=== PATIENT | male | born 1970 | race Caucasian/White ===

== ENCOUNTER 2016-05-06 10:35 | Outpatient (RCR) | payer MEDICARE, MEDICAID ==
[2016-02-12 11:25] LABS: BASOPHILS % (AUTO) 0 % (0-10); EOSINOPHILS # (AUTO) 0.2 10^3/uL (0.0-0.3); EOSINOPHILS % (AUTO) 3 % (0-10); LYMPHOCYTES # (AUTO) 0.3 X 10^3 (1.0-4.0); LYMPHOCYTES % (AUTO) 5 % (12-44); MEAN CORPUSCULAR HEMOGLOBIN 29 PG (25-34); MEAN CORPUSCULAR HGB CONC 32 G/DL (32-36); MEAN CORPUSCULAR VOLUME 90 FL (80-99); MEAN PLATELET VOLUME 10.4 FL (7.4-10.4); MONOCYTES # (AUTO) 0.4 X 10^3 (0.0-1.0); MONOCYTES % (AUTO) 6 % (0-12); NEUTROPHILS % (AUTO) 86 % (42-75); PLATELET COUNT 205 10^3/uL (130-400); RED BLOOD COUNT 3.12 10^6/uL (4.35-5.85); WHITE BLOOD COUNT 5.8 10^3/uL (4.3-11.0)
[2016-02-19 12:23] LABS: BASOPHILS % (AUTO) 0 % (0-10); EOSINOPHILS # (AUTO) 0.2 10^3/uL (0.0-0.3); EOSINOPHILS % (AUTO) 5 % (0-10); LYMPHOCYTES # (AUTO) 0.7 X 10^3 (1.0-4.0); LYMPHOCYTES % (AUTO) 15 % (12-44); MEAN CORPUSCULAR HEMOGLOBIN 29 PG (25-34); MEAN CORPUSCULAR HGB CONC 32 G/DL (32-36); MEAN CORPUSCULAR VOLUME 90 FL (80-99); MEAN PLATELET VOLUME 10.1 FL (7.4-10.4); MONOCYTES # (AUTO) 0.5 X 10^3 (0.0-1.0); MONOCYTES % (AUTO) 11 % (0-12); NEUTROPHILS # (AUTO) 3.3 X 10^3 (1.8-7.8); NEUTROPHILS % (AUTO) 68 % (42-75); PLATELET COUNT 214 10^3/uL (130-400); RED BLOOD COUNT 3.45 10^6/uL (4.35-5.85); RED CELL DISTRIBUTION WIDTH 15.7 % (10.0-14.5); WHITE BLOOD COUNT 4.8 10^3/uL (4.3-11.0)
[2016-02-26 13:42] LABS: BASOPHILS % (AUTO) 0 % (0-10); EOSINOPHILS # (AUTO) 0.2 10^3/uL (0.0-0.3); EOSINOPHILS % (AUTO) 4 % (0-10); LYMPHOCYTES # (AUTO) 0.6 X 10^3 (1.0-4.0); LYMPHOCYTES % (AUTO) 13 % (12-44); MEAN CORPUSCULAR HEMOGLOBIN 29 PG (25-34); MEAN CORPUSCULAR HGB CONC 32 G/DL (32-36); MEAN CORPUSCULAR VOLUME 90 FL (80-99); MEAN PLATELET VOLUME 10.8 FL (7.4-10.4); MONOCYTES # (AUTO) 0.5 X 10^3 (0.0-1.0); MONOCYTES % (AUTO) 11 % (0-12); NEUTROPHILS # (AUTO) 3.4 X 10^3 (1.8-7.8); NEUTROPHILS % (AUTO) 72 % (42-75); PLATELET COUNT 213 10^3/uL (130-400); RED BLOOD COUNT 3.52 10^6/uL (4.35-5.85); RED CELL DISTRIBUTION WIDTH 15.5 % (10.0-14.5); WHITE BLOOD COUNT 4.7 10^3/uL (4.3-11.0)
[2016-03-04 11:39] LABS: BASOPHILS % (AUTO) 1 % (0-10); EOSINOPHILS # (AUTO) 0.2 10^3/uL (0.0-0.3); EOSINOPHILS % (AUTO) 5 % (0-10); LYMPHOCYTES # (AUTO) 0.6 X 10^3 (1.0-4.0); LYMPHOCYTES % (AUTO) 13 % (12-44); MEAN CORPUSCULAR HEMOGLOBIN 29 PG (25-34); MEAN CORPUSCULAR HGB CONC 32 G/DL (32-36); MEAN CORPUSCULAR VOLUME 89 FL (80-99); MEAN PLATELET VOLUME 10.3 FL (7.4-10.4); MONOCYTES # (AUTO) 0.5 X 10^3 (0.0-1.0); MONOCYTES % (AUTO) 11 % (0-12); NEUTROPHILS % (AUTO) 71 % (42-75); PLATELET COUNT 206 10^3/uL (130-400); RED BLOOD COUNT 3.75 10^6/uL (4.35-5.85); RED CELL DISTRIBUTION WIDTH 14.9 % (10.0-14.5); WHITE BLOOD COUNT 4.3 10^3/uL (4.3-11.0)
[2016-03-11 13:05] LABS: BASOPHILS % (AUTO) 0 % (0-10); EOSINOPHILS # (AUTO) 0.2 10^3/uL (0.0-0.3); EOSINOPHILS % (AUTO) 4 % (0-10); LYMPHOCYTES # (AUTO) 0.6 X 10^3 (1.0-4.0); LYMPHOCYTES % (AUTO) 13 % (12-44); MEAN CORPUSCULAR HEMOGLOBIN 28 PG (25-34); MEAN CORPUSCULAR HGB CONC 32 G/DL (32-36); MEAN CORPUSCULAR VOLUME 89 FL (80-99); MEAN PLATELET VOLUME 10.5 FL (7.4-10.4); MONOCYTES # (AUTO) 0.5 X 10^3 (0.0-1.0); MONOCYTES % (AUTO) 11 % (0-12); NEUTROPHILS # (AUTO) 3.4 X 10^3 (1.8-7.8); NEUTROPHILS % (AUTO) 72 % (42-75); PLATELET COUNT 220 10^3/uL (130-400); RED BLOOD COUNT 3.87 10^6/uL (4.35-5.85); RED CELL DISTRIBUTION WIDTH 14.9 % (10.0-14.5); RETICULOCYTE % 2.79 % (0.50-2.40); WHITE BLOOD COUNT 4.8 10^3/uL (4.3-11.0)
[2016-03-11 13:36] LABS: ALBUMIN 3.6 G/DL (3.2-4.5); BILIRUBIN,TOTAL 0.4 MG/DL (0.1-1.0); CALCIUM 8.7 MG/DL (8.5-10.1); CREATININE SERUM 3.41 MG/DL (0.60-1.30); POTASSIUM 3.4 MMOL/L (3.6-5.0)
[2016-03-18 12:26] LABS: BASOPHILS % (AUTO) 0 % (0-10); EOSINOPHILS # (AUTO) 0.2 10^3/uL (0.0-0.3); EOSINOPHILS % (AUTO) 3 % (0-10); LYMPHOCYTES # (AUTO) 0.7 X 10^3 (1.0-4.0); LYMPHOCYTES % (AUTO) 14 % (12-44); MEAN CORPUSCULAR HEMOGLOBIN 29 PG (25-34); MEAN CORPUSCULAR HGB CONC 33 G/DL (32-36); MEAN CORPUSCULAR VOLUME 89 FL (80-99); MEAN PLATELET VOLUME 10.4 FL (7.4-10.4); MONOCYTES # (AUTO) 0.6 X 10^3 (0.0-1.0); MONOCYTES % (AUTO) 13 % (0-12); NEUTROPHILS # (AUTO) 3.4 X 10^3 (1.8-7.8); NEUTROPHILS % (AUTO) 70 % (42-75); PLATELET COUNT 175 10^3/uL (130-400); RED BLOOD COUNT 3.65 10^6/uL (4.35-5.85); RED CELL DISTRIBUTION WIDTH 14.3 % (10.0-14.5); WHITE BLOOD COUNT 4.8 10^3/uL (4.3-11.0)
[2016-03-25 14:28] LABS: BASOPHILS % (AUTO) 0 % (0-10); EOSINOPHILS # (AUTO) 0.2 10^3/uL (0.0-0.3); EOSINOPHILS % (AUTO) 4 % (0-10); LYMPHOCYTES # (AUTO) 0.9 X 10^3 (1.0-4.0); LYMPHOCYTES % (AUTO) 18 % (12-44); MEAN CORPUSCULAR HEMOGLOBIN 29 PG (25-34); MEAN CORPUSCULAR HGB CONC 32 G/DL (32-36); MEAN CORPUSCULAR VOLUME 88 FL (80-99); MEAN PLATELET VOLUME 10.1 FL (7.4-10.4); MONOCYTES # (AUTO) 0.8 X 10^3 (0.0-1.0); MONOCYTES % (AUTO) 16 % (0-12); NEUTROPHILS # (AUTO) 3.2 X 10^3 (1.8-7.8); NEUTROPHILS % (AUTO) 62 % (42-75); PLATELET COUNT 235 10^3/uL (130-400); RED BLOOD COUNT 3.96 10^6/uL (4.35-5.85); RED CELL DISTRIBUTION WIDTH 14.3 % (10.0-14.5); WHITE BLOOD COUNT 5.1 10^3/uL (4.3-11.0)
[2016-03-31 14:23] LABS: BASOPHILS % (AUTO) 0 % (0-10); EOSINOPHILS # (AUTO) 0.2 10^3/uL (0.0-0.3); EOSINOPHILS % (AUTO) 4 % (0-10); LYMPHOCYTES # (AUTO) 0.8 X 10^3 (1.0-4.0); LYMPHOCYTES % (AUTO) 13 % (12-44); MEAN CORPUSCULAR HEMOGLOBIN 29 PG (25-34); MEAN CORPUSCULAR HGB CONC 33 G/DL (32-36); MEAN CORPUSCULAR VOLUME 87 FL (80-99); MEAN PLATELET VOLUME 10.3 FL (7.4-10.4); MONOCYTES # (AUTO) 0.5 X 10^3 (0.0-1.0); MONOCYTES % (AUTO) 9 % (0-12); NEUTROPHILS # (AUTO) 4.2 X 10^3 (1.8-7.8); NEUTROPHILS % (AUTO) 73 % (42-75); PLATELET COUNT 202 10^3/uL (130-400); RED BLOOD COUNT 3.99 10^6/uL (4.35-5.85); RED CELL DISTRIBUTION WIDTH 14.5 % (10.0-14.5); WHITE BLOOD COUNT 5.7 10^3/uL (4.3-11.0)
[2016-04-08 12:30] LABS: BASOPHILS % (AUTO) 1 % (0-10); EOSINOPHILS # (AUTO) 0.1 10^3/uL (0.0-0.3); EOSINOPHILS % (AUTO) 3 % (0-10); LYMPHOCYTES # (AUTO) 0.7 X 10^3 (1.0-4.0); LYMPHOCYTES % (AUTO) 17 % (12-44); MEAN CORPUSCULAR HEMOGLOBIN 29 PG (25-34); MEAN CORPUSCULAR HGB CONC 34 G/DL (32-36); MEAN CORPUSCULAR VOLUME 85 FL (80-99); MEAN PLATELET VOLUME 10.9 FL (7.4-10.4); MONOCYTES # (AUTO) 0.6 X 10^3 (0.0-1.0); MONOCYTES % (AUTO) 14 % (0-12); NEUTROPHILS # (AUTO) 2.8 X 10^3 (1.8-7.8); NEUTROPHILS % (AUTO) 66 % (42-75); PLATELET COUNT 184 10^3/uL (130-400); RED BLOOD COUNT 4.34 10^6/uL (4.35-5.85); RED CELL DISTRIBUTION WIDTH 13.6 % (10.0-14.5); WHITE BLOOD COUNT 4.3 10^3/uL (4.3-11.0)
[2016-04-15 09:00] LABS: BASOPHILS % (AUTO) 0 % (0-10); EOSINOPHILS # (AUTO) 0.1 10^3/uL (0.0-0.3); EOSINOPHILS % (AUTO) 2 % (0-10); LYMPHOCYTES # (AUTO) 0.6 X 10^3 (1.0-4.0); LYMPHOCYTES % (AUTO) 13 % (12-44); MEAN CORPUSCULAR HEMOGLOBIN 29 PG (25-34); MEAN CORPUSCULAR HGB CONC 33 G/DL (32-36); MEAN CORPUSCULAR VOLUME 86 FL (80-99); MONOCYTES # (AUTO) 0.6 X 10^3 (0.0-1.0); MONOCYTES % (AUTO) 12 % (0-12); NEUTROPHILS # (AUTO) 3.5 X 10^3 (1.8-7.8); NEUTROPHILS % (AUTO) 73 % (42-75); PLATELET COUNT 189 10^3/uL (130-400); RED CELL DISTRIBUTION WIDTH 13.4 % (10.0-14.5); WHITE BLOOD COUNT 4.8 10^3/uL (4.3-11.0)
[2016-04-22 12:24] LABS: BASOPHILS % (AUTO) 0 % (0-10); EOSINOPHILS # (AUTO) 0.3 10^3/uL (0.0-0.3); EOSINOPHILS % (AUTO) 5 % (0-10); LYMPHOCYTES # (AUTO) 0.6 X 10^3 (1.0-4.0); LYMPHOCYTES % (AUTO) 8 % (12-44); MEAN CORPUSCULAR HGB CONC 33 G/DL (32-36); MEAN CORPUSCULAR VOLUME 86 FL (80-99); MEAN PLATELET VOLUME 10.6 FL (7.4-10.4); MONOCYTES # (AUTO) 0.6 X 10^3 (0.0-1.0); MONOCYTES % (AUTO) 9 % (0-12); NEUTROPHILS # (AUTO) 5.3 X 10^3 (1.8-7.8); NEUTROPHILS % (AUTO) 78 % (42-75); PLATELET COUNT 173 10^3/uL (130-400); RED BLOOD COUNT 4.04 10^6/uL (4.35-5.85); RED CELL DISTRIBUTION WIDTH 13.4 % (10.0-14.5); WHITE BLOOD COUNT 6.8 10^3/uL (4.3-11.0)
[2016-04-22 12:25] LABS: MEAN CORPUSCULAR HEMOGLOBIN 28 PG (25-34)
[2016-04-29 08:57] LABS: BASOPHILS % (AUTO) 0 % (0-10); EOSINOPHILS # (AUTO) 0.2 10^3/uL (0.0-0.3); EOSINOPHILS % (AUTO) 4 % (0-10); LYMPHOCYTES # (AUTO) 0.6 X 10^3 (1.0-4.0); LYMPHOCYTES % (AUTO) 16 % (12-44); MEAN CORPUSCULAR HEMOGLOBIN 29 PG (25-34); MEAN CORPUSCULAR HGB CONC 33 G/DL (32-36); MEAN CORPUSCULAR VOLUME 87 FL (80-99); MEAN PLATELET VOLUME 11.6 FL (7.4-10.4); MONOCYTES # (AUTO) 0.3 X 10^3 (0.0-1.0); MONOCYTES % (AUTO) 8 % (0-12); NEUTROPHILS # (AUTO) 2.9 X 10^3 (1.8-7.8); NEUTROPHILS % (AUTO) 72 % (42-75); PLATELET COUNT 149 10^3/uL (130-400); RED BLOOD COUNT 3.59 10^6/uL (4.35-5.85); RED CELL DISTRIBUTION WIDTH 13.8 % (10.0-14.5)
[~2016-05-06 10:35] MED LIST: ACID1TAB PO; CITA20TA7 PO; DARBEPOETIN 40 MCG/ML (ARANESP) 1 ML VIAL SC SCH; DOCU100C37 PO; FURO-124 PO; GABA-488 PO; GUAI600T43 PO; HYDR-3731 PO; INSU100I14 SQ; INSU100I29 SQ; INSU100V SQ; INSU100V5 SQ; LEVO750T39 PO; LIDO700A6 TP; LORA0.5T PO; METO-270 PO; METO5TAB2 PO; MUPI22OI2 TOP; OMEP20CA12 PO; PREG75CA PO; SENN-20 PO; SENN-36 PO; SODI15OR PO; SUCR1TAB PO; TRAM50TA2 PO
[2016-05-06 10:49] LABS: BASOPHILS % (AUTO) 0 % (0-10); EOSINOPHILS # (AUTO) 0.3 10^3/uL (0.0-0.3); EOSINOPHILS % (AUTO) 5 % (0-10); LYMPHOCYTES # (AUTO) 0.6 X 10^3 (1.0-4.0); LYMPHOCYTES % (AUTO) 11 % (12-44); MEAN CORPUSCULAR HEMOGLOBIN 29 PG (25-34); MEAN CORPUSCULAR HGB CONC 34 G/DL (32-36); MEAN CORPUSCULAR VOLUME 85 FL (80-99); MEAN PLATELET VOLUME 10.1 FL (7.4-10.4); MONOCYTES # (AUTO) 0.5 X 10^3 (0.0-1.0); MONOCYTES % (AUTO) 9 % (0-12); NEUTROPHILS # (AUTO) 4.2 X 10^3 (1.8-7.8); NEUTROPHILS % (AUTO) 74 % (42-75); PLATELET COUNT 199 10^3/uL (130-400); RED BLOOD COUNT 4.03 10^6/uL (4.35-5.85); RETICULOCYTE % 2.01 % (0.50-2.40); WHITE BLOOD COUNT 5.7 10^3/uL (4.3-11.0)
[2016-05-06 11:35] LABS: ALBUMIN 3.8 G/DL (3.2-4.5); BILIRUBIN,TOTAL 0.4 MG/DL (0.1-1.0); CALCIUM 8.6 MG/DL (8.5-10.1); CREATININE SERUM 5.52 MG/DL (0.60-1.30); POTASSIUM 3.9 MMOL/L (3.6-5.0); TOTAL PROTEIN 6.4 G/DL (6.4-8.2)
== END 2016-05-12 | disposition home or self-care (01) ==
LOC: ONC 10:35
PROVIDERS: ATTEND Internal Medicine Hematology & Oncology
DX: N18.3 Chronic kidney disease, stage 3 (moderate) (principal); D63.1 Anemia in chronic kidney disease; Z79.899 Other long term (current) drug therapy
CPT/HCPCS: 36415; 80053; 80069; 82728; 84100; 85025; 85045; 96372; 99213

== ENCOUNTER 2016-05-07 12:09 | Outpatient (RCR) | payer MEDICAID, MEDICARE ==
[2016-02-12 12:02] LABS: ALBUMIN 3.5 G/DL (3.2-4.5); CALCIUM 8.6 MG/DL (8.5-10.1); CREATININE SERUM 3.35 MG/DL (0.60-1.30); PHOSPHORUS 2.5 MG/DL (2.3-4.7); POTASSIUM 3.3 MMOL/L (3.6-5.0)
[2016-02-19 12:49] LABS: ALBUMIN 3.6 G/DL (3.2-4.5); CALCIUM 8.6 MG/DL (8.5-10.1); CREATININE SERUM 3.06 MG/DL (0.60-1.30); PHOSPHORUS 3.8 MG/DL (2.3-4.7); POTASSIUM 3.3 MMOL/L (3.6-5.0)
[2016-02-26 13:59] LABS: ALBUMIN 3.6 G/DL (3.2-4.5); CALCIUM 8.6 MG/DL (8.5-10.1); CREATININE SERUM 3.34 MG/DL (0.60-1.30); PHOSPHORUS 3.6 MG/DL (2.3-4.7); POTASSIUM 3.2 MMOL/L (3.6-5.0)
[2016-03-04 12:46] LABS: ALBUMIN 3.7 G/DL (3.2-4.5); CALCIUM 8.6 MG/DL (8.5-10.1); CREATININE SERUM 3.53 MG/DL (0.60-1.30); PHOSPHORUS 2.8 MG/DL (2.3-4.7); POTASSIUM 3.3 MMOL/L (3.6-5.0)
[2016-03-11 13:32] LABS: ALBUMIN 3.6 G/DL (3.2-4.5); CALCIUM 8.5 MG/DL (8.5-10.1); CREATININE SERUM 3.41 MG/DL (0.60-1.30); PHOSPHORUS 4.8 MG/DL (2.3-4.7); POTASSIUM 3.3 MMOL/L (3.6-5.0)
[2016-03-18 12:55] LABS: ALBUMIN 3.5 G/DL (3.2-4.5); CALCIUM 8.4 MG/DL (8.5-10.1); CREATININE SERUM 3.99 MG/DL (0.60-1.30); PHOSPHORUS 3.6 MG/DL (2.3-4.7); POTASSIUM 3.5 MMOL/L (3.6-5.0)
[2016-03-25 15:10] LABS: ALBUMIN 3.8 G/DL (3.2-4.5); CALCIUM 8.7 MG/DL (8.5-10.1); CREATININE SERUM 4.09 MG/DL (0.60-1.30); PHOSPHORUS 3.8 MG/DL (2.3-4.7); POTASSIUM 3.6 MMOL/L (3.6-5.0)
[2016-03-31 15:02] LABS: ALBUMIN 3.7 G/DL (3.2-4.5); CREATININE SERUM 5.24 MG/DL (0.60-1.30); PHOSPHORUS 3.8 MG/DL (2.3-4.7); POTASSIUM 3.9 MMOL/L (3.6-5.0)
[2016-04-08 12:53] LABS: ALBUMIN 3.8 G/DL (3.2-4.5); CALCIUM 8.7 MG/DL (8.5-10.1); CREATININE SERUM 4.45 MG/DL (0.60-1.30); PHOSPHORUS 3.5 MG/DL (2.3-4.7); POTASSIUM 3.6 MMOL/L (3.6-5.0)
[2016-04-15 09:43] LABS: ALBUMIN 3.8 G/DL (3.2-4.5); CALCIUM 8.9 MG/DL (8.5-10.1); CREATININE SERUM 4.64 MG/DL (0.60-1.30); PHOSPHORUS 3.5 MG/DL (2.3-4.7); POTASSIUM 3.8 MMOL/L (3.6-5.0)
[2016-04-22 13:40] LABS: ALBUMIN 3.7 G/DL (3.2-4.5); CALCIUM 8.4 MG/DL (8.5-10.1); CREATININE SERUM 3.35 MG/DL (0.60-1.30); PHOSPHORUS 3.1 MG/DL (2.3-4.7); POTASSIUM 3.6 MMOL/L (3.6-5.0)
[2016-04-29 09:14] LABS: ALBUMIN 3.5 G/DL (3.2-4.5); CALCIUM 8.2 MG/DL (8.5-10.1); CREATININE SERUM 6.22 MG/DL (0.60-1.30); PHOSPHORUS 5.1 MG/DL (2.3-4.7); POTASSIUM 4.7 MMOL/L (3.6-5.0)
[~2016-05-07 12:09] MED LIST changes: -DARBEPOETIN 40 MCG/ML (ARANESP) 1 ML VIAL SC SCH
== END 2016-05-12 | disposition home or self-care (01) ==
LOC: LAB 12:09
PROVIDERS: ATTEND Internal Medicine Nephrology
DX: N17.9 Acute kidney failure, unspecified (principal); N18.9 Chronic kidney disease, unspecified; E87.5 Hyperkalemia; R60.9 Edema, unspecified; R80.9 Proteinuria, unspecified
CPT/HCPCS: 36415; 80069; 84100

== ENCOUNTER 2016-06-11 02:45 | Outpatient (RCR) | payer MEDICARE, MEDICAID ==
[2016-05-14 14:56] LABS: ALBUMIN 3.7 G/DL (3.2-4.5); CALCIUM 8.8 MG/DL (8.5-10.1); CREATININE SERUM 5.35 MG/DL (0.60-1.30); PHOSPHORUS 4.4 MG/DL (2.3-4.7); POTASSIUM 3.7 MMOL/L (3.6-5.0)
[2016-05-28 11:56] LABS: ALBUMIN 3.4 G/DL (3.2-4.5); CALCIUM 8.3 MG/DL (8.5-10.1); CREATININE SERUM 6.51 MG/DL (0.60-1.30); PHOSPHORUS 4.9 MG/DL (2.3-4.7); POTASSIUM 3.6 MMOL/L (3.6-5.0)
[2016-06-11 11:32] LABS: ALBUMIN 3.3 G/DL (3.2-4.5); CREATININE SERUM 6.01 MG/DL (0.60-1.30); PHOSPHORUS 5.4 MG/DL (2.3-4.7)
[2016-06-11 11:38] LABS: POTASSIUM 4.1 MMOL/L (3.6-5.0)
== END 2016-07-02 11:05 | disposition home or self-care (01) ==
LOC: LAB 02:45
PROVIDERS: ATTEND Internal Medicine Nephrology
DX: N17.9 Acute kidney failure, unspecified (principal); N18.9 Chronic kidney disease, unspecified; E87.5 Hyperkalemia; R60.9 Edema, unspecified; R80.9 Proteinuria, unspecified
CPT/HCPCS: 36415; 80069

== ENCOUNTER 2016-07-01 13:21 | Outpatient (RCR) | payer MEDICARE, MEDICAID ==
[2016-05-14 14:38] LABS: BASOPHILS % (AUTO) 0 % (0-10); EOSINOPHILS # (AUTO) 0.1 10^3/uL (0.0-0.3); EOSINOPHILS % (AUTO) 2 % (0-10); LYMPHOCYTES # (AUTO) 0.5 X 10^3 (1.0-4.0); LYMPHOCYTES % (AUTO) 8 % (12-44); MEAN CORPUSCULAR HEMOGLOBIN 29 PG (25-34); MEAN CORPUSCULAR HGB CONC 35 G/DL (32-36); MEAN CORPUSCULAR VOLUME 83 FL (80-99); MEAN PLATELET VOLUME 11.6 FL (7.4-10.4); MONOCYTES # (AUTO) 0.6 X 10^3 (0.0-1.0); MONOCYTES % (AUTO) 9 % (0-12); NEUTROPHILS % (AUTO) 80 % (42-75); PLATELET COUNT 177 10^3/uL (130-400); RED CELL DISTRIBUTION WIDTH 14.6 % (10.0-14.5); WHITE BLOOD COUNT 6.2 10^3/uL (4.3-11.0)
[2016-05-28 11:17] LABS: BASOPHILS % (AUTO) 0 % (0-10); EOSINOPHILS # (AUTO) 0.1 10^3/uL (0.0-0.3); EOSINOPHILS % (AUTO) 2 % (0-10); LYMPHOCYTES % (AUTO) 14 % (12-44); MEAN CORPUSCULAR HEMOGLOBIN 29 PG (25-34); MEAN CORPUSCULAR HGB CONC 35 G/DL (32-36); MEAN CORPUSCULAR VOLUME 83 FL (80-99); MEAN PLATELET VOLUME 10.9 FL (7.4-10.4); MONOCYTES # (AUTO) 0.9 X 10^3 (0.0-1.0); MONOCYTES % (AUTO) 14 % (0-12); NEUTROPHILS # (AUTO) 4.6 X 10^3 (1.8-7.8); NEUTROPHILS % (AUTO) 69 % (42-75); PLATELET COUNT 241 10^3/uL (130-400); RED BLOOD COUNT 4.16 10^6/uL (4.35-5.85); RED CELL DISTRIBUTION WIDTH 14.9 % (10.0-14.5); WHITE BLOOD COUNT 6.6 10^3/uL (4.3-11.0)
[2016-06-11 10:48] LABS: BASOPHILS % (AUTO) 0 % (0-10); EOSINOPHILS # (AUTO) 0.2 10^3/uL (0.0-0.3); EOSINOPHILS % (AUTO) 3 % (0-10); LYMPHOCYTES # (AUTO) 0.8 X 10^3 (1.0-4.0); LYMPHOCYTES % (AUTO) 13 % (12-44); MEAN CORPUSCULAR HEMOGLOBIN 29 PG (25-34); MEAN CORPUSCULAR HGB CONC 35 G/DL (32-36); MEAN CORPUSCULAR VOLUME 83 FL (80-99); MEAN PLATELET VOLUME 11.3 FL (7.4-10.4); MONOCYTES # (AUTO) 0.7 X 10^3 (0.0-1.0); MONOCYTES % (AUTO) 12 % (0-12); NEUTROPHILS # (AUTO) 4.3 X 10^3 (1.8-7.8); NEUTROPHILS % (AUTO) 72 % (42-75); PLATELET COUNT 186 10^3/uL (130-400); RED BLOOD COUNT 3.88 10^6/uL (4.35-5.85); RED CELL DISTRIBUTION WIDTH 14.6 % (10.0-14.5); WHITE BLOOD COUNT 5.9 10^3/uL (4.3-11.0)
[~2016-07-01 13:21] MED LIST changes: +DARBEPOETIN 40 MCG/ML (ARANESP) 1 ML VIAL SC SCH
[2016-07-01 13:47] LABS: BASOPHILS % (AUTO) 0 % (0-10); EOSINOPHILS # (AUTO) 0.1 10^3/uL (0.0-0.3); EOSINOPHILS % (AUTO) 2 % (0-10); LYMPHOCYTES # (AUTO) 0.7 X 10^3 (1.0-4.0); LYMPHOCYTES % (AUTO) 10 % (12-44); MEAN CORPUSCULAR HEMOGLOBIN 29 PG (25-34); MEAN CORPUSCULAR HGB CONC 34 G/DL (32-36); MEAN CORPUSCULAR VOLUME 84 FL (80-99); MEAN PLATELET VOLUME 11.3 FL (7.4-10.4); MONOCYTES # (AUTO) 0.8 X 10^3 (0.0-1.0); MONOCYTES % (AUTO) 10 % (0-12); NEUTROPHILS # (AUTO) 5.8 X 10^3 (1.8-7.8); NEUTROPHILS % (AUTO) 78 % (42-75); PLATELET COUNT 229 10^3/uL (130-400); RED BLOOD COUNT 3.62 10^6/uL (4.35-5.85); RED CELL DISTRIBUTION WIDTH 14.9 % (10.0-14.5); WHITE BLOOD COUNT 7.4 10^3/uL (4.3-11.0)
== END 2016-08-12 | disposition home or self-care (01) ==
LOC: ONC 13:21
PROVIDERS: ATTEND Internal Medicine Hematology & Oncology
DX: N18.3 Chronic kidney disease, stage 3 (moderate) (principal); D63.1 Anemia in chronic kidney disease; Z79.899 Other long term (current) drug therapy
CPT/HCPCS: 36415; 80069; 85025; 96372

== ENCOUNTER → 2016-09-07 | Outpatient (CLI) | payer MEDICARE, MEDICAID ==
[~2016-09-07] MED LIST changes: -DARBEPOETIN 40 MCG/ML (ARANESP) 1 ML VIAL SC SCH
--- NOTE | 2016-09-07 11:38 | Diagnostic Imaging Report ---
PROCEDURE: MRI lumbar spine. TECHNIQUE: Multiplanar, multisequence MRI of the lumbar spine was performed without contrast. INDICATION: Low back pain. COMPARISON: None. FINDINGS: There are 5 lumbar-type vertebral bodies presumed for the purposes of this report. Normal alignment. Vertebral body heights are maintained. No abnormal bone marrow signal. No abnormal signal in the conus which terminates at L1. Normal configuration of the cauda equina. The visualized paravertebral soft tissues are unremarkable. Disc desiccation and Schmorl's nodes at L1-L2. The intervertebral discs are otherwise well preserved. There is no substantial spinal canal or lateral recess narrowing throughout the lumbar spine. Degenerative facet arthropathy contributes to moderate neuroforaminal narrowing on the right at L5-S1 and bilaterally at L4-L5. IMPRESSION: 1. Spondylotic changes, primarily facet arthropathy, result in moderate neuroforaminal narrowing at L4-L5 and L5-S1. 2. No substantial spinal canal or lateral recess narrowing. 3. No acute osseous findings in the lumbar spine. Dictated by: Dictated on workstation # [id number]
== END ==
LOC: RAD 10:19
PROVIDERS: ATTEND Nurse Practitioner Community Health
DX: M47.816 Spondylosis without myelopathy or radiculopathy, lumbar region (principal)
CPT/HCPCS: 72148

== ENCOUNTER 2017-06-07 18:18 | Emergency (ER) | payer MEDICARE, MEDICAID ==
[~2017-06-07] VITALS: Ht 167.6 cm; Wt 98.4 kg
[~2017-06-07 18:18] MED LIST changes: -METO-270 PO; +METO-387 PO
--- NOTE | 2017-06-07 19:38 | ED Upper Extremity ---
General Chief Complaint: Upper Extremity Stated Complaint: L WRIST/PALM INJ Nursing Triage Note: AMBLUATED TO ROOM 05. COMPLAINS OF LEFT WRIST PAIN AFTER FALLING 2 FEET OFF A LADDER ON TUESDAY. DENIES HITTING HEAD OR NECK PAIN. Nursing Sepsis Screen: No Definite Risk Source: patient Exam Limitations: no limitations History of Present Illness Date Seen by Provider: Jun 07, 2017 Time Seen by Provider: 19:36 Initial Comments To ER with left wrist pain. He fell 3 days ago off of a short ladder about 2 feet. States that he banged up his legs and arm but those have resolved and there is no residual pain. However, he did have some initial pain to the left wrist and that pain has actually gotten worse. He does have a bit of swelling over the volar ulnar side of the left wrist. He is also concerned because he has a maturing dialysis fistula in the left upper arm that has not yet been used but he wants to make sure this is okay and undamaged. No pain or injury to this area. Onset: other Severity: moderate Pain/Injury Location: left wrist Method of Injury: fell Modifying Factors: Worse With Movement Allergies and Home Medications Allergies Coded Allergies: codeine (Verified Allergy, Intermediate, NAUSEA, 04/27/15) pt states he has nausea and vomiting from Codeine Penicillins (Unverified Allergy, Mild, 04/24/15) hydrocodone (Verified Adverse Reaction, Unknown, NAUSEA, 11/22/15) oxycodone (Unverified Adverse Reaction, Unknown, 11/22/15) Home Medications Furosemide 40 Mg Tablet, 40 MG PO DAILY, (Reported) Insulin Aspart 300 Units/3 Ml Solution, 8 UNITS SQ 0800,1200, (Reported) BREAKFAST AND LUNCH Insulin Aspart 300 Units/3 Ml Solution, 7 UNITS SQ DAILY@1700, (Reported) Insulin Aspart 300 Units/3 Ml Solution, SQ SLIDING/SCALE, (Reported) USES IN ADDITION TO SCHEDULED DOSAGES AC 2 HOURS AFTER MEALS Insulin Detemir 100 Unit/1 Ml Insuln.pen, 14 UNIT SQ HS, (Reported) Insulin Detemir 100 Unit/1 Ml Insuln.pen, 6 UNIT SQ DAILY, (Reported) Metoprolol Succinate 25 Mg Tab.er.24h, 25 MG PO DAILY, #30 Ref 5 Prescribed by: SARI HARRELL on 11/25/15 1106 Omeprazole 20 Mg Capsule.dr, 20 MG PO DAILY, (Reported) Pregabalin 75 Mg Capsule, 75 MG PO TID, (Reported) Sodium Polystyrene Sulfonate 15 Gm/60 Ml Oral.susp, 15 GM PO DAILY, #1 Ref 0 Prescribed by: SARI HARRELL on 11/25/15 1106 Constitutional: see HPI EENTM: see HPI Respiratory: no symptoms reported Cardiovascular: no symptoms reported Genitourinary: no symptoms reported Skin: no symptoms reported Psychiatric/Neurological: No Symptoms Reported Past Mjojlba-Tuotmv-Fdnwup Hx Patient Social History Type Used: Cigarettes Former Smoker, Quit: Nov 23, 2003 Recent Foreign Travel: No Contact w/Someone Who Travel: No Recent Infectious Disease Expo: No Recent Hopitalizations: No Immunizations Up To Date Tetanus Booster (TDap): Less than 5yrs PED Vaccines UTD: Yes Date of Pneumonia Vaccine: May 25, 2015 Date of Influenza Vaccine: Apr 20, 2015 Surgeries History of Surgeries: Yes Surgeries: Abdominal, Gallbladder, Orthopedic, Tonsillectomy, Tracheostomy, Vascular Surgery Respiratory History of Respiratory Disorde: Yes Respiratory Disorders: Pneumonia, Sleep Apnea Currently Using CPAP: Yes Cardiovascular History of Cardiac Disorders: Yes (NON-STEMI 02/2015 WITH MULTIORGAN FAILURE/ SHOCK FROM DKA/COMA) Cardiac Disorders: Chronic Edema/Swelling, Heart Murmur, Hypertension, Valvular Heart Disease Neurological History of Neurological Disord: Yes Neurological Disorders: Neuropathy Reproductive System Hx Reproductive Disorders: No Sexually Transmitted Disease: No HIV/AIDS: No Genitourinary Genitourinary Disorders: Bladder Infection, Renal Failure Gastrointestinal History of Gastrointestinal Di: Yes (+ HEMOCCULT DURING HOSPITALIZATION 02/2015 ) Gastrointestinal Disorders: Gastroesophageal Reflux, Pancreatitis, Ulcer Musculoskeletal History of Musculoskeletal Dis: Yes Musculoskeletal Disorders: Chronic Back Pain Endocrine History of Endocrine Disorders: Yes Endocrine Disorders: Diabetes, Insulin dep Cancer History of Cancer: No Psychosocial History of Psychiatric Problem: Yes Behavioral Health Disorders: Depression Integumentary History of Skin or Integumenta: No Blood Transfusions History of Blood Disorders: Yes (ANEMIA--S/P TRANSFUSION 02/2015) Adverse Reaction to a Blood Tr: No Family Medical History Family Medial History: FHx: emphysema 19 FATHER Physical Exam Vital Signs Vital Sign - Last 12Hours 06/07/17 18:23 Temp 98.0 Pulse 83 Resp 18 B/P (MAP) 133/80 (97) Pulse Ox 97 Capillary Refill : Less Than 3 Seconds General Appearance: WD/WN, no apparent distress HEENT: PERRL/EOMI, normal ENT inspection Neck: non-tender, full range of motion Elbow/Forearm: normal inspection, non-tender, Left (on the left upper arm proximal to the elbow there is a fistula present with palpable thrill.) Wrist: Yes normal inspection, Yes non-tender Hand: normal inspection, non-tender Neurologic/Psychiatric: alert, normal mood/affect, oriented x 3 Skin: normal color, warm/dry Progress/Results/Core Measures Results/Orders My Orders Orders - OLIVIA ROBERTSON APRN Wrist, Left, 3 Views Or More (06/07/17 19:35) Vital Signs/I&O Vital Sign - Last 12Hours 06/07/17 18:23 Temp 98.0 Pulse 83 Resp 18 B/P (MAP) 133/80 (97) Pulse Ox 97 Blood Pressure Mean: 97 Departure Impression Impression: Primary Impression: Wrist sprain Disposition: 01 HOME, SELF-CARE Condition: Stable Departure-Patient Inst. Decision time for Depature: 19:38 Referrals: SARI HARRELL MD (PCP/Family) Primary Care Physician Patient Instructions: Wrist Sprain (DC) Add. Discharge Instructions: 1. Return to ER for any concerns 2. Follow-up with your doctor next week 3. All discharge instructions reviewed with patient and/or family. Voiced understanding. OLIVIA ROBERTSON APRN Jun 07, 2017 19:38
--- NOTE | 2017-06-07 20:01 | Diagnostic Imaging Report ---
INDICATION: Wrist pain after fall off of a ladder. COMPARISON: None available. TECHNIQUE: 3 views of the left wrist. FINDINGS: There is no acute fracture or traumatic malalignment. Joint spaces are well-maintained. Extensive vascular calcifications are noted. IMPRESSION: No acute fracture. However, if there remains severe pain and high clinical suspicion for fracture, consider conservative management and followup radiographs in 7-10 days. Dictated by: Dictated on workstation # [id number]
[2017-06-07 20:06] VITALS: BP 133/80
== END 2017-06-07 20:06 | disposition home or self-care (01) ==
LOC: EDUNIT# 18:18 → ER 18:19
DX: S63.501A Unspecified sprain of right wrist, initial encounter (principal); G47.30 Sleep apnea, unspecified; I25.2 Old myocardial infarction; I10 Essential (primary) hypertension; K21.9 Gastro-esophageal reflux disease without esophagitis; E11.9 Type 2 diabetes mellitus without complications; F32.9 Major depressive disorder, single episode, unspecified; Z87.19 Personal history of other diseases of the digestive system; Z87.448 Personal history of other diseases of urinary system; Z88.5 Allergy status to narcotic agent; Z88.0 Allergy status to penicillin; Z79.4 Long term (current) use of insulin; Z87.891 Personal history of nicotine dependence; Z90.89 Acquired absence of other organs; Z93.0 Tracheostomy status; Z87.01 Personal history of pneumonia (recurrent); W11.XXXA Fall on and from ladder, initial encounter
CPT/HCPCS: 73110; 99282

== ENCOUNTER 2017-10-14 18:21 | Inpatient (IN) | payer MEDICARE, MEDICAID ==
[~2017-10-14] VITALS: Ht 167.6 cm; Wt 91.4 kg
[~2017-10-14 18:21] MED LIST changes: -CITA20TA7 PO; +CITA20TA9 PO
[2017-10-14] MEDS ORDERED: BUME2TAB3 PO (19:46)
[2017-10-14] MEDS ORDERED: INSU100V16 (19:46)
[2017-10-14] MEDS ORDERED: TAMS0.4C2 PO (19:46)
[2017-10-14] MEDS ORDERED: TRAZ100T92 PO (19:46)
[2017-10-14] MEDS ORDERED: FLUO20CA25 PO (19:46)
[2017-10-14 21:16] LABS: BASOPHILS % (AUTO) 0 % (0-10); EOSINOPHILS # (AUTO) 0.1 10^3/uL (0.0-0.3); EOSINOPHILS % (AUTO) 1 % (0-10); HEMATOCRIT 31 % (40-54); HEMOGLOBIN 11.1 G/DL (13.3-17.7); LYMPHOCYTES # (AUTO) 0.5 X 10^3 (1.0-4.0); LYMPHOCYTES % (AUTO) 5 % (12-44); MEAN CORPUSCULAR HEMOGLOBIN 32 PG (25-34); MEAN CORPUSCULAR HGB CONC 36 G/DL (32-36); MEAN CORPUSCULAR VOLUME 88 FL (80-99); MEAN PLATELET VOLUME 11.6 FL (7.4-10.4); MONOCYTES # (AUTO) 1.2 X 10^3 (0.0-1.0); MONOCYTES % (AUTO) 10 % (0-12); NEUTROPHILS % (AUTO) 85 % (42-75); PLATELET COUNT 138 10^3/uL (130-400); RED BLOOD COUNT 3.52 10^6/uL (4.35-5.85); RED CELL DISTRIBUTION WIDTH 14.2 % (10.0-14.5); WHITE BLOOD COUNT 11.8 10^3/uL (4.3-11.0)
[2017-10-14 21:37] LABS: INR 1.1 (0.8-1.4)
[2017-10-14 21:39] LABS: ALBUMIN 3.8 GM/DL (3.2-4.5); BAND NEUTROPHILS 3 %; BASOPHILS % (MANUAL) 0 %; BILIRUBIN,TOTAL 0.5 MG/DL (0.1-1.0); CALCIUM 10.3 MG/DL (8.5-10.1); CREATININE SERUM 5.28 MG/DL (0.60-1.30); EOSINOPHILS % (MANUAL) 0 %; ERYTHROCYTE SEDIMENTATION RATE 34 MM/HR (0-15); LYMPHOCYTES % (MANUAL) 2 %; MONOCYTES % (MANUAL) 8 %; NEUTROPHILS % (MANUAL) 87 %; POTASSIUM 3.1 MMOL/L (3.6-5.0); RBC MORPH NORMAL; TOTAL PROTEIN 6.8 GM/DL (6.4-8.2)
--- NOTE | 2017-10-14 22:10 | Diagnostic Imaging Report ---
PROCEDURE: CT left lower extremity without contrast. TECHNIQUE: Multiple contiguous axial images were obtained through the left lower extremity without the use of intravenous contrast. Sagittal and coronal reformations were then performed. INDICATION: Wound on bottom of left foot. History of end-stage renal disease on dialysis along with neuropathy. There is rather pronounced generalized edema about the soft tissues of the foot and ankle. Definitive well encapsulated fluid collection could not be demonstrated on noncontrast imaging. There is slightly more focal edema suggested at the plantar aspect of the region of the great toe. The osseous structures demonstrate no acute bony abnormality. No carlin erosive or destructive changes. Vascular calcification is present. IMPRESSION: Rather diffuse edema about the visualized soft tissues. Definitive large encapsulated drainable abscess is not suggested. No carlin bony destructive type change. However, MRI would be a more sensitive method for assessment of potential underlying osteomyelitis, if warranted. Dictated by: Dictated on workstation # [id number]
[2017-10-14] MEDS ORDERED: fentaNYL INJECTION 100 MCG/2 ML AMP IVP STA (22:27)
[2017-10-14] MEDS ORDERED: VANCOMYCIN INJECTION 1,000 MG in NS (IVPB) 250 ML IV ONE (22:30)
--- NOTE | 2017-10-14 22:33 | Diagnostic Imaging Report ---
INDICATION: Wound on bottom of foot. End-stage renal disease. TECHNIQUE: 3 views of the left foot CORRELATION STUDY: None FINDINGS: There is rather prominent soft tissue swelling present. Vascular calcifications. No acute bony abnormality or carlin bony destructive type change. Prominent calcaneal spur formation. IMPRESSION: 1. Negative for acute findings of the foot. No carlin bony destructive type change. Soft tissue swelling. Dictated by: Dictated on workstation # [id number]
[2017-10-15] VITALS: BP 125/64
[2017-10-15] MEDS: fentaNYL INJECTION 100 MCG/2 ML AMP IV PRN ×6 (03:04→21:07)
[2017-10-15 04:00] VITALS: BP 123/65
[2017-10-15] MEDS: inSUlin ASPART (NovoLOG) 1 UNIT/0.01 ML (CHARGE PER UNIT) SC SCH ×4 (06:17→20:59)
[2017-10-15 06:50] LABS: BASOPHILS % (AUTO) 0 % (0-10); EOSINOPHILS # (AUTO) 0.1 10^3/uL (0.0-0.3); EOSINOPHILS % (AUTO) 2 % (0-10); HEMATOCRIT 30 % (40-54); HEMOGLOBIN 10.5 G/DL (13.3-17.7); LYMPHOCYTES # (AUTO) 0.7 X 10^3 (1.0-4.0); LYMPHOCYTES % (AUTO) 9 % (12-44); MEAN CORPUSCULAR HEMOGLOBIN 31 PG (25-34); MEAN CORPUSCULAR HGB CONC 35 G/DL (32-36); MEAN CORPUSCULAR VOLUME 89 FL (80-99); MEAN PLATELET VOLUME 12.4 FL (7.4-10.4); MONOCYTES # (AUTO) 1.1 X 10^3 (0.0-1.0); MONOCYTES % (AUTO) 14 % (0-12); NEUTROPHILS % (AUTO) 75 % (42-75); PLATELET COUNT 140 10^3/uL (130-400); RED BLOOD COUNT 3.41 10^6/uL (4.35-5.85); RED CELL DISTRIBUTION WIDTH 14.5 % (10.0-14.5); WHITE BLOOD COUNT 7.9 10^3/uL (4.3-11.0)
[2017-10-15 07:17] LABS: ALBUMIN 3.4 GM/DL (3.2-4.5); BILIRUBIN,TOTAL 0.4 MG/DL (0.1-1.0); CALCIUM 9.7 MG/DL (8.5-10.1); CREATININE SERUM 5.81 MG/DL (0.60-1.30); TOTAL PROTEIN 6.2 GM/DL (6.4-8.2)
[2017-10-15 08:00] VITALS: BP 122/66
--- NOTE | 2017-10-15 08:58 | History & Physicial (CHS) ---
HPI History of Present Illness: 7-year-old male presents to the emergency room during the evening of October 14, 2017 with what he describes as worsening pain to the left foot. He had seen podiatry the day prior to presenting to the emergency department. Apparently he was started on an oral antibiotic but he did not remember which one. He states the pain became fairly intense he rates it an 8/10 on a pain scale. He has known kidney failure and does utilize home hemodialysis Tuesday through Tuesday. He is under the care of a mail manager through [facility]. Source: patient Exam Limitations: no limitations Date seen by provider: Oct 15, 2017 Time Seen by Provider: 06:50 Attending Physician Shine Renee MD PCP Dania Barksdale MD Consult Date of Admission Oct 14, 2017 at 22:15 Home Medications Home Medications Reviewed patient Home Medication Reconciliation performed by pharmacy medication reconciliations ag equipment field service technician and/or nursing. Patients Allergies have been reviewed. Allergies Coded Allergies: codeine (Verified Allergy, Intermediate, NAUSEA, 04/27/15) pt states he has nausea and vomiting from Codeine Penicillins (Unverified Allergy, Mild, 04/24/15) hydrocodone (Verified Adverse Reaction, Unknown, NAUSEA, 11/22/15) oxycodone (Unverified Adverse Reaction, Unknown, 11/22/15) QHX-Jvthdk-Pwhshd Hx Patient Social History Marrital Status: Alcohol Use: Denies Use Recreational Drug Use: No Smoking Status: Never a Smoker Former smoker/When Quit: May 09, 2001 Type Used: Cigarettes Recent Foreign Travel: No Contact w/other who traveled: No Recent Hopitalizations: No Recent Infectious Disease Expo: No Physical Abuse Screen: No Sexual Abuse: No Immunizations Up To Date Tetanus Booster (TDap): Less than 5yrs Date of Pneumonia Vaccine: May 25, 2015 Date of Influenza Vaccine: Apr 20, 2015 Family Medical History Family History: FHx: emphysema 19 FATHER Review of Systems ([facility]) Constitutional: see HPI Reviewed Test Results Reviewed Test Results Lab Laboratory Tests Test 10/14/17 21:09 10/14/17 21:20 10/15/17 05:25 10/15/17 06:15 Range/Units White Blood Count 11.8 H 7.9 4.3-11.0 10^3/uL Red Blood Count 3.52 L 3.41 L 4.35-5.85 10^6/uL Hemoglobin 11.1 L 10.5 L 13.3-17.7 G/DL Hematocrit 31 L 30 L 40-54 % Mean Corpuscular Volume 88 89 80-99 FL Mean Corpuscular Hemoglobin 32 31 25-34 PG Mean Corpuscular Hemoglobin Concent 36 35 32-36 G/DL Red Cell Distribution Width 14.2 14.5 10.0-14.5 % Platelet Count 138 140 130-400 10^3/uL Mean Platelet Volume 11.6 H 12.4 H 7.4-10.4 FL Neutrophils (%) (Auto) 85 H 75 42-75 % Lymphocytes (%) (Auto) 5 L 9 L 12-44 % Monocytes (%) (Auto) 10 14 H 0-12 % Eosinophils (%) (Auto) 1 2 0-10 % Basophils (%) (Auto) 0 0 0-10 % Neutrophils # (Auto) 10.0 H 6.0 1.8-7.8 X 10^3 Lymphocytes # (Auto) 0.5 L 0.7 L 1.0-4.0 X 10^3 Monocytes # (Auto) 1.2 H 1.1 H 0.0-1.0 X 10^3 Eosinophils # (Auto) 0.1 0.1 0.0-0.3 10^3/uL Basophils # (Auto) 0.0 0.0 0.0-0.1 10^3/uL Neutrophils % (Manual) 87 % Lymphocytes % (Manual) 2 % Monocytes % (Manual) 8 % Eosinophils % (Manual) 0 % Basophils % (Manual) 0 % Band Neutrophils 3 % Blood Morphology Comment NORMAL Erythrocyte Sedimentation Rate 34 H 0-15 MM/HR Prothrombin Time 14.0 12.2-14.7 SEC INR Comment 1.1 0.8-1.4 Activated Partial Thromboplast Time 49 H 24-35 SEC Sodium Level 132 L 133 L 135-145 MMOL/L Potassium Level 3.1 L 3.0 L 3.6-5.0 MMOL/L Chloride Level 92 L 94 L 98-107 MMOL/L Carbon Dioxide Level 26 26 21-32 MMOL/L Anion Gap 14 13 5-14 MMOL/L Blood Urea Nitrogen 31 H 36 H 7-18 MG/DL Creatinine 5.28 H 5.81 #H 0.60-1.30 MG/DL Estimat Glomerular Filtration Rate 12 11 BUN/Creatinine Ratio 6 6 Glucose Level 193 H 174 H 70-105 MG/DL Calcium Level 10.3 H 9.7 8.5-10.1 MG/DL Total Bilirubin 0.5 0.4 0.1-1.0 MG/DL Aspartate Amino Transf (AST/SGOT) 19 16 5-34 U/L Alanine Aminotransferase (ALT/SGPT) 17 15 0-55 U/L Alkaline Phosphatase 93 84 40-136 U/L C-Reactive Protein High Sensitivity 10.38 H 0.00-0.50 MG/DL Total Protein 6.8 6.2 L 6.4-8.2 GM/DL Albumin 3.8 3.4 3.2-4.5 GM/DL Lactic Acid Level 0.90 0.50-2.00 MMOL/L Glucometer 211 H 70-110 MG/DL Radiology NAME: VIRGINIA SORTO [facility] REC#: [id number] PT STATUS: REG ER : 1970 PHYSICIAN: ALYSIA EDWARDS DO ADMIT DATE: 10/14/17/ER Signed Date of Exam: 10/14/17 FOOT, LEFT, 3 VIEWS INDICATION: Wound on bottom of foot. End-stage renal disease. TECHNIQUE: 3 views of the left foot CORRELATION STUDY: None FINDINGS: There is rather prominent soft tissue swelling present. Vascular calcifications. No acute bony abnormality or carlin bony destructive type change. Prominent calcaneal spur formation. IMPRESSION: 1. Negative for acute findings of the foot. No carlin bony destructive type change. Soft tissue swelling. Dictated by: Dictated on workstation # [id number] Dict: 10/14/172219 Trans: 10/14/172229 Interpreted by: SHEY RAMIREZ DO Electronically signed by: SHEY RAMIREZ DO 10/14/172229 Physical Exam-([facility]) Physical Exam Vital Signs VS - Last 72 Hours, by Label 10/14/17 10/14/17 10/15/17 10/15/17 19:32 22:59 00:00 04:00 Temp 99.0 96.4 97.1 Pulse 87 81 86 70 Resp 18 18 20 B/P (MAP) 135/67 (89) 160/82 125/64 (84) 123/65 (84) Pulse Ox 94 96 92 96 O2 Delivery Room Air 10/15/17 08:05 O2 Delivery Nasal Cannula O2 Flow Rate 1.50 Capillary Refill : Less Than 3 Seconds General Appearance: mild distress (with movement of his left foot) HEENT: pharynx normal Neck: full range of motion Respiratory: lungs clear Cardiovascular: regular rate, rhythm Gastrointestinal: soft Rectal: deferred Extremities: swelling (noted to the distal half of the left foot. He also has erythema that would be described as moderate. Tenderness of the large toe He also has eraser head size ulcer at the plantar aspect over the distal first metatarsal region) Assessment/Plan Assessment/Plan Admission Dx 1. Cellulitis left foot 2. Insulin-dependent diabetes mellitus 3 Chronic renal failure--on hemodialysis 4. Diabetic foot ulcer Admission Status: Inpatient Order (span 2 midnights) Reason for Inpatient Admission: further antibiotics to improve the cellulitis of his left foot Assessment & Plan 1. Cellulitis left foot -patient to be admitted for IV vancomycin 2. Insulin-dependent diabetes mellitus -Patient be continued on his insulin medication and sliding scale as necessary 3 Chronic renal failure--on hemodialysis -I spoke with Mago who is nurse practitioner for his mail manager on the phone and his creatinine of 5 is fairly stable for him. 4. Diabetic foot ulcer -Wound care may be recommended outpatient Clinical Quality Measures DVT/VTE Risk/Contraindication: Risk Factor Score Per Nursin RFS Level Per Nursing on Admit: 3=High SHINE RENEE MD Oct 15, 2017 08:58
[2017-10-15] MEDS: FLUoxetine HCL 20 MG (PROzac) CAP PO SCH (10:24)
[2017-10-15] MEDS: PANTOPRAZOLE 20 MG TABLET (PROTONIX) PO SCH (10:24)
[2017-10-15] MEDS: BUMETANIDE 1 MG (BUMEX) TAB PO SCH ×2 (10:24→20:58)
[2017-10-15] MEDS: PREGABALIN 75 MG (LYRICA) CAP PO SCH ×3 (10:25→20:58)
[2017-10-15 11:04] VITALS: BP 147/69
[2017-10-15] MEDS ORDERED: ONDANSETRON 4 MG/2 ML (SDV) Z0FRAN ONE (11:45)
[2017-10-15 15:50] VITALS: BP 136/67
[2017-10-15] MEDS: TAMSULOSIN 0.4 MG (FLOMAX) CAP PO SCH (17:57)
[2017-10-15 19:15] VITALS: BP 137/63
[2017-10-15] MEDS ORDERED: TROUGH ORDER-PHARMACY XX NR (20:00)
[2017-10-15] MEDS: traZODone 100 MG (DESYREL) TAB PO SCH (20:58)
[2017-10-15] MEDS: VANCOMYCIN 1 GM/NS 250 ML IVPB IV SCH ×2 (20:59)
[2017-10-16] VITALS: BP 128/62
[2017-10-16] MEDS: fentaNYL INJECTION 100 MCG/2 ML AMP IV PRN ×6 (01:17→21:41)
[2017-10-16 06:01] LABS: BASOPHILS % (AUTO) 0 % (0-10); EOSINOPHILS # (AUTO) 0.1 10^3/uL (0.0-0.3); EOSINOPHILS % (AUTO) 2 % (0-10); HEMATOCRIT 28 % (40-54); LYMPHOCYTES # (AUTO) 0.6 X 10^3 (1.0-4.0); LYMPHOCYTES % (AUTO) 9 % (12-44); MEAN CORPUSCULAR HEMOGLOBIN 31 PG (25-34); MEAN CORPUSCULAR HGB CONC 35 G/DL (32-36); MEAN CORPUSCULAR VOLUME 89 FL (80-99); MONOCYTES # (AUTO) 0.8 X 10^3 (0.0-1.0); MONOCYTES % (AUTO) 12 % (0-12); NEUTROPHILS # (AUTO) 5.4 X 10^3 (1.8-7.8); NEUTROPHILS % (AUTO) 77 % (42-75); PLATELET COUNT 137 10^3/uL (130-400); RED BLOOD COUNT 3.18 10^6/uL (4.35-5.85); RED CELL DISTRIBUTION WIDTH 14.4 % (10.0-14.5); WHITE BLOOD COUNT 6.9 10^3/uL (4.3-11.0)
[2017-10-16 06:35] LABS: CALCIUM 9.6 MG/DL (8.5-10.1); CREATININE SERUM 7.15 MG/DL (0.60-1.30); POTASSIUM 3.3 MMOL/L (3.6-5.0)
[2017-10-16] MEDS: PANTOPRAZOLE 20 MG TABLET (PROTONIX) PO SCH (06:37)
[2017-10-16] MEDS: inSUlin ASPART (NovoLOG) 1 UNIT/0.01 ML (CHARGE PER UNIT) SC SCH ×4 (06:41→20:44)
[2017-10-16 08:00] VITALS: BP 165/78
--- NOTE | 2017-10-16 09:06 | Progress Note (SOAP) ---
Subjective Subjective/Events-last exam Patient reports he is a little tired this morning. This is fairly typical for him on a Tuesday since he doesn't usually do with hemodialysis until Tuesday. He reports his left foot is still a little tender but not worse than yesterday. Review of Systems Date Seen by Provider: Oct 16, 2017 Time Seen by Provider: 07:15 Focused Exam Lactate Level 10/14/17 21:20: Lactic Acid Level 0.90 Objective Exam Last Set of Vital Signs Vital Signs Date Time Temp Pulse Resp B/P (MAP) Pulse Ox O2 Delivery O2 Flow Rate FiO2 10/16/17 00:00 97.1 74 22 128/62 (84) 99 Room Air 10/15/17 08:05 1.50 Capillary Refill : Less Than 3 Seconds I&O Intake and Output 10/16/17 00:00 Intake Total 1040 ml Balance 1040 ml Intake Oral 790 ml IV Total 250 ml # Voids 5 # Bowel Movements 1 General: Alert, No Acute Distress Lungs: Clear to Auscultation Heart: Regular Rate Abdomen: Soft Extremities: No Tenderness/Swelling (No significant swelling of the lower extremities), Other (Erythema still noted to the left foot but only at the dorsal aspect just slightly above the second and third digit. The great toe appears to be slightly better with regards to erythema and swelling.) Skin: No Rashes Results/Procedures Lab Laboratory Tests 10/15/17 11:00: Glucometer 180H 10/15/17 15:54: Glucometer 76 10/15/17 19:59: Vancomycin Level Trough 16.1 10/15/17 21:32: Glucometer 148H 10/16/17 05:40: White Blood Count 6.9, Red Blood Count 3.18L, Hemoglobin 10.0L, Hematocrit 28L, Mean Corpuscular Volume 89, Mean Corpuscular Hemoglobin 31, Mean Corpuscular Hemoglobin Concent 35, Red Cell Distribution Width 14.4, Platelet Count 137, Mean Platelet Volume 12.0H, Neutrophils (%) (Auto) 77H, Lymphocytes (%) (Auto) 9L, Monocytes (%) (Auto) 12, Eosinophils (%) (Auto) 2, Basophils (%) (Auto) 0, Neutrophils # (Auto) 5.4, Lymphocytes # (Auto) 0.6L, Monocytes # (Auto) 0.8, Eosinophils # (Auto) 0.1, Basophils # (Auto) 0.0, Sodium Level 134L, Potassium Level 3.3L, Chloride Level 95L, Carbon Dioxide Level 24, Anion Gap 15H, Blood Urea Nitrogen 46H, Creatinine 7.15#H, Estimat Glomerular Filtration Rate 8, BUN/ Creatinine Ratio 6, Glucose Level 150H, Calcium Level 9.6 Microbiology 10/14/17 Blood Culture - Preliminary, Resulted No growth Radiology NAME: VIRGINIA SORTO [facility] REC#: [id number] PT STATUS: REG ER : 1970 PHYSICIAN: ALYSIA EDWARDS DO ADMIT DATE: 10/14/17/ER Signed Date of Exam: 10/14/17 FOOT, LEFT, 3 VIEWS INDICATION: Wound on bottom of foot. End-stage renal disease. TECHNIQUE: 3 views of the left foot CORRELATION STUDY: None FINDINGS: There is rather prominent soft tissue swelling present. Vascular calcifications. No acute bony abnormality or carlin bony destructive type change. Prominent calcaneal spur formation. IMPRESSION: 1. Negative for acute findings of the foot. No carlin bony destructive type change. Soft tissue swelling. Dictated by: Dictated on workstation # [id number] Dict: 10/14/172219 Trans: 10/14/172229 Interpreted by: SHEY RAMIREZ DO Electronically signed by: SHEY RAMIREZ DO 10/14/172229 Assessment/Plan Assessment/Plan Assessment & Plan 1. Cellulitis left foot -patient to be admitted for IV vancomycin 10/16: -Appears to be slightly improved -D2 of vancomycin 2. Insulin-dependent diabetes mellitus -Patient be continued on his insulin medication and sliding scale as necessary 3 Chronic renal failure--on hemodialysis -I spoke with Mago who is nurse practitioner for his application integration architect on the phone and his creatinine of 5 is fairly stable for him. 10/16: -Today I spoke with Mago regarding [place]'s creatinine of 7.15. With him being in a dialysis patient and not having significant fluid swelling he will be okay until tomorrow when he can have his home hemodialysis. If not dismissed he may possibly have passed to go home for hemodialysis. 4. Diabetic foot ulcer -Wound care may be recommended outpatient Clinical Quality Measures DVT/VTE Risk/Contraindication: Risk Factor Score Per Nursin RFS Level Per Nursing on Admit: 3=High ROXANNA RENEE MD Oct 16, 2017 09:06
[2017-10-16] MEDS: FLUoxetine HCL 20 MG (PROzac) CAP PO SCH (09:16)
[2017-10-16] MEDS: BUMETANIDE 1 MG (BUMEX) TAB PO SCH ×2 (09:16→20:08)
[2017-10-16] MEDS: PREGABALIN 75 MG (LYRICA) CAP PO SCH ×3 (09:16→20:08)
[2017-10-16 16:00] VITALS: BP 162/73
[2017-10-16] MEDS: TAMSULOSIN 0.4 MG (FLOMAX) CAP PO SCH (18:18)
[2017-10-16] MEDS ORDERED: TROUGH ORDER-PHARMACY XX NR (20:00)
[2017-10-16] MEDS: traZODone 100 MG (DESYREL) TAB PO SCH (20:08)
[2017-10-16] MEDS: VANCOMYCIN 1 GM/NS 250 ML IVPB IV SCH ×2 (20:39)
[2017-10-16 21:07] VITALS: BP 162/73
== END 2017-10-16 22:06 | disposition home or self-care (01) | DRG 602 ==
LOC: EDUNIT# 18:21 → ER 18:22 → 4TH 22:15
PROVIDERS: ADMIT Family Medicine; ATTEND Family Medicine
DX: L03.116 Cellulitis of left lower limb (principal); N18.6 End stage renal disease; E11.22 Type 2 diabetes mellitus with diabetic chronic kidney disease; E11.621 Type 2 diabetes mellitus with foot ulcer; L97.529 Non-pressure chronic ulcer of other part of left foot with unspecified severity; Z99.2 Dependence on renal dialysis; Z79.4 Long term (current) use of insulin; Z87.891 Personal history of nicotine dependence
CPT/HCPCS: 36415; 73630; 73700; 80048; 80053; 80202; 82962; 83605; 85007; 85025; 85027; 85610; 85652; 85730; 86141; 87040; 96374; 96375

== ENCOUNTER 2018-11-01 19:49 | Outpatient (CLI) | payer MEDICARE, MEDICAID ==
[~2018-11-01 19:49] MED LIST changes: +BUME2TAB3 PO; +FLUO20CA25 PO; +INSU100V16; +TAMS0.4C2 PO; +TRAZ-190 PO
== END 2018-11-02 06:31 | disposition home or self-care (01) ==
LOC: SLEEP 19:49
PROVIDERS: ATTEND Nurse Practitioner Family
DX: G47.33 Obstructive sleep apnea (adult) (pediatric) (principal); R09.02 Hypoxemia
CPT/HCPCS: 95811

== ENCOUNTER → 2018-12-07 | Outpatient (CLI) | payer MEDICARE, MEDICAID ==
[~2018-12-07] MED LIST changes: -BUME2TAB3 PO; +BUME2TAB7 PO; -OMEP20CA12 PO; +OMEP20CA13 PO; +RT-ALBUTEROL SULF 2.5 MG/3 ML PRE-MIX VIAL INH ONE
== END ==
LOC: RT 11:54
PROVIDERS: ATTEND Nurse Practitioner Family
DX: J98.4 Other disorders of lung (principal); G47.33 Obstructive sleep apnea (adult) (pediatric); G47.36 Sleep related hypoventilation in conditions classified elsewhere; N18.6 End stage renal disease
CPT/HCPCS: 94060; 94640; 94726; 94729

== ENCOUNTER → 2019-07-10 | Outpatient (CLI) | payer MEDICARE, MEDICAID ==
[~2019-07-10] MED LIST changes: -FLUO20CA25 PO; +FLUO20CA46 PO; -METO-387 PO; +MTP25TSR PO; -OMEP20CA13 PO; +OMEP20CA18 PO; -RT-ALBUTEROL SULF 2.5 MG/3 ML PRE-MIX VIAL INH ONE; -TRAM50TA2 PO; -TRAZ-190 PO; +TRAZ-227 PO; +TRM50T PO
== END | disposition home or self-care (01) ==
LOC: PREOP 05:52
PROVIDERS: ATTEND Specialist
DX: Z01.818 Encounter for other preprocedural examination (principal)

== ENCOUNTER → 2019-07-23 | Outpatient (CLI) | payer MEDICARE, MEDICAID ==
--- NOTE | 2019-07-23 12:24 | Diagnostic Imaging Report ---
INDICATION: Dyspnea. Comparison is made to study of 04/19/2016. FINDINGS: Overall heart size and pulmonary vascularity are within normal limits. Linear atelectasis and/or scarring in the left lung is noted in the lower half. There is no evidence of significant pleural fluid. IMPRESSION: Mild linear atelectasis and/or scarring in the lower half of the left lung without other evidence of acute abnormality. Dictated by: Dictated on workstation # [id number]
== END ==
LOC: RAD 10:39
PROVIDERS: ATTEND Nurse Practitioner Family
DX: R06.00 Dyspnea, unspecified (principal); R91.8 Other nonspecific abnormal finding of lung field
CPT/HCPCS: 71046

== ENCOUNTER → 2019-07-26 | Outpatient (CLI) | payer MEDICARE, MEDICAID ==
--- NOTE | 2019-07-26 08:48 | Diagnostic Imaging Report ---
EXAMINATION: CT Chest without contrast. TECHNIQUE: Multiple contiguous axial images were obtained through the chest without the use of intravenous contrast. All CT scans use one or more of the following dose optimizing techniques: automated exposure control, MA and/or KvP adjustment based on a patient size and exam type, or iterative reconstruction. HISTORY: Dyspnea. COMPARISON: 05/23/2015. FINDINGS: There is no edema or pneumonia. No pleural effusion. No pneumothorax. No suspicious nodules. There is mild atelectasis in the lung bases. Heart size is normal. There are mild coronary artery calcifications. No pericardial effusion. Aorta is normal in caliber. There is no axillary or supraclavicular lymphadenopathy. There is no mediastinal lymphadenopathy. There are prominent subcentimeter mediastinal lymph nodes but none are pathologically enlarged. There is differential attenuation of the myocardium and blood pool, suggestive of anemia. Mild gynecomastia is noted. Limited views of the upper abdomen show an absent gallbladder. There are no suspicious osseus lesions IMPRESSION: 1. Minimal atelectasis in the lung bases which are otherwise clear. 2. Differential attenuation of the myocardium and blood pool, suggestive of anemia. Dictated by: Dictated on workstation # [id number]
== END ==
LOC: RAD 07:57
PROVIDERS: ATTEND Nurse Practitioner Family
DX: J98.4 Other disorders of lung (principal); G47.33 Obstructive sleep apnea (adult) (pediatric); G47.36 Sleep related hypoventilation in conditions classified elsewhere; R06.00 Dyspnea, unspecified; Z94.0 Kidney transplant status
CPT/HCPCS: 71250

== ENCOUNTER 2019-09-24 09:42 | Outpatient (RCR) | payer MEDICARE, MEDICAID ==
[~2019-09-24] VITALS: Ht 167.7 cm; Wt 90.9 kg
[~2019-09-24 09:42] MED LIST changes: +ASPI-586 PO; +ERGO50006 PO; +FLUO40CA PO; +METO-333 PO; +MYCO180T PO; +NFVALG450T PO; +NYST1000 PO; +OMEP40CA27 PO; +POLY119P5 PO; +PRED5TAB PO; +SULF1TAB34 PO; +TACR1CAP24 PO; +TMSL.4C PO
== END 2019-09-24 15:08 | disposition home or self-care (01) ==
LOC: PREOP 09:42
PROVIDERS: ATTEND Specialist
DX: Z01.818 Encounter for other preprocedural examination (principal); Z11.59 Encounter for screening for other viral diseases
CPT/HCPCS: 87635

== ENCOUNTER 2019-09-28 06:41 | Day surgery (SDC) | payer MEDICARE, MEDICAID ==
[~2019-09-28] VITALS: Ht 182.9 cm; Wt 90.9 kg
[2019-09-28] MEDS ORDERED: POVIDONE (BETADINE) OPHTH SOLN 5% 30 ML OP ONE (07:00)
[2019-09-28] MEDS ORDERED: MOXIFLOXACIN OPHTH SOLN 5 MG/ML 0.3 ML SYRINGE OP ONE (07:00)
[2019-09-28] MEDS ORDERED: TIMOLOL MALEATE 0.5% 5 ML (TIMOPTIC) BTL OU PRN (07:00)
[2019-09-28] MEDS ORDERED: LIDOCAINE PF 1% 2 ML VIAL IR PRN (07:00)
[2019-09-28 07:03] VITALS: BP 147/78
[2019-09-28] MEDS: TETRACAINE 0.5% OPHTH SOLN 4 ML BTL (SINGLE DOSE ONLY) OU PRN ×4 (07:07→07:33)
[2019-09-28] MEDS: CYCLOPENTOLATE 1% (CYCLOGYL) 2 ML DROPS OP SCH ×3 (07:15→07:33)
[2019-09-28] MEDS: PHENYLEPHRINE 10% OPHTH (NEO-SYN) 5 ML BTL OU SCH ×3 (07:15→07:33)
[2019-09-28] MEDS ORDERED: acetaZOLAMIDE ER 500 MG CAP (DIAMOX SEQUELS) PO ONE (08:00)
[2019-09-28] MEDS ORDERED: MIDAZOLAM 2 MG/2 ML (VERSED) VIAL ONE (08:15)
--- NOTE | 2019-09-28 08:18 | Ophthalmologist Pre-Op Note ---
Pre-Operative Progress Note H&P Reviewed The H&P was reviewed, patient examined and no changes noted. Date H&P Reviewed: September 28, 2019 Time H&P Reviewed: 08:18 Pre-Op Dx Cataract, Right Eye AD EHR MD September 28, 2019 08:18
--- OUTSIDE RECORDS SUMMARY | 2019-09-28 08:35 | XMS REPORT ---
Author Author [employer]. manuscripts archivist [facility] [email or web address]. 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 Name Role Phone SHARRISARI Unavailable Unavailable RYAN, SARI Unavailable Unavailable SHARRI, SARI Unavailable Unavailable RYAN, SARI A Unavailable SHARRI, SARI A Unavailable SHARRI, SARI A Unavailable WEST DA SILVA Unavailable Unavailable MAITE ZHANG Unavailable Unavailable NO, LOCAL PHYSICIAN Unavailable Unavailable DOUGLAS BAILEY Unavailable SHARRIEDILIE Unavailable SHARRI, SARI Unavailable SHARRI, SARI Unavailable SHARRI, SARI Unavailable SHARRI, SARI Unavailable SHARRI, SARI Unavailable SHARRI, SARI Unavailable SHARRI, SARI Unavailable SHARRI, SARI Unavailable SHARRI, SARI Unavailable SHARRI, SARI Unavailable SHARRI, SARI Unavailable SHARRI, SARI Unavailable SHARRI, SARI Unavailable SHARRI, SARI Unavailable SHARRI, SARI Unavailable SHARRI, SARI Unavailable SHARRI, SARI Unavailable SHARRI, SARI Unavailable SHARRI, SARI Unavailable SHARRI, SARI Unavailable DOUGLAS BAILEY Unavailable SHARRI, SARI Unavailable DOUGLAS BAILEY Unavailable SHARRI SARI Unavailable SHARRI SARI Unavailable SHARRI, SARI Unavailable SHARRI, SARI Unavailable SABIHA ESCALONA Unavailable Unavailable CARLOS ENRIQUE PADGETT MD Unavailable Unavailable SHARRI SARI Unavailable SHARRI, SARI Unavailable SHARRI, SARI Unavailable SHARRI, SARI Unavailable ESQUIVEL, ELKE Unavailable SHARRI, SARI Unavailable ESQUIVEL, ELKE Unavailable SHARAD HOLLIS Unavailable Unavailable SHARRISARIRODO Unavailable Unavailable ABOUL-MAGD, DIAZ Unavailable Unavailable ABOUL-MAGD, DIAZ Unavailable Unavailable ABOUL-MAGD, DIAZ Unavailable Unavailable MONICA REYES, NIKI Greene Unavailable Unavailable MONICA REYES, NIKI Greene Unavailable Unavailable OLIVIA ROBERTSON APRN Unavailable Unavailable CHELI ANTON APRN Unavailable Unavailable WILLA DO, EITAN M Unavailable Unavailable DAYRON REYES, CARLOS ENRIQUE W Unavailable Unavailable SABIHA ESCALONA Unavailable Unavailable SARI HARRELL MD Unavailable Unavailable SARAHI MARION IMPROVEMENT LEAD Unavailable Unavailable DAYRON REYES, CARLOS ENRIQUE Andrea Unavailable Unavailable OLIVIA ROBERTSON APRN Unavailable Unavailable ZHANG REYES, MONICA Bourne Unavailable Unavailable JERRY DO, ALYSIA K Unavailable Unavailable ROXANNA RENEE MD Unavailable Unavailable ROXANNA RENEE MD Unavailable Unavailable ESQUIVEL DO, ELKE K Unavailable Unavailable SHARAD HOLLIS Unavailable Unavailable SARI HARRELL MD Unavailable Unavailable ELVER REYES FACJAIMIE FACP CCDS Unavailable Unavailabl e SHARRI SARI Unavailable LEISURE, LYNIETA Unavailable Unavailable COCHRAN, LIAM Unavailable Unavailable COCHRAN, LIAM Unavailable Unavailable UNLISTED, UNLISTED Unavailable Unavailable UNLISTED, UNLISTED Unavailable Unavailable UNLISTED, UNLISTED Unavailable Unavailable DENIS, PJ Unavailable Unavailable DENIS, PJ Unavailable Unavailable DENIS, PJ Unavailable Unavailable TAINA REYES, AD Acuna Unavailable Unavailable CHELI ANTON APRN Unavailable Unavailable BROWN, ALETHA Unavailable Unavailable BROWN, ALETHA Unavailable Unavailable BROWN, ALETHA Unavailable Unavailable DENIS, ANDREA Unavailable Unavailable MD Emre HARRELL PCP Unavailable Unavailable Unavailable Unavailable Unavailable Unavailable Unavailable Unavailable Unavailable Unavailable Unavailable Unavailable Unavailable Unavailable Allergies The data below is from unstructured sourcesNo Known Allergies No Known Allergies No Known Allergies No Known Allergies No Known Allergies No Known Allergies No Known Allergies No Known Allergies No Known Allergies No Known Allergies No Known Allergies No Known Allergies No Known Allergies No Known Allergies No Known Allergies No Known Allergies No Known Allergies No Known Allergies No Known Allergies No Known Allergies No Known Allergies No Known Allergies No Known Allergies No Known Allergies No Known Allergies No Known Allergies No Known Allergies No Known Allergies No Known Allergies No Known Allergies No Known Allergies No Known Allergies No Known Allergies No Known Allergies No Known Allergies No Known Allergies No Known Allergies No Known Allergies No Known Allergies No Known Allergies No Known Allergies No Known Allergies No Known Allergies No Known Allergies No Known Allergies No Known Allergies No Known Allergies No Known Allergies No Known Allergies No Known Allergies No Known Allergies No Known Allergies No Known Allergies No Known Allergies No Known Allergies No Information No Information No Information No Information No Information No Information No Information No Information No Information No Information No Information No Information No Information No Information No Information No Information No Information No Information No Information No Information No Information No Information No Information No Information No Information No Information No Information No Information No Information No Information No Information No Information No Information No Information No Information No Information No Information No Information No Information No Information No Information No Information No Information No Information No Information No Information No Information No Information No Information No Information No Information No Information No Information No Information No Information No Information No Information No Information Medications Current Medications Medication Ingredient Drug Dose Dates Status Sig Sig Care Class(es) (Normalized) (Original) Provid er aspirin 81 Aspirin Platelet Active no Aspirin no mg delayed Aggregation information Active 81 name release Inhibitor, ORAL Daily oral tablet Nonsteroida (1 source.) l Anti-inflam matory Drug ergocalcife Ergocalcife Provitamin Active no [place]gocalci [place]l 74472 rol D2 Compound information ol (Vitamin name unt oral D2) Active capsule (1 1250 ORAL source.) Every Tuesday mycophenoli Mycophenoli Antimetabol 720 mg Active take 4 Mycophe nolat no c acid 180 c Acid ite tablets by e Sodium name mg delayed Immunosuppr mouth twice Active 720 release essant daily ORAL Twice A oral tablet Day take 4 (1 source.) (180mg) tabs nystatin Nystatin Polyene Active no Nystatin no [id number] Antifungal information Active 5 name unt/ml oral ORAL After suspension Meals And At (1 source.) Bedtime polyethylen POLYETHYLEN Osmotic Active no Polyethylene no e glycol E GLYCOL Laxative information Glycol 3350 name 3350 70967 3350 Active 17 mg powder ORAL Daily for oral as needed solution (1 for source.) Constipation -1ST Line predniSONE predniSONE no Active no Prednisone no 5 mg oral information information Active 5 name tablet (1 ORAL Daily source.) sulfamethox Sulfamethox Dihydrofola Active no Sulfamet hoxa no azole 400 azole / te information zole/Trimeth name mg / Trimethopri Reductase oprim Active trimethopri m Inhibitor 1 ORAL Every m 80 mg Antibacteri Tuesday, oral tablet , Tuesday, (1 source.) Sulfonamide And Tuesday Antimicrobi al tacrolimus Tacrolimus Calcineurin Active no Tacrolimus no 1 mg oral Inhibitor information Active 5 name capsule (1 Immunosuppr ORAL Twice A source.) ess Day take 5 (1mg) tamsulosin tamsulosin alpha-Adren 0.4 mg Active no Tamsulosi n no hydrochlori Translation ergic information Hcl Active name de 0.4 mg s: [ Lucia 0.4 ORAL oral Tamsulosin Bedtime capsule (5 hydrochlori sources.) de 0.4 MG Oral Capsule [Flomax], Flomax 0.4 MG, Flomax 0.4 MG] 09-21-2019 Completed no Tamsulos no name inform in Hcl ation Disconti nued 0.4 ORAL Daily September 21, 2019 valGANciclo valGANciclo no Active no Valganciclov no vir 450 mg vir information information ir Hcl name oral tablet Active 450 (1 source.) ORAL Every Tuesday And Completed/Discontinued Medications Medication Ingredient Drug Dose Dates Status Sig Sig Care Class(es) (Normalized) (Original) Provid er no ACETAMINOPH no 650 mg 08-05-19 no no no no information EN SUPPOS information 19 - informat information in formation name (1 source.) SUP 650 MG 08-12-19 ion (TYLENOL) 19 no Albuterol / Anticholine 08-05-19 no no no no information Ipratropium rgic, 19 - informat information inform ation name (1 source.) beta2-Adren 08-05-19 ion ergic 19 Agonist no D5W 250CC no 08-05-19 no no no no information IV BAG INJ information - informat informatio n information name (1 source.) 08-08-19 ion 19 no Epoetin Erythropoie 07-26-19 no no no no information Guillaume sis-stimula - informat information infor mation name (1 source.) ting Agent 07-26-19 ion 20 no EPOETIN no 08-16-19 no no no no information ALPHA VIAL information - informat informatio n information name (1 source.) INJ 20 08-16-19 ion K/1CC 20 (PROCRIT 54229 UNIT VIAL 1CC) 08-10-2019 no no no no name - information inform informat 08-10-2019 ation ion 08-02-2019 no no no no name - information inform informat 08-02-2019 ation ion no Etomidate no 2 08-05-19 no no no no information (Amidate) information mg/mL - informat informat ion information name (1 source.) IV solution 08-05-19 ion 2mg/ml MPF 19 vial no Glucocard no 03-18-20 no no Glucocard no information Expression information 16 informat information E xpression name (3 Monitor ion Monitor sources.) w/Device w/Device as Translation directed 10 s: [ Mar, 2016 Glucocard Not-Taking Expression Monitor w/Device, Glucocard Expression Monitor w/Device] no L. no 05-13-19 Complete no L. no information Acidophilus information 16 - d information Ac idophilus/ name (1 source.) /Bulgaricus 10-30-19 Bulgaricus 16 Discontinued 1 ORAL Four Times Daily 60 May 13, 2015 10:27am October 30, 2015 no Lactated no 08-05-19 no no no no information Ringer's information - informat information inf ormation name (1 source.) Solution 08-05-19 ion 19 no LIDOCAINE no 1 % 05-22-19 no no no no information 1% W/PRESV information - informat informatio n information name (1 source.) W/EPI INJ 05-22-19 ion (XYLOCAINE 20 W/EPI & PRESERV) no LORAZEPAM no 08-05-19 no no no no information 1CC VIAL information - informat information inf ormation name (1 source.) INJ 2 MG/CC 08-05-19 ion (ATIVAN 19 VIAL) no Meropenem-0 no 08-06-19 no no no no information .9% sodium information - informat informatio n information name (1 source.) chloride IV 08-15-19 ion piggyback 1 19 Gm no Midazolam Benzodiazep 08-05-19 no no no no information ine 19 - informat information information name (1 source.) 08-05-19 ion 19 no Norepinephr Catecholami 08-05-19 no no no no information ine ne 19 - informat information information name (1 source.) 08-08-19 ion 19 no Normal no 08-05-19 no no no no information saline information - informat information infor mation name (1 source.) Translation 08-05-19 ion s: [ NORMAL 19 SALINE 1000CC IV BAG INJ 0.9 % (NS 1000CC IV BAG)] no Piperacilli no 2.25 g 08-05-19 no no no no information n-tazobacta information - informat informati on information name (1 source.) m) 2.25 Gm 08-05-19 ion IV Vial 19 (Zosyn) no POLY/BACI/N no 05-22-19 no no no no information EOM OINT information - informat information inf ormation name (1 source.) OINT 05-22-19 ion (NEOSPORIN) 20 no PROPOFOL 1% no 08-05-19 no no no no information VIAL INJ 10 information - informat informati on information name (1 source.) MG/CC 08-05-19 ion (DIPRIVAN 1 19 GM/100CC VIAL) no Sennosides no 05-13-19 Complete no Sennosides no information information 16 d information Disconti nued name (1 source.) 8.6 ORAL Twice A Day as needed for Constipation May 13, 2015 no Sennosides no 8.6 mg 05-13-19 Complete take 1 Sennosi chaitanya (no information (Senokot) information 16 d tablet by (Senok ot) phone) (1 source.) 8.6 Mg mouth twice 8.6 Mg Tablet, 8.6 daily as Tablet, 8.6 Mg Oral needed for Mg Oral constipation Twice A Day as needed for Constipation Discontinued no SUCCINYL no 08-05-19 no no no no information CHOLINE information - informat information info rmation name (1 source.) VIAL INJ 20 08-05-19 ion MG/CC 19 (ANECTINE VIAL) no VANCOMYCIN no 500 mg 08-05-19 no no no n o information VIAL INJ information 19 - informat information inf ormation name (1 source.) 500 MG 08-05-19 ion 19 no vecuronium no 08-05-19 no no no no information bromide information 19 - informat information info rmation name (1 source.) (vecuronium 08-05-19 ion bromide) IV 19 recon soln no VECURONIUM no 10 mg 08-05-19 no no no n o information VIAL INJ 10 information 19 - informat informati on information name (1 source.) MG 08-05-19 ion (NORCURON 19 VIAL) Problems Active Problems Problem Normalized Date Last Normalized Normalized Provider Fa cility Classification Problem(s) Recorded Problem Problem Sta tus Duration Other Abnormal Episodic Active SABIHA ESCALONA [facility] Via nutritional; weight loss [place] endocrine; and Hospital - metabolic [place] disorders (1 (17506) source.) Residual Acquired Episodic Active OLIVIA ROBERTSON [facility] Via codes; absence of [place] unclassified other organs Hospital - (1 source.) [place] ([address]2010) Acute and Acute kidney Episodic Active CARLOS ENRIQUE PADGETT , Not Av ailable unspecified failure, (29242) renal failure unspecified (22 sources.) Congestive Acute on Chronic Active JAIMIE RAYA [facility] Via heart failure; chronic MD KENYA [facility] nonhypertensiv [facility] e (2 sources.) systolic [place] (congestive) (14490) and diastolic (congestive) heart failure Translations: [ ACUTE SYSTOLIC (CONGESTIVE) HEART FAILUR] Complications Acute Episodic Active DARLYN Patricio rosa of surgical respiratory District [facility]1 of procedures or failure [facility] (48541) (5 sources.) trauma and surgery Cataract (1 Age-related Chronic Active MD SARI Álvarez n Via source.) cataract SHARRI [address] [place] (Work Phone: [facility] ([phone]) ) Allergic Allergy status Episodic Active OLIVIA ROBERTSON [facility] V ia reactions (5 to narcotic [place] sources.) agent status Hospital - Translations: [place] [ ALLERGY (38688) STATUS TO PENICILLIN, ALLERGY STATUS TO PENICILLIN] Deficiency and Anemia Episodic Active SARI HARRELL Comm unity other anemia Translations: 38307 [facility] (11 sources.) [ Anemia, of [place] unspecified [place] (13035) type, Anemia, unspecified type] Deficiency and Anemia in Chronic Active SABIHA ESCALONA Not Available other anemia chronic kidney (79220) (20 sources.) disease Other Anorexia Episodic Active SABIHA ESCALONA [facility] Via nutritional; [place] endocrine; and Hospital - metabolic [place] disorders (1 (91143) source.) Other ear and Bilateral Chronic Active SARI HARRELL Comm gaston sense organ hearing loss [address]38 [facility] disorders (11 Translations: of [place] sources.) [ Bilateral [place] (32280) hearing loss, unspecified hearing loss type, Bilateral hearing loss, unspecified hearing loss type] Skin and Cellulitis Episodic Active ROXANNA RENEE [facility] Vi a subcutaneous Translations: MD [facility] tissue [ CELLULITIS Hospital - infections (8 OF LEFT LOWER [place] sources.) LIMB, (88005) Cellulitis] Residual Chills Episodic Active SABIHA ESCALONA [facility] Via codes; (isi [facility] unclassified fever) Hospital - (1 source.) [place] (27635) Unclassified Chronic pain Chronic Active SARI HARRELL Co mmunity (11 sources.) Translations: [address] [facility] [ Other of [facility] chronic pain, [place] (75038) Other chronic pain] Cardiac and Congenital Chronic Active SARI SHARRI [facility] V ia circulatory insufficiency , 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 (1 valve [place] source.) (06256) Other nervous Critical Chronic Active NIKI ANDERSON , Not A vailable system illness (56319) disorders (1 polyneuropathy source.) Diabetes Diabetes no information Active SARI HARRELL Via [place] mellitus mellitus 46301 Hospital without without [place] complication complication (87725) (1 source.) Chronic ulcer Diabetic foot Chronic Active ROXANNA RENEE VC Via of skin (7 ulcer MD [facility] sources.) Translations: Hospital - [ NON-PRESSURE [place] CHRONIC ULCER (87249) OTH PRT LEFT ] Other nervous Difficulty in Chronic Active DIAZ Not Available system walking [facility] (66057) disorders (6 sources.) Other nervous Difficulty in Chronic Active DIAZ Not Available system walking, not [facility] (53345) disorders (23 elsewhere sources.) classified Immunity Disorder Chronic Active [facility] disorders (8 involving the District [facility]1 of sources.) immune [place] mechanism, [facility] (74903) unspecified Translations: [ UNSPECIFIED DISORDER OF IMMUNE MECHANISM] Other lower Dyspnea, 09-11-2019 - Episodic Active EITAN CROUCH , [facility] Via respiratory unspecified DO [place] disease (13 Hospital - sources.) [place] (71086) Residual Edema, Episodic Active CARLOS ENRIQUE PADGETT , Not Availa ble codes; unspecified MD (94618) unclassified (22 sources.) Other Effusion, Episodic Active SARI HARRELL Communit y non-traumatic right elbow 64084 [facility] joint Translations: of [facility] disorders (11 [ - Effusion [place] (87703) sources.) of right elbow M25.421, - Effusion of right elbow M25.421] Immunizations Encounter for Episodic Active NIKI MONICA , Not Available and screening immunization (75137) for infectious Translations: disease (2 [ ENCOUNTER sources.) FOR SCREENING FOR OTHER BACTER] Acute and End stage Chronic Active SARI HARRELL Communit y unspecified renal disease 45561 [facility] renal failure Translations: of [facility] (5 sources.) [ End stage [place] (64426) renal disease] Essential Essential Chronic Active OLIVIA ROBERTSON [facility] Via hypertension (primary) [place] (4 sources.) hypertension [facility] (69426) Fever of Fever, Episodic Active [facility] unknown origin unspecified District [facility]1 of (30 sources.) [facility] (82529) Adverse Fever, Episodic Active [facility] effects of unspecified District [facility] of medical drugs [place] (2 sources.) [facility] (31792) Fluid and Hyperkalemia Episodic Active TALAL PADGETT , Not Av ailable electrolyte Translations: (21108) disorders (22 [ HYPOKALEMIA, sources.) HYPO-OSMOLALIT Y AND HYPONATREMIA, ACIDOSIS] Hypertension Hypertensive Chronic Active ALYSIA JERRY , DO N ot Available with chronic kidney (16910) complications disease with and secondary stage 5 hypertension chronic kidney (3 sources.) disease or end stage renal disease Other Hypoglycemia Chronic Active MD GUO [place] Via endocrine SHARRI [address] [place] disorders (1 (Work Phone: Hospital source.) (47693) ) Open wounds of Laceration Episodic Active LYNIETA Hospit al extremities without LEISURE District [facility]1 of (20 sources.) foreign body [place] of unspecified [facility] (14359) thumb without damage to nail, subsequent encounter Translations: [ OPEN WOUND OF FINGERS, WITHOUT MENTION OF COMPLICATION, LACERATION W/O FB OF RIGHT THUMB W/O DAMAGE TO NAIL, INIT, OPEN WOUND OF FINGERS, COMPLICATED] Other long term Episodic Active SARI HARRELL [facility] Via aftercare (15 (current) use , MD [facility] sources.) of [facility] (82530) Other Long-term Episodic Active [facility] aftercare (2 (current) use District #1 of sources.) of other [place] medications [facility] (13146) Other Muscle Episodic Active [facility] connective weakness [facility] District [facility]1 of tissue disease (generalized) [place] (23 sources.) [facility] (08018) Other Muscle Episodic Active [facility] connective weakness [facility] District [facility]1 of tissue disease (generalized) [place] (1 source.) [facility] (17400) Other Neuropathy of Chronic Active MD SARI Álvarez n Via nutritional; upper limb due SHARRI [address] [place] endocrine; and to metabolic (Work Phone: Hospital metabolic disorder (72160) disorders (1 ) source.) Other Obesity, Chronic Active CHINTAN ESCOBAR Via nutritional; unspecified DO [place] endocrine; and Hospital - metabolic [place] disorders (1 (12785) source.) Residual Obstructive 09-13-2019 - Chronic Active CHINTAN ESCOBAR Via codes; sleep apnea DO [place] unclassified (adult) Hospital - (20 sources.) (pediatric) [place] (22036) 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 NIKI ANDERSON , Not Available atherosclerosi infarction (65702) s and other heart disease (5 sources.) Other Olecranon Episodic Active SARI HARRELL Communit y connective bursitis, [address] [facility] tissue disease unspecified of [facility] (11 sources.) elbow [place] (67129) Translations: [ - Olecranon bursitis, unspecified laterality M70.20, - Olecranon bursitis, unspecified laterality M70.20] Other Other bursal Episodic Active SARI HARRELL Commu nity connective cyst, left [address] [facility] Center tissue disease elbow of [facility] (20 sources.) Translations: [place] (14687) [ - Other bursal cyst, left elbow M71.322, - Other bursal cyst, left elbow M71.322] Other lower Other 09-13-2019 - Episodic Active CHELI V [facility] Via respiratory disorders of DESEAN [place] disease (8 lung Hospital - sources.) [place] (14923) Other Other long Episodic Active SABIHA ESCALONA Not Avai lable aftercare (20 term (current) (01718) sources.) drug therapy Other lower Other 09-11-2019 - Episodic Active CHELI V [facility] Via respiratory nonspecific DESEAN , [employer] Rima disease (4 abnormal Hospital - sources.) finding of [place] lung field (76708) Other Other Episodic Active MONICA HOLCOMB [facility] Via non-traumatic specified , [facility] - disorders (1 disorders, [place] source.) left shoulder (30436) Septicemia Other Episodic Active [facility] (except in specified District [facility]1 of labor) (16 sepsis [place] sources.) Translations: [facility] (21629) [ OTHER SPECIFIED SEPTICEMIAS, SEPSIS, UNSPECIFIED ORGANISM, UNSPECIFIED SEPTICEMIA] Other Pain in left Episodic Active OLIVIA ROBERTSON [facility] Via non-traumatic wrist [facility] - disorders (4 [place] sources.) (99820) Other Pain in right Episodic Active SARI HARRELL [facility] non-traumatic shoulder [address] [place] [address] joint Translations: of [place] disorders (11 [ - Pain in [place] (36217) sources.) right shoulder M25.511, - Pain in right shoulder M25.511] Other nervous Paresthesia of Episodic Active SABIHA ESCALONA [facility] Via system skin [place] disorders (1 Hospital - source.) [place] (87171) Other nervous Peripheral Chronic Active MD SARI Arias on Via system nerve disease SHARRI [address]13 [place] disorders (1 (Work Phone: Hospital source.) (39010) ) Peripheral and Peripheral Chronic Active MD SARI Anne ion Via visceral vascular SHARRI 85906 [place] atherosclerosi disease (Work Phone: Hospital s (1 source.) (08163) ) Screening and Personal Episodic Active SARAHI MARION [facility] V ia history of history of [facility] nicotine Hospital - and substance dependence [place] abuse codes (94868) (15 sources.) Other Personal Episodic Active OLIVIA ROBERTSON [facility] Via gastrointestin history of [place] al disorders other diseases Hospital - (4 sources.) of the [place] digestive (36945) system Genitourinary Personal Episodic Active CARLOS ENRIQUE PADGETT , Not Av ailable symptoms and history of MD (68679) ill-defined other diseases conditions (20 of urinary sources.) system Translations: [ PROTEINURIA, UNSPECIFIED] Other lower Personal Episodic Active OLIVIA ROBERTSON [facility] Via respiratory history of [place] disease (4 pneumonia Hospital - sources.) (recurrent) [place] (61880) Pleurisy; Pleural Episodic Active EITAN CROUCH , [facility] Via pneumothorax; effusion, not DO [place] pulmonary elsewhere Hospital - collapse (1 classified [place] source.) (63834) Other nervous Polyneuropathy Chronic Active DIAZ Not Available system , unspecified [facility] (74263) disorders (23 sources.) Unclassified Primary Chronic Active SARI SHARRI Counts Include [facility] ity (8 sources.) insomnia [id number] [facility] Translations: of [facility] [ Primary [place] (17488) insomnia, Primary insomnia] Unclassified Recurrent no information Active SARI SHARRI [facility] (16 sources.) falls [address] [facility] Translations: of [facility] [ Falls [place] (69945) frequently, Falls frequently] Other Repeated falls Episodic Active SARITradeo Com munity connective Translations: [address] [facility] tissue disease [ - Falls of [facility] (12 sources.) frequently [place] (47278) R29.6, - Falls frequently R29.6] Respiratory Respiratory Episodic Active [facility] Hosp ital failure; failure, [facility] insufficiency; unspecified, [place] arrest (adult) unspecified [facility] (22977) (28 sources.) whether with hypoxia or hypercapnia Translations: [ ACUTE RESPIRATORY FAILURE, ACUTE RESPIRATORY FAILURE WITH HYPOXIA] Septicemia Sepsis, Episodic Active [facility] (except in unspecified LEISURE [facility] of labor) (12 organism [place]ouke sources.) [facility] (16477) Other lower Shortness of Episodic Active SABIHA ESCALONA [facility] Via respiratory breath [place] disease (1 Hospital - source.) [place] ([address]) Residual Sleep related 09-13-2019 - Chronic Active CHELI [facility] Via codes; hypoventilatio DESEAN [place] unclassified n in Hospital - (8 sources.) conditions [place] classified (73778) elsewhere Spondylosis; Spondylosis Chronic Active SHARAD BUNNY No t Available intervertebral without (64259) disc myelopathy or disorders; radiculopathy, other back lumbar region problems (3 sources.) Other upper Tracheostomy Chronic Active NIKI ANDERSON , Not Available respiratory status (29855) disease (5 sources.) Epilepsy; Unspecified Episodic Active ALYSIAEmre RICHARDSONO , DO Not A vailable convulsions (3 convulsions (88371) sources.) 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 (3 and toxic sources.) neuropathy Sprains and Unspecified Episodic Active MONICA HOLCOMB [facility] Via strains (7 sprain of , [place] sources.) right wrist, Hospital - initial [place] encounter () Translations: [ SUPERIOR GLENOID LABRUM LESION OF LEFT S, Sprain of wrist] Unclassified no information no information Active SARI LUCIE ART Via [place] (2 sources.) [address] Hospital [place] () Past or Other Problems Problem Normalized Date Last Normalized Normalized Provider Fa cility Classification Problem(s) Recorded Problem Problem Sta tus Duration Unclassified Acquired Episodic Completed no name no informa tion (3 sources.) absence of other organs Translations: [ SLEEP APNEA, UNSPECIFIED] External cause Fall on and no information no information OLIVIA ROBERTSON [facility] Via codes: Fall (4 from ladder, [place] sources.) initial Hospital - encounter [place] () Other skin Generalized Episodic Completed OLIVIA ROBERTSON Not Ene ilable disorders (1 hyperhidrosis (35766) source.) Other lower Hypoxemia Episodic Completed EITAN CROUCH [facility] V ia respiratory DO [place] disease (8 Hospital - sources.) [place] () Bacterial Other Episodic Completed NIKI ANDERSON , Not Avail able infection; bacterial () unspecified infections of site (2 unspecified sources.) site Translations: [ BACTEREMIA] Residual Sleep apnea, no information no information OLIVIA Foster [facility] Via codes; unspecified [place] unclassified Hospital - (1 source.) [place] () Viral Zoster without Episodic Completed NIKI ANDERSON , Not Available infection (1 complications (07228) source.) Procedures Procedure Normalized Procedure Procedure Result Performer Facility Date 08-23-2017 Aspiration&/injection no information no name [facility] ganglion cyst any [facility] (33859) 10-14-2017 Computed tomography of no information ALYSIA EDWARDS Via [facility] lower limb [place] (57093) 08-03-2017 Fall risk assessment no information no name [facility] doc d [facility] (77252) 10-26-2017 FQHC visit, estab pt no information no name [facility] (62289) 08-23-2017 FQHC visit, estab pt no information no name [facility] ([id number]) 08-23-2017 LAB NOT BILLED BY no information [facility] (56754) 08-03-2017 Pos clin depres scrn no information no name Co [facility] f/u [facility] (26589) 08-03-2017 Pt tobacco screen rcvd no information no name [facility] Health k [facility] (14896) REMOVAL OF FEEDING no information no name Not Availab le (39073) DEVICE FROM STOMACH, 10-14-2017 X-ray of left foot no information ALYSIA EDWARDS Via [facility] (12293) Immunizations The data below is from unstructured sources Immunization Event Date Not Given Reason Dose Number [employer] Lot Number Vaccine Information Statement (VIS) Deta il Results Test Name Value Interpretation Reference Range Date Time Fa cility (Normalized) (Normalized) (Medline Reference) not yet categorized on 2019-09-27 Urine Volume Urine Volume (no code) 09-27-2019 Hospital Sufficient 04: [facility] of (10mL) [facility] (46890) no information Urine Saved if (A) 09-27-2019 Hospital Culture Needed 04: [facility] of (48hrs from time [facility] of collection) (74112) laboratory on 2019-09-27 Albumin BCG dye 4.3 (no code) 09-27-2019 Hospital [Mass/Vol] 04: [facility] (06606) ALP [Catalytic 115 U/L (no code) 44 - 147 U/L 09-27-2019 Hosp ital activity/Vol] 04: [facility] (60176) ALT [Catalytic 20 U/L (no code) 4 - 40 U/L 09-27-2019 Hospit al activity/Vol] 04: [facility] of [facility] (33572) Anion gap 12 mmol/L (no code) 3 - 11 mmol/L 09-27-2019 Hospital [Moles/Vol] 04: [facility] (44765) AST [Catalytic 24 U/L (no code) 10 - 34 U/L 09-27-2019 Hospi rosa activity/Vol] 04: [facility] (30135) Bacteria LM Ql Negative (no code) 09-27-2019 Hospital (Urine sed) 04: [facility] () Basophils (Bld) 0.0 10*3/uL (no code) 0 - 0.3 10*3/uL 09-27-2019 Hospital [#/Vol] 04: [facility] () Basophils/100 0.20 % (no code) 0.5 - 1 % 09-27-2019 Hospital WBC (Bld) 04: [facility] () Bilirubin 0.2 mg/dL (no code) 0.1 - 1.2 mg/dL 09-27-2019 Hospit al [Mass/Vol] 04: [facility] of [facility] (77580) Bilirubin N/A (A) 09-27-2019 Hospital Confirm Ql (U) 04: [facility] (25013) Bilirubin Ql (U) Negative (no code) 09-27-2019 Hospital 04: [facility] (18472) Calcium 8.6 mg/dL (no code) 8.5 - 10.2 mg/dL 09-27-2019 Hospi rosa [Mass/Vol] 04: [facility] (19443) Casts LM Ql None Seen (no code) 09-27-2019 Hospital (Urine sed) 04: [facility] (56698) Chloride 115 mmol/L (H) 95 - 106 mmol/L 09-27-2019 Hospi rosa [Moles/Vol] 04:16-0400 [facility] (67924) Clarity (U) Clear (no code) 09-27-2019 Hospital 04: [facility] (91763) Color (U) Yellow (no code) 09-27-2019 Hospital 04: [facility] (31144) Creatinine (U) 155.6 mg/dL (H) 09-27-2019 Hospital [Mass/Vol] 04: [facility] (16241) Creatinine 2.43 mg/dL (H) 09-27-2019 Hospital [Mass/Vol] 04: [facility] (08203) Crystals LM Nom None Seen (no code) 09-27-2019 Hospital (Urine sed) 04: [facility] (75360) Eosinophils 0.1 10*3/uL (no code) 0.05 - 0.5 09-27-2019 Hospita l (Bld) [#/Vol] 10*3/uL 04: [facility] (19577) Eosinophils/100 1.9 % (no code) 1 - 4 % 09-27-2019 Hospit al WBC (Bld) 04: [facility] (79344) Epithelial None (A) 09-27-2019 Hospital cells.squamous 04: [facility] of LM.HPF (Urine [facility] sed) [#/Area] (53453) Erythrocyte 13.2 % (no code) 11.6 - 14.6 % 09-27-2019 Hospit al distribution 04: [facility] of width (RBC) [facility] [Ratio] (49972) GFR/1.73 sq 29 (L) 90 - 120 09-27-2019 Hospital M.predicted MDRD mL/min/{1.73_m2} mL/min/{1.73_m2} 04: [facility] of (S/P/Bld) [Vol [facility] rate/Area] (31712) Globulin (S) 2.1 g/dL (L) 2 - 3.5 g/dL 09-27-2019 Hospit al [Mass/Vol] 04: [facility] () Glucose 52 mg/dL (L) 60 - 125 mg/dL 09-27-2019 Hospita l [Mass/Vol] 04: [facility] (58024) Glucose Test Negative (no code) 09-27-2019 Hospital strip (U) 04: [facility] of [Mass/Vol] [facility] (11553) HCO3 (P) 17 (L) 09-27-2019 Hospital [Moles/Vol] 04: [facility] () Hematocrit (Bld) 35.3 % (L) 36.1 - 50.3 % 09-27-2019 H ospital [Volume 04: [facility] of fraction] [facility] () Hemoglobin (Bld) 11.7 g/dL (L) 12.1 - 17.2 g/dL 09-27-2019 Hospital [Mass/Vol] 04: [facility] () Hemoglobin Ql 1+ (A) 09-27-2019 Hospital (U) 04: [facility] () Ketones (U) Negative (no code) 09-27-2019 Hospital [Mass/Vol] 04: [facility] (95789) Leukocyte Negative (no code) 09-27-2019 Hospital esterase Test 04: [facility] of strip Ql (U) [facility] () Lymphocytes 0.27 10*3/uL (L) 0.9 - 2.9 09-27-2019 Hospita l (Bld) [#/Vol] 10*3/uL 04: [facility] (88668) Lymphocytes/100 5.7 % (L) 20 - 40 % 09-27-2019 Hospit al WBC (Bld) 04: [facility] (14766) Magnesium 2.0 mg/dL (no code) 1.7 - 2.2 mg/dL 09-27-2019 Hospit al [Mass/Vol] 04: [facility] (73959) MCH (RBC) 31.3 pg (H) 27 - 31 pg 09-27-2019 Hospital [Entitic mass] 04: [facility] (19415) MCHC (RBC) 33.1 g/dL (no code) 32 - 36 g/dL 09-27-2019 Hospital [Mass/Vol] 04: [facility] (72551) MCV (RBC) 94.4 fL (no code) 80 - 100 fL 09-27-2019 Hospital [Entitic vol] 04: [facility] (02291) Monocytes (Bld) 0.4 10*3/uL (no code) 0.3 - 0.9 09-27-2019 Hosp ital [#/Vol] 10*3/uL 04: [facility] (06426) Monocytes/100 8.9 % (no code) 2 - 8 % 09-27-2019 Hospital WBC (Bld) 04: [facility] (41727) Mucus Ql (Urine Negative (A) 09-27-2019 Hospital sed) 04: [facility] (54774) Neutrophils 3.95 10*3/uL (no code) 1.7 - 7 10*3/uL 09-27-2019 H ospital (Bld) [#/Vol] 04: [facility] of [facility] (53151) Neutrophils/100 83.3 % (H) 40 - 60 % 09-27-2019 Hospit al WBC (Bld) 04: [facility] (76166) Nitrite Ql (U) Negative (no code) 09-27-2019 Hospital 04: [facility] (05475) Osmolality Calc 293 (no code) 09-27-2019 Hospital [Osmolality] 04: [facility] (99355) pH (U) 5.5 [pH] (no code) 4.6 - 8 [pH] 09-27-2019 Hospital 04: [facility] (14060) Phosphate 2.8 mg/dL (no code) 2.4 - 4.1 mg/dL 09-27-2019 Hospit al [Mass/Vol] 04: [facility] () Platelet mean 11.0 fL (H) 7.2 - 11.7 fL 09-27-2019 Hosp ital volume (Bld) 04: [facility] of [Entitic vol] [facility] (75295) Platelets (Bld) 144 10*3/uL (L) 150 - 450 09-27-2019 Hosp ital [#/Vol] 10*3/uL 04: [facility] () Potassium 4.2 mmol/L (no code) 3.7 - 5.2 mmol/L 09-27-2019 Hosp ital [Moles/Vol] 04: [facility] () Protein (U) 51 mg/dL (H) 0 - 20 mg/dL 09-27-2019 Hospita l [Mass/Vol] 04: [facility] () Protein (U) 1+ (A) 09-27-2019 Hospital [Mass/Vol] 04: [facility] () Protein 6.4 g/dL (no code) 6.4 - 8.3 g/dL 09-27-2019 Hospita l [Mass/Vol] 04: [facility] () Protein/Creatini 0.33 (no code) 09-27-2019 Hospital ne (U) [Ratio] 04: [facility] () RBC (Bld) 3.74 10*6/uL (L) 4.2 - 6.1 09-27-2019 Hospital [#/Vol] 10*6/uL 04: [facility] () RBC LM.HPF Negative (no code) 0 - 4 /[HPF] 09-27-2019 Hospital (Urine sed) 04: [facility] [#/Area] [facility] (86913) Sodium 140 mmol/L (no code) 135 - 145 mmol/L 09-27-2019 Hosp ital [Moles/Vol] 04: [facility] (41600) Specific gravity 1.025 (no code) 09-27-2019 Hospital (U) [Rel 04: [facility] of density] [facility] (05488) Urate [Mass/Vol] 6.1 mg/dL (no code) 3.5 - 7.2 mg/dL 09-27-2019 Hospital 04: [facility] (65637) Urea nitrogen 31 mg/dL (H) 7 - 20 mg/dL 09-27-2019 Hospi rosa [Mass/Vol] 04: [facility] (04794) Urobilinogen Qn [id number] (A) 09-27-2019 Hospital (U) {Zari'U}/dL 04: [facility] o f [facility] (57891) WBC (Bld) 4.74 10*3/uL (L) 3.5 - 10.5 09-27-2019 Hospital [#/Vol] 10*3/uL 04: [facility] (83531) WBC LM.HPF 2-5/HPF (A) 09-27-2019 Hospital (Urine sed) 04: [facility] [#/Area] [facility] (35966) Yeast.budding Ql No Yeast present (no code) 09-27-2019 Hosp ital (Urine sed) 04: [facility] (88968) laboratory on 2019-09-26 Tacrolimus 8.4 (no code) 09-26-2019 [facility] (86774 ) LC/MS/MS (Bld) 13:38-0400 [Mass/Vol] not yet categorized on 2019-09-24 TACROLIMUS 8.4 (no code) 09-24-2019 Hospital ([id number]), BLOOD 04: [facility] (63025) Urine Volume Urine Volume (no code) 09-24-2019 Hospital Sufficient 04: [facility] of (10mL) [facility] (62032) no information Urine Saved if (A) 09-24-2019 Hospital Culture Needed 04: [facility] of (48hrs from time [facility] of collection) (34237) laboratory on 2019-09-24 Albumin BCG dye 4.6 (no code) 09-24-2019 Hospital [Mass/Vol] 04: [facility] (03887) ALP [Catalytic 107 U/L (no code) 44 - 147 U/L 09-24-2019 Hosp ital activity/Vol] 04: [facility] () ALT [Catalytic 22 U/L (no code) 4 - 40 U/L 09-24-2019 Hospit al activity/Vol] 04: [facility] () Anion gap 12 mmol/L (no code) 3 - 11 mmol/L 09-24-2019 Hospital [Moles/Vol] 04: [facility] (06737) AST [Catalytic 22 U/L (no code) 10 - 34 U/L 09-24-2019 Hospi rosa activity/Vol] 04: [facility] () Bacteria LM Ql Negative (no code) 09-24-2019 Hospital (Urine sed) 04: [facility] (19205) Basophils (Bld) 0.0 10*3/uL (no code) 0 - 0.3 10*3/uL 09-24-2019 Hospital [#/Vol] 04: [facility] (43709) Basophils/100 0.40 % (no code) 0.5 - 1 % 09-24-2019 Hospital WBC (Bld) 04: [facility] (30182) Bilirubin 0.3 mg/dL (no code) 0.1 - 1.2 mg/dL 09-24-2019 Hospit al [Mass/Vol] 04: [facility] () Bilirubin N/A (A) 09-24-2019 Hospital Confirm Ql (U) 04: [facility] (97285) Bilirubin Ql (U) Negative (no code) 09-24-2019 Hospital 04: [facility] () Calcium 9.5 mg/dL (no code) 8.5 - 10.2 mg/dL 09-24-2019 Hospi rosa [Mass/Vol] 04:180 [facility] (50275) Chloride 113 mmol/L (no code) 95 - 106 mmol/L 09-24-2019 Hospi rosa [Moles/Vol] 04: [facility] (53212) Clarity (U) Clear (no code) 09-24-2019 Hospital 04: [facility] (81156) Color (U) Yellow (no code) 09-24-2019 Hospital 04: [facility] (36636) Coronavirus Ab Negative (no code) [facility] (81477) Coronavirus Ab Negative (no code) 09-24-2019 PENDING LOC ATION Qn (S) 09:45-0400 [facility] (90559) Creatinine (U) 101.4 mg/dL (H) 09-24-2019 Hospital [Mass/Vol] 04: [facility] (30825) Creatinine 2.37 mg/dL (H) 09-24-2019 Hospital [Mass/Vol] 04: [facility] (69988) Eosinophils 0.1 10*3/uL (no code) 0.05 - 0.5 09-24-2019 Hospita l (Bld) [#/Vol] 10*3/uL 04: [facility] (49823) Eosinophils/100 2.0 % (no code) 1 - 4 % 09-24-2019 Hospit al WBC (Bld) 04: [facility] (82248) Epithelial 0-5/HPF (A) 09-24-2019 Hospital cells.squamous 04: [facility] of LM.HPF (Urine [facility] sed) [#/Area] (18159) Erythrocyte 13.1 % (no code) 11.6 - 14.6 % 09-24-2019 Hospit al distribution 04: [facility] of width (RBC) [facility] [Ratio] (02601) GFR/1.73 sq 29 (L) 90 - 120 09-24-2019 Hospital M.predicted MDRD mL/min/{1.73_m2} mL/min/{1.73_m2} 04: [facility] of (S/P/Bld) [Vol [facility] rate/Area] (73143) Globulin (S) 1.7 g/dL (L) 2 - 3.5 g/dL 09-24-2019 Hospit al [Mass/Vol] 04: [facility] (60743) Glucose 81 mg/dL (no code) 60 - 125 mg/dL 09-24-2019 Hospita l [Mass/Vol] 04: [facility] () Glucose Test 2+ (A) 09-24-2019 Hospital strip (U) 04: [facility] of [Mass/Vol] [facility] () HCO3 (P) 19 (L) 09-24-2019 Hospital [Moles/Vol] 04: [facility] (50411) Hematocrit (Bld) 37.1 % (L) 36.1 - 50.3 % 09-24-2019 H ospital [Volume 04: [facility] of fraction] [facility] () Hemoglobin (Bld) 12.1 g/dL (L) 12.1 - 17.2 g/dL 09-24-2019 Hospital [Mass/Vol] 04:18 [facility] () Hemoglobin Ql Trace-lysed (A) 09-24-2019 Hospital (U) 04: [facility] (55173) Ketones (U) Negative (no code) 09-24-2019 Hospital [Mass/Vol] 04: [facility] (40576) Leukocyte Negative (no code) 09-24-2019 Hospital esterase Test 04: [facility] of strip Ql (U) [facility] (00740) Lymphocytes 0.30 10*3/uL (L) 0.9 - 2.9 09-24-2019 Hospita l (Bld) [#/Vol] 10*3/uL 04:18-0400 [facility] (01575) Lymphocytes/100 6.0 % (L) 20 - 40 % 09-24-2019 Hospit al WBC (Bld) 04: [facility] (21133) Magnesium 2.0 mg/dL (no code) 1.7 - 2.2 mg/dL 09-24-2019 Hospit al [Mass/Vol] 04: [facility] (58079) MCH (RBC) 31.0 pg (no code) 27 - 31 pg 09-24-2019 Hospital [Entitic mass] 04: [facility] () MCHC (RBC) 32.6 g/dL (no code) 32 - 36 g/dL 09-24-2019 Hospital [Mass/Vol] 04: [facility] (94246) MCV (RBC) 95.1 fL (no code) 80 - 100 fL 09-24-2019 Hospital [Entitic vol] 04: [facility] (70447) Monocytes (Bld) 0.5 10*3/uL (no code) 0.3 - 0.9 09-24-2019 Hosp ital [#/Vol] 10*3/uL 04: [facility] () Monocytes/100 10.2 % (no code) 2 - 8 % 09-24-2019 Hospital WBC (Bld) 04: [facility] () Neutrophils 4.07 10*3/uL (no code) 1.7 - 7 10*3/uL 09-24-2019 H ospital (Bld) [#/Vol] 04: [facility] (56230) Neutrophils/100 81.4 % (H) 40 - 60 % 09-24-2019 Hospit al WBC (Bld) 04: [facility] (93056) Nitrite Ql (U) Negative (no code) 09-24-2019 Hospital 04: [facility] (03252) Osmolality Calc 296 (H) 09-24-2019 Hospital [Osmolality] 04:18-0400 [facility] (22559) pH (U) 5.5 [pH] (no code) 4.6 - 8 [pH] 09-24-2019 Hospital 04: [facility] () Phosphate 2.9 mg/dL (no code) 2.4 - 4.1 mg/dL 09-24-2019 Hospit al [Mass/Vol] 04: [facility] () Platelet mean 11.4 fL (H) 7.2 - 11.7 fL 09-24-2019 Hosp ital volume (Bld) 04: [facility] [Entitic vol] [facility] (46886) Platelets (Bld) 142 10*3/uL (L) 150 - 450 09-24-2019 Hosp ital [#/Vol] 10*3/uL 04: [facility] () Potassium 4.3 mmol/L (no code) 3.7 - 5.2 mmol/L 09-24-2019 Hosp ital [Moles/Vol] 04: [facility] (33984) Protein (U) 37 mg/dL (H) 0 - 20 mg/dL 09-24-2019 Hospita l [Mass/Vol] 04: [facility] (44550) Protein (U) 1+ (A) 09-24-2019 Hospital [Mass/Vol] 04: [facility] () Protein 6.3 g/dL (no code) 6.4 - 8.3 g/dL 09-24-2019 Hospita l [Mass/Vol] 04: [facility] (84876) Protein/Creatini 0.36 (no code) 09-24-2019 Hospital ne (U) [Ratio] 04: [facility] (28362) RBC (Bld) 3.90 10*6/uL (L) 4.2 - 6.1 09-24-2019 Hospital [#/Vol] 10*6/uL 04: [facility] () RBC LM.HPF Few/HPF (A) 09-24-2019 Hospital (Urine sed) 04: [facility] [#/Area] [facility] (64161) Sodium 140 mmol/L (no code) 135 - 145 mmol/L 09-24-2019 Hosp ital [Moles/Vol] 04: [facility] (70149) Specific gravity 1.020 (no code) 09-24-2019 Hospital (U) [Rel 04: [facility] of density] [facility] (02065) Urate [Mass/Vol] 5.3 mg/dL (no code) 3.5 - 7.2 mg/dL 09-24-2019 Hospital 04: [facility] (04835) Urea nitrogen 37 mg/dL (H) 7 - 20 mg/dL 09-24-2019 Hospi rosa [Mass/Vol] 04: [facility] (34954) Urobilinogen Qn [id number] (A) 09-24-2019 Hospital (U) {Zari'U}/dL 04: [facility] o f [facility] (40933) WBC (Bld) 5.00 10*3/uL (no code) 3.5 - 10.5 09-24-2019 Hospital [#/Vol] 10*3/uL 04: [facility] (79999) WBC LM.HPF Negative (no code) 0 - 5 /[HPF] 09-24-2019 Hospital (Urine sed) 04: [facility] [#/Area] [facility] (36958) laboratory on 2019-09-23 Tacrolimus 7.0 (no code) 09-23-2019 [facility] (26702 ) LC/MS/MS (Bld) 05:430400 [Mass/Vol] not yet categorized on 2019-09-20 TACROLIMUS 7.0 (no code) 09-20-2019 Hospital ([id number]), BLOOD 03: [facility] (19241) Urine Volume Urine Volume (no code) 09-20-2019 Hospital Sufficient 03: [facility] (10mL) [facility] (68331) laboratory on 2019-09-20 Albumin BCG dye 4.3 (no code) 09-20-2019 Hospital [Mass/Vol] 03: [facility] (14762) ALP [Catalytic 109 U/L (no code) 44 - 147 U/L 09-20-2019 Hosp ital activity/Vol] 03: [facility] () ALT [Catalytic 18 U/L (no code) 4 - 40 U/L 09-20-2019 Hospit al activity/Vol] 03: [facility] (68540) Anion gap 13 mmol/L (no code) 3 - 11 mmol/L 09-20-2019 Hospital [Moles/Vol] 03: [facility] () AST [Catalytic 22 U/L (no code) 10 - 34 U/L 09-20-2019 Hospi rosa activity/Vol] 03: [facility] () Basophils (Bld) 0.0 10*3/uL (no code) 0 - 0.3 10*3/uL 09-20-2019 Hospital [#/Vol] 03: [facility] () Basophils/100 0.40 % (no code) 0.5 - 1 % 09-20-2019 Hospital WBC (Bld) 03: [facility] () Bilirubin 0.3 mg/dL (no code) 0.1 - 1.2 mg/dL 09-20-2019 Hospit al [Mass/Vol] 03: [facility] () Bilirubin N/A (A) 09-20-2019 Hospital Confirm Ql (U) 03: [facility] (86465) Bilirubin Ql (U) Negative (no code) 09-20-2019 Hospital 03: [facility] () Calcium 9.0 mg/dL (no code) 8.5 - 10.2 mg/dL 09-20-2019 Hospi rosa [Mass/Vol] 03: [facility] (17467) Chloride 116 mmol/L (H) 95 - 106 mmol/L 09-20-2019 Hospi rosa [Moles/Vol] 03: [facility] () Clarity (U) Clear (no code) 09-20-2019 Hospital 03: [facility] () Color (U) Yellow (no code) 09-20-2019 Hospital 03: [facility] [facility] () Creatinine (U) 155.2 mg/dL (H) 09-20-2019 Hospital [Mass/Vol] 03: [facility] ([id number]) Creatinine 2.31 mg/dL (H) 09-20-2019 Hospital [Mass/Vol] 03: [facility] () Eosinophils 0.1 10*3/uL (no code) 0.05 - 0.5 09-20-2019 Hospita l (Bld) [#/Vol] 10*3/uL 03: [facility] () Eosinophils/100 2.6 % (no code) 1 - 4 % 09-20-2019 Hospit al WBC (Bld) 03: [facility] () Erythrocyte 13.4 % (no code) 11.6 - 14.6 % 09-20-2019 Hospit al distribution 03: [facility] width (RBC) [facility] [Ratio] ([id number]) GFR/1.73 sq 30 (L) 90 - 120 09-20-2019 Hospital M.predicted MDRD mL/min/{1.73_m2} mL/min/{1.73_m2} 03: [facility] (S/P/Bld) [Vol [facility] rate/Area] ([id number]) Globulin (S) 1.9 g/dL (L) 2 - 3.5 g/dL 09-20-2019 Hospit al [Mass/Vol] 03: [facility] ([id number]) Glucose 92 mg/dL (no code) 60 - 125 mg/dL 09-20-2019 Hospita l [Mass/Vol] 03: [facility] ([id number]) Glucose Test Negative (no code) 09-20-2019 Hospital strip (U) 03: [facility] [Mass/Vol] [facility] ([id number]) HCO3 (P) 18 (L) 09-20-2019 Hospital [Moles/Vol] 03: [facility] (61933) Hematocrit (Bld) 36.6 % (L) 36.1 - 50.3 % 09-20-2019 H ospital [Volume 03: [facility] fraction] [facility] (04711) Hemoglobin (Bld) 12.0 g/dL (L) 12.1 - 17.2 g/dL 09-20-2019 Hospital [Mass/Vol] 03: [facility] () Hemoglobin Ql 1+ (A) 09-20-2019 Hospital (U) 03: [facility] () Ketones (U) Negative (no code) 09-20-2019 Hospital [Mass/Vol] 03: [facility] ([id number]) Leukocyte Negative (no code) 09-20-2019 Hospital esterase Test 03: [facility] strip Ql (U) [facility] () Lymphocytes 0.38 10*3/uL (L) 0.9 - 2.9 09-20-2019 Hospita l (Bld) [#/Vol] 10*3/uL 03: [facility] () Lymphocytes/100 7.1 % (L) 20 - 40 % 09-20-2019 Hospit al WBC (Bld) 03: [facility] (40935) Magnesium 1.9 mg/dL (no code) 1.7 - 2.2 mg/dL 09-20-2019 Hospit al [Mass/Vol] 03: [facility] (35063) MCH (RBC) 31.5 pg (H) 27 - 31 pg 09-20-2019 Hospital [Entitic mass] 03: [facility] (85289) MCHC (RBC) 32.8 g/dL (no code) 32 - 36 g/dL 05-14-2020 Hospital [Mass/Vol] 03: [facility] (33957) MCV (RBC) 96.1 fL (no code) 80 - 100 fL 09-20-2019 Hospital [Entitic vol] 03: [facility] () Monocytes (Bld) 0.5 10*3/uL (no code) 0.3 - 0.9 09-20-2019 Hosp ital [#/Vol] 10*3/uL 03: [facility] () Monocytes/100 9.8 % (no code) 2 - 8 % 09-20-2019 Hospital WBC (Bld) 03: [facility] () Neutrophils 4.26 10*3/uL (no code) 1.7 - 7 10*3/uL 09-20-2019 H ospital (Bld) [#/Vol] 03: [facility] () Neutrophils/100 80.1 % (H) 40 - 60 % 09-20-2019 Hospit al WBC (Bld) 03: [facility] () Nitrite Ql (U) Negative (no code) 09-20-2019 Hospital 03: [facility] () Osmolality Calc 297 (H) 09-20-2019 Hospital [Osmolality] 03: [facility] () pH (U) 5.5 [pH] (no code) 4.6 - 8 [pH] 09-20-2019 Hospital 03: [facility] ([id number]) Phosphate 2.5 mg/dL (no code) 2.4 - 4.1 mg/dL 09-20-2019 Hospit al [Mass/Vol] 03: [facility] ([id number]) Platelet mean 11.2 fL (H) 7.2 - 11.7 fL 09-20-2019 Hosp ital volume (Bld) 03: [facility] [Entitic vol] [facility] ([id number]) Platelets (Bld) 139 10*3/uL (L) 150 - 450 09-20-2019 Hosp ital [#/Vol] 10*3/uL 03: [facility] () Potassium 4.6 mmol/L (no code) 3.7 - 5.2 mmol/L 09-20-2019 Hosp ital [Moles/Vol] 03: [facility] (26925) Protein (U) 2+ (A) 09-20-2019 Hospital [Mass/Vol] 03: [facility] (96178) Protein (U) 82 mg/dL (H) 0 - 20 mg/dL 09-20-2019 Hospita l [Mass/Vol] 03: [facility] () Protein 6.2 g/dL (no code) 6.4 - 8.3 g/dL 09-20-2019 Hospita l [Mass/Vol] 03: [facility] () Protein/Creatini 0.53 (no code) 09-20-2019 Hospital ne (U) [Ratio] 03: [facility] () RBC (Bld) 3.81 10*6/uL (L) 4.2 - 6.1 09-20-2019 Hospital [#/Vol] 10*6/uL 03: [facility] () RBC LM.HPF 5-10/HPF (A) 09-20-2019 Hospital (Urine sed) 03: [facility] [#/Area] [facility] ([id number]) Sodium 142 mmol/L (no code) 135 - 145 mmol/L 09-20-2019 Hosp ital [Moles/Vol] 03: [facility] (03563) Specific gravity 1.025 (no code) 09-20-2019 Hospital (U) [Rel 03: [facility] density] [facility] () Urate [Mass/Vol] 5.7 mg/dL (no code) 3.5 - 7.2 mg/dL 09-20-2019 Hospital 03: [facility] (46872) Urea nitrogen 24 mg/dL (no code) 7 - 20 mg/dL 09-20-2019 Hospi rosa [Mass/Vol] 03: [facility] (35494) Urobilinogen Qn [id number] (A) 09-20-2019 Hospital (U) {Zari'U}/dL 03: [facility] (74509) WBC (Bld) 5.32 10*3/uL (no code) 3.5 - 10.5 09-20-2019 Hospital [#/Vol] 10*3/uL 03: [facility] (25414) WBC LM.HPF 0-2/HPF (A) 09-20-2019 Hospital (Urine sed) 03: [facility] [#/Area] [facility] ([id number]) laboratory on 2019-09-19 Tacrolimus 8.4 (no code) 09-19-2019 [facility] ([id number] ) LC/MS/MS (Bld) 14: [Mass/Vol] not yet categorized on 2019-09-17 TACROLIMUS 8.4 (no code) 09-17-2019 Hospital ([id number]), BLOOD 04: [facility] (58259) Urine Volume Urine Volume (no code) 09-17-2019 Hospital Sufficient 04: [facility] (10mL) [facility] (33427) no information Urine Saved if (A) 09-17-2019 Hospital Culture Needed 04: [facility] (48hrs from time [facility] of collection) ([id number]) laboratory on 2019-09-17 25-Hydroxyvitami 28.40 (no code) 09-17-2019 Hospital n 04: [facility] D2+25-Hydroxyvit [facility] gilbert D3 ([id number]) [Mass/Vol] Albumin BCG dye 4.4 (no code) 09-17-2019 Hospital [Mass/Vol] 04: [facility] (85115) ALP [Catalytic 105 U/L (no code) 44 - 147 U/L 09-17-2019 Hosp ital activity/Vol] 04:16-0400 [facility] () ALT [Catalytic 16 U/L (no code) 4 - 40 U/L 09-17-2019 Hospit al activity/Vol] 04: [facility] () Anion gap 12 mmol/L (no code) 3 - 11 mmol/L 09-17-2019 Hospital [Moles/Vol] 04: [facility] () AST [Catalytic 22 U/L (no code) 10 - 34 U/L 09-17-2019 Hospi rosa activity/Vol] 04: [facility] () Average glucose 129 mg/dL (H) 09-17-2019 Hospital Estimated from 04: [facility] glycated [facility] hemoglobin mass () conc (Bld) Bacteria LM Ql Negative (no code) 09-17-2019 Hospital (Urine sed) 04: [facility] () Basophils (Bld) 0.0 10*3/uL (no code) 0 - 0.3 10*3/uL 09-17-2019 Hospital [#/Vol] 04: [facility] () Basophils/100 0.20 % (no code) 0.5 - 1 % 09-17-2019 Hospital WBC (Bld) 04: [facility] () Bilirubin 0.2 mg/dL (no code) 0.1 - 1.2 mg/dL 09-17-2019 Hospit al [Mass/Vol] 04: [facility] () Bilirubin N/A (A) 09-17-2019 Hospital Confirm Ql (U) 04: [facility] () Bilirubin Ql (U) Negative (no code) 09-17-2019 Hospital 04: [facility] () Calcium 9.0 mg/dL (no code) 8.5 - 10.2 mg/dL 09-17-2019 Hospi rosa [Mass/Vol] 04: [facility] () Casts LM Ql None Seen (no code) 09-17-2019 Hospital (Urine sed) 04: [facility] () Chloride 117 mmol/L (H) 95 - 106 mmol/L 09-17-2019 Hospi rosa [Moles/Vol] 04: [facility] ([id number]) Clarity (U) Clear (no code) 09-17-2019 Hospital 04: [facility] () Color (U) Yellow (no code) 09-17-2019 Hospital 04: [facility] () Creatinine (U) 121.5 mg/dL (H) 09-17-2019 Hospital [Mass/Vol] 04: [facility] () Creatinine 2.08 mg/dL (H) 09-17-2019 Hospital [Mass/Vol] 04: [facility] () Crystals LM Nom None Seen (no code) 09-17-2019 Hospital (Urine sed) 04: [facility] (56538) Eosinophils 0.1 10*3/uL (no code) 0.05 - 0.5 09-17-2019 Hospita l (Bld) [#/Vol] 10*3/uL 04: [facility] (65454) Eosinophils/100 2.1 % (no code) 1 - 4 % 09-17-2019 Hospit al WBC (Bld) 04: [facility] () Epithelial None (A) 09-17-2019 Hospital cells.squamous 04: [facility] LM.HPF (Urine [facility] sed) [#/Area] ([id number]) Erythrocyte 13.3 % (no code) 11.6 - 14.6 % 09-17-2019 Hospit al distribution 04: [facility] width (RBC) [facility] [Ratio] ([id number]) GFR/1.73 sq 34 (L) 90 - 120 09-17-2019 Hospital M.predicted MDRD mL/min/{1.73_m2} mL/min/{1.73_m2} 04: [facility] (S/P/Bld) [Vol [facility] rate/Area] () Globulin (S) 2.1 g/dL (L) 2 - 3.5 g/dL 09-17-2019 Hospit al [Mass/Vol] 04: [facility] () Glucose 31 Result (LL) 09-17-2019 Hospital [Mass/Vol] Verified by 04: [facility] Repeat Analysis [facility] () Glucose Test Trace (A) 09-17-2019 Hospital strip (U) 04: [facility] [Mass/Vol] [facility] () HbA1c (Bld) 5.80 % (no code) 0 - 5.7 % 09-17-2019 Hospital [Mass fraction] 04: [facility] () HCO3 (P) 18 (L) 09-17-2019 Hospital [Moles/Vol] 04: [facility] () Hematocrit (Bld) 38.1 % (L) 36.1 - 50.3 % 09-17-2019 H ospital [Volume 04: [facility] fraction] [facility] () Hemoglobin (Bld) 12.5 g/dL (L) 12.1 - 17.2 g/dL 09-17-2019 Hospital [Mass/Vol] 04: [facility] () Hemoglobin Ql 1+ (A) 09-17-2019 Hospital (U) 04: [facility] () INR Coag 1.0 (no code) 09-17-2019 Hospital (Platelet poor 04: [facility] plasma or blood) [facility] [Relative time] () Iron [Mass/Vol] 99 ug/dL (no code) 60 - 170 ug/dL 09-17-2019 H ospital 04: [facility] () Iron binding 214 (L) 09-17-2019 Hospital capacity 04: [facility] [Mass/Vol] [facility] ([id number]) Iron/Iron 46.32 (no code) 09-17-2019 Hospital binding 04: [facility] capacity.total [facility] [Mass ratio] ([id number]) Ketones (U) Negative (no code) 09-17-2019 Hospital [Mass/Vol] 04: [facility] (38646) Leukocyte Negative (no code) 09-17-2019 Hospital esterase Test 04: [facility] strip Ql (U) [facility] (35897) Lymphocytes 0.43 10*3/uL (L) 0.9 - 2.9 09-17-2019 Hospita l (Bld) [#/Vol] 10*3/uL 04: [facility] () Lymphocytes/100 9.0 % (L) 20 - 40 % 09-17-2019 Hospit al WBC (Bld) 04: [facility] () Magnesium 1.9 mg/dL (no code) 1.7 - 2.2 mg/dL 09-17-2019 Hospit al [Mass/Vol] 04: [facility] () MCH (RBC) 31.5 pg (H) 27 - 31 pg 09-17-2019 Hospital [Entitic mass] 04: [facility] () MCHC (RBC) 32.8 g/dL (no code) 32 - 36 g/dL 09-17-2019 Hospital [Mass/Vol] 04: [facility] (25892) MCV (RBC) 96.0 fL (no code) 80 - 100 fL 09-17-2019 Hospital [Entitic vol] 04: [facility] (07459) Monocytes (Bld) 0.5 10*3/uL (no code) 0.3 - 0.9 09-17-2019 Hosp ital [#/Vol] 10*3/uL 04: [facility] (24858) Monocytes/100 11.1 % (no code) 2 - 8 % 09-17-2019 Hospital WBC (Bld) 04: [facility] (33278) Mucus Ql (Urine Negative (A) 09-17-2019 Hospital sed) 04: [facility] () Neutrophils 3.70 10*3/uL (no code) 1.7 - 7 10*3/uL 09-17-2019 H ospital (Bld) [#/Vol] 04: [facility] () Neutrophils/100 77.6 % (no code) 40 - 60 % 09-17-2019 Hospit al WBC (Bld) 04: [facility] () Nitrite Ql (U) Negative (no code) 09-17-2019 Hospital 04: [facility] () Osmolality Calc 296 (H) 09-17-2019 Hospital [Osmolality] 04: [facility] () pH (U) 5.5 [pH] (no code) 4.6 - 8 [pH] 09-17-2019 Hospital 04: [facility] () Phosphate 2.3 mg/dL (L) 2.4 - 4.1 mg/dL 09-17-2019 Hospit al [Mass/Vol] 04: [facility] () Platelet mean 10.8 fL (H) 7.2 - 11.7 fL 09-17-2019 Hosp ital volume (Bld) 04: [facility] [Entitic vol] [facility] ([id number]) Platelets (Bld) 135 10*3/uL (L) 150 - 450 09-17-2019 Hosp ital [#/Vol] 10*3/uL 04: [facility] (06637) Potassium 4.1 mmol/L (no code) 3.7 - 5.2 mmol/L 09-17-2019 Hosp ital [Moles/Vol] 04: [facility] (16897) Protein (U) 1+ (A) 09-17-2019 Hospital [Mass/Vol] 04: [facility] () Protein (U) 44 mg/dL (H) 0 - 20 mg/dL 09-17-2019 Hospita l [Mass/Vol] 04: [facility] () Protein 6.5 g/dL (no code) 6.4 - 8.3 g/dL 09-17-2019 Hospita l [Mass/Vol] 04: [facility] () Protein/Creatini 0.36 (no code) 09-17-2019 Hospital ne (U) [Ratio] 04: [facility] (44614) PT Coag (PPP) 11.4 s (no code) 9.4 - 12.5 s 09-17-2019 Hospi rosa [Time] 04: [facility] () RBC (Bld) 3.97 10*6/uL (L) 4.2 - 6.1 09-17-2019 Hospital [#/Vol] 10*6/uL 04: [facility] () RBC LM.HPF 0-2/HPF (A) 09-17-2019 Hospital (Urine sed) 04: [facility] [#/Area] [facility] () Sodium 143 mmol/L (no code) 135 - 145 mmol/L 09-17-2019 Hosp ital [Moles/Vol] 04: [facility] () Specific gravity 1.025 (no code) 09-17-2019 Hospital (U) [Rel 04: [facility] density] [facility] (38627) Transferrin 171 (L) 09-17-2019 Hospital [Mass/Vol] 04: [facility] (69732) Urate [Mass/Vol] 5.5 mg/dL (no code) 3.5 - 7.2 mg/dL 09-17-2019 Hospital 04: [facility] (37782) Urea nitrogen 26 mg/dL (H) 7 - 20 mg/dL 09-17-2019 Hospi rosa [Mass/Vol] 04: [facility] (84299) Urobilinogen Qn [id number] (A) 09-17-2019 Hospital (U) {Zari'U}/dL 04: [facility] (96779) WBC (Bld) 4.77 10*3/uL (L) 3.5 - 10.5 09-17-2019 Hospital [#/Vol] 10*3/uL 04: [facility] (28329) WBC LM.HPF Negative (no code) 0 - 5 /[HPF] 09-17-2019 Hospital (Urine sed) 04: [facility] [#/Area] [facility] (56813) Yeast.budding Ql No Yeast present (no code) 09-17-2019 Hosp ital (Urine sed) 04: [facility] ([id number]) laboratory on 2019-09-16 Tacrolimus 8.8 (no code) 09-16-2019 [facility] ([id number] ) LC/MS/MS (Bld) 04: [Mass/Vol] not yet categorized on 2019-09-13 TACROLIMUS 8.8 (no code) 09-13-2019 Hospital ([id number]), BLOOD 04: [facility] ([id number]) Urine Volume Urine Volume (no code) 09-13-2019 Hospital Sufficient 04: [facility] (10mL) [facility] (07654) laboratory on 2019-09-13 Albumin BCG dye 4.4 (no code) 09-13-2019 Hospital [Mass/Vol] 04: [facility] (90660) ALP [Catalytic 105 U/L (no code) 44 - 147 U/L 09-13-2019 Hosp ital activity/Vol] 04: [facility] ([id number]) ALT [Catalytic 20 U/L (no code) 4 - 40 U/L 09-13-2019 Hospit al activity/Vol] 04: [facility] (54963) Anion gap 13 mmol/L (no code) 3 - 11 mmol/L 09-13-2019 Hospital [Moles/Vol] 04: [facility] ([id number]) AST [Catalytic 25 U/L (no code) 10 - 34 U/L 09-13-2019 Hospi rosa activity/Vol] 04: [facility] () Basophils (Bld) 0.0 10*3/uL (no code) 0 - 0.3 10*3/uL 09-13-2019 Hospital [#/Vol] 04: [facility] () Basophils/100 0.40 % (no code) 0.5 - 1 % 09-13-2019 Hospital WBC (Bld) 04: [facility] () Bilirubin 0.3 mg/dL (no code) 0.1 - 1.2 mg/dL 09-13-2019 Hospit al [Mass/Vol] 04: [facility] () Bilirubin N/A (A) 09-13-2019 Hospital Confirm Ql (U) 04: [facility] () Bilirubin Ql (U) Negative (no code) 09-13-2019 Hospital 04: [facility] () Calcium 8.7 mg/dL (no code) 8.5 - 10.2 mg/dL 09-13-2019 Hospi rosa [Mass/Vol] 04: [facility] () Chloride 116 mmol/L (H) 95 - 106 mmol/L 09-13-2019 [facility]pi [facility]sa [Moles/Vol] 04: [facility] () Clarity (U) Clear (no code) 09-13-2019 Hospital 04: [facility] () Color (U) Yellow (no code) 09-13-2019 Hospital 04: [facility] () Creatinine (U) 82.5 mg/dL (H) 09-13-2019 Hospital [Mass/Vol] 04: [facility] () Creatinine 2.13 mg/dL (H) 09-13-2019 Hospital [Mass/Vol] 04: [facility] () Eosinophils 0.1 10*3/uL (no code) 0.05 - 0.5 09-13-2019 Hospita l (Bld) [#/Vol] 10*3/uL 04: [facility] () Eosinophils/100 2.7 % (no code) 1 - 4 % 09-13-2019 Hospit al WBC (Bld) 04: [facility] () Erythrocyte 13.4 % (no code) 11.6 - 14.6 % 09-13-2019 Hospit al distribution 04: [facility] width (RBC) [facility] [Ratio] () GFR/1.73 sq 33 (L) 90 - 120 09-13-2019 Hospital M.predicted MDRD mL/min/{1.73_m2} mL/min/{1.73_m2} 04: [facility] (S/P/Bld) [Vol [facility] rate/Area] () Globulin (S) 2.0 g/dL (L) 2 - 3.5 g/dL 09-13-2019 Hospit al [Mass/Vol] 04: [facility] () Glucose 85 mg/dL (no code) 60 - 125 mg/dL 09-13-2019 Hospita l [Mass/Vol] 04: [facility] () Glucose Test Negative (no code) 09-13-2019 Hospital strip (U) 04: [facility] [Mass/Vol] [facility] ([id number]) HCO3 (P) 18 (L) 09-13-2019 Hospital [Moles/Vol] 04: [facility] () Hematocrit (Bld) 35.1 % (L) 36.1 - 50.3 % 09-13-2019 H ospital [Volume 04: [facility] fraction] [facility] () Hemoglobin (Bld) 11.4 g/dL (L) 12.1 - 17.2 g/dL 09-13-2019 Hospital [Mass/Vol] 04: [facility] (28572) Hemoglobin Ql 1+ (A) 09-13-2019 Hospital (U) 04: [facility] (71270) Ketones (U) Negative (no code) 09-13-2019 Hospital [Mass/Vol] 04: [facility] (13658) Leukocyte Negative (no code) 09-13-2019 Hospital esterase Test 04: [facility] strip Ql (U) [facility] () Lymphocytes 0.25 10*3/uL (L) 0.9 - 2.9 09-13-2019 Hospita l (Bld) [#/Vol] 10*3/uL 04: [facility] () Lymphocytes/100 5.2 % (L) 20 - 40 % 09-13-2019 Hospit al WBC (Bld) 04: [facility] () Magnesium 1.9 mg/dL (no code) 1.7 - 2.2 mg/dL 09-13-2019 Hospit al [Mass/Vol] 04: [facility] ([id number]) MCH (RBC) 31.7 pg (H) 27 - 31 pg 09-13-2019 Hospital [Entitic mass] 04: [facility] ([id number]) MCHC (RBC) 32.5 g/dL (no code) 32 - 36 g/dL 09-13-2019 Hospital [Mass/Vol] 04: [facility] () MCV (RBC) 97.5 fL (H) 80 - 100 fL 09-13-2019 Hospital [Entitic vol] 04: [facility] (68797) Monocytes (Bld) 0.5 10*3/uL (no code) 0.3 - 0.9 09-13-2019 Hosp ital [#/Vol] 10*3/uL 04: [facility] (84790) Monocytes/100 10.4 % (no code) 2 - 8 % 09-13-2019 Hospital WBC (Bld) 04: [facility] (66191) Neutrophils 3.92 10*3/uL (no code) 1.7 - 7 10*3/uL 09-13-2019 H ospital (Bld) [#/Vol] 04: [facility] () Neutrophils/100 81.3 % (H) 40 - 60 % 09-13-2019 Hospit al WBC (Bld) 04: [facility] () Nitrite Ql (U) Negative (no code) 09-13-2019 Hospital 04: [facility] () Osmolality Calc 298 (H) 09-13-2019 Hospital [Osmolality] 04: [facility] () pH (U) 5.5 [pH] (no code) 4.6 - 8 [pH] 09-13-2019 Hospital 04: [facility] () Phosphate 3.1 mg/dL (no code) 2.4 - 4.1 mg/dL 09-13-2019 Hospit al [Mass/Vol] 04: [facility] (71546) Platelet mean 11.5 fL (H) 7.2 - 11.7 fL 09-13-2019 Hosp ital volume (Bld) 04: [facility] [Entitic vol] [facility] (81329) Platelets (Bld) 139 10*3/uL (L) 150 - 450 09-13-2019 Hosp ital [#/Vol] 10*3/uL 04: [facility] (16518) Potassium 4.5 mmol/L (no code) 3.7 - 5.2 mmol/L 09-13-2019 Hosp ital [Moles/Vol] 04: [facility] ([id number]) Protein (U) 44 mg/dL (H) 0 - 20 mg/dL 09-13-2019 Hospita l [Mass/Vol] 04: [facility] (92935) Protein (U) 2+ (A) 09-13-2019 Hospital [Mass/Vol] 04: [facility] () Protein 6.4 g/dL (no code) 6.4 - 8.3 g/dL 09-13-2019 Hospita l [Mass/Vol] 04: [facility] () Protein/Creatini 0.53 (no code) 09-13-2019 Hospital ne (U) [Ratio] 04: [facility] () RBC (Bld) 3.60 10*6/uL (L) 4.2 - 6.1 09-13-2019 Hospital [#/Vol] 10*6/uL 04: [facility] () RBC LM.HPF 2-5/HPF (A) 09-13-2019 Hospital (Urine sed) 04: [facility] [#/Area] [facility] () Sodium 142 mmol/L (no code) 135 - 145 mmol/L 09-13-2019 Hosp ital [Moles/Vol] 04: [facility] () Specific gravity 1.020 (no code) 09-13-2019 Hospital (U) [Rel 04: [facility] density] [facility] () Tacrolimus 9.8 (no code) 09-13-2019 [facility] ( ) LC/MS/MS (Bld) 06:12-0 [Mass/Vol] Urate [Mass/Vol] 5.5 mg/dL (no code) 3.5 - 7.2 mg/dL 09-13-2019 Hospital 04: [facility] ([id number]) Urea nitrogen 29 mg/dL (H) 7 - 20 mg/dL 09-13-2019 Hospi rosa [Mass/Vol] 04: [facility] (84488) Urobilinogen Qn 0.2 (no code) 09-13-2019 Hospital (U) 04: [facility] (99899) WBC (Bld) 4.82 10*3/uL (L) 3.5 - 10.5 09-13-2019 Hospital [#/Vol] 10*3/uL 04: [facility] (86705) WBC LM.HPF 0-2/HPF (A) 09-13-2019 Hospital (Urine sed) 04: [facility] [#/Area] [facility] (47753) not yet categorized on 2019-09-10 TACROLIMUS 9.8 (no code) 09-10-2019 Hospital ([id number]), BLOOD 05:52 [facility] (62450) Urine Volume Urine Volume (no code) 09-10-2019 Hospital Sufficient 05:52 [facility] (10mL) [facility] (00395) no information Urine Saved if (A) 09-10-2019 Hospital Culture Needed 05: [facility] (48hrs from time [facility] of collection) ([id number]) laboratory on 2019-09-10 Albumin BCG dye 4.4 (no code) 09-10-2019 Hospital [Mass/Vol] 05:52 [facility] ([id number]) ALP [Catalytic 111 U/L (no code) 44 - 147 U/L 09-10-2019 Hosp ital activity/Vol] 05:52040 [facility] ([id number]) ALT [Catalytic 20 U/L (no code) 4 - 40 U/L 09-10-2019 Hospit al activity/Vol] 05:52 [facility] ([id number]) Anion gap 11 mmol/L (no code) 3 - 11 mmol/L 09-10-2019 Hospital [Moles/Vol] 05:52040 [facility] ([id number]) AST [Catalytic 25 U/L (no code) 10 - 34 U/L 09-10-2019 Hospi rosa activity/Vol] 05:52040 [facility] ([id number]) Bacteria LM Ql Negative (no code) 09-10-2019 Hospital (Urine sed) 05:52 [facility] ([id number]) Basophils (Bld) 0.0 10*3/uL (no code) 0 - 0.3 10*3/uL 09-10-2019 Hospital [#/Vol] 05:52 [facility] ([id number]) Basophils/100 0.30 % (no code) 0.5 - 1 % 09-10-2019 Hospital WBC (Bld) 05:520400 [facility] ([id number]) Bilirubin 0.3 mg/dL (no code) 0.1 - 1.2 mg/dL 09-10-2019 Hospit al [Mass/Vol] 05:52040 [facility] ([id number]) Bilirubin N/A (A) 09-10-2019 Hospital Confirm Ql (U) 05:52 [facility] (44618) Bilirubin Ql (U) Negative (no code) 09-10-2019 Hospital 05:52040 [facility] (06367) Calcium 8.8 mg/dL (no code) 8.5 - 10.2 mg/dL 09-10-2019 Hospi rosa [Mass/Vol] 05:52040 [facility] (12394) Chloride 114 mmol/L (no code) 95 - 106 mmol/L 09-10-2019 Hospi rosa [Moles/Vol] 05:52 [facility] (58413) Clarity (U) Clear (no code) 09-10-2019 Hospital 05:52040 [facility] (73545) Color (U) Yellow (no code) 09-10-2019 Hospital 05:52040 [facility] (59037) Creatinine (U) 107.5 mg/dL (H) 09-10-2019 Hospital [Mass/Vol] 05:52040 [facility] (32880) Creatinine 2.52 mg/dL (H) 09-10-2019 Hospital [Mass/Vol] 05:52040 [facility] (06200) Eosinophils 0.2 10*3/uL (no code) 0.05 - 0.5 09-10-2019 Hospita l (Bld) [#/Vol] 10*3/uL 05:520400 [facility] (19034) Eosinophils/100 2.5 % (no code) 1 - 4 % 09-10-2019 Hospit al WBC (Bld) 05:52040 [facility] (62508) Epithelial 0-5/HPF (A) 09-10-2019 Hospital cells.squamous 05:52-0400 [facility] LM.HPF (Urine [facility] sed) [#/Area] (88468) Erythrocyte 13.3 % (no code) 11.6 - 14.6 % 09-10-2019 Hospit al distribution 05:52-0400 [facility] width (RBC) [facility] [Ratio] ([id number]) GFR/1.73 sq 27 (L) 90 - 120 09-10-2019 Hospital M.predicted MDRD mL/min/{1.73_m2} mL/min/{1.73_m2} 05:52040 [facility] (S/P/Bld) [Vol [facility] rate/Area] (76696) Globulin (S) 2.1 g/dL (L) 2 - 3.5 g/dL 09-10-2019 Hospit al [Mass/Vol] 05:52-040 [facility] (91907) Glucose 247 mg/dL (H) 60 - 125 mg/dL 09-10-2019 Hospita l [Mass/Vol] 05:52-040 [facility] (07135) Glucose Test 2+ (A) 09-10-2019 Hospital strip (U) 05:520400 [facility] [Mass/Vol] [facility] (58907) HCO3 (P) 18 (L) 09-10-2019 Hospital [Moles/Vol] 05:520400 [facility] (73782) Hematocrit (Bld) 37.8 % (L) 36.1 - 50.3 % 09-10-2019 H ospital [Volume 05:520400 [facility] fraction] [facility] (88228) Hemoglobin (Bld) 12.1 g/dL (L) 12.1 - 17.2 g/dL 09-10-2019 Hospital [Mass/Vol] 05:52-0400 [facility] (36232) Hemoglobin Ql 1+ (A) 09-10-2019 Hospital (U) 05:520400 [facility] (99130) Ketones (U) Negative (no code) 09-10-2019 Hospital [Mass/Vol] 05:520400 [facility] (73104) Leukocyte Negative (no code) 09-10-2019 Hospital esterase Test 05:52 [facility] strip Ql (U) [facility] (31704) Lymphocytes 0.27 10*3/uL (L) 0.9 - 2.9 09-10-2019 Hospita l (Bld) [#/Vol] 10*3/uL 05:52 [facility] (51256) Lymphocytes/100 4.5 % (L) 20 - 40 % 09-10-2019 Hospit al WBC (Bld) 05:52 [facility] (39673) Magnesium 2.1 mg/dL (no code) 1.7 - 2.2 mg/dL 09-10-2019 Hospit al [Mass/Vol] 05:52 [facility] (60894) MCH (RBC) 31.5 pg (H) 27 - 31 pg 09-10-2019 Hospital [Entitic mass] 05:52 [facility] (99422) MCHC (RBC) 32.0 g/dL (no code) 32 - 36 g/dL 09-10-2019 Hospital [Mass/Vol] 05:52040 [facility] (91291) MCV (RBC) 98.4 fL (H) 80 - 100 fL 09-10-2019 Hospital [Entitic vol] 05:52 [facility] (89166) Monocytes (Bld) 0.5 10*3/uL (no code) 0.3 - 0.9 09-10-2019 Hosp ital [#/Vol] 10*3/uL 05:52 [facility] (09761) Monocytes/100 7.7 % (no code) 2 - 8 % 09-10-2019 Hospital WBC (Bld) 05:52 [facility] (69592) Neutrophils 5.05 10*3/uL (no code) 1.7 - 7 10*3/uL 09-10-2019 H ospital (Bld) [#/Vol] 05:52 [facility] (07966) Neutrophils/100 85.0 % (H) 40 - 60 % 09-10-2019 Hospit al WBC (Bld) 05:52 [facility] (54179) Nitrite Ql (U) Negative (no code) 09-10-2019 Hospital 05:52 [facility] (82332) Osmolality Calc 300 (H) 09-10-2019 Hospital [Osmolality] 05: [facility] () pH (U) 5.5 [pH] (no code) 4.6 - 8 [pH] 09-10-2019 Hospital 05:52 [facility] () Phosphate 2.8 mg/dL (no code) 2.4 - 4.1 mg/dL 09-10-2019 Hospit al [Mass/Vol] 05: [facility] (74694) Platelet mean 12.0 fL (H) 7.2 - 11.7 fL 09-10-2019 Hosp ital volume (Bld) 05: [facility] [Entitic vol] [facility] (60664) Platelets (Bld) 161 10*3/uL (no code) 150 - 450 09-10-2019 Hosp ital [#/Vol] 10*3/uL 05: [facility] (57579) Potassium 5.4 mmol/L (H) 3.7 - 5.2 mmol/L 09-10-2019 Hosp ital [Moles/Vol] 05:52 [facility] (19293) Protein (U) 55 mg/dL (H) 0 - 20 mg/dL 09-10-2019 Hospita l [Mass/Vol] 05:52040 [facility] (54244) Protein (U) 2+ (A) 09-10-2019 Hospital [Mass/Vol] 05: [facility] (46148) Protein 6.5 g/dL (no code) 6.4 - 8.3 g/dL 09-10-2019 Hospita l [Mass/Vol] 05:52 [facility] (53401) Protein/Creatini 0.51 (no code) 09-10-2019 Hospital ne (U) [Ratio] 05:520400 [facility] (05042) RBC (Bld) 3.84 10*6/uL (L) 4.2 - 6.1 09-10-2019 Hospital [#/Vol] 10*6/uL 05:52-0400 [facility] (44778) RBC LM.HPF 2-5/HPF (A) 09-10-2019 Hospital (Urine sed) 05:520400 [facility] [#/Area] [facility] (38976) Sodium 138 mmol/L (no code) 135 - 145 mmol/L 09-10-2019 Hosp ital [Moles/Vol] 05:520400 [facility] (67358) Specific gravity 1.020 (no code) 09-10-2019 Hospital (U) [Rel 05:520400 [facility] density] [facility] (46503) Urate [Mass/Vol] 6.4 mg/dL (no code) 3.5 - 7.2 mg/dL 09-10-2019 Hospital 05:520400 [facility] (62945) Urea nitrogen 34 mg/dL (H) 7 - 20 mg/dL 09-10-2019 Hospi rosa [Mass/Vol] 05:520400 [facility] (56185) Urobilinogen Qn [id number] (A) 09-10-2019 Hospital (U) {Zari'U}/dL 05:52040 [facility] (11293) WBC (Bld) 5.95 10*3/uL (no code) 3.5 - 10.5 09-10-2019 Hospital [#/Vol] 10*3/uL 05:520400 [facility] (76598) WBC LM.HPF Rare/HPF (A) 09-10-2019 Hospital (Urine sed) 05:520400 [facility] [#/Area] [facility] ([id number]) laboratory on 2019-09-08 Tacrolimus 10.3 (no code) 09-08-2019 [facility] ([id number] ) LC/MS/MS (Bld) 05: [Mass/Vol] not yet categorized on 2019-09-06 TACROLIMUS 10.3 (no code) 09-06-2019 Hospital ([id number]), BLOOD 05: [facility] () Urine Volume Urine Volume (no code) 09-06-2019 Hospital Sufficient 05: [facility] (10mL) [facility] (05015) no information Urine Saved if (A) 09-06-2019 Hospital Culture Needed 05: [facility] (48hrs from time [facility] of collection) ([id number]) laboratory on 2019-09-06 Albumin BCG dye 4.4 (no code) 09-06-2019 Hospital [Mass/Vol] 05: [facility] () ALP [Catalytic 111 U/L (no code) 44 - 147 U/L 09-06-2019 Hosp ital activity/Vol] 05: [facility] () ALT [Catalytic 20 U/L (no code) 4 - 40 U/L 09-06-2019 Hospit al activity/Vol] 05: [facility] (69722) Anion gap 14 mmol/L (no code) 3 - 11 mmol/L 09-06-2019 Hospital [Moles/Vol] 05: [facility] (35888) AST [Catalytic 28 U/L (no code) 10 - 34 U/L 09-06-2019 Hospi rosa activity/Vol] 05: [facility] () Bacteria LM Ql Negative (no code) 09-06-2019 Hospital (Urine sed) 05: [facility] (13238) Basophils (Bld) 0.0 10*3/uL (no code) 0 - 0.3 10*3/uL 09-06-2019 Hospital [#/Vol] 05: [facility] (68939) Basophils/100 0.30 % (no code) 0.5 - 1 % 09-06-2019 Hospital WBC (Bld) 05: [facility] (52305) Bilirubin 0.3 mg/dL (no code) 0.1 - 1.2 mg/dL 09-06-2019 Hospit al [Mass/Vol] 05: [facility] () Bilirubin N/A (A) 09-06-2019 Hospital Confirm Ql (U) 05: [facility] () Bilirubin Ql (U) Negative (no code) 09-06-2019 Hospital 05: [facility] () Calcium 8.7 mg/dL (no code) 8.5 - 10.2 mg/dL 09-06-2019 Hospi rosa [Mass/Vol] 05: [facility] () Chloride 113 mmol/L (no code) 95 - 106 mmol/L 09-06-2019 Hospi rosa [Moles/Vol] 05: [facility] () Clarity (U) Clear (no code) 09-06-2019 Hospital 05: [facility] () Color (U) Yellow (no code) 09-06-2019 Hospital 05: [facility] () Creatinine (U) 123.0 mg/dL (H) 09-06-2019 Hospital [Mass/Vol] 05: [facility] () Creatinine 2.26 mg/dL (H) 09-06-2019 Hospital [Mass/Vol] 05: [facility] () Eosinophils 0.1 10*3/uL (no code) 0.05 - 0.5 09-06-2019 Hospita l (Bld) [#/Vol] 10*3/uL 05: [facility] (26931) Eosinophils/100 2.1 % (no code) 1 - 4 % 09-06-2019 Hospit al WBC (Bld) 05: [facility] (67273) Epithelial 0-5/HPF (A) 09-06-2019 Hospital cells.squamous 05: [facility] LM.HPF (Urine [facility] sed) [#/Area] (08336) Erythrocyte 13.4 % (no code) 11.6 - 14.6 % 09-06-2019 Hospit al distribution 05: [facility] width (RBC) [facility] [Ratio] () GFR/1.73 sq 31 (L) 90 - 120 09-06-2019 Hospital M.predicted MDRD mL/min/{1.73_m2} mL/min/{1.73_m2} 05: [facility] (S/P/Bld) [Vol [facility] rate/Area] () Globulin (S) 1.8 g/dL (L) 2 - 3.5 g/dL 09-06-2019 Hospit al [Mass/Vol] 05: [facility] () Glucose 63 mg/dL (L) 60 - 125 mg/dL 09-06-2019 Hospita l [Mass/Vol] 05: [facility] () Glucose Test Negative (no code) 09-06-2019 Hospital strip (U) 05: [facility] [Mass/Vol] [facility] (54131) HCO3 (P) 18 (L) 09-06-2019 Hospital [Moles/Vol] 05: [facility] () Hematocrit (Bld) 38.1 % (L) 36.1 - 50.3 % 09-06-2019 H ospital [Volume 05: [facility] fraction] [facility] () Hemoglobin (Bld) 12.3 g/dL (L) 12.1 - 17.2 g/dL 09-06-2019 Hospital [Mass/Vol] 05: [facility] (53354) Hemoglobin Ql 1+ (A) 09-06-2019 Hospital (U) 05: [facility] () Ketones (U) Negative (no code) 09-06-2019 Hospital [Mass/Vol] 05: [facility] () Leukocyte Negative (no code) 09-06-2019 Hospital esterase Test 05: [facility] strip Ql (U) [facility] (47447) Lymphocytes 0.47 10*3/uL (L) 0.9 - 2.9 09-06-2019 Hospita l (Bld) [#/Vol] 10*3/uL 05: [facility] () Lymphocytes/100 7.6 % (L) 20 - 40 % 09-06-2019 Hospit al WBC (Bld) 05: [facility] () Magnesium 2.0 mg/dL (no code) 1.7 - 2.2 mg/dL 09-06-2019 Hospit al [Mass/Vol] 05: [facility] () MCH (RBC) 31.8 pg (H) 27 - 31 pg 09-06-2019 Hospital [Entitic mass] 05: [facility] () MCHC (RBC) 32.3 g/dL (no code) 32 - 36 g/dL 09-06-2019 Hospital [Mass/Vol] 05: [facility] () MCV (RBC) 98.4 fL (H) 80 - 100 fL 09-06-2019 Hospital [Entitic vol] 05: [facility] () Monocytes (Bld) 0.7 10*3/uL (no code) 0.3 - 0.9 09-06-2019 Hosp ital [#/Vol] 10*3/uL 05: [facility] () Monocytes/100 10.9 % (no code) 2 - 8 % 09-06-2019 Hospital WBC (Bld) 05: [facility] () Neutrophils 4.86 10*3/uL (no code) 1.7 - 7 10*3/uL 09-06-2019 H ospital (Bld) [#/Vol] 05: [facility] (99704) Neutrophils/100 79.1 % (no code) 40 - 60 % 09-06-2019 Hospit al WBC (Bld) 05: [facility] () Nitrite Ql (U) Negative (no code) 09-06-2019 Hospital 05: [facility] () Osmolality Calc 294 (no code) 09-06-2019 Hospital [Osmolality] 05: [facility] () pH (U) 5.5 [pH] (no code) 4.6 - 8 [pH] 09-06-2019 Hospital 05: [facility] () Phosphate 3.3 mg/dL (no code) 2.4 - 4.1 mg/dL 09-06-2019 Hospit al [Mass/Vol] 05: [facility] () Platelet mean 11.5 fL (H) 7.2 - 11.7 fL 09-06-2019 Hosp ital volume (Bld) 05: [facility] [Entitic vol] [facility] () Platelets (Bld) 141 10*3/uL (L) 150 - 450 09-06-2019 Hosp ital [#/Vol] 10*3/uL 05: [facility] () Potassium 5.2 mmol/L (no code) 3.7 - 5.2 mmol/L 09-06-2019 Hosp ital [Moles/Vol] 05: [facility] () Protein (U) 2+ (A) 09-06-2019 Hospital [Mass/Vol] 05: [facility] () Protein (U) 58 mg/dL (H) 0 - 20 mg/dL 09-06-2019 Hospita l [Mass/Vol] 05: [facility] () Protein 6.2 g/dL (no code) 6.4 - 8.3 g/dL 09-06-2019 Hospita l [Mass/Vol] 05: [facility] () Protein/Creatini 0.47 (no code) 09-06-2019 Hospital ne (U) [Ratio] 05: [facility] () RBC (Bld) 3.87 10*6/uL (L) 4.2 - 6.1 09-06-2019 Hospital [#/Vol] 10*6/uL 05: [facility] (74795) RBC LM.HPF 0-2/HPF (A) 09-06-2019 Hospital (Urine sed) 05: [facility] [#/Area] [facility] (31926) Sodium 140 mmol/L (no code) 135 - 145 mmol/L 09-06-2019 Hosp ital [Moles/Vol] 05: [facility] (24643) Specific gravity 1.025 (no code) 09-06-2019 Hospital (U) [Rel 05: [facility] density] [facility] () Tacrolimus 7.8 (no code) 09-06-2019 [facility] ( ) LC/MS/MS (Bld) 10:49-0400 [Mass/Vol] Urate [Mass/Vol] 6.0 mg/dL (no code) 3.5 - 7.2 mg/dL 09-06-2019 Hospital 05: [facility] (84738) Urea nitrogen 34 mg/dL (H) 7 - 20 mg/dL 09-06-2019 Hospi rosa [Mass/Vol] 05: [facility] (65548) Urobilinogen Qn [id number] (A) 09-06-2019 Hospital (U) {Zari'U}/dL 05: [facility] (71209) WBC (Bld) 6.15 10*3/uL (no code) 3.5 - 10.5 09-06-2019 Hospital [#/Vol] 10*3/uL 05: [facility] (64382) WBC LM.HPF Negative (no code) 0 - 5 /[HPF] 09-06-2019 Hospital (Urine sed) 05: [facility] [#/Area] [facility] (29946) not yet categorized on 2019-09-04 TACROLIMUS 7.8 (no code) 09-04-2019 Hospital ([id number]), BLOOD 03:47-0 [facility] (68758) Urine Volume Urine Volume (no code) 09-04-2019 Hospital Sufficient 03:47 [facility] (10mL) [facility] (45866) no information Urine Saved if (A) 09-04-2019 Hospital Culture Needed 03:47 [facility] (48hrs from time [facility] of collection) ([id number]) laboratory on 2019-09-04 Albumin BCG dye 4.2 (no code) 09-04-2019 Hospital [Mass/Vol] 03:47 [facility] (78044) ALP [Catalytic 110 U/L (no code) 44 - 147 U/L 09-04-2019 Hosp ital activity/Vol] 03:47 [facility] () ALT [Catalytic 18 U/L (no code) 4 - 40 U/L 09-04-2019 Hospit al activity/Vol] 03:47 [facility] () Anion gap 12 mmol/L (no code) 3 - 11 mmol/L 09-04-2019 Hospital [Moles/Vol] 03:47 [facility] (22409) AST [Catalytic 20 U/L (no code) 10 - 34 U/L 09-04-2019 Hospi rosa activity/Vol] 03:47 [facility] (25571) Bacteria LM Ql Negative (no code) 09-04-2019 Hospital (Urine sed) 03:47 [facility] (74000) Basophils (Bld) 0.0 10*3/uL (no code) 0 - 0.3 10*3/uL 09-04-2019 Hospital [#/Vol] 03:47 [facility] (96126) Basophils/100 0.40 % (no code) 0.5 - 1 % 09-04-2019 Hospital WBC (Bld) 03:47 [facility] (59266) Bilirubin 0.2 mg/dL (no code) 0.1 - 1.2 mg/dL 09-04-2019 Hospit al [Mass/Vol] 03:47 [facility] () Bilirubin N/A (A) 09-04-2019 Hospital Confirm Ql (U) 03:47 [facility] (51215) Bilirubin Ql (U) Negative (no code) 09-04-2019 Hospital 03: [facility] (92039) Calcium 9.0 mg/dL (no code) 8.5 - 10.2 mg/dL 09-04-2019 Hospi rosa [Mass/Vol] 03: [facility] (61310) Casts LM Ql None Seen (no code) 09-04-2019 Hospital (Urine sed) 03: [facility] (32581) Chloride 112 mmol/L (no code) 95 - 106 mmol/L 09-04-2019 Hospi rosa [Moles/Vol] 03: [facility] (20971) Clarity (U) Clear (no code) 09-04-2019 Hospital 03: [facility] (58449) Color (U) Yellow (no code) 09-04-2019 Hospital 03:47 [facility] (75166) Creatinine (U) 108.8 mg/dL (H) 09-04-2019 Hospital [Mass/Vol] 03: [facility] (62504) Creatinine 2.30 mg/dL (H) 09-04-2019 Hospital [Mass/Vol] 03:47 [facility] (41205) Crystals LM Nom None Seen (no code) 09-04-2019 Hospital (Urine sed) 03: [facility] (66196) Eosinophils 0.1 10*3/uL (no code) 0.05 - 0.5 09-04-2019 Hospita l (Bld) [#/Vol] 10*3/uL 03: [facility] (82931) Eosinophils/100 2.1 % (no code) 1 - 4 % 09-04-2019 Hospit al WBC (Bld) 03: [facility] (83272) Epithelial None (A) 09-04-2019 Hospital cells.squamous 03: [facility] LM.HPF (Urine [facility] sed) [#/Area] (06732) Erythrocyte 13.4 % (no code) 11.6 - 14.6 % 09-04-2019 Hospit al distribution 03:47 [facility] width (RBC) [facility] [Ratio] (99171) GFR/1.73 sq 30 (L) 90 - 120 09-04-2019 Hospital M.predicted MDRD mL/min/{1.73_m2} mL/min/{1.73_m2} 03:47040 [facility] (S/P/Bld) [Vol [facility] rate/Area] (89095) Globulin (S) 1.8 g/dL (L) 2 - 3.5 g/dL 09-04-2019 Hospit al [Mass/Vol] 03:47-040 [facility] (29136) Glucose 124 mg/dL (H) 60 - 125 mg/dL 09-04-2019 Hospita l [Mass/Vol] 03:47040 [facility] (35202) Glucose Test 2+ (A) 09-04-2019 Hospital strip (U) 03:47040 [facility] [Mass/Vol] [facility] (53696) HCO3 (P) 20 (L) 09-04-2019 Hospital [Moles/Vol] 03:470400 [facility] (25549) Hematocrit (Bld) 35.9 % (L) 36.1 - 50.3 % 09-04-2019 H ospital [Volume 03:470400 [facility] fraction] [facility] (55952) Hemoglobin (Bld) 11.5 g/dL (L) 12.1 - 17.2 g/dL 09-04-2019 Hospital [Mass/Vol] 03:47-0400 [facility] (05263) Hemoglobin Ql 1+ (A) 09-04-2019 Hospital (U) 03:47040 [facility] (45815) Ketones (U) Negative (no code) 09-04-2019 Hospital [Mass/Vol] 03:47040 [facility] (01366) Leukocyte Negative (no code) 09-04-2019 Hospital esterase Test 03:47 [facility] strip Ql (U) [facility] () Lymphocytes 0.39 10*3/uL (L) 0.9 - 2.9 09-04-2019 Hospita l (Bld) [#/Vol] 10*3/uL 03:47 [facility] () Lymphocytes/100 7.6 % (L) 20 - 40 % 09-04-2019 Hospit al WBC (Bld) 03: [facility] () Magnesium 1.9 mg/dL (no code) 1.7 - 2.2 mg/dL 09-04-2019 Hospit al [Mass/Vol] 03: [facility] () MCH (RBC) 31.7 pg (H) 27 - 31 pg 09-04-2019 Hospital [Entitic mass] 03: [facility] () MCHC (RBC) 32.0 g/dL (no code) 32 - 36 g/dL 09-04-2019 Hospital [Mass/Vol] 03:47 [facility] () MCV (RBC) 98.9 fL (H) 80 - 100 fL 09-04-2019 Hospital [Entitic vol] 03: [facility] () Monocytes (Bld) 0.6 10*3/uL (no code) 0.3 - 0.9 09-04-2019 Hosp ital [#/Vol] 10*3/uL 03: [facility] () Monocytes/100 11.5 % (no code) 2 - 8 % 09-04-2019 Hospital WBC (Bld) 03: [facility] () Mucus Ql (Urine Negative (A) 09-04-2019 Hospital sed) 03: [facility] (34769) Neutrophils 4.02 10*3/uL (no code) 1.7 - 7 10*3/uL 09-04-2019 H ospital (Bld) [#/Vol] 03: [facility] (27242) Neutrophils/100 78.4 % (no code) 40 - 60 % 09-04-2019 Hospit al WBC (Bld) 03:47 [facility] (52329) Nitrite Ql (U) Negative (no code) 09-04-2019 Hospital 03: [facility] () Osmolality Calc 297 (H) 09-04-2019 Hospital [Osmolality] 03: [facility] () pH (U) 5.0 [pH] (no code) 4.6 - 8 [pH] 09-04-2019 Hospital 03: [facility] () Phosphate 3.6 mg/dL (no code) 2.4 - 4.1 mg/dL 09-04-2019 Hospit al [Mass/Vol] 03: [facility] () Platelet mean 11.7 fL (H) 7.2 - 11.7 fL 09-04-2019 Hosp ital volume (Bld) 03: [facility] [Entitic vol] [facility] (73488) Platelets (Bld) 146 10*3/uL (L) 150 - 450 09-04-2019 Hosp ital [#/Vol] 10*3/uL 03: [facility] () Potassium 5.0 mmol/L (no code) 3.7 - 5.2 mmol/L 09-04-2019 Hosp ital [Moles/Vol] 03: [facility] (75500) Protein (U) 42 mg/dL (H) 0 - 20 mg/dL 09-04-2019 Hospita l [Mass/Vol] 03: [facility] () Protein (U) 1+ (A) 09-04-2019 Hospital [Mass/Vol] 03: [facility] () Protein 6.0 g/dL (no code) 6.4 - 8.3 g/dL 09-04-2019 Hospita l [Mass/Vol] 03: [facility] (42059) Protein/Creatini 0.38 (no code) 09-04-2019 Hospital ne (U) [Ratio] 03:47 [facility] () RBC (Bld) 3.63 10*6/uL (L) 4.2 - 6.1 09-04-2019 Hospital [#/Vol] 10*6/uL 03: [facility] () RBC LM.HPF Negative (no code) 0 - 4 /[HPF] 09-04-2019 Hospital (Urine sed) 03: [facility] [#/Area] [facility] (77848) Sodium 139 mmol/L (no code) 135 - 145 mmol/L 09-04-2019 Hosp ital [Moles/Vol] 03: [facility] () Specific gravity 1.025 (no code) 09-04-2019 Hospital (U) [Rel 03: [facility] density] [facility] () Urate [Mass/Vol] 5.4 mg/dL (no code) 3.5 - 7.2 mg/dL 09-04-2019 Hospital 03:0 [facility] (30978) Urea nitrogen 37 mg/dL (H) 7 - 20 mg/dL 09-04-2019 Hospi rosa [Mass/Vol] 03: [facility] (69292) Urobilinogen Qn [id number] (A) 09-04-2019 Hospital (U) {Zari'U}/dL 03: [facility] ([id number]) WBC (Bld) 5.13 10*3/uL (no code) 3.5 - 10.5 09-04-2019 Hospital [#/Vol] 10*3/uL 03: [facility] ([id number]) WBC LM.HPF Rare/HPF (A) 09-04-2019 Hospital (Urine sed) 03: [facility] [#/Area] [facility] ([id number]) Yeast.budding Ql No Yeast present (no code) 09-04-2019 Hosp ital (Urine sed) 03: [facility] ([id number]) laboratory on 2019-09-01 Tacrolimus 5.1 (no code) 09-01-2019 [facility] ([id number] ) LC/MS/MS (Bld) 05:09 [Mass/Vol] laboratory on 2019-08-31 BK virus DNA Negative (no code) 08-31-2019 [facility] (0000 0) SHIELA+probe 06:32-0400 [#/Vol] BK virus DNA TNP (no code) 08-31-2019 [facility] (0000 0) SHIELA+probe [Log 06:32-0400 #/Vol] CMV DNA TNP (no code) 08-31-2019 [facility] ([id number] ) SHIELA+probe (P) 03:06-0400 [Log units/Vol] CMV DNA Negative (no code) 08-31-2019 [facility] ([id number] ) SHIELA+probe Qn (P) 03:06-0400 not yet categorized on 2019-08-30 TACROLIMUS 5.1 (no code) 08-30-2019 Hospital ([id number]), BLOOD 05:54 [facility] ([id number]) Urine Volume Urine Volume (no code) 08-30-2019 Hospital Sufficient 05:54 [facility] (10mL) [facility] ([id number]) no information Urine Saved if (A) 08-30-2019 Hospital Culture Needed 05:54040 [facility] (48hrs from time [facility] of collection) ([id number]) laboratory on 2019-08-30 Albumin BCG dye 4.3 (no code) 08-30-2019 Hospital [Mass/Vol] 05:54040 [facility] ([id number]) ALP [Catalytic 106 U/L (no code) 44 - 147 U/L 08-30-2019 Hosp ital activity/Vol] 05:54 [facility] ([id number]) ALT [Catalytic 20 U/L (no code) 4 - 40 U/L 08-30-2019 Hospit al activity/Vol] 05:54040 [facility] (48222) Anion gap 10 mmol/L (no code) 3 - 11 mmol/L 08-30-2019 Hospital [Moles/Vol] 05:54 [facility] ([id number]) AST [Catalytic 28 U/L (no code) 10 - 34 U/L 08-30-2019 Hospi rosa activity/Vol] 05:54 [facility] (58599) Bacteria LM Ql Negative (no code) 08-30-2019 Hospital (Urine sed) 05:54 [facility] (77509) Basophils (Bld) 0.0 10*3/uL (no code) 0 - 0.3 10*3/uL 08-30-2019 Hospital [#/Vol] 05:54040 [facility] () Basophils/100 0.40 % (no code) 0.5 - 1 % 08-30-2019 Hospital WBC (Bld) 05:54 [facility] () Bilirubin 0.2 mg/dL (no code) 0.1 - 1.2 mg/dL 08-30-2019 Hospit al [Mass/Vol] 05:54 [facility] () Bilirubin N/A (A) 08-30-2019 Hospital Confirm Ql (U) 05:54 [facility] () Bilirubin Ql (U) Negative (no code) 08-30-2019 Hospital 05: [facility] () Calcium 8.6 mg/dL (no code) 8.5 - 10.2 mg/dL 08-30-2019 Hospi rosa [Mass/Vol] 05:54 [facility] () Chloride 113 mmol/L (no code) 95 - 106 mmol/L 08-30-2019 [facility]pi [facility]sa [Moles/Vol] 05:54040 [facility] (58427) Clarity (U) Clear (no code) 08-30-2019 Hospital 05: [facility] () Color (U) Yellow (no code) 08-30-2019 Hospital 05:54 [facility] (58608) Creatinine (U) 103.9 mg/dL (H) 08-30-2019 Hospital [Mass/Vol] 05:54 [facility] (90960) Creatinine 2.35 mg/dL (H) 08-30-2019 Hospital [Mass/Vol] 05:54040 [facility] (25681) Eosinophils 0.1 10*3/uL (no code) 0.05 - 0.5 08-30-2019 Hospita l (Bld) [#/Vol] 10*3/uL 05:54040 [facility] (89995) Eosinophils/100 1.6 % (no code) 1 - 4 % 08-30-2019 Hospit al WBC (Bld) 05:54040 [facility] (10812) Epithelial 0-5/HPF (A) 08-30-2019 Hospital cells.squamous 05:54 [facility] LM.HPF (Urine [facility] sed) [#/Area] (04815) Erythrocyte 14.2 % (no code) 11.6 - 14.6 % 08-30-2019 Hospit al distribution 05:54 [facility] width (RBC) [facility] [Ratio] (03531) GFR/1.73 sq 30 (L) 90 - 120 08-30-2019 Hospital M.predicted MDRD mL/min/{1.73_m2} mL/min/{1.73_m2} 05:54040 [facility] (S/P/Bld) [Vol [facility] rate/Area] (55506) Globulin (S) 2.0 g/dL (L) 2 - 3.5 g/dL 08-30-2019 Hospit al [Mass/Vol] 05:54 [facility] (59123) Glucose 128 mg/dL (H) 60 - 125 mg/dL 08-30-2019 Hospita l [Mass/Vol] 05:54040 [facility] (96092) Glucose Test Negative (no code) 08-30-2019 Hospital strip (U) 05:54040 [facility] [Mass/Vol] [facility] (43095) HCO3 (P) 20 (L) 08-30-2019 Hospital [Moles/Vol] 05:54040 [facility] (62578) Hematocrit (Bld) 36.8 % (L) 36.1 - 50.3 % 08-30-2019 H ospital [Volume 05:54 [facility] fraction] [facility] (80464) Hemoglobin (Bld) 11.8 g/dL (L) 12.1 - 17.2 g/dL 08-30-2019 Hospital [Mass/Vol] 05:54-0400 [facility] (93403) Hemoglobin Ql 1+ (A) 08-30-2019 Hospital (U) 05: [facility] (19969) Ketones (U) Negative (no code) 08-30-2019 Hospital [Mass/Vol] 05: [facility] (89688) Leukocyte Negative (no code) 08-30-2019 Hospital esterase Test 05: [facility] strip Ql (U) [facility] (91707) Lymphocytes 0.25 10*3/uL (L) 0.9 - 2.9 08-30-2019 Hospita l (Bld) [#/Vol] 10*3/uL 05:54 [facility] (72366) Lymphocytes/100 4.6 % (L) 20 - 40 % 08-30-2019 Hospit al WBC (Bld) 05:54 [facility] (07846) Magnesium 2.0 mg/dL (no code) 1.7 - 2.2 mg/dL 08-30-2019 Hospit al [Mass/Vol] 05:54040 [facility] (55829) MCH (RBC) 32.0 pg (H) 27 - 31 pg 08-30-2019 Hospital [Entitic mass] 05:54 [facility] (20964) MCHC (RBC) 32.1 g/dL (no code) 32 - 36 g/dL 08-30-2019 Hospital [Mass/Vol] 05:54040 [facility] (68429) MCV (RBC) 99.7 fL (H) 80 - 100 fL 08-30-2019 Hospital [Entitic vol] 05:54 [facility] (47622) Monocytes (Bld) 0.5 10*3/uL (no code) 0.3 - 0.9 08-30-2019 Hosp ital [#/Vol] 10*3/uL 05: [facility] () Monocytes/100 8.8 % (no code) 2 - 8 % 08-30-2019 Hospital WBC (Bld) 05:54 [facility] () Neutrophils 4.62 10*3/uL (no code) 1.7 - 7 10*3/uL 08-30-2019 H ospital (Bld) [#/Vol] 05:54 [facility] () Neutrophils/100 84.6 % (H) 40 - 60 % 08-30-2019 Hospit al WBC (Bld) 05: [facility] () Nitrite Ql (U) Negative (no code) 08-30-2019 Hospital 05: [facility] () Osmolality Calc 290 (no code) 08-30-2019 Hospital [Osmolality] 05: [facility] () pH (U) 5.5 [pH] (no code) 4.6 - 8 [pH] 08-30-2019 Hospital 05: [facility] () Phosphate 3.0 mg/dL (no code) 2.4 - 4.1 mg/dL 08-30-2019 Hospit al [Mass/Vol] 05: [facility] () Platelet mean 11.6 fL (H) 7.2 - 11.7 fL 08-30-2019 Hosp ital volume (Bld) 05:54 [facility] [Entitic vol] [facility] (21596) Platelets (Bld) 145 10*3/uL (L) 150 - 450 08-30-2019 Hosp ital [#/Vol] 10*3/uL 05:54 [facility] (22531) Potassium 5.6 mmol/L (H) 3.7 - 5.2 mmol/L 08-30-2019 Hosp ital [Moles/Vol] 05:54 [facility] (88079) Protein (U) 66 mg/dL (H) 0 - 20 mg/dL 08-30-2019 Hospita l [Mass/Vol] 05:54 [facility] () Protein (U) 2+ (A) 08-30-2019 Hospital [Mass/Vol] 05:54 [facility] () Protein 6.3 g/dL (no code) 6.4 - 8.3 g/dL 08-30-2019 Hospita l [Mass/Vol] 05:54 [facility] () Protein/Creatini 0.63 (no code) 08-30-2019 Hospital ne (U) [Ratio] 05: [facility] () RBC (Bld) 3.69 10*6/uL (L) 4.2 - 6.1 08-30-2019 Hospital [#/Vol] 10*6/uL 05: [facility] () RBC LM.HPF Few/HPF (A) 08-30-2019 Hospital (Urine sed) 05:54 [facility] [#/Area] [facility] () Sodium 137 mmol/L (no code) 135 - 145 mmol/L 08-30-2019 Hosp ital [Moles/Vol] 05:54 [facility] () Specific gravity 1.025 (no code) 08-30-2019 Hospital (U) [Rel 05: [facility] density] [facility] (82636) Tacrolimus 10.1 (no code) 08-30-2019 [facility] ([id number] ) LC/MS/MS (Bld) 06: [Mass/Vol] Urate [Mass/Vol] 5.7 mg/dL (no code) 3.5 - 7.2 mg/dL 08-30-2019 Hospital 05:54040 [facility] (15666) Urea nitrogen 29 mg/dL (H) 7 - 20 mg/dL 08-30-2019 Hospi rosa [Mass/Vol] 05:54 [facility] (43199) Urobilinogen Qn [id number] (A) 08-30-2019 Hospital (U) {Zari'U}/dL 05:54-0400 [facility] (75002) WBC (Bld) 5.46 10*3/uL (no code) 3.5 - 10.5 08-30-2019 Hospital [#/Vol] 10*3/uL 05:54-0400 [facility] (77484) WBC LM.HPF Negative (no code) 0 - 5 /[HPF] 08-30-2019 Hospital (Urine sed) 05:540400 [facility] [#/Area] [facility] (70901) not yet categorized on 2019-08-28 BK QUANTITATION Negative (no code) 08-28-2019 Hospital PCR 04: [facility] (07311) CMV QUANT DNA Negative (no code) 08-28-2019 Hospital PCR (PLASMA) 04: [facility] (57551) LOG10 BK QN PCR TEST NOT (no code) 08-28-2019 Hospital PERFORMED. 04: [facility] (09227) LOG10 CMV QN DNA TEST NOT (no code) 08-28-[address] PERFORMED. 04: [facility] (25627) TACROLIMUS 10.1 (no code) 08-28-2019 Hospital ([id number]), BLOOD 04: [facility] (68954) Urine Volume Urine Volume (no code) 08-28-2019 Hospital Sufficient 04: [facility] (10mL) [facility] (70124) no information Urine Saved if (A) 08-28-2019 Hospital Culture Needed 04: [facility] (48hrs from time [facility] of collection) (75383) laboratory on 2019-08-28 Albumin BCG dye 4.3 (no code) 08-28-2019 Hospital [Mass/Vol] 04: [facility] (05554) ALP [Catalytic 112 U/L (no code) 44 - 147 U/L 08-28-2019 Hosp ital activity/Vol] 04: [facility] (35789) ALT [Catalytic 19 U/L (no code) 4 - 40 U/L 08-28-2019 Hospit al activity/Vol] 04: [facility] (13339) Anion gap 12 mmol/L (no code) 3 - 11 mmol/L 08-28-2019 Hospital [Moles/Vol] 04: [facility] (69619) AST [Catalytic 33 U/L (no code) 10 - 34 U/L 08-28-2019 Hospi rosa activity/Vol] 04: [facility] () Bacteria LM Ql Negative (no code) 08-28-2019 Hospital (Urine sed) : [facility] () Basophils (Bld) 0.0 10*3/uL (no code) 0 - 0.3 10*3/uL 08-28-2019 Hospital [#/Vol] 04: [facility] () Basophils/100 0.20 % (no code) 0.5 - 1 % 08-28-2019 Hospital WBC (Bld) 04: [facility] () Bilirubin 0.2 mg/dL (no code) 0.1 - 1.2 mg/dL 08-28-2019 Hospit al [Mass/Vol] 04: [facility] () Bilirubin N/A (A) 08-28-2019 Hospital Confirm Ql (U) [facility] (21417) Bilirubin Ql (U) Negative (no code) 08-28-2019 Hospital 04: [facility] () Calcium 8.8 mg/dL (no code) 8.5 - 10.2 mg/dL 08-28-2019 Hospi rosa [Mass/Vol] 04: [facility] () Casts LM Ql Few Hyaline (no code) 08-28-2019 Hospital (Urine sed) 04: [facility] () Chloride 115 mmol/L (H) 95 - 106 mmol/L 08-28-2019 Hospi rosa [Moles/Vol] 04: [facility] (71528) Clarity (U) Clear (no code) 08-28-2019 Hospital 04: [facility] (26950) Color (U) Yellow (no code) 08-28-2019 Hospital 04: [facility] (25063) Creatinine (U) 130.5 mg/dL (H) 08-28-2019 Hospital [Mass/Vol] 04: [facility] (11377) Creatinine 2.83 mg/dL (H) 08-28-2019 Hospital [Mass/Vol] 04: [facility] (24963) Eosinophils 0.1 10*3/uL (no code) 0.05 - 0.5 08-28-2019 Hospita l (Bld) [#/Vol] 10*3/uL 04: [facility] (24157) Eosinophils/100 2.0 % (no code) 1 - 4 % 08-28-2019 Hospit al WBC (Bld) 04: [facility] (23130) Epithelial 0-5/HPF (A) 08-28-2019 Hospital cells.squamous 04: [facility] LM.HPF (Urine [facility] sed) [#/Area] (54914) Erythrocyte 14.4 % (no code) 11.6 - 14.6 % 08-28-2019 Hospit al distribution 04: [facility] width (RBC) [facility] [Ratio] (31135) GFR/1.73 sq 24 (L) 90 - 120 08-28-2019 Hospital M.predicted MDRD mL/min/{1.73_m2} mL/min/{1.73_m2} 04: [facility] (S/P/Bld) [Vol [facility] rate/Area] (87561) Globulin (S) 2.0 g/dL (L) 2 - 3.5 g/dL 08-28-2019 Hospit al [Mass/Vol] 04: [facility] (97889) Glucose 185 mg/dL (H) 60 - 125 mg/dL 08-28-2019 Hospita l [Mass/Vol] 04: [facility] (89121) Glucose Test 2+ (A) 08-28-2019 Hospital strip (U) 04: [facility] [Mass/Vol] [facility] (22325) HCO3 (P) 17 (L) 08-28-2019 Hospital [Moles/Vol] 04: [facility] (42119) Hematocrit (Bld) 35.8 % (L) 36.1 - 50.3 % 08-28-2019 H ospital [Volume 04: [facility] fraction] [facility] (09806) Hemoglobin (Bld) 11.5 g/dL (L) 12.1 - 17.2 g/dL 08-28-2019 Hospital [Mass/Vol] 04: [facility] (37614) Hemoglobin Ql 2+ (A) 08-28-2019 Hospital (U) 04: [facility] (97118) Ketones (U) Negative (no code) 08-28-2019 Hospital [Mass/Vol] 04: [facility] (14432) Leukocyte Negative (no code) 08-28-2019 Hospital esterase Test : [facility] strip Ql (U) [facility] (90177) Lymphocytes 0.23 10*3/uL (L) 0.9 - 2.9 08-28-2019 Hospita l (Bld) [#/Vol] 10*3/uL 04: [facility] (89684) Lymphocytes/100 4.1 % (L) 20 - 40 % 08-28-2019 Hospit al WBC (Bld) 04: [facility] (63920) Magnesium 2.0 mg/dL (no code) 1.7 - 2.2 mg/dL 08-28-2019 Hospit al [Mass/Vol] 04: [facility] (48872) MCH (RBC) 32.2 pg (H) 27 - 31 pg 08-28-2019 Hospital [Entitic mass] 04: [facility] () MCHC (RBC) 32.1 g/dL (no code) 32 - 36 g/dL 08-28-2019 Hospital [Mass/Vol] 04: [facility] (20567) MCV (RBC) 100.3 fL (H) 80 - 100 fL 08-28-2019 Hospital [Entitic vol] 04: [facility] () Monocytes (Bld) 0.5 10*3/uL (no code) 0.3 - 0.9 08-28-2019 Hosp ital [#/Vol] 10*3/uL 04: [facility] () Monocytes/100 8.6 % (no code) 2 - 8 % 08-28-2019 Hospital WBC (Bld) 04: [facility] () Neutrophils 4.72 10*3/uL (no code) 1.7 - 7 10*3/uL 08-28-2019 H ospital (Bld) [#/Vol] 04: [facility] () Neutrophils/100 85.1 % (H) 40 - 60 % 08-28-2019 Hospit al WBC (Bld) 04: [facility] (95869) Nitrite Ql (U) Negative (no code) 08-28-2019 Hospital 04: [facility] () Osmolality Calc 296 (H) 08-28-2019 Hospital [Osmolality] 04: [facility] () pH (U) 5.5 [pH] (no code) 4.6 - 8 [pH] 08-28-2019 Hospital 04: [facility] () Phosphate 2.7 mg/dL (no code) 2.4 - 4.1 mg/dL 08-28-2019 Hospit al [Mass/Vol] 04: [facility] () Platelet mean 11.6 fL (H) 7.2 - 11.7 fL 08-28-2019 Hosp ital volume (Bld) 04: [facility] [Entitic vol] [facility] (64906) Platelets (Bld) 154 10*3/uL (no code) 150 - 450 08-28-2019 Hosp ital [#/Vol] 10*3/uL 04: [facility] () Potassium 4.9 mmol/L (no code) 3.7 - 5.2 mmol/L 08-28-2019 Hosp ital [Moles/Vol] 04: [facility] (88268) Protein (U) 2+ (A) 08-28-2019 Hospital [Mass/Vol] 04: [facility] () Protein (U) 51 mg/dL (H) 0 - 20 mg/dL 08-28-2019 Hospita l [Mass/Vol] [facility] () Protein 6.3 g/dL (no code) 6.4 - 8.3 g/dL 08-28-2019 Hospita l [Mass/Vol] 04: [facility] () Protein/Creatini 0.39 (no code) 08-28-2019 Hospital ne (U) [Ratio] [facility] () RBC (Bld) 3.57 10*6/uL (L) 4.2 - 6.1 08-28-2019 Hospital [#/Vol] 10*6/uL 04: [facility] () RBC LM.HPF 0-2/HPF (A) 08-28-2019 Hospital (Urine sed) 04 [facility] [#/Area] [facility] ([id number]) Sodium 139 mmol/L (no code) 135 - 145 mmol/L 08-28-2019 Hosp ital [Moles/Vol] 04: [facility] () Specific gravity 1.020 (no code) 08-28-2019 Hospital (U) [Rel 04: [facility] density] [facility] () Urate [Mass/Vol] 6.6 mg/dL (no code) 3.5 - 7.2 mg/dL 08-28-2019 Hospital 04:30 [facility] (34061) Urea nitrogen 26 mg/dL (H) 7 - 20 mg/dL 08-28-2019 Hospi rosa [Mass/Vol] 04:30 [facility] (40793) Urobilinogen Qn [id number] (A) 08-28-2019 Hospital (U) {Zari'U}/dL 04: [facility] (70650) WBC (Bld) 5.55 10*3/uL (no code) 3.5 - 10.5 08-28-2019 Hospital [#/Vol] 10*3/uL 04:30 [facility] (30647) WBC LM.HPF Negative (no code) 0 - 5 /[HPF] 08-28-2019 Hospital (Urine sed) 04: [facility] [#/Area] [facility] (65897) laboratory on 2019-08-25 Tacrolimus 8.2 (no code) 08-25-2019 [facility] (38002 ) LC/MS/MS (Bld) 18:35-0400 [Mass/Vol] not yet categorized on 2019-08-23 TACROLIMUS 8.2 (no code) 08-23-2019 Hospital ([id number]), BLOOD 05:37 [facility] (24977) Urine Volume Urine Volume (no code) 08-23-2019 Hospital Sufficient 05:37 [facility] (10mL) [facility] (21040) no information Urine Saved if (A) 08-23-2019 Hospital Culture Needed 05:37 [facility] (48hrs from time [facility] of collection) ([id number]) laboratory on 2019-08-23 Albumin BCG dye 4.4 (no code) 08-23-2019 Hospital [Mass/Vol] 05:37-0400 [facility] (29163) ALP [Catalytic 99 U/L (no code) 44 - 147 U/L 08-23-2019 Hosp ital activity/Vol] 05:37 [facility] (71207) ALT [Catalytic 17 U/L (no code) 4 - 40 U/L 08-23-2019 Hospit al activity/Vol] 05:37 [facility] () Anion gap 11 mmol/L (no code) 3 - 11 mmol/L 08-23-2019 Hospital [Moles/Vol] 05:37040 [facility] () AST [Catalytic 23 U/L (no code) 10 - 34 U/L 08-23-2019 Hospi rosa activity/Vol] 05:37 [facility] () Bacteria LM Ql Negative (no code) 08-23-2019 Hospital (Urine sed) 05:37 [facility] () Basophils (Bld) 0.0 10*3/uL (no code) 0 - 0.3 10*3/uL 08-23-2019 Hospital [#/Vol] 05:37 [facility] () Basophils/100 0.20 % (no code) 0.5 - 1 % 08-23-2019 Hospital WBC (Bld) 05:37 [facility] () Bilirubin 0.3 mg/dL (no code) 0.1 - 1.2 mg/dL 08-23-2019 Hospit al [Mass/Vol] 05:37 [facility] () Bilirubin N/A (A) 08-23-2019 Hospital Confirm Ql (U) 05:37 [facility] () Bilirubin Ql (U) Negative (no code) 08-23-2019 Hospital 05:37 [facility] () Calcium 9.2 mg/dL (no code) 8.5 - 10.2 mg/dL 08-23-2019 Hospi rosa [Mass/Vol] 05:37 [facility] () Chloride 114 mmol/L (no code) 95 - 106 mmol/L 08-23-2019 Hospi rosa [Moles/Vol] 05:37 [facility] () Clarity (U) Clear (no code) 08-23-2019 Hospital 05:37 [facility] (47817) Color (U) Yellow (no code) 08-23-2019 Hospital 05: [facility] (06192) Creatinine (U) 101.9 mg/dL (H) 08-23-2019 Hospital [Mass/Vol] 05:37 [facility] (54050) Creatinine 2.33 mg/dL (H) 08-23-2019 Hospital [Mass/Vol] 05:37 [facility] (80546) Eosinophils 0.1 10*3/uL (no code) 0.05 - 0.5 08-23-2019 Hospita l (Bld) [#/Vol] 10*3/uL 05: [facility] () Eosinophils/100 2.4 % (no code) 1 - 4 % 08-23-2019 Hospit al WBC (Bld) 05: [facility] (27335) Epithelial None (A) 08-23-2019 Hospital cells.squamous 05:37 [facility] LM.HPF (Urine [facility] sed) [#/Area] (52370) Erythrocyte 14.9 % (H) 11.6 - 14.6 % 08-23-2019 Hospit al distribution 05:37 [facility] width (RBC) [facility] [Ratio] (12933) GFR/1.73 sq 30 (L) 90 - 120 08-23-2019 Hospital M.predicted MDRD mL/min/{1.73_m2} mL/min/{1.73_m2} 05:37 [facility] (S/P/Bld) [Vol [facility] rate/Area] (78129) Globulin (S) 2.3 g/dL (no code) 2 - 3.5 g/dL 08-23-2019 Hospit al [Mass/Vol] 05:37 [facility] (29071) Glucose 119 mg/dL (H) 60 - 125 mg/dL 08-23-2019 Hospita l [Mass/Vol] 05: [facility] (49403) Glucose Test Negative (no code) 08-23-2019 Hospital strip (U) 05:37 [facility] [Mass/Vol] [facility] (14203) HCO3 (P) 20 (L) 08-23-2019 Hospital [Moles/Vol] 05:37 [facility] (87175) Hematocrit (Bld) 37.0 % (L) 36.1 - 50.3 % 08-23-2019 H ospital [Volume 05:37 [facility] fraction] [facility] (14335) Hemoglobin (Bld) 11.7 g/dL (L) 12.1 - 17.2 g/dL 08-23-2019 Hospital [Mass/Vol] 05:37 [facility] () Hemoglobin Ql 1+ (A) 08-23-2019 Hospital (U) 05: [facility] () Ketones (U) Negative (no code) 08-23-2019 Hospital [Mass/Vol] 05:37 [facility] () Leukocyte Negative (no code) 08-23-2019 Hospital esterase Test 05:37 [facility] strip Ql (U) [facility] () Lymphocytes 0.28 10*3/uL (L) 0.9 - 2.9 08-23-2019 Hospita l (Bld) [#/Vol] 10*3/uL 05:37 [facility] () Lymphocytes/100 6.2 % (L) 20 - 40 % 08-23-2019 Hospit al WBC (Bld) 05:37 [facility] () Magnesium 1.9 mg/dL (no code) 1.7 - 2.2 mg/dL 08-23-2019 Hospit al [Mass/Vol] 05:37 [facility] (00183) MCH (RBC) 31.9 pg (H) 27 - 31 pg 08-23-2019 Hospital [Entitic mass] 05:37 [facility] (77993) MCHC (RBC) 31.6 g/dL (L) 32 - 36 g/dL 08-23-2019 Hospital [Mass/Vol] 05:37 [facility] (28266) MCV (RBC) 100.8 fL (H) 80 - 100 fL 08-23-2019 Hospital [Entitic vol] 05:37 [facility] () Monocytes (Bld) 0.4 10*3/uL (no code) 0.3 - 0.9 08-23-2019 Hosp ital [#/Vol] 10*3/uL 05:37 [facility] () Monocytes/100 8.1 % (no code) 2 - 8 % 08-23-2019 Hospital WBC (Bld) 05: [facility] () Neutrophils 3.78 10*3/uL (no code) 1.7 - 7 10*3/uL 08-23-2019 H ospital (Bld) [#/Vol] 05: [facility] () Neutrophils/100 83.1 % (H) 40 - 60 % 08-23-2019 Hospit al WBC (Bld) 05: [facility] () Nitrite Ql (U) Negative (no code) 08-23-2019 Hospital 05: [facility] () Osmolality Calc 294 (no code) 08-23-2019 Hospital [Osmolality] 05: [facility] () pH (U) 5.5 [pH] (no code) 4.6 - 8 [pH] 08-23-2019 Hospital 05: [facility] () Phosphate 3.1 mg/dL (no code) 2.4 - 4.1 mg/dL 08-23-2019 Hospit al [Mass/Vol] 05:37 [facility] (48334) Platelet mean 11.2 fL (H) 7.2 - 11.7 fL 08-23-2019 Hosp ital volume (Bld) 05:37 [facility] [Entitic vol] [facility] ([id number]) Platelets (Bld) 143 10*3/uL (L) 150 - 450 08-23-2019 Hosp ital [#/Vol] 10*3/uL 05: [facility] () Potassium 5.4 mmol/L (H) 3.7 - 5.2 mmol/L 08-23-2019 Hosp ital [Moles/Vol] 05:37 [facility] () Protein (U) 2+ (A) 08-23-2019 Hospital [Mass/Vol] 05: [facility] () Protein (U) 65 mg/dL (H) 0 - 20 mg/dL 08-23-2019 [facility]ospita l [Mass/Vol] 05: [facility] () Protein 6.7 g/dL (no code) 6.4 - 8.3 g/dL 08-23-2019 [facility]ospita l [Mass/Vol] 05: [facility] () Protein/Creatini 0.64 (no code) 08-23-2019 Hospital ne (U) [Ratio] 05: [facility] () RBC (Bld) 3.67 10*6/uL (L) 4.2 - 6.1 08-23-2019 Hospital [#/Vol] 10*6/uL 05: [facility] () RBC LM.HPF 0-2/HPF (A) 08-23-2019 Hospital (Urine sed) 05: [facility]/Area[facility] () Sodium 140 mmol/L (no code) 135 - 145 mmol/L 08-23-2019 [facility] [Moles/Vol] 05: [facility] () Specific gravity 1.025 (no code) 08-23-2019 Hospital (U) [Rel 05: [facility] () Urate [Mass/Vol] 5.4 mg/dL (no code) 3.5 - 7.2 mg/dL 08-23-2019 Hospital 05: [facility] ([id number]) Urea nitrogen 24 mg/dL (no code) 7 - 20 mg/dL 08-23-2019 Hospi [facility]sa [Mass/Vol] 05:37 [facility] ([id number]) Urobilinogen Qn [id number] (A) 08-23-2019 Hospital (U) {Zari'U}/dL 05:37 [facility] ([id number]) WBC (Bld) 4.55 10*3/uL (L) 3.5 - 10.5 08-23-2019 Hospital [#/Vol] 10*3/uL 05:37-399 [facility] ([id number]) WBC LM.HPF Negative (no code) 0 - 5 /[HPF] 08-23-2019 Hospital (Urine sed) 05:37 [facility] [#[facility]Area[facility] ([id number]) laboratory on 2019-08-17 Tacrolimus 14.0 (no code) 08-17-2019 [facility] ([id number] ) LC/MS/MS (Bld) 22:36-0400 [Mass/Vol] not yet categorized on 2019-08-16 TACROLIMUS 14.0 (no code) 08-16-2019 Hospital ([id number]), BLOOD 05: [facility] () Urine Volume Urine Volume (no code) 08-16-2019 Hospital Sufficient 05: [facility] (10mL) [facility] (40079) no information Urine Saved if (A) 08-16-2019 Hospital Culture Needed 05: [facility] (48hrs from time [facility] of collection) ([id number]) laboratory on 2019-08-16 Albumin BCG dye 4.2 (no code) 08-16-2019 Hospital [Mass/Vol] 05: [facility] ([id number]) ALP [Catalytic 100 U/L (no code) 44 - 147 U/L 08-16-2019 Hosp ital activity/Vol] 05: [facility] (56327) ALT [Catalytic 19 U/L (no code) 4 - 40 U/L 08-16-2019 Hospit al activity/Vol] 05: [facility] (69534) Anion gap 12 mmol/L (no code) 3 - 11 mmol/L 08-16-2019 Hospital [Moles/Vol] 05:30 [facility] (78107) AST [Catalytic 23 U/L (no code) 10 - 34 U/L 08-16-2019 Hospi rosa activity/Vol] 05:30 [facility] (46067) Bacteria LM Ql Negative (no code) 08-16-2019 Hospital (Urine sed) 05: [facility] (64693) Basophils (Bld) 0.0 10*3/uL (no code) 0 - 0.3 10*3/uL 08-16-2019 Hospital [#/Vol] 05: [facility] (07335) Basophils/100 0.40 % (no code) 0.5 - 1 % 08-16-2019 Hospital WBC (Bld) 05: [facility] () Bilirubin 0.3 mg/dL (no code) 0.1 - 1.2 mg/dL 08-16-2019 Hospit al [Mass/Vol] 05: [facility] (25798) Bilirubin N/A (A) 08-16-2019 Hospital Confirm Ql (U) 05: [facility] (99129) Bilirubin Ql (U) Negative (no code) 08-16-2019 Hospital 05: [facility] () Calcium 8.6 mg/dL (no code) 8.5 - 10.2 mg/dL 08-16-2019 Hospi rosa [Mass/Vol] 05:30 [facility] (42616) Chloride 118 mmol/L (H) 95 - 106 mmol/L 08-16-2019 [facility]pi [facility]sa [Moles/Vol] 05:30 [facility] (32328) Clarity (U) Clear (no code) 08-16-2019 Hospital 05: [facility] (86637) Color (U) Yellow (no code) 08-16-2019 Hospital 05:30-0400 [facility] (98998) Creatinine (U) 75.0 mg/dL (H) 08-16-2019 Hospital [Mass/Vol] 05: [facility] (53175) Creatinine 2.39 mg/dL (H) 08-16-2019 Hospital [Mass/Vol] 05:30 [facility] (88983) Eosinophils 0.1 10*3/uL (no code) 0.05 - 0.5 08-16-2019 Hospita l (Bld) [#/Vol] 10*3/uL 05:30 [facility] (98450) Eosinophils/100 1.7 % (no code) 1 - 4 % 08-16-2019 Hospit al WBC (Bld) 05: [facility] (99030) Epithelial 0-5/HPF (A) 08-16-2019 Hospital cells.squamous 05: [facility] LM.HPF (Urine [facility] sed) [#/Area] (07925) Erythrocyte 15.4 % (H) 11.6 - 14.6 % 08-16-2019 Hospit al distribution 05: [facility] width (RBC) [facility] [Ratio] (74123) GFR/1.73 sq 29 (L) 90 - 120 08-16-2019 Hospital M.predicted MDRD mL/min/{1.73_m2} mL/min/{1.73_m2} 05: [facility] (S/P/Bld) [Vol [facility] rate/Area] (69241) Globulin (S) 2.1 g/dL (L) 2 - 3.5 g/dL 08-16-2019 Hospit al [Mass/Vol] 05: [facility] (00199) Glucose 65 mg/dL (L) 60 - 125 mg/dL 08-16-2019 Hospita l [Mass/Vol] 05: [facility] (10516) Glucose Test Negative (no code) 08-16-2019 Hospital strip (U) 05: [facility] [Mass/Vol] [facility] (00167) HCO3 (P) 17 (L) 08-16-2019 Hospital [Moles/Vol] 05: [facility] (51236) Hematocrit (Bld) 32.6 % (L) 36.1 - 50.3 % 08-16-2019 H ospital [Volume 05: [facility] fraction] [facility] (18420) Hemoglobin (Bld) 10.3 g/dL (L) 12.1 - 17.2 g/dL 08-16-2019 Hospital [Mass/Vol] 05:30 [facility] (44353) Hemoglobin Ql 2+ (A) 08-16-2019 Hospital (U) 05: [facility] (75478) Ketones (U) Negative (no code) 08-16-2019 Hospital [Mass/Vol] 05: [facility] (01093) Leukocyte Negative (no code) 08-16-2019 Hospital esterase Test 05: [facility] strip Ql (U) [facility] (50280) Lymphocytes 0.26 10*3/uL (L) 0.9 - 2.9 08-16-2019 Hospita l (Bld) [#/Vol] 10*3/uL 05: [facility] (11501) Lymphocytes/100 5.0 % (L) 20 - 40 % 08-16-2019 Hospit al WBC (Bld) 05: [facility] (64379) Magnesium 1.8 mg/dL (no code) 1.7 - 2.2 mg/dL 08-16-2019 Hospit al [Mass/Vol] 05:30 [facility] (66153) MCH (RBC) 31.8 pg (H) 27 - 31 pg 08-16-2019 Hospital [Entitic mass] 05: [facility] (26880) MCHC (RBC) 31.6 g/dL (L) 32 - 36 g/dL 08-16-2019 Hospital [Mass/Vol] 05:30 [facility] (19967) MCV (RBC) 100.6 fL (H) 80 - 100 fL 08-16-2019 Hospital [Entitic vol] 05: [facility] (31470) Monocytes (Bld) 0.5 10*3/uL (no code) 0.3 - 0.9 08-16-2019 Hosp ital [#/Vol] 10*3/uL 05: [facility] () Monocytes/100 10.0 % (no code) 2 - 8 % 08-16-2019 Hospital WBC (Bld) 05: [facility] (05714) Neutrophils 4.33 10*3/uL (no code) 1.7 - 7 10*3/uL 08-16-2019 H ospital (Bld) [#/Vol] 05: [facility] () Neutrophils/100 82.9 % (H) 40 - 60 % 08-16-2019 Hospit al WBC (Bld) 05: [facility] (98970) Nitrite Ql (U) Negative (no code) 08-16-2019 Hospital 05: [facility] (57113) Osmolality Calc 297 (H) 08-16-2019 Hospital [Osmolality] 05: [facility] (15060) pH (U) 5.5 [pH] (no code) 4.6 - 8 [pH] 08-16-2019 Hospital 05: [facility] () Phosphate 3.3 mg/dL (no code) 2.4 - 4.1 mg/dL 08-16-2019 Hospit al [Mass/Vol] 05: [facility] (48544) Platelet mean 11.2 fL (H) 7.2 - 11.7 fL 08-16-2019 Hosp ital volume (Bld) 05: [facility] [Entitic vol] [facility] (44154) Platelets (Bld) 161 10*3/uL (no code) 150 - 450 08-16-2019 Hosp ital [#/Vol] 10*3/uL 05: [facility] (97711) Potassium 5.5 mmol/L (H) 3.7 - 5.2 mmol/L 08-16-2019 Hosp ital [Moles/Vol] 05: [facility] (57971) Protein (U) 1+ (A) 08-16-2019 Hospital [Mass/Vol] 05: [facility] () Protein (U) 47 mg/dL (H) 0 - 20 mg/dL 08-16-2019 Hospita l [Mass/Vol] 05: [facility] (35409) Protein 6.3 g/dL (no code) 6.4 - 8.3 g/dL 08-16-2019 Hospita l [Mass/Vol] 05: [facility] () Protein/Creatini 0.63 (no code) 08-16-2019 Hospital ne (U) [Ratio] 05: [facility] () RBC (Bld) 3.24 10*6/uL (L) 4.2 - 6.1 08-16-2019 Hospital [#/Vol] 10*6/uL 05: [facility] (57539) RBC LM.HPF Few/HPF (A) 08-16-2019 Hospital (Urine sed) 05: [facility]Area[facility] (31115) Sodium 141 mmol/L (no code) 135 - 145 mmol/L 08-16-2019 Hosp ital [Moles/Vol] 05: [facility] (06307) Specific gravity 1.020 (no code) 08-16-2019 Hospital (U) [Rel 05: [facility] density] [facility] (63013) Urate [Mass/Vol] 5.4 mg/dL (no code) 3.5 - 7.2 mg/dL 08-16-2019 Hospital 05: [facility] (75171) Urea nitrogen 35 mg/dL (H) 7 - 20 mg/dL 08-16-2019 Hospi rosa [Mass/Vol] 05: [facility] (06760) Urobilinogen Qn [id number] (A) 08-16-2019 Hospital (U) {Zari'U}/dL 05:30 [facility] (54212) WBC (Bld) 5.22 10*3/uL (no code) 3.5 - 10.5 08-16-2019 Hospital [#/Vol] 10*3/uL 05:30-040 [facility] (52801) WBC LM.HPF Negative (no code) 0 - 5 /[HPF] 08-16-2019 Hospital (Urine sed) 05:30-040 [facility]Area[facility] (08691) laboratory on 2019-08-15 CMV DNA TNP (no code) 08-15-2019 [facility] ([id number] ) SHIELA+probe (P) 19:22-0400 [Log units/Vol] CMV DNA Negative (no code) 08-15-2019 [facility] ([id number] ) SHIELA+probe Qn (P) 19:-0400 Tacrolimus 19.4 (no code) 08-15-2019 [facility] ([id number] ) LC/MS/MS (Bld) 03:53-0400 [Mass/Vol] not yet categorized on 2019-08-13 TACROLIMUS 19.4 (no code) 08-13-2019 Hospital ([id number]), BLOOD 03:45-040 [facility] (71539) Urine Volume Urine Volume (no code) 08-13-2019 Hospital Sufficient 03:45-040 [facility] (10mL) [facility] (00467) no information Urine Saved if (A) 08-13-2019 Hospital Culture Needed 03:45-040 [facility] (48hrs from time [facility] of collection) (79428) laboratory on 2019-08-13 Albumin BCG dye 4.3 (no code) 08-13-2019 Hospital [Mass/Vol] 03:45-0400 [facility] (57103) ALP [Catalytic 108 U/L (no code) 44 - 147 U/L 08-13-2019 Hosp ital activity/Vol] 03:45-399 [facility] (12707) ALT [Catalytic 17 U/L (no code) 4 - 40 U/L 08-13-2019 Hospit al activity/Vol] 03:45 [facility] (42466) Anion gap 9 mmol/L (no code) 3 - 11 mmol/L 08-13-2019 Hospital [Moles/Vol] 03:45 [facility] (15162) AST [Catalytic 17 U/L (no code) 10 - 34 U/L 08-13-2019 Hospi rosa activity/Vol] 03:45 [facility] (54498) Bacteria LM Ql Negative (no code) 08-13-2019 Hospital (Urine sed) 03: [facility] () Basophils (Bld) 0.0 10*3/uL (no code) 0 - 0.3 10*3/uL 08-13-2019 Hospital [#/Vol] 03:45 [facility] () Basophils/100 0.50 % (no code) 0.5 - 1 % 08-13-2019 Hospital WBC (Bld) 03: [facility] () Bilirubin 0.3 mg/dL (no code) 0.1 - 1.2 mg/dL 08-13-2019 Hospit al [Mass/Vol] 03:45 [facility] () Bilirubin N/A (A) 08-13-2019 Hospital Confirm Ql (U) 03: [facility] () Bilirubin Ql (U) Negative (no code) 08-13-2019 Hospital 03:45 [facility] () Calcium 8.9 mg/dL (no code) 8.5 - 10.2 mg/dL 08-13-2019 Hospi rosa [Mass/Vol] 03:45 [facility] (53486) Casts LM Ql 2-5 Hyaline/LPF (no code) 08-13-2019 Hospital (Urine sed) 03: [facility] (38312) Chloride 115 mmol/L (H) 95 - 106 mmol/L 08-13-2019 Hospi rosa [Moles/Vol] 03:45 [facility] (12871) Clarity (U) Clear (no code) 08-13-2019 Hospital 03: [facility] () Color (U) Yellow (no code) 08-13-2019 Hospital 03: [facility] () Creatinine (U) 128.4 mg/dL (H) 08-13-2019 Hospital [Mass/Vol] 03: [facility] () Creatinine 2.62 mg/dL (H) 08-13-2019 Hospital [Mass/Vol] 03: [facility] (88921) Eosinophils 0.1 10*3/uL (no code) 0.05 - 0.5 08-13-2019 Hospita l (Bld) [#/Vol] 10*3/uL 03: [facility] () Eosinophils/100 2.3 % (no code) 1 - 4 % 08-13-2019 Hospit al WBC (Bld) 03: [facility] () Epithelial 0-5/HPF (A) 08-13-2019 Hospital cells.squamous 03: [facility] LM.HPF (Urine [facility] sed) [#/Area] (18393) Erythrocyte 15.4 % (H) 11.6 - 14.6 % 08-13-2019 Hospit al distribution 03: [facility] width (RBC) [facility] [Ratio] (65547) GFR/1.73 sq 26 (L) 90 - 120 08-13-2019 Hospital M.predicted MDRD mL/min/{1.73_m2} mL/min/{1.73_m2} 03: [facility] (S/P/Bld) [Vol [facility] rate/Area] (53290) Globulin (S) 1.9 g/dL (L) 2 - 3.5 g/dL 08-13-2019 Hospit al [Mass/Vol] 03: [facility] () Glucose 147 mg/dL (H) 60 - 125 mg/dL 08-13-2019 Hospita l [Mass/Vol] 03:45040 [facility] (11495) Glucose Test 2+ (A) 08-13-2019 Hospital strip (U) 03: [facility] [Mass/Vol] [facility] (00707) HCO3 (P) 20 (L) 08-13-2019 Hospital [Moles/Vol] 03:45 [facility] () Hematocrit (Bld) 33.6 % (L) 36.1 - 50.3 % 08-13-2019 H ospital [Volume 03:45 [facility] fraction] [facility] () Hemoglobin (Bld) 10.8 g/dL (L) 12.1 - 17.2 g/dL 08-13-2019 Hospital [Mass/Vol] 03:45040 [facility] () Hemoglobin Ql 1+ (A) 08-13-2019 Hospital (U) 03: [facility] () Ketones (U) Negative (no code) 08-13-2019 Hospital [Mass/Vol] 03:45 [facility] () Leukocyte Negative (no code) 08-13-2019 Hospital esterase Test 03: [facility] strip Ql (U) [facility] () Lymphocytes 0.29 10*3/uL (L) 0.9 - 2.9 08-13-2019 Hospita l (Bld) [#/Vol] 10*3/uL 03:45 [facility] () Lymphocytes/100 7.3 % (L) 20 - 40 % 08-13-2019 Hospit al WBC (Bld) 03: [facility] () Magnesium 1.9 mg/dL (no code) 1.7 - 2.2 mg/dL 08-13-2019 Hospit al [Mass/Vol] 03:45 [facility] (47219) MCH (RBC) 32.0 pg (H) 27 - 31 pg 08-13-2019 Hospital [Entitic mass] 03: [facility] (10252) MCHC (RBC) 32.1 g/dL (no code) 32 - 36 g/dL 08-13-2019 Hospital [Mass/Vol] 03:45 [facility] (22302) MCV (RBC) 99.4 fL (H) 80 - 100 fL 08-13-2019 Hospital [Entitic vol] 03:45 [facility] (83703) Monocytes (Bld) 0.4 10*3/uL (no code) 0.3 - 0.9 08-13-2019 Hosp ital [#/Vol] 10*3/uL 03:45 [facility] () Monocytes/100 11.0 % (no code) 2 - 8 % 08-13-2019 Hospital WBC (Bld) 03:45 [facility] (33391) Mucus Ql (Urine 1+ (A) 08-13-2019 Hospital sed) 03:45 [facility] (61675) Neutrophils 3.15 10*3/uL (no code) 1.7 - 7 10*3/uL 08-13-2019 H ospital (Bld) [#/Vol] 03: [facility] () Neutrophils/100 78.9 % (no code) 40 - 60 % 08-13-2019 Hospit al WBC (Bld) 03:45 [facility] (14036) Nitrite Ql (U) Negative (no code) 08-13-2019 Hospital 03: [facility] (86337) Osmolality Calc 294 (no code) 08-13-2019 Hospital [Osmolality] 03:45 [facility] (72612) pH (U) 5.5 [pH] (no code) 4.6 - 8 [pH] 08-13-2019 Hospital 03: [facility] (02832) Phosphate 3.0 mg/dL (no code) 2.4 - 4.1 mg/dL 08-13-2019 Hospit al [Mass/Vol] 03:45 [facility] (46084) Platelet mean 11.4 fL (H) 7.2 - 11.7 fL 08-13-2019 Hosp ital volume (Bld) 03: [facility] [Entitic vol] [facility] (39217) Platelets (Bld) 183 10*3/uL (no code) 150 - 450 08-13-2019 Hosp ital [#/Vol] 10*3/uL 03: [facility] () Potassium 4.7 mmol/L (no code) 3.7 - 5.2 mmol/L 08-13-2019 Hosp ital [Moles/Vol] 03:45 [facility] (84195) Protein (U) 1+ (A) 08-13-2019 Hospital [Mass/Vol] 03: [facility] () Protein (U) 43 mg/dL (H) 0 - 20 mg/dL 08-13-2019 Hospita l [Mass/Vol] 03: [facility] () Protein 6.2 g/dL (no code) 6.4 - 8.3 g/dL 08-13-2019 Hospita l [Mass/Vol] 03:45 [facility] () Protein/Creatini 0.33 (no code) 08-13-2019 Hospital ne (U) [Ratio] 03: [facility] () RBC (Bld) 3.38 10*6/uL (L) 4.2 - 6.1 08-13-2019 Hospital [#/Vol] 10*6/uL 03:45040 [facility] (74572) RBC LM.HPF 2-5/HPF (A) 08-13-2019 Hospital (Urine sed) 03: [facility] [#/Area] [facility] (67048) Sodium 139 mmol/L (no code) 135 - 145 mmol/L 08-13-2019 Hosp ital [Moles/Vol] 03:45 [facility] (67636) Specific gravity 1.025 (no code) 08-13-2019 Hospital (U) [Rel 03:45-0400 [facility] density] [facility] (43107) Urate [Mass/Vol] 5.7 mg/dL (no code) 3.5 - 7.2 mg/dL 08-13-2019 Hospital 03:45040 [facility] (04008) Urea nitrogen 27 mg/dL (H) 7 - 20 mg/dL 08-13-2019 Hospi rosa [Mass/Vol] 03:45 [facility] (83200) Urobilinogen Qn [id number] (A) 08-13-2019 Hospital (U) {Zari'U}/dL 03: [facility] (17084) WBC (Bld) 3.99 10*3/uL (L) 3.5 - 10.5 08-13-2019 Hospital [#/Vol] 10*3/uL 03:45 [facility] (07738) WBC LM.HPF Negative (no code) 0 - 5 /[HPF] 08-13-2019 Hospital (Urine sed) 03:45 [facility] [#/Area] [facility] (78485) Yeast.budding Ql No Yeast present (no code) 08-13-2019 Hosp ital (Urine sed) 03:45 [facility] (47979) laboratory on 2019-08-11 Tacrolimus 10.0 (no code) 08-11-2019 [facility] ([id number] ) LC/MS/MS (Bld) 04: [Mass/Vol] not yet categorized on 2019-08-09 TACROLIMUS 10.0 (no code) 08-09-2019 Hospital ([id number]), BLOOD 05:38 [facility] (28801) Urine Volume Urine Volume (no code) 08-09-2019 Hospital Sufficient 05: [facility] (10mL) [facility] (25672) no information Urine Saved if (A) 08-09-2019 Hospital Culture Needed 05:38 [facility] (48hrs from time [facility] of collection) ([id number]) laboratory on 2019-08-09 Albumin BCG dye 4.1 (no code) 08-09-2019 Hospital [Mass/Vol] 05:38 [facility] () ALP [Catalytic 93 U/L (no code) 44 - 147 U/L 08-09-2019 Hosp ital activity/Vol] 05: [facility] () ALT [Catalytic 15 U/L (no code) 4 - 40 U/L 04 Hospit al activity/Vol] 05: [facility] () Anion gap 11 mmol/L (no code) 3 - 11 mmol/L 04 Hospital [Moles/Vol] 05:38 [facility] () AST [Catalytic 23 U/L (no code) 10 - 34 U/L 08-09-2019 Hospi rosa activity/Vol] 05:38 [facility] () Bacteria LM Ql Negative (no code) 08-09-2019 Hospital (Urine sed) 05: [facility] () Basophils (Bld) 0.0 10*3/uL (no code) 0 - 0.3 10*3/uL 04 Hospital [#/Vol] 05:38 [facility] () Basophils/100 0.60 % (no code) 0.5 - 1 % 08-09-2019 Hospital WBC (Bld) 05: [facility] () Bilirubin 0.3 mg/dL (no code) 0.1 - 1.2 mg/dL 08-09-2019 Hospit al [Mass/Vol] 05:38 [facility] () Bilirubin N/A (A) 08-09-2019 Hospital Confirm Ql (U) 05: [facility] () Bilirubin Ql (U) Negative (no code) 08-09-2019 Hospital 05: [facility] () Calcium 8.6 mg/dL (no code) 8.5 - 10.2 mg/dL 08-09-2019 Hospi rosa [Mass/Vol] 05: [facility] (28470) Chloride 115 mmol/L (H) 95 - 106 mmol/L 08-09-2019 Hospi rosa [Moles/Vol] 05:38040 [facility] () Clarity (U) Clear (no code) 08-09-2019 Hospital 05:38040 [facility] (28389) Color (U) Yellow (no code) 08-09-2019 Hospital 05:38 [facility] () Creatinine (U) 96.5 mg/dL (H) 08-09-2019 Hospital [Mass/Vol] 05:38 [facility] (63496) Creatinine 2.43 mg/dL (H) 08-09-2019 Hospital [Mass/Vol] 05:38 [facility] () Eosinophils 0.1 10*3/uL (no code) 0.05 - 0.5 08-09-2019 Hospita l (Bld) [#/Vol] 10*3/uL 05:38040 [facility] () Eosinophils/100 2.6 % (no code) 1 - 4 % 08-09-2019 Hospit al WBC (Bld) 05:38 [facility] () Erythrocyte 15.2 % (H) 11.6 - 14.6 % 08-09-2019 Hospit al distribution 05:38040 [facility] width (RBC) [facility] [Ratio] (39034) GFR/1.73 sq 29 (L) 90 - 120 08-09-2019 Hospital M.predicted MDRD mL/min/{1.73_m2} mL/min/{1.73_m2} 05:38040 [facility] (S/P/Bld) [Vol [facility] rate/Area] (89586) Globulin (S) 1.9 g/dL (L) 2 - 3.5 g/dL 08-09-2019 Hospit al [Mass/Vol] 05:380400 [facility] (57588) Glucose 125 mg/dL (H) 60 - 125 mg/dL 08-09-2019 Hospita l [Mass/Vol] 05:38 [facility] (33534) Glucose Test Trace (A) 08-09-2019 Hospital strip (U) 05:38 [facility] [Mass/Vol] [facility] (48906) HCO3 (P) 16 (L) 08-09-2019 Hospital [Moles/Vol] 05:38 [facility] (32670) Hematocrit (Bld) 29.1 % (L) 36.1 - 50.3 % 08-09-2019 H ospital [Volume 05:38040 [facility] fraction] [facility] (25043) Hemoglobin (Bld) 9.5 g/dL (L) 12.1 - 17.2 g/dL 08-09-2019 Hospital [Mass/Vol] 05:38 [facility] (15779) Hemoglobin Ql 1+ (A) 08-09-2019 Hospital (U) 05: [facility] () Ketones (U) Negative (no code) 08-09-2019 Hospital [Mass/Vol] 05:38 [facility] (82028) Leukocyte Negative (no code) 08-09-2019 Hospital esterase Test 05: [facility] strip Ql (U) [facility] (91932) Lymphocytes 0.27 10*3/uL (L) 0.9 - 2.9 08-09-2019 Hospita l (Bld) [#/Vol] 10*3/uL 05:38 [facility] (53893) Lymphocytes/100 5.8 % (L) 20 - 40 % 08-09-2019 Hospit al WBC (Bld) 05:38 [facility] (33920) Magnesium 1.7 mg/dL (no code) 1.7 - 2.2 mg/dL 08-09-2019 Hospit al [Mass/Vol] 05:38040 [facility] (73748) MCH (RBC) 32.5 pg (H) 27 - 31 pg 08-09-2019 Hospital [Entitic mass] 05:38 [facility] (93160) MCHC (RBC) 32.6 g/dL (no code) 32 - 36 g/dL 08-09-2019 Hospital [Mass/Vol] 05:38 [facility] (33856) MCV (RBC) 99.7 fL (H) 80 - 100 fL 08-09-2019 Hospital [Entitic vol] 05:38 [facility] () Monocytes (Bld) 0.5 10*3/uL (no code) 0.3 - 0.9 08-09-2019 Hosp ital [#/Vol] 10*3/uL 05:38 [facility] () Monocytes/100 10.2 % (no code) 2 - 8 % 08-09-2019 Hospital WBC (Bld) 05: [facility] () Neutrophils 3.73 10*3/uL (no code) 1.7 - 7 10*3/uL 08-09-2019 H ospital (Bld) [#/Vol] 05: [facility] (43109) Neutrophils/100 80.8 % (H) 40 - 60 % 08-09-2019 Hospit al WBC (Bld) 05: [facility] (89399) Nitrite Ql (U) Negative (no code) 08-09-2019 Hospital 05: [facility] (58786) Osmolality Calc 291 (no code) 08-09-2019 Hospital [Osmolality] 05:38 [facility] () pH (U) 6.0 [pH] (no code) 4.6 - 8 [pH] 08-09-2019 Hospital 05:38 [facility] (04248) Phosphate 2.9 mg/dL (no code) 2.4 - 4.1 mg/dL 08-09-2019 Hospit al [Mass/Vol] 05:[id number] [facility] ([id number]) Platelet mean 12.1 fL (H) 7.2 - 11.7 fL 08-09-2019 Hosp ital volume (Bld) 05:38 [facility] [Entitic vol] [facility] ([id number]) Platelets (Bld) 88 10*3/uL (L) 150 - 450 08-09-2019 Hospi rosa [#/Vol] 10*3/uL 05: [facility] () Potassium 4.7 mmol/L (no code) 3.7 - 5.2 mmol/L 08-09-2019 Hosp ital [Moles/Vol] 05:38 [facility] () Protein (U) 1+ (A) 08-09-2019 Hospital [Mass/Vol] 05: [facility] () Protein (U) 37 mg/dL (H) 0 - 20 mg/dL 08-09-2019 Hospita l [Mass/Vol] 05: [facility] () Protein 6.0 g/dL (no code) 6.4 - 8.3 g/dL 08-09-2019 Hospita l [Mass/Vol] 05: [facility] () Protein/Creatini 0.39 (no code) 08-09-2019 Hospital ne (U) [Ratio] 05: [facility] () RBC (Bld) 2.92 10*6/uL (L) 4.2 - 6.1 08-09-2019 Hospital [#/Vol] 10*6/uL 05: [facility] () RBC LM.HPF 2-5/HPF (A) 08-09-2019 Hospital (Urine sed) 05: [facility]/Area[facility] () Sodium 137 mmol/L (no code) 135 - 145 mmol/L 08-09-2019 Hosp ital [Moles/Vol] 05: [facility] () Specific gravity 1.025 (no code) 08-09-2019 Hospital (U) [Rel 05: [facility] () Urate [Mass/Vol] 5.4 mg/dL (no code) 3.5 - 7.2 mg/dL 08-09-2019 Hospital 05:38 [facility] ([id number]) Urea nitrogen 33 mg/dL (H) 7 - 20 mg/dL 08-09-2019 Hospi rosa [Mass/Vol] 05:380400 [facility] (64808) Urobilinogen Qn [id number] (A) 08-09-2019 Hospital (U) {Zari'U}/dL 05:38 [facility] (30863) WBC (Bld) 4.62 10*3/uL (L) 3.5 - 10.5 08-09-2019 Hospital [#/Vol] 10*3/uL 05:380 [facility] (64315) WBC LM.HPF Rare/HPF (A) 08-09-2019 Hospital (Urine sed) 05:38 [facility] [#/Area] [facility] (97525) Yeast.budding Ql No Yeast present (no code) 08-09-2019 Hosp ital (Urine sed) 05:38 [facility] (52426) laboratory on 2019-08-08 Tacrolimus 11.6 (no code) 08-08-2019 [facility] ([id number] ) LC/MS/MS (Bld) 11:44-0400 [Mass/Vol] not yet categorized on 2019-08-06 TACROLIMUS 11.6 (no code) 08-06-2019 Hospital ([id number]), BLOOD 03:36 [facility] (22861) Urine Volume Urine Volume (no code) 08-06-2019 Hospital Sufficient 03: [facility] (10mL) [facility] (47836) no information Urine Saved if (A) 08-06-2019 Hospital Culture Needed 03: [facility] (48hrs from time [facility] of collection) ([id number]) laboratory on 2019-08-06 Albumin BCG dye 4.1 (no code) 08-06-2019 Hospital [Mass/Vol] 03:36 [facility] (92242) ALP [Catalytic 102 U/L (no code) 44 - 147 U/L 08-06-2019 Hosp ital activity/Vol] 03: [facility] (01290) ALT [Catalytic 16 U/L (no code) 4 - 40 U/L 08-06-2019 Hospit al activity/Vol] 03:36 [facility] () Anion gap 10 mmol/L (no code) 3 - 11 mmol/L 08-06-2019 Hospital [Moles/Vol] 03:36 [facility] () AST [Catalytic 21 U/L (no code) 10 - 34 U/L 08-06-2019 Hospi rosa activity/Vol] 03:36 [facility] () Bacteria LM Ql Negative (no code) 08-06-2019 Hospital (Urine sed) 03: [facility] () Basophils (Bld) 0.0 10*3/uL (no code) 0 - 0.3 10*3/uL 08-06-2019 Hospital [#/Vol] 03:36 [facility] () Basophils/100 0.20 % (no code) 0.5 - 1 % 08-06-2019 Hospital WBC (Bld) 03:36 [facility] () Bilirubin 0.3 mg/dL (no code) 0.1 - 1.2 mg/dL 08-06-2019 Hospit al [Mass/Vol] 03:36 [facility] () Bilirubin N/A (A) 08-06-2019 Hospital Confirm Ql (U) 03:36 [facility] () Bilirubin Ql (U) Negative (no code) 08-06-2019 Hospital 03:36 [facility] () Calcium 8.6 mg/dL (no code) 8.5 - 10.2 mg/dL 08-06-2019 [facility]pi [facility]sa [Mass/Vol] 03:36 [facility] () Casts LM Ql None Seen (no code) 08-06-2019 Hospital (Urine sed) 03: [facility] () Chloride 117 mmol/L (H) 95 - 106 mmol/L 08-06-2019 Hospi [facility]sa [Moles/Vol] 03:36 [facility] (68722) Clarity (U) Clear (no code) 08-06-2019 Hospital 03: [facility] (09178) Color (U) Yellow (no code) 08-06-2019 Hospital 03:36 [facility] (76282) Creatinine (U) 106.9 mg/dL (H) 08-06-2019 Hospital [Mass/Vol] 03:36 [facility] (59633) Creatinine 2.54 mg/dL (H) 08-06-2019 Hospital [Mass/Vol] 03: [facility] (39354) Crystals LM Nom None Seen (no code) 08-06-2019 Hospital (Urine sed) 03:36 [facility] (85853) Eosinophils 0.1 10*3/uL (no code) 0.05 - 0.5 08-06-2019 Hospita l (Bld) [#/Vol] 10*3/uL 03:36 [facility] (89429) Eosinophils/100 1.6 % (no code) 1 - 4 % 08-06-2019 Hospit al WBC (Bld) 03:36 [facility] (61524) Epithelial 0-5/HPF (A) 08-06-2019 Hospital cells.squamous 03:36 [facility] LM.HPF (Urine [facility] sed) [#/Area] (56173) Erythrocyte 15.6 % (H) 11.6 - 14.6 % 08-06-2019 Hospit al distribution 03:36 [facility] width (RBC) [facility] [Ratio] (50446) GFR/1.73 sq 27 (L) 90 - 120 08-06-2019 Hospital M.predicted MDRD mL/min/{1.73_m2} mL/min/{1.73_m2} 03:36 [facility] (S/P/Bld) [Vol [facility] rate/Area] (75509) Globulin (S) 1.8 g/dL (L) 2 - 3.5 g/dL 08-06-2019 Hospit al [Mass/Vol] 03:36 [facility] (73285) Glucose 59 mg/dL (L) 60 - 125 mg/dL 08-06-2019 Hospita l [Mass/Vol] 03:36 [facility] (36923) Glucose Test Trace (A) 08-06-2019 Hospital strip (U) 03: [facility] [Mass/Vol] [facility] (43640) HCO3 (P) 18 (L) 08-06-2019 Hospital [Moles/Vol] 03:36 [facility] () Hematocrit (Bld) 28.7 % (L) 36.1 - 50.3 % 08-06-2019 H ospital [Volume 03:36 [facility] fraction] [facility] () Hemoglobin (Bld) 9.4 g/dL (L) 12.1 - 17.2 g/dL 08-06-2019 Hospital [Mass/Vol] 03:36 [facility] (04973) Hemoglobin Ql 2+ (A) 08-06-2019 Hospital (U) 03: [facility] (93342) Ketones (U) Negative (no code) 08-06-2019 Hospital [Mass/Vol] 03:36 [facility] (46100) Leukocyte Negative (no code) 08-06-2019 Hospital esterase Test 03: [facility] strip Ql (U) [facility] (21224) Lymphocytes 0.30 10*3/uL (L) 0.9 - 2.9 08-06-2019 Hospita l (Bld) [#/Vol] 10*3/uL 03:36 [facility] (87527) Lymphocytes/100 6.0 % (L) 20 - 40 % 08-06-2019 Hospit al WBC (Bld) 03:36 [facility] (80536) Magnesium 1.8 mg/dL (no code) 1.7 - 2.2 mg/dL 08-06-2019 Hospit al [Mass/Vol] 03:36 [facility] (97865) MCH (RBC) 32.1 pg (H) 27 - 31 pg 08-06-2019 Hospital [Entitic mass] 03:36 [facility] (00608) MCHC (RBC) 32.8 g/dL (no code) 32 - 36 g/dL 08-06-2019 Hospital [Mass/Vol] 03:36 [facility] () MCV (RBC) 98.0 fL (H) 80 - 100 fL 08-06-2019 Hospital [Entitic vol] 03:36 [facility] () Monocytes (Bld) 0.6 10*3/uL (no code) 0.3 - 0.9 08-06-2019 Hosp ital [#/Vol] 10*3/uL 03:36 [facility] () Monocytes/100 11.6 % (no code) 2 - 8 % 08-06-2019 Hospital WBC (Bld) 03:36 [facility] (57093) Mucus Ql (Urine Negative (A) 08-06-2019 Hospital sed) 03: [facility] () Neutrophils 4.02 10*3/uL (no code) 1.7 - 7 10*3/uL 08-06-2019 H ospital (Bld) [#/Vol] 03: [facility] () Neutrophils/100 80.6 % (H) 40 - 60 % 08-06-2019 Hospit al WBC (Bld) 03:36 [facility] (09759) Nitrite Ql (U) Negative (no code) 08-06-2019 Hospital 03: [facility] (05335) Osmolality Calc 292 (no code) 08-06-2019 Hospital [Osmolality] 03: [facility] (93955) pH (U) 6.0 [pH] (no code) 4.6 - 8 [pH] 08-06-2019 Hospital 03: [facility] (56321) Phosphate 2.7 mg/dL (no code) 2.4 - 4.1 mg/dL 08-06-2019 Hospit al [Mass/Vol] 03:36 [facility] (90482) Platelet mean 11.3 fL (H) 7.2 - 11.7 fL 08-06-2019 Hosp ital volume (Bld) 03:36 [facility] [Entitic vol] [facility] (62804) Platelets (Bld) 155 10*3/uL (no code) 150 - 450 08-06-2019 Hosp ital [#/Vol] 10*3/uL 03:36 [facility] () Potassium 4.7 mmol/L (no code) 3.7 - 5.2 mmol/L 08-06-2019 Hosp ital [Moles/Vol] 03:36 [facility] () Protein (U) 1+ (A) 08-06-2019 Hospital [Mass/Vol] 03: [facility] () Protein (U) 39 mg/dL (H) 0 - 20 mg/dL 08-06-2019 Hospita l [Mass/Vol] 03:36 [facility] () Protein 5.9 g/dL (L) 6.4 - 8.3 g/dL 08-06-2019 Hospita l [Mass/Vol] 03:36 [facility] () Protein/Creatini 0.37 (no code) 08-06-2019 Hospital ne (U) [Ratio] 03:36 [facility] (67062) RBC (Bld) 2.93 10*6/uL (L) 4.2 - 6.1 08-06-2019 Hospital [#/Vol] 10*6/uL 03: [facility] () RBC LM.HPF Rare/HPF (A) 08-06-2019 Hospital (Urine sed) 03:36 [facility] [#/Area] [facility] (32113) Sodium 140 mmol/L (no code) 135 - 145 mmol/L 08-06-2019 Hosp ital [Moles/Vol] 03:36 [facility] (96658) Specific gravity 1.020 (no code) 08-06-2019 Hospital (U) [Rel 03:36 [facility] density] [facility] (81260) Urate [Mass/Vol] 5.6 mg/dL (no code) 3.5 - 7.2 mg/dL 08-06-2019 Hospital 03:360 [facility] (65000) Urea nitrogen 27 mg/dL (H) 7 - 20 mg/dL 08-06-2019 Hospi rosa [Mass/Vol] 03:36 [facility] (61478) Urobilinogen Qn [id number] (A) 08-06-2019 Hospital (U) {Zari'U}/dL 03: [facility] (78143) WBC (Bld) 4.99 10*3/uL (L) 3.5 - 10.5 08-06-2019 Hospital [#/Vol] 10*3/uL 03:360 [facility] (66984) WBC LM.HPF 0-2/HPF (A) 08-06-2019 Hospital (Urine sed) 03:36 [facility] [#/Area] [facility] (29544) Yeast.budding Ql No Yeast present (no code) 08-06-2019 Hosp ital (Urine sed) 03:36 [facility] (01774) laboratory on 2019-08-04 Tacrolimus 19.7 (no code) 08-04-2019 [facility] ([id number] ) LC/MS/MS (Bld) 19:13-0400 [Mass/Vol] not yet categorized on 2019-08-02 TACROLIMUS 19.7 (no code) 08-02-2019 Hospital ([id number]), BLOOD 07: [facility] (85896) Urine Volume Urine Volume (no code) 08-02-2019 Hospital Sufficient 07: [facility] (10mL) [facility] (75668) no information Urine Saved if (A) 08-02-2019 Hospital Culture Needed 07: [facility] (48hrs from time [facility] of collection) ([id number]) laboratory on 2019-08-02 Albumin BCG dye 4.1 (no code) 08-02-2019 Hospital [Mass/Vol] 07: [facility] (89114) ALP [Catalytic 97 U/L (no code) 44 - 147 U/L 08-02-2019 Hosp ital activity/Vol] 07: [facility] () ALT [Catalytic 14 U/L (no code) 4 - 40 U/L 08-02-2019 Hospit al activity/Vol] 07: [facility] () Anion gap 11 mmol/L (no code) 3 - 11 mmol/L 08-02-2019 Hospital [Moles/Vol] 07: [facility] (82191) AST [Catalytic 18 U/L (no code) 10 - 34 U/L 08-02-2019 Hospi rosa activity/Vol] 07: [facility] (70472) Bacteria LM Ql Trace (A) 08-02-2019 Hospital (Urine sed) 07: [facility] (08906) Basophils (Bld) 0.0 10*3/uL (no code) 0 - 0.3 10*3/uL 08-02-2019 Hospital [#/Vol] 07: [facility] (03789) Basophils/100 0.30 % (no code) 0.5 - 1 % 08-02-2019 Hospital WBC (Bld) 07: [facility] (15943) Bilirubin 0.2 mg/dL (no code) 0.1 - 1.2 mg/dL 08-02-2019 Hospit al [Mass/Vol] 07: [facility] (07008) Bilirubin N/A (A) 08-02-2019 Hospital Confirm Ql (U) 07: [facility] (43454) Bilirubin Ql (U) Negative (no code) 08-02-2019 Hospital 07: [facility] () Calcium 8.9 mg/dL (no code) 8.5 - 10.2 mg/dL 08-02-2019 Hospi rosa [Mass/Vol] 07: [facility] (39100) Chloride 117 mmol/L (H) 95 - 106 mmol/L 08-02-2019 Hospi rosa [Moles/Vol] 07: [facility] (30243) Clarity (U) Clear (no code) 08-02-2019 Hospital 07: [facility] (02899) Color (U) Yellow (no code) 08-02-2019 Hospital 07: [facility] (87389) Creatinine (U) 143.0 mg/dL (H) 08-02-2019 Hospital [Mass/Vol] 07: [facility] (82854) Creatinine 3.06 mg/dL (H) 08-02-2019 Hospital [Mass/Vol] 07: [facility] (73830) Crystals LM Nom Calcium Oxalate (no code) 08-02-2019 Hospit al (Urine sed) 07: [facility] (86066) Eosinophils 0.1 10*3/uL (no code) 0.05 - 0.5 08-02-2019 Hospita l (Bld) [#/Vol] 10*3/uL 07: [facility] (07745) Eosinophils/100 1.9 % (no code) 1 - 4 % 08-02-2019 Hospit al WBC (Bld) 07: [facility] (07094) Epithelial 0-5/HPF (A) 08-02-2019 Hospital cells.squamous 07: [facility] LM.HPF (Urine [facility] sed) [#/Area] (58041) Erythrocyte 14.8 % (no code) 11.6 - 14.6 % 08-02-2019 Hospit al distribution 07: [facility] width (RBC) [facility] [Ratio] (12842) GFR/1.73 sq 22 (L) 90 - 120 08-02-2019 Hospital M.predicted MDRD mL/min/{1.73_m2} mL/min/{1.73_m2} 07: [facility] (S/P/Bld) [Vol [facility] rate/Area] (09898) Globulin (S) 2.0 g/dL (L) 2 - 3.5 g/dL 08-02-2019 Hospit al [Mass/Vol] 07: [facility] () Glucose 51 mg/dL (L) 60 - 125 mg/dL 08-02-2019 Hospita l [Mass/Vol] 07: [facility] () Glucose Test Trace (A) 08-02-2019 Hospital strip (U) 07: [facility] [Mass/Vol] [facility] (40476) HCO3 (P) 16 (L) 08-02-2019 Hospital [Moles/Vol] 07: [facility] () Hematocrit (Bld) 29.0 % (L) 36.1 - 50.3 % 08-02-2019 H ospital [Volume 07: [facility] fraction] [facility] () Hemoglobin (Bld) 9.6 g/dL (L) 12.1 - 17.2 g/dL 08-02-2019 Hospital [Mass/Vol] 07: [facility] () Hemoglobin Ql 1+ (A) 08-02-2019 Hospital (U) 07: [facility] () Ketones (U) Negative (no code) 08-02-2019 Hospital [Mass/Vol] 07: [facility] (06678) Leukocyte Negative (no code) 08-02-2019 Hospital esterase Test 07: [facility] strip Ql (U) [facility] (67725) Lymphocytes 0.31 10*3/uL (L) 0.9 - 2.9 08-02-2019 Hospita l (Bld) [#/Vol] 10*3/uL 07: [facility] (44769) Lymphocytes/100 8.3 % (L) 20 - 40 % 08-02-2019 Hospit al WBC (Bld) 07: [facility] (78385) Magnesium 1.9 mg/dL (no code) 1.7 - 2.2 mg/dL 08-02-2019 Hospit al [Mass/Vol] 07: [facility] (80067) MCH (RBC) 31.8 pg (H) 27 - 31 pg 08-02-2019 Hospital [Entitic mass] 07: [facility] (84713) MCHC (RBC) 33.1 g/dL (no code) 32 - 36 g/dL 08-02-2019 Hospital [Mass/Vol] 07: [facility] () MCV (RBC) 96.0 fL (no code) 80 - 100 fL 08-02-2019 Hospital [Entitic vol] 07: [facility] () Monocytes (Bld) 0.4 10*3/uL (no code) 0.3 - 0.9 08-02-2019 Hosp ital [#/Vol] 10*3/uL 07: [facility] () Monocytes/100 9.4 % (no code) 2 - 8 % 08-02-2019 Hospital WBC (Bld) 07: [facility] (04807) Neutrophils 3.00 10*3/uL (no code) 1.7 - 7 10*3/uL 08-02-2019 H ospital (Bld) [#/Vol] 07: [facility] (31931) Neutrophils/100 80.1 % (H) 40 - 60 % 08-02-2019 Hospit al WBC (Bld) 07: [facility] (46029) Nitrite Ql (U) Negative (no code) 08-02-2019 Hospital 07: [facility] (31813) Osmolality Calc 292 (no code) 08-02-2019 Hospital [Osmolality] 07: [facility] () pH (U) 5.5 [pH] (no code) 4.6 - 8 [pH] 08-02-2019 Hospital 07: [facility] (56797) Phosphate 2.4 mg/dL (L) 2.4 - 4.1 mg/dL 08-02-2019 Hospit al [Mass/Vol] 07: [facility] (04194) Platelet mean 11.1 fL (H) 7.2 - 11.7 fL 08-02-2019 Hosp ital volume (Bld) 07: [facility] [Entitic vol] [facility] (28177) Platelets (Bld) 181 10*3/uL (no code) 150 - 450 08-02-2019 Hosp ital [#/Vol] 10*3/uL 07: [facility] () Potassium 4.6 mmol/L (no code) 3.7 - 5.2 mmol/L 08-02-2019 Hosp ital [Moles/Vol] 07: [facility] (58923) Protein (U) 1+ (A) 08-02-2019 Hospital [Mass/Vol] 07: [facility] (52376) Protein (U) 46 mg/dL (H) 0 - 20 mg/dL 08-02-2019 Hospita l [Mass/Vol] 07: [facility] (04956) Protein 6.1 g/dL (no code) 6.4 - 8.3 g/dL 08-02-2019 Hospita l [Mass/Vol] 07: [facility] (15005) Protein/Creatini 0.32 (no code) 08-02-2019 Hospital ne (U) [Ratio] 07: [facility] (27439) RBC (Bld) 3.02 10*6/uL (L) 4.2 - 6.1 08-02-2019 Hospital [#/Vol] 10*6/uL 07: [facility] (73286) RBC LM.HPF Rare/HPF (A) 08-02-2019 Hospital (Urine sed) 07: [facility] [#/Area] [facility] (17908) Sodium 139 mmol/L (no code) 135 - 145 mmol/L 08-02-2019 Hosp ital [Moles/Vol] 07:11 [facility] (69772) Specific gravity 1.025 (no code) 08-02-2019 Hospital (U) [Rel 07:11 [facility] density] [facility] (66925) Urate [Mass/Vol] 6.4 mg/dL (no code) 3.5 - 7.2 mg/dL 08-02-2019 Hospital 07:11 [facility] (83247) Urea nitrogen 35 mg/dL (H) 7 - 20 mg/dL 08-02-2019 Hospi rosa [Mass/Vol] 07: [facility] (91216) Urobilinogen Qn [id number] (A) 08-02-2019 Hospital (U) {Zari'U}/dL 07: [facility] (14760) WBC (Bld) 3.74 10*3/uL (L) 3.5 - 10.5 08-02-2019 Hospital [#/Vol] 10*3/uL 07:11 [facility] (96080) WBC LM.HPF Negative (no code) 0 - 5 /[HPF] 08-02-2019 Hospital (Urine sed) 07: [facility] [#/Area] [facility] (48546) laboratory on 2019-08-01 BK virus DNA Negative (no code) 08-01-2019 [facility] (0000 0) SHIELA+probe 10:49-0400 [#/Vol] BK virus DNA TNP (no code) 08-01-2019 [facility] (0000 0) SHIELA+probe [Log 10:49-0400 #/Vol] Tacrolimus 20.7 (HH) 08-01-2019 [facility] ([id number] ) LC/MS/MS (Bld) 08:31-0400 [Mass/Vol] not yet categorized on 2019-07-30 BK QUANTITATION Negative (no code) 07-30-2019 Hospital PCR 03:51-0400 [facility] (53936) CMV QUANT DNA Negative (no code) 07-30-2019 Hospital PCR (PLASMA) 03: [facility] (61449) LOG10 BK QN PCR TEST NOT (no code) 07-30-2019 Hospital PERFORMED. 03: [facility] (13793) LOG10 CMV QN DNA TEST NOT (no code) 07-30-[address] PERFORMED. 03: [facility] (15370) TACROLIMUS 20.7 (HH) 07-30-2019 Hospital ([id number]), BLOOD 03: [facility] (08452) Urine Volume Urine Volume (no code) 07-30-2019 Hospital Sufficient 03: [facility] (10mL) [facility] (06326) no information Urine Saved if (A) 07-30-2019 Hospital Culture Needed 03: [facility] (48hrs from time [facility] of collection) (21695) 2-5 Sperm/HPF laboratory on 2019-07-30 Albumin BCG dye 4.1 (no code) 07-30-2019 Hospital [Mass/Vol] 03: [facility] (75227) ALP [Catalytic 107 U/L (no code) 44 - 147 U/L 07-30-2019 Hosp ital activity/Vol] 03:51 [facility] (59842) ALT [Catalytic 20 U/L (no code) 4 - 40 U/L 07-30-2019 Hospit al activity/Vol] 03:51 [facility] (61049) Anion gap 13 mmol/L (no code) 3 - 11 mmol/L 07-30-2019 Hospital [Moles/Vol] 03:51 [facility] (04475) AST [Catalytic 19 U/L (no code) 10 - 34 U/L 07-30-2019 Hospi rosa activity/Vol] 03:51 [facility] (64701) Bacteria LM Ql Negative (no code) 07-30-2019 Hospital (Urine sed) 03: [facility] (60427) Basophils (Bld) 0.0 10*3/uL (no code) 0 - 0.3 10*3/uL 03-23-2020 Hospital [#/Vol] 03:51-0400 [facility] (69967) Basophils/100 0.70 % (no code) 0.5 - 1 % 07-30-2019 Hospital WBC (Bld) 03:51 [facility] () Bilirubin 0.2 mg/dL (no code) 0.1 - 1.2 mg/dL 07-30-2019 Hospit al [Mass/Vol] 03:51040 [facility] () Bilirubin N/A (A) 07-30-2019 Hospital Confirm Ql (U) 03: [facility] () Bilirubin Ql (U) Negative (no code) 07-30-2019 Hospital 03:51 [facility] () Calcium 8.5 mg/dL (no code) 8.5 - 10.2 mg/dL 07-30-2019 Hospi rosa [Mass/Vol] 03:51 [facility] () Chloride 119 mmol/L (H) 95 - 106 mmol/L 07-30-2019 Hospi rosa [Moles/Vol] 03:51 [facility] () Clarity (U) Clear (no code) 07-30-2019 Hospital 03:51 [facility] () Color (U) Yellow (no code) 07-30-2019 Hospital 03:51 [facility] () Creatinine (U) 146.6 mg/dL (H) 07-30-2019 Hospital [Mass/Vol] 03:51 [facility] (84213) Creatinine 3.07 mg/dL (H) 07-30-2019 Hospital [Mass/Vol] 03:51040 [facility] () Eosinophils 0.1 10*3/uL (no code) 0.05 - 0.5 07-30-2019 Hospita l (Bld) [#/Vol] 10*3/uL 03:51 [facility] (71355) Eosinophils/100 1.8 % (no code) 1 - 4 % 07-30-2019 Hospit al WBC (Bld) 03:51 [facility] (41706) Epithelial 0-5/HPF (A) 07-30-2019 Hospital cells.squamous 03:51040 [facility] LM.HPF (Urine [facility] sed) [#/Area] (83544) Erythrocyte 14.8 % (no code) 11.6 - 14.6 % 07-30-2019 Hospit al distribution 03:51 [facility] width (RBC) [facility] [Ratio] (88703) GFR/1.73 sq 22 (L) 90 - 120 07-30-2019 Hospital M.predicted MDRD mL/min/{1.73_m2} mL/min/{1.73_m2} 03:51 [facility] (S/P/Bld) [Vol [facility] rate/Area] (27859) Globulin (S) 2.1 g/dL (L) 2 - 3.5 g/dL 07-30-2019 Hospit al [Mass/Vol] 03: [facility] (83585) Glucose 66 mg/dL (L) 60 - 125 mg/dL 07-30-2019 Hospita l [Mass/Vol] 03:51 [facility] (35412) Glucose Test Negative (no code) 07-30-2019 Hospital strip (U) 03:51 [facility] [Mass/Vol] [facility] (02768) HCO3 (P) 14 (L) 07-30-2019 Hospital [Moles/Vol] 03:51040 [facility] (23467) Hematocrit (Bld) 29.0 % (L) 36.1 - 50.3 % 07-30-2019 H ospital [Volume 03: [facility] fraction] [facility] (84447) Hemoglobin (Bld) 9.4 g/dL (L) 12.1 - 17.2 g/dL 07-30-2019 Hospital [Mass/Vol] 03:51 [facility] (48751) Hemoglobin Ql 1+ (A) 07-30-2019 Hospital (U) 03:51-0400 [facility] (32197) Ketones (U) Negative (no code) 07-30-2019 Hospital [Mass/Vol] 03: [facility] (77943) Leukocyte Negative (no code) 07-30-2019 Hospital esterase Test 03: [facility] strip Ql (U) [facility] (43311) Lymphocytes 0.28 10*3/uL (L) 0.9 - 2.9 07-30-2019 Hospita l (Bld) [#/Vol] 10*3/uL 03:51 [facility] () Lymphocytes/100 9.9 % (L) 20 - 40 % 07-30-2019 Hospit al WBC (Bld) 03: [facility] () Magnesium 1.7 mg/dL (no code) 1.7 - 2.2 mg/dL 07-30-2019 Hospit al [Mass/Vol] 03: [facility] ([id number]) MCH (RBC) 31.8 pg (H) 27 - 31 pg 07-30-2019 Hospital [Entitic mass] 03: [facility] ([id number]) MCHC (RBC) 32.4 g/dL (no code) 32 - 36 g/dL 07-30-2019 Hospital [Mass/Vol] 03: [facility] ([id number]) MCV (RBC) 98.0 fL (H) 80 - 100 fL 07-30-2019 Hospital [Entitic vol] 03:51 [facility] ([id number]) Monocytes (Bld) 0.3 10*3/uL (no code) 0.3 - 0.9 07-30-2019 Hosp ital [#/Vol] 10*3/uL 03: [facility] ([id number]) Monocytes/100 11.3 % (no code) 2 - 8 % 07-30-2019 Hospital WBC (Bld) 03: [facility] ([id number]) Mucus Ql (Urine 1+ (A) 07-30-2019 Hospital sed) 03: [facility] ([id number]) Neutrophils 2.15 10*3/uL (no code) 1.7 - 7 10*3/uL 07-30-2019 H ospital (Bld) [#/Vol] 03:51 [facility] ([id number]) Neutrophils/100 76.3 % (no code) 40 - 60 % 07-30-2019 Hospit al WBC (Bld) 03: [facility] ([id number]) Nitrite Ql (U) Negative (no code) 07-30-2019 Hospital 03: [facility] ([id number]) Osmolality Calc 294 (no code) 07-30-2019 Hospital [Osmolality] 03: [facility] () pH (U) 5.5 [pH] (no code) 4.6 - 8 [pH] 07-30-2019 Hospital 03: [facility] () Phosphate 2.7 mg/dL (no code) 2.4 - 4.1 mg/dL 07-30-2019 Hospit al [Mass/Vol] 03: [facility] ([id number]) Platelet mean 11.0 fL (H) 7.2 - 11.7 fL 07-30-2019 Hosp ital volume (Bld) 03: [facility] [Entitic vol] [facility] (07645) Platelets (Bld) 164 10*3/uL (no code) 150 - 450 07-30-2019 Hosp ital [#/Vol] 10*3/uL 03: [facility] (22486) Potassium 4.8 mmol/L (no code) 3.7 - 5.2 mmol/L 07-30-2019 Hosp ital [Moles/Vol] 03: [facility] (49629) Protein (U) 2+ (A) 07-30-2019 Hospital [Mass/Vol] 03: [facility] (43464) Protein (U) 61 mg/dL (H) 0 - 20 mg/dL 07-30-2019 Hospita l [Mass/Vol] 03:51-0400 [facility] (94232) Protein 6.2 g/dL (no code) 6.4 - 8.3 g/dL 07-30-2019 Hospita l [Mass/Vol] 03:510400 [facility] (79783) Protein/Creatini 0.42 (no code) 07-30-2019 Hospital ne (U) [Ratio] 03:51 [facility] (14625) RBC (Bld) 2.96 10*6/uL (L) 4.2 - 6.1 07-30-2019 Hospital [#/Vol] 10*6/uL 03:0 [facility] (23654) RBC LM.HPF 5-10/HPF (A) 07-30-2019 Hospital (Urine sed) 03: [facility] [#/Area] [facility] (63828) Sodium 141 mmol/L (no code) 135 - 145 mmol/L 07-30-2019 Hosp ital [Moles/Vol] 03: [facility] (42399) Specific gravity 1.020 (no code) 07-30-2019 Hospital (U) [Rel 03: [facility] density] [facility] (58974) Urate [Mass/Vol] 6.4 mg/dL (no code) 3.5 - 7.2 mg/dL 07-30-2019 Hospital 03: [facility] (49183) Urea nitrogen 26 mg/dL (H) 7 - 20 mg/dL 07-30-2019 Hospi rosa [Mass/Vol] 03: [facility] (16106) Urobilinogen Qn [id number] (A) 07-30-2019 Hospital (U) {Zari'U}/dL 03: [facility] (07422) WBC (Bld) 2.82 10*3/uL (L) 3.5 - 10.5 07-30-2019 Hospital [#/Vol] 10*3/uL 03: [facility] (41750) WBC LM.HPF Negative (no code) 0 - 5 /[HPF] 07-30-2019 Hospital (Urine sed) 03:51 [facility] [#/Area] [facility] (06645) Yeast.budding Ql No Yeast present (no code) 07-30-2019 Hosp ital (Urine sed) 03:51-0 [facility] (52470) laboratory on 2019-07-28 Tacrolimus 14.4 (no code) 07-28-2019 [facility] ([id number] ) LC/MS/MS (Bld) 01: [Mass/Vol] not yet categorized on 2019-07-26 TACROLIMUS 14.4 (no code) 07-26-2019 Hospital ([id number]), BLOOD 05: [facility] (07683) Urine Volume Urine Volume (no code) 07-26-2019 Hospital Sufficient 05: [facility] (10mL) [facility] (57994) no information Urine Saved if (A) 07-26-2019 Hospital Culture Needed 05: [facility] (48hrs from time [facility] of collection) ([id number]) laboratory on 2019-07-26 Albumin BCG dye 4.1 (no code) 07-26-2019 Hospital [Mass/Vol] 05: [facility] (26858) ALP [Catalytic 114 U/L (no code) 44 - 147 U/L 07-26-2019 Hosp ital activity/Vol] 05: [facility] (99484) ALT [Catalytic 24 U/L (no code) 4 - 40 U/L 07-26-2019 Hospit al activity/Vol] 05: [facility] (11995) Anion gap 13 mmol/L (no code) 3 - 11 mmol/L 07-26-2019 Hospital [Moles/Vol] 05: [facility] (58625) AST [Catalytic 22 U/L (no code) 10 - 34 U/L 07-26-2019 Hospi rosa activity/Vol] 05: [facility] (61177) Bacteria LM Ql Negative (no code) 07-26-2019 Hospital (Urine sed) 05: [facility] (89129) Basophils (Bld) 0.0 10*3/uL (no code) 0 - 0.3 10*3/uL 07-26-2019 Hospital [#/Vol] 05: [facility] (75422) Basophils/100 0.60 % (no code) 0.5 - 1 % 07-26-2019 Hospital WBC (Bld) 05: [facility] () Bilirubin 0.2 mg/dL (no code) 0.1 - 1.2 mg/dL 07-26-2019 Hospit al [Mass/Vol] 05: [facility] () Bilirubin N/A (A) 07-26-2019 Hospital Confirm Ql (U) 05: [facility] () Bilirubin Ql (U) Negative (no code) 07-26-2019 Hospital 05: [facility] () Calcium 8.6 mg/dL (no code) 8.5 - 10.2 mg/dL 07-26-2019 Hospi rosa [Mass/Vol] 05: [facility] () Casts LM Ql Few Granular (no code) 07-26-2019 Hospital (Urine sed) 05: [facility] (86071) Chloride 113 mmol/L (no code) 95 - 106 mmol/L 07-26-2019 Hospi rosa [Moles/Vol] 05: [facility] (04600) Clarity (U) Clear (no code) 07-26-2019 Hospital 05: [facility] (30654) Color (U) Yellow (no code) 07-26-2019 Hospital 05: [facility] (76096) Creatinine (U) 229.5 mg/dL (H) 07-26-2019 Hospital [Mass/Vol] 05: [facility] (77769) Creatinine 3.28 mg/dL (H) 07-26-2019 Hospital [Mass/Vol] 05:10-0400 [facility] (06293) Eosinophils 0.1 10*3/uL (no code) 0.05 - 0.5 07-26-2019 Hospita l (Bld) [#/Vol] 10*3/uL 05: [facility] (78142) Eosinophils/100 4.0 % (no code) 1 - 4 % 07-26-2019 Hospit al WBC (Bld) 05: [facility] () Epithelial 0-5/HPF (A) 07-26-2019 Hospital cells.squamous 05: [facility] LM.HPF (Urine [facility] sed) [#/Area] () Erythrocyte 14.3 % (no code) 11.6 - 14.6 % 07-26-2019 Hospit al distribution 05: [facility] width (RBC) [facility] [Ratio] () GFR/1.73 sq 20 (L) 90 - 120 07-26-2019 Hospital M.predicted MDRD mL/min/{1.73_m2} mL/min/{1.73_m2} 05: [facility] (S/P/Bld) [Vol [facility] rate/Area] () Globulin (S) 2.0 g/dL (L) 2 - 3.5 g/dL 07-26-2019 Hospit al [Mass/Vol] 05: [facility] () Glucose 50 mg/dL (L) 60 - 125 mg/dL 07-26-2019 Hospita l [Mass/Vol] 05: [facility] (05895) Glucose Test Trace (A) 07-26-2019 Hospital strip (U) 05: [facility] [Mass/Vol] [facility] () HCO3 (P) 18 (L) 07-26-2019 Hospital [Moles/Vol] 05: [facility] (27443) Hematocrit (Bld) 26.7 % (L) 36.1 - 50.3 % 07-26-2019 H ospital [Volume 05: [facility] fraction] [facility] (30196) Hemoglobin (Bld) 8.8 g/dL (L) 12.1 - 17.2 g/dL 07-26-2019 Hospital [Mass/Vol] 05: [facility] (70021) Hemoglobin Ql 1+ (A) 07-26-2019 Hospital (U) 05: [facility] (46831) Ketones (U) Negative (no code) 07-26-2019 Hospital [Mass/Vol] 05: [facility] (06285) Leukocyte Negative (no code) 07-26-2019 Hospital esterase Test 05: [facility] strip Ql (U) [facility] (77417) Lymphocytes 0.16 10*3/uL (L) 0.9 - 2.9 07-26-2019 Hospita l (Bld) [#/Vol] 10*3/uL 05: [facility] () Lymphocytes/100 9.1 % (L) 20 - 40 % 07-26-2019 Hospit al WBC (Bld) 05: [facility] () Magnesium 1.7 mg/dL (no code) 1.7 - 2.2 mg/dL 07-26-2019 Hospit al [Mass/Vol] 05: [facility] (51511) MCH (RBC) 31.8 pg (H) 27 - 31 pg 07-26-2019 Hospital [Entitic mass] 05: [facility] (15814) MCHC (RBC) 33.0 g/dL (no code) 32 - 36 g/dL 07-26-2019 Hospital [Mass/Vol] 05: [facility] (53004) MCV (RBC) 96.4 fL (no code) 80 - 100 fL 07-26-2019 Hospital [Entitic vol] 05: [facility] (30705) Monocytes (Bld) 0.2 10*3/uL (no code) 0.3 - 0.9 07-26-2019 Hosp ital [#/Vol] 10*3/uL 05: [facility] (12021) Monocytes/100 12.5 % (H) 2 - 8 % 07-26-2019 Hospital WBC (Bld) 05: [facility] () Neutrophils 1.30 10*3/uL (L) 1.7 - 7 10*3/uL 07-26-2019 H ospital (Bld) [#/Vol] 05: [facility] () Neutrophils/100 73.8 % (no code) 40 - 60 % 07-26-2019 Hospit al WBC (Bld) 05: [facility] () Nitrite Ql (U) Negative (no code) 07-26-2019 Hospital 05: [facility] () Osmolality Calc 290 (no code) 07-26-2019 Hospital [Osmolality] 05: [facility] () pH (U) 5.5 [pH] (no code) 4.6 - 8 [pH] 07-26-2019 Hospital 05: [facility] () Phosphate 3.5 mg/dL (no code) 2.4 - 4.1 mg/dL 07-26-2019 Hospit al [Mass/Vol] 05: [facility] () Platelet mean 11.3 fL (H) 7.2 - 11.7 fL 07-26-2019 Hosp ital volume (Bld) 05: [facility] [Entitic vol] [facility] (49193) Platelets (Bld) 121 10*3/uL (L) 150 - 450 07-26-2019 Hosp ital [#/Vol] 10*3/uL 05: [facility] () Potassium 5.0 mmol/L (no code) 3.7 - 5.2 mmol/L 07-26-2019 Hosp ital [Moles/Vol] 05: [facility] () Protein (U) 2+ (A) 07-26-2019 Hospital [Mass/Vol] 05:10-0400 [facility] () Protein (U) 81 mg/dL (H) 0 - 20 mg/dL 07-26-2019 Hospita l [Mass/Vol] 05: [facility] () Protein 6.1 g/dL (no code) 6.4 - 8.3 g/dL 07-26-2019 Hospita l [Mass/Vol] 05: [facility] () Protein/Creatini 0.35 (no code) 07-26-2019 Hospital ne (U) [Ratio] 05: [facility] () RBC (Bld) 2.77 10*6/uL (L) 4.2 - 6.1 07-26-2019 Hospital [#/Vol] 10*6/uL 05: [facility] () RBC LM.HPF Few/HPF (A) 07-26-2019 Hospital (Urine sed) 05: [facility] [#/Area] [facility] () Sodium 139 mmol/L (no code) 135 - 145 mmol/L 07-26-2019 Hosp ital [Moles/Vol] 05: [facility] () Specific gravity >=1.030 (A) 07-26-2019 Hospital (U) [Rel 05: [facility] density] [facility] () Urate [Mass/Vol] 6.2 mg/dL (no code) 3.5 - 7.2 mg/dL 07-26-2019 Hospital 05: [facility] () Urea nitrogen 29 mg/dL (H) 7 - 20 mg/dL 07-26-2019 Hospi rosa [Mass/Vol] 05: [facility] () Urobilinogen Qn [id number] (A) 07-26-2019 Hospital (U) {Zari'U}/dL 05: [facility] (59131) WBC (Bld) 1.76 10*3/uL (L) 3.5 - 10.5 07-26-2019 Hospital [#/Vol] 10*3/uL 05:10 [facility] (42954) WBC LM.HPF Negative (no code) 0 - 5 /[HPF] 07-26-2019 Hospital (Urine sed) 05:10 [facility] [#/Area] [facility] (25223) laboratory on 2019-07-21 Tacrolimus 8.4 (no code) 07-21-2019 [facility] ([id number] ) LC/MS/MS (Bld) 00:51-0400 [Mass/Vol] not yet categorized on 2019-07-19 Tacrolimus 8.4 (no code) 07-19-2019 Hospital ([id number]), Blood 05: [facility] (10385) Urine Volume Urine Volume (no code) 07-19-2019 Hospital Sufficient 05:39 [facility] (10mL) [facility] (89301) no information Sperm present, (A) 07-19-2019 Hospital Urine Saved if 05:39 [facility] Culture Needed [facility] (48hrs from time (54779) of collection) laboratory on 2019-07-19 Albumin BCG dye 4.1 (no code) 07-19-2019 Hospital [Mass/Vol] 05:390400 [facility] (51752) ALP [Catalytic 119 U/L (no code) 44 - 147 U/L 07-19-2019 Hosp ital activity/Vol] 05:39 [facility] (31890) ALT [Catalytic 13 U/L (no code) 4 - 40 U/L 07-19-2019 Hospit al activity/Vol] 05:39040 [facility] (89867) Anion gap 12 mmol/L (no code) 3 - 11 mmol/L 07-19-2019 Hospital [Moles/Vol] 05:39 [facility] (46661) AST [Catalytic 16 U/L (no code) 10 - 34 U/L 07-19-2019 Hospi rosa activity/Vol] 05:39 [facility] (68391) Bacteria LM Ql Negative (no code) 07-19-2019 Hospital (Urine sed) 05:39 [facility] (03341) Basophils (Bld) 0.0 10*3/uL (no code) 0 - 0.3 10*3/uL 07-19-2019 Hospital [#/Vol] 05:39040 [facility] (11021) Basophils/100 0.20 % (no code) 0.5 - 1 % 07-19-2019 Hospital WBC (Bld) 05: [facility] (66580) Bilirubin 0.2 mg/dL (no code) 0.1 - 1.2 mg/dL 07-19-2019 Hospit al [Mass/Vol] 05:39 [facility] () Bilirubin N/A (A) 07-19-2019 Hospital Confirm Ql (U) 05: [facility] (04247) Bilirubin Ql (U) Negative (no code) 07-19-2019 Hospital 05: [facility] () Calcium 9.0 mg/dL (no code) 8.5 - 10.2 mg/dL 07-19-2019 Hospi rosa [Mass/Vol] 05:39 [facility] (19629) Chloride 117 mmol/L (H) 95 - 106 mmol/L 07-19-2019 Hospi rosa [Moles/Vol] 05:39 [facility] (23027) Clarity (U) Clear (no code) 07-19-2019 Hospital 05: [facility] (37353) Color (U) Yellow (no code) 07-19-2019 Hospital 05: [facility] (23798) Creatinine (U) 145.4 mg/dL (H) 07-19-2019 Hospital [Mass/Vol] 05:39 [facility] (43034) Creatinine 2.95 mg/dL (H) 07-19-2019 Hospital [Mass/Vol] 05:39 [facility] (51610) Eosinophils 0.1 10*3/uL (no code) 0.05 - 0.5 07-19-2019 Hospita l (Bld) [#/Vol] 10*3/uL 05:39 [facility] (52296) Eosinophils/100 3.1 % (no code) 1 - 4 % 07-19-2019 Hospit al WBC (Bld) 05:39 [facility] (37184) Epithelial 0-5/HPF (A) 07-19-2019 Hospital cells.squamous 05:39 [facility] LM.HPF (Urine [facility] sed) [#/Area] (14872) Erythrocyte 14.0 % (no code) 11.6 - 14.6 % 07-19-2019 Hospit al distribution 05:39 [facility] width (RBC) [facility] [Ratio] (37391) GFR/1.73 sq 23 (L) 90 - 120 07-19-2019 Hospital M.predicted MDRD mL/min/{1.73_m2} mL/min/{1.73_m2} 05:39 [facility] (S/P/Bld) [Vol [facility] rate/Area] (26091) Globulin (S) 2.0 g/dL (L) 2 - 3.5 g/dL 07-19-2019 Hospit al [Mass/Vol] 05:39 [facility] (33666) Glucose 68 mg/dL (L) 60 - 125 mg/dL 07-19-2019 Hospita l [Mass/Vol] 05:39 [facility] () Glucose Test Negative (no code) 07-19-2019 Hospital strip (U) 05:39 [facility] [Mass/Vol] [facility] (44799) HCO3 (P) 17 (L) 07-19-2019 Hospital [Moles/Vol] 05:39 [facility] (60118) Hematocrit (Bld) 27.2 % (L) 36.1 - 50.3 % 07-19-2019 H ospital [Volume 05:39 [facility] fraction] [facility] (60445) Hemoglobin (Bld) 8.9 g/dL (L) 12.1 - 17.2 g/dL 07-19-2019 Hospital [Mass/Vol] 05:39 [facility] (05014) Hemoglobin Ql 1+ (A) 07-19-2019 Hospital (U) 05:39 [facility] (24574) Ketones (U) Negative (no code) 07-19-2019 Hospital [Mass/Vol] 05:39 [facility] (77128) Leukocyte Negative (no code) 07-19-2019 Hospital esterase Test 05:39 [facility] strip Ql (U) [facility] (18227) Lymphocytes 0.33 10*3/uL (L) 0.9 - 2.9 07-19-2019 Hospita l (Bld) [#/Vol] 10*3/uL 05:39 [facility] () Lymphocytes/100 7.4 % (L) 20 - 40 % 07-19-2019 Hospit al WBC (Bld) 05: [facility] (90512) Magnesium 1.7 mg/dL (no code) 1.7 - 2.2 mg/dL 07-19-2019 Hospit al [Mass/Vol] 05:39 [facility] (98675) MCH (RBC) 31.8 pg (H) 27 - 31 pg 07-19-2019 Hospital [Entitic mass] 05:39 [facility] (17082) MCHC (RBC) 32.7 g/dL (no code) 32 - 36 g/dL 07-19-2019 Hospital [Mass/Vol] 05:39 [facility] (34504) MCV (RBC) 97.1 fL (H) 80 - 100 fL 07-19-2019 Hospital [Entitic vol] 05:39 [facility] (64088) Monocytes (Bld) 0.4 10*3/uL (no code) 0.3 - 0.9 07-19-2019 Hosp ital [#/Vol] 10*3/uL 05:390 [facility] (72668) Monocytes/100 8.7 % (no code) 2 - 8 % 07-19-2019 Hospital WBC (Bld) 05:39040 [facility] (94395) Neutrophils 3.59 10*3/uL (no code) 1.7 - 7 10*3/uL 07-19-2019 H ospital (Bld) [#/Vol] 05: [facility] (80385) Neutrophils/100 80.6 % (H) 40 - 60 % 07-19-2019 Hospit al WBC (Bld) 05: [facility] (00147) Nitrite Ql (U) Negative (no code) 07-19-2019 Hospital 05: [facility] () Osmolality Calc 293 (no code) 07-19-2019 Hospital [Osmolality] 05: [facility] () pH (U) 5.5 [pH] (no code) 4.6 - 8 [pH] 07-19-2019 Hospital 05: [facility] () Phosphate 2.5 mg/dL (no code) 2.4 - 4.1 mg/dL 07-19-2019 Hospit al [Mass/Vol] 05: [facility] () Platelet mean 11.2 fL (H) 7.2 - 11.7 fL 07-19-2019 Hosp ital volume (Bld) 05: [facility] [Entitic vol] [facility] (38024) Platelets (Bld) 149 10*3/uL (L) 150 - 450 07-19-2019 Hosp ital [#/Vol] 10*3/uL 05:39 [facility] (57684) Potassium 5.0 mmol/L (no code) 3.7 - 5.2 mmol/L 07-19-2019 Hosp ital [Moles/Vol] 05: [facility] (78602) Protein (U) 1+ (A) 07-19-2019 Hospital [Mass/Vol] 05: [facility] (36472) Protein (U) 52 mg/dL (H) 0 - 20 mg/dL 07-19-2019 Hospita l [Mass/Vol] 05:390 [facility] (20722) Protein 6.1 g/dL (no code) 6.4 - 8.3 g/dL 07-19-2019 Hospita l [Mass/Vol] 05:39 [facility] (58051) Protein/Creatini 0.36 (no code) 07-19-2019 Hospital ne (U) [Ratio] 05: [facility] (93578) RBC (Bld) 2.80 10*6/uL (L) 4.2 - 6.1 07-19-2019 Hospital [#/Vol] 10*6/uL 05: [facility] (58140) RBC LM.HPF Few/HPF (A) 07-19-2019 Hospital (Urine sed) 05: [facility] [#/Area] [facility] () Sodium 141 mmol/L (no code) 135 - 145 mmol/L 07-19-2019 Hosp ital [Moles/Vol] 05: [facility] (74458) Specific gravity 1.025 (no code) 07-19-2019 Hospital (U) [Rel 05: [facility] density] [facility] (75013) Urate [Mass/Vol] 5.8 mg/dL (no code) 3.5 - 7.2 mg/dL 07-19-2019 Hospital 05: [facility] (30667) Urea nitrogen 22 mg/dL (no code) 7 - 20 mg/dL 07-19-2019 Hospi rosa [Mass/Vol] 05: [facility] (20310) Urobilinogen Qn [id number] (A) 07-19-2019 Hospital (U) {Zari'U}/dL 05: [facility] (93152) WBC (Bld) 4.46 10*3/uL (L) 3.5 - 10.5 07-19-2019 Hospital [#/Vol] 10*3/uL 05: [facility] (16256) WBC LM.HPF Rare/HPF (A) 07-19-2019 Hospital (Urine sed) 05:39-0400 [facility] [#/Area] [facility] (02302) laboratory on 2019-07-18 Tacrolimus 12.3 (no code) 07-18-2019 [facility] (44704 ) LC/MS/MS (Bld) 07:06-0400 [Mass/Vol] not yet categorized on 2019-07-16 CULTURE SOURCE clean (no code) 07-16-2019 Hospital 03:55-0400 [facility] (99288) FINAL CULTURE No Further (no code) 07-16-2019 Hospital RESULTS Workup done 03:55-0400 [facility] (06334) MEDIA PLATED Setup at 08:34 (no code) 07-16-2019 Hospital on 07/16/2019 03:55-0400 [facility] (17265) PRELIM CULTURE <10,000 Gram (no code) 07-16-2019 Hospital RESULTS Positive Mixed 03:55-0400 [facility] f Aida [facility] Probable Skin (53638) Contaminant TACROLIMUS 12.3 (no code) 07-16-2019 Hospital ([id number]), BLOOD 03:55-0400 [facility] (64233) Urine Volume Urine Volume (no code) 07-16-2019 Hospital Sufficient 03:55-0400 [facility] (10mL) [facility] (36478) no information Moderate (A) 07-16-2019 Hospital Spermatazoa 03:55-0400 [facility] present. Culture [facility] to Follow (61839) laboratory on 2019-07-16 Albumin BCG dye 4.1 (no code) 07-16-2019 Hospital [Mass/Vol] 03:55-0400 [facility] (44388) ALP [Catalytic 95 U/L (no code) 44 - 147 U/L 07-16-2019 Hosp ital activity/Vol] 03:55-0400 [facility] (15842) ALT [Catalytic 14 U/L (no code) 4 - 40 U/L 07-16-2019 Hospit al activity/Vol] 03:55-0400 [facility] (93966) Anion gap 14 mmol/L (no code) 3 - 11 mmol/L 07-16-2019 Hospital [Moles/Vol] 03:55-0400 [facility] (71060) AST [Catalytic 17 U/L (no code) 10 - 34 U/L 07-16-2019 Hospi rosa activity/Vol] 03:55-0400 [facility] (20487) Bacteria LM Ql Trace (A) 07-16-2019 Hospital (Urine sed) 03:550400 [facility] (97701) Basophils (Bld) 0.0 10*3/uL (no code) 0 - 0.3 10*3/uL 07-16-2019 Hospital [#/Vol] 03:55-0400 [facility] (57434) Basophils/100 0.20 % (no code) 0.5 - 1 % 07-16-2019 Hospital WBC (Bld) 03:55 [facility] (14461) Bilirubin 0.3 mg/dL (no code) 0.1 - 1.2 mg/dL 07-16-2019 Hospit al [Mass/Vol] 03:550400 [facility] (12876) Bilirubin N/A (A) 07-16-2019 Hospital Confirm Ql (U) 03:55040 [facility] (64372) Bilirubin Ql (U) Negative (no code) 07-16-2019 Hospital 03:550400 [facility] (58773) Calcium 8.9 mg/dL (no code) 8.5 - 10.2 mg/dL 07-16-2019 Hospi rosa [Mass/Vol] 03:55040 [facility] (28117) Casts LM Ql 0-5 Hyaline (no code) 07-16-2019 Hospital (Urine sed) 03:550400 [facility] (13003) Chloride 115 mmol/L (H) 95 - 106 mmol/L 07-16-2019 Hospi rosa [Moles/Vol] 03:55040 [facility] (74288) Clarity (U) Clear (no code) 07-16-2019 Hospital 03:55040 [facility] (47665) Color (U) Yellow (no code) 07-16-2019 Hospital 03:55-040 [facility] (95723) Creatinine (U) 140.7 mg/dL (H) 07-16-2019 Hospital [Mass/Vol] 03:55040 [facility] (37827) Creatinine 2.97 mg/dL (H) 07-16-2019 Hospital [Mass/Vol] 03:55040 [facility] (62550) Crystals LM Nom None Seen (no code) 07-16-2019 Hospital (Urine sed) 03:55040 [facility] (03906) Eosinophils 0.1 10*3/uL (no code) 0.05 - 0.5 07-16-2019 Hospita l (Bld) [#/Vol] 10*3/uL 03:55040 [facility] (76557) Eosinophils/100 3.0 % (no code) 1 - 4 % 07-16-2019 Hospit al WBC (Bld) 03:55 [facility] (52348) Epithelial None (A) 07-16-2019 Hospital cells.squamous 03:55040 [facility] LM.HPF (Urine [facility] sed) [#/Area] (36176) Erythrocyte 14.1 % (no code) 11.6 - 14.6 % 07-16-2019 Hospit al distribution 03:55040 [facility] width (RBC) [facility] [Ratio] (18613) GFR/1.73 sq 23 (L) 90 - 120 07-16-2019 Hospital M.predicted MDRD mL/min/{1.73_m2} mL/min/{1.73_m2} 03:55040 [facility] (S/P/Bld) [Vol [facility] rate/Area] (69233) Globulin (S) 2.0 g/dL (L) 2 - 3.5 g/dL 07-16-2019 Hospit al [Mass/Vol] 03:55040 [facility] (53805) Glucose 93 mg/dL (no code) 60 - 125 mg/dL 07-16-2019 Hospita l [Mass/Vol] 03:550400 [facility] (04570) Glucose Test Trace (A) 07-16-2019 Hospital strip (U) 03:55040 [facility] [Mass/Vol] [facility] (61648) HCO3 (P) 15 (L) 07-16-2019 Hospital [Moles/Vol] 03:55040 [facility] () Hematocrit (Bld) 27.2 % (L) 36.1 - 50.3 % 07-16-2019 H ospital [Volume 03:550400 [facility] fraction] [facility] () Hemoglobin (Bld) 8.8 g/dL (L) 12.1 - 17.2 g/dL 07-16-2019 Hospital [Mass/Vol] 03:55040 [facility] () Hemoglobin Ql 1+ (A) 07-16-2019 Hospital (U) 03:55040 [facility] () Ketones (U) Negative (no code) 07-16-2019 Hospital [Mass/Vol] 03:550400 [facility] (22219) Leukocyte Negative (no code) 07-16-2019 Hospital esterase Test 03:55 [facility] strip Ql (U) [facility] () Lymphocytes 0.29 10*3/uL (L) 0.9 - 2.9 07-16-2019 Hospita l (Bld) [#/Vol] 10*3/uL 03:55040 [facility] () Lymphocytes/100 6.8 % (L) 20 - 40 % 07-16-2019 Hospit al WBC (Bld) 03:55040 [facility] (51179) Magnesium 1.7 mg/dL (no code) 1.7 - 2.2 mg/dL 07-16-2019 Hospit al [Mass/Vol] 03:550400 [facility] (85923) MCH (RBC) 31.7 pg (H) 27 - 31 pg 07-16-2019 Hospital [Entitic mass] 03:55040 [facility] (01415) MCHC (RBC) 32.4 g/dL (no code) 32 - 36 g/dL 07-16-2019 Hospital [Mass/Vol] 03:55-0400 [facility] (04331) MCV (RBC) 97.8 fL (H) 80 - 100 fL 07-16-2019 Hospital [Entitic vol] 03:55 [facility] (46285) Monocytes (Bld) 0.4 10*3/uL (no code) 0.3 - 0.9 07-16-2019 Hosp ital [#/Vol] 10*3/uL 03:55040 [facility] (54300) Monocytes/100 8.6 % (no code) 2 - 8 % 07-16-2019 Hospital WBC (Bld) 03:55 [facility] (20901) Mucus Ql (Urine 1+ (A) 07-16-2019 Hospital sed) 03:55 [facility] () Neutrophils 3.48 10*3/uL (no code) 1.7 - 7 10*3/uL 07-16-2019 H ospital (Bld) [#/Vol] 03:55040 [facility] (43422) Neutrophils/100 81.4 % (H) 40 - 60 % 07-16-2019 Hospit al WBC (Bld) 03:55040 [facility] (69612) Nitrite Ql (U) Negative (no code) 07-16-2019 Hospital 03: [facility] (61501) Osmolality Calc 292 (no code) 07-16-2019 Hospital [Osmolality] 03:55 [facility] (49607) pH (U) 5.5 [pH] (no code) 4.6 - 8 [pH] 07-16-2019 Hospital 03:55 [facility] (76805) Phosphate 2.8 mg/dL (no code) 2.4 - 4.1 mg/dL 07-16-2019 Hospit al [Mass/Vol] 03:55 [facility] (13731) Platelet mean 11.3 fL (H) 7.2 - 11.7 fL 07-16-2019 Hosp ital volume (Bld) 03:550400 [facility] [Entitic vol] [facility] (40607) Platelets (Bld) 137 10*3/uL (L) 150 - 450 07-16-2019 Hosp ital [#/Vol] 10*3/uL 03:55-0400 [facility] (88415) Potassium 5.2 mmol/L (no code) 3.7 - 5.2 mmol/L 07-16-2019 Hosp ital [Moles/Vol] 03:550400 [facility] (47163) Protein (U) 2+ (A) 07-16-2019 Hospital [Mass/Vol] 03:55 [facility] (32091) Protein (U) 51 mg/dL (H) 0 - 20 mg/dL 07-16-2019 Hospita l [Mass/Vol] 03:55040 [facility] (99681) Protein 6.1 g/dL (no code) 6.4 - 8.3 g/dL 07-16-2019 Hospita l [Mass/Vol] 03:55040 [facility] (54584) Protein/Creatini 0.36 (no code) 07-16-2019 Hospital ne (U) [Ratio] 03:55 [facility] (37482) RBC (Bld) 2.78 10*6/uL (L) 4.2 - 6.1 07-16-2019 Hospital [#/Vol] 10*6/uL 03:550400 [facility] (79795) RBC LM.HPF Rare/HPF (A) 07-16-2019 Hospital (Urine sed) 03:55040 [facility] [#/Area] [facility] (72637) Sodium 139 mmol/L (no code) 135 - 145 mmol/L 07-16-2019 Hosp ital [Moles/Vol] 03:550400 [facility] (12703) Specific gravity 1.025 (no code) 07-16-2019 Hospital (U) [Rel 03: [facility] density] [facility] (36850) Urate [Mass/Vol] 5.8 mg/dL (no code) 3.5 - 7.2 mg/dL 07-16-2019 Hospital 03:55-0400 [facility] (96015) Urea nitrogen 29 mg/dL (H) 7 - 20 mg/dL 07-16-2019 Hospi rosa [Mass/Vol] 03:550400 [facility] (86119) Urobilinogen Qn [id number] (A) 07-16-2019 Hospital (U) {Zari'U}/dL 03:550400 [facility] (83368) WBC (Bld) 4.28 10*3/uL (L) 3.5 - 10.5 07-16-2019 Hospital [#/Vol] 10*3/uL 03:550400 [facility] (33785) WBC LM.HPF 10-20/HPF (A) 07-16-2019 Hospital (Urine sed) 03:550400 [facility] [#/Area] [facility] (57324) Yeast.budding Ql No Yeast present (no code) 07-16-2019 Hosp ital (Urine sed) 03:550400 [facility] (69183) not yet categorized on 2019-07-12 Urine Volume Urine Volume (no code) 07-12-2019 Hospital Sufficient 02:54-0500 [facility] (10mL) [facility] (01304) no information Urine Saved if (A) 07-12-2019 Hospital Culture Needed 02:540500 [facility] (48hrs from time [facility] of collection) (43829) laboratory on 2019-07-12 Albumin BCG dye 4.0 (no code) 07-12-2019 Hospital [Mass/Vol] 02:54-0500 [facility] (64020) ALP [Catalytic 101 U/L (no code) 44 - 147 U/L 07-12-2019 Hosp ital activity/Vol] 02:540500 [facility] (75908) ALT [Catalytic 11 U/L (no code) 4 - 40 U/L 07-12-2019 Hospit al activity/Vol] 02:540500 [facility] (36206) Anion gap 12 mmol/L (no code) 3 - 11 mmol/L 03 Hospital [Moles/Vol] 02:540500 [facility] (39943) AST [Catalytic 17 U/L (no code) 10 - 34 U/L 03 Hospi rosa activity/Vol] 02:540500 [facility] (81025) Bacteria LM Ql Negative (no code) 07-12-2019 Hospital (Urine sed) 02:540500 [facility] (31155) Basophils (Bld) 0.0 10*3/uL (no code) 0 - 0.3 10*3/uL 07-12-2019 Hospital [#/Vol] 02:540500 [facility] (27019) Basophils/100 0.60 % (no code) 0.5 - 1 % 07-12-2019 Hospital WBC (Bld) 02:54 [facility] (28539) Bilirubin 0.3 mg/dL (no code) 0.1 - 1.2 mg/dL 07-12-2019 Hospit al [Mass/Vol] 02:540500 [facility] (58848) Bilirubin N/A (A) 07-12-2019 Hospital Confirm Ql (U) 02:54050 [facility] (80810) Bilirubin Ql (U) Negative (no code) 07-12-2019 Hospital 02:540500 [facility] (27047) Calcium 8.8 mg/dL (no code) 8.5 - 10.2 mg/dL 07-12-2019 Hospi rosa [Mass/Vol] 02:540500 [facility] (42869) Casts LM Ql None Seen (no code) 07-12-2019 Hospital (Urine sed) 02:540500 [facility] (89569) Chloride 116 mmol/L (H) 95 - 106 mmol/L 07-12-2019 Hospi rosa [Moles/Vol] 02:540500 [facility] (22131) Clarity (U) Clear (no code) 07-12-2019 Hospital 02:540500 [facility] (21351) Color (U) Yellow (no code) 07-12-2019 Hospital 02:54-0500 [facility] (79941) Creatinine (U) 160.9 mg/dL (H) 07-12-2019 Hospital [Mass/Vol] 02:540500 [facility] (59899) Creatinine 2.95 mg/dL (H) 07-12-2019 Hospital [Mass/Vol] 02:540500 [facility] (13768) Crystals LM Nom 3+ Amorphous (no code) 03 Hospital (Urine sed) 02:540500 [facility] (87531) Eosinophils 0.1 10*3/uL (no code) 0.05 - 0.5 07-12-2019 Hospita l (Bld) [#/Vol] 10*3/uL 02:540500 [facility] (29709) Eosinophils/100 2.5 % (no code) 1 - 4 % 07-12-2019 Hospit al WBC (Bld) 02:540500 [facility] (57855) Epithelial None (A) 07-12-2019 Hospital cells.squamous 02:540500 [facility] LM.HPF (Urine [facility] sed) [#/Area] (70731) Erythrocyte 13.9 % (no code) 11.6 - 14.6 % 07-12-2019 Hospit al distribution 02:540500 [facility] width (RBC) [facility] [Ratio] (84127) GFR/1.73 sq 23 (L) 90 - 120 07-12-2019 Hospital M.predicted MDRD mL/min/{1.73_m2} mL/min/{1.73_m2} 02:540500 [facility] (S/P/Bld) [Vol [facility] rate/Area] (94976) Globulin (S) 2.0 g/dL (L) 2 - 3.5 g/dL 07-12-2019 Hospit al [Mass/Vol] 02:540500 [facility] (31364) Glucose 153 mg/dL (H) 60 - 125 mg/dL 07-12-2019 Hospita l [Mass/Vol] 02:540500 [facility] (89900) Glucose Test Trace (A) 07-12-2019 Hospital strip (U) 02:540500 [facility] [Mass/Vol] [facility] (00424) HCO3 (P) 17 (L) 07-12-2019 Hospital [Moles/Vol] 02:540500 [facility] (52809) Hematocrit (Bld) 27.1 % (L) 36.1 - 50.3 % 07-12-2019 H ospital [Volume 02:540500 [facility] fraction] [facility] (19978) Hemoglobin (Bld) 8.8 g/dL (L) 12.1 - 17.2 g/dL 07-12-2019 Hospital [Mass/Vol] 02:540500 [facility] (73429) Hemoglobin Ql 1+ (A) 07-12-2019 Hospital (U) 02:540500 [facility] (94363) Ketones (U) Negative (no code) 07-12-2019 Hospital [Mass/Vol] 02:540500 [facility] (90098) Leukocyte Negative (no code) 07-12-2019 Hospital esterase Test 02:050 [facility] strip Ql (U) [facility] (59550) Lymphocytes 0.26 10*3/uL (L) 0.9 - 2.9 07-12-2019 Hospita l (Bld) [#/Vol] 10*3/uL 02:540500 [facility] (04052) Lymphocytes/100 7.2 % (L) 20 - 40 % 07-12-2019 Hospit al WBC (Bld) 02:540500 [facility] (29903) Magnesium 1.7 mg/dL (no code) 1.7 - 2.2 mg/dL 07-12-2019 Hospit al [Mass/Vol] 02:540500 [facility] (91074) MCH (RBC) 31.8 pg (H) 27 - 31 pg 07-12-2019 Hospital [Entitic mass] 02:54050 [facility] (62323) MCHC (RBC) 32.5 g/dL (no code) 32 - 36 g/dL 07-12-2019 Hospital [Mass/Vol] 02:540500 [facility] (91168) MCV (RBC) 97.8 fL (H) 80 - 100 fL 07-12-2019 Hospital [Entitic vol] 02:54050 [facility] (52961) Monocytes (Bld) 0.3 10*3/uL (no code) 0.3 - 0.9 07-12-2019 Hosp ital [#/Vol] 10*3/uL 02:540500 [facility] (99456) Monocytes/100 8.0 % (no code) 2 - 8 % 07-12-2019 Hospital WBC (Bld) 02:54050 [facility] (34070) Mucus Ql (Urine 1+ (A) 07-12-2019 Hospital sed) 02:54 [facility] (95867) Neutrophils 2.95 10*3/uL (no code) 1.7 - 7 10*3/uL 07-12-2019 H ospital (Bld) [#/Vol] 02:54050 [facility] (09938) Neutrophils/100 81.7 % (H) 40 - 60 % 07-12-2019 Hospit al WBC (Bld) 02:[address] (88460) Nitrite Ql (U) Negative (no code) 07-12-2019 Hospital 02:54050 [facility] (59231) Osmolality Calc 298 (H) 07-12-2019 Hospital [Osmolality] 02:[address] (36245) pH (U) 5.5 [pH] (no code) 4.6 - 8 [pH] 07-12-2019 Hospital 02:54050 [facility] (53718) Phosphate 2.3 mg/dL (L) 2.4 - 4.1 mg/dL 07-12-2019 Hospit al [Mass/Vol] 02:54050 [facility] (00061) Platelet mean 10.5 fL (H) 7.2 - 11.7 fL 07-12-2019 Hosp ital volume (Bld) 02:050 [facility] [Entitic vol] [facility] (74652) Platelets (Bld) 129 10*3/uL (L) 150 - 450 07-12-2019 Hosp ital [#/Vol] 10*3/uL 02:54050 [facility] (87019) Potassium 5.0 mmol/L (no code) 3.7 - 5.2 mmol/L 07-12-2019 Hosp ital [Moles/Vol] 02:54050 [facility] () Protein (U) 1+ (A) 07-12-2019 Hospital [Mass/Vol] 02: [facility] () Protein (U) 57 mg/dL (H) 0 - 20 mg/dL 07-12-2019 Hospita l [Mass/Vol] 02: [facility] () Protein 6.0 g/dL (no code) 6.4 - 8.3 g/dL 07-12-2019 Hospita l [Mass/Vol] 02:54050 [facility] () Protein/Creatini 0.36 (no code) 07-12-2019 Hospital ne (U) [Ratio] 02: [facility] () RBC (Bld) 2.77 10*6/uL (L) 4.2 - 6.1 07-12-2019 Hospital [#/Vol] 10*6/uL 02:540500 [facility] (29276) RBC LM.HPF Negative (no code) 0 - 4 /[HPF] 07-12-2019 Hospital (Urine sed) 02: [facility] [#/Area] [facility] (20396) Sodium 140 mmol/L (no code) 135 - 145 mmol/L 07-12-2019 Hosp ital [Moles/Vol] 02:54 [facility] () Specific gravity 1.025 (no code) 07-12-2019 Hospital (U) [Rel 02: [facility] density] [facility] (68192) Urate [Mass/Vol] 5.8 mg/dL (no code) 3.5 - 7.2 mg/dL 07-12-2019 Hospital 02:54-0500 [facility] (30742) Urea nitrogen 30 mg/dL (H) 7 - 20 mg/dL 07-12-2019 Hospi rosa [Mass/Vol] 02:54-0500 [facility] (69255) Urobilinogen Qn [id number] (A) 07-12-2019 Hospital (U) {Zari'U}/dL 02:540500 [facility] (07946) WBC (Bld) 3.61 10*3/uL (L) 3.5 - 10.5 07-12-2019 Hospital [#/Vol] 10*3/uL 02:54-0500 [facility] (79418) WBC LM.HPF 2-5/HPF (A) 07-12-2019 Hospital (Urine sed) 02:540500 [facility] [#/Area] [facility] (30323) Yeast.budding Ql No Yeast present (no code) 07-12-2019 Hosp ital (Urine sed) 02:540500 [facility] (67742) laboratory on 2019-07-08 Tacrolimus 11.9 (no code) 07-08-2019 [facility] (62999 ) LC/MS/MS (Bld) 04:20-0500 [Mass/Vol] not yet categorized on 2019-07-05 CULTURE SOURCE clean catch (no code) 07-05-2019 Hospital 02:46-0500 [facility] (39731) FINAL CULTURE No Growth 48 (no code) 07-05-2019 Hospital RESULTS hours 02:460500 [facility] (62324) MEDIA PLATED Setup at 0750 on (no code) 07-05-2019 Hospital 07/05/2019 02:46-0500 [facility] (08949) PRELIM CULTURE No Growth 24 (no code) 07-05-2019 Hospital RESULTS hours 02:460500 [facility] (40489) TACROLIMUS 11.9 (no code) 07-05-2019 Hospital (FK506), BLOOD 02: [facility] (48080) Urine Volume Urine Volume (no code) 07-05-2019 Hospital Sufficient 02: [facility] (10mL) [facility] (00969) no information Culture to (A) 07-05-2019 Hospital follow 02: [facility] (62221) laboratory on 2019-07-05 Albumin BCG dye 3.9 (no code) 07-05-2019 Hospital [Mass/Vol] 02: [facility] (52379) ALP [Catalytic 110 U/L (no code) 44 - 147 U/L 07-05-2019 Hosp ital activity/Vol] 02: [facility] (10121) ALT [Catalytic 14 U/L (no code) 4 - 40 U/L 07-05-2019 Hospit al activity/Vol] 02: [facility] (18703) Anion gap 12 mmol/L (no code) 3 - 11 mmol/L 07-05-2019 Hospital [Moles/Vol] 02: [facility] (71648) AST [Catalytic 14 U/L (no code) 10 - 34 U/L 07-05-2019 Hospi rosa activity/Vol] 02:46 [facility] (77373) Bacteria LM Ql Trace (A) 07-05-2019 Hospital (Urine sed) 02: [facility] (87406) Basophils (Bld) 0.0 10*3/uL (no code) 0 - 0.3 10*3/uL 07-05-2019 Hospital [#/Vol] 02:46 [facility] (31822) Basophils/100 0.50 % (no code) 0.5 - 1 % 07-05-2019 Hospital WBC (Bld) 02: [facility] (55633) Bilirubin 0.2 mg/dL (no code) 0.1 - 1.2 mg/dL 07-05-2019 Hospit al [Mass/Vol] 02: [facility] (82684) Bilirubin N/A (A) 07-05-2019 Hospital Confirm Ql (U) 02: [facility] () Bilirubin Ql (U) Negative (no code) 07-05-2019 Hospital 02: [facility] () Calcium 8.8 mg/dL (no code) 8.5 - 10.2 mg/dL 07-05-2019 Hospi rosa [Mass/Vol] 02: [facility] (31867) Chloride 114 mmol/L (no code) 95 - 106 mmol/L 07-05-2019 Hospi rosa [Moles/Vol] 02: [facility] () Clarity (U) Slightly Cloudy (A) 07-05-2019 Hospital 02: [facility] () Color (U) Yellow (no code) 07-05-2019 Hospital 02: [facility] (26350) Creatinine (U) 206.5 mg/dL (H) 07-05-2019 Hospital [Mass/Vol] 02: [facility] (18017) Creatinine 3.77 mg/dL (H) 07-05-2019 Hospital [Mass/Vol] 02: [facility] (51349) Eosinophils 0.1 10*3/uL (no code) 0.05 - 0.5 07-05-2019 Hospita l (Bld) [#/Vol] 10*3/uL 02: [facility] (55503) Eosinophils/100 2.7 % (no code) 1 - 4 % 07-05-2019 Hospit al WBC (Bld) 02: [facility] (93867) Epithelial 0-5/HPF (A) 07-05-2019 Hospital cells.squamous 02: [facility] LM.HPF (Urine [facility] sed) [#/Area] (98983) Erythrocyte 13.7 % (no code) 11.6 - 14.6 % 07-05-2019 Hospit al distribution 02: [facility] width (RBC) [facility] [Ratio] (98154) GFR/1.73 sq 17 (L) 90 - 120 07-05-2019 Hospital M.predicted MDRD mL/min/{1.73_m2} mL/min/{1.73_m2} 02:46050 [facility] (S/P/Bld) [Vol [facility] rate/Area] (56289) Globulin (S) 2.0 g/dL (L) 2 - 3.5 g/dL 07-05-2019 Hospit al [Mass/Vol] 02:46050 [facility] (95073) Glucose 78 mg/dL (no code) 60 - 125 mg/dL 07-05-2019 Hospita l [Mass/Vol] 02:46050 [facility] (39530) Glucose Test Negative (no code) 07-05-2019 Hospital strip (U) 02:46050 [facility] [Mass/Vol] [facility] (99673) HCO3 (P) 17 (L) 07-05-2019 Hospital [Moles/Vol] 02:46050 [facility] (52219) Hematocrit (Bld) 26.4 % (L) 36.1 - 50.3 % 07-05-2019 H ospital [Volume 02:46050 [facility] fraction] [facility] (79619) Hemoglobin (Bld) 8.6 g/dL (L) 12.1 - 17.2 g/dL 07-05-2019 Hospital [Mass/Vol] 02:460500 [facility] (78836) Hemoglobin Ql 2+ (A) 07-05-2019 Hospital (U) 02:460500 [facility] (11241) Ketones (U) Negative (no code) 07-05-2019 Hospital [Mass/Vol] 02:460500 [facility] (83185) Leukocyte Trace (A) 07-05-2019 Hospital esterase Test 02:46050 [facility] strip Ql (U) [facility] (41386) Lymphocytes 0.23 10*3/uL (L) 0.9 - 2.9 07-05-2019 Hospita l (Bld) [#/Vol] 10*3/uL 02:46 [facility] (06189) Lymphocytes/100 6.1 % (L) 20 - 40 % 07-05-2019 Hospit al WBC (Bld) 02:46 [facility] (42521) Magnesium 1.8 mg/dL (no code) 1.7 - 2.2 mg/dL 07-05-2019 Hospit al [Mass/Vol] 02:46 [facility] (83612) MCH (RBC) 31.7 pg (H) 27 - 31 pg 07-05-2019 Hospital [Entitic mass] 02:46 [facility] (91778) MCHC (RBC) 32.6 g/dL (no code) 32 - 36 g/dL 07-05-2019 Hospital [Mass/Vol] 02:[address] (84411) MCV (RBC) 97.4 fL (H) 80 - 100 fL 07-05-2019 Hospital [Entitic vol] 02:46 [facility] (08036) Monocytes (Bld) 0.3 10*3/uL (no code) 0.3 - 0.9 07-05-2019 Hosp ital [#/Vol] 10*3/uL 02: [facility] (90051) Monocytes/100 7.2 % (no code) 2 - 8 % 07-05-2019 Hospital WBC (Bld) 02:46 [facility] (95451) Neutrophils 3.14 10*3/uL (no code) 1.7 - 7 10*3/uL 07-05-2019 H ospital (Bld) [#/Vol] 02:46 [facility] (62316) Neutrophils/100 83.5 % (H) 40 - 60 % 07-05-2019 Hospit al WBC (Bld) 02:46 [facility] (61232) Nitrite Ql (U) Negative (no code) 07-05-2019 Hospital 02:[address] (53189) Osmolality Calc 290 (no code) 07-05-2019 Hospital [Osmolality] 02: [facility] () pH (U) 5.0 [pH] (no code) 4.6 - 8 [pH] 07-05-2019 Hospital 02: [facility] () Phosphate 2.9 mg/dL (no code) 2.4 - 4.1 mg/dL 07-05-2019 Hospit al [Mass/Vol] 02: [facility] (22834) Platelet mean 11.1 fL (H) 7.2 - 11.7 fL 07-05-2019 Hosp ital volume (Bld) 02: [facility] [Entitic vol] [facility] (85014) Platelets (Bld) 155 10*3/uL (no code) 150 - 450 07-05-2019 Hosp ital [#/Vol] 10*3/uL 02: [facility] () Potassium 4.9 mmol/L (no code) 3.7 - 5.2 mmol/L 07-05-2019 Hosp ital [Moles/Vol] 02: [facility] (29219) Protein (U) 2+ (A) 07-05-2019 Hospital [Mass/Vol] 02: [facility] (44445) Protein (U) 86 mg/dL (H) 0 - 20 mg/dL 07-05-2019 Hospita l [Mass/Vol] 02: [facility] () Protein 5.9 g/dL (L) 6.4 - 8.3 g/dL 07-05-2019 Hospita l [Mass/Vol] 02: [facility] (78085) Protein/Creatini 0.42 (no code) 07-05-2019 Hospital ne (U) [Ratio] 02: [facility] (45498) RBC (Bld) 2.71 10*6/uL (L) 4.2 - 6.1 07-05-2019 Hospital [#/Vol] 10*6/uL 02: [facility] (94874) RBC LM.HPF 10-20/HPF (A) 07-05-2019 Hospital (Urine sed) 02:460500 [facility] [#/Area] [facility] (21847) Sodium 138 mmol/L (no code) 135 - 145 mmol/L 07-05-2019 Hosp ital [Moles/Vol] 02:460500 [facility] (51941) Specific gravity >=1.030 (A) 07-05-2019 Hospital (U) [Rel 02:460500 [facility] density] [facility] (59019) Urate [Mass/Vol] 6.8 mg/dL (no code) 3.5 - 7.2 mg/dL 07-05-2019 Hospital 02:460500 [facility] (61733) Urea nitrogen 30 mg/dL (H) 7 - 20 mg/dL 07-05-2019 Hospi rosa [Mass/Vol] 02:460500 [facility] (25834) Urobilinogen Qn [id number] (A) 07-05-2019 Hospital (U) {Zari'U}/dL 02:460500 [facility] (50205) WBC (Bld) 3.76 10*3/uL (L) 3.5 - 10.5 07-05-2019 Hospital [#/Vol] 10*3/uL 02:460500 [facility] (27588) WBC LM.HPF 10-20/HPF (A) 07-05-2019 Hospital (Urine sed) 02:460500 [facility] [#/Area] [facility] (98485) Yeast.budding Ql No Yeast present (no code) 07-05-2019 Hosp ital (Urine sed) 02:460500 [facility] (09218) laboratory on 2019-07-04 Tacrolimus 11.8 (no code) 07-04-2019 [facility] (47834 ) LC/MS/MS (Bld) 14:25-0500 [Mass/Vol] not yet categorized on 2019-07-02 CULTURE SOURCE CC (no code) 07-02-2019 Hospital 03:54-0500 [facility] (81224) FINAL CULTURE No Growth 48 (no code) 07-02-2019 Hospital RESULTS hours 03:540500 [facility] (44328) MEDIA PLATED Setup at 10:10 (no code) 07-02-2019 Hospital on 07/02/2019 03:54-0500 [facility] (48230) PRELIM CULTURE No Growth 24 (no code) 07-02-2019 Hospital RESULTS hours 03:54050 [facility] (27203) Urine Volume Urine Volume (no code) 07-02-2019 Hospital Sufficient 03:54050 [facility] (10mL) [facility] (31909) no information Culture to (A) 07-02-2019 Hospital follow 03:050 [facility] (90071) laboratory on 2019-07-02 Albumin BCG dye 3.9 (no code) 07-02-2019 Hospital [Mass/Vol] 03:050 [facility] (47266) ALP [Catalytic 114 U/L (no code) 44 - 147 U/L 07-02-2019 Hosp ital activity/Vol] 03:54050 [facility] (37617) ALT [Catalytic 15 U/L (no code) 4 - 40 U/L 07-02-2019 Hospit al activity/Vol] 03:54050 [facility] (21152) Anion gap 15 mmol/L (H) 3 - 11 mmol/L 07-02-2019 Hospital [Moles/Vol] 03:54050 [facility] ([id number]) AST [Catalytic 14 U/L (no code) 10 - 34 U/L 07-02-2019 [facility]pi [facility] activity/Vol] [id number] [facility] ([id number]) Bacteria LM Ql Trace (A) 07-02-2019 Hospital (Urine sed) 03:050 [facility] ([id number]) Basophils (Bld) 0.0 10*3/uL (no code) 0 - 0.3 10*3/uL 07-02-2019 Hospital [#/Vol] [id number]:[id number] [facility] ([id number]) Basophils/100 0.50 % (no code) 0.5 - 1 % 07-02-2019 Hospital WBC (Bld) [id number]:540500 [facility] ([id number]) Bilirubin 0.2 mg/dL (no code) 0.1 - 1.2 mg/dL 07-02-2019 Hospit al [Mass/Vol] 03:540500 [facility] ([id number]) Bilirubin N/A (A) 07-02-2019 Hospital Confirm Ql (U) 03:54050 [facility] ([id number]) Bilirubin Ql (U) Negative (no code) 07-02-2019 Hospital [id number] [facility] ([id number]) Calcium 8.9 mg/dL (no code) 8.5 - 10.2 mg/dL 07-02-2019 [facility] [Mass/Vol] 03:540500 [facility] ([id number]) Casts LM Ql Few Granular (no code) 07-02-2019 Hospital (Urine sed) 03:54 [facility] ([id number]) Chloride 114 mmol/L (no code) 95 - 106 mmol/L 07-02-2019 [facility] [Moles/Vol] 03:540500 [facility] ([id number]) Clarity (U) Hazy (A) 07-02-2019 Hospital 03:540500 [facility] (40012) Color (U) Yellow (no code) 07-02-2019 Hospital 03:540500 [facility] (26756) Creatinine (U) 193.8 mg/dL (H) 07-02-2019 Hospital [Mass/Vol] 03:540500 [facility] (63113) Creatinine 3.77 mg/dL (H) 07-02-2019 Hospital [Mass/Vol] 03:540500 [facility] (38111) Crystals LM Nom Few Calcium (no code) 07-02-2019 Hospital (Urine sed) Oxalate 03:540500 [facility] (21383) Eosinophils 0.1 10*3/uL (no code) 0.05 - 0.5 07-02-2019 Hospita l (Bld) [#/Vol] 10*3/uL 03:540500 [facility] (33681) Eosinophils/100 1.6 % (no code) 1 - 4 % 07-02-2019 Hospit al WBC (Bld) 03:540500 [facility] (65409) Epithelial 0-5/HPF (A) 07-02-2019 Hospital cells.squamous 03:540500 [facility] LM.HPF (Urine [facility] sed) [#/Area] (29090) Erythrocyte 13.4 % (no code) 11.6 - 14.6 % 07-02-2019 Hospit al distribution 03:54050 [facility] width (RBC) [facility] [Ratio] (08072) GFR/1.73 sq 17 (L) 90 - 120 07-02-2019 Hospital M.predicted MDRD mL/min/{1.73_m2} mL/min/{1.73_m2} 03:54050 [facility] (S/P/Bld) [Vol [facility] rate/Area] (10497) Globulin (S) 2.1 g/dL (L) 2 - 3.5 g/dL 07-02-2019 Hospit al [Mass/Vol] 03:54050 [facility] (88622) Glucose 108 mg/dL (no code) 60 - 125 mg/dL 07-02-2019 Hospita l [Mass/Vol] 03:54050 [facility] (08043) Glucose Test Trace (A) 07-02-2019 Hospital strip (U) 03:54050 [facility] [Mass/Vol] [facility] (69678) HCO3 (P) 15 (L) 07-02-2019 Hospital [Moles/Vol] 03:540500 [facility] (89251) Hematocrit (Bld) 26.5 % (L) 36.1 - 50.3 % 07-02-2019 H ospital [Volume 03:540500 [facility] fraction] [facility] (64638) Hemoglobin (Bld) 8.7 g/dL (L) 12.1 - 17.2 g/dL 07-02-2019 Hospital [Mass/Vol] 03:540500 [facility] (79397) Hemoglobin Ql 2+ (A) 07-02-2019 Hospital (U) 03:050 [facility] (95845) Ketones (U) Negative (no code) 07-02-2019 Hospital [Mass/Vol] 03:540500 [facility] (03721) Leukocyte Trace (A) 07-02-2019 Hospital esterase Test 03: [facility] strip Ql (U) [facility] (52875) Lymphocytes 0.25 10*3/uL (L) 0.9 - 2.9 07-02-2019 Hospita l (Bld) [#/Vol] 10*3/uL 03:0500 [facility] (10417) Lymphocytes/100 6.5 % (L) 20 - 40 % 07-02-2019 Hospit al WBC (Bld) 03: [facility] (77996) Magnesium 1.8 mg/dL (no code) 1.7 - 2.2 mg/dL 07-02-2019 Hospit al [Mass/Vol] 03:540500 [facility] (14130) MCH (RBC) 31.9 pg (H) 27 - 31 pg 07-02-2019 Hospital [Entitic mass] 03:540500 [facility] (40851) MCHC (RBC) 32.8 g/dL (no code) 32 - 36 g/dL 07-02-2019 Hospital [Mass/Vol] 03:540500 [facility] (12882) MCV (RBC) 97.1 fL (H) 80 - 100 fL 07-02-2019 Hospital [Entitic vol] 03:540500 [facility] (20864) Monocytes (Bld) 0.4 10*3/uL (no code) 0.3 - 0.9 07-02-2019 Hosp ital [#/Vol] 10*3/uL 03:540500 [facility] (75506) Monocytes/100 9.1 % (no code) 2 - 8 % 07-02-2019 Hospital WBC (Bld) 03:54 [facility] (67934) Neutrophils 3.16 10*3/uL (no code) 1.7 - 7 10*3/uL 07-02-2019 H ospital (Bld) [#/Vol] 03:54050 [facility] (12699) Neutrophils/100 82.3 % (H) 40 - 60 % 07-02-2019 Hospit al WBC (Bld) 03: [facility] (42047) Nitrite Ql (U) Negative (no code) 07-02-2019 Hospital 03: [facility] (74859) Osmolality Calc 294 (no code) 07-02-2019 Hospital [Osmolality] 03: [facility] () pH (U) 5.0 [pH] (no code) 4.6 - 8 [pH] 07-02-2019 Hospital 03: [facility] () Phosphate 3.5 mg/dL (no code) 2.4 - 4.1 mg/dL 07-02-2019 Hospit al [Mass/Vol] 03:050 [facility] (12236) Platelet mean 11.2 fL (H) 7.2 - 11.7 fL 07-02-2019 Hosp ital volume (Bld) 03: [facility] [Entitic vol] [facility] (32571) Platelets (Bld) 180 10*3/uL (no code) 150 - 450 07-02-2019 Hosp ital [#/Vol] 10*3/uL 03:050 [facility] (25164) Potassium 4.8 mmol/L (no code) 3.7 - 5.2 mmol/L 07-02-2019 Hosp ital [Moles/Vol] 03:050 [facility] (48871) Protein (U) 2+ (A) 07-02-2019 Hospital [Mass/Vol] 03: [facility] (24261) Protein (U) 94 mg/dL (H) 0 - 20 mg/dL 07-02-2019 Hospita l [Mass/Vol] 03:54-0500 [facility] (81977) Protein 6.0 g/dL (no code) 6.4 - 8.3 g/dL 07-02-2019 Hospita l [Mass/Vol] 03:540500 [facility] (99245) Protein/Creatini 0.48 (no code) 07-02-2019 Hospital ne (U) [Ratio] 03:050 [facility] (25364) RBC (Bld) 2.73 10*6/uL (L) 4.2 - 6.1 07-02-2019 Hospital [#/Vol] 10*6/uL 03:0500 [facility] (22719) RBC LM.HPF 5-10/HPF (A) 07-02-2019 Hospital (Urine sed) 03: [facility] [#/Area] [facility] (25207) Sodium 139 mmol/L (no code) 135 - 145 mmol/L 07-02-2019 Hosp ital [Moles/Vol] 03:0500 [facility] (04717) Specific gravity 1.025 (no code) 07-02-2019 Hospital (U) [Rel 03:050 [facility] density] [facility] (99733) Urate [Mass/Vol] 6.8 mg/dL (no code) 3.5 - 7.2 mg/dL 07-02-2019 Hospital 03:0500 [facility] () Urea nitrogen 31 mg/dL (H) 7 - 20 mg/dL 07-02-2019 Hospi rosa [Mass/Vol] 03:0500 [facility] (76926) Urobilinogen Qn [id number] (A) 07-02-2019 Hospital (U) {Zari'U}/dL 03:0500 [facility] (78223) WBC (Bld) 3.84 10*3/uL (L) 3.5 - 10.5 07-02-2019 Hospital [#/Vol] 10*3/uL 03:540500 [facility] (14501) WBC LM.HPF 2-5/HPF (A) 07-02-2019 Hospital (Urine sed) 03:54-0500 [facility] [#/Area] [facility] (44532) laboratory on 2019-06-28 Tacrolimus 21.0 (HH) 06-28-2019 [facility] (27866 ) LC/MS/MS (Bld) 02:26-0500 [Mass/Vol] not yet categorized on 2019-06-25 CULTURE SOURCE clean (no code) 06-25-2019 Hospital 03:39-0500 [facility] (61850) FINAL CULTURE <10,000 Gram (no code) 06-25-2019 Hospital RESULTS Positive Mixed 03:390500 [facility] f Aida [facility] Probable Skin (89453) Contaminant No Further Workup done MEDIA PLATED Setup at 08:58 (no code) 06-25-2019 Hospital on 06/25/2019 03:39-0500 [facility] (74274) PRELIM CULTURE <10,000 Gram (no code) 06-25-2019 Hospital RESULTS Positive Mixed 03:390500 [facility] Probable Skin (28416) Contaminant TACROLIMUS 21.0 (HH) 06-25-2019 Hospital ([id number]), BLOOD 03:390500 [facility] (41912) Urine Volume Urine Volume (no code) 06-25-2019 Hospital Sufficient 03:39-0500 [facility] (10mL) [facility] (02359) laboratory on 2019-06-25 Albumin BCG dye 3.9 (no code) 06-25-2019 Hospital [Mass/Vol] 03:39-0500 [facility] (84046) ALP [Catalytic 113 U/L (no code) 44 - 147 U/L 06-25-2019 Hosp ital activity/Vol] 03:390500 [facility] (46291) ALT [Catalytic 12 U/L (no code) 4 - 40 U/L 06-25-2019 Hospit al activity/Vol] 03:390500 [facility] (78641) Anion gap 13 mmol/L (no code) 3 - 11 mmol/L 06-25-2019 Hospital [Moles/Vol] 03:390500 [facility] (54566) AST [Catalytic 13 U/L (no code) 10 - 34 U/L 06-25-2019 Hospi rosa activity/Vol] 03:39-0500 [facility] (43631) Basophils (Bld) 0.0 10*3/uL (no code) 0 - 0.3 10*3/uL 06-25-2019 Hospital [#/Vol] 03:390500 [facility] () Basophils/100 0.60 % (no code) 0.5 - 1 % 06-25-2019 Hospital WBC (Bld) 03:39050 [facility] () Bilirubin 0.3 mg/dL (no code) 0.1 - 1.2 mg/dL 06-25-2019 Hospit al [Mass/Vol] 03:39050 [facility] () Bilirubin N/A (A) 06-25-2019 Hospital Confirm Ql (U) 03:39050 [facility] () Bilirubin Ql (U) Negative (no code) 06-25-2019 Hospital 03:39050 [facility] () Calcium 8.9 mg/dL (no code) 8.5 - 10.2 mg/dL 06-25-2019 Hospi rosa [Mass/Vol] 03:39050 [facility] () Chloride 112 mmol/L (no code) 95 - 106 mmol/L 06-25-2019 Hospi rosa [Moles/Vol] 03:39050 [facility] () Clarity (U) Clear (no code) 06-25-2019 Hospital 03:390500 [facility] () Color (U) Yellow (no code) 06-25-2019 Hospital 03:39050 [facility] () Creatinine (U) 140.8 mg/dL (H) 06-25-2019 Hospital [Mass/Vol] 03:390500 [facility] () Creatinine 3.72 mg/dL (H) 06-25-2019 Hospital [Mass/Vol] 03:39050 [facility] (66541) Eosinophils 0.1 10*3/uL (no code) 0.05 - 0.5 06-25-2019 Hospita l (Bld) [#/Vol] 10*3/uL 03:390500 [facility] (33154) Eosinophils/100 2.4 % (no code) 1 - 4 % 06-25-2019 Hospit al WBC (Bld) 03:390500 [facility] (79165) Erythrocyte 13.1 % (no code) 11.6 - 14.6 % 06-25-2019 Hospit al distribution 03:390500 [facility] width (RBC) [facility] [Ratio] (47348) GFR/1.73 sq 17 (L) 90 - 120 06-25-2019 Hospital M.predicted MDRD mL/min/{1.73_m2} mL/min/{1.73_m2} 03:39050 [facility] (S/P/Bld) [Vol [facility] rate/Area] (34560) Globulin (S) 2.3 g/dL (no code) 2 - 3.5 g/dL 06-25-2019 Hospit al [Mass/Vol] 03:390500 [facility] (65432) Glucose 262 mg/dL (H) 60 - 125 mg/dL 06-25-2019 Hospita l [Mass/Vol] 03:39-0500 [facility] (85932) Glucose Test 3+ (A) 06-25-2019 Hospital strip (U) 03:390500 [facility] [Mass/Vol] [facility] (34712) HCO3 (P) 17 (L) 06-25-2019 Hospital [Moles/Vol] 03:390500 [facility] (07117) Hematocrit (Bld) 28.6 % (L) 36.1 - 50.3 % 06-25-2019 H ospital [Volume 03:39-0500 [facility] fraction] [facility] (83496) Hemoglobin (Bld) 9.3 g/dL (L) 12.1 - 17.2 g/dL 06-25-2019 Hospital [Mass/Vol] 03:39-0500 [facility] (70244) Hemoglobin Ql 2+ (A) 06-25-2019 Hospital (U) 03: [facility] () Ketones (U) Negative (no code) 06-25-2019 Hospital [Mass/Vol] 03:39 [facility] () Leukocyte Negative (no code) 06-25-2019 Hospital esterase Test 03: [facility] strip Ql (U) [facility] (08669) Lymphocytes 0.14 10*3/uL (L) 0.9 - 2.9 06-25-2019 Hospita l (Bld) [#/Vol] 10*3/uL 03: [facility] () Lymphocytes/100 4.3 % (L) 20 - 40 % 06-25-2019 Hospit al WBC (Bld) 03: [facility] () Magnesium 1.9 mg/dL (no code) 1.7 - 2.2 mg/dL 06-25-2019 Hospit al [Mass/Vol] 03:39050 [facility] () MCH (RBC) 32.2 pg (H) 27 - 31 pg 06-25-2019 Hospital [Entitic mass] 03:39 [facility] (22991) MCHC (RBC) 32.5 g/dL (no code) 32 - 36 g/dL 06-25-2019 Hospital [Mass/Vol] 03:39 [facility] () MCV (RBC) 99.0 fL (H) 80 - 100 fL 06-25-2019 Hospital [Entitic vol] 03:39050 [facility] (20132) Monocytes (Bld) 0.4 10*3/uL (no code) 0.3 - 0.9 06-25-2019 Hosp ital [#/Vol] 10*3/uL 03:390500 [facility] () Monocytes/100 11.9 % (no code) 2 - 8 % 06-25-2019 Hospital WBC (Bld) 03:390500 [facility] (20041) Neutrophils 2.66 10*3/uL (no code) 1.7 - 7 10*3/uL 06-25-2019 H ospital (Bld) [#/Vol] 03:39050 [facility] (05324) Neutrophils/100 80.8 % (H) 40 - 60 % 06-25-2019 Hospit al WBC (Bld) 03:39 [facility] () Nitrite Ql (U) Negative (no code) 06-25-2019 Hospital 03: [facility] (72517) Osmolality Calc 297 (H) 06-25-2019 Hospital [Osmolality] 03: [facility] () pH (U) 5.0 [pH] (no code) 4.6 - 8 [pH] 06-25-2019 Hospital 03:39 [facility] () Phosphate 3.2 mg/dL (no code) 2.4 - 4.1 mg/dL 06-25-2019 Hospit al [Mass/Vol] 03:39050 [facility] (91324) Platelet mean 10.9 fL (H) 7.2 - 11.7 fL 06-25-2019 Hosp ital volume (Bld) 03:39050 [facility] [Entitic vol] [facility] (46565) Platelets (Bld) 201 10*3/uL (no code) 150 - 450 06-25-2019 Hosp ital [#/Vol] 10*3/uL 03:39050 [facility] (69856) Potassium 5.3 mmol/L (no code) 3.7 - 5.2 mmol/L 06-25-2019 Hosp ital [Moles/Vol] 03:39050 [facility] (87844) Protein (U) 2+ (A) 06-25-2019 Hospital [Mass/Vol] 03:39050 [facility] () Protein (U) 60 mg/dL (H) 0 - 20 mg/dL 06-25-2019 Hospita l [Mass/Vol] 03:390500 [facility] (94399) Protein 6.2 g/dL (no code) 6.4 - 8.3 g/dL 06-25-2019 Hospita l [Mass/Vol] 03:390500 [facility] (49030) Protein/Creatini 0.43 (no code) 06-25-2019 Hospital ne (U) [Ratio] 03:390500 [facility] (58601) RBC (Bld) 2.89 10*6/uL (L) 4.2 - 6.1 06-25-2019 Hospital [#/Vol] 10*6/uL 03:390500 [facility] (61780) RBC LM.HPF 20-40/HPF (A) 06-25-2019 Hospital (Urine sed) 03:050 [facility] [#/Area] [facility] (96166) Sodium 137 mmol/L (no code) 135 - 145 mmol/L 06-25-2019 Hosp ital [Moles/Vol] 03:390500 [facility] (26643) Specific gravity 1.020 (no code) 06-25-2019 Hospital (U) [Rel 03:39050 [facility] density] [facility] (79640) Urate [Mass/Vol] 5.8 mg/dL (no code) 3.5 - 7.2 mg/dL 06-25-2019 Hospital 03:390500 [facility] (20788) Urea nitrogen 29 mg/dL (H) 7 - 20 mg/dL 06-25-2019 Hospi rosa [Mass/Vol] 03:390500 [facility] (77344) Urobilinogen Qn [id number] (A) 06-25-2019 Hospital (U) {Zari'U}/dL 03:390500 [facility] (82858) WBC (Bld) 3.29 10*3/uL (L) 3.5 - 10.5 06-25-2019 Hospital [#/Vol] 10*3/uL 03:390500 [facility] (50935) WBC LM.HPF Few/HPF (A) 06-25-2019 Hospital (Urine sed) 03:39-0500 [facility] [#/Area] [facility] (01927) laboratory on 2019-06-23 Tacrolimus 13.0 (no code) 06-23-2019 [facility] (16529 ) LC/MS/MS (Bld) 04:040500 [Mass/Vol] not yet categorized on 2019-06-21 CULTURE SOURCE clean (no code) 06-21-2019 Hospital 02:570500 [facility] (70445) FINAL CULTURE No Growth 48 (no code) 06-21-2019 Hospital RESULTS hours 02:570500 [facility] (81255) PRELIM CULTURE No Growth 24 (no code) 06-21-2019 Hospital RESULTS hours 02:570500 [facility] (62969) TACROLIMUS 13.0 (no code) 06-21-2019 Hospital ([id number]), BLOOD 02:570500 [facility] (05398) Urine Volume Urine Volume (no code) 06-21-2019 Hospital Sufficient 02:57050 [facility] (10mL) [facility] (67685) no information Culture to (A) 06-21-2019 Hospital follow 02:57050 [facility] (16595) laboratory on 2019-06-21 Albumin BCG dye 3.7 (no code) 06-21-2019 Hospital [Mass/Vol] 02:570500 [facility] (56090) ALP [Catalytic 87 U/L (no code) 44 - 147 U/L 06-21-2019 Hosp ital activity/Vol] 02:570500 [facility] (89758) ALT [Catalytic 13 U/L (no code) 4 - 40 U/L 06-21-2019 Hospit al activity/Vol] 02:570500 [facility] (79692) Anion gap 13 mmol/L (no code) 3 - 11 mmol/L 06-21-2019 Hospital [Moles/Vol] 02:570500 [facility] (79491) AST [Catalytic 11 U/L (no code) 10 - 34 U/L 06-21-2019 Hospi rosa activity/Vol] 02:570500 [facility] (73972) Bacteria LM Ql Trace (A) 06-21-2019 Hospital (Urine sed) 02:050 [facility] (74190) Basophils (Bld) 0.0 10*3/uL (no code) 0 - 0.3 10*3/uL 06-21-2019 Hospital [#/Vol] 02:57050 [facility] (49710) Basophils/100 0.30 % (no code) 0.5 - 1 % 06-21-2019 Hospital WBC (Bld) 02: [facility] (82045) Bilirubin 0.3 mg/dL (no code) 0.1 - 1.2 mg/dL 06-21-2019 Hospit al [Mass/Vol] 02:050 [facility] (20104) Bilirubin N/A (A) 06-21-2019 Hospital Confirm Ql (U) 02: [facility] (99938) Bilirubin Ql (U) Negative (no code) 06-21-2019 Hospital 02:57050 [facility] (88709) Calcium 8.7 mg/dL (no code) 8.5 - 10.2 mg/dL 06-21-2019 Hospi rosa [Mass/Vol] 02:57050 [facility] (89021) Chloride 113 mmol/L (no code) 95 - 106 mmol/L 06-21-2019 Hospi rosa [Moles/Vol] 02: [facility] (26731) Clarity (U) Slightly Cloudy (A) 06-21-2019 Hospital 02:57050 [facility] (83178) Color (U) Yellow (no code) 06-21-2019 Hospital 02:050 [facility] (81821) Creatinine (U) 106.9 mg/dL (H) 06-21-2019 Hospital [Mass/Vol] 02:57050 [facility] (93707) Creatinine 3.73 mg/dL (H) 06-21-2019 Hospital [Mass/Vol] 02: [facility] (88967) Eosinophils 0.1 10*3/uL (no code) 0.05 - 0.5 06-21-2019 Hospita l (Bld) [#/Vol] 10*3/uL 02:57050 [facility] (72199) Eosinophils/100 3.4 % (no code) 1 - 4 % 06-21-2019 Hospit al WBC (Bld) 02:050 [facility] (97772) Erythrocyte 13.2 % (no code) 11.6 - 14.6 % 06-21-2019 Hospit al distribution 02:050 [facility] width (RBC) [facility] [Ratio] (00268) GFR/1.73 sq 17 (L) 90 - 120 06-21-2019 Hospital M.predicted MDRD mL/min/{1.73_m2} mL/min/{1.73_m2} 02: [facility] (S/P/Bld) [Vol [facility] rate/Area] (42464) Globulin (S) 2.3 g/dL (no code) 2 - 3.5 g/dL 06-21-2019 Hospit al [Mass/Vol] 02:57050 [facility] (36278) Glucose 156 mg/dL (H) 60 - 125 mg/dL 06-21-2019 Hospita l [Mass/Vol] 02:570500 [facility] (80772) Glucose Test 1+ (A) 06-21-2019 Hospital strip (U) 02:050 [facility] [Mass/Vol] [facility] (42078) HCO3 (P) 17 (L) 06-21-2019 Hospital [Moles/Vol] 02:570500 [facility] (05693) Hematocrit (Bld) 27.0 % (L) 36.1 - 50.3 % 06-21-2019 H ospital [Volume 02:570500 [facility] fraction] [facility] (64929) Hemoglobin (Bld) 8.8 g/dL (L) 12.1 - 17.2 g/dL 06-21-2019 Hospital [Mass/Vol] 02:570500 [facility] (80102) Hemoglobin Ql 2+ (A) 06-21-2019 Hospital (U) 02: [facility] (51299) Ketones (U) Negative (no code) 06-21-2019 Hospital [Mass/Vol] 02:050 [facility] (09408) Leukocyte Trace (A) 06-21-2019 Hospital esterase Test 02: [facility] strip Ql (U) [facility] (10705) Lymphocytes 0.21 10*3/uL (L) 0.9 - 2.9 06-21-2019 Hospita l (Bld) [#/Vol] 10*3/uL 02: [facility] (81093) Lymphocytes/100 6.0 % (L) 20 - 40 % 06-21-2019 Hospit al WBC (Bld) 02: [facility] () Magnesium 2.0 mg/dL (no code) 1.7 - 2.2 mg/dL 06-21-2019 Hospit al [Mass/Vol] 02: [facility] (63955) MCH (RBC) 32.5 pg (H) 27 - 31 pg 06-21-2019 Hospital [Entitic mass] 02: [facility] (85682) MCHC (RBC) 32.6 g/dL (no code) 32 - 36 g/dL 06-21-2019 Hospital [Mass/Vol] 02: [facility] (95344) MCV (RBC) 99.6 fL (H) 80 - 100 fL 06-21-2019 Hospital [Entitic vol] 02:050 [facility] (28325) Monocytes (Bld) 0.4 10*3/uL (no code) 0.3 - 0.9 06-21-2019 Hosp ital [#/Vol] 10*3/uL 02:050 [facility] (44678) Monocytes/100 10.0 % (no code) 2 - 8 % 06-21-2019 Hospital WBC (Bld) 02: [facility] (16913) Neutrophils 2.82 10*3/uL (no code) 1.7 - 7 10*3/uL 06-21-2019 H ospital (Bld) [#/Vol] 02:57050 [facility] (10860) Neutrophils/100 80.3 % (H) 40 - 60 % 06-21-2019 Hospit al WBC (Bld) 02: [facility] () Nitrite Ql (U) Negative (no code) 06-21-2019 Hospital 02: [facility] (23781) Osmolality Calc 298 (H) 06-21-2019 Hospital [Osmolality] 02: [facility] () pH (U) 5.5 [pH] (no code) 4.6 - 8 [pH] 06-21-2019 Hospital 02:050 [facility] () Phosphate 3.5 mg/dL (no code) 2.4 - 4.1 mg/dL 06-21-2019 Hospit al [Mass/Vol] 02:57050 [facility] (70777) Platelet mean 11.5 fL (H) 7.2 - 11.7 fL 06-21-2019 Hosp ital volume (Bld) 02:050 [facility] [Entitic vol] [facility] (16403) Platelets (Bld) 176 10*3/uL (no code) 150 - 450 06-21-2019 Hosp ital [#/Vol] 10*3/uL 02:050 [facility] (71122) Potassium 5.2 mmol/L (no code) 3.7 - 5.2 mmol/L 06-21-2019 Hosp ital [Moles/Vol] 02:050 [facility] (39609) Protein (U) 2+ (A) 06-21-2019 Hospital [Mass/Vol] 02:57050 [facility] (43222) Protein (U) 46 mg/dL (H) 0 - 20 mg/dL 06-21-2019 Hospita l [Mass/Vol] 02:050 [facility] (58642) Protein 6.0 g/dL (no code) 6.4 - 8.3 g/dL 06-21-2019 Hospita l [Mass/Vol] 02:570500 [facility] (98056) Protein/Creatini 0.43 (no code) 06-21-2019 Hospital ne (U) [Ratio] 02:050 [facility] (95749) RBC (Bld) 2.71 10*6/uL (L) 4.2 - 6.1 06-21-2019 Hospital [#/Vol] 10*6/uL 02:0500 [facility] (29975) RBC LM.HPF 10-20/HPF (A) 06-21-2019 Hospital (Urine sed) 02:0500 [facility] [#/Area] [facility] (99700) Sodium 138 mmol/L (no code) 135 - 145 mmol/L 06-21-2019 Hosp ital [Moles/Vol] 02:0500 [facility] (71778) Specific gravity 1.020 (no code) 06-21-2019 Hospital (U) [Rel 02:570500 [facility] density[facility] ([id number]) Tacrolimus 9.9 (no code) 06-21-2019 [facility] ([id number] ) LC/MS/MS (Bld) 04:48-0500 [Mass/Vol] Urate [Mass/Vol] 5.9 mg/dL (no code) 3.5 - 7.2 mg/dL 06-21-2019 Hospital 02:570500 [facility] ([id number]) Urea nitrogen 43 mg/dL (H) 7 - 20 mg/dL 06-21-2019 [facility] [Mass/Vol] 02:570500 [facility] ([id number]) Urobilinogen Qn [id number] (A) 06-21-2019 Hospital (U) {Zari'U}/dL 02:570500 [facility] ([id number]) WBC (Bld) 3.51 10*3/uL (L) 3.5 - 10.5 06-21-2019 Hospital [#/Vol] 10*3/uL 02:57-0500 [facility] ([id number]) WBC LM.HPF 5-10/HPF (A) 06-21-2019 Hospital (Urine sed) 02:57-0500 [facility] ([id number]) Yeast.budding Ql No Yeast present (no code) 06-21-2019 [facility]osp [facility] (Urine sed) 02:57-0500 [facility] ([id number]) laboratory on 2019-06-20 BK virus DNA Negative (no code) 06-20-2019 [facility] (0000 0) SHIELA+probe 07:42-0500 [#/Vol] BK virus DNA TNP (no code) 06-20-2019 [facility] (0000 0) SHIELA+probe [Log 07:42-0500 #/Vol] CMV DNA TNP (no code) 06-20-2019 [facility] ([id number] ) SHIELA+probe (P) 18:11-0500 [Log units/Vol] CMV DNA Negative (no code) 06-20-2019 [facility] ([id number] ) SHIELA+probe Qn (P) 18:11-0500 not yet categorized on 2019-06-18 BK QUANTITATION Negative (no code) 06-18-2019 Hospital PCR 02:490500 [facility] ([id number]) CMV QUANT DNA Negative (no code) 06-18-2019 Hospital PCR (PLASMA) 02:490500 [facility] ([id number]) CULTURE SOURCE clean (no code) 06-18-2019 [facility] 02:490500 [facility] [id number][facility] FINAL CULTURE 20,000-50,000 (no code) 06-18-2019 Hospital RESULTS Gram Positive 02:490500 [facility] Mixed Aida [facility] Probable Skin ([id number]) Contaminant No Further Workup done LOG10 BK QN PCR TEST NOT (no code) 06-18-2019 Hospital PERFORMED. 02:490500 [facility] (04350) LOG10 CMV QN DNA TEST NOT (no code) 06-18-[address] PERFORMED. 02:490500 [facility] ([id number]) MEDIA PLATED Setup at 08:17 (no code) 06-18-2019 Hospital on 06/18/2019 02:49-0500 [facility] ([id number]) PRELIM CULTURE <10,000 Gram (no code) 06-18-2019 Hospital RESULTS Positive Mixed 02: [facility] f Aida [facility] Probable Skin ([id number]) Contaminant TACROLIMUS 9.9 (no code) 06-18-2019 Hospital ([id number]), BLOOD 02: [facility] (32193) Urine Volume Urine Volume (no code) 06-18-2019 Hospital Sufficient 02: [facility] (10mL) [facility] (54305) no information Culture to (A) 06-18-2019 Hospital follow 02: [facility] ([id number]) laboratory on 2019-06-18 Albumin BCG dye 3.6 (no code) 06-18-2019 Hospital [Mass/Vol] 02: [facility] (59080) ALP [Catalytic 82 U/L (no code) 44 - 147 U/L 06-18-2019 Hosp ital activity/Vol] 02: [facility] (39438) ALT [Catalytic 11 U/L (no code) 4 - 40 U/L 06-18-2019 Hospit al activity/Vol] 02: [facility] (10848) Anion gap 14 mmol/L (no code) 3 - 11 mmol/L 06-18-2019 Hospital [Moles/Vol] 02: [facility] (13110) AST [Catalytic 11 U/L (no code) 10 - 34 U/L 06-18-2019 Hospi rosa activity/Vol] 02: [facility] (76024) Bacteria LM Ql Trace (A) 06-18-2019 Hospital (Urine sed) 02: [facility] (05058) Basophils (Bld) 0.0 10*3/uL (no code) 0 - 0.3 10*3/uL 06-18-2019 Hospital [#/Vol] 02: [facility] (65914) Basophils/100 0.30 % (no code) 0.5 - 1 % 06-18-2019 Hospital WBC (Bld) 02: [facility] () Bilirubin 0.3 mg/dL (no code) 0.1 - 1.2 mg/dL 06-18-2019 Hospit al [Mass/Vol] 02: [facility] () Bilirubin N/A (A) 06-18-2019 Hospital Confirm Ql (U) 02: [facility] () Bilirubin Ql (U) Negative (no code) 06-18-2019 Hospital 02: [facility] () Calcium 8.7 mg/dL (no code) 8.5 - 10.2 mg/dL 06-18-2019 Hospi rosa [Mass/Vol] 02: [facility] () Chloride 110 mmol/L (no code) 95 - 106 mmol/L 06-18-2019 Hospi rosa [Moles/Vol] 02: [facility] () Clarity (U) Slightly Cloudy (A) 06-18-2019 Hospital 02: [facility] () Color (U) Yellow (no code) 06-18-2019 Hospital 02: [facility] () Creatinine (U) 151.9 mg/dL (H) 06-18-2019 Hospital [Mass/Vol] 02: [facility] () Creatinine 3.91 mg/dL (H) 06-18-2019 Hospital [Mass/Vol] 02: [facility] (12196) Eosinophils 0.2 10*3/uL (no code) 0.05 - 0.5 06-18-2019 Hospita l (Bld) [#/Vol] 10*3/uL 02: [facility] (51696) Eosinophils/100 3.8 % (no code) 1 - 4 % 06-18-2019 Hospit al WBC (Bld) 02: [facility] () Erythrocyte 13.3 % (no code) 11.6 - 14.6 % 06-18-2019 Hospit al distribution 02:49 [facility] width (RBC) [facility] [Ratio] ([id number]) GFR/1.73 sq 17 (L) 90 - 120 06-18-2019 Hospital M.predicted MDRD mL/min/{1.73_m2} mL/min/{1.73_m2} 02:49 [facility] (S/P/Bld) [Vol [facility] rate/Area] (91731) Globulin (S) 2.2 g/dL (L) 2 - 3.5 g/dL 06-18-2019 Hospit al [Mass/Vol] 02:49 [facility] (61310) Glucose 149 mg/dL (H) 60 - 125 mg/dL 06-18-2019 Hospita l [Mass/Vol] 02:49 [facility] (77775) Glucose Test Trace (A) 06-18-2019 Hospital strip (U) 02: [facility] [Mass/Vol] [facility] (35974) HCO3 (P) 20 (L) 06-18-2019 Hospital [Moles/Vol] 02:050 [facility] (43575) Hematocrit (Bld) 28.0 % (L) 36.1 - 50.3 % 06-18-2019 H ospital [Volume 02:49050 [facility] fraction] [facility] () Hemoglobin (Bld) 9.1 g/dL (L) 12.1 - 17.2 g/dL 06-18-2019 Hospital [Mass/Vol] 02:490500 [facility] (79811) Hemoglobin Ql 2+ (A) 06-18-2019 Hospital (U) 02: [facility] (88614) Ketones (U) Negative (no code) 06-18-2019 Hospital [Mass/Vol] 02:49050 [facility] (47193) Leukocyte 1+ (A) 06-18-2019 Hospital esterase Test 02: [facility] strip Ql (U) [facility] (38459) Lymphocytes 0.21 10*3/uL (L) 0.9 - 2.9 06-18-2019 Hospita l (Bld) [#/Vol] 10*3/uL 02: [facility] (46310) Lymphocytes/100 5.4 % (L) 20 - 40 % 06-18-2019 Hospit al WBC (Bld) 02: [facility] () Magnesium 2.0 mg/dL (no code) 1.7 - 2.2 mg/dL 06-18-2019 Hospit al [Mass/Vol] 02: [facility] (62239) MCH (RBC) 32.4 pg (H) 27 - 31 pg 06-18-2019 Hospital [Entitic mass] 02: [facility] () MCHC (RBC) 32.5 g/dL (no code) 32 - 36 g/dL 06-18-2019 Hospital [Mass/Vol] 02: [facility] () MCV (RBC) 99.6 fL (H) 80 - 100 fL 06-18-2019 Hospital [Entitic vol] 02: [facility] () Monocytes (Bld) 0.3 10*3/uL (no code) 0.3 - 0.9 06-18-2019 Hosp ital [#/Vol] 10*3/uL 02: [facility] (87352) Monocytes/100 7.9 % (no code) 2 - 8 % 06-18-2019 Hospital WBC (Bld) 02: [facility] (84934) Mucus Ql (Urine 1+ (A) 06-18-2019 Hospital sed) 02: [facility] (28066) Neutrophils 3.23 10*3/uL (no code) 1.7 - 7 10*3/uL 06-18-2019 H ospital (Bld) [#/Vol] 02: [facility] (18256) Neutrophils/100 82.6 % (H) 40 - 60 % 06-18-2019 Hospit al WBC (Bld) 02: [facility] (40546) Nitrite Ql (U) Negative (no code) 06-18-2019 Hospital 02: [facility] () Osmolality Calc 300 (H) 06-18-2019 Hospital [Osmolality] 02: [facility] () pH (U) 5.5 [pH] (no code) 4.6 - 8 [pH] 06-18-2019 Hospital 02: [facility] () Phosphate 3.8 mg/dL (no code) 2.4 - 4.1 mg/dL 06-18-2019 Hospit al [Mass/Vol] 02: [facility] () Platelet mean 11.3 fL (H) 7.2 - 11.7 fL 06-18-2019 Hosp ital volume (Bld) 02: [facility] [Entitic vol] [facility] () Platelets (Bld) 147 10*3/uL (L) 150 - 450 06-18-2019 Hosp ital [#/Vol] 10*3/uL 02: [facility] () Potassium 5.0 mmol/L (no code) 3.7 - 5.2 mmol/L 06-18-2019 Hosp ital [Moles/Vol] 02: [facility] () Protein (U) 2+ (A) 06-18-2019 Hospital [Mass/Vol] 02: [facility] () Protein (U) 69 mg/dL (H) 0 - 20 mg/dL 06-18-2019 Hospita l [Mass/Vol] 02: [facility] () Protein 5.8 g/dL (L) 6.4 - 8.3 g/dL 06-18-2019 Hospita l [Mass/Vol] 02: [facility] () Protein/Creatini 0.45 (no code) 06-18-2019 Hospital ne (U) [Ratio] 02: [facility] (03581) RBC (Bld) 2.81 10*6/uL (L) 4.2 - 6.1 06-18-2019 Hospital [#/Vol] 10*6/uL 02:0500 [facility] (84379) RBC LM.[facility] TNT (A) 06-18-2019 Hospital (Urine sed) 02: [facility] [#/Area] [facility] (51221) Sodium 139 mmol/L (no code) 135 - 145 mmol/L 06-18-2019 Hosp ital [Moles/Vol] 02: [facility] (22669) Specific gravity 1.025 (no code) 06-18-2019 Hospital (U) [Rel 02: [facility] density] [facility] (06155) Urate [Mass/Vol] 6.8 mg/dL (no code) 3.5 - 7.2 mg/dL 06-18-2019 Hospital 02:490500 [facility] (09827) Urea nitrogen 44 mg/dL (H) 7 - 20 mg/dL 06-18-2019 Hospi rosa [Mass/Vol] 02: [facility] (57712) Urobilinogen Qn [id number] (A) 06-18-2019 Hospital (U) {Zari'U}/dL 02: [facility] f [facility] (87629) WBC (Bld) 3.91 10*3/uL (L) 3.5 - 10.5 06-18-2019 Hospital [#/Vol] 10*3/uL 02:490500 [facility] (67145) WBC LM.[facility] TNT (A) 06-18-2019 Hospital (Urine sed) 02: [facility] [#/Area] [facility] (23211) Yeast.budding Ql No Yeast present (no code) 06-18-2019 Hosp ital (Urine sed) 02:490500 [facility] (40926) laboratory on 2019-01-03 Albumin 4.1 g/dL (N) 3.4 - 5.4 g/dL [facility] [Mass/Vol] [facility] () Albumin/Globulin 1.5 {ratio} (N) 1 - 2.5 {ratio} [facility] [Mass ratio] [facility] () ALP [Catalytic 124 U/L (H) 44 - 147 U/L [facility] activity/Vol] [facility] () ALT [Catalytic 22 U/L (N) 4 - 40 U/L [facility] activity/Vol[facility] () AST [Catalytic 25 U/L (N) 10 - 34 U/L [facility] Health activity/Vol] [facility] () Basophils (Bld) 0.041 10*3/uL (N) 0 - 0.3 10*3/uL [facility] Health [#/Vol] [facility] () Basophils/100 0.6 % (N) 0.5 - 1 % [facility] WBC (Bld) [facility] () Bilirubin 0.3 mg/dL (N) 0.1 - 1.2 mg/dL [facility] Health [Mass/Vol] [facility] (08358) Calcium 8.8 mg/dL (N) 8.5 - 10.2 mg/dL On license of [facility] [Mass/Vol] [facility] () Chloride 95 mmol/L (L) 95 - 106 mmol/L [facility] [Moles/Vol] [facility] () CO2 [Moles/Vol] 32 mmol/L (N) 23 - 29 mmol/L Counts Include [facility] (23334[facility] Creatinine 7.89 mg/dL (H) [facility] Healt h [Mass/Vol] [facility] (87909) CRP [Mass/Vol] 35.5 mg/L (H) 0 - 8 mg/L [facility] H ealth [facility] (37315) Eosinophils 0.11 10*3/uL (N) 0.05 - 0.5 [facility] (Bld) [#/Vol] 10*3/uL [facility] () Eosinophils/100 1.6 % (N) 1 - 4 % [facility] WBC (Bld) [facility] (82718) Erythrocyte 13.5 % (N) 11.6 - 14.6 % [facility] ealth distribution [facility] width (RBC) [facility] [Ratio] (49879) ESR (Bld) 19 mm/h (H) [facility] h [Velocity] [facility] (56737) GFR/1.73 sq M 9 (L) 90 - 120 [facility] predicted among mL/min/{1.73_m2} mL/min/{1.73_m2} Center o f [facility] blacks MDRD [facility] (S/P/Bld) [Vol (99158) rate/Area] GFR/1.73 sq 7 (L) 90 - 120 [facility] th M.predicted MDRD mL/min/{1.73_m2} mL/min/{1.73_m2} [facility] (S/P/Bld) [Vol [facility] rate/Area] (60602) Globulin (S) 2.7 g/dL (N) 2 - 3.5 g/dL [facility] [Mass/Vol] [facility] (18609) Glucose 80 mg/dL (N) 60 - 125 mg/dL [facility] [Mass/Vol] [facility] (89122) Hematocrit (Bld) 38.8 % (N) 36.1 - 50.3 % [facility] [Volume [facility]] [facility] (08426) Hemoglobin (Bld) 13.3 g/dL (N) 12.1 - 17.2 g/dL [facility] [Mass/Vol] [facility] (32536) Lymphocytes 0.842 10*3/uL (L) 0.9 - 2.9 [facility] (Bld) [#/Vol] 10*3/uL [facility] (30496) Lymphocytes/100 12.2 % (N) 20 - 40 % [facility] WBC (Bld) [facility] (36233) MCH (RBC) 31.4 pg (N) 27 - 31 pg [facility] [Entitic mass] [facility] (45784) MCHC (RBC) 34.3 g/dL (N) 32 - 36 g/dL [facility] He alth [Mass/Vol] [facility] (11237) MCV (RBC) 91.5 fL (N) 80 - 100 fL [facility] Hea lth [Entitic vol] [facility] (69773) Monocytes (Bld) 0.566 10*3/uL (N) 0.3 - 0.9 Counts [facility] [#/Vol] 10*3/uL [facility] (79546) Monocytes/100 8.2 % (N) 2 - 8 % [facility] He alth WBC (Bld) [facility] (62715) Neutrophils 5.341 10*3/uL (N) 1.7 - 7 10*3/uL [facility] Health (Bld) [#/Vol] [facility] (86154) Neutrophils/100 77.4 % (N) 40 - 60 % [facility] WBC (Bld) [facility] (05119) Platelet mean 10.9 fL (N) 7.2 - 11.7 fL [facility] Health volume (Bld) [facility] [Entitic vol] [facility] (60539) Platelets (Bld) 215 10*3/uL (N) 150 - 450 [facility] Health [#/Vol] 10*3/uL [facility] (21992) Potassium 3.9 mmol/L (N) 3.7 - 5.2 mmol/L Counts Include [facility] [Moles/Vol] [facility] (63815) Protein 6.8 g/dL (N) 6.4 - 8.3 g/dL [facility] [Mass/Vol] [facility] (86427) RBC (Bld) 4.24 10*6/uL (N) 4.2 - 6.1 [facility] Hea lth [#/Vol] 10*6/uL [facility] (68400) Sodium 139 mmol/L (N) 135 - 145 mmol/L On license of [facility] [Moles/Vol] [facility] (54648) Urea nitrogen 51 mg/dL (H) 7 - 20 mg/dL [facility] [Mass/Vol] [facility] (18817) Urea 6 mg/mg (N) 6 - 22 mg/mg [facility] nitrogen/Creatin [facility] [Mass ratio] [facility] (75544) WBC (Bld) 6.9 10*3/uL (N) 3.5 - 10.5 [facility] [#/Vol] 10*3/uL [facility] (90195) urinalysis on 2018-08-04 Clarity (U) Slightly Cloudy (A) 08-04-2018 Hospital 23:10-0400 [facility] (93960) Color (U) Yellow (no code) 08-04-2018 Hospital 23:040 [facility] (00889) Crystals LM Nom Amorphous (no code) 08-04-2018 Hospital (Urine sed) material: 23: [facility] Few/HPF [facility] (74693) Epithelial 0-5/HPF (A) 08-04-2018 Hospital cells.squamous 23: [facility] LM.HPF (Urine [facility] sed) [#/Area] (45348) Leukocyte Negative (no code) 08-04-2018 Hospital esterase Test 23:10040 [facility] strip Ql (U) [facility] (08884) Protein (U) 3+ (A) 08-04-2018 Hospital [Mass/Vol] 23:10-0400 [facility] (09004) RBC LM.HPF 2-5/HPF (A) 08-04-2018 Hospital (Urine sed) 23:100400 [facility] [#/Area] [facility] (09470) Specific gravity 1.020 (no code) 08-04-2018 Hospital (U) [Rel 23:10040 [facility] density] [facility] (31647) WBC LM.HPF 5-10/HPF (A) 08-04-2018 Hospital (Urine sed) 23:10-0400 [facility] [#/Area] [facility] (75733) other on 2018-08-04 Albumin BCG dye 4.2 (no code) 08-04-2018 Hospital [Mass/Vol] 21:40-0400 [facility] (82672) Bacteria LM Ql Trace (A) 08-04-2018 Hospital (Urine sed) 23:10-0400 [facility] (96602) Base excess -2.00 (L) 08-04-2018 Hospital standard Calc 22:35-0400 [facility] (BldA) [facility] [Moles/Vol] (92853) Bilirubin N/A (A) 08-04-2018 Hospital Confirm Ql (U) 23:100400 [facility] (52141) Bilirubin Ql (U) Negative (no code) 08-04-2018 Hospital 23:10-0400 [facility] (78429) CULTURE SOURCE Right Wrist, IV (no code) 08-04-2018 Hospita l start 21:50-0400 [facility] (36106) CULTURE SOURCE cath urine (no code) 08-04-2018 Hospital 23:10-0400 [facility] (08250) Erythrocyte 12.9 % (no code) 11.6 - 14.6 % 08-04-2018 Hospit al distribution 21:40-0400 [facility] width (RBC) [facility] [Ratio] (61983) FINAL CULTURE Negative (no code) 08-04-2018 Hospital RESULTS 21:50-0400 [facility] (23239) FINAL CULTURE No Growth 48 (no code) 08-04-2018 Hospital RESULTS hours 23:10-0400 [facility] (36145) FLUAV and FLUBV Negative (no code) 08-04-2018 Hospital Ag IA.rapid Nom 22:000400 [facility] (Nose) [facility] (88247) GFR/1.73 sq 7 (L) 90 - 120 08-04-2018 Hospital M.predicted MDRD mL/min/{1.73_m2} mL/min/{1.73_m2} 21:40-0400 [facility] (S/P/Bld) [Vol [facility] rate/Area] (65664) Globulin (S) 3.2 g/dL (no code) 2 - 3.5 g/dL 08-04-2018 Hospit al [Mass/Vol] 21:40-0400 [facility] (82453) Glucose Test 2+ (A) 08-04-2018 Hospital strip (U) 23:100400 [facility] [Mass/Vol] [facility] (22050) HCO3 (BldMV) 24 (no code) 08-04-2018 Hospital [Moles/Vol] 22:35-0400 [facility] (84391) HCO3 (P) 22 (no code) 08-04-2018 Hospital [Moles/Vol] 21:40-0400 [facility] (76119) Hemoglobin Ql 2+ (A) 08-04-2018 Hospital (U) 23:100400 [facility] (50520) Ketones (U) Trace (A) 08-04-2018 Hospital [Mass/Vol] 23:100400 [facility] (57212) Lactate 42.3 (H) 08-04-2018 Hospital [Mass/Vol] 21:40-0400 [facility] (02564) MCHC (RBC) 33.7 g/dL (no code) 32 - 36 g/dL 08-04-2018 Hospital [Mass/Vol] 21:40-0400 [facility] (42106) MEDIA PLATED Setup at 21:12 (no code) 08-04-2018 Hospital on 08/04/2018 21:50-0400 [facility] Blood Culture [facility] Media Position ([id number]) B39 MEDIA PLATED Setup at 22:22 (no code) 08-04-2018 Hospital on 08/04/2018 23:10-0400 [facility] (93620) Nitrite Ql (U) Negative (no code) 08-04-2018 Hospital 23:100400 [facility] (31083) Osmolality Calc 307 (H) 08-04-2018 Hospital [Osmolality] 21:400400 [facility] (85214) Oxygen adjusted 52 (L) 08-04-2018 Hospital to patient's 22:35-0400 [facility] actual [facility] temperature (98543) (BldA) [Partial pressure] Oxygen 83 Venous blood (L) 08-04-2018 Hospital saturation sample. 22:35-0400 [facility] adjusted to 0.5 [facility] (BldA) [Partial (17183) pressure] pH (U) 5.5 [pH] (no code) 4.6 - 8 [pH] 08-04-2018 Hospital 23:10040 [facility] (88162) Platelet mean 10.8 fL (H) 7.2 - 11.7 fL 08-04-2018 Hosp ital volume (Bld) 21:40 [facility] [Entitic vol] [facility] (47338) PRELIM CULTURE Negative (no code) 08-04-2018 Hospital RESULTS 21:500 [facility] (05033) PRELIM CULTURE No Growth 24 (no code) 08-04-2018 Hospital RESULTS hours 23: [facility] (61632) Urine Volume Urine Volume (no code) 08-04-2018 Hospital Sufficient 23:10 [facility] (10mL) [facility] (74832) Urobilinogen Qn 0.2 (no code) 08-04-2018 Hospital (U) 23: [facility] (06619) no information Culture to (A) 08-04-2018 Hospital follow 23: [facility] (35578) metabolic panel on 2018-08-04 ALP [Catalytic 150 U/L (H) 44 - 147 U/L 08-04-2018 Hosp ital activity/Vol] 21:40-0400 [facility] (84994) ALT [Catalytic 32 U/L (no code) 4 - 40 U/L 08-04-2018 Hospit al activity/Vol] 21:40-0400 [facility] (86306) Anion gap 22 mmol/L (H) 3 - 11 mmol/L 08-04-2018 Hospital [Moles/Vol] 21:400400 [facility] (63579) AST [Catalytic 33 U/L (no code) 10 - 34 U/L 08-04-2018 Hospi rosa activity/Vol] 21:40-0400 [facility] (90899) Bilirubin 0.5 mg/dL (no code) 0.1 - 1.2 mg/dL 08-04-2018 Hospit al [Mass/Vol] 21:40-0400 [facility] (28285) Calcium 9.1 mg/dL (no code) 8.5 - 10.2 mg/dL 08-04-2018 Hospi rosa [Mass/Vol] 21:40-0400 [facility] (26463) Chloride 97 mmol/L (no code) 95 - 106 mmol/L 08-04-2018 Hospit al [Moles/Vol] 21:40-0400 [facility] () CO2 (Bld) 47 (H) 08-04-2018 Hospital [Partial 22:350400 [facility] pressure] [facility] () Creatinine 8.16 Result (HH) 08-04-2018 Hospital [Mass/Vol] Verified by 21:400400 [facility] Repeat Analysis [facility] () Glucose 310 mg/dL (H) 60 - 125 mg/dL 08-04-2018 Hospita l [Mass/Vol] 21:40-0400 [facility] () Potassium 3.4 mmol/L (L) 3.7 - 5.2 mmol/L 08-04-2018 Hosp ital [Moles/Vol] 21:40-0400 [facility] () Protein 7.4 g/dL (no code) 6.4 - 8.3 g/dL 08-04-2018 Hospita l [Mass/Vol] 21:40-0400 [facility] (84573) Sodium 138 mmol/L (no code) 135 - 145 mmol/L 08-04-2018 Hosp ital [Moles/Vol] 21:40-0400 [facility] (31402) Urea nitrogen 47 mg/dL (H) 7 - 20 mg/dL 08-04-2018 Hospi rosa [Mass/Vol] 21:40-0400 [facility] () hematology on 2018-08-04 Basophils (Bld) 0.0 10*3/uL (no code) 0 - 0.3 10*3/uL 08-04-2018 Hospital [#/Vol] 21:40-0400 [facility] (83634) Basophils/100 1.40 % (no code) 0.5 - 1 % 08-04-2018 Hospital WBC (Bld) 21:40-0400 [facility] (61908) Eosinophils 0.0 10*3/uL (no code) 0.05 - 0.5 08-04-2018 Hospita l (Bld) [#/Vol] 10*3/uL 21:40-0400 [facility] (47139) Eosinophils/100 0.0 % (no code) 1 - 4 % 08-04-2018 Hospit al WBC (Bld) 21:40-0400 [facility] (00690) Hematocrit (Bld) 40.6 % (L) 36.1 - 50.3 % 08-04-2018 H ospital [Volume 21:40-0400 [facility] fraction] [facility] (09842) Hemoglobin (Bld) 13.7 g/dL (L) 12.1 - 17.2 g/dL 08-04-2018 Hospital [Mass/Vol] 21:40-0400 [facility] (81621) Lymphocytes 0.22 10*3/uL (L) 0.9 - 2.9 08-04-2018 Hospita l (Bld) [#/Vol] 10*3/uL 21:40-0400 [facility] (93258) Lymphocytes/100 15.6 % (no code) 20 - 40 % 08-04-2018 Hospit al WBC (Bld) 21:40-0400 [facility] (58003) MCH (RBC) 32.0 pg (H) 27 - 31 pg 08-04-2018 Hospital [Entitic mass] 21:40-0400 [facility] (00435) MCV (RBC) 94.9 fL (no code) 80 - 100 fL 08-04-2018 Hospital [Entitic vol] 21:40-0400 [facility] (85044) Monocytes (Bld) 0.0 10*3/uL (no code) 0.3 - 0.9 08-04-2018 Hosp ital [#/Vol] 10*3/uL 21:40-0400 [facility] (47331) Monocytes/100 0.7 % (no code) 2 - 8 % 08-04-2018 Hospital WBC (Bld) 21:40-0400 [facility] (28446) Neutrophils 1.16 10*3/uL (L) 1.7 - 7 10*3/uL 08-04-2018 H ospital (Bld) [#/Vol] 21:40-0400 [facility] (87820) Neutrophils/100 82.3 % (H) 40 - 60 % 08-04-2018 Hospit al WBC (Bld) 21:40-0400 [facility] (39209) pH (Bld) 7.31 [pH] (L) 7.38 - 7.42 [pH] 08-04-2018 Hospi rosa 22:35-0400 [facility] ([id number]) Platelets (Bld) 120 Result (L) 08-04-2018 Hospital [#/Vol] Verified by 21:40-0400 [facility] ([id number]) RBC (Bld) 4.28 10*6/uL (no code) 4.2 - 6.1 08-04-2018 Hospital [#/Vol] 10*6/uL 21:40-0400 [facility] ([id number]) WBC (Bld) 1.41 Result (L) 08-04-2018 Hospital [#/Vol] Verified by 21:40-0400 [facility] ([id number]) other on 2018-05-30 C peptide <0.1 (L) 05-30-2018 [facility] ([id number] ) [Mass/Vol] 12:28-0500 other on 2018-05-29 C-PEPTIDE, SERUM <0.1 (L) 05-29-2018 Hospital [id number] [facility] ([id number]) metabolic panel on 2018-05-29 Glucose 103 mg/dL (no code) 60 - 125 mg/dL 05-29-2018 Hospita l [Mass/Vol] 11:02-0500 [facility] ([id number]) thyroid on 2018-05-17 TSH Qn 1.48 (no code) 05-17-2018 Hospital 19:05-0500 [facility] ([id number]) other on 2018-05-17 Albumin BCG dye 4.6 (no code) 05-17-2018 Hospital [Mass/Vol] 19:05-0500 [facility] ([id number]) Cholesterol in 33 mg/dL (no code) 05-17-2018 Hospital VLDL [Mass/Vol] 19:050500 [facility] (27560) Cholesterol.tota 4.5 {ratio} (no code) 05-17-2018 Hospital l/Cholesterol in 19:050500 [facility] HDL [Mass ratio] [facility] ([id number]) Gamma glutamyl 23 U/L (no code) 0 - 30 U/L 05-17-2018 Hospit al transferase :050500 [facility] [Catalytic [facility] activity/Vol] ([id number]) Globulin (S) 3.0 g/dL (no code) 2 - 3.5 g/dL 05-17-2018 Hospit al [Mass/Vol] 19:05-0500 [facility] ([id number]) metabolic panel on 2018-05-17 ALP [Catalytic 123 U/L (no code) 44 - 147 U/L 05-17-2018 Hosp ital activity/Vol] 19:05-0500 [facility] ([id number]) ALT [Catalytic 24 U/L (no code) 4 - 40 U/L 05-17-2018 Hospit al activity/Vol] 19:050500 [facility] (35258) AST [Catalytic 27 U/L (no code) 10 - 34 U/L 05-17-2018 Hospi rosa activity/Vol] 19:050500 [facility] (43980) Bilirubin 0.4 mg/dL (no code) 0.1 - 1.2 mg/dL 05-17-2018 Hospit al [Mass/Vol] 19:050500 [facility] (98450) Bilirubin.direct 0.2 mg/dL (no code) 0 - 0.3 mg/dL 05-17-2018 H ospital [Mass/Vol] 19:050500 [facility] (84884) Protein 7.6 g/dL (no code) 6.4 - 8.3 g/dL 05-17-2018 Hospita l [Mass/Vol] 19:05-0500 [facility] (50104) cardiac on 2018-05-17 Cholesterol 154 mg/dL (no code) 180 - 200 mg/dL 05-17-2018 Hosp ital [Mass/Vol] 19:05-0500 [facility] (58994) Cholesterol in 34 mg/dL (no code) 05-17-2018 Hospital HDL [Mass/Vol] 19:05-0500 [facility] (92074) Cholesterol in 87 mg/dL (no code) 0 - 100 mg/dL 05-17-2018 Hos pital LDL [Mass/Vol] 19:05-0500 [facility] (82275) Triglyceride 164 mg/dL (H) 0 - 150 mg/dL 05-17-2018 Hospi rosa [Mass/Vol] 19:05-0500 [facility] (05826) venous blood hemoglobin measurement (mass/volume) on 2017-10-16 Hemoglobin (HGB) 10.0 g/dL (L) 12 - 18 g/dL [facility] (99033) vancomycin trough on 2017-10-16 Vancomycin 30.6 ug/mL (#CH) 0 - 20 ug/mL Via [facility] (30246) serum or plasma urea nitrogen/creatin ine mass ratio on 2017-10-16 BUN/Creatinine 6 mg/mg (no code) 10 - 20 mg/mg Via [facility] (76826) serum or plasma urea nitrogen measurement (mass/volume) on 2017-10-16 Urea nitrogen 46 mg/dL (H) 7 - 20 mg/dL [facility] (36431) serum or plasma sodium measurement (moles/volume) on 2017-10-16 Sodium 134 mmol/L (L) 135 - 147 mmol/L Via [facility] (40645) serum or plasma potassium measurement (moles/volume) on 2017-10-16 Potassium 3.3 mmol/L (L) 3.5 - 5.1 mmol/L Via [facility] (02878) serum or plasma glucose measurement (mass/volume) on 2017-10-16 Glucose 150 mg/dL (H) 60 - 125 mg/dL [facility] ([id number]) serum or plasma creatinine measurement with calculation of estimated glomerular filtration rate on 2017-10-16 eGFR (non-black) 8 (no code) 90 - [id number] Via [facility] isti mL/min/{1.73_m2} mL/min/{1.73_m2} [facility] (55525) serum or plasma creatinine measurement (mass/volume) on 2017-10-16 Creatinine 7.15 mg/dL (#H) [facility] (99592) serum or plasma chloride measurement (moles/volume) on 2017-10-16 Chloride 95 mmol/L (L) 95 - 106 mmol/L Via [facility] (39251) serum or plasma calcium measurement (mass/volume) on 2017-10-16 Calcium 9.6 mg/dL (no code) 9 - 11 mg/dL Via [facility] (30578) serum or plasma anion gap determination (moles/volume) on 2017-10-16 Anion gap 15 mmol/L (H) 3 - 11 mmol/L [facility] (90529) carbon dioxide on 2017-10-16 CO2 24 mmol/L (no code) 23 - 29 mmol/L [facility] (01589) capillary blood glucose measurement by glucometer (mass/volume) on 2017-10-16 Glucose 145 mg/dL (H) 60 - 125 mg/dL [facility] (47968) blood neutrophils automated count (number/volume) on 2017-10-16 Neutrophils 5.4 10*3/uL (no code) 1.5 - 7.8 [facility] 10*3/uL [facility] (43884) blood monocytes/100 leukocytes on 2017-10-16 Monocytes/100 12 % (no code) 2 - 8 % Via [facility] (97227) blood monocytes automated count (number/volume) on 2017-10-16 Monocytes 0.8 10*3/uL (no code) 0.2 - 1.1 [facility] 10*3/uL [facility] (66059) blood lymphocytes automated count (number/volume) on 2017-10-16 Lymphocytes 0.6 10*3/uL (L) 0.85 - 4.1 [facility] 10*3/uL [facility] (16918) blood leukocytes automated count (number/volume) on 2017-10-16 WBC (Leukocytes) 6.9 10*3/uL (no code) 3.8 - 10.8 Via [facility] 10*3/uL [facility] (96926) blood hematocrit (volume fraction) on 2017-10-16 Hematocrit (HCT) 28 % (L) 39 - 51 % Via [facility] (85748) blood erythrocytes automated count (number/volume) on 2017-10-16 Erythrocytes 3.18 10*6/uL (L) 4.2 - 6.1 [facility] (RBC) 10*6/uL [facility] (00410) automated erythrocyte mean corpuscular volume on 2017-10-16 MCV 89 fL (no code) 80 - 100 fL Via [facility] (97168) automated erythrocyte mean corpuscular hemoglobin concentration measurement (mass/volume) on 2017-10-16 MCHC 35 g/dL (no code) 32 - 36 g/dL Via [facility] (83400) automated erythrocyte mean corpuscular hemoglobin (mass per erythrocyte) on 2017-10-16 MCH 31 pg (no code) 27 - 31 pg Via [facility] (59262) automated erythrocyte distribution width ratio on 2017-10-16 RDW-CA 14.4 % (no code) 11 - 15 % Via [facility] (89321) automated eosinophil count on 2017-10-16 Eosinophils 0.1 10*3/uL (no code) 0.05 - 1.5 [facility] 10*3/uL [facility] (90739) automated blood platelet mean volume measurement on 2017-10-16 Platelet mean 12.0 fL (H) 7.2 - 11.7 fL Via [facility] volume (PMV) [facility] (11742) automated blood platelet count (count/volume) on 2017-10-16 Platelets 137 10*3/uL (no code) 150 - 400 Via [facility] 10*3/uL [facility] (77998) automated blood neutrophils/100 leukocytes on 2017-10-16 Neutrophils/100 77 % (H) 40 - 60 % Via [facility] leukocytes [facility] (25178) automated blood lymphocytes/100 leukocytes on 2017-10-16 Lymphocytes/100 9 % (L) 20 - 40 % Via [facility] leukocytes [facility] (38718) automated blood eosinophils/100 leukocytes on 2017-10-16 Eosinophils/100 2 % (no code) 1 - 4 % Via [facility] leukocytes [facility] (82440) automated blood basophils/100 leukocytes on 2017-10-16 Basophils/100 0 % (no code) 0.5 - 1 % Via [facility] leukocytes [facility] (21493) automated blood basophil count (count/volume) on 2017-10-16 Basophils 0.0 10*3/uL (no code) 0 - 0.2 10*3/uL Via [facility] (79344) serum or plasma total bilirubin measurement (mass/volume) on 2017-10-15 Bilirubin 0.4 mg/dL (no code) 0.3 - 1.9 mg/dL [facility] (total) [facility] (75031) serum or plasma protein measurement (mass/volume) on 2017-10-15 Protein 6.2 g/dL (L) 6.4 - 8.3 g/dL [facility] (72195) serum or plasma aspartate aminotransferase measurement (enzymatic activity/volume) on 2017-10-15 Aspartate 16 U/L (no code) 10 - 34 U/L [facility] aminotransferase [facility] [place] (32399) serum or plasma alkaline phosphatase measurement (enzymatic activity/volume) on 2017-10-15 Alkaline 84 U/L (no code) 44 - 147 U/L [facility] phosphatase [facility] [place] (57208) serum or plasma albumin measurement (mass/volume) on 2017-10-15 Albumin 3.4 g/dL (no code) 3.5 - 5.5 g/dL [facility] (14365) serum or plasma alanine aminotransferase measurement (enzymatic activity/volume) on 2017-10-15 Alanine 15 U/L (no code) 10 - 40 U/L [facility] aminotransferase [facility] (ALT[facility] [place] (34087) serum or plasma c reactive protein measurement (mass/volume) on 2017-10-14 C reactive 10.38 mg/L (H) 0 - 1 mg/L [facility] protein (CRP) [facility] (19598) prothrombin time (pt) in platelet poor plasma by coagulation assay on 2017-10-14 Coagulation 14.0 s (no code) [facility] tissue factor [facility] induced in [place] platelet poor (56495) plasma manual eosinophils/100 leukocytes in nose on 2017-10-14 Eosinophils/100 0 % (no code) 1 - 4 % Via [facility] leukocytes [facility] (29195) manual blood segmented neutrophils/100 leukocytes on 2017-10-14 Segmented 87 % (no code) 35 - 80 % [facility] Neutrophils/100 [facility] leukocytes [place] (15401) manual blood lymphocytes/100 leukocytes on 2017-10-14 Lymphocytes/100 2 % (no code) 20 - 40 % Via [facility] leukocytes [facility] (21012) manual blood basophils/100 leukocytes on 2017-10-14 Basophils/100 0 % (no code) 0.5 - 1 % Via [facility] (93966) inr in platelet poor plasma or blood by coagulation assay on 2017-10-14 INR in blood by 1.1 {INR} (no code) 0.9 - 1.1 {INR} Via [facility]i coagulation [facility] (30696) erythrocyte sedimentation rate by westergren method on 2017-10-14 Erythrocyte 34 mm/h (H) [facility] sedimentation [facility] (52173) blood monocytes/100 leukocytes on 2017-10-14 Monocytes/100 8 % (no code) 2 - 8 % Via [facility] leukocytes [facility] (47936) blood lactic acid measurement (moles/volume) on 2017-10-14 Lactate 0.90 mmol/L (no code) 0.5 - 2.2 mmol/L Via [facility] (11135) blood erythrocyte morphology finding identification on 2017-10-14 Erythrocyte NORMAL (no code) [facility] morphology [facility] (34334) blood band neutrophils/100 leukocytes on 2017-10-14 Neutrophils 3 % (no code) 0 - 3 % [facility] band/100 Hospital [facility] (21164) bacterial blood culture on 2017-10-14 Bacteria culture No growth (no code) Via [facility] (70257) activated partial thromboplastin time (aptt) in platelet poor plasma bycoagulation assay on 2017-10-14 aPTT 49 s (H) 25 - 35 s Via [facility] (61057) other on 2017-02-18 C-Peptide, Serum <0.1 (L) 02-18-2017 Not Avail able 13:48-0400 ([id number]) other on 2017-02-17 C-PEPTIDE, SERUM <0.1 (L) 02-17-2017 Not Avail able 09:39-0400 (73097) Cholesterol in 41 mg/dL (no code) 02-17-2017 Not Availab le VLDL mass conc 09:39-0400 (10692) Cholesterol.tota 5.9 {ratio} (no code) 02-17-2017 Not Avail able l/Cholesterol in 09:39-0400 (10302) HDL mass ratio metabolic panel on 2017-02-17 Glucose mass 170 mg/dL (H) 60 - 125 mg/dL 02-17-2017 no i nformation conc 09:39-0400 cardiac on 2017-02-17 Cholesterol in 31 mg/dL (no code) 02-17-2017 Not Availab le HDL mass conc 09:39-0400 (34088) Cholesterol in 111 mg/dL (H) 0 - 100 mg/dL 02-17-2017 Not Available LDL mass conc 09:39-0400 (07015) Cholesterol mass 183 mg/dL (no code) 180 - 200 mg/dL 02-17-2017 Not Available conc 09:390400 (53442) Triglyceride 204 mg/dL (H) 0 - 150 mg/dL 02-17-2017 Not A vailable mass conc 09:39-0400 ([id number]) Vital Signs Vital Sign Value Interpretation Reference Date Time Care Prov ider Facility (Normalized) (Normalized) Range BMI (Body Mass 33.41 kg/m2 (no code) 15 - 25 kg/m2 10-26-2017 Kala HARRELL [facility]) 12:00-0400 [address] [facility] ([id number]) BMI (Body Mass 34.7 kg/m2 (no code) 15 - 25 kg/m2 08-23-2017 ADRY BAILEY Community Index) 16:20-0400 31901 [facility] (37521) BMI (Body Mass 34.94 kg/m2 (no code) 15 - 25 kg/m2 08-03-2017 Kala HARRELL Community Index) 10:00-0400 06794 [facility] (97199) Body 98.4 [degF] (no code) 97.8 - 99.0 10-26-2017 SARI RODRIGUEZ Community Temperature [degF] 12:00-0400 28679 [facility] (56207) Body 98.2 [degF] (no code) 97.8 - 99.0 08-23-2017 DOUGLAS MATTSON [facility] Temperature [degF] 16:20-[address] [place] [address] ([id number]) Body 97.8 [degF] (no code) 97.8 - 99.0 08-03-2017 SARI RODRIGUEZ [facility] Temperature [degF] 10:00-[address] [place] [address] ([id number]) Height 167.64 cm (no code) cm 10-26-2017 SARI HARRELL [facility] 12:00-[address] [place] [address] ([id number]) Height 167.64 cm (no code) cm 08-23-2017 DOUGLAS Ambrose [facility] 16:20-[address] [place] [address] ([id number]) Height 167.64 cm (no code) cm 08-03-2017 SARI HARRELL [facility] 10:00-[address] [place] [address] ([id number]) Weight 93.9 kg (no code) kg 10-26-2017 SARI Ambrose [facility] 12:00-[address] [place] [address] ([id number]) Weight 97.52 kg (no code) kg 08-23-2017 [facility] 16:20-[address] [place] [address] ([id number]) Weight 98.2 kg (no code) kg 08-03-2017 SARI Ambrose [facility] 10:00-[address] [place] [address] ([id number]) Interventions No Information Plan of Treatment Normalized Care Care Detail Care Activity Date Care Provider F acility Activity (CHM) Chronic Health [facility] 06-12-2018 SARI HARRELL [address] [place] [address] [facility] ([id number]) Coronavirus Ab Qn no information no information MD SARI Wilcox [place] [facility] (S) [phone] (Work Phone: [place] [phone] ) ([id number]) Patient referral no information no information MD SARI HARRELL [place] [facility] [address] (Work Phone: [place] [phone] ) ([id number]) no information no information no information DOUGLAS BAILEY [address] [facility] ([id number]) Goals Patient Goal Desired Goal no information no information Social History Normalized Code Original Code Date Value no information no information 11-23-2015 Past History no information no information 11-23-2015 N - meth addict 2 years, clean 14 no information no information 11-23-2015 No no information no information 10-14-2017 Cigarettes Sex Assigned At Sex Assigned At no information M ra Functional Status The data below is from unstructured sources Query Response Date Christofer rded Patient Orientation Person Place Time Situation November 25, 2015 6:22pm Comprehension Ability Understands Co ncepts November 23, 2015 9:00pm Query Response Date Christofer rded Patient Orientation Person Place Time Situation May 12, 2015 12:06pm Patient Orientation Person Place Time Situation May 13, 2015 4:20pm Comprehension Ability Understands Co ncepts May 13, 2015 8:39am Query Response Date Christofer rded Comprehension Ability Understands Co ncepts October 16, 2017 8:00am No Functional Status information available Mental Status The data below is from unstructured sourcesNo Mental Status Information Available Encounters Encounter Normalized Encounter Encounter Diagnosis Care Provi angelia Organization Date Type 09-27-2018 ([facility]) Chronic Health Type 2 diabetes SARI HARRELL (no [facility] Maintenance mellitus without phone) (no phone) complications 06-12-2018 ([facility]) Chronic Health Type 1 diabetes SARI HARRELL (no [facility] Maintenance mellitus with other phone) (no phone) specified complication 12-13-2017 [facility] no information SARI HARRELL (no [facility] phone) (no phone) 11-28-2017 [facility] Type 2 diabetes SARI HARRELL (no [facility] mellitus with diabetic phone) (no phone) polyneuropathy 09-24-2019 Discharged Recurring no information (no phone) As cension [facility] (no phone) 09-24-2019 NEGATED Emergency department no information no name 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 10-14-2017 patient visit 06-07-2017 Emergency department no information no name 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 - patient visit 06-07-2017 10-14-2017 Evaluation and no information ROXANNA RENEE Work 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 - 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 of Phone: 10-16-2017 inpatient 12-23-2017 Patient encounter no information no name no or ganization name - 12-23-2017 NEGATED Patient encounter no information no name no or ganization name 10-26-2017 10-14-2017 Patient encounter no information no name no or ganization name - 10-16-2017 08-23-2017 Patient encounter no information no name no or ganization name 08-03-2017 Patient encounter no information no name no or ganization name 06-07-2017 Patient encounter no information no name no or ganization name 03-30-2017 Patient encounter no information no name no or ganization name 07-01-2016 Patient encounter no information no name no or ganization name - 08-12-2016 02-05-2016 Patient encounter no information no name no or ganization name - 02-09-2016 09-28-2019 Patient encounter no information AD HER MD (no [facility] procedure phone) [facility] (no phone) 09-27-2019 Patient encounter no information PJ DENIS (no [facility] (no 09-27-2019 phone) 09-24-2019 Patient encounter no information AD HER MD (no [facility] - procedure phone) [facility] 09-24-2019 (no phone) 09-24-2019 Patient encounter no information PJ DENIS (no [facility] phone[facility] (no 09-24-2019 phone) 09-21-2019 Patient encounter no information AD HER MD (no [facility] procedure phone) [facility] (no phone) 09-20-2019 Patient encounter no information PJ DENIS (no [facility] phone[facility] (no 09-20-2019 phone) 09-17-2019 Patient encounter no information PJ DENIS (no [facility] phone[facility] of [facility] (no 09-17-2019 phone) 09-13-2019 Patient encounter no information PJ DENIS (no [facility] phone[facility] of [facility] (no 09-13-2019 phone) 09-10-2019 Patient encounter no information PJ DENIS (no [facility] phone[facility] (no 09-10-2019 phone) 09-06-2019 Patient encounter no information PJ DENIS (no [facility] procedure phone[facility] of [facility] (no 09-06-2019 phone) 09-04-2019 Patient encounter no information PJ DENIS (no [facility] procedure phone[facility] of [facility] (no 09-04-2019 phone) 08-30-2019 Patient encounter no information ANDREA DENIS (no ph one) [facility] procedure of [facility] (no 08-30-2019 phone) 08-28-2019 Patient encounter no information ANDREA DENIS (no ph one) [facility] procedure of [facility] (no 08-28-2019 phone) 08-23-2019 Patient encounter no information ANDREA DENIS (no ph one) [facility] procedure of [facility] (no 08-23-2019 phone) 08-15-2019 Patient encounter no information PJ DENIS (no [facility] procedure phone) PJ DENIS of [facility] (no 08-16-2019 (no phone) phone) 08-13-2019 Patient encounter no information PJ DENIS (no [facility] procedure phone) of [facility] (no 08-13-2019 phone) 08-09-2019 Patient encounter no information PJ DENIS (no [facility] procedure phone) PJ DENIS of [facility] (no 08-09-2019 (no phone) phone) 08-05-2019 Patient encounter no information PJ DENIS (no [facility] procedure phone) of [facility] (no 08-06-2019 phone) 08-02-2019 Patient encounter no information Aletha Brown (no [facility] procedure phone) ALETHA BROWN of [facility] (no 08-02-2019 (no phone) PJ phone) DENIS (no phone) ALETHA BROWN (no phone) 07-30-2019 Patient encounter no information PJ DENIS (no [facility] phone[facility] of [facility] (no 07-30-2019 phone) 07-25-2019 Patient encounter no information CHELI ANTON [facility] [place] - procedure [employer] (no phone) [facility] 07-26-2019 Aletha Rendon (no (no phone) phone) ALETHA RENDON (no phone) PJ DENIS (no phone) 07-23-2019 Patient encounter no information CHELI ANTON [facility] procedure [employer] (no phone) [facility] (no phone) 07-19-2019 Patient encounter no information PJ DENIS (no [facility] phone[facility] of [facility] (no 07-19-2019 phone) 07-16-2019 Patient encounter no information PJ DENIS (no [facility] phone) of [facility] (no 07-16-2019 phone) 07-12-2019 Patient encounter no information PJ DENIS (no [facility] phone) of [facility] (no 07-12-2019 phone) 07-10-2019 Patient encounter no information AD HER MD (no [facility] procedure phone) [facility] (no phone) 07-05-2019 Patient encounter no information PJ DENIS (no [facility] phone) of [facility] (no 07-05-2019 phone) 07-02-2019 Patient encounter no information PJ DENIS (no [facility] phone) of [facility] (no 07-02-2019 phone) 06-25-2019 Patient encounter no information PJ DENIS (no [facility] phone) of [facility] (no 06-25-2019 phone) 06-21-2019 Patient encounter no information PJ DENIS (no [facility] phone[facility] of [facility] (no 06-21-2019 phone) 06-18-2019 Patient encounter no information SARI HARRELL (no [facility] procedure phone) [facility] (no phone) 06-18-2019 Patient encounter no information UNLISTED UNLISTED (no [facility] phone[facility] (no 06-18-2019 phone) 05-22-2019 Patient encounter no information no name no or ganization name - procedure 05-22-2019 03-31-2019 Patient encounter no information no name no or ganization name procedure 01-03-2019 Patient encounter no information no name no or ganization name procedure 01-03-2019 Patient encounter no information no name no or ganization name procedure 12-07-2018 Patient encounter no information no name no or ganization name procedure 12-06-2018 Patient encounter no information no name no or ganization name procedure 11-20-2018 Patient encounter no information no name no or ganization name procedure 11-01-2018 Patient encounter no information no name no or ganization name - procedure 11-02-2018 11-01-2018 Patient encounter no information no name no or ganization name - procedure 11-02-2018 09-27-2018 Patient encounter no information no name no or ganization name procedure 08-30-2018 Patient encounter Encounter for general SARIADAN FAULKNEREmre RT (no [facility] - procedure adult medical phone) (no phone) 08-30-2018 examination without abnormal findings 08-21-2018 Patient encounter no information no name no or ganization name procedure 08-04-2018 Patient encounter no information no name no or ganization name - procedure 08-05-2018 07-25-2018 Patient encounter no information no name no or ganization name procedure 07-10-2018 Patient encounter no information no name no or ganization name - procedure 07-11-2018 06-12-2018 Patient encounter no information no name no or ganization name procedure 05-29-2018 Patient encounter no information no name no or ganization name - procedure 05-30-2018 05-17-2018 Patient encounter no information no name no or ganization name - procedure 05-18-2018 10-01-2016 Patient encounter no information no name no or ganization name - procedure 10-02-2016 09-08-2016 Patient encounter no information no name no or ganization name - procedure 11-18-2016 09-07-2016 Patient encounter no information no name no or ganization name procedure 09-02-2016 Patient encounter no information no name no or ganization name - procedure 09-03-2016 08-13-2016 Patient encounter no information no name no or ganization name procedure 06-11-2016 Patient encounter no information no name no or ganization name procedure 06-11-2016 Patient encounter no information no name no or ganization name - procedure 07-02-2016 05-28-2016 Patient encounter no information no name no or ganization name procedure 05-14-2016 Patient encounter no information no name no or ganization name procedure 05-13-2016 Patient encounter no information no name no or ganization name procedure 05-07-2016 Patient encounter no information no name no or ganization name - procedure 05-12-2016 05-06-2016 Patient encounter no information no name no or ganization name - procedure 05-12-2016 01-29-2016 Patient encounter no information no name no or ganization name - procedure 02-09-2016 11-27-2015 Patient encounter no information no name no or ganization name - procedure 12-03-2015 11-05-2015 Patient encounter no information no name no or ganization name - procedure 11-05-2015 09-25-2015 Patient encounter no information no name no or ganization name procedure 09-09-2015 Patient encounter no information no name no or ganization name procedure 08-28-2015 Patient encounter no information no name no or ganization name - procedure 09-03-2015 07-17-2015 Patient encounter no information no name no or ganization name procedure 07-03-2015 Patient encounter no information no name no or ganization name procedure 06-30-2015 Patient encounter no information no name no or ganization name procedure 05-19-2015 Patient encounter no information no name no or ganization name procedure 08-03-2017 PPPS, initial visit no information no name 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 08-21-2018 Telemedicine Gastro-esophageal SARI HARRELL (no [facility] consultation with reflux disease without phone) (no phone) patient esophagitis 10-31-2018 Telephone encounter no information SARI HARRELL (n o [facility] phone) (no phone) 10-30-2018 Telephone encounter Type 2 diabetes SARI HARRELL ( no [facility] mellitus with diabetic phone) (no phone) polyneuropathy 08-21-2018 Telephone encounter no information SARI HARRELL (n o [facility] phone) (no phone) 08-17-2018 Telephone encounter no information SARI HARRELL (n o [facility] phone) (no phone) 07-21-2018 Telephone encounter Type 2 diabetes SARI HARRELL ( no [facility] mellitus with diabetic phone) (no phone) polyneuropathy 07-13-2018 Telephone encounter no information SARI HARRELL (n o [facility] phone) (no phone) 06-16-2018 Telephone encounter Type 2 diabetes SARI HARRELL ( no [facility] mellitus with diabetic phone) (no phone) polyneuropathy 06-14-2018 Telephone encounter Major depressive DOUGLAS BAILEY ( no [facility] disorder, single phone) SARI HARRELL (no phone) episode, unspecified (no phone) 06-13-2018 Telephone encounter Major depressive SARI HARRELL (no [facility] disorder, single phone) DOUGLAS BAILEY (no phone) episode, unspecified (no phone) 05-23-2018 Telephone encounter Type 2 diabetes ELKE ESQUIVEL (no phone) [facility] mellitus with diabetic (no phone) polyneuropathy 04-21-2018 Telephone encounter Type 2 diabetes ELKE ESQUIVEL (no phone) [facility] mellitus with diabetic (no phone) polyneuropathy 04-17-2018 Telephone encounter no information SARI HARRLEL (n o [facility] phone) (no phone) 03-14-2018 Telephone encounter Type 2 diabetes ELKE ESQUIVEL (no phone) [facility] mellitus with diabetic (no phone) polyneuropathy 02-28-2018 Telephone encounter no information SARI HARRELL (n o [facility] phone) (no phone) 02-03-2018 Telephone encounter no information SARI HARRELL (n o [facility] phone) (no phone) 01-05-2018 Telephone encounter Primary insomnia SARI HARRELL (no [facility] phone) (no phone) 07-11-2019 no information Encounter for other no name 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 preprocedural examination no information Encounter for general no name no organ ization name adult medical examination without abnormal findings no information Encounter for other no name no organiz ation name preprocedural examination Medical Equipment The data below is from unstructured sourcesNo Medical Equipment Information available Payers Normalized Payer Value [facility] [employer] [id number] ([id number]) [facility] [employer] no information ([id number]) Unknown no information ([id number]) Medicare no information Evaluation note Note Type Note Facility Evaluation No Assessments Information Available A scension note [facility] ([id number]) Summary Purpose eClinicalWorks SubmissioneClinicalWorks SubmissioneClinicalWorks SubmissioneClinicalWorks SubmissioneClinicalWorks SubmissioneClinicalWorks SubmissioneClinicalWorks SubmissioneClinicalWorks SubmissioneClinicalWorks SubmissioneClinicalWorks SubmissioneClinicalWorks SubmissioneClinicalWorks SubmissioneClinicalWorks SubmissioneClinicalWorks SubmissioneClinicalWorks SubmissioneClinicalWorks SubmissioneClinicalWorks SubmissioneClinicalWorks SubmissioneClinicalWorks SubmissioneClinicalWorks SubmissioneClinicalWorks SubmissioneClinicalWorks SubmissioneClinicalWorks SubmissioneClinicalWorks SubmissioneClinicalWorks SubmissioneClinicalWorks SubmissioneClinicalWorks SubmissioneClinicalWorks SubmissioneClinicalWorks Submission Advance Directives Directive Response Recor ded Date/Time Advance Directives No 2:05am Health Care Power of Windows Application Developer No 11/23/15 2:05am Organ Donor Yes 11/23/15 2:05am Resuscitation Status Full Code 11/23/15 2:05am Directive Response Recor ded Date/Time Advance Directives No 2:05am Health Care Power of Windows Application Developer No 11/23/15 2:05am Organ Donor Yes 11/23/15 2:05am Directive Response Recor ded Date/Time Advance Directives No 1:40pm Health Care Power of Windows Application Developer No 01/22/16 1:40pm Organ Donor Yes 01/22/16 1:40pm Resuscitation Status Full Code 01/22/16 1:40pm Directive Response Recor ded Date/Time Advance Directives No 1:40pm Health Care Power of Windows Application Developer No 01/22/16 1:40pm Organ Donor Yes 01/22/16 1:40pm Directive Response Recor ded Date/Time Advance Directives No 8:05pm Health Care Power of Windows Application Developer No 04/19/16 8:05pm Organ Donor Yes 04/19/16 8:05pm Directive Response Recor ded Date/Time Advance Directives No 12:18pm Health Care Power of Windows Application Developer No 10/30/15 12:18pm Organ Donor No 10/30/15 12:18pm Resuscitation Status Full Code 10/30/15 12:18pm Directive Response Recor ded Date/Time Advance Directives No 7:30pm Health Care Power of Windows Application Developer No 04/18/15 7:30pm Organ Donor No 04/18/15 7:30pm Directive Response Recor ded Date/Time Advance Directives No 7:30pm Health Care Power of Windows Application Developer No 04/18/15 7:30pm Organ Donor No 04/18/15 7:30pm Resuscitation Status Full Code 04/18/15 7:30pm Directive Response Recor ded Date/Time Advance Directives No 8:31am Health Care Power of Windows Application Developer No 11/05/15 8:31am Organ Donor No 11/05/15 8:31am Resuscitation Status Full Code 11/05/15 8:31am Directive Response Recor ded Date/Time Advance Directives No 11:10pm Health Care Power of Windows Application Developer No 10/14/17 11:10pm Organ Donor No 10/14/17 11:10pm Resuscitation Status Full Code 10/14/17 11:10pm Advance Directive Response Recorded Date/Time Advance Directives No Ma 2019 10:10am Health Care Power of Windows Application Developer No September 21, 2019 10:10am Organ Donor No September 21, 2019 10:10am Resuscitation Status Full Code September 21, 2019 10:10am Discharge Instructions Patient Instructions Physician Instructions New, Converted or Re-Newed RX: Transmitted to Pharmacy Goal/Follow Up Appt: DR PADGETT, YOUR CONSTRUCTION DRILLER, TUESDAY AT 10:45. YOU WILL SEE THE SURGEON FOR PERITEONEAL CATHETER PLACEMENT AFTER THAT APPOINTMENT. Patient Instructions: PLEASE TAKE KAYEXALATE DAILY UNTIL YOU SEE DR PADGETT. HE WILL GET LABS ON TUESDAY. THE KAYEXALATE WILL HELP DECREASE YOUR POTASSIUM LEVEL. Return to The Hospital For: INCREASING SHORTNESS OF BREATH, SWELLING, PALPITATIONS Discharge Diet: Low Sodium Diet Activity as Tolerated: Yes Care Plan Patient Instructions:: PLEASE TAKE KAYEXALATE DAILY UNTIL YOU SEE DR PADGETT. HE WILL GET LABS ONT. THE KAYEXALATE WILL HELP DECREASE YOUR POTASSIUM LEVEL. Goal:: DR PADGETT, YOUR CONSTRUCTION DRILLER, TUESDAY AT 10:45. YOU WILL SEE THE SURGEON FOR PERITEONEAL CATHETER PLACEMENT AFTER THAT APPOINTMENT. No hospital discharge instructions.No hospital discharge instructions.Current inpatient/outpatient. Discharge instructions are currently unavailable.No hospital discharge instructions.No hospital discharge instructions.No hospital discharge instructions.No hospital discharge instruction information available.No hospital discharge instructions.Current inpatient/outpatient. Discharge instructions are currently unavailable.No hospital discharge instructions.No hospital discharge instructions.Current inpatient/outpatient. Discharge instructions are currently unavailable.No hospital discharge instructions.No hospital discharge instruction information available. Additional Source Comments This clinical document has been generated using [employer] software that has been certified by the Office of the National Coordinator for Health Information Technology (ONC 15.99.04.3023.Diam.[id number]) and the National Committee for Professor Of Legal Studies (NCQA, as an eMeasure certified technology). FOR RECORDS PERTAINING TO PATIENTS WHO ARE OR HAVE BEEN ENROLLED IN A CHEMICAL D EPENDENCY/SUBSTANCE ABUSE PROGRAM, SOME INFORMATION MAY BE OMITTED. This clinica l summary was aggregated from multiple sources. Caution should be exercised in using it in the provision of clinical care. This summary normalizes information from multiple sources, and as a consequence, information in this document may ma terially change the coding, format and clinical context of patient data. In michi tion, data may be omitted in some cases. CLINICAL DECISIONS SHOULD BE BASED ON T HE PRIMARY CLINICAL RECORDS. [employer] 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 Surgical History right knee meniscus repai r Surgical History hernia repair Surgical History cholecystectomy Surgical History tonsillectomy Hospitalization History surgeries Hospitalization History DKA 02/23/15 Hospitalization History Dyspnea, Acu te Exacerbation CHF, Chronic Renal Failure--[facility] 11/23/15 Type Description Date Medical History Diabetes Type I 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 Surgical History right knee meniscus repai r Surgical History hernia repair Surgical History cholecystectomy Surgical History tonsillectomy Hospitalization History surgeries Hospitalization History DKA 02/23/15 Hospitalization History Dyspnea, Acu te Exacerbation CHF, Chronic Renal Failure--[facility] 11/23/15 Hospitalization History Peritonitis 12/2016 Type Description Date Medical History Diabetes Type I 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 Medical History Bilateral Foot Drop Medical History Depression Medical History Obesity Surgical History right knee meniscus repai r Surgical History hernia repair Surgical History cholecystectomy Surgical History tonsillectomy Surgical History dialysis fistula placemen t 03/2017 Surgical History left eye surgery 08/09/2017 Hospitalization History surgeries Hospitalization History DKA 02/23/15 Hospitalization History Dyspnea, Acu te Exacerbation CHF, Chronic Renal Failure--[facility] 11/23/15 Hospitalization History Peritonitis 12/2016 Type Description Date Medical History Diabetes Type I 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 Medical History Bilateral Foot Drop Medical History Depression Medical History Obesity Surgical History right knee meniscus repai r Surgical History hernia repair Surgical History cholecystectomy Surgical History tonsillectomy Surgical History dialysis fistula placemen t 03/2017 Surgical History left eye surgery 08/09/2017 Surgical History Staph infection rem oval in the left foot Hospitalization History surgeries Hospitalization History DKA 02/23/15 Hospitalization History Dyspnea, Acu te Exacerbation CHF, Chronic Renal Failure--[facility] 11/23/15 Hospitalization History Peritonitis 12/2016 Type Description Date Medical History Diabetes Type I 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 Medical History Bilateral Foot Drop Medical History Depression Medical History Obesity Medical History Left toe amputation Surgical History right knee meniscus repai r Surgical History hernia repair Surgical History cholecystectomy Surgical History tonsillectomy Surgical History dialysis fistula placemen t 03/2017 Surgical History left eye surgery 08/09/2017 Surgical History Staph infection rem oval in the left foot Surgical History left foot surgery/b one removal 10/2017 Surgical History left big toe amputation 03/2018 Hospitalization History surgeries Hospitalization History DKA 02/23/15 Hospitalization History Dyspnea, Acu te Exacerbation CHF, Chronic Renal Failure--[facility] 11/23/15 Hospitalization History Peritonitis 12/2016 Hospitalization History Pneumonia/sepsis 07/2018 UNRECOGNIZED CONTENT PROVIDED BELOW FOR UNRECOGNIZED SECTION REASON FOR VISIT Jose Luis FU - WB-MA, PT was in the hospital the past week and was informed he had a form of Staph on the left foot and it was removedControlled Med Refill [facility] AdmissionRefill requestMedication refill requestRequests return callContr olled Med Refillrequesting orderControlled Med RefillMedication refill request
--- OUTSIDE RECORDS SUMMARY | 2019-09-28 08:36 | XMS REPORT | Encounter Summary ---
Author Author [facility] Organization [facility] Address Unknown Phone Unavailable Care Team Providers Care Classified Ad Taker Name Role Phone Dania Barksdale PCP Encounter Details Care Team Description Date Type Department Michelle Palmer RN 05/24/2018 Abstract [facility] and Liver Transplant Program [address] [place] [address], [address] [place] [address] Social History Date Tobacco Use Types Packs/Day Years Used Quit: 2004 Former Smoker Cigarettes 2 20 Smokeless Tobacco: Never Used Drinks/Week oz/Week Comments Alcohol Use Hx alcoholism; clean for 16 years No Sex Assigned at Date Recorded Not on file Industry Job Start Date Occupation Not on file Not on file Not on file Travel End Travel History Travel Start No recent travel history available. documented as of this encounter Plan of Treatment Not on filedocumented as of this encounter Visit Diagnoses Not on filedocumented in this encounter
--- OUTSIDE RECORDS SUMMARY | 2019-09-28 08:36 | XMS REPORT | Encounter Summary ---
Author Author [facility] Organization [facility] Address Unknown Phone Unavailable Care Team Providers Care Director Of Financial Planning Name Role Phone Dania Barksdale PCP Encounter Details Care Team Description Date Type Department Melecio Nielsen MD [address] [place] [address] Diagnosis deferred (Primary Dx) 05/27/2019 [facility] [address] [place], [place] [id number] Social History Date Tobacco Use Types Packs/Day Years Used Quit: 2003 Former Smoker Cigarettes 2 20 Smokeless Tobacco: [...] Not on filedocumented as of this encounter Results * Heparin Induced Platelet Antibody (05/27/2019 9:25 PM BIOMEDICAL INSTRUMENT TECHNICIAN) Heparin Negative Negative [facility] Heparin 0.073 0.000 - 0.499 [facility] Optical Density Specimen Blood Performing Organization Address City/State/Zipcode Ph one Number [facility] [address] [place] [address] LABORATORIES [facility] [address] [place] [address] documented in this encounter Visit Diagnoses Diagnosis Diagnosis deferred Other unknown and unspecified cause of morbidity or mortality documented in this encounter
--- OUTSIDE RECORDS SUMMARY | 2019-09-28 08:36 | XMS REPORT | Encounter Summary ---
Author Author [facility] Organization [facility] Address Unknown Phone Unavailable Care Team Providers Care Machine Operator Name Role Phone Dania Barksdale PCP Encounter Details Care Team Description Date Type Department Melecio Nielsen MD [address] [place] [address] Diagnosis deferred [facility] [address] [place], [place] [id number] Social History Date Tobacco Use Types Packs/Day [...] history available. documented as of this encounter Medications at Time of Discharge Start Date End Date Medication Sig Dispensed Refills bumetanide (BUMEX) 2 MG Take 2 mg by 0 tablet mouth 2 (two) times a day. CALCIUM ORAL Take 1-3 0 tablets by mouth as directed. Each tablet 667 mg; takes 3 tabs with each meal and one tab with snacks. docusate sodium (COLACE) Take 100 mg 0 100 MG capsule by mouth 2 (two) times a day. FLUoxetine (PROZAC) 20 MG Take 20 mg by 0 tablet mouth every morning. 08/10/2017 homatropine (ISOPTO Instill 1 15 mL 0 HOMATROPINE) 5 % drop into the ophthalmic solution left eye 2 (two) times a day. insulin aspart U-100 Inject under 0 (NOVOLOG) 100 unit/mL the skin. Per injection insulin pump. 08/10/2017 ofloxacin (OCUFLOX) 0.3 % Instill 1 5 mL 0 ophthalmic solution drop into the left eye 4 (four) times a day. omeprazole (PRILOSEC) 40 Take 40 mg by 0 MG capsule mouth every morning. 08/10/2017 prednisoLONE acetate Instill 1 5 mL 0 (PRED FORTE) 1 % drop into the ophthalmic suspension left eye 4 (four) times a day. pregabalin (LYRICA) 75 MG Take 75 mg by 0 capsule mouth 3 (three) times a day. traZODone (DESYREL) 100 Take 100 mg 0 MG tablet by mouth nightly. documented as of this encounter Plan of Treatment Not on filedocumented as of this encounter Procedures Comments Procedure Name Priority Date/Time Associated Diag nosis HEPARIN INDUCED PLATELET STAT 05/27/2019 Diagn osis deferred ANTIBODY 9:25 PM [employer]BON CAPTURE POWER PLANT ENGINEER documented in this encounter Results * Heparin Induced Platelet Antibody (05/27/2019 9:25 PM CARBON CAPTURE POWER PLANT ENGINEER) Heparin Negative Negative [facility] Heparin 0.073 0.000 - 0.499 [facility] Optical Density Specimen Blood Performing Organization Address City/State/Zipcode Ph one Number [address] [address] LABORATORIES [facility] [address] [place] [address] documented in this encounter Visit Diagnoses Diagnosis Diagnosis deferred Other unknown and unspecified cause of morbidity or mortality documented in this encounter
--- OUTSIDE RECORDS SUMMARY | 2019-09-28 08:36 | XMS REPORT | Encounter Summary ---
Author Author [facility] Organization [facility] Address Unknown Phone Unavailable Care Team Providers Care Shade Cloth Finisher Name Role Phone Dania Barksdale PCP Encounter Details Care Team Description Date Type Department Anabella Alva 05/19/2018 Documentation [facility] Kidney and Liver Transplant Program [address] [place] [address], [address] [place], [place] [id number] Social History Date Tobacco Use Types Packs/Day [...]
--- OUTSIDE RECORDS SUMMARY | 2019-09-28 08:36 | XMS REPORT | Encounter Summary ---
Author Author [facility] Organization [facility] Address Unknown Phone Unavailable Care Team Providers Care Chief Guard Name Role Phone Dania Barksdale PCP Encounter Details Care Team Description Date Type Department Radha Shetty RN 05/15/2018 Telephone [facility]ney and Liver Transplant Program [address] [place] [address], [address] [place], [place] [id number] Social History Date Tobacco Use Types Packs/Day [...] history available. documented as of this encounter Miscellaneous Notes * Telephone Encounter - Kayla Cardozo CNA - 05/15/2018 3:24 PM TRANSPORTATION EQUIPMENT PAINTER Created episode SPORTATION EQUIPMENT PAINTER documented in this encounter Plan of Treatment Not on filedocumented as of this encounter Visit Diagnoses Not on filedocumented in this encounter
--- OUTSIDE RECORDS SUMMARY | 2019-09-28 08:36 | XMS REPORT | Encounter Summary ---
Author Author [facility] Organization [facility] Address Unknown Phone Unavailable Care Team Providers Care Analysis Director Name Role Phone Dania Barksdale PCP Reason for Visit * Auth/Cert Referred By Contact Referred To Contact Status Reason Specialty Diagnoses / Procedures Diagnoses E11.3593 P rocedures ME VITRECTOMY,PANRETI NAL LASER RX ME VITRECTOMY,PANRETI NAL LASER RX ME RE-REPAIR DETACH RETINA,SCLER BUCKL 25 GAUGE VITRECTOMY, ENDOLASER LEFT EYE, INDIRECT LASER OF RIGHT EYE Encounter Details Care Team Description [place] [address] [place] [address] [phone] Left eye affected by proliferative diabe tic retinopathy with traction retinal detachment not involving macula, associated with type 2 diabetes mellitus (HCC); Retinal tear, left; Retinal edema of left eye; Vitreous hemorrhage, left (HCC); Vitreous membranes and strands, left eye; Proliferative diabetic retinopathy, right eye (HCC) 08/09/2017 [facility] Hospit al - Encounter [address] 08/10/2017 [place] [address] Social History Date Tobacco Use Types Packs/Day [...] history available. documented as of this encounter Last Filed Vital Signs Reading Time Taken Comments Vital Sign 128/65 08/10/2017 7:30 AM CDT Blood Pressure 85 08/10/2017 7:30 AM CDT Pulse 36.9 C (98.5 F) 08/10/2017 7:30 AM CDT Temperature 18 08/10/2017 7:30 AM CDT Respiratory Rate 96% 08/10/2017 7:30 AM CDT Oxygen Saturation - - Inhaled Oxygen Concentration 103.3 kg (227 lb 12.8 oz) 08/10/2017 3:25 AM CDT Weight 167.6 cm (5' 6") 08/09/2017 12:39 PM CDT Height 36.77 08/09/2017 12:39 PM CDT Body Mass Index documented in this encounter Discharge Summaries * Destin Dykes MD - 08/10/2017 8:14 AM CDT [facility] DISCHARGE NOTE Patient: Virginia Sorto : 1970 Age: 47 y.o. SUBJECTIVE: Patient comfortable. EXAM: Vital signs stable, afebrile IOP: OD 10, OS 11 Lids: 1+ edema OS Conjunctiva: 3+ injection OS Cornea: Clear, mucous OS Anterior Chamber: Formed, fibrin OS Lens: 2+ nuclear sclerosis Media: Clear, recurrent inferior hemorrhage, 80% air fill OS Optic Nerve - Cup-to-disc: 0.2 OD, optic nerve neovascularization Macula: Retina is flat OS Peripheral Retina: Good early laser photocoagulation reaction OS Procedure(s): 25 GAUGE VITRECTOMY, MEMBRANE PEELING, ENDOLASER, AIR-FLUID EXCHANGE, SUBCONJUNC TIVAL INJECTION LEFT EYE, INDIRECT LASER OF RIGHT EYE FINAL DIAGNOSIS: Post-Op Diagnosis Codes: * Left eye affected by proliferative diabetic retinopathy with traction retin al detachment not involving macula, associated with type 2 diabetes mellitus (HC C) [E11.3532] * Retinal tear, left [H33.312] * Retinal edema of left eye [H35.81] * Vitreous hemorrhage, left (HCC) [H43.12] * Vitreous membranes and strands, left eye [H43.312] * Proliferative diabetic retinopathy, right eye (HCC) [E11.3591] ASSESSMENT: Stable. PLAN: Discharge and follow as an outpatient. Electronically signed by: Destin Dykes 08/10/2017 8:14 AM documented in this encounter Discharge Instructions * Pre-Procedure Instructions* Sarahi Gill RN - 08/03/2017 2:06 PM CDT Current Outpatient Prescriptions Medication Sig Note: bumetanide (BUMEX) 2 MG tablet Take 2 mg by mouth 2 (two) times a day. Note: CALCIUM ORAL Take 1-3 tablets by mouth as directed. Each tablet 667 mg; take s 3 with each meal and one with each snack. Note: docusate sodium (COLACE) 100 MG capsule Take 100 mg by mouth 2 (two) times a day. Note: FLUoxetine (PROZAC) 20 MG tablet Take 20 mg by mouth every morning. Note: Ma y Take day of surgery. insulin aspart U-100 (NOVOLOG) 100 unit/mL injection Inject under the skin. Per insulin pump. Note: Continue. omeprazole (PRILOSEC) 40 MG capsule Take 40 mg by mouth every morning. Note: Take day of surgery. pregabalin (LYRICA) 75 MG capsule Take 75 mg by mouth 3 (three) times a day. Note: Take day of surgery. traZODone (DESYREL) 100 MG tablet Take 100 mg by mouth nightly. Note: documented in this encounter Medications at Time of Discharge [...] mouth nightly. documented as of this encounter Progress Notes * Tyrone Pedroza MD - 08/10/2017 8:08 AM CDT [facility] Hospitalist - Progress Note Patient Name: Virginia Sorto Account No: [id number] Date of : 1970 Date of Admission: 08/09/2017 6:17 AM Subjective Follow up regarding DM1, ESRD, vitreal hemorrhage s/p vitrectomy Feels well this am. Mild headache. Reports he cannot see out of L eye. Reports historically poor DM control. Dramatic improvement since pump 12/23. Ge ts sugars <70 ~once/month. >200 1-2x/month. Last A1c 7.3% 06/26 - has outpatient endo f/u later this month. Does home hemodialysis - using LUE AV fistula. Plan to have tunneled catheter r emoved in the near future. Review of Systems: A 4-point review of systems was performed and was negative ex cept as noted above. Objective Vital Signs: Temp: 36.9 C (98.5 F) Pulse: 85 Resp: 18 BP: 128/65 SpO2: 96 % Height: 167.6 cm (5' 6") Weight: 103.3 kg (227 lb 12.8 oz) No intake/output data recorded. Physical Exam: NAD VA: can only appreciate light OS, not hand motion. Lung - CTA bilat CV - RRR without murmur. L chest tunneled catheter Abdomen - soft, NT. Ext - LUE fistula. R>L olecranon bursitis I have personally reviewed the patient's vital signs, laboratory/pathology/cultu re results (as indicated), current inpatient medications, desktop support consultant notes and s upport staff notes with pertainent findings noted within the assessment/plan. Assessment/Plan Mr. Virginia Sorto is a 47 y.o. male who was admitted on 08/09/2017 with vitreous h emoprrhage, PDR. Problems addressed with today's visit include: * Vitreous hemorrhage, left (HCC) PDR OU with vitreal hemorrhage/traction retinal detachment/retinal tear OS. 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 POC glucose 103 overnight. On his home insulin/diet regimen, rare hypo/hyperglycemia. Continue pump for now basal rate 0.875 u/hr Carb counts at meals and takes 1 unit per 10 grams of carbs Hypoglycemic protocol in place accuchecks ac/ hs If he is not discharged today, endocrine consult ESRD (end stage renal disease) (HCC) Pt is on home hemodialysis M-F Electrolytes look fine - no indication for urgent hemodialysis Can d/c home today with plans for resumption of home hemodialysis Nephrology following Proliferative diabetic retinopathy of both eyes ([facility]) s/p photocoagulation OU From my perspective, nothing to preclude d/c home this am. See my orders for additional details regarding this patients treatment plan. Room: [address] [place] [address] Diet: Diet-Hemodialysis Code Status: Full Code VTE Prevention: Appropriate VTE orders and/or documentation has been completed for this patient. Franks Catheter: N/A Scheduled Meds: bumetanide 2 mg Oral BID docusate sodium 100 mg Oral BID FLUoxetine 20 mg Oral QAM homatropine 1 drop Left Eye BID ofloxacin 1 drop Left Eye 4x Daily pantoprazole 40 mg Oral QAM AC prednisoLONE acetate 1 drop Left Eye 4x Daily pregabalin 75 mg Oral TID traZODone 100 mg Oral Nightly Continuous Infusions: PRN Meds: acetaminophen, dextrose 50% OR dextrose 50% OR dextrose 10%, glucagon OR glucagon, glucose, ondansetron, traMADol Tyrone Pedroza MD [facility] Please page through physician paging. . * Giuliano Beto - 08/09/2017 6:42 PM CDT [facility] 08/09/17 Patient requested x ray service engineer visit to [facility] for a edward ccessful surgery. Patient is supported by his and extended family. * Casandar Mccrary, JAIME - 08/09/2017 6:22 PM CDT Patient's blood sugar dropped to the low 50's this evening. Patient was instruc smitha to go ahead and eat dinner tray, but also required additional snacks for delano roximately an hour. He was asymptomatic the entire time. stated that caitlin pacheco has had seizures in the past when his sugar has dropped. Patient stated mika t his insulin pump gives him insulin every hour. This nurse requested that sam nt pause his insulin pump at this time until physician can be reached to further instructions. Blood sugar eventually reached 74. * Casandra Mccrary, RN - 08/09/2017 12:17 PM CDT Spoke with dialysis nurse and it was decided per physicians to wait to do dialys is until tomorrow. Stated that patient's labs looked good enough to wait. documented in this encounter H&P Notes * Destin Dykes MD - 08/08/2017 9:25 AM CDT [facility] History & Physical Date: 08/08/2017 PCP: Dania Barksdale MD HPI: a history of proliferative diabetic retinopathy OU Past Medical History: Past Medical History: Diagnosis Date Anemia Cataract in place radames Depression Diabetes mellitus type I (HCC) Dialysis patient (HCC) In home hemodialysis 5 days per week (M-F) through [facility] in [place], [place]. GERD (gastroesophageal reflux disease) Neuropathy ([facility]) Osteoarthritis Retinal disorder radames Sleep apnea uses cpap Past Surgical History: Past Surgical History: Procedure Laterality Date ARTHROSCOPY, KNEE Right CHOLECYSTECTOMY HERNIA REPAIR umbilical INSERTION, CATHETER, FOR PERITONEAL DIALYSIS placement of dialysis catheter in neck x 2 PLACEMENT, FEEDING TUBE, JEJUNOSTOMY, LAPAROSCOPIC with blood sugar > 2400; pt placed in coma tracheotomy Social History: Social History Social History Marital status: Spouse name: N/A Number of children: N/A Years of education: N/A Occupational History Not on file. Social History Main Topics Smoking status: Former Smoker Packs/day: 2.00 Years: 20.00 Types: Cigarettes Quit date: 2003 Smokeless tobacco: Never Used Alcohol use No Comment: Hx alcoholism; clean for 16 years Drug use: No Sexual activity: Not on file Other Topics Concern Not on file Social History Narrative No narrative on file Family History: History reviewed. No pertinent family history. Allergies Allergen Reactions Penicillins Anaphylaxis and Shortness Of Breath Codeine Nausea And Vomiting Medications: No current facility-administered medications for this encounter. Current Outpatient Prescriptions Medication Sig Dispense Refill bumetanide (BUMEX) 2 MG tablet Take 2 mg by mouth 2 (two) times a day. CALCIUM ORAL Take 1-3 tablets by mouth as directed. Each tablet 667 mg; take s 3 tabs with each meal and one tab with snacks. docusate sodium (COLACE) 100 MG capsule Take 100 mg by mouth 2 (two) times a day. FLUoxetine (PROZAC) 20 MG tablet Take 20 mg by mouth every morning. insulin aspart U-100 (NOVOLOG) 100 unit/mL injection Inject under the skin. Per insulin pump. omeprazole (PRILOSEC) 40 MG capsule Take 40 mg by mouth every morning. pregabalin (LYRICA) 75 MG capsule Take 75 mg by mouth 3 (three) times a day. traZODone (DESYREL) 100 MG tablet Take 100 mg by mouth nightly. OCULAR EXAMINATION: VISUAL ACUITY: with correction OD: 20/50-1 OS: CF@1 ft APPLANATION TONOMETRY: OD: 8 mmHg OS: 8 mmHg LIDS: ? 1+ Blepharoptosis OU SLIT-LAMP BIOMICROSCOPY: ? Conjunctiva/Sclera o Nasal and temporal pinguecula OU o 1+ injection OU ? Cornea o Clear OU o Peripheral arcus senilis trace OU ? Anterior Chamber o Deep and quiet OU ? Iris o Normal contours and configurations OU o No neovascularization OU ? Lens o 2+ nuclear sclerosis OU o 1+ cortical OU ? Anterior Vitreous o Trace strand OD o Vitreous hemorrhage OS FUNDUS BIOMICROSCOPY: ? Optic Nerve o Cup-to-disc ratio of 0.15, neovascularization OD o Cup-to-disc ratio of 0.15 OS ? Vascular o Arteriolar narrowing OU ? Macula o Dry, microaneurysms temporally OD o Dispersed vitreous hemorrhage OS ? Periphery o Prior panretinal photocoagulation OD Impressions: Active Hospital Problems Diagnosis *Proliferative diabetic retinopathy of both eyes (HCC) Vitreous hemorrhage, left (HCC) Plan: Mr Sorto elects to proceed with a 25g vitrectomy and endolaser OS and indirect laser OD under general anesthesia. Electronically signed by Destin Dykes 08/08/2017 9:25 AM documented in this encounter Consult Notes * Popeye Lopez, DO - 08/09/2017 9:56 PM CDT [facility] Hospitalist - Consult History & Physical Patient Name: Virginia Sorto Account No: [id number] Date of : 1970 Date of Admission: 08/09/2017 6:17 AM Primary Care Physician: Dania Barksdale MD; Attending Physician: Destin Dykes Md Reason for Consult: mgmt of dm I Subjective History of Present illness: Mr. Virginia Sorto is a 47 y.o. male with hx of DMI u ncontrolled with associated retinopathy, neuropathy and nephropathy, gissel, oa, ge rd, esrd, depression, anemia admitted for elective ophthalmology procedure d/t p roliferative diabetic retinopathy and vitreous hemorrhage of the left eye. Pt h as tolerated procedure well. Pt is to discharge tomorrow. Pt has hx of dmI di agnosed 16 yrs ago. Pt was started on po meds and quickly transitioned to 4 evelyn t regimen. Pt has been quite uncontrolled throughout the years. Pt has been a dmitted with diabetic ketoacidosis on at least 4 occasions. Pt has developed n europathy, retinopathy and nephrology requiring HD. Pt was placed on Minimed in sulin pump last december. Pt does not know how to operate the pump. I looked and current basal rate is 0.875 units/hr. Bolus at meals is based on 1 unit / 10 g vish of carbs. Pt has had no hx of cad or stroke. Pt has been mildly low on ac cuchecks here. His diet at home is not carb limited. Pt denies current chest pain or soa. No abd pain n/v. Review of Systems: A 10-point review of systems was performed and was negative e xcept as noted above. Past Medical History: He has a past medical history of Anemia; Cataract; Depress ion; Diabetes mellitus type I (HCC); Dialysis patient ([facility]); GERD (gastroesophag eal reflux disease); Neuropathy (HCC); Osteoarthritis; Retinal disorder; and Sle ep apnea. Past Surgical History: He has a past surgical history that includes ARTHROSCOPY, KNEE (Right); Cholecystectomy; Hernia repair; PLACEMENT, FEEDING TUBE, JEJUNOST DUNG, LAPAROSCOPIC; tracheotomy; INSERTION, CATHETER, FOR PERITONEAL DIALYSIS; an d placement of dialysis catheter. Family History: He indicated that his mother is alive. He indicated that his fat her is . His family history is not on file. Social History: He reports that he quit smoking about 14 years ago. His smoking use included Cigarettes. He has a 40.00 pack-year smoking history. He has never used smokeless tobacco. He reports that he does not drink alcohol or use drugs. Allergies: He is allergic to penicillins and codeine. Prior to Admission medications Medication Sig bumetanide (BUMEX) 2 MG tablet Take 2 mg by mouth 2 (two) times a day. CALCIUM ORAL Take 1-3 tablets by mouth as directed. Each tablet 667 mg; takes 3 tabs with each meal and one tab with snacks. docusate sodium (COLACE) 100 MG capsule Take 100 mg by mouth 2 (two) times a day . FLUoxetine (PROZAC) 20 MG tablet Take 20 mg by mouth every morning. insulin aspart U-100 (NOVOLOG) 100 unit/mL injection Inject under the skin. Per insulin pump. omeprazole (PRILOSEC) 40 MG capsule Take 40 mg by mouth every morning. pregabalin (LYRICA) 75 MG capsule Take 75 mg by mouth 3 (three) times a day. traZODone (DESYREL) 100 MG tablet Take 100 mg by mouth nightly. Objective Vital Signs: Temp: 36.5 C (97.7 F) Pulse: 71 Resp: 18 BP: 125/65 SpO2: 98 % Height: 167.6 cm (5' 6") Weight: 103.4 kg (228 lb) I/O last 24 Hours: In: 1459.8 [P.O.:600; I.V.:859.8] Out: - Physical Exam: Gen: Calm, cooperative HEENT: left eye patch noted CV: S1 & S2 normal, no murmurs, gallops, or rub Resp: CTAB, no wheezes, crackles, or rhonchi Abd: S/ND/NT, +BS, no guarding or rebound Ext: No c/c/e Skin: Warm, dry, & intact with no obvious rashes or significant lesions Neuro: A/Ox4, CN's II-XII grossly intact, strength intact, no focal neurologic deficits Sensory deficits chronic No ECG needed/obtained. I have personally reviewed the patient's vital signs, laboratory/pathology/cultu re results (as indicated), imaging studies (results were not discussed with the performing provider), diagnostic tests/studies (results were not discussed with the performing provider), current inpatient medications, desktop support consultant notes and [facility] staff notes with pertainent findings noted within the assessment/plan. I dane wallis personally reviewed the patient's past medical, surgical, family, or social history and there were no changes reported. Assessment/Plan Mr. Virginia Sorto is a 47 y.o. male who was admitted on 08/09/2017 with complaint of dm I. 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 (HCC) With associated retinopathy, neuropathy, and nephrology Continue pump for now basal rate 0.875 u/hr Carb counts at meals and takes 1 unit per 10 grams of carbs Liberalize diet to HD without carb restriction as he had some hypoglycemia Hypoglycemic protocol in place accuchecks ac/ hs Home tomorrow If he would remain in the hospital tomorrow will have endocrine c onsult ESRD (end stage renal disease) ([facility]) Pt is on home hemodialysis Will check renal panel in am to assure K is stable Vitreous hemorrhage, left ([facility]) Ophthalmology following In addition, see my orders for additional details regarding this patients treatm ent plan. Diet: Diet-Hemodialysis Code Status: Full Code VTE Prevention: Appropriate VTE orders and/or documentation has been completed for this patient. Thank you for the opportunity to participate in this patients care. We will cont inue to follow. Popeye Lopez DO [facility] Please page through physician paging. . * Nick Cortez MD - 08/09/2017 1:00 PM CDT Associated Order(s): IP CONSULT TO NEPHROLOGY [facility] ESRD CONSULT NOTE NAME: Virginia Sorto CPI: [id number] AGE: 47 y.o. : 1970 ADMISSION DATE: 08/09/2017 PRIMARY CARE PROVIDER: Dania Barksdale MD HISTORY OF PRESENT ILLNESS: Mr. Sorto is a 47 yo AAM w/ PMH significant for DM with neuropathy and signific ant retinopathy and ESRD on Tuesday through Tuesday dialysis who presents to [facility] w / a history of proliferative diabetic retinopathy. Patient was admitted under op hthalmology to have operation done on his eyes. He is now s/p successful vitrect dung and endolaser OS and indirect laser OD under general anesthesia. Nephrology was consulted for inpatient dialysis. Patient has a long history of u ncontrolled diabetes, and has multiple microvascular complications, including re tinopathy and nephropathy. Patient has been on dialysis since December 2015 due to CKD secondary to diabetes, is now ESRD. Reports dialyzing every day during the week and does in home dialysis, and has the weekends off. Denies chest pain, shortness of breath, abdominal pain, nausea, vomiting, joint pain, diarrhea, constipation, dysuria PAST MEDICAL HISTORY: Past Medical History: Diagnosis Date Anemia Cataract in place radames Depression Diabetes mellitus type I (HCC) Dialysis patient (HCC) In home hemodialysis 5 days per week (M-F) through [facility] in [place], [place]. GERD (gastroesophageal reflux disease) Neuropathy (HCC) Osteoarthritis Retinal disorder radames Sleep apnea uses cpap PAST SURGICAL HISTORY: Past Surgical History: Procedure Laterality Date ARTHROSCOPY, KNEE Right CHOLECYSTECTOMY HERNIA REPAIR umbilical INSERTION, CATHETER, FOR PERITONEAL DIALYSIS placement of dialysis catheter in neck x 2 PLACEMENT, FEEDING TUBE, JEJUNOSTOMY, LAPAROSCOPIC with blood sugar > 2400; pt placed in coma tracheotomy SOCIAL HISTORY: Social History Social History Marital status: Spouse name: N/A Number of children: N/A Years of education: N/A Occupational History Not on file. Social History Main Topics Smoking status: Former Smoker Packs/day: 2.00 Years: 20.00 Types: Cigarettes Quit date: 2003 Smokeless tobacco: Never Used Alcohol use No Comment: Hx alcoholism; clean for 16 years Drug use: No Sexual activity: Not on file Other Topics Concern Not on file Social History Narrative No narrative on file FAMILY HISTORY: History reviewed. No pertinent family history. ALLERGIES: Penicillins and Codeine PRIOR TO ADMISSION MEDICATIONS: Prescriptions Prior to Admission Medication Sig Dispense Refill Last Dose bumetanide (BUMEX) 2 MG tablet Take 2 mg by mouth 2 (two) times a day. 08/08 at Unknown time CALCIUM ORAL Take 1-3 tablets by mouth as directed. Each tablet 667 mg; take s 3 tabs with each meal and one tab with snacks. Past Week at Unknown time docusate sodium (COLACE) 100 MG capsule Take 100 mg by mouth 2 (two) times a day. 08/08/2017 at Unknown time FLUoxetine (PROZAC) 20 MG tablet Take 20 mg by mouth every morning. 08/10/19 18 at Unknown time insulin aspart U-100 (NOVOLOG) 100 unit/mL injection Inject under the skin. Per insulin pump. omeprazole (PRILOSEC) 40 MG capsule Take 40 mg by mouth every morning. 08/09 at Unknown time pregabalin (LYRICA) 75 MG capsule Take 75 mg by mouth 3 (three) times a day. 08/09/2017 at Unknown time traZODone (DESYREL) 100 MG tablet Take 100 mg by mouth nightly. 08/08/2017 a t Unknown time CURRENT MEDICATIONS: Current Facility-Administered Medications Medication Dose Route Frequency Provider Last Rate Last Dose acetaminophen (TYLENOL) tablet 325-650 mg 325-650 mg Oral Q4H PRN Destin Dykes MD 650 mg at 08/09/17 1237 bumetanide (BUMEX) tablet 2 mg 2 mg Oral BID Destin Dykes MD docusate sodium (COLACE) capsule 100 mg 100 mg Oral BID Destin Dykes MD 100 mg at 08/09/17 1228 [START ON 08/10/2017] FLUoxetine (PROzac) capsule 20 mg 20 mg Oral QAM Juwana chelsea Dkyes MD [START ON 08/10/2017] homatropine (ISOPTO HOMATROPINE) 5 % ophthalmic solution 1 drop 1 drop Left Eye BID Destin Dykes MD [START ON 08/10/2017] ofloxacin (OCUFLOX) 0.3 % ophthalmic solution 1 drop 1 drop Left Eye 4x Daily Destin Dykes MD ondansetron (ZOFRAN) injection 4 mg 4 mg Intravenous Q6H PRN Destin perez MD [START ON 08/10/2017] pantoprazole (PROTONIX) EC tablet 40 mg 40 mg Oral QAM AC Destin Dykes MD [START ON 08/10/2017] prednisoLONE acetate (PRED FORTE) 1 % ophthalmic suspens ion 1 drop 1 drop Left Eye 4x Daily Destin Dykes MD pregabalin (LYRICA) capsule 75 mg 75 mg Oral TID Destin Dykes MD 75 mg at 08/09/17 1228 sodium chloride 0.9% infusion 50 mL/hr Intravenous Continuous Bright hackett DO 50 mL/hr at 08/09/17 1224 50 mL/hr at 08/09/17 1224 traZODone (DESYREL) tablet 100 mg 100 mg Oral Nightly Destin Dykes MD FAMILY HISTORY: History reviewed. No pertinent family history. SOCIAL HISTORY: Social History Social History Marital status: Spouse name: N/A Number of children: N/A Years of education: N/A Occupational History Not on file. Social History Main Topics Smoking status: Former Smoker Packs/day: 2.00 Years: 20.00 Types: Cigarettes Quit date: 2003 Smokeless tobacco: Never Used Alcohol use No Comment: Hx alcoholism; clean for 16 years Drug use: No Sexual activity: Not on file Other Topics Concern Not on file Social History Narrative No narrative on file REVIEW OF SYSTEMS: 12 points reviewed and found negative with the exception of the following pertin ent positives and negatives mentioned in the HPI PHYSICAL EXAM: BP (!) 113/97 (BP Location: Right arm, Patient Position: Sitting) | Pulse 81 | Temp 36.3 C (97.3 F) (Oral) | Resp 20 | Ht 1.676 m (5' 6") | Wt 103.4 kg (228 lb) | SpO2 99% | BMI 36.80 kg/m General appearance: alert, appears stated age and cooperative Eyes: conjunctivae/corneas clear. PERRL, EOM's intact, left eye with eye patch o oksana Lungs: clear to auscultation bilaterally Heart: regular rate and rhythm, S1, S2 normal, no murmur, click, rub or gallop Abdomen: soft, non-tender; bowel sounds normal; no masses, no organomegaly Extremities: extremities normal, atraumatic, no cyanosis or edema Pulses: 2+ and symmetric DIALYSIS ACCESS: AVF Weight on Admission: Weight: 94.3 kg (208 lb) Weight Trend: Vitals: 08/03/17 1340 08/09/17 1239 Weight: 94.3 kg (208 lb) 103.4 kg (228 lb) Potassium 08/09/2017: Potassium 3.8 MEQ/L (Ref range: 3.5 - 5.3 MEQ/L) Imaging: Labs & Imaging Data reviewed Medications reviewed ASSESSMENT/PLAN: Mr. Sorto is a 47 yo AAM w/ PMH significant for DM with neuropathy and signific ant retinopathy and ESRD on dialysis who presents to [facility] w/ a history of prolife rative diabetic retinopathy. Now s/p laser procedure done by ophthalmology under general anesthesia. DM2 w/ retinopathy and neuropathy ESRD on Tuesday-Tuesday dialysis due to diabetic nephropathy S/p optho procedure for left and right proliferative diabetic retinopathy and le ft vitreous hemorrhage Recommendations: Schedule-Tuesday through Tuesday Last HD and dry weight: Tuesday, 95.5kg Dialysis Access: AVF Sodium and potassium stable, 138 and K respectively No acute indication for HD today Recommend getting BMP tomorrow am, if K+ is is <5.5 then can resume home dialysis without getting dialyzed here Low potassium diet DC IV fluids, recommend increased oral intake Daily BMP Strict I&Os Staff to confirm plan Nick Cortez MD PGY1 Prelim Internal Medicine Current Facility-Administered Medications Medication Dose Route Frequency Provider Last Rate Last Dose acetaminophen (TYLENOL) tablet 325-650 mg 325-650 mg Oral Q4H PRN Destin Dykes MD 650 mg at 08/09/17 1237 bumetanide (BUMEX) tablet 2 mg 2 mg Oral BID Destin Dykes MD docusate sodium (COLACE) capsule 100 mg 100 mg Oral BID Destin Dykes MD 100 mg at 08/09/17 1228 [START ON 08/10/2017] FLUoxetine (PROzac) capsule 20 mg 20 mg Oral QAM Juwana chelsea Dykes MD [START ON 08/10/2017] homatropine (ISOPTO HOMATROPINE) 5 % ophthalmic solution 1 drop 1 drop Left Eye BID Destin Dykes MD [START ON 08/10/2017] ofloxacin (OCUFLOX) 0.3 % ophthalmic solution 1 drop 1 drop Left Eye 4x Daily Destin Dykes MD ondansetron (ZOFRAN) injection 4 mg 4 mg Intravenous Q6H PRN Destin perez MD [START ON 08/10/2017] pantoprazole (PROTONIX) EC tablet 40 mg 40 mg Oral QAM AC Destin Dykes MD [START ON 08/10/2017] prednisoLONE acetate (PRED FORTE) 1 % ophthalmic suspens ion 1 drop 1 drop Left Eye 4x Daily Destin Dykes MD pregabalin (LYRICA) capsule 75 mg 75 mg Oral TID Destin Dykes MD 75 mg at 08/09/17 1228 sodium chloride 0.9% infusion 50 mL/hr Intravenous Continuous Bright hackett DO 50 mL/hr at 08/09/17 1224 50 mL/hr at 08/09/17 1224 traZODone (DESYREL) tablet 100 mg 100 mg Oral Nightly MD Nick Warner 08/09/2017 1:00 PM Associated attestation - Ghanshyam Davidson MD - 08/09/2017 3:39 PM CDT R enal Staff Addendum: Mr. Virginia Sorto is a 47 y.o. year-old male Presented with Principal Problem: Proliferative diabetic retinopathy of both eyes (HCC) Active Problems: Vitreous hemorrhage, left (HCC) Seen and examined the patient with Resident.I have discussed the plan and parti cipated in the care of the patient with the resident. Agree with the note and pl an with exception. I have personally reviewed the notes, current labs labs, imag ing & medical studies studies, hemodynamic data, fluid balance, I/Os and medications. Ghanshyam Davidson MD "Dr. Knight" Nephrology Staff Office no: [phone] documented in this encounter Nursing Notes * Katharine Gallego RN - 08/10/2017 9:[address] Dykes saw and educated patient on medications and instructions for disch arge. Copy of discharge paperwork provided for patient. Discussed with patient n o bending or lifting and sleeping with pillows to lay approximately 20-30 degree s. Patient sent home with eye patch, eye drops, and eye kit that included eye ri nse/cotton balls/sterile eye pads. Gave patient a medication schedule for eye dr ops to ensure proper dose/frequency. Patient had no further questions at this ti me. Patient discharge home with all belongings at 1005. * Sushma Adame RN - 08/10/2017 6:17 AM CDT Left eye patch removed. * Destin Altman RN - 08/09/2017 11:51 AM CDT Pt meets PACU criteria for discharge to floor. Pt status report called to nurse in charge of pt care on floor, questions and concerns addressed. Pain at moderat e level. Presently no C/O nausea. Chart and belongings with pt. Family informed of pts transfer. documented in this encounter Miscellaneous Notes * Plan of Care - Katharine Gallego RN - 08/10/2017 9:09 AM CDT Problem: Knowledge Deficit Goal: Patient/family/caregiver demonstrates understanding of disease process, tr eatment plan, medications, and discharge instructions Outcome: Progressing Goal: Patient/Family/Caregiver sets realistic goals Outcome: Progressing Problem: Pain Goal: Patient's pain/discomfort is manageable Outcome: Progressing Patient denies pain at this time. Problem: Skin Integrity Goal: Skin integrity is maintained or improved Outcome: Progressing Skin integrity maintained. Problem: Safety Goal: Patient will be injury free during hospitalization Outcome: Progressing Problem: Nutrition Goal: Patient's nutritional intake is adequate Outcome: Progressing Patient tolerating hemodialysis diet. Problem: Risk for Falls Goal: Patient will not fall during their Inpatient stay Outcome: Progressing Fall precautions in place. Patient calls appropriately for assistance. * Assessment & Plan Note - Tyrone Pedroza MD - 08/10/2017 8:07 AM CDT Associated Problem(s): Proliferative diabetic retinopathy of both eyes (HCC) s/p photocoagulation OU * Plan of Care - Sushma Adame RN - 08/09/2017 11:02 PM CDT Problem: Knowledge Deficit Goal: Patient/family/caregiver demonstrates understanding of disease process, tr eatment plan, medications, and discharge instructions Outcome: Progressing Goal: Patient/Family/Caregiver sets realistic goals Outcome: Progressing Problem: Pain Goal: Patient's pain/discomfort is manageable Outcome: Progressing Problem: Skin Integrity Goal: Skin integrity is maintained or improved Outcome: Progressing Problem: Safety Goal: Patient will be injury free during hospitalization Outcome: Progressing Fall risk precautions in place. Problem: Nutrition Goal: Patient's nutritional intake is adequate Outcome: Progressing Problem: Risk for Falls Goal: Patient will not fall during their Inpatient stay Outcome: Progressing * Assessment & Plan Note - Tyrone Pedroza MD - 08/09/2017 9:56 PM CDT Associated Problem(s): ESRD (end stage renal disease) (HCC) Pt is on home hemodialysis M-F Electrolytes look fine - no indication for urgent hemodialysis Can d/c home today with plans for resumption of home hemodialysis Nephrology following * Assessment & Plan Note - Tyrone Pedroza MD - 08/09/2017 9:55 PM CDT Associated Problem(s): Vitreous hemorrhage, left (HCC) PDR OU with vitreal hemorrhage/traction retinal detachment/retinal tear OS. 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 POC glucose 103 overnight. On his home insulin/diet regimen, rare hypo/hyperglycemia. Continue pump for now basal rate 0.875 u/hr Carb counts at meals and takes 1 unit per 10 grams of carbs Hypoglycemic protocol in place accuchecks ac/ hs If he is not discharged today, endocrine consult * Plan of Care - Casandra Mccrary RN - 08/09/2017 12:35 PM CDT Problem: Knowledge Deficit Goal: Patient/family/caregiver demonstrates understanding of disease process, tr eatment plan, medications, and discharge instructions Outcome: Progressing Patient admitted to unit from OR. Agreeable to plan of care. Family at bedside . Problem: Pain Goal: Patient's pain/discomfort is manageable Outcome: Progressing Rates pain in his eye a 3/10, tolerable. Pain medication available and patient is able to express needs. Problem: Skin Integrity Goal: Skin integrity is maintained or improved Outcome: Progressing No skin breakdown. Eye covering on left eye. Problem: Safety Goal: Patient will be injury free during hospitalization Outcome: Progressing HOB above 20-30 degrees. Fall precautions in place. Problem: Nutrition Goal: Patient's nutritional intake is adequate Outcome: Progressing Starting on CLD. Problem: Risk for Falls Goal: Patient will not fall during their Inpatient stay Outcome: Progressing * Operative Note - Destin Dykes MD - 08/09/2017 10:26 AM CDT Name: VIRGINIA SORTO MRN: Date of : 1970 Attending Physician: Destin Dykes MD Date of Procedure: 08/09/2017 PREOPERATIVE DIAGNOSES: 1. Proliferative diabetic retinopathy, both eyes. 2. Vitreous hemorrhage, left eye. POSTOPERATIVE DIAGNOSES: 1. Left eye affected by proliferative diabetic retinopathy with traction retina l detachment, not involving the macula, associated with type 2 diabetes mellitus . 3. Retinal tear, left eye. 4. Retinal edema, left eye. 5. Vitreous hemorrhage, left eye. 6. Vitreous membranes and strands, left eye. 7. Proliferative diabetic retinopathy, right eye. OPERATIVE PROCEDURES: 1. 25-gauge pars plana vitrectomy. 2. Membrane peeling. 3. Endolaser photocoagulation. 4. Air-fluid exchange. 5. Subconjunctival injection all to the left eye. 6. Indirect ophthalmoscopic laser photocoagulation, right eye. SURGEON: Destin Dykes MD. ANESTHESIA: General endotracheal. COMPLICATIONS: None. OPERATIVE PROCEDURE IN DETAIL: After obtaining the proper informed consent, the patient was premedicated and was transported to the operating room. The patient was placed in the supine position and with the appropriate cardiac monitoring and intravenous infusion lines, a general endotracheal anesthetic was induced by the department of anesthesia without difficulty. The patient was then prepped and draped in the usual sterile fashion for vitreoretinal surgery. Miguel lid sp eculums were inserted OS and the operating microscope was positioned above the p atient's left eye. Copious irrigation with Normosol tissue solution was deliver ed to the conjunctival cul-de-sacs and to the lid margins. A ria was then posi tioned exactly 4.0 mm posterior to corneoscleral limbus in the inferior temporal quadrant. A 25-gauge trocar stylet system was then introduced in the vitreous cavity at that ria. A biplanar incision was utilized and the stylet was withdr awn. A 4.0-mm cannulated infusion was placed in the trocar and appropriate plac ement of the trocar and infusion in the vitreous cavity was confirmed by direct observation prior to opening the infusion line at 35 mmHg pressure. Similar scl erotomies were then created in the superior temporal and superior nasal quadrant s exactly 4.0 mm posterior to corneoscleral limbus with the same type of 25-gaug e trocar stylet system. Once again, appropriate placement was confirmed by dire ct observation and biplanar incisions were utilized. The BIOM wide-field micros copic viewing system was then rotated into position. With the high-speed 25-gau ge vitrectomy instrument in the superior nasal sclerotomy site and the intraocul ar light pipe in superior temporal sclerotomy, a central core vitrectomy was ini tiated. The vitrectomy was carried posteriorly until the hyaloid was identified at the optic nerve. The vitrectomy instrument was used to delaminate the hyalo id and to cut vitreoretinal adhesions. Preretinal fibrotic membranes were caref ully delaminated using the vitrectomy instrument. At completion of membrane pee ling, peripheral vitrectomy was accomplished with extensive, 360-degree scleral depression. It was noted that traction retinal detachment had resulted in a ret inal tear in the inferior nasal quadrant. Therefore, air-fluid exchange was per formed with the vitrectomy instrument. Drainage via a posterior retinal break w as accomplished with the brush backflush needle. Upon flattening of the retina, the directional endolaser probe was introduced and a total of 1,515 laser appli cations were delivered with good uptake. The intraocular instruments were remov ed and the superior trocars were pulled as massage and electrocautery were deliv ered to the sclerotomy sites, which were found to be airtight. A similar techni que was used as the infusion cannula was removed from the inferior temporal site . The retina was attached with good optic nerve perfusion and early laser photo coagulation reaction. The eye was then copiously irrigated with Garamycin ophth almic solution and Depo-Medrol 40 mg per mL was injected in the subconjunctival space. The eye was patched with topical TobraDex ointment. Attention was then directed to the right eye. A Barraquer lid speculum was inserted in right eye and with the indirect ophthal moscopic laser, peripheral panretinal laser photocoagulation was delivered witho ut complication. All 4 quadrants were treated and a total of 1,080 applications were applied with good uptake. At completion of laser, the lid speculum was re moved, the anesthetic agent was reversed without difficulty, and the patient was extubated and was transported to the recovery room in good condition. Destin Dykes MD, FACS [id number] CC: * Brief Operative Note - Destin Dykes MD - 08/09/2017 10:07 AM CDT Brief Operative Note Virginia Sorto 08/09/2017 Event Time In Procedure / Incision Start 0835 Event Time In Procedure Finish 1001 Pre-op Diagnosis: E11.3593 Post-op Diagnosis: Post-Op Diagnosis Codes: * Left eye affected by proliferative diabetic retinopathy with traction retin al detachment not involving macula, associated with type 2 diabetes mellitus (HC C) [E11.3532] * Retinal tear, left [H33.312] * Retinal edema of left eye [H35.81] * Vitreous hemorrhage, left (HCC) [H43.12] * Vitreous membranes and strands, left eye [H43.312] * Proliferative diabetic retinopathy, right eye (HCC) [E11.3591] 25 GAUGE VITRECTOMY, MEMBRANE PEELING, ENDOLASER, AIR-FLUID EXCHANGE, SUBCONJUNC TIVAL INJECTION LEFT EYE, INDIRECT LASER OF RIGHT EYE, N/A Surgeon(s) and Role: * Destin Dykes MD - Primary Anesthesia Type: General Staff: Reference Data Expert: Joan Monroe RN; Simona Reaves RN Relief Reference Data Expert: Betty Canas RN Scrub Person: Madelyn Amaya Private Scrub: Stacia Diaz RN Float: Ludwig Nava Anesthesiologist: Bright Jaime DO Anesthesiologist Water Ski Assembler: BRANDIE Parks; BRANDIE Romo Findings: PDR OU, traction RD OS, endolaser OS #1515, RONAL OD #1080 Estimated Blood Loss: Minimal Specimens: None Implants: * No implants in log * Complications: None Destin Dykes MD, FACS Date: 08/09/2017 Time: 10:07 AM documented in this encounter Plan of Treatment Not on filedocumented as of this encounter Procedures Comments Procedure Name Priority Date/Time Associated Diag nosis GLUCOSE POC Routine 08/10/2017 7:50 AM CDT RENAL PANEL Routine 08/10/2017 12:32 AM CDT GLUCOSE POC Routine 08/10/2017 12:13 AM CDT GLUCOSE POC Routine 08/09/2017 10:28 PM CDT GLUCOSE POC Routine 08/09/2017 9:32 PM CDT GLUCOSE POC Routine 08/09/2017 8:19 PM CDT GLUCOSE POC Routine 08/09/2017 6:35 PM CDT GLUCOSE POC Routine 08/09/2017 6:18 PM CDT GLUCOSE POC Routine 08/09/2017 6:07 PM CDT GLUCOSE POC Routine 08/09/2017 5:47 PM CDT GLUCOSE POC Routine 08/09/2017 5:23 PM CDT GLUCOSE POC Routine 08/09/2017 5:00 PM CDT GLUCOSE POC Routine 08/09/2017 4:18 PM CDT GLUCOSE POC Routine 08/09/2017 12:28 PM CDT GLUCOSE POC Routine 08/09/2017 10:22 AM CDT VITRECTOMY, USING 08/09/2017 Left eye affected b y 25-GAUGE INSTRUMENTS 8:00 AM CDT proliferative di abetic retinopathy with traction retinal detachment not involving macula, associated with type 2 diabetes mellitus ([facility]) Retinal tear, left Retinal edema of left eye Vitreous hemorrhage, left ([facility]) Vitreous membranes and strands, left eye Proliferative diabetic retinopathy, right eye (HCC) GLUCOSE POC Routine 08/09/2017 7:18 AM CDT HEPATITIS B SURFACE Add-On 08/09/2017 ANTIGEN 6:39 AM CDT HEPATITIS B SURFACE Add-On 08/09/2017 ANTIBODY QUANT 6:39 AM CDT ELECTROLYTES STAT 08/09/2017 6:39 AM CDT ECG Routine 08/09/2017 6:36 AM CDT documented in this encounter Results * GLUCOSE POC (08/10/2017 7:50 AM CDT) Only the most recent of 15 results within the time period is included. Glucose POC 128 (H) 70 - 100 mg/dL [facility] Specimen Performing Organization Address City/State/Zipcode Ph one Number [address] [address] LABORATORIES * Renal Panel (08/10/2017 12:32 AM CDT) Sodium 133 133 - 147 MEQ/L [facility] Potassium 3.7 3.5 - 5.3 MEQ/L [facility] Chloride 92 (L) 96 - 112 MEQ/L [facility] Carbon Dioxide 28 20 - 32 MEQ/L [facility] Anion Gap 13 5 - 17 [facility] Calcium 9.3 8.4 - 10.5 mg/dL [facility] Glucose 103 (H) 70 - 100 mg/dL [facility] Albumin 3.5 3.5 - 5.0 g/dL [facility] Blood Urea 55 (H) 7 - 26 mg/dL [facility] Creatinine 8.2 (H) 0.6 - 1.3 mg/dL [facility] eGFR Male AA 9 (L) 60 - 200 [facility] Comment: REGIONAL Chronic Kidney Disease less LABORATORIES than 60 mL/min/1.73 sq.m Kidney failure less than 15 mL/min/1.73 sq.m eGFR Male 7 (L) 60 - 200 [facility] Non-AA Comment: REGIONAL Chronic Kidney Disease less LABORATORIES than 60 mL/min/1.73 sq.m Kidney failure less than 15 mL/min/1.73 sq.m Phosphorus 4.9 (H) 2.5 - 4.5 mg/dL [facility] Specimen Blood Performing Organization Address [facility] one Number [address] [address] LABORATORIES * Hepatitis B Surface Antibody Quant (08/09/2017 6:39 AM CDT) Hepatitis B 24.7 mIU/mL [facility] QT Comment: REGIONAL In patients who have received LABORATORIES the Hepatitis B vaccine, an antibody level of 10 mIU/mL or greater is indicative of immunity. Specimen Blood Performing Organization Address [facility] one Number [address] [address] LABORATORIES * Hepatitis B Surface Antigen (08/09/2017 6:39 AM CDT) Hepatitis B Non-reactive Non-reactive [facility] Ag [facility] Specimen Blood Performing Organization Address [facility] one Number [address] [address] LABORATORIES * Electrolytes (08/09/2017 6:39 AM CDT) Sodium 138 133 - 147 MEQ/L [facility] Potassium 3.8 3.5 - 5.3 MEQ/L [facility] Chloride 95 (L) 96 - 112 MEQ/L [facility] Carbon Dioxide 30 20 - 32 MEQ/L [facility] Anion Gap 14 5 - 17 [facility] Specimen Blood Performing Organization Address [facility] one Number [address] [address] LABORATORIES * Electrocardiogram (ECG) (08/09/2017 6:36 AM CDT) Specimen Narrative Performed At [facility] Test Date: 2017-08-09 Pat Name: VIRGINIA SORTO Department: 01 Room: 1411 Gender: Male Courier Driver: GISESLL : 1970 Requested By: AMMY GILLIS Order Number: [id number] Reading MD: Isma Fernandez Measurements Intervals [place] Rate: 81 P: 47 ME: 188 QRS: 11 QRSD: 84 T: 66 QT: 364 QTc: 423 Interpretive Statements SINUS RHYTHM PROBABLE LEFT ATRIAL ABNORMALITY BORDERLINE T ABNORMALITIES, ANT-LAT MAURO DS Electronically Signed On 08-10-2017 16:55 :16 CDT by Isma Fernandez Procedure Note Interface, External Ris In - 08/10/2017 4:55 PM CDT [facility] Test Date: 2017-08-09 Pat Name: VIRGINIA SORTO Department: 01 Room: 1411 Gender: Male Courier Driver: GISSELL : 1970 Requested By: AMMY GILLIS Order Number: [id number] Reading MD: Isma Fernandez Measurements Intervals [place] Rate: 81 P: 47 ME: 188 QRS: 11 QRSD: 84 T: 66 QT: 364 QTc: 423 Interpretive Statements SINUS RHYTHM PROBABLE LEFT ATRIAL ABNORMALITY BORDERLINE T ABNORMALITIES, ANT-LAT LEADS Electronically Signed On 08-10-2017 16:55:16 CDT by Isma Fernandez Performing Organization Address City/State/Zipcode Ph one Number [email or web address] documented in this encounter Visit Diagnoses Diagnosis Left eye affected by proliferative diab etic retinopathy with traction retinal detachment not involving macula, associated with type 2 diabetes mellitus (HCC) Retinal tear, left Retinal edema of left eye Vitreous hemorrhage, left (HCC) Vitreous membranes and strands, left ey e Proliferative diabetic retinopathy, rig ht eye (HCC) Type II or unspecified type diabetes me llitus with ophthalmic manifestations, not stated as uncontrolled Proliferative diabetic retinopathy of b oth eyes (HCC) Type II or unspecified type diabetes me llitus with ophthalmic manifestations, not stated as uncontrolled Uncontrolled type 1 diabetes mellitus w ith ophthalmic complication (HCC) ESRD (end stage renal disease) (HCC) End stage renal disease documented in this encounter Administered Medications Action Date Dose Rate Site Medication Order MAR Action 08/09/2017 7:15 AM CDT 1,000 mg acetaminophen (TYLENOL) tablet 1,000 mg Given 1,000 mg, Oral, Once, Tue08/09/17 at 0730, For 1 dose, Pre-op, Do not exceed 4 GM/DAY of acetaminophen. If 65 or older do not exceed 3 GM/DAY. If chroni c alcoholic do not exceed 2 GM/DAY., 08/09/2017 12:37 PM CDT 650 mg acetaminophen (TYLENOL) tablet 325-650 Given mg 325-650 mg, Oral, Every 4 hours PRN, mild pain (pain score 1-3), Starting 08/09/17 at 1200, Do not exceed 4 GM/DAY of acetaminophen. If 65 or older do no t exceed 3 GM/DAY. If chronic alcoholic d o not exceed 2 GM/DAY., 08/10/2017 8:52 AM CDT 2 mg bumetanide (BUMEX) tablet 2 mg Given 2 mg, Oral, 2 times daily, First dose o n Tue08/09/17 at 1230 2 mg Given 08/09/2017 9:42 PM CDT 2 mg Given 08/09/2017 2:46 PM CDT dextrose 10% (D10W) bolus 125-250 mL 125-250 mL, Intravenous, at 500-1,000 mL/hr, As needed, low blood sugar, Starting Tue08/09/17 at 2206, Give if patient NPO and IV access already available. If no IV access give Glucagon SQ or IM in arm and turn patient on side. For blood glucose (BG): Less than 50 mg/dL: Give D10W 250 mL. Check BG every 15 minutes and repea t until greater than 80 mg/dL. Less than 70 mg/dL: Give D10W 125 mL. Check BG every 15 minutes and repeat until greater than 80 mg/dL. Less than 70 mg/dL and patient unconscious: Give D10 W 250 mL. Call physician for additional orders. Check BG every 15 minutes and repeat until greater than 80 mg/dL. Once blood glucose greater than 80 mg/dL, check BG in one hour. Call physician if less than 70 mg/dL., dextrose 50% (D50W) 50 % injection 25-5 0 mL 25-50 mL, Intravenous, As needed, low blood sugar, Starting Tue08/09/17 at 2206, Give if patient NPO and IV access already available. If no IV access giv e Glucagon SQ or IM in arm and turn patient on side. For blood glucose (BG): Less than 50 mg/dL: Give D50W 50 mL. Check BG every 15 minutes and repea t until greater than 80 mg/dL. Less than 70 mg/dL: Give D50W 25 mL. Check BG every 15 minutes and repeat until greater than 80 mg/dL. Less than 70 mg/dL and patient unconscious: Give D50 W 50 mL. Call physician for additional orders. Check BG every 15 minutes and repeat until greater than 80 mg/dL. Once blood glucose greater than 80 mg/dL, check BG in one hour. Call physician if less than 70 mg/dL., dextrose 50% (D50W) syringe 25-50 mL 25-50 mL, Intravenous, As needed, low blood sugar, Starting Tue08/09/17 at 2206, Give if patient NPO and IV access already available. If no IV access giv e Glucagon SQ or IM in arm and turn patient on side. For blood glucose (BG): Less than 50 mg/dL: Give D50W 50 mL. Check BG every 15 minutes and repea t until greater than 80 mg/dL. Less than 70 mg/dL: Give D50W 25 mL. Check BG every 15 minutes and repeat until greater than 80 mg/dL. Less than 70 mg/dL and patient unconscious: Give D50 W 50 mL. Call physician for additional orders. Check BG every 15 minutes and repeat until greater than 80 mg/dL. Once blood glucose greater than 80 mg/dL, check BG in one hour. Call physician if less than 70 mg/dL., 08/10/2017 8:52 AM CDT 100 mg docusate sodium (COLACE) capsule 100 mg Given 100 mg, Oral, 2 times daily, First dose on Tue08/09/17 at 1230, DO NOT CRUSH OR CHEW., 100 mg Given 08/09/2017 9:42 PM CDT 100 mg Given 08/09/2017 12:28 PM CDT 08/09/2017 11:48 AM CDT 25 mcg fentaNYL (SUBLIMAZE) injection 25-50 mcg Given 25-50 mcg, Intravenous, Every 5 min PRN , pain, Starting Tue08/09/17 at 1024, PACU (only), Give only if RR is greater than 8 breaths/min. Maximum of 200 mcg in 2 hours., 25 mcg Given 08/09/2017 10:56 AM CDT 08/10/2017 6:14 AM CDT 20 mg FLUoxetine (PROzac) capsule 20 mg Given 20 mg, Oral, Every morning, First dose on Tue08/10/17 at 0700 08/09/2017 7:10 AM CDT 1 drop flurbiprofen (OCUFEN) 0.03 % ophthalmic Given solution 1 drop 1 drop, Left Eye, Every 5 min, First dose on Tue08/09/17 at 0700, For 3 doses , Pre-op, Start medications in Pre-op Admissions 45 minutes prior to surgery, 1 drop Given 08/09/2017 7:05 AM CDT 1 drop Given 08/09/2017 7:00 AM CDT glucagon (GLUCAGEN) injection 1 mg 1 mg, Intramuscular, As needed, low blood sugar, low blood sugar, Starting Tue08/09/17 at 2206, Give if patient NPO and no IV access. May give IM or SQ in arm and turn patient on side., glucagon (GLUCAGEN) injection 1 mg 1 mg, Subcutaneous, As needed, low bloo d sugar, low blood sugar, Starting Tue08/09/17 at 2206, Give if patient NPO and no IV access. May give IM or SQ in arm and turn patient on side., glucose chewable tablet 16-32 g 16-32 g, Oral, As needed, low blood sugar, Starting Tue08/09/17 at 2206, Giv e food, drink, or glucose tablets to pardeep t low blood glucose if patient able to eat. For blood glucose (BG): Less than 50 mg/dL: Give 30 g of carbohydrate (32 g if using glucose tablets). Check BG every 15 minutes and repeat until greater than 80 mg/dL. Less than 70 mg/dL: Give 15 g of carbohydrate (16 g if using glucose tablets). Check BG every 15 minutes and repeat until greater than 80 mg/dL. Less than 70 mg/dL and patient unconscious: BG to be treated with D50W until greater than 80 mg/dL. Once BG greater than 80 mg/dL, give 30 g of carbohydrate (32 g if usin g glucose tablets) if patient awake and able to swallow. Once blood glucose greater than 80 mg/dL, check BG in one hour. Call physician if less than 70 mg/dL., 08/09/2017 7:10 AM CDT 1 drop homatropine (ISOPTO HOMATROPINE) 5 % Given ophthalmic solution 1 drop 1 drop, Both Eyes, Every 5 min, First dose on Tue08/09/17 at 0700, For 3 doses , Pre-op, Start medications in Pre-op Admissions 45 minutes prior to surgery, 1 drop Given 08/09/2017 7:05 AM CDT 1 drop Given 08/09/2017 7:00 AM CDT 08/10/2017 6:16 AM CDT 1 drop homatropine (ISOPTO HOMATROPINE) 5 % Given ophthalmic solution 1 drop 1 drop, Left Eye, 2 times daily, First dose on Tue08/10/17 at 0600, Contact lenses should be removed before installation. Do not reinsert contact lenses within 15 minutes of drops., 08/09/2017 11:48 AM CDT 1 mg morphine 4 mg/mL injection 1-5 mg Given 1-5 mg, Intravenous, Every 5 min PRN, pain unrelieved by fentanyl., Starting Tue08/09/17 at 1024, PACU (only), Give for pain unrelieved by fentanyl, and if RR is greater than 8 breaths/min. Maximum of 20 mg in 3 hours., 1 mg Given 08/09/2017 10:56 AM CDT 08/09/2017 7:10 AM CDT 1 drop ofloxacin (OCUFLOX) 0.3 % ophthalmic Given solution 1 drop 1 drop, Left Eye, Every 5 min, First dose on Tue08/09/17 at 0700, For 3 doses , Pre-op 1 drop Given 08/09/2017 7:05 AM CDT 1 drop Given 08/09/2017 7:00 AM CDT 08/10/2017 6:16 AM CDT 1 drop ofloxacin (OCUFLOX) 0.3 % ophthalmic Given solution 1 drop 1 drop, Left Eye, 4 times daily, First dose on Tue08/10/17 at 0600 08/09/2017 1:32 PM CDT 4 mg ondansetron (ZOFRAN) injection 4 mg Given 4 mg, Intravenous, Every 6 hours PRN, nausea, vomiting, Starting Tue08/09/17 a t 1200 08/10/2017 6:15 AM CDT 40 mg pantoprazole (PROTONIX) EC tablet 40 mg Given 40 mg, Oral, Every morning before breakfast, First dose on Tue08/10/17 at 0730, DO NOT CRUSH OR CHEW., 08/09/2017 7:10 AM CDT 1 drop phenylephrine (MYDFRIN) 2.5 % ophthalmic Given solution 1 drop 1 drop, Both Eyes, Every 5 min, First dose on Tue08/09/17 at 0700, For 3 doses , Pre-op, Start medications in Pre-op Admissions 45 minutes prior to surgery, 1 drop Given 08/09/2017 7:05 AM CDT 1 drop Given 08/09/2017 7:00 AM CDT 08/10/2017 6:15 AM CDT 1 drop prednisoLONE acetate (PRED FORTE) 1 % Given ophthalmic suspension 1 drop 1 drop, Left Eye, 4 times daily, First dose on Tue08/10/17 at 0600, SHAKE WELL BEFORE USING, 08/10/2017 8:52 AM CDT 75 mg pregabalin (LYRICA) capsule 75 mg Given 75 mg, Oral, 3 times daily, First dose on Tue08/09/17 at 1230 75 mg Given 08/09/2017 9:42 PM CDT 75 mg Given 08/09/2017 4:44 PM CDT 08/09/2017 12:24 PM CDT 50 mL/hr 50 mL/hr sodium chloride 0.9% infusion New Bag 50 mL/hr, Intravenous, Continuous, Starting Tue08/09/17 at 0730, For 48 hours 50 mL/hr 50 mL/hr New Bag 08/09/2017 7:09 AM CDT 08/09/2017 9:42 PM CDT 100 mg traMADol (ULTRAM) tablet 50-100 mg Given 50-100 mg, Oral, Every 8 hours PRN, moderate pain (pain score 4-6), Startin g Tue08/09/17 at 2121 08/09/2017 9:42 PM CDT 100 mg traZODone (DESYREL) tablet 100 mg Given 100 mg, Oral, Nightly, First dose on 08/09/17 at 2100 08/09/2017 7:10 AM CDT 1 drop tropicamide (MYDRIACYL) 1 % ophthalmic Given solution 1 drop 1 drop, Both Eyes, Every 5 min, First dose on Tue08/09/17 at 0700, For 3 doses , Pre-op, Start medications in Pre-op Admissions 45 minutes prior to surgery, 1 drop Given 08/09/2017 7:05 AM CDT 1 drop Given 08/09/2017 7:00 AM CDT documented in this encounter
--- OUTSIDE RECORDS SUMMARY | 2019-09-28 08:36 | XMS REPORT | Encounter Summary ---
Author Author [facility] Organization [facility] Address Unknown Phone Unavailable Care Team Providers Care Barrel Ribs Solderer Name Role Phone Dania Barksdale PCP Encounter Details Care Team Description Date Type Department Radha Shetty RN 05/26/[address] [facility] Kidney and Liver Transplant Program [address] [place] [address], [address] [place], [place] [id number] Social History Date Tobacco Use Types Packs/Day [...] Telephone Encounter - Kayla Cardozo CNA - 05/26/2018 3:20 PM ORDER DESK CALLER Called to schedule initial eval and pt informed me that he has decided to underg o Kid/Panc eval elsewhere. Nurse coordinator notified. R DESK CALLER documented in this encounter Plan of Treatment Not on filedocumented as of this encounter Visit Diagnoses Not on filedocumented in this encounter
--- OUTSIDE RECORDS SUMMARY | 2019-09-28 08:36 | XMS REPORT | Clinical Summary ---
Author Author [facility] Organization [facility] Address Unknown Phone Unavailable Care Team Providers Care International Sales Manager Name Role Phone Dania Barksdale PCP Allergies Comments Active Allergy Reactions Severity Noted Date Codeine Nausea And 08/03/2017 Vomiting Penicillins Anaphylaxis, High 08/03/2017 Shortness Of Breath Medications End Date Status Medication Sig Dispensed Refills Start Date Active docusate sodium (COLACE) Take 100 mg 0 100 MG capsule by mouth 2 (two) times a day. Active FLUoxetine (PROZAC) 20 MG Take 20 mg by 0 tablet mouth every morning. Active traZODone (DESYREL) 100 Take 100 mg 0 MG tablet by mouth nightly. Active omeprazole (PRILOSEC) 40 Take 40 mg by 0 MG capsule mouth every morning. Active bumetanide (BUMEX) 2 MG Take 2 mg by 0 tablet mouth 2 (two) times a day. Active pregabalin (LYRICA) 75 MG Take 75 mg by 0 capsule mouth 3 (three) times a day. Active insulin aspart U-100 Inject under 0 (NOVOLOG) 100 unit/mL the skin. Per injection insulin pump. Active CALCIUM ORAL Take 1-3 0 tablets by mouth as directed. Each tablet 667 mg; takes 3 tabs with each meal and one tab with snacks. Active ofloxacin (OCUFLOX) 0.3 % Instill 1 5 mL 0 ophthalmic solution drop into the 8 left eye 4 (four) times a day. Active homatropine (ISOPTO Instill 1 15 mL 0 HOMATROPINE) 5 % drop into the 8 ophthalmic solution left eye 2 (two) times a day. Active prednisoLONE acetate Instill 1 5 mL 0 08/10 (PRED FORTE) 1 % drop into the 8 ophthalmic suspension left eye 4 (four) times a day. 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 POC glucose 103 overnight. On his home insulin/diet regimen, rare hypo/hyperglycemia. Continue pump for now basal rate 0.8 75 u/hr Carb counts at meals and takes 1 uni t per 10 grams of carbs Hypoglycemic protocol in place accuchecks ac/ hs If he is not discharged today, endoc oscar consult ESRD (end stage renal disease) 08/09/2017 Last Assessment & Plan: Pt is on home hemodialysis M-F Electrolytes look fine - no indication for urgent hemodialysis Can d/c home today with plans for re sumption of home hemodialysis Nephrology following Proliferative diabetic retinopathy of both eyes 07/08 Last Assessment & Plan: s/p photocoagulation OU Vitreous hemorrhage, left 08/04/2017 Last Assessment & Plan: PDR OU with vitreal hemorrhage/traction retinal detachment/retinal tear OS. POD#1 s/p vitrectomy/membrane peeling/p hotocoag/air-fluid exchange OS and photocoag overdose It is my understanding that plan is for d/c home today Family History Relation Name Status Comments Father Mother Alive Social History Date Tobacco Use Types Packs/Day [...] Travel Start No recent travel history available. Last Filed Vital Signs Reading Time Taken [...] 08/09/2017 12:39 PM CDT Body Mass Index Plan of Treatment Health Maintenance Due Date Last Done Comments Diabetes Mellitus 1971 Hemoglobin A1C Diabetes Mellitus 1971 Ophthalmology Exam Diabetes Mellitus Urine 1971 Microalbumin Lipid Screening 1971 Medicare Annual Wellness 1971 Td # 1971 Pneumococcal Vaccine: 1977 Pediatrics (0 to 5 Years) and At-Risk Patients (6 to 64 Years) (1 of 1 - PPSV23) Diabetes Mellitus Foot 1981 Exam Influenza Vaccine (Season 03/09/2020 Ended) Implants Device Identifier Shelf Expiration Date Model / Serial / L ot Implanted Type Area Manufactur er Dialysis Catheter Right Chest Results Not on filefrom Last 3 Months Insurance Type Payer Benefit Subscriber ID Effective Phone Address Plan / Dates Group Medicare MEDICARE MEDICARE xxxxxxxxxx 2016- [place] PART A B Present [place], [place] Indemnity TRANSPLANTS-CASE RATES PB xxxxxxxxxx [phone] PRETRANSPL -Present ANT BLUE CROSS BLUE SHIELD OUT OF xxxxxxxxxxxx 8-P AREA resent [place]AD[place] 2018- [place] Advance Directives For more information, please contact: [phone] Patient Principal Automation Engineer Explanation Type Date Recorded Advance Directives and Living Will Power of Newsstand Vendor Health Care Directive Date Inactivated Comments Code Status Date Activated 08/10/2017 12:13 PM Full Code 08/09/2017 10:07 AM
--- OUTSIDE RECORDS SUMMARY | 2019-09-28 08:36 | XMS REPORT | Encounter Summary ---
Author Author [facility] Organization [facility] Address Unknown Phone Unavailable Care Team Providers Care Medical Information Specialist Name Role Phone Dania Barksdale PCP Encounter Details Care Team Description Date Type Department Radha Shetty RN 05/16/2018 Telephone [facility] Kidney and Liver Transplant Program [address] [place] [address], [address] [place], [place] [id number] Social History Date Tobacco Use Types Packs/Day [...] encounter Miscellaneous Notes * Telephone Encounter - Marilyn Early - 05/16/2018 10:28 AM CHEMISTRY INTERN Intake completed. ISTRY INTERN documented in this encounter Plan of Treatment Not on filedocumented as of this encounter Visit Diagnoses Not on filedocumented in this encounter
--- OUTSIDE RECORDS SUMMARY | 2019-09-28 08:37 | XMS REPORT | Encounter Summary ---
Author Author [facility] Organization [facility] Address Unknown Phone Unavailable Care Team Providers Care Plastic Cutter Name Role Phone Dania Barksdale PCP Reason for Visit * Auth/Cert Referred By Contact Referred To Contact Status Reason Specialty Diagnoses / Procedures Diagnoses [id number] P rocedures ND VITRECTOMY,PANRETI NAL LASER RX ND VITRECTOMY,PANRETI NAL LASER RX ND RE-REPAIR DETACH RETINA,SCLER BUCKL 25 GAUGE VITRECTOMY, ENDOLASER LEFT EYE, INDIRECT LASER OF RIGHT EYE Encounter Details Care Team Description Date Type Department Bright Jaime DO [address] [place] [address] [phone] [place] [address] [place] [address] [phone] 08/09/[facility] [address] [place], [place] [id number] Anesthesia Record Responsible Anesthesiologist Anesthesia Start Time Anesthesi a Stop Time Procedure Name Bright Jaime DO 08/09/17 0800 08/09/17 1018 25 GAUGE VITRECTOMY, MEMBRANE PEELING, ENDOLASER, AIR-FLUID EXCHANGE, SUBCONJUNCTIVAL INJECTION LEFT EYE, INDIRECT LASER OF RIGHT EYE (N/A ) Date Time Event Comment 699 AN Equip Check 2017 0728 0800 In room 0800 An Start 0800 An Start Data 0800 Pt eval immediately prior to anesthesia 0801 Preoxygenated Prior to Induction 0803 An Induction 0806 An Intubation 0807 Anesthesia Ready 0835 Procedure start - Primary Case 1001 Procedure stop - Primary case 1003 Spontaneous respirations 1003 Adequate Tidal Volume 1003 FiO2 to 100% Prior to Suctioning 1003 Suction 1013 An Extubation 1015 Oxygen per nasal cannula 1015 an stop data 1015 Transported with O2 1015 Out of Room 1018 Handoff I completed my SBAR handoff to the receiving nurse in the PACU. 1018 An Stop Meds Name Total midazolam (VERSED) injection 1 mg/mL 2 mg lidocaine 2% (PF) 100 mg propofol 10mg/mL 150 mg rocuronium 10mg/mL 60 mg fentaNYL (SUBLIMAZE) injection 50 mcg/mL 100 mcg phenylepherine 0.1mg/mL 900 mcg glycopyrrolate 0.2mg/mL 0.8 mg neostigmine (BLOXIVERZ) injection 0.5 4 mg mg/mL ondansetron 2mg/mL 4 mg sodium chloride 0.9% infusion 650 mL * Name Cell Saver Blood Intake O2 N2O Air EtSEVO EtISO EtDES EtN2O * No blood administrations on file. Removal Type Details Placement 08/10/17 09 by Katharine Gallego RN Peripheral Date: 08/09/17; Time: 0700; Size 08/09 0700 by Henry Case IV (gauge): 20 G; Orientation: Right; Vilma cheek RN Location: Wrist; Site Prep: Chlorhexidine; Local Anesthetic: Intradermal; Technique: Anatomical landmarks; Insertion Attempts: 1; Removal Date: 08/10/17; Removal Time: 0910 08/09/17 1013 by BRANDIE Parks Non-Surgic Date: 08/09/17; Time: 0806; Able to mas k 08/09/17 0806 by Darling bullard Airway ventilate prior to placement: Yes; BRANDIE Tello Placed By: Other (comment) (Dee Alvarado); Site: Oral; Device: ETT - Uncuffed; Size: 7.5; Units: Centimeters ; Method: Laryngoscope; Blade Type: MAC; Blade Size: 4; Attempts: 1; Grade View: I; Airway Observations: oropharynx clear, cords visualized, arytenoids visualized; Placement Verified By: Capnometry, Auscultation; Secured At (cm): 22; Measured From: Lips; Removal Date: 08/09/17; Removal Time: 1013 11/26/18 0836 by User Epic[employer] (Retired 08/09/17; 0901; Eye; Left; 11/26/18 0901 by Joan 05/31/18; (This LDA has been removed & completed JAIME Monroe search via automated utility); 083 6 (This LDA "wound" if has been removed & complete d via placing automated utility) new) Wound - Incision Assessment documented in this encounter Social History Date Tobacco Use Types Packs/Day [...] as of this encounter Miscellaneous Notes * Addendum Note - Darling Quick AA-C - 10/10/2017 8:33 AM CDT Addendum created 10/10/17832 by BRANDIE Parks Delete clinical note * Anesthesia Postprocedure Evaluation - Bright Jaime DO - 08/09/2017 4:49 PM CDT Anesthesia Post Evaluation Patient Evaluated in: PACU Patient Participation: complete - patient participated Level of Consciousness: awake and alert Pain Management: adequate Airway Patency: patent Respiratory Status: spontaneous ventilation Cardiovascular Status: hemodynamically stable Postoperative Hydration: euvolemic Anesthetic Complications: No Appropriate for discharge from anesthesia care, no apparent anesthesia related c omplication ANE Post Eval Vitals Most Recent Value BP 121/65 filed at 08/09/2017 1459 Pulse 65 filed at 08/09/2017 1459 Temp 36.3 C (97.3 F) filed at 08/09/2017 1459 Resp 18 filed at 08/09/2017 1459 SpO2 97 % filed at 08/09/2017 1459 * Anesthesia Preprocedure Evaluation - Bright Jaime DO - 08/09/2017 7:38 AM CDT Relevant Problems No active problems are marked relevant to this note. Anesthesia Evaluation No history of anesthetic complications History of tobacco use. NO history of alcohol use. Quit. Airway Mallampati: II TM distance: >3 FB Neck ROM: full Adequate mouth opening No prominent facial hair Dental Dental Status:upper dentures and lower dentures Pulmonary Lung sounds: normal (+) sleep apnea, ROS comment: Had tracheostomy placed due to prolonged intubation after what soun ds like DKA. Was subsequently removed. Cardiovascular - negative ROS Exercise tolerance: poor (No cardiopulmonary symptoms but has difficulty with am bulation due to arthritis. ) Heart sounds: normal (+) Neuro/Psych (+) peripheral neuropathy, Depression GI/Hepatic/Renal (+) renal disease and ESRD and dialysis, (-) GERD Endo/Other (+) diabetes mellitus (states good control now, has been very poor in past) type 1 well controlled, Abdominal - normal exam Obstetrics HEENT Musculoskeletal (+) osteoarthritis and back pain (with radiculopathy) Anesthesia Plan ASA 3 Type: general () Plan to include: ETT and IV induction ETT: oral Anesthetic plan and risks discussed with patient and spouse. Plan discussed with anesthesiologist greenhouse assistant. Post-operative analgesia: routine analgesia and antiemetics Recovery plan: PACU documented in this encounter Plan of Treatment Not on filedocumented as of this encounter Visit Diagnoses Not on filedocumented in this encounter Administered Medications Action Date Dose Rate Site Medication Order MAR Action 08/09/2017 8:02 AM CDT 100 mcg fentaNYL (SUBLIMAZE) injection Given As needed, Starting Tue08/09/17 at 0802, Anesthesia Intra-op 08/09/2017 10:03 AM CDT 0.8 mg glycopyrrolate (ROBINUL) injection Given As needed, secretions, Starting 08/09/17 at 1003, Anesthesia Intra-op 08/09/2017 8:03 AM CDT 100 mg lidocaine (pf) (XYLOCAINE-MPF) 20 mg/mL Given (2 %) injection As needed, Starting Tu08/09/17 at 0803, Anesthesia Intra-op 08/09/2017 7:59 AM CDT 2 mg midazolam (PF) (VERSED) injection Given As needed, Starting 08/09/17 at 0759, Anesthesia Intra-op 08/09/2017 10:03 AM CDT 4 mg neostigmine (BLOXIVERZ) injection Given As needed, Starting 08/09/17 at 1003, Anesthesia Intra-op 08/09/2017 10:03 AM CDT 4 mg ondansetron (ZOFRAN) injection Given As needed, nausea, vomiting, Starting 08/09/17 at 1003, Anesthesia Intra-op 08/09/2017 10:04 AM CDT 100 mcg phenylephrine HCl in 0.9% NaCl Given (NEOSYNEPHRINE) 1 mg/10 mL (100 mcg/mL) injection As needed, Starting e 08/09/17 at 0845, Anesthesia Intra-op 100 mcg Given 08/09/2017 9:54 AM CDT 100 mcg Given 08/09/2017 9:39 AM CDT 08/09/2017 8:03 AM CDT 150 mg propofol (DIPRIVAN) injection Given As needed, Starting e 08/09/17 at 0803, Anesthesia Intra-op 08/09/2017 9:01 AM CDT 10 mg rocuronium (ZEMURON) injection Given As needed, Starting 08/09/17 at 0804, Anesthesia Intra-op 50 mg Given 08/09/2017 8:04 AM CDT documented in this encounter
--- OUTSIDE RECORDS SUMMARY | 2019-09-28 08:37 | XMS REPORT | Encounter Summary ---
Author Author [facility] Organization [facility] Address Unknown Phone Unavailable Care Team Providers Care Electronic Organ Technician Name Role Phone Dania Barksdale PCP Reason for Visit * Auth/Cert Referred By Contact Referred To Contact Status Reason Specialty Diagnoses / Procedures Diagnoses E11.3593 P rocedures [place] VITRECTOMY,PANRETI NAL LASER RX [place] VITRECTOMY,PANRETI NAL LASER RX [place] RE-REPAIR DETACH RETINA,SCLER BUCKL 25 GAUGE VITRECTOMY, ENDOLASER LEFT EYE, INDIRECT LASER OF RIGHT EYE Encounter Details Care Team Description [place] [address] [place] [address] [phone] 25 GAUGE VITRECTOMY, MEMBRANE PEELING, E NDOLASER, AIR-FLUID EXCHANGE, SUBCONJUNCTIVAL INJECTION LEFT EYE, INDIRECT LASER OF RIGHT EYE 08/09/2017 [facility] [place] [address] Social History Date Tobacco Use Types Packs/Day [...] Dykes MD - 08/10/2017 8:14 AM CDT [facility] DISCHARGE NOTE Patient: Virginia Sorto : [...] Pedroza MD - 08/10/2017 8:08 AM CDT [facility] Hospitalist - Progress Note Patient Name: Virginia Sorto Account No: [id number] Date of : 1970 Date of Admission: [...] re results (as indicated), current inpatient medications, healthcare management consultant notes and s upport staff notes [...] Reports last A1c 7.3% 06/26 w Endo MANAGER SCHEDULING Conilaura Means in [place] Had some asymptomatic hypoglycemia last pm (50's). [...] following Proliferative diabetic retinopathy of both eyes (HCC) s/p photocoagulation OU From my perspective, nothing to preclude d/c home this am. See my orders for additional details regarding this patients treatment plan. Room: [address] [place] [address] Diet: Diet-Hemodialysis Code Status: Full Code VTE [...] glucagon, glucose, ondansetron, traMADol Tyrone Pedroza MD [facility] Hospitalist Please page through physician paging. . * Beto Nobles - 08/09/2017 6:42 PM CDT [facility] 08/09/17 Patient requested intensive care nurse visit to [facility] for a edward ccessful surgery. Patient is supported by his and extended family. * Casandra Mccrary, JAIME - 08/09/2017 6:22 PM CDT [...] Blood sugar eventually reached 74. * Casandra Mccrary RN - 08/09/2017 12:17 PM CDT Spoke with dialysis nurse and it was decided per physicians to wait to do dialys is until tomorrow. Stated that patient's labs looked good enough to wait. documented in this encounter H&P Notes * Destin Dykes MD - 08/08/2017 9:25 AM CDT [facility] History & Physical Date: 08/08/2017 PCP: Dania Barksdale MD HPI: a history of proliferative diabetic retinopathy OU Past Medical History: Past Medical History: Diagnosis Date Anemia Cataract in place radames Depression Diabetes mellitus type I (HCC) Dialysis patient (HCC) In home hemodialysis 5 days per week (M-F) through [facility] in [place], [place]. GERD (gastroesophageal reflux disease) Neuropathy (HCC) [...] in this encounter Consult Notes * Popeye Lopez DO - 08/09/2017 9:56 PM CDT [facility] - [facility] History & Physical Patient Name: Virginia Sorto Account No: [id number] Date of : 1970 Date of Admission: [...] Diabetes mellitus type I (HCC); Dialysis patient (HCC); GERD (gastroesophag eal reflux disease); Neuropathy (HCC); [...] with the performing provider), current inpatient medications, healthcare management consultant notes and [facility] staff notes with pertainent findings [...] c onsult ESRD (end stage renal disease) ([facility]) Pt is on home hemodialysis Will check renal panel in am to assure K is stable Vitreous hemorrhage, left (HCC) Ophthalmology following In addition, see my orders for additional details regarding this patients treatm ent plan. Diet: Diet-Hemodialysis Code Status: Full Code VTE Prevention: Appropriate VTE orders and/or documentation has been completed for this patient. Thank you for the opportunity to participate in this patients care. We will cont inue to follow. Popeye Lopez DO [facility] Hospitalist Please page through physician paging. . * Nick Cortez MD - 08/09/2017 1:00 PM CDT Associated Order(s): IP CONSULT TO NEPHROLOGY [facility] ESRD CONSULT NOTE NAME: Virginia Sorto CPI: [id number] AGE: 47 y.o. : 1970 ADMISSION DATE: 08/09/2017 PRIMARY CARE PROVIDER: Dania Barksdale MD HISTORY OF PRESENT ILLNESS: Mr. Sorto is a 47 yo AAM w/ PMH significant for DM with neuropathy and signific ant retinopathy and ESRD on Tuesday through Tuesday dialysis who presents to [facility] w / a history of [...] Diabetes mellitus type I (HCC) Dialysis patient ([facility]) In home hemodialysis 5 days per week (M-F) through [facility] in [place], [place]. GERD (gastroesophageal reflux disease) Neuropathy (HCC) [...] capsule 20 mg 20 mg Oral QAM Willia chelsea Dykes MD [START ON 08/10/2017] homatropine [...] and ESRD on dialysis who presents to [facility] w/ a history of prolife [...] capsule 20 mg 20 mg Oral QAM Maliha Dykes MD [START ON 08/10/2017] homatropine (ISOPTO [...] MD "Dr. Knight" Nephrology Staff Office no: [phone] documented in this encounter Nursing Notes * [...] last A1c 7.3% 06/26 Follows w Endo MANAGER SCHEDULING Conilaura ReyesMeans in [place] Had some asymptomatic hypoglycemia last pm (50's). [...] in good condition. Destin Dykes MD, FACS [id number] CC: * Brief Operative Note - Destin [...] MD - Primary Anesthesia Type: General Staff: Solid Waste Facility Supervisor: Joan Monroe RN; Simona Reaves RN Relief Solid Waste Facility Supervisor: Betty Canas RN Scrub Person: Madelyn Amaya Private Scrub: Stacia Diaz RN Float: Ludwig Nava Anesthesiologist: Bright Jaime DO Anesthesiologist Bottom Sprayer: BRANDIE Parks; BRANDIE Romo Findings: PDR OU, [...] left (HCC) Vitreous membranes and strands, left eye Proliferative [...] POC 128 (H) 70 - 100 mg/dL [facility] Specimen Performing Organization Address City/State/[facility] Ph one Number [address] [address] LABORATORIES * Renal Panel (08/10/2017 12:32 AM CDT) Sodium 133 133 - 147 MEQ/L [facility] Potassium 3.7 3.5 - 5.3 MEQ/L [facility] Chloride 92 (L) 96 - 112 MEQ/L [facility] Carbon Dioxide 28 20 - 32 MEQ/L [facility] Anion Gap 13 5 - 17 [facility] Calcium 9.3 8.4 - 10.5 mg/dL [facility] Glucose 103 (H) 70 - 100 mg/dL [facility] Albumin 3.5 3.5 - 5.0 g/dL [facility] Blood Urea 55 (H) 7 - 26 mg/dL [facility] Creatinine 8.2 (H) 0.6 - 1.3 mg/dL [facility] eGFR Male AA 9 (L) 60 - 200 [facility] Comment: REGIONAL Chronic Kidney Disease less LABORATORIES than 60 mL/min/1.73 sq.m Kidney failure less than 15 mL/min/1.73 sq.m eGFR Male 7 (L) 60 - 200 [facility] Non-AA Comment: REGIONAL Chronic Kidney Disease less LABORATORIES than 60 mL/min/1.73 sq.m Kidney failure less than 15 mL/min/1.73 sq.m Phosphorus 4.9 (H) 2.5 - 4.5 mg/dL [facility] Specimen Blood Performing Organization Address [facility] one Number [address] [address] LABORATORIES * Hepatitis B Surface Antibody Quant (08/09/2017 6:39 AM CDT) Pathologist [facility] Hepatitis B 24.7 mIU/mL [facility] Ab QT Comment: REGIONAL In patients who have received LABORATORIES the Hepatitis B vaccine, an antibody level of 10 mIU/mL or greater is indicative of immunity. Specimen Blood Performing Organization Address [facility] one Number [address] [address] LABORATORIES * Hepatitis B Surface Antigen (08/09/2017 6:39 AM CDT) Pathologist [facility] Hepatitis B Non-reactive Non-reactive [facility] Ag [facility] LABORATORIES Specimen Blood Performing Organization Address [facility] one Number [address] [address] LABORATORIES * Electrolytes (08/09/2017 6:39 AM CDT) Pathologist [facility] Sodium 138 133 - 147 MEQ/L [facility] Potassium 3.8 3.5 - 5.3 MEQ/L [facility] Chloride 95 (L) 96 - 112 MEQ/L [facility] Carbon Dioxide 30 20 - 32 MEQ/L [facility] Anion Gap 14 5 - 17 [facility] Specimen Blood Performing Organization Address [facility] one Number [address] [address] LABORATORIES * Electrocardiogram (ECG) (08/09/2017 6:36 AM CDT) Specimen Narrative Performed At [facility] Test Date: 2017-08-09 Pat Name: VIRGINIA SORTO Department: 01 Room: 1411 Gender: Male Dry House Attendant: GISSELL : 1970 Requested By: AMMY GILLIS Order Number: [id number] Reading MD: Isma Fernandez Measurements Intervals [place] Rate: 81 P: 47 [place]: 188 QRS: 11 QRSD: 84 T: 66 QT: 364 QTc: 423 Interpretive Statements SINUS RHYTHM PROBABLE LEFT ATRIAL ABNORMALITY BORDERLINE T ABNORMALITIES, ANT-LAT MAURO DS Electronically Signed On 08-10-2017 16:55 :16 CDT by Isma Fernandez Procedure Note Interface, External Ris In - 08/10/2017 4:55 PM CDT [facility] Test Date: 2017-08-09 Pat Name: VIRGINIA SORTO Department: 01 Room: 1411 Gender: Male Dry House Attendant: GISSELL : 1970 Requested By: AMMY GILLIS Order Number: [id number] Reading MD: Isma Fernandez Measurements Intervals [place] Rate: 81 P: 47 [place]: 188 QRS: 11 QRSD: 84 T: 66 [...] with ophthalmic manifestations, not stated as uncontrolled documented in this encounter Administered Medications Action [...] alcoholic d o not exceed 2 GM/DAY., 08/09/2017 8:57 AM CDT 15 mL balanced salt irrig (BSS) solution Given As needed, Starting Tue08/09/17 at 0857, Intra-op 08/10/2017 8:52 AM CDT 2 mg bumetanide [...] physician if less than 70 mg/dL., 08/09/2017 8:57 AM CDT 500 mL Operativ e Site dextrose 50%-epinephrine-BSS PLUS Given irrigation As needed, Starting Tue08/09/17 at 0857, Intra-op 08/10/2017 8:52 AM CDT 100 mg docusate [...] 1 drop Given 08/09/2017 7:00 AM CDT 08/09/2017 8:11 AM CDT 5 mL Operativ e Site gentamicin (GARAMYCIN) 0.3 % ophthalmic Given solution As needed, Starting Tue08/09/17 at 0811, Intra-op glucagon (GLUCAGEN) injection 1 mg 1 mg, [...] lenses within 15 minutes of drops., 08/09/2017 8:58 AM CDT 2 drops hydroxypropyl methylcellulose (GONAK) Given 2.5 % ophthalmic solution As needed, Starting Tue08/09/17 at 0858, Intra-op 08/09/2017 9:44 AM CDT 40 mg Left Eye methylPREDNISolone acetate (DEPO-MEDROL) Given 40 mg/mL injection As needed, Starting Tue08/09/17 at 0929, Intra-op 08/09/2017 11:48 AM CDT 1 mg morphine 4 mg/mL injection 1-5 mg Given 1-5 mg, Intravenous, Every 5 min PRN, pain unrelieved by fentanyl., Starting Tue08/09/17 at 1024, PACU (only), Give for pain unrelieved by fentanyl, and if RR is greater than 8 breaths/min. Maximum of 20 mg in 3 hours., 1 mg Given 08/09/2017 10:56 AM CDT 08/09/2017 8:38 AM CDT 1,000 mL Operativ e Site multiple electrolyte (pH 7.4) (NORMOSOL) Given solution As needed, Starting Tue08/09/17 at 0838, Intra-op 08/09/2017 7:10 AM CDT 1 drop ofloxacin [...] New Bag 08/09/2017 7:09 AM CDT 08/09/2017 8:39 AM CDT 1,000 mL sterile water irrigation irrigation Given solution As needed, Starting Tue08/09/17 at 0839, Intra-op 08/09/2017 9:43 AM CDT 1 application tobramycin-dexamethasone (TOBRADEX) Given ophthalmic ointment As needed, Starting Tue08/09/17 at 0810, Intra-op 08/09/2017 9:42 PM CDT 100 mg traMADol [...]
--- OUTSIDE RECORDS SUMMARY | 2019-09-28 08:38 | XMS REPORT | Encounter Summary ---
Author Author [facility] Organization [facility] Address Unknown Phone Unavailable Care Team Providers Care Compound Machine Operator Name Role Phone Dania Barksdale MD PCP Jose Huff DO Unavailable Encounter Details Care Team Description Date Type Department Fedreico Phillips Kidney transplanted; Immunosuppression (HCC) 09/24/2019 Orders Only [facility] [address] [address] Social History Date Tobacco Use Types Packs/Day Years Used Quit: 12/17/2001 Former Smoker 2 30 Smokeless Tobacco: Never Used Drinks/Week oz/Week Comments Alcohol Use quit 15 years ago Yes Sex Assigned at Date Recorded Male 08/07/2019 9:48 AM CDT Industry Job Start Date Occupation Not on file Not on file Not on file Travel End Travel History Travel Start No recent travel history available. Date Recorded COVID-19 Exposure Response 09/20/2019 9:55 AM CDT In the last month, have you been in contact with No / Unsure someone who was confirmed or suspected to have Coronavirus / COVID-19? documented as of this encounter Functional Status Date of Assessment Functional Status Response 09/20/2019 Does the patient have a hearing impairment: No 09/20/2019 Does the patient have a visual impairment: Yes 09/20/2019 Does the patient have impaired ambulation: No 09/20/2019 Does the patient have an activity of daily living No (ADL) impairment: 09/20/2019 Does the patient have an instrumental activity of No daily living (IADL) impairment: Date of Assessment Cognitive Status Response 09/20/2019 Does the patient have a cognitive impairment: No documented as of this encounter Plan of Treatment Care Team Description Date Type Specialty Berta Harrison MD [address] [place] [address] [phone] Doroteo Enamorado MD [address] [place] [address] [phone] 10/02/2019 Hospital Radiology Encounter documented as of this encounter Goals Goal Patient Associated Recent Progress Patient-Stat Aut hor Goal Type Problems ed? Recover from illness [facility] Rajani Ac RN documented as of this encounter Procedures Comments Procedure Name Priority Date/Time Associated Diag nosis URINALYSIS MICROSCOPIC Routine 09/24/2019 Kidney transplanted REFLEX TO CULTURE 8:18 AM CDT URINALYSIS DIPSTICK Routine 09/24/2019 Kidney tra nsplanted REFLEX TO CULTURE 8:18 AM CDT PROTEIN/CR RATIO,UR RAN Routine 09/24/2019 Kidney transplanted 8:18 AM CDT Immunosuppression (HCC) URIC ACID Routine 09/24/2019 Kidney transpla nted 8:18 AM CDT Immunosuppression (HCC) MAGNESIUM Routine 09/24/2019 Kidney transpla nted 8:18 AM CDT Immunosuppression (HCC) TACROLIMUS LEVEL(FK506) Routine 09/20/2019 Kidney transplanted 7:31 AM CDT Immunosuppression (HCC) documented in this encounter Results * MAGNESIUM (09/24/2019 8:18 AM CDT) Magnesium 2.0 [facility] Specimen Blood Narrative Performed At [facility] Outside Lab Verified by Federico Phillips on 09/24/2019. Performing Organization Address City/State/Zipcode Ph one Number [facility] * PROTEIN/CR RATIO,UR RAN (09/24/2019 8:18 AM CDT) Protein, Random 37 (H) 0 - 20 [facility] Creatinine, 101.4 (H) 0.0 - 50.0 [facility] Random Protein/CR 0.36 [facility] ratio Specimen Urine - Urine Narrative Performed At [facility] Outside Lab Verified by Federico Phillips on 09/24/2019. Performing Organization Address [facility] Ph [facility] Number [facility] * URINALYSIS MICROSCOPIC REFLEX TO CULTURE (09/24/2019 8:18 AM CDT) WBCs,UA Negative [facility] RBCs,UA Few [facility] Bacteria,UA Negative [facility] Squamous 0-5 [facility] Epithelial Cells Specimen Urine Narrative Performed At [facility] Outside Lab Verified by Federicomarta Ledbetterht on 09/24/2019. Performing Organization Address City/State/[facility] Ph one Number [facility] INTER[facility] * URINALYSIS DIPSTICK REFLEX TO CULTURE (09/24/2019 8:18 AM CDT) Color,UA Yellow [facility] Turbidity,UA Clear [facility] Glucose,UA 2+ (A) Negative [facility] Bilirubin,UA Negative [facility] Ketones,UA Negative [facility] Specific 1.020 [facility] Bally-Urine Blood,UA Trace-lysed (A) Negative [facility] pH,UA 5.5 [facility] Protein,UA 1+ (A) Negative [facility] Urobilinogen,UA 0.2 (A) 0.2 - 1.0 [facility] Nitrite,UA Negative [facility] Leukocytes,UA Negative [facility] Specimen Urine Narrative Performed At [facility] Outside Lab Verified by Federicomarta Phillips on 09/24/2019. Performing Organization Address [facility] Ph one Number [facility] * URIC ACID (09/24/2019 8:18 AM CDT) Uric Acid 5.3 [facility] Specimen Blood Narrative Performed At [facility] Outside Lab Verified by Federico [place] on 09/24/2019. Performing Organization Address City/[facility] Ph one Number [facility] INTER[facility] * TACROLIMUS LEVEL([id number]) (09/20/2019 7:31 AM CDT) Tacrolimus 7.0 [facility] Specimen Blood Narrative Performed At [facility] Outside Lab Verified by Federicomarta Ledbetterht on 09/24/2019. 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
--- OUTSIDE RECORDS SUMMARY | 2019-09-28 08:38 | XMS REPORT | Encounter Summary ---
Author Author [facility] Organization [facility] Address Unknown Phone Unavailable Care Team Providers Care Public Health Representative Name Role Phone Dania Barksdale MD PCP Jose Huff DO Unavailable Encounter Details Care Team Description Date Type Department 09/20/2019 Travel Social History Date Tobacco Use Types Packs/Day [...] Date Type Specialty Berta Harrison MD [address] [place] [address] Doroteo Enamorado MD [address] [place] [address] [phone] 10/02/2019 Hospital Radiology Encounter documented as of this encounter Goals Goal Patient Associated Recent Progress Patient-Stat Aut hor Goal Type Problems ed? Recover from illness [facility] Rajani Ac RN documented as of this encounter Visit Diagnoses Not on filedocumented in this encounter
--- OUTSIDE RECORDS SUMMARY | 2019-09-28 08:38 | XMS REPORT | Encounter Summary ---
Author Author [facility] Organization [facility] Address Unknown Phone Unavailable Care Team Providers Care Editor News Name Role Phone Dania Barksdale MD PCP Jose Huff DO Unavailable Encounter Details Care Team Description Date Type Department Kandy Gill MA Kidney transplanted; Immunosuppression (HCC) 09/20/2019 Orders Only [facility] [address] [address] Social History Date Tobacco Use [...] Date Type Specialty Berta Harrison MD [address] [place] [address] [phone] Doroteo Enamorado MD [address] [place] [address] [phone] 10/02/2019 Hospital Radiology Encounter documented as of this encounter Goals Goal Patient Associated Recent Progress Patient-Stat Aut hor Goal Type Problems ed? Recover from illness [facility] Rajani Ac RN documented as of this encounter Procedures Comments Procedure Name Priority Date/Time Associated Diag nosis PROTEIN/CR RATIO,UR RAN Routine 09/20/2019 Kidney transplanted 7:31 AM CDT Immunosuppression (HCC) CBC AND DIFF Routine 09/20/2019 Kidney transpla nted 7:31 AM CDT Immunosuppression (HCC) URIC ACID Routine 09/20/2019 Kidney transpla nted 7:31 AM CDT Immunosuppression (HCC) MAGNESIUM Routine 09/20/2019 Kidney transpla nted 7:31 AM CDT Immunosuppression (HCC) COMPREHENSIVE METABOLIC Routine 09/20/2019 Kidney transplanted PANEL 7:31 AM CDT Immunosuppression ( HCC) TACROLIMUS LEVEL([id number]) Routine 09/17/2019 Kidney transplanted 8:16 AM CDT Immunosuppression (HCC) documented in this encounter Results * MAGNESIUM (09/20/2019 7:31 AM CDT) Magnesium 1.9 [facility] Specimen Blood Narrative Performed At [facility] Outside Lab Verified by Kandy crowe 09/20/2019. Performing Organization Address City/[facility] Ph one Number LABDE INTERFACE * URIC ACID (09/20/2019 7:31 AM CDT) Uric Acid 5.7 [facility] Specimen Blood Narrative Performed At [facility] INTER[facility] Outside Lab Verified by Kandy crowe 09/20/2019. Performing Organization Address City/[facility] Ph one Number LAB[facility] INTERFACE * COMPREHENSIVE METABOLIC PANEL (09/20/2019 7:31 AM CDT) Sodium 142 mmol/L [facility] Potassium 4.6 mmol/L [facility] Chloride 116 (H) 95 - 114 [facility] CO2 18 (L) 22 - 33 [facility] Blood Urea 24 [facility] Nitrogen Creatinine 2.31 (H) 0.50 - 1.50 mg/dL [facility] RAMON Calcium 9.0 [facility] Alk Phosphatase 109 [facility] AST (SGOT) 22 U/L [facility] ALT (SGPT) 18 U/L [facility] Total Bilirubin 0.3 mg/dl [facility] E Total Protein 6.2 g/dL [facility] Albumin 4.3 g/dL [facility] eGFR Non 30 (L) >59 [facility] Specimen Blood Narrative Performed At [facility] INTER[facility] Outside Lab Verified by Kandy crowe 09/20/2019. Performing Organization Address [facility] Number [facility] * CBC AND DIFF (09/20/2019 7:31 AM CDT) White Blood 5.32 [facility] Cells RBC 3.81 (L) 4.20 - 5.40 [facility] Hemoglobin 12.0 (L) 14.0 - 17.0 [facility] Hematocrit 36.6 (L) 42.0 - 52.0 [facility] MCV 96.1 [facility] MCH 31.5 (H) 27.0 - 31.2 [facility] MCHC 32.8 [facility] Platelet Count 139 (L) 150 - 400 [facility] RDW 13.4 [facility] Absolute 4.26 [facility] Neutrophil Count Neutrophils 80.1 (H) 37.0 - 80.0 [facility] Absolute Lymph 0.38 (L) 0.60 - 3.40 [facility] Count Lymphocytes 7.1 (L) 10.0 - 50.0 [facility] Absolute 0.5 [facility] Monocyte Count Monocytes 9.8 [facility] Absolute 0.1 [facility] Eosinophil Count Eosinophil 2.6 [facility] Absolute 0.0 [facility] Basophil Count Basophil 0.40 [facility] MPV 11.2 (H) 7.4 - 10.0 [facility] Specimen Blood Narrative Performed At [facility] INTER[facility] Outside Lab Verified by Kandy crowe 09/20/2019. Performing Organization Address [facility] Ph one Number LABDE INTERFACE * PROTEIN/CR RATIO,UR RAN (09/20/2019 7:31 AM CDT) Protein, Random 82 (H) 0 - 20 [facility] INTER[facility] E Creatinine, 155.2 (H) 0.0 - 50.0 [facility] Random Protein/CR 0.53 [facility] ratio Specimen Urine - Urine Narrative Performed At [facility] INTER[facility] Outside Lab Verified by Kandy crowe 09/20/2019. Performing Organization Address [facility] Ph one Number LABDE INTERFACE * TACROLIMUS LEVEL([id number]) (09/17/2019 8:16 AM CDT) Tacrolimus 8.4 [facility] Specimen Blood Narrative Performed At [facility] INTER[facility] Outside Lab Verified by Kandy crowe 09/20/2019. 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
--- OUTSIDE RECORDS SUMMARY | 2019-09-28 08:38 | XMS REPORT | Encounter Summary ---
Author Author [facility] Organization [facility] Address Unknown Phone Unavailable Care Team Providers Care Roll Forming Machine Set Up Mechanic Name Role Phone Dania Barksdale MD PCP Jose Huff DO Unavailable Encounter Details Care Team Description Date Type Department Abi Lala RN 09/25/2019 Telephone [facility] Radiology [address] [address] Social History Date Tobacco Use Types Packs/Day [...] impairment: No documented as of this encounter Miscellaneous Notes * Telephone Encounter - Abi Lala RN - 09/25/2019 1:26 PM CDT I called and spoke briefly with Stef Pace : 72 who was working and un able to write anything down. I reminded Stef that he was scheduled for a Renal Biopsy at on 10/02/2019. I informed him that Ela (nurse) from PCP office [place] called me today and shared that she is unable to forward the COVID nasal swab lab results to as requested. I informed the patient that he will need to con tact via [facility] directly and possibly sign a release allowing the COVI D nasal swab lab results to be forwarded to . I reminded him that is requi ring these test results prior to the biopsy scheduled on 10/01. He verbalized un derstanding. I confirmed that he had my phone number to call me back with any q uestions or concerns. documented in this encounter Plan of Treatment Care Team Description Date Type Specialty Berta Harrison MD 4000 [place] [address] Doroteo Enamorado MD 4000 [place] [address] [phone] 10/02/2019 Hospital Radiology Encounter documented as of this encounter Goals Goal Patient Associated Recent Progress Patient-Stat Aut hor Goal Type Problems ed? Recover from illness [facility] Rajani Ac RN documented as of this encounter Visit Diagnoses Not on filedocumented in this encounter
--- OUTSIDE RECORDS SUMMARY | 2019-09-28 08:38 | XMS REPORT | Encounter Summary ---
Author Author [facility] Organization [facility] Address Unknown Phone Unavailable Care Team Providers Care Lamp Shades Supervisor Name Role Phone Dania Barksdale MD PCP Jose Huff DO Unavailable Reason for Visit * Reason Comments Results Prograf - no change Encounter Details Care Team Description Date Type Department Lucia Trinidad, RN Results (Prograf - no change ) 09/27/2019 Telephone The [address] [address] Social History Date Tobacco Use Types Packs/Day [...] encounter Miscellaneous Notes * Telephone Encounter - Lucia Trinidad, RN - 09/27/2019 3:17 PM CDT Reviewed pt's labs from 09/23 and 09/26. Creat increasing to 2.3 and 2.4. Tac leve l therapeutic at 8.4 on 09/23. Tac level from 09/26 pending. Pt scheduled for naif l biopsy on Tuesday, 10/01. Pt to have cataract surgery tomorrow, 09/27, and , 10/04. Pt will repeat labs prior to biopsy. documented in this encounter Plan of Treatment Care Team Description Date Type Specialty Berta Harrison MD [address] [place] [address] Doroteo Enamorado MD 4000 [place] [address] 10/02/2019 Hospital Radiology Encounter documented as of this encounter Goals Goal Patient Associated Recent Progress Patient-Stat Aut hor Goal Type Problems ed? Recover from illness [facility] Rajani Ac, JAIME documented as of this encounter Visit Diagnoses Not on filedocumented in this encounter
--- OUTSIDE RECORDS SUMMARY | 2019-09-28 08:38 | XMS REPORT | Encounter Summary ---
Author Author [facility] Organization [facility] Address Unknown Phone Unavailable Care Team Providers Care Linen Worker Name Role Phone Dania Barksdale MD PCP Jose Huff DO Unavailable Encounter Details Care Team Description Date Type Department Lucia Trinidad RN Kidney transplanted (Primary Dx); Immunosuppression (HCC) 09/24/2019 Orders Only The [facility] [address] [address] Social History Date Tobacco Use [...] Date Type Specialty Berta Harrison MD 4000 [place] [address] [phone] Doroteo Enamorado MD [address] [place] [address] [phone] 10/02/2019 Hospital Radiology Encounter Order Schedule Name Type Priority Associated Diag noses 25 Occurrences starting 09/24/2019 until 03/26/2020, 1 completed CBC AND DIFF Lab Routine Kidney transpla nted 25 Occurrences starting 09/24/2019 until 03/26/2020, 1 completed COMPREHENSIVE METABOLIC Lab Routine Kidney transplanted PANEL 25 Occurrences starting 09/24/2019 until 03/26/2020 MAGNESIUM Lab Routine Kidney transpla nted 25 Occurrences starting 09/24/2019 until 03/26/2020, 1 completed PHOSPHORUS Lab Routine Kidney transpla nted 25 Occurrences starting 09/24/2019 until 03/26/2020 PROTEIN/CR RATIO,UR RAN Lab Routine Kidney transplanted 25 Occurrences starting 09/24/2019 until 03/26/2020 URIC ACID Lab Routine Kidney transpla nted 25 Occurrences starting 09/24/2019 until 03/26/2020 URINALYSIS DIPSTICK Lab Routine Kidney tra nsplanted REFLEX TO CULTURE 25 Occurrences starting 09/24/2019 until 03/26/2020 URINALYSIS MICROSCOPIC Lab Routine Kidney transplanted REFLEX TO CULTURE 25 Occurrences starting 09/24/2019 until 03/26/2020 BK VIRUS DNA, QUANT Lab Routine Kidney tra nsplanted PLASMA 25 Occurrences starting 09/24/2019 until 03/26/2020 CMV QUANT PCR-BLOOD Lab Routine Kidney tra nsplanted 25 Occurrences starting 09/24/2019 until 03/26/2020 TACROLIMUS LEVEL([id number]) Lab Routine Kidney transplanted Immunosuppression (HCC) documented as of this encounter Goals Goal Patient Associated Recent Progress Patient-Stat Aut hor Goal Type Problems ed? Recover from illness [facility] Rajani Ac RN documented as of this encounter Results * PHOSPHORUS (09/24/2019 8:18 AM CDT) Phosphorus 2.9 [facility] INTERFACE Specimen Blood Narrative Performed At LAB[facility] INTERFACE Outside Lab Verified by Federico Phillips on 09/24/2019. Performing Organization Address City/State/Zipcode Ph one Number LABDE INTERFACE * COMPREHENSIVE METABOLIC PANEL (09/24/2019 8:18 AM CDT) Sodium 140 mmol/L [facility] Potassium 4.3 mmol/L [facility] Chloride 113 mmol/L [facility] CO2 19 (L) 22 - 33 [facility] Anion Gap 12 [facility] Glucose 81 [facility] Blood Urea 37 (H) 5 - 25 [facility] Nitrogen Creatinine 2.37 (H) 0.50 - 1.50 mg/dl LABDE INTERF RAMON Calcium 9.5 [facility] INTER[facility] Alk Phosphatase 107 [facility] AST (SGOT) 22 [facility] ALT (SGPT) 22 [facility] Total Bilirubin 0.3 mg/dl [facility] INTERFAC E Total Protein 6.3 [facility] INTER[facility] Albumin 4.6 [facility] INTER[facility] eGFR Non 29 (L) >59 [facility] INTER[facility] Specimen Blood Narrative Performed At LAB[facility] INTERFACE Outside Lab Verified by Federico Phillips on 09/24/2019. Performing Organization Address City/[facility] Ph one Number LABDE INTERFACE * CBC AND DIFF (09/24/2019 8:18 AM CDT) White Blood 5.00 [facility] INTERFACE Cells RBC 3.90 (L) 4.20 - 5.40 [facility] Hemoglobin 12.1 (L) 14.0 - 17.0 [facility] Hematocrit 37.1 (L) 42.0 - 52.0 [facility] INTERFACE MCV 95.1 [facility] INTERFACE MCH 31.0 [facility] INTERFACE MCHC 32.6 [facility] INTERFACE Platelet Count 142 (L) 150 - 400 [facility] RDW 13.1 [facility] INTERFACE Absolute 4.07 [facility] INTERFACE Neutrophil Count Neutrophils 81.4 (H) 37.0 - 80.0 [facility] INTERFACE Absolute Lymph 0.30 (L) 0.60 - 3.40 [facility] INTERFACE Count Lymphocytes 6.0 (L) 10.0 - 50.0 [facility] INTERFACE Absolute 0.5 [facility] INTERFACE Monocyte Count Monocytes 10.2 [facility] INTERFACE Absolute 0.1 [facility] INTERFACE Eosinophil Count Eosinophil 2.0 [facility] INTERFACE Absolute 0.0 [facility] INTERFACE Basophil Count Basophil 0.40 [facility] INTERFACE MPV 11.4 (H) 7.4 - 10.0 [facility] INTERFACE Specimen Blood Narrative Performed At LABDE INTERFACE Outside Lab Verified by Federico Phillips on 09/24/2019. 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
--- OUTSIDE RECORDS SUMMARY | 2019-09-28 08:38 | XMS REPORT | Encounter Summary ---
Author Author [facility] Organization [facility] Address Unknown Phone Unavailable Care Team Providers Care Sales Enablement Lead Name Role Phone Dania Barksdale MD PCP Jose Huff DO Unavailable Encounter Details Care Team Description Date Type Department Federico Phillips Kidney transplanted 09/25/2019 Orders Only The [facility] [address] [address] Social History Date Tobacco Use [...] Date Type Specialty Berta Harrison MD 4000 [place] [address] Doroteo Enamorado MD 4000 [place] [address] [phone] 10/02/2019 Hospital Radiology Encounter documented as of this encounter Goals Goal Patient Associated Recent Progress Patient-Stat Aut hor Goal Type Problems ed? Recover from illness [facility] Rajani Ac RN documented as of this encounter Procedures Comments Procedure Name Priority Date/Time Associated Diag nosis CBC AND DIFF Routine 09/24/2019 Kidney transpla nted 8:18 AM CDT PHOSPHORUS Routine 09/24/2019 Kidney transpla nted 8:18 AM CDT COMPREHENSIVE METABOLIC Routine 09/24/2019 Kidney transplanted PANEL 8:18 AM CDT documented in this encounter Results * PHOSPHORUS (09/24/2019 8:18 AM CDT) Phosphorus 2.9 [facility] INTERFACE Specimen Blood Narrative Performed At LABDE INTERFACE Outside Lab Verified by Federico Phillips on 09/24/2019. Performing Organization Address [facility] Ph one Number LABDE INTERFACE * COMPREHENSIVE [...] Federico Phillips on 09/24/2019. Performing Organization Address City/State[facility] Ph one Number LAB[facility] * CBC [...] Federico Phillips on 09/24/2019. Performing Organization Address [facility] Number [facility] 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 documented in this encounter
--- OUTSIDE RECORDS SUMMARY | 2019-09-28 08:38 | XMS REPORT | Encounter Summary ---
Author Author [facility] Organization [facility] Address Unknown Phone Unavailable Care Team Providers Care Insulation Cupola Charger Name Role Phone Dania Barksdale MD PCP Jose Huff DO Unavailable Encounter Details Care Team Description Date Type Department Federico Phillips Kidney transplanted 09/21/2019 Orders Only The [facility] [address] [address] Social History Date Tobacco Use [...] Date Type Specialty Berta Harrison MD 4000 [place] [address] Doroteo Enamorado MD 4000 [place] [address] [phone] 10/02/2019 Hospital Radiology Encounter documented as of this encounter Goals Goal Patient Associated Recent Progress Patient-Stat Aut hor Goal Type Problems ed? Recover from illness [facility] Rajani Ac RN documented as of this encounter Procedures Comments Procedure Name Priority Date/Time Associated Diag nosis URINALYSIS MICROSCOPIC Routine 09/20/2019 Kidney transplanted REFLEX TO CULTURE 7:31 AM CDT URINALYSIS DIPSTICK Routine 09/20/2019 Kidney tra nsplanted REFLEX TO CULTURE 7:31 AM CDT documented in this encounter Results * URINALYSIS DIPSTICK REFLEX TO CULTURE (09/20/2019 7:31 AM CDT) Color,UA Yellow [facility] INTER[facility] Turbidity,UA Clear [facility] INTERFACE Glucose,UA Negative [facility] INTER[facility] Bilirubin,UA Negative [facility] INTERFACE Ketones,UA Negative LAB[facility] INTERFACE Specific 1.025 LABDE INTERFACE [place]-Urine Blood,UA 1+ (A) Negative LABDE INTERFACE pH,UA 5.5 LABDE INTERFACE Protein,UA 2+ (A) Negative LAB[facility] INTERFACE Urobilinogen,UA 0.2 (A) 0.2 - 1.0 LABDE INTERFAC E Nitrite,UA Negative LABDE INTERFACE Leukocytes,UA Negative LAB[facility] INTERFACE Specimen Urine Narrative Performed At LABDE INTERFACE Outside Lab Verified by Kandy crowe 09/20/2019. Performing Organization Address City/[facility] Ph one Number LABDE INTERFACE * URINALYSIS MICROSCOPIC REFLEX TO CULTURE (09/20/2019 7:31 AM CDT) WBCs,UA 0-2 (A) LABDE INTERFACE RBCs,UA 5-10 (A) LABDE INTERFACE Bacteria,UA Negative LABDE INTERFACE Squamous None [facility] INTERFACE Epithelial Cells Specimen Urine Narrative Performed At LABDE INTERFACE Outside Lab Verified by Kandy crowe 09/20/2019. Performing Organization Address City/[facility] Ph one Number LABDE INTERFACE 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 documented in this encounter
--- OUTSIDE RECORDS SUMMARY | 2019-09-28 08:38 | XMS REPORT | Encounter Summary ---
Author Author [facility] Organization [facility] Address Unknown Phone Unavailable Care Team Providers Care Monument Letterer Name Role Phone Dania Barksdale MD PCP Jose Huff DO Unavailable Encounter Details Care Team Description Date Type Department Abi Lala RN 09/24/2019 Telephone The [facility] Radiology [address] [address] Social History Date Tobacco Use Types Packs/Day [...] Telephone Encounter - Abi Lala RN - 09/24/2019 4:04 PM CDT IR Scheduling spoke with Ela (nurse) w/Dr. Dania Barksdale's (PCP) office re: Makayla Pace : 1970. I contacted Ela to inform her that [facility] had a referr al for a Renal Biopsy for this patient. [facility] requires a COVID nasal swap test for this procedure. And, I just spoke by phone from the patient who informed me th at he had a COVID nasal swab test performed today at 2:00 at via [facility] in [place], [place]. The patient informed me that the COVID test was ordered by his eye doctor for Cataracts surgery scheduled for this Tuesday (09/27). He was told that the test results would be available in 48 hours. I shared this inform ation with Ela (nurse). Ela offered to contact via [facility] for COV ID results when available and fax the lab results to [facility] to my attention. I prov ided my phone and fax numbers. I informed Ela that this information was neede d prior to Renal Biopsy that is scheduled for 10/01. She verbalized understandin g and denied any questions. KARRI ShultzN, RN, CMSRN documented in this encounter Plan of Treatment Care Team Description Date Type Specialty Berta Harrison MD [address] [place] [address] [phone] Doroteo Enamorado MD 4000 [place] [address] [phone] 10/02/2019 Hospital Radiology Encounter documented as of this encounter Goals Goal Patient Associated Recent Progress Patient-Stat Aut hor Goal Type Problems ed? Recover from illness [facility] Rajani Ac, JAIME documented as of this encounter Visit Diagnoses Not on filedocumented in this encounter
--- OUTSIDE RECORDS SUMMARY | 2019-09-28 08:38 | XMS REPORT | Encounter Summary ---
Author Author [facility] Organization [facility] Address Unknown Phone Unavailable Care Team Providers Care Fashion Patternmaker Name Role Phone Dania Barksdale MD PCP Jose Huff DO Unavailable Reason for Referral * Radiology Services (Routine) Referred By Contact Referred To Contact Status Reason Specialty Diagnoses / Procedures Berta Harrison MD [address] [place] [address] [facility] [address] [address] No Auth Needed Radiology Diagnoses Kidney transplanted P rocedures IR RENAL BIOPSY WI RENAL BIOPSY PRQ TROCAR/NEEDLE WI US GUIDANCE NEEDLE PLACEMENT IMG S&I WI CT GUIDANCE NEEDLE PLACEMENT Encounter Details Care Team Description Date Type Department Lucia Trinidad, JAIME Kidney transplanted (Primary Dx) 09/21/2019 Orders Only The [facility] [address] [address] Social History Date Tobacco Use Types Packs/Day [...] Date Type Specialty Berta Harrison MD 4000 [place] [address] Doroteo Enamorado MD 4000 [place] [address] 10/02/2019 [facility] Radiology Encounter Order Schedule Name Type Priority Associated Diag noses Expected: 09/21/2019 (Approximate), Expi res: 09/20/2020 IR RENAL BIOPSY Imaging Routine Kidney transpl anted documented as of this encounter Goals Goal Patient Associated Recent Progress Patient-Stat Aut hor Goal Type Problems ed? Recover from illness Hospital Rajani Ac RN documented as of this encounter Visit Diagnoses Diagnosis Kidney transplanted Kidney replaced by transplant documented in this encounter
--- OUTSIDE RECORDS SUMMARY | 2019-09-28 08:38 | XMS REPORT | Encounter Summary ---
Author Author [facility] Organization [facility] Address Unknown Phone Unavailable Care Team Providers Care Account Processor Name Role Phone Dania Barksdale MD PCP Jose Huff DO Unavailable Encounter Details Care Team Description Date Type Department Abi Lala RN 09/25/2019 Telephone The [facility] Radiology [address] [address] Social History Date Tobacco Use Types Packs/Day [...] Encounter - Abi Lala RN - 09/25/2019 1:23 PM CDT I received an incoming voicemail today from Ela (nurse) w/Dr. Dania Barksdale (P CP) office re: Stef Pace : 1970. Ela informed me that she is unabl e to forward the COVID nasal swab test results performed at via [place] to as requested. She thinks that the patient will need to sign a release to forward COVID swab results to . Plan: I will contact the patient to discuss further. documented in this encounter Plan of Treatment Care Team Description Date Type Specialty Berta Harrison MD 4000 [place] [address] Doroteo Enamorado MD 4000 [place] [address] 10/02/2019 Hospital Radiology Encounter documented as of this encounter Goals Goal Patient Associated Recent Progress Patient-Stat Aut hor Goal Type Problems ed? Recover from illness [facility] Rajani Ac, JAIME documented as of this encounter Visit Diagnoses Not on filedocumented in this encounter
--- OUTSIDE RECORDS SUMMARY | 2019-09-28 08:38 | XMS REPORT | Encounter Summary ---
Author Author [facility] Organization [facility] Address Unknown Phone Unavailable Care Team Providers Care Commercial Relief Driver Name Role Phone Dania Barksdale MD PCP Jose Huff DO Unavailable Reason for Visit * Reason Comments Results Encounter Details Care Team Description Date Type Department Lucia Trinidad RN Results 09/21/2019 Telephone The [address] [address] Social History Date Tobacco Use Types Packs/Day [...] Miscellaneous Notes * Telephone Encounter - Lucia Trinidad RN - 09/21/2019 2:09 PM CDT Reviewed pt's labs from 09/19. Creat up at 2.31. Tac level pending. Discussed wit h Dr. Idania Harrison and will plan for renal biopsy for the coming week. Orders placed . INR 1.0 on 09/16. Called and discussed with pt who verbalized understanding. documented in this encounter Plan of Treatment Care Team Description Date Type Specialty Berta Harrison MD 4000 [place] [address] Doroteo Enamorado MD 4000 [place] [address] 10/02/2019 Hospital Radiology Encounter documented as of this encounter Goals Goal Patient Associated Recent Progress Patient-Stat Aut hor Goal Type Problems ed? Recover from illness Hospital Rajani Ac RN documented as of this encounter Visit Diagnoses Not on filedocumented in this encounter
--- OUTSIDE RECORDS SUMMARY | 2019-09-28 08:38 | XMS REPORT | Clinical Summary ---
Author Author [facility] Organization [facility] Address Unknown Phone Unavailable Care Team Providers Care Night Warehouse Selector Name Role Phone Dania Barksdale MD PCP Jose Huff DO Unavailable Source Comments Some departments are not documenting in the electronic medical record. If you d o not see the information that you expected, contact Release of Information in [facility] [employer] Information Management department at [phone] for further assistan ce in locating additional records.[facility] Allergies Comments Active Allergy Reactions Severity Noted Date Codeine VOMITING Low 12/17/2016 Penicillins ANAPHYLAXIS High 12/17/2016 Medications End Date Status Medication Sig Dispensed Refills Start Date Active omeprazole DR(+) Take 40 mg by 0 (PRILOSEC) 40 mg capsule mouth daily before breakfast. Active pregabalin (LYRICA) 75 mg Take 75 mg by 0 capsule mouth three times daily. Active tamsulosin (FLOMAX) 0.4 Take 0.4 mg 0 mg capsule by mouth daily. Do not crush, chew or open capsules. Take 30 minutes following the same meal each day. Active fluoxetine (PROZAC) 40 mg Take 40 mg by 0 capsule mouth daily. Active traZODone (DESYREL) 100 Take 100 mg 0 mg tablet by mouth at bedtime daily. Active insulin pump -ASPART- by SubQ Pump 0 Patients Own route Three times daily with meals and as needed. Active liraglutide (VICTOZA) 0.6 Inject 0.6 mg 0 mg/0.1 mL (18 mg/3 mL) under the injection pen skin daily. Active acetaminophen (TYLENOL) Take two 100 tablet 1 325 mg tablet tablets by 0 mouth every 4 hours as needed. Active Miscellaneous Medical Use to 1 each 0 05/10 Supply misc monitor blood 0 pressure as directed. Active traMADol (ULTRAM) 50 mg Take one 30 tablet 0 tablet tablet by 0 mouth every 6 hours as needed for Pain. Active promethazine (PHENERGAN) Take one 30 tablet 0 0 25 mg tablet tablet by 0 mouth every 6 hours as needed for Nausea or Vomiting. Active ferrous sulfate (FEOSOL) Take one 180 tablet 3 0 325 mg (65 mg iron) tablet by 0 tablet mouth twice daily. Take on an empty stomach at least 1 hour before or 2 hours after food. Active VENTOLIN HFA 90 Inhale two 54 g 0 mcg/actuation aerosol puffs by 0 inhaler mouth into the lungs every 6 hours as needed for Wheezing or Shortness of Breath. Shake well before use. Active mycophenolate DR Take two 120 tablet 11 (MYFORTIC) 180 mg TbEC tablets by 0 tablet mouth twice daily. Active tacrolimus (PROGRAF) 1 mg Take three 180 capsule 11 capsule capsules by 0 mouth twice daily. Active aspirin EC 81 mg tablet Take one 90 tablet 1 tablet by 0 mouth daily. Take with food. Active ergocalciferol (VITAMIN Take one 12 capsule 0 D-2) 1,250 mcg (50,000 capsule by 0 unit) capsule mouth every 7 days. Active predniSONE (DELTASONE) 5 Take one 30 tablet 11 0 mg tablet tablet by 0 mouth daily with breakfast. Active NIFEdipine XL Take one 90 tablet 3 (PROCARDIA-XL) 30 mg tablet by 0 tablet mouth daily. Active trimethoprim/sulfamethoxa Take one 90 tablet 3 zole (BACTRIM SS) 80/400 tablet by 0 mg tablet mouth daily. Active valGANciclovir (VALCYTE) Take one 90 tablet 3 0 450 mg tablet tablet by 0 mouth daily with breakfast. 09/20/2019 Discontinued (Dose adjustmen t) valGANciclovir (VALCYTE) Take one 60 tablet 5 0 450 mg tablet tablet by 0 mouth twice weekly. Mon/thurs 09/20/2019 Discontinued (Therapy comple smitha) benzonatate (TESSALON Take one 20 capsule 1 07/07 PERLES) 100 mg capsule capsule by 0 mouth every 8 hours as needed for Cough. 09/20/2019 Discontinued (Dose adjustmen t) trimethoprim/sulfamethoxa Take one 30 tablet 11 zole (BACTRIM) 80/400 mg tablet by 0 tablet mouth three times weekly on Tuesday, Tuesday, Tuesday. Active Problems Problem Noted Date Cough 07/24/2019 H1N1 influenza 07/24/2019 Rhinovirus 07/24/2019 Aftercare following organ transplant 06/05/2019 Vitamin D deficiency 05/31/2019 Hemodialysis patient 05/28/2019 Uncontrolled type 1 diabetes mellitus with hypoglycem ia 05/28/2019 Kidney replaced by transplant 05/28/2019 Obesity 05/28/2019 Immunosuppression 05/28/2019 Depression 05/28/2019 Seizure disorder 05/28/2019 GREGORY (obstructive sleep apnea) 05/28/2019 ESRD (end stage renal disease) 12/22/2016 Encounters Care Team Description Date Type Specialty Lucia Trinidad RN Results (Prograf - no change ) 09/27/2019 Telephone Transplant Surgery bAi Lala RN 09/25/2019 Telephone Radiology Abi Lala RN 09/25/2019 Telephone Radiology Federico Phillips Kidney transplanted 09/25/2019 Orders Only Transplant Surgery Abi Lala RN 09/24/2019 Telephone Radiology Lucia Trinidad RN Kidney transplanted (Primary Dx); Immunosuppression (HCC) 09/24/2019 Orders Only Transplant Surgery Jacqueline, Federico Kidney transplanted; Immunosuppression (HCC) 09/24/2019 Orders Only Transplant Surgery Lucia Trinidad RN Results 09/21/2019 Telephone Transplant Surgery Lucia Trinidad RN Kidney transplanted (Primary Dx) 09/21/2019 Orders Only Transplant Surgery Jacqueline, Federico Kidney transplanted 09/21/2019 Orders Only Transplant Surgery Berta Harrison MD Kidney transplanted (Primary Dx) 09/20/2019 Office Visit Transplant Surgery Telehealth 09/20/2019 Travel Kandy Gill MA Kidney transplanted; Immunosuppression (HCC) 09/20/2019 Orders Only Transplant Surgery Cristian Malone MA 09/19/2019 Telephone Hepatology Kandy Gill MA Vitamin D deficiency; Kidney transplanted; Immunosuppression (HCC); Iron deficiency; Hyperglycemia 09/17/2019 Orders Only Transplant Surgery Kostas Courtney RN Critical Result 09/17/2019 Telephone Transplant Surgery Jacqueline, Federico Kidney transplanted; Immunosuppression (HCC) 09/17/2019 Orders Only Transplant Surgery Lodi, Federico Kidney transplanted; Immunosuppression (HCC) 09/14/2019 Orders Only Transplant Surgery Kandy Gill MA Kidney transplanted; Immunosuppression (HCC) 09/14/2019 Orders Only Transplant Surgery Lucia Trinidad RN Results (Prograf - no change) 09/13/2019 Telephone Transplant Surgery Kandy Gill MA Kidney transplanted; Immunosuppression (HCC) 09/10/2019 Orders Only Transplant Surgery Lucia Trinidad RN Results (Prograf - no change) 09/07/2019 Telephone Transplant Surgery Kandy Gill, ANG Kidney transplanted; Immunosuppression (HCC) 09/07/2019 Orders Only Transplant Surgery Kandy Gill, ANG Kidney transplanted; Immunosuppression (HCC) 09/06/2019 Orders Only Transplant Surgery Jacqueline, Federico Kidney transplanted; Immunosuppression ([facility]) 09/04/2019 Orders Only Transplant Surgery Brea Hernández Financial/Insurance Questions 09/03/2019 Telephone Transplant Surgery Kandy Gill MA Kidney transplanted; Immunosuppression ([facility]) 09/03/2019 Orders Only Transplant Surgery Lucia Trinidad RN 08/31/2019 Documentation Transplant Surgery Brea Hernández 08/31/2019 Documentation Transplant Surgery Kandy Gill MA Kidney transplanted; Immunosuppression ([facility]) 08/31/2019 Orders Only Transplant Surgery Lodi, Federico Kidney transplanted; Immunosuppression ([facility]) 08/31/2019 Orders Only Transplant Surgery Brea Hernández 08/30/2019 Documentation Transplant Surgery Lucia Trinidad RN Results (Prograf - no change) 08/29/2019 Telephone Transplant Surgery Brea Hernández 08/27/2019 Documentation Transplant Surgery Lucia Trinidad RN Hyperglycemia (Primary Dx); Iron deficiency; Hyperlipidemia, unspecified hyperlipidemia type; Vitamin D deficiency 08/24/2019 Orders Only Transplant Surgery Brea Hernández Financial/Insurance Questions 08/23/2019 Telephone Transplant Surgery Kaylan Mcintyre RN Medication Question 08/22/2019 Telephone Transplant Surgery Brea Hernández 08/22/2019 Documentation Transplant Surgery Brea Hernández 08/21/2019 Documentation Transplant Surgery Berta Harrison MD 08/20/2019 Hospital Lab Encounter Berta Harrison MD Immunosuppression ([facility]) (Primary Dx); Aftercare following organ transplant 08/20/2019 Office Visit Transplant Surgery EdgarLionelBrea Financial/Insurance Questions 08/20/2019 Telephone Transplant Surgery Lodi, Federico Kidney transplanted; Immunosuppression (HCC) 08/20/2019 Orders Only Transplant Surgery 08/20/2019 Travel Gill, Kandy, MA Kidney transplanted; Immunosuppression (HCC) 08/17/2019 Orders Only Transplant Surgery Self, Marilyn Kidney transplanted; Immunosuppression (HCC) 08/16/2019 Orders Only Transplant Surgery Lucia Trinidad RN Results (Prograf 4/4 to 33) 08/15/2019 Telephone Transplant Surgery Lodi, Federico Kidney transplanted; Immunosuppression (HCC) 08/15/2019 Orders Only Transplant Surgery Gill, Kandy, MA Kidney transplanted; Immunosuppression (HCC) 08/13/2019 Orders Only Transplant Surgery Lucia Trinidad RN Results (Prograf - no change) 08/09/2019 Telephone Transplant Surgery Jacqueline, Federico Kidney transplanted; Immunosuppression (HCC) 08/09/2019 Orders Only Transplant Surgery 08/09/2019 Travel Gill, Kandy, MA Kidney transplanted; Immunosuppression (HCC) 08/09/2019 Orders Only Transplant Surgery Self, Marilyn Kidney transplanted; Immunosuppression ([facility]) 08/07/2019 Orders Only Transplant Surgery Lucia Trinidad RN Results (Prograf 4/4) 08/06/2019 Telephone Transplant Surgery Jacqueline, Federico Kidney transplanted; Immunosuppression (HCC) 08/06/2019 Orders Only Transplant Surgery Self, Marilyn Kidney transplanted; Immunosuppression ([facility]) 08/06/2019 Orders Only Transplant Surgery Lucia Trinidad RN Results (Prograf 5/5 to 4/4 ) 07/30/2019 Telephone Transplant Surgery Self, Marilyn Kidney transplanted; Immunosuppression (HCC) 07/30/2019 Orders Only Transplant Surgery Gill, Kandy, MA Kidney transplanted; Immunosuppression (HCC) 07/30/2019 Orders Only Transplant Surgery Self, Marilyn Kidney transplanted; Immunosuppression (HCC) 07/30/2019 Orders Only Transplant Surgery Lucia Trinidad RN Results 07/27/2019 Telephone Transplant Surgery Self, Marilyn Kidney transplanted; Immunosuppression (HCC) 07/27/2019 Orders Only Transplant Surgery Berta Harrison MD 07/24/2019 Hospital Lab Encounter Velia Moore APRN Kidney transplanted (Primary Dx); Immunosuppression (HCC); Kidney replaced by transplant; GREGORY (obstructive sleep apnea); Cough; Uncontrolled type 1 diabetes mellitus with hypoglycemia without coma (HCC); H1N1 influenza; Rhinovirus 07/24/2019 Office Visit Transplant Surgery Lucia Trinidad RN Results (RVP pos) 07/24/2019 Telephone Transplant Surgery 07/24/2019 Travel Carla Castañeda RN Cough 07/23/2019 Telephone Transplant Surgery Verónica Palm MD Research subject (Primary Dx) 07/23/2019 Orders Only Transplant Surgery Marilyn Woods Kidney transplanted; Immunosuppression ([facility]) 07/20/2019 Orders Only Transplant Surgery Kandy Gill MA Kidney transplanted; Immunosuppression ([facility]) 07/20/2019 Orders Only Transplant Surgery Lucia Trinidad RN Results (Prograf 5/5 to 4/5) 07/19/2019 Telephone Transplant Surgery Jacqueline, Federico Kidney transplanted; Immunosuppression ([facility]) 07/18/2019 Orders Only Transplant Surgery Lucia Trinidad RN Other 07/17/2019 Telephone Transplant Surgery Lodi, Federico Kidney transplanted; Immunosuppression ([facility]) 07/13/2019 Orders Only Transplant Surgery Lucia Trinidad RN Results (Prograf 4/4 to 5/5) 07/12/2019 Telephone Transplant Surgery Berta Harrison MD 07/10/2019 Hospital Lab Encounter Berta Harrison MD Immunosuppression ([facility]) (Primary Dx); Aftercare following organ transplant 07/10/2019 Office Visit Transplant Surgery Tyrone Castillo MD Kidney replaced by transplant (Primary D x); S/P kidney transplant 07/09/2019 Procedure visit Urology Lucia Trinidad RN Immunosuppression ([facility]) (Primary Dx) 07/09/2019 Orders Only Transplant Surgery Jacqueline, Federico Kidney transplanted; Immunosuppression ([facility]) 07/09/2019 Orders Only Transplant Surgery Lucia Trinidad RN Results (Prograf - no change) 07/06/2019 Telephone Transplant Surgery Jacqueline, Federico Kidney transplanted; Immunosuppression ([facility]) 07/05/2019 Orders Only Transplant Surgery Lucia Trinidad RN 07/03/2019 Refill Transplant Surgery Kandy Gill MA Kidney transplanted; Immunosuppression ([facility]) 07/03/2019 Orders Only Transplant Surgery Lucia Trinidad RN Results (DSA/Allosure) 07/02/2019 Telephone Transplant Surgery from Last 3 Months Social History Date Tobacco Use Types Packs/Day [...] or suspected to have Coronavirus / COVID-19? Last Filed Vital Signs Reading Time Taken Comments Vital Sign 139/76 09/20/2019 10:01 AM CDT Blood Pressure 83 09/20/2019 10:01 AM CDT Pulse 36.1 C (97 F) 09/20/2019 9:56 AM CDT Temperature 17 06/12/2019 8:35 AM DIRECTOR GAME Respiratory Rate 97% 08/20/2019 9:20 AM CDT Oxygen Saturation - - Inhaled Oxygen Concentration 91.2 kg (201 lb) 09/20/2019 9:56 AM CDT Weight 167.6 cm (5' 6") 09/20/2019 9:56 AM CDT Height 32.44 09/20/2019 9:56 AM CDT Body Mass Index Plan of Treatment Care Team Description Date Type Specialty Berta Harrison MD [address] [place] [address] Doroteo Enamorado MD [address] [place] [address] 10/02/2019 Hospital Radiology Encounter Health Maintenance Due Date Last Done Comments MEDICARE ANNUAL WELLNESS 1971 VISIT DILATED EYE EXAM 1989 DTAP/TDAP VACCINES (1 - 1989 Tdap) FOOT EXAM 1989 MICROALBUMIN 1989 PHYSICAL (COMPREHENSIVE) 1989 EXAM PNEUMONIA VACCINE (DM) 1989 INFLUENZA VACCINE 02/07/2020 HBA1C 03/19/2020 09/17/2019, 05/27/2019, 04/19/2019, Additional history exists HEPATITIS C SCREENING Completed 04/19/2019, 12/17/2016 HIV SCREENING Completed 04/19/2019, 12/17/2016 Goals Goal Patient Associated Recent Progress Patient-Stat Aut hor Goal Type Problems ed? Recover from illness Hospital Rajani Ac RN Implants Device Identifier Shelf Expiration Date Model / Serial / L ot Explanted Type Area Manufactur er 01/19/2024 [id number] / NA / [id number] Stent Ureteral 6fr 12cm 100cm Stent N/A: Ureter [id number] .028in 1 Step Insert Push - Sna NANCY Implanted: Qty: 1 on 05/27/2019 by Melecio Hudson MD at [facility] Explanted: Qty: 1 on 07/09/2019 by Tyrone Castillo MD Procedures Comments Procedure Name Priority Date/Time Associated Diag nosis PHOSPHORUS Routine 09/24/2019 Kidney transpla nted 8:18 AM CDT COMPREHENSIVE METABOLIC Routine 09/24/2019 Kidney transplanted PANEL 8:18 AM CDT CBC AND DIFF Routine 09/24/2019 Kidney transpla nted 8:18 AM CDT MAGNESIUM Routine 09/24/2019 Kidney transpla nted 8:18 AM CDT Immunosuppression (HCC) PROTEIN/CR RATIO,UR RAN Routine 09/24/2019 Kidney transplanted 8:18 AM CDT Immunosuppression (HCC) URINALYSIS MICROSCOPIC Routine 09/24/2019 Kidney transplanted REFLEX TO CULTURE 8:18 AM CDT URINALYSIS DIPSTICK Routine 09/24/2019 Kidney tra nsplanted REFLEX TO CULTURE 8:18 AM CDT URIC ACID Routine 09/24/2019 Kidney transpla nted 8:18 AM CDT Immunosuppression (HCC) TACROLIMUS LEVEL(FK506) Routine 09/20/2019 Kidney transplanted 7:31 AM CDT Immunosuppression (HCC) URINALYSIS DIPSTICK Routine 09/20/2019 Kidney tra nsplanted REFLEX TO CULTURE 7:31 AM CDT URINALYSIS MICROSCOPIC Routine 09/20/2019 Kidney transplanted REFLEX TO CULTURE 7:31 AM CDT MAGNESIUM Routine 09/20/2019 Kidney transpla nted 7:31 AM CDT Immunosuppression (HCC) URIC ACID Routine 09/20/2019 Kidney transpla nted 7:31 AM CDT Immunosuppression (HCC) COMPREHENSIVE METABOLIC Routine 09/20/2019 Kidney transplanted PANEL 7:31 AM CDT Immunosuppression ( HCC) CBC AND DIFF Routine 09/20/2019 Kidney transpla nted 7:31 AM CDT Immunosuppression (HCC) PROTEIN/CR RATIO,UR RAN Routine 09/20/2019 Kidney transplanted 7:31 AM CDT Immunosuppression (HCC) PHOSPHORUS Routine 09/20/2019 Kidney transpla nted 7:31 AM CDT Immunosuppression (HCC) TACROLIMUS LEVEL(FK506) Routine 09/17/2019 Kidney transplanted 8:16 AM CDT Immunosuppression (HCC) TRANSFERRIN Routine 09/17/2019 Iron deficiency 8:16 AM CDT HEMOGLOBIN A1C Routine 09/17/2019 Hyperglycemia 8:16 AM CDT IRON + BINDING CAPACITY + Routine 09/17/2019 Iron deficiency %SAT+ FERRITIN 8:16 AM CDT URINALYSIS DIPSTICK Routine 09/17/2019 Kidney tra nsplanted REFLEX TO CULTURE 8:16 AM CDT Immunosuppression ( HCC) URINALYSIS MICROSCOPIC Routine 09/17/2019 Kidney transplanted REFLEX TO CULTURE 8:16 AM CDT Immunosuppression ( HCC) MAGNESIUM Routine 09/17/2019 Kidney transpla nted 8:16 AM CDT Immunosuppression (HCC) COMPREHENSIVE METABOLIC Routine 09/17/2019 Kidney transplanted PANEL 8:16 AM CDT Immunosuppression ( HCC) CBC AND DIFF Routine 09/17/2019 Kidney transpla nted 8:16 AM CDT Immunosuppression (HCC) PROTEIN/CR RATIO,UR RAN Routine 09/17/2019 Kidney transplanted 8:16 AM CDT Immunosuppression (HCC) 25-OH VITAMIN D (D2 + D3) Routine 09/17/2019 Jennie min D deficiency 8:16 AM CDT PHOSPHORUS Routine 09/17/2019 Kidney transpla nted 8:16 AM CDT Immunosuppression (HCC) PROTIME INR (PT) Routine 09/17/2019 Kidney transp lanted 8:16 AM CDT TACROLIMUS LEVEL(FK506) Routine 09/13/2019 Kidney transplanted 8:25 AM CDT Immunosuppression (HCC) MAGNESIUM Routine 09/13/2019 Kidney transpla nted 8:25 AM CDT Immunosuppression (HCC) PROTEIN/CR RATIO,UR RAN Routine 09/13/2019 Kidney transplanted 8:25 AM CDT Immunosuppression (HCC) URINALYSIS MICROSCOPIC Routine 09/13/2019 Kidney transplanted REFLEX TO CULTURE 8:25 AM CDT Immunosuppression ( HCC) URINALYSIS DIPSTICK Routine 09/13/2019 Kidney tra nsplanted REFLEX TO CULTURE 8:25 AM CDT Immunosuppression ( [facility]) URIC ACID Routine 09/13/2019 Kidney transpla nted 8:25 AM CDT Immunosuppression (HCC) COMPREHENSIVE METABOLIC Routine 09/13/2019 Kidney transplanted PANEL 8:25 AM CDT Immunosuppression ( HCC) CBC AND DIFF Routine 09/13/2019 Kidney transpla nted 8:25 AM CDT Immunosuppression (HCC) PHOSPHORUS Routine 09/13/2019 Kidney transpla nted 8:25 AM CDT Immunosuppression (HCC) TACROLIMUS LEVEL(FK506) Routine 09/10/2019 Kidney transplanted 9:52 AM CDT Immunosuppression (HCC) PHOSPHORUS Routine 09/10/2019 Kidney transpla nted 9:52 AM CDT Immunosuppression (HCC) URINALYSIS DIPSTICK Routine 09/10/2019 Kidney tra nsplanted REFLEX TO CULTURE 9:52 AM CDT Immunosuppression ( HCC) URINALYSIS MICROSCOPIC Routine 09/10/2019 Kidney transplanted REFLEX TO CULTURE 9:52 AM CDT Immunosuppression ( HCC) URIC ACID Routine 09/10/2019 Kidney transpla nted 9:52 AM CDT Immunosuppression (HCC) MAGNESIUM Routine 09/10/2019 Kidney transpla nted 9:52 AM CDT Immunosuppression (HCC) COMPREHENSIVE METABOLIC Routine 09/10/2019 Kidney transplanted PANEL 9:52 AM CDT Immunosuppression ( HCC) CBC AND DIFF Routine 09/10/2019 Kidney transpla nted 9:52 AM CDT Immunosuppression (HCC) PROTEIN/CR RATIO,UR RAN Routine 09/10/2019 Kidney transplanted 9:52 AM CDT Immunosuppression (HCC) TACROLIMUS LEVEL(FK506) Routine 09/06/2019 Kidney transplanted 9:19 AM CDT Immunosuppression (HCC) URIC ACID Routine 09/06/2019 Kidney transpla nted 9:19 AM CDT Immunosuppression (HCC) PHOSPHORUS Routine 09/06/2019 Kidney transpla nted 9:19 AM CDT Immunosuppression (HCC) MAGNESIUM Routine 09/06/2019 Kidney transpla nted 9:19 AM CDT Immunosuppression (HCC) COMPREHENSIVE METABOLIC Routine 09/06/2019 Kidney transplanted PANEL 9:19 AM CDT Immunosuppression ( HCC) CBC AND DIFF Routine 09/06/2019 Kidney transpla nted 9:19 AM CDT Immunosuppression (HCC) PROTEIN/CR RATIO,UR RAN Routine 09/06/2019 Kidney transplanted 9:19 AM CDT Immunosuppression (HCC) TACROLIMUS LEVEL(FK506) Routine 09/04/2019 Kidney transplanted 7:47 AM CDT Immunosuppression (HCC) URINALYSIS MICROSCOPIC Routine 09/04/2019 Kidney transplanted REFLEX TO CULTURE 7:47 AM CDT Immunosuppression ( HCC) URINALYSIS DIPSTICK Routine 09/04/2019 Kidney tra nsplanted REFLEX TO CULTURE 7:47 AM CDT Immunosuppression ( HCC) URINALYSIS MICROSCOPIC Routine 09/04/2019 Kidney transplanted REFLEX TO CULTURE 7:47 AM CDT Immunosuppression ( HCC) URIC ACID Routine 09/04/2019 Kidney transpla nted 7:47 AM CDT Immunosuppression (HCC) PHOSPHORUS Routine 09/04/2019 Kidney transpla nted 7:47 AM CDT Immunosuppression (HCC) MAGNESIUM Routine 09/04/2019 Kidney transpla nted 7:47 AM CDT Immunosuppression (HCC) COMPREHENSIVE METABOLIC Routine 09/04/2019 Kidney transplanted PANEL 7:47 AM CDT Immunosuppression ( HCC) PROTEIN/CR RATIO,UR RAN Routine 09/04/2019 Kidney transplanted 7:47 AM CDT Immunosuppression (HCC) CBC AND DIFF Routine 09/04/2019 Kidney transpla nted 7:47 AM CDT Immunosuppression (HCC) URINALYSIS DIPSTICK Routine 09/04/2019 Kidney tra nsplanted REFLEX TO CULTURE 7:47 AM CDT Immunosuppression ( HCC) TACROLIMUS LEVEL(FK506) Routine 08/30/2019 Kidney transplanted 9:54 AM CDT Immunosuppression (HCC) URINALYSIS MICROSCOPIC Routine 08/30/2019 Kidney transplanted REFLEX TO CULTURE 9:54 AM CDT Immunosuppression ( HCC) URIC ACID Routine 08/30/2019 Kidney transpla nted 9:54 AM CDT Immunosuppression (HCC) MAGNESIUM Routine 08/30/2019 Kidney transpla nted 9:54 AM CDT Immunosuppression (HCC) COMPREHENSIVE METABOLIC Routine 08/30/2019 Kidney transplanted PANEL 9:54 AM CDT Immunosuppression ( HCC) CBC AND DIFF Routine 08/30/2019 Kidney transpla nted 9:54 AM CDT Immunosuppression (HCC) PHOSPHORUS Routine 08/30/2019 Kidney transpla nted 9:54 AM CDT Immunosuppression (HCC) PROTEIN/CR RATIO,UR RAN Routine 08/30/2019 Kidney transplanted 9:54 AM CDT Immunosuppression (HCC) URINALYSIS DIPSTICK Routine 08/30/2019 Kidney tra nsplanted REFLEX TO CULTURE 9:54 AM CDT Immunosuppression ( [facility]) CMV QUANT PCR-BLOOD Routine 08/28/2019 Kidney tra nsplanted 8:30 AM CDT Immunosuppression ([facility]) BK VIRUS DNA, QUANT Routine 08/28/2019 Kidney tra nsplanted PLASMA 8:30 AM CDT Immunosuppression ( [facility] [place]) TACROLIMUS LEVEL(FK506) Routine 08/28/2019 Kidney transplanted 8:30 AM CDT Immunosuppression ([facility]) PROTEIN/CR RATIO,UR RAN Routine 08/28/2019 Kidney transplanted 8:30 AM CDT Immunosuppression ([facility]) URINALYSIS DIPSTICK Routine 08/28/2019 Kidney tra nsplanted REFLEX TO CULTURE 8:30 AM CDT Immunosuppression ( [facility] [place]) URINALYSIS MICROSCOPIC Routine 08/28/2019 Kidney transplanted REFLEX TO CULTURE 8:30 AM CDT Immunosuppression ( [facility]) URIC ACID Routine 08/28/2019 Kidney transpla nted 8:30 AM CDT Immunosuppression ([facility]) PHOSPHORUS Routine 08/28/2019 Kidney transpla nted 8:30 AM CDT Immunosuppression ([facility]) MAGNESIUM Routine 08/28/2019 Kidney transpla nted 8:30 AM CDT Immunosuppression ([facility]) CBC AND DIFF Routine 08/28/2019 Kidney transpla nted 8:30 AM CDT Immunosuppression (HCC) COMPREHENSIVE METABOLIC Routine 08/28/2019 Kidney transplanted PANEL 8:30 AM CDT Immunosuppression ( HCC) TACROLIMUS LEVEL(FK506) Routine 08/23/2019 Kidney transplanted 9:37 AM CDT Immunosuppression (HCC) URIC ACID Routine 08/23/2019 Kidney transpla nted 9:37 AM CDT Immunosuppression (HCC) MAGNESIUM Routine 08/23/2019 Kidney transpla nted 9:37 AM CDT Immunosuppression (HCC) PHOSPHORUS Routine 08/23/2019 Kidney transpla nted 9:37 AM CDT Immunosuppression (HCC) URINALYSIS MICROSCOPIC Routine 08/23/2019 Kidney transplanted REFLEX TO CULTURE 9:37 AM CDT Immunosuppression ( [facility]) URINALYSIS DIPSTICK Routine 08/23/2019 Kidney tra nsplanted REFLEX TO CULTURE 9:37 AM CDT Immunosuppression ( [facility]) COMPREHENSIVE METABOLIC Routine 08/23/2019 Kidney transplanted PANEL 9:37 AM CDT Immunosuppression ( [facility]) CBC AND DIFF Routine 08/23/2019 Kidney transpla nted 9:37 AM CDT Immunosuppression ([facility]) PROTEIN/CR RATIO,UR RAN Routine 08/23/2019 Kidney transplanted 9:37 AM CDT Immunosuppression ([facility] [place]) HC TP/CR RATIO, RANDOM Routine 08/20/2019 Kidney transplanted 9:02 AM CDT Immunosuppression ([facility] [place]) UA REFLEX CULTURE LABEL 08/20/2019 9:01 AM CDT HC CBC W/ AUTOMATED DIFF Routine 08/20/2019 Kidne y transplanted 9:01 AM CDT Immunosuppression ([facility] [place]) HC COMPREHENSIVE Routine 08/20/2019 Kidney transp lanted METABOLIC PANEL 9:01 AM CDT Immunosuppression ( HCC) HC MAGNESIUM Routine 08/20/2019 Kidney transpla nted 9:01 AM CDT Immunosuppression (HCC) HC PHOSPHOROUS, SERUM Routine 08/20/2019 Kidney t ransplanted 9:01 AM CDT Immunosuppression (HCC) HC URIC ACID Routine 08/20/2019 Kidney transpla nted 9:01 AM CDT Immunosuppression (HCC) HC URINALYSIS UAR Routine 08/20/2019 Kidney trans planted 9:01 AM CDT Immunosuppression (HCC) URINALYSIS MICROSCOPIC Routine 08/20/2019 Kidney transplanted REFLEX TO CULTURE 9:01 AM CDT Immunosuppression ( HCC) HC FK 506 Routine 08/20/2019 Kidney transpla nted 9:01 AM CDT Immunosuppression (HCC) HC TACROLIMUS LC-MS/MS Routine 08/20/2019 Immunos uppression (HCC) 9:01 AM CDT TACROLIMUS LEVEL(FK506) Routine 08/16/2019 Kidney transplanted 9:30 AM CDT Immunosuppression (HCC) URINALYSIS MICROSCOPIC Routine 08/16/2019 Kidney transplanted REFLEX TO CULTURE 9:30 AM CDT Immunosuppression ( HCC) URINALYSIS DIPSTICK Routine 08/16/2019 Kidney tra nsplanted REFLEX TO CULTURE 9:30 AM CDT Immunosuppression ( HCC) URIC ACID Routine 08/16/2019 Kidney transpla nted 9:30 AM CDT Immunosuppression (HCC) PHOSPHORUS Routine 08/16/2019 Kidney transpla nted 9:30 AM CDT Immunosuppression (HCC) MAGNESIUM Routine 08/16/2019 Kidney transpla nted 9:30 AM CDT Immunosuppression (HCC) COMPREHENSIVE METABOLIC Routine 08/16/2019 Kidney transplanted PANEL 9:30 AM CDT Immunosuppression ( HCC) CBC AND DIFF Routine 08/16/2019 Kidney transpla nted 9:30 AM CDT Immunosuppression (HCC) CMV QUANT PCR-BLOOD Routine 08/15/2019 Kidney tra nsplanted 11:06 PM CDT Immunosuppression (HCC) BK VIRUS DNA, QUANT Routine 08/15/2019 Kidney tra nsplanted PLASMA 11:06 PM CDT Immunosuppression ( HCC) TACROLIMUS LEVEL(FK506) Routine 08/13/2019 Kidney transplanted 7:45 AM CDT Immunosuppression (HCC) PHOSPHORUS Routine 08/13/2019 Kidney transpla nted 7:45 AM CDT Immunosuppression (HCC) URINALYSIS MICROSCOPIC Routine 08/13/2019 Kidney transplanted REFLEX TO CULTURE 7:45 AM CDT Immunosuppression ( HCC) URINALYSIS DIPSTICK Routine 08/13/2019 Kidney tra nsplanted REFLEX TO CULTURE 7:45 AM CDT Immunosuppression ( HCC) URIC ACID Routine 08/13/2019 Kidney transpla nted 7:45 AM CDT Immunosuppression (HCC) MAGNESIUM Routine 08/13/2019 Kidney transpla nted 7:45 AM CDT Immunosuppression (HCC) COMPREHENSIVE METABOLIC Routine 08/13/2019 Kidney transplanted PANEL 7:45 AM CDT Immunosuppression ( HCC) CBC AND DIFF Routine 08/13/2019 Kidney transpla nted 7:45 AM CDT Immunosuppression (HCC) TACROLIMUS LEVEL(FK506) Routine 08/09/2019 Kidney transplanted 9:38 AM CDT Immunosuppression (HCC) URINALYSIS MICROSCOPIC Routine 08/09/2019 Kidney transplanted REFLEX TO CULTURE 9:38 AM CDT Immunosuppression ( HCC) URINALYSIS DIPSTICK Routine 08/09/2019 Kidney tra nsplanted REFLEX TO CULTURE 9:38 AM CDT Immunosuppression ( HCC) URIC ACID Routine 08/09/2019 Kidney transpla nted 9:38 AM CDT Immunosuppression (HCC) PHOSPHORUS Routine 08/09/2019 Kidney transpla nted 9:38 AM CDT Immunosuppression (HCC) MAGNESIUM Routine 08/09/2019 Kidney transpla nted 9:38 AM CDT Immunosuppression (HCC) COMPREHENSIVE METABOLIC Routine 08/09/2019 Kidney transplanted PANEL 9:38 AM CDT Immunosuppression ( HCC) CBC AND DIFF Routine 08/09/2019 Kidney transpla nted 9:38 AM CDT Immunosuppression (HCC) PROTEIN/CR RATIO,UR RAN Routine 08/09/2019 Kidney transplanted 9:38 AM CDT Immunosuppression (HCC) MAGNESIUM Routine 08/06/2019 Kidney transpla nted 7:38 AM CDT Immunosuppression (HCC) TACROLIMUS LEVEL(FK506) Routine 08/06/2019 Kidney transplanted 7:36 AM CDT Immunosuppression (HCC) CBC AND DIFF Routine 08/06/2019 Kidney transpla nted 7:36 AM CDT Immunosuppression (HCC) COMPREHENSIVE METABOLIC Routine 08/06/2019 Kidney transplanted PANEL 7:36 AM CDT Immunosuppression ( HCC) PHOSPHORUS Routine 08/06/2019 Kidney transpla nted 7:36 AM CDT Immunosuppression (HCC) URIC ACID Routine 08/06/2019 Kidney transpla nted 7:36 AM CDT Immunosuppression (HCC) URINALYSIS DIPSTICK Routine 08/06/2019 Kidney tra nsplanted REFLEX TO CULTURE 7:36 AM CDT Immunosuppression ( HCC) URINALYSIS MICROSCOPIC Routine 08/06/2019 Kidney transplanted REFLEX TO CULTURE 7:36 AM CDT Immunosuppression ( HCC) TACROLIMUS LEVEL(FK506) Routine 08/02/2019 Kidney transplanted 11:11 AM CDT Immunosuppression (HCC) PROTEIN/CR RATIO,UR RAN Routine 08/02/2019 Kidney transplanted 11:11 AM CDT Immunosuppression (HCC) URINALYSIS MICROSCOPIC Routine 08/02/2019 Kidney transplanted REFLEX TO CULTURE 11:11 AM CDT Immunosuppression ( HCC) URINALYSIS DIPSTICK Routine 08/02/2019 Kidney tra nsplanted REFLEX TO CULTURE 11:11 AM CDT Immunosuppression ( HCC) URIC ACID Routine 08/02/2019 Kidney transpla nted 11:11 AM CDT Immunosuppression (HCC) PHOSPHORUS Routine 08/02/2019 Kidney transpla nted 11:11 AM CDT Immunosuppression (HCC) MAGNESIUM Routine 08/02/2019 Kidney transpla nted 11:11 AM CDT Immunosuppression (HCC) COMPREHENSIVE METABOLIC Routine 08/02/2019 Kidney transplanted PANEL 11:11 AM CDT Immunosuppression ( HCC) CBC AND DIFF Routine 08/02/2019 Kidney transpla nted 11:11 AM CDT Immunosuppression (HCC) TACROLIMUS LEVEL(FK506) Routine 07/30/2019 Kidney transplanted 7:51 AM CDT Immunosuppression (HCC) CBC AND DIFF Routine 07/30/2019 Kidney transpla nted 7:51 AM CDT Immunosuppression (HCC) COMPREHENSIVE METABOLIC Routine 07/30/2019 Kidney transplanted PANEL 7:51 AM CDT Immunosuppression ( HCC) MAGNESIUM Routine 07/30/2019 Kidney transpla nted 7:51 AM CDT Immunosuppression (HCC) PHOSPHORUS Routine 07/30/2019 Kidney transpla nted 7:51 AM CDT Immunosuppression (HCC) PROTEIN/CR RATIO,UR RAN Routine 07/30/2019 Kidney transplanted 7:51 AM CDT Immunosuppression (HCC) URIC ACID Routine 07/30/2019 Kidney transpla nted 7:51 AM CDT Immunosuppression (HCC) URINALYSIS DIPSTICK Routine 07/30/2019 Kidney tra nsplanted REFLEX TO CULTURE 7:51 AM CDT Immunosuppression ( HCC) URINALYSIS MICROSCOPIC Routine 07/30/2019 Kidney transplanted REFLEX TO CULTURE 7:51 AM CDT Immunosuppression ( HCC) TACROLIMUS LEVEL(FK506) Routine 07/26/2019 Kidney transplanted 9:10 AM CDT Immunosuppression (HCC) URIC ACID Routine 07/26/2019 Kidney transpla nted 9:10 AM CDT Immunosuppression (HCC) CBC AND DIFF Routine 07/26/2019 Kidney transpla nted 9:10 AM CDT Immunosuppression (HCC) COMPREHENSIVE METABOLIC Routine 07/26/2019 Kidney transplanted PANEL 9:10 AM CDT Immunosuppression ( [facility] [place]) MAGNESIUM Routine 07/26/2019 Kidney transpla nted 9:10 AM CDT Immunosuppression ([facility] [place]) PHOSPHORUS Routine 07/26/2019 Kidney transpla nted 9:10 AM CDT Immunosuppression ([facility] [place]) PROTEIN/CR RATIO,UR RAN Routine 07/26/2019 Kidney transplanted 9:10 AM CDT Immunosuppression ([facility] [place]) URINALYSIS DIPSTICK Routine 07/26/2019 Kidney tra nsplanted REFLEX TO CULTURE 9:10 AM CDT Immunosuppression ( [facility] [place]) URINALYSIS MICROSCOPIC Routine 07/26/2019 Kidney transplanted REFLEX TO CULTURE 9:10 AM CDT Immunosuppression ( [facility] [place]) HC RVP PANEL NASAL SINGLE Routine 07/24/2019 Kidn ey transplanted RVPN 11:00 AM CDT UA REFLEX CULTURE LABEL 07/24/2019 10:19 AM CDT URINALYSIS MICROSCOPIC Routine 07/24/2019 Kidney transplanted REFLEX TO CULTURE 10:19 AM CDT HC URINALYSIS UAR Routine 07/24/2019 Kidney trans planted 10:19 AM CDT HC TP/CR RATIO, RANDOM Routine 07/24/2019 Kidney transplanted 10:18 AM CDT HC CMV DNA QN BY PCR Routine 07/24/2019 Kidney tr ansplanted 10:10 AM CDT HC BK VIRUS DNA, QUANT Routine 07/24/2019 Kidney transplanted 10:10 AM CDT HC URIC ACID Routine 07/24/2019 Kidney transpla nted 10:10 AM CDT HC PHOSPHOROUS, SERUM Routine 07/24/2019 Kidney t ransplanted 10:10 AM CDT HC MAGNESIUM Routine 07/24/2019 Kidney transpla nted 10:10 AM CDT HC COMPREHENSIVE Routine 07/24/2019 Kidney transp lanted METABOLIC PANEL 10:10 AM CDT HC CBC W/ AUTOMATED DIFF Routine 07/24/2019 Kidne y transplanted 10:10 AM CDT RESEARCH BLOOD COLLECTION Routine 07/24/2019 Rese arch subject ONLY 10:10 AM CDT TACROLIMUS LEVEL(FK506) Routine 07/19/2019 Kidney transplanted 9:39 AM CDT Immunosuppression (HCC) CBC AND DIFF Routine 07/19/2019 Kidney transpla nted 9:39 AM CDT Immunosuppression (HCC) COMPREHENSIVE METABOLIC Routine 07/19/2019 Kidney transplanted PANEL 9:39 AM CDT Immunosuppression ( HCC) MAGNESIUM Routine 07/19/2019 Kidney transpla nted 9:39 AM CDT Immunosuppression (HCC) PHOSPHORUS Routine 07/19/2019 Kidney transpla nted 9:39 AM CDT Immunosuppression (HCC) PROTEIN/CR RATIO,UR RAN Routine 07/19/2019 Kidney transplanted 9:39 AM CDT Immunosuppression (HCC) URIC ACID Routine 07/19/2019 Kidney transpla nted 9:39 AM CDT Immunosuppression (HCC) URINALYSIS DIPSTICK Routine 07/19/2019 Kidney tra nsplanted REFLEX TO CULTURE 9:39 AM CDT Immunosuppression ( HCC) URINALYSIS MICROSCOPIC Routine 07/19/2019 Kidney transplanted REFLEX TO CULTURE 9:39 AM CDT Immunosuppression ( HCC) TACROLIMUS LEVEL(FK506) Routine 07/16/2019 Kidney transplanted 7:55 AM CDT Immunosuppression (HCC) URIC ACID Routine 07/16/2019 Kidney transpla nted 7:55 AM CDT Immunosuppression (HCC) PHOSPHORUS Routine 07/16/2019 Kidney transpla nted 7:55 AM CDT Immunosuppression (HCC) COMPREHENSIVE METABOLIC Routine 07/16/2019 Kidney transplanted PANEL 7:55 AM CDT Immunosuppression ( HCC) CBC AND DIFF Routine 07/16/2019 Kidney transpla nted 7:55 AM CDT Immunosuppression (HCC) PROTEIN/CR RATIO,UR RAN Routine 07/16/2019 Kidney transplanted 7:55 AM CDT Immunosuppression (HCC) URINALYSIS MICROSCOPIC Routine 07/12/2019 Kidney transplanted REFLEX TO CULTURE 7:55 AM DIRECTOR [employer]AME Immunosuppression ( HCC) URINALYSIS DIPSTICK Routine 07/12/2019 Kidney tra nsplanted REFLEX TO CULTURE 7:55 AM DIRECTOR [employer] Immunosuppression ( HCC) PROTEIN/CR RATIO,UR RAN Routine 07/12/2019 Kidney transplanted 7:54 AM DIRECTOR [employer]AME Immunosuppression (HCC) URINALYSIS MICROSCOPIC Routine 07/12/2019 Kidney transplanted REFLEX TO CULTURE 7:54 AM DIRECTOR [employer]AME Immunosuppression ( HCC) URINALYSIS DIPSTICK Routine 07/12/2019 Kidney tra nsplanted REFLEX TO CULTURE 7:54 AM DIRECTOR [employer]AME Immunosuppression ( HCC) URIC ACID Routine 07/12/2019 Kidney transpla nted 7:54 AM DIRECTOR [employer]AME Immunosuppression (HCC) PHOSPHORUS Routine 07/12/2019 Kidney transpla nted 7:54 AM DIRECTOR [employer]AME Immunosuppression (HCC) MAGNESIUM Routine 07/12/2019 Kidney transpla nted 7:54 AM DIRECTOR [employer]AME Immunosuppression (HCC) COMPREHENSIVE METABOLIC Routine 07/12/2019 Kidney transplanted PANEL 7:54 AM DIRECTOR [employer] Immunosuppression ( HCC) CBC AND DIFF Routine 07/12/2019 Kidney transpla nted 7:54 AM DIRECTOR [employer]AME Immunosuppression (HCC) UA REFLEX CULTURE LABEL 07/10/2019 10:36 AM DIRECTOR [employer]AME HC TP/CR RATIO, RANDOM Routine 07/10/2019 Kidney transplanted 10:36 AM DIRECT[employer]AME Immunosuppression (HCC) URINALYSIS MICROSCOPIC Routine 07/10/2019 Kidney transplanted REFLEX TO CULTURE 10:36 AM DIRECTOR [employer]AME Immunosuppression ( HCC) HC URINALYSIS UAR Routine 07/10/2019 Kidney trans planted 10:36 AM DIRECTOR [employer]AME Immunosuppression (HCC) HC TACROLIMUS LC-MS/MS Routine 07/10/2019 Immunos uppression (HCC) 10:27 AM DIRECT[employer]AME HC URIC ACID Routine 07/10/2019 Kidney transpla nted 10:27 AM DIRECT[employer] HC MAGNESIUM Routine 07/10/2019 Kidney transpla nted 10:27 AM DIRECT[employer] HC PHOSPHOROUS, SERUM Routine 07/10/2019 Kidney t ransplanted 10:27 AM DIRECT[employer] HC COMPREHENSIVE Routine 07/10/2019 Kidney transp lanted METABOLIC PANEL 10:27 AM DIRECTOR [employer]AME HC CBC W/ AUTOMATED DIFF Routine 07/10/2019 Kidne y transplanted 10:27 AM DIRECT[employer] FL CYSTO W/SIMPLE REMOVAL Routine 07/09/2019 Kidn ey replaced by STONE [employer] STENT 1:00 PM DIRECTOR [employer]AME transplant TACROLIMUS LEVEL(FK506) Routine 07/05/2019 Kidney transplanted 7:46 AM DIRECT[employer]AME Immunosuppression (HCC) URINALYSIS DIPSTICK Routine 07/05/2019 Kidney tra nsplanted REFLEX TO CULTURE 7:46 AM DIRECT[employer]AME Immunosuppression ( HCC) URIC ACID Routine 07/05/2019 Kidney transpla nted 7:46 AM DIRECTOR [employer]AME Immunosuppression (HCC) PHOSPHORUS Routine 07/05/2019 Kidney transpla nted 7:46 AM DIRECTOR [employer]AME Immunosuppression (HCC) COMPREHENSIVE METABOLIC Routine 07/05/2019 Kidney transplanted PANEL 7:46 AM DIRECTOR [employer]AME Immunosuppression ( HCC) CBC AND DIFF Routine 07/05/2019 Kidney transpla nted 7:46 AM DIRECTOR [employer]AME Immunosuppression (HCC) PROTEIN/CR RATIO,UR RAN Routine 07/05/2019 Kidney transplanted 7:46 AM DIRECTOR [employer]AME Immunosuppression (HCC) URINALYSIS MICROSCOPIC Routine 07/05/2019 Kidney transplanted REFLEX TO CULTURE 7:46 AM DIRECTOR [employer]AME Immunosuppression ( HCC) TACROLIMUS LEVEL(FK506) Routine 07/02/2019 Kidney transplanted 8:54 AM DIRECT[employer]AME Immunosuppression (HCC) URINALYSIS MICROSCOPIC Routine 07/02/2019 Kidney transplanted REFLEX TO CULTURE 8:54 AM DIRECTOR [employer]AME Immunosuppression ( HCC) URINALYSIS DIPSTICK Routine 07/02/2019 Kidney tra nsplanted REFLEX TO CULTURE 8:54 AM DIRECTOR [employer]AME Immunosuppression ( HCC) URIC ACID Routine 07/02/2019 Kidney transpla nted 8:54 AM DIRECTOR [employer]AME Immunosuppression (HCC) PHOSPHORUS Routine 07/02/2019 Kidney transpla nted 8:54 AM DIRECTOR [employer]AME Immunosuppression (HCC) MAGNESIUM Routine 07/02/2019 Kidney transpla nted 8:54 AM DIRECTOR [employer]AME Immunosuppression (HCC) COMPREHENSIVE METABOLIC Routine 07/02/2019 Kidney transplanted PANEL 8:54 AM DIRECTOR [employer]AME Immunosuppression ( HCC) CBC AND DIFF Routine 07/02/2019 Kidney transpla nted 8:54 AM DIRECTOR [employer]AME Immunosuppression (HCC) PROTEIN/CR RATIO,UR RAN Routine 07/02/2019 Kidney transplanted 8:54 AM DIRECTOR [employer]AME Immunosuppression (HCC) MAGNESIUM Routine 07/02/2019 Kidney transpla nted 7:46 AM DIRECTOR [employer]AME Immunosuppression (HCC) from Last 3 Months Results * URINALYSIS MICROSCOPIC REFLEX TO CULTURE (09/24/2019 8:18 AM CDT) Only the most recent of 25 results within the time period is included. WBCs,UA Negative [facility] RBCs,UA Few [facility] Bacteria,UA Negative [facility] Squamous 0-5 [facility] Epithelial Cells Specimen Urine Narrative Performed At [facility] Outside Lab Verified by Federicomarta Phillips on 09/24/2019. Performing Organization Address [facility] Ph one Number LABDE INTERFACE * URINALYSIS DIPSTICK REFLEX TO CULTURE (09/24/2019 8:18 AM CDT) Only the most recent of 25 results within the time period is included. Color,UA Yellow [facility] Turbidity,UA Clear [facility] Glucose,UA 2+ (A) Negative [facility] Bilirubin,UA Negative [facility] Ketones,UA Negative [facility] Specific 1.020 [facility] Effie-Urine Blood,UA Trace-lysed (A) Negative [facility] INTER[facility] E pH,UA 5.5 [facility] Protein,UA 1+ (A) Negative [facility] Urobilinogen,UA 0.2 (A) 0.2 - 1.0 [facility] E Nitrite,UA Negative [facility] Leukocytes,UA Negative [facility] Specimen Urine Narrative Performed At [facility] Outside Lab Verified by WandoujiaJacqueline on 09/24/2019. Performing Organization Address [facility] Ph one Number LABDE INTERFACE * PROTEIN/CR RATIO,UR RAN (09/24/2019 8:18 AM CDT) Only the most recent of 22 results within the time period is included. Protein, Random 37 (H) 0 - 20 [facility] Creatinine, 101.4 (H) 0.0 - 50.0 [facility] Random Protein/CR 0.36 [facility] ratio Specimen Urine - Urine Narrative Performed At [facility] Outside Lab Verified by FedericoTidal Wave TechnologyLodi on 09/24/2019. Performing Organization Address [facility] Ph one Number LABDE INTERFACE * CBC AND DIFF (09/24/2019 8:18 AM CDT) Only the most recent of 25 results within the time period is included. White Blood 5.00 [facility] Cells RBC [...] At [facility] Outside Lab Verified by [employer] on 09/24/2019. Performing Organization Address [facility] one Number LABDE INTERFACE * URIC ACID (09/24/2019 8:18 AM CDT) Only the most recent of 24 results within the time period is included. Uric Acid 5.3 [facility] Specimen Blood Narrative Performed At [facility] Outside Lab Verified by FedericoMedefy on 09/24/2019. Performing Organization Address [facility] Ph one Number LABDE INTERFACE * PHOSPHORUS (09/24/2019 8:18 AM CDT) Only the most recent of 25 results within the time period is included. Phosphorus 2.9 [facility] Specimen Blood Narrative Performed At [facility] Outside Lab Verified by [employer] on 09/24/2019. Performing Organization Address City/[facility]/Zipcode Ph one Number LABDE INTERFACE * MAGNESIUM (09/24/2019 8:18 AM CDT) Only the most recent of 24 results within the time period is included. Magnesium 2.0 [facility] Specimen Blood Narrative Performed At [facility] INTER[facility] Outside Lab Verified by Federico Phillips on 09/24/2019. Performing Organization Address [facility] one [facility] LABDE INTERFACE * COMPREHENSIVE METABOLIC PANEL (09/24/2019 8:18 AM CDT) Only the most recent of 25 results within the time period is included. Sodium 140 mmol/L [facility] Potassium 4.3 [...] Federico Phillips on 09/24/2019. Performing Organization Address [facility] Number LABDE INTERFACE * TACROLIMUS LEVEL(FK506) (09/20/2019 7:31 AM CDT) Only the most recent of 21 results within the time period is included. Tacrolimus 7.0 [facility] INTER[facility] Specimen Blood Narrative Performed At [facility] INTER[facility] Outside Lab Verified by Federico Phillips on 09/24/2019. Performing Organization Address [facility] one Number LABDE INTERFACE * IRON + BINDING CAPACITY + %SAT+ FERRITIN (09/17/2019 8:16 AM CDT) Iron 99 70 - 200 ug/dL [facility] Iron 214 (L) 273 - 456 ug/dL LAB[facility] INTERFAC E Binding-TIBC % Saturation 46.32 15.00 - 55.00 % [facility] INTERFAC E Specimen Blood Narrative Performed At [facility] INTER[facility] Outside Lab Verified by Kandy crowe 09/17/2019. Performing Organization Address [facility] one Number LABDE INTERFACE * 25-OH VITAMIN D (D2 + D3) (09/17/2019 8:16 AM CDT) Vitamin 28.40 25.00 - 100.00 ng/mL LABDE INT ERFACE D(25-OH)Total Specimen Blood Narrative Performed At [facility] INTER[facility] Outside Lab Verified by Kandy crowe 09/17/2019. Performing Organization Address [facility] one [facility] LABDE INTERFACE * PROTIME INR (PT) (09/17/2019 8:16 AM CDT) [facility] Protime 11.4 9.9 - 12.8 [facility] INTERFACE INR 1.0 1.0 - 4.0 [facility] INTERFACE Specimen Blood Narrative Performed At [facility] INTER[facility] Outside Lab Verified by Kandy crowe 09/17/2019. Performing Organization Address [facility] one Number LABDE INTERFACE * TRANSFERRIN (09/17/2019 8:16 AM CDT) [facility] Transferrin 171 (L) 200 - 370 ug/dL LABDE INTERFAC E Specimen Blood Narrative Performed At LAB[facility] INTERFACE Outside Lab Verified by Kandy crowe 09/17/2019. Performing Organization Address [facility] one Number LABDE INTERFACE * HEMOGLOBIN A1C (09/17/2019 8:16 AM CDT) [facility] Hemoglobin A1C 5.80 LABDE INTERFACE Specimen Blood Narrative Performed At LAB[facility] INTERFACE Outside Lab Verified by Kandy crowe 09/17/2019. Performing Organization Address [facility] one Number LABDE INTERFACE * CMV QUANT PCR-BLOOD (08/28/2019 8:30 AM CDT) Only the most recent of 3 results within the time period is included. CMV DNA Quant Negative [facility] INTER[facility] PCR Specimen Blood Narrative Performed At [facility] INTER[facility] Outside Lab Verified by Kandy crowe 09/03/2019. Performing Organization Address City/[facility] one Number LABDE INTERFACE * BK VIRUS DNA, QUANT PLASMA (08/28/2019 8:30 AM CDT) Only the most recent of 3 results within the time period is included. BK Virus Plasma NEGATIVE [facility]FACE Quant Specimen Blood Narrative Performed At LAB[facility] INTERFACE Outside Lab Verified by Kandy crowe 09/03/2019. Performing Organization Address City/[facility] one Number LABDE INTERFACE * UA REFLEX CULTURE LABEL (08/20/2019 9:01 AM CDT) Only the most recent of 3 results within the time period is included. Pathologist [facility] UA Reflex Criteria for reflex to culture [facility] Culture are WBC>10, Positive Nitrit e, and/or >=+1 leukocytes. If quantity is not sufficient, an addendum will follow. Specimen Performing Organization Address [facility] one Number [facility] [address] [place] [address] * TACROLIMUS LC-MS/MS (08/20/2019 9:01 AM CDT) Only the most recent of 2 results within the time period is included. Pathologist [facility] Tacrolimus 7.0 REFERENCE LAB LC-MS/MS Comment: Reference range: 5.0 to 20.0 Unit: ng/mL . The range listed under the reference range indicates the target therapeutic range for transplant patients. This range will vary some based on the type of transplant, time post transplant, and the specific drug regimen the patient is on. Results should be used in conjunction with clinical findings, and should not form the sole basis for a diagnosis or treatment decision. Results above 25 ng/mL are considered toxic. The drug level was determined by Liquid Chromatography- Tandem Mass Spectrometry (LC-MS/MS). . This test was developed and its performance characteristics determined by [employer]. It has not been cleared or approved by the [place]. Food and Drug Administration. Testing Performed At: [facility] [place] [address] CLIA ID: [id number] Specimen Blood Performing Organization Address City/State/Zipcode Ph one Number REFERENCE LAB REFERENCE LAB See results for address. * RVP VIRAL PANEL PCR (07/24/2019 11:00 AM CDT) Specimen Source NASOPHARYNGEAL SWAB [facility] This panel does not detect SARS-CoV-2, the etiologic agent of COVID-19. Contact Infection Control for testing of patients with suspected SARS-CoV-2 infection. This assay uses analyte specific reagents and has not been cleared by the [place] Food and Drug Administration. The performance characterics were determined by the [facility]. Adenovirus NOT DETECTED DN-NOT DETECTED [facility] Coronavirus NOT DETECTED DN-NOT DETECTED MAIN LAB 229E Coronavirus NOT DETECTED DN-NOT DETECTED MAIN LAB HKU1 Coronavirus NOT DETECTED DN-NOT DETECTED MAIN LAB NL63 Coronavirus NOT DETECTED DN-NOT DETECTED MAIN LAB OC43 Human NOT DETECTED DN-NOT DETECTED MAIN LAB Metapneumovirus Human DETECTED (A) DN-NOT DETECTED [facility] Rhinovirus/ENTE ROVIRUS Influenza A DETECTED (A) DN-NOT DETECTED [facility] H1N1 2009 Influenza A H1 NOT DETECTED DN-NOT DETECTED [facility] Influenza A H3 NOT DETECTED DN-NOT DETECTED MAIN LAB Influenza B NOT DETECTED DN-NOT DETECTED MAIN LAB Parainfluenza 1 NOT DETECTED DN-NOT DETECTED MAIN LAB Parainfluenza 2 NOT DETECTED DN-NOT DETECTED [facility] Parainfluenza 3 NOT DETECTED DN-NOT DETECTED [facility] Parainfluenza 4 NOT DETECTED DN-NOT DETECTED [facility] RSV NOT DETECTED DN-NOT DETECTED [facility] Bordetella NOT DETECTED DN-NOT DETECTED [facility] Pertussis Chlamydophila NOT DETECTED DN-NOT DETECTED [facility] Pneumoniae Mycoplasma NOT DETECTED DN-NOT DETECTED [facility] Pneumoniae Specimen Nasopharyngeal Swab Performing Organization Address City/State/Zipcode Ph one Number MAIN LAB [address] [place] [address] * RESEARCH BLOOD COLLECTION ONLY (07/24/2019 10:10 AM CDT) Research Blood COLLECTED REFERENCE LAB Collection Only Specimen Blood Performing Organization Address City/[facility] Ph one Number REFERENCE LAB REFERENCE LAB See results for address. * CYSTO W/STENT REMOVAL (07/09/2019 1:00 PM DIRECTOR GAME) Narrative Performed At Tyrone Castillo MD 07/11/2019 2:48 PM IN CLINI C Encounter Date: 07/09/2019 Procedure: Flexible Cystoscopy & Stent Removal Provider: Tyrone Castillo MD, FACS Complications: None Anesthesia: Intraurethral 2% Lidocain e Gel Indication for procedure: 49 y.o. male w/ ESRD s/p kidney transplant on 05/27/2019. Presents to clinic today for transplant kidney stent removal. Procedure discu ssed w/ pt, including risks & complications. Time out performed. Reviewed chart & Op Note. After informed consent was obtained, he was prepped & draped in the usual fashion. 2% Lidocaine admin istered per urethra. After adequate time for anesthetic effect, th e flexible cystoscope was gently advanced into the urethra under direct visualization. Urethra: (-)lesions/ strictures. Upon entering the bladder, the stent was visualized from the (right) l ateral wall anastomosis site. The stent was grasped using fle xible forceps. The stent & scope were withdrawn simultaneously. He tolerated the procedure well & left the room in a pleasant disp osition. A/P: 1. s/p Renal Transplant - stent removed today w/o difficulty - continue abx, as directed by Transpla nt team. - f/u w/ Nephrology & Renal Transplant Team, per their recommendations - f/u w/ Urology prn Orders Placed This Encounter CYSTO W/STENT REMOVAL Tyrone Castillo MD, FACS Urology Performing Organization Address [facility] from Last 3 Months Insurance Type Payer Benefit Subscriber ID Effective Phone Address Plan / Dates Group Medicare MEDICARE MEDICARE xxxxxxxxxxx 2016- PART A AND Present B Medicare BCBS [place] BCBS xxxxxxxxxxxx 2019-P SUPPLEMENT resent Medicaid [place] [employer] xxxxxxxxxxx 2018-P STATE resent HEALTH Advance Directives Patient Knocker Off Explanation Type Date Recorded Advance 05/31/2019 11:10 AM Directive/DPOA Date Inactivated Comments Code Status Date Activated 06/01/2019 4:40 PM Full Code 05/27/2019 11:25 AM Provider has discussed Code Status No, more discussi on w/Patient or Family? needed
--- OUTSIDE RECORDS SUMMARY | 2019-09-28 08:39 | XMS REPORT | Encounter Summary ---
Author Author [facility] Organization [facility] Address Unknown Phone Unavailable Care Team Providers Care Superintendent Transmission Name Role Phone Dania Barksdale MD PCP Jose Huff DO Unavailable Encounter Details Care Team Description Date Type Department Kandy Gill MA Vitamin D deficiency; Kidney transplanted; Immunosuppression (HCC); Iron deficiency; Hyperglycemia 09/17/2019 Orders Only [facility] [address] [address] Social History Date Tobacco Use Types Packs/Day [...] Status Date of Assessment Functional Status Response 08/20/2019 Does the patient have a hearing impairment: No 08/20/2019 Does the patient have a visual impairment: Yes 08/20/2019 Does the patient have impaired ambulation: No 08/20/2019 Does the patient have an activity of daily living No (ADL) impairment: 08/20/2019 Does the patient have an instrumental activity of No daily living (IADL) impairment: Date of Assessment Cognitive Status Response 08/20/2019 Does the patient have a cognitive impairment: No documented as of this encounter Plan of Treatment Care Team Description Date Type Specialty Berta Harrison MD [address] [place] [address] [phone] Doroteo Enamorado MD [address] [place] [address] [phone] 10/02/2019 Hospital Radiology Encounter documented as of this encounter Goals Goal Patient Associated Recent Progress Patient-Stat Aut hor Goal Type Problems ed? Recover from illness [facility] Rajani Ac RN documented as of this encounter Procedures Comments Procedure Name Priority Date/Time Associated Diag nosis PHOSPHORUS Routine 09/20/2019 Kidney transpla nted 7:31 AM CDT Immunosuppression (HCC) URINALYSIS MICROSCOPIC Routine 09/17/2019 Kidney transplanted REFLEX TO CULTURE 8:16 AM CDT Immunosuppression ( HCC) URINALYSIS DIPSTICK Routine 09/17/2019 Kidney tra nsplanted REFLEX TO CULTURE 8:16 AM CDT Immunosuppression ( HCC) IRON + BINDING CAPACITY + Routine 09/17/2019 Iron deficiency %SAT+ FERRITIN 8:16 AM CDT PROTEIN/CR RATIO,UR RAN Routine 09/17/2019 Kidney transplanted 8:16 AM CDT Immunosuppression (HCC) 25-OH VITAMIN D (D2 + D3) Routine 09/17/2019 Jennie min D deficiency 8:16 AM CDT CBC AND DIFF Routine 09/17/2019 Kidney transpla nted 8:16 AM CDT Immunosuppression (HCC) TRANSFERRIN Routine 09/17/2019 Iron deficiency 8:16 AM CDT MAGNESIUM Routine 09/17/2019 Kidney transpla nted 8:16 AM CDT Immunosuppression (HCC) HEMOGLOBIN A1C Routine 09/17/2019 Hyperglycemia 8:16 AM CDT COMPREHENSIVE METABOLIC Routine 09/17/2019 Kidney transplanted PANEL 8:16 AM CDT Immunosuppression ( HCC) documented in this encounter Results * PHOSPHORUS (09/20/2019 7:31 AM CDT) Phosphorus 2.5 [facility] INTERFACE Specimen Blood Narrative Performed At LABDE INTERFACE Outside Lab Verified by Kandy crowe 09/20/2019. Performing Organization Address [facility] Ph one Number LABDE INTERFACE * TRANSFERRIN (09/17/2019 8:16 AM CDT) Transferrin 171 (L) 200 - 370 ug/dL LABDE INTERFAC E Specimen Blood Narrative Performed At [facility] INTERFACE Outside Lab Verified by Kandy crowe 09/17/2019. Performing Organization Address [facility] Ph one Number LABDE INTERFACE * HEMOGLOBIN A1C (09/17/2019 8:16 AM CDT) Hemoglobin A1C 5.80 LAB[facility] INTERFACE Specimen Blood Narrative Performed At LAB[facility] INTERFACE Outside Lab Verified by Kandy crowe 09/17/2019. Performing Organization Address [facility] one Number LABDE INTERFACE * IRON + BINDING CAPACITY + %SAT+ FERRITIN (09/17/2019 8:16 AM CDT) Iron 99 70 - 200 ug/dL LAB[facility] INTERFACE Iron 214 (L) 273 - 456 ug/dL LABDE INTERFAC E Binding-TIBC % Saturation 46.32 15.00 - 55.00 % LABDE INTERFAC E Specimen Blood Narrative Performed At LABDE INTERFACE Outside Lab Verified by Kandy crowe 09/17/2019. Performing Organization Address [facility] one Number LABDE INTERFACE * URINALYSIS DIPSTICK REFLEX TO CULTURE (09/17/2019 8:16 AM CDT) Color,UA Yellow Lt. Yellow [facility] INTERFACE Turbidity,UA Clear [facility] INTERFACE Glucose,UA Trace (A) Negative [facility] INTERFACE Bilirubin,UA Negative Negative [facility] INTERFACE Ketones,UA Negative Negative [facility] INTERFACE Specific 1.025 1.000 - 1.030 LABDE INTERFACE [place]-Urine Blood,UA 1+ (A) Negative LAB[facility] INTERFACE pH,UA 5.5 [facility] INTERFACE Protein,UA 1+ (A) Negative [facility] INTERFACE Urobilinogen,UA 0.2 [facility] INTERFACE Nitrite,UA Negative LABDE INTERFACE Leukocytes,UA Negative [facility] INTERFACE Specimen Urine Narrative Performed At LABDE INTERFACE Outside Lab Verified by Kandy crowe 09/17/2019. Performing Organization Address City/State/[facility] Ph one Number LABDE INTERFACE * URINALYSIS MICROSCOPIC REFLEX TO CULTURE (09/17/2019 8:16 AM CDT) WBCs,UA Negative Negative [facility] INTERFACE RBCs,UA 0-2 (A) [facility] INTERFACE Bacteria,UA Negative LAB[facility] INTERFACE Squamous None /HPF [facility] INTERFACE Epithelial Cells Specimen Urine Narrative Performed At LABDE INTERFACE Outside Lab Verified by Kandy crowe 09/17/2019. Performing Organization Address [facility] Ph one Number LABDE INTERFACE * MAGNESIUM (09/17/2019 8:16 AM CDT) Magnesium 1.9 1.6 - 2.6 mg/dL LABDE INTERFAC E Specimen Blood Narrative Performed At LABDE INTERFACE Outside Lab Verified by Kandy crowe 09/17/2019. Performing Organization Address City/[facility] Ph one Number LABDE INTERFACE * COMPREHENSIVE METABOLIC PANEL (09/17/2019 8:16 AM CDT) Sodium 143 134 - 148 [facility] INTERFACE Potassium 4.1 3.5 - 5.3 [facility] INTERFACE Chloride 117 (H) 95 - 114 [facility] INTERFACE CO2 18 (L) 22 - 33 [facility] INTERFACE Anion Gap 12 6 - 14 [facility] INTERFACE Glucose 31 (LL) 70 - 110 mg/dL [facility] INTERFACE Blood Urea 26 (H) 5 - 25 mg/dL [facility] INTERFACE Nitrogen Creatinine 2.08 (H) 0.50 - 1.50 mg/dL LABDE INTERF RAMON Calcium 9.0 8.3 - 10.4 mg/dL LABDE INTERFA CE Alk Phosphatase 105 35 - 130 U/L LABDE INTERFAC E AST (SGOT) 22 2 - 40 U/L [facility] INTERFACE ALT (SGPT) 16 6 - 45 U/L LAB[facility] INTERFACE Total Bilirubin 0.2 0.2 - 1.2 mg/dL LABDE INTERFA CE Total Protein 6.5 6.0 - 8.3 g/dL LABDE INTERFACE Albumin 4.4 3.6 - 5.1 g/dL LABDE INTERFACE eGFR Non 34 (L) >59 LAB[facility] INTERFACE Specimen Blood Narrative Performed At LABDE INTERFACE Outside Lab Verified by Kandy crowe 09/17/2019. Performing Organization Address City/[facility] Ph one Number LABDE INTERFACE * CBC AND DIFF (09/17/2019 8:16 AM CDT) White Blood 4.77 (L) 5.00 - 10.00 LAB[facility] INTERFACE Cells RBC 3.97 (L) 4.20 - 5.40 LAB[facility] INTERFACE Hemoglobin 12.5 (L) 14.0 - 17.0 LAB[facility] INTERFACE Hematocrit 38.1 (L) 42.0 - 52.0 % LAB[facility] INTERFACE MCV 96.0 80.0 - 97.0 fL LAB[facility] INTERFACE MCH 31.5 (H) 27.0 - 31.2 pg LABDE INTERFACE MCHC 32.8 32.0 - 36.0 g/dL LABDE INTERFA CE Platelet Count 135 (L) 150 - 400 K/uL LAB[facility] INTERFACE RDW 13.3 LABDE INTERFACE Absolute 3.70 2.00 - 6.90 K/uL LABDE INTERFA CE Neutrophil Count Neutrophils 77.6 37.0 - 80.0 % LAB[facility] INTERFACE Absolute Lymph 0.43 (L) 0.60 - 3.40 LABDE INTERFACE Count Lymphocytes 9.0 (L) 10.0 - 50.0 LABDE INTERFACE Absolute 0.5 0.0 - 0.9 K/uL LABDE INTERFACE Monocyte Count Monocytes 11.1 0.0 - 12.0 % LABDE INTERFACE Absolute 0.1 LABDE INTERFACE Eosinophil Count Eosinophil 2.1 0.0 - 7.0 % LABDE INTERFACE Absolute 0.0 LABDE INTERFACE Basophil Count Basophil 0.20 LABDE INTERFACE MPV 10.8 (H) 7.4 - 10.0 LABDE INTERFACE Specimen Blood Narrative Performed At LABDE INTERFACE Outside Lab Verified by Kandy crowe 09/17/2019. Performing Organization Address City/State/[facility] Ph one Number LABDE INTERFACE * PROTEIN/CR RATIO,UR RAN (09/17/2019 8:16 AM CDT) Protein, Random 44 (H) 0 - 20 LABDE INTERFAC E Creatinine, 121.5 (H) 0.0 - 50.0 mg/dl LABDE INTERFA CE Random Protein/CR 0.36 LABDE INTERFACE ratio Specimen Urine - Urine Narrative Performed At LABDE INTERFACE Outside Lab Verified by Kandy crowe 09/17/2019. Performing Organization Address [facility] one Number LABDE INTERFACE * 25-OH VITAMIN D (D2 + D3) (09/17/2019 8:16 AM CDT) Vitamin 28.40 25.00 - 100.00 ng/mL LABDE INT ERFACE D(25-OH)Total Specimen Blood Narrative Performed At LABDE INTERFACE Outside Lab Verified by Kandy crowe 09/17/2019. Performing Organization Address [facility] one Number LABDE INTERFACE documented in this encounter Visit Diagnoses Diagnosis Vitamin D deficiency Unspecified vitamin D deficiency Kidney transplanted Kidney replaced by transplant Immunosuppression (HCC) Unspecified disorder of immune mechanis m Iron deficiency Iron deficiency anemia, unspecified Hyperglycemia Other abnormal glucose documented in this encounter
--- OUTSIDE RECORDS SUMMARY | 2019-09-28 08:39 | XMS REPORT | Encounter Summary ---
Author Author [facility] Organization [facility] Address Unknown Phone Unavailable Care Team Providers Care Tow Boat Captain Name Role Phone Dania Barksdale MD PCP Jose Huff DO Unavailable Reason for Visit * Reason Comments Critical Result Encounter Details Care Team Description Date Type Department Kostas Courtney RN Critical Result 09/17/[address] [address] Social History Date Tobacco Use Types Packs/Day [...] history available. Date Recorded COVID-19 Exposure Response 08/20/2019 9:24 AM CDT In the last month, have [...] encounter Miscellaneous Notes * Telephone Encounter - Kostas Courtney RN - 09/17/2019 11:08 AM CDT Received incoming call from local lab. Blood sugar this morning was critically l ow at 31. Call made to patient. He reports his blood sugar was 60 this AM and now is 238. Ruthie Trinidad RN will notify Dr. Harrison. documented in this encounter Plan of Treatment Care Team Description Date Type Specialty Berta Harrison MD [address] [place] [address] Doroteo Enamorado MD [address] [place] [address] 10/02/2019 Hospital Radiology Encounter documented as of this encounter Goals Goal Patient Associated Recent Progress Patient-Stat Aut hor Goal Type Problems ed? Recover from illness [facility] Rajani Ac, JAIME documented as of this encounter Visit Diagnoses Not on filedocumented in this encounter
--- OUTSIDE RECORDS SUMMARY | 2019-09-28 08:39 | XMS REPORT | Encounter Summary ---
Author Author [facility] Organization [facility] Address Unknown Phone Unavailable Care Team Providers Care Metal Weather Stripper Name Role Phone Dania Barksdale MD PCP Jose Huff DO Unavailable Encounter Details Care Team Description Date Type Department Cristian Malone MA 09/19/2019 Telephone The [facility] [address] [address] Social History Date Tobacco Use Types Packs/Day [...] Date Type Specialty Berta Harrison MD [address] [place] [address] [phone] Doroteo Enamorado MD [address] [place] [address] [phone] 10/02/2019 Hospital Radiology Encounter documented as of this encounter Goals Goal Patient Associated Recent Progress Patient-Stat Aut hor Goal Type Problems ed? Recover from illness [facility] Rajani Ac RN documented as of this encounter Visit Diagnoses Not on filedocumented in this encounter
--- OUTSIDE RECORDS SUMMARY | 2019-09-28 08:39 | XMS REPORT | Encounter Summary ---
Author Author [facility] Organization [facility] Address Unknown Phone Unavailable Care Team Providers Care Body Builder Apprentice Name Role Phone Dania Barksdale MD PCP Jose Huff DO Unavailable Reason for Visit * Reason Comments Results Prograf - no change Encounter Details Care Team Description Date Type Department Lucia Trinidad, RN Results (Prograf - no change) 09/07/[address] [address] Social History Date Tobacco Use Types Packs/Day [...] Notes * Telephone Encounter - Lucia Trinidad, JAIME - 09/07/2019 11:27 AM CDT Reviewed pt's labs from 09/03 and 09/05. Creat stable at 2.3 and 2.26. Tac level t herapeutic at 7.8 on 09/03, level pending from 09/05. Called pt with lab results. Pt states BP has been elevated. This week BP 150-160s, normally 120s. Discussed with Dr. Idania Harrison and will start Nifediipine 30mg daily. Script ordered and pt u pdated. Pt will monitor BPs and notify [facility] if SBP <100. Pt will repeat labs on Tuesday, 09/09. documented in this encounter Plan of Treatment Care Team Description Date Type Specialty Berta Harrison MD [address] [place] [address] Doroteo Enamorado MD [address] [place] [address] 10/02/2019 Hospital Radiology Encounter documented as of this encounter Goals Goal Patient Associated Recent Progress Patient-Stat Aut hor Goal Type Problems ed? Recover from illness [facility] Rajani Ac RN documented as of this encounter Visit Diagnoses Not on filedocumented in this encounter
--- OUTSIDE RECORDS SUMMARY | 2019-09-28 08:39 | XMS REPORT | Encounter Summary ---
Author Author [facility] Organization [facility] Address Unknown Phone Unavailable Care Team Providers Care Glue Maker Name Role Phone Dania Barksdale MD PCP Jose Huff DO Unavailable Reason for Visit * Reason Comments Results Prograf - no change Encounter Details Care Team Description Date Type Department Lucia Trinidad, RN Results (Prograf - no change) 09/13/2019 Telephone The [address] [address] Social History Date Tobacco Use Types Packs/Day [...] Telephone Encounter - Lucia Trinidad, RN - 09/13/2019 2:40 PM CDT Reviewed pt's labs from 09/09 and 09/12. Creat 2.52 and 2.1 respectively. Tac level therapeutic at 9.8 on 09/09, level from 09/12 pending. No changes to medications ind icated. Pt started nifedipine for BP last week. BPs this week have been 140-150s , will discuss during pt's TH visit on 09/19. Pt called and notified of results, no questions or concerns. Pt will repeats labs on Tuesday, 09/16. documented in this encounter Plan of Treatment Care Team Description Date Type Specialty Berta Harrison MD [address] [place] [address] Doroteo Enamorado MD [address] [place] [address] 10/02/2019 Hospital Radiology Encounter documented as of this encounter Goals Goal Patient Associated Recent Progress Patient-Stat Aut hor Goal Type Problems ed? Recover from illness Hospital No Rajani Gallego RN documented as of this encounter Results * PROTIME INR (PT) (09/17/2019 8:16 AM CDT) Protime 11.4 9.9 - 12.8 LABDE INTERFACE INR 1.0 1.0 - 4.0 LABDE INTERFACE Specimen Blood Narrative Performed At LABDE INTERFACE Outside Lab Verified by Kandy crowe 09/17/2019. 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
--- OUTSIDE RECORDS SUMMARY | 2019-09-28 08:39 | XMS REPORT | Encounter Summary ---
Author Author [facility] Organization [facility] Address Unknown Phone Unavailable Care Team Providers Care Self Contained Behavior Unit Teacher Name Role Phone Dania Barksdale MD PCP Jose Huff DO Unavailable Encounter Details Care Team Description Date Type Department Federico Phillips Kidney transplanted; Immunosuppression (HCC) 09/14/2019 Orders Only The [facility] [address] [address] Social History Date Tobacco Use [...] Date Type Specialty Berta Harrison MD [address] [place] [address] [phone] Doroteo Enamorado MD [address] [place] [address] 10/02/2019 Hospital Radiology Encounter documented as of this encounter Goals Goal Patient Associated Recent Progress Patient-Stat Aut hor Goal Type Problems ed? Recover from illness [facility] Rajani Ac RN documented as of this encounter Procedures Comments Procedure Name Priority Date/Time Associated Diag nosis TACROLIMUS LEVEL(FK506) Routine 09/10/2019 Kidney transplanted 9:52 AM CDT Immunosuppression (HCC) documented in this encounter Results * TACROLIMUS LEVEL(FK506) (09/10/2019 9:52 AM CDT) Tacrolimus 9.8 LABDE INTERFACE Specimen Blood Narrative Performed At LABDE INTERFACE Outside Lab Verified by Federico Phillips on 09/14/2019. 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
--- OUTSIDE RECORDS SUMMARY | 2019-09-28 08:39 | XMS REPORT | Encounter Summary ---
Author Author [facility] Organization [facility] Address Unknown Phone Unavailable Care Team Providers Care Station Captain Name Role Phone Dania Barksdale MD PCP Jose Huff DO Unavailable Encounter Details Care Team Description Date Type Department Kandy Gill MA Kidney transplanted; Immunosuppression (HCC) 09/06/2019 Orders Only [facility] [address] [address] Social History Date Tobacco Use [...] Date Type Specialty Berta Harrison MD [address] [place] [address] [phone] Doroteo Enamorado MD [address] [place] [address] [phone] 10/02/2019 Hospital Radiology Encounter documented as of this encounter Goals Goal Patient Associated Recent Progress Patient-Stat Aut hor Goal Type Problems ed? Recover from illness [facility] Rajani Ac RN documented as of this encounter Procedures Comments Procedure Name Priority Date/Time Associated Diag nosis PROTEIN/CR RATIO,UR RAN Routine 09/06/2019 Kidney transplanted 9:19 AM CDT Immunosuppression (HCC) CBC AND DIFF Routine 09/06/2019 Kidney transpla nted 9:19 AM CDT Immunosuppression ([facility]) URIC ACID Routine 09/06/2019 Kidney transpla nted 9:19 AM CDT Immunosuppression ([facility]) PHOSPHORUS Routine 09/06/2019 Kidney transpla nted 9:19 AM CDT Immunosuppression ([facility]) MAGNESIUM Routine 09/06/2019 Kidney transpla nted 9:19 AM CDT Immunosuppression (HCC) COMPREHENSIVE METABOLIC Routine 09/06/2019 Kidney transplanted PANEL 9:19 AM CDT Immunosuppression ( [facility]) URINALYSIS MICROSCOPIC Routine 09/04/2019 Kidney transplanted REFLEX TO CULTURE 7:47 AM CDT Immunosuppression ( [facility]) URINALYSIS DIPSTICK Routine 09/04/2019 Kidney tra nsplanted REFLEX TO CULTURE 7:47 AM CDT Immunosuppression ( [facility]) documented in this encounter Results * URIC ACID (09/06/2019 9:19 AM CDT) Uric Acid 6.0 2.6 - 7.2 mg/dL [facility] E Specimen Blood Narrative Performed At [facility] Outside Lab Verified by Kandy crowe 09/06/2019. Performing Organization Address City/State/Zipcode Ph one Number [facility] * PHOSPHORUS (09/06/2019 9:19 AM CDT) Phosphorus 3.3 mg/dL [facility] Specimen Blood Narrative Performed At [facility] Outside Lab Verified by Kandy crowe 09/06/2019. Performing Organization Address [facility] one Number [facility] INTERFACE * MAGNESIUM (09/06/2019 9:19 AM CDT) Magnesium 2.0 1.6 - 2.6 mg/dL [facility] E Specimen Blood Narrative Performed At [facility] Outside Lab Verified by Kandy crowe 09/06/2019. Performing Organization Address [facility] one Number [facility]DE INTERFACE * COMPREHENSIVE METABOLIC PANEL (09/06/2019 9:19 AM CDT) Pathologist [facility] Sodium 140 134 - 148 mmol/L [facility] CE Potassium 5.2 3.5 - 5.3 mmol/L [facility] Chloride 113 95 - 114 mmol/L [facility] CO2 18 (L) 22 - 33 [facility] Anion Gap 14 [facility] Glucose 63 (L) 70 - 110 mg/dL [facility] Blood Urea 34 (H) 5 - 25 mg/dL [facility] Nitrogen Creatinine 2.26 (H) 0.50 - 1.50 [facility] Calcium 8.7 [facility] Alk Phosphatase 111 35 - 130 U/L [facility] E AST (SGOT) 28 U/L [facility] ALT (SGPT) 20 6 - 45 U/L [facility] Total Bilirubin 0.3 0.2 - 1.2 mg/dL [facility] CE Total Protein 6.2 6.0 - 8.3 g/dL [facility] Albumin 4.4 [facility] eGFR Non 31 (L) >59 mL/min/1.73m2 [facility] [place] Specimen Blood Narrative Performed At [facility] INTER[facility] Outside Lab Verified by Kandy crowe 09/06/2019. Performing Organization Address [facility] one Number [facility]DE INTERFACE * CBC AND DIFF (09/06/2019 9:19 AM CDT) Pathologist [facility] White Blood 6.15 5.00 - 10.00 K/uL [facility] Cells RBC 3.87 (L) 4.20 - 5.40 [facility] Hemoglobin 12.3 (L) 14.0 - 17.0 [facility] Hematocrit 38.1 (L) 42.0 - 52.0 [facility] MCV 98.4 (H) 80.0 - 97.0 [facility] MCH 31.8 (H) 27.0 - 31.2 pg [facility] MCHC 32.3 32.0 - 36.0 g/dL [facility] CE Platelet Count 141 (L) 150 - 400 K/uL [facility] RDW 13.4 11.6 - 14.8 % [facility] Absolute 4.86 2.00 - 6.90 K/uL [facility] CE Neutrophil Count Neutrophils 79.1 37.0 - 80.0 % [facility] Absolute Lymph 0.47 (L) 0.60 - 3.40 [facility] Count Lymphocytes 7.6 (L) 10.0 - 50.0 % [facility] Absolute 0.7 0.0 - 0.9 K/uL [facility] Monocyte Count Monocytes 10.9 0.0 - 12.0 % [facility] Absolute 0.1 0.0 - 0.7 K/uL [facility] Eosinophil Count Eosinophil 2.1 0.0 - 7.0 % [facility] Absolute 0.0 0.0 - 0.2 K/uL [facility] Basophil Count Basophil 0.30 0.00 - 2.50 % [facility] MPV 11.5 (H) 7.4 - 10.0 [facility] Specimen Blood Narrative Performed At [facility] Outside Lab Verified by Kandy crowe 09/06/2019. Performing Organization Address City/[facility] Ph one Number LABDE INTERFACE * PROTEIN/CR RATIO,UR RAN (09/06/2019 9:19 AM CDT) Protein, Random 58 (H) 0 - 20 [facility] E Creatinine, 123.0 (H) 0.0 - 50.0 mg/dl [facility] INTER[facility] CE Random Protein/CR 0.47 [facility] ratio Specimen Urine - Urine Narrative Performed At [facility] Outside Lab Verified by Kandy crowe 09/06/2019. Performing Organization Address City/[facility] Ph one Number LABDE INTERFACE * URINALYSIS MICROSCOPIC REFLEX TO CULTURE (09/04/2019 7:47 AM CDT) WBCs,UA Negative [facility] RBCs,UA 0-2 (A) /HPF [facility] Bacteria,UA Negative [facility] Squamous 0-5 (A) [facility] Epithelial Cells Specimen Urine Narrative Performed At [facility] Outside Lab Verified by Kandy crowe 09/06/2019. Performing Organization Address [facility] Ph one Number LABDE INTERFACE * URINALYSIS DIPSTICK REFLEX TO CULTURE (09/04/2019 7:47 AM CDT) Color,UA Yellow Yellow [facility] Turbidity,UA Clear [facility] Glucose,UA Negative Negative [facility] Bilirubin,UA Negative Negative [facility] Ketones,UA Negative Negative [facility] Specific 1.025 1.000 - 1,030 LAB[facility] INTERFACE [place]-Urine Blood,UA 1+ (A) Negative [facility] INTERFACE pH,UA 5.5 [facility] Protein,UA 2+ (A) Negative [facility] Urobilinogen,UA 0.2 (A) 0.2 - 1.0 [facility] INTER[facility]AC E Nitrite,UA Negative [facility] Leukocytes,UA Negative Negative [facility] Specimen Urine Narrative Performed At [facility] Outside Lab Verified by Kandy crowe 09/06/2019. Performing Organization Address City/[facility] Ph one Number LABDE INTERFACE 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
--- OUTSIDE RECORDS SUMMARY | 2019-09-28 08:39 | XMS REPORT | Encounter Summary ---
Author Author [facility] Organization [facility] Address Unknown Phone Unavailable Care Team Providers Care Base Cloth Inspector Name Role Phone Dania Barksdale MD PCP Jose Huff DO Unavailable Encounter Details Care Team Description Date Type Department Kandy Gill MA Kidney transplanted; Immunosuppression (HCC) 09/14/2019 Orders Only The [facility] [address] [address] Social History Date Tobacco Use [...] Date Type Specialty Berta Harrison MD [address] [place] [address] [phone] Doroteo Enamorado MD [address] [place], [place] [id number] 10/02/2019 Hospital Radiology Encounter documented as of this encounter Goals Goal Patient Associated Recent Progress Patient-Stat Aut hor Goal Type Problems ed? Recover from illness [facility] Rajani Ac RN documented as of this encounter Procedures Comments Procedure Name Priority Date/Time Associated Diag nosis PROTIME INR (PT) Routine 09/17/2019 Kidney transp lanted 8:16 AM CDT PHOSPHORUS Routine 09/17/2019 Kidney transpla nted 8:16 AM CDT Immunosuppression (HCC) URINALYSIS MICROSCOPIC Routine 09/13/2019 Kidney transplanted REFLEX TO CULTURE 8:25 AM CDT Immunosuppression ( [facility]) URINALYSIS DIPSTICK Routine 09/13/2019 Kidney tra nsplanted REFLEX TO CULTURE 8:25 AM CDT Immunosuppression ( [facility]) PROTEIN/CR RATIO,UR RAN Routine 09/13/2019 Kidney transplanted 8:25 AM CDT Immunosuppression (HCC) CBC AND DIFF Routine 09/13/2019 Kidney transpla nted 8:25 AM CDT Immunosuppression (HCC) URIC ACID Routine 09/13/2019 Kidney transpla nted 8:25 AM CDT Immunosuppression (HCC) MAGNESIUM Routine 09/13/2019 Kidney transpla nted 8:25 AM CDT Immunosuppression (HCC) COMPREHENSIVE METABOLIC Routine 09/13/2019 Kidney transplanted PANEL 8:25 AM CDT Immunosuppression ( [facility]) documented in this encounter Results * PHOSPHORUS (09/17/2019 8:16 AM CDT) Phosphorus 2.3 (L) 2.5 - 4.8 mg/dL [facility] INTERFAC E Specimen Blood Narrative Performed At [facility] INTERFACE Outside Lab Verified by Kandy crowe 09/17/2019. Performing Organization Address [facility] Ph one Number LABDE INTERFACE * PROTIME INR (PT) (09/17/2019 8:16 AM CDT) Protime 11.4 9.9 - 12.8 [facility] INTER[facility] INR 1.0 1.0 - 4.0 [facility] INTER[facility] Specimen Blood Narrative Performed At [facility] INTER[facility] Outside Lab Verified by Kandy crowe 09/17/2019. Performing Organization Address [facility] Ph one Number LABDE INTERFACE * MAGNESIUM (09/13/2019 8:25 AM CDT) Magnesium 1.9 [facility] Specimen Blood Narrative Performed At [facility] INTER[facility] Outside Lab Verified by Kandy crowe 09/14/2019. Performing Organization Address [facility] one Number LABDE INTERFACE * PROTEIN/CR RATIO,UR RAN (09/13/2019 8:25 AM CDT) Protein, Random 44 (H) 0 - 20 [facility] INTER[facility] E Creatinine, 82.5 (H) 0.0 - 50.0 mg/dl [facility] INTERFA CE Random Protein/CR 0.53 [facility] INTER[facility] ratio Specimen Urine - Urine Narrative Performed At [facility] INTER[facility] Outside Lab Verified by Kandy crowe 09/14/2019. Performing Organization Address [facility] one Number LABDE INTERFACE * URINALYSIS MICROSCOPIC REFLEX TO CULTURE (09/13/2019 8:25 AM CDT) WBCs,UA 0-2 (A) /HPF [facility] RBCs,UA 2-5 (A) [facility] Specimen Urine Narrative Performed At [facility] INTER[facility] Outside Lab Verified by Kandy crowe 09/14/2019. Performing Organization Address [facility] Ph one Number LABDE INTERFACE * URINALYSIS DIPSTICK REFLEX TO CULTURE (09/13/2019 8:25 AM CDT) Color,UA Yellow Yellow [facility] Turbidity,UA Clear [facility] Glucose,UA Negative Negative [facility] Bilirubin,UA Negative Negative [facility] Ketones,UA Negative Negative [facility] Specific 1.020 1.000 - 1,030 LAB[facility] INTERFACE [place]-Urine Blood,UA 1+ (A) Negative [facility] INTERFACE pH,UA 5.5 [facility] INTER[facility] Protein,UA 2+ (A) Negative [facility] Urobilinogen,UA 0.2 [facility] Nitrite,UA Negative [facility] Leukocytes,UA Negative Negative [facility] INTER[facility] Specimen Urine Narrative Performed At [facility] INTERFACE Outside Lab Verified by Kandy crowe 09/14/2019. Performing Organization Address City/State/[facility] Ph one Number LABDE INTERFACE * URIC ACID (09/13/2019 8:25 AM CDT) Uric Acid 5.5 2.6 - 7.2 mg/dL [facility] INTERFAC E Specimen Blood Narrative Performed At [facility] INTERFACE Outside Lab Verified by Kandy crowe 09/14/2019. Performing Organization Address [facility] Ph one Number LABDE INTERFACE * COMPREHENSIVE METABOLIC PANEL (09/13/2019 8:25 AM CDT) Sodium 142 [facility] Potassium 4.5 [facility] Chloride 116 (H) 95 - 114 [facility] CO2 18 (L) 22 - 33 [facility] Anion Gap 13 6 - 14 [facility] Glucose 85 70 - 110 mg/dL [facility] Blood Urea 29 (H) 5 - 25 mg/dL [facility] Nitrogen Creatinine 2.13 (H) 0.50 - 1.50 [facility] Calcium 8.7 8.3 - 10.4 mg/dL [facility] INTERFA CE Alk Phosphatase 105 35 - 130 U/L [facility] INTERFAC E AST (SGOT) 25 U/L [facility] ALT (SGPT) 20 6 - 45 U/L [facility] INTER[facility] Total Bilirubin 0.3 0.2 - 1.2 mg/dL [facility] INTERFA CE Total Protein 6.4 6.0 - 8.3 g/dL [facility] INTER[facility] Albumin 4.4 3.6 - 5.1 [facility] INTERFACE eGFR Non 33 (L) >59 mL/min [facility] INTER[facility] Specimen Blood Narrative Performed At [facility] INTERFACE Outside Lab Verified by Kandy crowe 09/14/2019. Performing Organization Address City/State/[facility] Ph one Number LAB[facility] INTERFACE * CBC AND DIFF (09/13/2019 8:25 AM CDT) White Blood 4.82 (L) 5.00 - 10.00 K/uL [facility]F RAMON Cells RBC 3.60 (L) 4.20 - 5.40 M/uL [facility] INTERFA CE Hemoglobin 11.4 (L) 14.0 - 17.0 LAB[facility] INTERFACE Hematocrit 35.1 (L) 42.0 - 52.0 LAB[facility] INTERFACE MCV 97.5 (H) 80.0 - 97.0 LAB[facility] INTERFACE MCH 31.7 (H) 27.0 - 31.2 pg [facility] INTERFACE MCHC 32.5 32.0 - 36.0 g/dL [facility] INTERFA CE Platelet Count 139 (L) 150 - 400 K/uL [facility] INTERFACE RDW 13.4 11.6 - 14.8 % LAB[facility] INTERFACE Absolute 3.92 2.00 - 6.90 K/uL [facility] INTERFA CE Neutrophil Count Neutrophils 81.3 (H) 37.0 - 80.0 % [facility] INTERFACE Absolute Lymph 0.25 (L) 0.60 - 3.40 [facility] INTERFACE Count Lymphocytes 5.2 (L) 10.0 - 50.0 % [facility] INTERFACE Absolute 0.5 0.0 - 0.9 K/uL [facility] INTERFACE Monocyte Count Monocytes 10.4 0.0 - 12.0 % LAB[facility] INTERFACE Absolute 0.1 0.0 - 0.7 K/uL LAB[facility] INTERFACE Eosinophil Count Eosinophil 2.7 0.0 - 7.0 % LAB[facility] INTERFACE Absolute 0.0 [facility] INTERFACE Basophil Count Basophil 0.40 LAB[facility] INTERFACE MPV 11.5 (H) 7.4 - 10.0 [facility] INTERFACE Specimen Blood Narrative Performed At [facility] INTERFACE Outside Lab Verified by Kandy Gill o sebastien 09/14/2019. 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
--- OUTSIDE RECORDS SUMMARY | 2019-09-28 08:39 | XMS REPORT | Encounter Summary ---
Author Author [facility] Organization [facility] Address Unknown Phone Unavailable Care Team Providers Care Retail Banking Manager Name Role Phone Dania Barksdale MD PCP Jose Huff DO Unavailable Reason for Visit * Reason Comments s/p Kidney Transplant Encounter Details Care Team Description Date Type Department Berta Harrison MD [address] [place], [place] [id number] Kidney transplanted (Primary Dx) 09/20/2019 Office Visit [facility] [address] [id number] Social History Date Tobacco Use Types Packs/Day [...] / COVID-19? documented as of this encounter Last Filed Vital Signs Reading Time Taken Comments Vital Sign 139/76 09/20/2019 10:01 AM CDT Blood Pressure 83 09/20/2019 10:01 AM CDT Pulse 36.1 C (97 F) 09/20/2019 9:56 AM CDT Temperature - - Respiratory Rate - - Oxygen Saturation - - Inhaled Oxygen Concentration 91.2 kg (201 lb) 09/20/2019 9:56 AM CDT Weight 167.6 cm (5' 6") 09/20/2019 9:56 AM CDT Height 32.44 09/20/2019 9:56 AM CDT Body Mass Index documented in this encounter Functional Status Date of Assessment [...] impairment: No documented as of this encounter Patient Instructions * Patient Instructions* Lucia Trinidad RN - 09/20/2019 10:30 AM CDT Return to see Dr. Berta Harrison in 6 weeks. Repeat labs Twice a week Further testing needs: None today Medication changes: Increase Bactrim to daily, Valcyte 450mg daily. documented in this encounter Progress Notes * Berta Harrison MD - 09/20/2019 10:30 AM CDT [facility] Date of Service: 09/20/19 Stef Pace [id number] TRANSPLANT SYNOPSIS: Date: 05/27/2019, ESRD from type 1 DM Donor: DCD from a female donor in early 50's KDPI: 60% CPRA: 0% DSA: none Induction: Thymo for steroid avoidance, continued on steroid given rise in Cr af ter initial downtrend CMV status: D+/R- Post-op course: DGF, last HD was 06/04/19 Ureteral stent removal: July 08 Baseline Scr: TBD Referring Cotton Picker Operator: Malathi Owen [address] [place] [address] [place] [address] HPI We had the pleasure of meeting Mr. Pace in the Renal Transplant Clinic for routine evaluation of his renal transplant. Feels well today. Denies chest pain, shortness of breath, Overcome from Flu symp toms. No Sick contact, no travel. No dysuria, hematuria, abdominal pain, nausea, V. tolerating diet and compliant with medications. Requesting refills. 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) History of ulcers, ports endoscopy done at [facility] in [place] in 2015, Surgical History: Procedure Laterality Date ALLOTRANSPLANTATION KIDNEY FROM NON LIVING DONOR WITHOUT RECIPIENT NEPHRECTO MY N/A 05/27/2019 Performed by Melecio Nielsen MD at [facility] OR [place] CYSTO W/SIMPLE REMOVAL STONE & STENT 07/11/2019 Social History Socioeconomic History Marital status: Spouse name: Not on file Number of children: Not on file Years of education: Not on file Highest education level: Not on file Occupational History Not on file Tobacco Use Smoking status: Former Smoker Packs/day: 2.00 Years: 30.00 Pack years: 60.00 Last attempt to quit: 12/17/2001 Years since quittin.7 Smokeless tobacco: Never Used Substance and Sexual Activity Alcohol use: Yes Comment: quit 15 years ago Drug use: Yes Comment: quit 15 years ago Sexual activity: Not on file Other Topics Concern Not on file Social History Narrative Not on file No family history on file. Allergies Allergen Reactions Penicillins ANAPHYLAXIS Codeine VOMITING Current Medications: Current Outpatient Medications: acetaminophen (TYLENOL) 325 mg tablet, Take two tablets by mouth every 4 ho urs as needed., Disp: 100 tablet, Rfl: 1 aspirin EC 81 mg tablet, Take one tablet by mouth daily. Take with food., D isp: 90 tablet, Rfl: 1 ergocalciferol (VITAMIN D-2) 1,250 mcg (50,000 unit) capsule, Take one caps ule by mouth every 7 days., Disp: 12 capsule, Rfl: 0 ferrous sulfate (FEOSOL) 325 mg (65 mg iron) tablet, Take one tablet by twice daily. Take on an empty stomach at least 1 hour before or 2 hours after food., Disp: 180 tablet, Rfl: 3 fluoxetine (PROZAC) 40 mg capsule, Take 40 mg by mouth daily., Disp: , Rfl: insulin pump -ASPART- Patients Own, by [employer] Pump route Three times daily wi th meals and as needed., Disp: , Rfl: liraglutide (VICTOZA) 0.6 mg/0.1 mL (18 mg/3 mL) injection pen, Inject 0.6 mg under the skin daily., Disp: , Rfl: [facility] Use to monitor blood pressure as [place]., Disp: 1 each, Rfl: [address] (MYFORTIC) 180 mg TbEC tablet, Take two tablets by mouth t wice daily., Disp: 120 tablet, Rfl: 11 NIFEdipine XL (PROCARDIA-XL) 30 mg tablet, Take one tablet by mouth daily., Disp: 90 tablet, Rfl: [address](+) (PRILOSEC) 40 mg capsule, Take 40 mg by mouth daily before breakfast., Disp: , Rfl: predniSONE (DELTASONE) 5 mg tablet, Take one tablet by mouth daily with del akfast., Disp: 30 tablet, Rfl: 11 pregabalin (LYRICA) 75 mg capsule, Take 75 mg by mouth three times daily., Disp: , Rfl: promethazine (PHENERGAN) 25 mg tablet, Take one tablet by mouth every 6 davis [address] as needed for Nausea or Vomiting., Disp: 30 tablet, Rfl: 0 tacrolimus (PROGRAF) 1 mg capsule, Take three capsules by mouth twice daily ., Disp: 180 capsule, Rfl: 11 tamsulosin (FLOMAX) 0.4 mg capsule, Take 0.4 mg by mouth daily. Do not jose guadalupe h, chew or open capsules. Take 30 minutes following the same meal each day., Dis p: , Rfl: traMADol (ULTRAM) 50 mg tablet, Take one tablet by mouth every 6 hours as n eeded for Pain., Disp: 30 tablet, Rfl: 0 traZODone (DESYREL) 100 mg tablet, Take 100 mg by mouth at bedtime daily., Disp: , Rfl: trimethoprim/sulfamethoxazole (BACTRIM SS) 80/400 mg tablet, Take one table t by mouth daily., Disp: 90 tablet, Rfl: 3 valGANciclovir (VALCYTE) 450 mg tablet, Take one tablet by mouth daily with breakfast., Disp: 90 tablet, Rfl: 3 VENTOLIN HFA 90 mcg/actuation aerosol inhaler, Inhale two puffs by mouth in to the lungs every 6 hours as needed for Wheezing or Shortness of Breath. Shake well before use., Disp: 54 g, Rfl: 0 Physical Exam: Vitals: 09/20/19 0956 09/20/19 1001 BP: (!) 141/80 139/76 BP Source: Arm, Right Upper Arm, Right Upper Patient Position: Sitting Standing Pulse: 83 83 Temp: 36.1 C (97 F) TempSrc: Oral Weight: 91.2 kg (201 lb) Height: 167.6 cm (66") Body mass index is 32.44 kg/m. General: NAD, A+Ox4, calm and pleasant. Appears to be stated age. HENT: Unremarkable, no oral lesions Neck: Normal ROM, no LAD, no JVD Lungs: Bilat. CTA but diminished [in bases] CV: RRR, S1, S2 without carotid bruit or murmur, no edema Abdomen: Soft, N/D, N/T without hepatosplenomegaly, Incision CDI Incision: Healing M/S: Normal ROM and strength Neuro: Nonfocal deficits without tremors Skin: No skin rash Psyc: Stable Laboratory studies: CMP: CMP Latest Ref Rng & Units 09/17/2019 09/13/2019 09/10/2019 09/06/2019 09/04/2019 NA 134 - 148 143 142 138 140 139 K 3.5 - 5.3 4.1 4.5 5.4(H) 5.2 5.0 CL 95 - 114 117(H) 116(H) 114 113 112 CO2 22 - 33 18(L) 18(L) 18(L) 18(L) 20(L) GAP 6 - 14 12 13 11 14 12 BUN 5 - 25 mg/dL 26(H) 29(H) 34(H) 34(H) 37(H) CR 0.50 - 1.50 mg/dL 2.08(H) 2.13(H) 2.52(H) 2.26(H) 2.30(H) GLUX 70 - 100 MG/DL - - - - - CA 8.3 - 10.4 mg/dL 9.0 8.7 8.8 8.7 9.0 TP 6.0 - 8.3 g/dL 6.5 6.4 6.5 6.2 6.0 ALB 3.6 - 5.1 g/dL 4.4 4.4 4.4 4.4 4.2 ALKP 35 - 130 U/L 105 105 111 111 110 ALT 6 - 45 U/L 16 20 20 20 18 TBILI 0.2 - 1.2 mg/dL 0.2 0.3 0.3 0.3 0.2 GFR >59 34(L) 33(L) 27(L) 31(L) 30(L) GFRAA >60 mL/min - - - - - No results found for: LIPASE No results found for: TAO CMV DNA Quant PCR Date Value 08/28/2019 Negative 08/15/2019 NEGATIVE 07/24/2019 CMV DNA NOT DETECTED [IU]/mL 06/28/2019 CMV DNA NOT DETECTED [IU]/mL 06/04/2019 CMV DNA NOT DETECTED [IU]/mL IU/mL CMV Blood (no units) Date Value 07/24/2019 <50 IU/mL The test method detects and quantitates CMV DNA using the Young RealTime assay, and is approved by the FDA for monitoring hematopoietic stem cell transplant patients who are undergoing anti-CMV therapy. Please correlate results with the clinical status of the patient. 06/28/2019 <50 IU/mL The test method detects and quantitates CMV DNA using the Young RealTime assay, and is approved by the FDA for monitoring hematopoietic stem cell transplant patients who are undergoing anti-CMV therapy. Please correlate results with the clinical status of the patient. 06/04/2019 <50 IU/mL The test method detects and quantitates CMV DNA using the Young RealTime assay, and is approved by the FDA for monitoring hematopoietic stem cell transplant patients who are undergoing anti-CMV therapy. Please correlate results with the clinical status of the patient. No results found for: COPIES No results found for: EBVDNAQT TACROLIMUS LEVEL: Tacrolimus (no units) Date Value 09/17/2019 8.4 09/13/2019 8.8 09/10/2019 9.8 09/06/2019 10.3 09/04/2019 7.8 08/30/2019 5.1 08/28/2019 10.1 08/23/2019 8.2 CBC with Diff: CBC with Diff Latest Ref Rng & Units 09/17/2019 09/13/2019 WBC 5.00 - 10.00 4.77(L) 4.82(L) RBC 4.20 - 5.40 3.97(L) 3.60(L) HGB 14.0 - 17.0 12.5(L) 11.4(L) HCT 42.0 - 52.0 % 38.1(L) 35.1(L) MCV 80.0 - 97.0 fL 96.0 97.5(H) MCH 27.0 - 31.2 pg 31.5(H) 31.7(H) MCHC 32.0 - 36.0 g/dL 32.8 32.5 RDW - 13.3 13.4 PLT 150 - 400 K/uL 135(L) 139(L) MPV 7.4 - 10.0 10.8(H) 11.5(H) NEUT 37.0 - 80.0 % 77.6 81.3(H) ANC 2.00 - 6.90 K/uL 3.70 3.92 LYMA 24 - 44 % - - ALYM 0.60 - 3.40 0.43(L) 0.25(L) ANGELA 4 - 12 % - - AMONO 0.0 - 0.9 K/uL 0.5 0.5 EOSA 0 - 5 % - - AEOS - 0.1 0.1 BASA 0 - 2 % - - ABAS - 0.0 0.0 Hemoglobin A1C Date Value 09/17/2019 5.80 05/27/2019 7.9 % (H) 04/19/2019 8.4 % (H) Urinalysis: Lab Results Component Value Date/Time UCOLOR Yellow 09/17/2019 08:16 AM TURBID Clear 09/17/2019 08:16 AM USPGR 1.025 09/17/2019 08:16 AM UPH 5.5 09/17/2019 08:16 AM UPROTEIN 1+ (A) 09/17/2019 08:16 AM UAGLU Trace (A) 09/17/2019 08:16 AM UKET Negative 09/17/2019 08:16 AM UBILE Negative 09/17/2019 08:16 AM UBLD 1+ (A) 09/17/2019 08:16 AM UROB 0.2 09/17/2019 08:16 AM Protein/CR ratio (no units) Date Value 09/17/2019 0.36 09/13/2019 0.53 09/10/2019 0.51 09/06/2019 0.47 09/04/2019 0.38 Imaging: Results for orders placed during the hospital encounter of 12/17/16 CT ABD/PELV WO CONTRAST Impression 1. Normal caliber aorta without calcified plaque. Normal caliber raf ac arteries with minimal calcified plaque. 2. Peritoneal dialysis catheter in place with mild pneumoperitoneum and minimal pelvic free fluid. 3. Mild left ventricular hypertrophy. Approved by Melvina Briones M.D. on 12/17/2016 3:58 PM By my electronic signature, I attest that I have personally reviewed the images for this examination and formulated the interpretations and opinions expressed i n this report Finalized by Jorge Vasquez M.D. on 12/17/2016 5:03 PM. Dictated by Melvina alberts M.D. on 12/17/2016 2:32 PM. Results for orders placed during the hospital encounter of 06/28/19 CHEST 2 VIEWS Impression 1. Resolution of interstitial edema. 2. Left basal linear opacities likely scarring. Finalized by Sergio Muñoz M.D. on 06/28/2019 11:56 AM. Dictated by Carlos Muñoz M.D. on 06/28/2019 11:54 AM. Assessment and Plan: Mr. Pace is a 49 y.o. male, who presents with ESRD 2/2 type 1 diabet es s/p a renal transplant on 05/27/19 here for routine follow up of his transplan t. # DDRT Complicated by delayed graft function-likely from ATN kidney, DCD, size m ismatch. - Cr very slow to trend down, annie today at 2.08 ( LDH, hapto, BK, CMV was done last visit was -ve, Allosure 0.2 DSA -ve) - ISAURA 06/28 elevated RI, with stent in place, mild ectasia of collecting system, organized hematoma - Stent removed on 07/09/2019 # Immunosuppression - On maintenance Triple drug therapy - Goal tacrolimus level 8-10 mcg/L (HPLC). FKL 8.4 - Currently taking Prograf 3mg BID, MPA 360 mg BID - Keep Prednisone 5 mg # ID Proph - CMV D+/R- to treat with Valcyte for 6 months post transplant - PJP Prophylax, to treat with Bactrim for 1 year post transplant - Completed Nystatin # Hypertension: BP is acceptable # DM/ Hyperglycemia - On Insulin pump - Following with Endo - C-Peptide <0.1 in 2017 # Anemia - Stable # Electrolytes: - Phos,mag, Na, K WNL # Incidental injury over left thumb - healed # General health maint. By PCP. - Rescheduled cataract surgery-for at least 3 months after transplant RTC 6 weeks via telehealth Labs twice weekly Sincerely, Berta Harrison MD Cc: Malathi Owen Cc: Dania Barksdale Please contact the [facility] at [phone] for any transplant related questions or concerns that may arise . Obtained patient's verbal consent to treat them and their agreement to [facility] policy and NPP via this telehealth visit during the Coronavirus Public He alth Emergency Total time 30 minutes- face to face visit, documentation and counseling regardin g risk factor (DM,HTN), immunosuppresive medications and cancer screen. * Lucia Trinidad, JAIME - 09/20/2019 10:30 AM CDT Last visit: 08/20/1905/30: HD session while inpatient 06/01: hospital d/c 06/04: HD session as outpatient 06/14: CORI drain removed. 06/27: Metoprolol stopped for BPs 90s. 06/28: Decreased Prograf 09/10 to 08/10. US neg, DSA- neg, Allosure 0.25, CXR neg, Fl u neg. 07/08: Ureteral stent removed. 07/11: Prograf increased from 08/10 to 09/10 07/16: Prophylactic Tamiflu, renally dosed 07/18: Prograf decreased from 5/5 to 08/11. 07/23: H1N1 and Rhinovirus pos. Myfortic lowered to 360mg BID. 07/25: 1st Epo injection 08/01: 2nd Epo 08/02: Prograf decreased from 4/5 to 4/4 4/2: 3rd Epo 08/14: Prograf decreased 08/10 to 3/08/15: 4th Epo, Hgb 10.3 09/06: Added nifedipine 30mg 09/19 Plan: Labs reviewed during visit. BP 130-140s. Hgb A1c 5.8%, iron studies r eviewed - continue iron supplement. Continue twice weekly labs. Kidney functions continues to improve. Discussed with Adriana, transplant pharmacist, and will incre ase Bactrim to daily and Valcyte daily. New prescriptions sent, med list updated . Transplant Synopsis: Date: 05/27/2019 Donor: DCD from a female donor in early 50s KDPI: 60% CPRA: 0% DSA: none Induction: Thymo for steroid avoidance CMV status: D+/R- Post-op course: DGF Ureteral stent removal: 07/09/19 Baseline Scr: TBD Clinical trial: none Referring quality assurance: Brayden Surgeon: Morales PMH: DM 1, Seizure disorder, depression, GREGORY, Vit D deficiency, obesity * Cristian Malone MA - 09/20/2019 10:30 AM CDT The patient reviewed the three documents sent via Gennio, agrees with the info rmation and provided verbal consent for this visit. documented in this encounter Plan of Treatment Care Team Description Date Type Specialty Berta Harrison MD [address] [place] [address] [phone] Doroteo Enamorado MD [address] [place] [address] [phone] 10/02/2019 Hospital Radiology Encounter Order Schedule Name Type Priority Associated Diag noses 100 Occurrences starting 09/20/2019 unti l 09/19/2020, 2 completed URINALYSIS DIPSTICK Lab Routine Kidney tra nsplanted REFLEX TO CULTURE 100 Occurrences starting 09/20/2019 unti l 09/19/2020, 2 completed URINALYSIS MICROSCOPIC Lab Routine Kidney transplanted REFLEX TO CULTURE 100 Occurrences starting 09/20/2019 unti l 09/19/2020 UA REFLEX CULTURE LABEL Lab Routine Kidney transplanted documented as of this encounter Goals Goal Patient Associated Recent Progress Patient-Stat Aut hor Goal Type Problems ed? Recover from illness [facility] Rajani Ac RN documented as of this encounter Results * URINALYSIS MICROSCOPIC REFLEX TO CULTURE (09/24/2019 8:18 AM CDT) WBCs,UA Negative [facility] RBCs,UA Few [facility] Bacteria,UA Negative [facility] Squamous 0-5 [facility] Epithelial Cells Specimen Urine Narrative Performed At [facility] Outside Lab Verified by Federico Phillips on 09/24/2019. Performing Organization Address [facility] Ph one Number LABDE INTERFACE * URINALYSIS DIPSTICK REFLEX TO CULTURE (09/24/2019 8:18 AM CDT) Color,UA Yellow [facility] Turbidity,UA Clear [facility] Glucose,UA 2+ (A) Negative [facility] Bilirubin,UA Negative [facility] Ketones,UA Negative [facility] Specific 1.020 [facility] Hext-Urine Blood,UA Trace-lysed (A) Negative [facility] INTERFAC E pH,UA 5.5 [facility] Protein,UA 1+ (A) Negative [facility] Urobilinogen,UA 0.2 (A) 0.2 - 1.0 LABDE INTERFAC E Nitrite,UA Negative [facility] Leukocytes,UA Negative [facility] Specimen Urine Narrative Performed At [facility] Outside Lab Verified by Federico Phillips on 09/24/2019. Performing Organization Address [facility] Ph one Number LABDE INTERFACE * URINALYSIS MICROSCOPIC REFLEX TO CULTURE (09/20/2019 7:31 AM CDT) WBCs,UA 0-2 (A) [facility] RBCs,UA 5-10 (A) [facility] Bacteria,UA Negative [facility] Squamous None [facility] Epithelial Cells Specimen Urine Narrative Performed At [facility] INTER[facility] Outside Lab Verified by Kandy crowe 09/20/2019. Performing Organization Address [facility] Ph one Number LABDE INTERFACE * URINALYSIS DIPSTICK REFLEX TO CULTURE (09/20/2019 7:31 AM CDT) Color,UA Yellow [facility] Turbidity,UA Clear [facility] Glucose,UA Negative [facility] Bilirubin,UA Negative [facility] Ketones,UA Negative [facility] Specific 1.025 [facility] Hext-Urine Blood,UA 1+ (A) Negative [facility] pH,UA 5.5 [facility] Protein,UA 2+ (A) Negative [facility] Urobilinogen,UA 0.2 (A) 0.2 - 1.0 LABDE INTERFAC E Nitrite,UA Negative [facility] Leukocytes,UA Negative [facility] INTER[facility] Specimen Urine Narrative Performed At LAB[facility] INTER[facility] Outside Lab Verified by Kandy crowe 09/20/2019. 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
--- OUTSIDE RECORDS SUMMARY | 2019-09-28 08:39 | XMS REPORT | Encounter Summary ---
Author Author [facility] Organization [facility] Address Unknown Phone Unavailable Care Team Providers Care Geophysical Observer Name Role Phone Dania Barksdale MD PCP Jose Huff DO Unavailable Encounter Details Care Team Description Date Type Department Federico Phillips Kidney transplanted; Immunosuppression (HCC) 09/17/2019 Orders Only The [facility] [address] [address] Social History Date Tobacco Use [...] Date Type Specialty Berta Harrison MD [address] [place] [address] [phone] Doroteo Enamorado MD [address] [place] [address] 10/02/2019 Hospital Radiology Encounter documented as of this encounter Goals Goal Patient Associated Recent Progress Patient-Stat Aut hor Goal Type Problems ed? Recover from illness [facility] Rajani Ac RN documented as of this encounter Procedures Comments Procedure Name Priority Date/Time Associated Diag nosis TACROLIMUS LEVEL(FK506) Routine 09/13/2019 Kidney transplanted 8:25 AM CDT Immunosuppression (HCC) documented in this encounter Results * TACROLIMUS LEVEL(FK506) (09/13/2019 8:25 AM CDT) Tacrolimus 8.8 [facility] INTER[facility] Specimen Blood Narrative Performed At LAB[facility] INTERFACE Outside Lab Verified by Federico Phillips on 09/17/2019. 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
--- OUTSIDE RECORDS SUMMARY | 2019-09-28 08:39 | XMS REPORT | Encounter Summary ---
Author Author [facility] Organization [facility] Address Unknown Phone Unavailable Care Team Providers Care Seismology Teacher Name Role Phone Dania Barksdale MD PCP Jose Huff DO Unavailable Encounter Details Care Team Description Date Type Department Kandy Gill MA Kidney transplanted; Immunosuppression (HCC) 09/10/2019 Orders Only The [facility] [address] [address] Social History Date Tobacco Use [...] Date Type Specialty Berta Harrison MD 4000 [place] [address] [phone] Doroteo Enamorado MD 4000 [place], [place] [id number] 10/02/2019 Hospital Radiology Encounter documented as of this encounter Goals Goal Patient Associated Recent Progress Patient-Stat Aut hor Goal Type Problems ed? Recover from illness [facility] Rajani Ac RN documented as of this encounter Procedures Comments Procedure Name Priority Date/Time Associated Diag nosis PHOSPHORUS Routine 09/13/2019 Kidney transpla nted 8:25 AM CDT Immunosuppression (HCC) URINALYSIS MICROSCOPIC Routine 09/10/2019 Kidney transplanted REFLEX TO CULTURE 9:52 AM CDT Immunosuppression ( HCC) URINALYSIS DIPSTICK Routine 09/10/2019 Kidney tra nsplanted REFLEX TO CULTURE 9:52 AM CDT Immunosuppression ( HCC) PROTEIN/CR RATIO,UR RAN Routine 09/10/2019 Kidney transplanted 9:52 AM CDT Immunosuppression (HCC) CBC AND DIFF Routine 09/10/2019 Kidney transpla nted 9:52 AM CDT Immunosuppression (HCC) URIC ACID Routine 09/10/2019 Kidney transpla nted 9:52 AM CDT Immunosuppression (HCC) PHOSPHORUS Routine 09/10/2019 Kidney transpla nted 9:52 AM CDT Immunosuppression (HCC) MAGNESIUM Routine 09/10/2019 Kidney transpla nted 9:52 AM CDT Immunosuppression (HCC) COMPREHENSIVE METABOLIC Routine 09/10/2019 Kidney transplanted PANEL 9:52 AM CDT Immunosuppression ( HCC) TACROLIMUS LEVEL(FK506) Routine 09/06/2019 Kidney transplanted 9:19 AM CDT Immunosuppression (HCC) documented in this encounter Results * PHOSPHORUS (09/13/2019 8:25 AM CDT) Phosphorus 3.1 LABDE INTERFACE Specimen Blood Narrative Performed At LABDE INTERFACE Outside Lab Verified by Kandy crowe 09/14/2019. Performing Organization Address [facility] Ph one Number LABDE INTERFACE * PHOSPHORUS (09/10/2019 9:52 AM CDT) Phosphorus 2.8 mg/dL LABDE INTERFACE Specimen Blood Narrative Performed At LABDE INTERFACE Outside Lab Verified by Kandy crowe 09/10/2019. Performing Organization Address [facility] Ph one Number LABDE INTERFACE * URINALYSIS DIPSTICK REFLEX TO CULTURE (09/10/2019 9:52 AM CDT) Color,UA Yellow Lt. Yellow LABDE INTERFACE Turbidity,UA Clear [facility]DE INTERFACE Glucose,UA 2+ (A) Negative [facility] INTERFACE Bilirubin,UA Negative Negative LABDE INTERFACE Ketones,UA Negative Negative LABDE INTERFACE Specific 1.020 1.000 - 1,030 LABDE INTERFACE [place]-Urine Blood,UA 1+ (A) Negative LABDE INTERFACE pH,UA 5.5 LABDE INTERFACE Protein,UA 2+ (A) Negative LABDE INTERFACE Urobilinogen,UA 0.2 LABDE INTERFACE Nitrite,UA Negative LABDE INTERFACE Leukocytes,UA Negative Negative LABDE INTERFACE Specimen Urine Narrative Performed At LABDE INTERFACE Outside Lab Verified by Kandy crowe 09/10/2019. Performing Organization Address [facility] Ph one Number LABDE INTERFACE * URINALYSIS MICROSCOPIC REFLEX TO CULTURE (09/10/2019 9:52 AM CDT) WBCs,UA Rare /HPF LABDE INTERFACE RBCs,UA 2-5 (A) LABDE INTERFACE Bacteria,UA Negative LABDE INTERFACE Squamous 0-5 (A) LABDE INTERFACE Epithelial Cells Specimen Urine Narrative Performed At LABDE INTERFACE Outside Lab Verified by Kandy crowe 09/10/2019. Performing Organization Address [facility] Ph one Number LABDE INTERFACE * URIC ACID (09/10/2019 9:52 AM CDT) Uric Acid 6.4 2.6 - 7.2 mg/dL LABDE INTERFAC E Specimen Blood Narrative Performed At LABDE INTERFACE Outside Lab Verified by Kandy crowe 09/10/2019. Performing Organization Address [facility] Ph one Number LABDE INTERFACE * MAGNESIUM (09/10/2019 9:52 AM CDT) Magnesium 2.1 1.6 - 2.6 mg/dL LABDE INTERFAC E Specimen Blood Narrative Performed At LABDE INTERFACE Outside Lab Verified by Kandy crowe 09/10/2019. Performing Organization Address [facility] one Number LABDE INTERFACE * COMPREHENSIVE METABOLIC PANEL (09/10/2019 9:52 AM CDT) Sodium 138 134 - 148 mmol/L LABDE INTERFA CE Potassium 5.4 (H) 3.5 - 5.3 mmol/L LABDE INTERFA CE Chloride 114 95 - 114 mmol/L LABDE INTERFAC E CO2 18 (L) 22 - 33 LABDE INTERFACE Anion Gap 11 LABDE INTERFACE Glucose 247 (H) 70 - 110 mg/dL LABDE INTERFACE Blood Urea 34 (H) 5 - 25 mg/dL LABDE INTERFACE Nitrogen Creatinine 2.52 (H) 0.50 - 1.50 LABDE INTERFACE Calcium 8.8 8.3 - 10.4 mg/dL LABDE INTERFA CE Alk Phosphatase 111 U/L LABDE INTERFAC E AST (SGOT) 25 U/L LABDE INTERFACE ALT (SGPT) 20 6 - 45 U/L LABDE INTERFACE Total Bilirubin 0.3 0.2 - 1.2 mg/dL LABDE INTERFA CE Total Protein 6.5 6.0 - 8.3 g/dL LABDE INTERFACE Albumin 4.4 3.6 - 5.1 g/dL LABDE INTERFACE eGFR Non 27 (L) >59 LABDE INTERFACE Specimen Blood Narrative Performed At LABDE INTERFACE Outside Lab Verified by Kandy crowe 09/10/2019. Performing Organization Address [facility] one Number LABDE INTERFACE * CBC AND DIFF (09/10/2019 9:52 AM CDT) White Blood 5.95 5.00 - 10.00 K/uL LABDE INTERF RAMON Cells RBC 3.84 (L) 4.20 - 5.40 LABDE INTERFACE Hemoglobin 12.1 (L) 14.0 - 17.0 LABDE INTERFACE Hematocrit 37.8 (L) 42.0 - 52.0 LABDE INTERFACE MCV 98.4 (H) 80.0 - 97.0 LABDE INTERFACE MCH 31.5 (H) 27.0 - 31.2 pg LABDE INTERFACE MCHC 32.0 32.0 - 36.0 g/dL LABDE INTERFA CE Platelet Count 161 K/uL LABDE INTERFACE RDW 13.3 11.6 - 14.8 % LABDE INTERFACE Absolute 5.05 2.00 - 6.90 K/uL LABDE INTERFA CE Neutrophil Count Neutrophils 85.0 (H) 37.0 - 80.0 % LABDE INTERFACE Absolute Lymph 0.27 (L) 0.60 - 3.40 LABDE INTERFACE Count Lymphocytes 4.5 (L) 10.0 - 50.0 % LABDE INTERFACE Absolute 0.5 0.0 - 0.9 K/uL LABDE INTERFACE Monocyte Count Monocytes 7.7 0.0 - 12.0 % LABDE INTERFACE Absolute 0.2 0.0 - 0.7 K/uL LABDE INTERFACE Eosinophil Count Eosinophil 2.5 0.0 - 7.0 % LABDE INTERFACE Absolute 0.0 LABDE INTERFACE Basophil Count Basophil 0.30 LABDE INTERFACE MPV 12.0 (H) 7.4 - 10.0 LABDE INTERFACE Specimen Blood Narrative Performed At LABDE INTERFACE Outside Lab Verified by Kandy crowe 09/10/2019. Performing Organization Address [facility] one Number LABDE INTERFACE * PROTEIN/CR RATIO,UR RAN (09/10/2019 9:52 AM CDT) Protein, Random 55 (H) 0 - 20 LABDE INTERFAC E Creatinine, 107.5 (H) 0.0 - 50.0 mg/dl LABDE INTERFA CE Random Protein/CR 0.51 LABDE INTERFACE ratio Specimen Urine - Urine Narrative Performed At LABDE INTERFACE Outside Lab Verified by Kandy crowe 09/10/2019. Performing Organization Address [facility] Ph one Number LABDE INTERFACE * TACROLIMUS LEVEL(FK506) (09/06/2019 9:19 AM CDT) Tacrolimus 10.3 LABDE INTERFACE Specimen Blood Narrative Performed At LABDE INTERFACE Outside Lab Verified by Kandy crowe 09/10/2019. 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
--- OUTSIDE RECORDS SUMMARY | 2019-09-28 08:39 | XMS REPORT | Encounter Summary ---
Author Author [facility] Organization [facility] Address Unknown Phone Unavailable Care Team Providers Care Cement Sack Breaker Name Role Phone Dania Barksdale MD PCP Jose Huff DO Unavailable Encounter Details Care Team Description Date Type Department Kandy Gill MA Kidney transplanted; Immunosuppression (HCC) 09/07/2019 Orders Only The [facility] [address] [address] Social History Date Tobacco Use [...] Date Type Specialty Berta Harrison MD 4000 [place] [address] [phone] Doroteo Enamorado MD 4000 [place] [address] 10/02/2019 Hospital Radiology Encounter documented as of this encounter Goals Goal Patient Associated Recent Progress Patient-Stat Aut hor Goal Type Problems ed? Recover from illness [facility] Rajani Ac RN documented as of this encounter Procedures Comments Procedure Name Priority Date/Time Associated Diag nosis TACROLIMUS LEVEL(FK506) Routine 09/04/2019 Kidney transplanted 7:47 AM CDT Immunosuppression (HCC) documented in this encounter Results * TACROLIMUS LEVEL(FK506) (09/04/2019 7:47 AM CDT) Tacrolimus 7.8 LABDE INTERFACE Specimen Blood Narrative Performed At LABDE INTERFACE Outside Lab Verified by Kandy crowe 09/07/2019. 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
--- OUTSIDE RECORDS SUMMARY | 2019-09-28 08:40 | XMS REPORT | Encounter Summary ---
Author Author [facility] Organization [facility] Address Unknown Phone Unavailable Care Team Providers Care Keg Filler Name Role Phone Dania Barksdale MD PCP Jose Huff DO Unavailable Encounter Details Care Team Description Date Type Department Lucia Trinidad RN 08/31/2019 Documentation The [address] [address] Social History Date Tobacco Use Types Packs/Day [...] impairment: No documented as of this encounter Progress Notes * Lucia Trinidad RN - 08/31/2019 1:32 PM CDT Reviewed labs from 08/29. Creat improved to 2.35. Tac level pending. Pt notified of labs via MyChart. Pt will repeat labs on Tuesday, 09/02. documented in this encounter Plan of Treatment Care Team Description Date Type Specialty Berta Harrison MD 4000 [place] [address] Doroteo Enamorado MD 4000 [place] [address] 10/02/2019 Hospital Radiology Encounter documented as of this encounter Goals Goal Patient Associated Recent Progress Patient-Stat Aut hor Goal Type Problems ed? Recover from illness [facility] Rajani Ac, RN documented as of this encounter Visit Diagnoses Not on filedocumented in this encounter
--- OUTSIDE RECORDS SUMMARY | 2019-09-28 08:40 | XMS REPORT | Encounter Summary ---
Author Author [facility] Organization [facility] Address Unknown Phone Unavailable Care Team Providers Care Geoscientist Name Role Phone Dania Barksdale MD PCP Jose Huff DO Unavailable Reason for Visit * Reason Comments Financial/Insurance Questions Encounter Details Care Team Description Date Type Department Brea Hernández Financial/Insurance Questions 08/23/[address] [address] Social History Date Tobacco Use Types Packs/Day [...] encounter Miscellaneous Notes * Telephone Encounter - Brea Hernández - 08/23/2019 11:02 AM CDT SW called pt to update his AKF PIETER varun was submitted yesterday however she is unsure if his bank statement will be acceptable for their proof of income requi rements. SW explained she called his [employer]BS plan and they are going to mail him a statement of his payments of his premiums. SW asked pt to e-mail document to her when it arrives. Pt denies any other needs at this time. Brea Hernández LMSW Transplant Caustic Mixer documented in this encounter Plan of Treatment Care Team Description Date Type Specialty Berta Harrison MD 4000 [place] [address] Doroteo Enamorado MD [address] [place] [address] 10/02/2019 Hospital Radiology Encounter documented as of this encounter Goals Goal Patient Associated Recent Progress Patient-Stat Aut hor Goal Type Problems ed? Recover from illness [facility] Rajani Ac RN documented as of this encounter Visit Diagnoses Not on filedocumented in this encounter
--- OUTSIDE RECORDS SUMMARY | 2019-09-28 08:40 | XMS REPORT | Encounter Summary ---
Author Author [facility] Organization [facility] Address Unknown Phone Unavailable Care Team Providers Care Wader Boot Top Assembler Name Role Phone Dania Barksdale MD PCP Jose Huff DO Unavailable Encounter Details Care Team Description Date Type Department Federico Phillips Kidney transplanted; Immunosuppression (HCC) 09/04/2019 Orders Only The [facility] [address] [address] Social History Date Tobacco Use [...] Date Type Specialty Berta Harrison MD 4000 [place] [address] [phone] Doroteo Enamorado MD 4000 [place] [address] [phone] 10/02/2019 Hospital Radiology Encounter documented as of this encounter Goals Goal Patient Associated Recent Progress Patient-Stat Aut hor Goal Type Problems ed? Recover from illness [facility] Rajani Ac RN documented as of this encounter Procedures Comments Procedure Name Priority Date/Time Associated Diag nosis URINALYSIS MICROSCOPIC Routine 09/04/2019 Kidney transplanted REFLEX TO CULTURE 7:47 AM CDT Immunosuppression ( HCC) PROTEIN/CR RATIO,UR RAN Routine 09/04/2019 Kidney transplanted 7:47 AM CDT Immunosuppression (HCC) CBC AND DIFF Routine 09/04/2019 Kidney transpla nted 7:47 AM CDT Immunosuppression (HCC) URIC ACID Routine 09/04/2019 Kidney transpla nted 7:47 AM CDT Immunosuppression (HCC) PHOSPHORUS Routine 09/04/2019 Kidney transpla nted 7:47 AM CDT Immunosuppression (HCC) MAGNESIUM Routine 09/04/2019 Kidney transpla nted 7:47 AM CDT Immunosuppression (HCC) COMPREHENSIVE METABOLIC Routine 09/04/2019 Kidney transplanted PANEL 7:47 AM CDT Immunosuppression ( HCC) documented in this encounter Results * URINALYSIS MICROSCOPIC REFLEX TO CULTURE (09/04/2019 7:47 AM CDT) WBCs,UA Rare (A) LABDE INTERFACE RBCs,UA Negative LABDE INTERFACE Bacteria,UA Negative LABDE INTERFACE Squamous None (A) LABDE INTERFACE Epithelial Cells Specimen Urine Narrative Performed At LABDE INTERFACE Outside Lab Verified by Federico Phillips on 09/04/2019. Performing Organization Address City/State/Zipcode Ph one Number LABDE INTERFACE * URIC ACID (09/04/2019 7:47 AM CDT) Uric Acid 5.4 LABDE INTERFACE Specimen Blood Narrative Performed At LABDE INTERFACE Outside Lab Verified by Federico Phillips on 09/04/2019. Performing Organization Address [facility] Ph one Number LABDE INTERFACE * PHOSPHORUS (09/04/2019 7:47 AM CDT) Phosphorus 3.6 LABDE INTERFACE Specimen Blood Narrative Performed At LABDE INTERFACE Outside Lab Verified by Federico Phillips on 09/04/2019. Performing Organization Address [facility] Ph one Number LABDE INTERFACE * MAGNESIUM (09/04/2019 7:47 AM CDT) Magnesium 1.9 LABDE INTERFACE Specimen Blood Narrative Performed At LABDE INTERFACE Outside Lab Verified by Federico Phillips on 09/04/2019. Performing Organization Address [facility] Ph one Number LABDE INTERFACE * COMPREHENSIVE METABOLIC PANEL (09/04/2019 7:47 AM CDT) Sodium 139 MMOL/L LABDE INTERFACE Potassium 5.0 mmol/L LABDE INTERFACE Chloride 112 mmol/L LABDE INTERFACE CO2 20 (L) 22 - 33 LABDE INTERFACE Anion Gap 12 LABDE INTERFACE Glucose 124 (H) 70 - 110 mg/dL LABDE INTERFACE Blood Urea 37 (H) 5 - 25 mg/dL LABDE INTERFACE Nitrogen Creatinine 2.30 (H) 0.50 - 1.50 mg/dl LABDE INTERF RAMON Calcium 9.0 LABDE INTERFACE Alk Phosphatase 110 U/L LABDE INTERFAC E AST (SGOT) 20 U/L LABDE INTERFACE ALT (SGPT) 18 U/L LABDE INTERFACE Total Bilirubin 0.2 MG/DL LABDE INTERFAC E Total Protein 6.0 g/dL LABDE INTERFACE Albumin 4.2 g/dL LABDE INTERFACE eGFR Non 30 (L) >59 LABDE INTERFACE Specimen Blood Narrative Performed At LABDE INTERFACE Outside Lab Verified by Federico Phillips on 09/04/2019. Performing Organization Address [facility] Ph one Number LABDE INTERFACE * PROTEIN/CR RATIO,UR RAN (09/04/2019 7:47 AM CDT) Protein, Random 42 (H) 0 - 20 LABDE INTERFAC E Creatinine, 108.8 (H) 0.0 - 50.0 LABDE INTERFACE Random Protein/CR 0.38 LABDE INTERFACE ratio Specimen Urine - Urine Narrative Performed At LABDE INTERFACE Outside Lab Verified by Federico Phillips on 09/04/2019. Performing Organization Address City/State/[facility] Ph one Number LABDE INTERFACE * CBC AND DIFF (09/04/2019 7:47 AM CDT) White Blood 5.13 LABDE INTERFACE Cells RBC 3.63 (L) 4.20 - 5.40 LABDE INTERFACE Hemoglobin 11.5 (L) 14.0 - 17.0 LABDE INTERFACE Hematocrit 35.9 (L) 42.0 - 52.0 LABDE INTERFACE MCV 98.9 (H) 80.0 - 97.0 LABDE INTERFACE MCH 31.7 (H) 27.0 - 31.2 LABDE INTERFACE MCHC 32.0 LABDE INTERFACE Platelet Count 146 (L) 150 - 400 LABDE INTERFACE RDW 13.4 LABDE INTERFACE Absolute 4.02 LABDE INTERFACE Neutrophil Count Neutrophils 78.4 LABDE INTERFACE Absolute Lymph 0.39 (L) 0.60 - 3.40 LABDE INTERFACE Count Lymphocytes 7.6 (L) 10.0 - 50.0 LABDE INTERFACE Absolute 0.6 LABDE INTERFACE Monocyte Count Monocytes 11.5 LABDE INTERFACE Absolute 0.1 LABDE INTERFACE Eosinophil Count Eosinophil 2.1 LABDE INTERFACE Absolute 0.0 LABDE INTERFACE Basophil Count Basophil 0.40 LABDE INTERFACE MPV 11.7 (H) 7.4 - 10.0 LABDE INTERFACE Specimen Blood Narrative Performed At LABDE INTERFACE Outside Lab Verified by Federico Phillips on 09/04/2019. 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
--- OUTSIDE RECORDS SUMMARY | 2019-09-28 08:40 | XMS REPORT | Encounter Summary ---
Author Author [facility] Organization [facility] Address Unknown Phone Unavailable Care Team Providers Care Coding Spec Name Role Phone Dania Barksdale MD PCP Jose Huff DO Unavailable Reason for Visit * Reason Comments Medication Question Encounter Details Care Team Description Date Type Department Kaylan Mcintyre RN Medication Question 08/22/[address] [address] Social History Date Tobacco Use Types Packs/Day [...] encounter Miscellaneous Notes * Telephone Encounter - Kaylan Mcintyre RN - 08/22/2019 4:55 PM CDT Patient paged after hours pager. Called him back. He advised that his pharmacy called from [place] and advised that he needed to be on a cholesterol pill. Steffen vick advised that he has never had issues with cholesterol and was wondering a bout it. He advised he followed up with his heart doctor today and they did not mention it either. I advised I would send a message to Lucia to follow up wit h him tomorrow regarding that. He verbalized understanding. documented in this encounter Plan of Treatment Care Team Description Date Type Specialty Berta Harrison MD [address] [place] [address] Doroteo Enamorado MD 4000 [place] [address] 10/02/2019 Hospital Radiology Encounter documented as of this encounter Goals Goal Patient Associated Recent Progress Patient-Stat Aut hor Goal Type Problems ed? Recover from illness [facility] Rajani Ac, JAIME documented as of this encounter Visit Diagnoses Not on filedocumented in this encounter
--- OUTSIDE RECORDS SUMMARY | 2019-09-28 08:40 | XMS REPORT | Encounter Summary ---
Author Author [facility] Organization [facility] Address Unknown Phone Unavailable Care Team Providers Care Site Promotion Agent Name Role Phone Dania Barksdale MD PCP Jose Huff DO Unavailable Encounter Details Care Team Description Date Type Department Brea Hernández 08/31/2019 Documentation The [address] [address] Social History Date Tobacco Use Types Packs/Day [...] as of this encounter Progress Notes * Brea Hernández - 08/31/2019 1:10 PM CDT SW received notification via [employer] portal -pt's PEITER varun for 08/07-11/06/19 B S payment was approved. SW e-mailed pt to update on above. No additional needs a t this time. Brea Hernández LMSW Transplant Grain Spouter documented in this encounter Plan of Treatment Care Team Description Date Type Specialty Berta Harrison MD 4000 [place] [address] Doroteo Enamorado MD 4000 [place] [address] 10/02/2019 Hospital Radiology Encounter documented as of this encounter Goals Goal Patient Associated Recent Progress Patient-Stat Aut hor Goal Type Problems ed? Recover from illness [facility] Rajani Ac, RN documented as of this encounter Visit Diagnoses Not on filedocumented in this encounter
--- OUTSIDE RECORDS SUMMARY | 2019-09-28 08:40 | XMS REPORT | Encounter Summary ---
Author Author [facility] Organization [facility] Address Unknown Phone Unavailable Care Team Providers Care Chef Head Name Role Phone Dania Barksdale MD PCP Jose Huff DO Unavailable Encounter Details Care Team Description Date Type Department Federico Phillips Kidney transplanted; Immunosuppression (HCC) 08/31/2019 Orders Only [facility] [address] [address] Social History Date Tobacco Use [...] Date Type Specialty Berta Harrison MD [address] [place] [address] [phone] Doroteo Enamorado MD 4000 [place] [address] [phone] 10/02/2019 Hospital Radiology Encounter documented as of this encounter Goals Goal Patient Associated Recent Progress Patient-Stat Aut hor Goal Type Problems ed? Recover from illness [facility] Rajani Ac RN documented as of this encounter Procedures Comments Procedure Name Priority Date/Time Associated Diag nosis URINALYSIS DIPSTICK Routine 08/30/2019 Kidney tra nsplanted REFLEX TO CULTURE 9:54 AM CDT Immunosuppression ( HCC) URINALYSIS MICROSCOPIC Routine 08/28/2019 Kidney transplanted REFLEX TO CULTURE 8:30 AM CDT Immunosuppression ( HCC) URINALYSIS DIPSTICK Routine 08/28/2019 Kidney tra nsplanted REFLEX TO CULTURE 8:30 AM CDT Immunosuppression ( HCC) PROTEIN/CR RATIO,UR RAN Routine 08/28/2019 Kidney transplanted 8:30 AM CDT Immunosuppression (HCC) TACROLIMUS LEVEL([id number]) Routine 08/28/2019 Kidney transplanted 8:30 AM CDT Immunosuppression (HCC) CBC AND DIFF Routine 08/28/2019 Kidney transpla nted 8:30 AM CDT Immunosuppression (HCC) URIC ACID Routine 08/28/2019 Kidney transpla nted 8:30 AM CDT Immunosuppression (HCC) PHOSPHORUS Routine 08/28/2019 Kidney transpla nted 8:30 AM CDT Immunosuppression (HCC) MAGNESIUM Routine 08/28/2019 Kidney transpla nted 8:30 AM CDT Immunosuppression (HCC) COMPREHENSIVE METABOLIC Routine 08/28/2019 Kidney transplanted PANEL 8:30 AM CDT Immunosuppression ( HCC) URINALYSIS MICROSCOPIC Routine 08/23/2019 Kidney transplanted REFLEX TO CULTURE 9:37 AM CDT Immunosuppression ( HCC) URINALYSIS DIPSTICK Routine 08/23/2019 Kidney tra nsplanted REFLEX TO CULTURE 9:37 AM CDT Immunosuppression ( HCC) PROTEIN/CR RATIO,UR RAN Routine 08/23/2019 Kidney transplanted 9:37 AM CDT Immunosuppression (HCC) TACROLIMUS LEVEL([id number]) Routine 08/23/2019 Kidney transplanted 9:37 AM CDT Immunosuppression ([facility]) CBC AND DIFF Routine 08/23/2019 Kidney transpla nted 9:37 AM CDT Immunosuppression ([facility]) URIC ACID Routine 08/23/2019 Kidney transpla nted 9:37 AM CDT Immunosuppression (HCC) PHOSPHORUS Routine 08/23/2019 Kidney transpla nted 9:37 AM CDT Immunosuppression ([facility]) MAGNESIUM Routine 08/23/2019 Kidney transpla nted 9:37 AM CDT Immunosuppression ([facility]) COMPREHENSIVE METABOLIC Routine 08/23/2019 Kidney transplanted PANEL 9:37 AM CDT Immunosuppression ( HCC) documented in this encounter Results * URINALYSIS DIPSTICK REFLEX TO CULTURE (08/30/2019 9:54 AM CDT) Color,UA Yellow Lt. Yellow LABDE INTERFACE Turbidity,UA Clear LABDE INTERFACE Glucose,UA Negative Negative LABDE INTERFACE Bilirubin,UA Negative Negative LABDE INTERFACE Ketones,UA Negative Negative LABDE INTERFACE Specific 1.025 1.000 - 1,030 LABDE INTERFACE [place]-Urine Blood,UA 1+ (A) Negative LABDE INTERFACE pH,UA 5.5 LABDE INTERFACE Protein,UA 2+ (A) Negative LABDE INTERFACE Urobilinogen,UA 0.2 (A) 0.2 - 1.0 LABDE INTERFAC E Nitrite,UA Negative LABDE INTERFACE Leukocytes,UA Negative Negative LABDE INTERFACE Specimen Urine Narrative Performed At LABDE INTERFACE Outside Lab Verified by Kandy crowe 08/31/2019. Performing Organization Address City/State/Zipcode Ph one Number LABDE INTERFACE * TACROLIMUS LEVEL([id number]) (08/28/2019 8:30 AM CDT) Tacrolimus 10.1 LABDE INTERFACE Specimen Blood Narrative Performed At LABDE INTERFACE Outside Lab Verified by Federico Phillips on 08/31/2019. Performing Organization Address [facility] Ph one Number LABDE INTERFACE * PROTEIN/CR RATIO,UR RAN (08/28/2019 8:30 AM CDT) Protein, Random 51 (H) 0 - 20 LABDE INTERFAC E Creatinine, 130.5 (H) 0.0 - 50.0 LABDE INTERFACE Random Protein/CR 0.39 LABDE INTERFACE ratio Specimen Urine - Urine Narrative Performed At LABDE INTERFACE Outside Lab Verified by Federico Phillips on 08/31/2019. Performing Organization Address [facility] Ph one Number LABDE INTERFACE * URINALYSIS DIPSTICK REFLEX TO CULTURE (08/28/2019 8:30 AM CDT) Color,UA Yellow LABDE INTERFACE Turbidity,UA Clear LABDE INTERFACE Glucose,UA 2+ (A) Negative LABDE INTERFACE Bilirubin,UA Negative LABDE INTERFACE Ketones,UA Negative LABDE INTERFACE Specific 1.020 LABDE INTERFACE [place]-Urine Blood,UA 2+ (A) Negative LABDE INTERFACE pH,UA 5.5 LABDE INTERFACE Protein,UA 2+ (A) Negative LABDE INTERFACE Urobilinogen,UA 0.2 (A) 0.2 - 1.0 LABDE INTERFAC E Nitrite,UA Negative LABDE INTERFACE Leukocytes,UA Negative LABDE INTERFACE Specimen Urine Narrative Performed At LABDE INTERFACE Outside Lab Verified by Federico Phillips on 08/31/2019. Performing Organization Address [facility] Ph one Number LABDE INTERFACE * URINALYSIS MICROSCOPIC REFLEX TO CULTURE (08/28/2019 8:30 AM CDT) WBCs,UA Negative LABDE INTERFACE RBCs,UA 0-2 (A) LABDE INTERFACE Bacteria,UA Negative LABDE INTERFACE Squamous 0-5 (AA) LABDE INTERFACE Epithelial Cells Specimen Urine Narrative Performed At LABDE INTERFACE Outside Lab Verified by Federico Phillips on 08/31/2019. Performing Organization Address City/State[facility] Ph one Number LABDE INTERFACE * URIC ACID (08/28/2019 8:30 AM CDT) Uric Acid 6.6 LABDE INTERFACE Specimen Blood Narrative Performed At LABDE INTERFACE Outside Lab Verified by Federico Phillips on 08/31/2019. Performing Organization Address City/State/Zipcode Ph one Number LABDE INTERFACE * PHOSPHORUS (08/28/2019 8:30 AM CDT) Phosphorus 2.7 LABDE INTERFACE Specimen Blood Narrative Performed At LABDE INTERFACE Outside Lab Verified by Federicomarta Phillips on 08/31/2019. Performing Organization Address City/State/[facility] Ph one Number LABDE INTERFACE * MAGNESIUM (08/28/2019 8:30 AM CDT) Magnesium 2.0 LABDE INTERFACE Specimen Blood Narrative Performed At LABDE INTERFACE Outside Lab Verified by Federico Phillips on 08/31/2019. Performing Organization Address City/State/[facility] Ph one Number LABDE INTERFACE * CBC AND DIFF (08/28/2019 8:30 AM CDT) White Blood 5.55 LABDE INTERFACE Cells RBC 3.57 (L) 4.20 - 5.40 LABDE INTERFACE Hemoglobin 11.5 (L) 14.0 - 17.0 LABDE INTERFACE Hematocrit 35.8 (L) 42.0 - 52.0 LABDE INTERFACE MCV 100.3 (H) 80.0 - 97.0 LABDE INTERFACE MCH 32.2 (H) 27.0 - 31.2 LABDE INTERFACE MCHC 32.1 LABDE INTERFACE Platelet Count 154 LABDE INTERFACE RDW 14.4 LABDE INTERFACE Absolute 4.72 LABDE INTERFACE Neutrophil Count Neutrophils 85.1 (H) 37.0 - 80.0 LABDE INTERFACE Absolute Lymph 0.23 (L) 0.60 - 3.40 LABDE INTERFACE Count Lymphocytes 4.1 (L) 10.0 - 50.0 LABDE INTERFACE Absolute 0.5 LABDE INTERFACE Monocyte Count Monocytes 8.6 LABDE INTERFACE Absolute 0.1 LABDE INTERFACE Eosinophil Count Eosinophil 2.0 LABDE INTERFACE Absolute 0.0 LABDE INTERFACE Basophil Count Basophil 0.20 LABDE INTERFACE MPV 11.6 (H) 7.4 - 10.0 LABDE INTERFACE Specimen Blood Narrative Performed At LABDE INTERFACE Outside Lab Verified by Federico Phillips on 08/31/2019. Performing Organization Address [facility] one Number LABDE INTERFACE * COMPREHENSIVE METABOLIC PANEL (08/28/2019 8:30 AM CDT) Sodium 139 LABDE INTERFACE Potassium 4.9 LABDE INTERFACE Chloride 115 (H) 95 - 114 LABDE INTERFACE CO2 17 (L) 22 - 33 LABDE INTERFACE Anion Gap 12 LABDE INTERFACE Glucose 185 (H) 70 - 110 mg/dL LABDE INTERFACE Blood Urea 26 (H) 5 - 25 mg/dL LABDE INTERFACE Nitrogen Creatinine 2.83 (H) 0.50 - 1.50 mg/dL LABDE INTERF [place] Calcium 8.8 mg/dL LABDE INTERFACE Alk Phosphatase 112 U/L LABDE INTERFAC E AST (SGOT) 33 U/L LABDE INTERFACE ALT (SGPT) 19 U/L LABDE INTERFACE Total Bilirubin 0.2 mg/dL LABDE INTERFAC E Total Protein 6.3 g/dL LABDE INTERFACE Albumin 4.3 g/dL LABDE INTERFACE eGFR Non 24 (L) >59 mL/min/1.73m2 LABDE INTERF RAMON Specimen Blood Narrative Performed At LABDE INTERFACE Outside Lab Verified by Federico Phillips on 08/31/2019. Performing Organization Address [facility] one Number LABDE INTERFACE * TACROLIMUS LEVEL([id number]) (08/23/2019 9:37 AM CDT) Tacrolimus 8.2 LABDE INTERFACE Specimen Blood Narrative Performed At LABDE INTERFACE Outside Lab Verified by Federicomarta Phillips on 08/31/2019. Performing Organization Address [facility] Ph one Number LABDE INTERFACE * URIC ACID (08/23/2019 9:37 AM CDT) Uric Acid 5.4 LABDE INTERFACE Specimen Blood Narrative Performed At LABDE INTERFACE Outside Lab Verified by Federico Phillips on 08/31/2019. Performing Organization Address City/[facility]/Zipcode Ph one Number LABDE INTERFACE * MAGNESIUM (08/23/2019 9:37 AM CDT) Magnesium 1.9 LABDE INTERFACE Specimen Blood Narrative Performed At LABDE INTERFACE Outside Lab Verified by Federico Phillips on 08/31/2019. Performing Organization Address [facility] Ph one Number LABDE INTERFACE * PHOSPHORUS (08/23/2019 9:37 AM CDT) Phosphorus 3.1 LABDE INTERFACE Specimen Blood Narrative Performed At LABDE INTERFACE Outside Lab Verified by Federico Phillips on 08/31/2019. Performing Organization Address [facility] Ph one Number LABDE INTERFACE * URINALYSIS MICROSCOPIC REFLEX TO CULTURE (08/23/2019 9:37 AM CDT) WBCs,UA Negative /HPF LABDE INTERFACE RBCs,UA 0-2 (A) LABDE INTERFACE Bacteria,UA Negative LABDE INTERFACE Squamous None (A) LABDE INTERFACE Epithelial Cells Specimen Urine Narrative Performed At LABDE INTERFACE Outside Lab Verified by Federico Phillips on 08/31/2019. Performing Organization Address [facility] Ph one Number LABDE INTERFACE * URINALYSIS DIPSTICK REFLEX TO CULTURE (08/23/2019 9:37 AM CDT) Color,UA Yellow LABDE INTERFACE Turbidity,UA Clear LABDE INTERFACE Glucose,UA Negative LABDE INTERFACE Bilirubin,UA Negative LABDE INTERFACE Ketones,UA Negative LABDE INTERFACE Specific 1.025 LABDE INTERFACE [place]-Urine Blood,UA 1+ (A) Negative LABDE INTERFACE pH,UA 5.5 LABDE INTERFACE Protein,UA 2+ (A) Negative LABDE INTERFACE Urobilinogen,UA 0.2 (A) 0.2 - 1.0 LABDE INTERFAC E Nitrite,UA Negative LABDE INTERFACE Leukocytes,UA Negative LABDE INTERFACE Specimen Urine Narrative Performed At LABDE INTERFACE Outside Lab Verified by Federico Phillips on 08/31/2019. Performing Organization Address [facility] Ph one Number LABDE INTERFACE * COMPREHENSIVE METABOLIC PANEL (08/23/2019 9:37 AM CDT) Sodium 140 mmol/l LABDE INTERFACE Potassium 5.4 (H) 3.5 - 5.3 LABDE INTERFACE Chloride 114 LABDE INTERFACE CO2 20 (L) 22 - 33 LABDE INTERFACE Anion Gap 11 LABDE INTERFACE Glucose 119 (H) 70 - 110 mg/dL LABDE INTERFACE Blood Urea 24 mg/dL LABDE INTERFACE Nitrogen Creatinine 2.33 (H) 0.50 - 1.50 mg/dL LABDE INTERF [place] Calcium 9.2 mg/dL LABDE INTERFACE Alk Phosphatase 99 U/L LABDE INTERFAC E AST (SGOT) 23 U/L LABDE INTERFACE ALT (SGPT) 17 U/L LABDE INTERFACE Total Bilirubin 0.3 mg/dl LABDE INTERFAC E Total Protein 6.7 LABDE INTERFACE Albumin 4.4 LABDE INTERFACE eGFR Non 30 (L) >59 LABDE INTERFACE Specimen Blood Narrative Performed At LABDE INTERFACE Outside Lab Verified by Federico Phillips on 08/31/2019. Performing Organization Address City/State/Zipcode Ph one Number LABDE INTERFACE * CBC AND DIFF (08/23/2019 9:37 AM CDT) White Blood 4.55 (L) 5.00 - 10.00 LABDE INTERFACE Cells RBC 3.67 (L) 4.20 - 5.40 LABDE INTERFACE Hemoglobin 11.7 (L) 14.0 - 17.0 LABDE INTERFACE Hematocrit 37.0 (L) 42.0 - 52.0 LABDE INTERFACE MCV 100.8 (H) 80.0 - 97.0 LABDE INTERFACE MCH 31.9 (H) 27.0 - 31.2 LABDE INTERFACE MCHC 31.6 (L) 32.0 - 36.0 LABDE INTERFACE Platelet Count 143 (L) 150 - 400 LABDE INTERFACE RDW 14.9 (H) 11.6 - 14.8 LABDE INTERFACE Absolute 3.78 LABDE INTERFACE Neutrophil Count Neutrophils 83.1 (H) 37.0 - 80.0 LABDE INTERFACE Absolute Lymph 0.28 (L) 0.60 - 3.40 LABDE INTERFACE Count Lymphocytes 6.2 (L) 10.0 - 50.0 LABDE INTERFACE Absolute 0.4 LABDE INTERFACE Monocyte Count Monocytes 8.1 LABDE INTERFACE Absolute 0.1 LABDE INTERFACE Eosinophil Count Eosinophil 2.4 LABDE INTERFACE Absolute 0.0 LABDE INTERFACE Basophil Count Basophil 0.20 LABDE INTERFACE MPV 11.2 (H) 7.4 - 10.0 LABDE INTERFACE Specimen Blood Narrative Performed At LABDE INTERFACE Outside Lab Verified by Federico Phillips on 08/31/2019. Performing Organization Address City/State/[facility] Ph one Number LABDE INTERFACE * PROTEIN/CR RATIO,UR RAN (08/23/2019 9:37 AM CDT) Protein, Random 65 (H) 0 - 20 LABDE INTERFAC E Creatinine, 101.9 (H) 0.0 - 50.0 LABDE INTERFACE Random Protein/CR 0.64 LABDE INTERFACE ratio Specimen Urine - Urine Narrative Performed At LABDE INTERFACE Outside Lab Verified by Federico Phillips on 08/31/2019. 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
--- OUTSIDE RECORDS SUMMARY | 2019-09-28 08:40 | XMS REPORT | Encounter Summary ---
Author Author [facility] Organization [facility] Address Unknown Phone Unavailable Care Team Providers Care Mainspring Winder [employer] Oiler Name Role Phone Dania Barksdale MD PCP Jose Huff DO Unavailable Encounter Details Care Team Description Date Type Department Brea Hernández 08/30/[address] [address] Social History Date Tobacco Use Types Packs/Day [...] encounter Progress Notes * Brea Hernández - 08/30/2019 11:53 AM CDT SW received AKF alert that pt's varun needs SW's verification.SW reviewed varun which stated pt was approved for PIETER varun from 11/07/19-02/06/20. ALEX messaged AKF in the S portal stating varun is supposed to be from 08/08/19-11/06/19. ALEX asking for correction/clarifcation. Brea Hernández LMSW Transplant Conservation Assistant documented in this encounter Plan of Treatment Care Team Description Date Type Specialty Berta Harrison MD [address] [place] [address] Doroteo Enamorado MD [address] [place] [address] 10/02/2019 Hospital Radiology Encounter documented as of this encounter Goals Goal Patient Associated Recent Progress Patient-Stat Aut hor Goal Type Problems ed? Recover from illness [facility] Rajani Ac RN documented as of this encounter Visit Diagnoses Not on filedocumented in this encounter
--- OUTSIDE RECORDS SUMMARY | 2019-09-28 08:40 | XMS REPORT | Encounter Summary ---
Author Author [facility] Organization [facility] Address Unknown Phone Unavailable Care Team Providers Care Technical Manager [employer] Name Role Phone Dania Barksdale MD PCP Jose Huff DO Unavailable Encounter Details Care Team Description Date Type Department Kandy Gill MA Kidney transplanted; Immunosuppression (HCC) 08/31/2019 Orders Only [facility] [address] [address] Social History Date Tobacco Use [...] Date Type Specialty Berta Harrison MD [address] [place] [address] [phone] Doroteo Enamorado MD [address] [place] [address] [phone] 10/02/2019 Hospital Radiology Encounter documented as of this encounter Goals Goal Patient Associated Recent Progress Patient-Stat Aut hor Goal Type Problems ed? Recover from illness [facility] Rajani Ac RN documented as of this encounter Procedures Comments Procedure Name Priority Date/Time Associated Diag nosis URINALYSIS DIPSTICK Routine 09/04/2019 Kidney tra nsplanted REFLEX TO CULTURE 7:47 AM CDT Immunosuppression ( HCC) URINALYSIS MICROSCOPIC Routine 08/30/2019 Kidney transplanted REFLEX TO CULTURE 9:54 AM CDT Immunosuppression ( HCC) PROTEIN/CR RATIO,UR RAN Routine 08/30/2019 Kidney transplanted 9:54 AM CDT Immunosuppression (HCC) CBC AND DIFF Routine 08/30/2019 Kidney transpla nted 9:54 AM CDT Immunosuppression ([facility]) URIC ACID Routine 08/30/2019 Kidney transpla nted 9:54 AM CDT Immunosuppression (HCC) PHOSPHORUS Routine 08/30/2019 Kidney transpla nted 9:54 AM CDT Immunosuppression (HCC) MAGNESIUM Routine 08/30/2019 Kidney transpla nted 9:54 AM CDT Immunosuppression (HCC) COMPREHENSIVE METABOLIC Routine 08/30/2019 Kidney transplanted PANEL 9:54 AM CDT Immunosuppression ( HCC) documented in this encounter Results * URINALYSIS DIPSTICK REFLEX TO CULTURE (09/04/2019 7:47 AM CDT) Color,UA Yellow LABDE INTERFACE Turbidity,UA Clear LABDE INTERFACE Glucose,UA 2+ (A) Negative LABDE INTERFACE Bilirubin,UA Negative LABDE INTERFACE Ketones,UA Negative LABDE INTERFACE Specific 1.025 LABDE INTERFACE [place]-Urine Blood,UA 1+ (A) Negative LABDE INTERFACE pH,UA 5.0 LABDE INTERFACE Protein,UA 1+ (A) Negative LABDE INTERFACE Urobilinogen,UA 0.2 (A) 0.2 - 1.0 LABDE INTERFAC E Nitrite,UA Negative LABDE INTERFACE Leukocytes,UA Negative LABDE INTERFACE Specimen Urine Narrative Performed At LABDE INTERFACE Outside Lab Verified by Federico Phillips on 09/04/2019. Performing Organization Address City/State/[facility] Ph one Number LABDE INTERFACE * URINALYSIS MICROSCOPIC REFLEX TO CULTURE (08/30/2019 9:54 AM CDT) WBCs,UA Negative LABDE INTERFACE RBCs,UA Few (A) LABDE INTERFACE Bacteria,UA Negative LABDE INTERFACE Squamous 0-5 (A) LABDE INTERFACE Epithelial Cells Specimen Urine Narrative Performed At LABDE INTERFACE Outside Lab Verified by Kandy crowe 08/31/2019. Performing Organization Address [facility] Ph one Number LABDE INTERFACE * URIC ACID (08/30/2019 9:54 AM CDT) Uric Acid 5.7 2.6 - 7.2 mg/dL LABDE INTERFAC E Specimen Blood Narrative Performed At LABDE INTERFACE Outside Lab Verified by Kandy crowe 08/31/2019. Performing Organization Address [facility] Ph one Number LABDE INTERFACE * MAGNESIUM (08/30/2019 9:54 AM CDT) Magnesium 2.0 1.6 - 2.6 mg/dL LABDE INTERFAC E Specimen Blood Narrative Performed At LABDE INTERFACE Outside Lab Verified by Kandy crowe 08/31/2019. Performing Organization Address City/State/[facility] Ph one Number LABDE INTERFACE * COMPREHENSIVE METABOLIC PANEL (08/30/2019 9:54 AM CDT) Sodium 137 LABDE INTERFACE Potassium 5.6 (H) 3.5 - 5.3 LABDE INTERFACE Chloride 113 LABDE INTERFACE CO2 20 (L) 22 - 33 LABDE INTERFACE Anion Gap 10 LABDE INTERFACE Glucose 128 (H) 70 - 110 mg/dL LABDE INTERFACE Blood Urea 29 (H) 5 - 25 mg/dL LABDE INTERFACE Nitrogen Creatinine 2.35 (H) 0.50 - 1.50 mg/dL LABDE INTERF RAMON Calcium 8.6 8.3 - 10.4 mg/dL LABDE INTERFA CE Alk Phosphatase 106 35 - 130 U/L LABDE INTERFAC E AST (SGOT) 28 U/L LABDE INTERFACE ALT (SGPT) 20 6 - 45 U/L LABDE INTERFACE Total Bilirubin 0.2 0.2 - 1.2 mg/dL LABDE INTERFA CE Total Protein 6.3 6.0 - 8.3 g/dL LABDE INTERFACE Albumin 4.3 3.6 - 5.1 g/dL LABDE INTERFACE eGFR Non 30 (L) >59 LABDE INTERFACE Specimen Blood Narrative Performed At LABDE INTERFACE Outside Lab Verified by Kandy crowe 08/31/2019. Performing Organization Address City/State[facility] Number LABDE INTERFACE * CBC AND DIFF (08/30/2019 9:54 AM CDT) White Blood 5.46 LABDE INTERFACE Cells RBC 3.69 (L) 4.20 - 5.40 LABDE INTERFACE Hemoglobin 11.8 (L) 14.0 - 17.0 LABDE INTERFACE Hematocrit 36.8 (L) 42.0 - 52.0 LABDE INTERFACE MCV 99.7 (H) 80.0 - 97.0 LABDE INTERFACE MCH 32.0 (H) 27.0 - 31.2 pg LABDE INTERFACE MCHC 32.1 32.0 - 36.0 g/dL LABDE INTERFA CE Platelet Count 145 (L) 150 - 400 K/uL LABDE INTERFACE RDW 14.2 11.6 - 14.8 % LABDE INTERFACE Absolute 4.62 2.00 - 6.90 K/uL LABDE INTERFA CE Neutrophil Count Neutrophils 84.6 (H) 37.0 - 80.0 % LABDE INTERFACE Absolute Lymph 0.25 (L) 0.60 - 3.40 LABDE INTERFACE Count Lymphocytes 4.6 (L) 10.0 - 50.0 % LABDE INTERFACE Absolute 0.5 0.0 - 0.9 K/uL LABDE INTERFACE Monocyte Count Monocytes 8.8 0.0 - 12.0 % LABDE INTERFACE Absolute 0.1 LABDE INTERFACE Eosinophil Count Eosinophil 1.6 LABDE INTERFACE Absolute 0.0 LABDE INTERFACE Basophil Count Basophil 0.40 LABDE INTERFACE MPV 11.6 (H) 7.4 - 10.0 LABDE INTERFACE Specimen Blood Narrative Performed At LABDE INTERFACE Outside Lab Verified by Kandy crowe 08/31/2019. Performing Organization Address City/[facility] Ph one Number LABDE INTERFACE * PHOSPHORUS (08/30/2019 9:54 AM CDT) Phosphorus 3.0 mg/dL LABDE INTERFACE Specimen Blood Narrative Performed At LABDE INTERFACE Outside Lab Verified by Kandy crowe 08/31/2019. Performing Organization Address City/[facility] Ph one Number LABDE INTERFACE * PROTEIN/CR RATIO,UR RAN (08/30/2019 9:54 AM CDT) Protein, Random 66 (H) 0 - 20 LABDE INTERFAC E Creatinine, 103.9 (H) 0.0 - 50.0 mg/dl LABDE INTERFA CE Random Protein/CR 0.63 LABDE INTERFACE ratio Specimen Urine - Urine Narrative Performed At LABDE INTERFACE Outside Lab Verified by Kandy crowe 08/31/2019. Performing Organization Address City/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
--- OUTSIDE RECORDS SUMMARY | 2019-09-28 08:40 | XMS REPORT | Encounter Summary ---
Author Author [facility] Organization [facility] Address Unknown Phone Unavailable Care Team Providers Care Gas Meter Mechanic Name Role Phone Dania Barksdale MD PCP Jose Huff DO Unavailable Encounter Details Care Team Description Date Type Department Lucia Trinidad RN Hyperglycemia (Primary Dx); Iron deficiency; Hyperlipidemia, unspecified hyperlipidemia type; Vitamin D deficiency 08/24/2019 Orders Only The [place] [address] [address] Social History Date Tobacco Use Types Packs/Day [...] Date Type Specialty Berta Harrison MD [address] [place] [address] [phone] Doroteo Enamorado MD [address] [place] [address] [phone] 10/02/2019 Hospital Radiology Encounter Order Schedule Name Type Priority Associated Diag noses Expected: 08/24/2019, Expires: IRON, TOTAL SERUM Lab Routine Iron deficie ncy Expected: 08/24/2019 (Approximate), Expi res: 08/23/2020 LIPID PROFILE Lab Routine Hyperlipidemia, unspecified hyperlipidemia type documented as of this encounter Goals Goal Patient Associated Recent Progress Patient-Stat Aut hor Goal Type Problems ed? Recover from illness [facility] Rajani Ac RN documented as of this encounter Results * 25-OH VITAMIN D (D2 + D3) (09/17/2019 8:16 AM CDT) Vitamin 28.40 25.00 - 100.00 ng/mL LABDE INT ERFACE D(25-OH)Total Specimen Blood Narrative Performed At LABDE INTERFACE Outside Lab Verified by Kandy crowe 09/17/2019. Performing Organization Address [facility] Ph one Number LABDE INTERFACE * TRANSFERRIN (09/17/2019 8:16 AM CDT) Transferrin 171 (L) 200 - 370 ug/dL LAB[facility] INTERFAC E Specimen Blood Narrative Performed At LABDE INTERFACE Outside Lab Verified by Kandy crowe 09/17/2019. Performing Organization Address [facility] Ph one Number LABDE INTERFACE * IRON + BINDING CAPACITY + %SAT+ FERRITIN (09/17/2019 8:16 AM CDT) Iron 99 70 - 200 ug/dL LABDE INTERFACE Iron 214 (L) 273 - 456 ug/dL LABDE INTERFAC E Binding-TIBC % Saturation 46.32 15.00 - 55.00 % LABDE INTERFAC E Specimen Blood Narrative Performed At LABDE INTERFACE Outside Lab Verified by Kandy crowe 09/17/2019. Performing Organization Address City/[facility] Ph one Number LABDE INTERFACE * HEMOGLOBIN A1C (09/17/2019 8:16 AM CDT) Hemoglobin A1C 5.80 LAB[facility] INTERFACE Specimen Blood Narrative Performed At LABDE INTERFACE Outside Lab Verified by Kandy crowe 09/17/2019. Performing Organization Address [facility] Ph one Number LABDE INTERFACE documented in this encounter Visit Diagnoses Diagnosis Hyperglycemia Other abnormal glucose Iron deficiency Iron deficiency anemia, unspecified Hyperlipidemia, unspecified hyperlipide panda type Vitamin D deficiency Unspecified vitamin D deficiency documented in this encounter
--- OUTSIDE RECORDS SUMMARY | 2019-09-28 08:40 | XMS REPORT | Encounter Summary ---
Author Author [facility] Organization [facility] Address Unknown Phone Unavailable Care Team Providers Care Oracle Identity Management Consultant Name Role Phone Dania Barksdale MD PCP Jose Huff DO Unavailable Reason for Visit * Reason Comments Results Prograf - no change Encounter Details Care Team Description Date Type Department Lucia Trinidad, RN Results (Prograf - no change) 08/29/[address] Tele[address] [address] Social History Date Tobacco Use Types Packs/Day [...] Telephone Encounter - Lucia Trinidad, JAIME - 08/29/2019 11:54 AM CDT Returned pt's call. Pt will f/u with PCP on refill for Flomax. Reviewed pt's lab s from 08/22 and 08/27 via Lab[facility]. Creat stable at 2.3 and 2.8, respectively. Tac l evel therapeutic at 8.2. Discussed lab results with pt and pt stated he has not been drinking enough water. Pt reminded to continue good hydration. Pt will repe at labs on , 08/29. * Telephone Encounter - Lucia Trinidad RN - 08/29/2019 11:54 AM CDT ----- Message from Yahaira Shetty sent at 08/29/2019 11:00 AM CDT ----- Received an incoming call from: Caller Name: Stef Relationship to Patient: self Callback Number: [phone] Purpose of Call: Stef wants to know if he is going to get his Prescription Floma x filled again. documented in this encounter Plan of Treatment Care Team Description Date Type Specialty Berta Harrison MD [address] [place] [address] Doroteo Enamorado MD [address] [place] [address] [phone] 10/02/2019 Hospital Radiology Encounter documented as of this encounter Goals Goal Patient Associated Recent Progress Patient-Stat Aut hor Goal Type Problems ed? Recover from illness [facility] Rajani Ac, JAIME documented as of this encounter Visit Diagnoses Not on filedocumented in this encounter
--- OUTSIDE RECORDS SUMMARY | 2019-09-28 08:40 | XMS REPORT | Encounter Summary ---
Author Author [facility] Organization [facility] Address Unknown Phone Unavailable Care Team Providers Care Hybrid Derivatives Trader Name Role Phone Dania Barksdale MD PCP Jose Huff DO Unavailable Encounter Details Care Team Description Date Type Department Kandy Gill MA Kidney transplanted; Immunosuppression (HCC) 09/03/2019 Orders Only The [facility] [address] [address] Social History Date Tobacco Use [...] Date Type Specialty Berta Harrison MD [address] [place] [address] [phone] Doroteo Enamorado MD [address] [place] [address] [phone] 10/02/2019 Hospital Radiology Encounter documented as of this encounter Goals Goal Patient Associated Recent Progress Patient-Stat Aut hor Goal Type Problems ed? Recover from illness [facility] Rajani Ac RN documented as of this encounter Procedures Comments Procedure Name Priority Date/Time Associated Diag nosis TACROLIMUS LEVEL(FK506) Routine 08/30/2019 Kidney transplanted 9:54 AM CDT Immunosuppression (HCC) CMV QUANT PCR-BLOOD Routine 08/28/2019 Kidney tra nsplanted 8:30 AM CDT Immunosuppression (HCC) BK VIRUS DNA, QUANT Routine 08/28/2019 Kidney tra nsplanted PLASMA 8:30 AM CDT Immunosuppression ( HCC) documented in this encounter Results * TACROLIMUS LEVEL(FK506) (08/30/2019 9:54 AM CDT) Tacrolimus 5.1 [facility] INTERFACE Specimen Blood Narrative Performed At LABDE INTERFACE Outside Lab Verified by Kandy crowe 09/03/2019. Performing Organization Address City/[facility] Ph one Number LABDE INTERFACE * CMV QUANT PCR-BLOOD (08/28/2019 8:30 AM CDT) CMV DNA Quant Negative LABDE INTERFACE PCR Specimen Blood Narrative Performed At LABDE INTERFACE Outside Lab Verified by Kandy crowe 09/03/2019. Performing Organization Address City/State[facility] Ph one Number LABDE INTERFACE * BK VIRUS DNA, QUANT PLASMA (08/28/2019 8:30 AM CDT) BK Virus Plasma NEGATIVE LAB[facility] INTERFACE Quant Specimen Blood Narrative Performed At LABDE INTERFACE Outside Lab Verified by Kandy crowe 09/03/2019. 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
--- OUTSIDE RECORDS SUMMARY | 2019-09-28 08:40 | XMS REPORT | Encounter Summary ---
Author Author [facility] Organization [facility] Address Unknown Phone Unavailable Care Team Providers Care Button Maker And Installer Name Role Phone Dania Barksdale MD PCP Jose Huff DO Unavailable Reason for Visit * Reason Comments Financial/Insurance Questions Encounter Details Care Team Description Date Type Department Brea Hernández Financial/Insurance Questions 09/03/2019 Telephone The [address] [address] Social History Date Tobacco Use Types Packs/Day [...] * Telephone Encounter - Brea Hernández - 09/03/2019 2:03 PM CDT SW updated by team, pt called and is needs to speak with SW. SW returned call. P t states his [employer] reimbursement check arrived today. He doesn't have his own bank account and shares an account with his spouse. They will drive to the bank soon to deposit the money however states the local branch of his bank closed so now has to drive about 40 miles. SW explained she attempted to request direct deposi t on the reimbursement however it did not go through. SW encouraged him to call the bank to inquire if there is an delano and online deposit they can use instead. SW also reminded pt to contact her in October to reapply for [employer] assistance since h is varun is only good through 11/06/19. Pt voiced understanding and denies any ot her needs at this time. Brea Hernández LMSW Transplant Vocational Case Manager documented in this encounter Plan of Treatment Care Team Description Date Type Specialty Berta Harrison MD [address] [place] [address] Doroteo Enamorado MD [address] [place] [address] [phone] 10/02/2019 Hospital Radiology Encounter documented as of this encounter Goals Goal Patient Associated Recent Progress Patient-Stat Aut hor Goal Type Problems ed? Recover from illness [facility] Rajani cA RN documented as of this encounter Visit Diagnoses Not on filedocumented in this encounter
--- OUTSIDE RECORDS SUMMARY | 2019-09-28 08:40 | XMS REPORT | Encounter Summary ---
Author Author [facility] Organization [facility] Address Unknown Phone Unavailable Care Team Providers Care Ingot Car Operator Name Role Phone Dania Barksdale MD PCP Joes Huff DO Unavailable Encounter Details Care Team Description Date Type Department Brea Hernández 08/27/[address] [facility] [address] [address] Social History Date Tobacco Use Types Packs/Day [...] encounter Progress Notes * Brea Hernández - 08/27/2019 3:54 PM CDT SW received notification from [place] stating they need bill from pt's insurance to accept his varun request. SW e-mailed pt asking if [employer] letter had arrived yet. Pt responded with copy of letter. SW uploaded [employer] letter with confirmed monthly payments on [employer] portal. Brea Hernández LMSW Transplant Needle Leader documented in this encounter Plan of Treatment Care Team Description Date Type Specialty Berta Harrison MD [address] [place] [address] Doroteo Enamorado MD [address] [place] [address] 10/02/2019 Hospital Radiology Encounter documented as of this encounter Goals Goal Patient Associated Recent Progress Patient-Stat Aut hor Goal Type Problems ed? Recover from illness [facility] Rajani Ac, RN documented as of this encounter Visit Diagnoses Not on filedocumented in this encounter
--- OUTSIDE RECORDS SUMMARY | 2019-09-28 08:41 | XMS REPORT | Encounter Summary ---
Author Author [facility] Organization [facility] Address Unknown Phone Unavailable Care Team Providers Care Orchard Sprayer Name Role Phone Dania Barksdale MD PCP Jose Huff DO Unavailable Encounter Details Care Team Description Date Type Department Federico Phillips Kidney transplanted; Immunosuppression (HCC) 08/15/2019 Orders Only The [facility] [address] [address] Social History Date Tobacco Use [...] history available. Date Recorded COVID-19 Exposure Response 08/09/2019 12:14 PM CDT In the last month, have you been in contact with No / Unsure someone who was confirmed or suspected to have Coronavirus / COVID-19? documented as of this encounter Functional Status Date of Assessment Functional Status Response 07/24/2019 Does the patient have a hearing impairment: Yes 07/24/2019 Does the patient have a visual impairment: Yes 07/24/2019 Does the patient have impaired ambulation: No 07/24/2019 Does the patient have an activity of daily living No (ADL) impairment: 07/24/2019 Does the patient have an instrumental activity of No daily living (IADL) impairment: Date of Assessment Cognitive Status Response 07/24/2019 Does the patient have a cognitive impairment: No documented as of this encounter Plan of Treatment Care Team Description Date Type Specialty Berta Harrison MD [address] [place] [address] [phone] Doroteo Enamorado MD [address] [place], [place] [id number] 10/02/2019 Hospital Radiology Encounter documented as of this encounter Goals Goal Patient Associated Recent Progress Patient-Stat Aut hor Goal Type Problems ed? Recover from illness [facility] Rajani Ac RN documented as of this encounter Procedures Comments Procedure Name Priority Date/Time Associated Diag nosis TACROLIMUS LEVEL(FK506) Routine 08/13/2019 Kidney transplanted 7:45 AM CDT Immunosuppression (HCC) documented in this encounter Results * TACROLIMUS LEVEL(FK506) (08/13/2019 7:45 AM CDT) Tacrolimus 19.4 [facility] INTERFACE Specimen Blood Narrative Performed At LABDE INTERFACE Outside Lab Verified by Federico Phillips on 08/15/2019. 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
--- OUTSIDE RECORDS SUMMARY | 2019-09-28 08:41 | XMS REPORT | Encounter Summary ---
Author Author [facility] Organization [facility] Address Unknown Phone Unavailable Care Team Providers Care Joint Creaser Name Role Phone Dania Barksdale MD PCP Jose Huff DO Unavailable Reason for Visit * Reason Comments s/p Kidney Transplant-Routine Follow-up Encounter Details Care Team Description Date Type Department Berta Harrison MD [address] [place] [address] Immunosuppression (HCC) (Primary Dx); Aftercare following organ transplant 08/20/2019 Office Visit [facility] [address] [id number] Social History Date Tobacco Use Types Packs/Day [...] Signs Reading Time Taken Comments Vital Sign 128/68 08/20/2019 9:26 AM CDT Blood Pressure 89 08/20/2019 9:26 AM CDT Pulse 36.8 C (98.2 F) 08/20/2019 9:20 AM CDT Temperature - - Respiratory Rate 97% 08/20/2019 9:20 AM CDT Oxygen Saturation - - Inhaled Oxygen Concentration 95.6 kg (210 lb 12.8 oz) 08/20/2019 9:20 AM CDT Weight 167.6 cm (5' 6") 08/20/2019 9:20 AM CDT Height 34.02 08/20/2019 9:20 AM CDT Body Mass Index documented in [...] * Patient Instructions* Lucia Trinidad RN - 08/20/2019 9:00 AM CDT Return to see Dr. Berta Harrison in 4 weeks via TeleHealth on a . Needs t o have MyChart set up. Repeat labs Twice weekly, Mondays and Further testing needs: None today Medication changes: Refills sent to Pharmacy and will be shipped to your hous e. -Will have Vita Guidry with Social Work call you documented in this encounter Progress Notes * Lucia Trinidad, RN - 08/20/2019 9:00 AM CDT Last visit: 07/24/1905/30: HD session while inpatient 06/01: hospital d/c 06/04: HD session as outpatient 06/14: CORI drain removed. 06/27: Metoprolol stopped for BPs 90s. 06/28: Decreased Prograf 09/10 to 4/. US neg, DSA/Allosure neg, CXR neg, Flu neg. 07/08: Ureteral stent removed. 07/11: Prograf increased from 4/4 to 5/5 07/16: Prophylactic Tamiflu, renally dosed 07/18: Prograf decreased from 5/5 to 4/5. 07/23: H1N1 and Rhinovirus pos. Myfortic lowered to 360mg BID. 07/25: 1st Epo injection 08/01: 2nd Epo 08/02: Prograf decreased from 4/5 to 4/4 08/08: 3rd Epo 08/14: Prograf decreased 08/10 to 07/09 08/15: 4th Epo, Hgb 10.3 08/19 Plan: Pt reports feeling well. Pt having lows in blood sugar, pt seeing End ocrinology for maintenance. Pt reports tremor, present prior to transplant. 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 Donor: DCD from a female donor in early 50's KDPI: 60% CPRA: 0% DSA: none Induction: Thymo for steroid avoidance, continued on steroid given rise in Cr af ter initial downtrend CMV status: D+/R- Post-op course: DGF, last HD was 06/04/19 Ureteral stent removal: July 08 Baseline Scr: TBD Referring Media Production Support Manager: Malathi Owen [address] [facility] [address] [place] [address] HPI We had the pleasure of meeting [...] History of ulcers, ports endoscopy done at [facility] in [place] in 2015, Surgical History: Procedure Laterality Date ALLOTRANSPLANTATION KIDNEY FROM NON LIVING DONOR WITHOUT RECIPIENT NEPHRECTO MY N/A 05/27/2019 Performed by Melecio Nielsen MD at [facility] [place] W/SIMPLE REMOVAL STONE & STENT 07/11/2019 Social History Socioeconomic History Marital status: Spouse name: Not on file Number of children: Not on file Years of education: Not on file Highest education level: Not on file Occupational History Not on file Tobacco Use Smoking status: Former Smoker Packs/day: 2.00 Years: 30.00 Pack years: 60.00 Last attempt to quit: 12/17/2001 Years since quittin.6 Smokeless tobacco: Never Used Substance and Sexual [...] food., D isp: 90 tablet, Rfl: 1 benzonatate (TESSALON PERLES) 100 mg capsule, Take one capsule by mouth geena ry 8 hours as needed for Cough., Disp: 20 capsule, Rfl: 1 ergocalciferol (VITAMIN D-2) 1,250 mcg (50,000 unit) capsule, Take one caps ule by mouth every 7 days., Disp: 12 capsule, Rfl: 0 ferrous sulfate (FEOSOL) 325 mg (65 mg iron) tablet, Take one tablet by svetlana twice daily. Take on an empty stomach at least 1 hour before or 2 hours after food., Disp: 180 tablet, Rfl: 3 fluoxetine (PROZAC) 40 mg capsule, Take 40 mg by mouth daily., Disp: , Rfl: insulin pump -ASPART- Patients Own, by SubQ Pump route Three times daily wi meals and as needed., Disp: , Rfl: liraglutide (VICTOZA) 0.6 mg/0.1 mL (18 mg/3 mL) injection pen, Inject 0.6 mg under the skin daily., Disp: , Rfl: Miscellaneous Medical Supply [facility] [place], Use to monitor blood pressure as nire d., Disp: 1 each, Rfl: [address] (MYFORTIC) 180 mg TbEC tablet, Take two tablets by mouth t wi daily., Disp: 120 tablet, Rfl: [address](+) (PRILOSEC) 40 mg capsule, Take 40 mg by mouth daily before breakfast., Disp: , Rfl: oseltamivir (TAMIFLU) 30 mg capsule, Take one capsule by mouth every 48 davis rs., Disp: 5 capsule, Rfl: 0 predniSONE (DELTASONE) 5 mg tablet, Take one [...] at bedtime daily., Disp: , Rfl: trimethoprim/sulfamethoxazole (BACTRIM) 80/400 mg tablet, Take one tablet b y mouth three times weekly on Tuesday, Tuesday, Tuesday., Disp: 30 tablet, Rfl: 11 valGANciclovir (VALCYTE) 450 mg tablet, Take one tablet by mouth twice week ly. Tue/, Disp: 60 tablet, Rfl: 5 VENTOLIN HFA 90 mcg/actuation aerosol inhaler, Inhale two puffs by mouth in to the lungs every 6 hours as needed for Wheezing or Shortness of Breath. Shake well before use., Disp: 54 g, Rfl: 0 Physical Exam: There were no vitals filed for this visit.There is no height or weight on file t o calculate BMI. General: NAD, A+Ox4, calm and pleasant. Appears [...] CMP: CMP Latest Ref Rng & Units 08/16/2019 08/13/2019 08/09/2019 08/06/2019 08/02/2019 NA 134 - 148 mmol/L 141 139 137 140 139 K 3.5 - 5.3 mmol/L 5.5(H) 4.7 4.7 4.7 4.6 CL 95 - 114 118(H) 115(H) 115(H) 117(H) 117(H) CO2 22 - 33 mEq/L 17(L) 20(L) 16(L) 18(L) 16(L) GAP - 12 9 11 10 11 BUN 5 - 25 35(H) 27(H) 33(H) 27(H) 35(H) CR 0.50 - 1.50 mg/dL (calc) 2.39(H) 2.62(H) 2.43(H) 2.54(H) 3.06(H) GLUX 70 - 100 MG/DL - - - - - CA - 8.6 8.9 8.6 8.6 8.9 TP - 6.3 6.2 6.0 5.9(L) 6.1 ALB - 4.2 4.3 4.1 - 4.1 ALKP - 100 108 93 102 97 ALT - 19 17 15 16 14 TBILI mg/dL (calc) 0.3 0.3 0.3 0.3 0.2 GFR >59 - - 29(L) 27(L) 22(L) GFRAA >60 mL/min - - - - - No results found for: LIPASE No results found for: TAO CMV DNA Quant PCR Date Value 08/15/2019 NEGATIVE 07/24/2019 CMV DNA NOT DETECTED [...] detects and quantitates CMV DNA using the [employer] RealTime assay, and is approved by the FDA for monitoring hematopoietic stem cell transplant patients who are undergoing anti-CMV therapy. Please correlate results with the clinical status of the patient. No results found for: COPIES No results found for: EBVDNAQT TACROLIMUS LEVEL: Tacrolimus (no units) Date Value 08/13/2019 19.4 08/09/2019 10.0 08/06/2019 11.6 08/02/2019 19.7 07/30/2019 20.7 (HH) 07/26/2019 14.4 07/19/2019 8.4 07/16/2019 12.3 CBC with Diff: CBC with Diff Latest Ref Rng & Units 08/16/2019 08/13/2019 WBC 5.00 - 10.00 K/uL 5.22 3.99(L) RBC 4.20 - 5.40 3.24(L) 3.38(L) HGB 14.0 - 17.0 10.3(L) 10.8(L) HCT 42.0 - 52.0 32.6(L) 33.6(L) MCV 80.0 - 97.0 100.6(H) 99.4(H) MCH 27.0 - 31.2 pg 31.8(H) 32.0(H) MCHC 32.0 - 36.0 g/dL 31.6(L) 32.1 RDW 11.6 - 14.8 % 15.4(H) 15.4(H) PLT K/uL 161 183 MPV 7.4 - 10.0 11.2(H) 11.4(H) NEUT 37.0 - 80.0 % 82.9(H) 78.9 ANC 2.00 - 6.90 K/uL 4.33 3.15 LYMA 24 - 44 % - - ALYM 0.60 - 3.40 0.26(L) 0.29(L) ANGELA 4 - 12 % - - AMONO 0.0 - 0.9 K/uL 0.5 0.4 EOSA 0 - 5 % - - AEOS 0.0 - 0.7 K/uL 0.1 0.1 BASA 0 - 2 % - - ABAS 0.0 - 0.2 K/uL 0.0 0.0 Hemoglobin A1C (%) Date Value 05/27/2019 7.9 (H) 04/19/2019 8.4 (H) 12/17/2016 11.4 (H) Urinalysis: Lab Results Component Value Date/Time UCOLOR Yellow 08/16/2019 09:30 AM TURBID Clear 08/16/2019 09:30 AM USPGR 1.020 08/16/2019 09:30 AM UPH 5.5 08/16/2019 09:30 AM UPROTEIN 1+ (A) 08/16/2019 09:30 AM UAGLU Negative 08/16/2019 09:30 AM UKET Negative 08/16/2019 09:30 AM UBILE Negative 08/16/2019 09:30 AM UBLD 2+ (A) 08/16/2019 09:30 AM UROB 0.2 (A) 08/16/2019 09:30 AM Protein/CR ratio (no units) Date Value 08/09/2019 0.39 08/02/2019 0.32 07/30/2019 0.42 07/26/2019 0.35 07/24/2019 0.8 Imaging: Results for orders placed during the [...] slow to trend down, annie today at 2.06 ( LDH, hapto, BK, CMV was done last visit was -ve, Allosure 0.2 DSA -ve) - ISUARA 06/28 elevated RI, with stent in place, mild ectasia of collecting system, organized hematoma - Stent removed on 07/09/2019 # Immunosuppression - On maintenance Triple drug therapy - Goal tacrolimus level of goal 10-15 ng/mL (MEIA) or 8-12 mcg/L (HPLC). FKL 11. 4 - Currently taking Prograf 3mg BID, pending trough, Holding Myfortic for recent Flu - will resume today - Keep Prednisone 5 mg # ID Proph - CMV D+/R- to treat with Valcyte for 6 months post transplant - PJP Prophylax, to treat with Bactrim for 1 year post transplant - Completed Nystatin # Hypertension: BP is acceptable # DM/ Hyperglycemia - On Insulin pump - Following with Endo - C-Peptide <0.1 in 2017 # Anemia - Hb 11.5, Tsat 27%, ferritin 883, on iron tabs - will stop Epo # Electrolytes: - Phos,mag, Na, K WNL # Incidental injury over left thumb - healed # General health maint. By PCP. - Rescheduled cataract surgery-for at least 3 months after transplant RTC 4 weeks via telehealth Labs twice a week Sincerely, Berta Harrison MD Cc: Malathi Owen Cc: Dania Barksdale Please contact the [facility] at [phone] for any transplant related questions or concerns that may arise . documented in this encounter Plan of Treatment Care Team Description Date Type Specialty Berta Harrison MD [address] [place] [address] Doroteo Enamorado MD [address] [place] [address] 10/02/2019 Hospital Radiology Encounter documented as of this encounter Goals Goal Patient Associated Recent Progress Patient-Stat Aut hor Goal Type Problems ed? Recover from illness [facility] Rajani Ac RN documented as of this encounter Visit Diagnoses Diagnosis Immunosuppression (HCC) Unspecified disorder of immune mechanis m Aftercare following organ transplant documented in this encounter
--- OUTSIDE RECORDS SUMMARY | 2019-09-28 08:41 | XMS REPORT | Encounter Summary ---
Author Author [facility] Organization [facility] Address Unknown Phone Unavailable Care Team Providers Care Lift Builder Whole Name Role Phone Dania Barksdale MD PCP Jose Huff DO Unavailable Encounter Details Care Team Description Date Type Department Brea Hernández 08/21/[address] [address] Social History Date Tobacco Use Types Packs/Day [...] encounter Progress Notes * Brea Hernández - 08/21/2019 2:10 PM CDT SW spoke with pt later in the day. Pt states he does not get bills or statements from [employer] for payment. SW to reach out to his previous HD center SW to clarify what document she uses. SW explained [facility] is not allowing tx center to be updated . SW explained she messaged their portal and is hoping to hear back soon. Pt den ies any other needs. Brea Hernández LMSW Transplant Lumber Trimmer * Brea Hernández - 08/21/2019 2:10 PM CDT SW received e-mail from spouse, Gabo [email or web address] with daniel ank statement with BCBS deduction for [facility]. SW responded asking if she can send a gain with pt's full name in the screen and also send copy of the bills of [employer]BS i n which they requesting reimbursement (Jun-August). Brea Hernández LMSW Transplant Lumber Trimmer documented in this encounter Plan of Treatment Care Team Description Date Type Specialty Berta Harrison MD [address] [place] [address] Doroteo Enamorado MD [address] [place] [address] 10/02/2019 Hospital Radiology Encounter documented as of this encounter Goals Goal Patient Associated Recent Progress Patient-Stat Aut hor Goal Type Problems ed? Recover from illness [facility] Rajani Ac RN documented as of this encounter Visit Diagnoses Not on filedocumented in this encounter
--- OUTSIDE RECORDS SUMMARY | 2019-09-28 08:41 | XMS REPORT | Encounter Summary ---
Author Author [facility] Organization [facility] Address Unknown Phone Unavailable Care Team Providers Care Educational Advisor Name Role Phone Dania Barksdale MD PCP Jose Huff DO Unavailable Encounter Details Care Team Description Date Type Department Berta Harrison MD [address] [place] [address] [phone] 08/20/2019 [facility] Social History Date Tobacco Use Types Packs/Day [...] impairment: No documented as of this encounter Medications at Time of Discharge Start Date End Date Medication Sig Dispensed Refills 06/01/2019 acetaminophen (TYLENOL) Take two 100 tablet 1 325 mg tablet tablets by mouth every 4 hours as needed. 08/20/2019 aspirin EC 81 mg tablet Take one 90 tablet 1 tablet by mouth daily. Take with food. 08/20/2019 ergocalciferol (VITAMIN Take one 12 capsule 0 D-2) 1,250 mcg (50,000 capsule by unit) capsule mouth every 7 days. 06/22/2019 ferrous sulfate (FEOSOL) Take one 180 tablet 3 325 mg (65 mg iron) tablet by tablet mouth twice daily. Take on an empty stomach at least 1 hour before or 2 hours after food. fluoxetine (PROZAC) 40 mg Take 40 mg by 0 capsule mouth daily. insulin pump -ASPART- by SubQ Pump 0 Patients Own route Three times daily with meals and as needed. liraglutide (VICTOZA) 0.6 Inject 0.6 mg 0 mg/0.1 mL (18 mg/3 mL) under the injection pen skin daily. 06/01/2019 Miscellaneous Medical Use to 1 each 0 Supply misc monitor blood pressure as directed. 08/10/[address] Take two 120 tablet 11 (MYFORTIC) 180 mg TbEC tablets by tablet mouth twice daily. omeprazole DR(+) Take 40 mg by 0 (PRILOSEC) 40 mg capsule mouth daily before breakfast. 08/20/2019 predniSONE (DELTASONE) 5 Take one 30 tablet 11 mg tablet tablet by mouth daily with breakfast. pregabalin (LYRICA) 75 mg Take 75 mg by 0 capsule mouth three times daily. 06/12/2019 promethazine (PHENERGAN) Take one 30 tablet 0 25 mg tablet tablet by mouth every 6 hours as needed for Nausea or Vomiting. 08/15/2019 tacrolimus (PROGRAF) 1 mg Take three 180 capsule 11 capsule capsules by mouth twice daily. tamsulosin (FLOMAX) 0.4 Take 0.4 mg 0 mg capsule by mouth daily. Do not crush, chew or open capsules. Take 30 minutes following the same meal each day. 06/05/2019 traMADol (ULTRAM) 50 mg Take one 30 tablet 0 tablet tablet by mouth every 6 hours as needed for Pain. traZODone (DESYREL) 100 Take 100 mg 0 mg tablet by mouth at bedtime daily. 07/24/2019 VENTOLIN HFA 90 Inhale two 54 g 0 mcg/actuation aerosol puffs by inhaler mouth into the lungs every 6 hours as needed for Wheezing or Shortness of Breath. Shake well before use. 07/24/2019 09/20/2019 benzonatate (TESSALON Take one 20 capsule 1 PERLES) 100 mg capsule capsule by mouth every 8 hours as needed for Cough. 07/25/2019 09/20/2019 trimethoprim/sulfamethoxa Take one 30 tablet 11 zole (BACTRIM) 80/400 mg tablet by tablet mouth three times weekly on Tuesday, Tuesday, Tuesday. 06/04/2019 09/20/2019 valGANciclovir (VALCYTE) Take one 60 tablet 5 450 mg tablet tablet by mouth twice weekly. Tue/ documented as of this encounter Plan of Treatment Care Team Description Date Type Specialty Berta Harrison MD [address] [place], [place] [id number] Doroteo Enamorado MD [address] [place], [place] [id number] 10/02/2019 Hospital Radiology Encounter documented as of this encounter Goals Goal Patient Associated Recent Progress Patient-Stat Aut hor Goal Type Problems ed? Recover from illness [facility] Rajani Ac RN documented as of this encounter Visit Diagnoses Not on filedocumented in this encounter
--- OUTSIDE RECORDS SUMMARY | 2019-09-28 08:41 | XMS REPORT | Encounter Summary ---
Author Author [facility] Organization [facility] Address Unknown Phone Unavailable Care Team Providers Care Senior Application Security Consultant Name Role Phone Dania Barksdale MD PCP Jose Huff DO Unavailable Reason for Visit * Reason Comments Results Prograf - no change Encounter Details Care Team Description Date Type Department Karis Alfaro, RN Results (Prograf - no change) 08/09/[address] [id number] Social History Date Tobacco Use Types Packs/Day [...] encounter Miscellaneous Notes * Addendum Note - Karis Alfaro, RN - 08/10/2019 11:04 AM CDT Addended by: KARIS ALFARO on: 08/10/2019 11:04 AM Modules accepted: Orders * Telephone Encounter - Karis Alfaro RN - 08/09/2019 2:37 PM CDT Reviewed pt's labs from 08/05 and 08/08. Creat improving to 2.43. Tacro level thera peutic at 11.6 on 08/05, level pending from 08/08. Pt called with lab results, no a nswer but LVM. Pt scheduled for appt on 08/12. documented in this encounter Plan of Treatment Care Team Description Date Type Specialty Berta Harrison MD [address] [place] [address] Doroteo Enamorado MD [address] [place] [address] [phone] 10/02/2019 Hospital Radiology Encounter documented as of this encounter Goals Goal Patient Associated Recent Progress Patient-Stat Aut hor Goal Type Problems ed? Recover from illness [facility] Rajani Ac RN documented as of this encounter Visit Diagnoses Not on filedocumented in this encounter
--- OUTSIDE RECORDS SUMMARY | 2019-09-28 08:41 | XMS REPORT | Encounter Summary ---
Author Author [facility] Organization [facility] Address Unknown Phone Unavailable Care Team Providers Care Herb Doctor Name Role Phone Dania Barksdale MD PCP Jose Huff DO Unavailable Reason for Visit * Reason Comments Results Prograf 08/10 to 07/09 Encounter Details Care Team Description Date Type Department Lucia Trinidad RN Results (Prograf 08/10 to 07/09) 08/15/[address] [address] Social History Date Tobacco Use Types Packs/Day [...] Telephone Encounter - Lucia Trinidad RN - 08/15/2019 3:50 PM CDT Reviewed pt's labs from 08/12. Creat stable at 2.62. Tacro level supratherapeutic at 19.4. Called pt and confirmed he is taking correct dose. Discussed with Dr. Terri Harrison and will decrease Prograf from 08/10 to 3/3. Called pt to discuss medicati on dose change, pt read back instructions correctly. Pt will repeat labs tomorro w, 08/15. documented in this encounter Plan of Treatment Care Team Description Date Type Specialty Berta Harrison MD [address] [place] [address] Doroteo Enamorado MD [address] [place] [address] 10/02/2019 Hospital Radiology Encounter documented as of this encounter Goals Goal Patient Associated Recent Progress Patient-Stat Aut hor Goal Type Problems ed? Recover from illness [facility] Rajani Ac, JAIME documented as of this encounter Visit Diagnoses Not on filedocumented in this encounter
--- OUTSIDE RECORDS SUMMARY | 2019-09-28 08:41 | XMS REPORT | Encounter Summary ---
Author Author [facility] Organization [facility] Address Unknown Phone Unavailable Care Team Providers Care Desktop Manager Name Role Phone Dania Barksdale MD PCP Jose Huff DO Unavailable Encounter Details Care Team Description Date Type Department 08/20/2019 Travel Social History Date Tobacco Use Types [...] Date Type Specialty Berta Harrison MD [address] [place] [address] Doroteo Enamorado MD [address] [place] [address] [phone] 10/02/2019 Hospital Radiology Encounter documented as of this encounter Goals Goal Patient Associated Recent Progress Patient-Stat Aut hor Goal Type Problems ed? Recover from illness [facility] Rajani Ac RN documented as of this encounter Visit Diagnoses Not on filedocumented in this encounter
--- OUTSIDE RECORDS SUMMARY | 2019-09-28 08:41 | XMS REPORT | Encounter Summary ---
Author Author [facility] Organization [facility] Address Unknown Phone Unavailable Care Team Providers Care Geological Science Teacher Name Role Phone Dania Barksdale MD PCP Jose Huff DO Unavailable Encounter Details Care Team Description Date Type Department 08/09/2019 Travel Social History Date Tobacco Use Types [...] Date Type Specialty Berta Harrison MD [address] [place] [address] Doroteo Enamorado MD [address] [place] [address] [phone] 10/02/2019 Hospital Radiology Encounter documented as of this encounter Goals Goal Patient Associated Recent Progress Patient-Stat Aut hor Goal Type Problems ed? Recover from illness [facility] Rajani Ac RN documented as of this encounter Visit Diagnoses Not on filedocumented in this encounter
--- OUTSIDE RECORDS SUMMARY | 2019-09-28 08:41 | XMS REPORT | Encounter Summary ---
Author Author [facility] Organization [facility] Address Unknown Phone Unavailable Care Team Providers Care Backend Python Developer Name Role Phone Dania Barksdale MD PCP Jose Huff DO Unavailable Encounter Details Care Team Description Date Type Department Brea Hernández 08/22/2019 Documentation The [address] [address] Social History Date Tobacco Use Types Packs/Day [...] encounter Progress Notes * Brea Hernández - 08/22/2019 1:49 PM CDT submitted [facility] varun for pt's BCBS supplement for months August 07-November 05t 2019. Pt's varun is "pending review". SW called [employer] [place] [phone] and spoke with arborist representative Rhonda who she s tates cannot send SW a document as proof his payments for the previous part of t he year (May - August 2019) however can mail that to pt. SW obtaining document in case [facility] needs additional proof of payment (bank statement showing withdrawal a lready submitted with [facility]ETER varun request). Brea Hernández LMSW Transplant Wool Scourer documented in this encounter Plan of Treatment Care Team Description Date Type Specialty Berta Harrisno MD [address] [place] [address] Doroteo Enamorado MD [address] [place] [address] 10/02/2019 Hospital Radiology Encounter documented as of this encounter Goals Goal Patient Associated Recent Progress Patient-Stat Aut hor Goal Type Problems ed? Recover from illness [facility] Rajani Ac, RN documented as of this encounter Visit Diagnoses Not on filedocumented in this encounter
--- OUTSIDE RECORDS SUMMARY | 2019-09-28 08:41 | XMS REPORT | Encounter Summary ---
Author Author [facility] Organization [facility] Address Unknown Phone Unavailable Care Team Providers Care Bond Writer Name Role Phone Dania Barksdale MD PCP Jose Huff DO Unavailable Reason for Visit * Reason Comments Financial/Insurance Questions Encounter Details Care Team Description Date Type Department Brea Hernández Financial/Insurance Questions 08/20/[address] [address] Social History Date Tobacco Use Types Packs/Day [...] * Telephone Encounter - Brea Hernández - 08/20/2019 12:51 PM CDT SW updated by team, pt has questions re: insurance. SW called pt to further disc us. Pt states he was receiving [facility] assistance prior to transplant and is inquiri ng his status for reimbursement. Pt has Medicare A, B with BCBS supplement ([facility] paying prior at $179/month) and [place] [employer] with no spenddown. SW explaine d she was not aware he was receiving [facility] assistance (dialis center or pt didn' t update the team after transplant). Pt states they paid his premiums for Jun, and August and are hoping [employer] will reimburse him. SW explained he will need to e-mail SW a copy of his bill to see if SW can open a new varun request for hi m. SW also explained will need to contact [facility] to see if they can transfer his ca re to . Pt explained they are driving home however will try to e-mail SW the b ill later today. SW also explained he might not need BCBS coverage if he has [employer] as secondary with no spenddown. Pt was encourage to speak to a financial counselor about this further. SW messaged [facility] on online portal verifying his transplant and asking if they can transfer his [facility] to [facility]. SW waiting for a reply. Brea Hernández LMSW Transplant Film Sound Coordinator documented in this encounter Plan of Treatment Care Team Description Date Type Specialty Berta Harrison MD [address] [place] [address] [phone] Doroteo Enamorado MD [address] [place] [address] [phone] 10/02/2019 Hospital Radiology Encounter documented as of this encounter Goals Goal Patient Associated Recent Progress Patient-Stat Aut hor Goal Type Problems ed? Recover from illness [facility] Rajani Ac RN documented as of this encounter Visit Diagnoses Not on filedocumented in this encounter
--- OUTSIDE RECORDS SUMMARY | 2019-09-28 08:41 | XMS REPORT | Encounter Summary ---
Author Author [facility] Organization [facility] Address Unknown Phone Unavailable Care Team Providers Care Sign Painter Name Role Phone Dania Barksdale MD PCP Jose Huff DO Unavailable Encounter Details Care Team Description Date Type Department Kandy Gill MA Kidney transplanted; Immunosuppression (HCC) 08/17/2019 Orders Only The [facility] [address] [address] Social History Date Tobacco Use [...] Date Type Specialty Berta Harrison MD [address] [place] [address] [phone] Doroteo Enamorado MD [address] [place] [address] [phone] 10/02/2019 Hospital Radiology Encounter documented as of this encounter Goals Goal Patient Associated Recent Progress Patient-Stat Aut hor Goal Type Problems ed? Recover from illness [facility] Rajani Ac RN documented as of this encounter Procedures Comments Procedure Name Priority Date/Time Associated Diag nosis URINALYSIS MICROSCOPIC Routine 08/16/2019 Kidney transplanted REFLEX TO CULTURE 9:30 AM CDT Immunosuppression ( HCC) URINALYSIS DIPSTICK Routine 08/16/2019 Kidney tra nsplanted REFLEX TO CULTURE 9:30 AM CDT Immunosuppression ( HCC) CBC AND DIFF Routine 08/16/2019 Kidney transpla nted 9:30 AM CDT Immunosuppression (HCC) URIC ACID Routine 08/16/2019 Kidney transpla nted 9:30 AM CDT Immunosuppression (HCC) PHOSPHORUS Routine 08/16/2019 Kidney transpla nted 9:30 AM CDT Immunosuppression (HCC) MAGNESIUM Routine 08/16/2019 Kidney transpla nted 9:30 AM CDT Immunosuppression (HCC) COMPREHENSIVE METABOLIC Routine 08/16/2019 Kidney transplanted PANEL 9:30 AM CDT Immunosuppression ( HCC) documented in this encounter Results * URINALYSIS MICROSCOPIC REFLEX TO CULTURE (08/16/2019 9:30 AM CDT) WBCs,UA Negative /HPF [facility] INTERFACE RBCs,UA Few (A) [facility] Bacteria,UA Negative [facility] Squamous 0-5 (A) [facility] Epithelial Cells Specimen Urine Narrative Performed At LAB[facility] INTERFACE Outside Lab Verified by Kandy crowe 08/17/2019. Performing Organization Address City/State/Zipcode Ph one Number LABDE INTERFACE * URINALYSIS DIPSTICK REFLEX TO CULTURE (08/16/2019 9:30 AM CDT) Color,UA Yellow Yellow [facility] Turbidity,UA Clear [facility] Glucose,UA Negative Negative [facility] Bilirubin,UA Negative Negative [facility] Ketones,UA Negative Negative [facility] Specific 1.020 1.000 - 1,030 LAB[facility] INTERFACE [place]-Urine Blood,UA 2+ (A) Negative [facility] INTERFACE pH,UA 5.5 [facility] Protein,UA 1+ (A) Negative [facility] INTERFACE Urobilinogen,UA 0.2 (A) [facility] INTER[facility] Nitrite,UA Negative [facility] INTERFACE Leukocytes,UA Negative Negative [facility] Specimen Urine Narrative Performed At [facility] INTERFACE Outside Lab Verified by Kandy crowe 08/17/2019. Performing Organization Address [facility] Ph one Number LABDE INTERFACE * URIC ACID (08/16/2019 9:30 AM CDT) Uric Acid 5.4 2.6 - 7.2 mg/dL LABDE INTERFAC E Specimen Blood Narrative Performed At LAB[facility] INTERFACE Outside Lab Verified by Kandy crowe 08/17/2019. Performing Organization Address [facility] Ph one Number LABDE INTERFACE * PHOSPHORUS (08/16/2019 9:30 AM CDT) Phosphorus 3.3 mg/dL [facility] INTERFACE Specimen Blood Narrative Performed At [facility] INTERFACE Outside Lab Verified by Kandy crowe 08/17/2019. Performing Organization Address [facility] Ph one Number LABDE INTERFACE * MAGNESIUM (08/16/2019 9:30 AM CDT) Magnesium 1.8 1.6 - 2.6 mg/dL LABDE INTERFAC E Specimen Blood Narrative Performed At LAB[facility] INTERFACE Outside Lab Verified by Kandy crowe 08/17/2019. Performing Organization Address [facility] Ph one Number LABDE INTERFACE * COMPREHENSIVE METABOLIC PANEL (08/16/2019 9:30 AM CDT) Sodium 141 134 - 148 mmol/L LABDE INTERFA CE Potassium 5.5 (H) 3.5 - 5.3 mmol/L [facility] INTERFA CE Chloride 118 (H) 95 - 114 [facility] INTERFACE CO2 17 (L) 22 - 33 mEq/L [facility] INTER[facility] Anion Gap 12 [facility] INTER[facility] Glucose 65 (L) 70 - 110 [facility] INTER[facility] Blood Urea 35 (H) 5 - 25 [facility] INTER[facility] Nitrogen Creatinine 2.39 (H) 0.50 - 1.50 mg/dL LABDE INTERF RAMON (calc) Calcium 8.6 [facility] INTERFACE Alk Phosphatase 100 [facility] INTER[facility] AST (SGOT) 23 [facility] INTERFACE ALT (SGPT) 19 [facility] INTERFACE Total Bilirubin 0.3 mg/dL (calc) LABDE INTERFAC E Total Protein 6.3 [facility] INTERFACE Albumin 4.2 [facility] INTERFACE Specimen Blood Narrative Performed At LAB[facility] INTERFACE Outside Lab Verified by Kandy crowe 08/17/2019. Performing Organization Address City/State/Zipcode Ph one Number LABDE INTERFACE * CBC AND DIFF (08/16/2019 9:30 AM CDT) White Blood 5.22 5.00 - 10.00 K/uL [facility] INTERF RAM[place] Cells RBC 3.24 (L) 4.20 - 5.40 [facility] INTERFACE Hemoglobin 10.3 (L) 14.0 - 17.0 LAB[facility] INTERFACE Hematocrit 32.6 (L) 42.0 - 52.0 [facility] INTERFACE MCV 100.6 (H) 80.0 - 97.0 [facility] INTERFACE MCH 31.8 (H) 27.0 - 31.2 pg [facility] INTERFACE MCHC 31.6 (L) 32.0 - 36.0 g/dL LABDE INTERFA CE Platelet Count 161 K/uL [facility] INTERFACE RDW 15.4 (H) 11.6 - 14.8 % LAB[facility] INTERFACE Absolute 4.33 2.00 - 6.90 K/uL LABDE INTERFA CE Neutrophil Count Neutrophils 82.9 (H) 37.0 - 80.0 % LAB[facility] INTERFACE Absolute Lymph 0.26 (L) 0.60 - 3.40 [facility] INTERFACE Count Lymphocytes 5.0 (L) 10.0 - 50.0 % [facility] INTERFACE Absolute 0.5 0.0 - 0.9 K/uL [facility] INTERFACE Monocyte Count Monocytes 10.0 0.0 - 12.0 % [facility] INTERFACE Absolute 0.1 0.0 - 0.7 K/uL [facility] INTERFACE Eosinophil Count Eosinophil 1.7 0.0 - 7.0 % LAB[facility] INTERFACE Absolute 0.0 0.0 - 0.2 K/uL [facility] INTERFACE Basophil Count Basophil 0.40 0.00 - 2.50 % [facility] INTERFACE MPV 11.2 (H) 7.4 - 10.0 LAB[facility] INTERFACE Specimen Blood Narrative Performed At LABDE INTERFACE Outside Lab Verified by Kandy crowe 08/17/2019. 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
--- OUTSIDE RECORDS SUMMARY | 2019-09-28 08:41 | XMS REPORT | Encounter Summary ---
Author Author [facility] Organization [facility] Address Unknown Phone Unavailable Care Team Providers Care Drop Forge Operator Name Role Phone Dania Barksdale MD PCP Jose Huff DO Unavailable Encounter Details Care Team Description Date Type Department Federico Phillips Kidney transplanted; Immunosuppression (HCC) 08/20/2019 Orders Only The [facility] [address] [address] Social History Date Tobacco Use [...] Date Type Specialty Berta Harrison MD [address] [place] [address] [phone] Doroteo Enamorado MD [address] [place], [place] [id number] 10/02/2019 Hospital Radiology Encounter documented as of this encounter Goals Goal Patient Associated Recent Progress Patient-Stat Aut hor Goal Type Problems ed? Recover from illness [facility] Rajani Ac RN documented as of this encounter Procedures Comments Procedure Name Priority Date/Time Associated Diag nosis TACROLIMUS LEVEL(FK506) Routine 08/16/2019 Kidney transplanted 9:30 AM CDT Immunosuppression (HCC) documented in this encounter Results * TACROLIMUS LEVEL(FK506) (08/16/2019 9:30 AM CDT) Tacrolimus 14.0 LAB[facility] INTERFACE Specimen Blood Narrative Performed At LABDE INTERFACE Outside Lab Verified by Federico Phillips on 08/20/2019. 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
--- OUTSIDE RECORDS SUMMARY | 2019-09-28 08:41 | XMS REPORT | Encounter Summary ---
Author Author [facility] Organization [facility] Address Unknown Phone Unavailable Care Team Providers Care Merchandising Intern Name Role Phone Dania Barksdale MD PCP Jose Huff DO Unavailable Encounter Details Care Team Description Date Type Department Federico Phillips Kidney transplanted; Immunosuppression (HCC) 08/09/2019 Orders Only The [facility] [address] [address] Social History Date Tobacco Use [...] Date Type Specialty Berta Harrison MD [address] [place] [address] [phone] Doroteo Enamorado MD [address] [place] [address] [phone] 10/02/2019 Hospital Radiology Encounter documented as of this encounter Goals Goal Patient Associated Recent Progress Patient-Stat Aut hor Goal Type Problems ed? Recover from illness [facility] Rajani Ac RN documented as of this encounter Procedures Comments Procedure Name Priority Date/Time Associated Diag nosis URINALYSIS MICROSCOPIC Routine 08/09/2019 Kidney transplanted REFLEX TO CULTURE 9:38 AM CDT Immunosuppression ( HCC) URINALYSIS DIPSTICK Routine 08/09/2019 Kidney tra nsplanted REFLEX TO CULTURE 9:38 AM CDT Immunosuppression ( HCC) PROTEIN/CR RATIO,UR RAN Routine 08/09/2019 Kidney transplanted 9:38 AM CDT Immunosuppression (HCC) CBC AND DIFF Routine 08/09/2019 Kidney transpla nted 9:38 AM CDT Immunosuppression (HCC) URIC ACID Routine 08/09/2019 Kidney transpla nted 9:38 AM CDT Immunosuppression (HCC) PHOSPHORUS Routine 08/09/2019 Kidney transpla nted 9:38 AM CDT Immunosuppression (HCC) MAGNESIUM Routine 08/09/2019 Kidney transpla nted 9:38 AM CDT Immunosuppression (HCC) COMPREHENSIVE METABOLIC Routine 08/09/2019 Kidney transplanted PANEL 9:38 AM CDT Immunosuppression ( HCC) documented in this encounter Results * URINALYSIS MICROSCOPIC REFLEX TO CULTURE (08/09/2019 9:38 AM CDT) WBCs,UA Rare (A) [facility] INTERFACE RBCs,UA 2-5 (A) [facility] INTERFACE Bacteria,UA Negative [facility] INTERFACE Specimen Urine Narrative Performed At LABDE INTERFACE Outside Lab Verified by Federico Phillips on 08/09/2019. Performing Organization Address City/State/Zipcode Ph one Number LABDE INTERFACE * URINALYSIS DIPSTICK REFLEX TO CULTURE (08/09/2019 9:38 AM CDT) Color,UA Yellow [facility] INTERFACE Turbidity,UA Clear [facility] INTERFACE Glucose,UA Trace (A) Negative [facility] INTERFACE Bilirubin,UA Negative [facility] INTERFACE Ketones,UA Negative [facility] INTERFACE Specific 1.025 LABDE INTERFACE [place]-Urine Blood,UA 1+ (A) Negative [facility] INTERFACE pH,UA 6.0 [facility] INTERFACE Protein,UA 1+ (A) Negative [facility] INTERFACE Urobilinogen,UA 0.2 (A) 0.2 - 1.0 LABDE INTERFAC E Nitrite,UA Negative [facility] INTERFACE Leukocytes,UA Negative [facility] INTERFACE Specimen Urine Narrative Performed At LABDE INTERFACE Outside Lab Verified by Federico Jacqueline on 08/09/2019. Performing Organization Address [facility] Ph one Number LABDE INTERFACE * URIC ACID (08/09/2019 9:38 AM CDT) Uric Acid 5.4 LAB[facility] INTERFACE Specimen Blood Narrative Performed At LABDE INTERFACE Outside Lab Verified by Federico Jacqueline on 08/09/2019. Performing Organization Address [facility] Ph one Number LABDE INTERFACE * PHOSPHORUS (08/09/2019 9:38 AM CDT) Phosphorus 2.9 LAB[facility] INTERFACE Specimen Blood Narrative Performed At LABDE INTERFACE Outside Lab Verified by Federico [place] on 08/09/2019. Performing Organization Address [facility] Ph one Number LABDE INTERFACE * MAGNESIUM (08/09/2019 9:38 AM CDT) Magnesium 1.7 LAB[facility] INTERFACE Specimen Blood Narrative Performed At LABDE INTERFACE Outside Lab Verified by Federico Jacqueline on 08/09/2019. Performing Organization Address [facility] Ph one Number LABDE INTERFACE * COMPREHENSIVE METABOLIC PANEL (08/09/2019 9:38 AM CDT) Sodium 137 mmol/L [facility] INTERFACE Potassium 4.7 mmol/L [facility] Chloride 115 (H) 95 - 114 [facility] CO2 16 (L) 22 - 33 [facility] INTERFACE Anion Gap 11 [facility] INTERFACE Glucose 125 (H) 70 - 110 [facility] INTERFACE Blood Urea 33 (H) 5 - 25 mg/dL [facility] INTERFACE Nitrogen Creatinine 2.43 (H) 0.50 - 1.50 mg/dl LABDE INTERF RAM[place] Calcium 8.6 mg/dL LAB[facility] INTERFACE Alk Phosphatase 93 U/L LABDE INTERFAC E AST (SGOT) 23 U/L [facility] INTERFACE ALT (SGPT) 15 U/L [facility] INTERFACE Total Bilirubin 0.3 mg/dL LABDE INTERFAC E Total Protein 6.0 g/dL [facility] INTERFACE Albumin 4.1 LABDE INTERFACE eGFR Non 29 (L) >59 [facility] INTERFACE Specimen Blood Narrative Performed At LABDE INTERFACE Outside Lab Verified by Federico Phillips on 08/09/2019. Performing Organization Address City/State/Zipcode Ph one Number LABDE INTERFACE * CBC AND DIFF (08/09/2019 9:38 AM CDT) White Blood 4.62 (L) 5.00 - 10.00 LABDE INTERFACE Cells RBC 2.92 (L) 4.20 - 5.40 LABDE INTERFACE Hemoglobin 9.5 (L) 14.0 - 17.0 LABDE INTERFACE Hematocrit 29.1 (L) 42.0 - 52.0 LABDE INTERFACE MCV 99.7 (H) 80.0 - 97.0 LABDE INTERFACE MCH 32.5 (H) 27.0 - 31.2 LABDE INTERFACE MCHC 32.6 LABDE INTERFACE Platelet Count 88 (L) 150 - 400 LAB[facility] INTERFACE RDW 15.2 (H) 11.6 - 14.8 LABDE INTERFACE Absolute 3.73 LABDE INTERFACE Neutrophil Count Neutrophils 80.8 (H) 37.0 - 80.0 LABDE INTERFACE Absolute Lymph 0.27 (L) 0.60 - 3.40 LABDE INTERFACE Count Lymphocytes 5.8 (L) 10.0 - 50.0 LABDE INTERFACE Absolute 0.5 LABDE INTERFACE Monocyte Count Monocytes 10.2 LABDE INTERFACE Absolute 0.1 LABDE INTERFACE Eosinophil Count Eosinophil 2.6 LABDE INTERFACE Absolute 0.0 LABDE INTERFACE Basophil Count Basophil 0.60 LABDE INTERFACE MPV 12.1 (H) 7.4 - 10.0 LABDE INTERFACE Specimen Blood Narrative Performed At LABDE INTERFACE Outside Lab Verified by Federico Phillips on 08/09/2019. Performing Organization Address City/State/Zipcode Ph one Number LABDE INTERFACE * PROTEIN/CR RATIO,UR RAN (08/09/2019 9:38 AM CDT) Protein, Random 37 (H) 0 - 20 LABDE INTERFAC E Creatinine, 96.5 (H) 0.0 - 50.0 LABDE INTERFACE Random Protein/CR 0.39 LABDE INTERFACE ratio Specimen Urine - Urine Narrative Performed At LABDE INTERFACE Outside Lab Verified by Federico Phillips on 08/09/2019. 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
--- OUTSIDE RECORDS SUMMARY | 2019-09-28 08:41 | XMS REPORT | Encounter Summary ---
Author Author [facility] Organization [facility] Address Unknown Phone Unavailable Care Team Providers Care Ship Painter Helper Name Role Phone Dania Barksdale MD PCP Jose Huff DO Unavailable Encounter Details Care Team Description Date Type Department Self, Marilyn Kidney transplanted; Immunosuppression (HCC) 08/16/2019 Orders Only The [facility] [address] [address] Social History Date Tobacco Use [...] Date Type Specialty Berta Harrison MD [address] [place] [address] [phone] Doroteo Enamorado MD [address] [place] [address] [phone] 10/02/2019 Hospital Radiology Encounter documented as of this encounter Goals Goal Patient Associated Recent Progress Patient-Stat Aut hor Goal Type Problems ed? Recover from illness Hospital Rajani Ac RN documented as of this encounter Procedures Comments Procedure Name Priority Date/Time Associated Diag nosis CMV QUANT PCR-BLOOD Routine 08/15/2019 Kidney tra nsplanted 11:06 PM CDT Immunosuppression (HCC) BK VIRUS DNA, QUANT Routine 08/15/2019 Kidney tra nsplanted PLASMA 11:06 PM CDT Immunosuppression ( HCC) documented in this encounter Results * CMV QUANT PCR-BLOOD (08/15/2019 11:06 PM CDT) CMV DNA Quant NEGATIVE LAB[facility] INTERFACE PCR Specimen Blood Narrative Performed At LABDE INTERFACE Outside Lab Verified by Marilyn Woods on 08/16/2019. Performing Organization Address City/State/[facility] Number [facility] * BK VIRUS DNA, QUANT PLASMA (08/15/2019 11:06 PM CDT) BK Virus Plasma NEGATIVE LABDE INTERFACE Quant Specimen Blood Narrative Performed At LABDE INTERFACE Outside Lab Verified by Marilyn Self on 08/16/2019. 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
--- OUTSIDE RECORDS SUMMARY | 2019-09-28 08:41 | XMS REPORT | Encounter Summary ---
Author Author [facility] Organization [facility] Address Unknown Phone Unavailable Care Team Providers Care Supervisor Cured Meats Name Role Phone Dania Barksdale MD PCP Jose Huff DO Unavailable Encounter Details Care Team Description Date Type Department Kandy Gill MA Kidney transplanted; Immunosuppression (HCC) 08/13/2019 Orders Only The [facility] [address] [address] Social History Date Tobacco Use [...] Date Type Specialty Berta Harrison MD [address] [place] [address] [phone] Doroteo Enamorado MD [address] [place] [address] [phone] 10/02/2019 Hospital Radiology Encounter documented as of this encounter Goals Goal Patient Associated Recent Progress Patient-Stat Aut hor Goal Type Problems ed? Recover from illness [facility] Rajani Ac RN documented as of this encounter Procedures Comments Procedure Name Priority Date/Time Associated Diag nosis URINALYSIS MICROSCOPIC Routine 08/13/2019 Kidney transplanted REFLEX TO CULTURE 7:45 AM CDT Immunosuppression ( HCC) URINALYSIS DIPSTICK Routine 08/13/2019 Kidney tra nsplanted REFLEX TO CULTURE 7:45 AM CDT Immunosuppression ( HCC) CBC AND DIFF Routine 08/13/2019 Kidney transpla nted 7:45 AM CDT Immunosuppression ([facility]) URIC ACID Routine 08/13/2019 Kidney transpla nted 7:45 AM CDT Immunosuppression ([facility]) PHOSPHORUS Routine 08/13/2019 Kidney transpla nted 7:45 AM CDT Immunosuppression (HCC) MAGNESIUM Routine 08/13/2019 Kidney transpla nted 7:45 AM CDT Immunosuppression (HCC) COMPREHENSIVE METABOLIC Routine 08/13/2019 Kidney transplanted PANEL 7:45 AM CDT Immunosuppression ( HCC) TACROLIMUS LEVEL([id number]) Routine 08/09/2019 Kidney transplanted 9:38 AM CDT Immunosuppression (HCC) documented in this encounter Results * PHOSPHORUS (08/13/2019 7:45 AM CDT) Phosphorus 3.0 mg/dL [facility] INTERFACE Specimen Blood Narrative Performed At [facility] INTERFACE Outside Lab Verified by Kandy crowe 08/13/2019. Performing Organization Address City/State/Zipcode Ph one Number [facility] INTERFACE * URINALYSIS MICROSCOPIC REFLEX TO CULTURE (08/13/2019 7:45 AM CDT) WBCs,UA Negative /HPF [facility] INTERFACE RBCs,UA 2-5 (A) [facility] INTER[facility] Bacteria,UA Negative [facility]FACE Squamous 0-5 (A) [facility] Epithelial Cells Specimen Urine Narrative Performed At [facility] INTERFACE Outside Lab Verified by Kandy crowe 08/13/2019. Performing Organization Address [facility] [place] Ph one Number [facility] INTERFACE * URINALYSIS DIPSTICK REFLEX TO CULTURE (08/13/2019 7:45 AM CDT) Color,UA Yellow Yellow [facility] INTERFACE Turbidity,UA Clear [facility] INTERFACE Glucose,UA 2+ (A) Negative [facility] INTERFACE Bilirubin,UA Negative Negative [facility] INTERFACE Ketones,UA Negative Negative [facility] INTERFACE Specific 1.025 1.000 - 1,030 LAB[facility] INTERFACE [place]-Urine Blood,UA 1+ (A) Negative [facility] INTERFACE pH,UA 5.5 [facility] INTERFACE Protein,UA 1+ (A) Negative [facility] INTERFACE Urobilinogen,UA 0.2 [facility] INTERFACE Nitrite,UA Negative [facility] INTERFACE Leukocytes,UA Negative Negative [facility] INTERFACE Specimen Urine Narrative Performed At [facility] INTERFACE Outside Lab Verified by Kandy crowe 08/13/2019. Performing Organization Address [facility] [place] Ph one Number [facility] INTERFACE * URIC ACID (08/13/2019 7:45 AM CDT) Uric Acid 5.7 2.6 - 7.2 mg/dL [facility] INTERFAC E Specimen Blood Narrative Performed At [facility] INTERFACE Outside Lab Verified by Kandy crowe 08/13/2019. Performing Organization Address [facility] [place] Ph one Number [facility] INTERFACE * MAGNESIUM (08/13/2019 7:45 AM CDT) Magnesium 1.9 1.6 - 2.6 mg/dL [facility] INTERFAC E Specimen Blood Narrative Performed At [facility] INTERFACE Outside Lab Verified by Kandy crowe 08/13/2019. Performing Organization Address [facility] [place] Ph one Number [facility] INTERFACE * COMPREHENSIVE METABOLIC PANEL (08/13/2019 7:45 AM CDT) Sodium 139 134 - 148 mmol/L [facility] INTERFA CE Potassium 4.7 [facility] INTERFACE Chloride 115 (H) 95 - 114 [facility] INTERFACE CO2 20 (L) 22 - 33 [facility] INTERFACE Anion Gap 9 [facility] INTERFACE Glucose 147 (H) 70 - 110 [facility] INTERFACE Blood Urea 27 (H) 5 - 25 [facility] INTERFACE Nitrogen Creatinine 2.62 (H) 0.50 - 1.50 mg/dL [facility] INTERF RAMON (calc) Calcium 8.9 [facility] INTERFACE Alk Phosphatase 108 [facility] INTERFACE AST (SGOT) 17 [facility] INTERFACE ALT (SGPT) 17 [facility] INTERFACE Total Bilirubin 0.3 mg/dL (calc) [facility] INTERFAC E Total Protein 6.2 [facility] INTERFACE Albumin 4.3 [facility] INTERFACE Specimen Blood Narrative Performed At [facility] INTERFACE Outside Lab Verified by Kandy crowe 08/13/2019. Performing Organization Address City/State/Zipcode Ph one Number [facility] INTERFACE * CBC AND DIFF (08/13/2019 7:45 AM CDT) Pathologist [facility] White Blood 3.99 (L) 5.00 - 10.00 K/uL [facility] INTERF RAM[place] Cells RBC 3.38 (L) 4.20 - 5.40 [facility] INTERFACE Hemoglobin 10.8 (L) 14.0 - 17.0 [facility] INTERFACE Hematocrit 33.6 (L) 42.0 - 52.0 [facility] INTERFACE MCV 99.4 (H) 80.0 - 97.0 [facility] INTERFACE MCH 32.0 (H) 27.0 - 31.2 pg [facility] INTERFACE MCHC 32.1 g/dL [facility] INTERFACE Platelet Count 183 K/uL [facility] INTERFACE RDW 15.4 (H) 11.6 - 14.8 % [facility] INTERFACE Absolute 3.15 K/uL [facility] INTERFACE Neutrophil Count Neutrophils 78.9 % [facility] INTERFACE Absolute Lymph 0.29 (L) 0.60 - 3.40 [facility] INTERFACE Count Lymphocytes 7.3 (L) 10.0 - 50.0 % [facility] INTERFACE Absolute 0.4 0.0 - 0.9 K/uL [facility] INTERFACE Monocyte Count Monocytes 11.0 0.0 - 12.0 % [facility] INTERFACE Absolute 0.1 0.0 - 0.7 K/uL [facility] INTERFACE Eosinophil Count Eosinophil 2.3 0.0 - 7.0 % [facility] INTERFACE Absolute 0.0 [facility] INTERFACE Basophil Count Basophil 0.50 [facility] INTERFACE MPV 11.4 (H) 7.4 - 10.0 [facility] INTERFACE Specimen Blood Narrative Performed At LAB[facility] INTERFACE Outside Lab Verified by Kandy crowe 08/13/2019. Performing Organization Address City/[facility] [place] Ph one Number [facility] INTERFACE * TACROLIMUS LEVEL([id number]) (08/09/2019 9:38 AM CDT) Tacrolimus 10.0 [facility] INTERFACE Specimen Blood Narrative Performed At [facility] INTERFACE Outside Lab Verified by Kandy crowe 08/13/2019. 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
--- NOTE | 2019-09-28 08:42 | Ophthalmology Operative Report ---
Cataract removal/placement IOL PREOPERATIVE DIAGNOSIS: Cataract Right Eye POSTOPERATIVE DIAGNOSIS: Cataract Right Eye PROCEDURE: Cataract removal and placement of posterior chamber implant, right eye SURGEON: Holland Her ANESTHESIA: Topical with sedation COMPLICATIONS: None ESTIMATED BLOOD LOSS: Minimal DESCRIPTION OF PROCEDURE: After proper informed consent was obtained, the patient, a 49 male, was taken to the Operating Room and the right eye was anesthetized with tetracaine. The right eye was then prepped and draped in the usual manner. A wire lid speculum was placed. A paracentesis was made at the left hand position. Preservative free lidocaine was injected into the anterior chamber followed by viscoelastic. A clear corneal incision was made in the temporal position. A capsulorrhexis was preformed and the central nuclear and cortical material were removed. The posterior capsule was polished and Aditya 20.0 AU00T0 IOL was placed into the capsular bag. The residual viscoelastic was aspirated and balanced saline solution was injected into the anterior chamber. Moxifloxacin was injected into the anterior chamber. The wound was checked and found to be water tight. The patient tolerated the procedure well without complications. HOLLAND HER MD September 28, 2019 08:42
--- OUTSIDE RECORDS SUMMARY | 2019-09-28 08:42 | XMS REPORT | Encounter Summary ---
Author Author [facility] Organization [facility] Address Unknown Phone Unavailable Care Team Providers Care Meat Apprentice Name Role Phone Dania Barksdale MD PCP Jose Huff DO Unavailable Reason for Visit * Reason Comments Results Encounter Details Care Team Description Date Type Department Lucia Trinidad RN Results 07/27/2019 Telephone The [facility] [address] [address] Social History Date Tobacco Use Types Packs/Day Years Used Quit: 12/17/2001 Former Smoker 2 30 Smokeless Tobacco: Never Used Drinks/Week oz/Week Comments Alcohol Use quit 15 years ago Yes Sex Assigned at Date Recorded Male Industry Job Start Date Occupation Not on file Not on file Not on file Travel End Travel History Travel Start No recent travel history available. documented as of this encounter Functional Status [...] Telephone Encounter - Lucia Trinidad RN - 07/27/2019 11:16 AM CDT Reviewed pt's labs from 07/25 via [facility]. Hgb 8.8, WBC 1.76, Creat 3.28. Called to discuss with pt. Pt's stated he has increase in fatigue. Pt has H1N1, like ly contributing. Advised pt to stay well hydrated. Pt received 1st Epo injection on , 07/25. Will receive future injections on . Advised pt to call with any other concerns. documented in this encounter Plan of Treatment Care Team Description Date Type Specialty Berta Harrison MD [address] [place] [address] Doroteo Enamorado MD [address] [place] [address] 10/02/2019 Hospital Radiology Encounter documented as of this encounter Goals Goal Patient Associated Recent Progress Patient-Stat Aut hor Goal Type Problems ed? Recover from illness [facility] Rajani Ac, RN documented as of this encounter Visit Diagnoses Not on filedocumented in this encounter
--- OUTSIDE RECORDS SUMMARY | 2019-09-28 08:42 | XMS REPORT | Encounter Summary ---
Author Author [facility] Organization [facility] Address Unknown Phone Unavailable Care Team Providers Care Section Crews Activities Clerk Name Role Phone Dania Barksdale MD PCP Jose Huff DO Unavailable Encounter Details Care Team Description Date Type Department Federico Phillips Kidney transplanted; Immunosuppression (HCC) 08/06/2019 Orders Only The [facility] [address] [address] Social History Date Tobacco Use [...] Type Specialty Berta Harrison MD [address] [place] [address] Doroteo Enamorado MD [address] [place] [address] 10/02/2019 Hospital Radiology Encounter documented as of this encounter Goals Goal Patient Associated Recent Progress Patient-Stat Aut hor Goal Type Problems ed? Recover from illness [facility] Rajani Ac RN documented as of this encounter Procedures Comments Procedure Name Priority Date/Time Associated Diag nosis URINALYSIS MICROSCOPIC Routine 08/02/2019 Kidney transplanted REFLEX TO CULTURE 11:11 AM CDT Immunosuppression ( HCC) URINALYSIS DIPSTICK Routine 08/02/2019 Kidney tra nsplanted REFLEX TO CULTURE 11:11 AM CDT Immunosuppression ( HCC) PROTEIN/CR RATIO,UR RAN Routine 08/02/2019 Kidney transplanted 11:11 AM CDT Immunosuppression (HCC) TACROLIMUS LEVEL(FK506) Routine 08/02/2019 Kidney transplanted 11:11 AM CDT Immunosuppression (HCC) CBC AND DIFF Routine 08/02/2019 Kidney transpla nted 11:11 AM CDT Immunosuppression (HCC) URIC ACID Routine 08/02/2019 Kidney transpla nted 11:11 AM CDT Immunosuppression (HCC) PHOSPHORUS Routine 08/02/2019 Kidney transpla nted 11:11 AM CDT Immunosuppression (HCC) MAGNESIUM Routine 08/02/2019 Kidney transpla nted 11:11 AM CDT Immunosuppression (HCC) COMPREHENSIVE METABOLIC Routine 08/02/2019 Kidney transplanted PANEL 11:11 AM CDT Immunosuppression ( HCC) documented in this encounter Results * TACROLIMUS LEVEL([id number]) (08/02/2019 11:11 AM CDT) Tacrolimus 19.7 [facility] INTERFACE Specimen Blood Narrative Performed At [facility] INTERFACE Outside Lab Verified by Federico Phillips on 08/06/2019. Performing Organization Address City/State/Zipcode Ph one Number LABDE INTERFACE * PROTEIN/CR RATIO,UR RAN (08/02/2019 11:11 AM CDT) Protein, Random 46 (H) 0 - 20 [facility] INTERFAC E Creatinine, 143.0 (H) 0.0 - 50.0 [facility] INTERFACE Random Protein/CR 0.32 [facility] INTERFACE ratio Specimen Urine - Urine Narrative Performed At [facility] INTERFACE Outside Lab Verified by Federico Phillips on 08/06/2019. Performing Organization Address [facility] Ph one Number [facility] INTERFACE * URINALYSIS MICROSCOPIC REFLEX TO CULTURE (08/02/2019 11:11 AM CDT) WBCs,UA Negative [facility] INTERFACE RBCs,UA Rare (A) [facility] INTERFACE Bacteria,UA Trace (A) [facility] INTERFACE Squamous 0-5 (A) [facility] INTERFACE Epithelial Cells Specimen Urine Narrative Performed At [facility] INTERFACE Outside Lab Verified by Federico Phillips on 08/06/2019. Performing Organization Address [facility] Ph one Number [facility] INTERFACE * URINALYSIS DIPSTICK REFLEX TO CULTURE (08/02/2019 11:11 AM CDT) Color,UA Yellow [facility] INTERFACE Turbidity,UA Clear [facility] INTERFACE Glucose,UA Trace (A) Negative [facility] INTERFACE Bilirubin,UA Negative [facility] INTERFACE Ketones,UA Negative [facility] INTERFACE Specific 1.025 LABDE INTERFACE [place]-Urine Blood,UA 1+ (A) Negative [facility] INTERFACE pH,UA 5.5 [facility] INTERFACE Protein,UA 1+ (A) Negative [facility] INTERFACE Urobilinogen,UA 0.2 (A) 0.2 - 1.0 LAB[facility] INTERFAC E Nitrite,UA Negative [facility] INTERFACE Leukocytes,UA Negative [facility] INTERFACE Specimen Urine Narrative Performed At [facility] INTERFACE Outside Lab Verified by Federico Phillips on 08/06/2019. Performing Organization Address City/[facility] Ph one Number [facility] INTERFACE * URIC ACID (08/02/2019 11:11 AM CDT) Uric Acid 6.4 [facility] INTERFACE Specimen Blood Narrative Performed At [facility] INTERFACE Outside Lab Verified by Federicomarta Phillips on 08/06/2019. Performing Organization Address City/[facility] Ph one Number [facility] INTERFACE * PHOSPHORUS (08/02/2019 11:11 AM CDT) Phosphorus 2.4 (L) 2.5 - 4.8 [facility] INTERFACE Specimen Blood Narrative Performed At [facility] INTERFACE Outside Lab Verified by Federico Phillips on 08/06/2019. Performing Organization Address [facility] Ph one Number [facility] INTERFACE * MAGNESIUM (08/02/2019 11:11 AM CDT) Magnesium 1.9 LAB[facility] INTERFACE Specimen Blood Narrative Performed At LAB[facility] INTERFACE Outside Lab Verified by Federico Phillips on 08/06/2019. Performing Organization Address [facility] Ph one Number [facility]DE INTERFACE * COMPREHENSIVE METABOLIC PANEL (08/02/2019 11:11 AM CDT) Sodium 139 mmol/l [facility] INTERFACE Potassium 4.6 [facility] INTERFACE Chloride 117 (H) 95 - 114 [facility] INTERFACE CO2 16 (L) 22 - 33 [facility] INTERFACE Anion Gap 11 [facility] INTERFACE Glucose 51 (L) 70 - 110 [facility] INTERFACE Blood Urea 35 (H) 5 - 25 [facility] INTERFACE Nitrogen Creatinine 3.06 (H) 0.50 - 1.50 mg/dl LAB[facility] INTERF RAMON Calcium 8.9 [facility] INTERFACE Alk Phosphatase 97 [facility] INTERFACE AST (SGOT) 18 [facility] INTERFACE ALT (SGPT) 14 [facility] INTERFACE Total Bilirubin 0.2 mg/dl LAB[facility] INTERFAC E Total Protein 6.1 [facility] INTERFACE Albumin 4.1 [facility] INTERFACE eGFR Non 22 (L) >59 [facility] INTERFACE Specimen Blood Narrative Performed At [facility] INTERFACE Outside Lab Verified by Federico Phillips on 08/06/2019. Performing Organization Address [facility] one Number LABDE INTERFACE * CBC AND DIFF (08/02/2019 11:11 AM CDT) White Blood 3.74 (L) 5.00 - 10.00 [facility] INTERFACE Cells RBC 3.02 (L) 4.20 - 5.40 [facility] INTERFACE Hemoglobin 9.6 (L) 14.0 - 17.0 LAB[facility] INTERFACE Hematocrit 29.0 (L) 42.0 - 52.0 LABDE INTERFACE MCV 96.0 LABDE INTERFACE MCH 31.8 (H) 27.0 - 31.2 LAB[facility] INTERFACE MCHC 33.1 LAB[facility] INTERFACE Platelet Count 181 [facility] INTERFACE RDW 14.8 LABDE INTERFACE Absolute 3.00 [facility] INTERFACE Neutrophil Count Neutrophils 80.1 (H) 37.0 - 80.0 LAB[facility] INTERFACE Absolute Lymph 0.31 (L) 0.60 - 3.40 LAB[facility] INTERFACE Count Lymphocytes 8.3 (L) 10.0 - 50.0 LABDE INTERFACE Absolute 0.4 [facility] INTERFACE Monocyte Count Monocytes 9.4 [facility] INTERFACE Absolute 0.1 [facility] INTERFACE Eosinophil Count Eosinophil 1.9 LAB[facility] INTERFACE Absolute 0.0 [facility] INTERFACE Basophil Count Basophil 0.30 [facility] INTERFACE MPV 11.1 (H) 7.4 - 10.0 LAB[facility] INTERFACE Specimen Blood Narrative Performed At [facility] INTERFACE Outside Lab Verified by Federico Phillips on 08/06/2019. 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
--- OUTSIDE RECORDS SUMMARY | 2019-09-28 08:42 | XMS REPORT | Encounter Summary ---
Author Author [facility] Organization [facility] Address Unknown Phone Unavailable Care Team Providers Care Front Maker Lockstitch Name Role Phone Dania Barksdale MD PCP Jose Huff DO Unavailable Encounter Details Care Team Description Date Type Department Self, Marilyn Kidney transplanted; Immunosuppression (HCC) 07/30/[address] [facility] [address] [address] Social History Date Tobacco Use [...] Date Type Specialty Berta Harrison MD [address] [place] [address] Doroteo Enamorado MD [address] [place] [address] 10/02/2019 Hospital Radiology Encounter documented as of this encounter Goals Goal Patient Associated Recent Progress Patient-Stat Aut hor Goal Type Problems ed? Recover from illness Hospital Rajani Ac RN documented as of this encounter Procedures Comments Procedure Name Priority Date/Time Associated Diag nosis URINALYSIS MICROSCOPIC Routine 07/30/2019 Kidney transplanted REFLEX TO CULTURE 7:51 AM CDT Immunosuppression ( HCC) URINALYSIS DIPSTICK Routine 07/30/2019 Kidney tra nsplanted REFLEX TO CULTURE 7:51 AM CDT Immunosuppression ( HCC) PROTEIN/CR RATIO,UR RAN Routine 07/30/2019 Kidney transplanted 7:51 AM CDT Immunosuppression (HCC) CBC AND DIFF Routine 07/30/2019 Kidney transpla nted 7:51 AM CDT Immunosuppression (HCC) URIC ACID Routine 07/30/2019 Kidney transpla nted 7:51 AM CDT Immunosuppression (HCC) PHOSPHORUS Routine 07/30/2019 Kidney transpla nted 7:51 AM CDT Immunosuppression (HCC) MAGNESIUM Routine 07/30/2019 Kidney transpla nted 7:51 AM CDT Immunosuppression (HCC) COMPREHENSIVE METABOLIC Routine 07/30/2019 Kidney transplanted PANEL 7:51 AM CDT Immunosuppression ( HCC) documented in this encounter Results * CBC AND DIFF (07/30/2019 7:51 AM CDT) White Blood 2.82 (L) 5.00 - 10.00 K/uL [facility] INTERF RAMON Cells RBC 2.96 (L) 4.20 - 5.40 M/uL LAB[facility] INTERFA CE Hemoglobin 9.4 (L) 14.0 - 17.0 LABDE INTERFACE Hematocrit 29.0 (L) 42.0 - 52.0 LABDE INTERFACE MCV 98.0 (H) 80.0 - 97.0 LABDE INTERFACE MCH 31.8 (H) 27.0 - 31.2 pg LABDE INTERFACE MCHC 32.4 32.0 - 36.0 g/dL LABDE INTERFA CE Platelet Count 164 150 - 400 K/uL LAB[facility] INTERFACE RDW 14.8 11.6 - 14.8 % LABDE INTERFACE Absolute 2.15 2.00 - 6.90 K/uL LAB[facility] INTERFA CE Neutrophil Count Neutrophils 76.3 37.0 - 80.0 % LAB[facility] INTERFACE Absolute Lymph 0.28 (L) 0.60 - 3.40 LAB[facility] INTERFACE Count Lymphocytes 9.9 (L) 10.0 - 50.0 % LAB[facility] INTERFACE Absolute 0.3 0.0 - 0.9 K/uL [facility] INTERFACE Monocyte Count Monocytes 11.3 0.0 - 12.0 % LAB[facility] INTERFACE Absolute 0.1 0.0 - 0.7 K/uL LABDE INTERFACE Eosinophil Count Eosinophil 1.8 0.0 - 7.0 % LAB[facility] INTERFACE Absolute 0.0 0.0 - 0.2 K/uL LAB[facility] INTERFACE Basophil Count Basophil 0.70 0.00 - 2.50 % LAB[facility] INTERFACE MPV 11.0 (H) 7.4 - 10.0 [facility] INTERFACE Specimen Blood Narrative Performed At LAB[facility] INTERFACE Outside Lab Verified by Marilyn Woods on 07/30/2019. Performing Organization Address City/State/[facility] one Number [facility] INTER[facility] * COMPREHENSIVE METABOLIC PANEL (07/30/2019 7:51 AM CDT) Sodium 141 134 - 148 mmol/L LAB[facility] INTERFA CE Potassium 4.8 3.5 - 5.3 mmol/L LAB[facility] INTERFA CE Chloride 119 (H) 95 - 114 [facility] INTERFACE CO2 14 (L) 22 - 33 [facility] INTERFACE Anion Gap 13 6 - 14 [facility] INTERFACE Glucose 66 (L) 70 - 110 [facility] INTERFACE Blood Urea 26 (H) 5 - 25 [facility] INTERFACE Nitrogen Creatinine 3.07 (H) 0.50 - 1.50 LAB[facility] INTERFACE Calcium 8.5 8.3 - 10.4 LAB[facility] INTERFACE Alk Phosphatase 107 35 - 130 LABDE INTERFAC E AST (SGOT) 19 2 - 40 [facility] INTERFACE ALT (SGPT) 20 6 - 45 [facility] INTERFACE Total Bilirubin 0.2 0.2 - 1.2 LABDE INTERFAC E Total Protein 6.2 6.0 - 8.3 LAB[facility] INTERFACE Albumin 4.1 3.6 - 5.1 LAB[facility] INTERFACE eGFR Non 22 (L) >59 [facility] INTERFACE Specimen Blood Narrative Performed At [facility] INTERFACE Outside Lab Verified by Marilyn Woods on 07/30/2019. Performing Organization Address [facility]/State/[facility] Ph one Number LABDE INTERFACE * MAGNESIUM (07/30/2019 7:51 AM CDT) Magnesium 1.7 1.6 - 2.6 mg/dL LAB[facility] INTERFAC E Specimen Blood Narrative Performed At LAB[facility] INTERFACE Outside Lab Verified by Marilyn Woods on 07/30/2019. Performing Organization Address [facility]/State/[facility] Ph one Number LABDE INTERFACE * PHOSPHORUS (07/30/2019 7:51 AM CDT) Phosphorus 2.7 2.5 - 4.8 mg/dL LAB[facility] INTERFAC E Specimen Blood Narrative Performed At LAB[facility] INTERFACE Outside Lab Verified by Marilyn Woods on 07/30/2019. Performing Organization Address [facility] Ph one Number LABDE INTERFACE * PROTEIN/CR RATIO,UR RAN (07/30/2019 7:51 AM CDT) Protein, Random 61 (H) 0 - 20 LAB[facility] INTERFAC E Creatinine, 146.6 (H) 0.0 - 50.0 mg/dl LAB[facility] INTERFA CE Random Protein/CR 0.42 LAB[facility] INTERFACE ratio Specimen Urine - Urine Narrative Performed At LAB[facility] INTERFACE Outside Lab Verified by Marilyn Woods on 07/30/2019. Performing Organization Address [facility] Ph one Number LABDE INTERFACE * URIC ACID (07/30/2019 7:51 AM CDT) Uric Acid 6.4 2.6 - 7.2 mg/dL LAB[facility] INTERFAC E Specimen Blood Narrative Performed At LAB[facility] INTERFACE Outside Lab Verified by Marilyn Woods on 07/30/2019. Performing Organization Address City/State[facility] Number [facility] * URINALYSIS DIPSTICK REFLEX TO CULTURE (07/30/2019 7:51 AM CDT) Color,UA Yellow Lt. Yellow LABDE INTERFACE Turbidity,UA Clear Clear [facility] INTERFACE Glucose,UA Negative Negative [facility] INTERFACE Bilirubin,UA Negative Negative [facility] INTERFACE Ketones,UA Negative Negative [facility] INTERFACE Specific 1.020 1.000 - 1,030 LABDE INTERFACE [place]-Urine Blood,UA 1+ (A) Negative [facility] INTERFACE pH,UA 5.5 5 - 8.5 LAB[facility] INTERFACE Protein,UA 2+ (A) Negative LABDE INTERFACE Urobilinogen,UA 0.2 0.2 - 1.0 LABDE INTERFAC E Nitrite,UA Negative Negative LAB[facility] INTERFACE Leukocytes,UA Negative Negative [facility] INTERFACE Specimen Urine Narrative Performed At LAB[facility] INTERFACE Outside Lab Verified by Marilyn Woods on 07/30/2019. Performing Organization Address City/State/Zipcode Ph one Number LABDE INTERFACE * URINALYSIS MICROSCOPIC REFLEX TO CULTURE (07/30/2019 7:51 AM CDT) WBCs,UA Negative Negative /HPF LAB[facility] INTERFACE RBCs,UA 5-10 (A) Negative LABDE INTERFACE Bacteria,UA Negative [facility] INTERFACE Squamous 0-5 (A) Negative [facility] INTERFACE Epithelial Cells Specimen Urine Narrative Performed At LAB[facility] INTERFACE Outside Lab Verified by Marilyn Woods on 07/30/2019. 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
--- OUTSIDE RECORDS SUMMARY | 2019-09-28 08:42 | XMS REPORT | Encounter Summary ---
Author Author [facility] Organization [facility] Address Unknown Phone Unavailable Care Team Providers Care Adoption Services Manager Name Role Phone Dania Barksdale MD PCP Jose Huff DO Unavailable Encounter Details Care Team Description Date Type Department Self, Marilyn Kidney transplanted; Immunosuppression (HCC) 07/30/2019 Orders Only [facility] [address] [address] Social History Date Tobacco Use [...] Date Type Specialty Berta Harrison MD [address] [place] [address] Doroteo Enamorado MD [address] [place] [address] 10/02/2019 Hospital Radiology Encounter documented as of this encounter Goals Goal Patient Associated Recent Progress Patient-Stat Aut hor Goal Type Problems ed? Recover from illness Hospital Rajani Ac RN documented as of this encounter Procedures Comments Procedure Name Priority Date/Time Associated Diag nosis URINALYSIS MICROSCOPIC Routine 07/26/2019 Kidney transplanted REFLEX TO CULTURE 9:10 AM CDT Immunosuppression ( HCC) URINALYSIS DIPSTICK Routine 07/26/2019 Kidney tra nsplanted REFLEX TO CULTURE 9:10 AM CDT Immunosuppression ( HCC) PROTEIN/CR RATIO,UR RAN Routine 07/26/2019 Kidney transplanted 9:10 AM CDT Immunosuppression ([facility]) CBC AND DIFF Routine 07/26/2019 Kidney transpla nted 9:10 AM CDT Immunosuppression ([facility]) URIC ACID Routine 07/26/2019 Kidney transpla nted 9:10 AM CDT Immunosuppression ([facility]) PHOSPHORUS Routine 07/26/2019 Kidney transpla nted 9:10 AM CDT Immunosuppression (HCC) MAGNESIUM Routine 07/26/2019 Kidney transpla nted 9:10 AM CDT Immunosuppression (HCC) COMPREHENSIVE METABOLIC Routine 07/26/2019 Kidney transplanted PANEL 9:10 AM CDT Immunosuppression ( HCC) documented in this encounter Results * URIC ACID (07/26/2019 9:10 AM CDT) Uric Acid 6.2 2.6 - 7.2 mg/dL [facility] INTERFAC E Specimen Blood Narrative Performed At [facility] INTER[facility] Outside Lab Verified by Marilyn Woods on 07/30/2019. Performing Organization Address City/State/Zipcode Ph one Number [facility] INTERFACE * CBC AND DIFF (07/26/2019 9:10 AM CDT) White Blood 1.76 (L) 5.00 - 10.00 K/uL [facility] [place] Cells RBC 2.77 (L) 4.20 - 5.40 [facility] Hemoglobin 8.8 (L) 14.0 - 17.0 [facility] Hematocrit 26.7 (L) 42.0 - 52.0 [facility] MCV 96.4 80.0 - 97.0 [facility] MCH 31.8 (H) 27.0 - 31.2 pg [facility]FACE MCHC 33.0 32.0 - 36.0 g/dL [facility] INTERFA CE Platelet Count 121 (L) 150 - 400 K/uL [facility] RDW 14.3 11.6 - 14.8 % [facility] Absolute 1.30 (L) 2.00 - 6.90 [facility] Neutrophil Count Neutrophils 73.8 37.0 - 80.0 % [facility] Absolute Lymph 0.16 (L) 0.60 - 3.40 [facility] Count Lymphocytes 9.1 (L) 10.0 - 50.0 % [facility] INTERFACE Absolute 0.2 0.0 - 0.9 K/uL [facility] Monocyte Count Monocytes 12.5 (H) 0.0 - 12.0 % [facility] INTERFACE Absolute 0.1 0.0 - 0.7 K/uL [facility] INTERFACE Eosinophil Count Eosinophil 4.0 0.0 - 7.0 % [facility] INTERFACE Absolute 0.0 0.0 - 0.2 K/uL [facility] INTERFACE Basophil Count Basophil 0.60 0.00 - 2.50 % [facility] INTERFACE MPV 11.3 (H) 7.4 - 10.0 [facility] INTERFACE Specimen Blood Narrative Performed At [facility] INTER[facility] Outside Lab Verified by Marilyn Woods on 07/30/2019. Performing Organization Address City/State/Zipcode Ph one Number LABDE INTERFACE * COMPREHENSIVE METABOLIC PANEL (07/26/2019 9:10 AM CDT) Sodium 139 134 - 148 mmol/L [facility] INTERFA CE Potassium 5.0 3.5 - 5.3 mmol/L [facility] INTER[facility] CE Chloride 113 95 - 114 mmol/L [facility] INTERFAC E CO2 18 (L) 22 - 33 [facility] Glucose 50 (L) 70 - 110 mg/dL [facility] Blood Urea 29 (H) 5 - 25 [facility] Nitrogen Creatinine 3.28 (H) 0.50 - 1.50 [facility] Calcium 8.6 8.3 - 10.4 mg/dL [facility] INTERFA CE Alk Phosphatase 114 35 - 130 U/L [facility] INTERFAC E AST (SGOT) 22 2 - 40 U/L [facility]FACE ALT (SGPT) 24 6 - 45 U/L [facility] INTERFACE Total Bilirubin 0.2 0.2 - 1.2 mg/dL [facility] INTERFA CE Total Protein 6.1 6.0 - 8.3 g/dL [facility] Albumin 4.1 3.6 - 5.1 [facility] INTERFACE eGFR Non 20 (L) >59 mm [facility] INTERFACE Specimen Blood Narrative Performed At [facility] INTERFACE Outside Lab Verified by Marilyn Woods on 07/30/2019. Performing Organization Address [facility] Ph one Number LABDE INTERFACE * MAGNESIUM (07/26/2019 9:10 AM CDT) Magnesium 1.7 1.6 - 2.6 mg/dL [facility] INTERFAC E Specimen Blood Narrative Performed At [facility] INTERFACE Outside Lab Verified by Marilyn Woods on 07/30/2019. Performing Organization Address [facility] one Number LABDE INTERFACE * PHOSPHORUS (07/26/2019 9:10 AM CDT) Phosphorus 3.5 2.5 - 4.8 mg/dL [facility] INTERFAC E Specimen Blood Narrative Performed At [facility] INTERFACE Outside Lab Verified by Marilyn Woods on 07/30/2019. Performing Organization Address [facility] Ph one Number LABDE INTERFACE * PROTEIN/CR RATIO,UR RAN (07/26/2019 9:10 AM CDT) Protein, Random 81 (H) 0 - 20 [facility] INTER[facility]AC E Creatinine, 229.5 (H) 0.0 - 50.0 mg/dl [facility] INTERFA CE Random Protein/CR 0.35 [facility] INTERFACE ratio Specimen Urine - Urine Narrative Performed At [facility] INTER[facility] Outside Lab Verified by Marilyn Woods on 07/30/2019. Performing Organization Address [facility] Ph one Number LABDE INTERFACE * URINALYSIS DIPSTICK REFLEX TO CULTURE (07/26/2019 9:10 AM CDT) Color,UA Yellow Lt. Yellow [facility]FACE Turbidity,UA Clear Clear [facility] INTERFACE Glucose,UA Trace (A) Negative [facility] INTERFACE Bilirubin,UA Negative Negative [facility] INTERFACE Ketones,UA Negative Negative [facility] INTER[facility] Specific >=1.030 (A) 1.000 - 1.030 LABDE INTERFACE [place]-Urine Blood,UA 1+ (A) Negative [facility] INTERFACE pH,UA 5.5 5 - 8.5 [facility] INTERFACE Protein,UA 2+ (A) Negative [facility] INTERFACE Urobilinogen,UA 0.2 0.2 - 1.0 [facility] INTERFAC E Nitrite,UA Negative Negative [facility] INTERFACE Leukocytes,UA Negative Negative [facility] INTERFACE Specimen Urine Narrative Performed At [facility] INTERFACE Outside Lab Verified by Marilyn Woods on 07/30/2019. Performing Organization Address City/State/[facility] Ph one Number LABDE INTERFACE * URINALYSIS MICROSCOPIC REFLEX TO CULTURE (07/26/2019 9:10 AM CDT) WBCs,UA Negative Negative /HPF [facility] INTERFACE RBCs,UA Few (A) Negative [facility] INTERFACE Bacteria,UA Negative Negative [facility] INTERFACE Squamous 0-5 Negative [facility] INTERFACE Epithelial Cells Specimen Urine Narrative Performed At [facility] INTERFACE Outside Lab Verified by Marilyn Woods on 07/30/2019. 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
--- OUTSIDE RECORDS SUMMARY | 2019-09-28 08:42 | XMS REPORT | Encounter Summary ---
Author Author [facility] Organization [facility] Address Unknown Phone Unavailable Care Team Providers Care Service Desk Director Name Role Phone Dania Barksdale MD PCP Jose Huff DO Unavailable Reason for Visit * Reason Comments Results Prograf 08/10 Encounter Details Care Team Description Date Type Department Lucia Trinidad, RN Results (Prograf 08/10) 08/06/[address] [address] Social History Date Tobacco Use Types Packs/Day [...] Telephone Encounter - Lucia Trinidad, RN - 08/06/2019 2:16 PM CDT Reviewed pt's labs from 07/29 and 08/01. Tac level supratherapeutic. Pt called on Tuesday, 08/02. Pt did not lower Prograf dose last week and has continued Prograf 5/5. NC instructed pt to lower Prograf to 4/4, pt read back instructions correct ly. Pt had labs completed today, 08/05. Will assess tacro level on correct dose. Dr. Idania Harrison notified and updated. documented in this encounter Plan of Treatment Care Team Description Date Type Specialty Berta Harrison MD [address] [place] [address] Doroteo Enamorado MD [address] [place] [address] 10/02/2019 Hospital Radiology Encounter documented as of this encounter Goals Goal Patient Associated Recent Progress Patient-Stat Aut hor Goal Type Problems ed? Recover from illness Hospital Rajani Ac, JAIME documented as of this encounter Visit Diagnoses Not on filedocumented in this encounter
--- OUTSIDE RECORDS SUMMARY | 2019-09-28 08:42 | XMS REPORT | Encounter Summary ---
Author Author [facility] Organization [facility] Address Unknown Phone Unavailable Care Team Providers Care Curriculum Specialist Name Role Phone Dania Barksdale MD PCP Jose Huff DO Unavailable Encounter Details Care Team Description Date Type Department Self, Marilyn Kidney transplanted; Immunosuppression (HCC) 07/27/2019 Orders Only [facility] [address] [address] Social History Date Tobacco Use [...] Date Type Specialty Berta Harrison MD [address] [place] [address] Doroteo Enamorado MD 4000 [place] [address] 10/02/2019 Hospital Radiology Encounter documented as of this encounter Goals Goal Patient Associated Recent Progress Patient-Stat Aut hor Goal Type Problems ed? Recover from illness Hospital No Rajani Gallego RN documented as of this encounter Procedures Comments Procedure Name Priority Date/Time Associated Diag nosis TACROLIMUS LEVEL(FK506) Routine 07/19/2019 Kidney transplanted 9:39 AM CDT Immunosuppression (HCC) documented in this encounter Results * TACROLIMUS LEVEL(FK506) (07/19/2019 9:39 AM CDT) Tacrolimus 8.4 2.0 - 20.0 [facility] INTERFACE Specimen Blood Narrative Performed At [facility] INTERFACE Outside Lab Verified by Marilyn Woods on 07/27/2019. 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
--- OUTSIDE RECORDS SUMMARY | 2019-09-28 08:42 | XMS REPORT | Encounter Summary ---
Author Author [facility] Organization [facility] Address Unknown Phone Unavailable Care Team Providers Care Freight Car Cleaner Name Role Phone Dania Barksdale MD PCP Jose Huff DO Unavailable Encounter Details Care Team Description Date Type Department Kandy Gill MA Kidney transplanted; Immunosuppression (HCC) 08/09/2019 Orders Only [facility] [address] [address] Social History Date Tobacco Use [...] Date Type Specialty Berta Harrison MD 4000 [place] [address] [phone] Doroteo Enamorado MD [address] [place] [address] 10/02/2019 Hospital Radiology Encounter documented as of this encounter Goals Goal Patient Associated Recent Progress Patient-Stat Aut hor Goal Type Problems ed? Recover from illness [facility] Rajani Ac RN documented as of this encounter Procedures Comments Procedure Name Priority Date/Time Associated Diag nosis TACROLIMUS LEVEL(FK506) Routine 08/06/2019 Kidney transplanted 7:36 AM CDT Immunosuppression (HCC) documented in this encounter Results * TACROLIMUS LEVEL(FK506) (08/06/2019 7:36 AM CDT) Tacrolimus 11.6 [facility] INTERFACE Specimen Blood Narrative Performed At [facility] INTERFACE Outside Lab Verified by Kandy crowe 08/09/2019. 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
--- OUTSIDE RECORDS SUMMARY | 2019-09-28 08:42 | XMS REPORT | Encounter Summary ---
Author Author [facility] Organization [facility] Address Unknown Phone Unavailable Care Team Providers Care Operations/Dispatch Name Role Phone Dania Barksdale MD PCP Jose Huff DO Unavailable Encounter Details Care Team Description Date Type Department Self, Marilyn Kidney transplanted; Immunosuppression (HCC) 08/07/2019 Orders Only The [facility] [address] [address] Social History Date Tobacco Use [...] Date Type Specialty Berta Harrison MD 4000 [place] [address] Doroteo Enamorado MD [address] [place] [address] 10/02/2019 Hospital Radiology Encounter documented as of this encounter Goals Goal Patient Associated Recent Progress Patient-Stat Aut hor Goal Type Problems ed? Recover from illness [facility] Rajani Ac RN documented as of this encounter Procedures Comments Procedure Name Priority Date/Time Associated Diag nosis MAGNESIUM Routine 08/06/2019 Kidney transpla nted 7:38 AM CDT Immunosuppression (HCC) URINALYSIS MICROSCOPIC Routine 08/06/2019 Kidney transplanted REFLEX TO CULTURE 7:36 AM CDT Immunosuppression ( HCC) URINALYSIS DIPSTICK Routine 08/06/2019 Kidney tra nsplanted REFLEX TO CULTURE 7:36 AM CDT Immunosuppression ( HCC) CBC AND DIFF Routine 08/06/2019 Kidney transpla nted 7:36 AM CDT Immunosuppression ([facility]) URIC ACID Routine 08/06/2019 Kidney transpla nted 7:36 AM CDT Immunosuppression (HCC) PHOSPHORUS Routine 08/06/2019 Kidney transpla nted 7:36 AM CDT Immunosuppression (HCC) COMPREHENSIVE METABOLIC Routine 08/06/2019 Kidney transplanted PANEL 7:36 AM CDT Immunosuppression ( HCC) documented in this encounter Results * MAGNESIUM (08/06/2019 7:38 AM CDT) Magnesium 1.8 1.6 - 2.6 LAB[facility] INTERFACE Specimen Blood Narrative Performed At [facility] INTERFACE Outside Lab Verified by Marilyn Woods on 08/07/2019. Performing Organization Address City/State/Zipcode Ph one Number LABDE INTERFACE * CBC AND DIFF (08/06/2019 7:36 AM CDT) White Blood 4.99 (L) 5.00 - 10.00 K/uL LABDE INTERF RAMON Cells RBC 2.93 (L) 4.20 - 5.40 LAB[facility] INTERFACE Hemoglobin 9.4 (L) 14.0 - 17.0 LABDE INTERFACE Hematocrit 28.7 (L) 42.0 - 52.0 LAB[facility] INTERFACE MCV 98.0 (H) 80.0 - 97.0 LABDE INTERFACE MCH 32.1 (H) 27.0 - 31.2 pg LABDE INTERFACE MCHC 32.8 32.0 - 36.0 g/dL LABDE INTERFA CE Platelet Count 155 150 - 400 K/uL LAB[facility] INTERFACE RDW 15.6 (H) 11.6 - 14.8 % LABDE INTERFACE Absolute 4.02 2.00 - 6.90 K/uL LAB[facility] INTERFA CE Neutrophil Count Neutrophils 80.6 (H) 37.0 - 80.0 % LABDE INTERFACE Absolute Lymph 0.30 (L) 0.60 - 3.40 LAB[facility] INTERFACE Count Lymphocytes 6.0 (L) 10.0 - 50.0 % LAB[facility] INTERFACE Absolute 0.6 0.0 - 0.9 K/uL LAB[facility] INTERFACE Monocyte Count Monocytes 11.6 0.0 - 12.0 % LAB[facility] INTERFACE Absolute 0.1 0.0 - 0.7 K/uL LABDE INTERFACE Eosinophil Count Eosinophil 1.6 0.0 - 7.0 % LAB[facility] INTERFACE Absolute 0.0 [facility] INTERFACE Basophil Count Basophil 0.20 [facility] INTERFACE Specimen Blood Narrative Performed At [facility] INTERFACE Outside Lab Verified by Marilyn Woods on 08/07/2019. Performing Organization Address City/State/Zipcode Ph one Number LABDE INTERFACE * COMPREHENSIVE METABOLIC PANEL (08/06/2019 7:36 AM CDT) Sodium 140 134 - 148 [facility] INTERFACE Potassium 4.7 3.5 - 5.3 [facility] INTERFACE Chloride 117 (H) 95 - 114 [facility]FACE CO2 18 (L) 22 - 33 [facility] INTERFACE Anion Gap 10 6 - 14 [facility] INTERFACE Glucose 59 (L) 70 - 110 [facility] INTERFACE Blood Urea 27 (H) 5 - 25 [facility] INTERFACE Nitrogen Creatinine 2.54 (H) 0.50 - 1.50 LAB[facility] INTERFACE Calcium 8.6 8.3 - 10.4 LABDE INTERFACE Alk Phosphatase 102 35 - 130 LABDE INTERFAC E AST (SGOT) 21 2 - 40 LABDE INTERFACE ALT (SGPT) 16 6 - 45 [facility] INTERFACE Total Bilirubin 0.3 0.2 - 1.2 LABDE INTERFAC E Total Protein 5.9 (L) 6.0 - 8.3 LABDE INTERFACE eGFR Non 27 (L) >59 [facility] INTERFACE Specimen Blood Narrative Performed At [facility] INTERFACE Outside Lab Verified by Marilyn Woods on 08/07/2019. Performing Organization Address [facility] Ph one Number LABDE INTERFACE * PHOSPHORUS (08/06/2019 7:36 AM CDT) Phosphorus 2.7 2.5 - 4.8 mg/dL LABDE INTERFAC E Specimen Blood Narrative Performed At [facility] INTERFACE Outside Lab Verified by Marilyn Woods on 08/07/2019. Performing Organization Address [facility] Ph one Number LABDE INTERFACE * URIC ACID (08/06/2019 7:36 AM CDT) Uric Acid 5.6 2.6 - 7.2 mg/dL LABDE INTERFAC E Specimen Blood Narrative Performed At LABDE INTERFACE Outside Lab Verified by Marilyn Woods on 08/07/2019. Performing Organization Address [facility] Ph one Number LABDE INTERFACE * URINALYSIS DIPSTICK REFLEX TO CULTURE (08/06/2019 7:36 AM CDT) Color,UA Yellow Yellow LABDE INTERFACE Turbidity,UA Clear Clear [facility] INTERFACE Glucose,UA Trace (A) Negative [facility] INTERFACE Bilirubin,UA Negative Negative LABDE INTERFACE Ketones,UA Negative Negative LABDE INTERFACE Specific 1.020 1.000 - 1.030 LABDE INTERFACE [place]-Urine Blood,UA 2+ (A) Negative LABDE INTERFACE pH,UA 6.0 LABDE INTERFACE Protein,UA 1+ (A) Negative LABDE INTERFACE Urobilinogen,UA 0.2 LABDE INTERFACE Nitrite,UA Negative Negative LABDE INTERFACE Leukocytes,UA Negative Negative LABDE INTERFACE Specimen Urine Narrative Performed At [facility]DE INTERFACE Outside Lab Verified by Marilyn Woods on 08/07/2019. Performing Organization Address [facility] Ph one Number LABDE INTERFACE * URINALYSIS MICROSCOPIC REFLEX TO CULTURE (08/06/2019 7:36 AM CDT) WBCs,UA 0-2 0 - 2 /HPF LABDE INTERFACE RBCs,UA Rare (A) LABDE INTERFACE Bacteria,UA Negative LABDE INTERFACE Squamous 0-5 None seen LABDE INTERFACE Epithelial Cells Specimen Urine Narrative Performed At LABDE INTERFACE Outside Lab Verified by Marilyn Woods on 08/07/2019. 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
--- OUTSIDE RECORDS SUMMARY | 2019-09-28 08:42 | XMS REPORT | Encounter Summary ---
Author Author [facility] Organization [facility] Address Unknown Phone Unavailable Care Team Providers Care Clean Up Supervisor Name Role Phone Dania Barksdale MD PCP Jose Huff DO Unavailable Reason for Visit * Reason Comments Results Prograf 09/10 to 08/10 Encounter Details Care Team Description Date Type Department Lucia Trinidad RN Results (Prograf 5 to 08/10 ) 07/30/[address] [address] Social History Date Tobacco Use Types Packs/Day [...] Telephone Encounter - Lucia Trinidad RN - 07/30/2019 2:10 PM CDT Reviewed pt's labs from 07/25 and 07/29. Tacro level on 07/[address] Idania Harrison and will decrease Prograf from 5/5 to 4/4. Called to discuss with p t who read back instructions correctly. Creat on 07/29 improved at 3.07, Hgb 9.4. Pt will repeat labs on , 08/01, and receive Epo injection. documented in this encounter Plan of Treatment Care Team Description Date Type Specialty Berta Harrison MD [address] [place] [address] Doroteo Enamorado MD [address] [place] [address] 10/02/2019 Hospital Radiology Encounter documented as of this encounter Goals Goal Patient Associated Recent Progress Patient-Stat Aut hor Goal Type Problems ed? Recover from illness [facility] Rajani Ac, JAIME documented as of this encounter Visit Diagnoses Not on filedocumented in this encounter
--- OUTSIDE RECORDS SUMMARY | 2019-09-28 08:42 | XMS REPORT | Encounter Summary ---
Author Author [facility] Organization [facility] Address Unknown Phone Unavailable Care Team Providers Care Senior Abap Developer Name Role Phone Dania Barksdale MD PCP Jose Huff DO Unavailable Reason for Visit * Reason Comments Results RVP pos Encounter Details Care Team Description Date Type Department Lucia Trinidad RN Results (RVP pos) 07/24/2019 Telephone The [facility] [address] [id number] Social History Date Tobacco Use Types Packs/Day [...] Telephone Encounter - Lucia Trinidad RN - 07/24/2019 4:00 PM CDT Reviewed pt's labs and clinic visit from 07/23. Discussed with pt the need to obt ain Epogen injection this week, pt needs to call to schedule. NC confirmed that Epo is ready to be administered. RVP pos for H1N1 and rhinovirus. Discussed with MYRIAM Martinez, and will have pt continue tamiflu course, hold MPA for 48 hour s. Called and discussed with pt who read back instructions correctly. Pt to comp lete labs on , 07/25. Will call to obtain Pulmonology records from OSH. documented in this encounter Plan of Treatment Care Team Description Date Type Specialty Berta Harrison MD [address] [place] [address] Doroteo Enamorado MD [address] [place] [address] 10/02/2019 Hospital Radiology Encounter documented as of this encounter Goals Goal Patient Associated Recent Progress Patient-Stat Aut hor Goal Type Problems ed? Recover from illness Hospital Rajani Ac RN documented as of this encounter Visit Diagnoses Not on filedocumented in this encounter
--- OUTSIDE RECORDS SUMMARY | 2019-09-28 08:42 | XMS REPORT | Encounter Summary ---
Author Author [facility] Organization [facility] Address Unknown Phone Unavailable Care Team Providers Care Academic Affairs Specialist Name Role Phone Dania Barksdale MD PCP Jose Huff DO Unavailable Encounter Details Care Team Description Date Type Department Self, Marilyn Kidney transplanted; Immunosuppression (HCC) 08/06/2019 Orders Only [facility] [address] [address] Social History Date Tobacco Use [...] Date Type Specialty Berta Harrison MD [address] [place] [address] Doroteo Enamorado MD [address] [place] [address] 10/02/2019 Hospital Radiology Encounter documented as of this encounter Goals Goal Patient Associated Recent Progress Patient-Stat Aut hor Goal Type Problems ed? Recover from illness Hospital No Rajani Gallego RN documented as of this encounter Procedures Comments Procedure Name Priority Date/Time Associated Diag nosis TACROLIMUS LEVEL(FK506) Routine 07/30/2019 Kidney transplanted 7:51 AM CDT Immunosuppression (HCC) documented in this encounter Results * TACROLIMUS LEVEL(FK506) (07/30/2019 7:51 AM CDT) Tacrolimus 20.7 (HH) 2.0 - 20.0 [facility] INTER[facility] Specimen Blood Narrative Performed At [facility] Outside Lab Verified by Marilyn Woods on 08/06/2019. 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
--- OUTSIDE RECORDS SUMMARY | 2019-09-28 08:42 | XMS REPORT | Encounter Summary ---
Author Author [facility] Organization [facility] Address Unknown Phone Unavailable Care Team Providers Care Paper Spooler Name Role Phone Dania Barksdale MD PCP Jose Huff DO Unavailable Encounter Details Care Team Description Date Type Department Kandy Gill MA Kidney transplanted; Immunosuppression (HCC) 07/30/2019 Orders Only [facility] [address] [address] Social History Date Tobacco Use [...] Date Type Specialty Berta Harrison MD [address] [place] [address] Doroteo Enamorado MD [address] [place] [address] 10/02/2019 Hospital Radiology Encounter documented as of this encounter Goals Goal Patient Associated Recent Progress Patient-Stat Aut hor Goal Type Problems ed? Recover from illness Hospital No Rajani Gallego RN documented as of this encounter Procedures Comments Procedure Name Priority Date/Time Associated Diag nosis TACROLIMUS LEVEL(FK506) Routine 07/26/2019 Kidney transplanted 9:10 AM CDT Immunosuppression (HCC) documented in this encounter Results * TACROLIMUS LEVEL(FK506) (07/26/2019 9:10 AM CDT) Tacrolimus 14.4 [facility] INTERFACE Specimen Blood Narrative Performed At [facility] INTERFACE Outside Lab Verified by Kandy crowe 07/30/2019. 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
--- OUTSIDE RECORDS SUMMARY | 2019-09-28 08:43 | XMS REPORT | Encounter Summary ---
Author Author [facility] Organization [facility] Address Unknown Phone Unavailable Care Team Providers Care Carbon Rod Inserter Name Role Phone Dania Barksdale MD PCP Jose Huff DO Unavailable Encounter Details Care Team Description Date Type Department Self, Marilyn Kidney transplanted; Immunosuppression (HCC) 07/20/2019 Orders Only [facility] [address] [address] Social History Date Tobacco Use [...] Status Date of Assessment Functional Status Response 07/10/2019 Does the patient have a hearing impairment: No 07/10/2019 Does the patient have a visual impairment: Yes 07/10/2019 Does the patient have impaired ambulation: Yes 07/10/2019 Does the patient have an activity of daily living No (ADL) impairment: 07/10/2019 Does the patient have an instrumental activity of No daily living (IADL) impairment: Date of Assessment Cognitive Status Response 07/10/2019 Does the patient have a cognitive impairment: No documented as of this encounter Plan of Treatment Care Team Description Date Type Specialty Berta Harrison MD [address] [place] [address] Doroteo Enamorado MD [address] [place] [address] 10/02/2019 Hospital Radiology Encounter documented as of this encounter Goals Goal Patient Associated Recent Progress Patient-Stat Aut hor Goal Type Problems ed? Recover from illness Hospital Rajani Ac RN documented as of this encounter Procedures Comments Procedure Name Priority Date/Time Associated Diag nosis URINALYSIS MICROSCOPIC Routine 07/19/2019 Kidney transplanted REFLEX TO CULTURE 9:39 AM CDT Immunosuppression ( HCC) URINALYSIS DIPSTICK Routine 07/19/2019 Kidney tra nsplanted REFLEX TO CULTURE 9:39 AM CDT Immunosuppression ( HCC) PROTEIN/CR RATIO,UR RAN Routine 07/19/2019 Kidney transplanted 9:39 AM CDT Immunosuppression (HCC) CBC AND DIFF Routine 07/19/2019 Kidney transpla nted 9:39 AM CDT Immunosuppression (HCC) URIC ACID Routine 07/19/2019 Kidney transpla nted 9:39 AM CDT Immunosuppression (HCC) PHOSPHORUS Routine 07/19/2019 Kidney transpla nted 9:39 AM CDT Immunosuppression (HCC) MAGNESIUM Routine 07/19/2019 Kidney transpla nted 9:39 AM CDT Immunosuppression (HCC) COMPREHENSIVE METABOLIC Routine 07/19/2019 Kidney transplanted PANEL 9:39 AM CDT Immunosuppression ( HCC) documented in this encounter Results * CBC AND DIFF (07/19/2019 9:39 AM CDT) White Blood 4.46 (L) 5.00 - 10.00 K/uL [facility] INTERF RAMON Cells RBC 2.80 (L) 4.20 - 5.40 [facility] Hemoglobin 8.9 (L) 14.0 - 17.0 [facility] Hematocrit 27.2 (L) 42.0 - 52.0 [facility] MCV 97.1 (H) 80.0 - 97.0 [facility] MCH 31.8 (H) 27.0 - 31.2 pg [facility] MCHC 32.7 32.0 - 36.0 g/dL [facility] INTERFA CE Platelet Count 149 (L) 150 - 400 K/uL [facility] RDW 14.0 11.6 - 14.8 % [facility] Absolute 3.59 2.00 - 6.90 K/uL [facility] INTERFA CE Neutrophil Count Neutrophils 80.6 (H) 37.0 - 80.0 % [facility] Absolute Lymph 0.33 (L) 0.60 - 3.40 [facility] Count Lymphocytes 7.4 (L) 10.0 - 50.0 % [facility] Absolute 0.4 0.0 - 0.9 K/uL [facility] Monocyte Count Monocytes 8.7 0.0 - 12.0 % [facility] Absolute 0.1 0.0 - 0.7 K/uL [facility] Eosinophil Count Eosinophil 3.1 0.0 - 7.0 % [facility] Absolute 0.0 0.0 - 0.2 K/uL [facility] Basophil Count Basophil 0.20 0.00 - 2.50 % [facility] MPV 11.2 (H) 7.4 - 10.0 [facility] Specimen Blood Narrative Performed At [facility] INTERFACE Outside Lab Verified by Marilyn Woods on 07/20/2019. Performing Organization Address City/State[facility] Ph one Number [facility] * COMPREHENSIVE METABOLIC PANEL (07/19/2019 9:39 AM CDT) Sodium 141 134 - 148 [facility] Potassium 5.0 3.5 - 5.3 mmol/L [facility] INTERFA CE Chloride 117 (H) 95 - 114 [facility] CO2 17 (L) 22 - 33 [facility] Anion Gap 12 6 - 14 [facility] Glucose 68 (L) 70 - 110 [facility] Blood Urea 22 5 - 25 [facility] Nitrogen Creatinine 2.95 (H) 0.50 - 1.50 [facility] Calcium 9.0 8.3 - 10.4 [facility] Alk Phosphatase 119 35 - 130 [facility] INTERFAC E AST (SGOT) 16 2 - 40 [facility] ALT (SGPT) 13 6 - 45 [facility] Total Bilirubin 0.2 0.2 - 1.2 [facility] INTERFAC E Albumin 4.1 3.6 - 5.1 [facility]FACE eGFR Non 23 (L) >59 [facility] Specimen Blood Narrative Performed At [facility] Outside Lab Verified by Marilyn Woods on 07/20/2019. Performing Organization Address [facility]/State/[facility] Ph one Number [facility] INTERFACE * MAGNESIUM (07/19/2019 9:39 AM CDT) Magnesium 1.7 1.6 - 2.6 mg/dL [facility] INTERFAC E Specimen Blood Narrative Performed At [facility] INTER[facility] Outside Lab Verified by Marilyn Woods on 07/20/2019. Performing Organization Address [facility]/State/[facility] Ph one Number [facility] INTERFACE * PHOSPHORUS (07/19/2019 9:39 AM CDT) Phosphorus 2.5 mg/dL [facility] INTER[facility] Specimen Blood Narrative Performed At [facility] INTER[facility] Outside Lab Verified by Marilyn Woods on 07/20/2019. Performing Organization Address [facility]/State/[facility] Ph one Number [facility] * PROTEIN/CR RATIO,UR RAN (07/19/2019 9:39 AM CDT) Creatinine, 145.4 (H) 0.0 - 50.0 mg/dl [facility] INTERFA CE Random Specimen Urine - Urine Narrative Performed At [facility] Outside Lab Verified by Marilyn Woods on 07/20/2019. Performing Organization Address [facility]/State/[facility] Ph one Number [facility] INTER[facility] * URIC ACID (07/19/2019 9:39 AM CDT) Uric Acid 5.8 2.6 - 7.2 mg/dL [facility] INTERFAC E Specimen Blood Narrative Performed At [facility] INTER[facility] Outside Lab Verified by Marilyn Woods on 07/20/2019. Performing Organization Address City/State/[facility] Ph one Number [facility] * URINALYSIS DIPSTICK REFLEX TO CULTURE (07/19/2019 9:39 AM CDT) Color,UA Yellow Lt. Yellow [facility] Turbidity,UA Clear Clear [facility] Glucose,UA Negative Negative [facility] Bilirubin,UA Negative Negative [facility] Ketones,UA Negative Negative [facility] Specific 1.025 1.000 - 1.030 [facility] INTERFACE [place]-Urine Blood,UA 1+ (A) Negative [facility] pH,UA 5.5 5 - 8.5 [facility] Protein,UA 1+ (A) Negative [facility] Urobilinogen,UA 0.2 0.2 - 1.0 [facility] INTERFAC E Nitrite,UA Negative Negative [facility] Leukocytes,UA Negative Negative [facility] Specimen Urine Narrative Performed At [facility] INTER[facility] Outside Lab Verified by Marilyn Woods on 07/20/2019. Performing Organization Address City/State/[facility] Ph one Number LABDE INTERFACE * URINALYSIS MICROSCOPIC REFLEX TO CULTURE (07/19/2019 9:39 AM CDT) WBCs,UA Rare (A) None Seen [facility] RBCs,UA Few (A) None Seen [facility] Bacteria,UA Negative [facility] Squamous 0-5 (A) None Seen [facility] Epithelial Cells Specimen Urine Narrative Performed At [facility] INTERFACE Outside Lab Verified by Marilyn Woods on 07/20/2019. 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
--- OUTSIDE RECORDS SUMMARY | 2019-09-28 08:43 | XMS REPORT | Encounter Summary ---
Author Author [facility] Organization [facility] Address Unknown Phone Unavailable Care Team Providers Care Library Circulation Department Chief Name Role Phone Dania Barksdale MD PCP Jose Huff DO Unavailable Encounter Details Care Team Description Date Type Department Kandy Gill MA Kidney transplanted; Immunosuppression (HCC) 07/20/2019 Orders Only [facility] [address] [address] Social History Date Tobacco Use [...] Date Type Specialty Berta Harrison MD 4000 [place] [address] Doroteo Enamorado MD [address] [place] [address] 10/02/2019 Hospital Radiology Encounter documented as of this encounter Goals Goal Patient Associated Recent Progress Patient-Stat Aut hor Goal Type Problems ed? Recover from illness Hospital No Rajani Gallego RN documented as of this encounter Procedures Comments Procedure Name Priority Date/Time Associated Diag nosis TACROLIMUS LEVEL(FK506) Routine 07/16/2019 Kidney transplanted 7:55 AM CDT Immunosuppression (HCC) documented in this encounter Results * TACROLIMUS LEVEL(FK506) (07/16/2019 7:55 AM CDT) Tacrolimus 12.3 [facility] INTERFACE Specimen Blood Narrative Performed At [facility] INTERFACE Outside Lab Verified by Kandy crowe 07/20/2019. 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
--- OUTSIDE RECORDS SUMMARY | 2019-09-28 08:43 | XMS REPORT | Encounter Summary ---
Author Author [facility] Organization [facility] Address Unknown Phone Unavailable Care Team Providers Care Silk Worker Name Role Phone Dania Barksdale MD PCP Jose Huff DO Unavailable Reason for Visit * Reason Comments s/p Kidney Transplant-Routine Follow-up Encounter Details Care Team Description Date Type Department Velia Moore APRN 4000 [facility] [id number] [place] [address] Kidney transplanted (Primary Dx); Immunosuppression (HCC); Kidney replaced by transplant; GREGORY (obstructive sleep apnea); Cough; Uncontrolled type 1 diabetes mellitus with hypoglycemia without coma (HCC); H1N1 influenza; Rhinovirus 07/24/2019 Office Visit [facility] [address] [address] Social History Date Tobacco [...] Signs Reading Time Taken Comments Vital Sign 115/58 07/24/2019 10:28 AM CDT Blood Pressure 92 07/24/2019 10:28 AM CDT Pulse 36.7 C (98 F) 07/24/2019 10:25 AM CDT Temperature - - Respiratory Rate 99% 07/24/2019 10:25 AM CDT Oxygen Saturation - - Inhaled Oxygen Concentration 94.3 kg (208 lb) 07/24/2019 10:25 AM CDT Weight 167.6 cm (5' 6") 07/24/2019 10:25 AM CDT Height 33.57 07/24/2019 10:25 AM CDT Body Mass Index documented in [...] * Patient Instructions* Lucia Trinidad RN - 07/24/2019 11:00 AM CDT Return to see Dr. Berta Harrison in 3 weeks Medication changes: Decrease Myfortic to 360mg twice a day (2 tabs) documented in this encounter Progress Notes * Lucia Trinidad, JAIME - 07/24/2019 11:00 AM CDT Last visit: 07/10/1905/30: HD session while inpatient 06/01: hospital d/c 06/04: HD session as outpatient 06/14: CORI drain removed. 06/27: Metoprolol stopped for BPs 90s. 06/28: Decreased Prograf 5/5 to 4/4. US neg, DSA/Allosure neg, CXR neg, Flu neg. 07/08: Ureteral stent removed. 07/09: Myfortic decreased to 540mg BID. 07/11: Prograf increased from 4/4 to 5/5 07/16: Prophylactic Tamiflu, renally dosed 07/18: Prograf decreased from 5/5 to 4/5. *Needs Epo injection. 07/23 ROS: Pt has cough, denies fever- temp has been 98F. BPs 120-140s. Blood sug ars still variable. Pt stated he received new CGM. UO 1.4-1.5L. Intake is ~2L. P t states cough is very uncomfortable. States he has post nasal drip and sore thr oat. CT chest prescribed by local Tree Puller. Via [facility]. Dr. Huff Transplant Synopsis: Date: 05/27/2019 Donor: DCD from a female donor in early 50's KDPI: 60% CPRA: 0% DSA: none Induction: Thymo for steroid avoidance CMV status: D+/R- Post-op course: DGF Ureteral stent removal: 07/09/19 Baseline Scr: TBD Clinical trial: none Referring fine dining server: Brayden Surgeon: Morales PMH: DM 1, Seizure disorder, depression, GREGORY, Vit D deficiency, obesity * Velia Moore APRN - 07/24/2019 11:00 AM CDT [facility] Date of Service: 07/24/19 Stef Pace [id number] TRANSPLANT SYNOPSIS: Date: 05/27/2019, ESRD from type 1 DM Donor: DCD from a female donor in early 50's KDPI: 60% CPRA: 0% DSA: none Induction: Thymo for steroid avoidance, continued on steroid given rise in Cr af ter initial downtrend CMV status: D+/R- Post-op course: DGF, last HD was 06/04/19 Ureteral stent removal: July 08 Baseline Scr: TBD Referring Oracle Forms Developer: Malathi Owen [address] [address] HPI We had the pleasure of meeting Mr. Pace in the Renal Transplant Clinic for routine evaluation of his renal transplant. Today he presents with his , inf ant and relative. His primary concern today is his persistent and strong cough. He reports his cough waxes and wanes by intensity since June. He was negativ e for Influenza A/B and RSV at that time. He was seen by Pulmonary yesterday and was tested for the flu that was reportedly negative. He also had a CXR that was done. Unclear, why he has a CT chest planned for 07/26/19. He was recently placed on Tamiflu [07/17/2019] as his spouse had been exposed to Influenza A. His coug dahiana has increased at times in which he has dry heaving. He denies fever, myalgi as, sputum or chills. Of note he continues to use a CPAP and denies SOA, CRYSTAL, pl eurisy or PND. He reports stable appetite and weight. Denies hospitalizations, illnesses, chest pains, abd pain, swelling, rash, dysur ia. He reports compliance with his immunosuppression regimen. REVIEW OF SYSTEMS: Comprehensive 14-point ROS reviewed Constitutional/General: Negative for fever, chills, weakness, anorexia, fatigue, malaise or unintentional weight loss/weight gain. As per HPI HEENT: Negative for headache, diplopia, tinnitus, rhinorrhea, epistaxis, sore t hroat, mouth ulcers Lymphatics: Negative for enlarged lymph nodes Respiratory: Negative for + cough Cardiovascular: Negative for chest pain, SOA, palpitations, orthopnea, PND, swel ling Gastrointestinal: Negative for abdominal pain, nausea, vomiting, diarrhea, const ipation Genitourinary: Negative for flank pain, burning micturition, frequency, bloody u rine, oliguria Extremities: Negative for leg swelling M/S: Negative for joint swelling, redness, pain Skin: Negative for rash, itching or lesions Endocrine: Negative for sweating, cold or heat intolerance. No polyuria or polyd ipsia Neurologic: Negative for muscle weakness, numbness, tingling. 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 No pertinent family history. Allergies Allergen Reactions Penicillins ANAPHYLAXIS Codeine VOMITING Current Medications: Current Outpatient Medications: acetaminophen (TYLENOL) 325 mg tablet, Take two tablets by mouth every 4 ho urs as needed., Disp: 100 tablet, Rfl: 1 aspirin EC 81 mg tablet, Take one tablet by mouth daily. Take with food., D isp: 90 tablet, Rfl: 1 azithromycin (ZITHROMAX) 250 mg tablet, Take two tablets by mouth daily for 1 day, THEN one tablet daily for 4 days., Disp: 6 tablet, Rfl: 0 benzonatate (TESSALON PERLES) 100 mg capsule, Take one capsule by mouth geena ry 8 hours as needed for Cough., Disp: 20 capsule, Rfl: 1 epoetin krista (PROCRIT) 10,000 unit/mL injection, Inject 1 mL under the skin every 7 days for 4 doses., Disp: 1 mL, Rfl: 3 ergocalciferol (VITAMIN D-2) 1,250 mcg (50,000 unit) capsule, Take one caps ule by mouth every 7 days., Disp: 12 capsule, Rfl: 0 ferrous sulfate (FEOSOL) 325 mg (65 mg iron) tablet, Take one tablet by svetlana th twice daily. Take on an empty stomach [...] daily., Disp: , Rfl: [facility] [place] Use to monitor blood pressure as [place]., Disp: 1 each, Rfl: [address] (MYFORTIC) 180 mg TbEC tablet, Take three tablets by mouth twice daily., Disp: 180 tablet, Rfl: [address](+) (PRILOSEC) 40 [...] 0 tacrolimus (PROGRAF) 1 mg capsule, Take five capsules by mouth twice daily. , Disp: 300 capsule, Rfl: 11 tamsulosin (FLOMAX) 0.4 mg [...] mouth at bedtime daily., Disp: , Rfl: [START ON 07/25/2019] trimethoprim/sulfamethoxazole (BACTRIM) 80/400 mg tabl et, Take one tablet by mouth three times weekly on Tuesday, Tuesday, Tuesday., D isp: 30 tablet, Rfl: 11 valGANciclovir (VALCYTE) 450 mg tablet, Take one tablet by mouth twice week ly. Tue/, Disp: 60 tablet, Rfl: 5 VENTOLIN HFA 90 mcg/actuation aerosol inhaler, Inhale two puffs by mouth in to the lungs every 6 hours as needed for Wheezing or Shortness of Breath. Shake well before use., Disp: 54 g, Rfl: 0 Physical Exam: Vitals: 07/24/19 1025 07/24/19 1028 BP: 126/69 115/58 BP Source: Arm, Right Upper Arm, Right Upper Patient Position: Sitting Standing Pulse: 95 92 Temp: 36.7 C (98 F) TempSrc: Oral SpO2: 99% Weight: 94.3 kg (208 lb) Height: 167.6 cm (66") PainSc: Zero Body mass index is 33.57 kg/m. General: NAD, A+Ox4, calm and pleasant. Appears to be stated age. HENT: Unremarkable, no oral lesions Neck: Normal ROM, no LAD, no JVD Lungs: Bilat. CTA but diminished [in bases] CV: RRR, S1, S2 without carotid bruit or murmur, no edema Abdomen: Soft, N/D, N/T without hepatosplenomegaly Incision: Healing M/S: Normal ROM and strength Neuro: Nonfocal deficits without tremors Skin: No skin rash Psyc: Stable Laboratory studies: CMP: CMP Latest Ref Rng & Units 07/24/2019 07/19/2019 07/16/2019 07/12/2019 07/10/2019 NA 137 - 147 MMOL/L 138 141 139 140 138 K 3.5 - 5.1 MMOL/L 4.8 5.0 5.2 5.0 4.9 CL 98 - 110 MMOL/L 112(H) 117(H) 115(H) 116(H) 114(H) CO2 21 - 30 MMOL/L 20(L) 17(L) 15(L) 17(L) 18(L) GAP 3 - 12 6 12 14 12 6 BUN 7 - 25 MG/DL 26(H) 22 29(H) 30(H) 32(H) CR 0.4 - 1.24 MG/DL 2.61(H) 2.95(H) 2.97(H) 2.95(H) 2.91(H) GLUX 70 - 100 MG/DL 148(H) - - - 53(L) CA 8.5 - 10.6 MG/DL 8.8 9.0 8.9 8.8 8.9 TP 6.0 - 8.0 G/DL 6.1 - 6.1 6.0 6.0 ALB 3.5 - 5.0 G/DL 4.2 4.1 4.1 4.0 3.9 ALKP 25 - 110 U/L 98 119 95 101 98 ALT 7 - 56 U/L 16 13 14 11 11 TBILI 0.3 - 1.2 MG/DL 0.3 0.2 0.3 0.3 0.3 GFR >60 mL/min 26(L) 23(L) - 23(L) 23(L) GFRAA >60 mL/min 32(L) - - - 28(L) No results found for: LIPASE No results found for: TAO CMV DNA Quant PCR ([IU]/mL) Date Value 06/28/2019 CMV DNA NOT DETECTED 06/04/2019 CMV DNA NOT DETECTED IU/mL CMV Blood (no units) Date Value 06/28/2019 <50 IU/mL The test method detects [...] results found for: EBVDNAQT TACROLIMUS LEVEL: Tacrolimus Date Value 07/16/2019 12.3 07/05/2019 11.9 07/02/2019 11.8 06/28/2019 16.6 NG/ML (HH) 06/25/2019 21.0 (HH) 06/21/2019 13.0 06/18/2019 9.9 06/14/2019 13.1 NG/ML CBC with Diff: CBC with Diff Latest Ref Rng & Units 07/24/2019 07/19/2019 WBC 4.5 - 11.0 K/UL 2.4(L) 4.46(L) RBC 4.4 - 5.5 M/UL 2.77(L) 2.80(L) HGB 13.5 - 16.5 GM/DL 8.7(L) 8.9(L) HCT 40 - 50 % 26.3(L) 27.2(L) MCV 80 - 100 FL 95.1 97.1(H) MCH 26 - 34 PG 31.3 31.8(H) MCHC 32.0 - 36.0 G/DL 32.9 32.7 RDW 11 - 15 % 15.3(H) 14.0 PLT 150 - 400 K/UL 114(L) 149(L) MPV 7 - 11 FL 8.8 11.2(H) NEUT 41 - 77 % 79(H) 80.6(H) ANC 1.8 - 7.0 K/UL 1.90 3.59 LYMA 24 - 44 % 5(L) - ALYM 1.0 - 4.8 K/UL 0.10(L) 0.33(L) ANGELA 4 - 12 % 12 - AMONO 0 - 0.80 K/UL 0.30 0.4 EOSA 0 - 5 % 4 - AEOS 0 - 0.45 K/UL 0.10 0.1 BASA 0 - 2 % 0 - ABAS 0 - 0.20 K/UL 0.00 0.0 Hemoglobin A1C (%) Date Value 05/27/2019 7.9 (H) 04/19/2019 8.4 (H) 12/17/2016 11.4 (H) Urinalysis: Lab Results Component Value Date/Time UCOLOR YELLOW 07/24/2019 10:19 AM TURBID CLEAR 07/24/2019 10:19 AM USPGR 1.013 07/24/2019 10:19 AM UPH 5.0 07/24/2019 10:19 AM UPROTEIN 1+ (A) 07/24/2019 10:19 AM UAGLU 3+ (A) 07/24/2019 10:19 AM UKET NEG 07/24/2019 10:19 AM UBILE NEG 07/24/2019 10:19 AM UBLD 1+ (A) 07/24/2019 10:19 AM UROB NORMAL 07/24/2019 10:19 AM Protein/CR ratio (no units) Date Value 07/24/2019 0.8 07/16/2019 0.36 07/12/2019 0.36 07/10/2019 0.7 07/05/2019 0.42 Imaging: Results for orders placed during the [...] Carlos Muñoz M.D. on 06/28/2019 11:54 AM. US Right iliac fossa renal graft: Measures 9.5 x 3.7 cm. Mild ectasia of the collecting system without carlin hydronephrosis. A nephroureteral stent remains in place. There is a small, lentiform organized hematoma along the deep abdominal wall measuring 5.3 x 1.2 x 4 cm. No internal blood flow detected. Intraparenchymal flow: Intrarenal resistive indices are mildly elevated, ranging 0.78-0.82. Systolic acceleration is normal. Main Renal Artery: Patent, no visible stenosis. PSV is 149 cm/s. Main Renal Vein: Patent, no visible stenosis. External Iliac Artery: Patent, no visible stenosis. PSV above the anastomosis is 183 cm/s. External Iliac Vein: Patent, no visible stenosis. Urinary Bladder: Near completely decompressed (post void). Assessment and Plan: Mr. Pace is a 49 y.o. male, who presents with ESRD 2/2 type 1 diabet es s/p a renal transplant on 05/27/19 here for routine follow up of his transplan t. # DDRT Complicated by delayed graft function-likely from ATN kidney, DCD, size m ismatch. - Cr annie at 2.9,( LDH, hapto, BK, CMV was done last visit was -ve, Allosure 0. 2 DSA -ve) - today is 2.61 [improving] - Stent removed on 07/09/2019 - ISAURA 2/20 elevated RI, with stent in place, mild ectasia of collecting system, organized hematoma # Immunosuppression - On maintenance Triple drug therapy - Goal tacrolimus level of goal 10-15 ng/mL (MEIA) or 8-12 mcg/L (HPLC). - Currently taking Prograf 5/5 mg mg BID, pending trough - Will HOLD MPA given leukopenia and persistent cough, +H1N1 and Rhinovirus - Keep Prednisone 5 mg # ID Proph - CMV D+/R- to treat with Valcyte for 6 months post transplant - PJP Prophylax, to treat with Bactrim for 1 year post transplant - Completed Nystatin # Hypertension: BP is acceptable # DM/ Hyperglycemia - On Insulin pump - Following with Endo - C-Peptide <0.1 in 2017 # Anemia - Hb 8.7 Tsat 27%, ferritin 883, on iron tabs - Will cont Epoetin 31713 u weekly # Electrolytes: - Phos,mag, Na, K WNL # Incidental injury over left thumb - healed # General health maint. By PCP. Need to reschedule cataract surgery-for at least 3 months after transplant # persistent cough for the past month - Check RVP- + H1N1 and Rhinovirus - Cont Mucinex -Tessalon pearls, Albuterol, Zpak - Recent Flu, CXR unremarkable [07/23/19 at outside facility]. - Obtain Pulm records #H1N1, Rhinovirus + Hold MPA x 48hours D/W Dr. Palm and decision was to not restart Tamiflu, no admission at this irma e, given pt is stable. Pt denies fever or chills, pleurisy, myalgias, SOA, PND, or CRYSTAL. Pt advised to treat s/s and continue discussed treatment plan as well as holding MPA x48 hours. If s/s worsens pt to report to ER/hospital for treatment. RTC three weeks Labs twice a week Sincerely, Velia Moore APRN [phone] Cc: Malathi Owen Cc: Dania Barksdale Please contact the [facility] at [phone] for any transplant related questions or concerns that may arise . documented in this encounter Plan of Treatment Care Team Description Date Type Specialty Berta Harrison MD [address] [place], [place] [id number] Doroteo Enamorado MD [address] [place] [address] [phone] 10/02/2019 Hospital Radiology Encounter documented as of this encounter Goals Goal Patient Associated Recent Progress Patient-Stat Aut hor Goal Type Problems ed? Recover from illness Hospital No Rajani Gallego RN documented as of this encounter Results * RVP VIRAL PANEL PCR (07/24/2019 11:00 AM CDT) Specimen Source NASOPHARYNGEAL SWAB [facility] This panel does not detect SARS-CoV-2, the etiologic agent of COVID-19. Contact Infection Control for testing of patients with suspected SARS-CoV-2 infection. This assay uses analyte specific reagents and has not been cleared by the US Food and Drug Administration. The performance characterics were determined by the [facility]. Adenovirus NOT DETECTED DN-NOT DETECTED [facility] Coronavirus NOT DETECTED DN-NOT DETECTED [facility] 229E Coronavirus NOT DETECTED DN-NOT DETECTED [facility] HKU1 Coronavirus NOT DETECTED DN-NOT DETECTED [facility] NL63 Coronavirus NOT DETECTED DN-NOT DETECTED [facility] OC43 Human NOT DETECTED DN-NOT DETECTED [facility] Metapneumovirus Human DETECTED (A) DN-NOT DETECTED [facility] Rhinovirus/ENTE ROVIRUS Influenza A DETECTED (A) DN-NOT DETECTED [facility] H1N1 2009 Influenza A H1 NOT DETECTED DN-NOT DETECTED [facility] Influenza A H3 NOT DETECTED DN-NOT DETECTED [facility] Influenza B NOT DETECTED DN-NOT DETECTED [facility] Parainfluenza 1 NOT DETECTED DN-NOT DETECTED [facility] Parainfluenza 2 NOT DETECTED DN-NOT [...] Performing Organization Address City/State/Zipcode Ph one Number [facility] [address] [place] [address] documented in this encounter Visit Diagnoses Diagnosis Immunosuppression (HCC) Unspecified disorder of immune mechanis m Kidney transplanted Kidney replaced by transplant Kidney replaced by transplant GREGORY (obstructive sleep apnea) Obstructive sleep apnea (adult) (pediat katey) Cough Uncontrolled type 1 diabetes mellitus w ith hypoglycemia without coma (HCC) H1N1 influenza Influenza due to identified 2009 H1N1 i nfluenza virus with other respiratory manifestations Rhinovirus Rhinovirus infection in conditions clas sified elsewhere and of unspecified site documented in this encounter
--- OUTSIDE RECORDS SUMMARY | 2019-09-28 08:43 | XMS REPORT | Encounter Summary ---
Author Author [facility] Organization [facility] Address Unknown Phone Unavailable Care Team Providers Care Car Designer Name Role Phone Dania Barksdale MD PCP Jose Huff DO Unavailable Encounter Details Care Team Description Date Type Department Federico Phillips Kidney transplanted; Immunosuppression (HCC) 07/13/2019 Orders Only [facility] [address] [address] Social History Date Tobacco Use [...] Date Type Specialty Berta Harrison MD 4000 [place] [address] Doroteo Enamorado MD [address] [place] [address] 10/02/2019 Hospital Radiology Encounter documented as of this encounter Goals Goal Patient Associated Recent Progress Patient-Stat Aut hor Goal Type Problems ed? Recover from illness [facility] Rajani Ac RN documented as of this encounter Procedures Comments Procedure Name Priority Date/Time Associated Diag nosis URINALYSIS MICROSCOPIC Routine 07/12/2019 Kidney transplanted REFLEX TO CULTURE 7:54 AM AMF MECHANIC Immunosuppression ( HCC) URINALYSIS DIPSTICK Routine 07/12/2019 Kidney tra nsplanted REFLEX TO CULTURE 7:54 AM AMF MECHANIC Immunosuppression ( HCC) PROTEIN/CR RATIO,UR RAN Routine 07/12/2019 Kidney transplanted 7:54 AM AMF MECHANIC Immunosuppression (HCC) CBC AND DIFF Routine 07/12/2019 Kidney transpla nted 7:54 AM AMF MECHANIC Immunosuppression (HCC) URIC ACID Routine 07/12/2019 Kidney transpla nted 7:54 AM AMF MECHANIC Immunosuppression (HCC) PHOSPHORUS Routine 07/12/2019 Kidney transpla nted 7:54 AM AMF MECHANIC Immunosuppression (HCC) MAGNESIUM Routine 07/12/2019 Kidney transpla nted 7:54 AM AMF MECHANIC Immunosuppression (HCC) COMPREHENSIVE METABOLIC Routine 07/12/2019 Kidney transplanted PANEL 7:54 AM AMF MECHANIC Immunosuppression ( HCC) documented in this encounter Results * PROTEIN/CR RATIO,UR RAN (07/12/2019 7:54 AM AMF MECHANIC) Protein, Random 57 [facility] Creatinine, 160.9 [facility] Random Protein/CR 0.36 [facility] ratio Specimen Urine - Urine Narrative Performed At [facility] Outside Lab Verified by Federico Phillips on 07/13/2019. Performing Organization Address City/State/Zipcode Ph one Number [facility] * URINALYSIS MICROSCOPIC REFLEX TO CULTURE (07/12/2019 7:54 AM AMF MECHANIC) WBCs,UA 2-5 (A) [facility] RBCs,UA Negative [facility] Bacteria,UA Negative [facility] Squamous None (A) [facility] Epithelial Cells Specimen Urine Narrative Performed At [facility] Outside Lab Verified by Federico Jacqueline on 07/13/2019. Performing Organization Address [facility] one Number [facility] * URINALYSIS DIPSTICK REFLEX TO CULTURE (07/12/2019 7:54 AM AMF MECHANIC) Color,UA Yellow [facility] Turbidity,UA Clear [facility] Glucose,UA Trace (A) Negative [facility] Bilirubin,UA Negative [facility] Ketones,UA Negative [facility] Specific 1.025 [facility] [place]-Urine Blood,UA 1+ (A) Negative [facility] pH,UA 5.5 [facility] Protein,UA 1+ (A) Negative [facility] Urobilinogen,UA 0.2 (A) 0.2 - 1.0 [facility] E Nitrite,UA Negative [facility] Leukocytes,UA Negative [facility] Specimen Urine Narrative Performed At [facility] Outside Lab Verified by Federicomarta Ledbetterht on 07/13/2019. Performing Organization Address [facility] Ph one Number [facility] * URIC ACID (07/12/2019 7:54 AM AMF MECHANIC) Uric Acid 5.8 [facility] Specimen Blood Narrative Performed At [facility] Outside Lab Verified by Federico Jacqueline on 07/13/2019. Performing Organization Address [facility] Ph one Number [facility] * PHOSPHORUS (07/12/2019 7:54 AM AMF MECHANIC) Phosphorus 2.3 (L) 2.5 - 4.8 [facility] Specimen Blood Narrative Performed At [facility] Outside Lab Verified by Federico [place] on 07/13/2019. Performing Organization Address [facility] Ph one Number [facility] * MAGNESIUM (07/12/2019 7:54 AM AMF MECHANIC) Magnesium 1.7 [facility] Specimen Blood Narrative Performed At [facility] Outside Lab Verified by Federico Jacqueline on 07/13/2019. Performing Organization Address [facility] Ph one Number [facility] * COMPREHENSIVE METABOLIC PANEL (07/12/2019 7:54 AM AMF MECHANIC) Sodium 140 mmol/l [facility] Potassium 5.0 [facility] Chloride 116 (H) 95 - 114 [facility] CO2 17 (L) 22 - 33 [facility] Anion Gap 12 [facility] Glucose 153 (H) 70 - 110 mg/dL [facility] Blood Urea 30 (H) 5 - 25 mg/dL [facility] Nitrogen Creatinine 2.95 (H) 0.50 - 1.50 mg/dl [facility] RAMON Calcium 8.8 mg/dL [facility] Alk Phosphatase 101 U/L [facility] E AST (SGOT) 17 U/L [facility] ALT (SGPT) 11 U/L [facility] Total Bilirubin 0.3 mg/dL [facility] E Total Protein 6.0 g/dL [facility] Albumin 4.0 g/dL [facility] eGFR Non 23 (L) >59 mL/min/1.73 m2 [facility] Specimen Blood Narrative Performed At [facility] Outside Lab Verified by Federico Phillips on 07/13/2019. Performing Organization Address City/State/Zipcode Ph one Number [facility] * CBC AND DIFF (07/12/2019 7:54 AM AMF MECHANIC) White Blood 3.61 (L) 5.00 - 10.00 [facility] Cells RBC 2.77 (L) 4.20 - 5.40 [facility] Hemoglobin 8.8 (L) 14.0 - 17.0 [facility] Hematocrit 27.1 (L) 42.0 - 52.0 [facility] MCV 97.8 (H) 80.0 - 97.0 [facility] MCH 31.8 (H) 27.0 - 31.2 [facility] MCHC 32.5 [facility] Platelet Count 129 (L) 150 - 400 [facility] RDW 13.9 [facility] Absolute 2.95 [facility] Neutrophil Count Neutrophils 81.7 (H) 37.0 - 80.0 [facility] Absolute Lymph 0.26 (L) 0.60 - 3.40 [facility] Count Lymphocytes 7.2 (L) 10.0 - 50.0 [facility] Absolute 0.3 [facility] Monocyte Count Monocytes 8.0 [facility] Absolute 0.1 [facility] Eosinophil Count Eosinophil 2.5 [facility] Absolute 0.0 [facility] Basophil Count Basophil 0.60 [facility] MPV 10.5 (H) 7.4 - 10.0 [facility] Specimen Blood Narrative Performed At [facility] Outside Lab Verified by Federico Phillips on 07/13/2019. 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
--- OUTSIDE RECORDS SUMMARY | 2019-09-28 08:43 | XMS REPORT | Encounter Summary ---
Author Author [facility] Organization [facility] Address Unknown Phone Unavailable Care Team Providers Care Appeals Reviewer Veteran Name Role Phone Dania Barksdale MD PCP Jose Huff DO Unavailable Encounter Details Care Team Description Date Type Department Verónica Palm MD [address] [place] [id number] Research subject (Primary Dx) 07/23/2019 Orders Only The [facility] [address] [address] Social History Date Tobacco [...] Date Type Specialty Berta Harrison MD [address] [place] [address] Doroteo Enamorado MD [address] [place] [address] [phone] 10/02/2019 Hospital Radiology Encounter documented as of this encounter Goals Goal Patient Associated Recent Progress Patient-Stat Aut hor Goal Type Problems ed? Recover from illness Hospital Rajani Ac RN documented as of this encounter Results * RESEARCH BLOOD COLLECTION ONLY (07/24/2019 10:10 AM CDT) Research Blood COLLECTED REFERENCE LAB Collection Only Specimen Blood Performing Organization Address City/State/[place] Ph one Number REFERENCE LAB REFERENCE LAB See results for address. documented in this encounter Visit Diagnoses Diagnosis Research subject documented in this encounter
--- OUTSIDE RECORDS SUMMARY | 2019-09-28 08:43 | XMS REPORT | Encounter Summary ---
Author Author [facility] Organization [facility] Address Unknown Phone Unavailable Care Team Providers Care Forensic Examiner Name Role Phone Dania Barksdale MD PCP Jose Huff DO Unavailable Reason for Visit * Reason Comments Results Prograf 08/10 to 09/10 Encounter Details Care Team Description Date Type Department Lucia Trinidad RN Results (Prograf 08/10 to 09/10) 07/12/[address] Tele[address] [address] Social History Date Tobacco Use Types Packs/Day [...] Telephone Encounter - Lucia Trinidad RN - 07/12/2019 2:04 PM EMT PARAMEDIC Reviewed pt's labs and clinic note from 07/09. Creat improved to 2.91. Tacro level subtherapeutic at 7.0. Discussed with Dr. Idania Harrison and will increase Prograf fr om 08/10 to 5/. Called and notified pt who read back instruction correctly. Pt co mpleted labs today. Pt will repeat labs on Tuesday. Med list updated. PARAMEDIC documented in this encounter Plan of Treatment Care Team Description Date Type Specialty Berta Harrison MD [address] [place] [address] Doroteo Enamorado MD [address] [place] [address] 10/02/2019 Hospital Radiology Encounter documented as of this encounter Goals Goal Patient Associated Recent Progress Patient-Stat Aut hor Goal Type Problems ed? Recover from illness [facility] Rajani Ac, JAIME documented as of this encounter Visit Diagnoses Not on filedocumented in this encounter
--- OUTSIDE RECORDS SUMMARY | 2019-09-28 08:43 | XMS REPORT | Encounter Summary ---
Author Author [facility] Organization [facility] Address Unknown Phone Unavailable Care Team Providers Care Remelt Operator Name Role Phone Dania Barksdale MD PCP Jose Huff DO Unavailable Reason for Visit * Reason Comments Other Encounter Details Care Team Description Date Type Department Lucia Trinidad RN Other 07/17/2019 Telephone The [facility] [address] [address] Social History Date Tobacco Use Types Packs/Day [...] Telephone Encounter - Lucia Trinidad RN - 07/17/2019 1:47 PM CDT Returned pt's call and pt stated that his babysat kids over the weekend mika t were positive for Flu A. Discussed with Dr. Idania Harrison and will treat pt with pr ophylactic tamiflu dose for GFR 23. Will prescribe pt Tamiflu 30mg every other d ay. Also, advised pt's be treated with Tamiflu, to contact PCP. Pt verbaliz ed understanding. * Telephone Encounter - Lucia Trinidad RN - 07/17/2019 1:47 PM CDT ----- Message from Addie Vilchis sent at 07/17/2019 9:46 AM CDT ----- Pt. Called he has been exposed to the flu and need to know what to do? Please ca ll pt. [phone] documented in this encounter Plan of Treatment Care Team Description Date Type Specialty Berta Harrison MD [address] [place] [address] Doroteo Enamorado MD [address] [place] [address] 10/02/2019 Hospital Radiology Encounter documented as of this encounter Goals Goal Patient Associated Recent Progress Patient-Stat Aut hor Goal Type Problems ed? Recover from illness [facility] Rajani Ac RN documented as of this encounter Visit Diagnoses Not on filedocumented in this encounter
--- OUTSIDE RECORDS SUMMARY | 2019-09-28 08:43 | XMS REPORT | Encounter Summary ---
Author Author [facility] Organization [facility] Address Unknown Phone Unavailable Care Team Providers Care Civil Defense Director Name Role Phone Dania Barksdale MD PCP Jose Huff DO Unavailable Reason for Visit * Reason Comments Results Prograf 09/10 to 08/11 Encounter Details Care Team Description Date Type Department Lucia Trinidad RN Results (Prograf 09/10 to 08/11) 07/19/2019 Telephone The [address] [address] Social History Date Tobacco Use Types Packs/Day [...] Telephone Encounter - Lucia Trinidad RN - 07/19/2019 1:53 PM CDT Reviewed pt's labs from 07/15. Creat stable at 2.97. Tacro level supratherapeutic at 12.3. Discussed with Swetha Moore APRN, and will decrease Prograf from 5/5 to 4 /5. Called and discussed with pt who read back instructions correctly. Pt comple smitha lab work today, will not be reflective of Prograf dose change. Pt has not re ceived epo injection, email sent to Delmy, coordinator at [facility], to [place] torre when this will be completed. Pt will be seen in clinic on , 07/23, with labs prior. documented in this encounter Plan of Treatment Care Team Description Date Type Specialty Berta Harrison MD [address] [place] [address] Doroteo Enamorado MD [address] [place] [address] 10/02/2019 Hospital Radiology Encounter documented as of this encounter Goals Goal Patient Associated Recent Progress Patient-Stat Aut hor Goal Type Problems ed? Recover from illness [facility] Rajani Ac, RN documented as of this encounter Visit Diagnoses Not on filedocumented in this encounter
--- OUTSIDE RECORDS SUMMARY | 2019-09-28 08:43 | XMS REPORT | Encounter Summary ---
Author Author [facility] Organization [facility] Address Unknown Phone Unavailable Care Team Providers Care Metal Furniture Glazier Name Role Phone Dania Barksdale MD PCP Jose Huff DO Unavailable Encounter Details Care Team Description Date Type Department Berta Harrison MD [address] [place], [place] [id number] 07/24/2019 [facility] Social History Date Tobacco Use Types [...] by mouth every 4 hours as needed. 06/22/2019 ferrous sulfate (FEOSOL) Take one 180 [...] Medical Use to 1 each 0 Supply [facility] monitor blood pressure as directed. omeprazole DR(+) Take 40 mg by 0 (PRILOSEC) 40 mg capsule mouth daily before breakfast. pregabalin (LYRICA) 75 mg Take 75 mg by 0 capsule mouth three times daily. 06/12/2019 promethazine (PHENERGAN) Take one 30 tablet 0 25 mg tablet tablet by mouth every 6 hours as needed for Nausea or Vomiting. tamsulosin (FLOMAX) 0.4 Take 0.4 mg 0 [...] Shortness of Breath. Shake well before use. 06/01/2019 08/20/2019 aspirin EC 81 mg tablet Take one 90 tablet 1 tablet by mouth daily. Take with food. 07/24/2019 07/29/2019 azithromycin (ZITHROMAX) Take two 6 tablet 0 250 mg tablet tablets by mouth daily for 1 day, THEN one tablet daily for 4 days. 07/24/2019 09/20/2019 benzonatate (TESSALON Take one 20 capsule 1 PERLES) 100 mg capsule capsule by mouth every 8 hours as needed for Cough. 07/10/2019 08/01/2019 epoetin krista (PROCRIT) Inject 1 mL 1 mL 3 10,000 unit/mL injection under the skin every 7 days for 4 doses. 06/01/2019 08/20/2019 ergocalciferol (VITAMIN Take one 12 capsule 0 D-2) 1,250 mcg (50,000 capsule by unit) capsule mouth every 7 days. 07/12/2019 08/10/[address] Take three 180 tablet 11 (MYFORTIC) 180 mg TbEC tablets by tablet mouth twice daily. 07/17/2019 08/20/2019 oseltamivir (TAMIFLU) 30 Take one 5 capsule 0 mg capsule capsule by mouth every 48 hours. 07/24/2019 08/20/2019 predniSONE (DELTASONE) 5 Take one 30 tablet 11 mg tablet tablet by mouth daily with breakfast. 07/12/2019 07/30/2019 tacrolimus (PROGRAF) 1 mg Take five 300 capsule 11 capsule capsules by mouth twice daily. 07/25/2019 09/20/2019 trimethoprim/sulfamethoxa Take one 30 tablet 11 zole (BACTRIM) 80/400 mg tablet by tablet mouth three times weekly on Tuesday, Tuesday, Tuesday. 06/04/2019 09/20/2019 valGANciclovir (VALCYTE) Take one 60 tablet 5 450 mg tablet tablet by mouth twice weekly. Tue/ documented as of this encounter Plan of Treatment Care Team Description Date Type Specialty Berta Harrison MD [address] [place], [place] [id number] Doroteo Enamorado MD [address] [place] [address] [phone] 10/02/2019 Hospital Radiology Encounter documented as of this encounter Goals Goal Patient Associated Recent Progress Patient-Stat Aut hor Goal Type Problems ed? Recover from illness [facility] Rajani Ac RN documented as of this encounter Procedures Comments Procedure Name Priority Date/Time Associated Diag nosis HC RVP PANEL NASAL SINGLE Routine 07/24/2019 Kidn ey transplanted RVPN 11:00 AM CDT UA REFLEX CULTURE LABEL 07/24/2019 10:19 AM CDT URINALYSIS MICROSCOPIC Routine 07/24/2019 Kidney transplanted REFLEX TO CULTURE 10:19 AM CDT HC URINALYSIS UAR Routine 07/24/2019 Kidney trans planted 10:19 AM CDT HC TP/CR RATIO, RANDOM Routine 07/24/2019 Kidney transplanted 10:18 AM CDT RESEARCH BLOOD COLLECTION Routine 07/24/2019 Rese arch subject ONLY 10:10 AM CDT HC CMV DNA QN BY PCR Routine 07/24/2019 Kidney tr ansplanted 10:10 AM CDT HC BK VIRUS DNA, QUANT Routine 07/24/2019 Kidney transplanted 10:10 AM CDT HC CBC W/ AUTOMATED DIFF Routine 07/24/2019 Kidne y transplanted 10:10 AM CDT HC URIC ACID Routine 07/24/2019 Kidney transpla nted 10:10 AM CDT HC PHOSPHOROUS, SERUM Routine 07/24/2019 Kidney t ransplanted 10:10 AM CDT HC MAGNESIUM Routine 07/24/2019 Kidney transpla nted 10:10 AM CDT HC COMPREHENSIVE Routine 07/24/2019 Kidney transp lanted METABOLIC PANEL 10:10 AM CDT documented in this encounter Results * RVP VIRAL PANEL PCR (07/24/2019 11:00 AM CDT) Specimen Source NASOPHARYNGEAL SWAB [facility] This panel does not detect SARS-CoV-2, the etiologic agent of COVID-19. Contact Infection Control for testing of patients with suspected SARS-CoV-2 infection. This assay uses analyte specific reagents and has not been cleared by the US Food and Drug Administration. The performance characterics were determined by the [facility]. Adenovirus NOT DETECTED DN-NOT DETECTED [facility] Coronavirus NOT DETECTED DN-NOT DETECTED [facility] 229E Coronavirus NOT DETECTED DN-NOT DETECTED [facility] HKU1 Coronavirus NOT DETECTED DN-NOT DETECTED [facility] NL63 Coronavirus NOT DETECTED DN-NOT DETECTED [facility] OC43 Human NOT DETECTED DN-NOT DETECTED [facility] Metapneumovirus Human DETECTED (A) DN-NOT DETECTED [facility] Rhinovirus/ENTE ROVIRUS Influenza A DETECTED (A) DN-NOT DETECTED [facility] H1N1 2009 Influenza A H1 NOT DETECTED DN-NOT DETECTED MAIN LAB Influenza A H3 NOT DETECTED DN-NOT DETECTED MAIN LAB Influenza B NOT DETECTED DN-NOT DETECTED MAIN LAB Parainfluenza 1 NOT DETECTED DN-NOT DETECTED MAIN LAB Parainfluenza 2 NOT DETECTED DN-NOT DETECTED MAIN LAB Parainfluenza 3 NOT DETECTED DN-NOT DETECTED MAIN LAB Parainfluenza 4 NOT DETECTED DN-NOT DETECTED MAIN LAB RSV NOT DETECTED DN-NOT DETECTED MAIN LAB Bordetella NOT DETECTED DN-NOT DETECTED MAIN LAB Pertussis Chlamydophila NOT DETECTED DN-NOT DETECTED MAIN LAB Pneumoniae Mycoplasma NOT DETECTED DN-NOT DETECTED MAIN LAB Pneumoniae Specimen Nasopharyngeal Swab Performing Organization Address [facility] one Number MAIN LAB [address] [place] [address] * UA REFLEX CULTURE LABEL (07/24/2019 10:19 AM CDT) UA Reflex Criteria for reflex to culture TODD N LAB Culture are WBC>10, Positive Nitrit e, and/or >=+1 leukocytes. If quantity is not sufficient, an addendum will follow. Specimen Performing Organization Address [facility] Ph one Number [facility] [address] [place] [address] * URINALYSIS MICROSCOPIC REFLEX TO CULTURE (07/24/2019 10:19 AM CDT) WBCs,UA 0-2 0 - 2 /HPF [facility] RBCs,UA 0-2 0 - 3 /HPF MAIN LAB Comment,UA Criteria for reflex to culture TODD N LAB are WBC>10, Positive Nitrite, and/or >=+1 leukocytes. If quantity is not sufficient, an addendum will follow. MucousUA TRACE MAIN LAB Amorphous FEW [facility] Sedimate,UA Specimen Urine Performing Organization Address [facility] Ph one Number MAIN LAB [address] [place] [address] * URINALYSIS DIPSTICK REFLEX TO CULTURE (07/24/2019 10:19 AM CDT) Color,UA YELLOW MAIN LAB Turbidity,UA CLEAR CLEAR-CLEAR MAIN LAB Specific 1.013 1.003 - 1.035 [facility] Butler-Urine pH,UA 5.0 5.0 - 8.0 [facility] Protein,UA 1+ (A) NEG-NEG [facility] Glucose,UA 3+ (A) NEG-NEG [facility] Ketones,UA NEG NEG-NEG [facility] Bilirubin,UA NEG NEG-NEG [facility] Blood,UA 1+ (A) NEG-NEG [facility] Urobilinogen,UA NORMAL NORM-NORMAL [facility] Nitrite,UA NEG NEG-NEG [facility] Leukocytes,UA NEG NEG-NEG [facility] Urine Ascorbic NEG NEG-NEG [facility] Acid, UA Specimen Urine Performing Organization Address [facility] Ph one Number MAIN LAB [address] [place] [address] * PROTEIN/CR RATIO,UR RAN (07/24/2019 10:18 AM CDT) Protein, Random 98 MG/DL [facility] Creatinine, 126 MG/DL [facility] Random Protein/CR 0.8 [facility] ratio Specimen Urine - Urine Performing Organization Address [facility] one Number MAIN LAB [address] [place] [address] * CMV QUANT PCR-BLOOD (07/24/2019 10:10 AM CDT) IU/mL CMV Blood <50 IU/mL [facility] The test method detects and quantitates CMV DNA using the Young RealTime assay, and is approved by the FDA for monitoring hematopoietic stem cell transplant patients who are undergoing anti-CMV therapy. Please correlate results with the clinical status of the patient. LOG10 CMV <1.7 MAIN LAB CMV DNA Quant CMV DNA NOT DETECTED CMVND-CMV DNA NOT TODD N LAB PCR DETECTED [IU]/mL Specimen Blood Performing Organization Address [facility] Ph one Number CLAUDIA MAIN LAB [address] [place] [address] * BK VIRUS DNA, QUANT PLASMA (07/24/2019 10:10 AM CDT) BK Virus Plasma BK Virus Not Detected BKND-BK Virus Not [facility] Quant Detected BK Virus Plasma This assay uses analyte MAIN LAB Comment specific reagents and has n ot been cleared by the [place] Food and Drug Administration. The performance characteristics were determined by the [facility]. Specimen Blood Performing Organization Address [facility] one Number [facility] MA[facility] [address] [place] [address] * URIC ACID (07/24/2019 10:10 AM CDT) Uric Acid 6.0 4.0 - 8.0 MG/DL [facility] Specimen Blood Performing Organization Address [facility] Ph one Number [facility] [address] [place] [address] * PHOSPHORUS (07/24/2019 10:10 AM CDT) Phosphorus 2.5 2.0 - 4.5 MG/DL [facility] Specimen Blood Performing Organization Address [facility] one Number [facility] MA[facility] [address] [place] [phone] * MAGNESIUM (07/24/2019 10:10 AM CDT) Magnesium 1.6 1.6 - 2.6 mg/dL [facility] Specimen Blood Performing Organization Address [facility] one Number [facility] [address] [place] [phone] * COMPREHENSIVE METABOLIC PANEL (07/24/2019 10:10 AM CDT) Sodium 138 137 - 147 MMOL/L [facility] Potassium 4.8 3.5 - 5.1 MMOL/L [facility] Chloride 112 (H) 98 - 110 MMOL/L [facility] Glucose 148 (H) 70 - 100 MG/DL [facility] Blood Urea 26 (H) 7 - 25 MG/DL [facility] Nitrogen Creatinine 2.61 (H) 0.4 - 1.24 MG/DL [facility] Calcium 8.8 8.5 - 10.6 MG/DL [facility] Total Protein 6.1 6.0 - 8.0 G/DL [facility] Total Bilirubin 0.3 0.3 - 1.2 MG/DL [facility] Albumin 4.2 3.5 - 5.0 G/DL [facility] Alk Phosphatase 98 25 - 110 U/L [facility] AST (SGOT) 18 7 - 40 U/L [facility] CO2 20 (L) 21 - 30 MMOL/L [facility] ALT (SGPT) 16 7 - 56 U/L [facility] Anion Gap 6 3 - 12 [facility] eGFR Non 26 (L) >60 mL/min [facility] Comment: Lebanese The eGFR is not validated f or use in drug dosing adjustments. Continue to use estimated creatinine clearance per dosing reference text. Please contact the Clinical Pharmacist for questions. eGFR 32 (L) >60 mL/min [facility] Lebanese Comment: The eGFR is not validated for use in drug dosing adjustments. Continue to use estimated creatinine clearance per dosing reference text. Please contact the Clinical Pharmacist for questions. Specimen Blood Performing Organization Address City/[facility] Ph one Number [facility] [address] [place] [address] * CBC AND DIFF (07/24/2019 10:10 AM CDT) White Blood 2.4 (L) 4.5 - 11.0 K/UL [facility] Cells RBC 2.77 (L) 4.4 - 5.5 M/UL [facility] Hemoglobin 8.7 (L) 13.5 - 16.5 GM/DL [facility] Hematocrit 26.3 (L) 40 - 50 % [facility] MCV 95.1 80 - 100 FL [facility] MCH 31.3 26 - 34 PG [facility] MCHC 32.9 32.0 - 36.0 G/DL [facility] RDW 15.3 (H) 11 - 15 % [facility] Platelet Count 114 (L) 150 - 400 K/UL [facility] MPV 8.8 7 - 11 FL [facility] Neutrophils 79 (H) 41 - 77 % [facility] Lymphocytes 5 (L) 24 - 44 % [facility] Monocytes 12 4 - 12 % [facility] Eosinophils 4 0 - 5 % [facility] Basophils 0 0 - 2 % [facility] Absolute 1.90 1.8 - 7.0 K/UL [facility] Neutrophil Count Absolute Lymph 0.10 (L) 1.0 - 4.8 K/UL [facility] Count Absolute 0.30 0 - 0.80 K/UL [facility] Monocyte Count Absolute 0.10 0 - 0.45 K/UL [facility] Eosinophil Count Absolute 0.00 0 - 0.20 K/UL [facility] Basophil Count Specimen Blood Performing Organization Address City/[facility]/Zipcode Ph one Number [facility] [address] [place] [address] * RESEARCH BLOOD COLLECTION ONLY (07/24/2019 10:10 AM CDT) Research Blood COLLECTED REFERENCE LAB Collection Only Specimen Blood Performing Organization Address City/State/Zipcode Ph one Number REFERENCE LAB REFERENCE LAB See results for address. 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
--- OUTSIDE RECORDS SUMMARY | 2019-09-28 08:43 | XMS REPORT | Encounter Summary ---
Author Author [facility] Organization [facility] Address Unknown Phone Unavailable Care Team Providers Care Company Doctor Name Role Phone Dania Barksdale MD PCP Jose Huff DO Unavailable Encounter Details Care Team Description Date Type Department Federico Phillips Kidney transplanted; Immunosuppression (HCC) 07/18/2019 Orders Only [facility] [address] [address] Social History Date Tobacco Use [...] Date Type Specialty Berta Harrison MD [address] [place] [address] Doroteo Enamorado MD [address] [place] [address] 10/02/2019 Hospital Radiology Encounter documented as of this encounter Goals Goal Patient Associated Recent Progress Patient-Stat Aut hor Goal Type Problems ed? Recover from illness [facility] Rajani cA RN documented as of this encounter Procedures Comments Procedure Name Priority Date/Time Associated Diag nosis PROTEIN/CR RATIO,UR RAN Routine 07/16/2019 Kidney transplanted 7:55 AM CDT Immunosuppression (HCC) CBC AND DIFF Routine 07/16/2019 Kidney transpla nted 7:55 AM CDT Immunosuppression (HCC) URIC ACID Routine 07/16/2019 Kidney transpla nted 7:55 AM CDT Immunosuppression (HCC) PHOSPHORUS Routine 07/16/2019 Kidney transpla nted 7:55 AM CDT Immunosuppression (HCC) COMPREHENSIVE METABOLIC Routine 07/16/2019 Kidney transplanted PANEL 7:55 AM CDT Immunosuppression ( HCC) URINALYSIS MICROSCOPIC Routine 07/12/2019 Kidney transplanted REFLEX TO CULTURE 7:55 AM GRID TRIMMER Immunosuppression ( HCC) URINALYSIS DIPSTICK Routine 07/12/2019 Kidney tra nsplanted REFLEX TO CULTURE 7:55 AM GRID TRIMMER Immunosuppression ( HCC) documented in this encounter Results * URIC ACID (07/16/2019 7:55 AM CDT) Uric Acid 5.8 LABDE INTERFACE Specimen Blood Narrative Performed At LABDE INTERFACE Outside Lab Verified by Federico Phillips on 07/18/2019. Performing Organization Address [facility] Ph one Number LABDE INTERFACE * PHOSPHORUS (07/16/2019 7:55 AM CDT) Phosphorus 2.8 LABDE INTERFACE Specimen Blood Narrative Performed At LABDE INTERFACE Outside Lab Verified by Federicomarta Ledbetterht on 07/18/2019. Performing Organization Address City/[facility] Ph one Number LABDE INTERFACE * COMPREHENSIVE METABOLIC PANEL (07/16/2019 7:55 AM CDT) Sodium 139 mmol/L LABDE INTERFACE Potassium 5.2 mmol/L LABDE INTERFACE Chloride 115 (H) 95 - 114 LABDE INTERFACE CO2 15 (L) 22 - 33 LABDE INTERFACE Anion Gap 14 LABDE INTERFACE Glucose 93 mg/dL LABDE INTERFACE Blood Urea 29 (H) 5 - 25 mg/dL LABDE INTERFACE Nitrogen Creatinine 2.97 (H) 0.50 - 1.50 mg/dL LABDE INTERF RAMON Calcium 8.9 mg/dL LABDE INTERFACE Alk Phosphatase 95 U/L LABDE INTERFAC E AST (SGOT) 17 U/L LABDE INTERFACE ALT (SGPT) 14 U/L LABDE INTERFACE Total Bilirubin 0.3 mg/dL LABDE INTERFAC E Total Protein 6.1 g/dL LABDE INTERFACE Albumin 4.1 g/dL LABDE INTERFACE Specimen Blood Narrative Performed At LABDE INTERFACE Outside Lab Verified by Federico Phillips on 07/18/2019. Performing Organization Address City/State/Zipcode Ph one Number LABDE INTERFACE * CBC AND DIFF (07/16/2019 7:55 AM CDT) White Blood 4.28 (L) 5.00 - 10.00 LABDE INTERFACE Cells RBC 2.78 (L) 4.20 - 5.40 LABDE INTERFACE Hemoglobin 8.8 (L) 14.0 - 17.0 LABDE INTERFACE Hematocrit 27.2 (L) 42.0 - 52.0 LABDE INTERFACE MCV 97.8 (H) 80.0 - 97.0 LABDE INTERFACE MCH 31.7 (H) 27.0 - 31.2 LABDE INTERFACE MCHC 32.4 LABDE INTERFACE Platelet Count 137 (L) 150 - 400 LABDE INTERFACE RDW 14.1 LABDE INTERFACE Absolute 3.48 LABDE INTERFACE Neutrophil Count Neutrophils 81.4 (H) 37.0 - 80.0 LABDE INTERFACE Absolute Lymph 0.29 (L) 0.60 - 3.40 LABDE INTERFACE Count Lymphocytes 6.8 (L) 10.0 - 50.0 LABDE INTERFACE Absolute 0.4 LABDE INTERFACE Monocyte Count Monocytes 8.6 LABDE INTERFACE Absolute 0.1 LABDE INTERFACE Eosinophil Count Eosinophil 3.0 LABDE INTERFACE Absolute 0.0 LABDE INTERFACE Basophil Count Basophil 0.20 LABDE INTERFACE MPV 11.3 (H) 7.4 - 10.0 LABDE INTERFACE Specimen Blood Narrative Performed At LABDE INTERFACE Outside Lab Verified by Federico Phillips on 07/18/2019. Performing Organization Address City/State/[facility] Ph one Number LABDE INTERFACE * PROTEIN/CR RATIO,UR RAN (07/16/2019 7:55 AM CDT) Protein, Random 51 (H) 0 - 20 LABDE INTERFAC E Creatinine, 140.7 (H) 0.0 - 50.0 LABDE INTERFACE Random Protein/CR 0.36 LABDE INTERFACE ratio Specimen Urine - Urine Narrative Performed At LABDE INTERFACE Outside Lab Verified by Federico Phillips on 07/18/2019. Performing Organization Address City/[facility] Ph one Number LABDE INTERFACE * URINALYSIS MICROSCOPIC REFLEX TO CULTURE (07/12/2019 7:55 AM GRID TRIMMER) WBCs,UA 10-20 (A) LABDE INTERFACE RBCs,UA Rare (A) LABDE INTERFACE Bacteria,UA Trace (A) LABDE INTERFACE Squamous None (A) LABDE INTERFACE Epithelial Cells Specimen Urine Narrative Performed At LABDE INTERFACE Outside Lab Verified by Federico Phillips on 07/18/2019. Performing Organization Address [facility] Ph one Number LABDE INTERFACE * URINALYSIS DIPSTICK REFLEX TO CULTURE (07/12/2019 7:55 AM GRID TRIMMER) Color,UA Yellow LABDE INTERFACE Turbidity,UA Clear LABDE INTERFACE Glucose,UA Trace (A) Negative LABDE INTERFACE Bilirubin,UA Negative LABDE INTERFACE Ketones,UA Negative LABDE INTERFACE Specific 1.025 LABDE INTERFACE [place]-Urine Blood,UA 1+ (A) Negative LABDE INTERFACE pH,UA 5.5 LABDE INTERFACE Protein,UA 2+ (A) Negative LABDE INTERFACE Urobilinogen,UA 0.2 (A) 0.2 - 1.0 LABDE INTERFAC E Nitrite,UA Negative LABDE INTERFACE Leukocytes,UA Negative LABDE INTERFACE Specimen Urine Narrative Performed At LABDE INTERFACE Outside Lab Verified by Federico Phillips on 07/18/2019. 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
--- OUTSIDE RECORDS SUMMARY | 2019-09-28 08:43 | XMS REPORT | Encounter Summary ---
Author Author [facility] Organization [facility] Address Unknown Phone Unavailable Care Team Providers Care Faculty Head Name Role Phone Dania Barksdale MD PCP Jose Huff DO Unavailable Encounter Details Care Team Description Date Type Department 07/24/2019 Travel Social History Date Tobacco Use Types [...] Date Type Specialty Berta Harrison MD [address] [place] [address] [phone] Doroteo Enamorado MD 4000 [place], [place] [id number] 10/02/2019 Hospital Radiology Encounter documented as of this encounter Goals Goal Patient Associated Recent Progress Patient-Stat Aut hor Goal Type Problems ed? Recover from illness Hospital No Gallego, Rajani, RN documented as of this encounter Visit Diagnoses Not on filedocumented in this encounter
--- OUTSIDE RECORDS SUMMARY | 2019-09-28 08:43 | XMS REPORT | Encounter Summary ---
Author Author [facility] Organization [facility] Address Unknown Phone Unavailable Care Team Providers Care Program Director Scouting Name Role Phone Dania Barksdale MD PCP Jose Huff DO Unavailable Reason for Visit * Reason Comments Cough Encounter Details Care Team Description Date Type Department Carla Castañeda RN Cough 07/23/2019 Telephone [facility] [address] [address] Social History Date Tobacco Use Types Packs/Day [...] encounter Miscellaneous Notes * Telephone Encounter - Carla Castañeda RN - 07/23/2019 11:20 AM CDT Patient states he is coughing so hard he feels like he needs to vomit. He saw Steffen torres today and was told he did not have the flu. Patient given names of saf e medications he can take. documented in this encounter Plan of Treatment Care Team Description Date Type Specialty Berta Harrison MD [address] [place] [address] Doroteo Enamorado MD [address] [place] [address] 10/02/2019 Hospital Radiology Encounter documented as of this encounter Goals Goal Patient Associated Recent Progress Patient-Stat Aut hor Goal Type Problems ed? Recover from illness [facility] Rajani Ac RN documented as of this encounter Visit Diagnoses Not on filedocumented in this encounter
--- OUTSIDE RECORDS SUMMARY | 2019-09-28 08:44 | XMS REPORT | Encounter Summary ---
Author Author [facility] Organization [facility] Address Unknown Phone Unavailable Care Team Providers Care Display Card Writer Name Role Phone Dania Barksdale MD PCP Jose Huff DO Unavailable Encounter Details Care Team Description Date Type Department Kandy Gill MA Kidney transplanted; Immunosuppression (HCC) 07/03/2019 Orders Only [facility] [address] [address] Social History Date Tobacco Use [...] Status Date of Assessment Functional Status Response 06/28/2019 Does the patient have a hearing impairment: No 06/28/2019 Does the patient have a visual impairment: Yes 06/28/2019 Does the patient have impaired ambulation: Yes 06/28/2019 Does the patient have an activity of daily living No (ADL) impairment: 06/28/2019 Does the patient have an instrumental activity of No daily living (IADL) impairment: Date of Assessment Cognitive Status Response 06/28/2019 Does the patient have a cognitive impairment: No documented as of this encounter Plan of Treatment Care Team Description Date Type Specialty Berta Harrison MD [address] [place] [address] Doroteo Enamorado MD [address] [place] [address] 10/02/2019 Hospital Radiology Encounter documented as of this encounter Goals Goal Patient Associated Recent Progress Patient-Stat Aut hor Goal Type Problems ed? Recover from illness [facility] Rajani Ac RN documented as of this encounter Procedures Comments Procedure Name Priority Date/Time Associated Diag nosis URINALYSIS MICROSCOPIC Routine 07/02/2019 Kidney transplanted REFLEX TO CULTURE 8:54 AM TELEVISION MECHANIC Immunosuppression ( HCC) URINALYSIS DIPSTICK Routine 07/02/2019 Kidney tra nsplanted REFLEX TO CULTURE 8:54 AM TELEVISION MECHANIC Immunosuppression ( HCC) PROTEIN/CR RATIO,UR RAN Routine 07/02/2019 Kidney transplanted 8:54 AM TELEVISION MECHANIC Immunosuppression (HCC) CBC AND DIFF Routine 07/02/2019 Kidney transpla nted 8:54 AM TELEVISION MECHANIC Immunosuppression (HCC) URIC ACID Routine 07/02/2019 Kidney transpla nted 8:54 AM TELEVISION MECHANIC Immunosuppression (HCC) PHOSPHORUS Routine 07/02/2019 Kidney transpla nted 8:54 AM TELEVISION MECHANIC Immunosuppression (HCC) MAGNESIUM Routine 07/02/2019 Kidney transpla nted 8:54 AM TELEVISION MECHANIC Immunosuppression (HCC) COMPREHENSIVE METABOLIC Routine 07/02/2019 Kidney transplanted PANEL 8:54 AM TELEVISION MECHANIC Immunosuppression ( HCC) documented in this encounter Results * URINALYSIS MICROSCOPIC REFLEX TO CULTURE (07/02/2019 8:54 AM TELEVISION MECHANIC) WBCs,UA 2-5 (A) LABDE INTERFACE RBCs,UA 5-10 (A) LABDE INTERFACE Bacteria,UA Trace (A) LABDE INTERFACE Squamous 0-5 (A) /HPF LABDE INTERFACE Epithelial Cells Specimen Urine Narrative Performed At LABDE INTERFACE Outside Lab Verified by Kandy crowe 07/03/2019. Performing Organization Address City/State/Zipcode Ph one Number LABDE INTERFACE * URINALYSIS DIPSTICK REFLEX TO CULTURE (07/02/2019 8:54 AM TELEVISION MECHANIC) Color,UA Yellow LABDE INTERFACE Turbidity,UA Hazy (A) Clear LABDE INTERFACE Glucose,UA Trace (A) Negative LABDE INTERFACE Bilirubin,UA Negative Negative LABDE INTERFACE Ketones,UA Negative Negative LABDE INTERFACE Specific 1.025 1.000 - 1.030 LABDE INTERFACE [place]-Urine Blood,UA 2+ (A) Negative LABDE INTERFACE pH,UA 5.0 LABDE INTERFACE Protein,UA 2+ (A) Negative LABDE INTERFACE Urobilinogen,UA 0.2 LABDE INTERFACE Nitrite,UA Negative LABDE INTERFACE Leukocytes,UA Trace (A) Negative LABDE INTERFACE Specimen Urine Narrative Performed At LABDE INTERFACE Outside Lab Verified by Kandy crowe 07/03/2019. Performing Organization Address [facility] Ph one Number LABDE INTERFACE * URIC ACID (07/02/2019 8:54 AM TELEVISION MECHANIC) Uric Acid 6.8 2.6 - 7.2 mg/dL LABDE INTERFAC E Specimen Blood Narrative Performed At LABDE INTERFACE Outside Lab Verified by Kandy crowe 07/03/2019. Performing Organization Address [facility] Ph one Number LABDE INTERFACE * PHOSPHORUS (07/02/2019 8:54 AM TELEVISION MECHANIC) Phosphorus 3.5 mg/dL LABDE INTERFACE Specimen Blood Narrative Performed At LABDE INTERFACE Outside Lab Verified by Kandy crowe 07/03/2019. Performing Organization Address [facility] Ph one Number LABDE INTERFACE * MAGNESIUM (07/02/2019 8:54 AM TELEVISION MECHANIC) Magnesium 1.8 1.6 - 2.6 mg/dL LABDE INTERFAC E Specimen Blood Narrative Performed At LABDE INTERFACE Outside Lab Verified by Kandy crowe 07/03/2019. Performing Organization Address [facility] Ph one Number LABDE INTERFACE * COMPREHENSIVE METABOLIC PANEL (07/02/2019 8:54 AM TELEVISION MECHANIC) Sodium 139 mmol/L LABDE INTERFACE Potassium 4.8 mmol/L LABDE INTERFACE Chloride 114 mmol/L LABDE INTERFACE CO2 15 (L) 22 - 33 LABDE INTERFACE Anion Gap 15 (H) 6 - 14 LABDE INTERFACE Glucose 108 mg/dL LABDE INTERFACE Blood Urea 31 (H) 5 - 25 mg/dL LABDE INTERFACE Nitrogen Creatinine 3.77 (H) 0.50 - 1.50 mg/dl LABDE INTERF RAMON Calcium 8.9 mg/dL LABDE INTERFACE Alk Phosphatase 114 U/L LABDE INTERFAC E AST (SGOT) 14 U/L LABDE INTERFACE ALT (SGPT) 15 LABDE INTERFACE Total Bilirubin 0.2 mg/dL LABDE INTERFAC E Total Protein 6.0 g/dL LABDE INTERFACE Albumin 3.9 g/dL LABDE INTERFACE eGFR Non 17 (L) >59 mL/min/1.73m2 LABDE INTERF RAMON Specimen Blood Narrative Performed At LABDE INTERFACE Outside Lab Verified by Kandy crowe 07/03/2019. Performing Organization Address City/State/Zipcode Ph one Number LABDE INTERFACE * CBC AND DIFF (07/02/2019 8:54 AM TELEVISION MECHANIC) White Blood 3.84 (L) 5.00 - 10.00 K/uL LABDE INTERF RAMON Cells RBC 2.73 (L) 4.20 - 5.40 LABDE INTERFACE Hemoglobin 8.7 (L) 14.0 - 17.0 LABDE INTERFACE Hematocrit 26.5 (L) 42.0 - 52.0 % LABDE INTERFACE MCV 97.1 (H) 80.0 - 97.0 LABDE INTERFACE MCH 31.9 (H) 27.0 - 31.2 LABDE INTERFACE MCHC 32.8 g/dL LABDE INTERFACE Platelet Count 180 K/uL LABDE INTERFACE RDW 13.4 % LABDE INTERFACE Absolute 3.16 K/uL LABDE INTERFACE Neutrophil Count Neutrophils 82.3 (H) 37.0 - 80.0 % LABDE INTERFACE Absolute Lymph 0.25 (L) 0.60 - 3.40 LABDE INTERFACE Count Lymphocytes 6.5 (L) 10.0 - 50.0 LABDE INTERFACE Absolute 0.4 K/uL LABDE INTERFACE Monocyte Count Monocytes 9.1 % LABDE INTERFACE Absolute 0.1 K/uL LABDE INTERFACE Eosinophil Count Eosinophil 1.6 % LABDE INTERFACE Absolute 0.0 K/uL LABDE INTERFACE Basophil Count Basophil 0.50 % LABDE INTERFACE MPV 11.2 (H) 7.4 - 10.0 LABDE INTERFACE Specimen Blood Narrative Performed At LABDE INTERFACE Outside Lab Verified by Kandy crowe 07/03/2019. Performing Organization Address [facility] LAB[facility] * PROTEIN/CR RATIO,UR RAN (07/02/2019 8:54 AM TELEVISION MECHANIC) Protein, Random 94 (H) 0 - 20 LABDE INTERFAC E Creatinine, 193.8 (H) 0.0 - 50.0 mg/dl LABDE INTERFA CE Random Protein/CR 0.48 LABDE INTERFACE ratio Specimen Urine - Urine Narrative Performed At LABDE INTERFACE Outside Lab Verified by Kandy crowe 07/03/2019. Performing Organization Address [facility]State[facility] Number LABDE INTERFACE 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
--- OUTSIDE RECORDS SUMMARY | 2019-09-28 08:44 | XMS REPORT | Encounter Summary ---
Author Author [facility] Organization [facility] Address Unknown Phone Unavailable Care Team Providers Care Staffing Analyst Name Role Phone Dania Barksdale MD PCP Jose Huff DO Unavailable Reason for Visit * Reason Comments Kidney Transplant Encounter Details Care Team Description Date Type Department Tyrone Castillo MD [address] [facility] [address] [place] [address] Kidney replaced by transplant (Primary D x); S/P kidney transplant 07/09/2019 Procedure visit [facility] [address] [place] [address] Social History Date Tobacco Use Types Packs/Day [...] Signs Reading Time Taken Comments Vital Sign 122/72 07/09/2019 1:00 PM ENROLLED NURSE Blood Pressure 70 07/09/2019 1:00 PM ENROLLED NURSE Pulse - - Temperature - - Respiratory Rate - - Oxygen Saturation - - Inhaled Oxygen Concentration 95.3 kg (210 lb) 07/09/2019 1:00 PM ENROLLED NURSE Weight 167.6 cm (5' 5.98") 07/09/2019 1:00 PM ENROLLED NURSE Height 33.91 07/09/2019 1:00 PM ENROLLED NURSE Body Mass Index documented in this encounter Functional Status Date of Assessment Functional Status Response 07/09/2019 Does the patient have a hearing impairment: No 07/09/2019 Does the patient have a visual impairment: No 07/09/2019 Does the patient have impaired ambulation: Yes 07/09/2019 Does the patient have an activity of daily living No (ADL) impairment: 07/09/2019 Does the patient have an instrumental activity of No daily living (IADL) impairment: Date of Assessment Cognitive Status Response 07/09/2019 Does the patient have a cognitive impairment: No documented as of this encounter Progress Notes * Cherise Mccall RN - 07/09/2019 1:00 PM ENROLLED NURSE Time out performed with patient prior to procedure. Patient to take additional dose of Bactrim tonight for antibiotics coverage. LLED NURSE documented in this encounter Procedure Notes * Tyrone Castillo MD - 07/09/2019 1:00 PM ENROLLED NURSE Associated Order(s): CYSTO W/STENT REMOVAL Procedure(s): [place] CYSTO W/SIMPLE REMOVAL STONE & STENT Pre-Procedure Diagnose(s): Kidney replaced by transplant Post-Procedure Diagnose(s): S/P kidney transplant Encounter Date: 07/09/2019 Procedure: Flexible Cystoscopy & Stent Removal Provider: Tyrone Castillo MD, FACS Complications: None Anesthesia: Intraurethral 2% Lidocaine Gel Indication for procedure: 49 y.o. male w/ ESRD s/p kidney transplant on 0. Presents to clinic today for transplant kidney stent removal. Procedure dis cussed w/ pt, including risks & complications. Time out performed. Reviewed chart & Op Note. After informed consent was obtained, he was prepped & draped in the usual fashion. 2% Lidocaine administered per urethra. After adequate time for anesthetic effect, the flexible cystoscope was gently advanced into the urethra under direct visualization. Urethra: (-)lesions/ strictures. Upon entering the bladder, the stent was visualized from the (right) lateral wall anastomosis site. The stent was grasped using flexible forceps. The stent & scope were withdrawn simultaneously. He tolerated the procedure well & left the room in a pleasant disposition. A/P: 1. s/p Renal Transplant - stent removed today w/o difficulty - continue abx, as directed by Transplant team. - f/u w/ Nephrology & Renal Transplant Team, per their recommendations - f/u w/ Urology prn Orders Placed This Encounter CYSTO W/STENT REMOVAL Tyrone Castillo MD, FACS Urology LLED NURSE documented in this encounter Plan of Treatment Care Team Description Date Type Specialty Berta Harrison MD [address] [place], [place] [id number] Doroteo Enamorado MD [address] [place] [address] 10/02/2019 Hospital Radiology Encounter documented as of this encounter Goals Goal Patient Associated Recent Progress Patient-Stat Aut hor Goal Type Problems ed? Recover from illness [facility] Rajani Ac RN documented as of this encounter Procedures Comments Procedure Name Priority Date/Time Associated Diag nosis [place] CYSTO W/SIMPLE REMOVAL Routine 07/09/2019 Kidn ey replaced by STONE & STENT 1:00 PM ENROLLED NURSE transplant documented in this encounter Results * CYSTO W/STENT REMOVAL (07/09/2019 1:00 PM ENROLLED NURSE) Narrative Performed At Tyrone Castillo MD 07/11/2019 [...] Castillo MD, FACS Urology Performing Organization Address City/State/Zipcode Ph one Number [facility] CL[facility] documented in this encounter Visit Diagnoses Diagnosis Kidney replaced by transplant S/P kidney transplant Kidney replaced by transplant documented in this encounter
--- OUTSIDE RECORDS SUMMARY | 2019-09-28 08:44 | XMS REPORT | Encounter Summary ---
Author Author [facility] Organization [facility] Address Unknown Phone Unavailable Care Team Providers Care Promotional Marketing Analyst Name Role Phone Dania Barksdale MD PCP Jose Huff DO Unavailable Encounter Details Care Team Description Date Type Department Federico Phillips Kidney transplanted; Immunosuppression (HCC) 07/05/2019 Orders Only The [facility] [address] [address] Social History Date Tobacco [...] Date Type Specialty Berta Harrison MD 4000 [place] [address] Doroteo Enamorado MD 4000 [place] [address] 10/02/2019 Hospital Radiology Encounter documented as of this encounter Goals Goal Patient Associated Recent Progress Patient-Stat Aut hor Goal Type Problems ed? Recover from illness [facility] Rajani Ac RN documented as of this encounter Procedures Comments Procedure Name Priority Date/Time Associated Diag nosis URINALYSIS MICROSCOPIC Routine 07/05/2019 Kidney transplanted REFLEX TO CULTURE 7:46 AM TRAPEZE PERFORMER Immunosuppression ( HCC) URINALYSIS DIPSTICK Routine 07/05/2019 Kidney tra nsplanted REFLEX TO CULTURE 7:46 AM TRAPEZE PERFORMER Immunosuppression ( HCC) PROTEIN/CR RATIO,UR RAN Routine 07/05/2019 Kidney transplanted 7:46 AM TRAPEZE PERFORMER Immunosuppression (HCC) CBC AND DIFF Routine 07/05/2019 Kidney transpla nted 7:46 AM TRAPEZE PERFORMER Immunosuppression (HCC) URIC ACID Routine 07/05/2019 Kidney transpla nted 7:46 AM TRAPEZE PERFORMER Immunosuppression (HCC) PHOSPHORUS Routine 07/05/2019 Kidney transpla nted 7:46 AM TRAPEZE PERFORMER Immunosuppression (HCC) COMPREHENSIVE METABOLIC Routine 07/05/2019 Kidney transplanted PANEL 7:46 AM TRAPEZE PERFORMER Immunosuppression ( HCC) TACROLIMUS LEVEL(FK506) Routine 07/02/2019 Kidney transplanted 8:54 AM TRAPEZE PERFORMER Immunosuppression (HCC) MAGNESIUM Routine 07/02/2019 Kidney transpla nted 7:46 AM TRAPEZE PERFORMER Immunosuppression (HCC) documented in this encounter Results * URINALYSIS DIPSTICK REFLEX TO CULTURE (07/05/2019 7:46 AM TRAPEZE PERFORMER) Color,UA Yellow LABDE INTERFACE Turbidity,UA Slightly Cloudy (A) Clear LABDE INTE RFACE Glucose,UA Negative [facility]DE INTERFACE Bilirubin,UA Negative LABDE INTERFACE Ketones,UA Negative [facility] INTERFACE Specific >=1.030 (A) 1.00 - 1.030 LABDE INTERFACE Thayer-Urine Blood,UA 2+ (A) Negative LABDE INTERFACE pH,UA 5.0 LABDE INTERFACE Protein,UA 2+ (A) Negative LABDE INTERFACE Urobilinogen,UA 0.2 (A) 0.2 - 1.0 LABDE INTERFAC E Nitrite,UA Negative LAB[facility] INTERFACE Leukocytes,UA Trace (A) Negative LAB[facility] INTERFACE Specimen Urine Narrative Performed At LABDE INTERFACE Outside Lab Verified by Federicomarta Phillips on 07/05/2019. Performing Organization Address [facility] Ph one Number LABDE INTERFACE * URIC ACID (07/05/2019 7:46 AM TRAPEZE PERFORMER) [facility] Uric Acid 6.8 LABDE INTERFACE Specimen Blood Narrative Performed At LABDE INTERFACE Outside Lab Verified by Federicomarta Phillips on 07/05/2019. Performing Organization Address [facility] Ph one Number LABDE INTERFACE * PHOSPHORUS (07/05/2019 7:46 AM TRAPEZE PERFORMER) [facility] Phosphorus 2.9 LABDE INTERFACE Specimen Blood Narrative Performed At LABDE INTERFACE Outside Lab Verified by Federicomarta Phillips on 07/05/2019. Performing Organization Address [facility] one Number LABDE INTERFACE * COMPREHENSIVE METABOLIC PANEL (07/05/2019 7:46 AM TRAPEZE PERFORMER) [facility] Sodium 138 mmol/l LABDE INTERFACE Potassium 4.9 mmol/L LAB[facility] INTERFACE Chloride 114 mmol/L LAB[facility] INTERFACE CO2 17 (L) 22 - 33 [facility] INTERFACE Anion Gap 12 [facility] INTERFACE Glucose 78 [facility] INTERFACE Blood Urea 30 (H) 5 - 25 [facility] INTERFACE Nitrogen Creatinine 3.77 (H) 0.50 - 1.50 mg/dl LABDE INTERF RAMON Calcium 8.8 LABDE INTERFACE Alk Phosphatase 110 [facility] INTERFACE AST (SGOT) 14 LAB[facility] INTERFACE ALT (SGPT) 14 LAB[facility] INTERFACE Total Bilirubin 0.2 mg/dl LABDE INTERFAC E Total Protein 5.9 (L) 6.0 - 8.3 LAB[facility] INTERFACE Albumin 3.9 LAB[facility] INTERFACE eGFR Non 17 (L) >59 LABDE INTERFACE Specimen Blood Narrative Performed At LABDE INTERFACE Outside Lab Verified by Federicomarta Phillips on 07/05/2019. Performing Organization Address [facility] Ph one Number LABDE INTERFACE * CBC AND DIFF (07/05/2019 7:46 AM TRAPEZE PERFORMER) White Blood 3.76 (L) 5.00 - 10.00 LABDE INTERFACE Cells RBC 2.71 (L) 4.20 - 5.40 LABDE INTERFACE Hemoglobin 8.6 (L) 14.0 - 17.0 LABDE INTERFACE Hematocrit 26.4 (L) 42.0 - 52.0 LABDE INTERFACE MCV 97.4 (H) 80.0 - 97.0 LABDE INTERFACE MCH 31.7 (H) 27.0 - 31.2 LABDE INTERFACE MCHC 32.6 LABDE INTERFACE Platelet Count 155 LABDE INTERFACE RDW 13.7 LABDE INTERFACE Absolute 3.14 LABDE INTERFACE Neutrophil Count Neutrophils 83.5 (H) 37.0 - 80.0 LABDE INTERFACE Absolute Lymph 0.23 (L) 0.60 - 3.40 LABDE INTERFACE Count Lymphocytes 6.1 (L) 10.0 - 50.0 LABDE INTERFACE Absolute 0.3 LABDE INTERFACE Monocyte Count Monocytes 7.2 LABDE INTERFACE Absolute 0.1 LABDE INTERFACE Eosinophil Count Eosinophil 2.7 LABDE INTERFACE Absolute 0.0 LABDE INTERFACE Basophil Count Basophil 0.50 LABDE INTERFACE MPV 11.1 (H) 7.4 - 10.0 LABDE INTERFACE Specimen Blood Narrative Performed At LABDE INTERFACE Outside Lab Verified by Federicomarta Ledbetterht on 07/05/2019. Performing Organization Address [facility] Ph one Number LABDE INTERFACE * PROTEIN/CR RATIO,UR RAN (07/05/2019 7:46 AM TRAPEZE PERFORMER) Protein, Random 86 (H) 0 - 20 LABDE INTERFAC E Creatinine, 206.5 (H) 0.0 - 50.0 LABDE INTERFACE Random Protein/CR 0.42 LABDE INTERFACE ratio Specimen Urine - Urine Narrative Performed At LABDE INTERFACE Outside Lab Verified by [employer] on 07/05/2019. Performing Organization Address [facility] one Number LABDE INTERFACE * URINALYSIS MICROSCOPIC REFLEX TO CULTURE (07/05/2019 7:46 AM TRAPEZE PERFORMER) WBCs,UA 10-20 (A) LABDE INTERFACE RBCs,UA 10-20 (A) LABDE INTERFACE Bacteria,UA Trace (A) LABDE INTERFACE Squamous 0-5 (A) LABDE INTERFACE Epithelial Cells Specimen Urine Narrative Performed At LABDE INTERFACE Outside Lab Verified by Federico Phillips on 07/05/2019. Performing Organization Address City/State/[facility] Ph one Number LABDE INTERFACE * TACROLIMUS LEVEL(FK506) (07/02/2019 8:54 AM TRAPEZE PERFORMER) Tacrolimus 11.8 LABDE INTERFACE Specimen Blood Narrative Performed At LABDE INTERFACE Outside Lab Verified by Federicomarta Phillips on 07/05/2019. Performing Organization Address City/State/[facility] Ph one Number LABDE INTERFACE * MAGNESIUM (07/02/2019 7:46 AM TRAPEZE PERFORMER) Magnesium 1.8 LABDE INTERFACE Specimen Blood Narrative Performed At LABDE INTERFACE Outside Lab Verified by Federico Phillips on 07/05/2019. Performing Organization Address City/[facility] Ph one Number LABDE INTERFACE 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
--- OUTSIDE RECORDS SUMMARY | 2019-09-28 08:44 | XMS REPORT | Encounter Summary ---
Author Author [facility] Organization [facility] Address Unknown Phone Unavailable Care Team Providers Care Belt Loop Maker Name Role Phone Dania Barksdale MD PCP Jose Huff DO Unavailable Encounter Details Care Team Description Date Type Department Berta Harrison MD [address] [place] [address] 06/28/2019 [facility] [address] [address] Social History Date Tobacco Use [...] Medical Use to 1 each 0 [facility] monitor blood pressure as directed. omeprazole DR(+) [...] tablet by mouth at bedtime daily. 07/24/2019 albuterol sulfate (PROAIR Inhale 2 0 HFA) 90 mcg/actuation puffs by aerosol inhaler mouth into the lungs every 6 hours as needed for Wheezing or Shortness of Breath. Shake well before use. 06/01/2019 08/20/2019 aspirin EC 81 mg tablet Take one 90 tablet 1 tablet by mouth daily. Take with food. 06/01/2019 08/20/2019 ergocalciferol (VITAMIN Take one 12 capsule 0 D-2) 1,250 mcg (50,000 capsule by unit) capsule mouth every 7 days. 05/28/2019 07/12/[address] Take four 240 tablet 11 (MYFORTIC) 180 mg TbEC tablets by tablet mouth twice daily. 06/05/2019 07/03/2019 prednisone (DELTASONE) 5 Take one 30 tablet 11 mg tablet tablet by mouth daily with breakfast. 06/01/2019 07/10/2019 tacrolimus (PROGRAF) 1 mg Take five 480 capsule 11 capsule capsules by mouth twice daily. 06/01/2019 07/24/2019 trimethoprim/sulfamethoxa Take one 30 tablet 11 zole (BACTRIM) 80/400 mg tablet by tablet mouth three times weekly. MWF 06/04/2019 09/20/2019 valGANciclovir (VALCYTE) Take one 60 tablet 5 450 mg tablet tablet by mouth twice weekly. Mon/thurs documented as of this encounter Plan of Treatment Care Team Description Date Type Specialty Berta Harrison MD [address] [place] [address] Doroteo Enamorado MD [address] [place] [address] 10/02/2019 Hospital Radiology Encounter documented as of this encounter Goals Goal Patient Associated Recent Progress Patient-Stat Aut hor Goal Type Problems ed? Recover from illness [facility] Rajani Gallego RN documented as of this encounter Procedures Comments Procedure Name Priority Date/Time Associated Diag nosis CHEST 2 VIEWS Routine 06/28/2019 Kidney replaced by 11:41 AM BURLAP SPREADER transplant documented in this encounter Results * CHEST 2 VIEWS (06/28/2019 11:41 AM BURLAP SPREADER) Specimen Impressions Performed At 1. Resolution of interstitial edema. [facility] RESULTS 2. Left basal linear opacities likely s carring. Finalized by Sergio Muñoz M.D. o n 06/28/2019 11:56 AM. Dictated by Sergio Muñoz M.D. on 06/28/2019 1 1:54 AM. Narrative Performed At CHEST 2 VIEWS [facility] RESULTS INDICATION: cough. COMPARISON STUDY: June 05, 2019. FINDINGS: Lungs: The lung volume is normal. Resol ution of interstitial edema. Left basal linear opacities. Pleura: No pleural effusion or pneumoth orax. Heart and Mediastinum: Heart size is no rmal. Aorta is calcified, indicating atherosclerosis. Skeletal Structures and Soft Tissues: T horacic spine degeneration. Procedure Note Interface, Radiant Results - 06/28/2019 11:59 AM BURLAP SPREADER CHEST 2 VIEWS INDICATION: cough. COMPARISON STUDY: June 05, 2019. FINDINGS: Lungs: The lung volume is normal. Resolution of interstitial edema. Left basal linear opacities. Pleura: No pleural effusion or pneumothorax. Heart and Mediastinum: Heart size is normal. Aorta is calcified, indicating atherosclerosis. Skeletal Structures and Soft Tissues: Thoracic spine degeneration. IMPRESSION 1. Resolution of interstitial edema. 2. Left basal linear opacities likely sc arring. Finalized by Sergio Muñoz M.D. on 06/28/2019 11:56 AM. Dictated by Sergio Muñoz M.D. on 06/28/2019 11:54 AM. Performing Organization Address City/State/Zipcode Ph one Number [facility] RESULTS documented in this encounter Visit Diagnoses Diagnosis Kidney replaced by transplant documented in this encounter
--- OUTSIDE RECORDS SUMMARY | 2019-09-28 08:44 | XMS REPORT | Encounter Summary ---
Author Author [facility] Organization [facility] Address Unknown Phone Unavailable Care Team Providers Care Switch Repairer Name Role Phone Dania Barksdale MD PCP Jose Huff DO Unavailable Encounter Details Care Team Description Date Type Department Federico Phillips Kidney transplanted; Immunosuppression (HCC) 07/09/2019 Orders Only The [facility] [address] [address] Social History Date Tobacco Use [...] Date Type Specialty Berta Harrison MD 4000 [place] [address] Doroteo Enamorado MD [address] [place] [address] 10/02/2019 Hospital Radiology Encounter documented as of this encounter Goals Goal Patient Associated Recent Progress Patient-Stat Aut hor Goal Type Problems ed? Recover from illness Hospital No Rajani Gallego RN documented as of this encounter Procedures Comments Procedure Name Priority Date/Time Associated Diag nosis TACROLIMUS LEVEL(FK506) Routine 07/05/2019 Kidney transplanted 7:46 AM AUTOMATIC THREAD WINDER Immunosuppression (HCC) documented in this encounter Results * TACROLIMUS LEVEL(FK506) (07/05/2019 7:46 AM AUTOMATIC THREAD WINDER) Tacrolimus 11.9 LABDE INTERFACE Specimen Blood Narrative Performed At LABDE INTERFACE Outside Lab Verified by Federico Phillips on 07/09/2019. 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
--- OUTSIDE RECORDS SUMMARY | 2019-09-28 08:44 | XMS REPORT | Encounter Summary ---
Author Author [facility] Organization [facility] Address Unknown Phone Unavailable Care Team Providers Care Subway Repair Supervisor Name Role Phone Dania Barksdale MD PCP Jose Huff DO Unavailable Reason for Visit * Reason Comments Results Prograf - no change Encounter Details Care Team Description Date Type Department Lucia Trinidad, RN Results (Prograf - no change) 07/06/[address]phone [address] [address] Social History Date Tobacco Use Types Packs/Day [...] Telephone Encounter - Lucia Trinidad, RN - 07/06/2019 10:41 AM CLIP BAKER Reviewed pt's labs from 07/02 and 07/05. Creat stable at 3.77, Tacro level from therapeutic at 11.8. No medication changes indicated. Pt will have ureteral s tent removed on Tuesday, 07/08, and clinic visit on , 07/09 with labs prior. Pt c alled with results, no questions or concerns at this time. BAKER documented in this encounter Plan of Treatment Care Team Description Date Type Specialty Berta Harrison MD [address] [place] [address] Doroteo Enamorado MD [address] [place] [address] 10/02/2019 Hospital Radiology Encounter documented as of this encounter Goals Goal Patient Associated Recent Progress Patient-Stat Aut hor Goal Type Problems ed? Recover from illness [facility] Rajani Ac, RN documented as of this encounter Visit Diagnoses Not on filedocumented in this encounter
--- OUTSIDE RECORDS SUMMARY | 2019-09-28 08:44 | XMS REPORT | Encounter Summary ---
Author Author [facility] Organization [facility] Address Unknown Phone Unavailable Care Team Providers Care Curtain Feller Blindstitch Name Role Phone Dania Barksdale MD PCP Jose Huff DO Unavailable Reason for Visit * Reason Comments Critical Result Encounter Details Care Team Description Date Type Department Carla Castañeda RN Critical Result 06/28/2019 Telephone The [facility] [address] [address] Social History Date Tobacco Use [...] Date Type Specialty Berta Harrison MD 4000 [place] [address] Doroteo Enamorado MD [address] [place] [address] 10/02/2019 Hospital Radiology Encounter documented as of this encounter Goals Goal Patient Associated Recent Progress Patient-Stat Aut hor Goal Type Problems ed? Recover from illness [facility] No Rajani Gallego RN documented as of this encounter Visit Diagnoses Not on filedocumented in this encounter
--- OUTSIDE RECORDS SUMMARY | 2019-09-28 08:44 | XMS REPORT | Encounter Summary ---
Author Author [facility] Organization [facility] Address Unknown Phone Unavailable Care Team Providers Care Spiral Binder Name Role Phone Dania Barksdale MD PCP Jose Huff DO Unavailable Reason for Visit * Reason Comments Medication Refill Encounter Details Care Team Description Date Type Department Lucia Trinidad RN 07/03/2019 Refill The [facility] [address] [address] Social History Date Tobacco Use [...] Date Type Specialty Berta Harrison MD [address] [place] [address] Doroteo Enamorado MD [address] [place] [address] 10/02/2019 Hospital Radiology Encounter documented as of this encounter Goals Goal Patient Associated Recent Progress Patient-Stat Aut hor Goal Type Problems ed? Recover from illness [facility] No Rajani Gallego RN documented as of this encounter Visit Diagnoses Not on filedocumented in this encounter
--- OUTSIDE RECORDS SUMMARY | 2019-09-28 08:44 | XMS REPORT | Encounter Summary ---
Author Author [facility] Organization [facility] Address Unknown Phone Unavailable Care Team Providers Care Melt House Supervisor Name Role Phone Dania Barksdale MD PCP Jose Huff DO Unavailable Encounter Details Care Team Description Date Type Department Lucia Trinidad RN Immunosuppression ([facility]) (Primary Dx) 07/09/2019 Orders Only The [facility] [address] [address] Social History Date Tobacco Use [...] Date Type Specialty Berta Harrison MD [address] [place] [address] Doroteo Enamorado MD [address] [place] [address] 10/02/2019 [facility] Radiology Encounter Order Schedule Name Type Priority Associated Diag noses Twice a week for 100 Occurrences startin g 07/09/2019 until 07/08/2020, 2 completed TACROLIMUS LC-MS/MS Lab Routine Immunosupp ression (HCC) documented as of this encounter Goals Goal Patient Associated Recent Progress Patient-Stat Aut hor Goal Type Problems ed? Recover from illness [facility] Rajani Ac RN documented as of this encounter Results * TACROLIMUS LC-MS/MS (08/20/2019 9:01 AM CDT) Tacrolimus 7.0 REFERENCE LAB LC-MS/MS Comment: Reference [...] developed and its performance characteristics determined by [employer] It has not been cleared or approved by the U.S. Food and Drug Administration. Testing Performed At: [facility] [address] [id number] CLIA ID: [id number] Specimen Blood Performing Organization Address City/State/Zipcode Ph one Number REFERENCE LAB REFERENCE LAB See results for address. * TACROLIMUS LC-MS/MS (07/10/2019 10:27 AM LABORER HOISTING) Tacrolimus 7.0 REFERENCE LAB LC-MS/MS Comment: Reference [...] developed and its performance characteristics determined by [employer] It has not been cleared or approved by the U.S. Food and Drug Administration. Testing Performed At: [employer] [address] [place] [address] CLIA ID: [id number] Specimen Blood Performing Organization Address City/State/Zipcode Ph one Number REFERENCE LAB REFERENCE LAB See results for address. documented in this encounter Visit Diagnoses Diagnosis Immunosuppression (HCC) Unspecified disorder of immune mechanis m documented in this encounter
--- OUTSIDE RECORDS SUMMARY | 2019-09-28 08:44 | XMS REPORT | Encounter Summary ---
Author Author [facility] Organization [facility] Address Unknown Phone Unavailable Care Team Providers Care Go Cart Mechanic Name Role Phone Dania Barksdale MD PCP Jose Huff DO Unavailable Encounter Details Care Team Description Date Type Department Self, Marilyn Kidney transplanted; Immunosuppression (HCC) 06/28/2019 Orders Only The [facility] [address] [address] Social History Date Tobacco Use [...] Date Type Specialty Berta Harrison MD 4000 [place] [address] Doroteo Enamorado MD [address] [place] [address] 10/02/2019 Hospital Radiology Encounter documented as of this encounter Goals Goal Patient Associated Recent Progress Patient-Stat Aut hor Goal Type Problems ed? Recover from illness Hospital No Rajani Gallego RN documented as of this encounter Procedures Comments Procedure Name Priority Date/Time Associated Diag nosis TACROLIMUS LEVEL(FK506) Routine 06/25/2019 Kidney transplanted 8:39 AM BOOK STORE ASSOCIATE Immunosuppression (HCC) documented in this encounter Results * TACROLIMUS LEVEL(FK506) (06/25/2019 8:39 AM BOOK STORE ASSOCIATE) Tacrolimus 21.0 (HH) 2.0 - 20.0 LABDE INTERFACE Specimen Blood Narrative Performed At LABDE INTERFACE Outside Lab Verified by Marilyn Woods on 06/28/2019. 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
--- OUTSIDE RECORDS SUMMARY | 2019-09-28 08:44 | XMS REPORT | Encounter Summary ---
Author Author [facility] Organization [facility] Address Unknown Phone Unavailable Care Team Providers Care Grades 1 Through 5 Teacher Name Role Phone Dania Barksdale MD PCP Jose Huff DO Unavailable Encounter Details Care Team Description Date Type Department Berta Harrison MD [address] [place] [address] [phone] 07/10/2019 [facility] Social History Date Tobacco Use [...] Medical Use to 1 each 0 Supply [facility] monitor blood pressure as directed. omeprazole DR(+) [...] tablet by mouth daily. Take with food. 07/10/2019 08/01/2019 epoetin krista (PROCRIT) Inject 1 mL 1 mL 3 10,000 unit/mL injection under the skin every 7 days for 4 doses. 06/01/2019 08/20/2019 ergocalciferol (VITAMIN Take one 12 capsule 0 D-2) 1,250 mcg (50,000 capsule by unit) capsule mouth every 7 days. 05/28/2019 07/12/[address] Take four 240 tablet 11 (MYFORTIC) 180 mg TbEC tablets by tablet mouth twice daily. 07/03/2019 07/24/2019 predniSONE (DELTASONE) 5 Take one 30 tablet 11 mg tablet tablet by mouth daily with breakfast. 07/10/2019 07/12/2019 tacrolimus (PROGRAF) 1 mg Take four 240 capsule 11 capsule capsules by mouth twice [...] Date Type Specialty Berta Harrison MD [address] [place] [address] Doroteo Enamorado MD [address] [place] [address] 10/02/2019 Hospital Radiology Encounter documented as of this encounter Goals Goal Patient Associated Recent Progress Patient-Stat Aut hor Goal Type Problems ed? Recover from illness [facility] Rajani Ac RN documented as of this encounter Procedures Comments Procedure Name Priority Date/Time Associated Diag nosis UA REFLEX CULTURE LABEL 07/10/2019 10:36 AM TERRAZZO FINISHER URINALYSIS MICROSCOPIC Routine 07/10/2019 Kidney transplanted REFLEX TO CULTURE 10:36 AM TERRAZZO FINISHER Immunosuppression ( HCC) HC URINALYSIS UAR Routine 07/10/2019 Kidney trans planted 10:36 AM TERRAZZO FINISHER Immunosuppression (HCC) HC TP/CR RATIO, RANDOM Routine 07/10/2019 Kidney transplanted 10:36 AM TERRAZZO FINISHER Immunosuppression (HCC) HC TACROLIMUS LC-MS/MS Routine 07/10/2019 Immunos uppression (HCC) 10:27 AM TERRAZZO FINISHER HC CBC W/ AUTOMATED DIFF Routine 07/10/2019 Kidne y transplanted 10:27 AM TERRAZZO FINISHER HC URIC ACID Routine 07/10/2019 Kidney transpla nted 10:27 AM TERRAZZO FINISHER HC PHOSPHOROUS, SERUM Routine 07/10/2019 Kidney t ransplanted 10:27 AM TERRAZZO FINISHER HC MAGNESIUM Routine 07/10/2019 Kidney transpla nted 10:27 AM TERRAZZO FINISHER HC COMPREHENSIVE Routine 07/10/2019 Kidney transp lanted METABOLIC PANEL 10:27 AM TERRAZZO FINISHER documented in this encounter Results * UA REFLEX CULTURE LABEL (07/10/2019 10:36 AM TERRAZZO FINISHER) UA Reflex Criteria for reflex to culture [facility] Culture are WBC>10, Positive Nitrit e, and/or >=+1 leukocytes. If quantity is not sufficient, an addendum will follow. Specimen Performing Organization Address [facility] [place] Ph one Number MAIN LAB [address] [place] [address] * PROTEIN/CR RATIO,UR RAN (07/10/2019 10:36 AM TERRAZZO FINISHER) Pathologist [facility] Protein, Random 81 MG/DL [facility] Creatinine, 119 MG/DL [facility] Random Protein/CR 0.7 [facility] ratio Specimen Urine - Urine Performing Organization Address [facility] [place] one Number [facility] [address] [place] [address] * URINALYSIS MICROSCOPIC REFLEX TO CULTURE (07/10/2019 10:36 AM TERRAZZO FINISHER) Pathologist [facility] WBCs,UA 2-10 0 - 2 /HPF [facility] RBCs,UA 10-20 0 - 3 /HPF [facility] Comment,UA Criteria for reflex to culture [facility] are WBC>10, Positive Nitrite, and/or >=+1 leukocytes. If quantity is not sufficient, an addendum will follow. Bacteria,UA FEW (A) NEG-NEG [facility] Squamous 0-2 0 - 5 [facility] Epithelial Cells Specimen Urine Performing Organization Address [facility] [place] Ph one Number [facility] [address] [place] [address] * URINALYSIS DIPSTICK REFLEX TO CULTURE (07/10/2019 10:36 AM TERRAZZO FINISHER) Color,UA YELLOW [facility] Turbidity,UA CLEAR CLEAR-CLEAR [facility] Specific 1.015 1.003 - 1.035 [facility] [place]-Urine pH,UA 6.0 5.0 - 8.0 [facility] Protein,UA 1+ (A) NEG-NEG [facility] Glucose,UA 1+ (A) NEG-NEG [facility] Ketones,UA NEG NEG-NEG [facility] Bilirubin,UA NEG NEG-NEG [facility] Blood,UA 2+ (A) NEG-NEG [facility] Urobilinogen,UA NORMAL NORM-NORMAL [facility] Nitrite,UA NEG NEG-NEG [facility] Leukocytes,UA NEG NEG-NEG [facility] Urine Ascorbic NEG NEG-NEG [facility] Acid, UA Specimen Urine Performing Organization Address City/[facility] one Number [facility]U MAIN LAB [address] [place] [address] * TACROLIMUS LC-MS/MS (07/10/2019 10:27 AM TERRAZZO FINISHER) Pathologist [facility] Tacrolimus 7.0 REFERENCE LAB LC-MS/MS Comment: [...] developed and its performance characteristics determined by [facility]. It has not been cleared or approved by the U.S. Food and Drug Administration. Testing Performed At: [facility] [address] [place] [address] [place] [address] CLIA ID: [id number] Specimen Blood Performing Organization Address [facility] one Number REFERENCE LAB REFERENCE LAB See results for address. * URIC ACID (07/10/2019 10:27 AM TERRAZZO FINISHER) Pathologist [facility] Uric Acid 5.8 4.0 - 8.0 MG/DL [facility] Specimen Blood Performing Organization Address [facility] [place] Ph one Number [facility] [address] [place] [address] * MAGNESIUM (07/10/2019 10:27 AM TERRAZZO FINISHER) Magnesium 1.7 1.6 - 2.6 mg/dL [facility] Specimen Blood Performing Organization Address [facility] one Number [facility] MAIN LAB [address] [place] [address] * PHOSPHORUS (07/10/2019 10:27 AM TERRAZZO FINISHER) Phosphorus 2.2 2.0 - 4.5 MG/DL [facility] Specimen Blood Performing Organization Address [facility] one Number [facility] [address] [place] [address] * COMPREHENSIVE METABOLIC PANEL (07/10/2019 10:27 AM TERRAZZO FINISHER) Sodium 138 137 - 147 MMOL/L [facility] Potassium 4.9 3.5 - 5.1 MMOL/L [facility] Chloride 114 (H) 98 - 110 MMOL/L [facility] Glucose 53 (L) 70 - 100 MG/DL [facility] Blood Urea 32 (H) 7 - 25 MG/DL [facility] Nitrogen Creatinine 2.91 (H) 0.4 - 1.24 MG/DL [facility] Calcium 8.9 8.5 - 10.6 MG/DL [facility] Total Protein 6.0 6.0 - 8.0 G/DL [facility] Total Bilirubin 0.3 0.3 - 1.2 MG/DL [facility] Albumin 3.9 3.5 - 5.0 G/DL [facility] Alk Phosphatase 98 25 - 110 U/L [facility] AST (SGOT) 16 7 - 40 U/L [facility] CO2 18 (L) 21 - 30 MMOL/L [facility] ALT (SGPT) 11 7 - 56 U/L [facility] Anion Gap 6 3 - 12 [facility] eGFR Non 23 (L) >60 mL/min [facility] Comment: [place] The eGFR is not validated f or use in drug dosing adjustments. Continue to use estimated creatinine clearance per dosing reference text. Please contact the Clinical Pharmacist for questions. eGFR 28 (L) >60 mL/min [facility] [place] Comment: The eGFR is not validated for use in drug dosing adjustments. Continue to use estimated creatinine clearance per dosing reference text. Please contact the Clinical Pharmacist for questions. Specimen Blood Performing Organization Address [facility] Ph one Number [facility] [address] [place] [address] * CBC AND DIFF (07/10/2019 10:27 AM TERRAZZO FINISHER) White Blood 3.3 (L) 4.5 - 11.0 K/UL [facility] Cells RBC 2.82 (L) 4.4 - 5.5 M/UL [facility] Hemoglobin 8.9 (L) 13.5 - 16.5 GM/DL [facility] Hematocrit 26.7 (L) 40 - 50 % [facility] MCV 95.0 80 - 100 FL [facility] MCH 31.5 26 - 34 PG [facility] MCHC 33.1 32.0 - 36.0 G/DL [facility] RDW 15.2 (H) 11 - 15 % [facility] Platelet Count 124 (L) 150 - 400 K/UL [facility] MPV 8.9 7 - 11 FL [facility] Neutrophils 82 (H) 41 - 77 % [facility] Lymphocytes 8 (L) 24 - 44 % [facility] Monocytes 7 4 - 12 % [facility] Eosinophils 2 0 - 5 % [facility] Basophils 1 0 - 2 % [facility] Absolute 2.70 1.8 - 7.0 K/UL [facility] Neutrophil Count Absolute Lymph 0.30 (L) 1.0 - 4.8 K/UL [facility] Count Absolute 0.20 0 - 0.80 K/UL [facility] Monocyte Count Absolute 0.10 0 - 0.45 K/UL [facility] Eosinophil Count Absolute 0.00 0 - 0.20 K/UL [facility] Basophil Count Specimen Blood Performing Organization Address City/State/Zipcode Ph one Number [facility] MAIN [facility] [address] [place] [address] 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
--- OUTSIDE RECORDS SUMMARY | 2019-09-28 08:44 | XMS REPORT | Encounter Summary ---
Author Author [facility] Organization [facility] Address Unknown Phone Unavailable Care Team Providers Care Hi Lift Operator Name Role Phone Dania Barksdale MD PCP Jose Huff DO Unavailable Encounter Details Care Team Description Date Type Department Lucia Trinidad RN Kidney transplanted (Primary Dx) 06/29/2019 Orders Only [facility] [address] [id number] Social History Date Tobacco Use Types Packs/Day [...] Specialty Berta Harrison MD [address] [place], [place] [id number] Doroteo Enamorado MD [address] [place] [address] 10/02/2019 Hospital Radiology Encounter Order Schedule Name Type Priority Associated Diag noses Expected: 06/29/2019 (Approximate), Expi res: 06/29/2020 HAPTOGLOBIN Lab Specimen Kidney transpla nted in Lab documented as of this encounter Goals Goal Patient Associated Recent Progress Patient-Stat Aut hor Goal Type Problems ed? Recover from illness Hospital Rajani Ac RN documented as of this encounter Visit Diagnoses Diagnosis Kidney transplanted Kidney replaced by transplant documented in this encounter
--- OUTSIDE RECORDS SUMMARY | 2019-09-28 08:44 | XMS REPORT | Encounter Summary ---
Author Author [facility] Organization [facility] Address Unknown Phone Unavailable Care Team Providers Care Rap Artist Name Role Phone Dania Barksdale MD PCP Jose Huff DO Unavailable Reason for Visit * Reason Comments Results DSA/Allosure Encounter Details Care Team Description Date Type Department Lucia Trinidad, RN Results (DSA/Allosure) 07/02/[address] [address] Social History Date Tobacco Use Types Packs/Day [...] Telephone Encounter - Lucia Trinidad RN - 07/02/2019 1:02 PM WOOL HANKER 06/28 DSA- neg, Allosure 0.25. Will have results scanned to pt's chart. HANKER documented in this encounter Plan of Treatment Care Team Description Date Type Specialty Berta Harrison MD [address] [place] [address] Doroteo Enamorado MD [address] [place] [address] 10/02/2019 Hospital Radiology Encounter documented as of this encounter Goals Goal Patient Associated Recent Progress Patient-Stat Aut hor Goal Type Problems ed? Recover from illness [facility] Rajani Ac RN documented as of this encounter Visit Diagnoses Not on filedocumented in this encounter
--- OUTSIDE RECORDS SUMMARY | 2019-09-28 08:44 | XMS REPORT | Encounter Summary ---
Author Author [facility] Organization [facility] Address Unknown Phone Unavailable Care Team Providers Care Ui Developer With Angular Js Name Role Phone Dania Barksdale MD PCP Jose Huff DO Unavailable Reason for Visit * Reason Comments s/p Kidney Transplant Encounter Details Care Team Description Date Type Department Berta Harrison MD [address] [place], [place] [id number] Immunosuppression (HCC) (Primary Dx); Aftercare following organ transplant 07/10/2019 Office Visit The [facility] [address] [phone] Social History Date Tobacco Use Types Packs/Day [...] Signs Reading Time Taken Comments Vital Sign 135/68 07/10/2019 11:11 AM PUMP OPERATOR [employer]PRODU[employer] Blood Pressure 89 07/10/2019 11:11 AM PUMP OPERATOR [employer] Pulse 36.4 C (97.5 F) 07/10/2019 11:08 AM PUMP OPERATOR [employer] Temperature - - Respiratory Rate 96% 07/10/2019 11:08 AM PUMP OPERATOR [employer] Oxygen Saturation - - Inhaled Oxygen Concentration 96.1 kg (211 lb 12.8 oz) 07/10/2019 11:08 AM PUMP OPERATOR [employer] Weight 167.6 cm (5' 6") 07/10/2019 11:08 AM PUMP OPERATOR [employer] Height 34.19 07/10/2019 11:08 AM PUMP OPERATOR [employer] Body Mass Index documented in this encounter [...] * Patient Instructions* Lucia Trinidad RN - 07/10/2019 10:00 AM PUMP OPERATOR [employer] Return to see Velia nurse practitioner, in 2 weeks Repeat labs Twice a week, Mondays and . Further testing needs: None today, need to reschedule cataract surgery. Needs to be 3 months after transplant Medication changes: Take Myfortic 360mg twice a day (2 tabs twice a day) You can increase weight limit, ~20lbs. OPERATOR [employer]ODU[employer] documented in this encounter Progress Notes * Berta Harrison MD - 07/10/2019 10:00 AM PUMP OPERATOR [employer] ATTESTATION I have personally seen and examined this patient with the fellow, performed the loyola portions of the E/M visit, discussed the case and concur with the fellow's documentation of history, physical exam, assessment, and treatment plan. I have made necessary changes to the note. 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 Pace in the Renal Transplant Clinic for routine evaluation of his renal transplant. He feels better overall since the last visit, has no new complaints today Modest improvement in his energy level. Pain over the kidney allograft is almost resolved BP is variable but acceptable, BS is low in the morning, managed by his endocrin ologist Making about 1 L of uop, and drinking up to 2 L per day No nausea or vomiting, but diarrhea: mixed and stable since transplant. Good delano etite Weight is almost stable since the last visit at 96 kg Denies hospitalizations, illnesses, fevers, chills, chest pains, sob, abd pains, swelling, rash, dysuria. + hematuria after stent removal yesterday REVIEW OF SYSTEMS: Comprehensive 14-point ROS reviewed Positives noted in HPI otherwise negative. Past History: DM type 1 Surgical History: Procedure Laterality Date ALLOTRANSPLANTATION KIDNEY FROM NON LIVING DONOR WITHOUT RECIPIENT NEPHRECTO MY N/A 05/27/2019 Performed by Melecio Nielsen MD at Main OR/Periop Social History Socioeconomic History Marital status: Spouse name: Not on file Number of children: Not on file Years of education: Not on file Highest education level: Not on file Occupational History Not on file Tobacco Use Smoking status: Former Smoker Packs/day: 2.00 Years: 30.00 Pack years: 60.00 Last attempt to quit: 12/17/2001 Years since quittin.5 Smokeless tobacco: Never Used Substance and Sexual [...] as needed., Disp: 100 tablet, Rfl: 1 albuterol sulfate (PROAIR HFA) 90 mcg/actuation aerosol inhaler, Inhale 2 p uffs by mouth into the lungs every 6 hours as needed for Wheezing or Shortness o f Breath. Shake well before use., Disp: , Rfl: aspirin EC 81 mg tablet, Take one tablet by mouth daily. Take with food., D isp: 90 tablet, Rfl: 1 epoetin krista (PROCRIT) 10,000 unit/mL [...] under the skin daily., Disp: , [facility], Use to monitor blood pressure as [place]., Disp: 1 each, Rfl: [address] (MYFORTIC) 180 mg TbEC tablet, Take four tablets by mouth twice daily., Disp: 240 tablet, Rfl: [address](+) (PRILOSEC) 40 [...] 0 tacrolimus (PROGRAF) 1 mg capsule, Take four capsules by mouth twice daily. , Disp: 240 capsule, Rfl: 11 tamsulosin (FLOMAX) 0.4 mg [...] one tablet b y mouth three times weekly. MWF, Disp: 30 tablet, Rfl: 11 valGANciclovir (VALCYTE) 450 mg tablet, Take one tablet by mouth twice week ly. Tue/, Disp: 60 tablet, Rfl: 5 Physical Exam: BP 135/68 (BP Source: Arm, Right Upper, Patient Position: Standing) | Pulse 89 | Temp 36.4 C (97.5 F) (Oral) | Ht 167.6 cm (66") | Wt 96.1 kg (211 lb 12 .8 oz) | SpO2 96% | BMI 34.19 kg/m General: In NAD; A&Ox3, looks improved than last visit Skin: Warm, dry, no signs of rash HEENT: Grossly normal appearing Neck: Supple CV: Regular, regular rate, normal S1/S2, no murmurs Lungs: CTA bilaterally in posterior jalloh Abd: Soft, non distended, no guarding or bruits. Transplant non tender, well hea led wound Ext: 1+ edema; left AVF with button holes Neuro: No focal deficits Psych: Affect appropriate Right thumb injury healing well. Laboratory studies: CMP: CMP Latest Ref Rng & Units 07/10/2019 07/05/2019 07/02/2019 06/28/2019 06/25/2019 NA 137 - 147 MMOL/L 138 138 139 138 137 K 3.5 - 5.1 MMOL/L 4.9 4.9 4.8 5.1 5.3 CL 98 - 110 MMOL/L 114(H) 114 114 111(H) 112 CO2 21 - 30 MMOL/L 18(L) 17(L) 15(L) 20(L) 17(L) GAP 3 - 12 6 12 15(H) 7 13 BUN 7 - 25 MG/DL 32(H) 30(H) 31(H) 30(H) 29(H) CR 0.4 - 1.24 MG/DL 2.91(H) 3.77(H) 3.77(H) 4.22(H) 3.72(H) GLUX 70 - 100 MG/DL 53(L) - - 150(H) - CA 8.5 - 10.6 MG/DL 8.9 8.8 8.9 9.1 8.9 TP 6.0 - 8.0 G/DL 6.0 5.9(L) 6.0 6.1 6.2 ALB 3.5 - 5.0 G/DL 3.9 3.9 3.9 3.9 3.9 ALKP 25 - 110 U/L 98 110 114 103 113 ALT 7 - 56 U/L 11 14 15 11 12 TBILI 0.3 - 1.2 MG/DL 0.3 0.2 0.2 0.3 0.3 GFR >60 mL/min 23(L) 17(L) 17(L) 15(L) 17(L) GFRAA >60 mL/min 28(L) - - 18(L) - No results found for: LIPASE No [...] for: EBVDNAQT TACROLIMUS LEVEL: Tacrolimus Date Value 07/05/2019 11.9 07/02/2019 11.8 06/28/2019 16.6 NG/ML (HH) 06/25/2019 21.0 (HH) 06/21/2019 13.0 06/18/2019 9.9 06/14/2019 13.1 NG/ML 06/12/2019 10.8 NG/ML CBC with Diff: CBC with Diff Latest Ref Rng & Units 07/10/2019 07/05/2019 WBC 4.5 - 11.0 K/UL 3.3(L) 3.76(L) RBC 4.4 - 5.5 M/UL 2.82(L) 2.71(L) HGB 13.5 - 16.5 GM/DL 8.9(L) 8.6(L) HCT 40 - 50 % 26.7(L) 26.4(L) MCV 80 - 100 FL 95.0 97.4(H) MCH 26 - 34 PG 31.5 31.7(H) MCHC 32.0 - 36.0 G/DL 33.1 32.6 RDW 11 - 15 % 15.2(H) 13.7 PLT 150 - 400 K/UL 124(L) 155 MPV 7 - 11 FL 8.9 11.1(H) NEUT 41 - 77 % 82(H) 83.5(H) ANC 1.8 - 7.0 K/UL 2.70 3.14 LYMA 24 - 44 % 8(L) - ALYM 1.0 - 4.8 K/UL 0.30(L) 0.23(L) ANGELA 4 - 12 % 7 - AMONO 0 - 0.80 K/UL 0.20 0.3 EOSA 0 - 5 % 2 - AEOS 0 - 0.45 K/UL 0.10 0.1 BASA 0 - 2 % 1 - ABAS 0 - 0.20 K/UL 0.00 0.0 Hemoglobin A1C (%) Date Value 05/27/2019 7.9 (H) 04/19/2019 8.4 (H) 12/17/2016 11.4 (H) Urinalysis: Lab Results Component Value Date/Time UCOLOR YELLOW 07/10/2019 10:36 AM TURBID CLEAR 07/10/2019 10:36 AM USPGR 1.015 07/10/2019 10:36 AM UPH 6.0 07/10/2019 10:36 AM UPROTEIN 1+ (A) 07/10/2019 10:36 AM UAGLU 1+ (A) 07/10/2019 10:36 AM UKET NEG 07/10/2019 10:36 AM UBILE NEG 07/10/2019 10:36 AM UBLD 2+ (A) 07/10/2019 10:36 AM UROB NORMAL 07/10/2019 10:36 AM Protein/CR ratio (no units) Date Value 07/10/2019 0.7 07/05/2019 0.42 07/02/2019 0.48 06/28/2019 0.7 06/25/2019 0.43 Imaging: Results for orders placed during the [...] (post void). Assessment and Plan: Mr. 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 # DDRT Complicated by delayed graft function-likely from ATN kidney, DCD, size m ismatch. - Cr nadired at 2.9, remarkable improvement in kidney function since the last vi sit ( LDH, hapto, BK, CMV was done last visit was -ve, Allosure 0.2 DSA -ve) - Stent removed on 07/09/2019 - ISAURA 06/28 elevated RI, stent in place, mild ectasia of collecting system, organ ized hematoma # Immunosuppression - On maintenance Triple drug therapy - Goal tacrolimus level of goal 10-15 ng/mL (MEIA) or 8-12 mcg/L (HPLC). - Currently taking Prograf 4 mg mg BID, pending trough - Will decrease the MPA from 720 mg bid to 540 mg bid given the low immunologic risk, mild leukopenia and chronic diarrhea - Keep on prednisone 5 mg # ID Proph - CMV D+/R- to treat with Valcyte for 9 months post transplant - PJP Prophylax, to treat with Bactrim for 1 year post transplant - Completed Nystatin # Hypertension: BP is variable but acceptable will keep same for now # DM/ Hyperglycemia - On Insulin pump - Following with Endo # Anemia - Hb 8.9 Tsat 27%, ferritin 883, on iron tabs - Will start Epoetin 30153 u weekly # Electrolytes: - Phos,mag, Na, K WNL # Incidental injury over left thumb - healing # need to reschedule cataract surgery. Needs to be 3 months after transplant RTC next week Labs twice a week Sincerely, Mark Zaragoza MD Kidney and Pancreas Transplant Cc: Malathi wOen Cc: Dania Barksdale Please contact the [facility]Pancreas Transplant [facility] at [phone] for any transplant related questions or concerns that may arise . OPERATOR [employer] * Lucia Trinidad RN - 07/10/2019 10:00 AM PUMP OPERATOR [employer] Last visit: 06/14/19 Labs today 05/30: HD session while inpatient 06/01: hospital d/c 06/04: HD session as outpatient 06/14: CORI drain removed. 06/27: Metoprolol stopped for BPs 90s. 06/28: Decreased Prograf 5/5 to 4/4. US neg, DSA/Allosure neg, CXR neg, Flu neg. 07/08: Ureteral stent removed. 07/09 Plan: Pt had ureteral stent removed and procedure went well. Pt had appt wit h local environmental resource specialist, told to increase activity. Hgb continues to be <10, will obtain epogen injection. Transplant Synopsis: Date: 05/27/2019 Donor: DCD from a female donor in early 50s KDPI: 60% CPRA: 0% DSA: none Induction: Thymo for steroid avoidance CMV status: D+/R- Post-op course: DGF Ureteral stent removal: 07/09/19 Baseline Scr: TBD Clinical trial: none Referring claim auditor: Brayden Surgeon: Morales PMH: DM 1, Seizure disorder, depression, GREGORY, Vit D deficiency, obesity OPERATOR [employer] documented in this encounter Plan of Treatment Care Team Description Date Type Specialty Berta Harrison MD [address] [place] [address] Doroteo Enamorado MD [address] [place] [address] 10/02/2019 Hospital Radiology Encounter documented as of this encounter Goals Goal Patient Associated Recent Progress Patient-Stat Aut hor Goal Type Problems ed? Recover from illness [facility] Rajani Ac, JAIME documented as of this encounter Visit Diagnoses Diagnosis Immunosuppression (HCC) Unspecified disorder of immune mechanis m Aftercare following organ transplant documented in this encounter
--- OUTSIDE RECORDS SUMMARY | 2019-09-28 08:45 | XMS REPORT | Encounter Summary ---
Author Author [facility] Organization [facility] Address Unknown Phone Unavailable Care Team Providers Care Plastic Cnc Machine Operator Name Role Phone Dania Barksdale MD PCP Jose Huff DO Unavailable Encounter Details Care Team Description Date Type Department Kandy Gill MA Kidney transplanted; Immunosuppression (HCC) 06/25/2019 Orders Only [facility] [address] [address] Social History Date Tobacco Use [...] Status Date of Assessment Functional Status Response 06/12/2019 Does the patient have a hearing impairment: No 06/12/2019 Does the patient have a visual impairment: Yes 06/12/2019 Does the patient have impaired ambulation: Yes 06/12/2019 Does the patient have an activity of daily living No (ADL) impairment: 06/12/2019 Does the patient have an instrumental activity of No daily living (IADL) impairment: Date of Assessment Cognitive Status Response 06/12/2019 Does the patient have a cognitive impairment: No documented as of this encounter Plan of Treatment Care Team Description Date Type Specialty Berta Harrison MD 4000 [place] [address] Doroteo Enamorado MD [address] [place] [address] 10/02/2019 Hospital Radiology Encounter documented as of this encounter Goals Goal Patient Associated Recent Progress Patient-Stat Aut hor Goal Type Problems ed? 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
--- OUTSIDE RECORDS SUMMARY | 2019-09-28 08:45 | XMS REPORT | Encounter Summary ---
Author Author [facility] Organization [facility] Address Unknown Phone Unavailable Care Team Providers Care Manager Talent Acquisition Name Role Phone Dania Barksdale MD PCP Jose Huff DO Unavailable Reason for Visit * Reason Comments s/p Kidney Transplant Encounter Details Care Team Description Date Type Department Berta Harrison MD 4000 [place], [place] [id number] Kidney replaced by transplant (Primary D x); Immunosuppression (HCC) 06/28/2019 Office Visit [facility] [address] [id number] Social History Date Tobacco Use Types Packs/Day [...] Signs Reading Time Taken Comments Vital Sign 92/47 06/28/2019 10:42 AM FINANCIAL AID ADMINISTRATOR Blood Pressure 81 06/28/2019 10:42 AM FINANCIAL AID ADMINISTRATOR Pulse 36.3 C (97.4 F) 06/28/2019 10:38 AM FINANCIAL AID ADMINISTRATOR Temperature - - Respiratory Rate 98% 06/28/2019 10:38 AM FINANCIAL AID ADMINISTRATOR Oxygen Saturation - - Inhaled Oxygen Concentration 95.6 kg (210 lb 12.8 oz) 06/28/2019 10:38 AM FINANCIAL AID ADMINISTRATOR Weight 167.6 cm (5' 6") 06/28/2019 10:38 AM FINANCIAL AID ADMINISTRATOR Height 34.02 06/28/2019 10:38 AM FINANCIAL AID ADMINISTRATOR Body Mass Index documented in this encounter [...] * Patient Instructions* Lucia Trinidad RN - 06/28/2019 10:40 AM FINANCIAL AID ADMINISTRATOR Instructions: Return to see Dr: Berta Harrison on 07/10/19 Obtain repeat labs Twice per week Further testing needs: US needed today, CXR today. Medication changes: Stop metoprolol and lasix. Will need to adjust Prograf. 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 Malathi Owen, We had the pleasure of meeting Mr. Pace in the Renal Transplant Clinic for routine evaluation of his renal transplant. UOP has gone down, also BP has been low, metoprolol and lasix stopped. Reports c ontinued twinges of pain over allograft. Also sneezing, cough with phlegm. Appetite okay, compliant with medications Denies hospitalizations, illnesses, fevers, chills, chest pains, sob, abd pains, swelling, rash, dysuria, hematuria. Reports nausea, no vomiting, REVIEW OF SYSTEMS: Comprehensive 14-point ROS reviewed [...] skin daily., Disp: , [facility], Use to monitor blood pressure as shane d., Disp: 1 each, Rfl: [address] (MYFORTIC) 180 mg TbEC tablet, Take four tablets by mouth twice daily., Disp: 240 tablet, Rfl: [address](+) (PRILOSEC) 40 mg capsule, Take 40 mg by mouth daily before breakfast., Disp: , Rfl: prednisone (DELTASONE) 5 mg tablet, Take one tablet [...] capsules by mouth twice daily. , Disp: 480 capsule, Rfl: 11 tamsulosin (FLOMAX) 0.4 mg [...] one tablet by mouth twice week ly. Mon/thurs, Disp: 60 tablet, Rfl: 5 Physical Exam: BP 92/47 (BP Source: Arm, Right Upper, Patient Position: Standing) | Pulse 81 | Temp 36.3 C (97.4 F) (Oral) | Ht 167.6 cm (66") | Wt 95.6 kg (210 lb 12. 8 oz) | SpO2 98% | BMI 34.02 kg/m General: In NAD; A&Ox3, looks improved than last visit Skin: Warm, dry, no signs of rash HEENT: Grossly normal appearing Neck: Supple CV: Regular, regular rate, normal S1/S2, no murmurs Lungs: CTA bilaterally in posterior jalloh Abd: Grossly normal without rebound, guarding, masses, or bruits. Transplant non tender, distended abdomen, carolynn Ext: significant edema;left AVF with button holes Neuro: No focal deficits Psych: Affect appropriate Right thumb injury healing well. Laboratory studies: CMP: CMP Latest Ref Rng & Units 06/28/2019 06/25/2019 06/21/2019 06/18/2019 06/14/2019 NA 137 - 147 MMOL/L 138 137 138 139 141 K 3.5 - 5.1 MMOL/L 5.1 5.3 5.2 5.0 3.9 CL 98 - 110 MMOL/L 111(H) 112 113 110 105 CO2 21 - 30 MMOL/L 20(L) 17(L) 17(L) 20(L) 24 GAP 3 - 12 7 13 13 14 12 BUN 7 - 25 MG/DL 30(H) 29(H) 43(H) 44(H) 40(H) CR 0.4 - 1.24 MG/DL 4.22(H) 3.72(H) 3.73(H) 3.91(H) 3.60(H) GLUX 70 - 100 MG/DL 150(H) - - - 77 CA 8.5 - 10.6 MG/DL 9.1 8.9 8.7 8.7 9.2 TP 6.0 - 8.0 G/DL 6.1 6.2 6.0 5.8(L) 6.2 ALB 3.5 - 5.0 G/DL 3.9 3.9 3.7 3.6 3.6 ALKP 25 - 110 U/L 103 113 87 82 72 ALT 7 - 56 U/L 11 12 13 11 7 TBILI 0.3 - 1.2 MG/DL 0.3 0.3 0.3 0.3 0.5 GFR >60 mL/min 15(L) 17(L) 17(L) 17(L) 18(L) GFRAA >60 mL/min 18(L) - - - 22(L) No results found for: LIPASE No results [...] for: EBVDNAQT TACROLIMUS LEVEL: Tacrolimus Date Value 06/28/2019 16.6 NG/ML (HH) 06/25/2019 21.0 (HH) 06/21/2019 13.0 06/18/2019 9.9 06/14/2019 13.1 NG/ML 06/12/2019 10.8 NG/ML 06/07/2019 8.9 NG/ML 06/04/2019 11.5 NG/ML CBC with Diff: CBC with Diff Latest Ref Rng & Units 06/28/2019 06/25/2019 WBC 4.5 - 11.0 K/UL 5.3 3.29(L) RBC 4.4 - 5.5 M/UL 2.93(L) 2.89(L) HGB 13.5 - 16.5 GM/DL 9.4(L) 9.3(L) HCT 40 - 50 % 28.2(L) 28.6(L) MCV 80 - 100 FL 96.1 99.0(H) MCH 26 - 34 PG 31.9 32.2(H) MCHC 32.0 - 36.0 G/DL 33.2 32.5 RDW 11 - 15 % 14.9 13.1 PLT 150 - 400 K/UL 172 201 MPV 7 - 11 FL 9.3 10.9(H) NEUT 41 - 77 % 84(H) 80.8(H) ANC 1.8 - 7.0 K/UL 4.50 2.66 LYMA 24 - 44 % 5(L) - ALYM 1.0 - 4.8 K/UL 0.20(L) 0.14(L) ANGELA 4 - 12 % 9 - AMONO 0 - 0.80 K/UL 0.50 0.4 EOSA 0 - 5 % 1 - AEOS 0 - 0.45 K/UL 0.10 0.1 BASA 0 - 2 % 1 - ABAS 0 - 0.20 K/UL 0.00 0.0 Hemoglobin A1C (%) Date Value 05/27/2019 7.9 (H) 04/19/2019 8.4 (H) 12/17/2016 11.4 (H) Urinalysis: Lab Results Component Value Date/Time UCOLOR PENNY 06/28/2019 10:17 AM TURBID CLEAR 06/28/2019 10:17 AM USPGR 1.018 06/28/2019 10:17 AM UPH 5.0 06/28/2019 10:17 AM UPROTEIN 2+ (A) 06/28/2019 10:17 AM UAGLU 2+ (A) 06/28/2019 10:17 AM UKET NEG 06/28/2019 10:17 AM UBILE NEG 06/28/2019 10:17 AM UBLD 2+ (A) 06/28/2019 10:17 AM UROB NORMAL 06/28/2019 10:17 AM Protein/CR ratio (no units) Date Value 06/28/2019 0.7 06/25/2019 0.43 06/21/2019 0.43 06/18/2019 0.45 06/14/2019 0.8 Imaging: Results for orders placed during [...] size m ismatch. - Cr nadired at 3.7, uptrended on last check- noted lower BP recently, decrease in UOP, elelvated FKL - Stent remains in - US as above - elevated RI, stent in place, mild ectasia of collecting system, organized hematoma - Will send DSA, Allosure, LDH, hapto, BK, CMV -ve # Immunosuppression - On maintenance Triple drug therapy - Goal tacrolimus level of goal 10-15 ng/mL (MEIA) or 8-12 mcg/L (HPLC). - Currently taking Prograf 5mg mg BID, level 16.6, will decrease dose to 4mg BID - MPA 720 mg BID and prednisone 5 mg # ID Proph - CMV D+/R- to treat with Valcyte for 9 months post transplant - PJP Prophylax, to treat with Bactrim for 1 year post transplant - Completed Nystatin # Hypertension: Good control - Lower BP lately- Anti hypertensives held # DM/ Hyperglycemia - On Insulin pump - Asked patient to go see his customer supply coordinator ( insulin requirement going down w ith improving kidney function, has to stop the pump more frequently) # Anemia - Hb 9.4 Tsat 27%, ferritin 883, - Started on iron tabs # Electrolytes: - Phos,mag, Na, K WNL # Incidental injury over left thumb - healing better RTC in 07/10/19 Labs twice a week Sincerely, Berta Harrison MD Kidney and Pancreas Transplant Cc: Malathi Owen Cc: Dania Barksdale Please contact the [facility] at [phone] for any transplant related questions or concerns that may arise . NCIAL AID ADMINISTRATOR * Lucia Trinidad, JAIME - 06/28/2019 10:40 AM FINANCIAL AID ADMINISTRATOR Last visit: 06/14/19 Labs today 05/30: HD session while inpatient 06/01: hospital d/c 06/04: HD session as outpatient 06/14: CORI drain removed. 06/27: Metoprolol stopped for BPs 90s. 06/28 Plan: BP was 100-110s this morning. Pt has pain at kidney site. Pt endorsin g sneezing, cough, chills. Pt having diarrhea every day. Plan: D/c metoprolol and lasix. Will obtain flu specimen (neg), CXR, and ISAURA. Ta crolimus level high. Decreased Prograf from 5/5 to 4/4. Carolynn removed. Transplant Synopsis: Date: 05/27/2019 Donor: DCD from a female donor in early 50's KDPI: 60% CPRA: 0% DSA: none Induction: Thymo for steroid avoidance CMV status: D+/R- Post-op course: DGF Ureteral stent removal: 07/09/19 Baseline Scr: TBD Clinical trial: none Referring websphere commerce architect: Brayden Surgeon: Morales PMH: DM 1, Seizure disorder, depression, GREGORY, Vit D deficiency, obesity NCIAL AID ADMINISTRATOR documented in this encounter Plan of Treatment Care Team Description Date Type Specialty Berta Harrison MD [address] [place] [address] Doroteo Enamorado MD 4000 [place] [address] 10/02/2019 Hospital Radiology Encounter Order Schedule Name Type Priority Associated Diag noses Expected: 06/28/2019 (Approximate), Expi res: 06/28/2020 INFLUENZA A/B AND RSV PCR Microbiology Routine Kidn ey replaced by transplant documented as of this encounter Goals Goal Patient Associated Recent Progress Patient-Stat Aut hor Goal Type Problems ed? Recover from illness Hospital Rajani Gallego RN documented as of this encounter Procedures Comments Procedure Name Priority Date/Time Associated Diag nosis UA REFLEX CULTURE LABEL 06/28/2019 10:17 AM FINANCIAL AID ADMINISTRATOR documented in this encounter Results * ALLOSURE (06/28/2019 1:37 PM FINANCIAL AID ADMINISTRATOR) Allosure SHIPPED VIA [employer] [facility]FERENCE LAB OVERNIGHT ON 06/28/2019. RESULTS WILL BE SENT DIRECTLY TO THE ORDERING PHYSICIAN. Specimen Blood Performing Organization Address City/State/[facility] Ph one Number REFERENCE LAB REFERENCE LAB See results for address. * US KIDNEY TRANSPLANT (06/28/2019 12:20 PM FINANCIAL AID ADMINISTRATOR) Specimen Impressions Performed At 1. Mild ectasia of the renal collecti ng system without carlin hydronephrosis. A [facility] RAD RESULTS nephroureteral stent remains in place. 2. Patent renal vasculature. No evide nce of large vessel compromise of the graft. 3. Mild, nonspecific elevation of int rarenal resistivity. This can be seen with ATN, drug toxicity or rejection. 4. Small, organized postoperative hem atoma along the deep anterior abdominal wall. Finalized by Sushma Shetty M.D. on 020 12:17 PM. Dictated by Sushma Shetty M.D. on 06/28/2019 12:11 PM. Narrative Performed At ULTRASOUND OF TRANSPLANT KIDNEY [facility] RAD RESULTS CLINICAL INDICATION: 49-year-old male w ith donor transplant 05/27/2019. Elevated creatinine. TECHNIQUE: Multiple grayscale, color Do ppler and spectral Doppler ultrasound images were obtained of the renal trans plant. COMPARISON: Prior renal transplant Dopp ler 06/05/2019 and 05/28/2019 FINDINGS: Right iliac fossa renal graft: Measures 9.5 x 3.7 cm. Mild ectasia of the collecting system without carlin hydrone phrosis. A nephroureteral stent remains in place. There is a small, lentiform o rganized hematoma along the deep abdominal wall measuring 5.3 x 1.2 x 4 cm. No internal blood flow detected. Intraparenchymal flow: Intrarenal resis tive indices are mildly elevated, ranging 0.78-0.82. Systolic acceleration is nor mal. Main Renal Artery: Patent, no visible s tenosis. PSV is 149 cm/s. Main Renal Vein: Patent, no visible shashi nosis. External Iliac Artery: Patent, no visib le stenosis. PSV above the anastomosis is 183 cm/s. External Iliac Vein: Patent, no visible stenosis. Urinary Bladder: Near completely decomp ressed (post void). Procedure Note Interface, Radiant Results - 06/28/2019 12:21 PM FINANCIAL AID ADMINISTRATOR ULTRASOUND OF TRANSPLANT KIDNEY CLINICAL INDICATION: 49-year-old male with donor transplant 05/27/2019. Elevated creatinine. TECHNIQUE: Multiple grayscale, color Doppler and spectral Doppler ultrasound images were obtained of the renal transplant. COMPARISON: Prior renal transplant Doppler 06/05/2019 and 05/28/2019 FINDINGS: Right iliac fossa renal graft: Measures 9.5 [...] Urinary Bladder: Near completely decompressed (post void). IMPRESSION 1. Mild ectasia of the renal collecting system without carlin hydronephrosis. A nephroureteral stent remains in place. 2. Patent renal vasculature. No evidenc e of large vessel compromise of the graft. 3. Mild, nonspecific elevation of intra renal resistivity. This can be seen with ATN, drug toxicity or rejection. 4. Small, organized postoperative hemat jovan along the deep anterior abdominal wall. Finalized by Sushma Shetty M.D. on 06/28/2019 12:17 PM. Dictated by Sushma Shetty M.D. on 06/28/2019 12:11 PM. Performing Organization Address City/State/Zipcode Ph one Number [facility] RAD RESULTS * CHEST 2 VIEWS (06/28/2019 11:41 AM FINANCIAL AID ADMINISTRATOR) Specimen Impressions Performed At 1. Resolution of [...] Interface, Radiant Results - 06/28/2019 11:59 AM FINANCIAL AID ADMINISTRATOR CHEST 2 VIEWS INDICATION: cough. COMPARISON STUDY: [...] on 06/28/2019 11:54 AM. Performing Organization Address City/State[facility] Ph [facility] Number [facility] RESULTS * UA REFLEX CULTURE LABEL (06/28/2019 10:17 AM FINANCIAL AID ADMINISTRATOR) UA Reflex Criteria for reflex to culture [facility] Culture are WBC>10, Positive Nitrit e, and/or >=+1 leukocytes. If quantity is not sufficient, an addendum will follow. Specimen Performing Organization Address City/[facility] Ph one Number [facility] [address] [place] [address] documented in this encounter Visit Diagnoses Diagnosis Kidney replaced by transplant Immunosuppression (HCC) Unspecified disorder of immune mechanis m documented in this encounter
--- OUTSIDE RECORDS SUMMARY | 2019-09-28 08:45 | XMS REPORT | Encounter Summary ---
Author Author [facility] Organization [facility] Address Unknown Phone Unavailable Care Team Providers Care Spanish Interpreter Name Role Phone Dania Barksdale MD PCP Jose Huff DO Unavailable Encounter Details Care Team Description Date Type Department Federico Phillips Kidney transplanted; Immunosuppression (HCC) 06/21/2019 Orders Only [facility] [address] [address] Social History Date Tobacco Use [...] Date Type Specialty Berta Harrison MD 4000 [place] [address] Doroteo Enamorado MD 4000 [place] [address] 10/02/2019 Hospital Radiology Encounter documented as of this encounter Goals Goal Patient Associated Recent Progress Patient-Stat Aut hor Goal Type Problems ed? Recover from illness [facility] Rajani Ac RN documented as of this encounter Procedures Comments Procedure Name Priority Date/Time Associated Diag nosis URINALYSIS MICROSCOPIC Routine 06/21/2019 Kidney transplanted REFLEX TO CULTURE 7:57 AM FEDERAL AID COORDINATOR Immunosuppression ( HCC) URINALYSIS DIPSTICK Routine 06/21/2019 Kidney tra nsplanted REFLEX TO CULTURE 7:57 AM FEDERAL AID COORDINATOR Immunosuppression ( HCC) PROTEIN/CR RATIO,UR RAN Routine 06/21/2019 Kidney transplanted 7:57 AM FEDERAL AID COORDINATOR Immunosuppression (HCC) CBC AND DIFF Routine 06/21/2019 Kidney transpla nted 7:57 AM FEDERAL AID COORDINATOR Immunosuppression (HCC) URIC ACID Routine 06/21/2019 Kidney transpla nted 7:57 AM FEDERAL AID COORDINATOR Immunosuppression (HCC) PHOSPHORUS Routine 06/21/2019 Kidney transpla nted 7:57 AM FEDERAL AID COORDINATOR Immunosuppression (HCC) MAGNESIUM Routine 06/21/2019 Kidney transpla nted 7:57 AM FEDERAL AID COORDINATOR Immunosuppression (HCC) COMPREHENSIVE METABOLIC Routine 06/21/2019 Kidney transplanted PANEL 7:57 AM FEDERAL AID COORDINATOR Immunosuppression ( HCC) documented in this encounter Results * CBC AND DIFF (06/21/2019 7:57 AM FEDERAL AID COORDINATOR) White Blood 3.51 (L) 5.00 - 10.00 LABDE INTERFACE Cells RBC 2.71 (L) 4.20 - 5.40 LABDE INTERFACE Hemoglobin 8.8 (L) 14.0 - 17.0 LABDE INTERFACE Hematocrit 27.0 (L) 42.0 - 52.0 LABDE INTERFACE MCV 99.6 (H) 80.0 - 97.0 LABDE INTERFACE MCH 32.5 (H) 27.0 - 31.2 LABDE INTERFACE MCHC 32.6 LABDE INTERFACE Platelet Count 176 LABDE INTERFACE RDW 13.2 LABDE INTERFACE Absolute 2.82 LABDE INTERFACE Neutrophil Count Neutrophils 80.3 (H) 37.0 - 80.0 LABDE INTERFACE Absolute Lymph 0.21 (L) 0.60 - 3.40 LABDE INTERFACE Count Lymphocytes 6.0 (L) 10.0 - 50.0 LABDE INTERFACE Absolute 0.4 LABDE INTERFACE Monocyte Count Monocytes 10.0 LABDE INTERFACE Absolute 0.1 LABDE INTERFACE Eosinophil Count Eosinophil 3.4 LABDE INTERFACE Absolute 0.0 LABDE INTERFACE Basophil Count Basophil 0.30 LABDE INTERFACE MPV 11.5 (H) 7.4 - 10.0 LABDE INTERFACE Specimen Blood Narrative Performed At LABDE INTERFACE Outside Lab Verified by Federicomarta Phillips on 06/21/2019. Performing Organization Address City/State/[facility] Ph one Number LABDE INTERFACE * COMPREHENSIVE METABOLIC PANEL (06/21/2019 7:57 AM FEDERAL AID COORDINATOR) Sodium 138 mmol/L LABDE INTERFACE Potassium 5.2 mmol/L LABDE INTERFACE Chloride 113 mmol/L LABDE INTERFACE CO2 17 (L) 22 - 33 LAB[facility] INTERFACE Anion Gap 13 LABDE INTERFACE Glucose 156 (H) 70 - 110 mg/dL LABDE INTERFACE Blood Urea 43 (H) 5 - 25 mg/dL LABDE INTERFACE Nitrogen Creatinine 3.73 (H) 0.50 - 1.50 mg/dl LABDE INTERF RAMON Calcium 8.7 mg/dL LABDE INTERFACE Alk Phosphatase 87 U/L LABDE INTERFAC E AST (SGOT) 11 U/L LABDE INTERFACE ALT (SGPT) 13 U/L LABDE INTERFACE Total Bilirubin 0.3 mg/dL LABDE INTERFAC E Total Protein 6.0 g/dL LABDE INTERFACE Albumin 3.7 g/dL LABDE INTERFACE eGFR Non 17 (L) >59 mL/min/1.73 m2 LABDE INTER FACE Specimen Blood Narrative Performed At LABDE INTERFACE Outside Lab Verified by Federicomarta Ledbetterht on 06/21/2019. Performing Organization Address City/[facility] Ph one Number LABDE INTERFACE * MAGNESIUM (06/21/2019 7:57 AM FEDERAL AID COORDINATOR) Magnesium 2.0 LABDE INTERFACE Specimen Blood Narrative Performed At LABDE INTERFACE Outside Lab Verified by Federicomarta Ledbetterht on 06/21/2019. Performing Organization Address City/[facility]/Zipcode Ph one Number LABDE INTERFACE * PHOSPHORUS (06/21/2019 7:57 AM FEDERAL AID COORDINATOR) Phosphorus 3.5 LABDE INTERFACE Specimen Blood Narrative Performed At LABDE INTERFACE Outside Lab Verified by Federico Phillips on 06/21/2019. Performing Organization Address [facility] Ph one Number LABDE INTERFACE * PROTEIN/CR RATIO,UR RAN (06/21/2019 7:57 AM FEDERAL AID COORDINATOR) Protein, Random 46 (H) 0 - 20 LABDE INTERFAC E Creatinine, 106.9 (H) 0.0 - 50.0 LABDE INTERFACE Random Protein/CR 0.43 LABDE INTERFACE ratio Specimen Urine - Urine Narrative Performed At LABDE INTERFACE Outside Lab Verified by Federico Phillips on 06/21/2019. Performing Organization Address [facility] Ph one Number LABDE INTERFACE * URIC ACID (06/21/2019 7:57 AM FEDERAL AID COORDINATOR) Uric Acid 5.9 LABDE INTERFACE Specimen Blood Narrative Performed At LABDE INTERFACE Outside Lab Verified by Federico Phillips on 06/21/2019. Performing Organization Address [facility] Ph one Number LABDE INTERFACE * URINALYSIS DIPSTICK REFLEX TO CULTURE (06/21/2019 7:57 AM FEDERAL AID COORDINATOR) Color,UA Yellow LABDE INTERFACE Turbidity,UA Slightly Cloudy (A) Clear LABDE INTE RFACE Glucose,UA 1+ (A) Negative LABDE INTERFACE Bilirubin,UA Negative LABDE INTERFACE Ketones,UA Negative LABDE INTERFACE Specific 1.020 LABDE INTERFACE [place]-Urine Blood,UA 2+ (A) Negative LABDE INTERFACE pH,UA 5.5 LABDE INTERFACE Protein,UA 2+ (A) Negative LABDE INTERFACE Urobilinogen,UA 0.2 (A) 0.2 - 1.0 LABDE INTERFAC E Nitrite,UA Negative LABDE INTERFACE Leukocytes,UA Trace (A) Negative LABDE INTERFACE Specimen Urine Narrative Performed At LABDE INTERFACE Outside Lab Verified by Federico Phillips on 06/21/2019. Performing Organization Address [facility] Ph one Number LABDE INTERFACE * URINALYSIS MICROSCOPIC REFLEX TO CULTURE (06/21/2019 7:57 AM FEDERAL AID COORDINATOR) WBCs,UA 5-10 (A) LABDE INTERFACE RBCs,UA 10-20 (A) LABDE INTERFACE Bacteria,UA Trace (A) LABDE INTERFACE Specimen Urine Narrative Performed At LABDE INTERFACE Outside Lab Verified by Federico Phillips on 06/21/2019. 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
--- OUTSIDE RECORDS SUMMARY | 2019-09-28 08:45 | XMS REPORT | Encounter Summary ---
Author Author [facility] Organization [facility] Address Unknown Phone Unavailable Care Team Providers Care Tankage Grinder Operator Name Role Phone Dania Barksdale MD PCP Jose Huff DO Unavailable Reason for Visit * Reason Comments Lab Results Encounter Details Care Team Description Date Type Department Carla Castañeda shared services manager Results 06/25/2019 Telephone The [facility] [address] [address] Social History Date Tobacco Use Types Packs/Day [...] Telephone Encounter - Carla Castañeda RN - 06/25/2019 2:35 PM TRAFFIC CONTROL OFFICER Patient requesting lab results. No results available. FIC CONTROL OFFICER * Telephone Encounter - Carla Castañeda RN - 06/25/2019 2:34 PM TRAFFIC CONTROL OFFICER ----- Message from Addie Vilchis sent at 06/25/2019 2:29 PM TRAFFIC CONTROL OFFICER ----- presley Myers. Called and would like a call back. FIC CONTROL OFFICER documented in this encounter Plan of Treatment Care Team Description Date Type Specialty Berta Harrison MD [address] [place] [address] Doroteo Enamorado MD 4000 [place] [address] 10/02/2019 Hospital Radiology Encounter documented as of this encounter Goals Goal Patient Associated Recent Progress Patient-Stat Aut hor Goal Type Problems ed? Recover from illness [facility] Rajani Ac, RN documented as of this encounter Visit Diagnoses Not on filedocumented in this encounter
--- OUTSIDE RECORDS SUMMARY | 2019-09-28 08:45 | XMS REPORT | Encounter Summary ---
Author Author [facility] Organization [facility] Address Unknown Phone Unavailable Care Team Providers Care Co Founder And Ceo Name Role Phone Dania Barksdale MD PCP Jose Huff DO Unavailable Reason for Visit * Reason Comments Results Encounter Details Care Team Description Date Type Department Lucia Trinidad RN Results 06/18/[address] Telephone [address] [address] Social History Date Tobacco Use Types Packs/Day [...] Telephone Encounter - Lucia Trinidad RN - 06/18/2019 3:14 PM HEARING AID MECHANIC Pt completed labs today, 06/18, at OSH for first time. Received lab results and C reat slightly up at 3.91. Called to discuss with pt. Pt's weight is unchanged, U O down to 1.5L from 2L daily. Old CORI Drain site with no output. Pt states he's f eeling well. Discussed with Dr. Idania Harrison and will monitor for labs on . ING AID MECHANIC documented in this encounter Plan of Treatment Care Team Description Date Type Specialty Berta Harrison MD [address] [place] [address] Doroteo Enamorado MD [address] [place] [address] 10/02/2019 Hospital Radiology Encounter documented as of this encounter Goals Goal Patient Associated Recent Progress Patient-Stat Aut hor Goal Type Problems ed? Recover from illness [facility] Rajani Ac, RN documented as of this encounter Visit Diagnoses Not on filedocumented in this encounter
--- OUTSIDE RECORDS SUMMARY | 2019-09-28 08:45 | XMS REPORT | Encounter Summary ---
Author Author [facility] Organization [facility] Address Unknown Phone Unavailable Care Team Providers Care Burglary Investigator Name Role Phone Dania Barksdale MD PCP Jose Huff DO Unavailable Reason for Visit * Reason Comments Blood Pressure Readings Encounter Details Care Team Description Date Type Department Carla Castañeda, RN Blood Pressure Readings 06/27/2019 Telephone [facility] [address] [address] Social History Date Tobacco Use Types Packs/Day [...] Telephone Encounter - Carla Castañeda RN - 06/27/2019 2:24 PM WIRER MAINTENANCE Per Dr. Idania Harrison, patient to hold Metoprolol until seen tomorrow in clinic. Pat ient v/u. R MAINTENANCE * Telephone Encounter - Carla Castañeda RN - 06/27/2019 1:05 PM WIRER MAINTENANCE Call returned to patient. Patient states he is having pain under belly button, feeling like he is getting stabbed. He said it is not constant and not getting worse. Patient notified this could be normal healing of transplant incision sit e. He also is concerned about his blood pressures. BPs are running 90-110s/50- 60s, HR 80s-90s. Patient takes Metoprolol 12.5 mg bid. Labs drawn 06/25 reviewe d with patient. Creatinine 3.72, hemoglobin improved at 9.3. Electrolytes WNL . Tacrolimus level not back yet. Patient's weight this am is 204, which is jose n per patient. Urine output has decreased, was 900 mL yesterday, input yesterd ay was [address] Idania Harrison notified. R MAINTENANCE * Telephone Encounter - Carla Castañeda RN - 06/27/2019 1:05 PM WIRER MAINTENANCE ----- Message from Yahaira Shetty sent at 06/27/2019 11:43 AM WIRER MAINTENANCE ----- Stef is having a lot of pain and would also like his lab results. R MAINTENANCE documented in this encounter Plan of Treatment Care Team Description Date Type Specialty Berta Harrison MD [address] [place] [address] [phone] Doroteo Enamorado MD 4000 [place] [address] [phone] 10/02/2019 Hospital Radiology Encounter documented as of this encounter Goals Goal Patient Associated Recent Progress Patient-Stat Aut hor Goal Type Problems ed? Recover from illness [facility] Rajani Ac RN documented as of this encounter Visit Diagnoses Not on filedocumented in this encounter
--- OUTSIDE RECORDS SUMMARY | 2019-09-28 08:45 | XMS REPORT | Encounter Summary ---
Author Author [facility] Organization [facility] Address Unknown Phone Unavailable Care Team Providers Care Instruction Librarian Name Role Phone Dania Barksdale MD PCP Jose Huff DO Unavailable Reason for Visit * Reason Comments Critical Result Encounter Details Care Team Description Date Type Department Carla Castañeda RN Critical Result 06/28/2019 Telephone [facility] [address] [address] Social History Date Tobacco Use [...] Date Type Specialty Berta Harrison MD 4000 [place] [address] Doroteo Enamorado MD 4000 [place] [address] 10/02/2019 Hospital Radiology Encounter documented as of this encounter Goals Goal Patient Associated Recent Progress Patient-Stat Aut hor Goal Type Problems ed? Recover from illness [facility] No Rajani Gallego RN documented as of this encounter Visit Diagnoses Not on filedocumented in this encounter
--- OUTSIDE RECORDS SUMMARY | 2019-09-28 08:45 | XMS REPORT | Encounter Summary ---
Author Author [facility] Organization [facility] Address Unknown Phone Unavailable Care Team Providers Care Clinical Fellow Name Role Phone Dania Barksdale MD PCP Jose Huff DO Unavailable Encounter Details Care Team Description Date Type Department Federico Phillips Kidney transplanted; Immunosuppression (HCC) 06/26/2019 Orders Only The [facility] [address] [address] Social History Date Tobacco Use [...] Date Type Specialty Berta Harrison MD 4000 [place] [address] Doroteo Enamorado MD 4000 [place] [address] 10/02/2019 Hospital Radiology Encounter documented as of this encounter Goals Goal Patient Associated Recent Progress Patient-Stat Aut hor Goal Type Problems ed? Recover from illness [facility] Rajani Ac RN documented as of this encounter Procedures Comments Procedure Name Priority Date/Time Associated Diag nosis URINALYSIS MICROSCOPIC Routine 06/25/2019 Kidney transplanted REFLEX TO CULTURE 8:39 AM SURGICAL SERVICES MANAGER Immunosuppression ( [facility]) URINALYSIS DIPSTICK Routine 06/25/2019 Kidney tra nsplanted REFLEX TO CULTURE 8:39 AM SURGICAL SERVICES MANAGER Immunosuppression ( [facility]) PROTEIN/CR RATIO,UR RAN Routine 06/25/2019 Kidney transplanted 8:39 AM SURGICAL SERVICES MANAGER Immunosuppression (HCC) CBC AND DIFF Routine 06/25/2019 Kidney transpla nted 8:39 AM SURGICAL SERVICES MANAGER Immunosuppression ([facility]) URIC ACID Routine 06/25/2019 Kidney transpla nted 8:39 AM SURGICAL SERVICES MANAGER Immunosuppression (HCC) PHOSPHORUS Routine 06/25/2019 Kidney transpla nted 8:39 AM SURGICAL SERVICES MANAGER Immunosuppression (HCC) COMPREHENSIVE METABOLIC Routine 06/25/2019 Kidney transplanted PANEL 8:39 AM SURGICAL SERVICES MANAGER Immunosuppression ( [facility]) documented in this encounter Results * PROTEIN/CR RATIO,UR RAN (06/25/2019 8:39 AM SURGICAL SERVICES MANAGER) Protein, Random 60 (H) 0 - 20 [facility] Creatinine, 140.8 (H) 0.0 - 50.0 [facility] Random Protein/CR 0.43 [facility] ratio Specimen Urine - Urine Narrative Performed At [facility] Outside Lab Verified by Federico Phillips on 06/26/2019. Performing Organization Address City/State/Zipcode Ph one Number [facility] * CBC AND DIFF (06/25/2019 8:39 AM SURGICAL SERVICES MANAGER) White Blood 3.29 (L) 5.00 - 10.00 [facility] Cells RBC 2.89 (L) 4.20 - 5.40 [facility] Hemoglobin 9.3 (L) 14.0 - 17.0 [facility] Hematocrit 28.6 (L) 42.0 - 52.0 [facility] MCV 99.0 (H) 80.0 - 97.0 [facility] MCH 32.2 (H) 27.0 - 31.2 [facility] MCHC 32.5 [facility] Platelet Count 201 [facility] RDW 13.1 [facility] Absolute 2.66 [facility] Neutrophil Count Neutrophils 80.8 (H) 37.0 - 80.0 [facility] Absolute Lymph 0.14 (L) 0.60 - 3.40 [facility] Count Lymphocytes 4.3 (L) 10.0 - 50.0 [facility] Absolute 0.4 [facility] Monocyte Count Monocytes 11.9 [facility] Absolute 0.1 [facility] Eosinophil Count Eosinophil 2.4 [facility] Absolute 0.0 [facility] Basophil Count Basophil 0.60 [facility] MPV 10.9 (H) 7.4 - 10.0 [facility] Specimen Blood Narrative Performed At [facility] Outside Lab Verified by Federico Phillips on 06/26/2019. Performing Organization Address City/State[facility] Ph one Number [facility] * COMPREHENSIVE METABOLIC PANEL (06/25/2019 8:39 AM SURGICAL SERVICES MANAGER) Sodium 137 mmol/L [facility] Potassium 5.3 mmol/L [facility] Chloride 112 mmol/L [facility] CO2 17 (L) 22 - 33 [facility] Anion Gap 13 [facility] Glucose 262 (H) 70 - 110 mg/dL [facility] Blood Urea 29 (H) 5 - 25 mg/dL [facility] Nitrogen Creatinine 3.72 (H) 0.50 - 1.50 mg/dL [facility] [place] Calcium 8.9 mg/dL [facility] Alk Phosphatase 113 U/L [facility] AST (SGOT) 13 U/L [facility] ALT (SGPT) 12 U/L [facility] Total Bilirubin 0.3 mg/dL [facility] Total Protein 6.2 g/dL [facility] Albumin 3.9 g/dL [facility] eGFR Non 17 (L) >59 mL/min/1.73m2 [facility] Specimen Blood Narrative Performed At [facility] Outside Lab Verified by Federico Phillips on 06/26/2019. Performing Organization Address City/State[facility] Ph one Number [facility] * PHOSPHORUS (06/25/2019 8:39 AM SURGICAL SERVICES MANAGER) Phosphorus 3.2 [facility] Specimen Blood Narrative Performed At [facility] Outside Lab Verified by Federico Phillips on 06/26/2019. Performing Organization Address City/State[facility] Ph one Number [facility] * URIC ACID (06/25/2019 8:39 AM SURGICAL SERVICES MANAGER) Uric Acid 5.8 [facility] Specimen Blood Narrative Performed At [facility] Outside Lab Verified by Federico Phillips on 06/26/2019. Performing Organization Address City/State/[facility] Ph one Number [facility] * URINALYSIS DIPSTICK REFLEX TO CULTURE (06/25/2019 8:39 AM SURGICAL SERVICES MANAGER) Color,UA Yellow [facility] Turbidity,UA CleaR [facility] Glucose,UA 3+ (A) Negative [facility] Bilirubin,UA Negative [facility] Ketones,UA Negative [facility] Specific 1.020 [facility] [place]-Urine Blood,UA 2+ (A) Negative [facility] pH,UA 5.0 [facility] Protein,UA 2+ (A) Negative [facility] Urobilinogen,UA 0.2 (A) 0.2 - 1.0 [facility] INTERFAC E Nitrite,UA Negative [facility] Leukocytes,UA Negative [facility] Specimen Urine Narrative Performed At [facility] INTER[facility] Outside Lab Verified by Federico Phillips on 06/26/2019. Performing Organization Address City/State[facility] Ph one Number [facility] INTER[facility] * URINALYSIS MICROSCOPIC REFLEX TO CULTURE (06/25/2019 8:39 AM SURGICAL SERVICES MANAGER) WBCs,UA Few (A) [facility] RBCs,UA 20-40 (A) [facility] Specimen Urine Narrative Performed At [facility] INTER[facility] Outside Lab Verified by Federico Phillips on 06/26/2019. 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
--- OUTSIDE RECORDS SUMMARY | 2019-09-28 08:45 | XMS REPORT | Encounter Summary ---
Author Author [facility] Organization [facility] Address Unknown Phone Unavailable Care Team Providers Care Electrogalvanizing Machine Operator Name Role Phone Dania Barksdale MD PCP Jose Huff DO Unavailable Encounter Details Care Team Description Date Type Department Federico Phillips Kidney transplanted; Immunosuppression (HCC) 06/25/2019 Orders Only The [facility] [address] [address] Social History Date Tobacco Use [...] Date Type Specialty Berta Harrison MD [address] [place] [address] Doroteo Enamorado MD 4000 [place] [address] 10/02/2019 Hospital Radiology Encounter documented as of this encounter Goals Goal Patient Associated Recent Progress Patient-Stat Aut hor Goal Type Problems ed? Recover from illness Hospital No Rajani Gallego RN documented as of this encounter Procedures Comments Procedure Name Priority Date/Time Associated Diag nosis TACROLIMUS LEVEL(FK506) Routine 06/18/2019 Kidney transplanted 7:49 AM SPECIAL EVENTS FUNDRAISER Immunosuppression (HCC) documented in this encounter Results * TACROLIMUS LEVEL(FK506) (06/18/2019 7:49 AM SPECIAL EVENTS FUNDRAISER) Tacrolimus 9.9 [facility] Specimen Blood Narrative Performed At LAB[facility] INTERFACE Outside Lab Verified by Federico Phillips on 06/25/2019. 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
--- OUTSIDE RECORDS SUMMARY | 2019-09-28 08:45 | XMS REPORT | Encounter Summary ---
Author Author [facility] Organization [facility] Address Unknown Phone Unavailable Care Team Providers Care Administrative Director Name Role Phone Dania Barksdale MD PCP Jose Huff DO Unavailable Reason for Visit * Reason Comments Results Prograf - no changed Encounter Details Care Team Description Date Type Department Lucia Trinidad, RN Results (Prograf - no changed) 06/22/2019 Telephone The [address] [address] Social History Date Tobacco Use Types Packs/Day [...] Telephone Encounter - Lucia Trinidad, RN - 06/22/2019 10:09 AM SALES PROFESSIONAL BILINGUAL Reviewed pt's labs from 06/21. Creat improved at 3.73. Tacro level from 06/18 9.9, will continue Prograf at same dose. Hgb 8.8, discussed with Dr. Idania Harrison and wi ll start pt on iron supplement. Pt called with results. Ferrous sulfate sent to pt's preferred pharmacy. Pt states he is still feeling well. Pt will repeat labs on Tuesday, 06/25. S PROFESSIONAL BILINGUAL documented in this encounter Plan of Treatment Care Team Description Date Type Specialty Berta Harrison MD 4000 [place] [address] Doroteo Enamorado MD 4000 [place] [address] 10/02/2019 Hospital Radiology Encounter documented as of this encounter Goals Goal Patient Associated Recent Progress Patient-Stat Aut hor Goal Type Problems ed? Recover from illness [facility] Rajani Ac, JAIME documented as of this encounter Visit Diagnoses Not on filedocumented in this encounter
--- OUTSIDE RECORDS SUMMARY | 2019-09-28 08:45 | XMS REPORT | Encounter Summary ---
Author Author [facility] Organization [facility] Address Unknown Phone Unavailable Care Team Providers Care Spring Floor Service Worker Name Role Phone Dania Barksdale MD PCP Jose Huff DO Unavailable Encounter Details Care Team Description Date Type Department Verónica Palm MD [address] [place] [address] Research subject (Primary Dx) 06/27/2019 Orders Only The [facility] [address] [address] Social History Date Tobacco Use [...] Date Type Specialty Berta Harrison MD 4000 [place] [address] Doroteo Enamorado MD 4000 [place] [address] [phone] 10/02/2019 Hospital Radiology Encounter documented as of this encounter Goals Goal Patient Associated Recent Progress Patient-Stat Aut hor Goal Type Problems ed? Recover from illness Hospital Rajani Ac RN documented as of this encounter Results * RESEARCH BLOOD COLLECTION ONLY (06/28/2019 10:13 AM REINFORCED STEEL PLACING SUPERVISOR) Research Blood COLLECTED REFERENCE LAB Collection Only Specimen Blood Performing Organization Address City/State/Zipcome Ph one Number REFERENCE LAB REFERENCE LAB See results for address. documented in this encounter Visit Diagnoses Diagnosis Research subject documented in this encounter
--- OUTSIDE RECORDS SUMMARY | 2019-09-28 08:45 | XMS REPORT | Encounter Summary ---
Author Author [facility] Organization [facility] Address Unknown Phone Unavailable Care Team Providers Care Hospitality Team Member Name Role Phone Dania Barksdale MD PCP Jose Huff DO Unavailable Encounter Details Care Team Description Date Type Department Berta Harrison MD [address] [place], [place] [id number] 06/28/2019 [facility] System Social History Date Tobacco Use [...] Medical Use to 1 each 0 Supply [facility] monitor blood pressure as directed. omeprazole DR(+) [...] Date Type Specialty Berta Harrison MD [address] [place] [address] Doroteo Enamorado MD [address] [place] [address] 10/02/2019 Hospital Radiology Encounter documented as of this encounter Goals Goal Patient Associated Recent Progress Patient-Stat Aut hor Goal Type Problems ed? Recover from illness [facility] Rajani Gallego RN documented as of this encounter Procedures Comments Procedure Name Priority Date/Time Associated Diag nosis ALLOSURE Routine 06/28/2019 Kidney replaced by 1:37 PM CONVERTIBLE TOP INSTALLER transplant URINALYSIS MICROSCOPIC Routine 06/28/2019 Kidney transplanted REFLEX TO CULTURE 10:17 AM CONVERTIBLE TOP INSTALLER HC URINALYSIS UAR Routine 06/28/2019 Kidney trans planted 10:17 AM CONVERTIBLE TOP INSTALLER HC TP/CR RATIO, RANDOM Routine 06/28/2019 Kidney transplanted 10:17 AM CONVERTIBLE TOP INSTALLER RESEARCH BLOOD COLLECTION Routine 06/28/2019 Rese arch subject ONLY 10:13 AM CONVERTIBLE TOP INSTALLER HC CMV DNA QN BY PCR Routine 06/28/2019 Kidney tr ansplanted 10:13 AM CONVERTIBLE TOP INSTALLER HC BK VIRUS DNA, QUANT Routine 06/28/2019 Kidney transplanted 10:13 AM CONVERTIBLE TOP INSTALLER HC FK 506 Routine 06/28/2019 Kidney transpla nted 10:13 AM CONVERTIBLE TOP INSTALLER HC CBC W/ AUTOMATED DIFF Routine 06/28/2019 Kidne y transplanted 10:13 AM CONVERTIBLE TOP INSTALLER HC URIC ACID Routine 06/28/2019 Kidney transpla nted 10:13 AM CONVERTIBLE TOP INSTALLER HC PHOSPHOROUS, SERUM Routine 06/28/2019 Kidney t ransplanted 10:13 AM CONVERTIBLE TOP INSTALLER HC MAGNESIUM Routine 06/28/2019 Kidney transpla nted 10:13 AM CONVERTIBLE TOP INSTALLER HC LD(LDH;LACTIC Add on 06/28/2019 Kidney transp lanted DEHYDROGENASE) 10:13 AM CONVERTIBLE TOP INSTALLER Kidney replaced by transplant HC COMPREHENSIVE Routine 06/28/2019 Kidney transp lanted METABOLIC PANEL 10:13 AM CONVERTIBLE TOP INSTALLER documented in this encounter Results * ALLOSURE (06/28/2019 1:37 PM CONVERTIBLE TOP INSTALLER) Pathologist [facility] SHIPPED VIA [facility] FIRST REFERENCE LAB OVERNIGHT ON 06/28/2019. RESULTS WILL BE SENT DIRECTLY TO THE ORDERING PHYSICIAN. Specimen Blood Performing Organization Address [facility] one [facility] REFERENCE LAB REFERENCE LAB See results for address. * PROTEIN/CR RATIO,UR RAN (06/28/2019 10:17 AM CONVERTIBLE TOP INSTALLER) Pathologist [facility] Protein, Random 158 MG/DL [facility] MAIN LAB Creatinine, 237 MG/DL [facility] MAIN LAB Random Protein/CR 0.7 [facility] MAIN LAB ratio Specimen Urine - Urine Performing Organization Address [facility] one Number MAIN LAB [address] [place] [address] * URINALYSIS MICROSCOPIC REFLEX TO CULTURE (06/28/2019 10:17 AM CONVERTIBLE TOP INSTALLER) Pathologist [facility] WBCs,UA PACKED 0 - 2 /HPF [facility] MAIN LAB RBCs,UA 20-50 0 - 3 /HPF [facility] MAIN LAB Comment,UA Criteria for reflex to culture [facility] are WBC>10, Positive Nitrite, and/or >=+1 leukocytes. If quantity is not sufficient, an addendum will follow. MucousUA TRACE [facility] MAIN LAB Squamous 0-2 0 - 5 [facility] MAIN LAB Epithelial Cells Hyaline Cast 5-10 [facility] MAIN LAB Specimen Urine Performing Organization Address [facility] one Number MAIN LAB [address] [place] [phone] * URINALYSIS DIPSTICK REFLEX TO CULTURE (06/28/2019 10:17 AM CONVERTIBLE TOP INSTALLER) Color,UA PENNY MAIN LAB Turbidity,UA CLEAR CLEAR-CLEAR [facility] MAIN LAB Specific 1.018 1.003 - 1.035 MAIN LAB [place]-Urine pH,UA 5.0 5.0 - 8.0 [facility] MAIN LAB Protein,UA 2+ (A) NEG-NEG MAIN LAB Glucose,UA 2+ (A) NEG-NEG [facility] MAIN LAB Ketones,UA NEG NEG-NEG [facility] MAIN LAB Bilirubin,UA NEG NEG-NEG MAIN LAB Blood,UA 2+ (A) NEG-NEG MAIN LAB Urobilinogen,UA NORMAL NORM-NORMAL MAIN LAB Nitrite,UA NEG NEG-NEG [facility] MAIN LAB Leukocytes,UA 2+ (A) NEG-NEG MAIN LAB Urine Ascorbic NEG NEG-NEG MAIN LAB Acid, UA Specimen Urine Performing Organization Address City/[facility] Ph one Number MAIN LAB [address] [place] [address] * LDH-LACTATE DEHYDROGENASE (06/28/2019 10:13 AM CONVERTIBLE TOP INSTALLER) Lactate 162 100 - 210 U/L [facility] Dehydrogenase Specimen Performing Organization Address City/[facility]/Zipcode Ph one Number [facility] [address] [place] [address] * TACROLIMUS LEVEL([id number]) (06/28/2019 10:13 AM CONVERTIBLE TOP INSTALLER) Tacrolimus 16.6 (HH) 2 - 15 NG/ML [facility] Comment: CRITICAL VALUE CALLED TO AND READ BACK BY/TIME/TECH JAIME MORALEZ at 06/28/2019 12:58:34 by 1110 Target concentrations vary by type of transplant, patient response, concomitant immunosuppression and post-transplant time interval. Test was performed on whole blood using [employer] QMS reagent and a Liliana Alfonso AU analyzer. Specimen Blood Performing Organization Address City/[facility]/Zipcode Ph one Number [facility] [address] [place] [address] * CMV QUANT PCR-BLOOD (06/28/2019 10:13 AM CONVERTIBLE TOP INSTALLER) IU/mL CMV Blood <50 IU/mL [facility] The test method detects and [...] DETECTED [IU]/mL Specimen Blood Performing Organization Address [facility] Ph one Number MAIN LAB [address] [place] [address] * BK VIRUS DNA, QUANT PLASMA (06/28/2019 10:13 AM CONVERTIBLE TOP INSTALLER) BK Virus Plasma BK Virus Not Detected BKND-BK Virus Not K[facility] M AIN LAB Quant Detected BK Virus Plasma This assay uses analyte MAIN LAB Comment specific reagents and has n ot been cleared by the [place] Food and Drug Administration. The performance characteristics were determined by the [facility]. Specimen Blood Performing Organization Address [facility] Ph one Number MAIN LAB [address] [place] [address] * URIC ACID (06/28/2019 10:13 AM CONVERTIBLE TOP INSTALLER) Uric Acid 6.5 4.0 - 8.0 MG/DL MAIN LAB Specimen Blood Performing Organization Address [facility] Ph one Number MAIN LAB [address] [place] [address] * PHOSPHORUS (06/28/2019 10:13 AM CONVERTIBLE TOP INSTALLER) Phosphorus 3.1Comment: NOTE NEW REFERENCE 2.0 - 4.5 MG/DL [facility] MAIN LAB RANGES Specimen Blood Performing Organization Address [facility] Ph one Number MAIN LAB [address] [place] [address] * MAGNESIUM (06/28/2019 10:13 AM CONVERTIBLE TOP INSTALLER) Magnesium 1.7 1.6 - 2.6 mg/dL MAIN LAB Specimen Blood Performing Organization Address [facility] Ph one Number MAIN LAB [address] [place] [address] * COMPREHENSIVE METABOLIC PANEL (06/28/2019 10:13 AM CONVERTIBLE TOP INSTALLER) Sodium 138 137 - 147 MMOL/L [facility] MAIN LAB Potassium 5.1 3.5 - 5.1 MMOL/L MAIN LAB Chloride 111 (H) 98 - 110 MMOL/L [facility] MAIN LAB Glucose 150 (H) 70 - 100 MG/DL [facility] MAIN LAB Blood Urea 30 (H) 7 - 25 MG/DL [facility] MAIN LAB Nitrogen Creatinine 4.22 (H) 0.4 - 1.24 MG/DL [facility] MAIN LAB Calcium 9.1 8.5 - 10.6 MG/DL [facility] MAIN LAB Total Protein 6.1 6.0 - 8.0 G/DL [facility] MAIN LAB Total Bilirubin 0.3 0.3 - 1.2 MG/DL [facility] MAIN LAB Albumin 3.9 3.5 - 5.0 G/DL [facility] MAIN LAB Alk Phosphatase 103 25 - 110 U/L [facility] MAIN LAB AST (SGOT) 11 7 - 40 U/L [facility] MAIN LAB CO2 20 (L) 21 - 30 MMOL/L [facility] MAIN LAB ALT (SGPT) 11 7 - 56 U/L [facility] MAIN LAB Anion Gap 7 3 - 12 [facility] MAIN LAB eGFR Non 15 (L) >60 mL/min [facility] MAIN LAB Comment: Somali The eGFR is not validated f or use in drug dosing adjustments. Continue to use estimated creatinine clearance per dosing reference text. Please contact the Clinical Pharmacist for questions. eGFR 18 (L) >60 mL/min [facility] MAIN LAB Somali Comment: The eGFR is not validated for use in drug dosing adjustments. Continue to use estimated creatinine clearance per dosing reference text. Please contact the Clinical Pharmacist for questions. Specimen Blood Performing Organization Address City/State/Zipcode Ph one Number [facility]U MAIN LAB [address] [place] [address] * CBC AND DIFF (06/28/2019 10:13 AM CONVERTIBLE TOP INSTALLER) White Blood 5.3 4.5 - 11.0 K/UL [facility] MAIN LAB Cells RBC 2.93 (L) 4.4 - 5.5 M/UL [facility] MAIN LAB Hemoglobin 9.4 (L) 13.5 - 16.5 GM/DL [facility] MAIN LAB Hematocrit 28.2 (L) 40 - 50 % [facility] MAIN LAB MCV 96.1 80 - 100 FL [facility] MAIN LAB MCH 31.9 26 - 34 PG [facility] MAIN LAB MCHC 33.2 32.0 - 36.0 G/DL [facility] MAIN LAB RDW 14.9 11 - 15 % [facility] MAIN LAB Platelet Count 172 150 - 400 K/UL [facility] MAIN LAB MPV 9.3 7 - 11 FL [facility] MAIN LAB Neutrophils 84 (H) 41 - 77 % [facility] MAIN LAB Lymphocytes 5 (L) 24 - 44 % [facility] MAIN LAB Monocytes 9 4 - 12 % [facility] MAIN LAB Eosinophils 1 0 - 5 % [facility] MAIN LAB Basophils 1 0 - 2 % [facility] MAIN LAB Absolute 4.50 1.8 - 7.0 K/UL [facility] MAIN LAB Neutrophil Count Absolute Lymph 0.20 (L) 1.0 - 4.8 K/UL [facility] MAIN LAB Count Absolute 0.50 0 - 0.80 K/UL [facility] MAIN LAB Monocyte Count Absolute 0.10 0 - 0.45 K/UL [facility] MAIN LAB Eosinophil Count Absolute 0.00 0 - 0.20 K/UL [facility] MAIN LAB Basophil Count Specimen Blood Performing Organization Address City/State/Zipcode Ph one Number KU MAIN LAB [address] [place] [address] * RESEARCH BLOOD COLLECTION ONLY (06/28/2019 10:13 AM CONVERTIBLE TOP INSTALLER) Research Blood COLLECTED REFERENCE LAB Collection Only Specimen Blood Performing Organization Address City/State/[facility] Ph one Number REFERENCE LAB REFERENCE LAB See results for address. 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
--- OUTSIDE RECORDS SUMMARY | 2019-09-28 08:45 | XMS REPORT | Encounter Summary ---
Author Author [facility] Organization [facility] Address Unknown Phone Unavailable Care Team Providers Care Pmp Certified Project Manager Name Role Phone Dania Barksdale MD PCP Jose Huff DO Unavailable Encounter Details Care Team Description Date Type Department Berta Harrison MD [address] [place] [address] 06/28/2019 [facility] [address] [address] Social History Date Tobacco Use [...] Medical Use to 1 each 0 Supply [facility] monitor blood pressure as directed. omeprazole DR(+) [...] Date Type Specialty Berta Harrison MD [address] [place] [address] Doroteo Enamorado MD [address] [place] [address] 10/02/2019 Hospital Radiology Encounter documented as of this encounter Goals Goal Patient Associated Recent Progress Patient-Stat Aut hor Goal Type Problems ed? Recover from illness [facility] Rajani Ac RN documented as of this encounter Procedures Comments Procedure Name Priority Date/Time Associated Diag nosis US KIDNEY TRANSPLANT Routine 06/28/2019 Kidney re placed by 12:20 PM VACUUM FORMING MACHINE OPERATOR transplant HC INFLUENZA A/B AND 06/28/2019 RSVPCR 11:07 AM VACUUM FORMING MACHINE OPERATOR HC CULTURE-URINE 06/28/2019 10:17 AM VACUUM FORMING MACHINE OPERATOR documented in this encounter Results * US KIDNEY TRANSPLANT (06/28/2019 12:20 PM VACUUM FORMING MACHINE OPERATOR) Specimen Impressions Performed At 1. Mild ectasia [...] Interface, Radiant Results - 06/28/2019 12:21 PM VACUUM FORMING MACHINE OPERATOR ULTRASOUND OF TRANSPLANT KIDNEY CLINICAL INDICATION: 49-year-old [...] on 06/28/2019 12:11 PM. Performing Organization Address City/State/[facility] Ph one Number RAD RESULTS * INFLUENZA A/B AND RSV PCR (06/28/2019 11:07 AM VACUUM FORMING MACHINE OPERATOR) Influenza A NEG NEG-NEG [facility] MAIN LAB Virus Influenza B NEG NEG-NEG [facility] MAIN LAB Virus RSV NEG NEG-NEG MAIN LAB Specimen Performing Organization Address City/[facility] Ph one Number MAIN LAB [address] [place] [address] * CULTURE-URINE W/SENSITIVITY (06/28/2019 10:17 AM VACUUM FORMING MACHINE OPERATOR) Battery Name URINE CULTURE MAIN LAB Specimen URINE MAIN LAB Description Special NONE MAIN LAB Requests Culture NO GROWTH [facility] MAIN LAB Report Status FINAL MAIN LAB 06/29/2019 Specimen Urine Performing Organization Address [facility] Ph one Number MAIN LAB [address] [place] [address] documented in this encounter Visit Diagnoses Diagnosis Kidney replaced by transplant documented in this encounter
--- OUTSIDE RECORDS SUMMARY | 2019-09-28 08:46 | XMS REPORT | Encounter Summary ---
Author Author [facility] Organization [facility] Address Unknown Phone Unavailable Care Team Providers Care Care Analyst Name Role Phone Dania Barksdale MD PCP Jose Huff DO Unavailable Encounter Details Care Team Description Date Type Department [facility] [address] [facility] [place] [address] [phone] 06/14/2019 [facility] Social History Date Tobacco [...] by mouth every 4 hours as needed. fluoxetine (PROZAC) 40 mg Take 40 mg by 0 capsule mouth daily. insulin pump -ASPART- by SubQ Pump 0 Patients Own route Three times daily with meals and as needed. liraglutide (VICTOZA) 0.6 Inject 0.6 mg 0 mg/0.1 mL (18 mg/3 mL) under the injection pen skin daily. 06/01/2019 Miscellaneous Medical Use to 1 each 0 Supply [facility] monitor blood pressure as directed. omeprazole DR(+) [...] by unit) capsule mouth every 7 days. 06/05/2019 06/28/2019 furosemide (LASIX) 40 mg Take 1.5 45 tablet 11 tablet tablets by mouth every morning. 06/01/2019 06/28/2019 metoprolol tartrate Take one-half 30 tablet 5 (LOPRESSOR) 25 mg tablet tablet by mouth twice daily. 05/28/2019 07/12/[address] Take four 240 [...] Date Type Specialty Berta Harrison MD [address] [place] [address] Doroteo Enamorado MD [address] [place] [address] 10/02/2019 Hospital Radiology Encounter documented as of this encounter Goals Goal Patient Associated Recent Progress Patient-Stat Aut hor Goal Type Problems ed? Recover from illness [facility] Rajani Ac RN documented as of this encounter Procedures Comments Procedure Name Priority Date/Time Associated Diag nosis URINALYSIS MICROSCOPIC Routine 06/14/2019 Kidney transplanted REFLEX TO CULTURE 9:43 AM OB NURSE HC URINALYSIS UAR Routine 06/14/2019 Kidney trans planted 9:43 AM OB NURSE HC TP/CR RATIO, RANDOM Routine 06/14/2019 Kidney transplanted 9:43 AM OB NURSE HC FK 506 Routine 06/14/2019 Kidney transpla nted 7:41 AM OB NURSE HC CBC W/ AUTOMATED DIFF Routine 06/14/2019 Kidne y transplanted 7:41 AM OB NURSE HC URIC ACID Routine 06/14/2019 Kidney transpla nted 7:41 AM OB NURSE HC PHOSPHOROUS, SERUM Routine 06/14/2019 Kidney t ransplanted 7:41 AM OB NURSE HC MAGNESIUM Routine 06/14/2019 Kidney transpla nted 7:41 AM OB NURSE HC COMPREHENSIVE Routine 06/14/2019 Kidney transp lanted METABOLIC PANEL 7:41 AM OB NURSE documented in this encounter Results * URINALYSIS MICROSCOPIC REFLEX TO CULTURE (06/14/2019 9:43 AM OB NURSE) WBCs,UA 20-50 0 - 2 /HPF [facility] MAIN LAB RBCs,UA 0-2 0 - 3 /HPF [facility] MAIN LAB Comment,UA Criteria for reflex to culture [facility] are WBC>10, Positive Nitrite, and/or >=+1 leukocytes. If quantity is not sufficient, an addendum will follow. Bacteria,UA FEW (A) NEG-NEG [facility] MAIN LAB Squamous 0-2 0 - 5 [facility] MAIN LAB Epithelial Cells Specimen Urine Performing Organization Address [facility] Ph one Number KU MAIN LAB [address] [place] [address] * URINALYSIS DIPSTICK REFLEX TO CULTURE (06/14/2019 9:43 AM OB NURSE) Color,UA YELLOW [facility] MAIN LAB Turbidity,UA CLEAR CLEAR-CLEAR [facility] MAIN LAB Specific 1.016 1.003 - 1.035 K[facility] MAIN LAB [place]-Urine pH,UA 6.0 5.0 - 8.0 K[facility] MAIN LAB Protein,UA 2+ (A) NEG-NEG [facility] MAIN LAB Glucose,UA 1+ (A) NEG-NEG [facility] MAIN LAB Ketones,UA NEG NEG-NEG [facility] MAIN LAB Bilirubin,UA NEG NEG-NEG [facility] MAIN LAB Blood,UA 1+ (A) NEG-NEG [facility] MAIN LAB Urobilinogen,UA NORMAL NORM-NORMAL [facility] MAIN LAB Nitrite,UA NEG NEG-NEG [facility] MAIN LAB Leukocytes,UA 3+ (A) NEG-NEG [facility] MAIN LAB Urine Ascorbic NEG NEG-NEG [facility] MAIN LAB Acid, UA Specimen Urine Performing Organization Address [facility] Ph one Number KU MAIN LAB [address] [place] [address] * PROTEIN/CR RATIO,UR RAN (06/14/2019 9:43 AM OB NURSE) Protein, Random 94 MG/DL [facility] MAIN LAB Creatinine, 114 MG/DL [facility] MAIN LAB Random Protein/CR 0.8 [facility] MAIN LAB ratio Specimen Urine - Urine Performing Organization Address [facility] Ph one Number KU MAIN LAB [address] [place] [address] * TACROLIMUS LEVEL([id number]) (06/14/2019 7:41 AM OB NURSE) Tacrolimus 13.1 2 - 15 NG/ML [facility] MAIN LAB Comment: Target concentrations vary by type of transplant, patient response, concomitant immunosuppression and post-transplant time interval. Test was performed on whole blood using [employer] QMS reagent and a Liliana Alfonso AU analyzer. Specimen Blood Performing Organization Address [facility] Ph one Number MAIN LAB [address] [place] [address] * URIC ACID (06/14/2019 7:41 AM OB NURSE) Uric Acid 7.1 4.0 - 8.0 MG/DL [facility] MAIN LAB Specimen Blood Performing Organization Address [facility] Ph one Number MAIN LAB [address] [place] [address] * PHOSPHORUS (06/14/2019 7:41 AM OB NURSE) Phosphorus 4.2Comment: NOTE NEW REFERENCE 2.0 - 4.5 MG/DL [facility] MAIN LAB RANGES Specimen Blood Performing Organization Address [facility] Ph one Number KU MAIN LAB [address] [place] [phone] * MAGNESIUM (06/14/2019 7:41 AM OB NURSE) Magnesium 1.8 1.6 - 2.6 mg/dL [facility] MAIN LAB Specimen Blood Performing Organization Address [facility] one Number MAIN LAB [address] [place] [address] * COMPREHENSIVE METABOLIC PANEL (06/14/2019 7:41 AM OB NURSE) Sodium 141 137 - 147 MMOL/L [facility] MAIN LAB Potassium 3.9 3.5 - 5.1 MMOL/L [facility] MAIN LAB Chloride 105 98 - 110 MMOL/L [facility] MAIN LAB Glucose 77 70 - 100 MG/DL K[facility] MAIN LAB Blood Urea 40 (H) 7 - 25 MG/DL [facility] MAIN LAB Nitrogen Creatinine 3.60 (H) 0.4 - 1.24 MG/DL [facility] MAIN LAB Calcium 9.2 8.5 - 10.6 MG/DL [facility] MAIN LAB Total Protein 6.2 6.0 - 8.0 G/DL [facility] MAIN LAB Total Bilirubin 0.5 0.3 - 1.2 MG/DL [facility] MAIN LAB Albumin 3.6 3.5 - 5.0 G/DL [facility] MAIN LAB Alk Phosphatase 72 25 - 110 U/L [facility] MAIN LAB AST (SGOT) 11 7 - 40 U/L [facility] MAIN LAB CO2 24 21 - 30 MMOL/L [facility] MAIN LAB ALT (SGPT) 7 7 - 56 U/L [facility] MAIN LAB Anion Gap 12 3 - 12 K[facility] MAIN LAB eGFR Non 18 (L) >60 mL/min K[facility] MAIN LAB Comment: Russian The eGFR is not validated f or use in drug dosing adjustments. Continue to use estimated creatinine clearance per dosing reference text. Please contact the Clinical Pharmacist for questions. eGFR 22 (L) >60 mL/min KU MAIN LAB Russian Comment: The eGFR is not validated for use in drug dosing adjustments. Continue to use estimated creatinine clearance per dosing reference text. Please contact the Clinical Pharmacist for questions. Specimen Blood Performing Organization Address City/State/Zipcode Ph one Number KU MAIN LAB [address] [place] [address] * CBC AND DIFF (06/14/2019 7:41 AM OB NURSE) White Blood 4.6 4.5 - 11.0 K/UL [facility] MAIN LAB Cells RBC 2.96 (L) 4.4 - 5.5 M/UL [facility] MAIN LAB Hemoglobin 9.4 (L) 13.5 - 16.5 GM/DL [facility] MAIN LAB Hematocrit 28.1 (L) 40 - 50 % K[facility] MAIN LAB MCV 95.0 80 - 100 FL K[facility] MAIN LAB MCH 31.8 26 - 34 PG [facility] MAIN LAB MCHC 33.5 32.0 - 36.0 G/DL [facility] MAIN LAB RDW 14.4 11 - 15 % [facility] MAIN LAB Platelet Count 161 150 - 400 K/UL [facility] MAIN LAB MPV 8.6 7 - 11 FL K[facility] MAIN LAB Neutrophils 85 (H) 41 - 77 % [facility] MAIN LAB Lymphocytes 4 (L) 24 - 44 % [facility] MAIN LAB Monocytes 7 4 - 12 % K[facility] MAIN LAB Eosinophils 3 0 - 5 % [facility] MAIN LAB Basophils 1 0 - 2 % [facility] MAIN LAB Absolute 3.90 1.8 - 7.0 K/UL K[facility] MAIN LAB Neutrophil Count Absolute Lymph 0.20 (L) 1.0 - 4.8 K/UL [facility] MAIN LAB Count Absolute 0.30 0 - 0.80 K/UL [facility] MAIN LAB Monocyte Count Absolute 0.20 0 - 0.45 K/UL [facility] MAIN LAB Eosinophil Count Absolute 0.00 0 - 0.20 K/UL [facility] MAIN LAB Basophil Count Specimen Blood Performing Organization Address City/State/Zipcode Ph one Number KU MAIN LAB [address] [place] [address] 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 documented in this encounter
--- OUTSIDE RECORDS SUMMARY | 2019-09-28 08:46 | XMS REPORT | Encounter Summary ---
Author Author [facility] Organization [facility] Address Unknown Phone Unavailable Care Team Providers Care Fancy Needleworker Name Role Phone Dania Barksdale MD PCP Jose Huff DO Unavailable Reason for Visit * Reason Comments Results Prograf - no change Encounter Details Care Team Description Date Type Department Lucia Trinidad, RN Results (Prograf - no change) 06/14/[address] [address] Social History Date Tobacco Use Types Packs/Day [...] Telephone Encounter - Lucia Trinidad, RN - 06/14/2019 4:11 PM LUMBER RACKER Reviewed pt's labs from 06/12. Creat improved at 3.60. Tacro level therapeutic at 13.1. No changes to medications. Discussed with Dr. Idania Harrison and pt OK'd to go h ome. Called and notified pt. Pt will complete labs on Mondays and at [facility]. ER RACKER documented in this encounter Plan of Treatment Care Team Description Date Type Specialty Berta Harrison MD [address] [place] [address] Doroteo Enamorado MD [address] [place] [address] 10/02/2019 Hospital Radiology Encounter documented as of this encounter Goals Goal Patient Associated Recent Progress Patient-Stat Aut hor Goal Type Problems ed? Recover from illness [facility] Rajani Ac, RN documented as of this encounter Visit Diagnoses Not on filedocumented in this encounter
--- OUTSIDE RECORDS SUMMARY | 2019-09-28 08:46 | XMS REPORT | Encounter Summary ---
Author Author [facility] Organization [facility] Address Unknown Phone Unavailable Care Team Providers Care Report Clerk Name Role Phone Dania Barksdale MD PCP Jose Huff DO Unavailable Encounter Details Care Team Description Date Type Department Federico Phillips Kidney transplanted; Immunosuppression (HCC) 06/18/2019 Orders Only [facility] [address] [address] Social History Date Tobacco Use [...] Date Type Specialty Berta Harrison MD 4000 [place] [address] Doroteo Enamorado MD 4000 [place] [address] 10/02/2019 Hospital Radiology Encounter documented as of this encounter Goals Goal Patient Associated Recent Progress Patient-Stat Aut hor Goal Type Problems ed? Recover from illness [facility] Rajani Ac RN documented as of this encounter Procedures Comments Procedure Name Priority Date/Time Associated Diag nosis URINALYSIS MICROSCOPIC Routine 06/18/2019 Kidney transplanted REFLEX TO CULTURE 7:49 AM ETL INFORMATICA ARCHITECT Immunosuppression ( HCC) URINALYSIS DIPSTICK Routine 06/18/2019 Kidney tra nsplanted REFLEX TO CULTURE 7:49 AM ETL INFORMATICA ARCHITECT Immunosuppression ( HCC) PROTEIN/CR RATIO,UR RAN Routine 06/18/2019 Kidney transplanted 7:49 AM ETL INFORMATICA ARCHITECT Immunosuppression (HCC) CBC AND DIFF Routine 06/18/2019 Kidney transpla nted 7:49 AM ETL INFORMATICA ARCHITECT Immunosuppression (HCC) URIC ACID Routine 06/18/2019 Kidney transpla nted 7:49 AM ETL INFORMATICA ARCHITECT Immunosuppression (HCC) PHOSPHORUS Routine 06/18/2019 Kidney transpla nted 7:49 AM ETL INFORMATICA ARCHITECT Immunosuppression (HCC) MAGNESIUM Routine 06/18/2019 Kidney transpla nted 7:49 AM ETL INFORMATICA ARCHITECT Immunosuppression (HCC) COMPREHENSIVE METABOLIC Routine 06/18/2019 Kidney transplanted PANEL 7:49 AM ETL INFORMATICA ARCHITECT Immunosuppression ( HCC) documented in this encounter Results * URINALYSIS MICROSCOPIC REFLEX TO CULTURE (06/18/2019 7:49 AM ETL INFORMATICA ARCHITECT) Bacteria,UA Trace (A) LABDE INTERFACE Specimen Urine Narrative Performed At LABDE INTERFACE Outside Lab Verified by Federico Phillips on 06/18/2019. Performing Organization Address City/State/Zipcode Ph one Number LABDE INTERFACE * URINALYSIS DIPSTICK REFLEX TO CULTURE (06/18/2019 7:49 AM ETL INFORMATICA ARCHITECT) Color,UA Yellow LABDE INTERFACE Turbidity,UA Slightly Cloudy (A) Clear LABDE INTE RFACE Glucose,UA Trace (A) Negative LABDE INTERFACE Bilirubin,UA Negative LABDE INTERFACE Ketones,UA Negative [facility] INTERFACE Specific 1.025 LABDE INTERFACE [place]-Urine Blood,UA 2+ (A) Negative LABDE INTERFACE pH,UA 5.5 LABDE INTERFACE Protein,UA 2+ (A) Negative LABDE INTERFACE Urobilinogen,UA 0.2 (A) 0.2 - 1.0 LABDE INTERFAC E Nitrite,UA Negative LABDE INTERFACE Leukocytes,UA 1+ (A) Negative LABDE INTERFACE Specimen Urine Narrative Performed At LABDE INTERFACE Outside Lab Verified by Federicomarta Ledbetterht on 06/18/2019. Performing Organization Address City/State/[facility] Ph one Number LABDE INTERFACE * URIC ACID (06/18/2019 7:49 AM ETL INFORMATICA ARCHITECT) Uric Acid 6.8 LABDE INTERFACE Specimen Blood Narrative Performed At LABDE INTERFACE Outside Lab Verified by Federicomarta Ledbetterht on 06/18/2019. Performing Organization Address [facility] Ph one Number LABDE INTERFACE * PHOSPHORUS (06/18/2019 7:49 AM ETL INFORMATICA ARCHITECT) Phosphorus 3.8 LABDE INTERFACE Specimen Blood Narrative Performed At LABDE INTERFACE Outside Lab Verified by Federicomarta Ledbetterht on 06/18/2019. Performing Organization Address [facility]/State/[facility] Ph one Number LABDE INTERFACE * MAGNESIUM (06/18/2019 7:49 AM ETL INFORMATICA ARCHITECT) Magnesium 2.0 LABDE INTERFACE Specimen Blood Narrative Performed At LABDE INTERFACE Outside Lab Verified by Federicomarta Phillips on 06/18/2019. Performing Organization Address City/State/[facility] Ph one Number LABDE INTERFACE * COMPREHENSIVE METABOLIC PANEL (06/18/2019 7:49 AM ETL INFORMATICA ARCHITECT) Sodium 139 mmol/L LABDE INTERFACE Potassium 5.0 mmol/L LABDE INTERFACE Chloride 110 mmol/L LABDE INTERFACE CO2 20 (L) 22 - 33 LABDE INTERFACE Anion Gap 14 LABDE INTERFACE Glucose 149 (H) 70 - 110 mg/dL LABDE INTERFACE Blood Urea 44 (H) 5 - 25 mg/dL LABDE INTERFACE Nitrogen Creatinine 3.91 (H) 0.50 - 1.50 mg/dL LABDE INTERF RAMON Calcium 8.7 mg/dL LABDE INTERFACE Alk Phosphatase 82 U/L LABDE INTERFAC E AST (SGOT) 11 U/L LABDE INTERFACE ALT (SGPT) 11 LABDE INTERFACE Total Bilirubin 0.3 mg/dL LABDE INTERFAC E Total Protein 5.8 (L) 6.0 - 8.3 g/dL LABDE INTERFACE Albumin 3.6 g/dL LABDE INTERFACE eGFR Non 17 (L) >59 mL/min/1.73 m2 LABDE INTER FACE Specimen Blood Narrative Performed At LABDE INTERFACE Outside Lab Verified by Federico Phillips on 06/18/2019. Performing Organization Address [facility] one Number LABDE INTERFACE * CBC AND DIFF (06/18/2019 7:49 AM ETL INFORMATICA ARCHITECT) Pathologist [facility] White Blood 3.91 (L) 5.00 - 10.00 LABDE INTERFACE Cells RBC 2.81 (L) 4.20 - 5.40 LABDE INTERFACE Hemoglobin 9.1 (L) 14.0 - 17.0 LABDE INTERFACE Hematocrit 28.0 (L) 42.0 - 52.0 LABDE INTERFACE MCV 99.6 (H) 80.0 - 97.0 LABDE INTERFACE MCH 32.4 (H) 27.0 - 31.2 LABDE INTERFACE MCHC 32.5 LABDE INTERFACE Platelet Count 147 (L) 150 - 400 LABDE INTERFACE RDW 13.3 LABDE INTERFACE Absolute 3.23 LABDE INTERFACE Neutrophil Count Neutrophils 82.6 (H) 37.0 - 80.0 LABDE INTERFACE Absolute Lymph 0.21 (L) 0.60 - 3.40 LABDE INTERFACE Count Lymphocytes 5.4 (L) 10.0 - 50.0 LABDE INTERFACE Absolute 0.3 LABDE INTERFACE Monocyte Count Monocytes 7.9 LABDE INTERFACE Absolute 0.2 LABDE INTERFACE Eosinophil Count Eosinophil 3.8 LABDE INTERFACE Absolute 0.0 LABDE INTERFACE Basophil Count Basophil 0.30 LABDE INTERFACE MPV 11.3 (H) 7.4 - 10.0 LABDE INTERFACE Specimen Blood Narrative Performed At LABDE INTERFACE Outside Lab Verified by Federico Phillips on 06/18/2019. Performing Organization Address City/[facility] Ph one Number LABDE INTERFACE * PROTEIN/CR RATIO,UR RAN (06/18/2019 7:49 AM ETL INFORMATICA ARCHITECT) Creatinine, 151.9 (H) 0.0 - 50.0 LABDE INTERFACE Random Protein, Random 69 (H) 0 - 20 LABDE INTERFAC E Protein/CR 0.45 LABDE INTERFACE ratio Specimen Urine - Urine Narrative Performed At LABDE INTERFACE Outside Lab Verified by Federico Phillips on 06/18/2019. 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
--- OUTSIDE RECORDS SUMMARY | 2019-09-28 08:46 | XMS REPORT | Encounter Summary ---
Author Author [facility] Organization [facility] Address Unknown Phone Unavailable Care Team Providers Care Viscosity Tester Name Role Phone Dania Barksdale MD PCP Jose Huff DO Unavailable Encounter Details Care Team Description Date Type Department No Show 06/14/2019 Nurse Only [facility] [address] [address] Social History Date Tobacco Use [...] Date Type Specialty Berta Harrison MD 4000 [place] [address] Doroteo Enamorado MD 4000 [place] [address] [phone] 10/02/2019 Hospital Radiology Encounter documented as of this encounter Goals Goal Patient Associated Recent Progress Patient-Stat Aut hor Goal Type Problems ed? Recover from illness [facility] Rajani Ac RN documented as of this encounter Visit Diagnoses Not on filedocumented in this encounter
--- OUTSIDE RECORDS SUMMARY | 2019-09-28 08:46 | XMS REPORT | Encounter Summary ---
Author Author [facility] Organization [facility] Address Unknown Phone Unavailable Care Team Providers Care Student Life Coordinator Name Role Phone Dania Barksdale MD PCP Jose Huff DO Unavailable Encounter Details Care Team Description Date Type Department Berta Harrison MD 4000 [place] [address] [phone] 06/12/2019 [facility] Social History Date Tobacco Use [...] Medical Use to 1 each 0 Supply [facility] monitor blood pressure as directed. omeprazole DR(+) [...] Date Type Specialty Berta Harrison MD [address] [place] [address] [phone] Doroteo Enamorado MD [address] [place] [address] 10/02/2019 Hospital Radiology Encounter documented as of this encounter Goals Goal Patient Associated Recent Progress Patient-Stat Aut hor Goal Type Problems ed? Recover from illness [facility] Rajani Ac RN documented as of this encounter Procedures Comments Procedure Name Priority Date/Time Associated Diag nosis HC TP/CR RATIO, RANDOM Routine 06/12/2019 Kidney transplanted 8:17 AM ENTERPRISE RESOURCE PLANNER UA REFLEX CULTURE LABEL 06/12/2019 8:16 AM ENTERPRISE RESOURCE PLANNER URINALYSIS MICROSCOPIC Routine 06/12/2019 Kidney transplanted REFLEX TO CULTURE 8:16 AM ENTERPRISE RESOURCE PLANNER HC URINALYSIS UAR Routine 06/12/2019 Kidney trans planted 8:16 AM ENTERPRISE RESOURCE PLANNER RESEARCH BLOOD COLLECTION Routine 06/12/2019 Rese arch subject ONLY 8:11 AM ENTERPRISE RESOURCE PLANNER HC FK 506 Routine 06/12/2019 Kidney transpla nted 8:11 AM ENTERPRISE RESOURCE PLANNER HC CBC W/ AUTOMATED DIFF Routine 06/12/2019 Kidne y transplanted 8:11 AM ENTERPRISE RESOURCE PLANNER HC URIC ACID Routine 06/12/2019 Kidney transpla nted 8:11 AM ENTERPRISE RESOURCE PLANNER HC PHOSPHOROUS, SERUM Routine 06/12/2019 Kidney t ransplanted 8:11 AM ENTERPRISE RESOURCE PLANNER HC MAGNESIUM Routine 06/12/2019 Kidney transpla nted 8:11 AM ENTERPRISE RESOURCE PLANNER HC COMPREHENSIVE Routine 06/12/2019 Kidney transp lanted METABOLIC PANEL 8:11 AM ENTERPRISE RESOURCE PLANNER documented in this encounter Results * PROTEIN/CR RATIO,UR RAN (06/12/2019 8:17 AM ENTERPRISE RESOURCE PLANNER) Protein, Random 87 MG/DL [facility] LAB Creatinine, 95 MG/DL [facility] Random Protein/CR 0.9 [facility] ratio Specimen Urine - Urine Performing Organization Address [facility] Ph one Number MAIN LAB [address] [place] [address] * UA REFLEX CULTURE LABEL (06/12/2019 8:16 AM ENTERPRISE RESOURCE PLANNER) UA Reflex Criteria for reflex to culture [facility] TODD N LAB Culture are WBC>10, Positive Nitrit e, and/or >=+1 leukocytes. If quantity is not sufficient, an addendum will follow. Specimen Performing Organization Address [facility] Ph one Number MAIN LAB [address] [place] [address] * URINALYSIS MICROSCOPIC REFLEX TO CULTURE (06/12/2019 8:16 AM ENTERPRISE RESOURCE PLANNER) WBCs,UA 20-50 0 - 2 /HPF [facility] RBCs,UA 2-10 0 - 3 /HPF [facility] Comment,UA Criteria for reflex to culture [facility] TOD[facility] N LAB are WBC>10, Positive Nitrite, and/or >=+1 leukocytes. If quantity is not sufficient, an addendum will follow. MucousUA TRACE [facility] Squamous 0-2 0 - 5 [facility] Epithelial Cells Specimen Urine Performing Organization Address [facility] Ph one Number MAIN LAB [address] [place] [address] * URINALYSIS DIPSTICK REFLEX TO CULTURE (06/12/2019 8:16 AM ENTERPRISE RESOURCE PLANNER) Color,UA YELLOW [facility] Turbidity,UA CLEAR CLEAR-CLEAR [facility] Specific 1.014 1.003 - 1.035 [facility] MAIN LAB [place]-Urine pH,UA 6.0 5.0 - 8.0 [facility] MA[facility] Protein,UA 2+ (A) NEG-NEG MAIN LAB Glucose,UA 1+ (A) NEG-NEG MAIN LAB Ketones,UA NEG NEG-NEG [facility] Bilirubin,UA NEG NEG-NEG [facility] Blood,UA 1+ (A) NEG-NEG MAIN LAB Urobilinogen,UA NORMAL NORM-NORMAL MAIN LAB Nitrite,UA NEG NEG-NEG MAIN LAB Leukocytes,UA 1+ (A) NEG-NEG MAIN LAB Urine Ascorbic NEG NEG-NEG MAIN LAB Acid, UA Specimen Urine Performing Organization Address [facility] Ph one Number MAIN LAB [address] [place] [address] * TACROLIMUS LEVEL([id number]) (06/12/2019 8:11 AM ENTERPRISE RESOURCE PLANNER) Tacrolimus 10.8 2 - 15 NG/ML MAIN LAB Comment: Target concentrations vary by type of transplant, patient response, concomitant immunosuppression and post-transplant time interval. Test was performed on whole blood using ClassifEye QMS reagent and a Liliana [place] AU analyzer. Specimen Blood Performing Organization Address [facility] Ph one Number MAIN LAB [address] [place] [address] * URIC ACID (06/12/2019 8:11 AM ENTERPRISE RESOURCE PLANNER) Uric Acid 7.7 4.0 - 8.0 MG/DL MAIN LAB Specimen Blood Performing Organization Address [facility] Ph one Number MAIN LAB [address] [place] [address] * PHOSPHORUS (06/12/2019 8:11 AM ENTERPRISE RESOURCE PLANNER) Phosphorus 5.2 (H)Comment: NOTE NEW 2.0 - 4.5 MG/DL [facility] LAB REFERENCE RANGES Specimen Blood Performing Organization Address [facility] Ph [facility] Number MA[facility] LAB [address] [place] [address] * MAGNESIUM (06/12/2019 8:11 AM ENTERPRISE RESOURCE PLANNER) Magnesium 1.6 1.6 - 2.6 mg/dL MAIN LAB Specimen Blood Performing Organization Address [facility] Ph one Number MAIN LAB [address] [place] [address] * COMPREHENSIVE METABOLIC PANEL (06/12/2019 8:11 AM ENTERPRISE RESOURCE PLANNER) Pathologist [facility] Sodium 139 137 - 147 MMOL/L [facility] Potassium 3.9 3.5 - 5.1 MMOL/L [facility] Chloride 101 98 - 110 MMOL/L [facility] Glucose 132 (H) 70 - 100 MG/DL [facility] Blood Urea 42 (H) 7 - 25 MG/DL [facility] Nitrogen Creatinine 4.18 (H) 0.4 - 1.24 MG/DL [facility] Calcium 8.7 8.5 - 10.6 MG/DL [facility] Total Protein 6.1 6.0 - 8.0 G/DL [facility] Total Bilirubin 0.4 0.3 - 1.2 MG/DL [facility] Albumin 3.6 3.5 - 5.0 G/DL [facility] Alk Phosphatase 74 25 - 110 U/L [facility] AST (SGOT) 11 7 - 40 U/L [facility] CO2 27 21 - 30 MMOL/L [facility] ALT (SGPT) 7 7 - 56 U/L [facility] Anion Gap 11 3 - 12 [facility] eGFR Non 15 (L) >60 mL/min [facility] Comment: [place] The eGFR is not validated f or use in drug dosing adjustments. Continue to use estimated creatinine clearance per dosing reference text. Please contact the Clinical Pharmacist for questions. eGFR 19 (L) >60 mL/min [facility] LAB [place] Comment: The eGFR is not validated for use in drug dosing adjustments. Continue to use estimated creatinine clearance per dosing reference text. Please contact the Clinical Pharmacist for questions. Specimen Blood Performing Organization Address City/State/Zipcode Ph one Number [facility] MAIN [facility] [address] [place] [address] * CBC AND DIFF (06/12/2019 8:11 AM ENTERPRISE RESOURCE PLANNER) White Blood 6.8 4.5 - 11.0 K/UL [facility] Cells RBC 2.93 (L) 4.4 - 5.5 M/UL [facility] Hemoglobin 9.4 (L) 13.5 - 16.5 GM/DL [facility] Hematocrit 27.7 (L) 40 - 50 % [facility] MCV 94.4 80 - 100 FL [facility] MCH 32.1 26 - 34 PG [facility] MCHC 34.0 32.0 - 36.0 G/DL [facility] RDW 14.6 11 - 15 % [facility] Platelet Count 168 150 - 400 K/UL [facility] MPV 8.8 7 - 11 FL [facility] Neutrophils 89 (H) 41 - 77 % [facility] Lymphocytes 2 (L) 24 - 44 % [facility] Monocytes 6 4 - 12 % [facility] Eosinophils 2 0 - 5 % [facility] Basophils 1 0 - 2 % [facility] Absolute 6.10 1.8 - 7.0 K/UL [facility] Neutrophil Count Absolute Lymph 0.20 (L) 1.0 - 4.8 K/UL [facility] Count Absolute 0.40 0 - 0.80 K/UL [facility] Monocyte Count Absolute 0.10 0 - 0.45 K/UL [facility] Eosinophil Count Absolute 0.00 0 - 0.20 K/UL [facility] Basophil Count Specimen Blood Performing Organization Address City/State/[facility] Ph one Number [facility] [address] [place] [address] * RESEARCH BLOOD COLLECTION ONLY (06/12/2019 8:11 AM ENTERPRISE RESOURCE PLANNER) Research Blood COLLECTED REFERENCE LAB Collection Only Specimen Blood Performing Organization Address City/State/[facility] Ph one Number REFERENCE LAB REFERENCE LAB See results for address. 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
--- OUTSIDE RECORDS SUMMARY | 2019-09-28 08:46 | XMS REPORT | Encounter Summary ---
Author Author [facility] Organization [facility] Address Unknown Phone Unavailable Care Team Providers Care Shot Bagger Name Role Phone Dania Barksdale MD PCP Jose Huff DO Unavailable Reason for Visit * Reason Comments s/p Kidney Transplant Encounter Details Care Team Description Date Type Department Berta Harrison MD [address] [place], [place] [id number] Kidney replaced by transplant (Primary D x) 06/14/2019 Office Visit [facility] [address] [id number] Social History Date Tobacco Use Types Packs/Day [...] of this encounter Progress Notes * Lucia Trinidad, RN - 06/14/2019 8:00 AM SUPERVISOR LENS GENERATING Pt to clinic after lab drawn. Pt stated CORI drain had pulled out a little bit in the shower. NC assessed and drain slightly out. Discussed with Dr. Idania Harrison and will d/c drain and place ostomy bag over site for collection. CORI drain had 30mL yesterday, serous drainage. Instructed pt to continue measuring output, pt OK'd to remove bag if output stops. ATTESTATION: I discussed with RN about the plan. D/C CORI drain and place an ostomy bag over the drain site. Berta Harrison MD Date: 06/15/2019 RVISOR LENS GENERATING documented in this encounter Plan of Treatment Care Team Description Date Type Specialty Berta Harrison MD [address] [place] [address] Doroteo Enamorado MD [address] [place], [place] [id number] 10/02/2019 Hospital Radiology Encounter documented as of this encounter Goals Goal Patient Associated Recent Progress Patient-Stat Aut hor Goal Type Problems ed? Recover from illness [facility] Rajani Ac RN documented as of this encounter Procedures Comments Procedure Name Priority Date/Time Associated Diag nosis UA REFLEX CULTURE LABEL 06/14/2019 9:43 AM SUPERVISOR LENS GENERATING HC CULTURE-URINE 06/14/2019 9:43 AM SUPERVISOR LENS GENERATING documented in this encounter Results * CULTURE-URINE W/SENSITIVITY (06/14/2019 9:43 AM SUPERVISOR LENS GENERATING) Battery Name URINE CULTURE [facility] Specimen URINE [facility] Description Special NONE [facility] Requests Culture NO GROWTH [facility] Report Status FINAL [facility] 06/15/2019 Specimen Urine Performing Organization Address City/[facility] Ph one Number [facility] MA[facility] [address] [place] [address] * UA REFLEX CULTURE LABEL (06/14/2019 9:43 AM SUPERVISOR LENS GENERATING) UA Reflex Criteria for reflex to culture [facility] TOD[facility] N LAB Culture are WBC>10, Positive Nitrit e, and/or >=+1 leukocytes. If quantity is not sufficient, an addendum will follow. Specimen Performing Organization Address City/[facility] Ph one Number [facility] [address] [place] [address] documented in this encounter Visit Diagnoses Diagnosis Kidney replaced by transplant documented in this encounter
--- OUTSIDE RECORDS SUMMARY | 2019-09-28 08:46 | XMS REPORT | Encounter Summary ---
Author Author [facility] Organization [facility] Address Unknown Phone Unavailable Care Team Providers Care Clean Out Driller Helper Name Role Phone Dania Barksdale MD PCP Jose Huff DO Unavailable Reason for Visit * Reason Comments Results Prograf (no change) Encounter Details Care Team Description Date Type Department Lucia Trinidad, RN Results (Prograf (no change)) 06/12/[address] [address] Social History Date Tobacco Use Types Packs/Day [...] Telephone Encounter - Lucia Trinidad, RN - 06/12/2019 2:49 PM SLEDGER Reviewed pt's labs and clinic note from 06/12. Creat improved at 4.18. Tacro level therapeutic at 10.8, no changes to medications at this time. Pt stopped lasix, continuing prednisone. Pt to f/u with blanket inspector after he returns home. Kee abbasi resident assessed pt's thumb, recommended wet to dry dressing, pt given sup plies. Pt will repeat labs on , 06/14, and will assess if pt can return home. Pt will RTC in 2 weeks. GER documented in this encounter Plan of Treatment Care Team Description Date Type Specialty Berta Harrison MD [address] [place] [address] Doroteo Enamorado MD 4000 [place] [address] 10/02/2019 Hospital Radiology Encounter documented as of this encounter Goals Goal Patient Associated Recent Progress Patient-Stat Aut hor Goal Type Problems ed? Recover from illness [facility] Rajani Ac, JAIME documented as of this encounter Visit Diagnoses Not on filedocumented in this encounter
--- OUTSIDE RECORDS SUMMARY | 2019-09-28 08:46 | XMS REPORT | Encounter Summary ---
Author Author [facility] Organization [facility] Address Unknown Phone Unavailable Care Team Providers Care Event Specialist Food Demonstrator Name Role Phone Dania Barksdale MD PCP Jose Huff DO Unavailable Encounter Details Care Team Description Date Type Department Carla Castañeda RN 06/14/2019 Documentation The [facility] [address] [address] Social History Date Tobacco Use [...] Date Type Specialty Berta Harrison MD [address] [place] [address] Doroteo Enamorado MD [address] [place] [address] 10/02/2019 Hospital Radiology Encounter documented as of this encounter Goals Goal Patient Associated Recent Progress Patient-Stat Aut hor Goal Type Problems ed? Recover from illness [facility] No Rajani Gallego RN documented as of this encounter Visit Diagnoses Not on filedocumented in this encounter
--- OUTSIDE RECORDS SUMMARY | 2019-09-28 08:48 | XMS REPORT | Encounter Summary ---
Author Author [facility] Organization [facility] Address Unknown Phone Unavailable Care Team Providers Care Tub Tender Name Role Phone Dania Barksdale MD PCP Jose Huff DO Unavailable Reason for Visit * Reason Comments s/p Kidney Transplant Encounter Details Care Team Description Date Type Department Berta Harrison MD [address] [place], [place] [id number] Kidney transplanted (Primary Dx); Immunosuppression (HCC) 06/12/2019 Office Visit [facility] [address] [address] Social History Date Tobacco Use Types Packs/Day [...] Signs Reading Time Taken Comments Vital Sign 130/67 06/12/2019 8:35 AM RISK CONTROL MANAGER Blood Pressure 85 06/12/2019 8:35 AM RISK CONTROL MANAGER Pulse 36.4 C (97.5 F) 06/12/2019 8:35 AM RISK CONTROL MANAGER Temperature 17 06/12/2019 8:35 AM RISK CONTROL MANAGER Respiratory Rate 99% 06/12/2019 8:35 AM RISK CONTROL MANAGER Oxygen Saturation - - Inhaled Oxygen Concentration 98.8 kg (217 lb 12.8 oz) 06/12/2019 8:35 AM RISK CONTROL MANAGER Weight 167.6 cm (5' 6") 06/12/2019 8:35 AM RISK CONTROL MANAGER Height 35.15 06/12/2019 8:35 AM RISK CONTROL MANAGER Body Mass Index documented in this encounter [...] * Patient Instructions* Lucia Trinidad RN - 06/12/2019 9:00 AM RISK CONTROL MANAGER Instructions: Return to see Dr: Berta Harrison in 2 weeks Obtain repeat labs Twice per week Further testing needs: Schedule follow up with Milking System Installer. Medication changes: Stop Lasix. 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 Malathi Owen, We had the pleasure of meeting Mr. Pace in the [facility] Transplant Clinic for routine evaluation of his renal transplant. Making excellent urine. Cr down trending, last HD was 06/04/19 Feels less bloated, stool is more formed, C diff was -ve. Denies hospitalizations, illnesses, fevers, chills, chest pains, sob, abd pains, swelling, rash, dysuria, hematuria. CORI drain 70 since last night, 200 cc yesterday, Reports nausea, no vomiting, REVIEW OF SYSTEMS: [...] Last attempt to quit: 12/17/2001 Years since quittin.4 Smokeless tobacco: Never Used Substance and Sexual [...] 7 days., Disp: 12 capsule, Rfl: 0 fluoxetine (PROZAC) 40 mg capsule, Take 40 mg by mouth daily., Disp: , Rfl: furosemide (LASIX) 40 mg tablet, Take 1.5 tablets by mouth every morning., Disp: 45 tablet, Rfl: 11 insulin pump -ASPART- Patients Own, by [employer] Pump route Three times daily wi th meals and as needed., Disp: , Rfl: liraglutide (VICTOZA) 0.6 mg/0.1 mL (18 mg/3 mL) injection pen, Inject 0.6 mg under the skin daily., Disp: , Rfl: metoprolol tartrate (LOPRESSOR) 25 mg tablet, Take one-half tablet by mouth twice daily., Disp: 30 tablet, Rfl: 5 Miscellaneous Medical [facility] Use to monitor blood pressure as directe d., Disp: 1 each, Rfl: 0 mycophenolate [...] 60 tablet, Rfl: 5 Physical Exam: BP 130/67 (BP Source: Arm, Right Upper, Patient Position: Sitting) | Pulse 85 | Temp 36.4 C (97.5 F) (Oral) | Resp 17 | Ht 167.6 cm (66") | Wt 98.8 kg (217 lb 12.8 oz) | SpO2 99% | BMI 35.15 kg/m General: In NAD; A&Ox3, looks improved than last visit Skin: Warm, dry, no signs of rash HEENT: Grossly normal appearing Neck: Supple CV: Regular, regular rate, normal S1/S2, no murmurs Lungs: CTA bilaterally in posterior jalloh Abd: Grossly normal without rebound, guarding, masses, or bruits. Transplant non tender, distended abdomen, CORI drain on right LQ, held by small suture Ext: significant edema;left AVF with button holes Neuro: No focal deficits Psych: Affect appropriate Laboratory studies: CMP: CMP Latest Ref Rng & Units 06/12/2019 06/07/2019 06/05/2019 06/04/2019 06/01/2019 NA 137 - 147 MMOL/L 139 136(L) 141 140 138 K 3.5 - 5.1 MMOL/L 3.9 4.5 3.9 3.5 3.8 CL 98 - 110 MMOL/L 101 100 105 102 99 CO2 21 - 30 MMOL/L 27 19(L) 23 24 26 GAP 3 - 12 11 17(H) 13(H) 14(H) 13(H) BUN 7 - 25 MG/DL 42(H) 62(H) 71(H) 80(H) 63(H) CR 0.4 - 1.24 MG/DL 4.18(H) 5.44(H) 6.26(H) 7.35(H) 6.80(H) GLUX 70 - 100 MG/DL 132(H) 302(H) 168(H) 66(L) 216(H) CA 8.5 - 10.6 MG/DL 8.7 8.4(L) 8.2(L) 8.2(L) 8.3(L) TP 6.0 - 8.0 G/DL 6.1 5.9(L) 6.0 5.9(L) - ALB 3.5 - 5.0 G/DL 3.6 3.5 3.6 3.6 - ALKP 25 - 110 U/L 74 71 76 72 - ALT 7 - 56 U/L 7 8 10 10 - TBILI 0.3 - 1.2 MG/DL 0.4 0.5 0.4 0.4 - GFR >60 mL/min 15(L) 11(L) 10(L) 8(L) 9(L) GFRAA >60 mL/min 19(L) 14(L) 12(L) 10(L) 11(L) No results found for: LIPASE No results found for: TAO CMV DNA Quant PCR ([IU]/mL) Date Value 06/04/2019 CMV DNA NOT DETECTED IU/mL CMV Blood (no units) Date Value 06/04/2019 <50 IU/mL The test method detects and quantitates CMV DNA using the Young RealTime assay, and is approved by the FDA for monitoring hematopoietic stem cell transplant patients who are undergoing anti-CMV therapy. Please correlate results with the clinical status of the patient. No results found for: COPIES No results found for: EBVDNAQT TACROLIMUS LEVEL: Tacrolimus (NG/ML) Date Value 06/12/2019 10.8 06/07/2019 8.9 06/04/2019 11.5 06/01/2019 11.8 05/31/2019 16.2 (HH) 05/31/2019 CANCELED BY LAB SYSTEM 05/30/2019 15.7 (H) 05/29/2019 17.5 (HH) CBC with Diff: CBC with Diff Latest Ref Rng & Units 06/12/2019 06/07/2019 WBC 4.5 - 11.0 K/UL 6.8 7.4 RBC 4.4 - 5.5 M/UL 2.93(L) 2.84(L) HGB 13.5 - 16.5 GM/DL 9.4(L) 9.4(L) HCT 40 - 50 % 27.7(L) 27.5(L) MCV 80 - 100 FL 94.4 96.7 MCH 26 - 34 PG 32.1 33.0 MCHC 32.0 - 36.0 G/DL 34.0 34.1 RDW 11 - 15 % 14.6 14.5 PLT 150 - 400 K/UL 168 154 MPV 7 - 11 FL 8.8 9.4 NEUT 41 - 77 % 89(H) 90(H) ANC 1.8 - 7.0 K/UL 6.10 6.60 LYMA 24 - 44 % 2(L) 1(L) ALYM 1.0 - 4.8 K/UL 0.20(L) 0.10(L) ANGELA 4 - 12 % 6 7 AMONO 0 - 0.80 K/UL 0.40 0.50 EOSA 0 - 5 % 2 2 AEOS 0 - 0.45 K/UL 0.10 0.10 BASA 0 - 2 % 1 0 ABAS 0 - 0.20 K/UL 0.00 0.00 Hemoglobin A1C (%) Date Value 05/27/2019 7.9 (H) 04/19/2019 8.4 (H) 12/17/2016 11.4 (H) Urinalysis: Lab Results Component Value Date/Time UCOLOR YELLOW 06/12/2019 08:16 AM TURBID CLEAR 06/12/2019 08:16 AM USPGR 1.014 06/12/2019 08:16 AM UPH 6.0 06/12/2019 08:16 AM UPROTEIN 2+ (A) 06/12/2019 08:16 AM UAGLU 1+ (A) 06/12/2019 08:16 AM UKET NEG 06/12/2019 08:16 AM UBILE NEG 06/12/2019 08:16 AM UBLD 1+ (A) 06/12/2019 08:16 AM UROB NORMAL 06/12/2019 08:16 AM Protein/CR ratio (no units) Date Value 06/12/2019 0.9 06/07/2019 DUPLICATE ORDER 06/07/2019 0.8 06/04/2019 0.8 Imaging: Results for orders placed during [...] orders placed during the hospital encounter of 06/05/19 CHEST 2 VIEWS Impression 1. Mild cardiomegaly with decreased pulmonary venous congestion. 2. Opacities in left lung base, likely atelectasis and/or scar. Finalized by Antoinette Conroy M.D. on 06/05/2019 1:55 PM. Dictated by Antoinette galan M.D. on 06/05/2019 1:54 PM. Assessment and Plan: Mr. 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 # DDRT Complicated by delayed graft function-likely from ATN kidney, DCD, size m ismatch. - Cr downtrending 4.18, Excellent UOP - Stent remains in - CORI drain ~200cc ion last 24 hours, will keep for now # Immunosuppression - On maintenance Triple drug therapy - Goal tacrolimus level of goal 10-15 ng/mL (MEIA) or 8-12 mcg/L (HPLC). - Currently taking Prograf 5mg mg BID, level 10.8 - MPA 720 mg BID and prednisone 5 mg # ID Proph - CMV D+/R- to treat with Valcyte for 9 months post transplant - PJP Prophylax, to treat with Bactrim for 1 year post transplant - Completed Nystatin # Hypertension: Good control - ON tamsulosin, metoprolol 12.5mg BID - continues to be hypervolemic, but improving kidney function- asked to hold of lasix as monitor UOP # DM/ Hyperglycemia - On Insulin pump - Asked patient to go see his manager salt ( insulin requirement going down w ith improving kidney function, has to stop the pump more frequently) # Anemia - Hb 9.4 Tsat 27%, ferritin 883, will monitor for now # Electrolytes: - Phos,mag, Na, K WNL # Incidental injury over left thumb - Will get evaluated by surgery - Does not look infected RTC in 2 week Labs twice a week Sincerely, Berta Harrison MD Kidney and Pancreas Transplant Cc: Malathi Owen Cc: Dania Barksdale Please contact the [facility] at [phone] for any transplant related questions or concerns that may arise . CONTROL MANAGER * Lucia Trinidad RN - 06/12/2019 9:00 AM RISK CONTROL MANAGER First visit: 06/05/19 IS: Myfortic 720BID Prograf 09/10 05/30: HD session while inpatient 06/01: hospital d/c 06/04: HD session as outpatient 06/12 ROS: Weight is down 4lbs since last week. UO ~2L daily. CORI drain output was 200mL daily last week, 70mL yesterday. Pt is feeling well today. Still taking la six and prednisone Plan: Will provide pt with external lab orders. Will stop lasix today. Keep CORI d rain. Surgery assessed thumb, wet to dry dressings. Transplant Synopsis: Date: 05/27/2019 Donor: DCD from a female donor in early 50's KDPI: 60% CPRA: 0% DSA: none Induction: Thymo for steroid avoidance CMV status: D+/R- Post-op course: DGF Ureteral stent removal: 07/09/19 Baseline Scr: TBD Clinical trial: none Referring coat feller: Brayden Surgeon: Morales PMH: DM 1, Seizure disorder, depression, GREGORY, Vit D deficiency, obesity CONTROL MANAGER documented in this encounter Plan of Treatment Care Team Description Date Type Specialty Berta Harrison MD [address] [place] [address] Doroteo Enamorado MD [address] [place] [address] 10/02/2019 [facility] Radiology Encounter Order Schedule Name Type Priority Associated Diag noses Twice a week for 25 Occurrences starting 06/12/2019 until 06/12/2020, 24 completed MAGNESIUM Lab Routine Kidney transpla nted Immunosuppression (HCC) Twice a week for 25 Occurrences starting 06/12/2019 until 06/12/2020, 24 completed PROTEIN/CR RATIO,UR RAN Lab Routine Kidney transplanted Immunosuppression (HCC) Every 4 weeks for 25 Occurrences startin g 06/12/2019 until 06/12/2020, 2 completed BK VIRUS DNA, QUANT Lab Routine Kidney tra nsplanted PLASMA Immunosuppression (HCC) Every 4 weeks for 25 Occurrences startin g 06/12/2019 until 06/12/2020, 2 completed CMV QUANT PCR-BLOOD Lab Routine Kidney tra nsplanted Immunosuppression (HCC) Twice a week for 25 Occurrences starting 06/12/2019 until 06/12/2020, 24 completed TACROLIMUS LEVEL([id number]) Lab Routine Kidney transplanted Immunosuppression (HCC) documented as of this encounter Goals Goal Patient Associated Recent Progress Patient-Stat Aut hor Goal Type Problems ed? Recover from illness [facility] Rajani Ac RN documented as of this encounter Procedures Comments Procedure Name Priority Date/Time Associated Diag nosis HC CULTURE-URINE 06/12/2019 8:16 AM RISK CONTROL MANAGER documented in this encounter Results * URIC ACID (09/24/2019 8:18 AM CDT) Uric Acid 5.3 LABDE INTERFACE Specimen Blood Narrative Performed At LABDE INTERFACE Outside Lab Verified by Federico Phillips on 09/24/2019. Performing Organization Address [facility] Ph one Number LABDE INTERFACE * PROTEIN/CR RATIO,UR RAN (09/24/2019 8:18 AM CDT) Protein, Random 37 (H) 0 - 20 LABDE INTERFAC E Creatinine, 101.4 (H) 0.0 - 50.0 LABDE INTERFACE Random Protein/CR 0.36 LABDE INTERFACE ratio Specimen Urine - Urine Narrative Performed At LABDE INTERFACE Outside Lab Verified by Federico Phillips on 09/24/2019. Performing Organization Address [facility] Ph one Number LABDE INTERFACE * MAGNESIUM (09/24/2019 8:18 AM CDT) Magnesium 2.0 LABDE INTERFACE Specimen Blood Narrative Performed At LABDE INTERFACE Outside Lab Verified by Federico Jacqueline on 09/24/2019. Performing Organization Address [facility] Ph one Number LABDE INTERFACE * TACROLIMUS LEVEL([id number]) (09/20/2019 7:31 AM CDT) Tacrolimus 7.0 LABDE INTERFACE Specimen Blood Narrative Performed At LABDE INTERFACE Outside Lab Verified by Federicomarta Ledbetterht on 09/24/2019. Performing Organization Address City/[facility] one Number LABDE INTERFACE * URIC ACID (09/20/2019 7:31 AM CDT) Uric Acid 5.7 LABDE INTERFACE Specimen Blood Narrative Performed At LABDE INTERFACE Outside Lab Verified by Kandy crowe 09/20/2019. Performing Organization Address [facility] one Number LABDE INTERFACE * PROTEIN/CR RATIO,UR RAN (09/20/2019 7:31 AM CDT) Protein, Random 82 (H) 0 - 20 LABDE INTERFAC E Creatinine, 155.2 (H) 0.0 - 50.0 LABDE INTERFACE Random Protein/CR 0.53 LABDE INTERFACE ratio Specimen Urine - Urine Narrative Performed At LABDE INTERFACE Outside Lab Verified by Kandy crowe 09/20/2019. Performing Organization Address [facility] LABDE INTERFACE * PHOSPHORUS (09/20/2019 7:31 AM CDT) Phosphorus 2.5 LABDE INTERFACE Specimen Blood Narrative Performed At LABDE INTERFACE Outside Lab Verified by Kandy crowe 09/20/2019. Performing Organization Address [facility] one Number LABDE INTERFACE * MAGNESIUM (09/20/2019 7:31 AM CDT) Magnesium 1.9 LABDE INTERFACE Specimen Blood Narrative Performed At LABDE INTERFACE Outside Lab Verified by Kandy crowe 09/20/2019. Performing Organization Address [facility] one Number LABDE INTERFACE * COMPREHENSIVE METABOLIC [...] by Kandy crowe 09/20/2019. Performing Organization Address [facility] Ph one [...] by Kandy crowe 09/20/2019. Performing Organization Address [facility] Ph one Number LABDE INTERFACE * TACROLIMUS LEVEL([id number]) (09/17/2019 8:16 AM CDT) Tacrolimus 8.4 LABDE INTERFACE Specimen Blood Narrative Performed At LABDE INTERFACE Outside Lab Verified by Kandy crowe 09/20/2019. Performing Organization Address [facility] Ph one Number LABDE INTERFACE * URINALYSIS MICROSCOPIC REFLEX TO CULTURE (09/17/2019 8:16 AM CDT) WBCs,UA Negative Negative LABDE INTERFACE RBCs,UA 0-2 (A) LABDE INTERFACE Bacteria,UA Negative LABDE INTERFACE Squamous None /HPF LABDE INTERFACE Epithelial Cells Specimen Urine Narrative Performed At LABDE INTERFACE Outside Lab Verified by Kandy crowe 09/17/2019. Performing Organization Address [facility] Ph one Number LABDE INTERFACE * URINALYSIS DIPSTICK REFLEX TO CULTURE (09/17/2019 8:16 AM CDT) Color,UA Yellow Lt. Yellow LABDE INTERFACE Turbidity,UA Clear LABDE INTERFACE Glucose,UA Trace (A) Negative LABDE INTERFACE Bilirubin,UA Negative Negative LABDE INTERFACE Ketones,UA Negative Negative LABDE INTERFACE Specific 1.025 1.000 - 1.030 LABDE INTERFACE [place]-Urine Blood,UA 1+ (A) Negative LABDE INTERFACE pH,UA 5.5 LABDE INTERFACE Protein,UA 1+ (A) Negative LABDE INTERFACE Urobilinogen,UA 0.2 LABDE INTERFACE Nitrite,UA Negative LABDE INTERFACE Leukocytes,UA Negative LABDE INTERFACE Specimen Urine Narrative Performed At LABDE INTERFACE Outside Lab Verified by Kandy crowe 09/17/2019. Performing Organization Address [facility] Ph one Number LABDE INTERFACE * PROTEIN/CR RATIO,UR RAN (09/17/2019 8:16 AM CDT) Protein, Random 44 (H) 0 - 20 LABDE INTERFAC E Creatinine, 121.5 (H) 0.0 - 50.0 mg/dl LABDE INTERFA CE Random Protein/CR 0.36 LABDE INTERFACE ratio Specimen Urine - Urine Narrative Performed At LABDE INTERFACE Outside Lab Verified by Kandy crowe 09/17/2019. Performing Organization Address [facility] one Number LABDE INTERFACE * PHOSPHORUS (09/17/2019 8:16 AM CDT) Phosphorus 2.3 (L) 2.5 - 4.8 mg/dL LABDE INTERFAC E Specimen Blood Narrative Performed At LABDE INTERFACE Outside Lab Verified by Kandy crowe 09/17/2019. Performing Organization Address [facility] Ph one Number LABDE INTERFACE * MAGNESIUM (09/17/2019 8:16 AM CDT) Magnesium 1.9 1.6 - 2.6 mg/dL LABDE INTERFAC E Specimen Blood Narrative Performed At LABDE INTERFACE Outside Lab Verified by Kandy crowe 09/17/2019. Performing Organization Address [facility] one Number LABDE INTERFACE * COMPREHENSIVE METABOLIC [...] by Kandy crowe 09/17/2019. Performing Organization Address City/[facility] one Number LABDE INTERFACE * CBC [...] by Kandy crowe 09/17/2019. Performing Organization Address [facility] one Number LABDE INTERFACE * TACROLIMUS LEVEL([id number]) (09/13/2019 8:25 AM CDT) Tacrolimus 8.8 LABDE INTERFACE Specimen Blood Narrative Performed At LABDE INTERFACE Outside Lab Verified by Federico Phillips on 09/17/2019. Performing Organization Address [facility] Ph one Number LABDE INTERFACE * URINALYSIS MICROSCOPIC REFLEX TO CULTURE (09/13/2019 8:25 AM CDT) WBCs,UA 0-2 (A) /HPF LABDE INTERFACE RBCs,UA 2-5 (A) LABDE INTERFACE Specimen Urine Narrative Performed At LABDE INTERFACE Outside Lab Verified by Kandy crowe 09/14/2019. Performing Organization Address [facility] Ph one Number LABDE INTERFACE * URINALYSIS DIPSTICK REFLEX TO CULTURE (09/13/2019 8:25 AM CDT) Color,UA Yellow Yellow LABDE INTERFACE Turbidity,UA Clear LABDE INTERFACE Glucose,UA Negative Negative LABDE INTERFACE Bilirubin,UA Negative Negative LABDE INTERFACE Ketones,UA Negative Negative LABDE INTERFACE Specific 1.020 1.000 - 1,030 LABDE INTERFACE [place]-Urine Blood,UA 1+ (A) Negative LABDE INTERFACE pH,UA 5.5 LABDE INTERFACE Protein,UA 2+ (A) Negative LABDE INTERFACE Urobilinogen,UA 0.2 LABDE INTERFACE Nitrite,UA Negative LABDE INTERFACE Leukocytes,UA Negative Negative LABDE INTERFACE Specimen Urine Narrative Performed At LABDE INTERFACE Outside Lab Verified by Kandy crowe 09/14/2019. Performing Organization Address [facility] Ph one Number LABDE INTERFACE * URIC ACID (09/13/2019 8:25 AM CDT) Uric Acid 5.5 2.6 - 7.2 mg/dL LABDE INTERFAC E Specimen Blood Narrative Performed At LABDE INTERFACE Outside Lab Verified by Kandy crowe 09/14/2019. Performing Organization Address [facility] one Number LABDE INTERFACE * PROTEIN/CR RATIO,UR RAN (09/13/2019 8:25 AM CDT) Protein, Random 44 (H) 0 - 20 LABDE INTERFAC E Creatinine, 82.5 (H) 0.0 - 50.0 mg/dl LABDE INTERFA CE Random Protein/CR 0.53 LABDE INTERFACE ratio Specimen Urine - Urine Narrative Performed At LABDE INTERFACE Outside Lab Verified by Kandy crowe 09/14/2019. Performing Organization Address [facility] Ph one Number LABDE INTERFACE * PHOSPHORUS (09/13/2019 8:25 AM CDT) Phosphorus 3.1 LABDE INTERFACE Specimen Blood Narrative Performed At LABDE INTERFACE Outside Lab Verified by Kandy crowe 09/14/2019. Performing Organization Address [facility] Ph one Number LABDE INTERFACE * MAGNESIUM (09/13/2019 8:25 AM CDT) Magnesium 1.9 LABDE INTERFACE Specimen Blood Narrative Performed At LABDE INTERFACE Outside Lab Verified by Kandy crowe 09/14/2019. Performing Organization Address [facility] one Number LABDE INTERFACE * COMPREHENSIVE METABOLIC [...] by Kandy crowe 09/14/2019. Performing Organization Address [facility] one Number LABDE INTERFACE * CBC [...] by Kandy crowe 09/14/2019. Performing Organization Address [facility] one Number LABDE INTERFACE * TACROLIMUS LEVEL([id number]) (09/10/2019 9:52 AM CDT) Tacrolimus 9.8 LABDE INTERFACE Specimen Blood Narrative Performed At LABDE INTERFACE Outside Lab Verified by Federico Phillips on 09/14/2019. Performing Organization Address City/[facility] Ph one Number LABDE INTERFACE * URINALYSIS MICROSCOPIC REFLEX TO CULTURE (09/10/2019 9:52 AM CDT) WBCs,UA Rare /HPF LABDE INTERFACE RBCs,UA 2-5 (A) LABDE INTERFACE Bacteria,UA Negative LABDE INTERFACE Squamous 0-5 (A) LABDE INTERFACE Epithelial Cells Specimen Urine Narrative Performed At LABDE INTERFACE Outside Lab Verified by Kandy crowe 09/10/2019. Performing Organization Address [facility] Ph one Number LABDE INTERFACE * URINALYSIS DIPSTICK REFLEX TO CULTURE (09/10/2019 9:52 AM CDT) Color,UA Yellow Lt. Yellow LABDE INTERFACE Turbidity,UA Clear LABDE INTERFACE Glucose,UA 2+ (A) Negative LABDE INTERFACE Bilirubin,UA Negative Negative LABDE INTERFACE Ketones,UA Negative Negative LABDE INTERFACE Specific 1.020 1.000 - 1,030 LABDE INTERFACE [place]-Urine Blood,UA 1+ (A) Negative LABDE INTERFACE pH,UA 5.5 LABDE INTERFACE Protein,UA 2+ (A) Negative LABDE INTERFACE Urobilinogen,UA 0.2 LABDE INTERFACE Nitrite,UA Negative LABDE INTERFACE Leukocytes,UA Negative Negative LABDE INTERFACE Specimen Urine Narrative Performed At LABDE INTERFACE Outside Lab Verified by Kandy crowe 09/10/2019. Performing Organization Address [facility] Ph one Number LABDE INTERFACE * URIC ACID (09/10/2019 9:52 AM CDT) Uric Acid 6.4 2.6 - 7.2 mg/dL LABDE INTERFAC E Specimen Blood Narrative Performed At LABDE INTERFACE Outside Lab Verified by Kandy crowe 09/10/2019. Performing Organization Address [facility] Ph one Number LABDE INTERFACE * PROTEIN/CR RATIO,UR RAN (09/10/2019 9:52 AM CDT) Protein, Random 55 (H) 0 - 20 LABDE INTERFAC E Creatinine, 107.5 (H) 0.0 - 50.0 mg/dl LABDE INTERFA CE Random Protein/CR 0.51 LABDE INTERFACE ratio Specimen Urine - Urine Narrative Performed At LABDE INTERFACE Outside Lab Verified by Kandy crowe 09/10/2019. Performing Organization Address [facility] Ph one Number LABDE INTERFACE * PHOSPHORUS (09/10/2019 9:52 AM CDT) Phosphorus 2.8 mg/dL LABDE INTERFACE Specimen Blood Narrative Performed At LABDE INTERFACE Outside Lab Verified by Kandy crowe 09/10/2019. Performing Organization Address [facility] Ph one Number LABDE INTERFACE * MAGNESIUM (09/10/2019 9:52 AM CDT) Pathologist [facility] Magnesium 2.1 1.6 - 2.6 mg/dL LABDE INTERFAC E Specimen Blood Narrative Performed At LABDE INTERFACE Outside Lab Verified by Kandy crowe 09/10/2019. Performing Organization Address [facility] Ph one Number LABDE INTERFACE * COMPREHENSIVE METABOLIC PANEL (09/10/2019 9:52 AM CDT) Pathologist [facility] Sodium 138 134 - 148 mmol/L LABDE [...] by Kandy crowe 09/10/2019. Performing Organization Address [facility] Ph one Number LABDE INTERFACE * CBC AND DIFF (09/10/2019 9:52 AM CDT) Pathologist [facility] White Blood 5.95 5.00 - 10.00 K/uL [...] by Kandy crowe 09/10/2019. Performing Organization Address [facility] Ph one Number LABDE INTERFACE * TACROLIMUS LEVEL([id number]) (09/06/2019 9:19 AM CDT) Tacrolimus 10.3 LABDE INTERFACE Specimen Blood Narrative Performed At LABDE INTERFACE Outside Lab Verified by Kandy crowe 09/10/2019. Performing Organization Address [facility] [place] Ph one Number LABDE INTERFACE * URIC ACID (09/06/2019 9:19 AM CDT) Uric Acid 6.0 2.6 - 7.2 mg/dL LABDE INTERFAC E Specimen Blood Narrative Performed At LABDE INTERFACE Outside Lab Verified by Kandy crowe 09/06/2019. Performing Organization Address [facility] Ph one Number LABDE INTERFACE * PROTEIN/CR RATIO,UR RAN (09/06/2019 9:19 AM CDT) Protein, Random 58 (H) 0 - 20 LABDE INTERFAC E Creatinine, 123.0 (H) 0.0 - 50.0 mg/dl LABDE INTERFA CE Random Protein/CR 0.47 LABDE INTERFACE ratio Specimen Urine - Urine Narrative Performed At LABDE INTERFACE Outside Lab Verified by Kandy crowe 09/06/2019. Performing Organization Address [facility] [place] Ph one Number LABDE INTERFACE * PHOSPHORUS (09/06/2019 9:19 AM CDT) Phosphorus 3.3 mg/dL LABDE INTERFACE Specimen Blood Narrative Performed At LABDE INTERFACE Outside Lab Verified by Kandy crowe 09/06/2019. Performing Organization Address [facility] Ph one Number LABDE INTERFACE * MAGNESIUM (09/06/2019 9:19 AM CDT) Pathologist [facility] Magnesium 2.0 1.6 - 2.6 mg/dL LABDE INTERFAC E Specimen Blood Narrative Performed At LABDE INTERFACE Outside Lab Verified by Kandy crowe 09/06/2019. Performing Organization Address [facility] one Number LABDE INTERFACE * COMPREHENSIVE METABOLIC PANEL (09/06/2019 9:19 AM CDT) Sodium 140 134 - 148 mmol/L LABDE [...] by Kandy crowe 09/06/2019. Performing Organization Address City/State/[facility] [place] Ph one Number LABDE INTERFACE * CBC AND DIFF (09/06/2019 9:19 AM CDT) White Blood 6.15 5.00 - 10.00 K/uL [...] one Number LABDE INTERFACE * TACROLIMUS LEVEL([id number]) (09/04/2019 7:47 AM CDT) Tacrolimus 7.8 LABDE INTERFACE Specimen Blood Narrative Performed At LABDE INTERFACE Outside Lab Verified by Kandy crowe 09/07/2019. Performing Organization Address [facility] Ph one Number LABDE INTERFACE * URINALYSIS MICROSCOPIC REFLEX TO CULTURE (09/04/2019 7:47 AM CDT) WBCs,UA Negative LABDE INTERFACE RBCs,UA 0-2 (A) /HPF LABDE INTERFACE Bacteria,UA Negative LABDE INTERFACE Squamous 0-5 (A) LABDE INTERFACE Epithelial Cells Specimen Urine Narrative Performed At LABDE INTERFACE Outside Lab Verified by Kandy crowe 09/06/2019. Performing Organization Address [facility] [place] Ph one Number LABDE INTERFACE * URINALYSIS MICROSCOPIC REFLEX TO CULTURE (09/04/2019 7:47 AM CDT) WBCs,UA Rare (A) LABDE INTERFACE RBCs,UA Negative LABDE INTERFACE Bacteria,UA Negative LABDE INTERFACE Squamous None (A) LABDE INTERFACE Epithelial Cells Specimen Urine Narrative Performed At LABDE INTERFACE Outside Lab Verified by Federico Phillips on 09/04/2019. Performing Organization Address [facility] Ph one Number LABDE INTERFACE * URINALYSIS DIPSTICK REFLEX TO CULTURE (09/04/2019 7:47 AM CDT) Color,UA Yellow Yellow LABDE INTERFACE Turbidity,UA Clear LABDE INTERFACE Glucose,UA Negative Negative LABDE INTERFACE Bilirubin,UA Negative Negative LABDE INTERFACE Ketones,UA Negative Negative LABDE INTERFACE Specific 1.025 1.000 - 1,030 LABDE INTERFACE [place]-Urine Blood,UA 1+ (A) Negative LABDE INTERFACE pH,UA 5.5 LABDE INTERFACE Protein,UA 2+ (A) Negative LABDE INTERFACE Urobilinogen,UA 0.2 (A) 0.2 - 1.0 LABDE INTERFAC E Nitrite,UA Negative LABDE INTERFACE Leukocytes,UA Negative Negative LABDE INTERFACE Specimen Urine Narrative Performed At LABDE INTERFACE Outside Lab Verified by Kandy crowe 09/06/2019. Performing Organization Address [facility]/State/[facility] Ph one Number LABDE INTERFACE * URINALYSIS DIPSTICK REFLEX TO CULTURE (09/04/2019 7:47 AM CDT) Color,UA Yellow LABDE INTERFACE Turbidity,UA Clear LABDE INTERFACE Glucose,UA 2+ (A) Negative LABDE INTERFACE Bilirubin,UA Negative LABDE INTERFACE Ketones,UA Negative LABDE INTERFACE Specific 1.025 LABDE INTERFACE [place]-Urine Blood,UA 1+ (A) Negative LABDE INTERFACE pH,UA 5.0 LABDE INTERFACE Protein,UA 1+ (A) Negative LABDE INTERFACE Urobilinogen,UA 0.2 (A) 0.2 - 1.0 LABDE INTERFAC E Nitrite,UA Negative LABDE INTERFACE Leukocytes,UA Negative LABDE INTERFACE Specimen Urine Narrative Performed At LABDE INTERFACE Outside Lab Verified by Federico Phillips on 09/04/2019. Performing Organization Address [facility] Ph one Number LABDE INTERFACE * URIC ACID (09/04/2019 7:47 AM CDT) Uric Acid 5.4 LABDE INTERFACE Specimen Blood Narrative Performed At LABDE INTERFACE Outside Lab Verified by Federico Phillips on 09/04/2019. Performing Organization Address [facility] [place] Ph one Number LABDE INTERFACE * PROTEIN/CR RATIO,UR RAN (09/04/2019 7:47 AM CDT) Protein, Random 42 (H) 0 - 20 LABDE INTERFAC E Creatinine, 108.8 (H) 0.0 - 50.0 LABDE INTERFACE Random Protein/CR 0.38 LABDE INTERFACE ratio Specimen Urine - Urine Narrative Performed At LABDE INTERFACE Outside Lab Verified by Federico Phillips on 09/04/2019. Performing Organization Address [facility] Ph one Number LABDE INTERFACE * PHOSPHORUS (09/04/2019 7:47 AM CDT) Phosphorus 3.6 LABDE INTERFACE Specimen Blood Narrative Performed At LABDE INTERFACE Outside Lab Verified by Federico Phillips on 09/04/2019. Performing Organization Address [facility] Ph one Number LABDE INTERFACE * MAGNESIUM (09/04/2019 7:47 AM CDT) Pathologist [facility] Magnesium 1.9 LABDE INTERFACE Specimen Blood Narrative Performed At LABDE INTERFACE Outside Lab Verified by Federico Phillips on 09/04/2019. Performing Organization Address [facility] Ph one [...] Federico Phillips on 09/04/2019. Performing Organization Address [facility] Ph one [...] Federico Phillips on 09/04/2019. Performing Organization Address City/State/[facility] [place] Ph one Number LABDE INTERFACE * TACROLIMUS LEVEL([id number]) (08/30/2019 9:54 AM CDT) Tacrolimus 5.1 LABDE INTERFACE Specimen Blood Narrative Performed At LABDE INTERFACE Outside Lab Verified by Kandy crowe 09/03/2019. Performing Organization Address City/State/[facility] [place] Ph one Number LABDE INTERFACE * URINALYSIS MICROSCOPIC REFLEX TO CULTURE (08/30/2019 9:54 AM CDT) WBCs,UA Negative LABDE INTERFACE RBCs,UA Few (A) LABDE INTERFACE Bacteria,UA Negative LABDE INTERFACE Squamous 0-5 (A) LABDE INTERFACE Epithelial Cells Specimen Urine Narrative Performed At LABDE INTERFACE Outside Lab Verified by Kandy crowe 08/31/2019. Performing Organization Address City/[facility] Ph one Number LABDE INTERFACE * URINALYSIS DIPSTICK REFLEX TO CULTURE (08/30/2019 9:54 AM CDT) Color,UA Yellow Lt. Yellow LABDE INTERFACE Turbidity,UA Clear LABDE INTERFACE Glucose,UA Negative Negative LABDE INTERFACE Bilirubin,UA Negative Negative LABDE INTERFACE Ketones,UA Negative Negative LABDE INTERFACE Specific 1.025 1.000 - 1,030 LABDE INTERFACE [place]-Urine Blood,UA 1+ (A) Negative LABDE INTERFACE pH,UA 5.5 LABDE INTERFACE Protein,UA 2+ (A) Negative LABDE INTERFACE Urobilinogen,UA 0.2 (A) 0.2 - 1.0 LABDE INTERFAC E Nitrite,UA Negative LABDE INTERFACE Leukocytes,UA Negative Negative LABDE INTERFACE Specimen Urine Narrative Performed At LABDE INTERFACE Outside Lab Verified by Kandy crowe 08/31/2019. Performing Organization Address [facility] Ph one Number LABDE INTERFACE * URIC ACID (08/30/2019 9:54 AM CDT) Uric Acid 5.7 2.6 - 7.2 mg/dL LABDE INTERFAC E Specimen Blood Narrative Performed At LABDE INTERFACE Outside Lab Verified by Kandy crowe 08/31/2019. Performing Organization Address [facility] Ph one Number LABDE INTERFACE * PROTEIN/CR RATIO,UR RAN (08/30/2019 9:54 AM CDT) Protein, Random 66 (H) 0 - 20 LABDE INTERFAC E Creatinine, 103.9 (H) 0.0 - 50.0 mg/dl LABDE INTERFA CE Random Protein/CR 0.63 LABDE INTERFACE ratio Specimen Urine - Urine Narrative Performed At LABDE INTERFACE Outside Lab Verified by Kandy crowe 08/31/2019. Performing Organization Address [facility] Ph one Number LABDE INTERFACE * PHOSPHORUS (08/30/2019 9:54 AM CDT) Phosphorus 3.0 mg/dL LABDE INTERFACE Specimen Blood Narrative Performed At LABDE INTERFACE Outside Lab Verified by Kandy crowe 08/31/2019. Performing Organization Address [facility] Ph one Number LABDE INTERFACE * MAGNESIUM (08/30/2019 9:54 AM CDT) Magnesium 2.0 1.6 - 2.6 mg/dL LABDE INTERFAC E Specimen Blood Narrative Performed At LABDE INTERFACE Outside Lab Verified by Kandy crowe 08/31/2019. Performing Organization Address [facility] Ph one [...] by Kandy crowe 08/31/2019. Performing Organization Address City/State/[facility] Ph one Number LABDE INTERFACE * TACROLIMUS LEVEL([id number]) (08/28/2019 8:30 AM CDT) Tacrolimus 10.1 LABDE INTERFACE Specimen Blood Narrative Performed At LABDE INTERFACE Outside Lab Verified by Federico Phillips on 08/31/2019. Performing Organization Address [facility] Ph one Number LABDE INTERFACE * CMV QUANT PCR-BLOOD (08/28/2019 8:30 AM CDT) CMV DNA Quant Negative LABDE INTERFACE PCR Specimen Blood Narrative Performed At LABDE INTERFACE Outside Lab Verified by Kandy crowe 09/03/2019. Performing Organization Address [facility] one Number LABDE INTERFACE * BK VIRUS DNA, QUANT PLASMA (08/28/2019 8:30 AM CDT) BK Virus Plasma NEGATIVE LABDE INTERFACE Quant Specimen Blood Narrative Performed At LABDE INTERFACE Outside Lab Verified by Kandy crowe 09/03/2019. Performing Organization Address City/[facility] Ph one Number LABDE INTERFACE * URINALYSIS MICROSCOPIC REFLEX TO CULTURE (08/28/2019 8:30 AM CDT) WBCs,UA Negative LABDE INTERFACE RBCs,UA 0-2 (A) LABDE INTERFACE Bacteria,UA Negative LABDE INTERFACE Squamous 0-5 (AA) LABDE INTERFACE Epithelial Cells Specimen Urine Narrative Performed At LABDE INTERFACE Outside Lab Verified by Federcio Phillips on 08/31/2019. Performing Organization Address [facility] Ph one Number LABDE INTERFACE * URINALYSIS DIPSTICK REFLEX TO CULTURE (08/28/2019 8:30 AM CDT) Color,UA Yellow LABDE INTERFACE Turbidity,UA Clear LABDE INTERFACE Glucose,UA 2+ (A) Negative LABDE INTERFACE Bilirubin,UA Negative LABDE INTERFACE Ketones,UA Negative LABDE INTERFACE Specific 1.020 LABDE INTERFACE [place]-Urine Blood,UA 2+ (A) Negative LABDE INTERFACE pH,UA 5.5 LABDE INTERFACE Protein,UA 2+ (A) Negative LABDE INTERFACE Urobilinogen,UA 0.2 (A) 0.2 - 1.0 LABDE INTERFAC E Nitrite,UA Negative LABDE INTERFACE Leukocytes,UA Negative LABDE INTERFACE Specimen Urine Narrative Performed At LABDE INTERFACE Outside Lab Verified by Federicomarta Ledbetterht on 08/31/2019. Performing Organization Address [facility] Ph one Number LABDE INTERFACE * URIC ACID (08/28/2019 8:30 AM CDT) Uric Acid 6.6 LABDE INTERFACE Specimen Blood Narrative Performed At LABDE INTERFACE Outside Lab Verified by Federicomarta Ledbetterht on 08/31/2019. Performing Organization Address [facility] Ph one Number LABDE INTERFACE * PROTEIN/CR RATIO,UR RAN (08/28/2019 8:30 AM CDT) Protein, Random 51 (H) 0 - 20 LABDE INTERFAC E Creatinine, 130.5 (H) 0.0 - 50.0 LABDE INTERFACE Random Protein/CR 0.39 LABDE INTERFACE ratio Specimen Urine - Urine Narrative Performed At LABDE INTERFACE Outside Lab Verified by Federico Lincoln on 08/31/2019. Performing Organization Address [facility] Ph one Number LABDE INTERFACE * PHOSPHORUS (08/28/2019 8:30 AM CDT) Phosphorus 2.7 LABDE INTERFACE Specimen Blood Narrative Performed At LABDE INTERFACE Outside Lab Verified by Federicomarta Ledbetterht on 08/31/2019. Performing Organization Address City/[facility] one Number LABDE INTERFACE * MAGNESIUM (08/28/2019 8:30 AM CDT) Magnesium 2.0 LABDE INTERFACE Specimen Blood Narrative Performed At LABDE INTERFACE Outside Lab Verified by Federico Phillips on 08/31/2019. Performing Organization Address [facility] Ph one [...] Federico Phillips on 08/31/2019. Performing Organization Address [facility] Ph one [...] Outside Lab Verified by Federicomarta Ledbetterht on 08/31/2019. Performing Organization Address City/State/[facility] Ph one Number LABDE INTERFACE * TACROLIMUS LEVEL([id number]) (08/23/2019 9:37 AM CDT) Tacrolimus 8.2 LABDE INTERFACE Specimen Blood Narrative Performed At LABDE INTERFACE Outside Lab Verified by Federicomarta Phillips on 08/31/2019. Performing Organization Address City/State/[facility] Ph one Number LABDE INTERFACE * URINALYSIS MICROSCOPIC REFLEX TO CULTURE (08/23/2019 9:37 AM CDT) WBCs,UA Negative /HPF LABDE INTERFACE RBCs,UA 0-2 (A) LABDE INTERFACE Bacteria,UA Negative LABDE INTERFACE Squamous None (A) LABDE INTERFACE Epithelial Cells Specimen Urine Narrative Performed At LABDE INTERFACE Outside Lab Verified by Federicomarta Ledbetterht on 08/31/2019. Performing Organization Address City/State/[facility] Ph one Number LABDE INTERFACE * URINALYSIS DIPSTICK REFLEX TO CULTURE (08/23/2019 9:37 AM CDT) Color,UA Yellow LABDE INTERFACE Turbidity,UA Clear LABDE INTERFACE Glucose,UA Negative LABDE INTERFACE Bilirubin,UA Negative LABDE INTERFACE Ketones,UA Negative LABDE INTERFACE Specific 1.025 LABDE INTERFACE [place]-Urine Blood,UA 1+ (A) Negative LABDE INTERFACE pH,UA 5.5 LABDE INTERFACE Protein,UA 2+ (A) Negative LABDE INTERFACE Urobilinogen,UA 0.2 (A) 0.2 - 1.0 LABDE INTERFAC E Nitrite,UA Negative LABDE INTERFACE Leukocytes,UA Negative LABDE INTERFACE Specimen Urine Narrative Performed At LABDE INTERFACE Outside Lab Verified by Federicomarta Phillips on 08/31/2019. Performing Organization Address [facility] Ph one Number LABDE INTERFACE * URIC ACID (08/23/2019 9:37 AM CDT) Uric Acid 5.4 LABDE INTERFACE Specimen Blood Narrative Performed At LABDE INTERFACE Outside Lab Verified by Federicomarta Ledbetterht on 08/31/2019. Performing Organization Address [facility] Ph one Number LABDE INTERFACE * PROTEIN/CR RATIO,UR RAN (08/23/2019 9:37 AM CDT) Protein, Random 65 (H) 0 - 20 LABDE INTERFAC E Creatinine, 101.9 (H) 0.0 - 50.0 LABDE INTERFACE Random Protein/CR 0.64 LABDE INTERFACE ratio Specimen Urine - Urine Narrative Performed At LABDE INTERFACE Outside Lab Verified by Federicomarta Ledbetterht on 08/31/2019. Performing Organization Address [facility] Ph one Number LABDE INTERFACE * PHOSPHORUS (08/23/2019 9:37 AM CDT) Phosphorus 3.1 LABDE INTERFACE Specimen Blood Narrative Performed At LABDE INTERFACE Outside Lab Verified by Federicomarta Ledbetterht on 08/31/2019. Performing Organization Address [facility] Ph one Number LABDE INTERFACE * MAGNESIUM (08/23/2019 9:37 AM CDT) Magnesium 1.9 LABDE INTERFACE Specimen Blood Narrative Performed At LABDE INTERFACE Outside Lab Verified by Federico Lincoln on 08/31/2019. Performing Organization Address [facility] Ph one [...] Federico Phillips on 08/31/2019. Performing Organization Address [facility] Ph one Number LABDE INTERFACE * PROTEIN/CR RATIO,UR RAN (08/20/2019 9:02 AM CDT) Protein, Random 65 MG/DL [facility] Creatinine, 84 MG/DL [facility] Random Protein/CR 0.8 [facility] ratio Specimen Urine - Urine Performing Organization Address [facility] one Number MAIN LAB [address] [place] [address] * TACROLIMUS LEVEL([id number]) (08/20/2019 9:01 AM CDT) Pathologist [facility] Tacrolimus 11.4 2 - 15 NG/ML [facility] Comment: Target concentrations vary by type of transplant, patient response, concomitant immunosuppression and post-transplant time interval. Test was performed on whole blood using [employer] QMS reagent and a [id number] AU analyzer. Specimen Blood Performing Organization Address [facility] one Number MAIN LAB [address] [place] [address] * URINALYSIS MICROSCOPIC REFLEX TO CULTURE (08/20/2019 9:01 AM CDT) Pathologist [facility] WBCs,UA 2-10 0 - 2 /HPF MAIN LAB RBCs,UA 0-2 0 - 3 /HPF [facility] Comment,UA Criteria for reflex to culture [facility] are WBC>10, Positive Nitrite, and/or >=+1 leukocytes. If quantity is not sufficient, an addendum will follow. Squamous 0-2 0 - 5 MAIN LAB Epithelial Cells Specimen Urine Performing Organization Address [facility] one Number MAIN LAB [address] [place] [address] * URINALYSIS DIPSTICK REFLEX TO CULTURE (08/20/2019 9:01 AM CDT) Color,UA YELLOW [facility] Turbidity,UA CLEAR CLEAR-CLEAR [facility] Specific 1.013 1.003 - 1.035 [facility] [place]-Urine pH,UA 5.0 5.0 - 8.0 [facility] Protein,UA 1+ (A) NEG-NEG [facility] Glucose,UA NEG NEG-NEG [facility] Ketones,UA NEG NEG-NEG [facility] Bilirubin,UA NEG NEG-NEG [facility] Blood,UA 1+ (A) NEG-NEG [facility] Urobilinogen,UA NORMAL NORM-NORMAL [facility] Nitrite,UA NEG NEG-NEG [facility] Leukocytes,UA NEG NEG-NEG [facility] Urine Ascorbic NEG NEG-NEG [facility] Acid, UA Specimen Urine Performing Organization Address [facility] one Number MAIN LAB [address] [place] [address] * URIC ACID (08/20/2019 9:01 AM CDT) Uric Acid 5.4 4.0 - 8.0 MG/DL [facility] Specimen Blood Performing Organization Address [facility] one Number MAIN LAB [address] [place] [address] * PHOSPHORUS (08/20/2019 9:01 AM CDT) Phosphorus 2.5 2.0 - 4.5 MG/DL [facility] Specimen Blood Performing Organization Address [facility] one Number MAIN LAB [address] [place] [address] * MAGNESIUM (08/20/2019 9:01 AM CDT) Magnesium 1.8 1.6 - 2.6 mg/dL [facility] Specimen Blood Performing Organization Address [facility] one Number MAIN LAB [address] [place] [address] * COMPREHENSIVE METABOLIC PANEL (08/20/2019 9:01 AM CDT) Sodium 140 137 - 147 MMOL/L [facility] Potassium 4.8 3.5 - 5.1 MMOL/L [facility] Chloride 115 (H) 98 - 110 MMOL/L [facility] Glucose 84 70 - 100 MG/DL [facility] Blood Urea 24 7 - 25 MG/DL [facility] Nitrogen Creatinine 2.06 (H) 0.4 - 1.24 MG/DL [facility] Calcium 8.8 8.5 - 10.6 MG/DL [facility] Total Protein 6.1 6.0 - 8.0 G/DL [facility] Total Bilirubin 0.3 0.3 - 1.2 MG/DL [facility] Albumin 4.2 3.5 - 5.0 G/DL [facility] Alk Phosphatase 93 25 - 110 U/L [facility] AST (SGOT) 18 7 - 40 U/L [facility] CO2 19 (L) 21 - 30 MMOL/L [facility] ALT (SGPT) 15 7 - 56 U/L [facility] Anion Gap 6 3 - 12 [facility] eGFR Non 35 (L) >60 mL/min [facility] Comment: [place] The eGFR is not validated f or use in drug dosing adjustments. Continue to use estimated creatinine clearance per dosing reference text. Please contact the Clinical Pharmacist for questions. eGFR 42 (L) >60 mL/min [facility] Comment: The eGFR is not validated for use in drug dosing adjustments. Continue to use estimated creatinine clearance per dosing reference text. Please contact the Clinical Pharmacist for questions. Specimen Blood Performing Organization Address City/State/Zipcode Ph one Number [facility] [address] [place] [address] * CBC AND DIFF (08/20/2019 9:01 AM CDT) White Blood 4.3 (L) 4.5 - 11.0 K/UL [facility] Cells RBC 3.58 (L) 4.4 - 5.5 M/UL [facility] Hemoglobin 11.5 (L) 13.5 - 16.5 GM/DL [facility] Hematocrit 34.7 (L) 40 - 50 % [facility] MCV 96.8 80 - 100 FL [facility] MCH 32.0 26 - 34 PG [facility] MCHC 33.1 32.0 - 36.0 G/DL [facility] RDW 17.0 (H) 11 - 15 % [facility] Platelet Count 149 (L) 150 - 400 K/UL [facility] MPV 9.0 7 - 11 FL [facility] Neutrophils 81 (H) 41 - 77 % [facility] Lymphocytes 6 (L) 24 - 44 % [facility] Monocytes 10 4 - 12 % [facility] Eosinophils 3 0 - 5 % [facility] Basophils 0 0 - 2 % [facility] Absolute 3.50 1.8 - 7.0 K/UL [facility] Neutrophil Count Absolute Lymph 0.30 (L) 1.0 - 4.8 K/UL [facility] Count Absolute 0.40 0 - 0.80 K/UL [facility] Monocyte Count Absolute 0.10 0 - 0.45 K/UL [facility] Eosinophil Count Absolute 0.00 0 - 0.20 K/UL [facility] Basophil Count Specimen Blood Performing Organization Address [facility] [address] [place] [address] * TACROLIMUS LEVEL([id number]) (08/16/2019 9:30 AM CDT) Tacrolimus 14.0 LABDE INTERFACE Specimen Blood Narrative Performed At LABDE INTERFACE Outside Lab Verified by Federico Phillips on 08/20/2019. Performing Organization Address [facility] Number LABDE INTERFACE * URINALYSIS MICROSCOPIC REFLEX TO CULTURE (08/16/2019 9:30 AM CDT) WBCs,UA Negative /HPF LABDE INTERFACE RBCs,UA Few (A) LABDE INTERFACE Bacteria,UA Negative LABDE INTERFACE Squamous 0-5 (A) LABDE INTERFACE Epithelial Cells Specimen Urine Narrative Performed At LABDE INTERFACE Outside Lab Verified by Kandy crowe 08/17/2019. Performing Organization Address City[facility] * URINALYSIS DIPSTICK REFLEX TO CULTURE (08/16/2019 9:30 AM CDT) Color,UA Yellow Yellow LABDE INTERFACE Turbidity,UA Clear LABDE INTERFACE Glucose,UA Negative Negative LABDE INTERFACE Bilirubin,UA Negative Negative LABDE INTERFACE Ketones,UA Negative Negative LABDE INTERFACE Specific 1.020 1.000 - 1,030 LABDE INTERFACE [place]-Urine Blood,UA 2+ (A) Negative LABDE INTERFACE pH,UA 5.5 LABDE INTERFACE Protein,UA 1+ (A) Negative LABDE INTERFACE Urobilinogen,UA 0.2 (A) LABDE INTERFACE Nitrite,UA Negative LABDE INTERFACE Leukocytes,UA Negative Negative LABDE INTERFACE Specimen Urine Narrative Performed At LABDE INTERFACE Outside Lab Verified by Kandy crowe 08/17/2019. Performing Organization Address [facility] * URIC ACID (08/16/2019 9:30 AM CDT) Uric Acid 5.4 2.6 - 7.2 mg/dL LABDE INTERFAC E Specimen Blood Narrative Performed At LABDE INTERFACE Outside Lab Verified by Kandy crowe 08/17/2019. Performing Organization Address [facility] Ph one Number LABDE INTERFACE * PHOSPHORUS (08/16/2019 9:30 AM CDT) Phosphorus 3.3 mg/dL LABDE INTERFACE Specimen Blood Narrative Performed At LABDE INTERFACE Outside Lab Verified by Kandy crowe 08/17/2019. Performing Organization Address [facility] [place] Ph one Number LABDE INTERFACE * MAGNESIUM (08/16/2019 9:30 AM CDT) Magnesium 1.8 1.6 - 2.6 mg/dL LABDE INTERFAC E Specimen Blood Narrative Performed At LABDE INTERFACE Outside Lab Verified by Kandy crowe 08/17/2019. Performing Organization Address [facility] one Number LABDE INTERFACE * COMPREHENSIVE METABOLIC [...] by Kandy crowe 08/17/2019. Performing Organization Address [facility]/Zipcode Ph one Number LABDE INTERFACE * CBC [...] by Kandy crowe 08/17/2019. Performing Organization Address City/[facility] one Number LABDE INTERFACE * CMV QUANT PCR-BLOOD (08/15/2019 11:06 PM CDT) CMV DNA Quant NEGATIVE [facility] INTERFACE PCR Specimen Blood Narrative Performed At LABDE INTERFACE Outside Lab Verified by Marilyn Woods on 08/16/2019. Performing Organization Address City/State/[facility] [place] Ph one Number LABDE INTERFACE * BK VIRUS DNA, QUANT PLASMA (08/15/2019 11:06 PM CDT) BK Virus Plasma NEGATIVE LABDE INTERFACE Quant Specimen Blood Narrative Performed At LABDE INTERFACE Outside Lab Verified by Marilyn Woods on 08/16/2019. Performing Organization Address [facility] [place] Ph one Number LABDE INTERFACE * TACROLIMUS LEVEL([id number]) (08/13/2019 7:45 AM CDT) Tacrolimus 19.4 LABDE INTERFACE Specimen Blood Narrative Performed At LABDE INTERFACE Outside Lab Verified by Federico Phillips on 08/15/2019. Performing Organization Address [facility] Ph one Number LABDE INTERFACE * URINALYSIS MICROSCOPIC REFLEX TO CULTURE (08/13/2019 7:45 AM CDT) WBCs,UA Negative /HPF LABDE INTERFACE RBCs,UA 2-5 (A) LABDE INTERFACE Bacteria,UA Negative LABDE INTERFACE Squamous 0-5 (A) LABDE INTERFACE Epithelial Cells Specimen Urine Narrative Performed At LABDE INTERFACE Outside Lab Verified by Kandy crowe 08/13/2019. Performing Organization Address [facility] Ph one Number LABDE INTERFACE * URINALYSIS DIPSTICK REFLEX TO CULTURE (08/13/2019 7:45 AM CDT) Color,UA Yellow Yellow LABDE INTERFACE Turbidity,UA Clear LABDE INTERFACE Glucose,UA 2+ (A) Negative LABDE INTERFACE Bilirubin,UA Negative Negative [facility] INTERFACE Ketones,UA Negative Negative [facility] INTERFACE Specific 1.025 1.000 - 1,030 LABDE INTERFACE [place]-Urine Blood,UA 1+ (A) Negative LABDE INTERFACE pH,UA 5.5 LABDE INTERFACE Protein,UA 1+ (A) Negative LABDE INTERFACE Urobilinogen,UA 0.2 LABDE INTERFACE Nitrite,UA Negative LABDE INTERFACE Leukocytes,UA Negative Negative LABDE INTERFACE Specimen Urine Narrative Performed At LABDE INTERFACE Outside Lab Verified by Kandy crowe 08/13/2019. Performing Organization Address City/[facility] Ph one Number LABDE INTERFACE * URIC ACID (08/13/2019 7:45 AM CDT) Uric Acid 5.7 2.6 - 7.2 mg/dL LABDE INTERFAC E Specimen Blood Narrative Performed At LABDE INTERFACE Outside Lab Verified by Kandy crowe 08/13/2019. Performing Organization Address [facility] Ph one Number LABDE INTERFACE * PHOSPHORUS (08/13/2019 7:45 AM CDT) Phosphorus 3.0 mg/dL LABDE INTERFACE Specimen Blood Narrative Performed At LABDE INTERFACE Outside Lab Verified by Kandy crowe 08/13/2019. Performing Organization Address [facility] one Number LABDE INTERFACE * MAGNESIUM (08/13/2019 7:45 AM CDT) Magnesium 1.9 1.6 - 2.6 mg/dL LABDE INTERFAC E Specimen Blood Narrative Performed At LABDE INTERFACE Outside Lab Verified by Kandy crowe 08/13/2019. Performing Organization Address [facility] one Number LABDE INTERFACE * COMPREHENSIVE METABOLIC [...] by Kandy crowe 08/13/2019. Performing Organization Address [facility] Ph one Number LABDE INTERFACE * CBC AND DIFF (08/13/2019 7:45 AM CDT) White Blood 3.99 (L) 5.00 - 10.00 [...] At LABDE INTERFACE Outside Lab Verified by Kadny crowe 08/13/2019. Performing Organization Address [facility] Ph one Number LABDE INTERFACE * TACROLIMUS LEVEL([id number]) (08/09/2019 9:38 AM CDT) Tacrolimus 10.0 LABDE INTERFACE Specimen Blood Narrative Performed At LABDE INTERFACE Outside Lab Verified by Kandy crowe 08/13/2019. Performing Organization Address [facility] one Number LABDE INTERFACE * URINALYSIS MICROSCOPIC REFLEX TO CULTURE (08/09/2019 9:38 AM CDT) WBCs,UA Rare (A) LABDE INTERFACE RBCs,UA 2-5 (A) LABDE INTERFACE Bacteria,UA Negative LABDE INTERFACE Specimen Urine Narrative Performed At LABDE INTERFACE Outside Lab Verified by Federicomarta Phillips on 08/09/2019. Performing Organization Address [facility] Ph one Number LABDE INTERFACE * URINALYSIS DIPSTICK REFLEX TO CULTURE (08/09/2019 9:38 AM CDT) Color,UA Yellow LABDE INTERFACE Turbidity,UA Clear LABDE INTERFACE Glucose,UA Trace (A) Negative LABDE INTERFACE Bilirubin,UA Negative LABDE INTERFACE Ketones,UA Negative LABDE INTERFACE Specific 1.025 LABDE INTERFACE [place]-Urine Blood,UA 1+ (A) Negative LABDE INTERFACE pH,UA 6.0 LABDE INTERFACE Protein,UA 1+ (A) Negative LABDE INTERFACE Urobilinogen,UA 0.2 (A) 0.2 - 1.0 LABDE INTERFAC E Nitrite,UA Negative LABDE INTERFACE Leukocytes,UA Negative LABDE INTERFACE Specimen Urine Narrative Performed At LABDE INTERFACE Outside Lab Verified by Federicomarta Phillips on 08/09/2019. Performing Organization Address [facility] Ph one Number LABDE INTERFACE * URIC ACID (08/09/2019 9:38 AM CDT) Uric Acid 5.4 LABDE INTERFACE Specimen Blood Narrative Performed At LABDE INTERFACE Outside Lab Verified by Federicomarta Ledbetterht on 08/09/2019. Performing Organization Address [facility] Ph one Number LABDE INTERFACE * PROTEIN/CR RATIO,UR RAN (08/09/2019 9:38 AM CDT) Protein, Random 37 (H) 0 - 20 LABDE INTERFAC E Creatinine, 96.5 (H) 0.0 - 50.0 LABDE INTERFACE Random Protein/CR 0.39 LABDE INTERFACE ratio Specimen Urine - Urine Narrative Performed At LABDE INTERFACE Outside Lab Verified by Federico Lincoln on 08/09/2019. Performing Organization Address [facility] Ph one Number LABDE INTERFACE * PHOSPHORUS (08/09/2019 9:38 AM CDT) Phosphorus 2.9 LABDE INTERFACE Specimen Blood Narrative Performed At LABDE INTERFACE Outside Lab Verified by Federico Phillips on 08/09/2019. Performing Organization Address [facility] Ph one Number LABDE INTERFACE * MAGNESIUM (08/09/2019 9:38 AM CDT) Magnesium 1.7 LABDE INTERFACE Specimen Blood Narrative Performed At LABDE INTERFACE Outside Lab Verified by Federico Phillips on 08/09/2019. Performing Organization Address [facility] one Number LABDE INTERFACE * COMPREHENSIVE METABOLIC [...] Federico Phillips on 08/09/2019. Performing Organization Address [facility] one Number LABDE INTERFACE * CBC [...] Federico Phillips on 08/09/2019. Performing Organization Address City/[facility] one Number LABDE INTERFACE * MAGNESIUM (08/06/2019 7:38 AM CDT) Magnesium 1.8 1.6 - 2.6 LABDE INTERFACE Specimen Blood Narrative Performed At LABDE INTERFACE Outside Lab Verified by Marilyn Woods on 08/07/2019. Performing Organization Address [facility] Ph one Number LABDE INTERFACE * TACROLIMUS LEVEL([id number]) (08/06/2019 7:36 AM CDT) Tacrolimus 11.6 LABDE INTERFACE Specimen Blood Narrative Performed At LABDE INTERFACE Outside Lab Verified by Kandy crowe 08/09/2019. Performing Organization Address City/State/[facility] [...] Marilyn Woods on 08/07/2019. Performing Organization Address [facility] Ph one Number LABDE INTERFACE * URINALYSIS DIPSTICK REFLEX TO CULTURE (08/06/2019 7:36 AM CDT) Color,UA Yellow Yellow LABDE INTERFACE Turbidity,UA Clear Clear LABDE INTERFACE Glucose,UA Trace (A) Negative LABDE INTERFACE Bilirubin,UA Negative Negative LABDE INTERFACE Ketones,UA Negative Negative LABDE INTERFACE Specific 1.020 1.000 - 1.030 LABDE INTERFACE [place]-Urine Blood,UA 2+ (A) Negative LABDE INTERFACE pH,UA 6.0 LABDE INTERFACE Protein,UA 1+ (A) Negative LABDE INTERFACE Urobilinogen,UA 0.2 LABDE INTERFACE Nitrite,UA Negative Negative LABDE INTERFACE Leukocytes,UA Negative Negative LABDE INTERFACE Specimen Urine Narrative Performed At LABDE INTERFACE Outside Lab Verified by Marilyn Woods on 08/07/2019. Performing Organization Address [facility] Ph one Number LABDE INTERFACE * URIC ACID (08/06/2019 7:36 AM CDT) Uric Acid 5.6 2.6 - 7.2 mg/dL LABDE INTERFAC E Specimen Blood Narrative Performed At LABDE INTERFACE Outside Lab Verified by Marilyn Woods on 08/07/2019. Performing Organization Address [facility] Ph one Number LABDE INTERFACE * PHOSPHORUS (08/06/2019 7:36 AM CDT) Phosphorus 2.7 2.5 - 4.8 mg/dL LABDE INTERFAC E Specimen Blood Narrative Performed At LABDE INTERFACE Outside Lab Verified by Marilyn Woods on 08/07/2019. Performing Organization Address [facility] Ph one [...] Marilyn Woods on 08/07/2019. Performing Organization Address [facility] Ph one Number LABDE INTERFACE * TACROLIMUS LEVEL([id number]) (08/02/2019 11:11 AM CDT) Tacrolimus 19.7 LABDE INTERFACE Specimen Blood Narrative Performed At LABDE INTERFACE Outside Lab Verified by Federico Phillips on 08/06/2019. Performing Organization [facility] INTER[facility] * URINALYSIS MICROSCOPIC REFLEX TO CULTURE (08/02/2019 11:11 AM CDT) Pathologist [facility] WBCs,UA Negative LABDE INTERFACE RBCs,UA Rare (A) LABDE INTERFACE Bacteria,UA Trace (A) LABDE INTERFACE Squamous 0-5 (A) LABDE INTERFACE Epithelial Cells Specimen Urine Narrative Performed At LABDE INTERFACE Outside Lab Verified by Federico Phillips on 08/06/2019. Performing Organization Address [facility] Ph one Number LABDE INTERFACE * URINALYSIS DIPSTICK REFLEX TO CULTURE (08/02/2019 11:11 AM CDT) Color,UA Yellow LABDE INTERFACE Turbidity,UA Clear LABDE INTERFACE Glucose,UA Trace (A) Negative LABDE INTERFACE Bilirubin,UA Negative LABDE INTERFACE Ketones,UA Negative LABDE INTERFACE Specific 1.025 LABDE INTERFACE [place]-Urine Blood,UA 1+ (A) Negative LABDE INTERFACE pH,UA 5.5 LABDE INTERFACE Protein,UA 1+ (A) Negative LABDE INTERFACE Urobilinogen,UA 0.2 (A) 0.2 - 1.0 LABDE INTERFAC E Nitrite,UA Negative LABDE INTERFACE Leukocytes,UA Negative LABDE INTERFACE Specimen Urine Narrative Performed At LABDE INTERFACE Outside Lab Verified by Federico Phillips on 08/06/2019. Performing Organization Address City/State/[facility] Ph one Number LABDE INTERFACE * URIC ACID (08/02/2019 11:11 AM CDT) Uric Acid 6.4 LABDE INTERFACE Specimen Blood Narrative Performed At LABDE INTERFACE Outside Lab Verified by Federicomarta Phillips on 08/06/2019. Performing Organization Address City/State/[facility] [...] Federicomarta Phillips on 08/06/2019. Performing Organization Address [facility] Ph one Number LABDE INTERFACE * PHOSPHORUS (08/02/2019 11:11 AM CDT) Phosphorus 2.4 (L) 2.5 - 4.8 LABDE INTERFACE Specimen Blood Narrative Performed At LABDE INTERFACE Outside Lab Verified by Federico Phillips on 08/06/2019. Performing Organization Address [facility] Ph one Number LABDE INTERFACE * MAGNESIUM (08/02/2019 11:11 AM CDT) Magnesium 1.9 LABDE INTERFACE Specimen Blood Narrative Performed At LABDE INTERFACE Outside Lab Verified by Federicomarta Phillips on 08/06/2019. Performing Organization Address [facility] Ph one [...] Federico Phillips on 08/06/2019. Performing Organization Address City/State/[facility] [...] Federico Phillips on 08/06/2019. Performing Organization Address City/State/[facility] [place] Ph one Number LABDE INTERFACE * TACROLIMUS LEVEL([id number]) (07/30/2019 7:51 AM CDT) Tacrolimus 20.7 (HH) 2.0 - 20.0 LABDE INTERFACE Specimen Blood Narrative Performed At LABDE INTERFACE Outside Lab Verified by Marilyn Woods on 08/06/2019. Performing Organization Address City/State/[facility] [...] Marilyn Woods on 07/30/2019. Performing Organization Address [facility] one Number LABDE INTERFACE * URINALYSIS DIPSTICK REFLEX TO CULTURE (07/30/2019 7:51 AM CDT) Color,UA Yellow Lt. Yellow LABDE INTERFACE Turbidity,UA Clear Clear LABDE INTERFACE Glucose,UA Negative Negative LABDE INTERFACE Bilirubin,UA Negative Negative LABDE INTERFACE Ketones,UA Negative Negative LABDE INTERFACE Specific 1.020 1.000 - 1,030 LABDE INTERFACE [place]-Urine Blood,UA 1+ (A) Negative LABDE INTERFACE pH,UA 5.5 5 - 8.5 LABDE INTERFACE Protein,UA 2+ (A) Negative LABDE INTERFACE Urobilinogen,UA 0.2 0.2 - 1.0 LABDE INTERFAC E Nitrite,UA Negative Negative LABDE INTERFACE Leukocytes,UA Negative Negative LABDE INTERFACE Specimen Urine Narrative Performed At LABDE INTERFACE Outside Lab Verified by Marilyn Woods on 07/30/2019. Performing Organization Address [facility] Number LABDE INTERFACE * URIC ACID (07/30/2019 7:51 AM CDT) Uric Acid 6.4 2.6 - 7.2 mg/dL LABDE INTERFAC E Specimen Blood Narrative Performed At LABDE INTERFACE Outside Lab Verified by Marilyn Woods on 07/30/2019. Performing Organization Address [facility] one Number LABDE INTERFACE * PROTEIN/CR RATIO,UR RAN (07/30/2019 7:51 AM CDT) Protein, Random 61 (H) 0 - 20 LABDE INTERFAC E Creatinine, 146.6 (H) 0.0 - 50.0 mg/dl LABDE INTERFA CE Random Protein/CR 0.42 LABDE INTERFACE ratio Specimen Urine - Urine Narrative Performed At LABDE INTERFACE Outside Lab Verified by Marilyn Woods on 07/30/2019. Performing Organization Address [facility] Ph one Number LABDE INTERFACE * PHOSPHORUS (07/30/2019 7:51 AM CDT) Phosphorus 2.7 2.5 - 4.8 mg/dL LABDE INTERFAC E Specimen Blood Narrative Performed At LABDE INTERFACE Outside Lab Verified by Marilyn Woods on 07/30/2019. Performing Organization Address [facility] Ph one Number LABDE INTERFACE * MAGNESIUM (07/30/2019 7:51 AM CDT) Magnesium 1.7 1.6 - 2.6 mg/dL LABDE INTERFAC E Specimen Blood Narrative Performed At LABDE INTERFACE Outside Lab Verified by Marilyn Woods on 07/30/2019. Performing Organization Address [facility] one Number LABDE INTERFACE * COMPREHENSIVE METABOLIC [...] Marilyn Woods on 07/30/2019. Performing Organization Address [facility] one Number LABDE INTERFACE * CBC AND DIFF (07/30/2019 7:51 AM [...] Marilyn Woods on 07/30/2019. Performing Organization Address [facility] one Number LABDE INTERFACE * TACROLIMUS LEVEL([id number]) (07/26/2019 9:10 AM CDT) Tacrolimus 14.4 LABDE INTERFACE Specimen Blood Narrative Performed At LABDE INTERFACE Outside Lab Verified by Kandy crowe 07/30/2019. Performing Organization Address [facility] Ph one Number LABDE INTERFACE * URINALYSIS MICROSCOPIC REFLEX TO CULTURE (07/26/2019 9:10 AM CDT) WBCs,UA Negative Negative /HPF LABDE INTERFACE RBCs,UA Few (A) Negative LABDE INTERFACE Bacteria,UA Negative Negative LABDE INTERFACE Squamous 0-5 Negative LABDE INTERFACE Epithelial Cells Specimen Urine Narrative Performed At LABDE INTERFACE Outside Lab Verified by Marilyn Woods on 07/30/2019. Performing Organization Address [facility] Ph one Number LABDE INTERFACE * URINALYSIS DIPSTICK REFLEX TO CULTURE (07/26/2019 9:10 AM CDT) Color,UA Yellow Lt. Yellow LABDE INTERFACE Turbidity,UA Clear Clear LABDE INTERFACE Glucose,UA Trace (A) Negative LABDE INTERFACE Bilirubin,UA Negative Negative LABDE INTERFACE Ketones,UA Negative Negative LABDE INTERFACE Specific >=1.030 (A) 1.000 - 1.030 LABDE INTERFACE [place]-Urine Blood,UA 1+ (A) Negative LABDE INTERFACE pH,UA 5.5 5 - 8.5 LABDE INTERFACE Protein,UA 2+ (A) Negative LABDE INTERFACE Urobilinogen,UA 0.2 0.2 - 1.0 LABDE INTERFAC E Nitrite,UA Negative Negative LABDE INTERFACE Leukocytes,UA Negative Negative LABDE INTERFACE Specimen Urine Narrative Performed At LABDE INTERFACE Outside Lab Verified by Marilyn Woods on 07/30/2019. Performing Organization Address [facility] Ph one Number LABDE INTERFACE * URIC ACID (07/26/2019 9:10 AM CDT) Uric Acid 6.2 2.6 - 7.2 mg/dL LABDE INTERFAC E Specimen Blood Narrative Performed At LABDE INTERFACE Outside Lab Verified by Marilyn Woods on 07/30/2019. Performing Organization Address [facility] Ph one [...] Marilyn Woods on 07/30/2019. Performing Organization Address [facility] Ph one Number LABDE INTERFACE * PHOSPHORUS (07/26/2019 9:10 AM CDT) Phosphorus 3.5 2.5 - 4.8 mg/dL LABDE INTERFAC E Specimen Blood Narrative Performed At LABDE INTERFACE Outside Lab Verified by Marilyn Woods on 07/30/2019. Performing Organization Address [facility] Ph one Number LABDE INTERFACE * MAGNESIUM (07/26/2019 9:10 AM CDT) Magnesium 1.7 1.6 - 2.6 mg/dL LABDE INTERFAC E Specimen Blood Narrative Performed At LABDE INTERFACE Outside Lab Verified by Marilyn Woods on 07/30/2019. Performing Organization Address [facility] Ph one [...] Marilyn Woods on 07/30/2019. Performing Organization Address City/State/[facility] [...] Marilyn Woods on 07/30/2019. Performing Organization Address City/State/[facility] [place] Ph one Number LABDE INTERFACE * TACROLIMUS LEVEL([id number]) (07/19/2019 9:39 AM CDT) Tacrolimus 8.4 2.0 - 20.0 LABDE INTERFACE Specimen Blood Narrative Performed At LABDE INTERFACE Outside Lab Verified by Marilyn Woods on 07/27/2019. Performing Organization Address [facility] Ph one [...] Marilyn Woods on 07/20/2019. Performing Organization Address [facility] Ph one Number LABDE INTERFACE * URINALYSIS DIPSTICK REFLEX TO CULTURE (07/19/2019 9:39 AM CDT) Color,UA Yellow Lt. Yellow LABDE INTERFACE Turbidity,UA Clear Clear LABDE INTERFACE Glucose,UA Negative Negative LABDE INTERFACE Bilirubin,UA Negative Negative LABDE INTERFACE Ketones,UA Negative Negative LABDE INTERFACE Specific 1.025 1.000 - 1.030 LABDE INTERFACE [place]-Urine Blood,UA 1+ (A) Negative LABDE INTERFACE pH,UA 5.5 5 - 8.5 LABDE INTERFACE Protein,UA 1+ (A) Negative LABDE INTERFACE Urobilinogen,UA 0.2 0.2 - 1.0 LABDE INTERFAC E Nitrite,UA Negative Negative LABDE INTERFACE Leukocytes,UA Negative Negative LABDE INTERFACE Specimen Urine Narrative Performed At LABDE INTERFACE Outside Lab Verified by Marilyn Woods on 07/20/2019. Performing Organization Address [facility] Ph one Number LABDE INTERFACE * URIC ACID (07/19/2019 9:39 AM CDT) Uric Acid 5.8 2.6 - 7.2 mg/dL LABDE INTERFAC E Specimen Blood Narrative Performed At LABDE INTERFACE Outside Lab Verified by Marilyn Woods on 07/20/2019. Performing Organization Address City/[facility] Ph one Number LABDE INTERFACE * PROTEIN/CR RATIO,UR RAN (07/19/2019 9:39 AM CDT) Creatinine, 145.4 (H) 0.0 - 50.0 mg/dl LABDE INTERFA CE Random Specimen Urine - Urine Narrative Performed At LABDE INTERFACE Outside Lab Verified by Marilyn Woods on 07/20/2019. Performing Organization Address [facility] Ph one Number LABDE INTERFACE * PHOSPHORUS (07/19/2019 9:39 AM CDT) Phosphorus 2.5 mg/dL LABDE INTERFACE Specimen Blood Narrative Performed At LABDE INTERFACE Outside Lab Verified by Marilyn Woods on 07/20/2019. Performing Organization Address [facility] [place] Ph one Number LABDE INTERFACE * MAGNESIUM (07/19/2019 9:39 AM CDT) Magnesium 1.7 1.6 - 2.6 mg/dL LABDE INTERFAC E Specimen Blood Narrative Performed At LABDE INTERFACE Outside Lab Verified by Marilyn Woods on 07/20/2019. Performing Organization Address [facility] one Number LABDE INTERFACE * COMPREHENSIVE METABOLIC [...] Marilyn Woods on 07/20/2019. Performing Organization Address City/State/[facility] [place] Ph one Number LABDE INTERFACE * CBC AND DIFF (07/19/2019 9:39 AM [...] Marilyn Woods on 07/20/2019. Performing Organization Address City/State/[facility] [place] Ph one Number LABDE INTERFACE * TACROLIMUS LEVEL([id number]) (07/16/2019 7:55 AM CDT) Tacrolimus 12.3 LABDE INTERFACE Specimen Blood Narrative Performed At LABDE INTERFACE Outside Lab Verified by Kandy crowe 07/20/2019. Performing Organization Address [facility] Ph one Number LABDE INTERFACE * URIC ACID (07/16/2019 7:55 AM CDT) Pathologist [facility] Uric Acid 5.8 LABDE INTERFACE Specimen Blood Narrative Performed At LABDE INTERFACE Outside Lab Verified by Federico Phillips on 07/18/2019. Performing Organization Address [facility] [place] Ph one Number LABDE INTERFACE * PROTEIN/CR RATIO,UR RAN (07/16/2019 7:55 AM CDT) Pathologist [facility] Protein, Random 51 (H) 0 - 20 LABDE INTERFAC E Creatinine, 140.7 (H) 0.0 - 50.0 LABDE INTERFACE Random Protein/CR 0.36 LABDE INTERFACE ratio Specimen Urine - Urine Narrative Performed At LABDE INTERFACE Outside Lab Verified by Federico Phillips on 07/18/2019. Performing Organization Address [facility] [place] Ph one Number LABDE INTERFACE * PHOSPHORUS (07/16/2019 7:55 AM CDT) Pathologist [facility] Phosphorus 2.8 LABDE INTERFACE Specimen Blood Narrative Performed At LABDE INTERFACE Outside Lab Verified by Federico Phillips on 07/18/2019. Performing Organization Address [facility] one Number LABDE INTERFACE * COMPREHENSIVE METABOLIC PANEL (07/16/2019 7:55 AM CDT) Pathologist [facility] Sodium 139 mmol/L LABDE INTERFACE Potassium 5.2 [...] Federico Phillips on 07/18/2019. Performing Organization Address [facility] [place] Ph one [...] Federico Phillips on 07/18/2019. Performing Organization Address [facility] [place] Ph one Number LABDE INTERFACE * URINALYSIS MICROSCOPIC REFLEX TO CULTURE (07/12/2019 7:55 AM RISK CONTROL MANAGER) WBCs,UA 10-20 (A) LABDE INTERFACE RBCs,UA Rare (A) LABDE INTERFACE Bacteria,UA Trace (A) LABDE INTERFACE Squamous None (A) LABDE INTERFACE Epithelial Cells Specimen Urine Narrative Performed At LABDE INTERFACE Outside Lab Verified by Federicomarta Ledbetterht on 07/18/2019. Performing Organization Address [facility] [place] Ph one Number LABDE INTERFACE * URINALYSIS DIPSTICK REFLEX TO CULTURE (07/12/2019 7:55 AM RISK CONTROL MANAGER) Color,UA Yellow LABDE INTERFACE Turbidity,UA Clear LABDE INTERFACE Glucose,UA Trace (A) Negative LABDE INTERFACE Bilirubin,UA Negative LABDE INTERFACE Ketones,UA Negative LABDE INTERFACE Specific 1.025 LABDE INTERFACE [place]-Urine Blood,UA 1+ (A) Negative LABDE INTERFACE pH,UA 5.5 LABDE INTERFACE Protein,UA 2+ (A) Negative LABDE INTERFACE Urobilinogen,UA 0.2 (A) 0.2 - 1.0 LABDE INTERFAC E Nitrite,UA Negative LABDE INTERFACE Leukocytes,UA Negative LABDE INTERFACE Specimen Urine Narrative Performed At LABDE INTERFACE Outside Lab Verified by Federicomarta Phillips on 07/18/2019. Performing Organization Address [facility] [place] Ph one Number LABDE INTERFACE * URINALYSIS MICROSCOPIC REFLEX TO CULTURE (07/12/2019 7:54 AM RISK CONTROL MANAGER) WBCs,UA 2-5 (A) LABDE INTERFACE RBCs,UA Negative LABDE INTERFACE Bacteria,UA Negative LABDE INTERFACE Squamous None (A) LABDE INTERFACE Epithelial Cells Specimen Urine Narrative Performed At LABDE INTERFACE Outside Lab Verified by Federicomarta Phillips on 07/13/2019. Performing Organization Address [facility] one Number LABDE INTERFACE * URINALYSIS DIPSTICK REFLEX TO CULTURE (07/12/2019 7:54 AM RISK CONTROL MANAGER) Color,UA Yellow LABDE INTERFACE Turbidity,UA Clear LABDE INTERFACE Glucose,UA Trace (A) Negative LABDE INTERFACE Bilirubin,UA Negative LABDE INTERFACE Ketones,UA Negative LABDE INTERFACE Specific 1.025 LABDE INTERFACE [place]-Urine Blood,UA 1+ (A) Negative LABDE INTERFACE pH,UA 5.5 LABDE INTERFACE Protein,UA 1+ (A) Negative LABDE INTERFACE Urobilinogen,UA 0.2 (A) 0.2 - 1.0 LABDE INTERFAC E Nitrite,UA Negative LABDE INTERFACE Leukocytes,UA Negative LABDE INTERFACE Specimen Urine Narrative Performed At LABDE INTERFACE Outside Lab Verified by Federico Jacqueline on 07/13/2019. Performing Organization Address [facility]/State/[facility] [place] Ph one Number LABDE INTERFACE * URIC ACID (07/12/2019 7:54 AM RISK CONTROL MANAGER) Uric Acid 5.8 LABDE INTERFACE Specimen Blood Narrative Performed At LABDE INTERFACE Outside Lab Verified by Federico Jacqueline on 07/13/2019. Performing Organization Address [facility]/State/[facility] [place] Ph one Number LABDE INTERFACE * PROTEIN/CR RATIO,UR RAN (07/12/2019 7:54 AM RISK CONTROL MANAGER) Protein, Random 57 LABDE INTERFACE Creatinine, 160.9 LABDE INTERFACE Random Protein/CR 0.36 LABDE INTERFACE ratio Specimen Urine - Urine Narrative Performed At LABDE INTERFACE Outside Lab Verified by Federico Lincoln on 07/13/2019. Performing Organization Address [facility] [place] Ph one Number LABDE INTERFACE * PHOSPHORUS (07/12/2019 7:54 AM RISK CONTROL MANAGER) Phosphorus 2.3 (L) 2.5 - 4.8 LABDE INTERFACE Specimen Blood Narrative Performed At LABDE INTERFACE Outside Lab Verified by Federico Lincoln on 07/13/2019. Performing Organization Address [facility] [place] Ph one Number LABDE INTERFACE * MAGNESIUM (07/12/2019 7:54 AM RISK CONTROL MANAGER) Magnesium 1.7 LABDE INTERFACE Specimen Blood Narrative Performed At LABDE INTERFACE Outside Lab Verified by Federico Lincoln on 07/13/2019. Performing Organization Address [facility] [place] Ph one Number LABDE INTERFACE * COMPREHENSIVE METABOLIC PANEL (07/12/2019 7:54 AM RISK CONTROL MANAGER) Sodium 140 mmol/l LABDE INTERFACE Potassium 5.0 [...] * CBC AND DIFF (07/12/2019 7:54 AM RISK CONTROL MANAGER) White Blood 3.61 (L) 5.00 - 10.00 [...] Federico Phillips on 07/13/2019. Performing Organization Address [facility] [place] Ph one Number LABDE INTERFACE * URINALYSIS MICROSCOPIC REFLEX TO CULTURE (07/10/2019 10:36 AM RISK CONTROL MANAGER) WBCs,UA 2-10 0 - 2 /HPF KU [...] Epithelial Cells Specimen Urine Performing Organization Address [facility] [place] Ph one Number [facility] [address] [place] [address] * URINALYSIS DIPSTICK REFLEX TO CULTURE (07/10/2019 10:36 AM RISK CONTROL MANAGER) Color,UA YELLOW [facility] Turbidity,UA CLEAR CLEAR-CLEAR [facility] Specific 1.015 1.003 - 1.035 [facility] [place]-Urine pH,UA 6.0 5.0 - 8.0 [facility] [...] Acid, UA Specimen Urine Performing Organization Address [facility] [place] Ph one Number [facility] [address] [place] [address] * PROTEIN/CR RATIO,UR RAN (07/10/2019 10:36 AM RISK CONTROL MANAGER) Protein, Random 81 MG/DL [facility] Creatinine, 119 MG/DL [facility] Random Protein/CR 0.7 [facility] ratio Specimen Urine - Urine Performing Organization Address [facility] Ph one Number [facility] [address] [place] [address] * TACROLIMUS LEVEL([id number]) (07/05/2019 7:46 AM RISK CONTROL MANAGER) Tacrolimus 11.9 LABDE INTERFACE Specimen Blood Narrative Performed At LABDE INTERFACE Outside Lab Verified by Federico Phillips on 07/09/2019. Performing Organization Address [facility] [place] Ph one Number LABDE INTERFACE * URINALYSIS MICROSCOPIC REFLEX TO CULTURE (07/05/2019 7:46 AM RISK CONTROL MANAGER) WBCs,UA 10-20 (A) LABDE INTERFACE RBCs,UA 10-20 (A) LABDE INTERFACE Bacteria,UA Trace (A) LABDE INTERFACE Squamous 0-5 (A) LABDE INTERFACE Epithelial Cells Specimen Urine Narrative Performed At LABDE INTERFACE Outside Lab Verified by Federico Phillips on 07/05/2019. Performing Organization Address [facility] [place] Ph one Number LABDE INTERFACE * URINALYSIS DIPSTICK REFLEX TO CULTURE (07/05/2019 7:46 AM RISK CONTROL MANAGER) Color,UA Yellow LABDE INTERFACE Turbidity,UA Slightly Cloudy (A) Clear LABDE INTE RFACE Glucose,UA Negative LABDE INTERFACE Bilirubin,UA Negative LABDE INTERFACE Ketones,UA Negative LABDE INTERFACE Specific >=1.030 (A) 1.00 - 1.030 LABDE INTERFACE [place]-Urine Blood,UA 2+ (A) Negative LABDE INTERFACE pH,UA 5.0 LABDE INTERFACE Protein,UA 2+ (A) Negative LABDE INTERFACE Urobilinogen,UA 0.2 (A) 0.2 - 1.0 LABDE INTERFAC E Nitrite,UA Negative LABDE INTERFACE Leukocytes,UA Trace (A) Negative LABDE INTERFACE Specimen Urine Narrative Performed At LABDE INTERFACE Outside Lab Verified by Federico Phillips on 07/05/2019. Performing Organization Address [facility] Ph one Number LABDE INTERFACE * URIC ACID (07/05/2019 7:46 AM RISK CONTROL MANAGER) Uric Acid 6.8 LABDE INTERFACE Specimen Blood Narrative Performed At LABDE INTERFACE Outside Lab Verified by Federico Phillips on 07/05/2019. Performing Organization Address [facility] Ph one Number LABDE INTERFACE * PROTEIN/CR RATIO,UR RAN (07/05/2019 7:46 AM RISK CONTROL MANAGER) Protein, Random 86 (H) 0 - 20 LABDE INTERFAC E Creatinine, 206.5 (H) 0.0 - 50.0 LABDE INTERFACE Random Protein/CR 0.42 LABDE INTERFACE ratio Specimen Urine - Urine Narrative Performed At LABDE INTERFACE Outside Lab Verified by Federico Phillips on 07/05/2019. Performing Organization Address [facility] Ph one Number LABDE INTERFACE * PHOSPHORUS (07/05/2019 7:46 AM RISK CONTROL MANAGER) Phosphorus 2.9 LABDE INTERFACE Specimen Blood Narrative Performed At LABDE INTERFACE Outside Lab Verified by Federico Phillips on 07/05/2019. Performing Organization Address [facility] one Number LABDE INTERFACE * COMPREHENSIVE METABOLIC PANEL (07/05/2019 7:46 AM RISK CONTROL MANAGER) Sodium 138 mmol/l LABDE INTERFACE Potassium 4.9 [...] Federico Phillips on 07/05/2019. Performing Organization Address [facility] Ph one Number LABDE INTERFACE * CBC AND DIFF (07/05/2019 7:46 AM RISK CONTROL MANAGER) White Blood 3.76 (L) 5.00 - 10.00 [...] Federico Phillips on 07/05/2019. Performing Organization Address City/State/[facility] [place] Ph one Number LABDE INTERFACE * TACROLIMUS LEVEL([id number]) (07/02/2019 8:54 AM RISK CONTROL MANAGER) Tacrolimus 11.8 LABDE INTERFACE Specimen Blood Narrative Performed At LABDE INTERFACE Outside Lab Verified by Federico Phillips on 07/05/2019. Performing Organization Address City/[facility] [place] Ph one Number LABDE INTERFACE * URINALYSIS MICROSCOPIC REFLEX TO CULTURE (07/02/2019 8:54 AM RISK CONTROL MANAGER) WBCs,UA 2-5 (A) LABDE INTERFACE RBCs,UA 5-10 (A) LABDE INTERFACE Bacteria,UA Trace (A) LABDE INTERFACE Squamous 0-5 (A) /HPF LABDE INTERFACE Epithelial Cells Specimen Urine Narrative Performed At LABDE INTERFACE Outside Lab Verified by Kandy crowe 07/03/2019. Performing Organization Address City/[facility] [place] Ph one Number LABDE INTERFACE * URINALYSIS DIPSTICK REFLEX TO CULTURE (07/02/2019 8:54 AM RISK CONTROL MANAGER) Color,UA Yellow LABDE INTERFACE Turbidity,UA Hazy (A) Clear LABDE INTERFACE Glucose,UA Trace (A) Negative LABDE INTERFACE Bilirubin,UA Negative Negative LABDE INTERFACE Ketones,UA Negative Negative LABDE INTERFACE Specific 1.025 1.000 - 1.030 LABDE INTERFACE [place]-Urine Blood,UA 2+ (A) Negative LABDE INTERFACE pH,UA 5.0 LABDE INTERFACE Protein,UA 2+ (A) Negative LABDE INTERFACE Urobilinogen,UA 0.2 LABDE INTERFACE Nitrite,UA Negative LABDE INTERFACE Leukocytes,UA Trace (A) Negative LABDE INTERFACE Specimen Urine Narrative Performed At LABDE INTERFACE Outside Lab Verified by Kandy crowe 07/03/2019. Performing Organization Address [facility] one Number LABDE INTERFACE * URIC ACID (07/02/2019 8:54 AM RISK CONTROL MANAGER) Uric Acid 6.8 2.6 - 7.2 mg/dL LABDE INTERFAC E Specimen Blood Narrative Performed At LABDE INTERFACE Outside Lab Verified by Kandy crowe 07/03/2019. Performing Organization Address [facility] one Number LABDE INTERFACE * PROTEIN/CR RATIO,UR RAN (07/02/2019 8:54 AM RISK CONTROL MANAGER) Protein, Random 94 (H) 0 - 20 LABDE INTERFAC E Creatinine, 193.8 (H) 0.0 - 50.0 mg/dl LABDE INTERFA CE Random Protein/CR 0.48 LABDE INTERFACE ratio Specimen Urine - Urine Narrative Performed At LABDE INTERFACE Outside Lab Verified by Kandy crowe 07/03/2019. Performing Organization Address [facility] Ph one Number LABDE INTERFACE * PHOSPHORUS (07/02/2019 8:54 AM RISK CONTROL MANAGER) Phosphorus 3.5 mg/dL LABDE INTERFACE Specimen Blood Narrative Performed At LABDE INTERFACE Outside Lab Verified by Kandy crowe 07/03/2019. Performing Organization Address [facility] one Number LABDE INTERFACE * MAGNESIUM (07/02/2019 8:54 AM RISK CONTROL MANAGER) Magnesium 1.8 1.6 - 2.6 mg/dL LABDE INTERFAC E Specimen Blood Narrative Performed At LABDE INTERFACE Outside Lab Verified by Kandy crowe 07/03/2019. Performing Organization Address [facility] one Number LABDE INTERFACE * COMPREHENSIVE METABOLIC PANEL (07/02/2019 8:54 AM RISK CONTROL MANAGER) Sodium 139 mmol/L LABDE INTERFACE Potassium 4.8 [...] by Kandy crowe 07/03/2019. Performing Organization Address [facility] one Number LABDE INTERFACE * CBC AND DIFF (07/02/2019 8:54 AM RISK CONTROL MANAGER) White Blood 3.84 (L) 5.00 - 10.00 K/uL LABDE INTERF RMAON Cells RBC 2.73 (L) 4.20 - 5.40 [...] by Kandy crowe 07/03/2019. Performing Organization Address City/State/[facility] [place] Ph one Number LABDE INTERFACE * MAGNESIUM (07/02/2019 7:46 AM RISK CONTROL MANAGER) Magnesium 1.8 LABDE INTERFACE Specimen Blood Narrative Performed At LABDE INTERFACE Outside Lab Verified by Federico Phillips on 07/05/2019. Performing Organization Address City/State/[facility] Ph one Number LABDE INTERFACE * TACROLIMUS LEVEL([id number]) (06/25/2019 8:39 AM RISK CONTROL MANAGER) Tacrolimus 21.0 (HH) 2.0 - 20.0 LABDE INTERFACE Specimen Blood Narrative Performed At LABDE INTERFACE Outside Lab Verified by Marilyn Woods on 06/28/2019. Performing Organization Address City/State/[facility] [place] Ph one Number LABDE INTERFACE * URINALYSIS MICROSCOPIC REFLEX TO CULTURE (06/25/2019 8:39 AM RISK CONTROL MANAGER) WBCs,UA Few (A) LABDE INTERFACE RBCs,UA 20-40 (A) LABDE INTERFACE Specimen Urine Narrative Performed At LABDE INTERFACE Outside Lab Verified by Federico Lincoln on 06/26/2019. Performing Organization Address City/[facility] Ph one Number LABDE INTERFACE * URINALYSIS DIPSTICK REFLEX TO CULTURE (06/25/2019 8:39 AM RISK CONTROL MANAGER) Color,UA Yellow LABDE INTERFACE Turbidity,UA CleaR LABDE INTERFACE Glucose,UA 3+ (A) Negative LABDE INTERFACE Bilirubin,UA Negative LABDE INTERFACE Ketones,UA Negative LABDE INTERFACE Specific 1.020 LABDE INTERFACE [place]-Urine Blood,UA 2+ (A) Negative LABDE INTERFACE pH,UA 5.0 LABDE INTERFACE Protein,UA 2+ (A) Negative LABDE INTERFACE Urobilinogen,UA 0.2 (A) 0.2 - 1.0 LABDE INTERFAC E Nitrite,UA Negative LABDE INTERFACE Leukocytes,UA Negative LABDE INTERFACE Specimen Urine Narrative Performed At LABDE INTERFACE Outside Lab Verified by Federico Jacqueline on 06/26/2019. Performing Organization Address [facility]/State/[facility] Ph one Number LABDE INTERFACE * URIC ACID (06/25/2019 8:39 AM RISK CONTROL MANAGER) Uric Acid 5.8 LABDE INTERFACE Specimen Blood Narrative Performed At LABDE INTERFACE Outside Lab Verified by Federicomarta Ledbetterht on 06/26/2019. Performing Organization Address City/[facility] Ph one Number LABDE INTERFACE * PROTEIN/CR RATIO,UR RAN (06/25/2019 8:39 AM RISK CONTROL MANAGER) Protein, Random 60 (H) 0 - 20 LABDE INTERFAC E Creatinine, 140.8 (H) 0.0 - 50.0 LABDE INTERFACE Random Protein/CR 0.43 LABDE INTERFACE ratio Specimen Urine - Urine Narrative Performed At LABDE INTERFACE Outside Lab Verified by Federicomarta Ledbetterht on 06/26/2019. Performing Organization Address City/[facility] Ph one Number LABDE INTERFACE * PHOSPHORUS (06/25/2019 8:39 AM RISK CONTROL MANAGER) Phosphorus 3.2 LABDE INTERFACE Specimen Blood Narrative Performed At LABDE INTERFACE Outside Lab Verified by Federico Jacqueline on 06/26/2019. Performing Organization Address City/State/[facility] [place] Ph one Number LABDE INTERFACE * COMPREHENSIVE METABOLIC PANEL (06/25/2019 8:39 AM RISK CONTROL MANAGER) Sodium 137 mmol/L LABDE INTERFACE Potassium [...] * CBC AND DIFF (06/25/2019 8:39 AM RISK CONTROL MANAGER) White Blood 3.29 (L) 5.00 - [...] Federico Phillips on 06/26/2019. Performing Organization Address [facility] [place] Ph one Number LABDE INTERFACE * TACROLIMUS LEVEL([id number]) (06/21/2019 7:57 AM RISK CONTROL MANAGER) Tacrolimus 13.0 LABDE INTERFACE Specimen Blood Narrative Performed At LABDE INTERFACE Outside Lab Verified by Kandy crowe 06/25/2019. Performing Organization Address City/[facility] Ph one Number LABDE INTERFACE * URINALYSIS MICROSCOPIC REFLEX TO CULTURE (06/21/2019 7:57 AM RISK CONTROL MANAGER) WBCs,UA 5-10 (A) LABDE INTERFACE RBCs,UA 10-20 (A) LABDE INTERFACE Bacteria,UA Trace (A) LABDE INTERFACE Specimen Urine Narrative Performed At LABDE INTERFACE Outside Lab Verified by Federico Phillips on 06/21/2019. Performing Organization Address [facility] Ph one Number LABDE INTERFACE * URINALYSIS DIPSTICK REFLEX TO CULTURE (06/21/2019 7:57 AM RISK CONTROL MANAGER) Color,UA Yellow LABDE INTERFACE Turbidity,UA Slightly Cloudy (A) Clear LABDE INTE RFACE Glucose,UA 1+ (A) Negative LABDE INTERFACE Bilirubin,UA Negative LABDE INTERFACE Ketones,UA Negative LABDE INTERFACE Specific 1.020 LABDE INTERFACE [place]-Urine Blood,UA 2+ (A) Negative LABDE INTERFACE pH,UA 5.5 LABDE INTERFACE Protein,UA 2+ (A) Negative LABDE INTERFACE Urobilinogen,UA 0.2 (A) 0.2 - 1.0 LABDE INTERFAC E Nitrite,UA Negative LABDE INTERFACE Leukocytes,UA Trace (A) Negative LABDE INTERFACE Specimen Urine Narrative Performed At LABDE INTERFACE Outside Lab Verified by Federico Phillips on 06/21/2019. Performing Organization Address [facility] Ph one Number LABDE INTERFACE * URIC ACID (06/21/2019 7:57 AM RISK CONTROL MANAGER) Uric Acid 5.9 LABDE INTERFACE Specimen Blood Narrative Performed At LABDE INTERFACE Outside Lab Verified by Federicomarta Phillips on 06/21/2019. Performing Organization Address [facility] [place] Ph one Number LABDE INTERFACE * PROTEIN/CR RATIO,UR RAN (06/21/2019 7:57 AM RISK CONTROL MANAGER) Protein, Random 46 (H) 0 - 20 LABDE INTERFAC E Creatinine, 106.9 (H) 0.0 - 50.0 LABDE INTERFACE Random Protein/CR 0.43 LABDE INTERFACE ratio Specimen Urine - Urine Narrative Performed At LABDE INTERFACE Outside Lab Verified by Federicomarta Phillips on 06/21/2019. Performing Organization Address [facility] [place] Ph one Number LABDE INTERFACE * PHOSPHORUS (06/21/2019 7:57 AM RISK CONTROL MANAGER) Phosphorus 3.5 LABDE INTERFACE Specimen Blood Narrative Performed At LABDE INTERFACE Outside Lab Verified by Federico Phillips on 06/21/2019. Performing Organization Address [facility] [place] Ph one Number LABDE INTERFACE * MAGNESIUM (06/21/2019 7:57 AM RISK CONTROL MANAGER) Magnesium 2.0 LABDE INTERFACE Specimen Blood Narrative Performed At LABDE INTERFACE Outside Lab Verified by Federico Phillips on 06/21/2019. Performing Organization Address [facility] [place] Ph one Number LABDE INTERFACE * COMPREHENSIVE METABOLIC PANEL (06/21/2019 7:57 AM RISK CONTROL MANAGER) Sodium 138 mmol/L LABDE INTERFACE Potassium 5.2 [...] Federico Phillips on 06/21/2019. Performing Organization Address City/State/[facility] [place] Ph one Number LABDE INTERFACE * CBC AND DIFF (06/21/2019 7:57 AM RISK CONTROL MANAGER) White Blood 3.51 (L) 5.00 - 10.00 [...] Federicomarta Phillips on 06/21/2019. Performing Organization Address City/State/[facility] [place] Ph one Number LABDE INTERFACE * TACROLIMUS LEVEL([id number]) (06/18/2019 7:49 AM RISK CONTROL MANAGER) Tacrolimus 9.9 LABDE INTERFACE Specimen Blood Narrative Performed At LABDE INTERFACE Outside Lab Verified by Federicomarta Phillips on 06/25/2019. Performing Organization Address City/State/[facility] [place] Ph one Number LABDE INTERFACE * URINALYSIS MICROSCOPIC REFLEX TO CULTURE (06/18/2019 7:49 AM RISK CONTROL MANAGER) Bacteria,UA Trace (A) LABDE INTERFACE Specimen Urine Narrative Performed At LABDE INTERFACE Outside Lab Verified by Federicomarta Phillips on 06/18/2019. Performing Organization Address [facility] [place] Ph one Number LABDE INTERFACE * URINALYSIS DIPSTICK REFLEX TO CULTURE (06/18/2019 7:49 AM RISK CONTROL MANAGER) Color,UA Yellow LABDE INTERFACE Turbidity,UA Slightly Cloudy (A) Clear LABDE INTE RFACE Glucose,UA Trace (A) Negative LABDE INTERFACE Bilirubin,UA Negative LABDE INTERFACE Ketones,UA Negative LABDE INTERFACE Specific 1.025 LABDE INTERFACE [place]-Urine Blood,UA 2+ (A) Negative LABDE INTERFACE pH,UA 5.5 LABDE INTERFACE Protein,UA 2+ (A) Negative LABDE INTERFACE Urobilinogen,UA 0.2 (A) 0.2 - 1.0 LABDE INTERFAC E Nitrite,UA Negative LABDE INTERFACE Leukocytes,UA 1+ (A) Negative LABDE INTERFACE Specimen Urine Narrative Performed At LABDE INTERFACE Outside Lab Verified by Federico Phillips on 06/18/2019. Performing Organization Address [facility] [place] Ph one Number LABDE INTERFACE * URIC ACID (06/18/2019 7:49 AM RISK CONTROL MANAGER) Uric Acid 6.8 LABDE INTERFACE Specimen Blood Narrative Performed At LABDE INTERFACE Outside Lab Verified by Federicomarta Ledbetterht on 06/18/2019. Performing Organization Address [facility] [place] Ph one Number LABDE INTERFACE * PROTEIN/CR RATIO,UR RAN (06/18/2019 7:49 AM RISK CONTROL MANAGER) Creatinine, 151.9 (H) 0.0 - 50.0 LABDE INTERFACE Random Protein, Random 69 (H) 0 - 20 LABDE INTERFAC E Protein/CR 0.45 LABDE INTERFACE ratio Specimen Urine - Urine Narrative Performed At LABDE INTERFACE Outside Lab Verified by Federicomarta Ledbetterht on 06/18/2019. Performing Organization Address [facility] [place] Ph one Number LABDE INTERFACE * PHOSPHORUS (06/18/2019 7:49 AM RISK CONTROL MANAGER) Phosphorus 3.8 LABDE INTERFACE Specimen Blood Narrative Performed At LABDE INTERFACE Outside Lab Verified by Federico Phillips on 06/18/2019. Performing Organization Address [facility] [place] Ph one Number LABDE INTERFACE * MAGNESIUM (06/18/2019 7:49 AM RISK CONTROL MANAGER) Magnesium 2.0 LABDE INTERFACE Specimen Blood Narrative Performed At LABDE INTERFACE Outside Lab Verified by Federico Phillips on 06/18/2019. Performing Organization Address [facility] one Number LABDE INTERFACE * COMPREHENSIVE METABOLIC PANEL (06/18/2019 7:49 AM RISK CONTROL MANAGER) Sodium 139 mmol/L LABDE INTERFACE Potassium 5.0 [...] Federico Phillips on 06/18/2019. Performing Organization Address City/[facility] Ph one Number LABDE INTERFACE * CBC AND DIFF (06/18/2019 7:49 AM RISK CONTROL MANAGER) White Blood 3.91 (L) 5.00 - 10.00 [...] City/State/Zipcode Ph one Number LABDE INTERFACE * CULTURE-URINE W/SENSITIVITY (06/12/2019 8:16 AM RISK CONTROL MANAGER) Battery Name URINE CULTURE MAIN LAB Specimen URINE KU MAIN LAB Description Special NONE KU MAIN LAB Requests Culture <10,000 organisms/ml MAIN LAB CONTAMINANT Report Status FINAL MAIN LAB 06/13/2019 Specimen Urine Performing Organization Address City[facility] Ph one Number MAIN LAB [address] [place] [address] 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
--- OUTSIDE RECORDS SUMMARY | 2019-09-28 08:49 | XMS REPORT | Encounter Summary ---
Author Author [facility] Organization [facility] Address Unknown Phone Unavailable Care Team Providers Care Ceo And President Name Role Phone Dania Barksdale MD PCP Jose Huff DO Unavailable Reason for Visit * Reason Comments Results Encounter Details Care Team Description Date Type Department Karis Alfaro RN Results 06/05/[address] [address] Social History Date Tobacco Use Types Packs/Day [...] Status Date of Assessment Functional Status Response 06/04/2019 Does the patient have a hearing impairment: Yes 06/04/2019 Does the patient have a visual impairment: Yes 06/04/2019 Does the patient have impaired ambulation: Yes 06/04/2019 Does the patient have an activity of daily living Ye s (ADL) impairment: 06/04/2019 Does the patient have an instrumental activity of No daily living (IADL) impairment: Date of Assessment Cognitive Status Response 06/04/2019 Does the patient have a cognitive impairment: No documented as of this encounter Miscellaneous Notes * Addendum Note - Karis Alfaro RN - 06/06/2019 8:23 AM HARVEST SUPERVISOR Addended by: KARIS ALFARO on: 06/06/2019 08:23 AM Modules accepted: Orders EST SUPERVISOR * Telephone Encounter - Karis Alfaro RN - 06/05/2019 2:44 PM HARVEST SUPERVISOR Reviewed pt's clinic note from 06/05. US completed for assessment of drain placem ent. Received call from Radiologist that there is concern for urine leak and art erial RI's elevated. Discussed with Dr. Idania Harrison and Dr. Nielsen. Repeat CMP comp leted for assessment of creat after HD yesterday. Dr. Nielsen recommended biopsy. Will hold on biopsy for now, pt will repeat labs on to assess need for continued HD. Pt will continue to monitor output of CORI drain. Will restart pt on pred 5mg daily at this time. Pt called and updated. Pt requesting refill on tr amadol, refilled. Repeat creat was 6.26, no further intervention needed. EST SUPERVISOR documented in this encounter Plan of Treatment Care Team Description Date Type Specialty Berta Harrison MD [address] [place], [place] [id number] Doroteo Enamorado MD [address] [place], [place] [id number] 10/02/2019 Hospital Radiology Encounter documented as of this encounter Goals Goal Patient Associated Recent Progress Patient-Stat Aut hor Goal Type Problems ed? Recover from illness Hospital Rajani Ac RN documented as of this encounter Results * TRANSFERRIN (06/07/2019 8:51 AM HARVEST SUPERVISOR) Transferrin 139 (L) 185 - 336 MG/DL KU MAIN LAB Specimen Blood Performing Organization Address [facility] Ph one Number MAIN LAB [address] [place] [address] * IRON + BINDING CAPACITY + %SAT+ FERRITIN (06/07/2019 8:51 AM HARVEST SUPERVISOR) Iron 55 50 - 185 MCG/DL KU MAIN LAB Iron 207 (L) 270 - 380 MCG/DL KU MAIN LAB Binding-TIBC % Saturation 27 (L) 28 - 42 % KU MAIN LAB Ferritin 883 (H) 30 - 300 NG/ML KU MAIN LAB Specimen Blood Performing Organization Address [facility]/Zipcode Ph one Number KU MAIN LAB [address] [place] [address] documented in this encounter Visit Diagnoses Diagnosis Iron deficiency anemia, unspecified iro n deficiency anemia type documented in this encounter
--- OUTSIDE RECORDS SUMMARY | 2019-09-28 08:49 | XMS REPORT | Encounter Summary ---
Author Author [facility] Organization [facility] Address Unknown Phone Unavailable Care Team Providers Care Dental Practitioner Name Role Phone Dania Barksdale MD PCP Jose Huff DO Unavailable Encounter Details Care Team Description Date Type Department Berta Harrison MD [address] [place] [address] 06/05/2019 [facility] [address] [address] Social History Date Tobacco Use [...] Medical Use to 1 each 0 Supply mis monitor blood pressure as directed. omeprazole DR(+) Take 40 mg by 0 (PRILOSEC) 40 mg capsule mouth daily before breakfast. pregabalin (LYRICA) 75 mg Take 75 mg by 0 capsule mouth three times daily. tamsulosin (FLOMAX) 0.4 Take 0.4 mg 0 mg capsule by mouth daily. Do not crush, chew or open capsules. Take 30 minutes following the same meal each day. traZODone (DESYREL) 100 Take 100 mg [...] TbEC tablets by tablet mouth twice daily. 06/01/2019 06/11/2019 nystatin (MYCOSTATIN) Swish and 200 mL 0 100,000 units/mL oral Swallow 5 mL suspension by mouth as directed four times daily for 10 days. 06/01/2019 07/10/2019 tacrolimus (PROGRAF) 1 mg Take five 480 capsule 11 capsule capsules by mouth twice daily. 06/01/2019 06/05/2019 traMADol (ULTRAM) 50 mg Take one 20 tablet 0 tablet tablet by mouth every 6 hours as needed. 06/01/2019 07/24/2019 trimethoprim/sulfamethoxa Take one 30 tablet 11 zole (BACTRIM) 80/400 mg tablet by tablet mouth three times weekly. MWF 06/04/2019 09/20/2019 valGANciclovir (VALCYTE) Take one 60 tablet 5 450 mg tablet tablet by mouth twice weekly. Mon/thurs documented as of this encounter Plan of Treatment Care Team Description Date Type Specialty Berta Harrison MD [address] [place] [address] Doroteo Enamorado MD [address] [place] [address] 10/02/2019 Hospital Radiology Encounter documented as of this encounter Goals Goal Patient Associated Recent Progress Patient-Stat Aut hor Goal Type Problems ed? Recover from illness [facility] Rajani Gallego RN documented as of this encounter Procedures Comments Procedure Name Priority Date/Time Associated Diag nosis CHEST 2 VIEWS Routine 06/05/2019 Pre-transplant evaluation 12:09 PM CRM BUSINESS ANALYST for end stage renal disease ESRD (end stage renal disease) ([facility]) documented in this encounter Results * CHEST 2 VIEWS (06/05/2019 12:09 PM CRM BUSINESS ANALYST) Specimen Impressions Performed At 1. Mild cardiomegaly with decreased pulmonary venou s congestion. K[facility] RAD RESULTS 2. Opacities in left lung base, likel y atelectasis and/or scar. Finalized by Antoinette Conroy M.D. on 1:55 PM. Dictated by Antoinette Conroy M.D. on 06/05/2019 1:54 PM. Narrative Performed At CHEST 2 VIEWS KU RAD RESULTS Indication: Pre Renal Transplant Evalua tion. Comparison: May 30, 2019 Findings: The heart remains mildly enlarged. Ther e is decreased pulmonary venous congestion. Opacities particularly in t he left lung base likely represent atelectasis and/or scar. No gross pleur al effusion or pneumothorax is identified. Procedure Note Interface, Radiant Results - 06/05/2019 1:58 PM CRM BUSINESS ANALYST CHEST 2 VIEWS Indication: Pre Renal Transplant Evaluation. Comparison: May 30, 2019 Findings: The heart remains mildly enlarged. There is decreased pulmonary venous congestion. Opacities particularly in the left lung base likely represent atelectasis and/or scar. No gross pleural effusion or pneumothorax is identified. IMPRESSION 1. Mild cardiomegaly with decreased pul monary venous congestion. 2. Opacities in left lung base, likely atelectasis and/or scar. Finalized by Antoinette Conroy M.D. on 06/05/2019 1:55 PM. Dictated by Antoinette Conroy M.D. on 06/05/2019 1:54 PM. Performing Organization Address City/State/Zipcode Ph one Number KU RAD RESULTS documented in this encounter Visit Diagnoses Diagnosis Pre-transplant evaluation for end stage renal disease Other specified pre-operative examinati on ESRD (end stage renal disease) (HCC) End stage renal disease documented in this encounter
--- OUTSIDE RECORDS SUMMARY | 2019-09-28 08:49 | XMS REPORT | Encounter Summary ---
Author Author [facility] Organization [facility] Address Unknown Phone Unavailable Care Team Providers Care Fnps Name Role Phone Dania Barksdale MD PCP Jose Huff DO Unavailable Encounter Details Care Team Description Date Type Department Verónica Palm MD [address] [address] Research subject (Primary Dx) 06/08/2019 Orders Only [facility] [address] [address] Social History Date Tobacco Use [...] Date Type Specialty Berta Harrison MD [address] [place] [address] Doroteo Enamorado MD [address] [place] [address] [phone] 10/02/2019 Hospital Radiology Encounter documented as of this encounter Goals Goal Patient Associated Recent Progress Patient-Stat Aut hor Goal Type Problems ed? Recover from illness Hospital No Rajani Gallego RN documented as of this encounter Results * RESEARCH BLOOD COLLECTION ONLY (06/12/2019 8:11 AM CONCRETE MIXER) Research Blood COLLECTED REFERENCE LAB Collection Only Specimen Blood Performing Organization Address City/State/[place] Ph one Number REFERENCE LAB REFERENCE LAB See results for address. documented in this encounter Visit Diagnoses Diagnosis Research subject documented in this encounter
--- OUTSIDE RECORDS SUMMARY | 2019-09-28 08:49 | XMS REPORT | Encounter Summary ---
Author Author [facility] Organization [facility] Address Unknown Phone Unavailable Care Team Providers Care Sleep Technologist Name Role Phone Dania Barksdale MD PCP Jose Huff DO Unavailable Encounter Details Care Team Description Date Type Department Berta Harrison MD [address] [place], [place] [id number] 06/06/2019 [facility] Social History Date Tobacco [...] Medical Use to 1 each 0 Supply [facility] [place] blood pressure as directed. omeprazole DR(+) [...] directed four times daily for 10 days. 06/05/2019 07/03/2019 prednisone (DELTASONE) 5 Take one [...] Date Type Specialty Berta Harrison MD [address] [place], [place] [id number] Doroteo Enamorado MD [address] [place], [place] [phone] 10/02/2019 Hospital Radiology Encounter documented as of this encounter Goals Goal Patient Associated Recent Progress Patient-Stat Aut hor Goal Type Problems ed? Recover from illness [facility] Rajani Ac RN documented as of this encounter Procedures Comments Procedure Name Priority Date/Time Associated Diag nosis HC C DIFFICILE BY PCR Routine 06/06/2019 Kidney t ransplanted 9:50 AM CERTIFIED ENERGY MANAGER documented in this encounter Results * C DIFFICILE BY PCR (06/06/2019 9:50 AM CERTIFIED ENERGY MANAGER) C. difficile Negative: Repeat testing KU MAIN LAB Toxin B PCR within 7 days of a negative result will not be performed. Testing after 7 days may be performed if clinically indicated. 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
--- OUTSIDE RECORDS SUMMARY | 2019-09-28 08:49 | XMS REPORT | Encounter Summary ---
Author Author [facility] Organization [facility] Address Unknown Phone Unavailable Care Team Providers Care Die Equipment Operator Name Role Phone Dania Barksdale MD PCP Jose Huff DO Unavailable Encounter Details Care Team Description Date Type Department Berta Harrison MD [address] [place], [place] [id number] 06/07/2019 [facility] Social History Date Tobacco Use [...] Medical Use to 1 each 0 Supply [facility] monitor blood pressure as directed. omeprazole DR(+) [...] Date Type Specialty Berta Harrison MD [address] [place] [address] Doroteo Enamorado MD [address] [place] [address] 10/02/2019 Hospital Radiology Encounter documented as of this encounter Goals Goal Patient Associated Recent Progress Patient-Stat Aut hor Goal Type Problems ed? Recover from illness [facility] Rajani Gallego RN documented as of this encounter Procedures Comments Procedure Name Priority Date/Time Associated Diag nosis UA REFLEX CULTURE LABEL 06/07/2019 8:57 AM AREA SAFETY MANAGER URINALYSIS MICROSCOPIC Routine 06/07/2019 Kidney transplanted REFLEX TO CULTURE 8:57 AM AREA SAFETY MANAGER URINALYSIS MICROSCOPIC Routine 06/07/2019 Kidney transplanted REFLEX TO CULTURE 8:57 AM AREA SAFETY MANAGER URINALYSIS DIPSTICK Routine 06/07/2019 Kidney tra nsplanted REFLEX TO CULTURE 8:57 AM AREA SAFETY MANAGER HC URINALYSIS UAR Routine 06/07/2019 Kidney trans planted 8:57 AM AREA SAFETY MANAGER HC TP/CR RATIO, RANDOM Routine 06/07/2019 Kidney transplanted 8:57 AM AREA SAFETY MANAGER PROTEIN/CR RATIO,UR RAN Routine 06/07/2019 Kidney transplanted 8:57 AM AREA SAFETY MANAGER HC CULTURE-URINE 06/07/2019 8:57 AM AREA SAFETY MANAGER HC TRANSFERIN Specimen 06/07/2019 Iron deficiency anemia, in Lab 8:51 AM AREA SAFETY MANAGER unspecified iron deficiency anemia type HC FK 506 Routine 06/07/2019 Kidney transpla nted 8:51 AM AREA SAFETY MANAGER HC CBC W/ AUTOMATED DIFF Routine 06/07/2019 Kidne y transplanted 8:51 AM AREA SAFETY MANAGER HC URIC ACID Routine 06/07/2019 Kidney transpla nted 8:51 AM AREA SAFETY MANAGER TRANSFERRIN Specimen 06/07/2019 Iron deficiency anemia, in Lab 8:51 AM AREA SAFETY MANAGER unspecified iron deficiency anemia type HC PHOSPHOROUS, SERUM Routine 06/07/2019 Kidney t ransplanted 8:51 AM AREA SAFETY MANAGER HC MAGNESIUM Routine 06/07/2019 Kidney transpla nted 8:51 AM AREA SAFETY MANAGER HC COMPREHENSIVE Routine 06/07/2019 Kidney transp lanted METABOLIC PANEL 8:51 AM AREA SAFETY MANAGER documented in this encounter Results * CULTURE-URINE W/SENSITIVITY (06/07/2019 8:57 AM AREA SAFETY MANAGER) Battery Name URINE CULTURE MAIN LAB Specimen URINE MAIN LAB Description Special NONE MAIN LAB Requests Culture NO GROWTH [facility] MAIN LAB Report Status FINAL MAIN LAB 06/08/2019 Specimen Urine Performing Organization Address [facility] Ph one Number MAIN LAB [address] [place] [address] * UA REFLEX CULTURE LABEL (06/07/2019 8:57 AM AREA SAFETY MANAGER) UA Reflex Criteria for reflex to culture KU TODD N LAB Culture are WBC>10, Positive Nitrit e, and/or >=+1 leukocytes. If quantity is not sufficient, an addendum will follow. Specimen Performing Organization Address City/[facility]/Zipcode Ph one Number MAIN LAB [address] [place] [phone] * URINALYSIS MICROSCOPIC REFLEX TO CULTURE (06/07/2019 8:57 AM AREA SAFETY MANAGER) WBCs,UA DUPLICATE ORDER 0 - 2 /HPF MAIN LAB RBCs,UA DUPLICATE ORDER 0 - 3 /HPF KU MAIN LAB Comment,UA DUPLICATE ORDER KU MAIN LAB Specimen Urine Performing Organization Address [facility] one Number KU MAIN LAB [address] [place] [address] * URINALYSIS DIPSTICK REFLEX TO CULTURE (06/07/2019 8:57 AM AREA SAFETY MANAGER) Color,UA DUPLICATE ORDER KU MAIN LAB Turbidity,UA DUPLICATE ORDER CLEAR [facility] MAIN LAB Specific DUPLICATE ORDER 1.003 - 1.035 KU MAIN LAB [place]-Urine pH,UA DUPLICATE ORDER 5.0 - 8.0 KU MAIN LAB Protein,UA DUPLICATE ORDER NEG KU MAIN LAB Glucose,UA DUPLICATE ORDER NEG KU MAIN LAB Ketones,UA DUPLICATE ORDER NEG KU MAIN LAB Bilirubin,UA DUPLICATE ORDER NEG KU MAIN LAB Blood,UA DUPLICATE ORDER NEG KU MAIN LAB Urobilinogen,UA DUPLICATE ORDER NORMAL KU MAIN LAB Nitrite,UA DUPLICATE ORDER NEG KU MAIN LAB Leukocytes,UA DUPLICATE ORDER NEG KU MAIN LAB Urine Ascorbic DUPLICATE ORDER NEG KU MAIN LAB Acid, UA Specimen Urine Performing Organization Address [facility] one Number KU MAIN LAB [address] [place] [address] * PROTEIN/CR RATIO,UR RAN (06/07/2019 8:57 AM AREA SAFETY MANAGER) Protein, Random 47 MG/DL KU MAIN LAB Creatinine, 62 MG/DL KU MAIN LAB Random Protein/CR 0.8 KU MAIN LAB ratio Specimen Urine - Urine Performing Organization Address [facility] one Number KU MAIN LAB [address] [place] [address] * URINALYSIS MICROSCOPIC REFLEX TO CULTURE (06/07/2019 8:57 AM AREA SAFETY MANAGER) WBCs,UA 0-2 0 - 2 /HPF KU MAIN LAB RBCs,UA 0-2 0 - 3 /HPF KU MAIN LAB Comment,UA Criteria for reflex to culture K[facility] TODD N LAB are WBC>10, Positive Nitrite, and/or >=+1 leukocytes. If quantity is not sufficient, an addendum will follow. Specimen Urine Performing Organization Address [facility] Ph one Number KU MAIN LAB [address] [place] [address] * URINALYSIS DIPSTICK REFLEX TO CULTURE (06/07/2019 8:57 AM AREA SAFETY MANAGER) Color,UA STRAW KU MAIN LAB Turbidity,UA CLEAR CLEAR [facility] MAIN LAB Specific 1.009 1.003 - 1.035 MAIN LAB [place] pH,UA 6.0 5.0 - 8.0 MAIN LAB Protein,UA 1+ (A) NEG MAIN LAB Glucose,UA 3+ (A) NEG KU MAIN LAB Ketones,UA TRACE (A) NEG MAIN LAB Bilirubin,UA NEG NEG K[facility] MAIN LAB Blood,UA 2+ (A) NEG MAIN LAB Urobilinogen,UA NORMAL NORMAL MAIN LAB Nitrite,UA NEG NEG MAIN LAB Leukocytes,UA 1+ (A) NEG MAIN LAB Urine Ascorbic NEG NEG MAIN LAB Acid, UA Specimen Urine Performing Organization Address City/[facility] Ph one Number MAIN LAB [address] [place] [address] * PROTEIN/CR RATIO,UR RAN (06/07/2019 8:57 AM AREA SAFETY MANAGER) Protein, Random DUPLICATE ORDER MG/DL MAIN LAB Creatinine, DUPLICATE ORDER MG/DL MAIN LAB Random Protein/CR DUPLICATE ORDER MAIN LAB ratio Specimen Urine - Urine Performing Organization Address [facility] Ph one Number MAIN LAB [address] [place] [address] * TACROLIMUS LEVEL([id number]) (06/07/2019 8:51 AM AREA SAFETY MANAGER) Tacrolimus 8.9 2 - 15 NG/ML MAIN LAB Comment: Target concentrations vary by type of transplant, patient response, concomitant immunosuppression and post-transplant time interval. Test was performed on whole blood using [employer] QMS reagent and a Liliana [place] AU analyzer. Specimen Blood Performing Organization Address [facility] Ph one Number MAIN LAB [address] [place] [address] * URIC ACID (06/07/2019 8:51 AM AREA SAFETY MANAGER) Uric Acid 9.4 (H) 4.0 - 8.0 MG/DL MAIN LAB Specimen Blood Performing Organization Address [facility] Ph one Number MAIN LAB [address] [place] [address] * PHOSPHORUS (06/07/2019 8:51 AM AREA SAFETY MANAGER) Phosphorus 6.5 (H)Comment: NOTE NEW 2.0 - 4.5 MG/DL [facility] REFER[facility]ANG[facility] Specimen Blood Performing Organization Address [facility] one Number KU MAIN LAB [address] [place] [address] * MAGNESIUM (06/07/2019 8:51 AM AREA SAFETY MANAGER) Magnesium 1.7 1.6 - 2.6 mg/dL KU MAIN LAB Specimen Blood Performing Organization Address [facility] one Number KU MAIN LAB [address] [place] [address] * COMPREHENSIVE METABOLIC PANEL (06/07/2019 8:51 AM AREA SAFETY MANAGER) Sodium 136 (L) 137 - 147 MMOL/L KU MAIN LAB Potassium 4.5 3.5 - 5.1 MMOL/L KU MAIN LAB Chloride 100 98 - 110 MMOL/L KU MAIN LAB Glucose 302 (H) 70 - 100 MG/DL KU MAIN LAB Blood Urea 62 (H) 7 - 25 MG/DL KU MAIN LAB Nitrogen Creatinine 5.44 (H) 0.4 - 1.24 MG/DL KU MAIN LAB Calcium 8.4 (L) 8.5 - 10.6 MG/DL KU MAIN LAB Total Protein 5.9 (L) 6.0 - 8.0 G/DL KU MAIN LAB Total Bilirubin 0.5 0.3 - 1.2 MG/DL KU MAIN LAB Albumin 3.5 3.5 - 5.0 G/DL KU MAIN LAB Alk Phosphatase 71 25 - 110 U/L KU MAIN LAB AST (SGOT) 14 7 - 40 U/L KU MAIN LAB CO2 19 (L) 21 - 30 MMOL/L KU MAIN LAB ALT (SGPT) 8 7 - 56 U/L KU MAIN LAB Anion Gap 17 (H) 3 - 12 KU MAIN LAB eGFR Non 11 (L) >60 mL/min KU MAIN LAB Comment: [place] The eGFR is not validated f or use in drug dosing adjustments. Continue to use estimated creatinine clearance per dosing reference text. Please contact the Clinical Pharmacist for questions. eGFR 14 (L) >60 mL/min KU MAIN LAB [place] Comment: The eGFR is not validated for use in drug dosing adjustments. Continue to use estimated creatinine clearance per dosing reference text. Please contact the Clinical Pharmacist for questions. Specimen Blood Performing Organization Address [facility] one Number KU MAIN LAB [address] [place] [address] * CBC AND DIFF (06/07/2019 8:51 AM AREA SAFETY MANAGER) White Blood 7.4 4.5 - 11.0 K/UL KU MAIN LAB Cells RBC 2.84 (L) 4.4 - 5.5 M/UL KU MAIN LAB Hemoglobin 9.4 (L) 13.5 - 16.5 GM/DL KU MAIN LAB Hematocrit 27.5 (L) 40 - 50 % KU MAIN LAB MCV 96.7 80 - 100 FL KU MAIN LAB MCH 33.0 26 - 34 PG KU MAIN LAB MCHC 34.1 32.0 - 36.0 G/DL KU MAIN LAB RDW 14.5 11 - 15 % KU MAIN LAB Platelet Count 154 150 - 400 K/UL KU MAIN LAB MPV 9.4 7 - 11 FL KU MAIN LAB DIFFA KU MAIN LAB Neutrophils 90 (H) 41 - 77 % KU MAIN LAB Lymphocytes 1 (L) 24 - 44 % KU MAIN LAB Monocytes 7 4 - 12 % KU MAIN LAB Eosinophils 2 0 - 5 % KU MAIN LAB Basophils 0 0 - 2 % KU MAIN LAB Absolute 6.60 1.8 - 7.0 K/UL KU MAIN LAB Neutrophil Count Absolute Lymph 0.10 (L) 1.0 - 4.8 K/UL KU MAIN LAB Count Absolute 0.50 0 - 0.80 K/UL KU MAIN LAB Monocyte Count Absolute 0.10 0 - 0.45 K/UL KU MAIN LAB Eosinophil Count Absolute 0.00 0 - 0.20 K/UL KU MAIN LAB Basophil Count Specimen Blood Performing Organization Address [facility] Ph one Number KU MAIN LAB [address] [place] [address] * IRON + BINDING CAPACITY + %SAT+ FERRITIN (06/07/2019 8:51 AM AREA SAFETY MANAGER) Iron 55 50 - 185 MCG/DL KU MAIN LAB Iron 207 (L) 270 - 380 MCG/DL KU MAIN LAB Binding-TIBC % Saturation 27 (L) 28 - 42 % KU MAIN LAB Ferritin 883 (H) 30 - 300 NG/ML KU MAIN LAB Specimen Blood Performing Organization Address City/[facility] Ph one Number KU MAIN LAB [address] [place] [address] * TRANSFERRIN (06/07/2019 8:51 AM AREA SAFETY MANAGER) Transferrin 139 (L) 185 - 336 MG/DL KU MAIN LAB Specimen Blood Performing Organization Address City/State/Zipcode Ph one Number KU MAIN LAB [address] [place] [address] documented in this encounter Visit Diagnoses Diagnosis Iron deficiency anemia, unspecified iro n deficiency anemia type Kidney transplanted Kidney replaced by transplant documented in this encounter
--- OUTSIDE RECORDS SUMMARY | 2019-09-28 08:49 | XMS REPORT | Encounter Summary ---
Author Author [facility] Organization [facility] Address Unknown Phone Unavailable Care Team Providers Care Pony Trimmer Name Role Phone Dania Barksdale MD PCP Jose Huff DO Unavailable Encounter Details Care Team Description Date Type Department Berta Harrison MD [address] [place], [place] [id number] 06/05/2019 [facility] Social History Date Tobacco [...] Medical Use to 1 each 0 Supply [facility] [place] blood pressure as directed. omeprazole DR(+) [...] Date Type Specialty Berta Harrison MD [address] [place] [address] Doroteo Enamorado MD [address] [place] [address] 10/02/2019 Hospital Radiology Encounter documented as of this encounter Goals Goal Patient Associated Recent Progress Patient-Stat Aut hor Goal Type Problems ed? Recover from illness [facility] Rajani Gallego RN documented as of this encounter Procedures Comments Procedure Name Priority Date/Time Associated Diag nosis IRON + BINDING CAPACITY + Add on 06/05/2019 Iron deficiency anemia, %SAT+ FERRITIN 1:46 PM GAMBLING BOX PERSON unspecified NOTES Routine 06/05/2019 1:46 PM GAMBLING BOX PERSON TRANSFERRIN Add on 06/05/2019 Iron deficiency anemia, 1:46 PM GAMBLING BOX PERSON unspecified HC COMPREHENSIVE Routine 06/05/2019 Kidney transp lanted METABOLIC PANEL 1:46 PM GAMBLING BOX PERSON documented in this encounter Results * TRANSFERRIN (06/05/2019 1:46 PM GAMBLING BOX PERSON) Transferrin SPECIMEN EXCEEDS STABILITY OF 185 - 336 MG/DL [facility] TRANSFERRIN/O2 MESSAGED RDR. CIBRIK/2225/MNW Specimen Performing Organization Address City/State/Zipcode Ph one Number [facility] [address] [place] [address] * IRON + BINDING CAPACITY + %SAT+ FERRITIN (06/05/2019 1:46 PM GAMBLING BOX PERSON) Iron SPECIMEN EXCEEDS STABILITY OF 50 - 185 MCG/DL [facility] TRANSFERRIN/O2 MESSAGED RDR. CIBRIK/2225/MNW Iron SPECIMEN EXCEEDS STABILITY OF 270 - 380 MCG/DL [facility] Binding-TIBC TRANSFERRIN/O2 MESSAGED RDR . CIBRIK/2225/MNW % Saturation SPECIMEN EXCEEDS STABILITY OF 28 - 42 % [facility] TRANSFERRIN/O2 MESSAGED RDR. CIBRIK/2225/MNW Ferritin SPECIMEN EXCEEDS STABILITY OF 30 - 300 NG/ML [facility] TRANSFERRIN/O2 MESSAGED RDR. CIBRIK/2225/MNW Specimen Performing Organization Address City/[facility] Ph one Number [facility] [address] [place] [address] * NOTES (06/05/2019 1:46 PM GAMBLING BOX PERSON) Specimen Notes PER KARIS ALFARO [facility] REFERENCE LAB ONLY Specimen Performing Organization Address [facility] Ph one Number REFERENCE LAB REFERENCE LAB See results for address. * COMPREHENSIVE METABOLIC PANEL (06/05/2019 1:46 PM GAMBLING BOX PERSON) Sodium 141 137 - 147 MMOL/L [facility] Potassium 3.9 3.5 - 5.1 MMOL/L [facility] Chloride 105 98 - 110 MMOL/L [facility] Glucose 168 (H) 70 - 100 MG/DL [facility] Blood Urea 71 (H) 7 - 25 MG/DL [facility] Nitrogen Creatinine 6.26 (H) 0.4 - 1.24 MG/DL [facility] Calcium 8.2 (L) 8.5 - 10.6 MG/DL [facility] Total Protein 6.0 6.0 - 8.0 G/DL [facility] Total Bilirubin 0.4 0.3 - 1.2 MG/DL [facility] Albumin 3.6 3.5 - 5.0 G/DL [facility] Alk Phosphatase 76 25 - 110 U/L [facility] AST (SGOT) 16 7 - 40 U/L [facility] CO2 23 21 - 30 MMOL/L [facility] ALT (SGPT) 10 7 - 56 U/L [facility] Anion Gap 13 (H) 3 - 12 [facility] eGFR Non 10 (L) >60 mL/min [facility] Comment: Japanese The eGFR is not validated f or use in drug dosing adjustments. Continue to use estimated creatinine clearance per dosing reference text. Please contact the Clinical Pharmacist for questions. eGFR 12 (L) >60 mL/min [facility] Japanese Comment: The eGFR is not validated for use in drug dosing adjustments. Continue to use estimated creatinine clearance per dosing reference text. Please contact the Clinical Pharmacist for questions. Specimen Blood Performing Organization Address City/State/Zipcode Ph one Number [facility] [address] [place] [address] 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 Iron deficiency anemia, unspecified documented in this encounter
--- OUTSIDE RECORDS SUMMARY | 2019-09-28 08:49 | XMS REPORT | Encounter Summary ---
Author Author [facility] Organization [facility] Address Unknown Phone Unavailable Care Team Providers Care Assistant To The Dean Name Role Phone Dania Barksdale MD PCP Jose Huff DO Unavailable Encounter Details Care Team Description Date Type Department Berta Harrison MD [address] [place] [address] 06/05/2019 [facility] [address] [address] Social History Date Tobacco Use [...] Type Specialty Berta Harrison MD [address] [place] [address] Doroteo Enamorado MD [address] [place] [address] 10/02/2019 Hospital Radiology Encounter documented as of this encounter Goals Goal Patient Associated Recent Progress Patient-Stat Aut hor Goal Type Problems ed? Recover from illness [facility] Rajani Ac RN documented as of this encounter Procedures Comments Procedure Name Priority Date/Time Associated Diag nosis US KIDNEY TRANSPLANT Routine 06/05/2019 Kidney tr ansplanted 12:58 PM WOOD MODEL MAKER documented in this encounter Results * US KIDNEY TRANSPLANT (06/05/2019 12:58 PM WOOD MODEL MAKER) Specimen Impressions Performed At Interval development of mild transplant hydronephrosi s that persists after [facility] voiding Small to moderate post void residual bl adder volume of 70 mL. Small perinephric and perivesicular flu id collections. The tip of the percutaneous drain is in a small curvil inear fluid collection that connects or comes extremely close to the tortuous t ransplant ureter. No large fluid collections to explain a 350 mL per day drainage are identified. The combination of findings is suspicious for urine richard k from the transplant ureter. Patent transplant vessels with interval development of mildly elevated intrarenal arterial resistance If further evaluation of potential urin e leak is clinically indicated, a cystogram may be useful. If further rafi luation of potential fluid collection not identified by ultrasound is clinically indicated, a noncontrast CT scan of the abdomen and pelvis could be performed. Dr. Dykes discussed potential urine leak with transplant clinic staff telephone at 1:20 PM on 06/05/2019 By my electronic signature, I attest th at I have personally reviewed the images for this examination and formulated the interpretations and opinions expressed in this report Finalized by Xiang Dykes M.D. on 06/05/2019 1:30 PM. Dictated by Elsy Mullins M.D. on 06/05/2019 11:05 AM. Narrative Performed At Ultrasound of transplant kidney [facility] Clinical Indication: 49-year-old male, recent kidney transplant, drain placement Technique: Multiple grayscale sonograph ic images were obtained of the renal transplant with additional color Dopple r and spectral Doppler acquisitions. Comparison: Renal transplant ultrasound s May 28, 2019 and May 27, 2019 Findings: The right lower quadrant renal transpla nt is normal in size, measuring 10.8 x 3.5 cm, previously 10.0 x 4.4 cm. Dev elopment of mild hydronephrosis which does not significantly improve on post void imaging. AP diameter of the renal pelvis measures 1.3 cm. The nephrourete ral stent is visualized in the transplant renal pelvis and within the ureter. The re is tortuosity of the proximal ureter transplant ureter. Small elongated perinephric fluid colle ction superior to the transplant kidney measuring 6.7 x 0.9 x 3.9 cm. Additiona l thin elongated fluid collection superior to the urinary bladder measure s 3.7 x 3.1 x 0.6 cm. No blood flow within these collections. The tip of the percutaneous drain is vi sualized in a small fluid collection interposed between the posterior medial aspect of the transplant and the urinary bladder. This portion of the fluid shahana ection is up to 1.3 cm in thickness. Fluid collection courses from posterior to the medial aspect of the transplant, anteriorly along the medial aspect of t he transplant and appears to closely approximate or more likely connect to t he thin fluid collection anterior to the right side of the urinary bladder. The tortuous ureter also is extremely close to the anterior aspect of the fluid col lection and a connection between the ureter and the fluid is most likely pre sent. (series fA) Intrarenal resistive indices are mildly elevated, ranging 0.76-0.86, previously 0.63-0.71. Systolic acceleration is nor mal. The main renal artery and vein are patent with normal direction of blood f low. Unchanged mild visible narrowing of the proximal renal artery near the anas tomosis. Peak systolic velocity of the main renal artery is 154 cm/sec, previo usly 91 cm/sec. The iliac artery and vein are patent wi th normal direction of blood flow. Peak systolic velocity of the iliac artery i s 119 cm/sec, previously 104 cm/sec. The urinary bladder is mildly distended with a post void residual volume of 70 mL. Procedure Note Interface, Radiant Results - 06/05/2019 1:33 PM WOOD MODEL MAKER Ultrasound of transplant kidney Clinical Indication: 49-year-old male, recent kidney transplant, drain placement Technique: Multiple grayscale sonographic images were obtained of the renal transplant with additional color Doppler and spectral Doppler acquisitions. Comparison: Renal transplant ultrasounds May 28, 2019 and May 27, 2019 Findings: The right lower quadrant renal transplant is normal in size, measuring 10.8 x 3.5 cm, previously 10.0 x 4.4 cm. Development of mild hydronephrosis which does not significantly improve on post void imaging. AP diameter of the renal pelvis measures 1.3 cm. The nephroureteral stent is visualized in the transplant renal pelvis and within the ureter. There is tortuosity of the proximal ureter transplant ureter. Small elongated perinephric fluid collection superior to the transplant kidney measuring 6.7 x 0.9 x 3.9 cm. Additional thin elongated fluid collection superior to the urinary bladder measures 3.7 x 3.1 x 0.6 cm. No blood flow within these collections. The tip of the percutaneous drain is visualized in a small fluid collection interposed between the posterior medial aspect of the transplant and the urinary bladder. This portion of the fluid collection is up to 1.3 cm in thickness. Fluid collection courses from posterior to the medial aspect of the transplant, anteriorly along the medial aspect of the transplant and appears to closely approximate or more likely connect to the thin fluid collection anterior to the right side of the urinary bladder. The tortuous ureter also is extremely close to the anterior aspect of the fluid collection and a connection between the ureter and the fluid is most likely present. (series fA) Intrarenal resistive indices are mildly elevated, ranging 0.76-0.86, previously 0.63-0.71. Systolic acceleration is normal. The main renal artery and vein are patent with normal direction of blood flow. Unchanged mild visible narrowing of the proximal renal artery near the anastomosis. Peak systolic velocity of the main renal artery is 154 cm/sec, previously 91 cm/sec. The iliac artery and vein are patent with normal direction of blood flow. Peak systolic velocity of the iliac artery is 119 cm/sec, previously 104 cm/sec. The urinary bladder is mildly distended with a post void residual volume of 70 mL. IMPRESSION Interval development of mild transplant hydronephrosis that persists after voiding Small to moderate post void residual bladder volume of 70 mL. Small perinephric and perivesicular fluid collections. The tip of the percutaneous drain is in a small curvilinear fluid collection that connects or comes extremely close to the tortuous transplant ureter. No large fluid collections to explain a 350 mL per day drainage are identified. The combination of findings is suspicious for urine leak from the transplant ureter. Patent transplant vessels with interval development of mildly elevated intrarenal arterial resistance If further evaluation of potential urine leak is clinically indicated, a cystogram may be useful. If further evaluation of potential fluid collection not identified by ultrasound is clinically indicated, a noncontrast CT scan of the abdomen and pelvis could be performed. Dr. Dykes discussed potential urine leak with transplant clinic staff telephone at 1:20 PM on 06/05/2019 By my electronic signature, I attest that I have personally reviewed the images for this examination and formulated the interpretations and opinions expressed in this report Finalized by Xiang Dykes M.D. on 06/05/2019 1:30 PM. Dictated by Elsy Mullins M.D. on 06/05/2019 11:05 AM. Performing Organization Address City/State/Zipcode Ph one Number [facility] 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 documented in this encounter
--- OUTSIDE RECORDS SUMMARY | 2019-09-28 08:49 | XMS REPORT | Encounter Summary ---
Author Author [facility] Organization [facility] Address Unknown Phone Unavailable Care Team Providers Care Crusher Machine Operator Name Role Phone Dania Barksdale MD PCP Jose Huff DO Unavailable Reason for Visit * Reason Comments Results Encounter Details Care Team Description Date Type Department Lucia Trinidad RN Results 06/07/[address] [address] Social History Date Tobacco Use Types Packs/Day [...] Telephone Encounter - Lucia Trinidad RN - 06/07/2019 1:53 PM ASPHALT BLENDER Reviewed pt's labs from 06/[address] Idania Harrison. Creat improved to 5.44. Pt puneetcharles glynn 2.4L UO. Will hold on HD for Tuesday and Tuesday, called and updated dialysis ce nter. Will see pt in clinic on 06/12. [place]ro level 8.9, no adjustment on Progr af at this time. Pt called and updated on results. ALT BLENDER documented in this encounter Plan of Treatment Care Team Description Date Type Specialty Berta Harrison MD [address] [place] [address] Doroteo Enamorado MD [address] [place] [address] 10/02/2019 Hospital Radiology Encounter documented as of this encounter Goals Goal Patient Associated Recent Progress Patient-Stat Aut hor Goal Type Problems ed? Recover from illness [facility] Rajani Ac, RN documented as of this encounter Visit Diagnoses Not on filedocumented in this encounter
--- OUTSIDE RECORDS SUMMARY | 2019-09-28 08:50 | XMS REPORT | Encounter Summary ---
Author Author [facility] Organization [facility] Address Unknown Phone Unavailable Care Team Providers Care Subcontracts Manager Name Role Phone Dania Barksdale MD PCP Jose Huff DO Unavailable Reason for Visit * Reason Comments Recent Hospitalization (Follow-up) Encounter Details Care Team Description Date Type Department Mohini Gloria RN Recent Hospitalization (Follow-up) 06/04/[address] [address] Social History Date Tobacco Use Types Packs/Day [...] encounter Miscellaneous Notes * Telephone Encounter - Mohini Gloria RN - 06/04/2019 10:13 AM AUDIO VISUAL ARTS DIRECTOR This GA reviewed lab results with Dr. Palm, patient's creatinine up to 7.35 fr om 6.8, urine output around 800 mL/day, weight 233 in clinic this AM. Per Dr. Violetta keller patient does need to go to dialysis today. This NC called patient and notified him of lab results, reviewed dialysis inform ation with patient. This NC asked patient if he has eaten as his glucose was 66, patient has eaten since labs were drawn. Called patient to follow up post discharge after Kidney transplant. Asked about patient's pain. Pain is not well controlled. Medication(s) being used: acetam inophen and narcotic analgesics including tramadol (Ultram). This NC advised gualberto varela to try OTC lidocaine patches around incision and drain, discussed that brandon ramos can cut the patches but cannot place on open skin. RN asked patient about t heir bowel movements, patient replied that they are having alternating diarrhea and constipation. Advised patient to continue with current bowel regimen but sto p stool softeners if he has diarrhea. Asked patient about anti-rejection medicat ions, specifically if they were able to take them without issues or had any ques tions. Asked patient if they knew doses of anti-rejection medications, if not, d o they know where to find their dose? Patient replied Yes. Reminded patient of appointment [facility]. Reminded caitlin ent to bring binder and medications with them to appointment and to NOT take Pro alessandro before labs are drawn. Asked patient if they had any questions, patient replied Yes.Patient wondering i f his kidney will work and how often this occurs, NC offered support to patient. Leatha Gloria RN Pager [phone] This NC attempted to call patient again to discuss FK level, no answer. 1500 This NC called patient and spoke to his , notified her no changes to hi s Prograf level and per Dr. Palm patient does not need labs drawn tomorrow. Leatha Gloria RN Pager [phone] O VISUAL ARTS DIRECTOR documented in this encounter Plan of Treatment Care Team Description Date Type Specialty Berta Harrison MD [address] [place] [address] Doroteo Enamorado MD [address] [place] [address] 10/02/2019 Hospital Radiology Encounter documented as of this encounter Goals Goal Patient Associated Recent Progress Patient-Stat Aut hor Goal Type Problems ed? Recover from illness [facility] No Rajani Gallego RN documented as of this encounter Visit Diagnoses Not on filedocumented in this encounter
--- OUTSIDE RECORDS SUMMARY | 2019-09-28 08:50 | XMS REPORT | Encounter Summary ---
Author Author [facility] Organization [facility] Address Unknown Phone Unavailable Care Team Providers Care Disulfurizer Tender Name Role Phone Dania Barksdale MD PCP Jose Huff DO Unavailable Encounter Details Care Team Description Date Type Department Berta Harrison MD [address] [place], [place] [id number] 06/04/2019 [facility] Social History Date Tobacco [...] to 1 each 0 [place] [facility] [place] as [...] by unit) capsule mouth every 7 days. 06/01/2019 06/28/2019 metoprolol tartrate Take one-half 30 [...] four times daily for 10 days. 06/01/2019 06/05/2019 polyethylene glycol 3350 Take 510 g 3 (MIRALAX) 17 gram/dose seventeen g powder by mouth daily. 06/01/2019 06/05/2019 prednisone (DELTASONE) 5 Take 3 tabs 6 tablet 0 mg tablet (15mg) once 06/02 then take 2 tabs (10mg) once 06/03 then take 1 tab (5mg) once 06/04 then stop. 06/01/2019 06/05/2019 senna/docusate Take two 100 tablet 1 (SENOKOT-S) 8.6/50 mg tablets by tablet mouth twice daily. 06/01/2019 07/10/2019 tacrolimus (PROGRAF) 1 mg Take [...] Date Type Specialty Berta Harrison MD [address] [place] [address] Doroteo Enamorado MD [address] [place], [place] [id number] 10/02/2019 [facility] Radiology Encounter documented as of this encounter Goals Goal Patient Associated Recent Progress Patient-Stat Aut hor Goal Type Problems ed? Recover from illness [facility] Rajani Ac RN documented as of this encounter Procedures Comments Procedure Name Priority Date/Time Associated Diag nosis HC TP/CR RATIO, RANDOM Routine 08/20/2019 Kidney transplanted 9:02 AM CDT Immunosuppression ([facility]) UA REFLEX CULTURE LABEL 08/20/2019 9:01 AM CDT URINALYSIS MICROSCOPIC Routine 08/20/2019 Kidney transplanted REFLEX TO CULTURE 9:01 AM CDT Immunosuppression ( [facility]) HC URINALYSIS UAR Routine 08/20/2019 Kidney trans planted 9:01 AM CDT Immunosuppression ([facility]) HC TACROLIMUS LC-MS/MS Routine 08/20/2019 Immunos uppression ([facility]) 9:01 AM CDT HC FK 506 Routine 08/20/2019 Kidney transpla nted 9:01 AM CDT Immunosuppression ([facility]) HC CBC W/ AUTOMATED DIFF Routine 08/20/2019 Kidne y transplanted 9:01 AM CDT Immunosuppression ([facility]) HC URIC ACID Routine 08/20/2019 Kidney transpla nted 9:01 AM CDT Immunosuppression ([facility]) HC PHOSPHOROUS, SERUM Routine 08/20/2019 Kidney t ransplanted 9:01 AM CDT Immunosuppression ([facility]) HC MAGNESIUM Routine 08/20/2019 Kidney transpla nted 9:01 AM CDT Immunosuppression ([facility]) HC COMPREHENSIVE Routine 08/20/2019 Kidney transp lanted METABOLIC PANEL 9:01 AM CDT Immunosuppression ( [facility]) UA REFLEX CULTURE LABEL 06/04/2019 8:08 AM HEAD IRRIGATOR URINALYSIS MICROSCOPIC Routine 06/04/2019 Kidney transplanted REFLEX TO CULTURE 8:08 AM HEAD IRRIGATOR HC URINALYSIS UAR Routine 06/04/2019 Kidney trans planted 8:08 AM HEAD IRRIGATOR HC TP/CR RATIO, RANDOM Routine 06/04/2019 Kidney transplanted 8:08 AM HEAD IRRIGATOR HC PHENCYCLIDINES; QUAL Routine 06/04/[address] for observation 8:08 AM HEAD IRRIGATOR for other suspected diseases and conditions ruled out Pre-transplant evaluation for end stage renal disease ESRD (end stage renal disease) ([facility]) HC OPIATES; QUAL Routine 06/04/2019 Encounter for observation 8:08 AM HEAD IRRIGATOR for other suspected diseases and conditions ruled out Pre-transplant evaluation for end stage renal disease ESRD (end stage renal disease) ([facility]) HC COCAINE; QUAL Routine 06/04/2019 Encounter for observation 8:08 AM HEAD IRRIGATOR for other suspected diseases and conditions ruled out Pre-transplant evaluation for end stage renal disease ESRD (end stage renal disease) ([facility]) HC CANNABINOIDS; QUAL Routine 06/04/2019 Encounte r for observation 8:08 AM HEAD IRRIGATOR for other suspected diseases and conditions ruled out Pre-transplant evaluation for end stage renal disease ESRD (end stage renal disease) ([facility]) HC BENZODIAZEPINES, QUAL Routine 06/04/2019 Encou nter for observation 8:08 AM HEAD IRRIGATOR for other suspected diseases and conditions ruled out Pre-transplant evaluation for end stage renal disease ESRD (end stage renal disease) ([facility]) HC BARBITURATES Routine 06/04/2019 Encounter for observation 8:08 AM HEAD IRRIGATOR for other suspected diseases and conditions ruled out Pre-transplant evaluation for end stage renal disease ESRD (end stage renal disease) ([facility]) HC AMPHETAMINES QUAL, Routine 06/04/2019 Encounte r for observation URINE 8:08 AM HEAD IRRIGATOR for other suspected diseases and conditions ruled out Pre-transplant evaluation for end stage renal disease ESRD (end stage renal disease) ([facility]) HC CULTURE-URINE 06/04/2019 8:08 AM HEAD IRRIGATOR NOTES Routine 06/04/2019 8:06 AM HEAD IRRIGATOR HC CMV DNA QN BY PCR Routine 06/04/2019 Kidney tr ansplanted 8:06 AM HEAD IRRIGATOR HC BK VIRUS DNA, QUANT Routine 06/04/2019 Kidney transplanted 8:06 AM HEAD IRRIGATOR HC FK 506 Routine 06/04/2019 Kidney transpla nted 8:06 AM HEAD IRRIGATOR HC CMV IGG Routine 06/04/2019 Kidney transpla nted 8:06 AM HEAD IRRIGATOR HC CBC W/ AUTOMATED DIFF Routine 06/04/2019 Kidne y transplanted 8:06 AM HEAD IRRIGATOR HC URIC ACID Routine 06/04/2019 Kidney transpla nted 8:06 AM HEAD IRRIGATOR HC PHOSPHOROUS, SERUM Routine 06/04/2019 Kidney t ransplanted 8:06 AM HEAD IRRIGATOR HC MAGNESIUM Routine 06/04/2019 Kidney transpla nted 8:06 AM HEAD IRRIGATOR HC COMPREHENSIVE Routine 06/04/2019 Kidney transp lanted METABOLIC PANEL 8:06 AM HEAD IRRIGATOR documented in this encounter Results * PROTEIN/CR RATIO,UR RAN (08/20/2019 9:02 AM CDT) Pathologist [facility] Protein, Random 65 MG/DL [facility] Creatinine, 84 MG/DL [facility] Random Protein/CR 0.8 [facility] ratio Specimen Urine - Urine Performing Organization Address [facility] Ph one Number [facility] MA[facility] [address] [place] [address] * UA REFLEX CULTURE LABEL (08/20/2019 9:01 AM CDT) Pathologist [facility] UA Reflex Criteria for reflex to culture [facility] N LAB Culture are WBC>10, Positive Nitrit e, and/or >=+1 leukocytes. If quantity is not sufficient, an addendum will follow. Specimen Performing Organization Address [facility] Ph one Number CLAUDIA MAIN LAB [address] [place] [address] * CBC AND DIFF (08/20/2019 9:01 AM CDT) Pathologist [facility] White Blood 4.3 (L) 4.5 - 11.0 [...] Basophil Count Specimen Blood Performing Organization Address City/[facility] Ph one Number [facility] [address] [place] [address] * COMPREHENSIVE METABOLIC PANEL (08/20/2019 9:01 AM [...] (L) >60 mL/min [facility] Comment: [place] The eGFR is not validated f or use in drug dosing adjustments. Continue to use estimated creatinine clearance per dosing reference text. Please contact the Clinical Pharmacist for questions. eGFR 42 (L) >60 mL/min [facility] [place] Comment: The eGFR is not validated for use in drug dosing adjustments. Continue to use estimated creatinine clearance per dosing reference text. Please contact the Clinical Pharmacist for questions. Specimen Blood Performing Organization Address [facility] Ph one Number [facility] [address] [place] [address] * MAGNESIUM (08/20/2019 9:01 AM CDT) Magnesium 1.8 1.6 - 2.6 mg/dL [facility] Specimen Blood Performing Organization Address [facility] Ph one Number [facility] [address] [place] [address] * PHOSPHORUS (08/20/2019 9:01 AM CDT) Phosphorus 2.5 2.0 - 4.5 MG/DL [facility] Specimen Blood Performing Organization Address [facility] Ph one Number [facility] [address] [place] [address] * URIC ACID (08/20/2019 9:01 AM CDT) Uric Acid 5.4 4.0 - 8.0 MG/DL [facility] Specimen Blood Performing Organization Address [facility] one Number [facility] [address] [place] [address] * URINALYSIS DIPSTICK REFLEX TO CULTURE (08/20/2019 9:01 AM CDT) Color,UA YELLOW [facility] Turbidity,UA CLEAR CLEAR-CLEAR [facility] Specific 1.013 1.003 - 1.035 [facility] [place]-Urine pH,UA 5.0 5.0 - 8.0 [facility] MAIN [...] Acid, UA Specimen Urine Performing Organization Address [facility] one Number [facility] [address] [place] [address] * URINALYSIS MICROSCOPIC REFLEX TO CULTURE (08/20/2019 9:01 AM CDT) WBCs,UA 2-10 0 - 2 /HPF [facility] RBCs,UA 0-2 0 - 3 /HPF [facility] Comment,UA Criteria for reflex to culture [facility] are WBC>10, Positive Nitrite, and/or >=+1 leukocytes. If quantity is not sufficient, an addendum will follow. Squamous 0-2 0 - 5 MAIN LAB Epithelial Cells Specimen Urine Performing Organization Address [facility] one Number MAIN LAB [address] [place] [address] * TACROLIMUS LEVEL(FK506) (08/20/2019 9:01 AM CDT) Tacrolimus 11.4 2 - 15 NG/ML MAIN LAB Comment: Target concentrations vary by type of transplant, patient response, concomitant immunosuppression and post-transplant time interval. Test was performed on whole blood using [employer] QMS reagent and a [employer] ([employer] AU analyzer. Specimen Blood Performing Organization Address [facility] one Number MAIN LAB [address] [place] [address] * TACROLIMUS LC-MS/MS (08/20/2019 9:01 AM CDT) [...] developed and its performance characteristics determined by [facility]. It has not been cleared or approved by the U.S. Food and Drug Administration. Testing Performed At: [facility] [address] [place] [address] [employer] [place], [place] [id number] CLIA ID: [id number] Specimen Blood Performing Organization Address [facility] one Number REFERENCE LAB REFERENCE LAB See results for address. * CULTURE-URINE W/SENSITIVITY (06/04/2019 8:08 AM HEAD IRRIGATOR) Battery Name URINE CULTURE [facility] Specimen URINE MAIN LAB Description Special NONE [facility] Requests Culture NO GROWTH [facility] Report Status FINAL MAIN LAB 06/05/2019 Specimen Urine Performing Organization Address [facility] one Number MAIN LAB [address] [place] [address] * UA REFLEX CULTURE LABEL (06/04/2019 8:08 AM HEAD IRRIGATOR) UA Reflex Criteria for reflex to culture [facility] Culture are WBC>10, Positive Nitrit e, and/or >=+1 leukocytes. If quantity is not sufficient, an addendum will follow. Specimen Performing Organization Address [facility] Ph one Number MAIN LAB [address] [place] [address] * URINALYSIS MICROSCOPIC REFLEX TO CULTURE (06/04/2019 8:08 AM HEAD IRRIGATOR) WBCs,UA 20-50 0 - 2 /HPF MAIN LAB RBCs,UA 20-50 0 - 3 /HPF MAIN LAB Comment,UA Criteria for reflex to culture [facility] are WBC>10, Positive Nitrite, and/or >=+1 leukocytes. If quantity is not sufficient, an addendum will follow. Specimen Urine Performing Organization Address [facility] one Number MAIN LAB [address] [place] [address] * URINALYSIS DIPSTICK REFLEX TO CULTURE (06/04/2019 8:08 AM HEAD IRRIGATOR) Color,UA YELLOW MAIN LAB Turbidity,UA CLEAR CLEAR-CLEAR [facility] Specific 1.013 1.003 - 1.035 MAIN LAB [place]Urine pH,UA 6.0 5.0 - 8.0 [facility] Protein,UA 1+ (A) NEG-NEG [facility] Glucose,UA 1+ (A) NEG-NEG [facility] Ketones,UA NEG NEG-NEG [facility] Bilirubin,UA NEG NEG-NEG [facility] Blood,UA 2+ (A) NEG-NEG [facility] Urobilinogen,UA NORMAL NORM-NORMAL [facility] Nitrite,UA NEG NEG-NEG [facility] Leukocytes,UA 2+ (A) NEG-NEG [facility] Urine Ascorbic NEG NEG-NEG [facility] Acid, UA Specimen Urine Performing Organization [facility] one Number MAIN LAB [address] [place] [address] * PROTEIN/CR RATIO,UR RAN (06/04/2019 8:08 AM HEAD IRRIGATOR) Protein, Random 83 MG/DL MAIN LAB Creatinine, 106 MG/DL MAIN LAB Random Protein/CR 0.8 MAIN LAB ratio Specimen Urine - Urine Performing [facility] one Number MAIN LAB [address] [place] [address] * PHENCYCLIDINES-URINE RANDOM (06/04/2019 8:08 AM HEAD IRRIGATOR) Phencyclidine NEG NEG-NEG [facility] LAB (PCP) Comment: RESULTS WERE OBTAINED BY IMMUNOASSAY AND ARE PRESUMPTIVE ONLY. POSITIVE INDICATES THE PRESENCE OF SUBSTANCE WITH CHARACTERISTICS SIMILAR TO DRUG-DRUG CLASS OR METABOLITE IN CONC. EQUAL TO OR EXCEEDING VALUES LISTED. PHENCYCLIDINE (PCP) 25 NG/ML Specimen Urine - Urine Performing [facility] one Number [facility] LAB [address] [place] [address] * OPIATES-URINE RANDOM (06/04/2019 8:08 AM HEAD IRRIGATOR) Opiates-Urine NEG NEG-NEG [facility] LAB Comment: RESULTS WERE OBTAINED BY IMMUNOASSAY AND ARE PRESUMPTIVE ONLY. POSITIVE INDICATES THE PRESENCE OF SUBSTANCE WITH CHARACTERISTICS SIMILAR TO DRUG-DRUG CLASS OR METABOLITE IN CONC. EQUAL TO OR EXCEEDING VALUES LISTED. OPIATES 2000 NG/ML Specimen Urine - Urine Performing Organization [facility] one Number [facility] LAB [address] [place] [address] * COCAINE-URINE RANDOM (06/04/2019 8:08 AM HEAD IRRIGATOR) Cocaine-Urine NEG NEG-NEG MAIN LAB Comment: RESULTS WERE OBTAINED BY [employer]MMUNOASSA[employer] AND ARE PRESUMPTIVE ONLY. POSITIVE INDICATES THE PRESENCE OF SUBSTANCE WITH CHARACTERISTICS SIMILAR TO DRUG-DRUG CLASS OR METABOLITE IN CONC. EQUAL TO OR EXCEEDING VALUES LISTED. COCAINE 300 NG/ML Specimen Urine - Urine Performing [facility] one Number MAIN LAB [address] [place] [address] * CANNABINOIDS-URINE RANDOM (06/04/2019 8:08 AM HEAD IRRIGATOR) THC NEG NEG-NEG MAIN LAB Comment: RESULTS WERE OBTAINED BY IMMUNOASSAY AND ARE PRESUMPTIVE ONLY. POSITIVE INDICATES THE PRESENCE OF SUBSTANCE WITH CHARACTERISTICS SIMILAR TO DRUG-DRUG CLASS OR METABOLITE IN CONC. EQUAL TO OR EXCEEDING VALUES LISTED. CANNABINOIDS 50 NG/ML Specimen Urine - Urine Performing Organization [facility] one Number MAIN LAB [address] [place] [address] * BENZODIAZEPINES-URINE RANDOM (06/04/2019 8:08 AM HEAD IRRIGATOR) Benzodiazepines NEG NEG-NEG MAIN LAB Comment: RESULTS WERE OBTAINED BY IMMUNOASSAY AND ARE PRESUMPTIVE ONLY. POSITIVE INDICATES THE PRESENCE OF SUBSTANCE WITH CHARACTERISTICS SIMILAR TO DRUG-DRUG CLASS OR METABOLITE IN CONC. EQUAL TO OR EXCEEDING VALUES LISTED. BENZODIAZEPINES 200 NG/ML Specimen Urine - Urine Performing [facility] one Number MAIN LAB [address] [place] [address] * BARBITURATES-URINE RANDOM (06/04/2019 8:08 AM HEAD IRRIGATOR) Barbiturates,Ur NEG NEG-NEG MAIN LAB ine Comment: RESULTS WERE OBTAINED BY IMMUNOASSAY AND ARE PRESUMPTIVE ONLY. POSITIVE INDICATES THE PRESENCE OF SUBSTANCE WITH CHARACTERISTICS SIMILAR TO DRUG-DRUG CLASS OR METABOLITE IN CONC. EQUAL TO OR EXCEEDING VALUES LISTED. BARBITURATES 200 NG/ML Specimen Urine - Urine Performing [facility] one Number MAIN LAB [address] [place] [address] * AMPHETAMINES-URINE RANDOM (06/04/2019 8:08 AM HEAD IRRIGATOR) Amphetamines NEG NEG-NEG MAIN LAB Comment: RESULTS WERE OBTAINED BY IMMUNOASSAY AND ARE PRESUMPTIVE ONLY. POSITIVE INDICATES THE PRESENCE OF SUBSTANCE WITH CHARACTERISTICS SIMILAR TO DRUG-DRUG CLASS OR METABOLITE IN CONC. EQUAL TO OR EXCEEDING VALUES LISTED. AMPHETAMINES 1000 NG/ML Specimen Urine - Urine Performing [facility] one Number [facility] LAB [address] [place] [address] * NOTES (06/04/2019 8:06 AM HEAD IRRIGATOR) Specimen Notes NO MTN PER KARIS ALFARO REFERENC E LAB Specimen Performing Organization [facility]/Zipcode Ph one Number REFERENCE LAB REFERENCE LAB See results for address. * CMV QUANT PCR-BLOOD (06/04/2019 8:06 AM HEAD IRRIGATOR) IU/mL CMV Blood <50 IU/mL [facility] LAB The test method detects and quantitates CMV DNA using the [employer] RealTime assay, and is approved by the FDA for monitoring hematopoietic stem cell transplant patients who are undergoing anti-CMV therapy. Please correlate results with the clinical status of the patient. LOG10 CMV <1.7 MAIN LAB CMV DNA Quant CMV DNA NOT DETECTED [facility]ND[facility]CMV DNA [facility] DETECTED [IU]/mL Specimen Blood Performing Organization Address [facility] Ph one Number MAIN LAB [address] [place] [address] * TACROLIMUS LEVEL(FK506) (06/04/2019 8:06 AM HEAD IRRIGATOR) Tacrolimus 11.5 2 - 15 NG/ML MAIN LAB Comment: Target concentrations vary by type of transplant, patient response, concomitant immunosuppression and post-transplant time interval. Test was performed on whole blood using [employer] reagent and a [employer] AU analyzer. Specimen Blood Performing Organization Address [facility] Ph one Number MAIN LAB [address] [place] [address] * CMV AB IGG (06/04/2019 8:06 AM HEAD IRRIGATOR) CMV, IgG NEG MAIN LAB Specimen Blood Performing Organization Address [facility] one Number MAIN LAB [address] [place] [address] * BK VIRUS DNA, QUANT PLASMA (06/04/2019 8:06 AM HEAD IRRIGATOR) BK Virus Plasma BK Virus Not Detected BKND-BK Virus Not [facility] Quant Detected BK Virus Plasma This assay uses analyte MAIN LAB Comment specific reagents and has n ot been cleared by the [place] Food and Drug Administration. The performance characteristics were determined by the [facility]. Specimen Blood Performing Organization Address [facility] Ph one Number MAIN LAB [address] [place] [address] * URIC ACID (06/04/2019 8:06 AM HEAD IRRIGATOR) Uric Acid 9.6 (H) 4.0 - 8.0 MG/DL [facility] Specimen Blood Performing Organization Address [facility] Ph one Number [facility] MA[facility] [address] [place] [address] * PHOSPHORUS (06/04/2019 8:06 AM HEAD IRRIGATOR) Phosphorus 6.4 (H)Comment: NOTE NEW 2.0 - 4.5 MG/DL [facility] AIN LAB REFERENCE RANGES Specimen Blood Performing Organization Address [facility] one Number [facility] [address] [place] [address] * MAGNESIUM (06/04/2019 8:06 AM HEAD IRRIGATOR) Magnesium 2.2 1.6 - 2.6 mg/dL [facility] Specimen Blood Performing Organization Address [facility] one Number [facility] [address] [place] [address] * COMPREHENSIVE METABOLIC PANEL (06/04/2019 8:06 AM HEAD IRRIGATOR) Sodium 140 137 - 147 MMOL/L [facility] MA[facility] Potassium 3.5 3.5 - 5.1 MMOL/L [facility] Chloride 102 98 - 110 MMOL/L [facility] Glucose 66 (L) 70 - 100 MG/DL [facility] Blood Urea 80 (H) 7 - 25 MG/DL [facility] Nitrogen Creatinine 7.35 (H) 0.4 - 1.24 MG/DL [facility] Calcium 8.2 (L) 8.5 - 10.6 MG/DL [facility] Total Protein 5.9 (L) 6.0 - 8.0 G/DL [facility] Total Bilirubin 0.4 0.3 - 1.2 MG/DL [facility] Albumin 3.6 3.5 - 5.0 G/DL [facility] Alk Phosphatase 72 25 - 110 U/L [facility] AST (SGOT) 22 7 - 40 U/L [facility] CO2 24 21 - 30 MMOL/L [facility] ALT (SGPT) 10 7 - 56 U/L [facility] Anion Gap 14 (H) 3 - 12 [facility] MAIN [facility] eGFR Non 8 (L) >60 mL/min [facility] Comment: [place] The eGFR is not validated f or use in drug dosing adjustments. Continue to use estimated creatinine clearance per dosing reference text. Please contact the Clinical Pharmacist for questions. eGFR 10 (L) >60 mL/min [facility] [place] Comment: The eGFR is not validated for use in drug dosing adjustments. Continue to use estimated creatinine clearance per dosing reference text. Please contact the Clinical Pharmacist for questions. Specimen Blood Performing Organization Address City/[facility] one Number [facility] [address] [place] [address] * CBC AND DIFF (06/04/2019 8:06 AM HEAD IRRIGATOR) White Blood 5.8 4.5 - 11.0 K/UL [facility]IN [facility] Cells RBC 3.03 (L) 4.4 - 5.5 M/UL [facility] Hemoglobin 9.7 (L) 13.5 - 16.5 GM/DL [facility] MAIN LAB Hematocrit 28.8 (L) 40 - 50 % [facility] MAIN LAB MCV 95.0 80 - 100 FL [facility] MAIN LAB MCH 32.1 26 - 34 PG [facility] MAIN LAB MCHC 33.8 32.0 - 36.0 G/DL [facility] MAIN [facility] RDW 14.7 11 - 15 % [facility] MAIN [facility] Platelet Count 132 (L) 150 - 400 K/UL KU MAIN [...] - 2 % K[facility] MAIN LAB Absolute 4.90 1.8 - 7.0 K/UL [facility] Neutrophil Count Absolute Lymph 0.10 (L) 1.0 - 4.8 K/UL [facility] Count Absolute 0.60 0 - 0.80 K/UL [facility] Monocyte Count Absolute 0.20 0 - 0.45 K/UL [facility] Eosinophil Count Absolute 0.00 0 - 0.20 K/UL [facility] Basophil Count Specimen Blood Performing Organization Address City/[facility] one Number [facility] [address] [place] [address] 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 Pre-transplant evaluation for end stage renal disease Other specified pre-operative examinati on ESRD (end stage renal disease) (HCC) End stage renal disease Encounter for observation for other corry pected diseases and conditions ruled out Immunosuppression (HCC) Unspecified disorder of immune mechanis m documented in this encounter
--- OUTSIDE RECORDS SUMMARY | 2019-09-28 08:50 | XMS REPORT | Encounter Summary ---
Author Author [facility] Organization [facility] Address Unknown Phone Unavailable Care Team Providers Care Credit Manager Name Role Phone Dania Barksdale MD PCP Jose Huff DO Unavailable Reason for Visit * Reason Comments Post-transplant Annual Visit Encounter Details Care Team Description Date Type Department Pj Denis MD [address] [place] [address] Kidney transplanted (Primary Dx); Immunosuppression (HCC); Aftercare following organ transplant 06/05/2019 Office Visit The [facility] [address] [id number] Social History Date Tobacco Use Types Packs/Day [...] Signs Reading Time Taken Comments Vital Sign 128/61 06/05/2019 8:54 AM ADJUNCT FACULTY MATHEMATICS DEPARTMENT Blood Pressure 85 06/05/2019 8:54 AM ADJUNCT FACULTY MATHEMATICS DEPARTMENT Pulse 36.3 C (97.4 F) 06/05/2019 8:51 AM ADJUNCT FACULTY MATHEMATICS DEPARTMENT Temperature - - Respiratory Rate 95% 06/05/2019 8:51 AM ADJUNCT FACULTY MATHEMATICS DEPARTMENT Oxygen Saturation - - Inhaled Oxygen Concentration 104.8 kg (231 lb) 06/05/2019 8:51 AM ADJUNCT FACULTY MATHEMATICS DEPARTMENT Weight 167.6 cm (5' 6") 06/05/2019 8:51 AM ADJUNCT FACULTY MATHEMATICS DEPARTMENT Height 37.28 06/05/2019 8:51 AM ADJUNCT FACULTY MATHEMATICS DEPARTMENT Body Mass Index documented in this encounter [...] * Patient Instructions* Lucia Trinidad RN - 06/05/2019 8:40 AM ADJUNCT FACULTY MATHEMATICS DEPARTMENT Return to clinic in one week Labs Tuesdays and Ultrasound today Start lasix 60mg daily NCT FACULTY MATHEMATICS DEPARTMENT documented in this encounter Progress Notes * Lucia Trinidad RN - 06/05/2019 8:40 AM ADJUNCT FACULTY MATHEMATICS DEPARTMENT First visit: 06/05/19 IS: Myfortic 720BID Prograf 09/10 05/30: HD session while inpatient 06/01: hospital d/c 06/04: HD session as outpatient 06/05 ROS: BPs today are 120-130s, at home about the same. Weight today is 231lbs , at home 224lbs. 1200mL UO yesterday. CORI drain output 300mL daily. Plan: Pt still has pain control issues, pt doing q6h tramadol with tylenol. Pt e ndorsed glucose is low in the AM. Transplant Synopsis: Date: 05/27/2019 Donor: DCD from a female donor in early 50s KDPI: 60% CPRA: 0% DSA: none Induction: Thymo for steroid avoidance CMV status: D+/R- Post-op course: DGF Ureteral stent removal: 07/09/19 Baseline Scr: TBD Clinical trial: none Referring secretarial teacher: Brayden Surgeon: Morales PMH: DM 1, Seizure disorder, depression, GREGORY, Vit D deficiency, obesity NCT FACULTY MATHEMATICS DEPARTMENT * Jessica Cleveland RN - 06/05/2019 8:40 AM ADJUNCT FACULTY MATHEMATICS DEPARTMENT Fluid specimen from pt drain was sent to lab at this time NCT FACULTY MATHEMATICS DEPARTMENT * Pj Denis MD - 06/05/2019 8:40 AM ADJUNCT FACULTY MATHEMATICS DEPARTMENT [facility] Date of Service: 06/05/19 Stef Pace [id number] TRANSPLANT SYNOPSIS: Date: 05/27/2019, ESRD from type 1 DM Donor: DCD from a female donor in early 50's KDPI: 60% CPRA: 0% DSA: none Induction: Thymo for steroid avoidance CMV status: D+/R- Post-op course: DGF Ureteral stent removal: TBD Baseline Scr: TBD Clinical trial: none Referring secretarial teacher: Referring Flake Drier: Malathi Owen [address] [facility] [address] [place] [address] Malathi Owen, We had the pleasure of meeting Mr. Pace in the [facility] Transplant [facility] for routine evaluation of his renal transplant. This is his first clinic post op visit. He underwent HD yesterday. Making more and more urine everyday. Made ~1200 cc in the last 24 hours, Still feels swollen, drinking large amounts of water. CORI drain is draining ~350c c every day. Patient also reports watery diarrhea with some formed elements in it. Overall not feeling too much better. Compliant with medications. Denies hospitalizations, illnesses, fevers, chills, n/v/d, chest pains, sob, abd pains, swelling, rash, dysuria, hematuria. REVIEW OF SYSTEMS: Comprehensive 14-point ROS reviewed Positives noted in HPI otherwise negative. Past History: No past medical history on file. Surgical History: Procedure Laterality Date ALLOTRANSPLANTATION KIDNEY [...] 30 tablet, Rfl: 5 Miscellaneous Medical [facility] [place] Use to monitor blood pressure as directe d., Disp: 1 each, Rfl: [address] (MYFORTIC) 180 mg TbEC tablet, Take four tablets by mouth twice daily., Disp: 240 tablet, Rfl: 11 nystatin (MYCOSTATIN) 100,000 units/mL oral suspension, Swish and Swallow 5 mL by mouth as directed four times daily for 10 days., Disp: 200 mL, Rfl: [address](+) (PRILOSEC) 40 mg capsule, Take 40 mg by mouth daily before breakfast., Disp: , Rfl: pregabalin (LYRICA) 75 mg capsule, Take 75 mg by mouth three times daily., Disp: , Rfl: tacrolimus (PROGRAF) 1 mg capsule, Take five [...] by mouth every 6 hours as n eeded., Disp: 20 tablet, Rfl: 0 traZODone (DESYREL) 100 mg tablet, Take 100 mg by mouth at bedtime daily., Disp: , Rfl: trimethoprim/sulfamethoxazole (BACTRIM) 80/400 mg tablet, Take one tablet b y mouth three times weekly. MWF, Disp: 30 tablet, Rfl: 11 valGANciclovir (VALCYTE) 450 mg tablet, Take one tablet by mouth twice week ly. Tue/, Disp: 60 tablet, Rfl: 5 Physical Exam: BP 128/61 (BP Source: Arm, Right Upper, Patient Position: Standing) | Pulse 85 | Temp 36.3 C (97.4 F) (Oral) | Ht 167.6 cm (66") | Wt 104.8 kg (231 lb) | SpO2 95% | BMI 37.28 kg/m General: In NAD; A&Ox3, robust and well appearing, older than stated age Skin: Warm, dry, no signs of rash HEENT: Grossly normal appearing Neck: Supple CV: Regular, regular rate, normal S1/S2, no murmurs Lungs: CTA bilaterally in posterior jalloh Abd: Grossly normal without rebound, guarding, masses, or bruits. Transplant non tender, distended abdomen Ext: significant edema;left AVF with button holes Neuro: No focal deficits Psych: Affect appropriate Laboratory studies: CMP: CMP Latest Ref Rng & Units 06/04/2019 06/01/2019 05/31/2019 05/30/2019 05/29/2019 NA 137 - 147 MMOL/L 140 138 138 131(L) 130(L) K 3.5 - 5.1 MMOL/L 3.5 3.8 4.1 3.8 4.1 CL 98 - 110 MMOL/L 102 99 100 96(L) 96(L) CO2 21 - 30 MMOL/L 24 26 27 19(L) 18(L) GAP 3 - 12 14(H) 13(H) 11 16(H) 16(H) BUN 7 - 25 MG/DL 80(H) 63(H) 50(H) 86(H) 65(H) CR 0.4 - 1.24 MG/DL 7.35(H) 6.80(H) 5.98(H) 9.50(H) 8.21(H) GLUX 70 - 100 MG/DL 66(L) 216(H) 121(H) 158(H) 283(H) CA 8.5 - 10.6 MG/DL 8.2(L) 8.3(L) 8.0(L) 7.1(L) 6.8(L) TP 6.0 - 8.0 G/DL 5.9(L) - - - - ALB 3.5 - 5.0 G/DL 3.6 - - - - ALKP 25 - 110 U/L 72 - - - - ALT 7 - 56 U/L 10 - - - - TBILI 0.3 - 1.2 MG/DL 0.4 - - - - GFR >60 mL/min 8(L) 9(L) 10(L) 6(L) 7(L) GFRAA >60 mL/min 10(L) 11(L) 12(L) 7(L) 9(L) No results found for: LIPASE No results [...] EBVDNAQT TACROLIMUS LEVEL: Tacrolimus (NG/ML) Date Value 06/04/2019 11.5 06/01/2019 11.8 05/31/2019 16.2 (HH) 05/30/2019 15.7 (H) 05/29/2019 17.5 (HH) CBC with Diff: CBC with Diff Latest Ref Rng & Units 06/04/2019 06/01/2019 WBC 4.5 - 11.0 K/UL 5.8 4.4(L) RBC 4.4 - 5.5 M/UL 3.03(L) 3.06(L) HGB 13.5 - 16.5 GM/DL 9.7(L) 9.9(L) HCT 40 - 50 % 28.8(L) 28.9(L) MCV 80 - 100 FL 95.0 94.2 MCH 26 - 34 PG 32.1 32.2 MCHC 32.0 - 36.0 G/DL 33.8 34.2 RDW 11 - 15 % 14.7 14.4 PLT 150 - 400 K/UL 132(L) 100(L) MPV 7 - 11 FL 9.4 9.8 NEUT 41 - 77 % 84(H) - ANC 1.8 - 7.0 K/UL 4.90 - LYMA 24 - 44 % 2(L) - ALYM 1.0 - 4.8 K/UL 0.10(L) - ANGELA 4 - 12 % 10 - AMONO 0 - 0.80 K/UL 0.60 - EOSA 0 - 5 % 4 - AEOS 0 - 0.45 K/UL 0.20 - BASA 0 - 2 % 0 - ABAS 0 - 0.20 K/UL 0.00 - Hemoglobin A1C (%) Date Value 05/27/2019 7.9 (H) 04/19/2019 8.4 (H) 12/17/2016 11.4 (H) Urinalysis: Lab Results Component Value Date/Time UCOLOR YELLOW 06/04/2019 08:08 AM TURBID CLEAR 06/04/2019 08:08 AM USPGR 1.013 06/04/2019 08:08 AM UPH 6.0 06/04/2019 08:08 AM UPROTEIN 1+ (A) 06/04/2019 08:08 AM UAGLU 1+ (A) 06/04/2019 08:08 AM UKET NEG 06/04/2019 08:08 AM UBILE NEG 06/04/2019 08:08 AM UBLD 2+ (A) 06/04/2019 08:08 AM UROB NORMAL 06/04/2019 08:08 AM Protein/CR ratio (no units) Date Value 06/04/2019 0.8 Imaging: Results for orders placed [...] orders placed during the hospital encounter of 05/27/19 CHEST SINGLE VIEW Impression Mild cardiomegaly and pulmonary vascular congestion likely reflectin g mild CHF/volume overload. Approved by Jose Gill D.O. on 05/30/2019 9:58 AM By my electronic signature, I attest that I have personally reviewed the images for this examination and formulated the interpretations and opinions expressed i n this report Finalized by Rogers Gill M.D. on 05/30/2019 10:37 AM. Dictated by Jose Gill D.O. on 05/30/2019 8:32 AM. Patient Active Problem List Diagnosis Date Noted Vitamin D deficiency 05/31/2019 Hemodialysis patient ([facility]) 05/28/2019 Uncontrolled type 1 diabetes mellitus with hypoglycemia ([facility]) 05/28/2019 Kidney transplanted 05/28/2019 Obesity 05/28/2019 Immunosuppression ([facility]) 05/28/2019 Depression 05/28/2019 Seizure disorder ([facility]) 05/28/2019 GREGORY (obstructive sleep apnea) 05/28/2019 ESRD (end stage renal disease) ([facility]) 12/22/2016 Assessment and Plan: Mr. 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 Underwent hemodialysis yesterday. - Labs pending from today. - Stent remains in - CORI drain 350 mls - Cr ~7 - Labs on will address need of HD based on that labs # Immunosuppression - On maintenance Triple drug therapy - Goal tacrolimus level of goal 10-15 ng/mL (MEIA) or 8-12 mcg/L (HPLC). - Currently taking Prograf 5mg mg BID, level pending - MPA 720 mg BID and prednisone taper # ID Proph - CMV D+/R- to treat with Valcyte for 9 months post transplant - PJP Prophylax, to treat with Bactrim for 1 year post transplant - Nystatin for 2 weeks post transplant # Hypertension: Good control - ON tamsulosin, metoprolol 12.5mg BID - Hypervolemic will start lasix 60 mg daily # DM/ Hyperglycemia - On Insulin pump # Anemia - Hb 9.7 - Will add iron panel with next lab draw # Electrolytes: - Phos,mag, Na, K WNL RTC in 1 week Labs twice a week Sincerely, Pj Denis MD [facility] Pancreas Transplant Cc: Malathi Owen Cc: Dania Barksdale Please contact the [facility] at [phone] for any transplant related questions or concerns that may arise . NCT FACULTY MATHEMATICS DEPARTMENT documented in this encounter Miscellaneous Notes * Addendum Note - Pj Denis MD - 06/05/2019 8:40 AM ADJUNCT FACULTY MATHEMATICS DEPARTMENT Addended by: PJ DENIS on: 06/05/2019 03:09 PM Modules accepted: Orders NCT FACULTY MATHEMATICS DEPARTMENT documented in this encounter Plan of Treatment Care Team Description Date Type Specialty Pj Denis MD [address] [place] [address] Doroteo Enamorado MD [address] [place] [address] 10/02/2019 Hospital Radiology Encounter documented as of this encounter Goals Goal Patient Associated Recent Progress Patient-Stat Aut hor Goal Type Problems ed? Recover from illness [facility] Rajani Ac RN documented as of this encounter Results * C DIFFICILE BY PCR (06/06/2019 9:50 AM ADJUNCT FACULTY MATHEMATICS DEPARTMENT) C. difficile Negative: Repeat testing [facility] Toxin B PCR within 7 days of a negative result will not be performed. Testing after 7 days may be performed if clinically indicated. Specimen Feces Performing Organization Address City/State/Zipcode Ph one Number [facility] [address] [place] [address] * US KIDNEY TRANSPLANT (06/05/2019 12:58 PM ADJUNCT FACULTY MATHEMATICS DEPARTMENT) Specimen Impressions Performed At Interval development of [...] Interface, Radiant Results - 06/05/2019 1:33 PM ADJUNCT FACULTY MATHEMATICS DEPARTMENT Ultrasound of transplant kidney Clinical Indication: 49-year-old [...] on 06/05/2019 11:05 AM. Performing Organization Address [facility] one Number [facility] RESULTS * CELL COUNT W/DIFF-FLUIDS (06/05/2019 9:20 AM ADJUNCT FACULTY MATHEMATICS DEPARTMENT) White Blood 120 /UL [facility] Cells,Fluid Red Blood 2,700 /UL [facility] Cells,Fluid Segmented 82 % [facility] Neutrophils, Fluid Lymphocytes,Flu 16 % [facility] id Monocyte/Histo, 2 % [facility] Fluid Fluid Source MISC FLUID [facility] Pathology NEGATIVE FOR MALIGNANT CELLS [facility] Interpretation, Fluid Pathologist INTERPRETED BY [facility] Signature MChristiano Pathologist By the PATH SIGNATURE ABOVE, I [facility] Signature attest that I have personal ly formulated the final interpretation expressed in this report and that the above diagnosis is based upon my examination of the slides and/or other material indicated in this report. Specimen Fluid - Misc Fluid Performing Organization Address [facility] one Number [facility] [address] [place] [address] * DRAIN FLUID TRIGLYCERIDES (06/05/2019 9:20 AM ADJUNCT FACULTY MATHEMATICS DEPARTMENT) Drain Fluid 16Comment: Chyle leakage mg/dL [facility] Triglycerides suggested by triglycerides >110 mg/dL Specimen Fluid Performing Organization Address [facility] one Number MAIN LAB [address] [place] [address] * DRAIN FLUID CREATININE (06/05/2019 9:20 AM ADJUNCT FACULTY MATHEMATICS DEPARTMENT) Drain Fluid 7.01 mg/dL [facility] Creatinine Comment: Body fluid to serum creatinine ratios >1.0 suggest the specimen may be contaminated with urine Specimen Drainage Performing Organization Address City/State/Zipcode Ph one Number [facility] [address] [place] [address] 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 Immunosuppression (HCC) Unspecified disorder of immune mechanis m Aftercare following organ transplant documented in this encounter
--- OUTSIDE RECORDS SUMMARY | 2019-09-28 08:50 | XMS REPORT | Encounter Summary ---
Author Author [facility] Organization [facility] Address Unknown Phone Unavailable Care Team Providers Care Living Supervisor Name Role Phone Dania Barksdale MD PCP Jose Huff DO Unavailable Reason for Visit * Reason Comments s/p Kidney Transplant Encounter Details Care Team Description Date Type Department Verónica Palm MD [address] [address] 06/04/2019 Nurse Only [facility] [address] [phone] Social History Date Tobacco Use Types Packs/Day [...] Signs Reading Time Taken Comments Vital Sign 126/62 06/04/2019 8:46 AM LEAD SUPPLY WORKER Blood Pressure 76 06/04/2019 8:46 AM LEAD SUPPLY WORKER Pulse 36.3 C (97.4 F) 06/04/2019 8:44 AM LEAD SUPPLY WORKER Temperature - - Respiratory Rate 94% 06/04/2019 8:44 AM LEAD SUPPLY WORKER Oxygen Saturation - - Inhaled Oxygen Concentration 105.7 kg (233 lb) 06/04/2019 8:44 AM LEAD SUPPLY WORKER Weight 167.6 cm (5' 6") 06/04/2019 8:44 AM LEAD SUPPLY WORKER Height 37.61 06/04/2019 8:44 AM LEAD SUPPLY WORKER Body Mass Index documented in this encounter [...] Progress Notes * Lucia Trinidad RN - 06/04/2019 9:00 AM LEAD SUPPLY WORKER Pt to clinic this morning for labs. Pt has complaints of CORI drain incision pain. BPs 120s, HR 70s, Weight 233lbs, taken with shoes on. Pt's dry wt is 95kg. Pt's wt at home was 226lbs. Upon assessing CORI drain, noted that drain has been pulled out slightly, able to see white part of tubing. CORI drain still putting out > 200mL drainage daily, drainage is serosanguineous. Discussed with pt to use tram adol PRN and that drain can be very uncomfortable. Will assess with Dr. Idania Harrison at pt's appointment tomorrow, 06/05. Will assess need for imaging/replacement of drain. Discussed that Leatha will discuss lab results with pt and continue to as sess the need for HD today. Pt verbalized understanding of plan. SUPPLY WORKER documented in this encounter Plan of Treatment Care Team Description Date Type Specialty Berta Harrison MD [address] [place] [address] [phone] Doroteo Enamorado MD [address] [place] [address] [phone] 10/02/2019 Hospital Radiology Encounter documented as of this encounter Goals Goal Patient Associated Recent Progress Patient-Stat Aut hor Goal Type Problems ed? Recover from illness Hospital Rajani Ac RN documented as of this encounter Visit Diagnoses Not on filedocumented in this encounter
--- OUTSIDE RECORDS SUMMARY | 2019-09-28 08:50 | XMS REPORT | Encounter Summary ---
Author Author [facility] Organization [facility] Address Unknown Phone Unavailable Care Team Providers Care Business Process Coordinator Name Role Phone Dania Barksdale MD PCP Jose Huff DO Unavailable Encounter Details Care Team Description Date Type Department Mohini Gloria RN Kidney transplanted (Primary Dx) 06/01/2019 Orders Only [facility] [address] [address] Social History Date Tobacco Use [...] Status Date of Assessment Functional Status Response 05/28/2019 Does the patient have a hearing impairment: Yes 04/19/2019 Does the patient have a visual impairment: No 04/19/2019 Does the patient have impaired ambulation: Yes 04/19/2019 Does the patient have an activity of daily living No (ADL) impairment: 04/19/2019 Does the patient have an instrumental activity of No daily living (IADL) impairment: Date of Assessment Cognitive Status Response 04/19/2019 Does the patient have a cognitive impairment: No documented as of this encounter Plan of Treatment Care Team Description Date Type Specialty Berta Harrison MD [address] [place] [address] Doroteo Enamorado MD [address] [place] [address] [phone] 10/02/2019 Hospital Radiology Encounter Order Schedule Name Type Priority Associated Diag noses Twice a Week Auto for 25 Occurrences sta rting 06/01/2019 until 11/30/2019, 3 completed CBC AND DIFF Lab Routine Kidney transpla nted Twice a Week Auto for 25 Occurrences sta rting 06/01/2019 until 11/30/2019, 3 completed COMPREHENSIVE METABOLIC Lab Routine Kidney transplanted PANEL Twice a Week Auto for 25 Occurrences sta rting 06/01/2019 until 11/30/2019, 3 completed MAGNESIUM Lab Routine Kidney transpla nted Twice a Week Auto for 25 Occurrences sta rting 06/01/2019 until 11/30/2019, 3 completed PHOSPHORUS Lab Routine Kidney transpla nted Twice a Week Auto for 25 Occurrences sta rting 06/01/2019 until 11/30/2019, 3 completed PROTEIN/CR RATIO,UR RAN Lab Routine Kidney transplanted Twice a Week Auto for 25 Occurrences sta rting 06/01/2019 until 11/30/2019, 3 completed URIC ACID Lab Routine Kidney transpla nted Twice a Week Auto for 25 Occurrences sta rting 06/01/2019 until 11/30/2019, 3 completed URINALYSIS DIPSTICK Lab Routine Kidney tra nsplanted REFLEX TO CULTURE Twice a Week Auto for 25 Occurrences sta rting 06/01/2019 until 11/30/2019, 3 completed URINALYSIS MICROSCOPIC Lab Routine Kidney transplanted REFLEX TO CULTURE Every 4 Weeks Auto for 4 Occurrences sta rting 06/25/2019 until 11/30/2019, 2 completed BK VIRUS DNA, QUANT Lab Routine Kidney tra nsplanted PLASMA Every 4 Weeks Auto for 6 Occurrences sta rting 11/05/2019 until 11/30/2019, 3 completed CMV QUANT PCR-BLOOD Lab Routine Kidney tra nsplanted documented as of this encounter Goals Goal Patient Associated Recent Progress Patient-Stat Aut hor Goal Type Problems ed? Recover from illness [facility] Rajani Ac RN documented as of this encounter Results * URINALYSIS MICROSCOPIC REFLEX TO CULTURE (07/24/2019 10:19 AM CDT) WBCs,UA 0-2 0 - 2 /HPF [facility] RBCs,UA 0-2 0 - 3 /HPF [facility] Comment,UA Criteria for reflex to culture [facility] are WBC>10, Positive Nitrite, and/or >=+1 leukocytes. If quantity is not sufficient, an addendum will follow. MucousUA TRACE [facility] Amorphous FEW [facility] Sedimate,UA Specimen Urine Performing Organization Address [facility] one Number MAIN LAB [address] [place] [address] * URINALYSIS DIPSTICK REFLEX TO CULTURE (07/24/2019 10:19 AM CDT) Color,UA YELLOW [facility] Turbidity,UA CLEAR CLEAR-CLEAR [facility] Specific 1.013 1.003 - 1.035 [facility] [place]-Urine pH,UA 5.0 5.0 - 8.0 [facility] Protein,UA 1+ (A) NEG-NEG MAIN LAB Glucose,UA 3+ (A) NEG-NEG [facility] Ketones,UA NEG NEG-NEG [facility] Bilirubin,UA NEG NEG-NEG MAIN LAB Blood,UA 1+ (A) NEG-NEG MAIN LAB Urobilinogen,UA NORMAL NORM-NORMAL [facility] Nitrite,UA NEG NEG-NEG [facility] Leukocytes,UA NEG NEG-NEG [facility] Urine Ascorbic NEG NEG-NEG MAIN LAB Acid, UA Specimen Urine Performing Organization Address [facility] one Number MAIN LAB [address] [place] [address] * PROTEIN/CR RATIO,UR RAN (07/24/2019 10:18 AM CDT) Protein, Random 98 MG/DL [facility] Creatinine, 126 MG/DL [facility] Random Protein/CR 0.8 [facility] ratio Specimen Urine - Urine Performing Organization Address [facility] one Number MAIN LAB [address] [place] [address] * CMV QUANT PCR-BLOOD (07/24/2019 10:10 AM CDT) IU/mL CMV Blood <50 IU/mL [facility] The test method detects and quantitates CMV DNA using the Young RealTime assay, and is approved by the FDA for monitoring hematopoietic stem cell transplant patients who are undergoing anti-CMV therapy. Please correlate results with the clinical status of the patient. LOG10 CMV <1.7 MAIN LAB CMV DNA Quant CMV DNA NOT DETECTED CMVND-CMV DNA NOT [facility] PCR DETECTED [IU]/mL Specimen Blood Performing Organization Address [facility]/Zipcode Ph one Number MAIN LAB [address] [place] [address] * BK VIRUS DNA, QUANT PLASMA (07/24/2019 10:10 AM CDT) BK Virus Plasma BK Virus Not Detected BKND-BK Virus Not [facility] AIN [facility] Quant Detected BK Virus Plasma This assay uses analyte [facility] Comment specific reagents and has n ot been cleared by the [place] Food and Drug Administration. The performance characteristics were determined by the [facility]. Specimen Blood Performing Organization Address [facility] one Number MAIN LAB [address] [place] [address] * URIC ACID (07/24/2019 10:10 AM CDT) Uric Acid 6.0 4.0 - 8.0 MG/DL [facility] Specimen Blood Performing Organization Address [facility] Ph one Number MAIN LAB [address] [place] [address] * PHOSPHORUS (07/24/2019 10:10 AM CDT) Phosphorus 2.5 2.0 - 4.5 MG/DL [facility] Specimen Blood Performing Organization Address [facility] Ph one Number MAIN LAB [address] [place] [address] * MAGNESIUM (07/24/2019 10:10 AM CDT) Magnesium 1.6 1.6 - 2.6 mg/dL [facility] Specimen Blood Performing Organization Address [facility] Ph one Number MAIN LAB [address] [place] [address] * COMPREHENSIVE METABOLIC PANEL (07/24/2019 10:10 AM [...] (L) >60 mL/min [facility] Comment: [place] The eGFR is not validated f or use in drug dosing adjustments. Continue to use estimated creatinine clearance per dosing reference text. Please contact the Clinical Pharmacist for questions. eGFR 32 (L) >60 mL/min [facility] [place] Comment: The eGFR is not validated for use in drug dosing adjustments. Continue to use estimated creatinine clearance per dosing reference text. Please contact the Clinical Pharmacist for questions. Specimen Blood Performing Organization Address City/State/Zipcode Ph one Number MAIN LAB [address] [place] [address] * CBC AND DIFF (07/24/2019 10:10 AM [...] Basophil Count Specimen Blood Performing Organization Address [facility] Ph one Number MAIN LAB [address] [place] [address] * URIC ACID (07/10/2019 10:27 AM OUTREACH EDUCATOR) Uric Acid 5.8 4.0 - 8.0 MG/DL [facility] Specimen Blood Performing Organization Address [facility] one Number MAIN LAB [address] [place] [address] * PHOSPHORUS (07/10/2019 10:27 AM OUTREACH EDUCATOR) Phosphorus 2.2 2.0 - 4.5 MG/DL [facility] Specimen Blood Performing Organization Address [facility] one Number MAIN LAB [address] [place] [phone] * MAGNESIUM (07/10/2019 10:27 AM OUTREACH EDUCATOR) Magnesium 1.7 1.6 - 2.6 mg/dL [facility]IN [facility] Specimen Blood Performing Organization Address [facility] one Number MAIN LAB [address] [place] [phone] * COMPREHENSIVE METABOLIC PANEL (07/10/2019 10:27 AM OUTREACH EDUCATOR) Sodium 138 137 - 147 MMOL/L K[facility] [...] (L) >60 mL/min [facility] Comment: [place] The eGFR is not validated f or use in drug dosing adjustments. Continue to use estimated creatinine clearance per dosing reference text. Please contact the Clinical Pharmacist for questions. eGFR 28 (L) >60 mL/min [facility] [place] Comment: The eGFR is not validated for use in drug dosing adjustments. Continue to use estimated creatinine clearance per dosing reference text. Please contact the Clinical Pharmacist for questions. Specimen Blood Performing Organization Address City/State/Zipcode Ph one Number [facility] MAIN LAB [address] [place] [address] * CBC AND DIFF (07/10/2019 10:27 AM OUTREACH EDUCATOR) White Blood 3.3 (L) 4.5 - 11.0 [...] Basophil Count Specimen Blood Performing Organization Address City/[facility] Ph one Number [facility] [address] [place] [address] * URINALYSIS MICROSCOPIC REFLEX TO CULTURE (06/28/2019 10:17 AM OUTREACH EDUCATOR) WBCs,UA PACKED 0 - 2 /HPF KU [...] MAIN LAB Specimen Urine Performing Organization Address [facility] Ph one Pranay [facility] MAIN LAB [address] [place] [address] * URINALYSIS DIPSTICK REFLEX TO CULTURE (06/28/2019 10:17 AM OUTREACH EDUCATOR) Color,UA PENNY [facility] Turbidity,UA CLEAR CLEAR-CLEAR [facility] Specific 1.018 1.003 - 1.035 [facility] [place]-Urine pH,UA 5.0 5.0 - 8.0 [facility] Protein,UA 2+ (A) NEG-NEG [facility] Glucose,UA 2+ (A) NEG-NEG [facility] Ketones,UA NEG NEG-NEG [facility] Bilirubin,UA NEG NEG-NEG [facility] Blood,UA 2+ (A) NEG-NEG [facility] Urobilinogen,UA NORMAL NORM-NORMAL [facility] Nitrite,UA NEG NEG-NEG [facility] Leukocytes,UA 2+ (A) NEG-NEG [facility] Urine Ascorbic NEG NEG-NEG [facility] Acid, UA Specimen Urine Performing Organization Address [facility] Ph one Number MAIN LAB [address] [place] [phone] * PROTEIN/CR RATIO,UR RAN (06/28/2019 10:17 AM OUTREACH EDUCATOR) Protein, Random 158 MG/DL [facility] Creatinine, 237 MG/DL [facility] Random Protein/CR 0.7 [facility] ratio Specimen Urine - Urine Performing Organization Address [facility] Ph one Number MAIN LAB [address] [place] [address] * CMV QUANT PCR-BLOOD (06/28/2019 10:13 AM OUTREACH EDUCATOR) IU/mL CMV Blood <50 IU/mL [facility] The test method detects and quantitates CMV DNA using the Young RealTime assay, and is approved by the FDA for monitoring hematopoietic stem cell transplant patients who are undergoing anti-CMV therapy. Please correlate results with the clinical status of the patient. LOG10 CMV <1.7 MAIN LAB CMV DNA Quant CMV DNA NOT DETECTED [facility] NOT [facility] DETECTED [IU]/mL Specimen Blood Performing Organization Address [facility] one Number MAIN LAB [address] [place] [address] * BK VIRUS DNA, QUANT PLASMA (06/28/2019 10:13 AM OUTREACH EDUCATOR) BK Virus Plasma BK Virus Not Detected BKND-BK Virus Not [facility] AIN LAB Quant Detected BK Virus Plasma This assay uses analyte [facility] Comment specific reagents and has n ot been cleared by the [place] Food and Drug Administration. The performance characteristics were determined by the [facility]. Specimen Blood Performing Organization Address [facility] Ph one Number MAIN LAB [address] [place] [address] * URIC ACID (06/28/2019 10:13 AM OUTREACH EDUCATOR) Uric Acid 6.5 4.0 - 8.0 MG/DL MAIN LAB Specimen Blood Performing Organization Address [facility] Ph one Number MAIN LAB [address] [place] [address] * PHOSPHORUS (06/28/2019 10:13 AM OUTREACH EDUCATOR) Phosphorus 3.1Comment: NOTE NEW REFERENCE 2.0 - 4.5 MG/DL MAIN LAB RANGES Specimen Blood Performing Organization Address [facility] Ph one Number MAIN LAB [address] [place] [address] * MAGNESIUM (06/28/2019 10:13 AM OUTREACH EDUCATOR) Magnesium 1.7 1.6 - 2.6 mg/dL [facility] Specimen Blood Performing Organization Address City[facility] Number [facility] [address] [place] [address] * COMPREHENSIVE METABOLIC PANEL (06/28/2019 10:13 AM OUTREACH EDUCATOR) Sodium 138 137 - 147 MMOL/L [facility] Potassium 5.1 3.5 - 5.1 MMOL/L [facility] Chloride 111 (H) 98 - [...] (L) >60 mL/min [facility] Comment: [place] The eGFR is not validated f or use in drug dosing adjustments. Continue to use estimated creatinine clearance per dosing reference text. Please contact the Clinical Pharmacist for questions. eGFR 18 (L) >60 mL/min [facility] [place] Comment: The eGFR is not validated for use in drug dosing adjustments. Continue to use estimated creatinine clearance per dosing reference text. Please contact the Clinical Pharmacist for questions. Specimen Blood Performing Organization Address City/[facility]/Zipcode Ph one Number MAIN LAB [address] [place] [address] * CBC AND DIFF (06/28/2019 10:13 AM OUTREACH EDUCATOR) White Blood 5.3 4.5 - 11.0 K/UL [...] Basophil Count Specimen Blood Performing Organization Address City/[facility] Ph one Number MAIN LAB [address] [place] [address] * URINALYSIS MICROSCOPIC REFLEX TO CULTURE (06/07/2019 8:57 AM OUTREACH EDUCATOR) WBCs,UA DUPLICATE ORDER 0 - 2 /HPF [facility] RBCs,UA DUPLICATE ORDER 0 - 3 /HPF [facility] Comment,UA DUPLICATE ORDER [facility] Specimen Urine Performing Organization Address [facility] Ph one Number MAIN LAB [address] [place] [address] * URINALYSIS DIPSTICK REFLEX TO CULTURE (06/07/2019 8:57 AM OUTREACH EDUCATOR) Color,UA DUPLICATE ORDER [facility] Turbidity,UA DUPLICATE ORDER CLEAR [facility] Specific DUPLICATE ORDER 1.003 - 1.035 [facility] [place]-Urine pH,UA DUPLICATE ORDER 5.0 - 8.0 KU [...] Specimen Urine Performing Organization Address [facility] Ph one Number [facility] MA[facility] [address] [place] [address] * PROTEIN/CR RATIO,UR RAN (06/07/2019 8:57 AM OUTREACH EDUCATOR) Protein, Random 47 MG/DL [facility] Creatinine, 62 MG/DL [facility] Random Protein/CR 0.8 [facility] ratio Specimen Urine - Urine Performing Organization Address [facility] Ph one Number [facility] MAIN [facility] [address] [place] [address] * CMV QUANT PCR-BLOOD (06/04/2019 8:06 AM OUTREACH EDUCATOR) IU/mL CMV Blood <50 IU/mL [facility] The test method detects and quantitates CMV DNA using the Young RealTime assay, and is approved by the FDA for monitoring hematopoietic stem cell transplant patients who are undergoing anti-CMV therapy. Please correlate results with the clinical status of the patient. LOG10 CMV <1.7 [facility] CMV DNA Quant CMV DNA NOT DETECTED CMVND-CMV DNA NOT [facility] PCR DETECTED [IU]/mL Specimen Blood Performing Organization Address [facility] one Number MAIN LAB [address] [place] [address] 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 documented in this encounter
--- OUTSIDE RECORDS SUMMARY | 2019-09-28 08:51 | XMS REPORT | Encounter Summary ---
Author Author [facility] Organization [facility] Address Unknown Phone Unavailable Care Team Providers Care Landscape Horticulture Instructor Name Role Phone Dania Barksdale MD PCP Jose Huff DO Unavailable Reason for Visit * Reason Comments Error Encounter Details Care Team Description Date Type Department Mohini Gloria RN Error 06/01/2019 Telephone [facility] [address] [address] Social History Date Tobacco Use [...] Date Type Specialty Berta Harrison MD [address] [place] [address] [phone] Doroteo Enamorado MD [address] [place] [address] [phone] 10/02/2019 Hospital Radiology Encounter documented as of this encounter Goals Goal Patient Associated Recent Progress Patient-Stat Aut hor Goal Type Problems ed? Recover from illness [facility] No Rajani Gallego RN documented as of this encounter Visit Diagnoses Not on filedocumented in this encounter
--- OUTSIDE RECORDS SUMMARY | 2019-09-28 08:52 | XMS REPORT | Encounter Summary ---
Author Author [facility] Organization [facility] Address Unknown Phone Unavailable Care Team Providers Care Casting And Pasting Supervisor Name Role Phone Dania Barksdale MD PCP oJse Huff DO Unavailable Reason for Visit * Reason Comments Ureteral Stent Removal Encounter Details Care Team Description Date Type Department Sydnee Castellano RN Ureteral Stent Removal 05/29/2019 Telephone [facility] [address] [address] Social History Date Tobacco Use Types Packs/Day [...] encounter Miscellaneous Notes * Telephone Encounter - Kyle Scales - 05/30/2019 11:09 AM PICTURE BOOKER Pt is scheduled for 07/09/2019 @ 1 pm. Thank you URE BOOKER * Telephone Encounter - Sydnee Castellano RN - 05/29/2019 10:14 AM PICTURE BOOKER Please schedule pt for ureteral stent removal on July 09, 2019 or any day therea fter. URE BOOKER documented in this encounter Plan of Treatment Care Team Description Date Type Specialty Berta Harrison MD [address] [place] [address] Doroteo Enamorado MD [address] [place] [address] 10/02/2019 Hospital Radiology Encounter documented as of this encounter Goals Goal Patient Associated Recent Progress Patient-Stat Aut hor Goal Type Problems ed? Recover from illness [facility] Rajani Ac, RN documented as of this encounter Visit Diagnoses Not on filedocumented in this encounter
--- OUTSIDE RECORDS SUMMARY | 2019-09-28 08:52 | XMS REPORT | Encounter Summary ---
Author Author [facility] Organization [facility] Address Unknown Phone Unavailable Care Team Providers Care Financial Systems Analyst Name Role Phone Dania Barksdale MD PCP Jose Huff DO Unavailable Reason for Visit * Auth/Cert Referred By Contact Referred To Contact Status Reason Specialty Diagnoses / Procedures Diagnoses ESRD (end stage renal disease) ([facility]) Procedures AR RENAL ALTRNSPLJ IMPLTJ GRF W/O GEAR HOBBER NEPHRECTOMY ALLOTRANSPLANTATIO N KIDNEY FROM NON LIVING DONOR WITHOUT RECIPIENT NEPHRECTOMY Encounter Details Care Team Description Date Type Department Melecio Nielsen MD [address] [address] [phone] Shine Jones MD [address] [place] [address] [phone] ESRD (end stage renal disease) ([facility]) 05/27/2019 [facility] 06/01/[address] [place] [address] Social History Date Tobacco Use Types Packs/Day [...] Signs Reading Time Taken Comments Vital Sign 137/64 06/01/2019 10:00 AM MOGUL OPERATOR Blood Pressure 75 06/01/2019 9:49 AM MOGUL OPERATOR Pulse 36.4 C (97.6 F) 06/01/2019 9:49 AM MOGUL OPERATOR Temperature - - Respiratory Rate 95% 06/01/2019 9:49 AM MOGUL OPERATOR Oxygen Saturation - - Inhaled Oxygen Concentration 101.7 kg (224 lb 3.2 oz) 06/01/2019 5:29 AM MOGUL OPERATOR Weight 167.6 cm (5' 5.98") 05/29/2019 5:11 AM MOGUL OPERATOR previously repor smitha Height 36.2 05/29/2019 5:11 AM MOGUL OPERATOR Body Mass Index documented in this encounter [...] impairment: No documented as of this encounter Discharge Summaries * Addie Henderson APRN - 06/01/2019 12:34 PM MOGUL OPERATOR Physician Discharge Summary Name: Virginia Pace Date Of : 1970 Age: 49 years Admit date: 05/27/2019 Discharge date: 06/01/2019 Attending Physician: Dr Shine Jones Service: Surgery-Transplan t Physician Summary completed by: Addie Henderson APRN Reason for hospitalization: end stage renal disease Significant PMH: No past medical history on file. Allergies: Penicillins and Codeine Admission Physical Exam notable for: GEN: NAD. Conversant. HEENT: Nonicteric bilaterally. NEURO: AOx3. PERRL. JANE. Pain controlled with tramadol. RESP: Unlabored. Normal breathing pattern. RA. CARDIO: rate regular lower extremity edema improved edema BLE, 2+pulses. ABD: Soft, round, ND. TTP, RLQ. Incision with maria r, MICHELLE. CORI with light SS dra bartholomew. INTEG: Dry, warm. Admission Lab/Radiology studies notable for: Tacrolimus 11.8, Cr 6.80 kidney transplant 05/28/19: 1. Continued unremarkable appearance of the naif l transplant without evidence of vascular compromise or hydronephrosis. 2. Que stionable minimal debris in the urinary bladder, possibly artifactual due to the adjacent ureteral stent. Correlate with urinalysis. Brief Hospital Course: The patient was admitted and taken to the OR for d donor right kidney transplant on the right, ureteral stent placement. Tolerate d procedure without noted complications and taken to the floor where he remained stable. Noted to have slow graft function and increased oxygen requirements req uiring one session HD while inpatient. Urine output improved, electrolytes and c reatinine remained stable. Patient no longer required oxygen. Thymo course compl ete. Prograf adjusted as expected throughout stay. Endocrinology consulted for m anagement of DM1 and patient home insulin pump resumed prior to discharge. Pain control achieved with oral regimen. Diet initiated and tolerated without nausea. Ambulating and voiding without difficulty. Determined stable for discharge loca lly with family. Labs twice weekly beginning 06/04/19 to determine ongoing need f or HD. Follow-up next week with Dr Harrison. Condition at Discharge: Stable Discharge Diagnoses: Hospital Problems Active Problems ESRD (end stage renal disease) ([facility]) Hemodialysis patient ([facility]) Uncontrolled type 1 diabetes mellitus with hypoglycemia ([facility]) Kidney transplanted Obesity Immunosuppression (HCC) Depression Seizure disorder (HCC) GREGORY (obstructive sleep apnea) Vitamin D deficiency Surgical Procedures: donor right kidney transplant on the right, ureter al stent placement Significant Diagnostic Studies and Procedures: noted in brief hospital course Consults: Endocrinology and Nephrology Patient Disposition: Home Patient instructions/medications: Bathing Restrictions Do not submerge incision. No tub baths. Showers okay. Driving Restrictions No driving. Lifting Restrictions Do not lift more than 10 pounds for 6 week(s). Strenuous Activity Restrictions Please refrain from strenuous activity. Report These Signs and Symptoms Please contact your doctor if you have any of the following symptoms: temperatu re higher than 100.4 degrees F, uncontrolled pain, persistent nausea and/or vomi ting, difficulty breathing, chest pain, severe abdominal pain, unable to urinate , unable to have bowel movement or drainage with a foul odor Questions About Your Stay For questions or concerns regarding your hospital stay, call [phone]. Discharging attending physician: SHINE JONES [[id number]] Diabetic Diet You should eat between 1600 and 2000 calories per day. This is equal to 60g (g vish) of carbohydrates per meal, and 30g of carbohydrates for a bedtime snack. If you have questions about your diet after you go home, you can call a dietitia n at [phone]. Renal Diet Your diet will need to be low in potassium and phosphorous. Keep track of your sodium intake and limit it to 2000mg (milligrams) per day. If you have any questions regarding your diet at home, you may contact a dietiti an at [phone]. Incision Care *Keep your incision clean and dry. *May shower *Do not submerge incision in tub, pool, hot tub, or allen *Your incision should gradually look better each day. If you notice unusual swel ling, redness, drainage, have increasing pain at the site, or have a fever great er than 100 degrees, notify your physician immediately. Suture/Staple Removal You will need your maria r removed at follow up appointment. [facility] care instructions: *WASH HANDS PRIOR TO ANY HANDLING OF DRAIN. *Please write down daily (total for 24 hours) drain output, and empty multiple t imes a day if needed or according to physician's instructions. *To empty the drain, open the lid on top of the bulb. Pour the fluid into a vivi suring cup and record. Close by squeezing the bulb until as much air as possibl e is removed, the cap the lid to recreate suction. *IF TOLD TO DO BY YOUR DOCTOR, "strip the drain" twice daily by pinching the tub ing near the skin with both hands. Keep hand closest to you steady, and with th e other, slowly squeeze the liquid toward the bulb. This will prevent any clots or debris from clogging the drain. *It is okay to shower with the drain. Make sure the entry site is dry before aguila cing a dressing. *Please bring the drain record to your next clinic appointment. Secure the drain to your clothes using a safety pin. *DO NOT TRY TO PUSH THE DRAIN BACK IN IF IT GETS PULLED OUT (even a little bit), THIS IS A BIG INFECTION RISK. If you have any problems with the drain (for example, large amounts of fluid, very bloody fluid, or loss of suction), please call your doctor. Opioid (Narcotic) Safety Information OPIOID (NARCOTIC) PAIN MEDICATION SAFETY We care about your comfort, and believe you need opioid medications at this time to treat your pain. An opioid is a strong pain medication. It is only availab le by prescription for moderate to severe pain. Usually these medications are u sed for only a short time to treat pain, but sometimes will be prescribed for lo nger. Talk with your doctor or nurse about how long they expect you to need thi s medication. When used the right way, opioids are safe and effective medications to treat you r pain, even when used for a long time. Yet, when used in the wrong way, opioid s can be dangerous for you or others. Opioids do not work for everyone. Most p atients do not get full relief of their pain from opioid medication; full relief of your pain may not be possible. For your safety, we ask you to follow these instructions: *Only take your opioid medication as prescribed. If your pain is not controlled with the prescribed dose, or the medication is not lasting long enough, call yo doctor. *Do not break or crush your opioid medication unless your doctor or pharmacist s ays you can. With certain medications, this can be dangerous, and may cause bianca th. *Never share your medications with others, even if they appear to have a good re ason. Never take someone else's pain medication-this is dangerous, and illegal (a crime). Overdoses and deaths have occurred. *Keep your opioid medications safe, as you would with torres, in a lock box or sim ilar container. *Make sure your opioids are going to be secure, especially if you are around chi ldren or teens. *Talk with your doctor or pharmacist before you take other medications. *Avoid driving, operating machinery, or drinking alcohol while taking opioid mary n medication. This may be unsafe. Pain medications can cause constipation. Constipation is bowel movements that ar e less often than normal. Stools often become very hard and difficult to pass. T his may lead to stomach pain and bloating. It may also cause pain when trying to use the bathroom. Constipation may be treated with suppositories, laxatives or stool softeners. A diet high in fiber with plenty of fluids helps to maintain re gular, soft bowel movements. Additional Discharge Instructions CBC with diff, CMP, GGTP, Mg, Phos, Prograf. CMV PCR if appropriate per protoco l. Please have your labs drawn twice weekly as instructed by your coordinator. Labs should be drawn BEFORE taking morning dose of Prograf. Current Discharge Medication List START taking these medications Details acetaminophen (TYLENOL) 325 mg tablet Take two tablets by mouth every 4 hours as needed. Qty: 100 tablet, Refills: 1 PRESCRIPTION TYPE: Normal aspirin EC 81 mg tablet Take one tablet by mouth daily. Take with food. Qty: 90 tablet, Refills: 1 PRESCRIPTION TYPE: Normal ergocalciferol (VITAMIN D-2) 1,250 mcg (50,000 unit) capsule Take one capsule by mouth every 7 days. Qty: 12 capsule, Refills: 0 PRESCRIPTION TYPE: Normal metoprolol tartrate (LOPRESSOR) 25 mg tablet Take one tablet by mouth twice magan y. Qty: 60 tablet, Refills: 5 PRESCRIPTION TYPE: Normal Miscellaneous Medical Supply misc Use to monitor blood pressure as directed. Qty: 1 each, Refills: 0 PRESCRIPTION TYPE: Normal Comments: Please bill to transplant nephrology mycophenolate DR (MYFORTIC) 180 mg TbEC tablet Take four tablets by mouth twice daily. Qty: 240 tablet, Refills: 11 PRESCRIPTION TYPE: Normal nystatin (MYCOSTATIN) 100,000 units/mL oral suspension Swish and Swallow 5 mL by mouth as directed four times daily for 10 days. Qty: 200 mL, Refills: 0 PRESCRIPTION TYPE: Normal polyethylene glycol 3350 (MIRALAX) 17 gram/dose powder Take seventeen g by mouth daily. Qty: 510 g, Refills: 3 PRESCRIPTION TYPE: Normal prednisone (DELTASONE) 5 mg tablet Take 3 tabs (15mg) once 06/02 then take 2 tabs (10mg) once 06/03 then take 1 tab (5mg) once 06/04 then stop. Qty: 6 tablet, Refills: 0 PRESCRIPTION TYPE: Normal senna/docusate (SENOKOT-S) 8.6/50 mg tablet Take two tablets by mouth twice magan y. Qty: 100 tablet, Refills: 1 PRESCRIPTION TYPE: Normal tacrolimus (PROGRAF) 1 mg capsule Take five capsules by mouth twice daily. Qty: 480 capsule, Refills: 11 PRESCRIPTION TYPE: Normal Comments: File dose change traMADol (ULTRAM) 50 mg tablet Take one tablet by mouth every 6 hours as needed. Qty: 20 tablet, Refills: 0 PRESCRIPTION TYPE: Normal trimethoprim/sulfamethoxazole (BACTRIM) 80/400 mg tablet Take one tablet by mout h three times weekly. MWF Qty: 30 tablet, Refills: 11 PRESCRIPTION TYPE: Normal Comments: File dose change valGANciclovir (VALCYTE) 450 mg tablet Take one tablet by mouth twice weekly. Mo n/ Qty: 60 tablet, Refills: 5 PRESCRIPTION TYPE: Normal Comments: File dose change CONTINUE these medications which have NOT CHANGED Details albuterol sulfate (PROAIR HFA) 90 mcg/actuation aerosol inhaler Inhale 2 puffs b y mouth into the lungs every 6 hours as needed for Wheezing or Shortness of [place] th. Shake well before use. PRESCRIPTION TYPE: Historical Med Comments: Pharmacist may choose either generic albuterol HFA, ProAir HFA, Ventol in HFA, or Proventil HFA based on what is cheapest for the patient. fluoxetine (PROZAC) 40 mg capsule Take 40 mg by mouth daily. PRESCRIPTION TYPE: Historical Med insulin pump -ASPART- Patients Own by SubQ Pump route Three times daily with vivi ls and as needed. PRESCRIPTION TYPE: Historical Med liraglutide (VICTOZA) 0.6 mg/0.1 mL (18 mg/3 mL) injection pen Inject 0.6 mg und er the skin daily. PRESCRIPTION TYPE: Historical Med omeprazole DR(+) (PRILOSEC) 40 mg capsule Take 40 mg by mouth daily before break fast. PRESCRIPTION TYPE: Historical Med pregabalin (LYRICA) 75 mg capsule Take 75 mg by mouth three times daily. PRESCRIPTION TYPE: Historical Med tamsulosin (FLOMAX) 0.4 mg capsule Take 0.4 mg by mouth daily. Do not crush, jan w or open capsules. Take 30 minutes following the same meal each day. PRESCRIPTION TYPE: Historical Med traZODone (DESYREL) 100 mg tablet Take 100 mg by mouth at bedtime daily. PRESCRIPTION TYPE: Historical Med The following medications were removed from your list. This list includes medic ations discontinued this stay and those removed from your prior med list in our system bumetanide (BUMEX) 2 mg tablet calcitriol (ROCALTROL) 0.5 mcg capsule calcium acetate (PHOSLO) 667 mg capsule docusate (COLACE) 100 mg capsule Scheduled appointments: Jun 05, 2019 8:40 AM MOGUL OPERATOR Post - Op with Berta Harrison MD [facility] ([facility]) [address] [place] [id number] Jul 09, 2019 1:00 PM MOGUL OPERATOR PRO 30 with Tyrone Castillo MD, UROLOGY PROCEDURE RM [address] [facility] (Urology) [address] Level 2 Pod A [facility] [id number] Additional appointment instructions: Jun 04, 2019 7:00 AM MOGUL OPERATOR Labs only [facility] Pending items needing follow up: stent removal, CORI removal Signed: Addie Henderson APRN 06/01/2019 cc: Primary Care Physician: Dania Barksdale Referring physicians: No ref. provider found Additional provider(s): L OPERATOR documented in this encounter Discharge Instructions * Appointments* Mohini Gloria RN - 06/01/2019 11:58 AM MOGUL OPERATOR Jun 04, 2019 7:00 AM MOGUL OPERATOR Labs only [facility] L OPERATOR * Discharge Instr - Case Management* Lizz Gordon RN - 06/01/2019 8:43 AM MOGUL OPERATOR You are scheduled for local outpatient hemodialysis at [facility] t 11:00 AM starting 06/04/2019. Please arrive 15 minutes prior to your s cheduled chair time. You may also reach the facility with any questions and/or concerns by calling [phone]. L OPERATOR documented in this encounter Medications at Time [...] weekly. Mon/thurs documented as of this encounter Progress Notes * Kostas Last RN - 06/01/2019 1:57 PM MOGUL OPERATOR Discharge paperwork reviewed with patient. All questions answered. Patient state s he understands discharge instructions, prescriptions, follow-up appt & labs, incision & CORI drain care. IVs removed. Patient belongings with spouse. Patient leaving unit via wheelchair to [facility]. L OPERATOR * Vita Rojas MD - 06/01/2019 1:02 PM MOGUL OPERATOR Insulin pump initiated this AM. Blood sugar prior to lunch 175. DEXCOM G5 worki ng. Went through how to change temp basal with patient and at bedside around 12 45 and created a temp basal at 1245 of 130%, to run for 24 hours. Recommended they try a temp basal of 115% tomorrow depending on how blood sugars are doing. Patient will call his calcine furnace tender for follow up and questions. They had no other questions or concerns. Handout with prior settings and new settings given to patient today. Vita Rojas MD Endocrinology Fellow PGY-4 L OPERATOR * Abi Gill, PT - 06/01/2019 11:06 AM MOGUL OPERATOR PHYSICAL THERAPY PROGRESS NOTE Name: Virginia Pace : 1970 Age: 49 y.o. Admission Date: 05/27/2019 LOS: 3 days Mobility Patient Turn/Position: Supine Progressive Mobility Level: Walk in hallway Distance Walked (feet): 200 ft(+ 100 + 80 (standing rest breaks)) Level of Assistance: Assist X1 Assistive Device: None;Other (Comment)(intermittently brushed hand on rail in iniguez llway) Time Tolerated: 11-30 minutes Activity Limited By: Pain;Fatigue Subjective Significant hospital events: History of ESRD 2/2 DMI s/p DDRT 05/27/2019. Mental / Cognitive Status: Alert;Oriented;Cooperative;Follows Commands Persons Present: Spouse(left part way through therapy session) Pain: Patient complains of pain;07/16;10;Before activity;After activity Pain Location: Right;Abdomen;Post-surgical Pain Interventions: Patient pre-medicated;Patient agrees to participate in thera py;Nursing staff notified of patient's pain level;Treatment altered to patient's pain tolerance;Pain increased after treatment;Patient assisted into position of comfort Comments: R posterior CORI drain R LE Precautions: RLE AFO: Ankle Foot Orthosis Comments: Patient declines need to wear during therapy session. L LE Precautions: LLE AFO: Ankle Foot Orthosis Comments: Patient declines need to wear during therapy session. Comments: Pt reports he ambulated around the nursing unit last evening. Pt UAL in room Ambulation Assist: Independent Mobility in Community without Device Patient Owned Equipment: Roller Walker Home Situation: Lives with Family Type of Home: House(3STE with one rail) Entry Stairs: 1-2 Stairs;Rail on 1 Side(2-3 stairs) In-Home Stairs: Able to Live on One Level ROM ROM Comments: tight B heel cords-able to attain dorsiflexion neutral with PROM Strength Overall Strength: Generalized Weakness Strength Comment: Pt with chronic B foot drop-> B dorsiflexors grossly 2-/5. Bed Mobility/Transfer Bed Mobility: Supine to Sit: Minimal Assist;Verbal Cues;Bed Flat;No Rail;Assist with Trunk Bed Mobility: Sit to Supine: Standby Assist;Bed Flat Transfer Type: Sit to/from Stand Transfer: Assistance Level: To/From;Bed;Standby Assist Transfer: Assistive Device: None Transfers: Type Of Assistance: For Safety Considerations End Of Activity Status: In Bed;Nursing Notified Comments: Pt able to perform sup>side with SBA but unable to progress from side> sit without assist (no rail). Pt requires minimal assist for trunk assist to com plete transfer. Pt's spouse present and educated on proper way to assist pt wit h sup>sit. verbalized understanding Balance Standing Balance: Dynamic Standing Balance;No UE support(CGA) Gait Gait Distance: 200 feet(+ 100' + 80' (standing rest breaks)) Gait: Assistance Level: Standby Assist(CGA) Gait: Assistive Device: None Gait: Descriptors: Decreased foot clearance RLE;Decreased foot clearance LLE;Dec reased heel strike RLE;Decreased heel strike LLE;Pace: Slow;Decreased step lengt h;Variable step length Comments: Pt with 2 episodes of loss of balance-able to recover independently by steadying self on rail in hallway. Pt educated on use of RW for safety assist u ntil his pain improves. Pt elected not to wear BLE AFOs. Activity Limited By: Complaint of Fatigue(deconditioning, impaired balance) Activity/Exercise Comments: Practiced supine<>sit x 2 reps. Education Persons Educated: Patient/Family Patient Barriers To Learning: None Noted Teaching Methods: Verbal Instruction;Demonstration Patient Response: Verbalized Understanding;More Instruction Required Topics: Plan/Goals of PT Interventions;Use of Assistive Device/Orthosis;Mobility Progression;Safety Awareness;Importance of Increasing Activity;Ambulate With Nu rsing Assessment/Progress Impaired Mobility Due To: Decreased Strength;Pain;Impaired Balance;Decreased Act ivity Tolerance;Deconditioning;Post Surgical Changes Impaired Strength Due To: Pain;Deconditioning;Post Surgical Changes;Medical Stat us Limitation Assessment/Progress: Progressing Toward Goals;Should Improve w/ Continued PT AM-PAC 6 Clicks Basic Mobility Inpatient Turning from your back to your side while in a flat bed without using bed rails: None Moving from lying on your back to sitting on the side of a flatbed without using bedrails : A Little Moving to and from a bed to a chair (including a wheelchair): None Standing up from a chair using your arms (e.g. wheelchair, or bedside chair): No ne To walk in hospital room: None Climbing 3-5 steps with a railing: A Little Raw Score: 22 Standardized (T-scale) Score: 47.4 Basic Mobility CMS 0-100%: 25.02 CMS G Code Modifier for Basic Mobility: CJ Goals Goal Formulation: With Patient/Family Time For Goal Achievement: 1 day, To, 3 days Patient Will Go Supine To/From Sit: w/ Stand By Assist, Partly Met, Ongoing Patient Will Transfer Sit to Stand: w/ Stand By Assist, Met Patient Will Ambulate: 151-200 Feet, w/ Walker, w/ Stand By Assist, Met, New Goa l, w/ No Device Patient Will Go Up / Down Stairs: 1-2 Stairs, w/ Minimal Assist, Met(2-3 stairs) Plan Treatment Interventions: Mobility Training;Balance Activities;Endurance Training Plan Frequency: 3-5 Days per Week PT Plan for Next Visit: gait with RW for safety-wean as able, continue to practi ce sup>sit PT Discharge Recommendations Recommendation: Home with intermittent supervision/assistance Patient Currently Requires Equipment: Owns what is needed Therapist: Abi Gill, PT Date: 06/01/2019 L OPERATOR * Mohini Gloria RN - 06/01/2019 8:25 AM MOGUL OPERATOR Discharge Planning Phase Patient is POD 5, last BM 06/01/19, Franks removed, ambulating, patient's Pain is controlled with current analgesics. Medication(s) being used: acetaminophen a nd narcotic analgesics including tramadol (Ultram) for pain control, tolerating diabetic renal diet. Patient ready for discharge. [id number] [facility] Christy campa at [phone]. Fax confirmation received, this NC notified Linda Gordon. [phone] This NC rounded on patient, discussed plan for post-discharge: Labs on ay 06/04 at 7 AM, prior to taking medications. NC will let patient know if he nee ds to proceed to dialysis on Sunday 06/04. Notified patient of follow up appointment in [facility] on 06/05 at 08 40. Patient verbalized understanding. This NC provided patient with urinal and thermometer for vital sign monitoring. BP cuff will come from pharmacy. Date 05/27 05/28 05/29 05/30 05/31 06/01 Level n/a n/a 17.5 16.2 16.2 11.8 Dose 5 mg PM 5 BID 5 BID 5 BID 5 BID 5 BID Dose change? no no no no no no Leatha Gloria RN Pager [phone] L OPERATOR * Vita Rojas MD - 06/01/2019 7:02 AM MOGUL OPERATOR Endocrinology Note Name: Virginia Pace Admission Date: 05/27/2019 Active Problems: ESRD (end stage renal disease) (HCC) Hemodialysis patient (HCC) Uncontrolled type 1 diabetes mellitus with hypoglycemia (HCC) Kidney transplanted Obesity Immunosuppression (HCC) Depression Seizure disorder (HCC) GREGORY (obstructive sleep apnea) Vitamin D deficiency Reason for Consult: "Type 1 DM; glucose control, post operative from kidney transplant" Assessment / Plan Virginia Pace is a 49 y.o. male with history of type 1 diabetes, HTN, depre ssion, GREGORY, seizure disorder, end-stage renal disease on hemodialysis status pos t kidney transplant 05/27/2019. Endocrinology consulted for diabetes management in the setting of high-dose steroids. Type 1 Diabetes Mellitus, uncontrolled Dx: 2001 Last HgbA1C 8.4 on 04/19/2019 CLINICAL NURSE OCCUPATIONAL MEDICINE regimen: Medtronic 630 G Hypoglycemic episodes on this regimen: Daily Hypoglycemia Follows up with Dr. Phan for diabetes management Diabetic-complications assessment: Retinopathy: yes. Peripheral neuropathy: yes Autonomic neuropathy: no Nephropathy: ESRD s/p Kidney transplant Macrovascular complications: no known CAD Risk Factor assessment Last lipid profile elevated triglycerides, low HDL On ACEi/ARB?: no On Statin?: no Pump Router Operator Pin: Medtronic model 630 G Insulin type Humalog Insulin Time (IOB): Recently changed to 6 hours Insulin Pump Settings - (Changes this admission made in bold) Time Basal Rate ISF I:C Ratio Time Basal Rate ISF I:C Ratio MN 1.1 50 -->25 17-->10 noon 0100 1300 0200 1400 0300 1500 0400 1600 45-->25 0500 1.05 1700 0600 1830 0.875 0700 1900 0800 2000 0900 2100 1000 0.800 2200 1100 2300 1200 MN BG targets: 120 End-stage renal disease Previously on hemodialysis Status post kidney transplant 05/27/2019 Hypertension GREGORY Seizure disorder Depression Obesity Recently started on GLP-1 for wt by endocrinology - records from [facility] have previously been summarized Impression / Recommendations Blood sugars overall have been stable past 24 hours. Patient with tentative plan s for discharge today. Will restart pump with changes to his original settings noted above in blue and below. He will stay in close contact with his calcine furnace tender from [place]. We di scussed that over time he will likely need to continue to make changes to his pu mp due to his changing kidney function and steroid taper. Would recommend restarting victoza on discharge. -in terms of setting changes: (these were made with patient and today at [facility]) -in hospital patient was on glargine 36 units, prior pump settings total daily b nova 22.3 u---->will recommend patient start a temp basal of 130% at 1245 PM on 06/01/2019 prior to leaving -in hospital insulin to carb ratio was 1:6, prior pump settings were 1:17----> 06/01/2019 we have changed insulin to carb to 1:10 -in hospital correction factor was high dose (ISF of 10), prior pump settings IS F of 50----->06/01/2019 we have changed ISF to 25 Daily steroid taper starting 05/28/2019 Methylprednisolone 120 mg daily Methylprednisolone 80 mg daily Methylprednisolone 40 mg daily Prednisone 30 mg daily Prednisone 20 mg daily Prednisone 15 mg daily Prednisone 10 mg daily Prednisone 5 mg daily He will follow up with his outside calcine furnace tender. He has a dexcom g5 that is c urrently set up and he is receiving a dexcom G6 at home to transition to. Varun garrison and his feel comfortable with the plan. Patient seen by and discussed with Dr. Loli Rojas MD Endocrinology fellow Subjective: Virginia Pace is a 49 y.o. male who is doing well today. He has a good appe tite and ate well yesterday. He is excited to leave the hospital but states that he will be sticking around the [place] area for a little while before he go es back home to [place]. He will follow up wit his calcine furnace tender there Dr. Adam Rockies fevers, chills, nausea, vomiting Physical Exam: Gen: sitting in bed, comfortable, in no acute distress HEENT: EOMI Lungs: Non labored breathing, clear to auscultation over anterior lung jalloh Cardio: regular rate Neuro: alert and oriented x3 abd: dexcom G5 in place, insulin pump site in place Vital Signs: Last Filed In 24 Hours Vital Signs: 24 Hour Range BP: 137/64 (06/01 1000) Temp: 36.4 C (97.6 F) (06/01 948) Pulse: 75 (06/01 948) Respirations: 16 PER MINUTE (06/01 948) SpO2: 95 % (06/01 948) BP: (137-192)/(54-68) Temp: [36.3 C (97.4 F)-36.4 C (97.6 F)] Pulse: [75-86] Respirations: [14 PER MINUTE-18 PER MINUTE] SpO2: [93 %-96 %] Intensity Pain Scale (Self Report): 3 (06/01/19 0809) Medications: No current facility-administered medications on file prior to encounter. Current Outpatient Medications on File Prior to Encounter Medication Sig Dispense Refill albuterol sulfate (PROAIR HFA) 90 mcg/actuation aerosol inhaler Inhale 2 puf fs by mouth into the lungs every 6 hours as needed for Wheezing or Shortness of Breath. Shake well before use. bumetanide (BUMEX) 2 mg tablet Take 2 mg by mouth twice daily. calcitriol (ROCALTROL) 0.5 mcg capsule Take 0.5 mcg by mouth every 48 hours. calcium acetate (PHOSLO) 667 mg capsule Take 4 capsules with meals and 2 wit h snacks docusate (COLACE) 100 mg capsule Take 100 mg by mouth twice daily as needed. fluoxetine (PROZAC) 40 mg capsule Take 40 mg by mouth daily. insulin pump -ASPART- Patients Own by [employer] Pump route Three times daily with meals and as needed. liraglutide (VICTOZA) 0.6 mg/0.1 mL (18 mg/3 mL) injection pen Inject 0.6 mg under the skin daily. omeprazole DR(+) (PRILOSEC) 40 mg capsule Take 40 mg by mouth daily before b reakfast. pregabalin (LYRICA) 75 mg capsule Take 75 mg by mouth three times daily. tamsulosin (FLOMAX) 0.4 mg capsule Take 0.4 mg by mouth daily. Do not crush, chew or open capsules. Take 30 minutes following the same meal each day. traZODone (DESYREL) 100 mg tablet Take 100 mg by mouth at bedtime daily. Lab/Radiology/Other Diagnostic Tests: 24-hour labs: Results for orders placed or performed during the hospital encounter of 05/27/19 (from the past 24 hour(s)) POC GLUCOSE Collection Time: 05/31/19 12:09 PM Result Value Ref Range Glucose, POC 183 (H) 70 - 100 MG/DL PTT (APTT) Collection Time: 05/31/19 4:40 PM Result Value Ref Range APTT 102.1 (H) 24.0 - 36.5 SEC POC GLUCOSE Collection Time: 05/31/19 5:59 PM Result Value Ref Range Glucose, POC 196 (H) 70 - 100 MG/DL POC GLUCOSE Collection Time: 05/31/19 9:15 PM Result Value Ref Range Glucose, POC 177 (H) 70 - 100 MG/DL TACROLIMUS LEVEL(FK506) Collection Time: 06/01/19 4:20 AM Result Value Ref Range Tacrolimus 11.8 2 - 15 NG/ML BASIC METABOLIC PANEL Collection Time: 06/01/19 4:20 AM Result Value Ref Range Sodium 138 137 - 147 MMOL/L Potassium 3.8 3.5 - 5.1 MMOL/L Chloride 99 98 - 110 MMOL/L CO2 26 21 - 30 MMOL/L Anion Gap 13 (H) 3 - 12 Glucose 216 (H) 70 - 100 MG/DL Blood Urea Nitrogen 63 (H) 7 - 25 MG/DL Creatinine 6.80 (H) 0.4 - 1.24 MG/DL Calcium 8.3 (L) 8.5 - 10.6 MG/DL eGFR Non 9 (L) >60 mL/min eGFR 11 (L) >60 mL/min CBC Collection Time: 06/01/19 4:20 AM Result Value Ref Range White Blood Cells 4.4 (L) 4.5 - 11.0 K/UL RBC 3.06 (L) 4.4 - 5.5 M/UL Hemoglobin 9.9 (L) 13.5 - 16.5 GM/DL Hematocrit 28.9 (L) 40 - 50 % MCV 94.2 80 - 100 FL MCH 32.2 26 - 34 PG MCHC 34.2 32.0 - 36.0 G/DL RDW 14.4 11 - 15 % Platelet Count 100 (L) 150 - 400 K/UL MPV 9.8 7 - 11 FL MAGNESIUM Collection Time: 06/01/19 4:20 AM Result Value Ref Range Magnesium 2.1 1.6 - 2.6 mg/dL PHOSPHORUS Collection Time: 06/01/19 4:20 AM Result Value Ref Range Phosphorus 5.3 (H) 2.0 - 4.5 MG/DL PTT (APTT) Collection Time: 06/01/19 4:20 AM Result Value Ref Range APTT 50.5 (H) 24.0 - 36.5 SEC POC GLUCOSE Collection Time: 06/01/19 8:37 AM Result Value Ref Range Glucose, POC 213 (H) 70 - 100 MG/DL Glucose: (!) 216 (06/01/19 0420) POC Glucose (Download): (!) 213 (06/01/19 0837) Pertinent radiology reviewed. L OPERATOR Associated attestation - Joan Ennis MD - 06/01/2019 6:55 PM MOGUL OPERATOR ATTESTATION I personally performed the loyola portions of the E/M visit, discussed case with re sident and concur with resident documentation of history, physical exam, assessm ent, and treatment plan unless otherwise noted. We put his insulin pump back on it and made changes as stated in the endocrine fellow note. We also set a temp basal. We instructed his him and his regarding the need to set this to be as little every 24 hours if indicated based on hyperglycemia. We discussed dif ferent scenarios for this and they stated good understanding. They will call if questions or concerns arise. They state they will have follow-up in the next f ew weeks with their primary calcine furnace tender in [facility]. Assessment: Type 1 diabetes, uncontrolled, with complications Insulin pump adjustment Status post kidney transplant Steroid-induced hyperglycemia Staff name: Joan Ennis MD Date: 06/01/2019 * Juan Castro DO - 06/01/2019 6:57 AM MOGUL OPERATOR Transplant Surgery Progress Note Patient Name: Virginia Pace Admit Date: 05/27/2019 Assessment: Active Problems: ESRD (end stage renal disease) (HCC) Hemodialysis patient (HCC) Uncontrolled type 1 diabetes mellitus with hypoglycemia (HCC) Kidney transplanted Obesity Immunosuppression (HCC) Depression Seizure disorder (HCC) GREGORY (obstructive sleep apnea) Vitamin D deficiency S/P DDRT 05/27/19 for ESRD 2/2 DMI POD5 Right cadaveric kidney transplant on the right. Ureteral stent placed. Induction: thymo 150mg, Solumedrol 500mg. Myfortic 720mg BID Immunosuppression: Thymo 150mg 05/28, 150mg 05/29 Steroid taper Myfortic 720mg BID Prograf 5mg BID with goal of 10-15. Follow levels CORI: 370mL/24hrs Creatinine: 6.8 (5.98) HD 05/30/19 3.5 liters removed UOP: 1240mL/24hrs Ppx PJP: Bactrim to start on discharge CMV: D+/R- Valcyte to start on discharge Stent: Keflex while inpatient Fungal: Nystatin QID DVT: Heparin gtt 400u/hr Endo Uncontrolled type 1 DM, peripheral neuropathy, retinopathy BS 133-196 Hgb A1C 04/19/19: 8.4 CLINICAL NURSE OCCUPATIONAL MEDICINE: aspart insulin pump, victoza 0.6mg daily Current: Correction factor before and with meals, glargine 36u qhs FEN Renal diabetic diet SLIV Bowel regimen Plan: Immunosuppression: Continue steroid taper and Myfortic 720mg BID. Adjust Prograf to achieve goal. *DDRT: Maintain CORI drain. Continue heparin drip until d/c. ASA 81mg daily at irma e of d/c. *Endo: Insulin per endo recs. Start ergo weekly. *FEN: Diabetic renal diet. *Dispo: Continue floor care, PT/OT. Discharge teaching. Will discuss with renal transplant discharge either 06/01 or 06/02 Seen and discussed with Dr Jones who directed care. Subjective; Examined at bedside; NAEO Pain well controlled Has had no SOB Has had flatus or BM Objective: Vitals: 05/31/19 2215 05/31/19 2230 06/01/19 0100 06/01/19 0529 BP: 163/62 167/59 162/54 150/68 BP Source: Leg, Left Lower Leg, Left Lower Pulse: 79 77 77 81 Temp: 36.3 C (97.4 F) 36.4 C (97.5 F) SpO2: 96% 93% Weight: 101.7 kg (224 lb 3.2 oz) Height: Physical Exam GEN: NAD. Conversant. HEENT: Nonicteric bilaterally. NEURO: AOx3. PERRL. JANE. Pain controlled with tramadol. RESP: Unlabored. Normal breathing pattern. RA. CARDIO: rate regular lower extremity edema improved edema BLE, 2+pulses. ABD: Soft, round, ND. TTP, RLQ. Incision with maria r, JANITORIAL ACCOUNT MANAGER. CORI with light SS dra bartholomew. INTEG: Dry, warm. Labs/Radiology Pertinent Labs/radiology results reviewed. L OPERATOR Associated attestation - Shine Jones MD - 06/01/2019 7:41 AM MOGUL OPERATOR ATTESTATION I personally performed the loyola portions of the E/M visit, discussed case with re sident and concur with resident documentation of history, physical exam, assessm ent, and treatment plan unless otherwise noted. Staff name: Shine Jones MD Date: 06/01/2019 * Radha Chen RN - 05/31/2019 9:22 PM MOGUL OPERATOR 05/31/[id number] Vitals Temp 36.4 C (97.5 F) -- -- Temperature Source Oral -- -- Pulse 78 80 84 Respirations 16 PER MINUTE -- -- SpO2 93 % -- -- $$ O2 Delivery NIV -- -- BP 180/59 192/61 179/61 Mean NBP (Calculated) 99 MM HG 105 MM HG 100 MM HG BP Source Leg, Left Lower -- -- BP Method Automatic -- -- BP Patient Position Head of bed (Comment degree) -- -- RN text page team to notify of above VS. Patient asymptomatic at this time. (tra cking#[id number]) L OPERATOR * Radha Chen RN - 05/31/2019 7:17 PM MOGUL OPERATOR Ptt 102.1 with evening check. RN text paged team to notify. (tracking#[id number] ) Per Dr. Valencia, no adjustments at this time. Will continue to monitor. L OPERATOR * Jesica Saenz, RD - 05/31/2019 4:13 PM MOGUL OPERATOR CLINICAL NUTRITION Clinical Nutrition Follow-Up Assessment Discharge Planning phase Name: Virginia Pace : 1970 Age: 49 y.o. Admission Date: 05/27/2019 LOS: 2 days Recommendation: Continue Diet as ordered. Comments: Pt admitted for renal transplant s/p DDRT 05/27/2019. PMH of ESRD on HD, HTN, T1D M, osteomyelitis s/p L Great toe amputation, and cholecystectomy. Subjective nut rition hx in previous RD note. Pt diet is now advanced to renal + diabetic CHO c ontrol (60g/meal). Pt reports tolerating diet okay but he is constipated and thi s is causing low appetite. Per EMR review, pt ate 80-100% of [address] d iscussed importance of fluids and physical activity for bowel function. Advised compliance with bowel regimen. Pt endorsed understanding. RD reviewed education on post transplant nutrition guidelines including food saf ety, hand hygiene, grapefruit and pomegranate avoidance. Pt and/or family were g iven the opportunity to ask questions. Pt is eating adequately . Pt is planning to discharge to home and his wifewill be preparing foods.Pt is ready for dis charge from a nutritional perspective. Nutrition Assessment of Patient: Admit Weight: 97.2 kg(unknown source); Weight Change Since Admit: +5.59 kg BMI (Calculated): 37.53; BMI Categories Adult: Obesity Class I: 30-34.9 Pertinent Allergies/Intolerances: None noted Pertinent Labs: Phos 5.0, 24 hr POC Glucose of 273-133; Pertinent Meds: Reviewed ; Oral Diet Order: Renal- non dialysis patient;Diabetic 4865-4821 Kcal/day (60 g c arb/meal, 30 g carb/HS snack); Current Oral Intake: Marginally Adequate Estimated Calorie Needs: 8081-8617(23-28kcal/kg of dw 70kg) Estimated Protein Needs: 56-70(0.8-1g/kg of dw 70kg) Malnutrition Assessment: Adequately nourished prior to admission; Nutrition Focused Physical Assessment: Loss of Subcutaneous Fat: No; ; Muscle Wasting: No; ; Edema: Yes; Severity: Mild(Peripheral, trace); Location: Left, Right, Lower extr emities(Pedal) Pressure Injury: None noted Nutrition Diagnosis: Increased nutrient needs, specify: Etiology: kcal/protein: demands for healing Signs & Symptoms: s/p DDRT 05/27 Intervention / Plan: Reviewed post-transplant diet recommendations. Monitor PO intake/adequacy, wt, labs, meds, I/Os. Goals: Verbalize understanding of diet Time Frame: Prior to discharge Status: Met Patient to consume >75% of meals/supplements Time Frame: Throughout stay Status: Partially met;Ongoing Kerrie Saenz RD, LD V: [phone] L OPERATOR * Jamee Pryor, OT - 05/31/2019 1:30 PM MOGUL OPERATOR OCCUPATIONAL THERAPY Daily Note Name: Virginia Pace : 1970 Age: 49 y.o. Admission Date: 05/27/2019 LOS: 0 days S/P DDRT1/for ESRD 2/2 DMI POD2 Right cadaveric kidney transplanton the right. Ureteral stent placed. Mobility: walking with PT this am with walker and SBA in halls Subjective Patient Stated Goals: pt and spouse asking appropriate questions and able to oksana balize understanding with all education Precautions: Standard;Falls(multiple lines) R LE Precautions: RLE AFO: Ankle Foot Orthosis Comments: (foot drop; wear AFO) L LE Precautions: LLE AFO: Ankle Foot Orthosis Comments: (foot drop; wears AFO) Pain / Complaints: Patient agrees to participate in therapy Pain Location: Abdomen Pain Level Current: 6 Severe pain(4 seated; 6 standing) Objective Psychosocial Status: Willing and Cooperative to Participate Persons Present: Spouse;Physical Therapist;Nursing Staff Home Living Type of Home: House(3STE with one rail) Home Layout: Able to Live on Main Level w/Bedrm/Bathrm Access Bathroom Shower / Tub: Tub/Shower Unit;Walk-in Shower(has a chair) Home Equipment: Walker Prior Function Level Of [place]: Independent with ADLs and functional transfers Lives With: Spouse Other Function Comments: wears AFOs on bilateral feet outside the home; on O2 at night. currently 4 liters when up to chair Vision Current Vision: Wears Glasses All of the Time(cateracts bilaterally) ADL's: 05/31/19: Where Assessed: Edge of Bed;Chair Eating Assist: Stand By Assist Grooming Assist: Stand By Assist UE Dressing: stand by assist LE Dressing: minimal assist Toileting Assist: Stand by assist Functional Transfer Assist: Stand by assist with walker Comment: pt up with PT and walking lap in hallway with use of walker. Pt in bed finishing lunch this pm. Spoke with pt and family and pt has been able to stand at sink for grooming and perform toileting with Stand By assist. OT educated pt on techniques for LE dressing to work on crossing his legs to get to his feet. P t states he normally would sit at EOB and bend down although knows this will be painful currently. Pt agreeable later today to work on crossing legs; pt states he will also put on his underwear later using the technique. also will be a vailable to assist pt prn until this skill get easier. Pt with RN providing med s in room and spouse/family present end of OT session. Activity Tolerance Endurance: 3/5 Tolerates 25-30 Minutes Exercise w/Multiple Rests Sitting Balance: 4/5 Moves/Returns Trunkal Midpoint 1-2 Inches in Multiple Plane s Cognition Overall Cognitive Status: WFL to Adequately Complete Self Care Tasks Safely UE AROM Overall BUE AROM WNL: Yes Grasp: Bilateral Grasp Functional for Activity(states weaker in left hand; still 4/5) Comment: (rotator repair to left shoulder) UE Strength / Tone Overall Strength / Tone: WFL Able to Perform ADL Tasks Education Persons Educated: Patient/Family Barriers To Learning: Pain;Anxiety Interventions: Repetition of Instructions;Physical Cueing Teaching Methods: Verbal Instruction;Demonstration Patient Response: Verbalized and Demo Understanding Topics: Role of OT, Goals for Therapy;DME for Home Discharge;UE Exercises;Home s afety;Energy Conservation;ADL Compensatory Techniques;Adaptive Devices for ADLs Goal Formulation: With Patient/Family Assessment Assessment: Decreased ADL Status;Decreased Endurance;Decreased Self-Care Trans;D ecreased High-Level ADLs Prognosis: Good;w/ Family Goal Formulation: Pt/family AM-PAC 6 Clicks Daily Activity Inpatient Putting on and taking off regular lower body clothes?: A Lot Bathing (Including washing, rinsing, drying): A Lot Toileting, which includes using toilet, bedpan, or urinal: Total Putting on and taking off regular upper body clothing: A Little Taking care of personal grooming such as brushing teeth: A Little Eating meals?: A Little Daily Activity Raw Score: 14 Standardized (t-scale) score: 33.39 CMS 0-100% Score: 59.67 CMS G Code Modifier: CK Plan Progress: Progressing Toward Goals OT Frequency: f/u visit on 06/01/19 OT Plan for Next Visit: check if any further needs prior to possible d/c on 05/10 4. Pt should continue to do well with PT for overall mobility needs. ADL Goals Patient Will Perform Grooming: Standing at Sink;w/ Stand By Assist Patient Will Perform LE Dressing: At Edge of Bed;In Chair;w/ Minimum Assist;w/ A daptive Equipment Patient Will Perform Toileting: w/ Stand By Assist Functional Transfer Goals Pt Will Perform All Functional Transfers: w/ Stand By Assist, w/ Assistive Devic es, w/ Good Judgment/Safety OT Discharge Recommendations Recommendation: Home with intermittent supervision/assistance Patient Currently Requires Physical Assist With: All mobility;All personal care ADLs;All home functioning ADLs;Ambulation;Bathing;In and out of house;Meal prepa ration Patient Currently Requires Equipment: Owns what is needed Therapist: LAURIE Thompson/[place] [id number] Date: 05/31/2019 L OPERATOR * Pearl Griffiths, PT - 05/31/2019 11:12 AM MOGUL OPERATOR PHYSICAL THERAPY PROGRESS NOTE Name: Virginia Pace : 1970 Age: 49 y.o. Admission Date: 05/27/2019 LOS: 2 days Mobility Patient Turn/Position: Self Progressive Mobility Level: Walk in hallway Distance Walked (feet): 350 ft Level of Assistance: Stand by assistance Assistive Device: Walker Time Tolerated: 11-30 minutes Activity Limited By: Fatigue Subjective Significant hospital events: History of ESRD 2/2 DMI s/p DDRT 05/27/2019. Mental / Cognitive Status: Alert;Oriented;Cooperative;Follows Commands Persons Present: Spouse Pain: Patient has no complaint of pain Pain Interventions: Patient agrees to participate in therapy;Patient assisted in to position of comfort Comments: Room Air - SpO2 96% after ambulation. R LE Precautions: RLE AFO: Ankle Foot Orthosis Comments: Patient declines need to wear during therapy session. L LE Precautions: LLE AFO: Ankle Foot Orthosis Comments: Patient declines need to wear during therapy session. Ambulation Assist: Independent Mobility in Community without Device Patient Owned Equipment: Roller Walker Home Situation: Lives with Family Type of Home: House(3STE with one rail) Entry Stairs: 1-2 Stairs;Rail on 1 Side(2-3 stairs) In-Home Stairs: Able to Live on One Level Bed Mobility/Transfer Bed Mobility: Supine to Sit: Standby Assist;Verbal Cues Bed Mobility: Sit to Supine: Standby Assist;Bed Flat Transfer Type: Sit to/from Stand Transfer: Assistance Level: From;Bed;Standby Assist Transfer: Assistive Device: Roller Walker Transfers: Type Of Assistance: For Safety Considerations End Of Activity Status: In Bed;Nursing Notified;Instructed Patient to Request As sist with Mobility;Instructed Patient to Use Call Light Gait Gait Distance: 350 feet Gait: Assistance Level: Standby Assist Gait: Assistive Device: Roller Walker Gait: Descriptors: Decreased foot clearance RLE;Decreased foot clearance LLE;Dec reased heel strike RLE;Decreased heel strike LLE;Forward trunk flexion;Pace: Slo w;No balance loss;Decreased step length(bilateral foot drop) Activity Limited By: Complaint of Fatigue Education Persons Educated: Patient/Family Patient Barriers To Learning: None Noted Teaching Methods: Verbal Instruction Patient Response: Verbalized Understanding;Return Demonstration Topics: Plan/Goals of PT Interventions;Use of Assistive Device/Orthosis;Mobility Progression;Safety Awareness;Up with Assist Only;Importance of Increasing Activ ity;Ambulate With Nursing;Equipment Recommendations;Recommend Continued Therapy; Therapy Schedule Assessment/Progress Assessment/Progress: Progressing Toward Goals AM-PAC 6 Clicks Basic Mobility Inpatient Turning from your back to your side while in a flat bed without using bed rails: None Moving from lying on your back to sitting on the side of a flatbed without using bedrails : None Moving to and from a bed to a chair (including a wheelchair): None Standing up from a chair using your arms (e.g. wheelchair, or bedside chair): No ne To walk in hospital room: A Little Climbing 3-5 steps with a railing: A Little Raw Score: 22 Standardized (T-scale) Score: 47.4 Basic Mobility CMS 0-100%: 25.02 CMS G Code Modifier for Basic Mobility: CJ Goals Goal Formulation: With Patient/Family Time For Goal Achievement: 5 days Patient Will Go Supine To/From Sit: w/ Stand By Assist Patient Will Transfer Sit to Stand: w/ Stand By Assist Patient Will Ambulate: 151-200 Feet, w/ Walker, w/ Stand By Assist Patient Will Go Up / Down Stairs: 1-2 Stairs, w/ Minimal Assist(2-3 stairs) Plan Treatment Interventions: Mobility Training Plan Frequency: 3-5 Days per Week PT Plan for Next Visit: Trial stairs, wean from walker as able. P.T. mobility aide to assist with ongoing mobilization and exercise per instruct ions of licensed physical therapy staff. PT Discharge Recommendations Recommendation: Home with intermittent supervision/assistance Patient Currently Requires Equipment: Rolling Walker -- Patient requires the use of a walker with wheels to complete ADLs in the home including meal preparat ion, ambulation the bathroom for toileting, bathing and grooming, and safe home mobility. Patient is unable to complete these ADLs with a cane or crutch and can safely use the walker. Comments: PT discussed recommendations with patient, spouse and SW -- recommend RW and making sure there is a handrail on stairs at local housing. Therapist: Pearl Griffith[place] DPT [id number] Date: 05/31/2019 L OPERATOR * Addie Henderson APRN - 05/31/2019 10:46 AM MOGUL OPERATOR Transplant Surgery WAREHOUSE DISTRIBUTION SPECIALIST Progress Note Patient Name: Virginia Pace Admit Date: 05/27/2019 Assessment: Active Problems: ESRD (end stage renal disease) (HCC) Hemodialysis patient (HCC) Uncontrolled type 1 diabetes mellitus with hypoglycemia (HCC) Kidney transplanted Obesity Immunosuppression (HCC) Depression Seizure disorder (HCC) GREGORY (obstructive sleep apnea) Vitamin D deficiency S/P DDRT 05/27/19 for ESRD 2/2 DMI POD4 Right cadaveric kidney transplant on the right. Ureteral stent placed. Induction: thymo 150mg, Solumedrol 500mg. Myfortic 720mg BID Immunosuppression: Thymo 150mg 05/28, 150mg 05/29 Steroid taper Myfortic 720mg BID Prograf 5mg BID with goal of 10-15. Follow levels CORI: 238mL/24hrs Creatinine: 5.98 HD 05/30/19 3.5 liters removed UOP: 1250mL/24hrs (Franks in place) Ppx PJP: Bactrim to start on discharge CMV: D+/R- Valcyte to start on discharge Stent: Keflex while inpatient Fungal: Nystatin QID DVT: Heparin gtt 400u/hr Endo Uncontrolled type 1 DM, peripheral neuropathy, retinopathy BS 146-273 Hgb A1C 04/19/19: 8.4 CLINICAL NURSE OCCUPATIONAL MEDICINE: aspart insulin pump, victoza 0.6mg daily Current: Correction factor before and with meals, glargine 36u qhs FEN Renal diabetic diet SLIV Bowel regimen Plan: Immunosuppression: Continue steroid taper and Myfortic 720mg BID. Adjust Prograf to achieve goal. *DDRT: Remove franks. Maintain CORI drain. Continue heparin drip until d/c. ASA 81m g daily at time of d/c. *Endo: Insulin per endo recs. Start ergo weekly. *FEN: Diabetic renal diet. *Dispo: Continue floor care, PT/OT. Discharge teaching. Seen and discussed with Dr Jones who directed care. Subjective: Virginia Pace is a 49 y.o. patient. Feels great today. Pain con trolled. Swelling improved. Denies N/V, SOA, CP. +BM yesterday. Objective: Vitals: 05/31/19 0134 05/31/19 0400 05/31/19 0539 05/31/19 1010 BP: 149/55 152/58 153/58 Pulse: 77 74 75 84 Temp: 36.8 C (98.2 F) 36.5 C (97.7 F) 36.7 C (98.1 F) SpO2: 96% 96% 92% Weight: 102.8 kg (226 lb 9.6 oz) Height: Physical Exam GEN: NAD. Conversant. HEENT: Nonicteric bilaterally. NEURO: AOx3. PERRL. JANE. Pain controlled with tramadol. RESP: Unlabored. Normal breathing pattern. RA. CARDIO: 1+ edema BLE, 1+ BUE edema. 2+pulses. ABD: Soft, round, ND. TTP, RLQ. Incision with maria r, JANITORIAL ACCOUNT MANAGER. CORI with light SS dra bartholomew. : Franks with yellow UOP. INTEG: Dry, warm. Labs/Radiology Pertinent Labs/radiology results reviewed. Addie Henderson APRN Pager [phone] L OPERATOR * Alice Elise - 05/31/2019 9:41 AM MOGUL OPERATOR Note: Admit Date: 05/27/2019 Reason for Visit: Inventory Associate And Driver referral. I met with pt and his spouse, Pamela. Jen/Orthodoxy: Pt has a deep jen and describes himself as "spiritual." Pt sha red an experience he had before going into surgery for transplant. Pt said that he was "scared" before surgery and then he felt a "warm hug" and reassurance fro m God that he would be ok. Pt said he paused with the team caring for him and to ld them about this experience and that they were also "blessed." Pt said that af ter surgery he again felt a "warm hug," which gave him continued reassurance. Source of Purpose/Meaning: Pt's family seems to be his primary source of meaning . Pt and spouse have 3 sons and one grandchild. They talked at length about thei r 3 great-nephews, one of whom is a . They care for the 2 older children on a daily basis. These children are very important in pt and spouse's lives. Pt also said that he enjoys staying busy and being outdoors. Pt and spouse also ta lked about their hope to do more traveling as well as build their own home. Pt a nd spouse expressed deep gratitude for the donation that made his transplant pos sible. Worries/Concerns/Struggles: Pt and spouse talked about how difficult the past 5 years have been. Pt has been on dialysis and has been doing hemodialysis at home . His spouse has been managing the dialysis machinery, which she said was diffic ult at first. She talked about growing in confidence after doing the dialysis fo r a while. Pt and spouse shared the difficulties of pt being on dialysis and the freedom they are looking forward to now. Method(s) of Coping: Pt seems to be coping well. As noted above, he enjoys stayi ng busy and being outdoors. His spouse and family help him cope. Support System: Pt's spouse is his primary support person. Interventions/Plan: I listened actively, offering support and guiding review of pt's life, health, and jen. I shared in the shruti of pt's transplant and affirme d his hopes for the future. I also validated pt's spiritual experience and the p eace he received. I offered a blessing for pt's continued recovery and hopes for the future. I will remain available for addition support and needed. The spiritual care team is available as needed, 29/11, through the [place] [facility] ([phone]). For immediate response, please page [phone]. For a response within 24 hours, please submit an order in O2 for a animal hospital clerk consult. Date/Time: User: Pager: [phone] 05/31/2019 9:41 AM Alice Elise L OPERATOR * Mohini Gloria, RN - 05/31/2019 9:04 AM MOGUL OPERATOR Discharge Planning Phase Patient is POD 4, last BM 05/30/19, Franks in place, ambulating, patient's Pain is controlled with current analgesics. Medication(s) being used: acetaminophen for pain control, tolerating renal diabetic diet. Patient not ready for discharg e. 1010 This [facility] rounded on patient, made plan to start teaching in approximately [address] Palm patient may need local dialysis set up, preferably at [facility]. This [facility] notified Linda Gordon. 1030 Met with patient and . Discussed discharge teaching including wound car e, signs and symptoms of wound infection, vital sign monitoring, when to page stamp redemption clerk RN, expectation for clinic appointment and labs, ureteral stent removal and appointment, and Prograf trough. Patient given written instructions regarding ureteral stent appointment on 0 at 1300. Pt's questions answered. 's questions answered. Leatha Riester, RN Pager [phone] L OPERATOR * Vita Rojas MD - 05/31/2019 7:36 AM MOGUL OPERATOR Endocrinology Note Name: Virginia Pace Admission Date: 05/27/2019 Active Problems: ESRD (end stage renal disease) (HCC) Hemodialysis patient (HCC) Uncontrolled type 1 diabetes mellitus with hypoglycemia (HCC) Kidney transplanted Obesity Immunosuppression (HCC) Depression Seizure disorder (HCC) GREGORY (obstructive sleep apnea) Vitamin D deficiency Reason for Consult: "Type 1 DM; glucose control, post operative from kidney transplant" Assessment / Plan Virginia Pace is a 49 y.o. male with history of type 1 diabetes, HTN, depre ssion, GREGORY, seizure disorder, end-stage renal disease on hemodialysis status pos t kidney transplant 05/27/2019. Endocrinology consulted for diabetes management in the setting of high-dose steroids. Type 1 Diabetes Mellitus, uncontrolled Dx: 2001 Last HgbA1C 8.4 on 04/19/2019 CLINICAL NURSE OCCUPATIONAL MEDICINE regimen: Medtronic 630 G Hypoglycemic episodes on this regimen: Daily Hypoglycemia Follows up with Dr. Phan for diabetes management Diabetic-complications assessment: Retinopathy: yes. Peripheral neuropathy: yes Autonomic neuropathy: no Nephropathy: ESRD s/p Kidney transplant Macrovascular complications: no known CAD Risk Factor assessment Last lipid profile elevated triglycerides, low HDL On ACEi/ARB?: no On Statin?: no Pump Router Operator Pin: Medtronic model 630 G Insulin type Humalog Insulin Time (IOB): Recently changed to 6 hours Insulin Pump Settings - (Changes this admission made in bold) Time Basal Rate ISF I:C Ratio Time Basal Rate ISF I:C Ratio MN 1.1 50 17 noon 0100 1300 0200 1400 0300 1500 0400 1600 0500 1.05 1700 45 0600 1830 0.875 0700 1900 0800 2000 0900 2100 1000 0.800 2200 1100 2300 1200 MN BG targets: 120 End-stage renal disease Previously on hemodialysis Status post kidney transplant 05/27/2019 Hypertension GREGORY Seizure disorder Depression Obesity Recently started on GLP-1 for wt by endocrinology I have reviewed outside records from [facility]. They have been summarized (no rafal, labs, imaging) where appropriate. Impression / Recommendations Blood sugars overall hyperglycemic past 24 hours. With reduction in steroids tod ay will not make any changes to subcutaneous insulin regimen. Tentative plan per patient is for discharge tomorrow. Will either transition to insulin pump this afternoon or tomorrow morning. continue Glargine 36 daily continue insulin to carb ratio 1:6 continue high dose correction factor Daily steroid taper starting 05/28/2019 Methylprednisolone 120 mg daily Methylprednisolone 80 mg daily Methylprednisolone 40 mg daily Prednisone 30 mg daily Prednisone 20 mg daily Prednisone 15 mg daily Prednisone 10 mg daily Prednisone 5 mg daily He will follow up with his outside calcine furnace tender. He has a dexcom g5 he can se t up here as well and plans to transition to dexcom g6 when he gets home. Patient seen by and discussed with Dr. Loli Rojas MD Endocrinology fellow Subjective: Virginia Pace is a 49 y.o. male who is overall doing well today. He states that he has had a good appetite and eating well. His is with him and they h ave all of their supplies here at the hospital. He will [facility] his [facility] calcine furnace tender and has a dexcom G5 here as well to set up. Denies fevers, chills, nausea, vomiting Physical Exam: Gen: sitting in bed, comfortable, in no acute distress HEENT: EOMI Lungs: Non labored breathing, clear to auscultation over anterior lung jalloh Cardio: regular rate Neuro: alert and oriented x3 Vital Signs: Last Filed In 24 Hours Vital Signs: 24 Hour Range BP: 153/58 (05/31 1010) Temp: 36.7 C (98.1 F) (05/31 1010) Pulse: 84 (05/31 1010) Respirations: 18 PER MINUTE (05/31 1010) SpO2: 92 % (05/31 1010) SpO2 Pulse: 85 (05/30 1440) BP: (145-155)/(39-58) Temp: [36.5 C (97.7 F)-36.8 C (98.3 F)] Pulse: [74-90] Respirations: [18 PER MINUTE-24 PER MINUTE] SpO2: [92 %-96 %] Intensity Pain Scale (Self Report): 1 (05/31/19 4863) Medications: No current facility-administered medications on file prior to encounter. Current Outpatient Medications on File Prior to Encounter Medication Sig Dispense Refill albuterol sulfate (PROAIR HFA) 90 mcg/actuation aerosol inhaler Inhale 2 puf fs by mouth into the lungs every 6 hours as needed for Wheezing or Shortness of Breath. Shake well before use. bumetanide (BUMEX) 2 mg tablet Take 2 mg by mouth twice daily. calcitriol (ROCALTROL) 0.5 mcg capsule Take 0.5 mcg by mouth every 48 hours. calcium acetate (PHOSLO) 667 mg capsule Take 4 capsules with meals and 2 wit h snacks docusate (COLACE) 100 mg capsule Take 100 mg by mouth twice daily as needed. fluoxetine (PROZAC) 40 mg capsule Take 40 mg by mouth daily. insulin pump -ASPART- Patients Own by SubQ Pump route Three times daily with meals and as needed. liraglutide (VICTOZA) 0.6 mg/0.1 mL (18 mg/3 mL) injection pen Inject 0.6 mg under the skin daily. omeprazole DR(+) (PRILOSEC) 40 mg capsule Take 40 mg by mouth daily before b reakfast. pregabalin (LYRICA) 75 mg capsule Take 75 mg by mouth three times daily. tamsulosin (FLOMAX) 0.4 mg capsule Take 0.4 mg by mouth daily. Do not crush, chew or open capsules. Take 30 minutes following the same meal each day. traZODone (DESYREL) 100 mg tablet Take 100 mg by mouth at bedtime daily. Lab/Radiology/Other Diagnostic Tests: 24-hour labs: Results for orders placed or performed during the hospital encounter of 05/27/19 (from the past 24 hour(s)) POC GLUCOSE Collection Time: 05/30/19 3:06 PM Result Value Ref Range Glucose, POC 146 (H) 70 - 100 MG/DL POC GLUCOSE Collection Time: 05/30/19 6:43 PM Result Value Ref Range Glucose, POC 273 (H) 70 - 100 MG/DL PTT (APTT) Collection Time: 05/30/19 6:53 PM Result Value Ref Range APTT 80.7 (H) 24.0 - 36.5 SEC POC GLUCOSE Collection Time: 05/30/19 7:34 PM Result Value Ref Range Glucose, POC 241 (H) 70 - 100 MG/DL POC GLUCOSE Collection Time: 05/30/19 10:47 PM Result Value Ref Range Glucose, POC 231 (H) 70 - 100 MG/DL BASIC METABOLIC PANEL Collection Time: 05/31/19 4:23 AM Result Value Ref Range Sodium 138 137 - 147 MMOL/L Potassium 4.1 3.5 - 5.1 MMOL/L Chloride 100 98 - 110 MMOL/L CO2 27 21 - 30 MMOL/L Anion Gap 11 3 - 12 Glucose 121 (H) 70 - 100 MG/DL Blood Urea Nitrogen 50 (H) 7 - 25 MG/DL Creatinine 5.98 (H) 0.4 - 1.24 MG/DL Calcium 8.0 (L) 8.5 - 10.6 MG/DL eGFR Non 10 (L) >60 mL/min eGFR 12 (L) >60 mL/min CBC Collection Time: 05/31/19 4:23 AM Result Value Ref Range White Blood Cells 3.4 (L) 4.5 - 11.0 K/UL RBC 2.93 (L) 4.4 - 5.5 M/UL Hemoglobin 9.6 (L) 13.5 - 16.5 GM/DL Hematocrit 27.3 (L) 40 - 50 % MCV 93.1 80 - 100 FL MCH 32.8 26 - 34 PG MCHC 35.2 32.0 - 36.0 G/DL RDW 14.7 11 - 15 % Platelet Count 135 (L) 150 - 400 K/UL MPV 9.7 7 - 11 FL MAGNESIUM Collection Time: 05/31/19 4:23 AM Result Value Ref Range Magnesium 2.2 1.6 - 2.6 mg/dL PHOSPHORUS Collection Time: 05/31/19 4:23 AM Result Value Ref Range Phosphorus 5.0 (H) 2.0 - 4.5 MG/DL TACROLIMUS LEVEL(FK506) Collection Time: 05/31/19 4:23 AM Result Value Ref Range Tacrolimus 16.2 (HH) 2 - 15 NG/ML PTT (APTT) Collection Time: 05/31/19 4:23 AM Result Value Ref Range APTT 43.4 (H) 24.0 - 36.5 SEC POC GLUCOSE Collection Time: 05/31/19 8:13 AM Result Value Ref Range Glucose, POC 133 (H) 70 - 100 MG/DL POC GLUCOSE Collection Time: 05/31/19 12:09 PM Result Value Ref Range Glucose, POC 183 (H) 70 - 100 MG/DL Glucose: (!) 121 (05/31/19 0423) POC Glucose (Download): (!) 183 (05/31/19 1209) Pertinent radiology reviewed. L OPERATOR Associated attestation - Joan Ennis MD - 05/31/2019 3:45 PM MOGUL OPERATOR ATTESTATION I personally performed the loyola portions of the E/M visit, discussed case with re sident and concur with resident documentation of history, physical exam, assessm ent, and treatment plan unless otherwise noted. Staff name: Joan Ennis MD Date: 05/31/2019 * Rajani Gallego RN - 05/31/2019 1:40 AM MOGUL OPERATOR 01:38 text paged team to notify UO of only 15mL since 22:47. Still clear yellow , pt asymptomatic, VSS. (Tracking number [id number]) L OPERATOR * Nancy Long RT - 05/30/2019 5:45 PM MOGUL OPERATOR RT Adult Assessment Note NAME:Virginia Pace :1970 AGE: 49 y.o. ADMISSION DATE: 05/27/2019 DAYS ADMITTED: LOS: 1 day RT Treatment Plan: Protocol Plan: Procedures PAP: Place a nursing order for "IS Q1h While Awake" for any of Lung Expansion in dicators Oxygen/Humidity: O2 to keep SpO2 > 92% Monitoring: Pulse oximetry BID & PRN Additional Comments: Impressions of the patient: Pt pleasant, talking on phone. Intervention(s)/outcome(s): Oxygen titrated down from 2 lpm to 1 lpm. Orders aguila jorge for incentive spirometer. Patient education that was completed: Recommendations to the care team: Vital Signs: Pulse: 86 RR: 18 PER MINUTE SpO2: 95 % O2 Device: Cannula Liter Flow: 2 Lpm(decreased to 1) O2%: Breath Sounds: Clear (implies normal) Respiratory Effort: L OPERATOR * Elsy Lee, PT - 05/30/2019 3:32 PM MOGUL OPERATOR PHYSICAL THERAPY NOTE Name: Virginia Pace : 1970 Age: 49 y.o. Admission Date: 05/27/2019 LOS: 1 day Patient declines therapy at this time due to recently returning from dialysis an d wanting to eat. Encouraged patient to get up with nursing later this date. Pat ient verbalized understanding. Physical therapy will continue to follow and prov fide intervention as appropriate. Therapist: Elsy Lee, PT, DPT Date: 05/30/2019 L OPERATOR * Jamee Pryor, OT - 05/30/2019 10:40 AM MOGUL OPERATOR OCCUPATIONAL THERAPY Pt unavailable this am for OT; pt in dialysis. OT will f/u later this today as p t available and continue to progress as tolerated. Jamee Pryor OTR/L [id number] L OPERATOR * Pearl Griffiths, PT - 05/30/2019 9:44 AM MOGUL OPERATOR PHYSICAL THERAPY NOTE Name: Virginia Pace : 1970 Age: 49 y.o. Admission Date: 05/27/2019 LOS: 1 day PT attempted to see patient x2 this morning for skilled therapy intervention. At first attempt, RN at bedside to administer morning medications. At second attem pt, patient declines all mobility due to needing to eat breakfast prior to leavi ng the unit for dialysis. PT will continue to follow. 14:16: Patient remains off the floor in dialysis at this time. Therapist: Pearl Griffith[place] DPT [id number] Date: 05/30/2019 L OPERATOR * Dawson Sarah, DO - 05/30/2019 8:59 AM MOGUL OPERATOR Endocrinology Note Name: Virginia Pace Admission Date: 05/27/2019 Active Problems: ESRD (end stage renal disease) (HCC) Hemodialysis patient (HCC) Uncontrolled type 1 diabetes mellitus with hypoglycemia (HCC) Kidney transplanted Obesity Immunosuppression (HCC) Depression Seizure disorder (HCC) GREGORY (obstructive sleep apnea) Reason for Consult: "Type 1 DM; glucose control, post operative from kidney transplant" Assessment / Plan Virginia Pace is a 49 y.o. male with history of type 1 diabetes, HTN, depre ssion, GREGORY, seizure disorder, end-stage renal disease on hemodialysis status pos t kidney transplant 05/27/2019. Endocrinology consulted for diabetes management in the setting of high-dose steroids. Type 1 Diabetes Mellitus, uncontrolled Dx: 2001 Last HgbA1C 8.4 on 04/19/2019 CLINICAL NURSE OCCUPATIONAL MEDICINE regimen: Medtronic 630 G Hypoglycemic episodes on this regimen: Daily Hypoglycemia Follows up with Dr. Phan for diabetes management Diabetic-complications assessment: Retinopathy: yes. Peripheral neuropathy: yes Autonomic neuropathy: no Nephropathy: ESRD s/p Kidney transplant Macrovascular complications: no known CAD Risk Factor assessment Last lipid profile elevated triglycerides, low HDL On ACEi/ARB?: no On Statin?: no Pump Router Operator Pin: Medtronic model 630 G Insulin type Humalog Insulin Time (IOB): Recently changed to 6 hours Insulin Pump Settings - (Changes this admission made in bold) Time Basal Rate ISF I:C Ratio Time Basal Rate ISF I:C Ratio MN 1.1 50 17 noon 0100 1300 0200 1400 0300 1500 0400 1600 0500 1.05 1700 45 0600 1830 0.875 0700 1900 0800 2000 0900 2100 1000 0.800 2200 1100 2300 1200 MN BG targets: 120 End-stage renal disease Previously on hemodialysis Status post kidney transplant 05/27/2019 Hypertension GREGORY Seizure disorder Depression Obesity Recently started on GLP-1 for wt by endocrinology I have reviewed outside records from [facility]. They have been summarized (no rafal, labs, imaging) where appropriate. Impression / Recommendations Inc Glargine 36 daily Change Aspart ICR 6, likely change ICR 7 tomorrow MDCF Daily steroid taper starting 05/28/2019 Methylprednisolone 120 mg daily Methylprednisolone 80 mg daily Methylprednisolone 40 mg daily Prednisone 30 mg daily - Consider ICR 1:7 tomorrow Prednisone 20 mg daily Prednisone 15 mg daily Prednisone 10 mg daily Prednisone 5 mg daily Dawson Sarah DO Pager [phone] Subjective: Virginia Pace is a 49 y.o. male patient continues to be hyperglycemic fasti ng and postprandially. Denies fevers, chills, nausea, vomiting Physical Exam: Gen: A&O HEENT: EOMI Lungs: Non labored Ext: No cyanosis Skin: No rashes Vital Signs: Last Filed In 24 Hours Vital Signs: 24 Hour Range BP: 158/62 (05/30 540) Temp: 36.4 C (97.6 F) (05/30 540) Pulse: 82 (05/30 540) Respirations: 22 PER MINUTE (05/30 0142) SpO2: 94 % (05/30 540) BP: (138-172)/(54-68) Temp: [36.4 C (97.5 F)-36.9 C (98.4 F)] Pulse: [75-83] Respirations: [18 PER MINUTE-22 PER MINUTE] SpO2: [92 %-95 %] Intensity Pain Scale (Self Report): 6 (05/30/19540) Medications: No current facility-administered medications on file prior to encounter. Current Outpatient Medications on File Prior to Encounter Medication Sig Dispense Refill albuterol sulfate (PROAIR HFA) 90 mcg/actuation aerosol inhaler Inhale 2 puf fs by mouth into the lungs every 6 hours as needed for Wheezing or Shortness of Breath. Shake well before use. bumetanide (BUMEX) 2 mg tablet Take 2 mg by mouth twice daily. calcitriol (ROCALTROL) 0.5 mcg capsule Take 0.5 mcg by mouth every 48 hours. calcium acetate (PHOSLO) 667 mg capsule Take 4 capsules with meals and 2 wit h snacks docusate (COLACE) 100 mg capsule Take 100 mg by mouth twice daily as needed. fluoxetine (PROZAC) 40 mg capsule Take 40 mg by mouth daily. insulin pump -ASPART- Patients Own by SubQ Pump route Three times daily with meals and as needed. liraglutide (VICTOZA) 0.6 mg/0.1 mL (18 mg/3 mL) injection pen Inject 0.6 mg under the skin daily. omeprazole DR(+) (PRILOSEC) 40 mg capsule Take 40 mg by mouth daily before b reakfast. pregabalin (LYRICA) 75 mg capsule Take 75 mg by mouth three times daily. tamsulosin (FLOMAX) 0.4 mg capsule Take 0.4 mg by mouth daily. Do not crush, chew or open capsules. Take 30 minutes following the same meal each day. traZODone (DESYREL) 100 mg tablet Take 100 mg by mouth at bedtime daily. Lab/Radiology/Other Diagnostic Tests: 24-hour labs: Results for orders placed or performed during the hospital encounter of 05/27/19 (from the past 24 hour(s)) PTT (APTT) Collection Time: 05/29/19 11:15 AM Result Value Ref Range APTT 28.7 24.0 - 36.5 SEC POC GLUCOSE Collection Time: 05/29/19 12:29 PM Result Value Ref Range Glucose, POC 360 (H) 70 - 100 MG/DL POC GLUCOSE Collection Time: 05/29/19 2:33 PM Result Value Ref Range Glucose, POC 320 (H) 70 - 100 MG/DL LDH-LACTATE DEHYDROGENASE Collection Time: 05/29/19 5:04 PM Result Value Ref Range Lactate Dehydrogenase 239 (H) 100 - 210 U/L HAPTOGLOBIN Collection Time: 05/29/19 5:04 PM Result Value Ref Range Haptoglobin 179 16 - 200 MG/DL PTT (APTT) Collection Time: 05/29/19 5:04 PM Result Value Ref Range APTT 31.7 24.0 - 36.5 SEC POC GLUCOSE Collection Time: 05/29/19 5:58 PM Result Value Ref Range Glucose, POC 220 (H) 70 - 100 MG/DL POC GLUCOSE Collection Time: 05/29/19 10:06 PM Result Value Ref Range Glucose, POC 243 (H) 70 - 100 MG/DL PTT (APTT) Collection Time: 05/29/19 11:14 PM Result Value Ref Range APTT 28.1 24.0 - 36.5 SEC CBC Collection Time: 05/30/19 4:00 AM Result Value Ref Range White Blood Cells 4.1 (L) 4.5 - 11.0 K/UL RBC 3.06 (L) 4.4 - 5.5 M/UL Hemoglobin 10.0 (L) 13.5 - 16.5 GM/DL Hematocrit 29.1 (L) 40 - 50 % MCV 95.3 80 - 100 FL MCH 32.8 26 - 34 PG MCHC 34.4 32.0 - 36.0 G/DL RDW 14.5 11 - 15 % Platelet Count 93 (L) 150 - 400 K/UL MPV 10.2 7 - 11 FL MAGNESIUM Collection Time: 05/30/19 4:00 AM Result Value Ref Range Magnesium 1.9 1.6 - 2.6 mg/dL PHOSPHORUS Collection Time: 05/30/19 4:00 AM Result Value Ref Range Phosphorus 5.8 (H) 2.0 - 4.5 MG/DL BASIC METABOLIC PANEL Collection Time: 05/30/19 4:00 AM Result Value Ref Range Sodium 131 (L) 137 - 147 MMOL/L Potassium 3.8 3.5 - 5.1 MMOL/L Chloride 96 (L) 98 - 110 MMOL/L CO2 19 (L) 21 - 30 MMOL/L Anion Gap 16 (H) 3 - 12 Glucose 158 (H) 70 - 100 MG/DL Blood Urea Nitrogen 86 (H) 7 - 25 MG/DL Creatinine 9.50 (H) 0.4 - 1.24 MG/DL Calcium 7.1 (L) 8.5 - 10.6 MG/DL eGFR Non 6 (L) >60 mL/min eGFR 7 (L) >60 mL/min PTT (APTT) Collection Time: 05/30/19 4:00 AM Result Value Ref Range APTT 60.5 (H) 24.0 - 36.5 SEC Glucose: (!) 158 (05/30/19 0400) POC Glucose (Download): (!) 243 (05/29/192205) Pertinent radiology reviewed. L OPERATOR Associated attestation - Joan Ennis MD - 05/30/2019 4:49 PM MOGUL OPERATOR ATTESTATION I personally performed the loyola portions of the E/M visit, discussed case with re sident and concur with resident documentation of history, physical exam, assessm ent, and treatment plan unless otherwise noted. Staff name: Joan Ennis MD Date: 05/30/2019 * Mohini Gloria RN - 05/30/2019 8:26 AM MOGUL OPERATOR Transplant Phase Patient is POD 3, last BM prior to admission, Franks in place, PT/OT consulted, p atient's Pain is controlled with current analgesics. Medication(s) being used: narcotic analgesics including tramadol (Ultram) for pain control, diet renal diabeti . Patient not ready for discharge. Patient to get dialysis today. Ronaldo thompson discharge would be Tuesday. Patient's medication costs are as follows: Tacrolimus: $0 Mycophonolate: $0 Valganciclovir: $0 Patient expressed no/concern regarding costs of medications. 0530 This NC met with patient as his nurse states patient is to go to dialysis s hortly. This NC discussed that teaching can occur after patient returns to dialy [facility], patient agreeable. 1515 This NC met with patient and discussed plan for teaching, patient prefers t o complete teaching tomorrow, this NC agreed to plan. 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 Ureteral stent placed. Induction: thymo 150mg, Solumedrol 500mg. Myfortic 720mg BID Immunosuppression: Thymo 150mg 05/28, 150mg 05/29 Steroid taper Myfortic 720mg BID Prograf 5mg BID with goal of 10-15. Follow levels CORI: 287mL/24hrs UOP: 1,165mL/24hrs (Franks in place) Decrease UOP; did receive 100 IV lasix; CXR showed congestion and last check Cr was increased; discussed with transplant nephrology and will plan for HD 05/30/19 Ppx PJP: Bactrim to start on discharge CMV: D+/R- Valcyte to start on discharge Stent: Keflex while inpatient Fungal: Nystatin QID DVT: Heparin gtt 400u/hr Endo Appreciate endocrinology recommendations Uncontrolled type 1 DM, peripheral neuropathy, retinopathy BS 220-326 Hgb A1C 04/19/19: 8.4 CLINICAL NURSE OCCUPATIONAL MEDICINE: aspart insulin pump, victoza 0.6mg daily Current: MDCF achs, HDCF after meals, glargine 32u qhs FEN Diabetic/renal diet Bowel regimen: miralax and senekot Plan: Immunosuppression: Continue steroid taper and Myfortic 720mg BID. No change to P rograf. Thymo 150mg today to complete course. *DDRT: Maintain franks and CORI drain. Transition to oral pain regimen. Bowel regim en. Lidoderm patch. Continue heparin drip until d/c. ASA 81mg daily at time of d /c. Will plan for HD 05/30 due to fluid overload *Endo: Insulin per endo recs. Check vitamin d level. *FEN: Diabetic renal diet. SLIV. *Dispo: Continue floor care. Consult PT/OT. Discharge teaching. Juan Castro DO [id number] Seen and discussed with Dr Jones who directed care. Subjective: Examined at bedside Oxygen requirement increased to 6L overnight; UOP decreased and CXR showed conge stion. Was given 100 IV lasix, which caused UOP to increase; still remains SOB o n 3 L; Discussion with transplant nephro for HD on 05/30 Objective: Vitals: 05/30/19 0142 05/30/19 0155 05/30/19 0225 05/30/19 0541 BP: 159/68 158/62 Pulse: 79 77 82 Temp: 36.6 C (97.9 F) 36.4 C (97.6 F) SpO2: 94% 92% 94% 94% Weight: Height: Physical Exam GEN: NAD. Conversant. HEENT: Nonicteric bilaterally. NEURO: AOx3. PERRL. JANE. Pain controlled with INCOME TAX AUDITOR. RESP: Shallow breathing pattern. Faint crackles. 3 liter nasal canula. CARDIO: RRR. 1+ edema BLE 2+pulses. ABD: Soft, mildly distended. TTP, RLQ. Incision with maria r, small amount SS dr storm. CORI with SS drainage. : Franks with pink-tinged UOP. INTEG: Dry, warm. Labs/Radiology Pertinent Labs/radiology results reviewed. L OPERATOR Associated attestation - Shine Jones MD - 05/30/2019 3:28 PM MOGUL OPERATOR ATTESTATION I personally performed the loyola portions of the E/M visit, discussed case with re sident and concur with resident documentation of history, physical exam, assessm ent, and treatment plan unless otherwise noted. Staff name: Shine Jones MD Date: 05/30/2019 * Rajani Gallego RN - 05/30/2019 2:11 AM MOGUL OPERATOR Notified Dr. Valencia pt reporting SOA related to pain and has noticed he is taking shallow breaths. Notified MD of O2 requirement of 6L blended into CPAP a nd 5L on NC. Pt mentioned that he feels fluid overloaded and states he feels li ke he needs a dialysis treatment. Notified MD of BP 159/68 and UO 100mL for pas t 4 hours, urine is looking more yellow vs brown at the beginning of shift. Dr. Valencia at bedside, no new orders at this time. L OPERATOR * Ronit Peña RN - 05/29/2019 6:18 PM MOGUL OPERATOR 05/29/19 1751 Vitals Temp 36.4 C (97.5 F) Temperature Source Oral Pulse 79 Respirations 18 PER MINUTE SpO2 92 % SpO2 Location Right;Finger, Second (Index) $$ O2 Delivery NC O2 Liter Flow 3.5 Lpm BP 172/62 Mean NBP (Calculated) 99 MM HG BP Source Leg, Left Lower BP Method Automatic BP Patient Position Chair Spoke to Dr. Castro regarding the elevated SBP and increased O2 demand. No new o rders at this time. WCTM and report changes. L OPERATOR * Ronit Peña RN - 05/29/2019 4:40 PM MOGUL OPERATOR 05/29/19 1551 Vitals O2 Liter Flow 3 Lpm BP 159/64 Mean NBP (Calculated) 96 MM HG Paged STR re elevated BP, also discussed increased O2 demand. RN will encourage incentive spirometry and ambulation in order to titrate O2 back down to 1 LPM. N o new orders at this time. WCTM. L OPERATOR * Francesca Gill, RD - 05/29/2019 3:31 PM MOGUL OPERATOR CLINICAL NUTRITION Clinical Nutrition Follow-Up Assessment Discharge Planning Phase Name: [place] Pace : 1970 Age: 49 y.o. Admission Date: 05/27/2019 LOS: 0 days Recommendation: Continue diet renal + diabetic CHO control (60g/meal) Comments: Pt admitted for renal transplant s/p DDRT 05/27/2019. PMH of ESRD on HD, HTN, T1D M, osteomyelitis s/p L Great toe amputation, and cholecystectomy. Subjective nut rition hx in previous RD note. Pt diet is now advanced to renal + diabetic CHO c ontrol (60g/meal). Pt was able to eat 100% of a meal so far today, with complain ts of intolerance. Pt had questions on tips to lose weight; RD answered appropri ately. Pt has been educated on post transplant nutrition guidelines including food safe ty, hand hygiene, grapefruit and pomegranate avoidance. Pt and/or family were gi rubina the opportunity to ask questions. Diet has been advanced to Renal + diabetic carb control (60g/meal) and pt is tolerating diet without GI distress. Pt is ea ting adequately . Pt is planning to discharge to home and his will be prepa ring foods. Pt is ready for discharge from a nutritional perspective. Nutrition Assessment of Patient: Admit Weight: 97.2 kg(unknown source); Weight Change Since Admit: +8.2 kg BMI (Calculated): 37.53; BMI Categories Adult: Obesity Class I: 30-34.9 Pertinent Allergies/Intolerances: Reviewed Pertinent Labs: FSBS 111-326, Na 130, Phos 6.6; Pertinent Meds: reviewed; Oral Diet Order: Renal- non dialysis patient;Diabetic 9328-0473 Kcal/day (60 g c arb/meal, 30 g carb/HS snack); Current Oral Intake: Marginally Adequate;Improving Estimated Calorie Needs: 3354-7308(23-28kcal/kg of dw 70kg) Estimated Protein Needs: 56-70(0.8-1g/kg of dw 70kg) Malnutrition Assessment: Adequately nourished prior to admission; Nutrition Focused Physical Assessment: Loss of Subcutaneous Fat: No; Muscle Wasting: No; ; Edema: Yes; Severity: Mild; Location: Lower extremities, Upper extremities(non-p itting) Pressure Injury: none noted Nutrition Diagnosis: Increased nutrient needs, specify: Etiology: kcal/protein: demands for healing Signs & Symptoms: s/p DDRT 05/27 Intervention / Plan: Provided post-transplant nutrition education Monitor PO intakes, weights, labs, meds Goals: Verbalize understanding of diet Time Frame: Prior to discharge Status: Met;Ongoing(as needed) Avoid prolonged clear liquid status Time Frame: Within 48 hours Status: Met;New goal established Patient to consume >75% of meals/supplements Time Frame: Throughout stay Francesca Gill RD, LD PRN Clinical Dietitian L OPERATOR * Jamee Pryor OT - 05/29/2019 3:20 PM MOGUL OPERATOR OCCUPATIONAL THERAPY ASSESSMENT NOTE Name: Virginia Pace : 1970 Age: 49 y.o. Admission Date: 05/27/2019 LOS: 0 days S/P DDRT 05/27/19 for ESRD 2/2 DMI POD2 Right cadaveric kidney transplant on the right. Ureteral stent placed. Mobility Patient Turn/Position: Chair Progressive Mobility Level: Walk in room Distance Walked (feet): 15 ft Level of Assistance: Assist X1 Assistive Device: Walker Time Tolerated: 11-30 minutes Activity Limited By: Pain Subjective Patient Stated Goals: pt and spouse asking appropriate questions and able to oksana balize understanding with all education Precautions: Standard;Falls(multiple lines) R LE Precautions: RLE AFO: Ankle Foot Orthosis Comments: (foot drop; wear AFO) L LE Precautions: LLE AFO: Ankle Foot Orthosis Comments: (foot drop; wears AFO) Pain / Complaints: Patient agrees to participate in therapy Pain Location: Abdomen Pain Level Current: 6 Severe pain(4 seated; 6 standing) Objective Psychosocial Status: Willing and Cooperative to Participate Persons Present: Spouse;Physical Therapist;Nursing Staff Home Living Type of Home: House(3STE with one rail) Home Layout: Able to Live on Main Level w/Bedrm/Bathrm Access Bathroom Shower / Tub: Tub/Shower Unit;Walk-in Shower(has a chair) Home Equipment: Walker Prior Function Level Of [place]: Independent with ADLs and functional transfers Lives With: Spouse Other Function Comments: wears AFOs on bilateral feet outside the home; on O2 at night. currently 4 liters when up to chair Vision Current Vision: Wears Glasses All of the Time(cateracts bilaterally) ADL's Where Assessed: Edge of Bed;Chair Eating Assist: Stand By Assist Grooming Assist: Stand By Assist Toileting Assist: Total Assist Functional Transfer Assist: Moderate Assist Functional Transfer Deficits: (moderate assist sit to stand; minimal assist to c hair with w) Comment: pt agreeable to work with therapy. Pt required moderate assist of 1 for supine to sit going to the pts left side. Pt stood with minimal assist and able to walk with walker to his recliner with minimal assist of 1; assist of 2nd for lines only. Pt sat in the chair with minimal assist. Assisted with new gown and provided with a new sheet. Call button and table within reach. Nursing in room end of session. Activity Tolerance Endurance: 3/5 Tolerates 25-30 Minutes Exercise w/Multiple Rests Sitting Balance: 4/5 Moves/Returns Trunkal Midpoint 1-2 Inches in Multiple Plane s Cognition Overall Cognitive Status: WFL to Adequately Complete Self Care Tasks Safely UE AROM Overall BUE AROM WNL: Yes Grasp: Bilateral Grasp Functional for Activity(states weaker in left hand; still 4/5) Comment: (rotator repair to left shoulder) UE Strength / Tone Overall Strength / Tone: WFL Able to Perform ADL Tasks Education Persons Educated: Patient/Family Barriers To Learning: Pain;Anxiety Interventions: Repetition of Instructions;Physical Cueing Teaching Methods: Verbal Instruction;Demonstration Patient Response: Verbalized and Demo Understanding Topics: Role of OT, Goals for Therapy;DME for Home Discharge;UE Exercises;Home s afety;Energy Conservation;ADL Compensatory Techniques;Adaptive Devices for ADLs Goal Formulation: With Patient/Family Assessment Assessment: Decreased ADL Status;Decreased Endurance;Decreased Self-Care Trans;D ecreased High-Level ADLs Prognosis: Good;w/ Family Goal Formulation: Pt/family AM-PAC 6 Clicks Daily Activity Inpatient Putting on and taking off regular lower body clothes?: A Lot Bathing (Including washing, rinsing, drying): A Lot Toileting, which includes using toilet, bedpan, or urinal: Total Putting on and taking off regular upper body clothing: A Little Taking care of personal grooming such as brushing teeth: A Little Eating meals?: A Little Daily Activity Raw Score: 14 Standardized (t-scale) score: 33.39 CMS 0-100% Score: 59.67 CMS G Code Modifier: CK Plan Progress: Progressing Toward Goals OT Frequency: 5x/week OT Plan for Next Visit: work on standing adls as lines out; check LE dressing an d toileting when catheter out. progress functional adl mobility for overall stre ngth and endurance as tolerated. ADL Goals Patient Will Perform Grooming: Standing at Sink;w/ Stand By Assist Patient Will Perform LE Dressing: At Edge of Bed;In Chair;w/ Minimum Assist;w/ A daptive Equipment Patient Will Perform Toileting: w/ Stand By Assist Functional Transfer Goals Pt Will Perform All Functional Transfers: w/ Stand By Assist, w/ Assistive Devic es, w/ Good Judgment/Safety OT Discharge Recommendations Recommendation: Home with intermittent supervision/assistance Patient Currently Requires Physical Assist With: All mobility;All personal care ADLs;All home functioning ADLs;Ambulation;Bathing;In and out of house;Meal prepa ration Patient Currently Requires Equipment: Owns what is needed Therapist: LAURIE Thompson/[place] [id number] Date: 05/29/2019 L OPERATOR * Pearl Griffiths, PT - 05/29/2019 3:20 PM MOGUL OPERATOR PHYSICAL THERAPY ASSESSMENT Name: Virginia Pace : 1970 Age: 49 y.o. Admission Date: 05/27/2019 LOS: 0 days Mobility Patient Turn/Position: Chair Progressive Mobility Level: Walk in room Distance Walked (feet): 15 ft Level of Assistance: Assist X1 Assistive Device: Walker Time Tolerated: 11-30 minutes Activity Limited By: Pain Subjective Significant hospital events: History of ESRD 2/2 DMI s/p DDRT 05/27/2019. Mental / Cognitive Status: Alert;Oriented;Cooperative;Follows Commands Persons Present: Spouse;Occupational Therapist Pain: Patient complains of pain;6/10;During activity Pain Location: Scrotum;Abdomen;Post-surgical Pain Interventions: Patient agrees to participate in therapy;Patient assisted in to position of comfort Comments: 4L O2 NC - patient reports no supplemental O2 needs at baseline aside from CPAP at night. JPx1 on R. R LE Precautions: RLE AFO: Ankle Foot Orthosis L LE Precautions: LLE AFO: Ankle Foot Orthosis Ambulation Assist: Independent Mobility in Community without Device Patient Owned Equipment: Roller Walker Home Situation: Lives with Family Type of Home: House Entry Stairs: 1-2 Stairs;Rail on 1 Side(2-3 stairs) In-Home Stairs: Able to Live on One Level Comments: Patient denies history of falls. He reports extended hospitalization s everal years ago due to BG 2400. He states "I was in a coma for a month and had to learn how to walk again. That's why I have foot drop". Bed Mobility/Transfer Bed Mobility: Supine to Sit: Moderate Assist;Head of Bed Elevated;Use of Rail;As sist with B LE;Assist with Trunk Comments: Patient reclined in bedside chair at end of therapy session. DEBORAH tran activated, call light within reach and RN notified. Transfer Type: Sit to/from Stand Transfer: Assistance Level: From;Bed;Minimal Assist Transfer: Assistive Device: Roller Walker Transfers: Type Of Assistance: For Safety Considerations End Of Activity Status: Up in Chair;Nursing Notified;Instructed Patient to Reque st Assist with Mobility;Instructed Patient to Use Call Light Gait Gait Distance: 15 feet Gait: Assistance Level: Minimal Assist;Management of Lines Gait: Assistive Device: Roller Walker Gait: Descriptors: Decreased foot clearance RLE;Decreased foot clearance LLE;Dec reased heel strike RLE;Decreased heel strike LLE;Forward trunk flexion;Pace: Slo w;No balance loss;Decreased step length(bilateral foot drop) Activity Limited By: Complaint of Pain;Complaint of Fatigue Education Persons Educated: Patient/Family Patient Barriers To Learning: Pain Teaching Methods: Verbal Instruction Patient Response: Verbalized Understanding;Return Demonstration Topics: Plan/Goals of PT Interventions;Use of Assistive Device/Orthosis;Mobility Progression;Safety Awareness;Up with Assist Only;Importance of Increasing Activ ity;Recommend Continued Therapy;Therapy Schedule Assessment/Progress Assessment/Progress: Should Improve w/ Continued PT AM-PAC 6 Clicks Basic Mobility Inpatient Turning from your back to your side while in a flat bed without using bed rails: A Little Moving from lying on your back to sitting on the side of a flatbed without using bedrails : A Lot Moving to and from a bed to a chair (including a wheelchair): A Little Standing up from a chair using your arms (e.g. wheelchair, or bedside chair): A Little To walk in hospital room: A Little Climbing 3-5 steps with a railing: A Lot Raw Score: 16 Standardized (T-scale) Score: 38.32 Basic Mobility CMS 0-100%: 47.12 CMS G Code Modifier for Basic Mobility: CK Goals Goal Formulation: With Patient/Family Time For Goal Achievement: 5 days Patient Will Go Supine To/From Sit: w/ Stand By Assist Patient Will Transfer Sit to Stand: w/ Stand By Assist Patient Will Ambulate: 151-200 Feet, w/ Walker, w/ Stand By Assist Patient Will Go Up / Down Stairs: 1-2 Stairs, w/ Minimal Assist(2-3 stairs) Plan Treatment Interventions: Mobility Training Plan Frequency: 5 Days per Week PT Plan for Next Visit: Progress ambulation to tolerance. PT Discharge Recommendations Recommendation: Home with consistent supervision/assistance(anticipated) Recommendation for Therapy Post Discharge: Home health Patient Currently Requires Equipment: Owns what is needed Comments: Patient's spouse states "My job is to take care of him". Therapist Pearl Griffiths, [place] DPT [id number] Date 05/29/2019 L OPERATOR * Ronit Peña RN - 05/29/2019 2:46 PM MOGUL OPERATOR Results for VIRGINIA PACE ( ) as of 05/29/2019 14:34 Ref. Range 05/29/2019 12:29 05/29/2019 14:33 Glucose, POC Latest Ref Range: 70 - 100 MG/DL 360 (H) 320 (H) Administered mealtime and sliding scale Novolog totaling 11 units then rechecked 2 hours later, per protocol. Paged endocrine (trackin). Dr. Sarah to place orders L OPERATOR * Addie Henderson APRN - 05/29/2019 1:24 PM MOGUL OPERATOR Transplant Surgery [employer] Progress Note Patient Name: Virginia Pace Admit Date: 05/27/2019 Assessment: Active Problems: ESRD (end stage renal disease) (HCC) Hemodialysis patient (HCC) Uncontrolled type 1 diabetes mellitus with hypoglycemia (HCC) Kidney transplanted Obesity Immunosuppression (HCC) Depression Seizure disorder (HCC) GREGORY (obstructive sleep apnea) S/P DDRT 05/27/19 for ESRD 2/2 DMI POD2 Right cadaveric kidney transplant on the right. Ureteral stent placed. Induction: thymo 150mg, Solumedrol 500mg. Myfortic 720mg BID Immunosuppression: Thymo 150mg 05/28, 150mg 05/29 Steroid taper Myfortic 720mg BID Prograf 5mg BID with goal of 10-15. Follow levels CORI: 240mL/24hrs Creatinine: 8.21 UOP: 557mL/24hrs (Franks in place) Ppx PJP: Bactrim to start on discharge CMV: D+/R- Valcyte to start on discharge Stent: Keflex while inpatient Fungal: Nystatin QID DVT: Heparin gtt 400u/hr Endo Uncontrolled type 1 DM, peripheral neuropathy, retinopathy BS 111-326 Hgb A1C 04/19/19: 8.4 CLINICAL NURSE OCCUPATIONAL MEDICINE: aspart insulin pump, victoza 0.6mg daily Current: MDCF achs, HDCF after meals, glargine 32u qhs FEN Regular diet IVF: 0.45+10meq sodium bicarb @100ml/hr Bowel regimen not yet started Plan: Immunosuppression: Continue steroid taper and Myfortic 720mg BID. No change to P rograf. Thymo 150mg today to complete course. *DDRT: Maintain franks and CORI drain. Transition to oral pain regimen. Bowel regim en. Lidoderm patch. Continue heparin drip until d/c. ASA 81mg daily at time of d /c. *Endo: Insulin per endo recs. Check vitamin d level. *FEN: Diabetic renal diet. SLIV. *Dispo: Continue floor care. Consult PT/OT. Discharge teaching. Seen and discussed with Dr Jones who directed care. Subjective: Virginia Pace is a 49 y.o. patient. Feels fine overall just blo ated and full of fluid. Reports slight shortness of breath. Pain controlled with INCOME TAX AUDITOR. Denies N/V or chest pain. Scrotal pain when standing. Objective: Vitals: 05/29/19 0511 05/29/19 1023 05/29/19 1305 05/29/19 1318 BP: 156/76 148/62 Pulse: 79 81 Temp: 36.3 C (97.4 F) 36.4 C (97.6 F) 36.4 C (97.6 F) SpO2: 94% 94% 95% Weight: 105.4 kg (232 lb 6.4 oz) Height: 167.6 cm (65.98") Physical Exam GEN: NAD. Conversant. HEENT: Nonicteric bilaterally. NEURO: AOx3. PERRL. JANE. Pain controlled with INCOME TAX AUDITOR. RESP: Shallow breathing pattern. Faint crackles BLL L>R. 1 liter nasal canula. CARDIO: RRR. 2+ edema BLE, 1+ BUE edema. 2+pulses. ABD: Soft, mildly distended. TTP, RLQ. Incision with maria r, small amount SS dr storm. CORI with SS drainage. : Franks with pink-tinged UOP. INTEG: Dry, warm. Labs/Radiology Pertinent Labs/radiology results reviewed. Addie Henderson, ESTHER Pager [phone] L OPERATOR * Rajani Gallego RN - 05/28/2019 7:44 PM MOGUL OPERATOR 19:44 text paged team to notify of BP 154/53. (Tracking number [id number]) 19:52 Dr. Valencia at bedside, recheck BP 156/65. ok with this BP reading . 23:[address] Valencia ok to remove capnography for pt to wear CPAP. L OPERATOR * Natalie Dunham, JAIME - 05/28/2019 12:54 PM MOGUL OPERATOR This RN spoke with Dr. Nielsen about patient's minimal urine output. STR to be p lacing order for STAT kidney ultrasound. Will continue to monitor. L OPERATOR * Juan Castro DO - 05/28/2019 6:10 AM MOGUL OPERATOR Daily Progress Note Today's Date: 05/28/2019 Name: Virginia Pace Admission Date: 05/27/2019 (LOS: 0 days) Assessment: 49M HTN Type 1 DM, ESRD on HD, s/p DDRT (05/27) Active Problems: ESRD (end stage renal disease) (HCC) Plan: Fentanyl INCOME TAX AUDITOR CLD, ADAT Continue renal replacement fluid protocol Maintain franks MMF, tacro, steroid taper Resume CLINICAL NURSE OCCUPATIONAL MEDICINE medications Transplant nephrology consulted and following PT/OT, encourage OOB and ambulation. Continue hep gtt Continue insulin gtt, endocrinology following Dispo: Continue floor care. MOHINI ARAUJO MD [id number] Discussed plan of care with staff surgeon, Dr. Jones, who directed plan of car e. S: No acute events overnight. Pain well controlled. Denies nausea or emesis. No bow el function. Has not ambulated yet. O: Vitals: 05/28/19 0000 05/28/19 0100 05/28/19 0200 05/28/19 0400 BP: 158/72 133/56 145/51 145/51 Pulse: 91 91 86 Temp: 36.3 C (97.4 F) 36.7 C (98 F) 36.4 C (97.5 F) 36.4 C (97.5 F) SpO2: 97% 96% 97% 97% Weight: Height: Intake/Output Summary (Last 24 hours) at 05/28/2019 0611 Last data filed at 05/28/2019 0400 Gross per 24 hour Intake 7527.55 ml Output 1603 ml Net 5924.55 ml GEN: NAD. Awake in bed. HEENT: Normocephalic, atraumatic, NEURO: AOx3. Grossly intact. RESP: RA. Normal effort. Non-labored breathing CARDIO: Regular rhythm and rate. ABD: Soft, ND. Mild jame-incisional tenderness noted; incision with dressing aguila ce, mild s/s drainage. INTEG: No jaundice or lesions. Serial Hematology Labs: Recent Labs 05/27/19 1106 05/27/19 1638 05/27/19 2125 05/27/19 2310 05/28/19 0410 HGB 13.6 10.7* 11.0* -- 10.6* HCT 40.1 31.4* 31.8* -- 30.7* WBC 6.6 4.9 10.0 -- 10.0 PLTCT 161 91* 112* -- 118* INR 1.0 -- -- -- -- PTT 31.5 48.1* -- 31.5 31.8 L OPERATOR Associated attestation - Shine Jones MD - 05/28/2019 11:24 AM MOGUL OPERATOR ATTESTATION I personally performed the [place] portions of the E/M visit, discussed case with re sident and concur with resident documentation of history, physical exam, assessm ent, and treatment plan unless otherwise noted. POD #1 DD kidney transplant Doing well, good U/O Cr stable Staff name: Shine Jones MD Date: 05/28/2019 * Natalie Nunes RN - 05/28/2019 4:17 AM MOGUL OPERATOR 0400: MD notified UOP has been trending down. Last UOP over 2hrs = 40mL. No new orders at this time. MD to place orders for morning labs 0600: Pt UOP down to 30mL over past 2 hours. BP 144/54; HR 84. notified via t ext page. Tracking #[id number] L OPERATOR * Natalie Nunes RN - 05/28/2019 12:45 AM MOGUL OPERATOR Per JAIME REYES okay to turn off capnography monitoring while patient is sleeping wit h CPAP. RN will resume monitoring as soon as CPAP is off. L OPERATOR * Marium Bauer RT - 05/27/2019 9:55 PM MOGUL OPERATOR RT Adult Assessment Note NAME:Virginia Pace :1970 AGE: 49 y.o. ADMISSION DATE: 05/27/2019 DAYS ADMITTED: LOS: 0 days RT Treatment Plan: Protocol Plan: Procedures Oxygen/Humidity: O2 to keep SpO2 > 92% Monitoring: Pulse oximetry BID & PRN Additional Comments: Impressions of the patient: pt wears 1 lpm bled into CPAP at home, GREGORY hx, on O2 post-op Intervention(s)/outcome(s): CPAP QHS, monitor O2 Vital Signs: Pulse: 92 RR: 16 PER MINUTE SpO2: 97 % O2 Device: Cannula Liter Flow: 1.5 Lpm Breath Sounds: Clear (implies normal) Respiratory Effort: Non-Labored L OPERATOR * Natalie Nunes RN - 05/27/2019 9:38 PM MOGUL OPERATOR 2000: BP 141/41; HR 93; UOP 105; IVF @105 2100: BP 150/51; HR 93; UOP 70; IVF @ 70 Labs sent at this time per MR request. MD notified via text page. Tracking #[id number] L OPERATOR * Loli Fink RN - 05/27/2019 9:33 PM MOGUL OPERATOR IVT consulted for PIV placement in lower extremity for lab draws. Explained mika t there is no guarantee for a PIV to continue with ability to draw labs. Explai millie accucath placed in upper arm placed to help with multiple lab draw. Patient with limited access for PIVs. MDs insistent on lower extremity IV at this time. Labs drawn, labeled at bedside, given to RN. L OPERATOR * Ronit Garcia RN - 05/27/2019 7:59 PM MOGUL OPERATOR 1838 Patient arrived to room # 6406 via cart accompanied by RNs. Patient transfe rred to the bed with assistance. Bedside safety checks completed. Initial patien t assessment completed. Refer to flowsheet for details. Admission skin assessment completed with: Mary Anne Iverson Pressure injury present on arrival?: no 1. Head/Face/Neck: no 2. Trunk/Back: no 3. Upper Extremities: no 4. Lower Extremities: no 5. Pelvic/Coccyx: no 6. Assessed for device associated injury? Yes with none present 7. Malnutrition Screening Tool (Nursing Nutrition Assessment) Completed? yes L OPERATOR * Ronit Garcia RN - 05/27/2019 7:47 PM MOGUL OPERATOR 1947 Text page sent, tracking number [id number], reporting patient's request for home Lyrica dose. Awaiting further orders. Will continue to monitor and report changes. L OPERATOR * Yaw Morrison MD - 05/27/2019 7:01 PM MOGUL OPERATOR I spoke to the patient primary nurse Ronit This patient has poor vision For this individual it is best to stop the pump during the hospitalization. Then we can adjust the insulin with the insulin drip and eventually with subcu. He will have tapering steroids will complicate his care. We will see tomorrow L OPERATOR * Halina Waggoner RN - 05/27/2019 6:07 PM MOGUL OPERATOR At 1638 Dr Nielsen bedside and reported to not draw a BMp just the CBC and PTT. At 1745 Dr Graf phoned back to a paged from this nurse and this nurse reported th e low BP stating at [address] Graf reported that the pressures are fine. At 1748 Dr Amin with Endocrin called asking if pt could manage his insulin p ump, pt reported his vision is bad and can, and Dr Amin reported that i nsulin drip would be started on the floor. L OPERATOR * Robert Harris MD - 05/27/2019 5:52 PM MOGUL OPERATOR Endocrinology Progress Evaluated patient's chart and [facility] Endocrinology notes. Patient brittl e Type I diabetic w/ ESRD s/p transplant 05/27/2019. On insulin pump though has d aily hypoglycemic events with it. Per patient's nurse, his manages his pump as his vision is poor. With initiation of steroids and his brittle status, caitlin ent would benefit from insulin gtt until basal bolus or new pump settings can be evaluated. Placed orders for gtt. Discussed plan of care with staff, Dr. Martinez. Full consult note to follow on 05/28/19. Robert Harris MD Internal Medicine PGY-3 Available on Voalte and Cureatr. Pager [phone] L OPERATOR documented in this encounter H&P Notes * Melecio Nielsen MD - 05/27/2019 11:26 AM MOGUL OPERATOR [facility] Transplant Surgery H&P 05/27/2019 Patient: Virginia Pace Admission Date: (Not on file), LOS: 0 days Date of Service: May 27, 2019 Attending Surgeon: Melecio Nielsen MD H&P Performed by: Jose Graf MD ASSESSMENT: 49 y.o. male with HTN, DM with ESRD on home HD (5x weekly) who prese nts for renal transplant PLAN: - To OR for procedure - Consent obtained and place in chart - NPO Discussed with staff surgeon, Dr. Nielsen, who directed plan of care __ HPI: Virginia Pace is a 49 y.o. male with HTN, DM with ESRD on home HD (5x weekly) who presents for renal transplant. Patient reports he developed end-sta ge renal disease from diabetes. He started on dialysis 3 years ago. Was at one time undergoing peritoneal dialysis but developed peritonitis and this was remov ed. He was started on hemodialysis which he currently undergoes at home 5 times weekly. Reports that he does still make urine approximately 100-200 mils per d ay. Denies any recent illnesses or sicknesses including nausea/vomiting, fevers , chills, diarrhea or constipation. He presents today for renal transplant and does have any questions at this time. PMHx: DM, HTN, ESRD Surgical Hx: Osteomyelitis of L great toe requiring amputatoin; cholecystectomy; hernia surgery; R knee surgery Medications: No current facility-administered medications on file prior to encounter. Current Outpatient Medications on File Prior to Encounter Medication Sig Dispense Refill albuterol sulfate (PROAIR HFA) 90 mcg/actuation aerosol inhaler Inhale 2 puf fs by mouth into the lungs every 6 hours as needed for Wheezing or Shortness of Breath. Shake well before use. bumetanide (BUMEX) 2 mg tablet Take 2 mg by mouth twice daily. calcitriol (ROCALTROL) 0.5 mcg capsule Take 0.5 mcg by mouth every 48 hours. calcium acetate (PHOSLO) 667 mg capsule Take 4 capsules with meals and 2 wit h snacks docusate (COLACE) 100 mg capsule Take 100 mg by mouth twice daily as needed. fluoxetine (PROZAC) 40 mg capsule Take 40 mg by mouth daily. insulin pump -ASPART- Patients Own by SubQ Pump route Three times daily with meals and as needed. omeprazole DR(+) (PRILOSEC) 40 mg capsule Take 40 mg by mouth daily before b reakfast. pregabalin (LYRICA) 75 mg capsule Take 75 mg by mouth three times daily. tamsulosin (FLOMAX) 0.4 mg capsule Take 0.4 mg by mouth daily. Do not crush, chew or open capsules. Take 30 minutes following the same meal each day. traZODone (DESYREL) 100 mg tablet Take 100 mg by mouth at bedtime daily. Allergies: Penicillins and Codeine Social History Socioeconomic History Marital status: Spouse [...] file Social History Narrative Not on file Family Hx: denies family hx Vitals: Vital Signs: Last Filed In 24 Hours Vital Signs: 24 Hour Range BP: 103/61 (05/27 1051) Temp: 36.5 C (97.7 F) (05/27 1051) Pulse: 87 (05/27 1051) Respirations: 19 PER MINUTE (05/27 105) SpO2: 96 % (05/27 1051) Height: 167.6 cm (66") (05/27 1051) BP: (103)/(61) Temp: [36.5 C (97.7 F)] Pulse: [87] Respirations: [19 PER MINUTE] SpO2: [96 %] Intake/Output: No intake or output data in the 24 hours ending 05/27/19 1126 Physical Exam: GEN: alert and oriented no acute distress HEENT: NCAT, EOMI CARDIO: Regular rate, regular rhythm PULM: normal work of breathing, no stridor, on RA ABD: soft, NTND EXT: no c/c/e, warm, well-perfused NEURO: motor and sensation grossly intact INTEG: warm, dry PSYCH: cooperative, appropriate mood and affect ROS: Review of Systems Constitutional: Negative. HENT: Negative. Eyes: Negative. Respiratory: Negative. Cardiovascular: Negative. Gastrointestinal: Negative. Endocrine: Negative. Genitourinary: Negative. Musculoskeletal: Negative. Skin: Negative. Allergic/Immunologic: Negative. Neurological: Negative. Hematological: Negative. Psychiatric/Behavioral: Negative. Lab/Radiology/Other Diagnostic Tests: No results for input(s): HGB, HCT, WBC, PLTCT, NA, K, CL, CO2, BUN, CR, GLU, CA, MG, PO4, ALBUMIN, TOTPROT, TOTBILI, AST, ALT, ALKPHOS, LIZZ, LIPASE, PREALB, INR, PT, PTT in the last 72 hours. POC Glucose (Download): 77 (05/27/19 105) Jose Graf MD Team Pager: # [phone] I personally performed the loyola portions of the E/M visit, discussed case with re sident and concur with resident documentation of history, physical exam, assessm ent, and treatment plan unless otherwise noted. Melecio Nielsen MD L OPERATOR documented in this encounter Procedure Notes * Segundo Mahajan RN - 05/30/2019 12:55 PM MOGUL OPERATOR Associated Order(s): HEMODIALYSIS DATE; HEMODIALYSIS INPATIENT Report received from Primary Care RN, thru Elena DICKEY RN at 1030am. Pt arrived via bed from [facility] and attached to nbp, oxcemitry, and cardiac monit oring. Pt ID Verified with Elena SANDOVAL. Consent signed. Labs and Orders Reviewed. Access Used: [email or web address] AVF. Both A & V cannulation sites accessed on 1st attempt without difficulty. Access needles secured and dressed with paper tape. See Hemodialysis Orders below: TX START TIME: 1025am. UF Profile used: 11. Bath used: 3K. Lines and access secure In view and intact. Face uncovered and in view. Dr. Palm at bedside at around 1100am. TX END TIME: 1430. Net UF: 3048ml. End Weight: 103.6kgs by bed scale. Post tx, blood rinsed back to Pt. Pt tolerated the treatment well. Pt without complaint post treatment. [place] pulled one at at time, hemostasis achieved in less than 5 min on each ca nnulation site. Access sites dressed with gauze and paper tape. Report given to Primary Care Leah SANDOVAL at around 1500. Pt placed in transportation at 1430 and left unit at 1450 via bed. See Dialysis Flowsheet and MAR for details. L OPERATOR documented in this encounter Consult Notes * Verónica Palm MD - 06/01/2019 2:16 PM MOGUL OPERATOR 06/01/19 Transplant Consult Progress Note: [place] Pace [id number] 1970 Transplant Synopsis: Date: 05/27/2019 Donor: DCD from a female donor in early 50's KDPI: 60% CPRA: 0% DSA: none Induction: Thymo for steroid avoidance CMV status: D+/R- Post-op course: DGF Ureteral stent removal: TBD Baseline Scr: TBD Clinical trial: none Referring dean of education: S: Doing well and ready to go home; no event overnite Patient Active Problem List Diagnosis Date Noted Vitamin D deficiency 05/31/2019 Hemodialysis patient ([facility]) 05/28/2019 Uncontrolled type 1 diabetes mellitus with hypoglycemia ([facility]) 05/28/2019 Kidney transplanted 05/28/2019 Obesity 05/28/2019 Immunosuppression ([facility]) 05/28/2019 Depression 05/28/2019 Seizure disorder ([facility]) 05/28/2019 GREGORY (obstructive sleep apnea) 05/28/2019 ESRD (end stage renal disease) ([facility]) 12/22/2016 Review of Systems Constitutional: Negative. HENT: Negative. Eyes: Negative. Respiratory: Negative. Cardiovascular: Negative. Gastrointestinal: Negative. Genitourinary: Negative. Musculoskeletal: Negative. Skin: Negative. Neurological: Negative. Endo/Heme/Allergies: Negative. Psychiatric/Behavioral: Negative. MEDS: cephalexin (KEFLEX) capsule 500 mg, 500 mg, Oral, Q12H* ergocalciferol (VITAMIN D-2) capsule 50,000 Units, 50,000 Units, Oral, Q7 Days fluoxetine (PROZAC) capsule 40 mg, 40 mg, Oral, QDAY insulin pump -ASPART- Patients Own, , SubQ Pump, TID w/ Meals & PRN lidocaine (LIDODERM) 5 % topical patch 1 patch, 1 patch, Topical, QDAY And Verification of Patch Placement and Integrity - Lidocaine 5%, , Transdermal, BID metoprolol tartrate (LOPRESSOR) tablet 12.5 mg, 12.5 mg, Oral, BID mycophenolate DR (MYFORTIC) tablet 720 mg, 720 mg, Oral, BID nystatin (MYCOSTATIN) oral suspension 500,000 Units, 500,000 Units, Swish & Swallow, QID pantoprazole DR (PROTONIX) tablet 40 mg, 40 mg, Oral, QDAY(21) polyethylene glycol 3350 (MIRALAX) packet 17 g, 1 packet, Oral, QDAY [START ON 06/03/2019] prednisone (DELTASONE) tablet 10 mg, 10 mg, Oral, QDAY [START ON 06/02/2019] prednisone (DELTASONE) tablet 15 mg, 15 mg, Oral, QDAY [START ON 06/04/2019] prednisone (DELTASONE) tablet 5 mg, 5 mg, Oral, QDAY(12) pregabalin (LYRICA) capsule 75 mg, 75 mg, Oral, TID senna/docusate (SENOKOT-S) tablet 2 tablet, 2 tablet, Oral, BID tacrolimus (PROGRAF) capsule 5 mg, 5 mg, Oral, BID(6-18) tamsulosin (FLOMAX) capsule 0.4 mg, 0.4 mg, Oral, QDAY traZODone (DESYREL) tablet 100 mg, 100 mg, Oral, QHS Allergies: Allergies Allergen Reactions Penicillins ANAPHYLAXIS Codeine VOMITING Physical Exam: BP 137/64 (BP Source: Arm, Right Upper) | Pulse 75 | Temp 36.4 C (97.6 F) | Ht 167.6 cm (65.98") Comment: previously reported | Wt 101.7 kg (224 lb 3.2 oz) | SpO2 95% | BMI 36.20 kg/m Intake/Output Summary (Last 24 hours) at 06/01/2019 1416 Last data filed at 06/01/2019 1100 Gross per 24 hour Intake 1040 ml Output 2000 ml Net -960 ml General: in NAD Skin: warm, dry; multiple tattoos on body and limbs HEENT: EOMI, bearded Neck: CV: RRR S1/S2, no murmurs; no rub Lungs: clear posteriorly Abd: obese; RLQ allograft Back: no sacral edema Ext: no edema; LUE AV fistula with bruit and thrill Neuro: nonfocal; no asterixis Psych: affect appropriate Laboratory studies: CBC with Diff: CBC with Diff Latest Ref Rng & Units 06/01/2019 05/31/2019 WBC 4.5 - 11.0 K/UL 4.4(L) 3.4(L) RBC 4.4 - 5.5 M/UL 3.06(L) 2.93(L) HGB 13.5 - 16.5 GM/DL 9.9(L) 9.6(L) HCT 40 - 50 % 28.9(L) 27.3(L) MCV 80 - 100 FL 94.2 93.1 MCH 26 - 34 PG 32.2 32.8 MCHC 32.0 - 36.0 G/DL 34.2 35.2 RDW 11 - 15 % 14.4 14.7 PLT 150 - 400 K/UL 100(L) 135(L) MPV 7 - 11 FL 9.8 9.7 NEUT 41 - 77 % - - ANC 1.8 - 7.0 K/UL - - LYMA 24 - 44 % - - ALYM 1.0 - 4.8 K/UL - - ANGELA 4 - 12 % - - AMONO 0 - 0.80 K/UL - - EOSA 0 - 5 % - - AEOS 0 - 0.45 K/UL - - BASA 0 - 2 % - - ABAS 0 - 0.20 K/UL - - CMP: CMP Latest Ref Rng & Units 06/01/2019 05/31/2019 NA 137 - 147 MMOL/L 138 138 K 3.5 - 5.1 MMOL/L 3.8 4.1 CL 98 - 110 MMOL/L 99 100 CO2 21 - 30 MMOL/L 26 27 GAP 3 - 12 13(H) 11 BUN 7 - 25 MG/DL 63(H) 50(H) CR 0.4 - 1.24 MG/DL 6.80(H) 5.98(H) GLUX 70 - 100 MG/DL 216(H) 121(H) CA 8.5 - 10.6 MG/DL 8.3(L) 8.0(L) TP 6.0 - 8.0 G/DL - - ALB 3.5 - 5.0 G/DL - - ALKP 25 - 110 U/L - - ALT 7 - 56 U/L - - TBILI 0.3 - 1.2 MG/DL - - GFR >60 mL/min 9(L) 10(L) GFRAA >60 mL/min 11(L) 12(L) Other Common Labs: Other Common Labs Latest Ref Rng & Units 06/01/2019 05/31/2019 PO4 2.0 - 4.5 MG/DL 5.3(H) 5.0(H) MG 1.6 - 2.6 mg/dL 2.1 2.2 VITD 30 - 80 NG/ML - - UPRO NEG-NEG - - HBA1C 4.0 - 6.0 % - - PSAS <4.0 NG/ML - - Tacrolimus 2 - 15 NG/ML 11.8 16.2(HH) Imaging: Results for orders placed during the [...] Jose Gill D.O. on 05/30/2019 8:32 AM. Renal USN (05/28/2019): The right lower quadrant renal transplant is normal in size, measuring 10.0 x 4.4 cm, previously 9.8 x 4.7 cm. There is no hydronephrosis. No peritransplant fluid collections are identified. Intrarenal resistive indices are normal, ranging 0.68-0.71, previously 0.58-0.74. Systolic acceleration is normal. The main renal artery is patent without visible stenosis. Peak systolic velocity of the main renal artery is 91 cm/sec, previously 165 cm/s. The main renal vein is patent. The external iliac artery and vein are patent with normal direction of blood flow. Peak systolic velocity of the external iliac artery is 104 cm/sec, previously 149 cm/s. The urinary bladder is partially decompressed with partially visualized ureteral stent. There is an additional questionable small amount of debris in the urinary bladder lumen. Assessment and Plan: Mr. Pace is a 49 y.o.white male with ESRD due to type 1 diabetes s/p DDRT on c/b DGF. 1. Immunosuppression: on tacro/MPA/prednisone taper. Aiming for tacrolimus level between 10-15 ng/ml by MEIA for first 3 months of transplant; tacro level today on target; Keep MPA as is and will taper off prednisone. 2. Renal function: Scr slightly worse but nonoliguric; USN unremarkable; no tamiko cation for HD today; on Flomax; suspect renal function improving despite Scr 3. HTN: better on metoprolol 12.5 mg po bid 4. ID: will need 6 months of Valcyte and 12 months of Bactrim for CMV and PCP/UT I prophylaxis respectively. 5. Anemia: stable 6. DM: on insulin pump Disposition: home today; scheduled for dialysis at 11 am on Tuesday; prior to elmer lysis will have labs drawn; if Scr better, will cancel dialysis; f/u in clinic o n Tuesday with Dr. Christy Palm MD Pager [phone] L OPERATOR * Verónica Palm MD - 05/31/2019 2:35 PM MOGUL OPERATOR 05/31/19 Transplant Consult Progress Note: [place] Pace [id number] 1970 Transplant Synopsis: Date: 05/27/2019 Donor: DCD from a female donor in early KDPI: 60% CPRA: 0% DSA: none Induction: Thymo for steroid avoidance CMV status: D+/R- Post-op course: DGF Ureteral stent removal: TBD Baseline Scr: TBD Clinical trial: none Referring dean of education: S: feeling much better this morning; no SOB; hasn't walked the halls yet; remov ed 3.5 liters on dialysis yesterday; off oxygen Patient Active Problem List Diagnosis Date Noted Vitamin D deficiency 05/31/2019 Hemodialysis patient ([facility]) 05/28/2019 Uncontrolled type 1 diabetes mellitus with hypoglycemia ([facility]) 05/28/2019 Kidney transplanted 05/28/2019 Obesity 05/28/2019 Immunosuppression ([facility]) 05/28/2019 Depression 05/28/2019 Seizure disorder ([facility]) 05/28/2019 GREGORY (obstructive sleep apnea) 05/28/2019 ESRD (end stage renal disease) ([facility]) 12/22/2016 Review of Systems Constitutional: Negative. HENT: Negative. Eyes: Negative. Respiratory: Negative. Cardiovascular: Negative. Gastrointestinal: Negative. Genitourinary: Negative. Musculoskeletal: Negative. Skin: Negative. Neurological: Negative. Endo/Heme/Allergies: Negative. Psychiatric/Behavioral: Negative. MEDS: cephalexin (KEFLEX) capsule 500 mg, 500 mg, Oral, Q12H* [START ON 06/01/2019] ergocalciferol (VITAMIN D-2) capsule 50,000 Units, 50,000 U nits, Oral, Q7 Days fluoxetine (PROZAC) capsule 40 mg, 40 mg, Oral, QDAY insulin aspart U-100 (NOVOLOG FLEXPEN) injection PEN 0-24 Units, 0-24 Units, Sub cutaneous, ACHS (22) insulin aspart U-100 (NOVOLOG FLEXPEN) injection PEN 1-25 Units, 1-25 Units, Sub cutaneous, TID w/ meals insulin glargine (LANTUS SOLOSTAR) injection PEN 36 Units, 36 Units, Subcutaneou s, QDAY(12) lidocaine (LIDODERM) 5 % topical patch 1 patch, 1 patch, Topical, QDAY And Verification of Patch Placement and Integrity - Lidocaine 5%, , Transdermal, BID mycophenolate DR (MYFORTIC) tablet 720 mg, 720 mg, Oral, BID nystatin (MYCOSTATIN) oral suspension 500,000 Units, 500,000 Units, Swish & Swallow, QID pantoprazole DR (PROTONIX) tablet 40 mg, 40 mg, Oral, QDAY(21) polyethylene glycol 3350 (MIRALAX) packet 17 g, 1 packet, Oral, QDAY [START ON 06/01/2019] prednisone (DELTASONE) tablet 20 mg, 20 mg, Oral, QDAY Followed by [START ON 06/02/2019] prednisone (DELTASONE) tablet 15 mg, 15 mg, Oral, QDAY Followed by [START ON 06/03/2019] prednisone (DELTASONE) tablet 10 mg, 10 mg, Oral, QDAY Followed by [START ON 06/04/2019] prednisone (DELTASONE) tablet 5 mg, 5 mg, Oral, QDAY(12) pregabalin (LYRICA) capsule 75 mg, 75 mg, Oral, TID senna/docusate (SENOKOT-S) tablet 2 tablet, 2 tablet, Oral, BID tacrolimus (PROGRAF) capsule 5 mg, 5 mg, Oral, BID(6-18) tamsulosin (FLOMAX) capsule 0.4 mg, 0.4 mg, Oral, QDAY traZODone (DESYREL) tablet 100 mg, 100 mg, Oral, QHS Allergies: Allergies Allergen Reactions Penicillins ANAPHYLAXIS Codeine VOMITING Physical Exam: BP 152/59 (BP Source: Leg, Left Lower) | Pulse 86 | Temp 36.3 C (97.4 F) | Ht 167.6 cm (65.98") Comment: previously reported | Wt 102.8 kg (226 lb 9.6 o z) | SpO2 95% | BMI 36.59 kg/m Intake/Output Summary (Last 24 hours) at 05/31/2019 1436 Last data filed at 05/31/2019 1339 Gross per 24 hour Intake 824 ml Output 1223 ml Net -399 ml General: in NAD Skin: warm, dry; multiple tattoos on body and limbs HEENT: EOMI, bearded Neck: CV: RRR S1/S2, no murmurs Lungs: clear anteriorly Abd: obese; RLQ allograft dry with maria r; no exudates; mild erythema around st aples Ext: no edema; bilateral SCD's; LUE AV fistula with bruit and thrill Neuro: nonfocal Psych: affect appropriate Laboratory studies: CBC with Diff: CBC with Diff Latest Ref Rng & Units 05/31/2019 05/30/2019 WBC 4.5 - 11.0 K/UL 3.4(L) 4.1(L) RBC 4.4 - 5.5 M/UL 2.93(L) 3.06(L) HGB 13.5 - 16.5 GM/DL 9.6(L) 10.0(L) HCT 40 - 50 % 27.3(L) 29.1(L) MCV 80 - 100 FL 93.1 95.3 MCH 26 - 34 PG 32.8 32.8 MCHC 32.0 - 36.0 G/DL 35.2 34.4 RDW 11 - 15 % 14.7 14.5 PLT 150 - 400 K/UL 135(L) 93(L) MPV 7 - 11 FL 9.7 10.2 NEUT 41 - 77 % - - ANC 1.8 - 7.0 K/UL - - LYMA 24 - 44 % - - ALYM 1.0 - 4.8 K/UL - - ANGELA 4 - 12 % - - AMONO 0 - 0.80 K/UL - - EOSA 0 - 5 % - - AEOS 0 - 0.45 K/UL - - BASA 0 - 2 % - - ABAS 0 - 0.20 K/UL - - CMP: CMP Latest Ref Rng & Units 05/31/2019 05/30/2019 NA 137 - 147 MMOL/L 138 131(L) K 3.5 - 5.1 MMOL/L 4.1 3.8 CL 98 - 110 MMOL/L 100 96(L) CO2 21 - 30 MMOL/L 27 19(L) GAP 3 - 12 11 16(H) BUN 7 - 25 MG/DL 50(H) 86(H) CR 0.4 - 1.24 MG/DL 5.98(H) 9.50(H) GLUX 70 - 100 MG/DL 121(H) 158(H) CA 8.5 - 10.6 MG/DL 8.0(L) 7.1(L) TP 6.0 - 8.0 G/DL - - ALB 3.5 - 5.0 G/DL - - ALKP 25 - 110 U/L - - ALT 7 - 56 U/L - - TBILI 0.3 - 1.2 MG/DL - - GFR >60 mL/min 10(L) 6(L) GFRAA >60 mL/min 12(L) 7(L) Other Common Labs: Other Common Labs Latest Ref Rng & Units 05/31/2019 05/30/2019 PO4 2.0 - 4.5 MG/DL 5.0(H) 5.8(H) MG 1.6 - 2.6 mg/dL 2.2 1.9 VITD 30 - 80 NG/ML - 12.3(L) UPRO NEG-NEG - - HBA1C 4.0 - 6.0 % - - PSAS <4.0 NG/ML - - Tacrolimus 2 - 15 NG/ML 16.2(HH) 15.7(H) Imaging: Results for orders placed during the [...] Jose Gill D.O. on 05/30/2019 8:32 AM. Renal USN (05/28/2019): The right lower quadrant renal transplant is normal in size, measuring 10.0 x 4.4 cm, previously 9.8 x 4.7 cm. There is no hydronephrosis. No peritransplant fluid collections are identified. Intrarenal resistive indices are normal, ranging 0.68-0.71, previously 0.58-0.74. Systolic acceleration is normal. The main renal artery is patent without visible stenosis. Peak systolic velocity of the main renal artery is 91 cm/sec, previously 165 cm/s. The main renal vein is patent. The external iliac artery and vein are patent with normal direction of blood flow. Peak systolic velocity of the external iliac artery is 104 cm/sec, previously 149 cm/s. The urinary bladder is partially decompressed with partially visualized ureteral stent. There is an additional questionable small amount of debris in the urinary bladder lumen. Assessment and Plan: Mr. Pace is a 49 y.o.white male with ESRD due to type 1 diabetes s/p DDRT on c/b DGF. 1. Immunosuppression: on Thymo/tacro/MPA/prednisone taper. Aiming for tacrolimus level between 10-15 ng/ml by MEIA for first 3 months of transplant; tacro level today on 9 hr trough; check a trough tacro level tomorrow Keep MPA as is and wi ll taper off prednisone. 2. Renal function: nonoliguric; USN unremarkable; no indication for HD today; on Flomax 3. HTN: acceptable for now; if BP >160/90 then would start metoprolol 4. ID: will need 6 months of Valcyte and 12 months of Bactrim for CMV and PCP/UT I prophylaxis respectively. 5. Anemia: slightly lower today; watch for now; no evidence of TMA by labs (norm al HPT and LDH) 6. DM: on Lantus Verónica Palm MD Pager [phone] L OPERATOR * Verónica Palm MD - 05/30/2019 11:47 AM MOGUL OPERATOR 05/30/19 Transplant Consult Progress Note: [place] Pace [id number] 1970 Transplant Synopsis: Date: 05/27/2019 Donor: DCD from a female donor in early KDPI: 60% CPRA: 0% DSA: none Induction: Thymo for steroid avoidance CMV status: D+/R- Post-op course: DGF Ureteral stent removal: TBD Baseline Scr: TBD Clinical trial: none Referring dean of education: S: patient seen on dialysis; became more SOB overnite requiring 7 liters of O2; given Lasix 100 mg IV with response; unable to sleep due to SOB; tolerating HD today; breathing better Patient Active Problem List Diagnosis Date Noted Hemodialysis patient ([facility]) 05/28/2019 Uncontrolled type 1 diabetes mellitus with hypoglycemia ([facility]) 05/28/2019 Kidney transplanted 05/28/2019 Obesity 05/28/2019 Immunosuppression ([facility]) 05/28/2019 Depression 05/28/2019 Seizure disorder ([facility]) 05/28/2019 GREGORY (obstructive sleep apnea) 05/28/2019 ESRD (end stage renal disease) ([facility]) 12/22/2016 Review of Systems Constitutional: Negative. HENT: Negative. Eyes: Negative. Respiratory: Positive for shortness of breath. Cardiovascular: Negative. Gastrointestinal: Negative. Genitourinary: Negative. Musculoskeletal: Negative. Skin: Negative. Neurological: Negative. Endo/Heme/Allergies: Negative. Psychiatric/Behavioral: Negative. MEDS: cephalexin (KEFLEX) capsule 500 mg, 500 mg, Oral, Q12H* fluoxetine (PROZAC) capsule 40 mg, 40 mg, Oral, QDAY insulin aspart U-100 (NOVOLOG FLEXPEN) injection PEN 0-24 Units, 0-24 Units, Sub cutaneous, ACHS (22) insulin aspart U-100 (NOVOLOG FLEXPEN) injection PEN 1-25 Units, 1-25 Units, Sub cutaneous, TID w/ meals insulin glargine (LANTUS SOLOSTAR) injection PEN 36 Units, 36 Units, Subcutaneou s, QDAY(12) lidocaine (LIDODERM) 5 % topical patch 1 patch, 1 patch, Topical, QDAY And Verification of Patch Placement and Integrity - Lidocaine 5%, , Transdermal, BID mycophenolate DR (MYFORTIC) tablet 720 mg, 720 mg, Oral, BID nystatin (MYCOSTATIN) oral suspension 500,000 Units, 500,000 Units, Swish & Swallow, QID pantoprazole DR (PROTONIX) tablet 40 mg, 40 mg, Oral, QDAY(21) polyethylene glycol 3350 (MIRALAX) packet 17 g, 1 packet, Oral, QDAY [START ON 05/31/2019] prednisone (DELTASONE) tablet 30 mg, 30 mg, Oral, QDAY Followed by [START ON 06/01/2019] prednisone (DELTASONE) tablet 20 mg, 20 mg, Oral, QDAY Followed by [START ON 06/02/2019] prednisone (DELTASONE) tablet 15 mg, 15 mg, Oral, QDAY Followed by [START ON 06/03/2019] prednisone (DELTASONE) tablet 10 mg, 10 mg, Oral, QDAY Followed by [START ON 06/04/2019] prednisone (DELTASONE) tablet 5 mg, 5 mg, Oral, QDAY(12) pregabalin (LYRICA) capsule 75 mg, 75 mg, Oral, TID senna/docusate (SENOKOT-S) tablet 2 tablet, 2 tablet, Oral, BID tacrolimus (PROGRAF) capsule 5 mg, 5 mg, Oral, BID(6-18) tamsulosin (FLOMAX) capsule 0.4 mg, 0.4 mg, Oral, QDAY traZODone (DESYREL) tablet 100 mg, 100 mg, Oral, QHS Allergies: Allergies Allergen Reactions Penicillins ANAPHYLAXIS Codeine VOMITING Physical Exam: BP 158/55 (BP Source: Leg, Left Lower) | Pulse 81 | Temp 36.6 C (97.9 F) | Ht 167.6 cm (65.98") Comment: previously reported | Wt 106 kg (233 lb 11 oz) | SpO2 92% | BMI 37.74 kg/m Intake/Output Summary (Last 24 hours) at 05/30/2019 1147 Last data filed at 05/30/2019 1025 Gross per 24 hour Intake 1901 ml Output 1637 ml Net 264 ml General: in NAD Skin: warm, dry; multiple tattoos on body and limbs HEENT: EOMI, bearded Neck: CV: RRR S1/S2, no murmurs Lungs: clear anteriorly Abd: obese; RLQ allograft dry with maria r; no exudates; mild erythema around st aples Ext: no edema; bilateral SCD's; LUE AV fistula with bruit and thrill Neuro: nonfocal Psych: affect appropriate Laboratory studies: CBC with Diff: CBC with Diff Latest Ref Rng & Units 05/30/2019 05/29/2019 WBC 4.5 - 11.0 K/UL 4.1(L) 5.7 RBC 4.4 - 5.5 M/UL 3.06(L) 2.93(L) HGB 13.5 - 16.5 GM/DL 10.0(L) 9.4(L) HCT 40 - 50 % 29.1(L) 27.6(L) MCV 80 - 100 FL 95.3 94.4 MCH 26 - 34 PG 32.8 32.0 MCHC 32.0 - 36.0 G/DL 34.4 33.9 RDW 11 - 15 % 14.5 14.2 PLT 150 - 400 K/UL 93(L) 96(L) MPV 7 - 11 FL 10.2 9.9 NEUT 41 - 77 % - - ANC 1.8 - 7.0 K/UL - - LYMA 24 - 44 % - - ALYM 1.0 - 4.8 K/UL - - ANGELA 4 - 12 % - - AMONO 0 - 0.80 K/UL - - EOSA 0 - 5 % - - AEOS 0 - 0.45 K/UL - - BASA 0 - 2 % - - ABAS 0 - 0.20 K/UL - - CMP: CMP Latest Ref Rng & Units 05/30/2019 05/29/2019 NA 137 - 147 MMOL/L 131(L) 130(L) K 3.5 - 5.1 MMOL/L 3.8 4.1 CL 98 - 110 MMOL/L 96(L) 96(L) CO2 21 - 30 MMOL/L 19(L) 18(L) GAP 3 - 12 16(H) 16(H) BUN 7 - 25 MG/DL 86(H) 65(H) CR 0.4 - 1.24 MG/DL 9.50(H) 8.21(H) GLUX 70 - 100 MG/DL 158(H) 283(H) CA 8.5 - 10.6 MG/DL 7.1(L) 6.8(L) TP 6.0 - 8.0 G/DL - - ALB 3.5 - 5.0 G/DL - - ALKP 25 - 110 U/L - - ALT 7 - 56 U/L - - TBILI 0.3 - 1.2 MG/DL - - GFR >60 mL/min 6(L) 7(L) GFRAA >60 mL/min 7(L) 9(L) Other Common Labs: Other Common Labs Latest Ref Rng & Units 05/30/2019 05/29/2019 PO4 2.0 - 4.5 MG/DL 5.8(H) 6.6(H) MG 1.6 - 2.6 mg/dL 1.9 1.7 VITD 30 - 80 NG/ML 12.3(L) - UPRO NEG-NEG - - HBA1C 4.0 - 6.0 % - - PSAS <4.0 NG/ML - - Tacrolimus 2 - 15 NG/ML 15.7(H) 17.5(HH) Imaging: Results for orders placed during the [...] Jose Gill D.O. on 05/30/2019 8:32 AM. Renal USN (05/28/2019): The right lower quadrant renal transplant is normal in size, measuring 10.0 x 4.4 cm, previously 9.8 x 4.7 cm. There is no hydronephrosis. No peritransplant fluid collections are identified. Intrarenal resistive indices are normal, ranging 0.68-0.71, previously 0.58-0.74. Systolic acceleration is normal. The main renal artery is patent without visible stenosis. Peak systolic velocity of the main renal artery is 91 cm/sec, previously 165 cm/s. The main renal vein is patent. The external iliac artery and vein are patent with normal direction of blood flow. Peak systolic velocity of the external iliac artery is 104 cm/sec, previously 149 cm/s. The urinary bladder is partially decompressed with partially visualized ureteral stent. There is an additional questionable small amount of debris in the urinary bladder lumen. Assessment and Plan: Mr. Pace is a 49 y.o.white male with ESRD due to type 1 diabetes s/p DDRT on c/b DGF. 1. Immunosuppression: on Thymo/tacro/MPA/prednisone taper. Aiming for tacrolimus level between 10-15 ng/ml by MEIA for first 3 months of transplant; tacro level essentially on target; check tacro level tomorrow Keep MPA as is and will taper off prednisone. 2. Renal function: nonoliguric; USN unremarkable but numbers worse; HD today for 4 hrs and remove 2-3 liters as MAP tolerates 3. HTN: acceptable for now; if BP >160/90 then would start metoprolol 4. ID: will need 6 months of Valcyte and 12 months of Bactrim for CMV and PCP/UT I prophylaxis respectively. 5. Anemia: stable; no evidence of TMA by labs (normal HPT and LDH) 6. DM: on Lantus Verónica Palm MD Pager [phone] L OPERATOR * Verónica Palm MD - 05/29/2019 1:59 PM MOGUL OPERATOR 05/29/19 Transplant Consult Progress Note: [place] Pace [id number] 1970 Transplant Synopsis: Date: 05/27/2019 Donor: DCD from a female donor in early 50 KDPI: 60% CPRA: 0% DSA: none Induction: Thymo for steroid avoidance CMV status: D+/R- Post-op course: IGF so far Ureteral stent removal: TBD Baseline Scr: TBD Clinical trial: none Referring dean of education: S: doing well; no events overnite; made 250 cc of urine in 3 hrs this morning; h ad renal USN yesterday for decrease u/o Patient Active Problem List Diagnosis Date Noted Hemodialysis patient ([facility]) 05/28/2019 Uncontrolled type 1 diabetes mellitus with hypoglycemia ([facility]) 05/28/2019 Kidney transplanted 05/28/2019 Obesity 05/28/2019 Immunosuppression ([facility]) 05/28/2019 Depression 05/28/2019 Seizure disorder ([facility]) 05/28/2019 GREGORY (obstructive sleep apnea) 05/28/2019 ESRD (end stage renal disease) ([facility]) 12/22/2016 Review of Systems Constitutional: Negative. HENT: Negative. Eyes: Negative. Respiratory: Negative. Cardiovascular: Negative. Gastrointestinal: Negative. Genitourinary: Negative. Musculoskeletal: Negative. Skin: Negative. Neurological: Negative. Endo/Heme/Allergies: Negative. Psychiatric/Behavioral: Negative. MEDS: cephalexin (KEFLEX) capsule 500 mg, 500 mg, Oral, Q12H* fluoxetine (PROZAC) capsule 40 mg, 40 mg, Oral, QDAY insulin aspart U-100 (NOVOLOG FLEXPEN) injection PEN 0-12 Units, 0-12 Units, Sub cutaneous, ACHS (22) insulin aspart U-100 (NOVOLOG FLEXPEN) injection PEN 1-25 Units, 1-25 Units, Sub cutaneous, TID after meals insulin glargine (LANTUS SOLOSTAR) injection PEN 32 Units, 32 Units, Subcutaneou s, QDAY(12) lidocaine (LIDODERM) 5 % topical patch 1 patch, 1 patch, Topical, QDAY And Verification of Patch Placement and Integrity - Lidocaine 5%, , Transdermal, BID lymphocyte immune globulin, rabbit (THYMOGLOBULIN) 150 mg, hydrocortisone PF (SO MARY-CORTEF) 20 mg, heparin (porcine) 1,000 Units in sodium chloride 0.9% (NS) 531 .4 mL IVPB, , Intravenous, ONCE [START ON 05/30/2019] methylPREDNISolone (SOLU-MEDROL) injection 40 mg, 40 mg, In travenous, QDAY Followed by [START ON 05/31/2019] prednisone (DELTASONE) tablet 30 mg, 30 mg, Oral, QDAY Followed by [START ON 06/01/2019] prednisone (DELTASONE) tablet 20 mg, 20 mg, Oral, QDAY Followed by [START ON 06/02/2019] prednisone (DELTASONE) tablet 15 mg, 15 mg, Oral, QDAY Followed by [START ON 06/03/2019] prednisone (DELTASONE) tablet 10 mg, 10 mg, Oral, QDAY Followed by [START ON 06/04/2019] prednisone (DELTASONE) tablet 5 mg, 5 mg, Oral, QDAY(12) mycophenolate DR (MYFORTIC) tablet 720 mg, 720 mg, Oral, BID nystatin (MYCOSTATIN) oral suspension 500,000 Units, 500,000 Units, Swish & Swallow, QID pantoprazole DR (PROTONIX) tablet 40 mg, 40 mg, Oral, QDAY(21) polyethylene glycol 3350 (MIRALAX) packet 17 g, 1 packet, Oral, QDAY pregabalin (LYRICA) capsule 75 mg, 75 mg, Oral, TID senna/docusate (SENOKOT-S) tablet 2 tablet, 2 tablet, Oral, BID tacrolimus (PROGRAF) capsule 5 mg, 5 mg, Oral, BID(6-18) tamsulosin (FLOMAX) capsule 0.4 mg, 0.4 mg, Oral, QDAY traZODone (DESYREL) tablet 100 mg, 100 mg, Oral, QHS Allergies: Allergies Allergen Reactions Penicillins ANAPHYLAXIS Codeine VOMITING Physical Exam: BP 138/68 (BP Source: Leg, Left Lower) | Pulse 83 | Temp 36.6 C (97.8 F) | Ht 167.6 cm (65.98") Comment: previously reported | Wt 105.4 kg (232 lb 6.4 o z) | SpO2 92% | BMI 37.53 kg/m Intake/Output Summary (Last 24 hours) at 05/29/2019 1359 Last data filed at 05/29/2019 1023 Gross per 24 hour Intake 4425 ml Output 955 ml Net 3470 ml General: in NAD Skin: warm, dry; multiple tattoos on body and limbs HEENT: EOMI, bearded Neck: CV: RRR S1/S2, no murmurs Lungs: clear anteriorly Abd: obese; RLQ allograft dry with maria r; no exudates Ext: no edema; bilateral SCD's; LUE AV fistula with bruit and thrill Neuro: nonfocal Psych: affect appropriate Laboratory studies: CBC with Diff: CBC with Diff Latest Ref Rng & Units 05/29/2019 05/28/2019 WBC 4.5 - 11.0 K/UL 5.7 10.0 RBC 4.4 - 5.5 M/UL 2.93(L) 3.24(L) HGB 13.5 - 16.5 GM/DL 9.4(L) 10.6(L) HCT 40 - 50 % 27.6(L) 30.7(L) MCV 80 - 100 FL 94.4 94.8 MCH 26 - 34 PG 32.0 32.7 MCHC 32.0 - 36.0 G/DL 33.9 34.5 RDW 11 - 15 % 14.2 14.1 PLT 150 - 400 K/UL 96(L) 118(L) MPV 7 - 11 FL 9.9 9.9 NEUT 41 - 77 % - - ANC 1.8 - 7.0 K/UL - - LYMA 24 - 44 % - - ALYM 1.0 - 4.8 K/UL - - ANGELA 4 - 12 % - - AMONO 0 - 0.80 K/UL - - EOSA 0 - 5 % - - AEOS 0 - 0.45 K/UL - - BASA 0 - 2 % - - ABAS 0 - 0.20 K/UL - - CMP: CMP Latest Ref Rng & Units 05/29/2019 05/28/2019 NA 137 - 147 MMOL/L 130(L) 130(L) K 3.5 - 5.1 MMOL/L 4.1 3.7 CL 98 - 110 MMOL/L 96(L) 95(L) CO2 21 - 30 MMOL/L 18(L) 22 GAP 3 - 12 16(H) 13(H) BUN 7 - 25 MG/DL 65(H) 55(H) CR 0.4 - 1.24 MG/DL 8.21(H) 7.79(H) GLUX 70 - 100 MG/DL 283(H) 126(H) CA 8.5 - 10.6 MG/DL 6.8(L) 7.2(L) TP 6.0 - 8.0 G/DL - - ALB 3.5 - 5.0 G/DL - - ALKP 25 - 110 U/L - - ALT 7 - 56 U/L - - TBILI 0.3 - 1.2 MG/DL - - GFR >60 mL/min 7(L) 7(L) GFRAA >60 mL/min 9(L) 9(L) Other Common Labs: Other Common Labs Latest Ref Rng & Units 05/29/2019 05/28/2019 PO4 2.0 - 4.5 MG/DL 6.6(H) 3.2 MG 1.6 - 2.6 mg/dL 1.7 1.7 UPRO NEG-NEG - - HBA1C 4.0 - 6.0 % - - PSAS <4.0 NG/ML - - Tacrolimus 2 - 15 NG/ML 17.5(HH) - Imaging: Results for orders placed during the hospital encounter of 12/17/16 CT ABD/PELV WO CONTRAST Impression 1. Normal caliber aorta without calcified plaque. Normal caliber raf ac arteries with minimal calcified plaque. 2. Peritoneal dialysis catheter in place with mild pneumoperitoneum and minimal pelvic free fluid. 3. Mild left ventricular hypertrophy. Approved by Melivna Briones M.D. on 12/17/2016 3:58 PM By my electronic signature, I attest that I have personally reviewed the images for this examination and formulated the interpretations and opinions expressed i n this report Finalized by Jorge Vasquez M.D. on 12/17/2016 5:03 PM. Dictated by Melvina alberts M.D. on 12/17/2016 2:32 PM. Results for orders placed during the hospital encounter of 05/27/19 CHEST 2 VIEWS Impression Generalized cardiomegaly and mild venous congestion consistent with volume expansion. Resorptive changes about the distal clavicular articular surfaces likely reflect ing renal osteodystrophy. Finalized by Rogers Gill M.D. on 05/28/2019 7:12 AM. Dictated by Terri Hedrick on 05/28/2019 7:06 AM. Renal USN (05/28/2019): The right lower quadrant renal transplant is normal in size, measuring 10.0 x 4.4 cm, previously 9.8 x 4.7 cm. There is no hydronephrosis. No peritransplant fluid collections are identified. Intrarenal resistive indices are normal, ranging 0.68-0.71, previously 0.58-0.74. Systolic acceleration is normal. The main renal artery is patent without visible stenosis. Peak systolic velocity of the main renal artery is 91 cm/sec, previously 165 cm/s. The main renal vein is patent. The external iliac artery and vein are patent with normal direction of blood flow. Peak systolic velocity of the external iliac artery is 104 cm/sec, previously 149 cm/s. The urinary bladder is partially decompressed with partially visualized ureteral stent. There is an additional questionable small amount of debris in the urinary bladder lumen. Assessment and Plan: Mr. Pace is a 49 y.o.white male with ESRD due to type 1 diabetes s/p DDRT on . 1. Immunosuppression: on Thymo/tacro/MPA/prednisone taper. Aiming for tacrolimus level between 10-15 ng/ml by MEIA for first 3 months of transplant; first tacro level slightly above target; check tacro level tomorrow and will adjust dose if still high; Keep MPA as is and will taper off prednisone. 2. Renal function: Scr unchanged; nonoliguric watch for now; USN unremarkable 3. HTN: acceptable for now; if BP >160/90 then would start metoprolol 4. ID: will need 6 months of Valcyte and 12 months of Bactrim for CMV and PCP/UT I prophylaxis respectively. 5. Anemia: dropping; will check TMA labs - HPT, LDH 6. DM: on insulin pump at home; if alert, may continue with insulin pump in Macie Palm MD Pager [phone] L OPERATOR * Dawson Sarah, - 05/29/2019 7:54 AM MOGUL OPERATOR Endocrinology Note Name: [place] Pace Admission Date: 05/27/2019 Active Problems: ESRD (end stage renal disease) (HCC) Hemodialysis patient (HCC) Uncontrolled type 1 diabetes mellitus with hypoglycemia (HCC) Kidney transplanted Obesity Immunosuppression (HCC) Depression Seizure disorder (HCC) GREGORY (obstructive sleep apnea) Reason for Consult: "Type 1 DM; glucose control, post operative from kidney transplant" Assessment / Plan [place] Pace is a 49 y.o. male with history of type 1 diabetes, HTN, depre ssion, GREGORY, seizure disorder, end-stage renal disease on hemodialysis status pos t kidney transplant 05/27/2019. Endocrinology consulted for diabetes management in the setting of high-dose steroids. Type 1 Diabetes Mellitus, uncontrolled Dx: 2001 Last HgbA1C 8.4 on 04/19/2019 CLINICAL NURSE OCCUPATIONAL MEDICINE regimen: Medtronic 630 G Hypoglycemic episodes on this regimen: Daily Hypoglycemia Follows up with Dr. Phan for diabetes management Diabetic-complications assessment: Retinopathy: yes. Peripheral neuropathy: yes Autonomic neuropathy: no Nephropathy: ESRD s/p Kidney transplant Macrovascular complications: no known CAD Risk Factor assessment Last lipid profile elevated triglycerides, low HDL On ACEi/ARB?: no On Statin?: no Pump Router Operator Pin: Medtronic model 630 G Insulin type Humalog Insulin Time (IOB): Recently changed to 6 hours Insulin Pump Settings - (Changes this admission made in bold) Time Basal Rate ISF I:C Ratio Time Basal Rate ISF I:C Ratio MN 1.1 50 17 noon 0100 1300 0200 1400 0300 1500 0400 1600 0500 1.05 1700 45 0600 1830 0.875 0700 1900 0800 2000 0900 2100 1000 0.800 2200 1100 2300 1200 MN BG targets: 120 End-stage renal disease Previously on hemodialysis Status post kidney transplant 05/27/2019 Hypertension GREGORY Seizure disorder Depression Obesity Recently started on GLP-1 for wt by endocrinology I have reviewed outside records from [facility]. They have been summarized (no rafal, labs, imaging) where appropriate. Impression / Recommendations Inc Glargine 32 daily Cont Aspart ICR 10 MDCF Daily steroid taper starting 05/28/2019 Methylprednisolone 120 mg daily Methylprednisolone 80 mg daily Methylprednisolone 40 mg daily Prednisone 30 mg daily Prednisone 20 mg daily Prednisone 15 mg daily Prednisone 10 mg daily Prednisone 5 mg daily Dawson Sarah DO Pager [phone] Subjective: Virginia Pace is a 49 y.o. male fasting hyperglycemia. Still need to see ho w mealtime insulin goes today and then make adjustments. Denies fevers, chills, nausea, vomiting Physical Exam: Gen: A&O HEENT: EOMI Lungs: Non labored Ext: No cyanosis Skin: No rashes Vital Signs: Last Filed In 24 Hours Vital Signs: 24 Hour Range BP: 156/76 (05/29 510) Temp: 36.3 C (97.4 F) (05/29 510) Pulse: 79 (05/29 510) Respirations: 18 PER MINUTE (05/29 510) SpO2: 94 % (05/29 510) SpO2 Pulse: 94 (05/28 1923) BP: (143-158)/(49-82) Temp: [36.3 C (97.4 F)-36.8 C (98.2 F)] Pulse: [77-89] Respirations: [13 PER MINUTE-20 PER MINUTE] SpO2: [92 %-95 %] Intensity Pain Scale (Self Report): 2 (05/29/19 8670) Medications: No current facility-administered medications on file prior to encounter. Current Outpatient Medications on File Prior to Encounter Medication Sig Dispense Refill albuterol sulfate (PROAIR HFA) 90 mcg/actuation aerosol inhaler Inhale 2 puf fs by mouth into the lungs every 6 hours as needed for Wheezing or Shortness of Breath. Shake well before use. bumetanide (BUMEX) 2 mg tablet Take 2 mg by mouth twice daily. calcitriol (ROCALTROL) 0.5 mcg capsule Take 0.5 mcg by mouth every 48 hours. calcium acetate (PHOSLO) 667 mg capsule Take 4 capsules with meals and 2 wit h snacks docusate (COLACE) 100 mg capsule Take 100 mg by mouth twice daily as needed. fluoxetine (PROZAC) 40 mg capsule Take 40 mg by mouth daily. insulin pump -ASPART- Patients Own by SubQ Pump route Three times daily with meals and as needed. liraglutide (VICTOZA) 0.6 mg/0.1 mL (18 mg/3 mL) injection pen Inject 0.6 mg under the skin daily. omeprazole DR(+) (PRILOSEC) 40 mg capsule Take 40 mg by mouth daily before b reakfast. pregabalin (LYRICA) 75 mg capsule Take 75 mg by mouth three times daily. tamsulosin (FLOMAX) 0.4 mg capsule Take 0.4 mg by mouth daily. Do not crush, chew or open capsules. Take 30 minutes following the same meal each day. traZODone (DESYREL) 100 mg tablet Take 100 mg by mouth at bedtime daily. Lab/Radiology/Other Diagnostic Tests: 24-hour labs: Results for orders placed or performed during the hospital encounter of 05/27/19 (from the past 24 hour(s)) POC GLUCOSE Collection Time: 05/28/19 8:14 AM Result Value Ref Range Glucose, POC 120 (H) 70 - 100 MG/DL POC GLUCOSE Collection Time: 05/28/19 10:11 AM Result Value Ref Range Glucose, POC 127 (H) 70 - 100 MG/DL PTT (APTT) Collection Time: 05/28/19 11:31 AM Result Value Ref Range APTT 30.3 24.0 - 36.5 SEC POC GLUCOSE Collection Time: 05/28/19 12:33 PM Result Value Ref Range Glucose, POC 111 (H) 70 - 100 MG/DL POC GLUCOSE Collection Time: 05/28/19 5:14 PM Result Value Ref Range Glucose, POC 111 (H) 70 - 100 MG/DL BASIC METABOLIC PANEL Collection Time: 05/28/19 5:50 PM Result Value Ref Range Sodium 130 (L) 137 - 147 MMOL/L Potassium 3.7 3.5 - 5.1 MMOL/L Chloride 95 (L) 98 - 110 MMOL/L CO2 22 21 - 30 MMOL/L Anion Gap 13 (H) 3 - 12 Glucose 126 (H) 70 - 100 MG/DL Blood Urea Nitrogen 55 (H) 7 - 25 MG/DL Creatinine 7.79 (H) 0.4 - 1.24 MG/DL Calcium 7.2 (L) 8.5 - 10.6 MG/DL eGFR Non 7 (L) >60 mL/min eGFR 9 (L) >60 mL/min PTT (APTT) Collection Time: 05/28/19 5:50 PM Result Value Ref Range APTT 32.8 24.0 - 36.5 SEC POC GLUCOSE Collection Time: 05/28/19 9:34 PM Result Value Ref Range Glucose, POC 206 (H) 70 - 100 MG/DL PTT (APTT) Collection Time: 05/28/19 11:04 PM Result Value Ref Range APTT 30.4 24.0 - 36.5 SEC CBC Collection Time: 05/29/19 4:48 AM Result Value Ref Range White Blood Cells 5.7 4.5 - 11.0 K/UL RBC 2.93 (L) 4.4 - 5.5 M/UL Hemoglobin 9.4 (L) 13.5 - 16.5 GM/DL Hematocrit 27.6 (L) 40 - 50 % MCV 94.4 80 - 100 FL MCH 32.0 26 - 34 PG MCHC 33.9 32.0 - 36.0 G/DL RDW 14.2 11 - 15 % Platelet Count 96 (L) 150 - 400 K/UL MPV 9.9 7 - 11 FL MAGNESIUM Collection Time: 05/29/19 4:48 AM Result Value Ref Range Magnesium 1.7 1.6 - 2.6 mg/dL PHOSPHORUS Collection Time: 05/29/19 4:48 AM Result Value Ref Range Phosphorus 6.6 (H) 2.0 - 4.5 MG/DL BASIC METABOLIC PANEL Collection Time: 05/29/19 4:48 AM Result Value Ref Range Sodium 130 (L) 137 - 147 MMOL/L Potassium 4.1 3.5 - 5.1 MMOL/L Chloride 96 (L) 98 - 110 MMOL/L CO2 18 (L) 21 - 30 MMOL/L Anion Gap 16 (H) 3 - 12 Glucose 283 (H) 70 - 100 MG/DL Blood Urea Nitrogen 65 (H) 7 - 25 MG/DL Creatinine 8.21 (H) 0.4 - 1.24 MG/DL Calcium 6.8 (L) 8.5 - 10.6 MG/DL eGFR Non 7 (L) >60 mL/min eGFR 9 (L) >60 mL/min PTT (APTT) Collection Time: 05/29/19 4:48 AM Result Value Ref Range APTT 29.2 24.0 - 36.5 SEC Glucose: (!) 283 (05/29/19 0448) POC Glucose (Download): (!) 206 (05/28/192133) Pertinent radiology reviewed. L OPERATOR Associated attestation - Joan Ennis MD - 05/29/2019 4:14 PM MOGUL OPERATOR ATTESTATION I personally performed the [place] portions of the E/M visit, discussed case with re sident and concur with resident documentation of history, physical exam, assessm ent, and treatment plan unless otherwise noted. I have noted hyperglycemia this afternoon. I have changed correction factor from mid-dose to high-dose. Insulin to carb ratio recently changed from 10 to 7, allowing for more insulin with me als. Assessment: Type 1 diabetes, uncontrolled, with nephropathy Status post kidney transplant Steroid-induced hyperglycemia Hypertension Staff name: Joan Ennis MD Date: 05/29/2019 * Verónica Palm MD - 05/28/2019 2:08 PM MOGUL OPERATOR Associated Order(s): CONSULT NEPHROLOGY TRANSPLANT PHYSICIAN 05/28/19 Transplant Consult [place] Pace [id number] Transplant Synopsis: Date: 05/27/2019 Donor: DCD from a female donor in early 50's KDPI: 60% CPRA: 0% DSA: none Induction: Thymo for steroid avoidance CMV status: D+/R- Post-op course: IGF so far Ureteral stent removal: TBD Baseline Scr: TBD Clinical trial: none Referring dean of education: CC: new kidney transplant HPI: [place] Pace is a 49 y.o.white male with ESRD due to type 1 diabetes. He was not a pancreas tx candidate due to his weight. He has been on home hemod ialysis for 3.5 years. He made about 300 cc urine per day while on dialysis. He received a DDRT yesterday and is doing well. C/o being hungry. Denies CAD. Started on tacrolimus 5 mg po bid last nite along with MPA. 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 HENT: Negative. Eyes: Negative. Respiratory: Negative. Cardiovascular: Negative. Gastrointestinal: Negative. Genitourinary: Negative. Musculoskeletal: Negative. Skin: Negative. Neurological: Negative. Endo/Heme/Allergies: Negative. Psychiatric/Behavioral: Negative. MEDS: ceFAZolin (ANCEF) IVP 500 mg, 500 mg, Intravenous, Q12H* Followed by [START ON 05/29/2019] cephalexin (KEFLEX) capsule 500 mg, 500 mg, Oral, Q12H* fluoxetine (PROZAC) capsule 40 mg, 40 mg, Oral, QDAY insulin aspart U-100 (NOVOLOG FLEXPEN) injection PEN 0-12 Units, 0-12 Units, Sub cutaneous, ACHS (22) insulin aspart U-100 (NOVOLOG FLEXPEN) injection PEN 1-25 Units, 1-25 Units, Sub cutaneous, TID after meals insulin glargine (LANTUS SOLOSTAR) injection PEN 28 Units, 28 Units, Subcutaneou s, QDAY(12) lymphocyte immune globulin, rabbit (THYMOGLOBULIN) 150 mg, hydrocortisone PF (SO MARY-CORTEF) 20 mg, heparin (porcine) 1,000 Units in sodium chloride 0.9% (NS) 531 .4 mL IVPB, , Intravenous, ONCE [START ON 05/29/2019] methylPREDNISolone (SOLU-MEDROL PF) injection 80 mg, 80 mg, Intravenous, QDAY Followed by [START ON 05/30/2019] methylPREDNISolone (SOLU-MEDROL) injection 40 mg, 40 mg, In travenous, QDAY Followed by [START ON 05/31/2019] prednisone (DELTASONE) tablet 30 mg, 30 mg, Oral, QDAY Followed by [START ON 06/01/2019] prednisone (DELTASONE) tablet 20 mg, 20 mg, Oral, QDAY Followed by [START ON 06/02/2019] prednisone (DELTASONE) tablet 15 mg, 15 mg, Oral, QDAY Followed by [START ON 06/03/2019] prednisone (DELTASONE) tablet 10 mg, 10 mg, Oral, QDAY Followed by [START ON 06/04/2019] prednisone (DELTASONE) tablet 5 mg, 5 mg, Oral, QDAY(12) mycophenolate DR (MYFORTIC) tablet 720 mg, 720 mg, Oral, BID nystatin (MYCOSTATIN) oral suspension 500,000 Units, 500,000 Units, Swish & Swallow, QID pantoprazole DR (PROTONIX) tablet 40 mg, 40 mg, Oral, QDAY(21) pregabalin (LYRICA) capsule 75 mg, 75 mg, Oral, TID tacrolimus (PROGRAF) capsule 5 mg, 5 mg, Oral, BID(6-18) tamsulosin (FLOMAX) capsule 0.4 mg, 0.4 mg, Oral, QDAY traZODone (DESYREL) tablet 100 mg, 100 mg, Oral, QHS Allergies: Allergies Allergen Reactions Penicillins ANAPHYLAXIS Codeine VOMITING SHx: 3 children Ex-smoker FHx: No renal disease No colon cancer Maternal grandmother with diabetes Physical Exam: BP 158/57 (BP Source: Leg, Left Lower) | Pulse 83 | Temp 36.7 C (98 F) | Ht 167.6 cm (66") | Wt 103.8 kg (228 lb 13.4 oz) | SpO2 94% | BMI 36.94 kg/m Intake/Output Summary (Last 24 hours) at 05/28/2019 1425 Last data filed at 05/28/2019 1321 Gross per 24 hour Intake 4981.02 ml Output 1675 ml Net 3306.02 ml General: in NAD Skin: warm, dry; multiple tattoos on body and limbs HEENT: EOMI, bearded Neck: 2/2 carotid pulses w/o bruits CV: RRR S1/S2, no murmurs Lungs: clear anteriorly Abd: obese; RLQ allograft spotted with dry blood on bandage Ext: no edema; bilateral SCD's; LUE AV fistula with bruit and thrill Neuro: nonfocal Psych: affect appropriate Laboratory studies: CBC with Diff: CBC with Diff Latest Ref Rng & Units 05/28/2019 05/27/2019 WBC 4.5 - 11.0 K/UL 10.0 10.0 RBC 4.4 - 5.5 M/UL 3.24(L) 3.39(L) HGB 13.5 - 16.5 GM/DL 10.6(L) 11.0(L) HCT 40 - 50 % 30.7(L) 31.8(L) MCV 80 - 100 FL 94.8 94.0 MCH 26 - 34 PG 32.7 32.4 MCHC 32.0 - 36.0 G/DL 34.5 34.4 RDW 11 - 15 % 14.1 14.0 PLT 150 - 400 K/UL 118(L) 112(L) MPV 7 - 11 FL 9.9 9.7 NEUT 41 - 77 % - 97(H) ANC 1.8 - 7.0 K/UL - 9.60(H) LYMA 24 - 44 % - 0(L) ALYM 1.0 - 4.8 K/UL - 0.00(L) NAGELA 4 - 12 % - 2(L) AMONO 0 - 0.80 K/UL - 0.20 EOSA 0 - 5 % - 0 AEOS 0 - 0.45 K/UL - 0.00 BASA 0 - 2 % - 1 ABAS 0 - 0.20 K/UL - 0.10 CMP: CMP Latest Ref Rng & Units 05/28/2019 05/27/2019 NA 137 - 147 MMOL/L 132(L) 132(L) K 3.5 - 5.1 MMOL/L 3.8 3.8 CL 98 - 110 MMOL/L 97(L) 97(L) CO2 21 - 30 MMOL/L 22 22 GAP 3 - 12 13(H) 13(H) BUN 7 - 25 MG/DL 47(H) 43(H) CR 0.4 - 1.24 MG/DL 7.34(H) 7.07(H) GLUX 70 - 100 MG/DL 145(H) 146(H) CA 8.5 - 10.6 MG/DL 7.3(L) 7.3(L) TP 6.0 - 8.0 G/DL - - ALB 3.5 - 5.0 G/DL - - ALKP 25 - 110 U/L - - ALT 7 - 56 U/L - - TBILI 0.3 - 1.2 MG/DL - - GFR >60 mL/min 8(L) 8(L) GFRAA >60 mL/min 10(L) 10(L) Other Common Labs: Other Common Labs Latest Ref Rng & Units 05/28/2019 05/27/2019 PO4 2.0 - 4.5 MG/DL 3.2 - MG 1.6 - 2.6 mg/dL 1.7 - UPRO NEG-NEG - - HBA1C 4.0 - 6.0 % - 7.9(H) PSAS <4.0 NG/ML - - Imaging: Results for orders placed during the [...] during the hospital encounter of 05/27/19 CHEST 2 VIEWS Impression Generalized cardiomegaly and mild venous congestion consistent with volume expansion. Resorptive changes about the distal clavicular articular surfaces likely reflect ing renal osteodystrophy. Finalized by Rogers Gill M.D. on 05/28/2019 7:12 AM. Dictated by Terri Hedrick on 05/28/2019 7:06 AM. Assessment and Plan: Mr. Pace is a 49 y.o.white male with ESRD due to type 1 diabetes s/p DDRT on . 1. Immunosuppression: on Thymo/tacro/MPA/prednisone taper. Aiming for tacrolimus level between 10-15 ng/ml by MEIA for first 3 months of transplant; check tacro level tomorrow. Keep MPA as is and will taper off prednisone. 2. Renal function: Scr down 1 point; nonoliguric watch for now 3. HTN: acceptable for now; if BP >160/90 then would start metoprolol 4. ID: will need 6 months of Valcyte and 12 months of Bactrim for CMV and PCP/UT I prophylaxis respectively. 5. Anemia: stable 6. DM: on insulin pump at home; if alert, may continue with insulin pump in hous e Verónica Palm MD Pager [phone] L OPERATOR * Norma Gary - 05/28/2019 10:48 AM MOGUL OPERATOR Associated Order(s): CONSULT DIETITIAN CLINICAL NUTRITION Clinical Nutrition Initial Assessment Transplant Phase Name: [place] Pace : 1970 Age: 49 y.o. Admission Date: 05/27/2019 LOS: 0 days Recommendation: ADAT to DM 60g Carbs/meal Comments: Pt admitted for renal transplant s/p DDRT 05/27/2019. PMH of ESRD on HD, HTN, T1D M, osteomyelitis s/p L Great toe amputation, and cholecystectomy. Pt was alert o n visit and therefore conversation was held on diet goals. Met with patient and spouse. Pt reported hesitation in eating due to recent n/v. Diet just advanced t o CLD; only water at this point. Pt reports wanting to lose weight, but still ma naging carb controlled diet well CLINICAL NURSE OCCUPATIONAL MEDICINE, following 45-60g carbs/meal x 3 meals/day + multiple snacks/day at no more than 20g carbs each. Pt struggles to incorporat e fruits and vegetables into diet due to dislike for said foods. He is on disabi lity with limited income and mobility. He receives free meals that do not always have the most flavorable produce. He prefers 's cooking, but is limited in vegetable preferences. Encouraged efforts in exploring ways to enjoy non-starchy vegetables, explaining its importance in both DM control and weight loss. Discu ssed decreased calorie goals for weight loss. Reviewed MyPlate method and free f oods to as pt took a call. Waited to review food safety, but pt remained on the phone and reported being the one in control of food. Reviewed food saf ety with spouse. Anticipate return of appetite soon with no complications. Revie wed goal diet of 60g carbs/meal. Pt and spouse were receptive to education. Expe ct good compliance on food safety and continued DM diet efforts. At risk until P O intake is verified. Pt has been educated on post transplant nutrition guidelines including food safe ty, hand hygiene, grapefruit and pomegranate avoidance. DM and weight loss manag ement diet goals reviewed. Not yet tolerating PO intake, only on Clear Liquid Di et. Discharge Phase pending; short re-eval set. Nutrition Assessment of Patient: Admit Weight: 97.2 kg(unknown source); ; Desired Weight: 70 kg BMI (Calculated): 34.59; BMI Categories Adult: Obesity Class I: 30-34.9; Appeara nce: Obese Pertinent Allergies/Intolerances: none known Pertinent Labs: POC BG 127, A1c 7.9, Na+ 132, BUN 47, Cr 7.34, WNL K+/Phos; Pert inent Meds: insulin drip, pepcid, PPI, 1/2 NS 100ml, prograf, prednisone taper p ending; Oral Diet Order: Clear liquid; Current Oral Intake: Inadequate Estimated Calorie Needs: 8557-8753(23-28kcal/kg of dw 70kg) Estimated Protein Needs: 56-70(0.8-1g/kg of dw 70kg) Malnutrition Assessment: Adequately nourished prior to admission Nutrition Focused Physical Assessment: Loss of Subcutaneous Fat: NoMuscle Wasting: No Edema: Yes; Severity: Mild; Location: Upper extremities Pressure Injury: none noted Nutrition Diagnosis: Increased nutrient needs, specify: Etiology: kcal/protein: demands for healing Signs & Symptoms: s/p DDRT 05/27 Intervention / Plan: Provided DM diet review/tips for weight loss, food safety diet education Monitor PO intake, wt, labs, skin, gi, meds, fluids Goals: Verbalize understanding of diet Time Frame: Prior to discharge Status: Met;Ongoing(as needed) Avoid prolonged clear liquid status Time Frame: Within [address], LD *[phone] L OPERATOR * Dawson Sarah DO - 05/28/2019 6:42 AM MOGUL OPERATOR Associated Order(s): CONSULT ENDOCRINOLOGY PHYSICIAN Endocrinology Note Name: [place] Pace Admission Date: 05/27/2019 Active Problems: ESRD (end stage renal disease) ([facility]) Reason for Consult: "Type 1 DM; glucose control, post operative from kidney transplant" Assessment / Plan [place] Pace is a 49 y.o. male with history of type 1 diabetes, HTN, depre ssion, GREGORY, seizure disorder, end-stage renal disease on hemodialysis status pos t kidney transplant 05/27/2019. Endocrinology consulted for diabetes management in the setting of high-dose steroids. Type 1 Diabetes Mellitus, uncontrolled Dx: 2001 Last HgbA1C 8.4 on 04/19/2019 CLINICAL NURSE OCCUPATIONAL MEDICINE regimen: Medtronic 630 G Hypoglycemic episodes on this regimen: Daily Hypoglycemia Follows up with Dr. Phan for diabetes management Diabetic-complications assessment: Retinopathy: yes. Peripheral neuropathy: yes Autonomic neuropathy: no Nephropathy: ESRD s/p Kidney transplant Macrovascular complications: no known CAD Risk Factor assessment Last lipid profile elevated triglycerides, low HDL On ACEi/ARB?: no On Statin?: no Pump Router Operator Pin: Medtronic model 630 G Insulin type Humalog Insulin Time (IOB): Recently changed to 6 hours Insulin Pump Settings - (Changes this admission made in bold) Time Basal Rate ISF I:C Ratio Time Basal Rate ISF I:C Ratio MN 1.1 50 17 noon 0100 1300 0200 1400 0300 1500 0400 1600 0500 1.05 1700 45 0600 1830 0.875 0700 1900 0800 2000 0900 2100 1000 0.800 2200 1100 2300 1200 MN BG targets: 120 End-stage renal disease Previously on hemodialysis Status post kidney transplant 05/27/2019 Hypertension GREGORY Seizure disorder Depression Obesity Recently started on GLP-1 for wt by endocrinology I have reviewed outside records from [facility]. They have been summarized (no rafal, labs, imaging) where appropriate. Impression / Recommendations Patient has decreased dialysate and is able to bolus on his pump but is not conf ident changing all of his pump settings himself. His helps manage his insu sina pump and for this reason he will be reasonable to manage the patient in the hospital on injections. We will hold off on restarting the patient's insulin pu mp at this time. Start Glargine 28 daily Start Aspart ICR 10 MDCF Stop gtt 2 hrs post glargine dose Daily steroid taper starting 05/28/2019 Methylprednisolone 120 mg daily Methylprednisolone 80 mg daily Methylprednisolone 40 mg daily Prednisone 30 mg daily Prednisone 20 mg daily Prednisone 15 mg daily Prednisone 10 mg daily Prednisone 5 mg daily DO Lisa Harrisonr [id number] Subjective: Virginia Pace is a 49 y.o. male with history of type 1 diabetes, HTN, depre ssion, GREGORY, seizure disorder, end-stage renal disease on hemodialysis status pos t kidney transplant 05/27/2019. Endocrinology consulted for diabetes management in the setting of high-dose steroids. Patient developed end-stage renal disease secondary to his diabetes and was [facility] at dialysis 2017, initially peritoneal dialysis but more recently hemodialys is. Patient was admitted to the hospital for kidney transplant on 05/27/2019 and is now being treated with high-dose steroids and rapid taper. Patient diagnosed type 1 diabetes in [address] Soler in [place]. Patient previously managed with insulin pump, Medtronic 630 G with a Dexcom G5 using Humalog. According to care everywhere the patient has the following sett ings: Settings: Basal Rates: Time Rate (units/hour) 0000 to 0500 0.875 0500 to 1000 0.925 1000 to 1830 0.800 1830 to 0000 0.875 Bolus settings: Insulin/carb ratio: 1 units per 12 grams of carbs Insulin sensitivity: 45 Target: 120 mg/dl Active insulin time: 4 hours No past medical history on file. No past surgical history on file. No family history on file. Social History Socioeconomic History Marital status: Spouse name: Not on file Number of children: Not on file Years of education: Not on file Highest education level: Not on file Occupational History Not on file Social Needs Financial resource strain: Not on file Food insecurity: Worry: Not on file Inability: Not on file Transportation needs: Medical: Not on file Non-medical: Not on file Tobacco Use Smoking status: Former Smoker Packs/day: 2.00 Years: 30.00 Pack years: 60.00 Last attempt to quit: 12/17/2001 Years since quittin.4 Smokeless tobacco: Never Used Substance and Sexual Activity Alcohol use: Yes Comment: quit 15 years ago Drug use: Yes Comment: quit 15 years ago Sexual activity: Not on file Lifestyle Physical activity: Days per week: Not on file Minutes per session: Not on file Stress: Not on file Relationships Social connections: Talks on phone: Not on file Gets together: Not on file Attends synagogue service: Not on file Active member of club or organization: Not on file Attends meetings of clubs or organizations: Not on file Relationship status: Not on file Intimate partner violence: Fear of current or ex partner: Not on file Emotionally abused: Not on file Physically abused: Not on file Forced sexual activity: Not on file Other Topics Concern Not on file Social History Narrative Not on file Immunizations (includes history and patient reported): There is no immunization history on file for this patient. Allergies: Penicillins and Codeine Review of Systems: Constitutional: negative for fevers, chills Eyes: negative for visual disturbance Ears, nose, mouth, throat, and face: change in hearing Respiratory: negative for cough or SOB Cardiovascular: negative for chest pain, palpitations Gastrointestinal: negative for nausea, vomiting, abdominal pain Genitourinary:negative for hematuria Integument/breast: negative for rash Musculoskeletal:negative for myalgias and arthralgias Neurological: negative for headaches, dizziness and lightheadedness Endocrine: negative for heat or cold intolerance Physical Exam: General: Alert, cooperative, no distress, appears stated age Head: Normocephalic Eyes: No scleral icterus Neck: Supple, symmetrical Lungs: CTA Heart: RRR Abdomen: S, NT, + BS Skin: No rashes Neurologic: Alert Vital Signs: Last Filed In 24 Hours Vital Signs: 24 Hour Range BP: 144/54 (05/28 599) Temp: 36.4 C (97.5 F) (05/28 599) Pulse: 84 (05/28 599) Respirations: 16 PER MINUTE (05/28 599) SpO2: 97 % (05/28 599) SpO2 Pulse: 96 (05/27 1745) Height: 167.6 cm (66") (05/27 1051) BP: (98-167)/(41-99) Temp: [36.3 C (97.4 F)-36.7 C (98 F)] Pulse: [84-96] Respirations: [8 PER MINUTE-19 PER MINUTE] SpO2: [92 %-99 %] Intensity Pain Scale (Self Report): 2 (05/27/192001) Medications: No current facility-administered medications on file prior to encounter. Current Outpatient Medications on File Prior to Encounter Medication Sig Dispense Refill albuterol sulfate (PROAIR HFA) 90 mcg/actuation aerosol inhaler Inhale 2 puf fs by mouth into the lungs every 6 hours as needed for Wheezing or Shortness of Breath. Shake well before use. bumetanide (BUMEX) 2 mg tablet Take 2 mg by mouth twice daily. calcitriol (ROCALTROL) 0.5 mcg capsule Take 0.5 mcg by mouth every 48 hours. calcium acetate (PHOSLO) 667 mg capsule Take 4 capsules with meals and 2 wit h snacks docusate (COLACE) 100 mg capsule Take 100 mg by mouth twice daily as needed. fluoxetine (PROZAC) 40 mg capsule Take 40 mg by mouth daily. insulin pump -ASPART- Patients Own by [employer] Pump route Three times daily with meals and as needed. omeprazole DR(+) (PRILOSEC) 40 mg capsule Take 40 mg by mouth daily before b reakfast. pregabalin (LYRICA) 75 mg capsule Take 75 mg by mouth three times daily. tamsulosin (FLOMAX) 0.4 mg capsule Take 0.4 mg by mouth daily. Do not crush, chew or open capsules. Take 30 minutes following the same meal each day. traZODone (DESYREL) 100 mg tablet Take 100 mg by mouth at bedtime daily. Lab/Radiology/Other Diagnostic Tests: 24-hour labs: Results for orders placed or performed during the hospital encounter of 05/27/19 (from the past 24 hour(s)) POC GLUCOSE Collection Time: 05/27/19 10:51 AM Result Value Ref Range Glucose, POC 77 70 - 100 MG/DL CBC AND DIFF Collection Time: 05/27/19 11:06 AM Result Value Ref Range White Blood Cells 6.6 4.5 - 11.0 K/UL RBC 4.27 (L) 4.4 - 5.5 M/UL Hemoglobin 13.6 13.5 - 16.5 GM/DL Hematocrit 40.1 40 - 50 % MCV 93.8 80 - 100 FL MCH 31.8 26 - 34 PG MCHC 33.9 32.0 - 36.0 G/DL RDW 14.5 11 - 15 % Platelet Count 161 150 - 400 K/UL MPV 9.8 7 - 11 FL Neutrophils 73 41 - 77 % Lymphocytes 15 (L) 24 - 44 % Monocytes 9 4 - 12 % Eosinophils 2 0 - 5 % Basophils 1 0 - 2 % Absolute Neutrophil Count 4.90 1.8 - 7.0 K/UL Absolute Lymph Count 0.90 (L) 1.0 - 4.8 K/UL Absolute Monocyte Count 0.60 0 - 0.80 K/UL Absolute Eosinophil Count 0.10 0 - 0.45 K/UL Absolute Basophil Count 0.00 0 - 0.20 K/UL PROTIME INR (PT) Collection Time: 05/27/19 11:06 AM Result Value Ref Range INR 1.0 0.8 - 1.2 PTT (APTT) Collection Time: 05/27/19 11:06 AM Result Value Ref Range APTT 31.5 24.0 - 36.5 SEC COMPREHENSIVE METABOLIC PANEL Collection Time: 05/27/19 11:06 AM Result Value Ref Range Sodium 135 (L) 137 - 147 MMOL/L Potassium 3.5 3.5 - 5.1 MMOL/L Chloride 92 (L) 98 - 110 MMOL/L Glucose 92 70 - 100 MG/DL Blood Urea Nitrogen 43 (H) 7 - 25 MG/DL Creatinine 8.33 (H) 0.4 - 1.24 MG/DL Calcium 9.9 8.5 - 10.6 MG/DL Total Protein 7.7 6.0 - 8.0 G/DL Total Bilirubin 0.5 0.3 - 1.2 MG/DL Albumin 4.6 3.5 - 5.0 G/DL Alk Phosphatase 90 25 - 110 U/L AST (SGOT) 21 7 - 40 U/L CO2 29 21 - 30 MMOL/L ALT (SGPT) 19 7 - 56 U/L Anion Gap 14 (H) 3 - 12 eGFR Non 7 (L) >60 mL/min eGFR 8 (L) >60 mL/min LIPID PROFILE Collection Time: 05/27/19 11:06 AM Result Value Ref Range Cholesterol 142 <200 MG/DL Triglycerides 207 (H) <150 MG/DL HDL 29 (L) >40 MG/DL LDL 67 <100 mg/dL VLDL 41 MG/DL Non HDL Cholesterol 113 MG/DL HEMOGLOBIN A1C Collection Time: 05/27/19 11:06 AM Result Value Ref Range Hemoglobin A1C 7.9 (H) 4.0 - 6.0 % PARATHYROID HORMONE Collection Time: 05/27/19 11:06 AM Result Value Ref Range PTH Hormone 218.3 (H) 10 - 65 PG/ML TYPE & CROSSMATCH Collection Time: 05/27/19 11:06 AM Result Value Ref Range Units Ordered 0 Crossmatch Expires 05/30/2019 Record Check FOUND ABO/RH(D) A POS Antibody Screen NEG Electronic Crossmatch YES POC POTASSIUM Collection Time: 05/27/19 11:46 AM Result Value Ref Range Potassium-POC 3.3 (L) 3.5 - 5.1 MMOL/L POC GLUCOSE Collection Time: 05/27/19 12:59 PM Result Value Ref Range Glucose, POC 135 (H) 70 - 100 MG/DL POC GLUCOSE Collection Time: 05/27/19 1:59 PM Result Value Ref Range Glucose, POC 98 70 - 100 MG/DL POC GLUCOSE Collection Time: 05/27/19 3:01 PM Result Value Ref Range Glucose, POC 88 70 - 100 MG/DL CBC Collection Time: 05/27/19 4:38 PM Result Value Ref Range White Blood Cells 4.9 4.5 - 11.0 K/UL RBC 3.32 (L) 4.4 - 5.5 M/UL Hemoglobin 10.7 (L) 13.5 - 16.5 GM/DL Hematocrit 31.4 (L) 40 - 50 % MCV 94.6 80 - 100 FL MCH 32.2 26 - 34 PG MCHC 34.0 32.0 - 36.0 G/DL RDW 13.8 11 - 15 % Platelet Count 91 (L) 150 - 400 K/UL MPV 9.1 7 - 11 FL PTT (APTT) Collection Time: 05/27/19 4:38 PM Result Value Ref Range APTT 48.1 (H) 24.0 - 36.5 SEC POC GLUCOSE Collection Time: 05/27/19 6:38 PM Result Value Ref Range Glucose, POC 110 (H) 70 - 100 MG/DL POC GLUCOSE Collection Time: 05/27/19 8:02 PM Result Value Ref Range Glucose, POC 134 (H) 70 - 100 MG/DL POC GLUCOSE Collection Time: 05/27/19 9:09 PM Result Value Ref Range Glucose, POC 164 (H) 70 - 100 MG/DL CBC AND DIFF Collection Time: 05/27/19 9:25 PM Result Value Ref Range White Blood Cells 10.0 4.5 - 11.0 K/UL RBC 3.39 (L) 4.4 - 5.5 M/UL Hemoglobin 11.0 (L) 13.5 - 16.5 GM/DL Hematocrit 31.8 (L) 40 - 50 % MCV 94.0 80 - 100 FL MCH 32.4 26 - 34 PG MCHC 34.4 32.0 - 36.0 G/DL RDW 14.0 11 - 15 % Platelet Count 112 (L) 150 - 400 K/UL MPV 9.7 7 - 11 FL Neutrophils 97 (H) 41 - 77 % Lymphocytes 0 (L) 24 - 44 % Monocytes 2 (L) 4 - 12 % Eosinophils 0 0 - 5 % Basophils 1 0 - 2 % Absolute Neutrophil Count 9.60 (H) 1.8 - 7.0 K/UL Absolute Lymph Count 0.00 (L) 1.0 - 4.8 K/UL Absolute Monocyte Count 0.20 0 - 0.80 K/UL Absolute Eosinophil Count 0.00 0 - 0.45 K/UL Absolute Basophil Count 0.10 0 - 0.20 K/UL BASIC METABOLIC PANEL Collection Time: 05/27/19 9:25 PM Result Value Ref Range Sodium 132 (L) 137 - 147 MMOL/L Potassium 3.8 3.5 - 5.1 MMOL/L Chloride 97 (L) 98 - 110 MMOL/L CO2 22 21 - 30 MMOL/L Anion Gap 13 (H) 3 - 12 Glucose 146 (H) 70 - 100 MG/DL Blood Urea Nitrogen 43 (H) 7 - 25 MG/DL Creatinine 7.07 (H) 0.4 - 1.24 MG/DL Calcium 7.3 (L) 8.5 - 10.6 MG/DL eGFR Non 8 (L) >60 mL/min eGFR 10 (L) >60 mL/min HAPTOGLOBIN Collection Time: 05/27/19 9:25 PM Result Value Ref Range Haptoglobin 137 16 - 200 MG/DL LDH-LACTATE DEHYDROGENASE Collection Time: 05/27/19 9:25 PM Result Value Ref Range Lactate Dehydrogenase 231 (H) 100 - 210 U/L POC GLUCOSE Collection Time: 05/27/19 9:58 PM Result Value Ref Range Glucose, POC 124 (H) 70 - 100 MG/DL POC GLUCOSE Collection Time: 05/27/19 11:05 PM Result Value Ref Range Glucose, POC 137 (H) 70 - 100 MG/DL PTT (APTT) Collection Time: 05/27/19 11:10 PM Result Value Ref Range APTT 31.5 24.0 - 36.5 SEC POC GLUCOSE Collection Time: 05/28/19 12:08 AM Result Value Ref Range Glucose, POC 151 (H) 70 - 100 MG/DL POC GLUCOSE Collection Time: 05/28/19 2:06 AM Result Value Ref Range Glucose, POC 167 (H) 70 - 100 MG/DL POC GLUCOSE Collection Time: 05/28/19 3:11 AM Result Value Ref Range Glucose, POC 155 (H) 70 - 100 MG/DL POC GLUCOSE Collection Time: 05/28/19 4:01 AM Result Value Ref Range Glucose, POC 147 (H) 70 - 100 MG/DL CBC Collection Time: 05/28/19 4:10 AM Result Value Ref Range White Blood Cells 10.0 4.5 - 11.0 K/UL RBC 3.24 (L) 4.4 - 5.5 M/UL Hemoglobin 10.6 (L) 13.5 - 16.5 GM/DL Hematocrit 30.7 (L) 40 - 50 % MCV 94.8 80 - 100 FL MCH 32.7 26 - 34 PG MCHC 34.5 32.0 - 36.0 G/DL RDW 14.1 11 - 15 % Platelet Count 118 (L) 150 - 400 K/UL MPV 9.9 7 - 11 FL PTT (APTT) Collection Time: 05/28/19 4:10 AM Result Value Ref Range APTT 31.8 24.0 - 36.5 SEC MAGNESIUM Collection Time: 05/28/19 4:35 AM Result Value Ref Range Magnesium 1.7 1.6 - 2.6 mg/dL PHOSPHORUS Collection Time: 05/28/19 4:35 AM Result Value Ref Range Phosphorus 3.2 2.0 - 4.5 MG/DL BASIC METABOLIC PANEL Collection Time: 05/28/19 4:35 AM Result Value Ref Range Sodium 132 (L) 137 - 147 MMOL/L Potassium 3.8 3.5 - 5.1 MMOL/L Chloride 97 (L) 98 - 110 MMOL/L CO2 22 21 - 30 MMOL/L Anion Gap 13 (H) 3 - 12 Glucose 145 (H) 70 - 100 MG/DL Blood Urea Nitrogen 47 (H) 7 - 25 MG/DL Creatinine 7.34 (H) 0.4 - 1.24 MG/DL Calcium 7.3 (L) 8.5 - 10.6 MG/DL eGFR Non 8 (L) >60 mL/min eGFR 10 (L) >60 mL/min POC GLUCOSE Collection Time: 05/28/19 5:02 AM Result Value Ref Range Glucose, POC 126 (H) 70 - 100 MG/DL POC GLUCOSE Collection Time: 05/28/19 6:08 AM Result Value Ref Range Glucose, POC 132 (H) 70 - 100 MG/DL POC GLUCOSE Collection Time: 05/28/19 8:14 AM Result Value Ref Range Glucose, POC 120 (H) 70 - 100 MG/DL Glucose: (!) 145 (05/28/19 0435) POC Glucose (Download): (!) 132 (05/28/19 0608) Pertinent radiology reviewed. L OPERATOR Associated attestation - Yaw Morrison MD - 05/28/2019 11:24 AM MOGUL OPERATOR ATTESTATION I personally performed the loyola portions of the E/M visit, discussed case with re sident and concur with resident documentation of history, physical exam, assessm ent, and treatment plan unless otherwise noted. Staff name: Yaw Morrison MD Date: 05/28/2019 I explained because of his poor vision a pump would not be gonzalez in the hospital patient was in agreement We will continue to follow documented in this encounter Miscellaneous Notes * Patient Education - Kat Vasquez - 06/01/2019 1:44 PM MOGUL OPERATOR Pharmacy Transplant Medication Teaching This patient was provided with both verbal and written drug information for thei r transplant medications, including tacrolimus, mycophenolate and prednisone. I n addition, a medication calendar and pill box(s) were supplied for home use. D iscussion with the patient included: the medication regimen, dosing, monitoring, possible adverse effects, food/drug interactions to be aware of and OTC/herbal medication use. Emphasis was placed on the importance of medication compliance. The patient was also encouraged to contact the pharmacist with any further que stions. Kat Vasquez, PharmD Candidate L OPERATOR * Case Mgmt DC Plan - Kiara Viera - 06/01/2019 11:39 AM MOGUL OPERATOR Case Management Progress Note Discharge Planning Phase NAME:Virginia Pace :1 06/01/1969 AGE: 49 y.o. ADMISSION DATE: 05/27/2019 DAYS ADMITTED: LOS: 3 days Todays Date: 06/01/2019 Plan Pt to d/c to local lodging with 29/11 family support today. Interventions ? Support Support: Pt/Family Updates re:POC or DC Plan ? Info or Referral ? Discharge Planning Discharge Planning: OP HD or PD ALEX spoke with pt to update that insurance actually covered 14 nights for pt. Pt expressed gratitude and confirmed he had spoke with Medicaid MICHAEL Turner. ALEX pro vided contact information for [facility] and confirmation number. Pt is glad he will be able to d/c today and denies additional needs/concerns. [facility] [phone] -ALEX spoke with sales representative groceries. It has been booked [facility] [address] [facility] -[phone] -14 nights -Confirmation #: [id number] -In [place]'s name and just need ID ? Medication Needs o Financial ALEX provided pt with ESRD Medicare booklet and contact information to pt's local social security office. ALXE completed 2728 ESRD form and explained the purpose of the form to pt. ALEX explained that 2728 form to be sent to pt's local social sec urity office and that pt will need to contact social security directly to elect to enroll in coverage. ALEX had pt sign this form to notify Medicare that he has r eceived a kidney transplant. ? Legal ? Other Disposition ? Expected Discharge Date Expected Discharge Date: 06/01/19 Expected Discharge Time: 1600 ? Transportation Does the patient need discharge transport arranged?: No Transportation Name, Phone and Availability #1: , Pamela [phone] Does the patient use Medicaid Transportation?: No ? Next Level of Care (Acute Psych discharges only) ? Discharge Disposition Durable Medical Equipment No service has been selected for the patient. [facility] No service has been selected for the patient. [facility] No service has been selected for the patient. [facility] No service has been selected for the patient. Kiara Viera LMSW [phone] L OPERATOR * Case Mgmt DC Plan - Lizz Gordon RN - 06/01/2019 8:36 AM MOGUL OPERATOR Case Management Progress Note NAME:Virginia Pace :1 06/01/1969 AGE: 49 y.o. ADMISSION DATE: 05/27/2019 DAYS ADMITTED: LOS: 2 days Todays Date: 05/31/2019 Plan * Anticipate DC in the next few days to local lodging and setup of OP HD. Interventions ? Support Support: Pt/Family Updates re:POC or DC Plan * MOODY updated by Idania SABA that Dr. Palm believes pt will require OP HD while he stays locally for several weeks * KENNEDYM reviewed EMR and pt was active with home HD through [facility] in [place], [place]. NCM to send referral to [facility]. * Will continue to follow with Surgical team through DC. ? Info or Referral ? Discharge Planning Discharge Planning: OP HD or PD * OP HD referral faxed to [facility] P: / F: to set up local OP HD for ~2 wks post DC. Spoke to rosalina Ramírez with [facility] P: , x [phone] and she will be on t he lookout for the referral. Tentative plan is to attempt OP HD placement at [facility] O: / F: if they have an y temporary chair times. * MOODY received notification on 05/31/19 that [facility] does not have any immediate chair times available for a while. Desiree with [facility] stated she sent the referral to [facility] as it is the next closest [facility]. * MOODY received faxed notification on 06/01/19 that patient has been tentatively set up for OP HD at [facility] P: / F: [phone] at 11:00 AM starting 06/04/2019. Surgical team updated. *MOODY spoke to Tan with [facility]. He stated that Tosha in admiss ions was needing orders and treatment plan for this patient. NCM to assist and o btain what is needed as indicated. *HD flowsheets faxed to [facility] P: / F: ? Medication Needs ? Financial ? Legal ? Other Disposition ? Expected Discharge Date Expected Discharge Date: 05/31/19 Expected Discharge Time: 1600 ? Transportation Does the patient need discharge transport arranged?: No Transportation Name, Phone and Availability #1: Pamela [phone] Does the patient use Medicaid Transportation?: No ? Next Level of Care (Acute Psych discharges only) ? Discharge Disposition Durable Medical Equipment No service has been selected for the patient. [facility] Destination No service has been selected for the patient. Home Care No service has been selected for the patient. Dialysis/Infusion No service has been selected for the patient. Lizz Gordon RN, BSN Nurse Balloon SanderPlant Pathology Teacher / Surgical Non-Transplant Pager: L OPERATOR * Patient Education - Kat Vasquez - 05/31/2019 2:12 PM MOGUL OPERATOR Pharmacy Transplant Education The new immunosuppressive medication regimen for Virginia Pace was evaluate d, and the patient was educated on these medication(s). Regimen The medication(s) listed below have been appropriately prescribed for immunosupp ression following Kidney transplantation. Tacrolimus dose titrated based on trough goal Myfortic (mycophenolate sodium) 720 mg BID Prednisone taper off Transplant Synopsis Transplant date: 05/27/19 Induction immunosuppression: Thymo for steroid avoidance CMV status: D+/R- Viral prophylaxis: Valcyte (renally dosed) PCP prophylaxis: Bactrim (renally dosed) Education Virginia Pace was educated on the brand and generic medication names, as we ll as the medication class. The indication for treatment, dose, route, administr ation technique, frequency, and duration were discussed with the patient. The pa avery was educated on timely administration of therapy and management of missed doses. Instructions were given not to crush, chew, or split the tablets or capsu les. Appropriate storage and disposal directions were reviewed. The importance of adherence was discussed, and the patient was provided with too ls to promote adherence. Contraindications to therapy, safety precautions, and common side effects were d iscussed. The patient was instructed to seek medical attention immediately if e xperiencing signs of an allergic reaction, including but not limited to: a rash; hives; itching; red, swollen, blistered, or peeling skin with or without fever. Risk Evaluation and Mitigation Strategy (REMS) Assessment No REMS are required for any of the prescribed medications for this patient. REMS acknowledgement and documentation was completed with the patient and prescr iber prior to transplantation, and the patient was reminded of the importance of prevention while taking mycophenolate. A medication guide will be dis pensed with the medication. Safety Precautions The patient was counseled on the risk of infection and malignancy associated wit h all immunosuppressive medications. The patient was instructed to seek medical attention if experiencing any significant side effects and/or signs of an infect ion, malignancy, and/or rejection. Drug-Drug Interactions Interactions between the patient's immunosuppressive medication(s) and other med ications were assessed and reviewed with the patient. No new significant drug-dr ug or drug-food interactions were identified. The patient was instructed to speak with a health care provider before starting any new medications, including prescription, over the counter, natural/herbal pr oducts, and/or vitamins. Drug-Food Interactions The patient was counseled to avoid consuming grapefruit, grapefruit juice, pomeg ranate and pomegranate juice. While the medications can be taken without regard to food, the patient was encouraged to take the immunosuppressive medications w ith food for better tolerability. Adherence Medication adherence was emphasized for the prevention of organ rejection. The patient was provided with a pillbox and medication calendar to promote adherence . Follow-up The patient was provided with pharmacy contact information and encouraged to con tact a transplant pharmacist with any questions or concerns regarding the medica tion therapy. Questions Virginia Pace was given the opportunity to ask questions and did not have a ny questions at this time. Kat Vasquez, FarrahD Candidate L OPERATOR * Case Mgmt DC [place] - Kiara Viera - 05/31/2019 11:41 AM MOGUL OPERATOR Case Management Progress Note Discharge Planning Phase NAME:Vigrinia Pace :1 06/01/1969 AGE: 49 y.o. ADMISSION DATE: 05/27/2019 DAYS ADMITTED: LOS: 2 days Todays Date: 05/31/2019 Plan Pt anticipated to d/c to local lodging with 29/11 family support tomorrow. Interventions ? Support Support: Pt/Family Updates re:POC or DC Plan ALEX provided pt with information on the Renal Transplant Support Group that is he ld at the Transplant [facility] and the [facility] [place] [facility]. Pt denies needi ng a referral while inpatient. ALEX provided pt with "writing your donor family" p amphlet should pt ever be interested in writing to his donor family. ALEX explaine d the letter writing process and explained how letters are sent by the recipient s and then received by the donors. Pt expressed his gratitude for the donor and their family. Pt looks forward to writing a letter. ? Info or Referral ? Discharge Planning Discharge Planning: OP HD or PD Pt anticipated to d/c to local lodging tomorrow with outpatient dialysis. ALEX spoke with pt and regarding lodging options. Pt states they would prefer for [employer] to arrange a hotel and then they will attempts to transition to [facility] [employer] or [employer] after his benefit runs out. Pt is aware he will lik sandra d/c tomorrow. ALEX encouraged pt to reach out to secondary lodging options tod ay since they book quickly. SW to f/u with pt later today. ALEX f/u with pt and to update that request for lodging was submitted and the y will call them directly once confirmed. ALEX asked pt to reach out if they do no t hear by the end of the day. [employer] [phone] -ALEX spoke with sales representative groceries who has requested pt's stay and will call pt once a room is secured. Confirmation number is [id number]. ALEX provided my contact as a b ack up. ? Medication Needs o Financial ? Legal ? Other Disposition ? Expected Discharge Date Expected Discharge Date: 05/31/19 Expected Discharge Time: 1600 ? Transportation Does the patient need discharge transport arranged?: No Transportation Name, Phone and Availability #1: , Pamela [phone] Does the patient use Medicaid Transportation?: No ? Next Level of Care (Acute Psych discharges only) ? Discharge Disposition Durable Medical Equipment No service has been selected for the patient. [facility] Dest[facility] No service has been selected for the patient. [facility] Home Care No service has been selected for the patient. [facility] Dialysis/Infusion No service has been selected for the patient. Kiara Viera LMSW [phone] L OPERATOR * Case Mgmt DC Plan - Kiara Viera - 05/30/2019 9:38 AM MOGUL OPERATOR Case Management Progress Note Discharge Planning Phase NAME:Virginia Pace :1 06/01/1969 AGE: 49 y.o. ADMISSION DATE: 05/27/2019 DAYS ADMITTED: LOS: 1 day Todays Date: 05/30/2019 Plan Pt anticipated to d/c to local lodging with 24/ support once medically stable. Interventions ? Support ? Info or Referral ? Discharge Planning [facility] [phone] -Don't work on weekends, but if scheduled Tuesday for Tuesday would be able to do that. -SW to call on day of d/c, SW confirmed with sales representative [employer] that since it would be transplant d/c they would not need several days prior to d/c to arrange that it can occur same day. SW attempted to f/u with pt regarding lodging pt off unit in HD. ? Medication Needs o Financial ? Legal ? Other Disposition ? Expected Discharge Date Expected Discharge Date: 05/31/19 Expected Discharge Time: 1600 ? Transportation Does the patient need discharge transport arranged?: No Transportation Name, Phone and Availability #1: Pamela [phone] Does the patient use Medicaid Transportation?: No ? Next Level of Care (Acute Psych discharges only) ? Discharge Disposition Durable Medical Equipment No service has been selected for the patient. [facility] Dest[facility] No service has been selected for the patient. [facility] Home Care No service has been selected for the patient. [facility] Dialysis/Infusion No service has been selected for the patient. Kiara Viera LMSW [phone] L OPERATOR * Case Mgmt DC Plan - Kiara Viera - 05/29/2019 4:51 PM MOGUL OPERATOR Case Management Progress Note Transplant Phase NAME:Virginia Pace :1 06/01/1969 AGE: 49 y.o. ADMISSION DATE: 05/27/2019 DAYS ADMITTED: LOS: 0 days Todays Date: 05/29/2019 Plan Pt anticipated to d/c to local lodging with 24/ support once medically stable. Interventions ? Support Yue, Medicaid CM, -ALEX spoke with Yue -Mi request and justification, may cap out at 5 days and then can ret ry. -F/u appointments, time, who, and where -$81/night and set up for them, if they choose to set up self can reimburse -$25/day reimburse for food -Is usually supposed to be 125 miles from home, but shouldn't be problem -[phone] - can be paid caregiver again day after d/c even at hotel. ? Info or Referral ? Discharge Planning ? Medication Needs o Financial ? Legal ? Other Disposition ? Expected Discharge Date Expected Discharge Date: 05/31/19 Expected Discharge Time: 1600 ? Transportation Does the patient need discharge transport arranged?: No Transportation Name, Phone and Availability #1: Pamela [phone] Does the patient use Medicaid Transportation?: No ? Next Level of Care (Acute Psych discharges only) ? Discharge Disposition Durable Medical Equipment No service has been selected for the patient. Destination No service has been selected for the patient. Home Care No service has been selected for the patient. Dialysis/Infusion No service has been selected for the patient. Case Management Admission Assessment Transplant Phase NAME:Virginia Pace : AGE: 49 y.o. ADMISSION DATE: 05/27/2019 DAYS ADMITTED: LOS: 0 days Todays Date: 05/29/2019 Source of Information: Pt and Plan Plan: Case Management Assessment, Assist PRN with SW/NCM Services, Discharge Aguila nning for Home Anticipated, Transplant Assessment Pt is aware of the requirement to stay locally. Pt requested SW reach out to his [facility] CM Yue ([phone]) to discuss his lodging benefit. Pt's will be his primary caregiver, but his sons and niece will be able to assist if needed. Pt's Pamela will provide transport at d/c and for follow up appointments. SW provided my contact information for pt to reach out with any needs. Patient Address/Phone [address] [facility] [address] There are no phone numbers on file. Emergency Contact Extended Emergency Contact Information Primary Emergency Contact: Pamela Pace [facility] Relation: Spouse Healthcare Directive Healthcare Directive: No, patient does not have a healthcare directive Would patient like to fill out a (a new) Healthcare Directive?: No, patient decl ined Psych Advance Directive (Psych unit only): No, patient does not have a Psych Adv ance Directive Transportation Does the patient need discharge transport arranged?: No Transportation Name, Phone and Availability #1: Pamela [phone] Does the patient use Medicaid Transportation?: No Expected Discharge Date Expected Discharge Date: 05/31/19 Expected Discharge Time: 1600 Living Situation Prior to Admission ? Living Arrangements Type of Residence: Home, independent Living Arrangements: Spouse/significant other Bathroom Shower / Tub: Tub/Shower Unit, Walk-in Shower How many levels in the residence?: 1 Can patient live on one level if needed?: Yes Does residence have entry and/or side stairs?: Yes(3) Assistance needed prior to admit or anticipated on discharge: Yes Who provides assistance or could if needed?: Pt's Can support system provide 24/7 care if needed?: Yes ? Level of Function Prior level of function: Needs assist with ADLs Which ADLs require assistance?: Cooking, cleaning, medication management Who assists with ADLs?: Pamela ? Cognitive Abilities Cognitive Abilities: Alert and Oriented Financial Resources ? Coverage Primary Insurance: Medicare Secondary Insurance: Medicare Supplement(Pt has Medicare supplement and [employer]) Additional Coverage: RX(Rx coverage is [employer] part D. Pt denies any affordabilit y concerns) ? Source of Income Source Of Income: SSDI ? Financial Assistance Needed? Pt requesting assistance with lodging benefit. Psychosocial Needs ? Mental Health Mental Health History: Yes(Pt feels his symptoms are managed well and denies a n eed for additioanl supports.) Mental Health Provider: PCP Mental Health Symptoms: Feeling depressed ? Substance Use History Substance Use History Screen: In the past Comment: Pt discussed his history of substance use including meth and alcohol wh ich he quite at the age of 31, pt stopped smoking cigarettes 2 years later. ? Other Pt states that he is "doing amazing" regarding coping. Pt states he is feeling v rajeev grateful and hopeful. Current/Previous Services ? PCP Dania Barksdale, , ? Pharmacy [address] [address] [address] [facility] [address] [facility] [address] [address] [facility] [address] ? Durable Medical Equipment Durable Medical Equipment at home: CPAP/BiPAP, Roller Walker, Single Point Cane, Shower Chair ? Home Health Receiving home health: In the past Agency name: Cally HILTON Would patient use this agency again?: Yes ? Hemodialysis or Peritoneal Dialysis Undergoing hemodialysis or peritoneal dialysis: Yes Hemodialysis or Peritoneal Dialysis: Hemodialysis(Pt's first access site was cat h, is now AVF) Location: Home HD, through [facility] attending: Tuesday, Tuesday, , Tuesday Dialysis Start Time: 0830 Does patient sit for treatment?: Yes Transportation to treatment via: Spouse(NA) ? Tube/Enteral Feeds Receive tube/enteral feeds: No ? Infusion Receive infusions: In the past Where: Home Infusion company: Pt could not recall, possibly [facility] Would patient use this agency again?: Yes ? Private Duty Private duty help used: No ? Home and Community Based Services Home and community based services: Yes Agency name: Annalise JEANBS assistance hours/week: 49 hours/week Provider Schedule: 7 hours/day Services provided: Assistance with ADL ? Alexis Ramsay: N/A ? Hospice Hospice: No ? Outpatient Therapy PT: In the past When did patient receive care?: 2 years ago Name of rehab location/group: [facility] Would patient return for future services?: Yes OT: No DRAPERY MAKER: No ? Nursing Home Facility/Fpc SNF: No NH: No ? Inpatient Rehab IPR: No ? [facility] LTACH: No ? Acute Hospital Stay Acute Hospital Stay: In the past Was patient's stay within the last 30 days?: No Kiara EMY Viera [phone] L OPERATOR * Operative Report (DICTATED ONLY) - Melecio Nielsen MD - 05/27/2019 3:13 PM MOGUL OPERATOR [address] [address] PATIENT NAME: VIRGINIA PACE MR#/PT#: [id number] Page 2 OPERATIVE REPORT DATE OF OPERATION: 05/27/2019 SURGEON: Melecio Nielsen MD PREOPERATIVE DIAGNOSIS: End-stage renal disease, on hemodialysis. POSTOPERATIVE DIAGNOSIS: Same. OPERATIVE PROCEDURE: Back table preparation of donor right kidney. Elongation and reconstruction of the renal vein towards the IVC. Repair of the renal vein and biopsy site. Donor information: A 51-year-old , organ procured as a DCD with normal biop sy and renal vein injury at the hilum. ANESTHESIA: N/A DESCRIPTION AND FINDINGS OF OPERATIVE PROCEDURE: Organ brought with a renal pump. ABO and HLA compatibility were checked. Organ brought off the ice field. Perinephric tissue was trimmed off. Renal vein and artery were dissected. Small branchs clipped and ligated. There was a renal v ein injury adjacent to the hilum that was repaired. Ureter was normal size. Then, kidney checked for any leak, put back to the ice and ready for allograft. I was present and scrubbed for the entire case. ESTIMATED BLOOD LOSS: N/A SPECIMENS REMOVED: None. MD DAMARIS Whyte / MEDQ /[id number] cc: - Melecio Nielsen MD L OPERATOR * Operative Report (DICTATED ONLY) - Melecio Nielsen MD - 05/27/2019 3:12 PM MOGUL OPERATOR [address] [address] PATIENT NAME: VIRGINIA PACE MR#/PT#: [id number] Page 2 OPERATIVE REPORT DATE OF OPERATION: 05/27/2019 SURGEON: Melecio Nielsen MD PREOPERATIVE DIAGNOSIS: End-stage renal disease, on hemodialysis. POSTOPERATIVE DIAGNOSIS: Same. OPERATIVE PROCEDURE: donor right kidney transplant on the right side. Ureteroneocystostomy. Elongation and reconstruction of the renal vein towards the IVC. Doppler renal artery and vein ANESTHESIA: GET INDICATIONS FOR OPERATIVE PROCEDURE: This is a 49-year-old obese gentleman with history of type 1 diabetes, on insuli n pump, developed end-stage renal disease, on hemodialysis. He was listed. ABO and HLA compatible organ was available. The patient was called. Donor information: A 51-year-old , organ procured as a DCD, was right kidne y with normal anatomy and biopsy, but there was injury adjacent to the hilum of the renal vein. DESCRIPTION AND FINDINGS OF OPERATIVE PROCEDURE: After informed consent was signed by the patient and his family, risks and benef its of the procedure, which included, but not limited to bleeding, infection, gr aft failure, urinary leak, stroke, renal vein thrombosis were discussed with him and family in detail. He was taken to the operating room and placed in supine position. General anest hesia with endotracheal intubation was induced. Franks catheter was inserted by registered nurse. Abdomen and pelvis were prepped and draped in sterile surgica l fashion. At that point, a right lower quadrant curvilinear incision was performed, deepen ed with Bovie. External oblique fascia was incised. Rectus fascia preserved an d inferior epigastric vessel preserved as well and retroperitoneal structure was exposed with Bookwalter retractor. At that time, external iliac artery and vein were dissected. Then, aortic clamp applied on the external iliac vein. Venotomy was performed with blade number 1 1. Then, allograft was brought to the scene. First, we performed end-to-side a nastomosis between the elongation side of the renal vein towards the IVC to the external iliac vein of the recipient with Prolene number 5-0 running. After completion of that, then 2nd aortic clamp applied on the external iliac ar catrina. Arteriotomy was performed with blade number 11. We also used 4.0 aortic punch. Then, we performed end-to-side anastomosis between renal artery on aorti c patch to the external iliac artery of the recipient with Prolene 6-0 running. At that time, the kidney was perfused first with venous blood, then arterialized . Good perfusion noticed. There was 0.5 mm injury at the hilum of the renal ve in that was noticed and repaired with 7-0 Prolene. Then, kidney perfused well. Good Doppler signal was also noticed all over the k idneys as well as the renal artery and vein. Then, attention focused on the ureter. The donor ureter was trimmed and spatula smitha with good blood supply. The recipient bladder was infused with 200 mL of or tho solution while the Franks catheter was clamped. Detrusor muscle was incised. Then, we performed ureteroneocystostomy in Lich Gregoir fashion with PDS number 6-0 running after placing 6-Uzbek double-J stent. Anastomosis was partially tied with 4-0 Vicryl interrupted. Area irrigated. Meticulous hemostasis was ob tained. No surgical bleeding was noticed. Then, a CORI number 10 flat was placed around the kidney. All counts were correct ed by physician support coordinator times 3 including needle, laps, and instruments. The fascia wa s closed with PDS number 1 nonlooped times 1, extended to subcu and skin closed with maria r. Drain anchored. Dry dressing was placed. He tolerated, extubate d in stable condition, transferred to the recovery room, then postop Doppler edgar l be obtained. I was present and scrubbed for the entire case. Total cold ischemic time for this case was 19 hours. Total warm ischemic time was 33 minutes. Total operative time was 1 hour 30 minutes. Distance between UPJ and the bladder anastomosis was 5 cm. ESTIMATED BLOOD LOSS: < 100ml SPECIMENS REMOVED: None. MD DAMARIS Whyte / MEDQ /[id number] cc: - Melecio Nielsen MD L OPERATOR * Operative Report (Direct Entry) - Melecio Nielsen MD - 05/27/2019 12:27 PM MOGUL OPERATOR OPERATIVE REPORT Name: Virginia Pace is a 49 y.o. male : 1970 DATE OF OPERATION: 05/27/2019 Surgeon(s) and Role: Melecio Nielsen MD Primary Preoperative Diagnosis: ESRD Post op diagnosis The same Procedure(s): ALLOTRANSPLANTATION KIDNEY FROM NON LIVING DONOR WITHOUT RECIPIENT NEPHRECTOMY Anesthesia Type: General Description and Findings of Operative Procedure: donor renal vein injury at the hilum Estimated Blood Loss: 100 ml Specimen(s) Removed/Disposition: No specimens i L OPERATOR documented in this encounter Plan of Treatment Care Team Description Date Type Specialty Berta Harrison MD [address] [place], [place] [id number] Doroteo Enamorado MD [address] [place], [place] [id number] 10/02/2019 Hospital Radiology Encounter Order Schedule Name Type Priority Associated Diag noses ONE TIME for 1 Occurrences starting 05/09 until 05/27/2019 ECG 12-LEAD ECG STAT documented as of this encounter Goals Goal Patient Associated Recent Progress Patient-Stat Aut hor Goal Type Problems ed? Recover from illness [facility] Rajani Ac RN documented as of this encounter Procedures Comments Procedure Name Priority Date/Time Associated Diag nosis HC CREATININE-FLUID Routine 06/05/2019 Kidney tra nsplanted 9:20 AM MOGUL OPERATOR HC TRIGLYCERIDE-FLUID Routine 06/05/2019 Kidney t ransplanted 9:20 AM MOGUL OPERATOR HC CELL COUNT Routine 06/05/2019 Kidney transpla nted W/DIFF-FLUIDS 9:20 AM MOGUL OPERATOR POC GLUCOSE 06/01/2019 12:29 PM MOGUL OPERATOR POC GLUCOSE 06/01/2019 8:37 AM MOGUL OPERATOR HC FK 506 Routine 06/01/2019 4:20 AM MOGUL OPERATOR HC PTT(APTT) STAT 06/01/2019 4:20 AM MOGUL OPERATOR HC CBC,AUTOMATED Routine 06/01/2019 4:20 AM MOGUL OPERATOR HC PHOSPHOROUS, SERUM Routine 06/01/2019 4:20 AM MOGUL OPERATOR HC MAGNESIUM Routine 06/01/2019 4:20 AM MOGUL OPERATOR HC BASIC METABOLIC PANEL Routine 06/01/2019 4:20 AM MOGUL OPERATOR POC GLUCOSE 05/31/2019 9:15 PM MOGUL OPERATOR POC GLUCOSE 05/31/2019 5:59 PM MOGUL OPERATOR HC PTT(APTT) STAT 05/31/2019 4:40 PM MOGUL OPERATOR POC GLUCOSE 05/31/2019 12:09 PM MOGUL OPERATOR POC GLUCOSE 05/31/2019 8:13 AM MOGUL OPERATOR HC FK 506 05/31/2019 4:23 AM MOGUL OPERATOR HC PTT(APTT) 05/31/2019 4:23 AM MOGUL OPERATOR HC CBC,AUTOMATED Routine 05/31/2019 4:23 AM MOGUL OPERATOR HC PHOSPHOROUS, SERUM Routine 05/31/2019 4:23 AM MOGUL OPERATOR HC MAGNESIUM Routine 05/31/2019 4:23 AM MOGUL OPERATOR HC BASIC METABOLIC PANEL Routine 05/31/2019 4:23 AM MOGUL OPERATOR TACROLIMUS LEVEL(FK506) Routine 05/31/2019 4:00 AM MOGUL OPERATOR POC GLUCOSE 05/30/2019 10:47 PM MOGUL OPERATOR POC GLUCOSE 05/30/2019 7:34 PM MOGUL OPERATOR HC PTT(APTT) STAT 05/30/2019 6:53 PM MOGUL OPERATOR POC GLUCOSE 05/30/2019 6:43 PM MOGUL OPERATOR POC GLUCOSE 05/30/2019 3:06 PM MOGUL OPERATOR HEMODIALYSIS DATE Routine 05/30/2019 12:55 PM MOGUL OPERATOR HEMODIALYSIS INPATIENT Routine 05/30/2019 12:55 PM MOGUL OPERATOR POC GLUCOSE 05/30/2019 9:41 AM MOGUL OPERATOR HC FK 506 Routine 05/30/2019 4:00 AM MOGUL OPERATOR HC 25-OH VITAMIN D Routine 05/30/2019 4:00 AM MOGUL OPERATOR HC PTT(APTT) 05/30/2019 4:00 AM MOGUL OPERATOR HC CBC,AUTOMATED Routine 05/30/2019 4:00 AM MOGUL OPERATOR HC PHOSPHOROUS, SERUM Routine 05/30/2019 4:00 AM MOGUL OPERATOR HC MAGNESIUM Routine 05/30/2019 4:00 AM MOGUL OPERATOR HC BASIC METABOLIC PANEL Routine 05/30/2019 4:00 AM MOGUL OPERATOR CHEST SINGLE VIEW STAT 05/30/2019 2:32 AM MOGUL OPERATOR HC PTT(APTT) STAT 05/29/2019 11:14 PM MOGUL OPERATOR POC GLUCOSE 05/29/2019 10:06 PM MOGUL OPERATOR POC GLUCOSE 05/29/2019 5:58 PM MOGUL OPERATOR AR BLOOD SMEAR PERIPHERAL Routine 05/29/2019 INTERP PHYS W/WRIT REPORT 5:04 PM MOGUL OPERATOR HC PTT(APTT) STAT 05/29/2019 5:04 PM MOGUL OPERATOR HC LD(LDH;LACTIC Routine 05/29/2019 DEHYDROGENASE) 5:04 PM MOGUL OPERATOR HC HAPTOGLOBIN;QUANT Routine 05/29/2019 5:04 PM MOGUL OPERATOR POC GLUCOSE 05/29/2019 2:33 PM MOGUL OPERATOR POC GLUCOSE 05/29/2019 12:29 PM MOGUL OPERATOR HC PTT(APTT) STAT 05/29/2019 11:15 AM MOGUL OPERATOR POC GLUCOSE 05/29/2019 8:02 AM MOGUL OPERATOR HC FK 506 Add on 05/29/2019 4:48 AM MOGUL OPERATOR HC PTT(APTT) 05/29/2019 4:48 AM MOGUL OPERATOR HC CBC,AUTOMATED Routine 05/29/2019 4:48 AM MOGUL OPERATOR HC PHOSPHOROUS, SERUM Routine 05/29/2019 4:48 AM MOGUL OPERATOR HC MAGNESIUM Routine 05/29/2019 4:48 AM MOGUL OPERATOR HC BASIC METABOLIC PANEL Routine 05/29/2019 4:48 AM MOGUL OPERATOR HC PTT(APTT) STAT 05/28/2019 11:04 PM MOGUL OPERATOR POC GLUCOSE 05/28/2019 9:34 PM MOGUL OPERATOR HC PTT(APTT) STAT 05/28/2019 5:50 PM MOGUL OPERATOR BASIC METABOLIC PANEL STAT 05/28/2019 5:50 PM MOGUL OPERATOR POC GLUCOSE 05/28/2019 5:14 PM MOGUL OPERATOR US KIDNEY TRANSPLANT STAT 05/28/2019 2:58 PM MOGUL OPERATOR POC GLUCOSE 05/28/2019 12:33 PM MOGUL OPERATOR HC PTT(APTT) STAT 05/28/2019 11:31 AM MOGUL OPERATOR POC GLUCOSE 05/28/2019 10:11 AM MOGUL OPERATOR POC GLUCOSE 05/28/2019 8:14 AM MOGUL OPERATOR POC GLUCOSE 05/28/2019 6:08 AM MOGUL OPERATOR POC GLUCOSE 05/28/2019 5:02 AM MOGUL OPERATOR HC PHOSPHOROUS, SERUM Routine 05/28/2019 4:35 AM MOGUL OPERATOR HC MAGNESIUM Routine 05/28/2019 4:35 AM MOGUL OPERATOR HC BASIC METABOLIC PANEL Routine 05/28/2019 4:35 AM MOGUL OPERATOR HC PTT(APTT) STAT 05/28/2019 4:10 AM MOGUL OPERATOR HC CBC,AUTOMATED Routine 05/28/2019 4:10 AM MOGUL OPERATOR POC GLUCOSE 05/28/2019 4:01 AM MOGUL OPERATOR POC GLUCOSE 05/28/2019 3:11 AM MOGUL OPERATOR POC GLUCOSE 05/28/2019 2:06 AM MOGUL OPERATOR POC GLUCOSE 05/28/2019 12:08 AM MOGUL OPERATOR HC PTT(APTT) STAT 05/27/2019 11:10 PM MOGUL OPERATOR POC GLUCOSE 05/27/2019 11:05 PM MOGUL OPERATOR POC GLUCOSE 05/27/2019 9:58 PM MOGUL OPERATOR HC DRUG INDUCED PLAT AB STAT 05/27/2019 9:25 PM MOGUL OPERATOR HC CBC W/ AUTOMATED DIFF Routine 05/27/2019 9:25 PM MOGUL OPERATOR HC LD(LDH;LACTIC STAT 05/27/2019 DEHYDROGENASE) 9:25 PM MOGUL OPERATOR HC HAPTOGLOBIN;QUANT STAT 05/27/2019 9:25 PM MOGUL OPERATOR HC BASIC METABOLIC PANEL Routine 05/27/2019 9:25 PM MOGUL OPERATOR CONSULT IV THERAPY TEAM STAT 05/27/2019 9:10 PM MOGUL OPERATOR POC GLUCOSE 05/27/2019 9:09 PM MOGUL OPERATOR POC GLUCOSE 05/27/2019 8:02 PM MOGUL OPERATOR CONSULT IV THERAPY TEAM STAT 05/27/2019 7:46 PM MOGUL OPERATOR POC GLUCOSE 05/27/2019 6:38 PM MOGUL OPERATOR HC PTT(APTT) 05/27/2019 4:38 PM MOGUL OPERATOR CBC 05/27/2019 4:38 PM MOGUL OPERATOR CONSULT IV THERAPY TEAM STAT 05/27/2019 4:17 PM MOGUL OPERATOR US KIDNEY TRANSPLANT STAT 05/27/2019 3:55 PM MOGUL OPERATOR POC GLUCOSE 05/27/2019 3:01 PM MOGUL OPERATOR POC GLUCOSE 05/27/2019 1:59 PM MOGUL OPERATOR POC GLUCOSE 05/27/2019 12:59 PM MOGUL OPERATOR ALLOTRANSPLANTATION 05/27/2019 KIDNEY FROM NON LIVING 11:53 AM MOGUL OPERATOR DONOR WITHOUT RECIPIENT NEPHRECTOMY HC POTASSIUM, POC 05/27/2019 11:46 AM MOGUL OPERATOR CHEST 2 VIEWS Routine 05/27/2019 11:40 AM MOGUL OPERATOR HC PTH Routine 05/27/2019 11:06 AM MOGUL OPERATOR HC DONNA ARCE CAPSID AG Routine 05/27/2019 IGG 11:06 AM MOGUL OPERATOR HC CMV TITER IGM Routine 05/27/2019 11:06 AM MOGUL OPERATOR HC CMV IGG Routine 05/27/2019 11:06 AM MOGUL OPERATOR HC PTT(APTT) Routine 05/27/2019 11:06 AM MOGUL OPERATOR HC PT(INR) Routine 05/27/2019 11:06 AM MOGUL OPERATOR HC CBC W/ AUTOMATED DIFF STAT 05/27/2019 11:06 AM MOGUL OPERATOR HC ABO GROUP 05/27/2019 11:06 AM MOGUL OPERATOR HC HEMOGLOBIN A1C Routine 05/27/2019 11:06 AM MOGUL OPERATOR HC Routine 05/27/2019 LIPID-5:CHOL/TRG/HDL/LDL+ 11:06 AM MOGUL OPERATOR VLDL HC COMPREHENSIVE STAT 05/27/2019 METABOLIC PANEL 11:06 AM MOGUL OPERATOR POC GLUCOSE 05/27/2019 10:51 AM MOGUL OPERATOR TELEMETRY STRIPS-SCAN 05/27/2019 12:00 AM MOGUL OPERATOR documented in this encounter Results * DRAIN FLUID TRIGLYCERIDES (06/05/2019 9:20 AM MOGUL OPERATOR) Drain Fluid 16Comment: Chyle leakage mg/dL [facility] IN LAB Triglycerides suggested by triglycerides >110 mg/dL Specimen Fluid Performing Organization Address [facility] one Number MAIN LAB [address] [place] [address] * DRAIN FLUID CREATININE (06/05/2019 9:20 AM MOGUL OPERATOR) Drain Fluid 7.01 mg/dL MAIN LAB Creatinine Comment: Body fluid to serum creatinine ratios >1.0 suggest the specimen may be contaminated with urine Specimen Drainage Performing Organization Address [facility] Ph one Number MAIN LAB [address] [place] [address] * CELL COUNT W/DIFF-FLUIDS (06/05/2019 9:20 AM MOGUL OPERATOR) White Blood 120 /UL [facility] MAIN LAB Cells,Fluid Red Blood 2,700 /UL [facility] MAIN LAB Cells,Fluid Segmented 82 % [facility] MAIN LAB Neutrophils, Fluid Lymphocytes,Flu 16 % [facility] MAIN LAB id Monocyte/Histo, 2 % [facility] MAIN LAB Fluid Fluid Source MISC FLUID [facility] MAIN LAB Pathology NEGATIVE FOR MALIGNANT CELLS [facility] MAIN LAB Interpretation, Fluid Pathologist INTERPRETED BY BRADLEY TAYLOR MAI N LAB Signature Shruthi Pathologist By the PATH SIGNATURE ABOVE, Robert TAYLOR MAI N LAB Signature attest that I have personal ly formulated the final interpretation expressed in this report and that the above diagnosis is based upon my examination of the slides and/or other material indicated in this report. Specimen Fluid - Misc Fluid Performing Organization Address [facility] one Number MAIN LAB [address] [place] [address] * POC GLUCOSE (06/01/2019 12:29 PM MOGUL OPERATOR) Glucose, POC 175 (H) 70 - 100 MG/DL MAIN LAB Specimen Performing Organization Address [facility] one Number MAIN LAB [address] [place] [address] * POC GLUCOSE (06/01/2019 8:37 AM MOGUL OPERATOR) Glucose, POC 213 (H) 70 - 100 MG/DL MAIN LAB Specimen Performing Organization Address [facility] one Number MAIN LAB [address] [place] [address] * PTT (APTT) (06/01/2019 4:20 AM MOGUL OPERATOR) APTT 50.5 (H) 24.0 - 36.5 SEC [facility] LAB Specimen Blood Performing Organization Address [facility] one Number MAIN LAB [address] [place] [address] * PHOSPHORUS (06/01/2019 4:20 AM MOGUL OPERATOR) Phosphorus 5.3 (H)Comment: NOTE NEW 2.0 - 4.5 MG/DL [facility] LAB REFERENCE RANGES Specimen Blood Performing Organization Address [facility] one Number [facility] LAB [address] [place] [address] * MAGNESIUM (06/01/2019 4:20 AM MOGUL OPERATOR) Magnesium 2.1 1.6 - 2.6 mg/dL MAIN LAB Specimen Blood Performing Organization Address [facility] one Number MAIN LAB [address] [place] [address] * CBC (06/01/2019 4:20 AM MOGUL OPERATOR) White Blood 4.4 (L) 4.5 - 11.0 K/UL [facility] LAB Cells RBC 3.06 (L) 4.4 - 5.5 M/UL [facility] LAB Hemoglobin 9.9 (L) 13.5 - 16.5 GM/DL [facility] MAIN LAB Hematocrit 28.9 (L) 40 - 50 % [facility] MAIN LAB MCV 94.2 80 - 100 FL [facility] MAIN LAB MCH 32.2 26 - 34 PG [facility] MAIN LAB MCHC 34.2 32.0 - 36.0 G/DL MAIN LAB RDW 14.4 11 - 15 % [facility] MAIN LAB Platelet Count 100 (L) 150 - 400 K/UL [facility] MAIN LAB MPV 9.8 7 - 11 FL [facility] MAIN LAB Specimen Blood Performing Organization Address [facility] Ph one Number MAIN LAB [address] [place] [address] * BASIC METABOLIC PANEL (06/01/2019 4:20 AM MOGUL OPERATOR) Sodium 138 137 - 147 MMOL/L [facility] MAIN LAB Potassium 3.8 3.5 - 5.1 MMOL/L [facility] MAIN LAB Chloride 99 98 - 110 MMOL/L [facility] MAIN [facility] CO2 26 21 - 30 MMOL/L [facility] MAIN LAB Anion Gap 13 (H) 3 - 12 [facility] MAIN LAB Glucose 216 (H) 70 - 100 MG/DL [facility] MAIN LAB Blood Urea 63 (H) 7 - 25 MG/DL [facility] MAIN LAB Nitrogen Creatinine 6.80 (H) 0.4 - 1.24 MG/DL [facility] MAIN LAB Calcium 8.3 (L) 8.5 - 10.6 MG/DL [facility] MAIN LAB eGFR Non 9 (L) >60 mL/min [facility] MAIN LAB Comment: [place] The eGFR is not validated f or use in drug dosing adjustments. Continue to use estimated creatinine clearance per dosing reference text. Please contact the Clinical Pharmacist for questions. eGFR 11 (L) >60 mL/min [facility] MAIN LAB [place] Comment: The eGFR is not validated for use in drug dosing adjustments. Continue to use estimated creatinine clearance per dosing reference text. Please contact the Clinical Pharmacist for questions. Specimen Blood Performing Organization Address [facility] one Number MAIN LAB [address] [place] [address] * TACROLIMUS LEVEL([id number]) (06/01/2019 4:20 AM MOGUL OPERATOR) Tacrolimus 11.8 2 - 15 NG/ML MAIN LAB Comment: Target concentrations vary by type of transplant, patient response, concomitant immunosuppression and post-transplant time interval. Test was performed on whole blood using [employer] reagent and a [employer] AU analyzer. Specimen Blood Performing Organization Address [facility] one Number MA[facility] LAB [address] [place] [address] * POC GLUCOSE (05/31/2019 9:15 PM MOGUL OPERATOR) Glucose, POC 177 (H) 70 - 100 MG/DL [facility] MAIN LAB Specimen Performing Organization Address [facility] one Number MAIN LAB [address] [place] [address] * POC GLUCOSE (05/31/2019 5:59 PM MOGUL OPERATOR) Glucose, POC 196 (H) 70 - 100 MG/DL MAIN LAB Specimen Performing Organization Address [facility] Ph one Number MAIN LAB [address] [place] [address] * PTT (APTT) (05/31/2019 4:40 PM MOGUL OPERATOR) APTT 102.1 (H) 24.0 - 36.5 SEC MAIN LAB Specimen Blood Performing Organization Address [facility] one Number MAIN LAB [address] [place] [address] * POC GLUCOSE (05/31/2019 12:09 PM MOGUL OPERATOR) Glucose, POC 183 (H) 70 - 100 MG/DL MAIN LAB Specimen Performing Organization Address [facility] one Number MAIN LAB [address] [place] [address] * POC GLUCOSE (05/31/2019 8:13 AM MOGUL OPERATOR) Glucose, POC 133 (H) 70 - 100 MG/DL MAIN LAB Specimen Performing Organization Address [facility] one Number MAIN LAB [address] [place] [address] * PTT (APTT) (05/31/2019 4:23 AM MOGUL OPERATOR) APTT 43.4 (H) 24.0 - 36.5 SEC MAIN LAB Specimen Performing Organization Address [facility] one Number MAIN LAB [address] [place] [address] * TACROLIMUS LEVEL([id number]) (05/31/2019 4:23 AM MOGUL OPERATOR) Tacrolimus 16.2 (HH) 2 - 15 NG/ML [facility] LAB Comment: CRITICAL VALUE CALLED TO AND READ BACK BY/TIME/TECH JAIME CABALLERO at 05/31/2019 11:02:55 by 1025 Target concentrations vary by type of transplant, patient response, concomitant immunosuppression and post-transplant time interval. Test was performed on whole blood using Inter[employer] QMS reagent and a [employer] AU analyzer. Specimen Performing Organization Address [facility] one Number MAIN LAB [address] [place] [address] * PHOSPHORUS (05/31/2019 4:23 AM MOGUL OPERATOR) [facility] Phosphorus 5.0 (H)Comment: NOTE NEW 2.0 - 4.5 MG/DL [facility] LAB REFERENCE RANGES Specimen Blood Performing Organization Address [facility] one Number MAIN LAB [address] [place] [id number] * MAGNESIUM (05/31/2019 4:23 AM MOGUL OPERATOR) [facility] Magnesium 2.2Comment: MODERATE HEMOLYSIS 1.6 - 2.6 mg/dL [facility] LAB Specimen Blood Performing Organization Address [facility] one Number MAIN LAB [address] [place] [address] * CBC (05/31/2019 4:23 AM MOGUL OPERATOR) [facility] White Blood 3.4 (L) 4.5 - 11.0 K/UL [facility] LAB Cells RBC 2.93 (L) 4.4 - 5.5 M/UL [facility] Hemoglobin 9.6 (L) 13.5 - 16.5 GM/DL [facility] LAB Hematocrit 27.3 (L) 40 - 50 % [facility] MCV 93.1 80 - 100 FL [facility] MCH 32.8 26 - 34 PG [facility] MCHC 35.2 32.0 - 36.0 G/DL [facility] RDW 14.7 11 - 15 % [facility] Platelet Count 135 (L) 150 - 400 K/UL [facility] MPV 9.7 7 - 11 FL [facility] LAB Specimen Blood Performing Organization Address [facility] one Number MAIN LAB [address] [place] [address] * BASIC METABOLIC PANEL (05/31/2019 4:23 AM MOGUL OPERATOR) Pathologist [facility] Sodium 138 137 - 147 MMOL/L MAIN LAB Potassium 4.1Comment: MODERATE HEMOLYSIS 3.5 - 5.1 MMOL/ L MAIN LAB Chloride 100 98 - 110 MMOL/L MAIN LAB CO2 27 21 - 30 MMOL/L MAIN LAB Anion Gap 11 3 - 12 MAIN LAB Glucose 121 (H) 70 - 100 MG/DL MAIN LAB Blood Urea 50 (H) 7 - 25 MG/DL MAIN LAB Nitrogen Creatinine 5.98 (H) 0.4 - 1.24 MG/DL MAIN LAB Calcium 8.0 (L) 8.5 - 10.6 MG/DL MAIN LAB eGFR Non 10 (L) >60 mL/min MAIN LAB Comment: [place] The eGFR is not validated f or use in drug dosing adjustments. Continue to use estimated creatinine clearance per dosing reference text. Please contact the Clinical Pharmacist for questions. eGFR 12 (L) >60 mL/min MAIN LAB [place] Comment: The eGFR is not validated for use in drug dosing adjustments. Continue to use estimated creatinine clearance per dosing reference text. Please contact the Clinical Pharmacist for questions. Specimen Blood Performing Organization Address [facility] Number MA[facility] LAB [address] [place] [address] * TACROLIMUS LEVEL([id number]) (05/31/2019 4:00 AM MOGUL OPERATOR) Pathologist [facility] Tacrolimus CANCELED BY LAB SYSTEM 2 - 15 NG/ML MAIN LAB Specimen Blood Performing Organization Address [facility] one Number MAIN LAB [address] [place] [address] * POC GLUCOSE (05/30/2019 10:47 PM MOGUL OPERATOR) Pathologist [facility] Glucose, POC 231 (H) 70 - 100 MG/DL MAIN LAB Specimen Performing Organization Address [facility] one Number MAIN LAB [address] [place] [address] * POC GLUCOSE (05/30/2019 7:34 PM MOGUL OPERATOR) Pathologist [facility] Glucose, POC 241 (H) 70 - 100 MG/DL MAIN LAB Specimen Performing Organization Address [facility] one Number MAIN LAB [address] [place] [address] * PTT (APTT) (05/30/2019 6:53 PM MOGUL OPERATOR) APTT 80.7 (H) 24.0 - 36.5 SEC MAIN LAB Specimen Blood Performing Organization Address [facility] one Number MAIN LAB [address] [place] [address] * POC GLUCOSE (05/30/2019 6:43 PM MOGUL OPERATOR) Glucose, POC 273 (H) 70 - 100 MG/DL MAIN LAB Specimen Performing Organization Address [facility] one Number MAIN LAB [address] [place] [address] * POC GLUCOSE (05/30/2019 3:06 PM MOGUL OPERATOR) Glucose, POC 146 (H) 70 - 100 MG/DL MAIN LAB Specimen Performing Organization Address [facility] one Number MAIN LAB [address] [place] [address] * HEMODIALYSIS INPATIENT (05/30/2019 12:55 PM MOGUL OPERATOR) Narrative Performed At Segundo Mahajan RN 05/30/2019 3 :05 PM Report received from Primary Care lew SANDOVAL HD RN at 1030am. Pt arrived via bed from [facility] to nbp, oxcemitry, and cardiac monitoring. Pt ID Verified with Elena SANDOVAL. Co nsent signed. Labs and Orders Reviewed. Access Used: JYOTSNA AVF. Both A & V cannulation sites accessed o n 1st attempt without difficulty. Access needles secured and dressed with paper tape. See Hemodialysis Orders below: TX START TIME: 1025am. UF Profile u sed: 11. Bath used: 3K. Lines and access secure In view and int act. Face uncovered and in view. Dr. Palm at bedside at around 1100am. TX END TIME: 1430. Net UF: 3048ml. End Weight: 103.6kgs by bed scale. Post tx, blood rinsed back to Pt. Pt tolerated the treatment well. Pt without complaint post treatment. [place] pulled one at at time, hemostas is achieved in less than 5 min on each cannulation site. Access sites dressed with gauze and pap er tape. Report given to Primary Care Leah SANDOVAL at around 1500. Pt placed in transportation at 1430 and left unit at 1450 via bed. See Dialysis Flowsheet and MAR for deta ils. * HEMODIALYSIS DATE (05/30/2019 12:55 PM MOGUL OPERATOR) Narrative Performed At Segundo Mahajan RN 05/30/2019 3 :05 PM Report received from Primary Care lew SANDOVAL HD RN at 1030am. Pt arrived via bed from [facility] and [facility] to nbp, oxcemitry, and cardiac monitoring. Pt ID Verified with Elena SANDOVAL. Co nsent signed. Labs and Orders Reviewed. Access Used: JYOTSNA AVF. Both A & V cannulation sites accessed o n 1st attempt without difficulty. Access needles secured and dressed with paper tape. See Hemodialysis Orders below: [place] START TIME: 1025am. UF Profile u sed: 11. Bath used: 3K. Lines and access secure In view and int act. Face uncovered and in view. Dr. Palm at bedside at around 1100am. TX END TIME: 1430. Net UF: 3048ml. End Weight: 103.6kgs by bed scale. Post tx, blood rinsed back to Pt. Pt tolerated the treatment well. Pt without complaint post treatment. [place] pulled one at at time, hemostas is achieved in less than 5 min on each cannulation site. Access sites dressed with gauze and pap er tape. Report given to Primary Care Leah SANDOVAL at around 1500. Pt placed in transportation at 1430 and left unit at 1450 via bed. See Dialysis Flowsheet and MAR for deta ils. * POC GLUCOSE (05/30/2019 9:41 AM MOGUL OPERATOR) Glucose, POC 259 (H) 70 - 100 MG/DL MAIN LAB Specimen Performing Organization Address [facility] Ph one Number MAIN LAB [address] [place] [address] * PTT (APTT) (05/30/2019 4:00 AM MOGUL OPERATOR) APTT 60.5 (H) 24.0 - 36.5 SEC MAIN LAB Specimen Performing Organization Address [facility] Ph one Number MAIN LAB [address] [place] [address] * TACROLIMUS LEVEL([id number]) (05/30/2019 4:00 AM MOGUL OPERATOR) Tacrolimus 15.7 (H) 2 - 15 NG/ML [facility] MAIN LAB Comment: Target concentrations vary by type of transplant, patient response, concomitant immunosuppression and post-transplant time interval. Test was performed on whole blood using Inter[employer] QMS reagent and a [employer] AU analyzer. Specimen Blood Performing Organization Address [facility] Ph one Number MAIN LAB [address] [place] [address] * BASIC METABOLIC PANEL (05/30/2019 4:00 AM MOGUL OPERATOR) Sodium 131 (L) 137 - 147 MMOL/L [facility] MAIN LAB Potassium 3.8 3.5 - 5.1 MMOL/L [facility] MAIN LAB Chloride 96 (L) 98 - 110 MMOL/L [facility] MAIN LAB CO2 19 (L) 21 - 30 MMOL/L [facility] MAIN LAB Anion Gap 16 (H) 3 - 12 [facility] MAIN LAB Glucose 158 (H) 70 - 100 MG/DL [facility] MAIN LAB Blood Urea 86 (H) 7 - 25 MG/DL [facility] MAIN LAB Nitrogen Creatinine 9.50 (H) 0.4 - 1.24 MG/DL [facility] MAIN LAB Calcium 7.1 (L) 8.5 - 10.6 MG/DL [facility] MAIN LAB eGFR Non 6 (L) >60 mL/min [facility] MAIN LAB Comment: [place] The eGFR is not validated f or use in drug dosing adjustments. Continue to use estimated creatinine clearance per dosing reference text. Please contact the Clinical Pharmacist for questions. eGFR 7 (L) >60 mL/min [facility] MAIN LAB [place] Comment: The eGFR is not validated for use in drug dosing adjustments. Continue to use estimated creatinine clearance per dosing reference text. Please contact the Clinical Pharmacist for questions. Specimen Blood Performing Organization Address [facility] one Number [facility] MAIN LAB [address] [place] [address] * PHOSPHORUS (05/30/2019 4:00 AM MOGUL OPERATOR) Phosphorus 5.8 (H)Comment: NOTE NEW 2.0 - 4.5 MG/DL [facility] AIN LAB REFERENCE RANGES Specimen Blood Performing Organization Address [facility] Ph one Number MAIN LAB [address] [place] [address] * MAGNESIUM (05/30/2019 4:00 AM MOGUL OPERATOR) Magnesium 1.9 1.6 - 2.6 mg/dL [facility] MAIN LAB Specimen Blood Performing Organization Address [facility] one Number [facility] MAIN LAB [address] [place] [address] * CBC (05/30/2019 4:00 AM MOGUL OPERATOR) White Blood 4.1 (L) 4.5 - 11.0 K/UL [facility] MAIN LAB Cells RBC 3.06 (L) 4.4 - 5.5 M/UL [facility] MAIN LAB Hemoglobin 10.0 (L) 13.5 - 16.5 GM/DL [facility] MAIN LAB Hematocrit 29.1 (L) 40 - 50 % [facility] MAIN LAB MCV 95.3 80 - 100 FL [facility] MAIN LAB MCH 32.8 26 - 34 PG [facility] MAIN LAB MCHC 34.4 32.0 - 36.0 G/DL [facility] MAIN LAB RDW 14.5 11 - 15 % [facility] MAIN LAB Platelet Count 93 (L) 150 - 400 K/UL [facility] MAIN LAB MPV 10.2 7 - 11 FL [facility] MAIN LAB Specimen Blood Performing Organization [facility] [facility] one Number KU MAIN LAB [address] [place] [address] * 25-OH VITAMIN D (D2 + D3) (05/30/2019 4:00 AM MOGUL OPERATOR) Vitamin 12.3 (L) 30 - 80 NG/ML MAIN LAB D(25-OH)Total Specimen Blood Performing Organization Address [facility] one Number MAIN LAB [address] [place] [address] * CHEST SINGLE VIEW (05/30/2019 2:32 AM MOGUL OPERATOR) Specimen Impressions Performed At Mild cardiomegaly and pulmonary vascular congestion l ikely reflecting mild KU RAD RESULTS CHF/volume overload. Approved by Jose Gill D.O. on 2019 9:58 AM By my electronic signature, I attest th at I have personally reviewed the images for this examination and formulated the interpretations and opinions expressed in this report Finalized by Rogers Gill M.D. on 2019 10:37 AM. Dictated by Jose Gill D.O. on 05/30/2019 8:32 AM. Narrative Performed At CHEST SINGLE VIEW KU RAD RESULTS Clinical Indication: Male, 49 years old . SOB Comparison: Chest radiograph May Technique: Single portable AP chest rad iograph. Findings: Low lung volumes. The cardiac silhouett e remains mildly enlarged. Mild pulmonary vascular congestion. No pleural effusio n, lobar consolidation, or pneumothorax. Procedure Note Interface, Radiant Results - 05/30/2019 10:40 AM MOGUL OPERATOR CHEST SINGLE VIEW Clinical Indication: Male, 49 years old. SOB Comparison: Chest radiograph May 27, 2019 Technique: Single portable AP chest radiograph. Findings: Low lung volumes. The cardiac silhouette remains mildly enlarged. Mild pulmonary vascular congestion. No pleural effusion, lobar consolidation, or pneumothorax. IMPRESSION Mild cardiomegaly and pulmonary vascular congestion likely reflecting mild CHF/volume overload. Approved by Jose Gill D.O. on 05/30/2019 9:58 AM By my electronic signature, I attest that I have personally reviewed the images for this examination and formulated the interpretations and opinions expressed in this report Finalized by Roegrs Gill M.D. on 05/30/2019 10:37 AM. Dictated by oJse Gill D.O. on 05/30/2019 8:32 AM. Performing Organization Address [facility] Ph one Number KU RAD RESULTS * PTT (APTT) (05/29/2019 11:14 PM MOGUL OPERATOR) APTT 28.1 24.0 - 36.5 SEC KU MAIN LAB Specimen Blood Performing Organization Address [facility] one Number MAIN LAB [address] [place] [address] * POC GLUCOSE (05/29/2019 10:06 PM MOGUL OPERATOR) Glucose, POC 243 (H) 70 - 100 MG/DL KU MAIN LAB Specimen Performing Organization Address [facility] Ph one Number MAIN LAB [address] [place] [address] * POC GLUCOSE (05/29/2019 5:58 PM MOGUL OPERATOR) Glucose, POC 220 (H) 70 - 100 MG/DL MAIN LAB Specimen Performing Organization Address [facility] Ph one Number MAIN LAB [address] [place] [address] * PTT (APTT) (05/29/2019 5:04 PM MOGUL OPERATOR) APTT 31.7 24.0 - 36.5 SEC KU MAIN LAB Specimen Blood Performing Organization Address [facility] one Number MAIN LAB [address] [place] [address] * PERIPHERAL SMEAR (05/29/2019 5:04 PM MOGUL OPERATOR) Peripheral NORMOCYTIC ANEMIA. MAIN LAB Smear ABSOLUTE LYMPHOCYTOPENIA. MODERATE THROMBOCYTOPENIA WITH NORMAL PLATELET MORPHOLOGY. Pathologist INTERPRETED BY HARRIET RAYMOND M.D. MAIN L AB Signature By the PATH SIGNATURE ABOVE , I attest that I have personally formulated the final interpretation expressed in this report and that the above diagnosis is based upon my examination of the slides and/or other material indicated in this report. Specimen Blood Performing Organization Address [facility] one Number MAIN LAB [address] [place] [address] * HAPTOGLOBIN (05/29/2019 5:04 PM MOGUL OPERATOR) Haptoglobin 179 16 - 200 MG/DL MAIN LAB Specimen Blood Performing Organization Address [facility] one Number MAIN LAB [address] [place] [address] * LDH-LACTATE DEHYDROGENASE (05/29/2019 5:04 PM MOGUL OPERATOR) Lactate 239 (H) 100 - 210 U/L MAIN LAB Dehydrogenase Specimen Blood Performing Organization Address [facility] one Number MAIN LAB [address] [place] [address] * POC GLUCOSE (05/29/2019 2:33 PM MOGUL OPERATOR) Glucose, POC 320 (H) 70 - 100 MG/DL MAIN LAB Specimen Performing Organization Address [facility] one Number MAIN LAB [address] [place] [address] * POC GLUCOSE (05/29/2019 12:29 PM MOGUL OPERATOR) Glucose, POC 360 (H) 70 - 100 MG/DL MAIN LAB Specimen Performing Organization Address [facility] one Number MAIN LAB [address] [place] [address] * PTT (APTT) (05/29/2019 11:15 AM MOGUL OPERATOR) APTT 28.7 24.0 - 36.5 SEC MAIN LAB Specimen Blood Performing Organization Address [facility] one Number MAIN LAB [address] [place] [address] * POC GLUCOSE (05/29/2019 8:02 AM MOGUL OPERATOR) Glucose, POC 326 (H) 70 - 100 MG/DL MAIN LAB Specimen Performing Organization Address [facility] Ph one Number MAIN LAB [address] [place] [address] * TACROLIMUS LEVEL([id number]) (05/29/2019 4:48 AM MOGUL OPERATOR) Tacrolimus 17.5 (HH) 2 - 15 NG/ML MAIN LAB Comment: CRITICAL VALUE CALLED TO AND READ BACK BY/TIME/TECH RN A MINOR at 05/29/2019 10:45:09 by 57 Target concentrations vary by type of transplant, patient response, concomitant immunosuppression and post-transplant time interval. Test was performed on whole blood using InteraXon QMS reagent and a Liliana Alfonso AU analyzer. Specimen Blood Performing Organization Address [facility] one Number MAIN LAB [address] [place] [address] * PTT (APTT) (05/29/2019 4:48 AM MOGUL OPERATOR) Pathologist [facility] APTT 29.2 24.0 - 36.5 SEC MAIN LAB Specimen Performing Organization Address [facility] one Number MAIN LAB [address] [place] [address] * BASIC METABOLIC PANEL (05/29/2019 4:48 AM MOGUL OPERATOR) Sodium 130 (L) 137 - 147 MMOL/L MAIN LAB Potassium 4.1 3.5 - 5.1 MMOL/L KU MAIN LAB Chloride 96 (L) 98 - 110 MMOL/L [facility] MAIN LAB CO2 18 (L) 21 - 30 MMOL/L K[facility] MAIN LAB Anion Gap 16 (H) 3 - 12 K[facility] MAIN LAB Glucose 283 (H) 70 - 100 MG/DL KU MAIN LAB Blood Urea 65 (H) 7 - 25 MG/DL KU MAIN LAB Nitrogen Creatinine 8.21 (H) 0.4 - 1.24 MG/DL KU MAIN LAB Calcium 6.8 (L) 8.5 - 10.6 MG/DL KU MAIN LAB eGFR Non 7 (L) >60 mL/min KU MAIN LAB Comment: [place] The eGFR is not validated f or use in drug dosing adjustments. Continue to use estimated creatinine clearance per dosing reference text. Please contact the Clinical Pharmacist for questions. eGFR 9 (L) >60 mL/min KU MAIN LAB [place] Comment: The eGFR is not validated for use in drug dosing adjustments. Continue to use estimated creatinine clearance per dosing reference text. Please contact the Clinical Pharmacist for questions. Specimen Blood Performing Organization Address [facility] one Number MAIN LAB [address] [place] [address] * PHOSPHORUS (05/29/2019 4:48 AM MOGUL OPERATOR) Pathologist [facility] Phosphorus 6.6 (H)Comment: NOTE NEW 2.0 - 4.5 MG/DL [facility] Specimen Blood Performing Organization Address [facility] one Number MAIN LAB [address] [place] [address] * MAGNESIUM (05/29/2019 4:48 AM MOGUL OPERATOR) [facility] Magnesium 1.7 1.6 - 2.6 mg/dL [facility] LAB Specimen Blood Performing Organization Address [facility] one Number MAIN LAB [address] [place] [address] * CBC (05/29/2019 4:48 AM MOGUL OPERATOR) [facility] White Blood 5.7 4.5 - 11.0 K/UL MAIN LAB Cells RBC 2.93 (L) 4.4 - 5.5 M/UL [facility] LAB Hemoglobin 9.4 (L) 13.5 - 16.5 GM/DL [facility] LAB Hematocrit 27.6 (L) 40 - 50 % MAIN LAB MCV 94.4 80 - 100 FL MAIN LAB MCH 32.0 26 - 34 PG MAIN LAB MCHC 33.9 32.0 - 36.0 G/DL MAIN LAB RDW 14.2 11 - 15 % MAIN LAB Platelet Count 96 (L) 150 - 400 K/UL MAIN LAB MPV 9.9 7 - 11 FL MAIN LAB Specimen Blood Performing Organization Address [facility] one Number MAIN LAB [address] [place] [address] * PTT (APTT) (05/28/2019 11:04 PM MOGUL OPERATOR) APTT 30.4 24.0 - 36.5 SEC MAIN LAB Specimen Blood Performing Organization Address [facility] one Number MAIN LAB [address] [place] [address] * POC GLUCOSE (05/28/2019 9:34 PM MOGUL OPERATOR) Glucose, POC 206 (H) 70 - 100 MG/DL MAIN LAB Specimen Performing Organization Address [facility] one Number MAIN LAB [address] [place] [address] * PTT (APTT) (05/28/2019 5:50 PM MOGUL OPERATOR) APTT 32.8 24.0 - 36.5 SEC MAIN LAB Specimen Blood Performing Organization Address [facility] one Number MAIN LAB [address] [place] [address] * BASIC METABOLIC PANEL (05/28/2019 5:50 PM MOGUL OPERATOR) Sodium 130 (L) 137 - 147 MMOL/L MAIN LAB Potassium 3.7 3.5 - 5.1 MMOL/L MAIN LAB Chloride 95 (L) 98 - 110 MMOL/L MAIN LAB CO2 22 21 - 30 MMOL/L MAIN LAB Anion Gap 13 (H) 3 - 12 MAIN LAB Glucose 126 (H) 70 - 100 MG/DL MAIN LAB Blood Urea 55 (H) 7 - 25 MG/DL MAIN LAB Nitrogen Creatinine 7.79 (H) 0.4 - 1.24 MG/DL MAIN LAB Calcium 7.2 (L) 8.5 - 10.6 MG/DL MAIN LAB eGFR Non 7 (L) >60 mL/min MAIN LAB Comment: [place] The eGFR is not validated f or use in drug dosing adjustments. Continue to use estimated creatinine clearance per dosing reference text. Please contact the Clinical Pharmacist for questions. eGFR 9 (L) >60 mL/min [facility] LAB [place] Comment: The eGFR is not validated for use in drug dosing adjustments. Continue to use estimated creatinine clearance per dosing reference text. Please contact the Clinical Pharmacist for questions. Specimen Blood Performing Organization Address [facility] one Number MAIN LAB [address] [place] [address] * POC GLUCOSE (05/28/2019 5:14 PM MOGUL OPERATOR) Glucose, POC 111 (H) 70 - 100 MG/DL KU MAIN LAB Specimen Performing Organization Address City/State/Zipcode Ph one Number MAIN LAB [address] [place] [address] * US KIDNEY TRANSPLANT (05/28/2019 2:58 PM MOGUL OPERATOR) Specimen Impressions Performed At 1. Continued unremarkable appearance of the renal transplant without evidence KU RAD RESULTS of vascular compromise or hydronephrosi s. 2. Questionable minimal debris in the urinary bladder, possibly artifactual due to the adjacent ureteral stent. Cor relate with urinalysis. Finalized by Tyrone Nuno M.D. on 2019 4:33 PM. Dictated by Tyrone Nuno M.D. on 05/28/2019 4:29 PM. Narrative Performed At ULTRASOUND OF TRANSPLANT KIDNEY KU RAD RESULTS CLINICAL INDICATION: Male, 49 years; ev aluate kidney transplant, elevated creatinine TECHNIQUE: Multiple grayscale, color Do ppler and spectral Doppler ultrasound images were obtained of the renal trans plant. COMPARISON: Renal transplant ultrasound prior day FINDINGS: The right lower quadrant renal transpla nt is normal in size, measuring 10.0 x 4.4 cm, previously 9.8 x 4.7 cm. Ther e is no hydronephrosis. No peritransplant fluid collections are id entified. Intrarenal resistive indices are normal , ranging 0.68-0.71, previously 0.58-0.74. Systolic acceleration is nor mal. The main renal artery is patent without visible stenosis. Peak systolic velocity of the main renal artery is 91 cm/sec, previously 165 cm/s. The main renal vein is patent. The external iliac artery and vein are patent with normal direction of blood flow. Peak systolic velocity of the e xternal iliac artery is 104 cm/sec, previously 149 cm/s. The urinary bladder is partially decomp ressed with partially visualized ureteral stent. There is an additional questiona ble small amount of debris in the urinary bladder lumen. Procedure Note Interface, Radiant Results - 05/28/2019 4:36 PM MOGUL OPERATOR ULTRASOUND OF TRANSPLANT KIDNEY CLINICAL INDICATION: Male, 49 years; evaluate kidney transplant, elevated creatinine TECHNIQUE: Multiple grayscale, color Doppler and spectral Doppler ultrasound images were obtained of the renal transplant. COMPARISON: Renal transplant ultrasound prior day FINDINGS: The right lower quadrant renal transplant is normal in size, measuring 10.0 x 4.4 cm, previously 9.8 x 4.7 cm. There is no hydronephrosis. No peritransplant fluid collections are identified. Intrarenal resistive indices are normal, ranging 0.68-0.71, previously 0.58- 0.74. Systolic acceleration is normal. The main renal artery is patent without visible stenosis. Peak systolic velocity of the main renal artery is 91 cm/sec, previously 165 cm/s. The main renal vein is patent. The external iliac artery and vein are patent with normal direction of blood flow. Peak systolic velocity of the external iliac artery is 104 cm/sec, previously 149 cm/s. The urinary bladder is partially decompressed with partially visualized ureteral stent. There is an additional questionable small amount of debris in the urinary bladder lumen. IMPRESSION 1. Continued unremarkable appearance of the renal transplant without evidence of vascular compromise or hydronephrosis. 2. Questionable minimal debris in the u rinary bladder, possibly artifactual due to the adjacent ureteral stent. Correlate with urinalysis. Finalized by Tyrone Nuno M.D. on 05/28/2019 4:33 PM. Dictated by Tyrone Nuno M.D. on 05/28/2019 4:29 PM. Performing Organization Address [facility] one Number RAD RESULTS * POC GLUCOSE (05/28/2019 12:33 PM MOGUL OPERATOR) Glucose, POC 111 (H) 70 - 100 MG/DL MAIN LAB Specimen Performing Organization Address [facility] Ph one Number MAIN LAB [address] [place] [address] * PTT (APTT) (05/28/2019 11:31 AM MOGUL OPERATOR) APTT 30.3 24.0 - 36.5 SEC MAIN LAB Specimen Blood Performing Organization Address [facility] Ph one Number MAIN LAB [address] [place] [address] * POC GLUCOSE (05/28/2019 10:11 AM MOGUL OPERATOR) Glucose, POC 127 (H) 70 - 100 MG/DL MAIN LAB Specimen Performing Organization Address [facility] Ph one Number MAIN LAB [address] [place] [address] * POC GLUCOSE (05/28/2019 8:14 AM MOGUL OPERATOR) Glucose, POC 120 (H) 70 - 100 MG/DL KU MAIN LAB Specimen Performing Organization Address [facility] one Number MAIN LAB [address] [place] [address] * POC GLUCOSE (05/28/2019 6:08 AM MOGUL OPERATOR) Glucose, POC 132 (H) 70 - 100 MG/DL MAIN LAB Specimen Performing Organization Address [facility] one Number MAIN LAB [address] [place] [address] * POC GLUCOSE (05/28/2019 5:02 AM MOGUL OPERATOR) Glucose, POC 126 (H) 70 - 100 MG/DL MAIN LAB Specimen Performing Organization Address [facility] one Number MAIN LAB [address] [place] [address] * BASIC METABOLIC PANEL (05/28/2019 4:35 AM MOGUL OPERATOR) Sodium 132 (L) 137 - 147 MMOL/L MAIN LAB Potassium 3.8 3.5 - 5.1 MMOL/L MAIN LAB Chloride 97 (L) 98 - 110 MMOL/L KU MAIN LAB CO2 22 21 - 30 MMOL/L KU MAIN LAB Anion Gap 13 (H) 3 - 12 MAIN LAB Glucose 145 (H) 70 - 100 MG/DL MAIN LAB Blood Urea 47 (H) 7 - 25 MG/DL MAIN LAB Nitrogen Creatinine 7.34 (H) 0.4 - 1.24 MG/DL MAIN LAB Calcium 7.3 (L) 8.5 - 10.6 MG/DL MAIN LAB eGFR Non 8 (L) >60 mL/min MAIN LAB Comment: [place] The eGFR is not validated f or use in drug dosing adjustments. Continue to use estimated creatinine clearance per dosing reference text. Please contact the Clinical Pharmacist for questions. eGFR 10 (L) >60 mL/min MAIN LAB [place] Comment: The eGFR is not validated for use in drug dosing adjustments. Continue to use estimated creatinine clearance per dosing reference text. Please contact the Clinical Pharmacist for questions. Specimen Blood Performing Organization Address [facility] one Number MAIN LAB [address] [place] [address] * PHOSPHORUS (05/28/2019 4:35 AM MOGUL OPERATOR) Phosphorus 3.2Comment: NOTE NEW REFERENCE 2.0 - 4.5 MG/DL MAIN LAB RANGES Specimen Blood Performing Organization Address [facility] Ph one Number MAIN LAB [address] [place] [address] * MAGNESIUM (05/28/2019 4:35 AM MOGUL OPERATOR) Magnesium 1.7 1.6 - 2.6 mg/dL MAIN LAB Specimen Blood Performing Organization Address [facility] Ph one Number MAIN LAB [address] [place] [address] * PTT (APTT) (05/28/2019 4:10 AM MOGUL OPERATOR) APTT 31.8 24.0 - 36.5 SEC MAIN LAB Specimen Blood Performing Organization Address [facility] one Number MAIN LAB [address] [place] [address] * CBC (05/28/2019 4:10 AM MOGUL OPERATOR) [facility] Signature White Blood 10.0 4.5 - 11.0 K/UL MAIN LAB Cells RBC 3.24 (L) 4.4 - 5.5 M/UL MAIN LAB Hemoglobin 10.6 (L) 13.5 - 16.5 GM/DL MAIN LAB Hematocrit 30.7 (L) 40 - 50 % MAIN LAB MCV 94.8 80 - 100 FL MAIN LAB MCH 32.7 26 - 34 PG MAIN LAB MCHC 34.5 32.0 - 36.0 G/DL MAIN LAB RDW 14.1 11 - 15 % MAIN LAB Platelet Count 118 (L) 150 - 400 K/UL MAIN LAB MPV 9.9 7 - 11 FL MAIN LAB Specimen Blood Performing Organization Address [facility] one Number MAIN LAB [address] [place] [address] * POC GLUCOSE (05/28/2019 4:01 AM MOGUL OPERATOR) Pathologist [facility] Glucose, POC 147 (H) 70 - 100 MG/DL MAIN LAB Specimen Performing Organization Address [facility] one Number MAIN LAB [address] [place] [address] * POC GLUCOSE (05/28/2019 3:11 AM MOGUL OPERATOR) Glucose, POC 155 (H) 70 - 100 MG/DL MAIN LAB Specimen Performing Organization Address City[facility] one Number MAIN LAB [address] [place] [address] * POC GLUCOSE (05/28/2019 2:06 AM MOGUL OPERATOR) Glucose, POC 167 (H) 70 - 100 MG/DL MAIN LAB Specimen Performing Organization Address City/State[facility] one Number MAIN LAB [address] [place] [address] * POC GLUCOSE (05/28/2019 12:08 AM MOGUL OPERATOR) Glucose, POC 151 (H) 70 - 100 MG/DL MAIN LAB Specimen Performing Organization Address City/[facility] one Number MAIN LAB [address] [place] [address] * PTT (APTT) (05/27/2019 11:10 PM MOGUL OPERATOR) APTT 31.5 24.0 - 36.5 SEC MAIN LAB Specimen Blood Performing Organization Address City[facility] one Number MAIN LAB [address] [place] [address] * POC GLUCOSE (05/27/2019 11:05 PM MOGUL OPERATOR) Glucose, POC 137 (H) 70 - 100 MG/DL MAIN LAB Specimen Performing Organization Address City/[facility] one Number MAIN LAB [address] [place] [address] * POC GLUCOSE (05/27/2019 9:58 PM MOGUL OPERATOR) Glucose, POC 124 (H) 70 - 100 MG/DL MAIN LAB Specimen Performing Organization Address City/[facility] one Number MAIN LAB [address] [place] [address] * LDH-LACTATE DEHYDROGENASE (05/27/2019 9:25 PM MOGUL OPERATOR) Lactate 231 (H) 100 - 210 U/L MAIN LAB Dehydrogenase Specimen Blood Performing Organization Address City/[facility]/Zipcode Ph one Number MAIN LAB [address] [place] [address] * HEPARIN INDUCED PLT AB (HIT) (05/27/2019 9:25 PM MOGUL OPERATOR) [facility] Heparin Induced NEGATIVEComment: TEST NEGA-NEGATIVE MAIN LAB Plt AB PERFORMED BY [facility] LAB Heparin AB OD 0.073 0.000 - 0.499 MAIN LAB Specimen Blood Performing Organization Address [facility] one Number MAIN LAB [address] [place] [address] * HAPTOGLOBIN (05/27/2019 9:25 PM MOGUL OPERATOR) [facility] Haptoglobin 137 16 - 200 MG/DL MAIN LAB Specimen Blood Performing Organization Address [facility] one Number MAIN LAB [address] [place] [address] * BASIC METABOLIC PANEL (05/27/2019 9:25 PM MOGUL OPERATOR) [facility] Sodium 132 (L) 137 - 147 MMOL/L MAIN LAB Potassium 3.8 3.5 - 5.1 MMOL/L MAIN LAB Chloride 97 (L) 98 - 110 MMOL/L MAIN LAB CO2 22 21 - 30 MMOL/L KU MAIN LAB Anion Gap 13 (H) 3 - 12 KU MAIN LAB Glucose 146 (H) 70 - 100 MG/DL MAIN LAB Blood Urea 43 (H) 7 - 25 MG/DL KU MAIN LAB Nitrogen Creatinine 7.07 (H) 0.4 - 1.24 MG/DL KU MAIN LAB Calcium 7.3 (L) 8.5 - 10.6 MG/DL MAIN LAB eGFR Non 8 (L) >60 mL/min MAIN LAB Comment: [place] The eGFR is not validated f or use in drug dosing adjustments. Continue to use estimated creatinine clearance per dosing reference text. Please contact the Clinical Pharmacist for questions. eGFR 10 (L) >60 mL/min MAIN LAB [place] Comment: The eGFR is not validated for use in drug dosing adjustments. Continue to use estimated creatinine clearance per dosing reference text. Please contact the Clinical Pharmacist for questions. Specimen Blood Performing Organization Address [facility] one Number MAIN LAB [address] [place] [address] * CBC AND DIFF (05/27/2019 9:25 PM MOGUL OPERATOR) [facility] White Blood 10.0 4.5 - 11.0 K/UL MAIN LAB Cells RBC 3.39 (L) 4.4 - 5.5 M/UL MAIN LAB Hemoglobin 11.0 (L) 13.5 - 16.5 GM/DL KU MAIN LAB Hematocrit 31.8 (L) 40 - 50 % KU MAIN LAB MCV 94.0 80 - 100 FL MAIN LAB MCH 32.4 26 - 34 PG MAIN LAB MCHC 34.4 32.0 - 36.0 G/DL MAIN LAB RDW 14.0 11 - 15 % KU MAIN LAB Platelet Count 112 (L) 150 - 400 K/UL MAIN LAB MPV 9.7 7 - 11 FL KU MAIN LAB Neutrophils 97 (H) 41 - 77 % KU MAIN LAB Lymphocytes 0 (L) 24 - 44 % KU MAIN LAB Monocytes 2 (L) 4 - 12 % KU MAIN LAB Eosinophils 0 0 - 5 % MAIN LAB Basophils 1 0 - 2 % MAIN LAB Absolute 9.60 (H) 1.8 - 7.0 K/UL KU MAIN LAB Neutrophil Count Absolute Lymph 0.00 (L) 1.0 - 4.8 K/UL KU MAIN LAB Count Absolute 0.20 0 - 0.80 K/UL MAIN LAB Monocyte Count Absolute 0.00 0 - 0.45 K/UL KU MAIN LAB Eosinophil Count Absolute 0.10 0 - 0.20 K/UL KU MAIN LAB Basophil Count Specimen Blood Performing Organization Address City/[facility] Ph one Number MAIN LAB [address] [place] [address] * POC GLUCOSE (05/27/2019 9:09 PM MOGUL OPERATOR) [facility] Glucose, POC 164 (H) 70 - 100 MG/DL MAIN LAB Specimen Performing Organization Address City/[facility] one Number MAIN LAB [address] [place] [address] * POC GLUCOSE (05/27/2019 8:02 PM MOGUL OPERATOR) [facility] Glucose, POC 134 (H) 70 - 100 MG/DL MAIN LAB Specimen Performing Organization Address City/[facility] Ph one Number MAIN LAB [address] [place] [address] * POC GLUCOSE (05/27/2019 6:38 PM MOGUL OPERATOR) Glucose, POC 110 (H) 70 - 100 MG/DL [facility] MAIN LAB Specimen Performing Organization Address [facility] Ph one Number [facility]U MAIN LAB [address] [place] [address] * PTT (APTT) (05/27/2019 4:38 PM MOGUL OPERATOR) APTT 48.1 (H) 24.0 - 36.5 SEC [facility] MAIN LAB Specimen Performing Organization Address [facility] Ph one Number [facility] MAIN LAB [address] [place] [address] * CBC (05/27/2019 4:38 PM MOGUL OPERATOR) White Blood 4.9 4.5 - 11.0 K/UL [facility] MAIN LAB Cells RBC 3.32 (L) 4.4 - 5.5 M/UL [facility] MAIN LAB Hemoglobin 10.7 (L) 13.5 - 16.5 GM/DL [facility] MAIN LAB Hematocrit 31.4 (L) 40 - 50 % [facility] MAIN LAB MCV 94.6 80 - 100 FL [facility] MAIN LAB MCH 32.2 26 - 34 PG [facility] MAIN LAB MCHC 34.0 32.0 - 36.0 G/DL [facility] MAIN LAB RDW 13.8 11 - 15 % [facility] MAIN LAB Platelet Count 91 (L) 150 - 400 K/UL [facility] MAIN LAB MPV 9.1 7 - 11 FL [facility] MAIN LAB Specimen Performing Organization Address [facility] one Number KU MAIN LAB [address] [place] [address] * US KIDNEY TRANSPLANT (05/27/2019 3:55 PM MOGUL OPERATOR) Specimen Impressions Performed At Normal-appearing renal transplant without evidence of vascular compromise or [facility] RAD RESULTS hydronephrosis. By my electronic signature, I attest th at I have personally reviewed the images for this examination and formulated the interpretations and opinions expressed in this report Finalized by Tyrone Nuno M.D. on 2019 3:56 PM. Dictated by Manish King M.D. on 05/27/2019 3:48 PM. Narrative Performed At Ultrasound of transplant kidney [facility] RAD RESULTS Clinical Indication: 49-year-old male, postoperative evaluation. Technique: Multiple grayscale, color Do ppler and spectral Doppler ultrasound images were obtained of the renal trans plant. Comparison: external CT abdomen/pelvis 09/25/2018 Findings: The right lower quadrant renal transpla nt is normal in size, measuring 9.8 x 4.7 cm. Trace pelviectasis without genera lized hydronephrosis. Transplant ureteral stent is partially visualized. No perit ransplant fluid collections are identified. Intrarenal resistive indices are normal , ranging 0.58-0.74. Systolic acceleration is normal. The main renal artery is patent without visible stenosis. Peak systolic velocity of the main renal artery is 165 cm/sec in the proximal portion. The transplant renal vein is patent. The iliac artery and vein are patent wi th normal direction of blood flow. Peak systolic velocity of the iliac artery i s 149 cm/sec. The urinary bladder is collapsed. A tra nsplant ureteral stent is in place. Procedure Note Interface, Radiant Results - 05/27/2019 3:59 PM MOGUL OPERATOR Ultrasound of transplant kidney Clinical Indication: 49-year-old male, postoperative evaluation. Technique: Multiple grayscale, color Doppler and spectral Doppler ultrasound images were obtained of the renal transplant. Comparison: external CT abdomen/pelvis 09/25/2018 Findings: The right lower quadrant renal transplant is normal in size, measuring 9.8 x 4.7 cm. Trace pelviectasis without generalized hydronephrosis. Transplant ureteral stent is partially visualized. No peritransplant fluid collections are identified. Intrarenal resistive indices are normal, ranging 0.58-0.74. Systolic acceleration is normal. The main renal artery is patent without visible stenosis. Peak systolic velocity of the main renal artery is 165 cm/sec in the proximal portion. The transplant renal vein is patent. The iliac artery and vein are patent with normal direction of blood flow. Peak systolic velocity of the iliac artery is 149 cm/sec. The urinary bladder is collapsed. A transplant ureteral stent is in place. IMPRESSION Normal-appearing renal transplant without evidence of vascular compromise or hydronephrosis. By my electronic signature, I attest that I have personally reviewed the images for this examination and formulated the interpretations and opinions expressed in this report Finalized by Tyrone Nuno M.D. on 05/27/2019 3:56 PM. Dictated by Manish King M.D. on 05/27/2019 3:48 PM. Performing Organization Address City/State/Zipcode Ph one Number KU RAD RESULTS * POC GLUCOSE (05/27/2019 3:01 PM MOGUL OPERATOR) Glucose, POC 88 70 - 100 MG/DL [facility] MAIN LAB Specimen Performing Organization Address [facility] one Number MAIN LAB [address] [place] [address] * POC GLUCOSE (05/27/2019 1:59 PM MOGUL OPERATOR) Glucose, POC 98 70 - 100 MG/DL [facility] MAIN LAB Specimen Performing Organization Address [facility] one Number MAIN LAB [address] [place] [address] * POC GLUCOSE (05/27/2019 12:59 PM MOGUL OPERATOR) Glucose, POC 135 (H) 70 - 100 MG/DL MAIN LAB Specimen Performing Organization Address [facility] one Number MAIN LAB [address] [place] [address] * POC POTASSIUM (05/27/2019 11:46 AM MOGUL OPERATOR) Potassium-POC 3.3 (L) 3.5 - 5.1 MMOL/L MAIN LAB Specimen Performing Organization Address [facility] one Number MAIN LAB [address] [place] [address] * CHEST 2 VIEWS (05/27/2019 11:40 AM MOGUL OPERATOR) Specimen Impressions Performed At Generalized cardiomegaly and mild venous congestion c onsistent with volume [facility] RAD RESULTS expansion. Resorptive changes about the distal cla vicular articular surfaces likely reflecting renal osteodystrophy. Finalized by Rogers Gill M.D. on 2019 7:12 AM. Dictated by Rogers Gill M.D. on 05/28/2019 7:06 AM. Narrative Performed At CHEST 2 VIEWS [facility] RAD RESULTS History: SOB. Shortness of breath, end-stage laura al disease Technique: PA and lateral views of the chest were obtained. Comparison: Comparison is made to an examination of 09/04/2018 Findings: Cardiac size is mildly enlarged. There is mild venous congestion. No acute interstitial or alveolar opacities are identified. No parenchymal masses are detected. Hilar and mediastinal configu rations are stable. There is no pleural fluid. No pneumothorax is identified. T here are resorptive changes about the distal clavicles. Procedure Note Interface, Radiant Results - 05/28/2019 7:15 AM MOGUL OPERATOR CHEST 2 VIEWS History: SOB. Shortness of breath, end-stage renal disease Technique: PA and lateral views of the chest were obtained. Comparison: Comparison is made to an examination of 09/04/2018 Findings: Cardiac size is mildly enlarged. There is mild venous congestion. No acute interstitial or alveolar opacities are identified. No parenchymal masses are detected. Hilar and mediastinal configurations are stable. There is no pleural fluid. No pneumothorax is identified. There are resorptive changes about the distal clavicles. IMPRESSION Generalized cardiomegaly and mild venous congestion consistent with volume expansion. Resorptive changes about the distal clavicular articular surfaces likely reflecting renal osteodystrophy. Finalized by Rogers Gill M.D. on 05/28/2019 7:12 AM. Dictated by Rogers Gill M.D. on 05/28/2019 7:06 AM. Performing Organization Address [facility] one Number RAD RESULTS * TYPE & CROSSMATCH (05/27/2019 11:06 AM MOGUL OPERATOR) Units Ordered 0 MAIN LAB Crossmatch 05/30/2019 MAIN LAB Expires Record Check FOUND MAIN LAB ABO/RH(D) A POS MAIN LAB Antibody Screen NEG MAIN LAB Electronic YES MAIN LAB Crossmatch Specimen Performing Organization Address [facility] one Number MAIN LAB [address] [place] [address] * CMV AB IGG (05/27/2019 11:06 AM MOGUL OPERATOR) CMV, IgG NEG MAIN LAB Specimen Blood Performing Organization Address [facility] Ph one Number MAIN LAB [address] [place] [address] * CMV AB IGM (05/27/2019 11:06 AM MOGUL OPERATOR) CMV, IgM NEG NEG-NEG MAIN LAB Specimen Blood Performing Organization Address [facility] Ph one Number MAIN LAB [address] [place] [address] * DONNA ARCE PANEL(EBV) (05/27/2019 11:06 AM MOGUL OPERATOR) EBV Capsid IgG POS MAIN LAB EBV Nuclear POS [facility] MAIN LAB Ag,Ab EBV Early Ag,Ab POS [facility] MAIN LAB EBV Capsid IgM NEG NEG-NEG [facility] MAIN LAB Specimen Blood Performing Organization Address [facility] one Number MAIN LAB [address] [place] [address] * PARATHYROID HORMONE (05/27/2019 11:06 AM MOGUL OPERATOR) PTH Hormone 218.3 (H) 10 - 65 PG/ML [facility] MAIN LAB Specimen Blood Performing Organization Address [facility] one Number MAIN LAB [address] [place] [address] * HEMOGLOBIN A1C (05/27/2019 11:06 AM MOGUL OPERATOR) Hemoglobin A1C 7.9 (H) 4.0 - 6.0 % [facility] MAIN LAB Comment: The ADA recommends that most patients with type 1 and type 2 diabetes maintain an A1c level <7%. Specimen Blood Performing Organization Address [facility] one Number MAIN LAB [address] [place] [address] * LIPID PROFILE (05/27/2019 11:06 AM MOGUL OPERATOR) Cholesterol 142 <200 MG/DL [facility] MAIN LAB Triglycerides 207 (H) <150 MG/DL [facility] MAIN LAB HDL 29 (L) >40 MG/DL [facility] MAIN LAB LDL 67 <100 mg/dL [facility] MAIN LAB VLDL 41 MG/DL [facility] MAIN LAB Non HDL 113 MG/DL [facility] MAIN LAB Cholesterol Comment: Calculated non-HDL Cholesterol (non-HDL-C) indirectly measures LDL-C, Lp(a), IDL-C, and VLDL-C. It is a surrogate marker for Apoprotein B. Goal should be less than 130 mg/dL. Specimen Blood Performing Organization Address [facility] one Number MAIN LAB [address] [place] [address] * COMPREHENSIVE METABOLIC PANEL (05/27/2019 11:06 AM MOGUL OPERATOR) Sodium 135 (L) 137 - 147 MMOL/L [facility] MAIN LAB Potassium 3.5 3.5 - 5.1 MMOL/L [facility] MAIN LAB Chloride 92 (L) 98 - 110 MMOL/L [facility] MAIN LAB Glucose 92 70 - 100 MG/DL [facility] MAIN LAB Blood Urea 43 (H) 7 - 25 MG/DL [facility] MAIN LAB Nitrogen Creatinine 8.33 (H) 0.4 - 1.24 MG/DL [facility] MAIN LAB Calcium 9.9 8.5 - 10.6 MG/DL [facility] MAIN LAB Total Protein 7.7 6.0 - 8.0 G/DL [facility] MAIN LAB Total Bilirubin 0.5 0.3 - 1.2 MG/DL [facility] MAIN LAB Albumin 4.6 3.5 - 5.0 G/DL [facility] MAIN LAB Alk Phosphatase 90 25 - 110 U/L [facility] MAIN LAB AST (SGOT) 21 7 - 40 U/L [facility] MAIN LAB CO2 29 21 - 30 MMOL/L [facility] MAIN LAB ALT (SGPT) 19 7 - 56 U/L [facility] MAIN LAB Anion Gap 14 (H) 3 - 12 MAIN LAB eGFR Non 7 (L) >60 mL/min MAIN LAB Comment: [place] The eGFR is not validated f or use in drug dosing adjustments. Continue to use estimated creatinine clearance per dosing reference text. Please contact the Clinical Pharmacist for questions. eGFR 8 (L) >60 mL/min [facility] MAIN LAB [place] Comment: The eGFR is not validated for use in drug dosing adjustments. Continue to use estimated creatinine clearance per dosing reference text. Please contact the Clinical Pharmacist for questions. Specimen Blood Performing Organization Address [facility] Ph one Number [facility] LAB [address] [place] [address] * PTT (APTT) (05/27/2019 11:06 AM MOGUL OPERATOR) APTT 31.5 24.0 - 36.5 SEC [facility] LAB Specimen Blood Performing Organization Address [facility] Ph one Number MAIN LAB [address] [place] [address] * PROTIME INR (PT) (05/27/2019 11:06 AM MOGUL OPERATOR) INR 1.0 0.8 - 1.2 [facility] LAB Specimen Blood Performing Organization Address [facility] Ph one Number [facility] LAB [address] [place] [address] * CBC AND DIFF (05/27/2019 11:06 AM MOGUL OPERATOR) White Blood 6.6 4.5 - 11.0 K/UL [facility] LAB Cells RBC 4.27 (L) 4.4 - 5.5 M/UL [facility] LAB Hemoglobin 13.6 13.5 - 16.5 GM/DL [facility] MAIN LAB Hematocrit 40.1 40 - 50 % [facility] MAIN LAB MCV 93.8 80 - 100 FL [facility] MAIN LAB MCH 31.8 26 - 34 PG [facility] MAIN LAB MCHC 33.9 32.0 - 36.0 G/DL [facility] MAIN LAB RDW 14.5 11 - 15 % [facility] MAIN LAB Platelet Count 161 150 - 400 K/UL [facility] MAIN LAB MPV 9.8 7 - 11 FL [facility] MAIN LAB Neutrophils 73 41 - 77 % [facility] MAIN LAB Lymphocytes 15 (L) 24 - 44 % [facility] MAIN LAB Monocytes 9 4 - 12 % [facility] MAIN LAB Eosinophils 2 0 - 5 % [facility] MAIN LAB Basophils 1 0 - 2 % [facility] MAIN LAB Absolute 4.90 1.8 - 7.0 K/UL [facility] MAIN LAB Neutrophil Count Absolute Lymph 0.90 (L) 1.0 - 4.8 K/UL [facility] MAIN LAB Count Absolute 0.60 0 - 0.80 K/UL [facility] MAIN LAB Monocyte Count Absolute 0.10 0 - 0.45 K/UL [facility] MAIN LAB Eosinophil Count Absolute 0.00 0 - 0.20 K/UL [facility] MAIN LAB Basophil Count Specimen Blood Performing Organization Address City/State/Zipcode Ph one Number MAIN LAB [address] [place] [address] * POC GLUCOSE (05/27/2019 10:51 AM MOGUL OPERATOR) Glucose, POC 77 70 - 100 MG/DL [facility] MAIN LAB Specimen Performing Organization Address [facility] Ph one Number MAIN LAB [address] [place] [address] * TELEMETRY STRIPS-SCAN (05/27/2019 12:00 AM MOGUL OPERATOR) Narrative Performed At This result has an attachment that is n ot available. Ordered by an unspecified provider. 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 Immunosuppression (HCC) Unspecified disorder of immune mechanis m ESRD (end stage renal disease) ([facility]) End stage renal disease Hemodialysis patient ([facility]) Renal dialysis status Uncontrolled type 1 diabetes mellitus w ith hypoglycemia ([facility]) Type I (juvenile type) diabetes mellitu s with other specified manifestations, uncontrolled Kidney replaced by transplant Obesity Obesity, unspecified Depression Depressive disorder, not elsewhere clas sified Seizure disorder ([facility]) Unspecified epilepsy without mention of intractable epilepsy GREGORY (obstructive sleep apnea) Obstructive sleep apnea (adult) ([facility]) Vitamin D deficiency Unspecified vitamin D deficiency documented in this encounter Administered Medications Action Date Dose Rate Site Medication Order MAR Action 05/27/2019 5:23 PM MOGUL OPERATOR 1,000 mg 400 mL/hr acetaminophen (OFIRMEV) 1,000 mg Given - New injection 100 mL Bag 1,000 mg, Intravenous, 100 mL, Administer over 15 Minutes, ONCE, 1 dose, Tue05/27/19 at 1745 05/28/2019 2:06 PM MOGUL OPERATOR 650 mg acetaminophen (TYLENOL) tablet 650 mg Given 650 mg, Oral, ONCE, 1 dose, Tue05/28/19 at 1230, Give 30 minutes prior to administration of thymoglobulin., 06/01/2019 11:51 AM MOGUL OPERATOR 650 mg acetaminophen (TYLENOL) tablet 650 mg Given 650 mg, Oral, EVERY 4 HOURS PRN, Starting Tue05/29/19 at 0758, Until Tue06/01/19 at 1635, Pain non-opioid: may b e used alone or in combination with opioi d analgesia, TOTAL ACETAMINOPHEN DOSE NOT TO EXCEED 4GM DAILY, 650 mg Given 06/01/2019 4:17 AM MOGUL OPERATOR 650 mg Given 05/31/2019 2:56 PM MOGUL OPERATOR 05/29/2019 12:11 PM MOGUL OPERATOR 650 mg acetaminophen (TYLENOL) tablet 650 mg Given 650 mg, Oral, ONCE, 1 dose, Tue05/29/19 at 1200, Give 30 minutes prior to administration of thymoglobulin., 05/31/2019 9:14 PM MOGUL OPERATOR 10 mg bisacodyL (DULCOLAX) rectal suppository Given 10 mg 10 mg, Rectal, DAILY PRN, Starting Tue05/29/19 at 0756, Until Tue06/01/19 at 1635, Constipation AR, Hold for loose stools, 05/29/2019 4:50 AM MOGUL OPERATOR 500 mg ceFAZolin (ANCEF) IVP 500 mg Given 500 mg, Intravenous, EVERY 12 HOURS, 4 doses, First dose on Tue05/27/19 at 1630, Last dose on Tue05/29/19 at 0430, IV PUSH -- RECONSTITUTE 500 mg vial by adding 5 mL 0.9% NACL, 500 mg Given 05/28/2019 5:09 PM MOGUL OPERATOR 500 mg Given 05/28/2019 4:29 AM MOGUL OPERATOR 06/01/2019 4:12 AM MOGUL OPERATOR 500 mg cephalexin (KEFLEX) capsule 500 mg Given 500 mg, Oral, EVERY 12 HOURS, First dos e on Tue05/29/19 at 1630, Until Discontinued 500 mg Given 05/31/2019 4:29 PM MOGUL OPERATOR 500 mg Given 05/31/2019 4:42 AM MOGUL OPERATOR 05/28/2019 2:06 PM MOGUL OPERATOR 25 mg diphenhydrAMINE (BENADRYL) capsule 25 mg Given 25 mg, Oral, ONCE, 1 dose, Tue05/28/19 at 1230, Give 30 minutes prior to administration of thymoglobulin., 05/29/2019 12:13 PM MOGUL OPERATOR 25 mg diphenhydrAMINE (BENADRYL) capsule 25 mg Given 25 mg, Oral, ONCE, 1 dose, Tue05/29/19 at 1200, Give 30 minutes prior to administration of thymoglobulin., 06/01/2019 8:09 AM MOGUL OPERATOR 50,000 Units ergocalciferol (VITAMIN D-2) capsule Given 50,000 Units 50,000 Units, Oral, EVERY 7 DAYS, Firs t dose on Tue06/01/19 at 0900, Until Discontinued 05/28/2019 8:20 AM MOGUL OPERATOR 20 mg famotidine (PEPCID) injection 20 mg Given 20 mg, Intravenous, DAILY, First dose o n Tue05/27/19 at 1630, Until Discontinued , DILUTE W/ 10ML NS OR D5W. GIVE IV PUSH OVER 2 MIN, 20 mg Given 05/27/2019 6:51 PM MOGUL OPERATOR 05/29/2019 7:26 AM MOGUL OPERATOR fentaNYL (SUBLIMAZE) INCOME TAX AUDITOR 550 mcg/ NS Dose/Rate 55 mL infusion syr (std conc)(premade) Verify Intravenous, INCOME TAX AUDITOR, Starting Tue05/27/19 at 1615, Until Tue05/29/19 at 0800, INCOME TAX AUDITOR Additional Bolus (Pain >5): 0 mcg, Re-assess in 15 minutes, may repeat bolus ONE time if pain not adequately controlled (MAXIMUM of 2 bolus doses only). Check pump to ensure proper function and appropriate patient utilization. If pain is still not adequately controlled, contact physician. Stop INCOME TAX AUDITOR if patient difficul t to arouse, or systolic BP drops more than 20 mmHg from baseline. fentaNYL INCOME TAX AUDITOR Conc= 10 mcg/mL Administer only wit h INCOME TAX AUDITOR Pump -- Only Patient may push INCOME TAX AUDITOR button. NOTE: This is a HIGH ALERT Medication. MEDICATION DOUBLE CHECK Policy applies., Given - New Bag 05/28/2019 11:26 PM MOGUL OPERATOR Dose/Rate Verify 05/28/2019 7:23 PM MOGUL OPERATOR fentaNYL citrate PF (SUBLIMAZE) injection 25-50 mcg 25-50 mcg, Intravenous, EVERY 6 HOURS PRN, Starting 05/29/19 at 0758, Unti l 06/01/19 at 1635, breakthrough 05/27/2019 3:12 PM MOGUL OPERATOR 50 mcg fentaNYL citrate PF (SUBLIMAZE) Given injection 50 mcg 50 mcg, Intravenous, EVERY 5 MIN PRN, Starting [place] 05/27/19 at 1358, Until [place] 05/27/19 at 1514, Pain Injectable, For Pain Score 4-6, For Pain Score 4-6 Maximum total dose 200 mcg Hold if RR < 10, PACU (only) 05/27/2019 5:06 PM MOGUL OPERATOR 50 mcg fentaNYL citrate PF (SUBLIMAZE) Given injection 50 mcg 50 mcg, Intravenous, EVERY 5 MIN PRN, Starting 05/27/19 at 1523, Until 05/28/19 at 0900, Pain Injectable, For Pain Score 4-6, For Pain Score 4-6 Maximum total dose 200 mcg Hold if RR < 10, PACU (only) 25 mcg Given 05/27/2019 3:41 PM MOGUL OPERATOR 06/01/2019 8:08 AM MOGUL OPERATOR 40 mg fluoxetine (PROZAC) capsule 40 mg Given 40 mg, Oral, DAILY, First dose on Tue05/28/19 at 0900, Until Discontinued 40 mg Given 05/31/2019 8:39 AM MOGUL OPERATOR 40 mg Given 05/30/2019 9:18 AM MOGUL OPERATOR 05/30/2019 2:41 AM MOGUL OPERATOR 100 mg furosemide (LASIX) injection 100 mg Given 100 mg, 12 mL, Intravenous, ONCE, 1 dose, 05/30/19 at 0245, PROTECT FROM LIGHT, 05/28/2019 7:15 AM MOGUL OPERATOR 400 Units/hr 10 mL/hr heparin (porcine) 20,000 units/D5W 500 Dose/Rate mL infusion (std conc)(premade) Verify 0-2,000 Units/hr (0-50 mL/hr) 500 mL, at 0-50 mL/hr, Intravenous, CONTINUOUS, Starting 05/27/19 at 1600, Until 05/28/19 at 0831, NOTE: this heparin drip is a CUSTOMIZED INFUSION. Do NOT follow Heparin Infusio n Scale. Notify provider for rate changes . Initial infusion rate: 400 units/hr Contact provider for rate changes and/o r any PTT outside of goal. NOTE: This is a HIGH ALERT Medication., 400 Units/hr 10 mL/hr Dose/Rate Verify 05/27/2019 7:24 PM MOGUL OPERATOR 400 Units/hr 10 mL/hr Given - New Bag 05/27/2019 4:44 PM MOGUL OPERATOR 06/01/2019 7:22 AM MOGUL OPERATOR 400 Units/hr 10 mL/hr heparin (porcine) 20,000 units/D5W 500 Dose/Rate mL infusion (std conc)(premade) Verify 400 Units/hr (10 mL/hr) 500 mL, at 10 mL/hr, Intravenous, CONTINUOUS, Starting Tue05/28/19 at 0845, Until Tue06/01/19 at 1250, NOTE: this heparin drip is a CUSTOMIZED INFUSION. Do NOT follow Heparin Infusio n Scale. Notify provider for rate changes . Infusion rate: 400 units/hr DO NOT TITRATE Contact provider for rate changes and/or any PTT NOTE: This is a HIGH ALERT Medication., 400 Units/hr 10 mL/hr Dose/Rate Verify 05/31/2019 7:08 PM MOGUL OPERATOR 400 Units/hr 10 mL/hr Given - New Bag 05/31/2019 2:20 PM MOGUL OPERATOR 05/31/2019 9:42 PM MOGUL OPERATOR 10 mg hydrALAZINE (APRESOLINE) injection 10 mg Given 10 mg, Intravenous, ONCE, 1 dose, Olga 05/31/19 at 2145, After dose, check BP every 5 minutes x3, then every 15 minutes x2 until desired BP reached. Notify provider if blood pressure is no t within desired range after above monitoring time. , 05/30/2019 9:11 PM MOGUL OPERATOR 0.125 mg hyoscyamine (ANASPAZ) rapid dissolve Given tablet 0.125 mg 0.125 mg, Sublingual, EVERY 4 HOURS PRN, Starting Tu05/29/19 at 1218, Unti l Tue06/01/19 at 1635, Bladder Spasms 0.125 mg Given 05/30/2019 3:26 PM MOGUL OPERATOR 0.125 mg Given 05/30/2019 6:16 AM MOGUL OPERATOR 05/29/2019 12:31 PM MOGUL OPERATOR 10 Units Arm, Rig ht insulin aspart U-100 (NOVOLOG FLEXPEN) Given injection PEN 0-12 Units 0-12 Units, Subcutaneous, BEFORE MEALS AND 2200, First dose on Tue05/28/19 at 1100, Until Discontinued, -POC glucose 181-220mg/dL at , administer 2 units insulin, at , 03* administer 0 units. -POC glucose 221-260mg/dL at administer 4 units insulin, at , 03* administer 2 units. -POC glucos e 261-300mg/dL at administer 6 units insulin, at , * administer 4 units. -POC glucose 301-350mg/dL at administer 8 units insulin, at , * administer 6 units. -POC glucos e 351-400mg/dL at administer 1 0 units insulin, at , * administer 8 units. -POC glucose >400mg/dL at administer 12 units insulin, at , * administer 10 units. *only if ordered 5x's daily For POCT glucose >350mg/dL give correction bolus and recheck POCT glucose in 2 hours. If POC T glucose at 2 hours >300mg/dL call physician for further orders. For patients who are not eating meals, continue to administer the appropriate correction factor. NOTE: This is a HIGH ALERT Medication., Dispense pens manually with initial order and then upon request. DO NOT uncheck "Do not dispense", 8 Units Arm, Right Given 05/29/2019 8:54 AM MOGUL OPERATOR 05/31/2019 6:24 PM MOGUL OPERATOR 4 Units Abdomen: LLQ insulin aspart U-100 (NOVOLOG FLEXPEN) Given injection PEN 0-24 Units 0-24 Units, Subcutaneous, BEFORE MEALS AND 2200, First dose on Tue05/29/19 at 1700, Until Discontinued, -POC glucose 181-220mg/dL at administer 4 units insulin, at , 03* administer 0 units. -POC glucose 221-260mg/dL at administer 8 units insulin, at , 03* administer 4 units. -POC glucos e 261-300mg/dL at administer 1 2 units insulin, at , 03* administer 8 units. -POC glucose 301-350mg/dL at administer 16 units insulin, at , 03* administer 12 units. -POC glucose 351-400mg/dL at 07, 11, 17 administer 20 units insulin, at 22, 03* administer 16 units. -POC glucose >400mg/dL at 07, 11, 17 administer 24 units insulin, at 22, 03* administer 20 units. *only if ordered 5x's daily Fo r POCT glucose >350mg/dL give correction bolus and recheck POCT glucose in 2 hours. If POCT glucose at 2 hours >300mg/dL call physician for further orders. For patients who are not eatin g meals, continue to administer the appropriate correction factor. NOTE: This is a HIGH ALERT Medication., Dispense pens manually with initial order and then upon request. DO NOT uncheck "Do not dispense", 4 Units Arm, Right Given 05/31/2019 1:35 PM MOGUL OPERATOR 4 Units Arm, Right Given 05/30/2019 10:55 PM MOGUL OPERATOR 05/29/2019 7:26 PM MOGUL OPERATOR 8 Units Arm, Rig ht insulin aspart U-100 (NOVOLOG FLEXPEN) Given injection PEN 1-25 Units 1-25 Units, Subcutaneous, THREE TIMES DAILY AFTER MEALS, First dose on Tue05/28/19 at 1100, Until Discontinued, Administer 1 unit of insulin PER 7 g carbohydrate (ex, 1 unit PER 15 g carbohydrate). -Give total insulin dose based on amount of grams of carbohydrat e actually eaten at the end of each meal/snack. NOTE: This is a HIGH ALERT Medication., Dispense pens manually wit h initial order and then upon request. DO NOT uncheck "Do not dispense", 8 Units Arm, Right Given 05/29/2019 3:00 PM MOGUL OPERATOR 1 Units Arm, Right Given 05/29/2019 1:42 PM MOGUL OPERATOR 05/31/2019 6:24 PM MOGUL OPERATOR 5 Units Abdomen: LLQ insulin aspart U-100 (NOVOLOG FLEXPEN) Given injection PEN 1-25 Units 1-25 Units, Subcutaneous, THREE TIMES DAILY WITH MEALS, First dose (after las t modification) on Tue05/30/19 at 0930, Until Discontinued, Administer 1 unit o f insulin PER 6 g carbohydrate (ex, 1 uni t PER 15 g carbohydrate). -Give total insulin dose based on amount of grams o f carbohydrate actually eaten at the end of each meal/snack. NOTE: This is a HIG H ALERT Medication., Dispense pens manually with initial order and then upon request. DO NOT uncheck "Do not dispense", 8 Units Arm, Right Given 05/31/2019 1:35 PM MOGUL OPERATOR 4 Units Abdomen:LLQ Given 05/31/2019 8:40 AM MOGUL OPERATOR 05/28/2019 12:36 PM MOGUL OPERATOR 28 Units Arm, Rig ht insulin glargine (LANTUS SOLOSTAR) Given injection PEN 28 Units 28 Units, Subcutaneous, DAILY, First dose on Tue05/28/19 at 1200, Until Discontinued, Continue if NPO. DO NOT mix with other insulins -- Do not mi x with other insulins -- NOTE: This is a HIGH ALERT Medication., Dispense pens manually with initial order and then upon request. DO NOT uncheck "Do not dispense", 05/29/2019 12:10 PM MOGUL OPERATOR 32 Units Arm, Rig ht insulin glargine (LANTUS SOLOSTAR) Given injection PEN 32 Units 32 Units, Subcutaneous, DAILY, First dose (after last modification) on Tue05/29/19 at 1200, Until Discontinued, Continue if NPO. DO NOT mix with other insulins -- Do not mix with other insulins -- NOTE: This is a HIGH ALERT Medication., Dispense pens manually wit h initial order and then upon request. DO NOT uncheck "Do not dispense", 05/31/2019 1:40 PM MOGUL OPERATOR 36 Units Arm, Rig ht insulin glargine (LANTUS SOLOSTAR) Given injection PEN 36 Units 36 Units, Subcutaneous, DAILY, First dose (after last modification) on Tue05/30/19 at 1200, Until Discontinued, Continue if NPO. DO NOT mix with other insulins -- Do not mix with other insulins -- NOTE: This is a HIGH ALERT Medication., Dispense pens manually wit h initial order and then upon request. DO NOT uncheck "Do not dispense", 36 Units Arm, Right Given 05/30/2019 3:23 PM MOGUL OPERATOR 06/01/2019 12:32 PM MOGUL OPERATOR 5.4 Units insulin pump -ASPART- Patients Own Given SubQ Pump, THREE TIMES DAILY WITH MEALS & PRN, First dose on Tue06/01/19 at 1200, Until Discontinued, This order is for a patient's own insulin pump in accordance with the Hospital's Insulin Pump (Non-Obstetric) policy. This order is for documentation of boluses delivered by the patient via the insuli n pump. Please record units of insulin administered and grams of carbs consumed., 05/28/2019 12:40 PM MOGUL OPERATOR 1 Units/hr 1 mL/hr insulin regular 100 units/NS 100 mL IV Dose/Rate drip (premade) Change 100 mL, 1-32 Units/hr (1-32 mL/hr), at 1-32 mL/hr, Intravenous, TITRATE DIRECTED , Starting Tue05/27/19 at 1900, Until Tue05/29/19 at 0800, (Administration Instructions were omitted from this summary because they were too long), 1.5 Units/hr 1.5 mL/hr Dose/Rate Verify 05/28/2019 10:19 AM MOGUL OPERATOR 1.5 Units/hr 1.5 mL/hr Dose/Rate Verify 05/28/2019 8:17 AM MOGUL OPERATOR 06/01/2019 8:09 AM MOGUL OPERATOR 1 patch Abdomina l Tissue lidocaine (LIDODERM) 5 % topical patch 1 Patch/Topic a patch l Applied 1 patch, Topical, Administer over 12 Hours, DAILY, First dose on Tue05/29/19 at 0900, Until Discontinued, NURSING PLEASE NOTE: Apply patch ONCE DAILY to abd and REMOVE after designated duration. Apply only to intact skin. Patch may be cut to fit affected area., 1 patch Abdominal Tissue Patch/Topical Applied 05/31/2019 8:40 AM MOGUL OPERATOR 1 patch Abdomen:RLQ Patch/Topical Applied 05/30/2019 9:19 AM MOGUL OPERATOR 05/28/2019 2:39 PM MOGUL OPERATOR 88.6 mL/hr lymphocyte immune globulin, rabbit Given - New (THYMOGLOBULIN) 150 mg, hydrocortisone Bag PF (SOLU-CORTEF) 20 mg, heparin (porcine) 1,000 Units in sodium chlorid e 0.9% (NS) 531.4 mL IVPB 531.4 mL, Intravenous, Administer over 6 Hours, ONCE, 1 dose, Tue05/28/19 at 1300, PROTECT FROM LIGHT -- For administration via peripheral line. PROTECT FROM LIGHT SPECIAL TUBING REQUIRED . , 05/29/2019 1:08 PM MOGUL OPERATOR 88.6 mL/hr lymphocyte immune globulin, rabbit Given - New (THYMOGLOBULIN) 150 mg, hydrocortisone Bag PF (SOLU-CORTEF) 20 mg, heparin (porcine) 1,000 Units in sodium chlorid e 0.9% (NS) 531.4 mL IVPB 531.4 mL, Intravenous, Administer over 6 Hours, ONCE, 1 dose, Tue05/29/19 at 1230, PROTECT FROM LIGHT -- For administration via peripheral line. PROTECT FROM LIGHT SPECIAL TUBING REQUIRED . , 05/28/2019 2:07 PM MOGUL OPERATOR 120 mg methylPREDNISolone (SOLU-MEDROL PF) Given injection 120 mg 120 mg, Intravenous, 2 mL, DAILY, 1 dose, First dose (after last modification) on Tue05/28/19 at 1200, Use as premedication if patient receiving thymoglobulin., 05/29/2019 12:12 PM MOGUL OPERATOR 80 mg methylPREDNISolone (SOLU-MEDROL PF) Given injection 80 mg 80 mg, Intravenous, 2 mL, DAILY, 1 dose , First dose (after last modification) on Tue05/29/19 at 1200, POD # 2. Use as premedication if patient receiving thymoglobulin., 05/30/2019 9:23 AM MOGUL OPERATOR 40 mg methylPREDNISolone (SOLU-MEDROL) Given injection 40 mg 40 mg, Intravenous, 1 mL, DAILY, 1 dose , First dose (after last modification) on Tue05/30/19 at 0900, POD # 3. Use as premedication if patient receiving thymoglobulin., 06/01/2019 8:09 AM MOGUL OPERATOR 12.5 mg metoprolol tartrate (LOPRESSOR) tablet Given 12.5 mg 12.5 mg, Oral, TWICE DAILY, First dose on Tue06/01/19 at 0745, Until Discontinued, Hold for heart rate < 60 bpm, SBP, 120, 06/01/2019 8:08 AM MOGUL OPERATOR [address] (MYFORTIC) tablet 720 Given mg 720 mg, Oral, TWICE DAILY, First dose o n 05/27/19 at 1630, Until Discontinued , NURSING: Please educate patient and document: Give with food. Do not administer within 2 hours of antacids, magnesium, calcium, iron, or zinc. NOTE : If or wanting to become , do not touch broken tablets without gloves due to risk of defects., 720 mg Given 05/31/2019 9:09 PM MOGUL OPERATOR 720 mg Given 05/31/2019 8:39 AM MOGUL OPERATOR 06/01/2019 12:06 PM MOGUL OPERATOR 500,000 Units nystatin (MYCOSTATIN) oral suspension Given 500,000 Units 500,000 Units, Swish & Swallow, FOUR TIMES DAILY, First dose on Tue05/27/19 at 1700, Until Discontinued 500,000 Units Given 06/01/2019 8:08 AM MOGUL OPERATOR 500,000 Units Given 05/31/2019 9:09 PM MOGUL OPERATOR ondansetron (ZOFRAN) injection 4 mg 4 mg, Intravenous, EVERY 6 HOURS PRN, Starting Tue05/27/19 at 1510, Until Tue06/01/19 at 1635, Nausea/Vomiting Injectable 05/27/2019 3:10 PM MOGUL OPERATOR 10 mg oxyCODONE (ROXICODONE) tablet 5-10 mg Given 5-10 mg, Oral, ONCE PRN, 1 dose, Starting Tue05/27/19 at 1358, Until Tue05/27/19 at 1510, For VAS score < 4, PAC U (only) 05/31/2019 9:09 PM MOGUL OPERATOR [address] (PROTONIX) tablet 40 mg Given 40 mg, Oral, DAILY, First dose on Tue05/28/19 at 2100, Until Discontinued, Do not crush or chew tablet., 40 mg Given 05/30/2019 9:11 PM MOGUL OPERATOR 40 mg Given 05/29/2019 10:01 PM MOGUL OPERATOR 06/01/2019 8:09 AM MOGUL OPERATOR 17 g polyethylene glycol 3350 (MIRALAX) Given packet 17 g 17 g (1 packet), Oral, DAILY, First dos e on Tue05/29/19 at 0900, Until Discontinued, 8.5 GRAMS = 0.5 PACKET 17 GRAMS = 1 PACKET 34 GRAMS = 2 PACKETS, 17 g Given 05/31/2019 8:38 AM MOGUL OPERATOR 17 g Given 05/30/2019 9:19 AM MOGUL OPERATOR prednisone (DELTASONE) tablet 10 mg 10 mg, Oral, DAILY, 1 dose, First dose (after last reorder) on 06/03/19 at 0900, POD # 7. Give with Food., Dispens e dose in 5 mg tablets., prednisone (DELTASONE) tablet 15 mg 15 mg, Oral, DAILY, 1 dose, First dose (after last reorder) on 06/02/19 at 0900, POD # 6. Give with Food., Dispens e dose in 5 mg tablets., 06/01/2019 8:09 AM MOGUL OPERATOR 20 mg prednisone (DELTASONE) tablet 20 mg Given 20 mg, Oral, DAILY, 1 dose, First dose (after last modification) on Tue 0 at 0900, POD # 5. Give with Food., Dispense dose in 5 mg tablets., 05/31/2019 8:40 AM MOGUL OPERATOR 30 mg prednisone (DELTASONE) tablet 30 mg Given 30 mg, Oral, DAILY, 1 dose, First dose (after last modification) on Tue 0 at 0900, POD # 4. Give with Food., Ente r 5 mg tablets., prednisone (DELTASONE) tablet 5 mg 5 mg, Oral, DAILY, 1 dose, First dose (after last reorder) on Tue06/04/19 at 0900, POD # 8 and continue daily. Give with Food., Dispense dose in 5 mg tablets., 06/01/2019 8:09 AM MOGUL OPERATOR 75 mg pregabalin (LYRICA) capsule 75 mg Given 75 mg, Oral, THREE TIMES DAILY, First dose on Tue05/28/19 at 0900, Until Discontinued 75 mg Given 05/31/2019 9:09 PM MOGUL OPERATOR 75 mg Given 05/31/2019 2:19 PM MOGUL OPERATOR 06/01/2019 8:09 AM MOGUL OPERATOR 2 tablets senna/docusate (SENOKOT-S) tablet 2 Given tablet 2 tablet, Oral, TWICE DAILY, First dose on Tue05/29/19 at 0900, Until Discontinued, Hold for loose stools, 2 tablets Given 05/31/2019 9:09 PM MOGUL OPERATOR 2 tablets Given 05/31/2019 8:39 AM MOGUL OPERATOR 05/27/2019 11:00 PM MOGUL OPERATOR 80 mL/hr sodium chloride 0.45% (1/2NS) 1,000 mL Dose/Rate with sodium bicarbonate 10 mEq IV Change infusion 1,000 mL, Intravenous, at 0-300 mL/hr, TITRATE DIRECTED , Starting 05/27/19 at 1530, Until Tue05/27/19 at 2329, -Start IV to run at 100 mL/hr for the first hour. Then rate based on previous hour's urine output as outline d below: --Urine output 0-20 mL: Call physician or give fluid according to previously determined rate. --Urine output 20-150 mL: Replace 100% --Urine output 150-300 mL: Replace 80% --Urine output 300-500 mL: Replace 60% and call physician --Urine output > 500 mL: Replace 50% and call physician, 110 mL/hr Dose/Rate Change 05/27/2019 10:00 PM MOGUL OPERATOR 70 mL/hr Dose/Rate Change 05/27/2019 9:00 PM MOGUL OPERATOR 05/29/2019 6:24 AM MOGUL OPERATOR 100 mL/hr sodium chloride 0.45% (1/2NS) 1,000 mL Given - New with sodium bicarbonate 10 mEq IV Bag infusion 1,000 mL, Intravenous, at 100 mL/hr, CONTINUOUS, Starting Tue05/27/19 at 2330, Until Tue05/29/19 at 0626 100 mL/hr Given - New Bag 05/28/2019 8:36 PM MOGUL OPERATOR 100 mL/hr Given - New Bag 05/28/2019 10:14 AM MOGUL OPERATOR 05/27/2019 4:00 PM MOGUL OPERATOR 1,000 mL 999 mL/hr sodium chloride 0.9 % infusion Given - New 1,000 mL, 1,000 mL, Intravenous, at 999 Bag mL/hr, BOLUS, 1 dose, [place] 05/27/19 at 1600, Dr Nielsen ordered 1L NS bolus, PACU (only) 05/28/2019 5:49 PM MOGUL OPERATOR 1,000 mL 500 mL/hr sodium chloride 0.9 % infusion Given - New 1,000 mL, 1,000 mL, Intravenous, at 500 Bag mL/hr, BOLUS, 1 dose, Tue05/28/19 at 1715 05/30/2019 10:25 AM MOGUL OPERATOR 300 mL sodium chloride 0.9 % infusion Given - New 1,000 mL, 300 mL, Intravenous, PRN IN IP Bag DIALYSIS, 1 dose, Starting Tue05/30/19 at 0830, Until Tue05/30/19 at 1335, Other..., Prime Rinse, For Prime/Rinseback Only quarter seamer can release and administer., Dialysis/Apheresis Procedure 05/29/2019 6:56 AM MOGUL OPERATOR 250 mL 20 mL/hr SODIUM CHLORIDE 0.9 % IV SOLP (Cabinet Given - New Override) Bag NOW, 1 dose, Tue05/29/19 at 0700, Rajani Gallego: cabinet override, Rajani Gallego: cabinet override, 06/01/2019 5:26 AM MOGUL OPERATOR 5 mg tacrolimus (PROGRAF) capsule 5 mg Given 5 mg, Oral, TWICE DAILY, First dose on Tue05/27/19 at 1800, Until Discontinued , - Levels should be drawn immediately prior to morning dose. - For oral (PO) administration capsule is to be swallowed whole. - For sublingual (SL) administration capsule is to be opened and contents placed under tongue. -- Sublingual route is equivalent to 50% o f oral route -- , 5 mg Given 05/31/2019 6:24 PM MOGUL OPERATOR 5 mg Given 05/31/2019 6:18 AM MOGUL OPERATOR 06/01/2019 8:09 AM MOGUL OPERATOR 0.4 mg tamsulosin (FLOMAX) capsule 0.4 mg Given 0.4 mg, Oral, DAILY, First dose on Tue05/28/19 at 0900, Until Discontinued, NURSING: Please educate patient and document: Give 1/2 hour following same meal everyday. Do not crush, chew or open the capsule. , 0.4 mg Given 05/31/2019 8:39 AM MOGUL OPERATOR 0.4 mg Given 05/30/2019 9:18 AM MOGUL OPERATOR 05/31/2019 2:56 PM MOGUL OPERATOR 50 mg traMADol (ULTRAM) tablet 50 mg Given 50 mg, Oral, EVERY 6 HOURS PRN, Starting Tue05/29/19 at 1218, Until Tue05/31/19 at 1838, Pain PO 50 mg Given 05/30/2019 9:11 PM MOGUL OPERATOR 50 mg Given 05/30/2019 3:26 PM MOGUL OPERATOR 06/01/2019 12:06 PM MOGUL OPERATOR 50 mg traMADol (ULTRAM) tablet 50-100 mg Given 50-100 mg, Oral, EVERY 6 HOURS PRN, Starting Tue05/31/19 at 1838, Until Tue06/01/19 at 1635, Pain PO 50 mg Given 06/01/2019 11:51 AM MOGUL OPERATOR 50 mg Given 06/01/2019 4:14 AM MOGUL OPERATOR 05/31/2019 9:09 PM MOGUL OPERATOR 100 mg traZODone (DESYREL) tablet 100 mg Given 100 mg, Oral, AT BEDTIME DAILY, First dose on Tue05/28/19 at 2100, Until Discontinued 100 mg Given 05/30/2019 9:11 PM MOGUL OPERATOR 100 mg Given 05/29/2019 10:00 PM MOGUL OPERATOR 06/01/2019 8:14 AM MOGUL OPERATOR Abdomina l Tissue Verification of Patch Placement and Patch/Topica Integrity - Lidocaine 5% l Verified TWICE DAILY, First dose on Tue05/29/19 at 0900, Until Discontinued, Patch checks are required every shift to ensure the patch is still intact and in place. Please verify patch check findings using this MAR entry., Other Patch/Topical Verified 05/31/2019 9:10 PM MOGUL OPERATOR Abdominal Tissue Patch/Topical Verified 05/31/2019 8:40 AM MOGUL OPERATOR documented in this encounter
--- OUTSIDE RECORDS SUMMARY | 2019-09-28 08:52 | XMS REPORT | Encounter Summary ---
Author Author [facility] Organization [facility] Address Unknown Phone Unavailable Care Team Providers Care Radio Division Officer Name Role Phone Dania Barksdale MD PCP Jose Huff DO Unavailable Reason for Visit * Reason Comments s/p Kidney Transplant Encounter Details Care Team Description Date Type Department Sydnee Castellano RN s/p Kidney Transplant 05/29/[address] [address] Social History Date Tobacco Use Types Packs/Day [...] encounter Miscellaneous Notes * Telephone Encounter - Sydnee Castellano RN - 05/29/2019 9:54 AM BLINDSTITCH LINING FELLER Transplant Phase Patient is POD 2, last BM prior to admission, Franks in place, PT/OT consulted, p atient's Pain is controlled with current analgesics. Medication(s) being used: narcotic analgesics including Fentanyl IV for pain control, diet . Patient n ot ready for discharge. Patient's medication costs are as follows: Tacrolimus: $0.00 d/t Medicare coverage Mycophonolate: $0.00 d/t Medicare coverage Valganciclovir: not ordered at this time? Presumed $0.00 d/t Medicare coverage Patient expressed no/concern regarding costs of medications. DSTITCH LINING FELLER * Telephone Encounter - Sydnee Castellano RN - 05/29/2019 9:31 AM BLINDSTITCH LINING FELLER RN coordinator met with patient, introduced self and explained role. Gave patien t kidney pillow and green binder. Asked patient to review information in binder. Discussed when support person would be available for teaching. Agreed on teachi ng the pt and his spouse at 1100 on 05/30/2019. DSTITCH LINING FELLER documented in this encounter Plan of Treatment Care Team Description Date Type Specialty Berta Harrison MD [address] [place], [place] [id number] Doroteo Enamorado MD [address] [place] [address] [phone] 10/02/2019 Hospital Radiology Encounter documented as of this encounter Goals Goal Patient Associated Recent Progress Patient-Stat Aut hor Goal Type Problems ed? Recover from illness Hospital Rajani Ac RN documented as of this encounter Visit Diagnoses Not on filedocumented in this encounter
--- OUTSIDE RECORDS SUMMARY | 2019-09-28 08:52 | XMS REPORT | Encounter Summary ---
Author Author [facility] Organization [facility] Address Unknown Phone Unavailable Care Team Providers Care Rn Imcu Name Role Phone Dania Barksdale MD PCP Jose Huff DO Unavailable Reason for Visit * Auth/Cert Referred By Contact Referred To Contact Status Reason Specialty Diagnoses / Procedures Diagnoses ESRD (end stage renal disease) (HCC) Procedures AR RENAL ALTRNSPLJ IMPLTJ GRF W/O STEEPLE JACK NEPHRECTOMY ALLOTRANSPLANTATIO N KIDNEY FROM NON LIVING DONOR WITHOUT RECIPIENT NEPHRECTOMY Encounter Details Care Team Description Date Type Department Cleo Raman MD [address] [place] [address] [phone] Darius Cortez MD [address] [place] [address] [phone] 05/27/2019 Anesthesia [facility] [place] [address] [id number] Anesthesia Record Responsible Anesthesiologist Anesthesia Start Time Anesthesi a Stop Time Procedure Name Cleo Raman MD 05/27/19 1154 05/27/19 1505 ALLOTRANSPLANTATION KIDNEY FROM NON LIVING DONOR WITHOUT RECIPIENT NEPHRECTOMY (N/A Abdomen) Date Time Event Comment 1129 113 AN Equip Check 1149 Quick Note K 3.3 1150 Quick Note pre op- pt has a cl osed wound with sutures on right thumb. Pt has a insulin pump that is being left on 1153 Out of Pre Procedure 1153 In Room 1154 Anes Start 1155 An Start Data 1155 An Induction The patient was ree valuated immediately before moderate or deep sedation use and before anesthesia induction. 1207 An Induction The patient was ree valuated immediately before moderate or deep sedation use and before anesthesia induction. 1209 An Intubation 1213 Anesthesia Ready 1222 Quick Note Levoquin ordered by Dr Nielsen due to pt PCN allergy 1225 Antibiotic Given 1227 Proc Start 1258 Quick Note accucheck 135 1340 Quick Note mannitol and lasix per Dr Nielsen 1348 Quick Note stubbs clamped per Manpreet Nielsen 1358 Quick Note accucheck 98 1400 Quick Note stubbs unclamped [address] Raman here - dis cussed BP- MAP 71- will give albumin 500 ml 1448 An Extubation 1449 an stop data [address] Raman mika t pts sats 88-89, sat pt up further and changed sat to pts ear [address] Raman here, pt i mproving 1504 Handoff to RN I completed my SBAR handoff to the receiving nurse. vss- pt sats were 88- sat pt up and had him take deep breaths - sats improved 1505 An Stop Meds Name Total midazolam (VERSED) 1 mg/mL injection 2 mg fentaNYL PF (SUBLIMAZE) injection 200 mcg lidocaine (2%) 200 mg/10mL Injection 40 mg syringe propofol (DIPRIVAN) 200 mg/ 20 mL 180 mg injection (VIAL) dextran 70/hypromellose (GENTEAL TEARS; 2 drop BION TEARS) ophthalmic solution lymphocyte immune globulin, rabbit 236.27 mL (THYMOGLOBULIN) 150 mg, hydrocortisone PF (SOLU-CORTEF) 20 mg, heparin (porcine) 1,000 Units in sodium chlorid e 0.9% (NS) 531.4 mL IVPB methylPREDNISolone (SOLU-MEDROL) 500 mg 500 mg in sodium chloride 0.9% (NS) 108 mL IVP B levofloxacin (LEVAQUIN) 500 mg/100 mL 500 mg IVPB cisatracurium (NIMBEX) 2 mg/mL injection 18 mg mannitol (OSMITROL) 20 % infusion 25 g furosemide (LASIX) 10 mg/mL injection 100 mg neostigmine (PROSTIGMINE) 1 mg/mL 5 mg injection (VIAL) glycopyrrolate (ROBINUL) 0.2mg/mL 0.8 mg injection heparin (porcine) 1,000 units/mL 2,000 Units injection sodium chloride 0.45% with sodium bicarb 1,000 mL 50 mEq/L IV infusion (OR) sodium chloride 0.45% with sodium bicarb 1,000 mL 50 mEq/L IV infusion (OR) sodium chloride 0.9 % infusion (1000 900 mL mL bag) sodium chloride 0.9 % infusion (1000 250 mL mL bag) albumin 5% infusion (500 mL) 500 mL * Name O2 N2O Inspired N2O Sevoflurane Inspired Sevoflurane * No blood administrations on file. Removal Type Details Placement AV 05/27/19; 1036; L; Arm, Left Lower 1036 by Edilson, Shunt/Fist JAIME Meade lizett Wounds 05/27/19; 1232; Mid; Abdomen; Surgical 05/27/19 1232 by Gama, (NOT for Incision JAIME Jackson Pressure Injuries) Jorge 05/27/19; 1405; Mid; Abdomen; 10 FR; #1 05/27/19 1405 by Jason Malloy RN Drain 06/01/19 1359 by Kostas Last RN Peripheral 05/27/19; 1110; RN; R; Anterior; Wrist; 05/27/19 1110 by Edilson, IV 18 G; 06/01/19; 1359 JAIME Meade 05/27/19 1448 by Kristin Albarran, DIESEL STATIONARY ENGINEER ETT 05/27/19; 1209; Ventilated by mask with 05/27/19 1209 by oral airway (2); Direct laryngoscopy, Kristin Villaseñor, Stylet; Single-Lumen, Cuffed; 7.5mm; DIESEL STATIONARY ENGINEER Mac; 3; Oral; 2a-Partial view of the glottis; 1 insertion attempt; Auscultation, ETCO2 Detector; 21 centimeters; atraumatic ; 05/27/19; 144 8 05/31/19 1037 by Nora Gustafson RN Indwelling 05/27/19; 1210; Unit (Comment) (HOWARD 0 05/27/19 1210 by Gama, Urinary OR); 16 FR; 3-way; 05/31/19; 1037 Amrik torres RN Catheter 05/28/19 1107 by Natalie Dunham RN Peripheral 05/27/19; 1453 (present upon arrival to 05/27/19 1453 by RAN Waggoner pacu); Therapy completed; 05/28/19; 110 7 JAIME Meade documented in this encounter Social History Date [...] Status Date of Assessment Functional Status Response 04/19/2019 Does the patient have a hearing impairment: No 04/19/2019 Does the patient have a visual [...] impairment: No documented as of this encounter OR Notes * Anesthesia Postprocedure Evaluation - Darius Cortez MD - 05/27/2019 5:37 PM POSITION DESCRIPTION MANAGER Post-Anesthesia Evaluation Name: Stef Pace : 1970 Age: 49 y.o. Sex: male Procedure Date: 05/27/2019 Procedure(s): ALLOTRANSPLANTATION KIDNEY FROM NON LIVING DONOR WITHOUT RECIPIENT NEPHRECTOMY Surgeon: Surgeon(s): Melecio Nielsen MD Post-Anesthesia Vitals BP: 147/86 (05/27 1729) Temp: 36.6 C (97.9 F) (05/27 1729) Pulse: 96 (05/27 1729) Respirations: 10 PER MINUTE (05/27 1729) SpO2: 96 % (05/27 1729) SpO2 Pulse: 96 (01/19 1730) Vitals Value Taken Time BP 147/86 05/27/2019 5:30 PM Temp 36.6 C (97.9 F) 05/27/2019 5:30 PM Pulse 96 05/27/2019 5:30 PM Respirations 10 PER MINUTE 05/27/2019 5:30 PM SpO2 96 % 05/27/2019 5:30 PM Post Anesthesia Evaluation Note Evaluation location: Pre/Post Patient participation: recovered; patient participated in evaluation Level of consciousness: alert Pain score: 3 (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 social work 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 member, dilaudid 0.5mg x1, oxycodone, 1g IV tylenol) Pain management: adequate Hydration: normovolemia Temperature: 36.0C - 38.4C Airway patency: adequate Perioperative Events Post-op nausea and vomiting: no PONV Postoperative Status Cardiovascular status: hemodynamically stable Respiratory status: spontaneous ventilation and supplemental oxygen Follow-up needed: none Perioperative Events Perioperative Event: No Emergency Case Activation: No TION DESCRIPTION MANAGER Associated attestation - Cassy Batista MD - 05/28/2019 8:18 PM POSITION DESCRIPTION MANAGER Post-Anesthesia Evaluation Attestation: I reviewed and agree the indicated post- anesthesia care was provided. I have reviewed loyola portions of the indicated post anesthesia care. I have examined the patient's vitals, physical status, and com plications and agree with what is documented. Staff name: Cassy Batista MD Date: 05/28/2019 * Anesthesia Preprocedure Evaluation - Cleo Raman MD - 05/27/2019 11:05 AM POSITION DESCRIPTION MANAGER Anesthesia Pre-Procedure Evaluation Name: Stef Pace : 1970 Age: 49 y.o. Sex: male Procedure Info: Procedure Information Date/Time: 05/27/19 1116 Procedure: ALLOTRANSPLANTATION KIDNEY FROM NON LIVING DONOR WITHOUT RECIPIENT NEPHRECTOMY (N/A ) Location: MAIN OR 58 / Main OR/Periop Surgeon: Melecio Nielsen MD Physical Assessment Vital Signs (last filed in past 24 hours): BP: 103/61 (05/27 1050) Temp: 36.5 C (97.7 F) (05/27 1050) Pulse: 87 (05/27 1050) Respirations: 19 PER MINUTE (05/27 1050) SpO2: 96 % (05/27 1050) Height: 167.6 cm (66") (05/27 1050) Weight: 97.2 kg (214 lb 4.6 oz) (05/27 1050) Patient History Allergies Allergen Reactions Penicillins ANAPHYLAXIS Codeine VOMITING Current Medications Medication Directions albuterol sulfate (PROAIR HFA) 90 mcg/actuation aerosol inhaler Inhale 2 puffs b y mouth into the lungs every 6 hours as needed for Wheezing or Shortness of [place] th. Shake well before use. bumetanide (BUMEX) 2 mg tablet Take 2 mg by mouth twice daily. calcitriol (ROCALTROL) 0.5 mcg capsule Take 0.5 mcg by mouth every 48 hours. calcium acetate (PHOSLO) 667 mg capsule Take 4 capsules with meals and 2 with sn acks docusate (COLACE) 100 mg capsule Take 100 mg by mouth twice daily as needed. fluoxetine (PROZAC) 40 mg capsule Take 40 mg by mouth daily. insulin pump -ASPART- Patients Own by SubQ Pump route Three times daily with vivi ls and as needed. omeprazole DR(+) (PRILOSEC) 40 mg capsule Take 40 mg by mouth daily before break fast. pregabalin (LYRICA) 75 mg capsule Take 75 mg by mouth three times daily. tamsulosin (FLOMAX) 0.4 mg capsule Take 0.4 mg by mouth daily. Do not crush, jan w or open capsules. Take 30 minutes following the same meal each day. traZODone (DESYREL) 100 mg tablet Take 100 mg by mouth at bedtime daily. Review of Systems/Medical History Patient summary reviewed Nursing notes reviewed Pertinent labs reviewed PONV Screening: Non-smoker No history of anesthetic complications No family history of anesthetic complications Pulmonary Sleep apnea Interventions: BiPAP; compliant History of smoking and drug use Cardiovascular Exercise tolerance: >4 METS 07/2018: Echocardiogram CONCLUSION: 1. Pulmonary hypertension. PAP 40 mmHg 2. LVH. 3. Diastolic dysfunction. 4. Normal systolic function. 5. Possible bicuspid aortic valve, see commentary above. Had a cardiac cath that per preliminary report was GI/Hepatic/Renal GERD, well controlled Renal disease (ESRD, last dialysis was yesterday, chem 7 pending) Musculoskeletal Low back pain Endocrine/Other Diabetes Physical Exam Airway Findings Mallampati: III TM distance: >3 FB Neck ROM: full Mouth opening: good Airway patency: adequate Comments: Large deng Dental Findings: Upper dentures and lower dentures Cardiovascular Findings: Rhythm: regular Rate: normal Pulmonary Findings: Negative Abdominal Findings: Obese Neurological Findings: Negative Alert and oriented x 3 Constitutional findings: No acute distress Well-developed Well-nourished Diagnostic Tests Hematology: Lab Results Component Value Date HGB 13.1 04/19/2019 HCT 39.3 04/19/2019 PLTCT 175 04/19/2019 WBC 6.8 04/19/2019 NEUT 77 04/19/2019 ANC 5.20 04/19/2019 ALC 0.70 04/19/2019 ANGELA 10 04/19/2019 AMC 0.70 04/19/2019 EOSA 1 04/19/2019 ABC 0.00 04/19/2019 MCV 95.2 04/19/2019 MCH 31.8 04/19/2019 MCHC 33.4 04/19/2019 MPV 9.4 04/19/2019 RDW 15.1 04/19/2019 General Chemistry: Lab Results Component Value Date NA 128 12/17/2016 K 4.4 12/17/2016 CL 91 12/17/2016 CO2 28 12/17/2016 GAP 9 12/17/2016 BUN 48 12/17/2016 CR 6.49 12/17/2016 GLU 65 12/17/2016 CA 11.9 12/17/2016 ALBUMIN 4.6 04/19/2019 TOTBILI 0.4 04/19/2019 PO4 7.1 04/19/2019 Coagulation: Lab Results Component Value Date INR 0.9 04/19/2019 Anesthesia Plan ASA score: 4 Plan: general Induction method: intravenous NPO status: acceptable Informed Consent Anesthetic plan and risks discussed with patient. TION DESCRIPTION MANAGER * Anesthesia Preprocedure Evaluation - Cleo Raman MD - 05/27/2019 11:01 AM POSITION DESCRIPTION MANAGER Anesthesia Pre-Procedure Evaluation Name: Stef Pace : 1970 Age: 49 y.o. Sex: male Procedure Info: Procedure Information Anesthesia Start Date/Time: 05/27/19 115 Procedure: ALLOTRANSPLANTATION KIDNEY FROM NON LIVING DONOR WITHOUT RECIPIENT NEPHRECTOMY (N/A Abdomen) Location: MAIN OR 58 / Main OR/Periop Surgeon: Melecio Nielsen MD Physical Assessment Vital Signs (last filed in past 24 hours): BP: 103/61 (05/27 1050) Temp: 36.5 C (97.7 F) (05/27 1050) Pulse: 87 (05/27 1050) Respirations: 19 PER MINUTE (05/27 1050) SpO2: 96 % (05/27 1050) Height: 167.6 cm (66") (05/27 1050) Weight: 97.2 kg (214 lb 4.6 oz) (05/27 1050) Patient History Allergies Allergen Reactions Penicillins ANAPHYLAXIS Codeine VOMITING Current Medications Medication Directions albuterol sulfate (PROAIR HFA) 90 mcg/actuation aerosol inhaler Inhale 2 puffs b y mouth into the lungs every 6 hours as needed for Wheezing or Shortness of [place] th. Shake well before use. bumetanide (BUMEX) 2 mg tablet Take 2 mg by mouth twice daily. calcitriol (ROCALTROL) 0.5 mcg capsule Take 0.5 mcg by mouth every 48 hours. calcium acetate (PHOSLO) 667 mg capsule Take 4 capsules with meals and 2 with sn acks docusate (COLACE) 100 mg capsule Take 100 mg by mouth twice daily as needed. fluoxetine (PROZAC) 40 mg capsule Take 40 mg by mouth daily. insulin pump -ASPART- Patients Own by SubQ Pump route Three times daily with vivi ls and as needed. omeprazole DR(+) (PRILOSEC) 40 mg capsule Take 40 mg by mouth daily before break fast. pregabalin (LYRICA) 75 mg capsule Take 75 mg by mouth three times daily. tamsulosin (FLOMAX) 0.4 mg capsule Take 0.4 mg by mouth daily. Do not crush, jan w or open capsules. Take 30 minutes following the same meal each day. traZODone (DESYREL) 100 mg tablet Take 100 mg by mouth at bedtime daily. 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) Endocrine/Other Diabetes, poorly controlled; using insulin PHYSICAL EXAM Diagnostic Tests Hematology: Lab Results Component Value Date HGB 13.6 05/27/2019 HCT 40.1 05/27/2019 PLTCT 161 05/27/2019 WBC 6.6 05/27/2019 NEUT 73 05/27/2019 ANC 4.90 05/27/2019 ALC 0.90 05/27/2019 ANGELA 9 05/27/2019 AMC 0.60 05/27/2019 EOSA 2 05/27/2019 ABC 0.00 05/27/2019 MCV 93.8 05/27/2019 MCH 31.8 05/27/2019 MCHC 33.9 05/27/2019 MPV 9.8 05/27/2019 RDW 14.5 05/27/2019 General Chemistry: Lab Results Component Value Date NA 135 05/27/2019 K 3.5 05/27/2019 CL 92 05/27/2019 CO2 29 05/27/2019 GAP 14 05/27/2019 BUN 43 05/27/2019 CR 8.33 05/27/2019 GLU 92 05/27/2019 CA 9.9 05/27/2019 ALBUMIN 4.6 05/27/2019 TOTBILI 0.5 05/27/2019 PO4 7.1 04/19/2019 Coagulation: Lab Results Component Value Date PTT 31.5 05/27/2019 INR 1.0 05/27/2019 PLAN TION DESCRIPTION MANAGER documented in this encounter Plan of Treatment Care Team Description Date Type Specialty Berta Harrison MD [address] [place] [address] Doroteo Enamorado MD [address] [place] [address] 10/02/2019 Hospital Radiology Encounter documented as of this encounter Goals Goal Patient Associated Recent Progress Patient-Stat Aut hor Goal Type Problems ed? Recover from illness [facility] Rajani Ac RN documented as of this encounter Visit Diagnoses Not on filedocumented in this encounter Administered Medications Action Date Dose Rate Site Medication Order MAR Action 05/27/2019 2:11 PM POSITION DESCRIPTION MANAGER albumin 5% infusion (500 mL) Given - New INTRA-PROCEDURE MED(CONT), Starting Sun Bag 05/27/19 at 1411, Until 05/27/19 at 1505, Anesthesia Intra-op 05/27/2019 1:49 PM POSITION DESCRIPTION MANAGER 4 mg cisatracurium (NIMBEX) injection Given INTRA-PROCEDURE MED, Starting 05/27/19 at 1207, Until 05/27/19 at 1505, Anesthesia Intra-op 2 mg Given 05/27/2019 1:30 PM POSITION DESCRIPTION MANAGER 2 mg Given 05/27/2019 1:20 PM POSITION DESCRIPTION MANAGER 05/27/2019 12:10 PM POSITION DESCRIPTION MANAGER 2 drops dextran 70/hypromellose (GENTEAL TEARS) Given ophthalmic solution INTRA-PROCEDURE MED, Starting 05/27/19 at 1210, Until 05/27/19 at 1505, Anesthesia Intra-op 05/27/2019 1:53 PM POSITION DESCRIPTION MANAGER 50 mcg fentaNYL citrate PF (SUBLIMAZE) Given injection INTRA-PROCEDURE MED, Starting 05/27/19 at 1208, Until 05/27/19 at 1505, Anesthesia Intra-op 50 mcg Given 05/27/2019 1:45 PM POSITION DESCRIPTION MANAGER 100 mcg Given 05/27/2019 12:08 PM POSITION DESCRIPTION MANAGER 05/27/2019 1:40 PM POSITION DESCRIPTION MANAGER 100 mg furosemide (LASIX) injection Given INTRA-PROCEDURE MED, Starting 05/27/19 at 1340, Until 05/27/19 at 1505, Anesthesia Intra-op 05/27/2019 2:30 PM POSITION DESCRIPTION MANAGER 0.8 mg glycopyrrolate (ROBINUL) injection Given INTRA-PROCEDURE MED, Starting 05/27/19 at 1430, Until 05/27/19 at 1505, Anesthesia Intra-op 05/27/2019 2:17 PM POSITION DESCRIPTION MANAGER 2,000 Units heparin (porcine) injection Given INTRA-PROCEDURE MED, Starting 05/27/19 at 1417, Until 05/27/19 at 1505, Anesthesia Intra-op 05/27/2019 12:25 PM POSITION DESCRIPTION MANAGER 500 mg levoFLOXacin (LEVAQUIN) 500 mg/D5W 100 Given mL IVPB Administer over 60 Minutes, INTRA-PROCEDURE MED, Starting 05/27/19 at 1225, Until 05/27/19 at 1505, Anesthesia Intra-op 05/27/2019 12:07 PM POSITION DESCRIPTION MANAGER 40 mg lidocaine (PF) injection Given INTRA-PROCEDURE MED, Starting 05/27/19 at 1207, Until 05/27/19 at 1505, Anesthesia Intra-op 05/27/2019 2:17 PM POSITION DESCRIPTION MANAGER 88.6 mL/hr 88.6 mL/hr lymphocyte immune globulin, rabbit Dose/Rate (THYMOGLOBULIN) 150 mg, hydrocortisone Change PF (SOLU-CORTEF) 20 mg, heparin (porcine) 1,000 Units in sodium chlorid e 0.9% (NS) 531.4 mL IVPB 531.4 mL, Intravenous, Administer over 6 Hours, ONCE IN OR, 1 dose, 05/27/19 at 1200, PROTECT FROM LIGHT -- For administration via peripheral line. PROTECT FROM LIGHT SPECIAL TUBING REQUIRED . , 88.6 mL/hr 88.6 mL/hr Given - New Bag 05/27/2019 12:37 PM POSITION DESCRIPTION MANAGER 88.6 mL/hr 88.6 mL/hr Given - New Bag 05/27/2019 12:25 PM POSITION DESCRIPTION MANAGER 05/27/2019 1:38 PM POSITION DESCRIPTION MANAGER 25 g mannitol (OSMITROL) 20 % infusion Given INTRA-PROCEDURE MED, Starting 05/27/19 at 1338, Until 1/19/20 at 1505, Anesthesia Intra-op 05/27/2019 12:13 PM POSITION DESCRIPTION MANAGER 500 mg methylPREDNISolone (SOLU-MEDROL) 500 mg Given - New in sodium chloride 0.9% (NS) 108 mL IVPB Bag 500 mg, Intravenous, 108 mL, Administer over 30 Minutes, ONCE IN OR, 1 dose, Calles n 05/27/19 at 1045, Pre-Op 05/27/2019 11:58 AM POSITION DESCRIPTION MANAGER 2 mg midazolam (VERSED) injection Given Intravenous, INTRA-PROCEDURE MED, Starting 05/27/19 at 1158, Until 05/27/19 at 1505, Anesthesia Intra-op 05/27/2019 2:30 PM POSITION DESCRIPTION MANAGER 5 mg neostigmine (PROSTIGMINE) injection Given INTRA-PROCEDURE MED, Starting 05/27/19 at 1430, Until 05/27/19 at 1505, Anesthesia Intra-op 05/27/2019 2:30 PM POSITION DESCRIPTION MANAGER 60 mg propofol (DIPRIVAN) injection Given INTRA-PROCEDURE MED, Starting 05/27/19 at 1207, Until 05/27/19 at 1505, Anesthesia Intra-op 120 mg Given 05/27/2019 12:07 PM POSITION DESCRIPTION MANAGER 05/27/2019 12:07 PM POSITION DESCRIPTION MANAGER sodium chloride 0.45% with sodium bicarb Given - New 50 mEq/L IV infusion (OR) Bag INTRA-PROCEDURE MED(CONT), Starting 05/27/19 at 1207, Until 05/27/19 at 1505, Anesthesia Intra-op 05/27/2019 12:15 PM POSITION DESCRIPTION MANAGER sodium chloride 0.45% with sodium bicarb Given - New 50 mEq/L IV infusion (OR) Bag INTRA-PROCEDURE MED(CONT), Starting 05/27/19 at 1215, Until 05/27/19 at 1505, Anesthesia Intra-op 05/27/2019 1:20 PM POSITION DESCRIPTION MANAGER sodium chloride 0.9 % infusion Given - New INTRA-PROCEDURE MED(CONT), Starting Sun Bag 05/27/19 at 1320, Until 05/27/19 at 1505, Anesthesia Intra-op 05/27/2019 1:21 PM POSITION DESCRIPTION MANAGER sodium chloride 0.9 % infusion Given - New INTRA-PROCEDURE MED(CONT), Starting Sun Bag 05/27/19 at 1321, Until 05/27/19 at 1505, Anesthesia Intra-op documented in this encounter
--- OUTSIDE RECORDS SUMMARY | 2019-09-28 08:52 | XMS REPORT | Encounter Summary ---
Author Author [facility] Organization [facility] Address Unknown Phone Unavailable Care Team Providers Care Heel Shaper Name Role Phone Dania Barksdale MD PCP Jose Huff DO Unavailable Encounter Details Care Team Description Date Type Department Sydnee Castellano RN Kidney transplanted (Primary Dx) 05/29/2019 Orders Only [facility] [address] [address] Social History Date Tobacco Use [...] Date Type Specialty Berta Harrison MD [address] [place] [address] Doroteo Enamorado MD [address] [place] [address] 10/02/2019 Hospital Radiology Encounter documented as of this encounter Goals Goal Patient Associated Recent Progress Patient-Stat Aut hor Goal Type Problems ed? Recover from illness Hospital No Rajani Gallego RN documented as of this encounter Visit Diagnoses Diagnosis Kidney transplanted Kidney replaced by transplant documented in this encounter
--- OUTSIDE RECORDS SUMMARY | 2019-09-28 08:53 | XMS REPORT | Encounter Summary ---
Author Author [facility] Organization [facility] Address Unknown Phone Unavailable Care Team Providers Care Insurance Adjustor Name Role Phone Dania Barksdale MD PCP Jose Huff DO Unavailable Reason for Visit * Auth/Cert Referred By Contact Referred To Contact Status Reason Specialty Diagnoses / Procedures Diagnoses ESRD (end stage renal disease) (HCC) Procedures [place] RENAL ALTRNSPLJ IMPLTJ GRF W/O CRAWLER DRAGLINE OPERATOR NEPHRECTOMY ALLOTRANSPLANTATIO N KIDNEY FROM NON LIVING DONOR WITHOUT RECIPIENT NEPHRECTOMY Encounter Details Care Team Description Date Type Department Melecio Nielsen MD [address] [id number] ALLOTRANSPLANTATION KIDNEY FROM NON DIANA NG DONOR WITHOUT RECIPIENT NEPHRECTOMY 05/27/2019 Surgery [facility] [place] [address] [id number] Social History Date Tobacco Use Types Packs/Day [...] Comments Vital Sign 137/64 06/01/2019 10:00 AM FILM FLAT INSPECTOR Blood Pressure 75 06/01/2019 9:49 AM FILM FLAT INSPECTOR Pulse 36.4 C (97.6 F) 06/01/2019 9:49 AM FILM FLAT INSPECTOR Temperature - - Respiratory Rate 95% 06/01/2019 9:49 AM FILM FLAT INSPECTOR Oxygen Saturation - - Inhaled Oxygen Concentration 101.7 kg (224 lb 3.2 oz) 06/01/2019 5:29 AM FILM FLAT INSPECTOR Weight 167.6 cm (5' 5.98") 05/29/2019 5:11 AM FILM FLAT INSPECTOR previously repor smitha Height 36.2 05/29/2019 5:11 AM FILM FLAT INSPECTOR Body Mass Index documented in this encounter [...] Addie Henderson APRN - 06/01/2019 12:34 PM FILM FLAT INSPECTOR Physician Discharge Summary Name: Virginia Pace Date [...] studies notable for: Tacrolimus 11.8, Cr 6.80 US kidney transplant 05/28/19: 1. Continued unremarkable appearance [...] Active Problems ESRD (end stage renal disease) ([facility]) Hemodialysis patient ([facility]) Uncontrolled type 1 diabetes mellitus with hypoglycemia ([facility]) Kidney transplanted Obesity Immunosuppression ([facility]) Depression Seizure disorder ([facility]) GREGORY (obstructive sleep apnea) Vitamin D deficiency [...] or concerns regarding your hospital stay, call [phone]. Discharging attending physician: SHINE JONES [[id number]] Diabetic Diet You should eat between 1600 and 2000 calories per day. This is equal to 60g (g vish) of carbohydrates per meal, and 30g of carbohydrates for a bedtime snack. If you have questions about your diet after you go home, you can call a dietitia n at [phone]. Renal Diet Your diet will need to be low in potassium and phosphorous. Keep track of your sodium intake and limit it to 2000mg (milligrams) per day. If you have any questions regarding your diet at home, you may contact a dietiti an at [phone]. Incision Care *Keep your incision clean and [...] at follow up appointment. Jorge Gomez Drain Halfway care instructions: *WASH HANDS PRIOR TO ANY [...] is not lasting long enough, call yo ur doctor. *Do not break or crush your [...] Phos, Prograf. CMV PCR if appropriate per carlos carrillo. Please have your labs drawn twice weekly [...] one tablet by mouth twice weekly. Mo n/urs Qty: 60 tablet, Refills: 5 PRESCRIPTION TYPE: Normal Comments: File dose change CONTINUE these medications which have NOT CHANGED Details albuterol sulfate (PROAIR HFA) 90 mcg/actuation aerosol inhaler Inhale 2 puffs b y mouth into the lungs every 6 hours as needed for Wheezing or Shortness of [place] th. Shake well before use. PRESCRIPTION TYPE: [...] Scheduled appointments: Jun 05, 2019 8:40 AM FILM FLAT INSPECTOR Post - Op with Berta Harrison MD [facility] ([facility]) [address] [address] [phone] Jul 09, 2019 1:00 PM FILM FLAT INSPECTOR PRO 30 with Tyrone Castillo MD, UROLOGY PROCEDURE RM 1 [facility] (Urology) [address] Level 2 Pod A [facility] [id number] Additional appointment instructions: Jun 04, 2019 7:00 AM FILM FLAT INSPECTOR Labs only [facility] Pending items needing follow up: stent removal, CORI removal Signed: Addie Henderson APRN 06/01/2019 cc: Primary Care Physician: Dania Barksdale Referring physicians: No ref. provider found Additional provider(s): FLAT INSPECTOR documented in this encounter Discharge Instructions * Appointments* Mohini Gloria RN - 06/01/2019 11:58 AM FILM FLAT INSPECTOR Jun 04, 2019 7:00 AM FILM FLAT INSPECTOR Labs only [facility] FLAT INSPECTOR * Discharge Instr - Case Management* Lizz Gordon RN - 06/01/2019 8:43 AM FILM FLAT INSPECTOR You are scheduled for local outpatient hemodialysis at [facility] t 11:00 AM starting 06/04/2019. Please arrive 15 minutes prior to your s cheduled chair time. You may also reach the facility with any questions and/or concerns by calling . FLAT INSPECTOR documented in this encounter Medications at Time [...] Supply misc monitor blood pressure as directed. omeprazole DR(+) [...] Kostas Last RN - 06/01/2019 1:57 PM FILM FLAT INSPECTOR Discharge paperwork reviewed with patient. All questions answered. Patient state s he understands discharge instructions, prescriptions, follow-up appt & labs, incision & CORI drain care. IVs removed. Patient belongings with spouse. Patient leaving unit via wheelchair to [facility]. FLAT INSPECTOR * Vita Rojas MD - 06/01/2019 1:02 PM FILM FLAT INSPECTOR Insulin pump initiated this AM. Blood sugar [...] sugars are doing. Patient will call his farm management teacher for follow up and questions. They had no other questions or concerns. Handout with prior settings and new settings given to patient today. Vita Rojas MD Endocrinology Fellow PGY-4 FLAT INSPECTOR * Abi Gill PT - 06/01/2019 11:06 AM FILM FLAT INSPECTOR PHYSICAL THERAPY PROGRESS NOTE Name: Virginia Pace [...] through therapy session) Pain: Patient complains of pain;3/10;4/10;Before activity;After activity Pain Location: Right;Abdomen;Post-surgical Pain Interventions: [...] w/ Walker, w/ Stand By Assist, Met, Nino Goa l, w/ No Device Patient Will [...] needed Therapist: Abi Gill, PT Date: 06/01/2019 FLAT INSPECTOR * Mohini Gloria RN - 06/01/2019 8:25 AM FILM FLAT INSPECTOR Discharge Planning Phase Patient is POD 5, last BM 06/01/19, Franks removed, ambulating, patient's Pain is controlled with current analgesics. Medication(s) being used: acetaminophen a nd narcotic analgesics including tramadol (Ultram) for pain control, tolerating diabetic renal diet. Patient ready for discharge. 1145 This [place] [phone]. Fax confirmation received, this IN notified Linda Gordon. 1215 This IN rounded on patient, discussed plan for post-discharge: [...] no no no Leatha Gloria RN Pager [phone] FLAT INSPECTOR * Vita Rojas MD - 06/01/2019 7:02 AM FILM FLAT INSPECTOR Endocrinology Note Name: Virginia Pace Admission Date: [...] Dx: 2001 Last HgbA1C 8.4 on 04/19/2019 CONTINUOUS DRYOUT OPERATOR HELPER regimen: Medtronic 630 G Hypoglycemic episodes on this regimen: Daily Hypoglycemia Follows up with Dr. Phan for diabetes management Diabetic-complications assessment: Retinopathy: yes. Peripheral neuropathy: yes Autonomic neuropathy: no Nephropathy: ESRD s/p Kidney transplant Macrovascular complications: no known CAD Risk Factor assessment Last lipid profile elevated triglycerides, low HDL On ACEi/ARB?: no On Statin?: no Pump Helper Animal Laboratory: Medtronic model 630 G Insulin type Humalog [...] for wt by endocrinology - records from [facility] have previously been summarized Impression / Recommendations Blood sugars overall have been stable past 24 hours. Patient with tentative plan s for discharge today. Will restart pump with changes to his original settings noted above in blue and below. He will stay in close contact with his farm management teacher from [place]. We di scussed that over time he will likely need to continue to make changes to his pu mp due to his changing kidney function and steroid taper. Would recommend restarting victoza on discharge. -in terms of setting changes: (these were [facility] with [facility] -in hospital patient was on glargine 36 [...] He will follow up with his outside farm management teacher. He has a dexcom g5 that is [...] that he will be sticking around the [facility] for a little while before he go es back home to [place]. He will follow up wit his farm management teacher there Dr. Adam galvan Denies fevers, chills, nausea, vomiting Physical Exam: [...] Intensity Pain Scale (Self Report): 3 (06/01/19 08) Medications: No current facility-administered medications on file [...] (!) 213 (06/01/19 0837) Pertinent radiology reviewed. FLAT INSPECTOR Associated attestation - Joan Ennis MD - 06/01/2019 6:55 PM FILM FLAT INSPECTOR ATTESTATION I personally performed the loyola portions [...] next f ew weeks with their primary farm management teacher in [facility]. Assessment: Type 1 diabetes, uncontrolled, with complications Insulin pump adjustment Status post kidney transplant Steroid-induced hyperglycemia Staff name: Joan Ennis MD Date: 06/01/2019 * Juan Castro DO - 06/01/2019 6:57 AM FILM FLAT INSPECTOR Transplant Surgery Progress Note Patient Name: Virginia [...] retinopathy BS 133-196 Hgb A1C 04/19/19: 8.4 CONTINUOUS DRYOUT OPERATOR HELPER: aspart insulin pump, victoza 0.6mg daily Current: [...] ND. TTP, RLQ. Incision with maria r, RN TELEMETRY. CORI with light SS dra bartholomew. INTEG: Dry, warm. Labs/Radiology Pertinent Labs/radiology results reviewed. FLAT INSPECTOR Associated attestation - Shine Jones MD - 06/01/2019 7:41 AM FILM FLAT INSPECTOR ATTESTATION I personally performed the loyola portions of the E/M visit, discussed case with re sident and concur with resident documentation of history, physical exam, assessm ent, and treatment plan unless otherwise noted. Staff name: Shine Jones MD Date: 06/01/2019 * Radha Chen RN - 05/31/2019 9:22 PM FILM FLAT INSPECTOR 05/31/[id number]/31/[id number]/31/[id number] Vitals Temp 36.4 C (97.5 F) [...] VS. Patient asymptomatic at this time. (tra cking#[id number]) FLAT INSPECTOR * Radha Chen RN - 05/31/2019 7:17 PM FILM FLAT INSPECTOR Ptt 102.1 with evening check. RN text paged team to notify. (tracking#[id number] ) Per Dr. Valencia, no adjustments at this time. Will continue to monitor. FLAT INSPECTOR * Jesica Saenz, RD - 05/31/2019 4:13 PM FILM FLAT INSPECTOR CLINICAL NUTRITION Clinical Nutrition Follow-Up Assessment Discharge [...] Oral Diet Order: Renal- non dialysis patient;Diabetic 0797-5892 Kcal/day (60 g c arb/meal, 30 g carb/HS snack); Current Oral Intake: Marginally Adequate Estimated Calorie Needs: 2662-1595(23-28kcal/kg of dw 70kg) Estimated Protein Needs: 56-70(0.8-1g/kg [...] Partially met;Ongoing Kerrie Saenz RD, LD V: 4-1138 FLAT INSPECTOR * Jamee Pryor OT - 05/31/2019 1:30 PM FILM FLAT INSPECTOR OCCUPATIONAL THERAPY Daily Note Name: Virginia Pace [...] Home Equipment: Walker Prior Function Level Of [place]: Independent with ADLs and functional transfers Lives [...] Owns what is needed Therapist: LAURIE Thompson/Armand [id number] Date: 05/31/2019 FLAT INSPECTOR * Pearl Griffiths, PT - 05/31/2019 11:12 AM FILM FLAT INSPECTOR PHYSICAL THERAPY PROGRESS NOTE Name: Virginia Pace [...] on stairs at local housing. Therapist: [place] [id number] Date: 05/31/2019 FLAT INSPECTOR * Addie Henderson APRN - 05/31/2019 10:46 AM FILM FLAT INSPECTOR Transplant Surgery FRUIT PICKER Progress Note Patient Name: Virginia Pace Admit [...] retinopathy BS 146-273 Hgb A1C 04/19/19: 8.4 CONTINUOUS DRYOUT OPERATOR HELPER: aspart insulin pump, victoza 0.6mg daily Current: [...] ND. TTP, RLQ. Incision with maria r, RN TELEMETRY. CORI with light SS dra bartholomew. : Franks with yellow UOP. INTEG: Dry, warm. Labs/Radiology Pertinent Labs/radiology results reviewed. Addie ESTHER Henderson Pager [phone] FLAT INSPECTOR * Alice Elise - 05/31/2019 9:41 AM FILM FLAT INSPECTOR Note: Admit Date: 05/27/2019 Reason for Visit: Custom Tailor referral. I met with pt and his spouse, Pamela. Jen/Anabaptism: Pt has a deep jen and describes [...] is available as needed, 29/11, through the [employer] ([phone]). For immediate response, please page [phone]. For a response within 24 hours, please submit an order in O2 for a engraver set up operator consult. Date/Time: User: Pager: [phone] 05/31/2019 9:41 AM Alice Elise FLAT INSPECTOR * Mohini Gloria RN - 05/31/2019 9:04 AM FILM FLAT INSPECTOR Discharge Planning Phase Patient is POD 4, last BM 05/30/19, Franks in place, ambulating, patient's Pain is controlled with current analgesics. Medication(s) being used: acetaminophen for pain control, tolerating renal diabetic diet. Patient not ready for discharg e. 1010 This IN rounded on patient, made plan to start teaching in approximately [address] Palm patient may need local dialysis set up, preferably at [facility]. This IN notified Linda Gordon. 1030 Met with patient and . Discussed discharge teaching including wound car e, signs and symptoms of wound infection, vital sign monitoring, when to page detonator assembler RN, expectation for clinic appointment and labs, ureteral stent removal and appointment, and Prograf trough. Patient given written instructions regarding ureteral stent appointment on 0 at 1300. Pt's questions answered. 's questions answered. Leatha Gloria RN Pager [phone] FLAT INSPECTOR * Vita Rojas MD - 05/31/2019 7:36 AM FILM FLAT INSPECTOR Endocrinology Note Name: Virginia Pace Admission Date: [...] Dx: 2001 Last HgbA1C 8.4 on 04/19/2019 CONTINUOUS DRYOUT OPERATOR HELPER regimen: Medtronic 630 G Hypoglycemic episodes on this regimen: Daily Hypoglycemia Follows up with Dr. Phan for diabetes management Diabetic-complications assessment: Retinopathy: yes. Peripheral neuropathy: yes Autonomic neuropathy: no Nephropathy: ESRD s/p Kidney transplant Macrovascular complications: no known CAD Risk Factor assessment Last lipid profile elevated triglycerides, low HDL On ACEi/ARB?: no On Statin?: no Pump Helper Animal Laboratory: Medtronic model 630 G Insulin type Humalog [...] endocrinology I have reviewed outside records from [facility]. They have been summarized (no rafal, labs, [...] He will follow up with his outside farm management teacher. He has a dexcom g5 he can [...] hospital. He will follow up with his outsi de farm management teacher and has a dexcom G5 here as [...] Intensity Pain Scale (Self Report): 1 (05/31/19 8051) Medications: No current facility-administered medications on file [...] - 100 MG/DL Glucose: (!) 121 (05/31/19 9503) POC Glucose (Download): (!) 183 (05/31/19 1209) Pertinent radiology reviewed. FLAT INSPECTOR Associated attestation - Joan Ennis MD - 05/31/2019 3:45 PM FILM FLAT INSPECTOR ATTESTATION I personally performed the loyola portions of the E/M visit, discussed case with re sident and concur with resident documentation of history, physical exam, assessm ent, and treatment plan unless otherwise noted. Staff name: Joan Ennis MD Date: 05/31/2019 * Rajani Gallego, RN - 05/31/2019 1:40 AM FILM FLAT INSPECTOR 01:38 text paged team to notify UO of only 15mL since 22:47. Still clear yellow , pt asymptomatic, VSS. (Tracking number [id number]) FLAT INSPECTOR * Nancy Long RT - 05/30/2019 5:45 PM FILM FLAT INSPECTOR RT Adult Assessment Note NAME:Virginia Pace :1970 [...] Breath Sounds: Clear (implies normal) Respiratory Effort: FLAT INSPECTOR * Elsy Lee, PT - 05/30/2019 3:32 PM FILM FLAT INSPECTOR PHYSICAL THERAPY NOTE Name: Virginia Pace : 1970 Age: 49 y.o. Admission Date: 05/27/2019 LOS: 1 day Patient declines therapy at this time due to recently returning from dialysis an d wanting to eat. Encouraged patient to get up with nursing later this date. Ligia ramos verbalized understanding. Physical therapy will continue to follow and prov fide intervention as appropriate. Therapist: Elsy Lee, PT, DPT Date: 05/30/2019 FLAT INSPECTOR * Jamee Pryor, OT - 05/30/2019 10:40 AM FILM FLAT INSPECTOR OCCUPATIONAL THERAPY Pt unavailable this am for OT; pt in dialysis. OT will f/u later this today as p t available and continue to progress as tolerated. Jamee Pryor OTR/L [id number] FLAT INSPECTOR * Pearl Griffiths, PT - 05/30/2019 9:44 AM FILM FLAT INSPECTOR PHYSICAL THERAPY NOTE Name: Virginia Pace : [...] this time. Therapist: Pearl Griffith[place] DPT [id number] Date: 05/30/2019 FLAT INSPECTOR * Dawson Sarah DO - 05/30/2019 8:59 AM FILM FLAT INSPECTOR Endocrinology Note Name: Virginia Pace Admission Date: [...] Dx: 2001 Last HgbA1C 8.4 on 04/19/2019 CONTINUOUS DRYOUT OPERATOR HELPER regimen: Medtronic 630 G Hypoglycemic episodes on this regimen: Daily Hypoglycemia Follows up with Dr. Phan for diabetes management Diabetic-complications assessment: Retinopathy: yes. Peripheral neuropathy: yes Autonomic neuropathy: no Nephropathy: ESRD s/p Kidney transplant Macrovascular complications: no known CAD Risk Factor assessment Last lipid profile elevated triglycerides, low HDL On ACEi/ARB?: no On Statin?: no Pump Helper Animal Laboratory: Medtronic model 630 G Insulin type Humalog [...] endocrinology I have reviewed outside records from [facility]. They have been summarized (no rafal, labs, [...] 5 mg daily Dawson Sarah DO Pager [phone] Subjective: Virginia Pace is a 49 y.o. [...] (05/30 540) Respirations: 22 PER MINUTE (05/30 014) SpO2: 94 % (05/30 540) BP: (138-172)/(54-68) [...] (Download): (!) 243 (05/29/192205) Pertinent radiology reviewed. FLAT INSPECTOR Associated attestation - Joan Ennis MD - 05/30/2019 4:49 PM FILM FLAT INSPECTOR ATTESTATION I personally performed the loyola portions of the E/M visit, discussed case with re sident and concur with resident documentation of history, physical exam, assessm ent, and treatment plan unless otherwise noted. Staff name: Joan Ennis MD Date: 05/30/2019 * Mohini Gloria RN - 05/30/2019 8:26 AM FILM FLAT INSPECTOR Transplant Phase Patient is POD 3, last BM prior to admission, Franks in place, PT/OT consulted, p atient's Pain is controlled with current analgesics. Medication(s) being used: narcotic analgesics including tramadol (Ultram) for pain control, diet renal diabeti . Patient not ready for discharge. Patient to get dialysis today. [facility] discharge would be Tuesday. Patient's medication costs are as follows: Tacrolimus: $0 Mycophonolate: $0 Valganciclovir: $0 Patient expressed no/concern regarding costs of medications. 1881 This NC met with patient as his nurse states patient is to go to dialysis s hortly. This NC discussed that teaching can occur after patient returns to [facility], patient agreeable. 3783 This NC met with patient and discussed plan for teaching, patient prefers t o complete teaching tomorrow, this NC agreed to plan. Leatha Gloria RN Pager [phone] FLAT INSPECTOR * Juan Castro, - 05/30/2019 6:09 AM FILM FLAT INSPECTOR Transplant Surgery FRUIT PICKER Progress Note Patient Name: Virginia Pace Admit [...] retinopathy BS 220-326 Hgb A1C 04/19/19: 8.4 CONTINUOUS DRYOUT OPERATOR HELPER: aspart insulin pump, victoza 0.6mg daily Current: [...] floor care. Consult PT/OT. Discharge teaching. Juan Castro, DO [address]38 Seen and discussed with Dr Jones who directed care. Subjective: Examined at bedside Oxygen requirement increased to 6L overnight; UOP decreased and CXR showed lillian sierra. Was given 100 IV lasix, which caused [...] NEURO: AOx3. PERRL. JANE. Pain controlled with CAUSTIC ROOM OPERATOR. RESP: Shallow breathing pattern. Faint crackles. 3 liter nasal canula. CARDIO: RRR. 1+ edema BLE 2+pulses. ABD: Soft, mildly distended. TTP, RLQ. Incision with maria r, small amount SS dr storm. CORI with SS drainage. : Frakns with pink-tinged UOP. INTEG: Dry, warm. Labs/Radiology Pertinent Labs/radiology results reviewed. FLAT INSPECTOR Associated attestation - Shine Jones MD - 05/30/2019 3:28 PM FILM FLAT INSPECTOR ATTESTATION I personally performed the olyola portions of the E/M visit, discussed case with re sident and concur with resident documentation of history, physical exam, assessm ent, and treatment plan unless otherwise noted. Staff name: Shine Jones MD Date: 05/30/2019 * Rajani Gallego RN - 05/30/2019 2:11 AM FILM FLAT INSPECTOR Notified Dr. Valencia pt reporting SOA related [...] bedside, no new orders at this time. FLAT INSPECTOR * Ronit Peña RN - 05/29/2019 6:18 PM FILM FLAT INSPECTOR 05/29/19 1751 Vitals Temp 36.4 C (97.5 [...] at this time. WCTM and report changes. FLAT INSPECTOR * Ronit Peña RN - 05/29/2019 4:40 PM FILM FLAT INSPECTOR 05/29/19 1551 Vitals O2 Liter Flow 3 Lpm BP 159/64 Mean NBP (Calculated) 96 MM HG Paged STR re elevated BP, also discussed increased O2 demand. RN will encourage incentive spirometry and ambulation in order to titrate O2 back down to 1 LPM. N o new orders at this time. WCTM. FLAT INSPECTOR * Francesca Gill RD - 05/29/2019 3:31 PM FILM FLAT INSPECTOR CLINICAL NUTRITION Clinical Nutrition Follow-Up Assessment Discharge [...] Oral Diet Order: Renal- non dialysis patient;Diabetic 2248-3021 Kcal/day (60 g c arb/meal, 30 g carb/HS snack); Current Oral Intake: Marginally Adequate;Improving Estimated Calorie Needs: 8857-3106(23-28kcal/kg of dw 70kg) Estimated Protein Needs: 56-70(0.8-1g/kg [...] Francesca Gill RD, LD PRN Clinical Dietitian FLAT INSPECTOR * Jamee Pryor, OT - 05/29/2019 3:20 PM FILM FLAT INSPECTOR OCCUPATIONAL THERAPY ASSESSMENT NOTE Name: Virginia Pace [...] Home Equipment: Walker Prior Function Level Of [place]: Independent with ADLs and functional transfers Lives [...] Owns what is needed Therapist: LAURIE Thompson/Armand [id number] Date: 05/29/2019 FLAT INSPECTOR * Pearl Griffiths, PT - 05/29/2019 3:20 PM FILM FLAT INSPECTOR PHYSICAL THERAPY ASSESSMENT Name: Virginia Pace : [...] of him". Therapist [place] DPT [id number] Date 05/29/2019 FLAT INSPECTOR * Ronit Peña RN - 05/29/2019 2:46 PM FILM FLAT INSPECTOR Results for VIRGINIA PACE ( ) as of 05/29/2019 14:34 Ref. Range 05/29/2019 12:29 05/29/2019 14:33 Glucose, POC Latest Ref Range: 70 - 100 MG/DL 360 (H) 320 (H) Administered mealtime and sliding scale Novolog totaling 11 units then rechecked 2 hours later, per protocol. Paged endocrine (trackin). Dr. Sarah to place orders FLAT INSPECTOR * Addie Henderson APRN - 05/29/2019 1:24 PM FILM FLAT INSPECTOR Transplant Surgery FRUIT PICKER Progress Note Patient Name: Virginia Pace Admit [...] retinopathy BS 111-326 Hgb A1C 04/19/19: 8.4 CONTINUOUS DRYOUT OPERATOR HELPER: aspart insulin pump, victoza 0.6mg daily Current: MDCF achs, HDCF after meals, glargine 32u qhs FEN Regular diet IVF: 0.45+10meq sodium bicarb @100ml/hr Bowel regimen not yet started Plan: Immunosuppression: Continue steroid taper and Myfortic 720mg BID. No change to P jodieraf. Thymo 150mg today to complete course. *DDRT: [...] slight shortness of breath. Pain controlled with CAUSTIC ROOM OPERATOR. Denies N/V or chest pain. Scrotal pain [...] NEURO: AOx3. PERRL. JANE. Pain controlled with CAUSTIC ROOM OPERATOR. RESP: Shallow breathing pattern. Faint crackles BLL L>R. 1 liter nasal canula. CARDIO: RRR. 2+ edema BLE, 1+ BUE edema. 2+pulses. ABD: Soft, mildly distended. TTP, RLQ. Incision with maria r, small amount SS dr storm. CORI with SS drainage. : Franks with pink-tinged UOP. INTEG: Dry, warm. Labs/Radiology Pertinent Labs/radiology results reviewed. Addie Henderson, ESTHER Pager [phone] FLAT INSPECTOR * Rajani Gallego RN - 05/28/2019 7:44 PM FILM FLAT INSPECTOR 19:44 text paged team to notify of BP 154/53. (Tracking number [id number]) 19:52 Dr. Valencia at bedside, recheck BP 156/65. ok with this BP reading . 23:[address] Valencia ok to remove capnography for pt to wear CPAP. FLAT INSPECTOR * Natalie Dunham RN - 05/28/2019 12:54 PM FILM FLAT INSPECTOR This RN spoke with Dr. Nielsen about patient's minimal urine output. STR to be p lacing order for STAT kidney ultrasound. Will continue to monitor. FLAT INSPECTOR * Juan Castro DO - 05/28/2019 6:10 AM FILM FLAT INSPECTOR Daily Progress Note Today's Date: 05/28/2019 Name: [place] Pace Admission Date: 05/27/2019 (LOS: 0 days) Assessment: 49M HTN Type 1 DM, ESRD on HD, s/p DDRT (05/27) Active Problems: ESRD (end stage renal disease) (HCC) Plan: Fentanyl CAUSTIC ROOM OPERATOR CLD, ADAT Continue renal replacement fluid protocol Maintain franks MMF, tacro, steroid taper Resume CONTINUOUS DRYOUT OPERATOR HELPER medications Transplant nephrology consulted and following PT/OT, encourage OOB and ambulation. Continue hep gtt Continue insulin gtt, endocrinology following Dispo: Continue floor care. MOHINI ARAUJO MD 0311 Discussed plan of care with staff surgeon, [...] -- PTT 31.5 48.1* -- 31.5 31.8 FLAT INSPECTOR Associated attestation - Shine Jones MD - 05/28/2019 11:24 AM FILM FLAT INSPECTOR ATTESTATION I personally performed the loyola portions of the E/M visit, discussed case with re sident and concur with resident documentation of history, physical exam, assessm ent, and treatment plan unless otherwise noted. POD #1 DD kidney transplant Doing well, good U/O Cr stable Staff name: Shine Jones MD Date: 05/28/2019 * Natalie Nunes RN - 05/28/2019 4:17 AM FILM FLAT INSPECTOR 0400: MD notified UOP has been trending down. Last UOP over 2hrs = 40mL. No new orders at this time. MD to place orders for morning labs 0600: Pt UOP down to 30mL over past 2 hours. BP 144/54; HR 84. MD notified via t ext page. Tracking #[id number] FLAT INSPECTOR * Natalie Nunes RN - 05/28/2019 12:45 AM FILM FLAT INSPECTOR Per JAIME REYES okay to turn off capnography monitoring while patient is sleeping wit h CPAP. RN will resume monitoring as soon as CPAP is off. FLAT INSPECTOR * Marium Bauer RT - 05/27/2019 9:55 PM FILM FLAT INSPECTOR RT Adult Assessment Note NAME:Virginia Pace :1970 [...] Sounds: Clear (implies normal) Respiratory Effort: Non-Labored FLAT INSPECTOR * Natalie Nunes RN - 05/27/2019 9:38 PM FILM FLAT INSPECTOR 2000: BP 141/41; HR 93; UOP 105; IVF @105 2100: BP 150/51; HR 93; UOP 70; IVF @ 70 Labs sent at this time per MR request. MD notified via text page. Tracking #[id number] FLAT INSPECTOR * Loli Fink RN - 05/27/2019 9:33 PM FILM FLAT INSPECTOR IVT consulted for PIV placement in lower [...] drawn, labeled at bedside, given to RN. FLAT INSPECTOR * Ronit Garcia RN - 05/27/2019 7:59 PM FILM FLAT INSPECTOR 1838 Patient arrived to room # 6406 [...] Screening Tool (Nursing Nutrition Assessment) Completed? yes FLAT INSPECTOR * Ronit Garcia RN - 05/27/2019 7:47 PM FILM FLAT INSPECTOR 1947 Text page sent, tracking number [id number], reporting patient's request for home Lyrica dose. Awaiting further orders. Will continue to monitor and report changes. FLAT INSPECTOR * Yaw Morrison MD - 05/27/2019 7:01 PM FILM FLAT INSPECTOR I spoke to the patient primary nurse Ronit This patient has poor vision For this individual it is best to stop the pump during the hospitalization. Then we can adjust the insulin with the insulin drip and eventually with subcu. He will have tapering steroids will complicate his care. We will see tomorrow FLAT INSPECTOR * Halina Waggoner RN - 05/27/2019 6:07 PM FILM FLAT INSPECTOR At 1638 Dr Nielsen bedside and reported [...] drip would be started on the floor. FLAT INSPECTOR * Robert Harris MD - 05/27/2019 5:52 PM FILM FLAT INSPECTOR Endocrinology Progress [facility]. Patient brittl e Type I [...] Harris MD Internal Medicine PGY-3 Available on milabent. Pager [phone] FLAT INSPECTOR documented in this encounter H&P Notes * Melecio Nielsen MD - 05/27/2019 11:26 AM FILM FLAT INSPECTOR Transplant Surgery H&P 05/27/2019 Patient: Virginia Pace [...] Signs: 24 Hour Range BP: 103/61 (05/27 1050) Temp: 36.5 C (97.7 F) (05/27 1050) Pulse: 87 (05/27 1050) Respirations: 19 PER MINUTE (05/27 1050) SpO2: 96 % (05/27 1050) Height: 167.6 cm (66") (05/27 1050) BP: (103)/(61) Temp: [36.5 C (97.7 F)] [...] 72 hours. POC Glucose (Download): 77 (05/27/19 1051) Jose Graf MD Team Pager: # [phone] I personally performed the loyola portions of the E/M visit, discussed case with re sident and concur with resident documentation of history, physical exam, assessm ent, and treatment plan unless otherwise noted. Melecio Nielsen MD FLAT INSPECTOR documented in this encounter Procedure Notes * Segundo Mahajan RN - 05/30/2019 12:55 PM FILM FLAT INSPECTOR Associated Order(s): HEMODIALYSIS DATE; HEMODIALYSIS INPATIENT Report received from Primary Care RN, thru Elena HD RN at 1030am. Pt [facility] from [facility] and attached to nbp, oxcemitry, and cardiac [...] treatment well. Pt without complaint post treatment. [place] pulled one at at time, hemostasis achieved in less than 5 min on each ca nnulation site. Access sites dressed with gauze and paper tape. Report given to Primary Care Leah SANDOVAL at around 1500. Pt placed in transportation at 1430 and left unit at 1450 via bed. See Dialysis Flowsheet and MAR for details. FLAT INSPECTOR documented in this encounter Consult Notes * Verónica Palm MD - 06/01/2019 2:16 PM FILM FLAT INSPECTOR 06/01/19 Transplant Consult Progress Note: [place] Pace [id number] 1970 Transplant Synopsis: Date: 05/27/2019 Donor: DCD from a female donor in early 50's KDPI: 60% CPRA: 0% DSA: none Induction: Thymo for steroid avoidance CMV status: D+/R- Post-op course: DGF Ureteral stent removal: TBD Baseline Scr: TBD Clinical trial: none Referring cuff turner machine operator: S: Doing well and ready to go home; no event overnite Patient Active Problem List Diagnosis Date Noted Vitamin D deficiency 05/31/2019 Hemodialysis patient ([facility]) 05/28/2019 Uncontrolled type 1 diabetes mellitus with hypoglycemia ([facility]) 05/28/2019 Kidney transplanted 05/28/2019 Obesity 05/28/2019 Immunosuppression ([facility]) 05/28/2019 Depression 05/28/2019 Seizure disorder ([facility]) 05/28/2019 GREGORY (obstructive sleep apnea) 05/28/2019 ESRD (end stage renal disease) ([facility]) 12/22/2016 Review of Systems Constitutional: Negative. HENT: [...] urinary bladder lumen. Assessment and Plan: Mr. Paec is a 49 y.o.white male with ESRD [...] Tuesday with Dr. Christy Palm MD Pager [phone] FLAT INSPECTOR * Verónica Palm MD - 05/31/2019 2:35 PM FILM FLAT INSPECTOR 05/31/19 Transplant Consult Progress Note: [place] Pace [id number] 1970 Transplant Synopsis: Date: 05/27/2019 Donor: DCD from a female donor in early KDPI: 60% CPRA: 0% DSA: none Induction: Thymo for steroid avoidance CMV status: D+/R- Post-op course: DGF Ureteral stent removal: TBD Baseline Scr: TBD Clinical trial: none Referring cuff turner machine operator: S: feeling much better this morning; no SOB; hasn't walked the halls yet; remov ed 3.5 liters on dialysis yesterday; off oxygen Patient Active Problem List Diagnosis Date Noted Vitamin D deficiency 05/31/2019 Hemodialysis patient ([facility]) 05/28/2019 Uncontrolled type 1 diabetes mellitus with hypoglycemia ([facility]) 05/28/2019 Kidney transplanted 05/28/2019 Obesity 05/28/2019 Immunosuppression ([facility]) 05/28/2019 Depression 05/28/2019 Seizure disorder ([facility]) 05/28/2019 GREGORY (obstructive sleep apnea) 05/28/2019 ESRD (end stage renal disease) ([facility]) 12/22/2016 Review of Systems Constitutional: Negative. HENT: [...] DM: on Lantus Verónica Palm MD Pager [phone] FLAT INSPECTOR * Verónica Palm MD - 05/30/2019 11:47 AM FILM FLAT INSPECTOR 05/30/19 Transplant Consult Progress Note: [place] Pace [id number] 1970 Transplant Synopsis: Date: 05/27/2019 Donor: DCD from a female donor in early 50 KDPI: 60% CPRA: 0% DSA: none Induction: Thymo for steroid avoidance CMV status: D+/R- Post-op course: DGF Ureteral stent removal: TBD Baseline Scr: TBD Clinical trial: none Referring cuff turner machine operator: S: patient seen on dialysis; became more SOB overnite requiring 7 liters of O2; given Lasix 100 mg IV with response; unable to sleep due to SOB; tolerating HD today; breathing better Patient Active Problem List Diagnosis Date Noted Hemodialysis patient ([facility]) 05/28/2019 Uncontrolled type 1 diabetes mellitus with hypoglycemia ([facility]) 05/28/2019 Kidney transplanted 05/28/2019 Obesity 05/28/2019 Immunosuppression ([facility]) 05/28/2019 Depression 05/28/2019 Seizure disorder ([facility]) 05/28/2019 GREGORY (obstructive sleep apnea) 05/28/2019 ESRD (end stage renal disease) ([facility]) 12/22/2016 Review of Systems Constitutional: Negative. HENT: [...] DM: on Lantus Verónica Palm MD Pager [phone] FLAT INSPECTOR * Verónica Palm MD - 05/29/2019 1:59 PM FILM FLAT INSPECTOR 05/29/19 Transplant Consult Progress Note: [place] Pace [id number] 1970 Transplant Synopsis: Date: 05/27/2019 Donor: DCD from a female donor in early 50's KDPI: 60% CPRA: 0% DSA: none Induction: Thymo for steroid avoidance CMV status: D+/R- Post-op course: IGF so far Ureteral stent removal: TBD Baseline Scr: TBD Clinical trial: none Referring cuff turner machine operator: S: doing well; no events overnite; made 250 cc of urine in 3 hrs this morning; h ad renal USN yesterday for decrease u/o Patient Active Problem List Diagnosis Date Noted Hemodialysis patient ([facility]) 05/28/2019 Uncontrolled type 1 diabetes mellitus with hypoglycemia ([facility]) 05/28/2019 Kidney transplanted 05/28/2019 Obesity 05/28/2019 Immunosuppression ([facility]) 05/28/2019 Depression 05/28/2019 Seizure disorder ([facility]) 05/28/2019 GREGORY (obstructive sleep apnea) 05/28/2019 ESRD (end stage renal disease) ([facility]) 12/22/2016 Review of Systems Constitutional: Negative. HENT: [...] insulin pump in Macie Palm MD Pager [phone] FLAT INSPECTOR * Dawson Sarah DO - 05/29/2019 7:54 AM FILM FLAT INSPECTOR Endocrinology Note Name: Virginia Pace Admission Date: [...] Dx: 2001 Last HgbA1C 8.4 on 04/19/2019 CONTINUOUS DRYOUT OPERATOR HELPER regimen: Medtronic 630 G Hypoglycemic episodes on this regimen: Daily Hypoglycemia Follows up with Dr. Phan for diabetes management Diabetic-complications assessment: Retinopathy: yes. Peripheral neuropathy: yes Autonomic neuropathy: no Nephropathy: ESRD s/p Kidney transplant Macrovascular complications: no known CAD Risk Factor assessment Last lipid profile elevated triglycerides, low HDL On ACEi/ARB?: no On Statin?: no Pump Helper Animal Laboratory: Medtronic model 630 G Insulin type Humalog [...] endocrinology I have reviewed outside records from [facility]. They have been summarized (no rafal, labs, imaging) where appropriate. Impression / Recommendations Inc Glargine 32 daily Cont Aspart ICR 10 MDCF Daily steroid taper starting 05/28/2019 Methylprednisolone 120 mg daily Methylprednisolone 80 mg daily Methylprednisolone 40 mg daily Prednisone 30 mg daily Prednisone 20 mg daily Prednisone 15 mg daily Prednisone 10 mg daily Prednisone 5 mg daily Dawson KearaDO Pager [phone] Subjective: Virginia Pace is a 49 y.o. [...] Intensity Pain Scale (Self Report): 2 (05/29/19 9732) Medications: No current facility-administered medications on file [...] - 36.5 SEC Glucose: (!) 283 (05/29/19 9637) POC Glucose (Download): (!) 206 (05/28/192133) Pertinent radiology reviewed. FLAT INSPECTOR Associated attestation - Joan Ennis MD - 05/29/2019 4:14 PM FILM FLAT INSPECTOR ATTESTATION I personally performed the loyola portions [...] Verónica Palm MD - 05/28/2019 2:08 PM FILM FLAT INSPECTOR Associated Order(s): CONSULT NEPHROLOGY TRANSPLANT PHYSICIAN 05/28/19 Transplant Consult [place] Pace [id number] 1970 Transplant Synopsis: Date: 05/27/2019 Donor: DCD from a female donor in early 50's KDPI: 60% CPRA: 0% DSA: none Induction: Thymo for steroid avoidance CMV status: D+/R- Post-op course: IGF so far Ureteral stent removal: TBD Baseline Scr: TBD Clinical trial: none Referring cuff turner machine operator: CC: new kidney transplant HPI: [place] Pace [...] ALYM 1.0 - 4.8 K/UL - 0.00(L) ANGELA 4 - 12 % - 2(L) AMONO [...] with insulin pump in hous e Verónica Cibrik, MD Pager [phone] FLAT INSPECTOR * Norma Gary - 05/28/2019 10:48 AM FILM FLAT INSPECTOR Associated Order(s): CONSULT DIETITIAN CLINICAL NUTRITION Clinical [...] still ma naging carb controlled diet well CONTINUOUS DRYOUT OPERATOR HELPER, following 45-60g carbs/meal x 3 meals/day + [...] Current Oral Intake: Inadequate Estimated Calorie Needs: 6674-7040(23-28kcal/kg of dw 70kg) Estimated Protein Needs: 56-70(0.8-1g/kg [...] Within [address], LD *[phone] FLAT INSPECTOR * Dawson Sarah DO - 05/28/2019 6:42 AM FILM FLAT INSPECTOR Associated Order(s): CONSULT ENDOCRINOLOGY PHYSICIAN Endocrinology Note Name: [place] Pace Admission Date: 05/27/2019 Active Problems: ESRD (end stage renal disease) ([facility]) Reason for Consult: "Type 1 DM; glucose [...] Dx: 2001 Last HgbA1C 8.4 on 04/19/2019 CONTINUOUS DRYOUT OPERATOR HELPER regimen: Medtronic 630 G Hypoglycemic episodes on this regimen: Daily Hypoglycemia Follows up with Dr. Phan for diabetes management Diabetic-complications assessment: Retinopathy: yes. Peripheral neuropathy: yes Autonomic neuropathy: no Nephropathy: ESRD s/p Kidney transplant Macrovascular complications: no known CAD Risk Factor assessment Last lipid profile elevated triglycerides, low HDL On ACEi/ARB?: no On Statin?: no Pump Helper Animal Laboratory: Medtronic model 630 G Insulin type Humalog [...] endocrinology I have reviewed outside records from [facility]. They have been summarized (no rafal, labs, [...] 5 mg daily Dawson Sarah DO Pager [phone] Subjective: [place] Pace is a 49 y.o. [...] in [address] Soler in [place]. Patient previously managed with insulin pump, Medtronic [...] file Gets together: Not on file Attends mormonism service: Not on file Active member of [...] (!) 132 (05/28/19 0608) Pertinent radiology reviewed. FLAT INSPECTOR Associated attestation - Yaw Morrison MD - 05/28/2019 11:24 AM FILM FLAT INSPECTOR ATTESTATION I personally performed the loyola portions [...] - Kat Vasquez - 06/01/2019 1:44 PM FILM FLAT INSPECTOR Pharmacy Transplant Medication Teaching This patient was [...] the pharmacist with any further que stions. Farrah SeymourD Candidate FLAT INSPECTOR * Case Mgmt DC Plan - Kiara Viera - 06/01/2019 11:39 AM FILM FLAT INSPECTOR Case Management Progress Note Discharge Planning Phase [...] to d/c today and denies additional needs/concerns. [facility] [phone] -ALEX spoke with apprenticeship training representative. It has been booked Patricia GODOY -[address] [facility] -[phone] -14 nights -Confirmation #: [id number] -In [place]'s name and just need ID ? Medication Needs o Financial ALEX provided pt with ESRD Medicare booklet and contact information to pt's local social security office. ALEX completed 2728 ESRD form and explained the [...] Name, Phone and Availability #1: , Pamela [phone] Does the patient use Medicaid Transportation?: No ? Next Level of Care (Acute Psych discharges only) ? Discharge Disposition Durable Medical Equipment No service has been selected for the patient. [facility] Destination No service has been selected for the patient. Home Care No service has been selected for the patient. Dialysis/Infusion No service has been selected for the patient. Kiara Viera LMSW [phone] FLAT INSPECTOR * Case Mgmt DC Plan - Lizz Gordon RN - 06/01/2019 8:36 AM FILM FLAT INSPECTOR Case Management Progress Note NAME:[place]ia Pace :[birth year] [...] he stays locally for several weeks * NCM reviewed EMR and pt was active with home HD through [facility] [place], [place]. NCM to send referral to [facility]. * Will continue to follow with Surgical team through DC. ? Info or Referral ? Discharge Planning Discharge Planning: OP HD or PD * OP HD referral faxed to [facility] P: / F: to set up local OP HD for ~2 wks post DC. Spoke to rosalina Ramírez with [facility] P: , x [phone] and she will be on t he lookout for the referral. Tentative plan is to attempt OP HD placement at [facility] O: / F: if they have an y temporary chair times. * [facility] received notification on 05/31/19 that [facility] does not have any immediate chair times available for a while. Desiree with [facility] stated she sent the referral to [facility] as [facility] * [facility] received faxed notification on 06/01/19 that patient has been tentatively set up for OP HD at [facility] P: / F: at 11:00 AM starting 06/04/2019. Surgical team updated. *MOODY spoke to Tan with [facility]. He stated that Tosha in admiss ions was needing orders and treatment plan for this patient. NCM to assist and o btain what is needed as indicated. *HD flowsheets faxed to [facility] P: / F: ? Medication Needs ? Financial ? Legal ? Other Disposition ? Expected Discharge Date Expected Discharge Date: 05/31/19 Expected Discharge Time: 1600 ? Transportation Does the patient need discharge transport arranged?: No Transportation Name, Phone and Availability #1: Pamela [phone] Does the patient use Medicaid Transportation?: No ? Next Level of Care (Acute Psych discharges only) ? Discharge Disposition Durable Medical Equipment No service has been selected for the patient. Destination No service has been selected for the patient. Home Care No service has been selected for the patient. Dialysis/Infusion No service has been selected for the patient. Lizz Gordon RN, BSN Nurse Market Research InterviewerSystem Software Developer / Surgical Non-Transplant Pager: FLAT INSPECTOR * Patient Education - Pedro Kat - 05/31/2019 2:12 PM FILM FLAT INSPECTOR Pharmacy Transplant Education The new immunosuppressive medication [...] at this time. Kat Vasquez, FarrahD Candidate FLAT INSPECTOR * Case Mgmt DC Plan - Kiara Viera - 05/31/2019 11:41 AM FILM FLAT INSPECTOR Case Management Progress Note Discharge Planning Phase [...] Transplant Clinic and [facility]. Pt denies needi ng a referral [...] options. Pt states they would prefer for [facility] to arrange a hotel and then they [...] hear by the end of the day. [facility] [phone] -ALEX spoke with apprenticeship training representative who has requested pt's stay and will call pt once a room is secured. Confirmation number is [id number]. ALEX provided my contact as a b ack up. ? Medication Needs o Financial ? Legal ? Other Disposition ? Expected Discharge Date Expected Discharge Date: 05/31/19 Expected Discharge Time: 1600 ? Transportation Does the patient need discharge transport arranged?: No Transportation Name, Phone and Availability #1: , Pamela [phone] Does the patient use Medicaid Transportation?: No ? Next Level of Care (Acute Psych discharges only) ? Discharge Disposition Durable Medical Equipment No service has been selected for the patient. [facility] Destination No service has been selected for the patient. Home Care No service has been selected for the patient. Dialysis/Infusion No service has been selected for the patient. Kiara Viera LMSW [phone] FLAT INSPECTOR * Case Mgmt DC Plan - Kiara Viera - 05/30/2019 9:38 AM FILM FLAT INSPECTOR Case Management Progress Note Discharge Planning Phase NAME:Virginia Pace :1 06/01/1969 AGE: 49 y.o. ADMISSION DATE: 05/27/2019 DAYS ADMITTED: LOS: 1 day Todays Date: 05/30/2019 Plan Pt anticipated to d/c to local lodging with / support once medically stable. Interventions ? Support ? Info or Referral ? Discharge Planning [facility] [phone] -Don't work on weekends, but if scheduled Tuesday for Tuesday would be able to do that. -SW to call on day of d/c, SW confirmed with apprenticeship training representative that since it would be transplant d/c [...] Name, Phone and Availability #1: , Pamela [phone] Does the patient use Medicaid Transportation?: No ? Next Level of Care (Acute Psych discharges only) ? Discharge Disposition Durable Medical Equipment No service has been selected for the patient. Destination No service has been selected for the patient. Home Care No service has been selected for the patient. Dialysis/Infusion No service has been selected for the patient. Kiara Viera LMSW [phone] FLAT INSPECTOR * Case Mgmt DC Plan - Kiara Viera - 05/29/2019 4:51 PM FILM FLAT INSPECTOR Case Management Progress Note Transplant Phase NAME:Virginia Pace :1 06/01/1969 AGE: 49 y.o. ADMISSION DATE: 05/27/2019 DAYS ADMITTED: LOS: 0 days Todays Date: 05/29/2019 Plan Pt anticipated to d/c to local lodging with 24/ support once medically stable. Interventions ? Support Yue, Medicaid CM, - spoke with Yue -[employer] request and justification, may cap out at 5 days and then can ret ry. -F/u appointments, time, who, and where -$81/night and set up for them, if they choose to set up self can reimburse -$25/day reimburse for food -Is usually supposed to be 125 miles from home, but shouldn't be problem -[facility] [phone] - can be paid caregiver again day after d/c even at hotel. ? Info or Referral ? Discharge Planning ? Medication Needs o Financial ? Legal ? Other Disposition ? Expected Discharge Date Expected Discharge Date: 05/31/19 Expected Discharge Time: 1600 ? Transportation Does the patient need discharge transport arranged?: No Transportation Name, Phone and Availability #1: , Pamela [phone] Does the patient use Medicaid Transportation?: No [...] Pt requested SW reach out to his [facility] CM Yue ([phone]) to discuss his lodging benefit. Pt's will be his primary caregiver, but his sons and niece will be able to assist if needed. Pt's Pamela will provide transport at d/c and for follow up appointments. SW provided my contact information for pt to reach out with any needs. Patient Address/Phone [address] [facility] [address] There are no phone numbers on file. Emergency Contact Extended Emergency Contact Information Primary Emergency Contact: Pamela Pace [facility] Relation: Spouse Healthcare Directive Healthcare Directive: No, patient does not have a healthcare directive Would patient like to fill out a (a new) Healthcare Directive?: No, patient decl ined Psych Advance Directive (Psych unit only): No, patient does not have a Psych Adv ance Directive Transportation Does the patient need discharge transport arranged?: No Transportation Name, Phone and Availability #1: Pamela [phone] Does the patient use Medicaid Transportation?: No [...] well and [facility] a [facility].) Mental Health Provider: PCP Mental Health [...] ? PCP Dania Barksdale, , ? Pharmacy [facility] [address] [place] [address] [address] [facility] [address] [facility] [address] [facility] [address] ? Durable Medical Equipment Durable Medical Equipment [...] is now AVF) Location: Home HD, through [facility] attending: Tuesday, Tuesday, , Tuesday Dialysis Start [...] community based services: Yes Agency name: Annalise NGUYEN assistance hours/week: 49 hours/week Provider Schedule: 7 hours/day Services provided: Assistance with ADL ? Alexis Ramsay: N/A ? Hospice Hospice: No ? Outpatient Therapy PT: In the past When did patient receive care?: 2 years ago Name of rehab location/group: [facility] Would patient return for future services?: Yes OT: No BUSINESS PROCESS ANALYST: No ? Care Home Facility/Custodial SNF: No NH: No ? Inpatient Rehab IPR: No ? [facility] LTACH: No ? Acute Hospital Stay Acute Hospital Stay: In the past Was patient's stay within the last 30 days?: No Kiara Viera LMSW [phone] FLAT INSPECTOR * Operative Report (DICTATED ONLY) - Melecio Nielsen MD - 05/27/2019 3:13 PM FILM FLAT INSPECTOR THE [address] [address] PATIENT NAME: VIRGINIA PACE MR#/PT#: [id number] Page 2 OPERATIVE REPORT DATE OF OPERATION: [...] ESTIMATED BLOOD LOSS: N/A SPECIMENS REMOVED: None. Melecio Nielsen MD AN / MEDQ /[id number] cc: - Melecio Nielsen MD FLAT INSPECTOR * Operative Report (DICTATED ONLY) - Melecio Nielsen MD - 05/27/2019 3:12 PM FILM FLAT INSPECTOR THE [address] [address] PATIENT NAME: VIRGINIA PAEC MR#/PT#: [id number] Page 2 OPERATIVE REPORT DATE OF OPERATION: [...] with PDS number 6-0 running after placing 6-Latvian double-J stent. Anastomosis was partially tied with 4-0 Vicryl interrupted. Area irrigated. Meticulous hemostasis was ob tained. No surgical bleeding was noticed. Then, a CORI number 10 flat was placed around the kidney. All counts were correct ed by website programmer times 3 including needle, laps, and instruments. [...] SPECIMENS REMOVED: None. MD DAMARIS Whyte / EMERSON /[id number] cc: - Melecio Nielsen MD FLAT INSPECTOR * Operative Report (Direct Entry) - Melecio Nielsen MD - 05/27/2019 12:27 PM FILM FLAT INSPECTOR OPERATIVE REPORT Name: Virginia Pace is a [...] 100 ml Specimen(s) Removed/Disposition: No specimens i FLAT INSPECTOR documented in this encounter Plan of Treatment Care Team Description Date Type Specialty Berta Harrison MD [address] [place], [place] [id number] Doroteo Enamorado MD [address] [place] [address] [phone] 10/02/2019 Hospital Radiology Encounter Order Schedule Name Type Priority Associated Diag noses ONE TIME for 1 Occurrences starting 05/09 until 05/27/2019 ECG 12-LEAD ECG STAT documented as of this encounter Goals Goal Patient Associated Recent Progress Patient-Stat Aut hor Goal Type Problems ed? Recover from illness [facility] Rajani Ac RN documented as of this encounter Procedures Comments Procedure Name Priority Date/Time Associated Diag nosis HC CREATININE-FLUID Routine 06/05/2019 Kidney tra nsplanted 9:20 AM FILM FLAT INSPECTOR HC TRIGLYCERIDE-FLUID Routine 06/05/2019 Kidney t ransplanted 9:20 AM FILM FLAT INSPECTOR HC CELL COUNT Routine 06/05/2019 Kidney transpla nted W/DIFF-FLUIDS 9:20 AM FILM FLAT INSPECTOR POC GLUCOSE 06/01/2019 12:29 PM FILM FLAT INSPECTOR POC GLUCOSE 06/01/2019 8:37 AM FILM FLAT INSPECTOR HC FK 506 Routine 06/01/2019 4:20 AM FILM FLAT INSPECTOR HC PTT(APTT) STAT 06/01/2019 4:20 AM FILM FLAT INSPECTOR HC CBC,AUTOMATED Routine 06/01/2019 4:20 AM FILM FLAT INSPECTOR HC PHOSPHOROUS, SERUM Routine 06/01/2019 4:20 AM FILM FLAT INSPECTOR HC MAGNESIUM Routine 06/01/2019 4:20 AM FILM FLAT INSPECTOR HC BASIC METABOLIC PANEL Routine 06/01/2019 4:20 AM FILM FLAT INSPECTOR POC GLUCOSE 05/31/2019 9:15 PM FILM FLAT INSPECTOR POC GLUCOSE 05/31/2019 5:59 PM FILM FLAT INSPECTOR HC PTT(APTT) STAT 05/31/2019 4:40 PM FILM FLAT INSPECTOR POC GLUCOSE 05/31/2019 12:09 PM FILM FLAT INSPECTOR POC GLUCOSE 05/31/2019 8:13 AM FILM FLAT INSPECTOR HC FK 506 05/31/2019 4:23 AM FILM FLAT INSPECTOR HC PTT(APTT) 05/31/2019 4:23 AM FILM FLAT INSPECTOR HC CBC,AUTOMATED Routine 05/31/2019 4:23 AM FILM FLAT INSPECTOR HC PHOSPHOROUS, SERUM Routine 05/31/2019 4:23 AM FILM FLAT INSPECTOR HC MAGNESIUM Routine 05/31/2019 4:23 AM FILM FLAT INSPECTOR HC BASIC METABOLIC PANEL Routine 05/31/2019 4:23 AM FILM FLAT INSPECTOR TACROLIMUS LEVEL(FK506) Routine 05/31/2019 4:00 AM FILM FLAT INSPECTOR POC GLUCOSE 05/30/2019 10:47 PM FILM FLAT INSPECTOR POC GLUCOSE 05/30/2019 7:34 PM FILM FLAT INSPECTOR HC PTT(APTT) STAT 05/30/2019 6:53 PM FILM FLAT INSPECTOR POC GLUCOSE 05/30/2019 6:43 PM FILM FLAT INSPECTOR POC GLUCOSE 05/30/2019 3:06 PM FILM FLAT INSPECTOR HEMODIALYSIS DATE Routine 05/30/2019 12:55 PM FILM FLAT INSPECTOR HEMODIALYSIS INPATIENT Routine 05/30/2019 12:55 PM FILM FLAT INSPECTOR POC GLUCOSE 05/30/2019 9:41 AM FILM FLAT INSPECTOR HC FK 506 Routine 05/30/2019 4:00 AM FILM FLAT INSPECTOR HC 25-OH VITAMIN D Routine 05/30/2019 4:00 AM FILM FLAT INSPECTOR HC PTT(APTT) 05/30/2019 4:00 AM FILM FLAT INSPECTOR HC CBC,AUTOMATED Routine 05/30/2019 4:00 AM FILM FLAT INSPECTOR HC PHOSPHOROUS, SERUM Routine 05/30/2019 4:00 AM FILM FLAT INSPECTOR HC MAGNESIUM Routine 05/30/2019 4:00 AM FILM FLAT INSPECTOR HC BASIC METABOLIC PANEL Routine 05/30/2019 4:00 AM FILM FLAT INSPECTOR CHEST SINGLE VIEW STAT 05/30/2019 2:32 AM FILM FLAT INSPECTOR HC PTT(APTT) STAT 05/29/2019 11:14 PM FILM FLAT INSPECTOR POC GLUCOSE 05/29/2019 10:06 PM FILM FLAT INSPECTOR POC GLUCOSE 05/29/2019 5:58 PM FILM FLAT INSPECTOR NJ BLOOD SMEAR PERIPHERAL Routine 05/29/2019 INTERP PHYS W/WRIT REPORT 5:04 PM FILM FLAT INSPECTOR HC PTT(APTT) STAT 05/29/2019 5:04 PM FILM FLAT INSPECTOR HC LD(LDH;LACTIC Routine 05/29/2019 DEHYDROGENASE) 5:04 PM FILM FLAT INSPECTOR HC HAPTOGLOBIN;QUANT Routine 05/29/2019 5:04 PM FILM FLAT INSPECTOR POC GLUCOSE 05/29/2019 2:33 PM FILM FLAT INSPECTOR POC GLUCOSE 05/29/2019 12:29 PM FILM FLAT INSPECTOR HC PTT(APTT) STAT 05/29/2019 11:15 AM FILM FLAT INSPECTOR POC GLUCOSE 05/29/2019 8:02 AM FILM FLAT INSPECTOR HC FK 506 Add on 05/29/2019 4:48 AM FILM FLAT INSPECTOR HC PTT(APTT) 05/29/2019 4:48 AM FILM FLAT INSPECTOR HC CBC,AUTOMATED Routine 05/29/2019 4:48 AM FILM FLAT INSPECTOR HC PHOSPHOROUS, SERUM Routine 05/29/2019 4:48 AM FILM FLAT INSPECTOR HC MAGNESIUM Routine 05/29/2019 4:48 AM FILM FLAT INSPECTOR HC BASIC METABOLIC PANEL Routine 05/29/2019 4:48 AM FILM FLAT INSPECTOR HC PTT(APTT) STAT 05/28/2019 11:04 PM FILM FLAT INSPECTOR POC GLUCOSE 05/28/2019 9:34 PM FILM FLAT INSPECTOR HC PTT(APTT) STAT 05/28/2019 5:50 PM FILM FLAT INSPECTOR BASIC METABOLIC PANEL STAT 05/28/2019 5:50 PM FILM FLAT INSPECTOR POC GLUCOSE 05/28/2019 5:14 PM FILM FLAT INSPECTOR US KIDNEY TRANSPLANT STAT 05/28/2019 2:58 PM FILM FLAT INSPECTOR POC GLUCOSE 05/28/2019 12:33 PM FILM FLAT INSPECTOR HC PTT(APTT) STAT 05/28/2019 11:31 AM FILM FLAT INSPECTOR POC GLUCOSE 05/28/2019 10:11 AM FILM FLAT INSPECTOR POC GLUCOSE 05/28/2019 8:14 AM FILM FLAT INSPECTOR POC GLUCOSE 05/28/2019 6:08 AM FILM FLAT INSPECTOR POC GLUCOSE 05/28/2019 5:02 AM FILM FLAT INSPECTOR HC PHOSPHOROUS, SERUM Routine 05/28/2019 4:35 AM FILM FLAT INSPECTOR HC MAGNESIUM Routine 05/28/2019 4:35 AM FILM FLAT INSPECTOR HC BASIC METABOLIC PANEL Routine 05/28/2019 4:35 AM FILM FLAT INSPECTOR HC PTT(APTT) STAT 05/28/2019 4:10 AM FILM FLAT INSPECTOR HC CBC,AUTOMATED Routine 05/28/2019 4:10 AM FILM FLAT INSPECTOR POC GLUCOSE 05/28/2019 4:01 AM FILM FLAT INSPECTOR POC GLUCOSE 05/28/2019 3:11 AM FILM FLAT INSPECTOR POC GLUCOSE 05/28/2019 2:06 AM FILM FLAT INSPECTOR POC GLUCOSE 05/28/2019 12:08 AM FILM FLAT INSPECTOR HC PTT(APTT) STAT 05/27/2019 11:10 PM FILM FLAT INSPECTOR POC GLUCOSE 05/27/2019 11:05 PM FILM FLAT INSPECTOR POC GLUCOSE 05/27/2019 9:58 PM FILM FLAT INSPECTOR HC DRUG INDUCED PLAT AB STAT 05/27/2019 9:25 PM FILM FLAT INSPECTOR HC CBC W/ AUTOMATED DIFF Routine 05/27/2019 9:25 PM FILM FLAT INSPECTOR HC LD(LDH;LACTIC STAT 05/27/2019 DEHYDROGENASE) 9:25 PM FILM FLAT INSPECTOR HC HAPTOGLOBIN;QUANT STAT 05/27/2019 9:25 PM FILM FLAT INSPECTOR HC BASIC METABOLIC PANEL Routine 05/27/2019 9:25 PM FILM FLAT INSPECTOR CONSULT IV THERAPY TEAM STAT 05/27/2019 9:10 PM FILM FLAT INSPECTOR POC GLUCOSE 05/27/2019 9:09 PM FILM FLAT INSPECTOR POC GLUCOSE 05/27/2019 8:02 PM FILM FLAT INSPECTOR CONSULT IV THERAPY TEAM STAT 05/27/2019 7:46 PM FILM FLAT INSPECTOR POC GLUCOSE 05/27/2019 6:38 PM FILM FLAT INSPECTOR HC PTT(APTT) 05/27/2019 4:38 PM FILM FLAT INSPECTOR CBC 05/27/2019 4:38 PM FILM FLAT INSPECTOR CONSULT IV THERAPY TEAM STAT 05/27/2019 4:17 PM FILM FLAT INSPECTOR US KIDNEY TRANSPLANT STAT 05/27/2019 3:55 PM FILM FLAT INSPECTOR POC GLUCOSE 05/27/2019 3:01 PM FILM FLAT INSPECTOR POC GLUCOSE 05/27/2019 1:59 PM FILM FLAT INSPECTOR POC GLUCOSE 05/27/2019 12:59 PM FILM FLAT INSPECTOR ALLOTRANSPLANTATION 05/27/2019 KIDNEY FROM NON LIVING 11:53 AM FILM FLAT INSPECTOR DONOR WITHOUT RECIPIENT NEPHRECTOMY HC POTASSIUM, POC 05/27/2019 11:46 AM FILM FLAT INSPECTOR CHEST 2 VIEWS Routine 05/27/2019 11:40 AM FILM FLAT INSPECTOR HC PTH Routine 05/27/2019 11:06 AM FILM FLAT INSPECTOR HC DONNA ARCE CAPSID AG Routine 05/27/2019 IGG 11:06 AM FILM FLAT INSPECTOR HC CMV TITER IGM Routine 05/27/2019 11:06 AM FILM FLAT INSPECTOR HC CMV IGG Routine 05/27/2019 11:06 AM FILM FLAT INSPECTOR HC PTT(APTT) Routine 05/27/2019 11:06 AM FILM FLAT INSPECTOR HC PT(INR) Routine 05/27/2019 11:06 AM FILM FLAT INSPECTOR HC CBC W/ AUTOMATED DIFF STAT 05/27/2019 11:06 AM FILM FLAT INSPECTOR HC ABO GROUP 05/27/2019 11:06 AM FILM FLAT INSPECTOR HC HEMOGLOBIN A1C Routine 05/27/2019 11:06 AM FILM FLAT INSPECTOR HC Routine 05/27/2019 LIPID-5:CHOL/TRG/HDL/LDL+ 11:06 AM FILM FLAT INSPECTOR VLDL HC COMPREHENSIVE STAT 05/27/2019 METABOLIC PANEL 11:06 AM FILM FLAT INSPECTOR POC GLUCOSE 05/27/2019 10:51 AM FILM FLAT INSPECTOR TELEMETRY STRIPS-SCAN 05/27/2019 12:00 AM FILM FLAT INSPECTOR documented in this encounter Results * DRAIN FLUID TRIGLYCERIDES (06/05/2019 9:20 AM FILM FLAT INSPECTOR) Drain Fluid 16Comment: Chyle leakage mg/dL [facility] OR IN LAB Triglycerides suggested by triglycerides >110 mg/dL Specimen Fluid Performing Organization Address [facility] one Number MAIN LAB [address] [place] [address] * DRAIN FLUID CREATININE (06/05/2019 9:20 AM FILM FLAT INSPECTOR) Drain Fluid 7.01 mg/dL MAIN LAB Creatinine Comment: Body fluid to serum creatinine ratios >1.0 suggest the specimen may be contaminated with urine Specimen Drainage Performing Organization Address [facility] one Number MAIN LAB [address] [place] [address] * CELL COUNT W/DIFF-FLUIDS (06/05/2019 9:20 AM FILM FLAT INSPECTOR) White Blood 120 /UL [facility] MAIN LAB Cells,Fluid Red Blood 2,700 /UL [facility] MAIN LAB Cells,Fluid Segmented 82 % [facility] MAIN LAB Neutrophils, Fluid Lymphocytes,Flu 16 % [facility] MAIN LAB id Monocyte/Histo, 2 % [facility] MAIN LAB Fluid Fluid Source MISC FLUID [facility] MAIN LAB Pathology NEGATIVE FOR MALIGNANT CELLS [facility] MAIN LAB Interpretation, Fluid Pathologist INTERPRETED BY BRADLEY Trevino LAB Signature MChristiano Pathologist By the PATH SIGNATURE ABOVE, I CLAUDIA Trevino LAB Signature attest that I have personal ly formulated the final interpretation expressed in this report and that the above diagnosis is based upon my examination of the slides and/or other material indicated in this report. Specimen Fluid - Misc Fluid Performing Organization Address [facility] one Number MAIN LAB [address] [place] [address] * POC GLUCOSE (06/01/2019 12:29 PM FILM FLAT INSPECTOR) Glucose, POC 175 (H) 70 - 100 MG/DL [facility] MAIN LAB Specimen Performing Organization Address [facility] one Number MAIN LAB [address] [place] [address] * POC GLUCOSE (06/01/2019 8:37 AM FILM FLAT INSPECTOR) Glucose, POC 213 (H) 70 - 100 MG/DL [facility] MAIN LAB Specimen Performing Organization Address [facility] one Number MAIN LAB [address] [place] [address] * PTT (APTT) (06/01/2019 4:20 AM FILM FLAT INSPECTOR) APTT 50.5 (H) 24.0 - 36.5 SEC MAIN LAB Specimen Blood Performing Organization Address [facility] one Number MAIN LAB [address] [place] [address] * PHOSPHORUS (06/01/2019 4:20 AM FILM FLAT INSPECTOR) Phosphorus 5.3 (H)Comment: NOTE NEW 2.0 - 4.5 MG/DL [facility] Specimen Blood Performing Organization Address [facility] one Number MAIN LAB [address] [place] [address] * MAGNESIUM (06/01/2019 4:20 AM FILM FLAT INSPECTOR) Magnesium 2.1 1.6 - 2.6 mg/dL MAIN LAB Specimen Blood Performing Organization Address [facility] one Number MAIN LAB [address] [place] [address] * CBC (06/01/2019 4:20 AM FILM FLAT INSPECTOR) White Blood 4.4 (L) 4.5 - 11.0 K/UL MAIN LAB Cells RBC 3.06 (L) 4.4 - 5.5 M/UL MAIN LAB Hemoglobin 9.9 (L) 13.5 - 16.5 GM/DL MAIN LAB Hematocrit 28.9 (L) 40 - 50 % MAIN LAB MCV 94.2 80 - 100 FL MAIN LAB MCH 32.2 26 - 34 PG MAIN LAB MCHC 34.2 32.0 - 36.0 G/DL MAIN LAB RDW 14.4 11 - 15 % MAIN LAB Platelet Count 100 (L) 150 - 400 K/UL MAIN LAB MPV 9.8 7 - 11 FL MAIN LAB Specimen Blood Performing Organization Address [facility] one Number MAIN LAB [address] [place] [address] * BASIC METABOLIC PANEL (06/01/2019 4:20 AM FILM FLAT INSPECTOR) Sodium 138 137 - 147 MMOL/L MAIN LAB Potassium 3.8 3.5 - 5.1 MMOL/L MAIN LAB Chloride 99 98 - 110 MMOL/L [facility] MAIN LAB CO2 26 21 - 30 MMOL/L [facility] MAIN LAB Anion Gap 13 (H) 3 - 12 MAIN LAB Glucose 216 (H) 70 - 100 MG/DL MAIN LAB Blood Urea 63 (H) 7 - 25 MG/DL MAIN LAB Nitrogen Creatinine 6.80 (H) 0.4 - 1.24 MG/DL MAIN LAB Calcium 8.3 (L) 8.5 - 10.6 MG/DL MAIN LAB eGFR Non 9 (L) >60 mL/min MAIN LAB Comment: [place] The eGFR is not validated f or use in drug dosing adjustments. Continue to use estimated creatinine clearance per dosing reference text. Please contact the Clinical Pharmacist for questions. eGFR 11 (L) >60 mL/min MAIN LAB [place] Comment: The eGFR is not validated for use in drug dosing adjustments. Continue to use estimated creatinine clearance per dosing reference text. Please contact the Clinical Pharmacist for questions. Specimen Blood Performing Organization Address [facility] one Number MAIN LAB [address] [place] [id number] * TACROLIMUS LEVEL(FK506) (06/01/2019 4:20 AM FILM FLAT INSPECTOR) Tacrolimus 11.8 2 - 15 NG/ML MAIN LAB Comment: Target concentrations vary by type of transplant, patient response, concomitant immunosuppression and post-transplant time interval. Test was performed on whole blood using [employer] QMS reagent and a Liliana [place] AU analyzer. Specimen Blood Performing Organization Address [facility] Ph one Number MAIN LAB [address] [place] [id number] * POC GLUCOSE (05/31/2019 9:15 PM FILM FLAT INSPECTOR) Glucose, POC 177 (H) 70 - 100 MG/DL [facility] MAIN LAB Specimen Performing Organization Address [facility] one Number MAIN LAB [address] [place] [address] * POC GLUCOSE (05/31/2019 5:59 PM FILM FLAT INSPECTOR) Glucose, POC 196 (H) 70 - 100 MG/DL MAIN LAB Specimen Performing Organization Address [facility] one Number MAIN LAB [address] [place] [address] * PTT (APTT) (05/31/2019 4:40 PM FILM FLAT INSPECTOR) APTT 102.1 (H) 24.0 - 36.5 SEC MAIN LAB Specimen Blood Performing Organization Address City/[facility] Ph one Number MAIN LAB [address] [place] [address] * POC GLUCOSE (05/31/2019 12:09 PM FILM FLAT INSPECTOR) Glucose, POC 183 (H) 70 - 100 MG/DL MAIN LAB Specimen Performing Organization Address [facility] Number MA[facility] LAB [address] [place] [address] * POC GLUCOSE (05/31/2019 8:13 AM FILM FLAT INSPECTOR) Glucose, POC 133 (H) 70 - 100 MG/DL MAIN LAB Specimen Performing Organization Address [facility] Ph one Number MAIN LAB [address] [place] [address] * PTT (APTT) (05/31/2019 4:23 AM FILM FLAT INSPECTOR) APTT 43.4 (H) 24.0 - 36.5 SEC MAIN LAB Specimen Performing Organization Address [facility] Ph one Number MAIN LAB [address] [place] [address] * TACROLIMUS LEVEL([id number]) (05/31/2019 4:23 AM FILM FLAT INSPECTOR) Tacrolimus 16.2 (HH) 2 - 15 NG/ML MAIN LAB Comment: CRITICAL VALUE CALLED TO AND READ BACK BY/TIME/TECH JAIME CABALLERO at 05/31/2019 11:02:55 by 1025 Target concentrations vary by type of transplant, patient response, concomitant immunosuppression and post-transplant time interval. Test was performed on whole blood using [employer] QMS reagent and a Liliana [place] AU analyzer. Specimen Performing Organization Address [facility] one Number MAIN LAB [address] [place] [address] * PHOSPHORUS (05/31/2019 4:23 AM FILM FLAT INSPECTOR) Pathologist [facility] Phosphorus 5.0 (H)Comment: NOTE NEW 2.0 - 4.5 MG/DL [facility] LAB REFERENCE RANGES Specimen Blood Performing Organization Address [facility] Ph one Number MAIN LAB [address] [place] [address] * MAGNESIUM (05/31/2019 4:23 AM FILM FLAT INSPECTOR) Pathologist [facility] Magnesium 2.2Comment: MODERATE HEMOLYSIS 1.6 - 2.6 mg/dL MAIN LAB Specimen Blood Performing Organization Address [facility] one Number MAIN LAB [address] [place] [id number] * CBC (05/31/2019 4:23 AM FILM FLAT INSPECTOR) Pathologist [facility] White Blood 3.4 (L) 4.5 - 11.0 K/UL [facility] LAB Cells RBC 2.93 (L) 4.4 - 5.5 M/UL [facility] LAB Hemoglobin 9.6 (L) 13.5 - 16.5 GM/DL [facility] LAB Hematocrit 27.3 (L) 40 - 50 % [facility] LAB MCV 93.1 80 - 100 FL MAIN LAB MCH 32.8 26 - 34 PG MAIN LAB MCHC 35.2 32.0 - 36.0 G/DL MAIN LAB RDW 14.7 11 - 15 % [facility] MAIN LAB Platelet Count 135 (L) 150 - 400 K/UL MAIN LAB MPV 9.7 7 - 11 FL MAIN LAB Specimen Blood Performing Organization Address [facility] one Number MAIN LAB [address] [place] [address] * BASIC METABOLIC PANEL (05/31/2019 4:23 AM FILM FLAT INSPECTOR) Pathologist [facility] Sodium 138 137 - 147 MMOL/L MAIN [...] 10 (L) >60 mL/min MAIN LAB Comment: [place] The eGFR is not validated f or use in drug dosing adjustments. Continue to use estimated creatinine clearance per dosing reference text. Please contact the Clinical Pharmacist for questions. eGFR 12 (L) >60 mL/min MAIN LAB [place] Comment: The eGFR is not validated for use in drug dosing adjustments. Continue to use estimated creatinine clearance per dosing reference text. Please contact the Clinical Pharmacist for questions. Specimen Blood Performing Organization Address [facility] one Number MAIN LAB [address] [place] [phone] * TACROLIMUS LEVEL([id number]) (05/31/2019 4:00 AM FILM FLAT INSPECTOR) Tacrolimus CANCELED BY LAB SYSTEM 2 - 15 NG/ML MAIN LAB Specimen Blood Performing Organization Address [facility] one Number MAIN LAB [address] [place] [address] * POC GLUCOSE (05/30/2019 10:47 PM FILM FLAT INSPECTOR) Glucose, POC 231 (H) 70 - 100 MG/DL MAIN LAB Specimen Performing Organization Address [facility] Ph one Number MAIN LAB [address] [place] [address] * POC GLUCOSE (05/30/2019 7:34 PM FILM FLAT INSPECTOR) Glucose, POC 241 (H) 70 - 100 MG/DL MAIN LAB Specimen Performing Organization Address [facility] one Number MAIN LAB [address] [place] [phone] * PTT (APTT) (05/30/2019 6:53 PM FILM FLAT INSPECTOR) APTT 80.7 (H) 24.0 - 36.5 SEC MAIN LAB Specimen Blood Performing Organization Address [facility] Ph one Number MAIN LAB [address] [place] [address] * POC GLUCOSE (05/30/2019 6:43 PM FILM FLAT INSPECTOR) Glucose, POC 273 (H) 70 - 100 MG/DL MAIN LAB Specimen Performing Organization Address [facility] Ph one Number MAIN LAB [address] [place] [address] * POC GLUCOSE (05/30/2019 3:06 PM FILM FLAT INSPECTOR) Glucose, POC 146 (H) 70 - 100 MG/DL MAIN LAB Specimen Performing Organization Address [facility] Ph one Number MAIN LAB [address] [place] [address] * HEMODIALYSIS INPATIENT (05/30/2019 12:55 PM FILM FLAT INSPECTOR) Narrative Performed At Segundo Mahajan RN 05/30/2019 3 :05 PM Report received from Primary Care lew SANDOVAL HD RN at 1030am. Pt arrived via bed from [facility] and [facility] to nbp, oxcemitry, and cardiac monitoring. Pt [...] treatment well. Pt without complaint post treatment. [place] pulled one at at time, hemostas is achieved in less than 5 min on each cannulation site. Access sites dressed with gauze and pap er tape. Report given to Primary Care Leah SANDOVAL at around 1500. Pt placed in transportation at 1430 and left unit at 1450 via bed. See Dialysis Flowsheet and MAR for deta ils. * HEMODIALYSIS DATE (05/30/2019 12:55 PM FILM FLAT INSPECTOR) Narrative Performed At Segundo Mahajan RN 05/30/2019 3 :05 PM Report received from Primary Care lew SANDOVAL HD RN at 1030am. Pt arrived via bed from [facility] and [facility] to nbp, oxcemitry, and cardiac monitoring. Pt [...] treatment well. Pt without complaint post treatment. [place] pulled one at at time, hemostas is achieved in less than 5 min on each cannulation site. Access sites dressed with gauze and pap er tape. Report given to Primary Care Leah SANDOVAL at around 1500. Pt placed in transportation at 1430 and left unit at 1450 via bed. See Dialysis Flowsheet and MAR for deta ils. * POC GLUCOSE (05/30/2019 9:41 AM FILM FLAT INSPECTOR) Glucose, POC 259 (H) 70 - 100 MG/DL MAIN LAB Specimen Performing Organization Address [facility] Ph one Number MAIN LAB [address] [place] [address] * PTT (APTT) (05/30/2019 4:00 AM FILM FLAT INSPECTOR) APTT 60.5 (H) 24.0 - 36.5 SEC MAIN LAB Specimen Performing Organization Address [facility] Ph one Number MAIN LAB [address] [place] [address] * TACROLIMUS LEVEL([id number]) (05/30/2019 4:00 AM FILM FLAT INSPECTOR) Tacrolimus 15.7 (H) 2 - 15 NG/ML [facility] MAIN LAB Comment: Target concentrations vary by type of transplant, patient response, concomitant immunosuppression and post-transplant time interval. Test was performed on whole blood using [employer] QMS reagent and a Liliana [place] AU analyzer. Specimen Blood Performing Organization Address [facility] Number MAIN LAB [address] [place] [address] * BASIC METABOLIC PANEL (05/30/2019 4:00 AM FILM FLAT INSPECTOR) Sodium 131 (L) 137 - 147 MMOL/L [...] (L) >60 mL/min [facility] MAIN LAB Comment: [place] The eGFR is not validated f or use in drug dosing adjustments. Continue to use estimated creatinine clearance per dosing reference text. Please contact the Clinical Pharmacist for questions. eGFR 7 (L) >60 mL/min KU MAIN LAB Mexican Comment: The eGFR is not validated for use in drug dosing adjustments. Continue to use estimated creatinine clearance per dosing reference text. Please contact the Clinical Pharmacist for questions. Specimen Blood Performing Organization Address [facility] Ph one Number MAIN LAB [address] [place] [address] * PHOSPHORUS (05/30/2019 4:00 AM FILM FLAT INSPECTOR) Phosphorus 5.8 (H)Comment: NOTE NEW 2.0 - 4.5 MG/DL [facility] REFERENCE RANGES Specimen Blood Performing Organization Address City/[facility]/Zipcode Ph one Number MAIN LAB [address] [place] [address] * MAGNESIUM (05/30/2019 4:00 AM FILM FLAT INSPECTOR) Magnesium 1.9 1.6 - 2.6 mg/dL MAIN LAB Specimen Blood Performing Organization Address City/[facility]/Zipcode Ph one Number MAIN LAB [address] [place] [address] * CBC (05/30/2019 4:00 AM FILM FLAT INSPECTOR) White Blood 4.1 (L) 4.5 - 11.0 [...] MAIN LAB Specimen Blood Performing Organization Address [facility] Ph one Number KU MAIN LAB [address] [place] [address] * 25-OH VITAMIN D (D2 + D3) (05/30/2019 4:00 AM FILM FLAT INSPECTOR) Vitamin 12.3 (L) 30 - 80 NG/ML [facility] MAIN LAB D(25-OH)Total Specimen Blood Performing Organization Address [facility] Ph one Number MAIN LAB [address] [place] [address] * CHEST SINGLE VIEW (05/30/2019 2:32 AM FILM FLAT INSPECTOR) Specimen Impressions Performed At Mild cardiomegaly and [...] Interface, Radiant Results - 05/30/2019 10:40 AM FILM FLAT INSPECTOR CHEST SINGLE VIEW Clinical Indication: Male, 49 [...] Jose Gill D.O. on 05/30/2019 8:32 AM. Performing Organization Address [facility] one Number RAD RESULTS * PTT (APTT) (05/29/2019 11:14 PM FILM FLAT INSPECTOR) APTT 28.1 24.0 - 36.5 SEC MAIN LAB Specimen Blood Performing Organization Address [facility] Ph one Number MAIN LAB [address] [place] [address] * POC GLUCOSE (05/29/2019 10:06 PM FILM FLAT INSPECTOR) Glucose, POC 243 (H) 70 - 100 MG/DL MAIN LAB Specimen Performing Organization Address [facility] Ph one Number MAIN LAB [address] [place] [address] * POC GLUCOSE (05/29/2019 5:58 PM FILM FLAT INSPECTOR) Glucose, POC 220 (H) 70 - 100 MG/DL MAIN LAB Specimen Performing Organization Address [facility] Ph one Number MAIN LAB [address] [place] [address] * PTT (APTT) (05/29/2019 5:04 PM FILM FLAT INSPECTOR) APTT 31.7 24.0 - 36.5 SEC MAIN LAB Specimen Blood Performing Organization Address [facility] Ph one Number MAIN LAB [address] [place] [address] * PERIPHERAL SMEAR (05/29/2019 5:04 PM FILM FLAT INSPECTOR) Peripheral NORMOCYTIC ANEMIA. MAIN LAB Smear ABSOLUTE LYMPHOCYTOPENIA. MODERATE THROMBOCYTOPENIA WITH NORMAL PLATELET MORPHOLOGY. Pathologist INTERPRETED BY HARRIET RAYMOND M.D. [facility] L AB Signature By the PATH SIGNATURE ABOVE , I attest that I have personally formulated the final interpretation expressed in this report and that the above diagnosis is based upon my examination of the slides and/or other material indicated in this report. Specimen Blood Performing Organization Address City/[facility] one Number MAIN LAB [address] [place] [address] * HAPTOGLOBIN (05/29/2019 5:04 PM FILM FLAT INSPECTOR) Pathologist [facility] Haptoglobin 179 16 - 200 MG/DL MAIN LAB Specimen Blood Performing Organization Address [facility] one Number MAIN LAB [address] [place] [address] * LDH-LACTATE DEHYDROGENASE (05/29/2019 5:04 PM FILM FLAT INSPECTOR) Pathologist [facility] Lactate 239 (H) 100 - 210 U/L [facility] LAB Dehydrogenase Specimen Blood Performing Organization Address [facility] one Number MAIN LAB [address] [place] [address] * POC GLUCOSE (05/29/2019 2:33 PM FILM FLAT INSPECTOR) Glucose, POC 320 (H) 70 - 100 MG/DL MAIN LAB Specimen Performing Organization Address [facility] one Number MAIN LAB [address] [place] [address] * POC GLUCOSE (05/29/2019 12:29 PM FILM FLAT INSPECTOR) Glucose, POC 360 (H) 70 - 100 MG/DL MAIN LAB Specimen Performing Organization Address [facility] one Number MAIN LAB [address] [place] [address] * PTT (APTT) (05/29/2019 11:15 AM FILM FLAT INSPECTOR) Pathologist [facility] APTT 28.7 24.0 - 36.5 SEC MAIN LAB Specimen Blood Performing Organization Address [facility] one Number MAIN LAB [address] [place] [address] * POC GLUCOSE (05/29/2019 8:02 AM FILM FLAT INSPECTOR) Glucose, POC 326 (H) 70 - 100 MG/DL MAIN LAB Specimen Performing Organization Address City/[facility] Ph one Number MAIN LAB [address] [place] [address] * TACROLIMUS LEVEL([id number]) (05/29/2019 4:48 AM FILM FLAT INSPECTOR) Tacrolimus 17.5 (HH) 2 - 15 NG/ML MAIN LAB Comment: CRITICAL VALUE CALLED TO AND READ BACK BY/TIME/TECH RN A MINOR at 05/29/2019 10:45:09 by 57 Target concentrations vary by type of transplant, patient response, concomitant immunosuppression and post-transplant time interval. Test was performed on whole blood using SolairedirectS reagent and a [place] AU analyzer. Specimen Blood Performing Organization Address City/[facility] Ph one Number MAIN LAB [address] [place] [address] * PTT (APTT) (05/29/2019 4:48 AM FILM FLAT INSPECTOR) APTT 29.2 24.0 - 36.5 SEC MAIN LAB Specimen Performing Organization Address City/[facility] Ph one Number MAIN LAB [address] [place] [address] * BASIC METABOLIC PANEL (05/29/2019 4:48 AM FILM FLAT INSPECTOR) Sodium 130 (L) 137 - 147 MMOL/L MAIN LAB Potassium 4.1 3.5 - 5.1 MMOL/L MAIN LAB Chloride 96 (L) 98 - 110 MMOL/L [facility] MAIN LAB CO2 18 (L) 21 - 30 MMOL/L [facility] MAIN LAB Anion Gap 16 (H) 3 - 12 [facility] MAIN LAB Glucose 283 (H) 70 - 100 MG/DL MAIN LAB Blood Urea 65 (H) 7 - 25 MG/DL [facility] MAIN LAB Nitrogen Creatinine 8.21 (H) 0.4 - 1.24 MG/DL MAIN LAB Calcium 6.8 (L) 8.5 - 10.6 MG/DL MAIN LAB eGFR Non 7 (L) >60 mL/min MAIN LAB Comment: [place] The eGFR is not validated f or use in drug dosing adjustments. Continue to use estimated creatinine clearance per dosing reference text. Please contact the Clinical Pharmacist for questions. eGFR 9 (L) >60 mL/min MAIN LAB [place] Comment: The eGFR is not validated for use in drug dosing adjustments. Continue to use estimated creatinine clearance per dosing reference text. Please contact the Clinical Pharmacist for questions. Specimen Blood Performing Organization Address [facility] one Number MAIN LAB [address] [place] [address] * PHOSPHORUS (05/29/2019 4:48 AM FILM FLAT INSPECTOR) Phosphorus 6.6 (H)Comment: NOTE NEW 2.0 - 4.5 MG/DL [facility] LAB REFERENCE RANGES Specimen Blood Performing Organization Address [facility] one Number MAIN LAB [address] [place] [address] * MAGNESIUM (05/29/2019 4:48 AM FILM FLAT INSPECTOR) Magnesium 1.7 1.6 - 2.6 mg/dL MAIN LAB Specimen Blood Performing Organization Address [facility] one Number MAIN LAB [address] [place] [address] * CBC (05/29/2019 4:48 AM FILM FLAT INSPECTOR) White Blood 5.7 4.5 - 11.0 K/UL MAIN LAB Cells RBC 2.93 (L) 4.4 - 5.5 M/UL MAIN LAB Hemoglobin 9.4 (L) 13.5 - 16.5 GM/DL MAIN LAB Hematocrit 27.6 (L) 40 - 50 % MAIN LAB MCV 94.4 80 - 100 FL MAIN LAB MCH 32.0 26 - 34 PG MAIN LAB MCHC 33.9 32.0 - 36.0 G/DL [facility] LAB RDW 14.2 11 - 15 % MAIN LAB Platelet Count 96 (L) 150 - 400 K/UL MAIN LAB MPV 9.9 7 - 11 FL MAIN LAB Specimen Blood Performing Organization Address [facility] one Number MAIN LAB [address] [place] [id number] * PTT (APTT) (05/28/2019 11:04 PM FILM FLAT INSPECTOR) APTT 30.4 24.0 - 36.5 SEC MAIN LAB Specimen Blood Performing Organization Address [facility] one Number MAIN LAB [address] [place] [address] * POC GLUCOSE (05/28/2019 9:34 PM FILM FLAT INSPECTOR) Glucose, POC 206 (H) 70 - 100 MG/DL MAIN LAB Specimen Performing Organization Address [facility] one Number MAIN LAB [address] [place] [address] * PTT (APTT) (05/28/2019 5:50 PM FILM FLAT INSPECTOR) APTT 32.8 24.0 - 36.5 SEC MAIN LAB Specimen Blood Performing Organization Address [facility] one Number MAIN LAB [address] [place] [address] * BASIC METABOLIC PANEL (05/28/2019 5:50 PM FILM FLAT INSPECTOR) Sodium 130 (L) 137 - 147 MMOL/L [...] 7 (L) >60 mL/min MAIN LAB Comment: [place] The eGFR is not validated f or use in drug dosing adjustments. Continue to use estimated creatinine clearance per dosing reference text. Please contact the Clinical Pharmacist for questions. eGFR 9 (L) >60 mL/min MAIN LAB [place] Comment: The eGFR is not validated for use in drug dosing adjustments. Continue to use estimated creatinine clearance per dosing reference text. Please contact the Clinical Pharmacist for questions. Specimen Blood Performing Organization Address [facility] one Number MAIN LAB [address] [place] [address] * POC GLUCOSE (05/28/2019 5:14 PM FILM FLAT INSPECTOR) Glucose, POC 111 (H) 70 - 100 MG/DL MAIN LAB Specimen Performing Organization Address City/State/Zipcode Ph one Number KU MAIN LAB [address] [place] [address] * US KIDNEY TRANSPLANT (05/28/2019 2:58 PM FILM FLAT INSPECTOR) Specimen Impressions Performed At 1. Continued unremarkable [...] Interface, Radiant Results - 05/28/2019 4:36 PM FILM FLAT INSPECTOR ULTRASOUND OF TRANSPLANT KIDNEY CLINICAL INDICATION: Male, [...] on 05/28/2019 4:29 PM. Performing Organization Address [facility] Ph one Number RAD RESULTS * POC GLUCOSE (05/28/2019 12:33 PM FILM FLAT INSPECTOR) Glucose, POC 111 (H) 70 - 100 MG/DL MAIN LAB Specimen Performing Organization Address [facility] Ph one Number MAIN LAB [address] [place] [address] * PTT (APTT) (05/28/2019 11:31 AM FILM FLAT INSPECTOR) APTT 30.3 24.0 - 36.5 SEC MAIN LAB Specimen Blood Performing Organization Address [facility] Ph one Number MAIN LAB [address] [place] [address] * POC GLUCOSE (05/28/2019 10:11 AM FILM FLAT INSPECTOR) Glucose, POC 127 (H) 70 - 100 MG/DL MAIN LAB Specimen Performing Organization Address [facility] Ph one Number MAIN LAB [address] [place] [address] * POC GLUCOSE (05/28/2019 8:14 AM FILM FLAT INSPECTOR) Glucose, POC 120 (H) 70 - 100 MG/DL [facility] MAIN LAB Specimen Performing Organization Address [facility] one Number MAIN LAB [address] [place] [address] * POC GLUCOSE (05/28/2019 6:08 AM FILM FLAT INSPECTOR) Glucose, POC 132 (H) 70 - 100 MG/DL MAIN LAB Specimen Performing Organization Address [facility] one Number MAIN LAB [address] [place] [address] * POC GLUCOSE (05/28/2019 5:02 AM FILM FLAT INSPECTOR) Glucose, POC 126 (H) 70 - 100 MG/DL MAIN LAB Specimen Performing Organization Address [facility] one Number MAIN LAB [address] [place] [address] * BASIC METABOLIC PANEL (05/28/2019 4:35 AM FILM FLAT INSPECTOR) Sodium 132 (L) 137 - 147 MMOL/L MAIN LAB Potassium 3.8 3.5 - 5.1 MMOL/L MAIN LAB Chloride 97 (L) 98 - 110 MMOL/L [facility] MAIN LAB CO2 22 21 - 30 MMOL/L [facility] MAIN LAB Anion Gap 13 (H) 3 - 12 [facility] MAIN LAB Glucose 145 (H) 70 - 100 MG/DL MAIN LAB Blood Urea 47 (H) 7 - 25 MG/DL MAIN LAB Nitrogen Creatinine 7.34 (H) 0.4 - 1.24 MG/DL MAIN LAB Calcium 7.3 (L) 8.5 - 10.6 MG/DL MAIN LAB eGFR Non 8 (L) >60 mL/min MAIN LAB Comment: [place] The eGFR is not validated f or use in drug dosing adjustments. Continue to use estimated creatinine clearance per dosing reference text. Please contact the Clinical Pharmacist for questions. eGFR 10 (L) >60 mL/min [facility] LAB [place] Comment: The eGFR is not validated for use in drug dosing adjustments. Continue to use estimated creatinine clearance per dosing reference text. Please contact the Clinical Pharmacist for questions. Specimen Blood Performing Organization Address [facility] one Number MAIN LAB [address] [place] [address] * PHOSPHORUS (05/28/2019 4:35 AM FILM FLAT INSPECTOR) Phosphorus 3.2Comment: NOTE NEW REFERENCE 2.0 - 4.5 MG/DL MAIN LAB RANGES Specimen Blood Performing Organization Address [facility] Ph one Number MAIN LAB [address] [place] [address] * MAGNESIUM (05/28/2019 4:35 AM FILM FLAT INSPECTOR) Magnesium 1.7 1.6 - 2.6 mg/dL MAIN LAB Specimen Blood Performing Organization Address [facility] one Number MAIN LAB [address] [place] [address] * PTT (APTT) (05/28/2019 4:10 AM FILM FLAT INSPECTOR) APTT 31.8 24.0 - 36.5 SEC MAIN LAB Specimen Blood Performing Organization Address [facility] one Number MAIN LAB [address] [place] [address] * CBC (05/28/2019 4:10 AM FILM FLAT INSPECTOR) White Blood 10.0 4.5 - 11.0 K/UL [...] MAIN LAB Specimen Blood Performing Organization Address [facility] one Number MAIN LAB [address] [place] [address] * POC GLUCOSE (05/28/2019 4:01 AM FILM FLAT INSPECTOR) Glucose, POC 147 (H) 70 - 100 MG/DL MAIN LAB Specimen Performing Organization Address [facility] Ph one Number MAIN LAB [address] [place] [address] * POC GLUCOSE (05/28/2019 3:11 AM FILM FLAT INSPECTOR) Glucose, POC 155 (H) 70 - 100 MG/DL [facility] MAIN LAB Specimen Performing Organization Address City/[facility] Ph one Number MAIN LAB [address] [place] [address] * POC GLUCOSE (05/28/2019 2:06 AM FILM FLAT INSPECTOR) Glucose, POC 167 (H) 70 - 100 MG/DL [facility] MAIN LAB Specimen Performing Organization Address [facility] Ph one Number MAIN LAB [address] [place] [address] * POC GLUCOSE (05/28/2019 12:08 AM FILM FLAT INSPECTOR) Glucose, POC 151 (H) 70 - 100 MG/DL MAIN LAB Specimen Performing Organization Address [facility] one Number MAIN LAB [address] [place] [address] * PTT (APTT) (05/27/2019 11:10 PM FILM FLAT INSPECTOR) APTT 31.5 24.0 - 36.5 SEC MAIN LAB Specimen Blood Performing Organization Address [facility] one Number MAIN LAB [address] [place] [address] * POC GLUCOSE (05/27/2019 11:05 PM FILM FLAT INSPECTOR) Glucose, POC 137 (H) 70 - 100 MG/DL MAIN LAB Specimen Performing Organization Address [facility] Ph one Number MAIN LAB [address] [place] [address] * POC GLUCOSE (05/27/2019 9:58 PM FILM FLAT INSPECTOR) Glucose, POC 124 (H) 70 - 100 MG/DL MAIN LAB Specimen Performing Organization Address [facility] one Number MAIN LAB [address] [place] [address] * LDH-LACTATE DEHYDROGENASE (05/27/2019 9:25 PM FILM FLAT INSPECTOR) Lactate 231 (H) 100 - 210 U/L MAIN LAB Dehydrogenase Specimen Blood Performing Organization Address [facility] one Number MAIN LAB [address] [place] [address] * HEPARIN INDUCED PLT AB (HIT) (05/27/2019 9:25 PM FILM FLAT INSPECTOR) Heparin Induced NEGATIVEComment: TEST NEGA-NEGATIVE MAIN LAB Plt AB PERFORMED BY [facility] LAB Heparin AB OD 0.073 0.000 - 0.499 MAIN LAB Specimen Blood Performing Organization Address [facility] one Number MAIN LAB [address] [place] [address] * HAPTOGLOBIN (05/27/2019 9:25 PM FILM FLAT INSPECTOR) [facility] Haptoglobin 137 16 - 200 MG/DL MAIN LAB Specimen Blood Performing Organization Address [facility] one Number KU MAIN LAB [address] [place] [address] * BASIC METABOLIC PANEL (05/27/2019 9:25 PM FILM FLAT INSPECTOR) [facility] Sodium 132 (L) 137 - 147 MMOL/L [...] Creatinine 7.07 (H) 0.4 - 1.24 MG/DL MAIN LAB Calcium 7.3 (L) 8.5 - 10.6 MG/DL MAIN LAB eGFR Non 8 (L) >60 mL/min MAIN LAB Comment: [place] The eGFR is not validated f or use in drug dosing adjustments. Continue to use estimated creatinine clearance per dosing reference text. Please contact the Clinical Pharmacist for questions. eGFR 10 (L) >60 mL/min MAIN LAB [place] Comment: The eGFR is not validated for use in drug dosing adjustments. Continue to use estimated creatinine clearance per dosing reference text. Please contact the Clinical Pharmacist for questions. Specimen Blood Performing Organization Address [facility] one Number MAIN LAB [address] [place] [address] * CBC AND DIFF (05/27/2019 9:25 PM FILM FLAT INSPECTOR) [facility] White Blood 10.0 4.5 - 11.0 K/UL MAIN LAB Cells RBC 3.39 (L) 4.4 - 5.5 M/UL KU MAIN LAB Hemoglobin 11.0 (L) 13.5 - 16.5 GM/DL KU MAIN LAB Hematocrit 31.8 (L) 40 - 50 % MAIN LAB MCV 94.0 80 - 100 FL MAIN LAB MCH 32.4 26 - 34 PG MAIN LAB MCHC 34.4 32.0 - 36.0 G/DL MAIN LAB RDW 14.0 11 - 15 % KU MAIN LAB Platelet Count 112 (L) 150 - 400 K/UL MAIN LAB MPV 9.7 7 - 11 FL MAIN LAB Neutrophils 97 (H) 41 - 77 % KU MAIN LAB Lymphocytes 0 (L) 24 - 44 % KU MAIN LAB Monocytes 2 (L) 4 - 12 % MAIN LAB Eosinophils 0 0 - 5 % MAIN LAB Basophils 1 0 - 2 % MAIN LAB Absolute 9.60 (H) 1.8 - 7.0 K/UL KU MAIN LAB Neutrophil Count Absolute Lymph 0.00 (L) 1.0 - 4.8 K/UL MAIN LAB Count Absolute 0.20 0 - 0.80 K/UL MAIN LAB Monocyte Count Absolute 0.00 0 - 0.45 K/UL MAIN LAB Eosinophil Count Absolute 0.10 0 - 0.20 K/UL MAIN LAB Basophil Count Specimen Blood Performing Organization Address [facility] Ph one Number MAIN LAB [address] [place] [address] * POC GLUCOSE (05/27/2019 9:09 PM FILM FLAT INSPECTOR) Glucose, POC 164 (H) 70 - 100 MG/DL MAIN LAB Specimen Performing Organization Address [facility] Ph one Number MAIN LAB [address] [place] [address] * POC GLUCOSE (05/27/2019 8:02 PM FILM FLAT INSPECTOR) Glucose, POC 134 (H) 70 - 100 MG/DL MAIN LAB Specimen Performing Organization Address [facility] Ph one Number MAIN LAB [address] [place] [address] * POC GLUCOSE (05/27/2019 6:38 PM FILM FLAT INSPECTOR) Glucose, POC 110 (H) 70 - 100 MG/DL KU MAIN LAB Specimen Performing Organization Address [facility] Ph one Number KU MAIN LAB [address] [place] [address] * PTT (APTT) (05/27/2019 4:38 PM FILM FLAT INSPECTOR) APTT 48.1 (H) 24.0 - 36.5 SEC KU MAIN LAB Specimen Performing Organization Address City/[facility] Ph one Number KU MAIN LAB [address] [place] [address] * CBC (05/27/2019 4:38 PM FILM FLAT INSPECTOR) White Blood 4.9 4.5 - 11.0 K/UL [...] KU MAIN LAB Specimen Performing Organization Address City/[facility] Ph one Number KU MAIN LAB [address] [place] [address] * US KIDNEY TRANSPLANT (05/27/2019 3:55 PM FILM FLAT INSPECTOR) Specimen Impressions Performed At Normal-appearing renal transplant [...] Interface, Radiant Results - 05/27/2019 3:59 PM FILM FLAT INSPECTOR Ultrasound of transplant kidney Clinical Indication: 49-year-old [...] on 05/27/2019 3:48 PM. Performing Organization Address [facility] Ph one Number KU RAD RESULTS * POC GLUCOSE (05/27/2019 3:01 PM FILM FLAT INSPECTOR) Glucose, POC 88 70 - 100 MG/DL KU MAIN LAB Specimen Performing Organization Address [facility] Ph one Number MAIN LAB [address] [place] [address] * POC GLUCOSE (05/27/2019 1:59 PM FILM FLAT INSPECTOR) Glucose, POC 98 70 - 100 MG/DL KU MAIN LAB Specimen Performing Organization Address [facility] Ph one Number MAIN LAB [address] [place] [address] * POC GLUCOSE (05/27/2019 12:59 PM FILM FLAT INSPECTOR) Glucose, POC 135 (H) 70 - 100 MG/DL KU MAIN LAB Specimen Performing Organization Address [facility] Ph one Number MAIN LAB [address] [place] [address] * POC POTASSIUM (05/27/2019 11:46 AM FILM FLAT INSPECTOR) Potassium-POC 3.3 (L) 3.5 - 5.1 MMOL/L MAIN LAB Specimen Performing Organization Address [facility] one Number MAIN LAB [address] [place] [address] * CHEST 2 VIEWS (05/27/2019 11:40 AM FILM FLAT INSPECTOR) Specimen Impressions Performed At Generalized cardiomegaly and [...] Interface, Radiant Results - 05/28/2019 7:15 AM FILM FLAT INSPECTOR CHEST 2 VIEWS History: SOB. Shortness of [...] on 05/28/2019 7:06 AM. Performing Organization Address [facility] one Number RAD RESULTS * TYPE & CROSSMATCH (05/27/2019 11:06 AM FILM FLAT INSPECTOR) Units Ordered 0 MAIN LAB Crossmatch 05/30/2019 MAIN LAB Expires Record Check FOUND MAIN LAB ABO/RH(D) A POS MAIN LAB Antibody Screen NEG MAIN LAB Electronic YES MAIN LAB Crossmatch Specimen Performing Organization Address [facility] one Number MAIN LAB [address] [place] [address] * CMV AB IGG (05/27/2019 11:06 AM FILM FLAT INSPECTOR) CMV, IgG NEG MAIN LAB Specimen Blood Performing Organization Address [facility] one Number MAIN LAB [address] [place] [address] * CMV AB IGM (05/27/2019 11:06 AM FILM FLAT INSPECTOR) CMV, IgM NEG NEG-NEG MAIN LAB Specimen Blood Performing Organization Address [facility] one Number MAIN LAB [address] [place] [address] * DONNA ARCE PANEL(EBV) (05/27/2019 11:06 AM FILM FLAT INSPECTOR) EBV Capsid IgG POS MAIN LAB EBV Nuclear POS MAIN LAB Ag,Ab EBV Early Ag,Ab POS MAIN LAB EBV Capsid IgM NEG NEG-NEG MAIN LAB Specimen Blood Performing Organization Address [facility] one Number [facility] MAIN LAB [address] [place] [address] * PARATHYROID HORMONE (05/27/2019 11:06 AM FILM FLAT INSPECTOR) PTH Hormone 218.3 (H) 10 - 65 PG/ML [facility] MAIN LAB Specimen Blood Performing Organization Address [facility] one Number [facility] MAIN LAB [address] [place] [address] * HEMOGLOBIN A1C (05/27/2019 11:06 AM FILM FLAT INSPECTOR) Hemoglobin A1C 7.9 (H) 4.0 - 6.0 % [facility] MAIN LAB Comment: The ADA recommends that most patients with type 1 and type 2 diabetes maintain an A1c level <7%. Specimen Blood Performing Organization Address [facility] one Number [facility] MAIN LAB [address] [place] [address] * LIPID PROFILE (05/27/2019 11:06 AM FILM FLAT INSPECTOR) Cholesterol 142 <200 MG/DL [facility] MAIN LAB [...] 130 mg/dL. Specimen Blood Performing Organization Address [facility] one Number [facility] MAIN LAB [address] [place] [address] * COMPREHENSIVE METABOLIC PANEL (05/27/2019 11:06 AM FILM FLAT INSPECTOR) Sodium 135 (L) 137 - 147 MMOL/L [...] Total Protein 7.7 6.0 - 8.0 G/DL MAIN LAB Total Bilirubin 0.5 0.3 - 1.2 MG/DL MAIN LAB Albumin 4.6 3.5 - 5.0 G/DL MAIN LAB Alk Phosphatase 90 25 - 110 U/L MAIN LAB AST (SGOT) 21 7 - 40 U/L MAIN LAB CO2 29 21 - 30 MMOL/L MAIN LAB ALT (SGPT) 19 7 - 56 U/L MAIN LAB Anion Gap 14 (H) 3 - 12 MAIN LAB eGFR Non 7 (L) >60 mL/min MAIN LAB Comment: [place] The eGFR is not validated f or use in drug dosing adjustments. Continue to use estimated creatinine clearance per dosing reference text. Please contact the Clinical Pharmacist for questions. eGFR 8 (L) >60 mL/min MAIN LAB Mexican Comment: The eGFR is not validated for use in drug dosing adjustments. Continue to use estimated creatinine clearance per dosing reference text. Please contact the Clinical Pharmacist for questions. Specimen Blood Performing Organization Address [facility] Ph one Number [facility] LAB [address] [place] [address] * PTT (APTT) (05/27/2019 11:06 AM FILM FLAT INSPECTOR) APTT 31.5 24.0 - 36.5 SEC [facility] LAB Specimen Blood Performing Organization Address [facility] one Number [facility] LAB [address] [place] [phone] * PROTIME INR (PT) (05/27/2019 11:06 AM FILM FLAT INSPECTOR) INR 1.0 0.8 - 1.2 [facility] LAB Specimen Blood Performing Organization Address [facility] one Number [facility] LAB [address] [place] [phone] * CBC AND DIFF (05/27/2019 11:06 AM FILM FLAT INSPECTOR) White Blood 6.6 4.5 - 11.0 K/UL [facility] LAB Cells RBC 4.27 (L) 4.4 - 5.5 M/UL [facility] LAB Hemoglobin 13.6 13.5 - 16.5 GM/DL MAIN LAB Hematocrit 40.1 40 - 50 % MAIN LAB MCV 93.8 80 - 100 FL [facility] LAB MCH 31.8 26 - 34 PG [...] Basophil Count Specimen Blood Performing Organization Address [facility] Number MAIN LAB [address] [place] [address] * POC GLUCOSE (05/27/2019 10:51 AM FILM FLAT INSPECTOR) Glucose, POC 77 70 - 100 MG/DL MAIN LAB Specimen Performing Organization Address [facility] Ph one Number MAIN LAB [address] [place] [address] * TELEMETRY STRIPS-SCAN (05/27/2019 12:00 AM FILM FLAT INSPECTOR) Narrative Performed At This result has an attachment that is n ot available. Ordered by an unspecified provider. documented in this encounter Visit Diagnoses Not on filedocumented in this encounter Administered Medications Action Date Dose Rate Site Medication Order MAR Action 06/01/2019 11:51 AM FILM FLAT INSPECTOR 650 mg acetaminophen (TYLENOL) tablet 650 mg Given 650 mg, Oral, EVERY 4 HOURS PRN, Starting Tue05/29/19 at 0758, Until Tue06/01/19 at 1635, Pain non-opioid: may b e used alone or in combination with opioi d analgesia, TOTAL ACETAMINOPHEN DOSE NOT TO EXCEED 4GM DAILY, 650 mg Given 06/01/2019 4:17 AM FILM FLAT INSPECTOR 650 mg Given 05/31/2019 2:56 PM FILM FLAT INSPECTOR 05/31/2019 9:14 PM FILM FLAT INSPECTOR 10 mg bisacodyL (DULCOLAX) rectal suppository Given 10 mg 10 mg, Rectal, DAILY PRN, Starting Tue05/29/19 at 0756, Until Tue06/01/19 at 1635, Constipation [place], Hold for loose stools, 06/01/2019 4:12 AM FILM FLAT INSPECTOR 500 mg cephalexin (KEFLEX) capsule 500 mg Given 500 mg, Oral, EVERY 12 HOURS, First dos e on Tue05/29/19 at 1630, Until Discontinued 500 mg Given 05/31/2019 4:29 PM FILM FLAT INSPECTOR 500 mg Given 05/31/2019 4:42 AM FILM FLAT INSPECTOR 06/01/2019 8:09 AM FILM FLAT INSPECTOR 50,000 Units ergocalciferol (VITAMIN D-2) capsule Given 50,000 Units 50,000 Units, Oral, EVERY 7 DAYS, Firs t dose on Tue06/01/19 at 0900, Until Discontinued fentaNYL citrate PF (SUBLIMAZE) injection 25-50 mcg 25-50 mcg, Intravenous, EVERY 6 HOURS PRN, Starting Tue05/29/19 at 0758, Unti l Tue06/01/19 at 1635, breakthrough 06/01/2019 8:08 AM FILM FLAT INSPECTOR 40 mg fluoxetine (PROZAC) capsule 40 mg Given 40 mg, Oral, DAILY, First dose on Tue05/28/19 at 0900, Until Discontinued 40 mg Given 05/31/2019 8:39 AM FILM FLAT INSPECTOR 40 mg Given 05/30/2019 9:18 AM FILM FLAT INSPECTOR 05/27/2019 12:40 PM FILM FLAT INSPECTOR 250 mL Abdomina l Tissue heparin (porcine) 2,500 Units in sodium Given chloride 0.9% (NS) 250 mL irrigation 250 mL, INTRA-PROCEDURE MED(CONT), Starting 05/27/19 at 1240, Until 05/27/19 at 1451, Intra-op 05/30/2019 9:11 PM FILM FLAT INSPECTOR 0.125 mg hyoscyamine (ANASPAZ) rapid dissolve Given tablet 0.125 mg 0.125 mg, Sublingual, EVERY 4 HOURS PRN, Starting Tue05/29/19 at 1218, Unti l Tue06/01/19 at 1635, Bladder Spasms 0.125 mg Given 05/30/2019 3:26 PM FILM FLAT INSPECTOR 0.125 mg Given 05/30/2019 6:16 AM FILM FLAT INSPECTOR 06/01/2019 12:32 PM FILM FLAT INSPECTOR 5.4 Units insulin pump -ASPART- Patients Own [...] insulin administered and grams of carbs consumed., 06/01/2019 8:09 AM FILM FLAT INSPECTOR 1 patch Abdomina l Tissue lidocaine (LIDODERM) [...] Abdominal Tissue Patch/Topical Applied 05/31/2019 8:40 AM FILM FLAT INSPECTOR 1 patch Abdomen:RLQ Patch/Topical Applied 05/30/2019 9:19 AM FILM FLAT INSPECTOR 06/01/2019 8:09 AM FILM FLAT INSPECTOR 12.5 mg metoprolol tartrate (LOPRESSOR) tablet Given 12.5 mg 12.5 mg, Oral, TWICE DAILY, First dose on Tue06/01/19 at 0745, Until Discontinued, Hold for heart rate < 60 bpm, SBP, 120, 06/01/2019 8:08 AM FILM FLAT INSPECTOR [address] (MYFORTIC) tablet 720 Given mg 720 mg, Oral, TWICE DAILY, First dose o n Tue05/27/19 at 1630, Until Discontinued , NURSING: Please educate patient and document: Give with food. Do not administer within 2 hours of antacids, magnesium, calcium, iron, or zinc. NOTE : If or wanting to become , do not touch broken tablets without gloves due to risk of defects., 720 mg Given 05/31/2019 9:09 PM FILM FLAT INSPECTOR 720 mg Given 05/31/2019 8:39 AM FILM FLAT INSPECTOR 06/01/2019 12:06 PM FILM FLAT INSPECTOR 500,000 Units nystatin (MYCOSTATIN) oral suspension Given 500,000 Units 500,000 Units, Swish & Swallow, FOUR TIMES DAILY, First dose on Tue05/27/19 at 1700, Until Discontinued 500,000 Units Given 06/01/2019 8:08 AM FILM FLAT INSPECTOR 500,000 Units Given 05/31/2019 9:09 PM FILM FLAT INSPECTOR ondansetron (ZOFRAN) injection 4 mg 4 mg, Intravenous, EVERY 6 HOURS PRN, Starting Tue05/27/19 at 1510, Until Tue06/01/19 at 1635, Nausea/Vomiting Injectable 05/27/2019 1:50 PM FILM FLAT INSPECTOR 150 mL Abdomina l Tissue ortho irrigation 1 L bag Given 1,000 mL, INTRA-PROCEDURE MED, Starting Tue05/27/19 at 1350, Until Tue05/27/19 at 1451, Intra-op 05/31/2019 9:09 PM FILM FLAT INSPECTOR [address] (PROTONIX) tablet 40 mg Given 40 mg, Oral, DAILY, First dose on Tue05/28/19 at 2100, Until Discontinued, Do not crush or chew tablet., 40 mg Given 05/30/2019 9:11 PM FILM FLAT INSPECTOR 40 mg Given 05/29/2019 10:01 PM FILM FLAT INSPECTOR 06/01/2019 8:09 AM FILM FLAT INSPECTOR 17 g polyethylene glycol 3350 (MIRALAX) Given packet 17 g 17 g (1 packet), Oral, DAILY, First dos e on Tue05/29/19 at 0900, Until Discontinued, 8.5 GRAMS = 0.5 PACKET 17 GRAMS = 1 PACKET 34 GRAMS = 2 PACKETS, 17 g Given 05/31/2019 8:38 AM FILM FLAT INSPECTOR 17 g Given 05/30/2019 9:19 AM FILM FLAT INSPECTOR prednisone (DELTASONE) tablet 10 mg 10 mg, Oral, DAILY, 1 dose, First dose (after last reorder) on Tue06/03/19 at 0900, POD # 7. Give with Food., Dispens e dose in 5 mg tablets., prednisone (DELTASONE) tablet 15 mg 15 mg, Oral, DAILY, 1 dose, First dose (after last reorder) on Tue06/02/19 at 0900, POD # 6. Give with Food., Dispens e dose in 5 mg tablets., prednisone (DELTASONE) tablet 5 mg 5 mg, Oral, DAILY, 1 dose, First dose (after last reorder) on Tue06/04/19 at 0900, POD # 8 and continue daily. Give with Food., Dispense dose in 5 mg tablets., 06/01/2019 8:09 AM FILM FLAT INSPECTOR 75 mg pregabalin (LYRICA) capsule 75 mg Given 75 mg, Oral, THREE TIMES DAILY, First dose on Tue05/28/19 at 0900, Until Discontinued 75 mg Given 05/31/2019 9:09 PM FILM FLAT INSPECTOR 75 mg Given 05/31/2019 2:19 PM FILM FLAT INSPECTOR 06/01/2019 8:09 AM FILM FLAT INSPECTOR 2 tablets senna/docusate (SENOKOT-S) tablet 2 Given tablet 2 tablet, Oral, TWICE DAILY, First dose on Tue05/29/19 at 0900, Until Discontinued, Hold for loose stools, 2 tablets Given 05/31/2019 9:09 PM FILM FLAT INSPECTOR 2 tablets Given 05/31/2019 8:39 AM FILM FLAT INSPECTOR 06/01/2019 5:26 AM FILM FLAT INSPECTOR 5 mg tacrolimus (PROGRAF) capsule 5 mg [...] , 5 mg Given 05/31/2019 6:24 PM FILM FLAT INSPECTOR 5 mg Given 05/31/2019 6:18 AM FILM FLAT INSPECTOR 06/01/2019 8:09 AM FILM FLAT INSPECTOR 0.4 mg tamsulosin (FLOMAX) capsule 0.4 mg Given 0.4 mg, Oral, DAILY, First dose on Tue05/28/19 at 0900, Until Discontinued, NURSING: Please educate patient and document: Give 1/2 hour following same meal everyday. Do not crush, chew or open the capsule. , 0.4 mg Given 05/31/2019 8:39 AM FILM FLAT INSPECTOR 0.4 mg Given 05/30/2019 9:18 AM FILM FLAT INSPECTOR 06/01/2019 12:06 PM FILM FLAT INSPECTOR 50 mg traMADol (ULTRAM) tablet 50-100 mg Given 50-100 mg, Oral, EVERY 6 HOURS PRN, Starting Olga 05/31/19 at 1838, Until Tue06/01/19 at 1635, Pain PO 50 mg Given 06/01/2019 11:51 AM FILM FLAT INSPECTOR 50 mg Given 06/01/2019 4:14 AM FILM FLAT INSPECTOR 05/31/2019 9:09 PM FILM FLAT INSPECTOR 100 mg traZODone (DESYREL) tablet 100 mg Given 100 mg, Oral, AT BEDTIME DAILY, First dose on Tue05/28/19 at 2100, Until Discontinued 100 mg Given 05/30/2019 9:11 PM FILM FLAT INSPECTOR 100 mg Given 05/29/2019 10:00 PM FILM FLAT INSPECTOR 06/01/2019 8:14 AM FILM FLAT INSPECTOR Abdomina l Tissue Verification of Patch Placement and Patch/Topica Integrity - Lidocaine 5% l Verified TWICE DAILY, First dose on Tue05/29/19 at 0900, Until Discontinued, Patch checks are required every shift to ensure the patch is still intact and in place. Please verify patch check findings using this MAR entry., Other Patch/Topical Verified 05/31/2019 9:10 PM FILM FLAT INSPECTOR Abdominal Tissue Patch/Topical Verified 05/31/2019 8:40 AM FILM FLAT INSPECTOR documented in this encounter
--- OUTSIDE RECORDS SUMMARY | 2019-09-28 08:54 | XMS REPORT | Encounter Summary ---
Author Author [facility] Organization [facility] Address Unknown Phone Unavailable Care Team Providers Care Electric Meter Tester Helper Name Role Phone Dania Barksdale MD PCP Jose Huff DO Unavailable Encounter Details Care Team Description Date Type Department Berta Harrison MD [address] [place] [address] [phone] Velia Moore APRN [address] [facility] [id number] [place] [address] [phone] 04/19/2019 [facility] Social History Date Tobacco Use [...] Date End Date Medication Sig Dispensed Refills fluoxetine (PROZAC) 40 mg Take 40 mg by 0 capsule mouth daily. insulin pump -ASPART- by SubQ Pump 0 Patients Own route Three times daily with meals and as needed. omeprazole DR(+) Take 40 mg by 0 [...] of Breath. Shake well before use. 06/01/2019 bumetanide (BUMEX) 2 mg Take 2 mg by 0 tablet mouth twice daily. 06/01/2019 calcitriol (ROCALTROL) Take 0.5 mcg 0 0.5 mcg capsule by mouth every 48 hours. 06/01/2019 calcium acetate (PHOSLO) Take 4 0 667 mg capsule capsules with meals and 2 with snacks 06/01/2019 docusate (COLACE) 100 mg Take 100 mg 0 capsule by mouth twice daily as needed. documented as of this encounter Plan of Treatment Care Team Description Date Type Specialty Berta Harrison MD [address] [place] [address] [phone] Doroteo Enamorado MD [address] [place], [place] [id number] 10/02/2019 Hospital Radiology Encounter Date/Time Name Type Priority Associated Diag noses 04/19/2019 2:43 PM STOCK CONTROLLER LAVENDER (EDTA) TOP TUBE Lab Routine Pre-t ransplant evaluation FOR MTN TRANSPLANT for end stage renal disease ESRD (end stage renal disease) ([facility]) 04/19/2019 2:43 PM STOCK CONTROLLER RED TOP TUBE FOR MTN Lab Routine Pre-trans plant evaluation TRANSPLANT for end stage renal disease ESRD (end stage renal disease) ([facility]) documented as of this encounter Goals Goal Patient Associated Recent Progress Patient-Stat Aut hor Goal Type Problems ed? Recover from illness [facility] Rajani Ac RN documented as of this encounter Procedures Comments Procedure Name Priority Date/Time Associated Diag nosis HC DRUG SCREEN, QUAL Routine 04/19/2019 2:44 PM STOCK CONTROLLER HC HIV 1/2 LOVE AG SCREEN Routine 04/19/2019 Pre-t ransplant evaluation 2:43 PM STOCK CONTROLLER for end stage renal disease ESRD (end stage renal disease) (HCC) Encounter for screening for HIV HC SYPHILIS AB SCREEN Routine 04/19/2019 Pre-nunez splant evaluation (SYPT) 2:43 PM STOCK CONTROLLER for end stage renal disease ESRD (end stage renal disease) (HCC) HC TOXOPLASMA IGM Routine 04/19/2019 Pre-transpla nt evaluation 2:43 PM STOCK CONTROLLER for end stage renal disease ESRD (end stage renal disease) (HCC) HC TOXOPLASMA IGG Routine 04/19/2019 Pre-transpla nt evaluation 2:43 PM STOCK CONTROLLER for end stage renal disease ESRD (end stage renal disease) (HCC) HC PTH Routine 04/19/2019 Pre-transplant evaluation 2:43 PM STOCK CONTROLLER for end stage renal disease ESRD (end stage renal disease) (HCC) HC HSV I AB IGG Routine 04/19/2019 Pre-transplant evaluation IMMUNOBLOT(HSVG) 2:43 PM STOCK CONTROLLER for end stage renal disease ESRD (end stage renal disease) (HCC) HC HEPATITIS C LOVE Routine 04/19/2019 Pre-transpl ant evaluation 2:43 PM STOCK CONTROLLER for end stage renal disease ESRD (end stage renal disease) (HCC) HC HEPATITIS B CORE Routine 04/19/2019 Pre-transp lant evaluation ANTIBODY 2:43 PM STOCK CONTROLLER for end stage renal disease ESRD (end stage renal disease) (HCC) HC HEPATITIS B-S ANTIGEN Routine 04/19/2019 Pre-t ransplant evaluation 2:43 PM STOCK CONTROLLER for end stage renal disease ESRD (end stage renal disease) (HCC) HC HEPATITIS B-S ANTIBODY Routine 04/19/2019 Pre- transplant evaluation 2:43 PM STOCK CONTROLLER for end stage renal disease ESRD (end stage renal disease) (HCC) HC GGTP Routine 04/19/2019 Pre-transplant evaluation 2:43 PM STOCK CONTROLLER for end stage renal disease ESRD (end stage renal disease) (HCC) HC CMV TITER IGM Routine 04/19/2019 Pre-transplan t evaluation 2:43 PM STOCK CONTROLLER for end stage renal disease ESRD (end stage renal disease) (HCC) HC CMV IGG Routine 04/19/2019 Pre-transplant evaluation 2:43 PM STOCK CONTROLLER for end stage renal disease ESRD (end stage renal disease) (HCC) HC PT(INR) Routine 04/19/2019 Pre-transplant evaluation 2:43 PM STOCK CONTROLLER for end stage renal disease ESRD (end stage renal disease) (HCC) HC CBC W/ AUTOMATED DIFF Routine 04/19/2019 Pre-t ransplant evaluation 2:43 PM STOCK CONTROLLER for end stage renal disease ESRD (end stage renal disease) (HCC) HC VARICELLA ZOSTER Routine 04/19/2019 Pre-transp lant evaluation IGG(VZG, IGG 2:43 PM STOCK CONTROLLER for end stage renal disease ESRD (end stage renal disease) (HCC) HC PHOSPHOROUS, SERUM Routine 04/19/2019 Pre-nunez splant evaluation 2:43 PM STOCK CONTROLLER for end stage renal disease ESRD (end stage renal disease) (HCC) HC HEMOGLOBIN A1C Routine 04/19/2019 Other specif ied diabetes 2:43 PM STOCK CONTROLLER mellitus with other diabetic kidney complication (HCC) Pre-transplant evaluation for end stage renal disease ESRD (end stage renal disease) (HCC) HC HEPATIC FUNCTION PANEL Routine 04/19/2019 Pre- transplant evaluation 2:43 PM STOCK CONTROLLER for end stage renal disease ESRD (end stage renal disease) (HCC) documented in this encounter Results * TOXICOLOGY,SERUM (04/19/2019 2:44 PM STOCK CONTROLLER) Toxicology Drug See Note REFERENCE LAB Screen Comments INTERPRETIVE INFORMATION: D rug Serum Screen 9 Panel, Serum or Plasma - Immunoassay Screen with Reflex to Mass Spectrometry Confirmation/Quantitation 1. Methodology: Qualitative Immunoassay Screen 2. Drugs/Drug classes reported as "Positive" are automatically reflexed to mass spectrometry confirmation/quantitation testing. An immunoassay unconfirmed positive screen result may be useful for medical purposes but does not meet forensic standards. 3. The absence of expected drug(s) and/or drug metabolite(s) may indicate non-compliance, inappropriate timing of specimen collection relative to drug administration, poor drug absorption, or limitations of testing. The concentration at which the screening test can detect a drug or metabolite varies within a drug class. Specimens for which drugs or drug classes are detected by the screen are automatically reflexed to a second, more specific technology (mass spectrometry). The concentration value must be greater than or equal to the cutoff to be reported as positive. Interpretive questions should be directed to the laboratory. 4. For medical purposes only; not valid for forensic use. Test developed and characteristics determined by [employer]. See Compliance Statement B: [employer] Performed by [employer], [address] [place] [id number] [email or web address], Jaspreet Herzog MD, Lab. Director Cannabinoids Negative REFERENCE LAB Toxicology Reference range: Cutoff 30 Serum Unit: ng/mL Cocaine Negative REFERENCE LAB Toxicology Reference range: Cutoff 30 Serum Unit: ng/mL Opiates Negative REFERENCE LAB Toxicology Reference range: Cutoff 30 Serum Unit: ng/mL Phencyclidine Negative REFERENCE LAB Toxicology Reference range: Cutoff 15 Serum Unit: ng/mL Amphetamines Negative REFERENCE LAB Toxicology Reference range: Cutoff 30 Serum Unit: ng/mL Barbiturates Negative REFERENCE LAB Toxicology Reference range: Cutoff 75 Serum Unit: ng/mL Benzodiazepines Negative REFERENCE LAB Toxicology Reference range: Cutoff 75 Serum Unit: ng/mL Methadone Negative REFERENCE LAB Toxicology Reference range: Cutoff 40 Serum Unit: ng/mL Buprenorphine Negative REFERENCE LAB Reference range: Cutoff 1 Unit: ng/mL Oxycodone Negative REFERENCE LAB Toxicology Reference range: Cutoff 30 SERUM Unit: ng/mL Methamphetamine Negative REFERENCE LAB Toxicology Reference range: Cutoff 30 Serum Unit: ng/mL Specimen Performing Organization Address City/State[facility] Ph one Number REFERENCE LAB REFERENCE LAB See results for address. * LIVER FUNCTION PANEL (04/19/2019 2:43 PM STOCK CONTROLLER) Total Bilirubin 0.4 0.3 - 1.2 MG/DL [facility] MAIN LAB Bilirubin, 0.1 <0.4 MG/DL [facility] MA[facility] Direct Albumin 4.6 3.5 - 5.0 G/DL [facility] MA[facility] Alk Phosphatase 84 25 - 110 U/L [facility] MA[facility] AST (SGOT) 18 7 - 40 U/L [facility] ALT (SGPT) 16 7 - 56 U/L [facility] Total Protein 7.7 6.0 - 8.0 G/DL [facility] MAIN [facility] Specimen Blood Performing Organization Address [facility] Ph one Number [facility] MAIN [facility] [address] [place] [address] * VARICELLA ZOSTER AB IGG (04/19/2019 2:43 PM STOCK CONTROLLER) [facility] Varcella Zoster POS MAIN LAB IgG Specimen Blood Performing Organization Address [facility] Ph one Number MAIN LAB [address] [place] [address] * CBC AND DIFF (04/19/2019 2:43 PM STOCK CONTROLLER) [facility] White Blood 6.8 4.5 - 11.0 K/UL MAIN LAB Cells RBC 4.13 (L) 4.4 - 5.5 M/UL [facility] MAIN LAB Hemoglobin 13.1 (L) 13.5 - 16.5 GM/DL [facility] MAIN LAB Hematocrit 39.3 (L) 40 - 50 % [facility] MA[facility] MCV 95.2 80 - 100 FL [facility] MAIN LAB MCH 31.8 26 - 34 PG MAIN LAB MCHC 33.4 32.0 - 36.0 G/DL MAIN LAB RDW 15.1 (H) 11 - 15 % [facility] MAIN [facility] Platelet Count 175 150 - 400 K/UL [facility] MAIN [facility] MPV 9.4 7 - 11 FL [facility] MAIN [facility] Neutrophils 77 41 - 77 % [facility] Lymphocytes 11 (L) 24 - 44 % [facility] Monocytes 10 4 - 12 % [facility] Eosinophils 1 0 - 5 % [facility] MA[facility] Basophils 1 0 - 2 % [facility] MAIN [facility] Absolute 5.20 1.8 - 7.0 K/UL [facility] MAIN LAB Neutrophil Count Absolute Lymph 0.70 (L) 1.0 - 4.8 K/UL [facility] MAIN LAB Count Absolute 0.70 0 - 0.80 K/UL [facility] MAIN LAB Monocyte Count Absolute 0.10 0 - 0.45 K/UL MAIN LAB Eosinophil Count Absolute 0.00 0 - 0.20 K/UL MAIN LAB Basophil Count Specimen Blood Performing Organization Address [facility] one Number MAIN LAB [address] [place] [address] * CMV AB IGG (04/19/2019 2:43 PM STOCK CONTROLLER) CMV, IgG NEG [facility] MAIN LAB Specimen Blood Performing Organization Address [facility] one Number MAIN LAB [address] [place] [address] * CMV AB IGM (04/19/2019 2:43 PM STOCK CONTROLLER) CMV, IgM NEG NEG-NEG MAIN LAB Specimen Blood Performing Organization Address [facility] one Number MAIN LAB [address] [place] [address] * GGTP (04/19/2019 2:43 PM STOCK CONTROLLER) GGTP 17 9 - 64 U/L MAIN LAB Specimen Blood Performing Organization Address [facility] one Number MAIN LAB [address] [place] [address] * HEPATITIS B CORE AB TOT (IGG+IGM) (04/19/2019 2:43 PM STOCK CONTROLLER) Anti HBc Total NEG MAIN LAB Specimen Blood Performing Organization Address [facility] one Number MAIN LAB [address] [place] [address] * HEPATITIS B SURFACE AB (04/19/2019 2:43 PM STOCK CONTROLLER) Anti HBs 28.1 mIU/ml MAIN LAB Comment: Hepatitis B Surface Antibody Reference Ranges >12.0 Positive 8.0-12.0 Equivocal <8.0 Negative Specimen Blood Performing Organization Address [facility] one Number MAIN LAB [address] [place] [address] * HEPATITIS B SURFACE AG (04/19/2019 2:43 PM STOCK CONTROLLER) HBsAg NEG NEG-NEG K[facility] MAIN LAB Specimen Blood Performing Organization Address [facility] one Number MAIN LAB [address] [place] [address] * HEPATITIS C AB (04/19/2019 2:43 PM STOCK CONTROLLER) Anti HCV NEG NEG-NEG MAIN LAB Specimen Blood Performing Organization Address [facility] one Number MAIN LAB [address] [place] [address] * HIV-1/2 ANTIGEN/ANTIBODY SCREEN (04/19/2019 2:43 PM STOCK CONTROLLER) HIV 1 and 2 AG NEG NEG-NEG MAIN LAB AB Screen Specimen Blood Performing Organization Address [facility] one Number MAIN LAB [address] [place] [address] * HERPES SIMPLEX IGG AB (HSV IGG) (04/19/2019 2:43 PM STOCK CONTROLLER) HSV Type 1 IgG POS (A) NEG-NEG MAIN LAB HSV Type 2 IgG NEG NEG-NEG MAIN LAB Specimen Blood Performing Organization Address [facility] one Number MAIN LAB [address] [place] [address] * PHOSPHORUS (04/19/2019 2:43 PM STOCK CONTROLLER) Phosphorus 7.1 (H)Comment: NOTE NEW 2.0 - 4.5 MG/DL [facility] AIN LAB REFERENCE RANGES Specimen Blood Performing Organization Address [facility] one Number MAIN LAB [address] [place] [address] * PROTIME INR (PT) (04/19/2019 2:43 PM STOCK CONTROLLER) INR 0.9 0.8 - 1.2 MAIN LAB Specimen Blood Performing Organization Address [facility] one Number MAIN LAB [address] [place] [address] * SYPHILIS AB SCREEN (04/19/2019 2:43 PM STOCK CONTROLLER) Syphilis AB, NEG NEG-NEG MAIN LAB Total Comment: Negative EIA: Negative results indicate no past or present syphilis infection. Early infection can not be excluded. Specimen Blood Performing Organization Address [facility] one Number CLAUDIA MAIN LAB [address] [place] [address] * TOXOPLASMA IGG (04/19/2019 2:43 PM STOCK CONTROLLER) Toxoplasma IgG NEG [facility] MAIN LAB Specimen Blood Performing Organization Address City/[facility] Ph one Number MAIN LAB [address] [place] [address] * TOXOPLASMA IGM (04/19/2019 2:43 PM STOCK CONTROLLER) Toxoplasma IgM NEG MAIN LAB Specimen Blood Performing Organization Address City/[facility] Ph one Number MAIN LAB [address] [place] [address] * HEMOGLOBIN A1C (04/19/2019 2:43 PM STOCK CONTROLLER) Hemoglobin A1C 8.4 (H) 4.0 - 6.0 % MAIN LAB Comment: The ADA recommends that most patients with type 1 and type 2 diabetes maintain an A1c level <7%. Specimen Blood Performing Organization Address [facility] Ph one Number MAIN LAB [address] [place] [address] * PARATHYROID HORMONE (04/19/2019 2:43 PM STOCK CONTROLLER) PTH Hormone 367.3 (H) 10 - 65 PG/ML MAIN LAB Specimen Blood Performing Organization Address [facility] one Number MAIN LAB [address] [place] [address] documented in this encounter Visit Diagnoses Diagnosis Pre-transplant evaluation for end stage renal disease Other specified pre-operative examinati on ESRD (end stage renal disease) (HCC) End stage renal disease 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
--- OUTSIDE RECORDS SUMMARY | 2019-09-28 08:54 | XMS REPORT | Encounter Summary ---
Author Author [facility] Organization [facility] Address Unknown Phone Unavailable Care Team Providers Care Public Employment Mediator Name Role Phone Dania Barksdale MD PCP Jose Huff DO Unavailable Reason for Visit * Reason Comments Committee Review Encounter Details Care Team Description Date Type Department Nadine Ahn RN Committee Review 05/10/2019 Telephone The [facility] [address] [address] Social History Date Tobacco Use [...] Date Type Specialty Berta Harrison MD [address] [place] [address] Doroteo Enamorado MD [address] [place] [address] 10/02/2019 Hospital Radiology Encounter documented as of this encounter Goals Goal Patient Associated Recent Progress Patient-Stat Aut hor Goal Type Problems ed? Recover from illness [facility] No Rajani Gallego RN documented as of this encounter Visit Diagnoses Not on filedocumented in this encounter
--- OUTSIDE RECORDS SUMMARY | 2019-09-28 08:54 | XMS REPORT | Encounter Summary ---
Author Author [facility] Organization [facility] Address Unknown Phone Unavailable Care Team Providers Care Library Media Specialist Name Role Phone Dania Barksdale MD PCP Jose Huff DO Unavailable Reason for Visit * Reason Comments Committee Review Encounter Details Care Team Description Date Type Department Nadine Ahn RN Committee Review 04/26/[address] [facility] [address] [address] Social History Date Tobacco Use Types Packs/Day [...] encounter Miscellaneous Notes * Telephone Encounter - Nadine Ahn RN - 04/26/2019 11:36 AM TANK SYSTEMS MAINTAINER Called and spoke with Stef. We discussed the committee decision stating that he was still not eligible for a SPK due to multiple health issues including oxygen use at night. Also the big barrier is still his weight. Patient stated understan tiara. RN discussed that at his current weight he is ok to proceed with a kidney transplant but he needs to continue to work on weight loss. He stated understand ing. I did talk to him about how we will need to update his echocardiogram in [facility] 2019. Lastly I was unsuccessful in obtaining his EGD report. He stated he iniguez d completed it at [facility] and it was back in 2014. RN will re-request lesa figueroa from [facility]. Patient stated understanding. Transplant tab changed to ineligible for kidney pancreas Letter drafted and given to [place] to mail Episode opened for kidney alone Transplant tab changed to deferred for kidney Letter drafted and given to [place] to mail SYSTEMS MAINTAINER documented in this encounter Plan of Treatment Care Team Description Date Type Specialty Berta Harrison MD [address] [place] [address] Doroteo Enamorado MD [address] [place] [address] 10/02/2019 Hospital Radiology Encounter documented as of this encounter Goals Goal Patient Associated Recent Progress Patient-Stat Aut hor Goal Type Problems ed? Recover from illness [facility] Rajani Ac, JAIME documented as of this encounter Visit Diagnoses Not on filedocumented in this encounter
--- OUTSIDE RECORDS SUMMARY | 2019-09-28 08:54 | XMS REPORT | Encounter Summary ---
Author Author [facility] Organization [facility] Address Unknown Phone Unavailable Care Team Providers Care Business Analytics Analyst Name Role Phone Dania Barksdale MD PCP Jose Huff DO Unavailable Reason for Visit * Reason Comments Waitlist Maintenance Encounter Details Care Team Description Date Type Department Nadine Ahn RN Waitlist Maintenance 05/15/2019 Telephone The [facility] [address] [address] Social History Date Tobacco Use Types Packs/Day [...] Telephone Encounter - Nadine Ahn RN - 05/15/2019 2:27 PM GOAT DRIVER Patient called and left a message stating he received a letter stating he needed a monthly lab draw done. RN returned his call and reminded him of his monthly antibody level but his dial [employer] [facility] will take care of that. He reminded me that he is on home hemo. RN i nformed patient I would be sending him kits. Went over the details of how to use them and what he needs to do and when to do them. He stated understanding. RN a dvised when he gets the kits that he needs to do one YAMILA and then he can do the m monthly. He stated understanding. Email sent to get patient kits. DRIVER documented in this encounter Plan of Treatment Care Team Description Date Type Specialty Berta Harrison MD [address] [place] [address] Doroteo Enamorado MD [address] [place] [address] 10/02/2019 Hospital Radiology Encounter documented as of this encounter Goals Goal Patient Associated Recent Progress Patient-Stat Aut hor Goal Type Problems ed? Recover from illness [facility] Rajani Ac RN documented as of this encounter Visit Diagnoses Not on filedocumented in this encounter
--- OUTSIDE RECORDS SUMMARY | 2019-09-28 08:54 | XMS REPORT | Encounter Summary ---
Author Author [facility] Organization [facility] Address Unknown Phone Unavailable Care Team Providers Care Infection Control Coordinator Name Role Phone Dania Barksdale MD PCP Jose Huff DO Unavailable Reason for Visit * Reason Comments Financial/Insurance FINANCIAL TRANSPLANT EVALUA TION Questions Encounter Details Care Team Description Date Type Department Rosetta Wilson Financial/Insurance Questions (FINANCIAL TRANSPLANT EVALUATION) 04/19/2019 Telephone The [address] [address] Social History Date Tobacco Use Types Packs/Day [...] encounter Miscellaneous Notes * Telephone Encounter - Rosetta Wilson - 04/19/2019 1:04 PM PEN AND PENCIL REPAIRER FINANCIAL TRANSPLANT EVALUATION ROSELIA Mathew met with Stef Pace and in the absence of ROSELIA Quinonez for insurance consult. There appear to be no coverage/insurance barriers to transpla nt with Medicare ABD full subsidized, BCBS Supplement F and [employer] with NO Spen d Down plan. Stef expressed no insurance concerns related to cost of post-transp lant care and medications and verbalized understanding of Transplant Finance Ground [employer] rdinator's discussion and documents presented. Advised patient to call ROSELIA Bran if any insurance changes. Provided patient with ROSELIA Quinonez's contact informatio n. Patient verbalized understanding. No Financial Assessment given due to NO fin ancial liabilities. Medical, Transplant and Immunosuppressives are covered 100%. No Authorization required prior to listing. Documents presented: Signed Patient Liability Form, Medication Cost Estimate. Terri Murray 04/19/19 AND PENCIL REPAIRER documented in this encounter Plan of Treatment Care Team Description Date Type Specialty Berta Harrison MD [address] [place] [address] Doroteo Enamorado MD [address] [place] [address] 10/02/2019 Hospital Radiology Encounter documented as of this encounter Goals Goal Patient Associated Recent Progress Patient-Stat Aut hor Goal Type Problems ed? Recover from illness Hospital Rajani Ac, RN documented as of this encounter Visit Diagnoses Not on filedocumented in this encounter
--- OUTSIDE RECORDS SUMMARY | 2019-09-28 08:54 | XMS REPORT | Encounter Summary ---
Author Author [facility] Organization [facility] Address Unknown Phone Unavailable Care Team Providers Care Eligibility Counselor Name Role Phone Dania Barksdale MD PCP Jose Huff DO Unavailable Encounter Details Care Team Description Date Type Department Melecio Nielsen MD [address] [address] [phone] 04/19/2019 Clinical [facility] [address] [id number] Social History Date Tobacco Use Types Packs/Day [...] as of this encounter Progress Notes * Abi Mcdonnell - 04/19/2019 11:20 AM STEAM FITTER SUPERVISOR Attest: Reviewed and agree with international exchange coordinator's evaluation. I see no nutrition al contraindications for transplant. Abi Mcdonnell, MS, RD, MANAGER MSW, LD Office: [phone] Voalte: [phone] [facility] Transplant Nutrition Evaluation Impressions: Pt has reported Hgb A1c of 7.9% and increased abdominal obesity. Ot her than that I see no nutritional contraindications to transplantation at this time. Pt has an appropriate body habitus for RTx. BMI of 35.0 kg/m2. Estimated body mass index is 35.02 kg/m as calculated from the following: Height as of an earlier encounter on 04/19/19: 167.6 cm (66"). Weight as of an earlier encounter on 04/19/19: 98.4 kg (217 lb). Wt Readings from Last 5 Encounters: 04/19/19 98.4 kg (217 lb) 12/17/16 99.6 kg (219 lb 9.6 oz) 12/17/16 99.6 kg (219 lb 9.6 oz) Subjective: Pt reported current weight: 195 lbs (states his wt is higher due to leg braces a nd boots) Usual wt in the past 6 mo: Pt reported wt of 205 in November Pt reported muscle/weight loss: stable Nutrition related compliance: poor 49 yo male with Hx of T1DM, cholecystectomy, and HD since 12/2015. Met with pt an d spouse during transplant evaluation today. Diet Recall: B: Sausage and Egg McM uffin, L: Mac and Cheese with hamburger meat, D: Frozen TV dinner spaghetti, and evening snack of Sonic small ice cream. Pt reports he has around 44 oz of unswe etened tea a day. States he does not like fruits or vegetables. Pt does home hem odialysis 5 days a week. Pt has a insulin pump and his blood glucose ranges from 70-250. States his most recent A1c is 7.9%. Insulin runs at 1 unit every hour a nd then 1 unit for each 15 g of carbohydrate. Pt states his goal is to eat 45-60 g of carbohydrates at each meal and states he doesn't really follow any other d iet. Somewhat watches his sugar and salt intake. States he takes phosphate binde rs (4 with meals and 2 with snacks). States he walks his great nephew 4 blocks t o school and does an exercise bike for 30 min 2-3 times a week. Says his activit y is limited by his leg braces and back pain. Instructed on post-transplant nutrition related expectations. Discussed importan ce of hand hygiene, food safety, grapefruit avoidance. Goals: Follow a Carb Controlled Diet and weight loss MD referral received on 04/19/19 for medical nutrition therapy services. Karmen Faye, Designer Pager: [phone] M FITTER SUPERVISOR * Karmen Faye - 04/19/2019 11:20 AM STEAM FITTER SUPERVISOR SPK Transplant Nutrition Evaluation Impressions: Pt has reported Hgb A1c of 7.9% and increased abdominal obesity. Ot her than that I see no nutritional contraindications to transplantation at this time. Pt has an appropriate body habitus for RTx. BMI of 35.0 kg/m2. Estimated body mass index is 35.02 kg/m as calculated from the following: Height as of an earlier encounter on 04/19/19: 167.6 cm (66"). Weight as of an earlier encounter on 04/19/19: 98.4 kg (217 lb). Wt Readings from Last 5 Encounters: 04/19/19 98.4 kg (217 lb) 12/17/16 99.6 kg (219 lb 9.6 oz) 12/17/16 99.6 kg (219 lb 9.6 oz) Subjective: Pt reported current weight: 195 lbs (states his wt is higher due to leg braces a nd boots) Usual wt in the past 6 mo: Pt reported wt of 205 in November Pt reported muscle/weight loss: stable Nutrition related compliance: poor 49 yo male with Hx of T1DM, cholecystectomy, and HD since 12/2015. Met with pt an d spouse during transplant evaluation today. Diet Recall: B: Sausage and Egg McM uffin, L: Mac and Cheese with hamburger meat, D: Frozen TV dinner spaghetti, and evening snack of Sonic small ice cream. Pt reports he has around 44 oz of unswe etened tea a day. States he does not like fruits or vegetables. Pt does home hem odialysis 5 days a week. Pt has a insulin pump and his blood glucose ranges from 70-250. States his most recent A1c is 7.9%. Insulin runs at 1 unit every hour a nd then 1 unit for each 15 g of carbohydrate. Pt states his goal is to eat 45-60 g of carbohydrates at each meal and states he doesn't really follow any other d iet. Somewhat watches his sugar and salt intake. States he takes phosphate binde rs (4 with meals and 2 with snacks). States he walks his great nephew 4 blocks t o school and does an exercise bike for 30 min 2-3 times a week. Says his activit y is limited by his leg braces and back pain. Instructed on post-transplant nutrition related expectations. Discussed importan ce of hand hygiene, food safety, grapefruit avoidance. Goals: Follow a Carb Controlled Diet and weight loss MD referral received on 04/19/19 for medical nutrition therapy services. Karmen Faye, Designer Pager: [phone] M FITTER SUPERVISOR documented in this encounter Plan of Treatment Care Team Description Date Type Specialty Berta Harrison MD 4000 [place] [address] Doroteo Enamorado MD 4000 [place], [place] [id number] 10/02/2019 Hospital Radiology Encounter documented as of this encounter Goals Goal Patient Associated Recent Progress Patient-Stat Aut hor Goal Type Problems ed? Recover from illness [facility] Rajani Ac RN documented as of this encounter Visit Diagnoses Not on filedocumented in this encounter
--- OUTSIDE RECORDS SUMMARY | 2019-09-28 08:54 | XMS REPORT | Encounter Summary ---
Author Author [facility] Organization [facility] Address Unknown Phone Unavailable Care Team Providers Care Property Portfolio Officer Name Role Phone Dania Barksdale MD PCP Jose Huff DO Unavailable Reason for Visit * Reason Comments Kidney Evaluation Encounter Details Care Team Description Date Type Department Melecio Nielsen MD [address] [address] Pre-transplant evaluation for kidney tra nsplant (Primary Dx); Controlled type 2 diabetes mellitus with diabetic nephropathy, unspecified whether fci insulin use (HCC); Hypertensive renal disease; PVD (peripheral vascular disease) ([facility]) 04/19/2019 Transplant [facility] [address] [address] Social History Date Tobacco Use [...] as of this encounter Progress Notes * Melecio Nielsen MD - 04/19/2019 12:20 PM COIN BOX INSPECTOR Date of Service: 04/19/2019 Subjective: Stef Pace is a 49 y.o. male. History of Present Illness Hx of DM, HTN developed ESRD on Dialysis, he is here for donor kidney tr anslantation Review of Systems Constitutional: Positive for fatigue. Eyes: Negative. Respiratory: Negative. Cardiovascular: Negative. Gastrointestinal: Negative. Skin: Negative. Neurological: Negative. Hematological: Negative. Psychiatric/Behavioral: Negative. Past medical History GREGORY, Arthritis Diabetes retinopathy, neuropathy Hypertension Bilateral foot drop History of ulcers, ports endoscopy done at [facility] in [place] in 2014, Depression GERD Esophageal dilatation Past surgical history 3 surgeries for left big toe osteomyelitis, amputation performed in December 2017 Gallbladder surgery Multiple eye surgeries Underwent feeding ostomy, tracheostomy and a long hospitalization in 2014. Hernia surgery Right knee surgery Tonsillectomy Coronary catheterization, angiography Shoulder surgery Social history Tobacco: Yes 2 packs/day for 20 years, quit 13.5 years ago. History of Etoh Yes quit 2014 history of drug abuse: Yes, smoked weed, quit 3 months ago, used meth in the [place], quit when he was diagnosed of diabetes Recently not working, disabled Lives with who will be the primary wound care specialist post transplant No past medical history on file. No [...] file Social History Narrative Not on file Objective: Allergies as of 04/19/2019 - Reviewed 04/19/2019 Allergen Reaction Noted Penicillins ANAPHYLAXIS 12/17/2016 Codeine VOMITING 12/17/2016 albuterol sulfate (PROAIR HFA) 90 mcg/actuation aerosol [...] 100 mg by mouth at bedtime daily. There were no vitals filed for this visit. There is no height or weight on file to calculate BMI. Physical Exam Vitals signs reviewed. Constitutional: General: He is not in acute distress. Appearance: Normal appearance. He is obese. HENT: Head: Normocephalic. Right Ear: Tympanic membrane and ear canal normal. Left Ear: Tympanic membrane and ear canal normal. Nose: Nose normal. Mouth/Throat: Mouth: Mucous membranes are dry. Pharynx: Oropharynx is clear. Eyes: Extraocular Movements: Extraocular movements intact. Conjunctiva/sclera: Conjunctivae normal. Pupils: Pupils are equal, round, and reactive to light. Neck: Musculoskeletal: Normal range of motion and neck supple. No neck rigidity. Cardiovascular: Rate and Rhythm: Normal rate and regular rhythm. Heart sounds: No murmur. No friction rub. No gallop. Pulmonary: Effort: Pulmonary effort is normal. Breath sounds: Normal breath sounds. Abdominal: General: Abdomen is flat. Bowel sounds are normal. Palpations: Abdomen is soft. Musculoskeletal: Normal range of motion. Neurological: General: No focal deficit present. Mental Status: He is alert and oriented to person, place, and time. Psychiatric: Mood and Affect: Mood normal. Thought Content: Thought content normal. Judgment: Judgment normal. Hospital Outpatient Visit on 12/17/2016 Component Date Value Ref Range Status Amphetamines 12/17/2016 NEG NEG-NEG Final Comment: RESULTS WERE OBTAINED BY IMMUNOASSAY AND ARE PRESUMPTIVE ONLY. POSITIV E INDICATES THE PRESENCE OF SUBSTANCE WITH CHARACTERISTICS SIMILAR TO DRUG-DRUG CLASS OR METABOLITE IN CONC. EQUAL TO OR EXCEEDING VALUES LISTED. AMPHETAMINES 1000 NG/ML Barbiturates,Urine 12/17/2016 NEG NEG-NEG Final Comment: RESULTS WERE OBTAINED BY IMMUNOASSAY AND ARE PRESUMPTIVE ONLY. POSITIV E INDICATES THE PRESENCE OF SUBSTANCE WITH CHARACTERISTICS SIMILAR TO DRUG-DRUG CLASS OR METABOLITE IN CONC. EQUAL TO OR EXCEEDING VALUES LISTED. BARBITURATES 200 NG/ML Benzodiazepines 12/17/2016 NEG NEG-NEG Final Comment: RESULTS WERE OBTAINED BY IMMUNOASSAY AND ARE PRESUMPTIVE ONLY. POSITIV E INDICATES THE PRESENCE OF SUBSTANCE WITH CHARACTERISTICS SIMILAR TO DRUG-DRUG CLASS OR METABOLITE IN CONC. EQUAL TO OR EXCEEDING VALUES LISTED. BENZODIAZEPINES 200 NG/ML Cocaine-Urine 12/17/2016 NEG NEG-NEG Final Comment: RESULTS WERE OBTAINED BY IMMUNOASSAY AND ARE PRESUMPTIVE ONLY. POSITIV E INDICATES THE PRESENCE OF SUBSTANCE WITH CHARACTERISTICS SIMILAR TO DRUG-DRUG CLASS OR METABOLITE IN CONC. EQUAL TO OR EXCEEDING VALUES LISTED. COCAINE 300 NG/ML Opiates-Urine 12/17/2016 NEG NEG-NEG Final Comment: RESULTS WERE OBTAINED BY IMMUNOASSAY AND ARE PRESUMPTIVE ONLY. POSITIV E INDICATES THE PRESENCE OF SUBSTANCE WITH CHARACTERISTICS SIMILAR TO DRUG-DRUG CLASS OR METABOLITE IN CONC. EQUAL TO OR EXCEEDING VALUES LISTED. OPIATES 2000 NG/ML Phencyclidine (PCP) 12/17/2016 NEG NEG-NEG Final Comment: RESULTS WERE OBTAINED BY IMMUNOASSAY AND ARE PRESUMPTIVE ONLY. POSITIV E INDICATES THE PRESENCE OF SUBSTANCE WITH CHARACTERISTICS SIMILAR TO DRUG-DRUG CLASS OR METABOLITE IN CONC. EQUAL TO OR EXCEEDING VALUES LISTED. PHENCYCLIDINE (PCP) 25 NG/ML THC 12/17/2016 NEG NEG-NEG Final Comment: RESULTS WERE OBTAINED BY IMMUNOASSAY AND ARE PRESUMPTIVE ONLY. POSITIV E INDICATES THE PRESENCE OF SUBSTANCE WITH CHARACTERISTICS SIMILAR TO DRUG-DRUG CLASS OR METABOLITE IN CONC. EQUAL TO OR EXCEEDING VALUES LISTED. CANNABINOIDS 50 NG/ML Assessment and Plan: 49 y.o. male with past medical history significant for Hx of DM, HTN developed E SRD on Dialysis, he is here for donor kidney translantation Plan: The patient was seen and examined. He is an acceptable surgical candidate pending full evaluation. I went ahead in discussed with the patient surgical asp ects of kidney transplant, life commitment as well as elaborated on oksana corry living donor transplants, immunosuppression, risks and benefits in detail. We will follow the patient's CT scan. If the patient clears from cardio/pulmona ry and psycho/social standpoint,he/ does not have surgical contraindication for the kidney transplant, the patient will be discussed in our selection committee. Melecio Nielsen MD BOX INSPECTOR documented in this encounter Plan of Treatment Care Team Description Date Type Specialty Berta Harrison MD 4000 [place] [address] Doroteo Enamorado MD 4000 [place] [address] 10/02/2019 Hospital Radiology Encounter documented as of this encounter Goals Goal Patient Associated Recent Progress Patient-Stat Aut hor Goal Type Problems ed? Recover from illness [facility] Rajani Ac RN documented as of this encounter Visit Diagnoses Diagnosis Pre-transplant evaluation for kidney tr ansplant Other specified pre-operative examinati on Controlled type 2 diabetes mellitus wit h diabetic nephropathy, unspecified whether marine oil terminal superintendent insulin use (HCC) Hypertensive renal disease Unspecified hypertensive kidney disease with chronic kidney disease stage I through stage IV, or unspecified PVD (peripheral vascular disease) (HCC) Peripheral vascular disease, unspecifie d documented in this encounter
--- OUTSIDE RECORDS SUMMARY | 2019-09-28 08:54 | XMS REPORT | Encounter Summary ---
Author Author [facility] Organization [facility] Address Unknown Phone Unavailable Care Team Providers Care Furniture Repair Technician Name Role Phone Dania Barksdale MD PCP Jose Huff DO Unavailable Reason for Visit * Reason Comments Records Request Encounter Details Care Team Description Date Type Department Nadine Ahn RN Records Request 04/19/2019 Documentation The [address] [address] Social History Date Tobacco Use Types Packs/Day [...] as of this encounter Progress Notes * Nadine Ahn RN - 04/19/2019 3:09 PM HIGH SCHOOL ASSISTANT PRINCIPAL Record of CT abd and Chest xray requested from [facility] Record of EGD requested from [facility] Record of Pulmonary note and additional testing requested from Dr Huff's offic e Nadine Ahn RN 04/19/19 3:09 PM [facility] Request Sent to [facility] Patient: Stef Pace : 1970 Location: [facility] Study: All available images within previous 12 months. Thank-you! SCHOOL ASSISTANT PRINCIPAL documented in this encounter Plan of Treatment Care Team Description Date Type Specialty Berta Harrison MD 4000 [place] [address] Doroteo Enamorado MD 4000 [place] [address] 10/02/2019 Hospital Radiology Encounter documented as of this encounter Goals Goal Patient Associated Recent Progress Patient-Stat Aut hor Goal Type Problems ed? Recover from illness [facility] Rajani Ac, JAIME documented as of this encounter Visit Diagnoses Not on filedocumented in this encounter
--- OUTSIDE RECORDS SUMMARY | 2019-09-28 08:54 | XMS REPORT | Encounter Summary ---
Author Author [facility] Organization [facility] Address Unknown Phone Unavailable Care Team Providers Care Engineering Illustrator Name Role Phone Dania Barksdale MD PCP Jose Huff DO Unavailable Reason for Visit * Reason Comments Committee Review Encounter Details Care Team Description Date Type Department Nadine Ahn RN Committee Review 04/26/2019 Telephone [facility] [address] [address] Social History Date Tobacco Use Types Packs/Day [...] Encounter - Nadine Ahn RN - 04/26/2019 11:14 AM SAP ARIBA CONSULTANT Called and spoke with Stef. We discussed [...] will need to update his echocardiogram in [facility] 2019. Lastly I was unsuccessful in obtaining his EGD report. He stated he iniguez d completed it at [facility] and it was back in 2014. RN will re-request lesa figueroa from [facility]. Patient stated understanding. Transplant tab changed to ineligible for kidney pancreas Letter drafted and given to PA to mail Episode opened for kidney alone Transplant tab changed to deferred for kidney Letter drafted and given to PA to mail ARIBA CONSULTANT documented in this encounter Plan of Treatment Care Team Description Date Type Specialty Berta Harrison MD 4000 [place] [address] Doroteo Enamorado MD 4000 [place] [address] 10/02/2019 Hospital Radiology Encounter documented as of this encounter Goals Goal Patient Associated Recent Progress Patient-Stat Aut hor Goal Type Problems ed? Recover from illness [facility] Rajani Ac, JAIME documented as of this encounter Visit Diagnoses Not on filedocumented in this encounter
--- OUTSIDE RECORDS SUMMARY | 2019-09-28 08:54 | XMS REPORT | Encounter Summary ---
Author Author [facility] Organization [facility] Address Unknown Phone Unavailable Care Team Providers Care Associate Professor Of Biblical Studies Name Role Phone Dania Barksdale MD PCP Jose Huff DO Unavailable Reason for Visit * Reason Comments Kidney Evaluation Encounter Details Care Team Description Date Type Department Nadine Ahn RN Kidney Evaluation 04/27/2019 Telephone [facility] [address] [address] Social History Date Tobacco Use Types Packs/Day [...] Telephone Encounter - Nadine Ahn RN - 04/27/2019 1:00 PM WALLACE Finch called to ask if we were able to get the records yet. RN advised that I had not had time to request them yet but I would work on it today. Patient was offe ring to repeat the test if we cannot get the records. RN advised it was not nece ssary at this point. We are just wanting to review what he had already completed . Patient stated understanding. RN called [facility]'s medical records department. Spoke with Barb and she was able to locate the EGD in 2014 and is going to fax it to me. TENDER documented in this encounter Plan of Treatment Care Team Description Date Type Specialty Berta Harrison MD 4000 [place] [address] Doroteo Enamorado MD 4000 [place] [address] 10/02/2019 Hospital Radiology Encounter documented as of this encounter Goals Goal Patient Associated Recent Progress Patient-Stat Aut hor Goal Type Problems ed? Recover from illness [facility] Rajani Ac RN documented as of this encounter Visit Diagnoses Not on filedocumented in this encounter
--- OUTSIDE RECORDS SUMMARY | 2019-09-28 08:54 | XMS REPORT | Encounter Summary ---
Author Author [facility] Organization [facility] Address Unknown Phone Unavailable Care Team Providers Care Industrial Automation Specialist Name Role Phone Dania Barksdale MD PCP Jose Huff DO Unavailable Reason for Visit * Reason Comments Transplant Organ Offer Encounter Details Care Team Description Date Type Department Kaylan Mcintyre RN Transplant Organ Offer 05/27/2019 Telephone [facility] [address] [address] Social History Date Tobacco Use Types Packs/Day [...] Telephone Encounter - Kaylan Mcintyre RN - 05/29/2019 10:52 AM BOX REPAIRER Called Dr. Owen's nurse Tamara and advised that we transplanted patient and thanked them for the referral. REPAIRER * Telephone Encounter - Kaylan Mcintyre RN - 05/27/2019 4:21 PM BOX REPAIRER Stef received Right kidney from less than 85% on 05/27/2019 from [facility] ID: [id number] / Match ID: [id number]. Stef removed from [facility] wait list within 24 hours of start of first anastomosis Yes. LVM for Dialysis unit and will call referring provid er during business hours. REPAIRER * Telephone Encounter - Kaylan Mcintyre RN - 05/27/2019 10:51 AM BOX REPAIRER Re[place] from Lincoln Girard [place] [facility] [place] urine culture for gram po sitive radha per [id number]. [facility] will upload the cx in [facility]. Notified Dr. Harrison an wilmar Nielsen of culture. Also notified Dr. Harrison that [facility] reported there are fu ngal cultures pending as well as patient was positive for flu per verbal report. Emailed cultures to Dr. Harrison and Dr. Nielsen and asked that they review them. REPAIRER * Telephone Encounter - Kaylan Mcintyre RN - 05/27/2019 6:57 AM BOX REPAIRER Stef instructed to come to hospital for admission for potential transplant. Tour Agent ssmatch negative. Instructions given to Stef for NPO status, admitting location and items to bring from home. Stef verbalized understanding of instructions. ETA is 0930 hours. Admitting notified. Stef to be admitted to unit Same Day S ugery. OR notified. Transplant team notified. Patient has been NPO since 1930 last night. REPAIRER * Telephone Encounter - Kaylan Mcintyre RN - 05/27/2019 1:21 AM BOX REPAIRER Received organ offer from [facility] number [id number] / Match Run number [id number]. Revie wed donor summary and match run list. Organ donor has KDPI of 60%, patient noti fied. Organ offer is donation after circulatory . Reviewed recipients inf ormed consent visit form. Stef consented to KDPI greater than 85%. Stef is carrol ledezma. Reviewed recipient's history. Notified Stef of organ offer, organ type a nd current status on list. Stef verbalized agreement to proceed with organ offe r. Assessment negative for changes in medical status, social status, insurance changes, and use of anticoagulants. Stef notified to be on standby status and gretta gupta coordinators contact information. Patient advised he cut his thumb and was currently on day 5 of Azithromycin. No infection and is healing well. Dr. Harrison and Dr. Nielsen notified. REPAIRER documented in this encounter Plan of Treatment Care Team Description Date Type Specialty Berta Harrison MD 4000 [place] [address] [phone] Doroteo Enamorado MD 4000 [place] [address] 10/02/2019 [facility] Radiology Encounter Order Schedule Name Type Priority Associated Diag noses Expected: 05/27/2019, Expires: 1 [facility] FLOW CYTOMETRY Pathology Routine Examination of potential CROSSMATCH (CLINIC ONLY donor of organ and tissue SOLID ORGAN TRANSPLANT) documented as of this encounter Goals Goal Patient Associated Recent Progress Patient-Stat Aut hor Goal Type Problems ed? Recover from illness [facility] Rajani Ac RN documented as of this encounter Visit Diagnoses Diagnosis Examination of potential donor of organ and tissue Other specified general medical examina tion documented in this encounter
--- OUTSIDE RECORDS SUMMARY | 2019-09-28 08:54 | XMS REPORT | Encounter Summary ---
Author Author [facility] Organization [facility] Address Unknown Phone Unavailable Care Team Providers Care Marketing Analytics Analyst Name Role Phone Dania Barksdale MD PCP Jose Huff DO Unavailable Reason for Visit * Reason Comments Waitlist Status Update Encounter Details Care Team Description Date Type Department Ndaine Ahn RN Waitlist Status Update 05/10/2019 Telephone [facility] [address] [address] Social History Date Tobacco Use Types Packs/Day [...] Telephone Encounter - Nadine Ahn RN - 05/10/2019 12:32 PM DIRECTOR DATA PROCESSING Called Stef Saadefren Corcoranris to let him know that they are active on the wait list. We discussed current wait time, right to decline and need to respond to organ o ffers with in an hour. Also discussed informing coordinator of insurance, demogr aphics, medical or dialysis changes.Patient stated understanding. We discussed t he need to send in a monthly antibody level. I informed the patient that they we re to receive living donor information in the letter if they have anyone that it is interested in donating. Gave the contact information for our living donation team so they can pass it on to interested donors. Questions answered, patient s tated understanding. Listing verified in [facility] Transplant tab changed to Active Letter drafted and given to MA to mail Notification e-mail sent CTOR DATA PROCESSING documented in this encounter Plan of Treatment Care Team Description Date Type Specialty Berta Harrison MD [address] [place] [address] Doroteo Enamorado MD [address] [place] [address] 10/02/2019 Hospital Radiology Encounter documented as of this encounter Goals Goal Patient Associated Recent Progress Patient-Stat Aut hor Goal Type Problems ed? Recover from illness [facility] Rajani Ac, JAIME documented as of this encounter Visit Diagnoses Not on filedocumented in this encounter
[2019-09-28 08:55] VITALS: BP 141/76
--- OUTSIDE RECORDS SUMMARY | 2019-09-28 08:55 | XMS REPORT | Encounter Summary ---
Author Author [facility] Organization [facility] Address Unknown Phone Unavailable Care Team Providers [employer] Sales Representative Name Role Phone Dania Barksdale MD PCP Jose Huff DO Unavailable Reason for Visit * Reason Comments Kidney Evaluation * Transplant (Routine) Referred By Contact Referred To Contact Status Reason Specialty Diagnoses / Procedures Araceli Owen MD [address] [address] [facility] Nephrology Cl [address] [address] Closed Transplant Diagnoses Surgery Pre-transplant evaluation for kidney transplant Encounter Details Care Team Description Date Type Department Melecio Nielsen MD [address] [id number] Berta Harrison MD 4000 [place] [address] [phone] ESRD (end stage renal disease) (HCC) (Pr imary Dx); Pre-transplant evaluation for end stage renal disease; Encounter for screening for HIV; Other specified diabetes mellitus with other diabetic kidney complication (HCC) ; Encounter for observation for other suspected diseases and conditions ruled out 04/19/2019 Transplant [facility] [address] [address] Social History Date Tobacco Use Types Packs/Day [...] Signs Reading Time Taken Comments Vital Sign 97/59 04/19/2019 10:19 AM AQUATIC PHYSIOTHERAPIST Blood Pressure 93 04/19/2019 10:19 AM AQUATIC PHYSIOTHERAPIST Pulse 36.8 C (98.2 F) 04/19/2019 10:17 AM AQUATIC PHYSIOTHERAPIST Temperature - - Respiratory Rate 93% 04/19/2019 10:17 AM AQUATIC PHYSIOTHERAPIST Oxygen Saturation - - Inhaled Oxygen Concentration 98.4 kg (217 lb) 04/19/2019 10:17 AM AQUATIC PHYSIOTHERAPIST Weight 167.6 cm (5' 6") 04/19/2019 10:17 AM AQUATIC PHYSIOTHERAPIST Height 35.02 04/19/2019 10:17 AM AQUATIC PHYSIOTHERAPIST Body Mass Index documented in this encounter [...] this encounter Patient Instructions * Patient Instructions* Kaylan Mcintyre, JAIME - 04/19/2019 10:20 AM AQUATIC PHYSIOTHERAPIST You were seen by members of the Pre Renal/Pancreas Transplant Team [facility]. The Team has made the following recommendations: ? You will have a chest x-ray and CT of your abdomen WITHOUT contrast. ? Labs completed ? We will review your Endoscopy records from [facility] ? We will review your pulmonary records from Dr. Tate regarding O2 usage with CPA P ? Weight loss of BMI of 30 for SPK ? You will be discussed in our upcoming multi-disciplinary committee. Please keep your Nurse Coordinator informed of ANY changes in your health and in surance status. If you have any questions or concerns, please don't hesitate to ask. It was a pleasure to see you today, thank-you for partnering with [facility] for your care! Kaylan Mcintyre, MSN, RN Nurse Coordinator Renal and Pancreas Transplant Today you were seen by: Nephrology: Dr. Harrison, Surgeon: Dr. Nielsen , Resident Surgeon: Abi Mcdonnell , Pharmacy: Adriana Flores , Social Work: Vita Hilario, and Finance: Rosetta Mathew. TIC PHYSIOTHERAPIST documented in this encounter Progress Notes * Yanelis, Vita - 04/19/2019 10:20 AM AQUATIC PHYSIOTHERAPIST SOCIAL WORK PSYCHOSOCIAL ASSESSMENT Name: [facility] #: [id number] Date: 04/24/2019 Referral Source: Renal Transplant Team Referral Reason: Psychosocial evaluation for kidney vs SPK transplant Date Refe rred: 04/19/19 Source of Information: Patient and spouse Patient's Address: [address] [place] [address] Date(s) Interviewed: 9 Telephone #: [phone] (home) 1. PRESENT SITUATION: Sex: male Age: 49 y.o. Birthdate: 1970 Primary Language: Japanese Ethnic Background: Jainism: (Optional) Diagnosis: ESRD, DM I Statement of Presenting Problem(s): Patient is a 49 y/o male who pres ents for re-evaluation for kidney vs SPK transplant. He was previously declined for transplant listing at this center in 12/2016 for needed weight loss and impr henri DM control. He stated that he has also been denied for listing at [facility] due to using O2 at night. He pursued listing at [facility] in [facility], but stated that he was not financially cleared (he reports that their program requires that he have $5k). He is also planning to pursue evaluation at [facility]. He was first diagnosed with ESRD due to DM I in 2014. He has been on dialysis since 12/2015. He is now on home HD through [facility] and he stated that he completes five treatments weekly and that he 'tries not to miss' and that he is meeting adequ acy. Patient is unable to drive due to vision deficits, his , Pamela, provid es transportation to his medical appointments and for community needs. He state d that he has monthly appointments in the dialysis clinic and that he draws his labs at home. He had his left big toe amputated in 12/2017. He was last hospita lized about eight months ago for pneumonia at [facility] in [place]. He was diagnosed with DM I at the age of 31 and he has had an insulin pump and CGM for the last year and a half and he stated that it has 'been wonderful.' He stated that he c hecks his blood sugars twice daily to calibrate his pump. He stated that he has a new endocrinology provider, his former provider is no longer with that practi ce, and that he sees them quarterly. He reported that his most recent HbA1c was 7.9, it was 8.4 this date. ALEX spoke with ALEX Real, who is not aware of any adherence concerns for caitlin pacheco and she stated that his is a very good support and that they 'do a real ly good job.' 2. PATIENT'S LIVING SITUATION PRIOR TO ADMISSION Citizenship: [place] Citizen Comments: Patient lives with his , Pamela. They have two dogs, two bearded dragons and a snake as household pets. They have lived in their current home, [facility] they rent, for four years. There are 2-3 stairs to enter the home and it i s then all on one level. He uses a BiPAP at night with 2L of O2. He has never had a stay in a SNF, rehab or LTACH. He uses a cane prn to assist with ambulati on and his helps with ADL's if needed. She is his HCBS caregiver, he is ap proved for 49 hours/week, for help with his medical/home HD needs, household cho res, etc. He was born in [place] and he was raised in [place], [place]. 3. FINANCIAL RESOURCES Income: SSDI Primary Insurance: Medicare Secondary Insurance: BCBS Plan F Tertiary Insurance: [employer] Eligible for Medicare based on disability: Eligible due to ESRD/dialysis and SSD I Comments: Patient receives SSDI, in the amount of $1309/mo, for his co-morbidit ies- ESRD/dialysis, DM I, vision deficits, drop foot, etc. Pamela is his paid HC BS caregiver. She also helps with the care of their great-nephews, but stated t hat their niece will figure out a plan for the care of her children at the time of transplant and during patient's post-transplant recovery. They have no other sources of income for the household. He has Medicare A, B & D ([employer], co-pays $3.40-8.50), BCBS Plan F and [employer]- no spenddown- for insurance coverage. The [employer] pays his BCBS premiums and they voiced understanding that this assistance will terminate after transplant and he denies any issues regarding this premium and that he will continue to maintain this coverage due to his preference, he also would be covered with [employer]- with no spenddown. He stated that his new premiums is $179/mo (per doreen Real SW, it was $165/mo in 2019). He fills his medications at [facility] in [place] and he denies any financial barriers related to medication access or to going without medications. He is not receiving any sources of financial assistance with his daily living e xpenses. 4. SUPPORTIVE RELATIONSHIPS/ COMMUNITY RESOURCES Caregivers: Pamela Pace (spouse- [phone]) Sameera (niece- [phone]) Living Donors: Pursuing SPK, sons are potential donors, but patient very relucta nt to accept donation from one of his sons Comments: Patient and his have been for 25 years and they have thr ee sons; ages 27 (lives near [place], [place]) 23 and 21 (both live nearby). They h ave an eight month old grandson ([place]). His father is and his mother is living in [place]. He has one sister, she lives in [place]. Pamela will serve as his primary caregiver post-transplant and she is already actively involved with all of his care and transportation needs. She stated that their sons who live nearby, Aries, will be available as back-up caregivers if needed. Brenden sue are both working and able to drive. She listed their niece, Sameera, as a ba ck-up contact as she stated that their sons 'never answer their phones.' SW pro vided them with the [employer] and [employer] fundraising brochures for their referen ce, patient stated that they had started a campaign with [employer] back in 2017 when dane trujillo was first referred for transplant and that unfortunately, they have not raised any money yet. They voiced understanding of the requirement to stay locally for at least two weeks post-transplant d/c and SW provided them with the [facility] list, they believe that [facility] will assist with travel/lodging expenses, but stated that they will have a plan to manage these expenses if they do not recei ve assistance/reimbursement through insurance. Patient voiced understanding of the weekly to bi-weekly [facility] clinic appointments for the first few months follow ing transplant and annual visits thereafter. He verbalized understanding of the need to have a caregiver to assist with care and transportation post-transplant. He also acknowledged that he will have driving restrictions during his post-t ransplant recovery. 5. COGNITIVE ABILITIES Highest Level of Education: GED (11th grade) Comments: Patient hopes to live a 'normal life' post-transplant. He is most con cerned about if he will be a candidate for transplant this time around. Pamela tran anages his medication regimen and sets up his weekly pill box. Patient stated t hat they use a 'pill sunshine' that was paid for by [employer] and that it has a built in alarm- patient takes his medications independently when the alarm goes off. He denies any non-adherence with his medication regimen. He voiced understandi wilian of the need to take immunosuppressive medications for the life of the transpl ant. He quit using tobacco in 2002 and had started using tobacco around age 13/ 14. He has a past history of methamphetamine use and ETOH abuse and reports mika t he has been sober since the age of 31. He denies any history of counseling or legal issues related to substance abuse. He has a history of depression and is prescribed Prozac by his PCP. He denies h aving any history of SI/SA. He denies any pending legal issues. He wishes for Pamela to be his DPOA-HC agent and stated that he has completed the paperwork, bu t still needs to get this notarized. He enjoys doing woodworking, although this is limited due to his health/vision i ssues. 6. SOCIAL WORK EVALUATION Comments: ALEX met with patient and his , Pamela (and 3 y/o great-nephew, Edil) , as part of his evaluation for kidney vs SPK transplant. He has health insuran ce coverage through Medicare, [employer] and [employer] to meet his medical needs followi transplant. He receives support from his who will serve as his primary caregiver post transplant. He has reasonable expectations for the transplant pr ocess. He quit using tobacco in 2002. He has a history of methamphetamine and ETOH abuse and reports that he has been sober since the age of 31. He has a his tory of depression and is prescribed Prozac from his PCP. Social Work Impression/Recommendation: * SW did not identify any psychosocial contraindications to proceed with kidney vs SPK transplant listing if deemed appropriate by the selection com mittee. 7. PLAN Plan Discussed with Patient / Family: {PLAN DISCUSSED, AGREED UPON Plan Agreed Upon with Patient / Family: {PLAN DISCUSSED, AGREED UPON * SW reviewed the Renal Transplant Patient Responsibilities form with patient an d his , form signed by SW, patient and spouse who both expressed agreement w ith the transplant expectations. Original provided to patient and copy provided to the transplant team to be scanned into the medical record. Vita Hilario LMSW TIC PHYSIOTHERAPIST * Kaylan Mcintyre RN - 04/19/2019 10:20 AM AQUATIC PHYSIOTHERAPIST You were seen by members of the Pre Renal/Pancreas Transplant Team in clinic [facility]. The Team has made the following recommendations: ? You will have a chest x-ray and CT of your abdomen WITHOUT contrast. ? Labs completed ? We will review your Endoscopy records from [facility] ? We will review your pulmonary records from Dr. Tate regarding O2 usage with CPA P ? Weight loss of BMI of 30 for SPK ? You will be discussed in our upcoming multi-disciplinary committee. Please keep your Nurse Coordinator informed of ANY changes in your health and in surance status. If you have any questions or concerns, please don't hesitate to ask. It was a pleasure to see you today, thank-you for partnering with [facility] for your care! Kaylan Mcintyre, MSN, RN Nurse Coordinator Renal and Pancreas Transplant Today you were seen by: Nephrology: Dr. Harrison, Surgeon: Dr. Nielsen , Resident Surgeon: Abi Mcdonnell , Pharmacy: Adriana Mark , Social Work: Vita Hilario, and Finance: Rosetta Mathew. TIC PHYSIOTHERAPIST * Berta Harrison MD - 04/19/2019 10:20 AM AQUATIC PHYSIOTHERAPIST 04/20/19 Stef Pace [id number] 1970 Araceli Owen [address] [facility] [address] [place] [id number] Araceli Owen We had the pleasure of meeting Mr. Pace in the Renal Transplant Clinic for evaluation of candidacy for renal transplantation. He is a 49 y.o. male with PMH ESRD secondary to diabetes. Patient was told of diabetes 30 years ago, patient did not have a primary care d octor before that. He was started on metformin for 1 month and was switched to insulin for better diabetes control. Has been on insulin for almost 30 years. Currently he is on insulin pump of 1 unit/h and bolus with meals and snacks and carb correction. His diabetes is being managed by [facility] Last hospitalization for diabetes related issue was almost more than 6 months ag o. Currently undergoing hypoglycemic episodes 1-2 times per week. Most of the times he reports hypoglycemic unawareness, but does feel dizzy and f lushed sometimes. No seizure history from hypoglycemia. No formal gastric emptying study done. Has retinopathy status post multiple laser surgeries and vitrectomy and bilatera l foot drop. He is currently on dialysis. He was first told of kidney disease in 2014 when dane trujillo was admitted for hyperglycemic coma. He required dialysis for 2 to 3 weeks an d remained off of dialysis for almost 1 year. He was restarted on chronic hemod ialysis in December 2015. He follows with Dr. Charles in [place] as his nephrologis t. He currently makes around 300 cc of urine. He was initially started on in asad ter hemodialysis transition to peritoneal dialysis. He was unable to tolerate p eritoneal dialysis given high sugar content in dialysate and recurrent peritonit is and was transitioned back to in center hemodialysis for couple of weeks with eventual transition to home hemodialysis. He uses left upper extremity buttonho les for access. He does home hemodialysis 5 days every week for 2-hour 50-minute. Usual ultrafi ltration is 2.5 L. His dialysate prescription is 30 L, flow 450 cc, his dry simeon ght is 95 kg. He Was evaluated for combined kidney pancreas transplantation at our center year and a half ago but was denied given high BMI. His Weight during that clinic visit was around 99 kg, currently weighs 98 kg. Personal history: CVA: denies Coronary artery or other heart disease: None Lung disease: Yes is currently using 2 L oxygen with CPAP for GREGORY, previously re ported that he was on 6 L oxygen. Will obtain records from Dr. Huff from [facility]. Denies any shortness of breath, coughing currently. Does report shortness of breath if he is volume overloaded. Sleep Apnea: reports symptoms consistent with GREGORY. Liver disease: None Autoimmune disease: denies joint pains/swelling or rash consistent with rheumato logic diseases Hematologic disorders: denies history of DVT/PEs or bleeding diathesis PVD: denies symptoms consistent with peripheral vascular disease. Denies sympto ms of claudication, although he is unable to walk long distances from bilateral foot drop. Cancer: No history of cancers Infections: History of multiple recurrent infections including left big toe oste omyelitis s/p amputation and previous of admissions for sepsis from ? pneumonia ? UTI. H/o Kidney stones: None Activity/Exercise: rarely NSAID use: None Inupiat UOP: 300 cc every day Neck ROM: normal range of motion and supple Senstiziations: No blood transfusions, no previous organ transplants. Colonoscopy: No high risk family history, patient 49 years old does not qualify for screening colonoscopy currently. PSA: In 2017 0.56, normal Comprehensive Review of Systems: Constitutional: negative, overall feeling well Eyes: negative for irritation and icterus ENT: negative for nasal congestion, epistaxis, hoarseness and mouth sores Respiratory: negative for cough, sputum, increased work of breathing, wheezing o r stridor Cardiovascular: negative for chest pain, chest pressure/discomfort, palpitations , irregular heart beats, syncope, orthopnea Gastrointestinal: negative for nausea, vomiting, melena, diarrhea and abdominal pain Genitourinary:negative for hesitancy, hematuria Integument/breast: negative for rash and pruritus Hematologic/lymphatic: negative for easy bruising and bleeding Musculoskeletal:negative for myalgias, arthralgias and neck pain Neurological: negative for headaches, dizziness, gait problems, tremor and weakn ess Behavioral/Psych: negative for altered mental status and sleep disturbance Endocrine: negative for temperature intolerance Previously had shingles, denies any chickenpox infection, no herpes Unsure about measles and mumps infection. Up-to-date on all vaccines. Allergies: Allergies Allergen Reactions Penicillins ANAPHYLAXIS Codeine VOMITING Past medical History GREGORY, Arthritis Diabetes retinopathy, neuropathy Hypertension Bilateral foot drop History of ulcers, ports endoscopy done at [facility] in [place] in 2014, Depression GERD Esophageal dilatation Past [...] 3 months ago, used meth in the [place], quit when he was diagnosed of diabetes Recently not working, disabled Lives with who will be the primary assisted living care manager post transplant. Fam Hx of CKD/ESRD: None Family History No history of heart disease, maternal grandmother of stroke Mom had cervical cancer underwent hysterectomy never received chemotherapy Dad had throat cancer from smoking, that was adopted therefore patient is unsure of paternal grandparents history Dad also had emphysema from smoking Has 1 sister who is healthy. Social History Socioeconomic History Marital status: Spouse name: Not on file Number of children: Not on file Years of education: Not on file Highest education level: Not on file Occupational History Not on file Tobacco Use Smoking status: Former Smoker Packs/day: 2.00 Years: 30.00 Pack years: 60.00 Last attempt to quit: 12/17/2001 Years since quittin.3 Smokeless tobacco: Never Used Substance and Sexual Activity Alcohol use: Yes Comment: quit 15 years ago Drug use: Yes Comment: quit 15 years ago Sexual activity: Not on file Other Topics Concern Not on file Social History Narrative Not on file Current Medications: Current Outpatient Medications: albuterol sulfate (PROAIR HFA) 90 mcg/actuation aerosol inhaler, Inhale 2 p uffs by mouth into the lungs every 6 hours as needed for Wheezing or Shortness o f Breath. Shake well before use., Disp: , Rfl: bumetanide (BUMEX) 2 mg tablet, Take 2 mg by mouth twice daily., Disp: , Rf l: calcitriol (ROCALTROL) 0.5 mcg capsule, Take 0.5 mcg by mouth every 48 hour s., Disp: , Rfl: calcium acetate (PHOSLO) 667 mg capsule, Take 4 capsules with meals and 2 w ith snacks, Disp: , Rfl: docusate (COLACE) 100 mg capsule, Take 100 mg by mouth twice daily as neede d., Disp: , Rfl: fluoxetine (PROZAC) 40 mg capsule, Take 40 mg by mouth daily., Disp: , Rfl: insulin pump -ASPART- Patients Own, by [employer] Pump route Three times daily wi th meals and as needed., Disp: , Rfl: omeprazole DR(+) (PRILOSEC) 40 mg capsule, Take 40 mg by mouth daily before breakfast., Disp: , Rfl: pregabalin (LYRICA) 75 mg capsule, Take 75 mg by mouth three times daily., Disp: , Rfl: tamsulosin (FLOMAX) 0.4 mg capsule, Take 0.4 mg by mouth daily. Do not jose guadalupe h, chew or open capsules. Take 30 minutes following the same meal each day., Dis p: , Rfl: traZODone (DESYREL) 100 mg tablet, Take 100 mg by mouth at bedtime daily., Disp: , Rfl: Physical Exam: BP 97/59 (BP Source: Arm, Right Upper, Patient Position: Standing) | Pulse 93 | Temp 36.8 C (98.2 F) (Oral) | Ht 167.6 cm (66") | Wt 98.4 kg (217 lb) | SpO2 93% | BMI 35.02 kg/m Body mass index is 35.02 kg/m. General: In NAD; A&Ox3, well appearing, Skin: Warm, dry, no signs of rash HEENT: Grossly normal appearing; EOMI; edentulous, dentures Neck: No bruits CV: Regular, regular rate, normal S1/S2, no murmurs Lungs: CTA bilaterally in posterior jalloh Abd: Grossly normal without rebound, guarding, masses, or bruits, his insulin pu mp, glucose monitoring device. Ext: Normal 1+ edema, Left upper extremity AVF/AVG good thrill bruit, femoral pu lse Neuro: No focal deficits Psych: Affect appropriate Laboratory studies: Urinalysis: Lab Results Component Value Date/Time UCOLOR YELLOW 12/17/2016 01:21 PM TURBID 1+ (A) 12/17/2016 01:21 PM USPGR 1.031 12/17/2016 01:21 PM UPH 5.0 12/17/2016 01:21 PM UPROTEIN 2+ (A) 12/17/2016 01:21 PM UAGLU 2+ (A) 12/17/2016 01:21 PM UKET NEG 12/17/2016 01:21 PM UBILE NEG 12/17/2016 01:21 PM UBLD 2+ (A) 12/17/2016 01:21 PM UROB NORMAL 12/17/2016 01:21 PM Viral Serologies: Viral Serologies Latest Ref Rng & Units 04/19/2019 12/17/2016 CMV IgG - NEG NEG CMV IgM NEG-NEG NEG NEG EBV Capsid IgG - - POS EBV Capsid IgM - - POS EBV Nuclear AG, AB - - POS EBV Early AG,AB - - POS HSV Type 2 IgG NEG-NEG NEG NEG HIV 1 & 2 AG, AB NEG-NEG NEG NEG CBC with Diff: CBC with Diff Latest Ref Rng & Units 04/19/2019 12/17/2016 WBC 4.5 - 11.0 K/UL 6.8 6.6 RBC 4.4 - 5.5 M/UL 4.13(L) 3.86(L) HGB 13.5 - 16.5 GM/DL 13.1(L) 11.6(L) HCT 40 - 50 % 39.3(L) 33.9(L) MCV 80 - 100 FL 95.2 87.9 MCH 26 - 34 PG 31.8 29.9 MCHC 32.0 - 36.0 G/DL 33.4 34.0 RDW 11 - 15 % 15.1(H) 14.5 PLT 150 - 400 K/UL 175 175 MPV 7 - 11 FL 9.4 10.7 NEUT 41 - 77 % 77 75 ANC 1.8 - 7.0 K/UL 5.20 4.90 LYMA 24 - 44 % 11(L) 13(L) ALYM 1.0 - 4.8 K/UL 0.70(L) 0.90(L) ANGELA 4 - 12 % 10 9 AMONO 0 - 0.80 K/UL 0.70 0.60 EOSA 0 - 5 % 1 2 AEOS 0 - 0.45 K/UL 0.10 0.10 BASA 0 - 2 % 1 1 ABAS 0 - 0.20 K/UL 0.00 0.00 CMP: CMP Latest Ref Rng & Units 04/19/2019 12/17/2016 NA 137 - 147 MMOL/L - 128(L) K 3.5 - 5.1 MMOL/L - 4.4 CL 98 - 110 MMOL/L - 91(L) CO2 21 - 30 MMOL/L - 28 GAP 3 - 12 - 9 BUN 7 - 25 MG/DL - 48(H) CR 0.4 - 1.24 MG/DL - 6.49(H) GLUX 70 - 100 MG/DL - 65(L) CA 8.5 - 10.6 MG/DL - 11.9(H) TP 6.0 - 8.0 G/DL 7.7 6.4 ALB 3.5 - 5.0 G/DL 4.6 3.2(L) ALKP 25 - 110 U/L 84 193(H) ALT 7 - 56 U/L 16 24 TBILI 0.3 - 1.2 MG/DL 0.4 0.2(L) GFR >60 mL/min - 9(L) GFRAA >60 mL/min - 11(L) Other Common Labs: Other Common Labs Latest Ref Rng & Units 04/19/2019 12/17/2016 PO4 2.0 - 4.5 MG/DL 7.1(H) 6.3(H) UPRO NEG-NEG - 2+(A) HBA1C 4.0 - 6.0 % 8.4(H) 11.4(H) PSAS <4.0 NG/ML - 0.56 Imaging: Results for orders placed during the [...] placed during the hospital encounter of 12/17/16 CHEST 2 VIEWS Impression 1. Mild bilateral areas of linear atelectasis and/or scarring. Other gonzalez, no acute cardiopulmonary abnormality. 2. Mild pneumoperitoneum. In correlation with same day CT abdomen and pelvis, th is is likely due to indwelling peritoneal dialysis catheter. Finalized by HANK PAZ M.D. on 12/17/2016 4:14 PM. Dictated by So KWON on 12/17/2016 4:05 PM. Patient Active Problem List Diagnosis Date Noted ESRD (end stage renal disease) ([facility]) 12/22/2016 Assessment and Plan: Mr. Pace is a 49 y.o. male who presents today for kidney transplanta tion evaluation. Potential barriers for transplantation that include: Body habitus, additionally will need the following. Prior to transplantation, #) Routine pre-transplant labs including ABO, CMP, CBC, INR, toxicology, viral s erologies, toxoplasma/syphilis histocompatibilty, HLA/PRA testing. #) CT Abdomen/pelvis anatomic suitability to be determined in committee with tra nsplant surgery #) Weight loss- goal 180-185 lbs #) Obtain GI endoscopy result. #) Is obtained pulmonary GREGORY resolved. EKG from care everywhere 04 April 2019- Normal sinus rhythm poor R wave progr ession, QTC 471 CXR 04/20/19 -pending Living Donors: None, being evaluated for SPK. Ultimately, I believe that he is a(n) marginal candidate for SPK transplantation with given high BMI, although good candidate for kidney only transplant. The kidney allocation system, KDPI, and EPTS education was reviewed with Mr. Nilo castro. We discussed the risks, benefits, and complications of renal transplantation wit h the patient. donor and living donor transplantation and wait times we re also discussed. I explained the in-hospital course after transplantation, as well as the post-transplant follow-up and the absolute requirement for lifelong administration of immunosuppressant medications. The use, compliance with meds a nd side effects of immunosuppression including malignancy and infection were als o discussed. The risk of primary graft non-function, slow graft function (SGF), delayed graft function (DGF), rejection, primary disease recurrence were also di scussed. he demonstrated a full and adequate understanding. he denied any questi ons or concerns at this time. The patient was informed that higher KDPI (>85%) kidneys may incur some small additional risks compared to an standard criteria donor (SCD or KDPI below 85%) kidney. These risks include: 1. Kidney is slow to function after transplant. This can last from a couple of days to a couple of weeks. This is called delayed graft function. Because the kidneys may not work immediately after surgery, patients may have to receive di alysis after transplant. This can also happen with a lower KDPI kidney. 2. About 1-2% of high KDPI kidneys may never work well enough after transplanta tion to allow for the discontinuation of dialysis. This is slightly higher risk than that for standard criteria donor kidneys. 3. A high KDPI kidney may not function for as long as a low KDPI donor kidney. Nationally, 89% of low KDPI (<85% KDPI) kidneys are functioning at one year and 75% are functioning at three years. Compare this to 84% of kidneys with a KDPI of 98% that still function at one year and 69% that still function at three years. It must be noted that these are averages and may not apply for any individual kidney. While there are risks to transplanting higher KDPI (>85%) kidneys, there are also benefits. These benefits include: 1. Agreeing to be considered for a higher KDPI (>85%) kidney means they may not have to wait as long for a transplant. 2. In any one person, the kidney either works or does not work. If the kidney works they enjoy all the benefits of a function kidney including a better qualit y of life and a longer life span compared to staying on dialysis. Even though a patient agrees to a higher KDPI (>85%) kidney, they could still get a lower KDPI (<85%) kidney. Mr. Pace was informed they have a right to refuse any kidney that is offered t o them for transplant without affecting their status on the wait list. Aside from myself, he met with one of our pre-transplant nurse coordinators, tician, pharmacy, social services manager and financial counselor. The patient was informed that if his medical condition changes or she does not p ass the medical/surgical testing protocol, transplantation will not be an option for the treatment of his renal disease. Mr. Pace will be discussed in our Multidisciplinary Committee Selection Dulce Maria glynn before a final decision is made. The patient will be contacted by the pre-nunez splant coordinator with the final decision and if any additional items/tests are requested. Thank you for giving us the opportunity in taking care of this patient. Please do not hesitate to contact us with any questions or concerns that you may have. Yours sincerely, Berta Harrison MD Kidney and Pancreas Transplant TIC PHYSIOTHERAPIST * Rosetta Wilson - 04/19/2019 10:20 AM AQUATIC PHYSIOTHERAPIST FINANCIAL TRANSPLANT EVALUATION ROSELIA Mathew met with [...] medications and verbalized understanding of Transplant Finance Manager Integrated rdinator's discussion and documents presented. Advised patient to call ROSELIA Bran if any insurance changes. Provided patient with ROSELIA Quinonez's contact informatio n. Patient verbalized understanding. No Financial Assessment given due to NO fin ancial liabilities. Medical, Transplant and Immunosuppressives are covered 100%. No Authorization required prior to listing. Documents presented: Signed Patient Liability Form, Medication Cost Estimate. Terri Tran 04/19/19 TIC PHYSIOTHERAPIST documented in this encounter Plan of Treatment Care Team Description Date Type Specialty Berta Harrison MD [address] [place] [address] [phone] Doroteo Enamorado MD [address] [place] [address] 10/02/2019 Hospital Radiology Encounter Date/Time Name Type Priority Associated Diag noses 04/19/2019 2:43 PM AQUATIC PHYSIOTHERAPIST RED TOP TUBE FOR MTN Lab Routine Pre-trans plant evaluation TRANSPLANT for end stage renal disease ESRD (end stage renal disease) (H[facility]) 04/19/2019 2:43 PM AQUATIC PHYSIOTHERAPIST LAVENDER (EDTA) TOP TUBE Lab Routine Pre-t ransplant evaluation FOR MTN TRANSPLANT for end stage renal disease ESRD (end stage renal disease) ([facility]) Order Schedule Name Type Priority Associated Diag noses Expected: 04/19/2019 (Approximate), Expi res: 04/18/2020 RED TOP TUBE FOR MTN Lab Routine Pre-trans plant evaluation TRANSPLANT for end stage renal disease ESRD (end stage renal disease) (HCC) Expected: 04/19/2019 (Approximate), Expi res: 04/19/2020 LAVENDER (EDTA) TOP TUBE Lab Routine Pre-t ransplant evaluation FOR MTN TRANSPLANT for end stage renal disease ESRD (end stage renal disease) ([facility]) documented as of this encounter Goals Goal Patient Associated Recent Progress Patient-Stat Aut hor Goal Type Problems ed? Recover from illness [facility] Rajani Ac RN documented as of this encounter Results * CHEST 2 VIEWS (06/05/2019 12:09 PM AQUATIC PHYSIOTHERAPIST) Specimen Impressions Performed At 1. Mild cardiomegaly [...] Interface, Radiant Results - 06/05/2019 1:58 PM AQUATIC PHYSIOTHERAPIST CHEST 2 VIEWS Indication: Pre Renal Transplant [...] on 06/05/2019 1:54 PM. Performing Organization Address [facility] one Number CLAUDIA RAD RESULTS * PHENCYCLIDINES-URINE RANDOM (06/04/2019 8:08 AM AQUATIC PHYSIOTHERAPIST) Phencyclidine NEG NEG-NEG MAIN LAB (PCP) Comment: RESULTS WERE OBTAINED BY IMMUNOASSAY AND ARE PRESUMPTIVE ONLY. POSITIVE INDICATES THE PRESENCE OF SUBSTANCE WITH CHARACTERISTICS SIMILAR TO DRUG-DRUG CLASS OR METABOLITE IN CONC. EQUAL TO OR EXCEEDING VALUES LISTED. PHENCYCLIDINE (PCP) 25 NG/ML Specimen Urine - Urine Performing Organization [facility] one Number MAIN LAB [address] [place] [address] * OPIATES-URINE RANDOM (06/04/2019 8:08 AM AQUATIC PHYSIOTHERAPIST) Opiates-Urine NEG NEG-NEG MAIN LAB Comment: RESULTS WERE OBTAINED BY IMMUNOASSAY AND ARE PRESUMPTIVE ONLY. POSITIVE INDICATES THE PRESENCE OF SUBSTANCE WITH CHARACTERISTICS SIMILAR TO DRUG-DRUG CLASS OR METABOLITE IN CONC. EQUAL TO OR EXCEEDING VALUES LISTED. OPIATES 2000 NG/ML Specimen Urine - Urine Performing [facility] one Number MAIN LAB [address] [place] [address] * COCAINE-URINE RANDOM (06/04/2019 8:08 AM AQUATIC PHYSIOTHERAPIST) Cocaine-Urine NEG [facility]G-[facility]G [facility] Comment: RESULTS WERE OBTAINED BY IMMUNOASSAY AND ARE PRESUMPTIVE ONLY. POSITIVE INDICATES THE PRESENCE OF SUBSTANCE WITH CHARACTERISTICS SIMILAR TO DRUG-DRUG CLASS OR METABOLITE IN CONC. EQUAL TO OR EXCEEDING VALUES LISTED. COCAINE 300 NG/ML Specimen Urine - Urine Performing [facility] one Number MAIN LAB [address] [place] [address] * CANNABINOIDS-URINE RANDOM (06/04/2019 8:08 AM AQUATIC PHYSIOTHERAPIST) THC NEG NEG-NEG MAIN LAB Comment: RESULTS WERE OBTAINED BY IMMUNOASSAY AND ARE PRESUMPTIVE ONLY. POSITIVE INDICATES THE PRESENCE OF SUBSTANCE WITH CHARACTERISTICS SIMILAR TO DRUG-DRUG CLASS OR METABOLITE IN CONC. EQUAL TO OR EXCEEDING VALUES LISTED. CANNABINOIDS 50 NG/ML Specimen Urine - Urine Performing Organization [facility] one Number MAIN LAB [address] [place] [address] * BENZODIAZEPINES-URINE RANDOM (06/04/2019 8:08 AM AQUATIC PHYSIOTHERAPIST) Benzodiazepines NEG NEG-NEG MAIN LAB Comment: RESULTS WERE OBTAINED BY IMMUNOASSAY AND ARE PRESUMPTIVE ONLY. POSITIVE INDICATES THE PRESENCE OF SUBSTANCE WITH CHARACTERISTICS SIMILAR TO DRUG-DRUG CLASS OR METABOLITE IN CONC. EQUAL TO OR EXCEEDING VALUES LISTED. BENZODIAZEPINES 200 NG/ML Specimen Urine - Urine Performing Organization Address [facility] Ph one Number MAIN LAB [address] [place] [address] * BARBITURATES-URINE RANDOM (06/04/2019 8:08 AM AQUATIC PHYSIOTHERAPIST) Barbiturates,Ur NEG NEG-NEG MAIN LAB ine Comment: RESULTS WERE OBTAINED BY IMMUNOASSAY AND ARE PRESUMPTIVE ONLY. POSITIVE INDICATES THE PRESENCE OF SUBSTANCE WITH CHARACTERISTICS SIMILAR TO DRUG-DRUG CLASS OR METABOLITE IN CONC. EQUAL TO OR EXCEEDING VALUES LISTED. BARBITURATES 200 NG/ML Specimen Urine - Urine Performing Organization Address [facility] one Number MAIN LAB [address] [place] [address] * AMPHETAMINES-URINE RANDOM (06/04/2019 8:08 AM AQUATIC PHYSIOTHERAPIST) Amphetamines NEG NEG-NEG MAIN LAB Comment: RESULTS WERE OBTAINED BY IMMUNOASSAY AND ARE PRESUMPTIVE ONLY. POSITIVE INDICATES THE PRESENCE OF SUBSTANCE WITH CHARACTERISTICS SIMILAR TO DRUG-DRUG CLASS OR METABOLITE IN CONC. EQUAL TO OR EXCEEDING VALUES LISTED. AMPHETAMINES 1000 NG/ML Specimen Urine - Urine Performing Organization Address [facility] one Number MAIN LAB [address] [place] [address] * VARICELLA ZOSTER AB IGG (04/19/2019 2:43 PM AQUATIC PHYSIOTHERAPIST) Varcella Zoster POS MAIN LAB IgG Specimen Blood Performing Organization Address [facility] Ph one Number MAIN LAB [address] [place] [address] * LIVER FUNCTION PANEL (04/19/2019 2:43 PM AQUATIC PHYSIOTHERAPIST) Total Bilirubin 0.4 0.3 - 1.2 MG/DL [facility] MAIN LAB Bilirubin, 0.1 <0.4 MG/DL [facility] MAIN LAB Direct Albumin 4.6 3.5 - 5.0 G/DL MAIN LAB Alk Phosphatase 84 25 - 110 U/L [facility] MAIN LAB AST (SGOT) 18 7 - 40 U/L MAIN LAB ALT (SGPT) 16 7 - 56 U/L MAIN LAB Total Protein 7.7 6.0 - 8.0 G/DL MAIN LAB Specimen Blood Performing Organization Address [facility] one Number MAIN LAB [address] [place] [address] * PARATHYROID HORMONE (04/19/2019 2:43 PM AQUATIC PHYSIOTHERAPIST) PTH Hormone 367.3 (H) 10 - 65 PG/ML MAIN LAB Specimen Blood Performing Organization Address [facility] one Number MAIN LAB [address] [place] [address] * HEMOGLOBIN A1C (04/19/2019 2:43 PM AQUATIC PHYSIOTHERAPIST) Hemoglobin A1C 8.4 (H) 4.0 - 6.0 % MAIN LAB Comment: The ADA recommends that most patients with type 1 and type 2 diabetes maintain an A1c level <7%. Specimen Blood Performing Organization Address [facility] one Number MAIN LAB [address] [place] [address] * TOXOPLASMA IGM (04/19/2019 2:43 PM AQUATIC PHYSIOTHERAPIST) Toxoplasma IgM NEG MAIN LAB Specimen Blood Performing Organization Address [facility] one Number MAIN LAB [address] [place] [address] * TOXOPLASMA IGG (04/19/2019 2:43 PM AQUATIC PHYSIOTHERAPIST) Toxoplasma IgG NEG MAIN LAB Specimen Blood Performing Organization Address [facility] one Number MAIN LAB [address] [place] [address] * SYPHILIS AB SCREEN (04/19/2019 2:43 PM AQUATIC PHYSIOTHERAPIST) Syphilis AB, NEG NEG-NEG MAIN LAB Total Comment: Negative EIA: Negative results indicate no past or present syphilis infection. Early infection can not be excluded. Specimen Blood Performing Organization Address [facility] one Number MAIN LAB [address] [place] [address] * PROTIME INR (PT) (04/19/2019 2:43 PM AQUATIC PHYSIOTHERAPIST) INR 0.9 0.8 - 1.2 [facility] MAIN LAB Specimen Blood Performing Organization Address [facility] one Number MAIN LAB [address] [place] [address] * PHOSPHORUS (04/19/2019 2:43 PM AQUATIC PHYSIOTHERAPIST) Phosphorus 7.1 (H)Comment: NOTE NEW 2.0 - 4.5 MG/DL [facility] AIN LAB REFERENCE RANGES Specimen Blood Performing Organization Address [facility] one Number MAIN LAB [address] [place] [address] * HERPES SIMPLEX IGG AB (HSV IGG) (04/19/2019 2:43 PM AQUATIC PHYSIOTHERAPIST) HSV Type 1 IgG POS (A) NEG-NEG MAIN LAB HSV Type 2 IgG NEG NEG-NEG MAIN LAB Specimen Blood Performing Organization Address [facility] one Number MAIN LAB [address] [place] [address] * HIV-1/2 ANTIGEN/ANTIBODY SCREEN (04/19/2019 2:43 PM AQUATIC PHYSIOTHERAPIST) HIV 1 and 2 AG NEG NEG-NEG MAIN LAB AB Screen Specimen Blood Performing Organization Address [facility] one Number MAIN LAB [address] [place] [address] * HEPATITIS C AB (04/19/2019 2:43 PM AQUATIC PHYSIOTHERAPIST) Anti HCV NEG NEG-NEG MAIN LAB Specimen Blood Performing Organization Address [facility] Ph one Number MAIN LAB [address] [place] [address] * HEPATITIS B SURFACE AG (04/19/2019 2:43 PM AQUATIC PHYSIOTHERAPIST) HBsAg NEG NEG-NEG MAIN LAB Specimen Blood Performing Organization Address [facility] one Number MAIN LAB [address] [place] [address] * HEPATITIS B SURFACE AB (04/19/2019 2:43 PM AQUATIC PHYSIOTHERAPIST) Anti HBs 28.1 mIU/ml [facility] MAIN LAB Comment: Hepatitis B Surface Antibody Reference Ranges >12.0 Positive 8.0-12.0 Equivocal <8.0 Negative Specimen Blood Performing Organization Address City/[facility]/Zipcode Ph one Number KU MAIN LAB [address] [place] [address] * HEPATITIS B CORE AB TOT (IGG+IGM) (04/19/2019 2:43 PM AQUATIC PHYSIOTHERAPIST) Anti HBc Total NEG [facility] MAIN LAB Specimen Blood Performing Organization Address [facility] one Number KU MAIN LAB [address] [place] [address] * GGTP (04/19/2019 2:43 PM AQUATIC PHYSIOTHERAPIST) GGTP 17 9 - 64 U/L [facility] MAIN LAB Specimen Blood Performing Organization Address [facility] one Number KU MAIN LAB [address] [place] [address] * CMV AB IGM (04/19/2019 2:43 PM AQUATIC PHYSIOTHERAPIST) CMV, IgM NEG NEG-NEG K[facility] MAIN LAB Specimen Blood Performing Organization Address [facility] one Number KU MAIN LAB [address] [place] [address] * CMV AB IGG (04/19/2019 2:43 PM AQUATIC PHYSIOTHERAPIST) CMV, IgG NEG [facility] MAIN LAB Specimen Blood Performing Organization Address [facility] one Number KU MAIN LAB [address] [place] [address] * CBC AND DIFF (04/19/2019 2:43 PM AQUATIC PHYSIOTHERAPIST) White Blood 6.8 4.5 - 11.0 K/UL MAIN LAB Cells RBC 4.13 (L) 4.4 - 5.5 M/UL MAIN LAB Hemoglobin 13.1 (L) 13.5 - 16.5 GM/DL MAIN LAB Hematocrit 39.3 (L) 40 - 50 % KU MAIN LAB MCV 95.2 80 - 100 FL MAIN LAB MCH 31.8 26 - 34 PG MAIN LAB MCHC 33.4 32.0 - 36.0 G/DL MAIN LAB RDW 15.1 (H) 11 - 15 % K[facility] MAIN LAB Platelet Count 175 150 - 400 K/UL MAIN LAB MPV 9.4 7 - 11 FL MAIN LAB Neutrophils 77 41 - 77 [...] Ph one Number KU MAIN LAB [address] [place] [address] documented in this encounter Visit Diagnoses Diagnosis Pre-transplant evaluation for end stage renal disease Other specified pre-operative examinati on ESRD (end stage renal disease) (HCC) End stage renal disease Encounter for screening for HIV Other specified diabetes mellitus with other diabetic kidney complication (HCC) Encounter for observation for other corry pected diseases and conditions ruled out documented in this encounter
--- OUTSIDE RECORDS SUMMARY | 2019-09-28 08:55 | XMS REPORT ---
Author Author Stef ESQUIVEL [facility] Address [address] [place] [address] Care Team Providers [employer] Producer Name Role Phone ELKE ESQUIVEL Unavailable PROBLEMS Type Condition ICD9-CM Code [id number] Code Onset Dates Condition S tatus SNOMED Code Problem Diabetic peripheral neuropathy E11.42 Active 559011993 Problem Type 1 diabetes mellitus with other specified complication E10.69 Active 36488282 Problem Primary insomnia F51.01 Active 397 2004 Problem Depression, unspecified depression type F32.9 Active 93057163 Problem Anemia, unspecified type D64.9 Activ e 494919686 Problem Falls frequently R29.6 Active 279 711611 Problem Bilateral hearing loss, unspecified hearing loss type H91.93 Active 26865719 Problem Other chronic pain G89.29 Active 8 3474661 Problem End stage renal disease N18.6 Active 59184051 Problem Major depression, chronic F34.1 Acti ve 149150580 Problem Chronic GERD K21.9 Active 2126446 09 ALLERGIES No Information ENCOUNTERS Encounter Location Date Diagnosis [facility] [place] [address] [facility] [id number] [address] [place] [phone] Jun, [facility] [place] [address] [facility] [id number] [address] [place] [phone] 14 Apr, 2018 Diabetic peripheral neuropat hy E11.42 [facility] [place] [address] [facility] [id number] [address] [place] [phone] Apr, [facility] [place] [address] [facility] [id number] [address] [place] [phone] Mar, Diabetic peripheral neuropat hy E11.42 [facility] [place] [address] [facility] [id number] [address] [place] [phone] Feb, [facility] [place] [address] [facility] [id number] [address] [place] [phone] Jan, [facility] [place] [address] [id number] [address] [place] [phone] Dec, Primary insomnia F51.01 [facility] [place] [address] [id number] [address] [place] [id number] Dec, [facility] [place] [address] [id number] [address] [place] [phone] Nov, [facility] [place] [address] [id number] [address] [place] [phone] Nov, Diabetic peripheral neuropat hy E11.42 [facility] [place] [address] [id number] [address] [place] [phone] Oct, Type 1 diabetes mellitus wit h other specified complication E10.69 ; Diabetic peripheral neuropathy E11.42 and End stage renal disease N18.6 [facility] [place] [address] [facility] [id number] [address] [place] [phone] Oct, [facility] [place] [address] [id number] [address] [place] [phone] September, [facility] [place] [address] [facility] [id number] [address] [place] [phone] Aug, Effusion of right elbow M25. 421 [facility] [place] [address] [id number] [address] [place] [phone] Aug, Diabetic peripheral neuropat hy E11.42 [facility] [place] [address] [id number] [address] [place] [phone] Jul, [facility] [place] [address] [facility] [id number] [address] [place] [id number] Jul, Medicare annual wellness vis it, initial Z00.00 ; Diabetic peripheral neuropathy E11.42 ; End stage renal disease N18.6 ; Type 1 diabetes mellitus with other specified complication E10.69 ; Anemia, unspecified type D64.9 ; Falls frequently R29.6 ; Chronic GERD K21.9 ; Major depression, chronic F34.1 and Bilateral hearing loss, unspecified hearing loss type H91.93 [facility] [place] [address] [id number] [address] [place] [phone] Jun, [facility] [place] [address] [facility] [id number] [address] [place] [phone] Jun, Low back pain M54.5 and Prim linwood insomnia F51.01 [facility] [place] [address] [facility] [id number] [address] [place] [phone] May, Diabetic peripheral neuropat hy E11.42 [facility] [place] [address] [id number] [address] [place] [phone] May, [facility] [place] [address] [facility] [id number] [address] [place] [phone] May, [facility] [place] [address] [facility] [id number] [address] [place] [phone] May, [facility] [place] [address] [facility] [id number] [address] [place] [phone] May, Diabetic peripheral neuropat hy E11.42 ; Type 1 diabetes mellitus with other specified complication E10.69 ; Primary insomnia F51.01 ; Depression, unspecified depression type F32.9 ; End stage renal disease N18.6 ; Left foot drop M21.372 and Foot drop, right foot M21.371 [facility] [place] [address] [facility] [id number] [address] [place] [phone] Apr, [facility] [place] [address] [facility] [id number] [address] [place] [phone] Apr, [facility] [place] [address] [facility] [id number] [address] [place] [phone] Mar, Foot drop, left M21.372 and Foot drop, right M21.371 [facility] [place] [address] [facility] [id number] [address] [place] [phone] Mar, [facility] [place] [address] [facility] [id number] [address] [place] [phone] Feb, Type 1 diabetes mellitus wit h other specified complication E10.69 and Olecranon bursitis, unspecified laterality M70.20 [facility] [place] [address] [id number] [address] [place] [phone] 06 Feb, 2017 [facility] [place] [address] [id number] [address] [place] [phone] Feb, Diabetic peripheral neuropat hy E11.42 [facility] [place] [address] [id number] [address] [place] [phone] Jan, Type 1 diabetes mellitus wit h other specified complication E10.69 [facility] [place] [address] [id number] [address] [place] [phone] Dec, Type 1 diabetes mellitus wit h other specified complication E10.69 ; Primary insomnia F51.01 ; End stage renal disease N18.6 and Chronic GERD K21.9 [facility] [place] [address] [id number] [address] [place] [phone] Dec, [facility] [place] [address] [id number] [address] [place] [phone] Nov, [facility] [place] [address] [id number] [address] [place] [phone] Oct, Diabetic peripheral neuropat hy E11.42 [facility] [place] [address] [id number] [address] [place] [phone] Oct, [facility] [place] [address] [id number] [address] [place] [phone] September, Type 1 diabetes mellitus wit h other specified complication E10.69 [facility] [place] [address] [id number] [address] [place] [phone] September, Diabetic peripheral neuropat hy E11.42 [facility] [place] [address] [id number] [address] [place] [phone] September, Diabetic peripheral neuropat hy E11.42 ; Type 1 diabetes mellitus with other specified complication E10.69 and End stage renal disease N18.6 [facility] [place] [address] [id number] [address] [place] [phone] September, [facility] [place] [address] [id number] [address] [place] [phone] September, [facility] [place] [address] [id number] [address] [place] [phone] Aug, [facility] [place] [address] [id number] [address] [place] [phone] Aug, Low back pain, unspecified b ack pain laterality, unspecified chronicity, with sciatica presence unspecified M54.5 [facility] [place] [address] [id number] [address] [place] [phone] Aug, [facility] [place] [address] [id number] [address] [place] [phone] Jul, [facility] [place] [address] [id number] [address] [place] [phone] Jul, Low back pain M54.5 ; Other chronic pain G89.29 ; Type 1 diabetes mellitus with other specified complication E10.69 ; Diabetic peripheral neuropathy E11.42 ; Left foot drop M21.372 and Foot drop, right foot M21.371 [facility] [place] [address] [id number] [address] [place] [phone] Jul, [facility] [place] [address] [id number] [address] [place] [phone] Jul, [facility] [place] [address] [id number] [address] [place] [phone] Jun, Low back pain, unspecified b ack pain laterality, unspecified chronicity, with sciatica presence unspecified M54.5 [facility] [place] [address] [id number] [address] [place] [phone] Jun, [facility] [place] [address] [id number] [address] [place] [phone] Jun, [facility] [place] [address] [id number] [address] [place] [phone] Jun, [facility] [place] [address] [id number] [address] [place] [phone] May, Type 1 diabetes mellitus wit h other specified complication E10.69 ; Diabetic peripheral neuropathy E11.42 and End stage renal disease N18.6 [facility] [place] [address] [id number] [address] [place] [phone] Apr, Bronchitis J40 [facility] [place] [address] [facility] [id number] [address] [place] [address] Apr, Other bursal cyst, left elbo w M71.322 [facility] [place] [address] [facility] [id number] [address] [place] [phone] Apr, [facility] [place] [address] [facility] [id number] [address] [place] [phone] Apr, Other bursal cyst, left elbo w M71.322 [facility] [place] [address] [id number] [address] [place] [phone] Mar, [facility] [place] [address] [id number] [address] [place] [phone] Mar, Rib pain R07.81 and Type 1 d iabetes mellitus with other specified complication E10.69 [facility] [place] [address] [id number] [address] [place] [phone] Feb, [facility] [place] [address] [id number] [address] [place] [phone] Feb, [facility] [place] [address] [id number] [address] [place] [phone] Dec, [facility] [place] [address] [facility] [id number] [address] [place] [phone] Dec, [facility] [place] [address] [id number] [address] [place] [phone] Nov, Type 1 diabetes mellitus wit h other specified complication E10.69 and End stage renal disease N18.6 [facility] [place] [address] [id number] [address] [place] [phone] Nov, [facility] [place] [address] [id number] [address] [place] [phone] Nov, [facility] [place] [address] [id number] [address] [place] [phone] Nov, [facility] [place] [address] [id number] [address] [place] [phone] Nov, [facility] [place] [address] [id number] [address] [place] [phone] Nov, [facility] [place] [address] [id number] [address] [place] [phone] Oct, [facility] [place] [address] [id number] [address] [place] [phone] Oct, [facility] [place] [address] [id number] [address] [place] [phone] September, [facility] [place] [address] [id number] [address] [place] [phone] September, Type 1 diabetes mellitus wit h other specified complication E10.69 [facility] [place] [address] [id number] [address] [place] [phone] September, [facility] [place] [address] [id number] [address] [place] [phone] September, Diabetic peripheral neuropat hy E11.42 ; Type 1 diabetes mellitus with other specified complication E10.69 ; Chronic kidney disease, stage 3 (moderate) N18.3 and Incomplete tear of left rotator cuff M75.112 [facility] [place] [address] [id number] [address] [place] [phone] September, [facility] [place] [address] [id number] [address] [place] [phone] Aug, [facility] [place] [address] [id number] [address] [place] [phone] Aug, [facility] [place] [address] [id number] [address] [place] [phone] Aug, Other chronic pain G89.29 an d Pain in left shoulder M25.512 [facility] [place] [address] [id number] [address] [place] [phone] Aug, Physical deconditioning R53. 81 ; Pain in right shoulder M25.511 and Other chronic pain G89.29 [facility] [place] [address] [id number] [address] [place] [phone] Aug, [facility] [place] [address] [id number] [address] [place] [phone] Jul, Type 1 diabetes mellitus wit h other specified complication E10.69 ; Diabetic peripheral neuropathy E11.42 and Physical deconditioning R53.81 [facility] [place] [address] [id number] [address] [place] [phone] Jul, [facility] [place] [address] [id number] [address] [place] [phone] Jul, [facility] [place] [address] [id number] [address] [place] [phone] Jun, [facility] [place] [address] [id number] [address] [place] [phone] Jun, Type 1 diabetes mellitus wit h other specified complication E10.69 ; Insomnia G47.00 and Diabetic peripheral neuropathy E11.42 [facility] [place] [address] [id number] [address] [place] [phone] Jun, [facility] [place] [address] [id number] [address] [place] [phone] Jun, Physical deconditioning R53. 81 [facility] [place] [address] [id number] [address] [place] [phone] Jun, [facility] [place] [address] [facility] [id number] [address] [place] [phone] May, [facility] [place] [address] [facility] [id number] [address] [place] [phone] May, [facility] [place] [address] [facility] [id number] [address] [place] [phone] May, [facility] [place] [address] [facility] [id number] [address] [place] [phone] May, [facility] [place] [address] [facility] [id number] [address] [place] [phone] May, [facility] [place] [address] [facility] [id number] [address] [place] [phone] May, Adjustment disorder with dep ressed mood F43.21 [facility] [place] [address] [facility] [id number] [address] [place] [phone] May, Type 1 diabetes mellitus wit h other specified complication E10.69 ; Anemia, unspecified type D64.9 ; Gastric peptic ulcer, acute K25.3 and Physical deconditioning R53.81 [facility] [place] [address] [facility] [id number] [address] [place] [phone] May, [facility] [place] [address] [facility] [id number] [address] [place] [phone] May, Type 1 diabetes mellitus wit h other specified complication E10.69 [facility] [place] [address] [facility] [id number] [address] [place] [phone] May, [facility] [place] [address] [facility] [id number] [address] [place] [phone] May, [facility] [place] [address] [facility] [id number] [address] [place] [phone] May, [facility] [place] [address] [facility] [id number] [address] [place] [phone] May, [facility] [place] [address] [facility] [id number] [address] [place] [phone] May, Type 1 diabetes mellitus wit h other specified complication E10.69 ; Depression, unspecified depression type F32.9 ; Anemia, unspecified type D64.9 ; Diabetic peripheral neuropathy E11.42 ; Gastric peptic ulcer, acute K25.3 ; Primary insomnia F51.01 and Pneumonia J18.9 [facility] [place] [address] [facility] [id number] [address] [place] [phone] May, [facility] [place] [address] [facility] [id number] [address] [place] [phone] May, IMMUNIZATIONS No Known Immunizations SOCIAL HISTORY Never Assessed REASON FOR VISIT Controlled Med Refill PLAN OF CARE VITAL SIGNS MEDICATIONS Medication Instructions Dosage Frequency Start Date End Date Duration S tatus Lyrica 75 MG Orally Three times a day 1 capsule 8h 30 days Active RESULTS No Results PROCEDURES No Known procedures INSTRUCTIONS MEDICATIONS ADMINISTERED No Known Medications MEDICAL (GENERAL) HISTORY Type Description Date Medical History Diabetes Type I Medical History Dialysis-Stage 5 kidney failure Medical History Bilateral Foot Drop Medical History Depression Medical History Obesity Surgical History right knee meniscus repair Surgical History hernia repair Surgical History cholecystectomy Surgical History tonsillectomy Surgical History dialysis fistula placement 03/2017 Surgical History left eye surgery 08/09/2017 Surgical History Staph infection removal in the left foot Hospitalization History surgeries Hospitalization History DKA 02/23/15 Hospitalization History Dyspnea, Acute Exacerbation CHF, Chronic Renal Failure--[facility] 11/23/15 Hospitalization History Peritonitis 12/2016
--- OUTSIDE RECORDS SUMMARY | 2019-09-28 08:55 | XMS REPORT | Encounter Summary ---
Author Author [facility] Organization [facility] Address Unknown Phone Unavailable Care Team Providers Care Engineering Executive Name Role Phone Dania Barksdale MD PCP Reason for Visit * Reason Comments Financial/Insurance BENEFIT COLLECTION Questions Encounter Details Care Team Description Date Type Department Devi Payne Financial/Insurance Questions (BENEFIT C OLLECTION) 03/30/[address] [address] Social History Date Tobacco Use Types Packs/Day Years Used Quit: 12/17/2001 Former Smoker 2 30 Drinks/Week oz/Week Comments Alcohol Use quit 15 years ago Yes Sex Assigned at Date Recorded Male Industry Job Start Date Occupation Not on file Not on file Not on file Travel End Travel History Travel Start No recent travel history available. documented as of this encounter Functional Status Date of Assessment Functional Status Response 12/17/2016 Does the patient have a hearing impairment: No 12/17/2016 Does the patient have a visual impairment: Yes 12/17/2016 Does the patient have impaired ambulation: Yes 12/17/2016 Does the patient have an activity of daily living No (ADL) impairment: 12/17/2016 Does the patient have an instrumental activity of No daily living (IADL) impairment: Date of Assessment Cognitive Status Response 12/17/2016 Does the patient have a cognitive impairment: No documented as of this encounter Miscellaneous Notes * Telephone Encounter - Devi Payne - 03/30/2019 10:37 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 PART A/ SNF BENEFITS: IN 2018: DAYS 1-20 PT PORTION $0; DAYS 21-100 $170.50/DAY COPAY; DAYS > 100 PT PORTION 100% PART B IN 2018: DEDUCTIBLE $185 WITH 80% REIMBURSEMENT OF ALLOWABLE, NO OUT OF POCKET MAXIMUM MEDICARE WILL PAY FOR DRUGS INFUSED THROUGH AN ITEM OF DME, LIKE AN INFUSION PUM P, OR DRUGS GIVEN BY A NEBULIZER WHEN GIVEN BY A LICENSED MEDICAL PROVIDER. PART B WILL COVER IMMUNOSUPPRESSIVE DRUGS IF COVERED THE TRANSPLANT, EVEN SECONDARY PAYER No Case Management, No transplant Network, No prior authorizations, No benefit l imits Part D RX Plan: [email or web address] Basic Rx Plan Phone #: [phone] 30 day retail cost/ 90 day m/o cost: $3.40 - $8.50 Valcyte:not covered Generic: $3.40 RX Ded: $0.0 RX Monthly Carlos: $0.0 Current Subsidy: FULL EXTRA HELP SECONDARY D #:[id number] GR#: [id number] Subscriber: self Ins Plan: [employer] [place] EFF: 08/07/16 Plan Type: MEDICARE SUPPLEMENT PLAN F COVERS PT [facility] CO[facility] UP TO AN ADDITIONAL 365 DAYS AFTER MEDICARE B ENEFITS ARE USED UP, MEDICARE PART B COINSURANCE OR COPAYMENT, FIRST 3 PINTS OF BLOOD PART A HOSPICE CARE COINSURANCE OR COPAYMENT [facility]IV[facility] FACILITY COINSURANCE PART A DEDUCTIBLE PART B DEDUCTIBLE MEDICARE PREVENTIVE CARE PART B COINSURANCE PART B EXCESS [facility], FOREIGN TRAVEL EMERGENCY UP TO PLAN LIMITS MEDICARE PREVENTIVE CARE PART B COINSURANCE TERTIARY ID #: [id number] Subscriber: self Ins Plan: [employer] Plan Type: [place] Medicaid NO SPEND DOWN REPORTED OF 03/30/19 $48 INPT ADMIT COPAY FDC/CORRECTION CARE [phone] OUTPT HOSPITAL $3/VISIT SURGICENTER $3/DOS OUTPT REHAB $1/VISIT DME $3/CLAIM HHC $3/VISIT NON-EMERGENCY TRANSPORT OR AMBULANCE $3/DOS OV $2/COPAY MENTAL HEALTH CALL [facility] [phone], $3/VISIT DENTAL $3/DOS RX $3/FILL (NO MAIL ORDER) If 2ndry to Medicare: PAYS [place] FOR IMMUNOS AFTER PART B IS IT COVERED? CALL [phone] Auth requirements: No eval or listing auth required secondary to medicare BACKING STENCILER documented in this encounter Plan of Treatment Care Team Description Date Type Specialty Berta Harrison MD [address] [place] [address] Doroteo Enamorado MD [address] [place] [address] 10/02/2019 Hospital Radiology Encounter documented as of this encounter Goals Goal Patient Associated Recent Progress Patient-Stat Aut hor Goal Type Problems ed? Recover from illness Hospital Rajani Ac, RN documented as of this encounter Visit Diagnoses Not on filedocumented in this encounter
--- OUTSIDE RECORDS SUMMARY | 2019-09-28 08:55 | XMS REPORT ---
Author Author Stef HARRELL Organization [facility] Address [address] [place] [address] Care Team Providers Care Practicing Dermatologist Name Role Phone SARI HARRELL Unavailable PROBLEMS Type Condition ICD9-CM Code AUO08-GU Code Onset Dates Condition S tatus SNOMED Code Problem Diabetic peripheral neuropathy E11.42 Active 219361887 Problem Type 1 diabetes mellitus with other specified complication E10.69 Active 99143005 Problem Primary insomnia F51.01 Active 397 2004 Problem Depression, unspecified depression type F32.9 Active 29469363 Problem Anemia, unspecified type D64.9 Activ e 058438140 Problem Falls frequently R29.6 Active 279 219225 Problem Bilateral hearing loss, unspecified hearing loss type H91.93 Active 01619208 Problem Other chronic pain G89.29 Active 8 7947214 Problem End stage renal disease N18.6 Active 74041358 Problem Major depression, chronic F34.1 Acti ve 071031321 Problem Chronic GERD K21.9 Active 2129356 09 ALLERGIES No Information ENCOUNTERS Encounter Location Date Diagnosis [facility] [address] [id number] [address] [place] [address] Jun, [facility] [address] [facility] [id number] [address] [place] [address] Apr, [facility] [address] [facility] [id number] [address] [place] [address] Mar, Diabetic peripheral neuropat hy E11.42 [facility] [address] [facility] [id number] [address] [place] [address] Feb, [facility] [address] [id number] [address] [place] [address] Jan, [facility] [address] [facility] [id number] [address] [place] [address] Dec, Primary insomnia F51.01 [facility] [address] [facility] [id number] [address] [place] [phone] Dec, [facility] [address] [facility] [id number] [address] [place] [address] Nov, [facility] [address] [facility] [id number] [address] [place] [address] Nov, Diabetic peripheral neuropat hy E11.42 [facility] [address] [facility] [id number] [address] [place] [address] Oct, Type 1 diabetes mellitus wit h other specified complication E10.69 ; Diabetic peripheral neuropathy E11.42 and End stage renal disease N18.6 [facility] [address] [facility] [id number] [address] [place] [address] Oct, [facility] [address] [facility] [id number] [address] [place] [address] September, [facility] [address] [facility] [id number] [address] [place] [address] Aug, Effusion of right elbow M25. 421 [address] [id number] [address] [place] [address] Aug, Diabetic peripheral neuropat hy E11.42 [facility] [address] [facility] [id number] [address] [place] [address] Jul, [facility] [address] [facility] [id number] [address] [place] [address] Jul, Medicare annual wellness vis it, initial Z00.00 ; Diabetic peripheral neuropathy E11.42 ; End stage renal disease N18.6 ; Type 1 diabetes mellitus with other specified complication E10.69 ; Anemia, unspecified type D64.9 ; Falls frequently R29.6 ; Chronic GERD K21.9 ; Major depression, chronic F34.1 and Bilateral hearing loss, unspecified hearing loss type H91.93 [facility] [address] [facility] [id number] [address] [place] [address] Jun, [facility] [address] [facility] [id number] [address] [place] [address] Jun, Low back pain M54.5 and Prim linwood insomnia F51.01 [facility] [address] [facility] [id number] [address] [place] [address] May, Diabetic peripheral neuropat hy E11.42 [facility] [address] [id number] [address] [place] [address] May, [facility] [address] [facility] [id number] [address] [place] [address] May, [facility] [address] [id number] [address] [place] [address] May, [facility] [address] [facility] [id number] [address] [place] [address] May, Diabetic peripheral neuropat hy E11.42 ; Type 1 diabetes mellitus with other specified complication E10.69 ; Primary insomnia F51.01 ; Depression, unspecified depression type F32.9 ; End stage renal disease N18.6 ; Left foot drop M21.372 and Foot drop, right foot M21.371 [place] [address] [id number] [address] [place] [address] Apr, [facility] [address] [id number] [address] [place] [address] Apr, [facility] [address] [id number] [address] [place] [address] Mar, Foot drop, left M21.372 and Foot drop, right M21.371 [facility] [address] [id number] [address] [place] [address] Mar, [facility] [address] [id number] [address] [place] [address] Feb, Type 1 diabetes mellitus wit h other specified complication E10.69 and Olecranon bursitis, unspecified laterality M70.20 [facility] [address] [id number] [address] [place] [address] Feb, [facility] [address] [id number] [address] [place] [address] Feb, Diabetic peripheral neuropat hy E11.42 [facility] [address] [id number] [address] [place] [address] Jan, Type 1 diabetes mellitus wit h other specified complication E10.69 [facility] [address] [id number] [address] [place] [address] Dec, Type 1 diabetes mellitus wit h other specified complication E10.69 ; Primary insomnia F51.01 ; End stage renal disease N18.6 and Chronic GERD K21.9 [facility] [address] [id number] [address] [place] [address] Dec, [facility] [address] [id number] [address] [place] [address] Nov, [facility] [address] [id number] [address] [place] [address] Oct, Diabetic peripheral neuropat hy E11.42 [facility] [address] [id number] [address] [place] [address] Oct, [facility] [address] [id number] [address] [place] [address] September, Type 1 diabetes mellitus wit h other specified complication E10.69 [facility] [address] [id number] [address] [place] [address] September, Diabetic peripheral neuropat hy E11.42 [facility] [address] [id number] [address] [place] [address] September, Diabetic peripheral neuropat hy E11.42 ; Type 1 diabetes mellitus with other specified complication E10.69 and End stage renal disease N18.6 [facility] [address] [id number] [address] [place] [address] September, [facility] [address] [id number] [address] [place] [address] September, [facility] [address] [id number] [address] [place] [address] Aug, [facility] [address] [facility] [id number] [address] [place] [address] Aug, Low back pain, unspecified b ack pain laterality, unspecified chronicity, with sciatica presence unspecified M54.5 [facility] [address] [id number] [address] [place] [address] Aug, [facility] [address] [id number] [address] [place] [address] Jul, [facility] [address] [facility] [id number] [address] [place] [address] Jul, Low back pain M54.5 ; Other chronic pain G89.29 ; Type 1 diabetes mellitus with other specified complication E10.69 ; Diabetic peripheral neuropathy E11.42 ; Left foot drop M21.372 and Foot drop, right foot M21.371 [facility] [address] [facility] [id number] [address] [place] [address] Jul, [facility] [address] [facility] [id number] [address] [place] [address] Jul, [facility] [address] [facility] [id number] [address] [place] [address] Jun, Low back pain, unspecified b ack pain laterality, unspecified chronicity, with sciatica presence unspecified M54.5 [facility] [address] [id number] [address] [place] [address] Jun, [facility] [address] [id number] [address] [place] [address] Jun, [facility] [address] [id number] [address] [place] [address] Jun, [facility] [address] [facility] [id number] [address] [place] [address] May, Type 1 diabetes mellitus wit h other specified complication E10.69 ; Diabetic peripheral neuropathy E11.42 and End stage renal disease N18.6 [facility] [address] [id number] [address] [place] [address] Apr, Bronchitis J40 [facility] [address] [id number] [address] [place] [address] Apr, Other bursal cyst, left elbo w M71.322 [facility] [address] [id number] [address] [place] [address] Apr, [facility] [address] [id number] [address] [place] [address] Apr, Other bursal cyst, left elbo w M71.322 [facility] [address] [facility] [id number] [address] [place] [address] Mar, [facility] [address] [facility] [id number] [address] [place] [address] Mar, Rib pain R07.81 and Type 1 d iabetes mellitus with other specified complication E10.69 [facility] [address] [id number] [address] [place] [address] Feb, [facility] [address] [id number] [address] [place] [address] Feb, [facility] [address] [facility] [id number] [address] [place] [address] Dec, [facility] [address] [id number] [address] [place] [address] Dec, [facility] [address] [facility] [id number] [address] [place] [address] Nov, Type 1 diabetes mellitus wit h other specified complication E10.69 and End stage renal disease N18.6 [facility] [address] [id number] [address] [place] [address] Nov, [facility] [address] [id number] [address] [place] [address] Nov, [facility] [address] [id number] [address] [place] [address] Nov, [facility] [address] [id number] [address] [place] [address] Nov, [facility] [address] [id number] [address] [place] [address] Nov, [facility] [address] [id number] [address] [place] [address] Oct, [facility] [address] [id number] [address] [place] [address] Oct, [facility] [address] [id number] [address] [place] [address] September, [facility] [address] [id number] [address] [place] [address] September, Type 1 diabetes mellitus wit h other specified complication E10.69 [facility] [address] [id number] [address] [place] [address] September, [facility] [address] [id number] [address] [place] [address] September, Diabetic peripheral neuropat hy E11.42 ; Type 1 diabetes mellitus with other specified complication E10.69 ; Chronic kidney disease, stage 3 (moderate) N18.3 and Incomplete tear of left rotator cuff M75.112 [facility] [address] [id number] [address] [place] [address] September, [facility] [address] [id number] [address] [place] [address] Aug, [facility] [address] [id number] [address] [place] [address] Aug, [facility] [address] [id number] [address] [place] [address] Aug, Other chronic pain G89.29 an d Pain in left shoulder M25.512 [facility] [address] [id number] [address] [place] [address] Aug, Physical deconditioning R53. 81 ; Pain in right shoulder M25.511 and Other chronic pain G89.29 [facility] [address] [id number] [address] [place] [address] Aug, [facility] [address] [id number] [address] [place] [address] Jul, Type 1 diabetes mellitus wit h other specified complication E10.69 ; Diabetic peripheral neuropathy E11.42 and Physical deconditioning R53.81 [facility] [address] [id number] [address] [place] [address] Jul, [facility] [address] [id number] [address] [place] [address] Jul, [facility] [address] [id number] [address] [place] [address] Jun, [facility] [address] [id number] [address] [place] [address] Jun, Type 1 diabetes mellitus wit h other specified complication E10.69 ; Insomnia G47.00 and Diabetic peripheral neuropathy E11.42 [facility] [address] [id number] [address] [place] [address] Jun, [facility] [address] [id number] [address] [place] [address] Jun, Physical deconditioning R53. 81 [facility] [address] [id number] [address] [place] [address] Jun, [facility] [address] [id number] [address] [place] [address] May, [facility] [address] [id number] [address] [place] [address] May, [facility] [address] [id number] [address] [place] [address] May, [facility] [address] [id number] [address] [place] [address] May, [facility] [address] [id number] [address] [place] [address] May, [place] [address] [id number] [address] [place] [address] May, Adjustment disorder with dep ressed mood F43.21 [place] [address] [id number] [address] [place] [address] May, Type 1 diabetes mellitus wit h other specified complication E10.69 ; Anemia, unspecified type D64.9 ; Gastric peptic ulcer, acute K25.3 and Physical deconditioning R53.81 [place] [address] [id number] [address] [place] [address] May, [place] [address] [id number] [address] [place] [address] May, Type 1 diabetes mellitus wit h other specified complication E10.69 [place] [address] [address] May, [place] [address] [id number] [address] [place] [address] May, [place] [id number] [place] [address] May, [place] [address] [id number] [address] [place] [address] May, [place] [address] [address] May, Type 1 diabetes mellitus wit h other specified complication E10.69 ; Depression, unspecified depression type F32.9 ; Anemia, unspecified type D64.9 ; Diabetic peripheral neuropathy E11.42 ; Gastric peptic ulcer, acute K25.3 ; Primary insomnia F51.01 and Pneumonia J18.9 [facility] [address] [facility] [id number] [address] [place] [address] May, [facility] [address] [facility] [id number] [address] [place] [address] May, IMMUNIZATIONS No Known Immunizations SOCIAL HISTORY Never Assessed REASON FOR VISIT requesting order PLAN OF CARE VITAL SIGNS MEDICATIONS Unknown Medications RESULTS No Results PROCEDURES No Known procedures [...]
--- OUTSIDE RECORDS SUMMARY | 2019-09-28 08:55 | XMS REPORT | Encounter Summary ---
Author Author [facility] Organization [facility] Address Unknown Phone Unavailable Care Team Providers Care Broomcorn Scraper Name Role Phone Dania Barksdale MD PCP Reason for Referral * Radiology Services (Routine) Referred By Contact Referred To Contact Status Reason Specialty Diagnoses / Procedures Melecio Nielsen MD [address] [address] Closed Radiology Diagnoses Pre-transplant evaluation for end stage renal disease P rocedures CT ABD/PELV WO CONTRAST Encounter Details Care Team Description Date Type Department Tatiana Cortes RN Pre-transplant evaluation for end stage renal disease (Primary Dx) 04/18/2019 Orders Only [facility] [address] [address] Social History Date Tobacco Use Types Packs/Day [...] Date Type Specialty Berta Harrison MD [address] [place] [address] Doroteo Enamorado MD [address] [place] [address] 10/02/2019 [facility] Radiology Encounter Order Schedule Name Type Priority Associated Diag noses Expected: 04/26/2019 (Approximate), Expi res: 04/17/2020 CT ABD/PELV WO CONTRAST Imaging Routine Pre-tr ansplant evaluation for end stage renal disease documented as of this encounter Goals Goal Patient Associated Recent Progress Patient-Stat Aut hor Goal Type Problems ed? Recover from illness [facility] Rajani Ac RN documented as of this encounter Visit Diagnoses Diagnosis Pre-transplant evaluation for end stage renal disease Other specified pre-operative examinati on documented in this encounter
--- OUTSIDE RECORDS SUMMARY | 2019-09-28 08:55 | XMS REPORT ---
Author Author Stef HARRELL Organization [facility] Address [address] [place] [address] Care Team Providers Care Supervisor Customer Complaint Service Name Role Phone SARI HARRELL Unavailable PROBLEMS Type Condition ICD9-CM Code NXF20-DD Code Onset Dates Condition S tatus SNOMED Code Problem Primary insomnia F51.01 Active 397 2004 Problem Type 1 diabetes mellitus with other specified complication E10.69 Active 26894562 Problem End stage renal disease N18.6 Active 60590602 Problem Depression, unspecified depression type F32.9 Active 09360374 Problem Falls frequently R29.6 Active 279 634187 Problem Diabetic peripheral neuropathy E11.42 Active 606006096 Problem Dependence on renal dialysis Z99.2 A ctive 441106244 Problem Anemia, unspecified type D64.9 Activ e 540740518 Problem Other chronic pain G89.29 Active 8 3670710 Problem Chronic GERD K21.9 Active 8613329 09 Problem Major depression, chronic F34.1 Acti ve 983948485 Problem Bilateral hearing loss, unspecified hearing loss type H91.93 Active [id number] ALLERGIES No Information ENCOUNTERS Encounter Location Date Diagnosis [facility] [address] [facility] [id number] [address] [place] [phone] Oct, [facility] [address] [facility] [id number] [address] [place] [address] Oct, Diabetic peripheral neuropat hy E11.42 [facility] [address] [facility] [id number] [address] [place] [phone] September, Encounter for comprehensive diabetic foot examination, type [address] [facility] [address] [facility] [id number] [address] [place] [address] Aug, Encounter for Medicare annua l wellness exam Z00.00 ; Falls frequently R29.6 ; End stage renal disease N18.6 ; Type 1 diabetes mellitus with other specified complication E10.69 ; Diabetic peripheral neuropathy E11.42 ; Other chronic pain G89.29 ; Bilateral hearing loss, unspecified hearing loss type H91.93 and Dependence on renal dialysis Z99.2 [facility] [address] [id number] [address] [place] [phone] 15 Aug, 2018 [facility] [address] [id number] [address] [place] [address] Aug, Chronic GERD K21.9 ; Depende nce on renal dialysis Z99.2 and Type 1 diabetes mellitus with other specified complication E10.69 [facility] [address] [id number] [address] [place] [phone] Aug, [facility] [address] [facility] [id number] [address] [place] [address] Jul, Diabetic peripheral neuropat hy E11.42 [facility] [address] [id number] [address] [place] [address] Jul, [facility] [address] [id number] [address] [place] [phone] 08 Jun, 2018 Diabetic peripheral neuropat hy E11.42 [facility] [address] [id number] [address] [place] [phone] Jun, Depression, unspecified depr ession type F32.9 [facility] [address] [id number] [address] [place] [phone] Jun, Depression, unspecified depr ession type F32.9 [facility] [address] [id number] [address] [place] [phone] Jun, Depression, unspecified depr ession type F32.9 [facility] [address] [facility] [id number] [address] [place] [address] Jun, Depression, unspecified depr ession type F32.9 [facility] [address] [facility] [id number] [address] [place] [address] Jun, Type 1 diabetes mellitus wit h other specified complication E10.69 ; Depression, unspecified depression type F32.9 and Other chronic pain G89.29 [facility] [address] [id number] [address] [place] [address] May, Diabetic peripheral neuropat hy E11.42 [facility] [address] [id number] [address] [place] [address] Apr, Diabetic peripheral neuropat hy E11.42 [facility] [address] [id number] [address] [place] [address] Apr, [facility] [address] [id number] [address] [place] [address] Mar, Diabetic peripheral neuropat hy E11.42 [facility] [address] [id number] [address] [place] [address] Feb, [facility] [address] [id number] [address] [place] [address] Jan, [facility] [address] [id number] [address] [place] [address] Dec, Primary insomnia F51.01 [facility] [address] [id number] [address] [place] [address] Dec, [facility] [address] [id number] [address] [place] [address] Nov, [facility] [address] [id number] [address] [place] [address] Nov, Diabetic peripheral neuropat hy E11.42 [facility] [address] [id number] [address] [place] [address] Oct, Type 1 diabetes mellitus wit h other specified complication E10.69 ; Diabetic peripheral neuropathy E11.42 and End stage renal disease N18.6 [facility] [address] [id number] [address] [place] [address] Oct, [facility] [address] [id number] [address] [place] [address] September, [facility] [address] [facility] [id number] [address] [place] [address] Aug, Effusion of right elbow M25. 421 [facility] [address] [facility] [id number] [address] [place] [address] Aug, Diabetic peripheral neuropat hy E11.42 [facility] [address] [facility] [id number] [address] [place] [address] Jul, [facility] [address] [facility] [id number] [address] [place] [address] Jul, Medicare annual wellness vis it, initial Z00.00 ; Diabetic peripheral neuropathy E11.42 ; End stage renal disease N18.6 ; Type 1 diabetes mellitus with other specified complication E10.69 ; Anemia, unspecified type D64.9 ; Falls frequently R29.6 ; Chronic GERD K21.9 ; Major depression, chronic F34.1 and Bilateral hearing loss, unspecified hearing loss type H91.93 [facility] [address] [facility] [id number] [address] [place] [address] Jun, [place] [address] [facility] [id number] [address] [place] [address] Jun, Low back pain M54.5 and Prim linwood insomnia F51.01 [place] [address] [facility] [id number] [address] [place] [address] May, Diabetic peripheral neuropat hy E11.42 [facility] [address] [facility] [id number] [address] [place] [address] May, [facility] [address] [facility] [id number] [address] [place] [address] May, [facility] [address] [facility] [id number] [address] [place] [address] May, [facility] [address] [facility] [id number] [address] [place] [address] May, Diabetic peripheral neuropat hy E11.42 ; Type 1 diabetes mellitus with other specified complication E10.69 ; Primary insomnia F51.01 ; Depression, unspecified depression type F32.9 ; End stage renal disease N18.6 ; Left foot drop M21.372 and Foot drop, right foot M21.371 [facility] [address] [facility] [id number] [address] [place] [address] Apr, [facility] [address] [facility] [id number] [address] [place] [address] Apr, [facility] [address] [facility] [id number] [address] [place] [address] Mar, Foot drop, left M21.372 and Foot drop, right M21.371 [place] [address] [place] [id number] [address] [place] [address] Mar, [place] [address] [place] [id number] [address] [place] [address] Feb, Type 1 diabetes mellitus wit h other specified complication E10.69 and Olecranon bursitis, unspecified laterality M70.20 [place] [address] [place] [id number] [address] [place] [address] Feb, [place] [address] [place] [id number] [address] [place] [address] Feb, Diabetic peripheral neuropat hy E11.42 [place] [address] [facility] [id number] [address] [place] [address] Jan, Type 1 diabetes mellitus wit h other specified complication E10.69 [facility] [address] [facility] [id number] [address] [place] [address] Dec, Type 1 diabetes mellitus wit h other specified complication E10.69 ; Primary insomnia F51.01 ; End stage renal disease N18.6 and Chronic GERD K21.9 [facility] [address] [facility] [id number] [address] [place] [address] Dec, [facility] [address] [place] [id number] [address] [place] [address] Nov, [facility] [address] [id number] [address] [place] [phone] Oct, Diabetic peripheral neuropat hy E11.42 [facility] [address] [id number] [address] [place] [address] Oct, [facility] [address] [id number] [address] [place] [address] September, Type 1 diabetes mellitus wit h other specified complication E10.69 [facility] [address] [id number] [address] [place] [address] September, Diabetic peripheral neuropat hy E11.42 [facility] [address] [id number] [address] [place] [address] September, Diabetic peripheral neuropat hy E11.42 ; Type 1 diabetes mellitus with other specified complication E10.69 and End stage renal disease N18.6 [facility] [address] [id number] [address] [place] [address] September, [facility] [address] [id number] [address] [place] [address] September, [facility] [address] [id number] [address] [place] [phone] Aug, [facility] [address] [id number] [address] [place] [address] Aug, Low back pain, unspecified b ack pain laterality, unspecified chronicity, with sciatica presence unspecified M54.5 [facility] [address] [id number] [address] [place] [address] Aug, [facility] [address] [id number] [address] [place] [address] Jul, [facility] [address] [id number] [address] [place] [address] Jul, Low back pain M54.5 ; Other chronic pain G89.29 ; Type 1 diabetes mellitus with other specified complication E10.69 ; Diabetic peripheral neuropathy E11.42 ; Left foot drop M21.372 and Foot drop, right foot M21.371 [facility] [address] [facility] [id number] [address] [place] [address] Jul, [facility] [address] [facility] [id number] [address] [place] [address] Jul, [facility] [address] [facility] [id number] [address] [place] [phone] Jun, Low back pain, unspecified b ack pain laterality, unspecified chronicity, with sciatica presence unspecified M54.5 [facility] [address] [place] [id number] [address] [place] [address] Jun, [facility] [address] [place] [id number] [address] [place] [address] Jun, [facility] [address] [place] [id number] [address] [place] [address] Jun, [facility] [address] [place] [id number] [address] [place] [address] May, Type 1 diabetes mellitus wit h other specified complication E10.69 ; Diabetic peripheral neuropathy E11.42 and End stage renal disease N18.6 [facility] [address] [place] [id number] [address] [place] [address] Apr, Bronchitis J40 [facility] [address] [place] [id number] [address] [place] [address] Apr, Other bursal cyst, left elbo w M71.322 [facility] [address] [place] [id number] [address] [place] [address] Apr, [facility] [address] [place] [id number] [address] [place] [address] Apr, Other bursal cyst, left elbo w M71.322 [facility] [address] [place] [id number] [address] [place] [address] Mar, [facility] [address] [id number] [address] [place] [address] Mar, Rib pain R07.81 and Type 1 d iabetes mellitus with other specified complication E10.69 [facility] [address] [id number] [address] [place] [address] Feb, [facility] [address] [id number] [address] [place] [phone] Feb, [facility] [address] [id number] [address] [place] [address] Dec, [facility] [address] [id number] [address] [place] [address] Dec, [facility] [address] [id number] [address] [place] [address] Nov, Type 1 diabetes mellitus wit h other specified complication E10.69 and End stage renal disease N18.6 [facility] [address] [id number] [address] [place] [address] Nov, [facility] [address] [id number] [address] [place] [address] Nov, [facility] [address] [id number] [address] [place] [address] Nov, [facility] [address] [id number] [address] [place] [address] Nov, [facility] [address] [id number] [address] [place] [address] Nov, [facility] [address] [id number] [address] [place] [address] Oct, [facility] [address] [id number] [address] [place] [address] Oct, [facility] [address] [id number] [address] [place] [address] September, [facility] [address] [id number] [address] [place] [address] September, Type 1 diabetes mellitus wit h other specified complication E10.69 [facility] [address] [id number] [address] [place] [address] September, [facility] [address] [id number] [address] [place] [address] September, Diabetic peripheral neuropat hy E11.42 ; Type 1 diabetes mellitus with other specified complication E10.69 ; Chronic kidney disease, stage 3 (moderate) N18.3 and Incomplete tear of left rotator cuff M75.112 [place] [address] [id number] [address] [place] [address] September, [place] [address] [id number] [address] [place] [address] Aug, [place] [address] [id number] [address] [place] [address] Aug, [place] [address] [id number] [address] [place] [address] Aug, Other chronic pain G89.29 an d Pain in left shoulder M25.512 [place] [address] [id number] [address] [place] [address] Aug, Physical deconditioning R53. 81 ; Pain in right shoulder M25.511 and Other chronic pain G89.29 [place] [address] [id number] [address] [place] [address] Aug, [place] [address] [id number] [address] [place] [address] Jul, Type 1 diabetes mellitus wit h other specified complication E10.69 ; Diabetic peripheral neuropathy E11.42 and Physical deconditioning R53.81 [facility] [address] [id number] [address] [place] [address] Jul, [place] [address] [facility] [id number] [address] [place] [address] Jul, [facility] [address] [address] Jun, [facility] [address] [address] Jun, Type 1 diabetes mellitus wit h other specified complication E10.69 ; Insomnia G47.00 and Diabetic peripheral neuropathy E11.42 [facility] [address] [address] Jun, [facility] [address] [address] Jun, Physical deconditioning R53. 81 [place] [address] [address] Jun, [facility] [address] [address] May, [facility] [address] [address] May, [facility] [address] [address] May, [facility] [address] [address] May, [facility] [address] [address] May, [facility] [address] [address] May, Adjustment disorder with dep ressed mood F43.21 [facility] [address] [address] May, Type 1 diabetes mellitus wit h other specified complication E10.69 ; Anemia, unspecified type D64.9 ; Gastric peptic ulcer, acute K25.3 and Physical deconditioning R53.81 [facility] [address] [address] May, [facility] [address] [facility] [id number] [address] [place] [address] May, Type 1 diabetes mellitus wit h other specified complication E10.69 [facility] [address] [id number] [address] [place] [address] May, [facility] [address] [facility] [id number] [address] [place] [address] May, [facility] [address] [facility] [id number] [address] [place] [address] May, [facility] [address] [facility] [id number] [address] [place] [address] May, [facility] [address] [facility] [id number] [address] [place] [address] May, Type 1 diabetes mellitus wit h other specified complication E10.69 ; Depression, unspecified depression type F32.9 ; Anemia, unspecified type D64.9 ; Diabetic peripheral neuropathy E11.42 ; Gastric peptic ulcer, acute K25.3 ; Primary insomnia F51.[address] [facility] [address] [facility] [id number] [address] [place] [address] May, [facility] [address] [facility] [id number] [address] [place] [phone] May, IMMUNIZATIONS No Known Immunizations SOCIAL HISTORY Never Assessed REASON FOR VISIT Medication refill request PLAN OF CARE VITAL SIGNS MEDICATIONS Medication [...] toe amputation Surgical History right knee meniscus repair Surgical History hernia repair Surgical History cholecystectomy Surgical History tonsillectomy Surgical History dialysis fistula placement 03/2017 Surgical History left eye surgery 08/09/2017 Surgical History Staph infection removal in the left foot Surgical History left foot surgery/bone removal 10/2017 Surgical History left big toe amputation 03/2018 Hospitalization History surgeries Hospitalization History DKA 02/23/15 Hospitalization History Dyspnea, Acute Exacerbation CHF, Chronic Renal Failure--[facility] 11/23/15 Hospitalization History Peritonitis 12/2016 Hospitalization History Pneumonia/sepsis 07/2018
--- OUTSIDE RECORDS SUMMARY | 2019-09-28 08:55 | XMS REPORT | Encounter Summary ---
Author Author [facility] Organization [facility] Address Unknown Phone Unavailable Care Team Providers Care Mold Presser Name Role Phone Dania Barksdale MD PCP Reason for Visit * Reason Comments Transplant Referral Schedule New K Eval Encounter Details Care Team Description Date Type Department Brea Smiley Transplant Referral (Schedule New K Eval ) 04/02/2019 Telephone [facility] [address] [address] Social History Date Tobacco Use [...] Date Type Specialty Berta Harrison MD [address] [place] [address] Doroteo Enamorado MD [address] [place] [address] [phone] 10/02/2019 Hospital Radiology Encounter documented as of this encounter Goals Goal Patient Associated Recent Progress Patient-Stat Aut hor Goal Type Problems ed? Recover from illness Hospital No Rajani Gallego RN documented as of this encounter Visit Diagnoses Not on filedocumented in this encounter
--- OUTSIDE RECORDS SUMMARY | 2019-09-28 08:55 | XMS REPORT | Encounter Summary ---
Author Author [facility] Organization [facility] Address Unknown Phone Unavailable Care Team Providers Care Credit Adjuster Name Role Phone Dania Barksdale MD PCP Reason for Visit * Reason Comments Transplant Referral Reschedule to Earlier Appt. Date Encounter Details Care Team Description Date Type Department Brea Smiley Transplant Referral (Reschedule to To cuevas Appt. Date) 04/18/2019 Telephone [facility] [address] [address] Social History Date Tobacco [...] Date Type Specialty Berta Harrison MD [address] [place] [address] [phone] Doroteo Enamorado MD [address] [place] [address] [phone] 10/02/2019 Hospital Radiology Encounter documented as of this encounter Goals Goal Patient Associated Recent Progress Patient-Stat Aut hor Goal Type Problems ed? Recover from illness [facility] No Rajani Gallego RN documented as of this encounter Visit Diagnoses Not on filedocumented in this encounter
--- OUTSIDE RECORDS SUMMARY | 2019-09-28 08:56 | XMS REPORT ---
Author Author Stef HARRELL Organization [facility] Address [address] [place] [address] Care Team Providers Care Gun Numberer Name Role Phone SARI HARRELL Unavailable PROBLEMS Type Condition ICD9-CM Code KFW01-VX Code Onset Dates Condition S tatus SNOMED Code Problem Diabetic peripheral neuropathy E11.42 Active 197808042 Problem Type 1 diabetes mellitus with other specified complication E10.69 Active 77569909 Problem Primary insomnia F51.01 Active 397 2004 Problem Depression, unspecified depression type F32.9 Active 23358311 Problem Anemia, unspecified type D64.9 Activ e 635602398 Problem Falls frequently R29.6 Active 279 102027 Problem Bilateral hearing loss, unspecified hearing loss type H91.93 Active 95765926 Problem Other chronic pain G89.29 Active 8 9685774 Problem End stage renal disease N18.6 Active 84756184 Problem Major depression, chronic F34.1 Acti ve 785877516 Problem Chronic GERD K21.9 Active 9329368 09 ALLERGIES No Information ENCOUNTERS Encounter Location Date Diagnosis [facility] [address] [facility] [id number] [address] [place] [phone] Feb, [facility] [address] [facility] [id number] [address] [place] [phone] Jan, [facility] [address] [facility] [id number] [address] [place] [phone] Dec, Primary insomnia F51.01 [facility] [address] [facility] [id number] [address] [place] [phone] Dec, [facility] [address] [facility] [id number] [address] [place] [phone] Nov, [facility] [address] [facility] [id number] [address] [place] [phone] Nov, Diabetic peripheral neuropat hy E11.42 [facility] [address] [facility] [id number] [address] [place] [phone] Oct, Type 1 diabetes mellitus wit h other specified complication E10.69 ; Diabetic peripheral neuropathy E11.42 and End stage renal disease N18.6 [facility] [address] [id number] [address] [place] [phone] Oct, [facility] [address] [id number] [address] [place] [phone] September, [facility] [address] [id number] [address] [place] [phone] Aug, Effusion of right elbow M25. 421 [facility] [address] [facility] [id number] [address] [place] [phone] Aug, Diabetic peripheral neuropat hy E11.42 [place] [address] [facility] [id number] [address] [place] [phone] Jul, [facility] [address] [facility] [id number] [address] [place] [phone] Jul, Medicare annual wellness vis it, initial Z00.00 ; Diabetic peripheral neuropathy E11.42 ; End stage renal disease N18.6 ; Type 1 diabetes mellitus with other specified complication E10.69 ; Anemia, unspecified type D64.9 ; Falls frequently R29.6 ; Chronic GERD K21.9 ; Major depression, chronic F34.1 and Bilateral hearing loss, unspecified hearing loss type H91.93 [facility] [address] [facility] [id number] [address] [place] [phone] Jun, [facility] [address] [facility] [id number] [address] [place] [phone] Jun, Low back pain M54.5 and Prim linwood insomnia F51.01 [facility] [address] [id number] [address] [place] [phone] May, Diabetic peripheral neuropat hy E11.42 [facility] [address] [id number] [address] [place] [phone] May, [facility] [address] [facility] [id number] [address] [place] [phone] May, [facility] [address] [facility] [id number] [address] [place] [phone] May, [facility] [address] [facility] [id number] [address] [place] [phone] May, Diabetic peripheral neuropat hy E11.42 ; Type 1 diabetes mellitus with other specified complication E10.69 ; Primary insomnia F51.01 ; Depression, unspecified depression type F32.9 ; End stage renal disease N18.6 ; Left foot drop M21.372 and Foot drop, right foot M21.371 [facility] [address] [place] [id number] [address] [place] [phone] Apr, [facility] [address] [place] [id number] [place] [phone] Apr, [facility] [address] [facility] [id number] [address] [place] [phone] Mar, Foot drop, left M21.372 and Foot drop, right M21.371 [facility] [address] [place] [id number] [address] [place] [phone] Mar, [facility] [address] [place] [id number] [address] [place] [phone] Feb, Type 1 diabetes mellitus wit h other specified complication E10.69 and Olecranon bursitis, unspecified laterality M70.20 [facility] [address] [facility] [id number] [address] [place] [phone] Feb, [facility] [address] [place] [id number] [address] [place] [phone] Feb, Diabetic peripheral neuropat hy E11.42 [facility] [address] [facility] [id number] [address] [place] [phone] Jan, Type 1 diabetes mellitus wit h other specified complication E10.69 [facility] [address] [id number] [address] [place] [phone] 17 Dec, 2016 Type 1 diabetes mellitus wit h other specified complication E10.69 ; Primary insomnia F51.01 ; End stage renal disease N18.6 and Chronic GERD K21.9 [facility] [address] [id number] [address] [place] [phone] Dec, [facility] [address] [id number] [address] [place] [phone] Nov, [facility] [address] [id number] [address] [place] [phone] Oct, Diabetic peripheral neuropat hy E11.42 [facility] [address] [id number] [address] [place] [phone] Oct, [facility] [address] [id number] [address] [place] [phone] September, Type 1 diabetes mellitus wit h other specified complication E10.69 [facility] [address] [id number] [address] [place] [phone] September, Diabetic peripheral neuropat hy E11.42 [facility] [address] [id number] [address] [place] [phone] September, Diabetic peripheral neuropat hy E11.42 ; Type 1 diabetes mellitus with other specified complication E10.69 and End stage renal disease N18.6 [facility] [address] [id number] [address] [place] [phone] September, [facility] [address] [id number] [address] [place] [phone] September, [facility] [address] [id number] [address] [place] [phone] Aug, [facility] [address] [id number] [address] [place] [phone] Aug, Low back pain, unspecified b ack pain laterality, unspecified chronicity, with sciatica presence unspecified M54.5 [facility] [address] [id number] [address] [place] [phone] Aug, [facility] [address] [id number] [address] [place] [phone] Jul, [facility] [address] [id number] [address] [place] [id number] Jul, Low back pain M54.5 ; Other chronic pain G89.29 ; Type 1 diabetes mellitus with other specified complication E10.69 ; Diabetic peripheral neuropathy E11.42 ; Left foot drop M21.372 and Foot drop, right foot M21.371 [facility] [address] [id number] [address] [place] [phone] Jul, [facility] [address] [facility] [id number] [address] [place] [phone] Jul, [facility] [address] [facility] [id number] [address] [place] [phone] Jun, Low back pain, unspecified b ack pain laterality, unspecified chronicity, with sciatica presence unspecified M54.5 [facility] [address] [id number] [address] [place] [phone] Jun, [facility] [address] [id number] [address] [place] [phone] Jun, [facility] [address] [facility] [id number] [address] [place] [phone] Jun, [facility] [address] [facility] [id number] [address] [place] [phone] May, Type 1 diabetes mellitus wit h other specified complication E10.69 ; Diabetic peripheral neuropathy E11.42 and End stage renal disease N18.6 [facility] [address] [id number] [address] [place] [phone] Apr, Bronchitis J40 [facility] [address] [facility] [id number] [address] [place] [phone] Apr, Other bursal cyst, left elbo w M71.322 [facility] [address] [id number] [address] [place] [phone] Apr, [facility] [address] [id number] [address] [place] [phone] Apr, Other bursal cyst, left elbo w M71.322 [facility] [address] [id number] [address] [place] [phone] Mar, [facility] [address] [id number] [address] [place] [phone] Mar, Rib pain R07.81 and Type 1 d iabetes mellitus with other specified complication E10.69 [facility] [address] [id number] [address] [place] [phone] Feb, [facility] [address] [id number] [address] [place] [phone] Feb, [facility] [address] [id number] [address] [place] [phone] Dec, [facility] [address] [id number] [address] [place] [phone] Dec, [facility] [address] [id number] [address] [place] [phone] Nov, Type 1 diabetes mellitus wit h other specified complication E10.69 and End stage renal disease N18.6 [facility] [address] [id number] [address] [place] [phone] Nov, [facility] [address] [id number] [address] [place] [phone] Nov, [facility] [address] [id number] [address] [place] [phone] Nov, [facility] [address] [id number] [address] [place] [phone] Nov, [facility] [address] [id number] [address] [place] [phone] Nov, [facility] [address] [id number] [address] [place] [phone] Oct, [facility] [address] [id number] [address] [place] [phone] Oct, [facility] [address] [id number] [address] [place] [phone] September, [facility] [address] [facility] [id number] [address] [place] [phone] September, Type 1 diabetes mellitus wit h other specified complication E10.69 [facility] [address] [id number] [address] [place] [phone] September, [facility] [address] [facility] [id number] [address] [place] [phone] September, Diabetic peripheral neuropat hy E11.42 ; Type 1 diabetes mellitus with other specified complication E10.69 ; Chronic kidney disease, stage 3 (moderate) N18.3 and Incomplete tear of left rotator cuff M75.112 [facility] [address] [facility] [id number] [address] [place] [phone] September, [facility] [address] [facility] [id number] [address] [place] [phone] Aug, [facility] [address] [facility] [id number] [address] [place] [phone] Aug, [facility] [address] [facility] [id number] [address] [place] [phone] Aug, Other chronic pain G89.29 an d Pain in left shoulder M25.512 [facility] [address] [facility] [id number] [address] [place] [phone] Aug, Physical deconditioning R53. 81 ; Pain in right shoulder M25.511 and Other chronic pain G89.29 [facility] [address] [facility] [id number] [address] [place] [phone] Aug, [facility] [address] [id number] [address] [place] [phone] 30 Jul, 2015 Type 1 diabetes mellitus wit h other specified complication E10.69 ; Diabetic peripheral neuropathy E11.42 and Physical deconditioning R53.81 [facility] [address] [id number] [address] [place] [phone] Jul, [facility] [address] [id number] [address] [place] [phone] Jul, [facility] [address] [id number] [address] [place] [phone] Jun, [facility] [address] [id number] [address] [place] [phone] Jun, Type 1 diabetes mellitus wit h other specified complication E10.69 ; Insomnia G47.00 and Diabetic peripheral neuropathy E11.42 [facility] [address] [id number] [address] [place] [id number] Jun, [facility] [address] [id number] [address] [place] [phone] Jun, Physical deconditioning R53. 81 [facility] [address] [id number] [address] [place] [phone] 02 Jun, 2015 [facility] [address] [id number] [address] [place] [phone] May, [facility] [address] [id number] [address] [place] [phone] May, [facility] [address] [id number] [address] [place] [id number] May, [facility] [address] [id number] [address] [place] [phone] May, [facility] [address] [id number] [address] [place] [phone] May, [facility] [address] [id number] [address] [place] [phone] May, Adjustment disorder with dep ressed mood F43.21 [place] [address] [place] [id number] [address] [place] [phone] May, Type 1 diabetes mellitus wit h other specified complication E10.69 ; Anemia, unspecified type D64.9 ; Gastric peptic ulcer, acute K25.3 and Physical deconditioning R53.81 [place] [address] [place] [id number] [address] [place] [phone] May, [place] [address] [place] [id number] [address] [place] [phone] May, Type 1 diabetes mellitus wit h other specified complication E10.69 [place] [address] [place] [id number] [address] [place] [phone] May, [place] [id number] [place] [phone] May, [place] [id number] [place] [phone] May, [place] [address] [place] [id number] [address] [place] [phone] May, [place] [address] [place] [id number] [address] [place] [phone] May, Type 1 diabetes mellitus wit h other specified complication E10.69 ; Depression, unspecified depression type F32.9 ; Anemia, unspecified type D64.9 ; Diabetic peripheral neuropathy E11.42 ; Gastric peptic ulcer, acute K25.3 ; Primary insomnia F51.01 and Pneumonia J18.9 [place] [address] [place] [id number] [address] [place] [phone] May, [place] [address] [place] [id number] [address] [place] [phone] May, IMMUNIZATIONS No Known Immunizations SOCIAL HISTORY Never Assessed REASON FOR VISIT Requests return call PLAN OF CARE VITAL SIGNS MEDICATIONS Unknown [...]
--- OUTSIDE RECORDS SUMMARY | 2019-09-28 08:56 | XMS REPORT ---
Author Author Stef HARRELL Organization [facility] Address [address] [place] [address] Care Team Providers Care Juvenile Corrections Officer Name Role Phone SARI HARRELL Unavailable PROBLEMS Type Condition ICD9-CM Code TWT51-DG Code Onset Dates Condition S tatus SNOMED Code Problem Diabetic peripheral neuropathy E11.42 Active 111791951 Problem Type 1 diabetes mellitus with other specified complication E10.69 Active 26858911 Problem Primary insomnia F51.01 Active 397 2004 Problem Depression, unspecified depression type F32.9 Active 41960462 Problem Anemia, unspecified type D64.9 Activ e 896214448 Problem Falls frequently R29.6 Active 279 797030 Problem Bilateral hearing loss, unspecified hearing loss type H91.93 Active 26459494 Problem Other chronic pain G89.29 Active 8 7472874 Problem End stage renal disease N18.6 Active 54981580 Problem Major depression, chronic F34.1 Acti ve 554815278 Problem Chronic GERD K21.9 Active 8350750 09 ALLERGIES No Information ENCOUNTERS Encounter Location Date Diagnosis [facility] [address] [facility] [id number] [address] [place] [id number] Dec, Primary insomnia F51.01 [facility] [address] [facility] [id number] [address] [place] [id number] Dec, [facility] [address] [facility] [id number] [address] [place] [id number] Nov, [facility] [address] [facility] [id number] [address] [place] [id number] Nov, Diabetic peripheral neuropat hy E11.42 [facility] [address] [facility] [id number] [address] [place] [id number] Oct, Type 1 diabetes mellitus wit h other specified complication E10.69 ; Diabetic peripheral neuropathy E11.42 and End stage renal disease N18.6 [facility] [address] [id number] [address] [place] [phone] Oct, [facility] [address] [facility] [id number] [address] [place] [phone] September, [facility] [address] [facility] [id number] [address] [place] [id number] Aug, Effusion of right elbow M25. 421 [facility] [address] [facility] [id number] [address] [place] [id number] Aug, Diabetic peripheral neuropat hy E11.42 [facility] [address] [facility] [id number] [address] [place] [id number] Jul, [facility] [address] [facility] [id number] [address] [place] [id number] Jul, Medicare annual wellness vis it, initial Z00.00 ; Diabetic peripheral neuropathy E11.42 ; End stage renal disease N18.6 ; Type 1 diabetes mellitus with other specified complication E10.69 ; Anemia, unspecified type D64.9 ; Falls frequently R29.6 ; Chronic GERD K21.9 ; Major depression, chronic F34.1 and Bilateral hearing loss, unspecified hearing loss type H91.93 [facility] [address] [facility] [id number] [address] [place] [phone] Jun, [facility] [address] [facility] [id number] [address] [place] [phone] Jun, Low back pain M54.5 and Prim linwood insomnia F51.01 [facility] [address] [facility] [id number] [address] [place] [id number] May, Diabetic peripheral neuropat hy E11.42 [facility] [address] [facility] [id number] [address] [place] [phone] May, [facility] [address] [facility] [id number] [address] [place] [id number] May, [facility] [address] [place] [id number] [address] [place] [phone] May, [facility] [address] [place] [id number] [address] [place] [id number] May, Diabetic peripheral neuropat hy E11.42 ; Type 1 diabetes mellitus with other specified complication E10.69 ; Primary insomnia F51.01 ; Depression, unspecified depression type F32.9 ; End stage renal disease N18.6 ; Left foot drop M21.372 and Foot drop, right foot M21.371 [place] [address] [place] [id number] [address] [place] [phone] Apr, [facility] [address] [place] [id number] [place] [phone] Apr, [facility] [place] [address] [place] [id number] [place] [phone] Mar, Foot drop, left M21.372 and Foot drop, right M21.371 [place] [address] [place] [id number] [address] [place] [id number] Mar, [facility] [address] [place] [id number] [address] [place] [id number] Feb, Type 1 diabetes mellitus wit h other specified complication E10.69 and Olecranon bursitis, unspecified laterality M70.20 [facility] [place] [address] [place] [id number] [address] [place] [id number] Feb, [facility] [address] [place] [id number] [address] [place] [id number] Feb, Diabetic peripheral neuropat hy E11.42 [facility] [address] [place] [id number] [address] [place] [id number] Jan, Type 1 diabetes mellitus wit h other specified complication E10.69 [facility] [place] [address] [place] [id number] [address] [place] [id number] Dec, Type 1 diabetes mellitus wit h other specified complication E10.69 ; Primary insomnia F51.01 ; End stage renal disease N18.6 and Chronic GERD K21.9 [facility] [address] [id number] [address] [place] [id number] Dec, [facility] [address] [id number] [address] [place] [phone] Nov, [facility] [address] [id number] [address] [place] [id number] Oct, Diabetic peripheral neuropat hy E11.42 [facility] [address] [id number] [address] [place] [id number] Oct, [facility] [address] [id number] [address] [place] [id number] September, Type 1 diabetes mellitus wit h other specified complication E10.69 [facility] [address] [id number] [address] [place] [id number] September, Diabetic peripheral neuropat hy E11.42 [facility] [address] [id number] [address] [place] [id number] September, Diabetic peripheral neuropat hy E11.42 ; Type 1 diabetes mellitus with other specified complication E10.69 and End stage renal disease N18.6 [facility] [address] [id number] [address] [place] [id number] September, [facility] [address] [id number] [address] [place] [id number] September, [facility] [address] [id number] [address] [place] [phone] Aug, [facility] [address] [id number] [address] [place] [phone] Aug, Low back pain, unspecified b ack pain laterality, unspecified chronicity, with sciatica presence unspecified M54.5 [facility] [address] [id number] [address] [place] [id number] Aug, [facility] [address] [id number] [address] [place] [id number] Jul, [facility] [address] [facility] [id number] [address] [place] [id number] Jul, Low back pain M54.5 ; Other chronic pain G89.29 ; Type 1 diabetes mellitus with other specified complication E10.69 ; Diabetic peripheral neuropathy E11.42 ; Left foot drop M21.372 and Foot drop, right foot M21.371 [facility] [address] [facility] [id number] [address] [place] [id number] Jul, [facility] [address] [place] [id number] [address] [place] [id number] Jul, [facility] [address] [place] [id number] [place] [phone] Jun, Low back pain, unspecified b ack pain laterality, unspecified chronicity, with sciatica presence unspecified M54.5 [place] [id number] [place] [id number] [address] [place] [phone] Jun, [facility] [address] [place] [id number] [address] [place] [phone] Jun, [facility] [address] [place] [id number] [address] [place] [id number] Jun, [facility] [address] [place] [id number] [address] [place] [id number] May, Type 1 diabetes mellitus wit h other specified complication E10.69 ; Diabetic peripheral neuropathy E11.42 and End stage renal disease N18.6 [facility] [address] [facility] [id number] [address] [place] [id number] Apr, Bronchitis J40 [facility] [address] [place] [id number] [address] [place] [id number] Apr, Other bursal cyst, left elbo w M71.322 [facility] [address] [place] [id number] [address] [place] [id number] Apr, [facility] [address] [place] [id number] [address] [place] [id number] Apr, Other bursal cyst, left elbo w M71.322 [facility] [address] [id number] [address] [place] [id number] Mar, [facility] [address] [id number] [address] [place] [id number] Mar, Rib pain R07.81 and Type 1 d iabetes mellitus with other specified complication E10.69 [facility] [address] [id number] [address] [place] [id number] Feb, [facility] [address] [id number] [address] [place] [id number] Feb, [facility] [address] [id number] [address] [place] [id number] Dec, [facility] [address] [id number] [address] [place] [phone] Dec, [facility] [address] [id number] [address] [place] [id number] Nov, Type 1 diabetes mellitus wit h other specified complication E10.69 and End stage renal disease N18.6 [facility] [address] [id number] [address] [place] [id number] Nov, [facility] [address] [id number] [address] [place] [id number] Nov, [facility] [address] [id number] [address] [place] [id number] Nov, [facility] [address] [id number] [address] [place] [phone] Nov, [facility] [address] [id number] [address] [place] [phone] Nov, [facility] [address] [id number] [address] [place] [phone] Oct, [facility] [address] [id number] [address] [place] [phone] Oct, [facility] [address] [id number] [address] [place] [id number] September, [facility] [address] [facility] [id number] [address] [place] [id number] September, Type 1 diabetes mellitus wit h other specified complication E10.69 [facility] [address] [facility] [id number] [address] [place] [id number] September, [facility] [address] [id number] [address] [place] [id number] September, Diabetic peripheral neuropat hy E11.42 ; Type 1 diabetes mellitus with other specified complication E10.69 ; Chronic kidney disease, stage 3 (moderate) N18.3 and Incomplete tear of left rotator cuff M75.112 [facility] [address] [facility] [id number] [address] [place] [phone] September, [facility] [address] [facility] [id number] [address] [place] [phone] Aug, [facility] [address] [facility] [id number] [address] [place] [id number] Aug, [facility] [address] [facility] [id number] [address] [place] [id number] Aug, Other chronic pain G89.29 an d Pain in left shoulder M25.512 [facility] [address] [facility] [id number] [address] [place] [phone] Aug, Physical deconditioning R53. 81 ; Pain in right shoulder M25.511 and Other chronic pain G89.29 [facility] [address] [facility] [id number] [address] [place] [id number] Aug, [facility] [address] [facility] [id number] [address] [place] [id number] Jul, Type 1 diabetes mellitus wit h other specified complication E10.69 ; Diabetic peripheral neuropathy E11.42 and Physical deconditioning R53.81 [facility] [address] [facility] [id number] [address] [place] [id number] Jul, [facility] [address] [facility] [id number] [address] [place] [id number] Jul, [facility] [address] [facility] [id number] [address] [place] [id number] Jun, [facility] [address] [place] [id number] [place] [phone] Jun, Type 1 diabetes mellitus wit h other specified complication E10.69 ; Insomnia G47.00 and Diabetic peripheral neuropathy E11.42 [facility] [address] [facility] [id number] [address] [place] [id number] Jun, [facility] [address] [place] [id number] [place] [phone] Jun, Physical deconditioning R53. 81 [facility] [address] [facility] [id number] [address] [place] [phone] Jun, [facility] [address] [facility] [id number] [address] [place] [id number] May, [facility] [address] [place] [id number] [address] [place] [phone] May, [facility] [address] [place] [id number] [address] [place] [phone] May, [facility] [address] [facility] [id number] [address] [place] [id number] May, [facility] [address] [facility] [id number] [address] [place] [id number] May, [facility] [address] [place] [id number] [address] [place] [id number] May, Adjustment disorder with dep ressed mood F43.21 [facility] [address] [facility] [id number] [address] [place] [id number] May, Type 1 diabetes mellitus wit h other specified complication E10.69 ; Anemia, unspecified type D64.9 ; Gastric peptic ulcer, acute K25.3 and Physical deconditioning R53.81 [place] [address] [place] [id number] [address] [place] [id number] May, [place] [address] [facility] [id number] [address] [place] [id number] May, Type 1 diabetes mellitus wit h other specified complication E10.69 [place] [address] [facility] [id number] [address] [place] [phone] May, [place] [address] [facility] [id number] [address] [place] [phone] May, [place] [address] [place] [id number] [address] [place] [phone] May, [place] [address] [place] [id number] [address] [place] [phone] May, [place] [address] [place] [id number] [address] [place] [id number] May, Type 1 diabetes mellitus wit h other specified complication E10.69 ; Depression, unspecified depression type F32.9 ; Anemia, unspecified type D64.9 ; Diabetic peripheral neuropathy E11.42 ; Gastric peptic ulcer, acute K25.3 ; Primary insomnia F51.01 and Pneumonia J18.9 [place] [id number] [place] [id number] May, [place] [address] [place] [id number] [address] [place] [phone] May, IMMUNIZATIONS No Known Immunizations SOCIAL HISTORY Never Assessed REASON FOR VISIT update referral PLAN OF CARE VITAL SIGNS MEDICATIONS Unknown [...]
--- OUTSIDE RECORDS SUMMARY | 2019-09-28 08:56 | XMS REPORT ---
Author Author Stef ESQUIVEL [facility] Address [address] [place] [address] Care Team Providers Care [employer]ed [employer] Plasma Etcher Name Role Phone ELKE ESQUIVEL Unavailable PROBLEMS Type Condition ICD9-CM Code WUW82-NE Code Onset Dates Condition S tatus SNOMED Code Problem Diabetic peripheral neuropathy E11.42 Active 359641590 Problem Type 1 diabetes mellitus with other specified complication E10.69 Active 77793521 Problem Primary insomnia F51.01 Active 397 2004 Problem Depression, unspecified depression type F32.9 Active 72539985 Problem Anemia, unspecified type D64.9 Activ e 251776549 Problem Falls frequently R29.6 Active 279 932365 Problem Bilateral hearing loss, unspecified hearing loss type H91.93 Active 15281660 Problem Other chronic pain G89.29 Active 8 2915565 Problem End stage renal disease N18.6 Active 92515335 Problem Major depression, chronic F34.1 Acti ve 120586920 Problem Chronic GERD K21.9 Active 4606309 09 ALLERGIES No Information ENCOUNTERS Encounter Location Date Diagnosis [facility] [address] [facility] [id number] [address] [place] [phone] Mar, Diabetic peripheral neuropat hy E11.42 [facility] [address] [facility] [id number] [address] [place] [phone] Feb, [facility] [address] [facility] [id number] [address] [place] [phone] Jan, [facility] [address] [facility] [id number] [address] [place] [phone] Dec, Primary insomnia F51.01 [facility] [address] [facility] [id number] [address] [place] [phone] Dec, [facility] [address] [facility] [id number] [address] [place] [phone] Nov, [facility] [address] [facility] [id number] [address] [place] [phone] Nov, Diabetic peripheral neuropat hy E11.42 [facility] [address] [facility] [id number] [address] [place] [id number] Oct, Type 1 diabetes mellitus wit h other specified complication E10.69 ; Diabetic peripheral neuropathy E11.42 and End stage renal disease N18.6 [facility] [address] [id number] [address] [place] [phone] Oct, [facility] [address] [facility] [id number] [address] [place] [phone] September, [facility] [address] [facility] [id number] [address] [place] [phone] Aug, Effusion of right elbow M25. 421 [facility] [address] [facility] [id number] [address] [place] [id number] Aug, Diabetic peripheral neuropat hy E11.42 [facility] [address] [facility] [id number] [address] [place] [phone] Jul, [facility] [address] [facility] [id number] [address] [place] [phone] Jul, Medicare annual wellness vis it, initial Z00.00 ; Diabetic peripheral neuropathy E11.42 ; End stage renal disease N18.6 ; Type 1 diabetes mellitus with other specified complication E10.69 ; Anemia, unspecified type D64.9 ; Falls frequently R29.6 ; Chronic GERD K21.9 ; Major depression, chronic F34.1 and Bilateral hearing loss, unspecified hearing loss type H91.93 [facility] [address] [facility] [id number] [address] [place] [phone] Jun, [facility] [address] [facility] [id number] [address] [place] [phone] Jun, Low back pain M54.5 and Prim linwood insomnia F51.01 [facility] [address] [id number] [address] [place] [phone] May, Diabetic peripheral neuropat hy E11.42 [facility] [address] [facility] [id number] [address] [place] [phone] May, [facility] [address] [facility] [id number] [address] [place] [phone] May, [facility] [address] [place] [id number] [address] [place] [phone] May, [facility] [address] [facility] [id number] [address] [place] [phone] May, Diabetic peripheral neuropat hy E11.42 ; Type 1 diabetes mellitus with other specified complication E10.69 ; Primary insomnia F51.01 ; Depression, unspecified depression type F32.9 ; End stage renal disease N18.6 ; Left foot drop M21.372 and Foot drop, right foot M21.371 [facility] [address] [place] [id number] [address] [place] [phone] Apr, [facility] [address] [facility] [id number] [address] [place] [phone] Apr, [facility] [address] [place] [id number] [place] [phone] Mar, Foot drop, left M21.372 and Foot drop, right M21.371 [facility] [address] [place] [id number] [address] [place] [phone] Mar, [facility] [address] [place] [id number] [address] [place] [id number] Feb, Type 1 diabetes mellitus wit h other specified complication E10.69 and Olecranon bursitis, unspecified laterality M70.20 [facility] [address] [facility] [id number] [address] [place] [id number] Feb, [facility] [address] [place] [id number] [address] [place] [phone] Feb, Diabetic peripheral neuropat hy E11.42 [facility] [address] [id number] [address] [place] [phone] Jan, Type 1 diabetes mellitus wit h other specified complication E10.69 [facility] [address] [id number] [address] [place] [phone] Dec, Type 1 diabetes mellitus wit h other specified complication E10.69 ; Primary insomnia F51.01 ; End stage renal disease N18.6 and Chronic GERD K21.9 [facility] [address] [id number] [address] [place] [phone] Dec, [facility] [address] [id number] [address] [place] [phone] Nov, [facility] [address] [id number] [address] [place] [id number] Oct, Diabetic peripheral neuropat hy E11.42 [facility] [address] [id number] [address] [place] [id number] Oct, [facility] [address] [id number] [address] [place] [phone] September, Type 1 diabetes mellitus wit h other specified complication E10.69 [facility] [address] [id number] [address] [place] [phone] September, Diabetic peripheral neuropat hy E11.42 [facility] [address] [id number] [address] [place] [phone] September, Diabetic peripheral neuropat hy E11.42 ; Type 1 diabetes mellitus with other specified complication E10.69 and End stage renal disease N18.6 [facility] [address] [id number] [address] [place] [phone] September, [facility] [address] [id number] [address] [place] [phone] September, [facility] [address] [id number] [address] [place] [phone] Aug, [facility] [address] [id number] [address] [place] [phone] Aug, Low back pain, unspecified b ack pain laterality, unspecified chronicity, with sciatica presence unspecified M54.5 [facility] [address] [id number] [address] [place] [id number] Aug, [facility] [address] [facility] [id number] [address] [place] [id number] Jul, [facility] [address] [facility] [id number] [address] [place] [phone] Jul, Low back pain M54.5 ; Other chronic pain G89.29 ; Type 1 diabetes mellitus with other specified complication E10.69 ; Diabetic peripheral neuropathy E11.42 ; Left foot drop M21.372 and Foot drop, right foot M21.371 [facility] [address] [facility] [id number] [address] [place] [phone] Jul, [facility] [address] [facility] [id number] [address] [place] [phone] Jul, [facility] [address] [facility] [id number] [address] [place] [phone] Jun, Low back pain, unspecified b ack pain laterality, unspecified chronicity, with sciatica presence unspecified M54.5 [facility] [address] [facility] [id number] [address] [place] [phone] Jun, [facility] [address] [facility] [id number] [address] [place] [phone] Jun, [facility] [address] [facility] [id number] [address] [place] [phone] Jun, [facility] [address] [facility] [id number] [address] [place] [phone] May, Type 1 diabetes mellitus wit h other specified complication E10.69 ; Diabetic peripheral neuropathy E11.42 and End stage renal disease N18.6 [facility] [address] [facility] [id number] [address] [place] [phone] Apr, Bronchitis J40 [facility] [address] [id number] [address] [place] [phone] Apr, Other bursal cyst, left elbo w M71.322 [facility] [address] [id number] [address] [place] [phone] Apr, [facility] [address] [id number] [address] [place] [id number] Apr, Other bursal cyst, left elbo w M71.322 [facility] [address] [id number] [address] [place] [phone] Mar, [facility] [address] [id number] [address] [place] [phone] Mar, Rib pain R07.81 and Type 1 d iabetes mellitus with other specified complication E10.69 [facility] [address] [id number] [address] [place] [phone] Feb, [facility] [address] [id number] [address] [place] [id number] Feb, [facility] [address] [id number] [address] [place] [phone] Dec, [facility] [address] [id number] [address] [place] [phone] Dec, [facility] [address] [id number] [address] [place] [phone] Nov, Type 1 diabetes mellitus wit h other specified complication E10.69 and End stage renal disease N18.6 [facility] [address] [id number] [address] [place] [id number] Nov, [facility] [address] [id number] [address] [place] [phone] Nov, [facility] [address] [id number] [address] [place] [id number] Nov, [facility] [address] [id number] [address] [place] [phone] Nov, [facility] [address] [id number] [address] [place] [phone] Nov, [facility] [address] [id number] [address] [place] [phone] Oct, [facility] [address] [id number] [address] [place] [phone] Oct, [facility] [address] [id number] [address] [place] [phone] September, [facility] [address] [id number] [address] [place] [phone] September, Type 1 diabetes mellitus wit h other specified complication E10.69 [facility] [address] [id number] [address] [place] [phone] September, [facility] [address] [id number] [address] [place] [phone] September, Diabetic peripheral neuropat hy E11.42 ; Type 1 diabetes mellitus with other specified complication E10.69 ; Chronic kidney disease, stage 3 (moderate) N18.3 and Incomplete tear of left rotator cuff M75.112 [facility] [address] [id number] [address] [place] [id number] September, [facility] [address] [id number] [address] [place] [phone] Aug, [facility] [address] [id number] [address] [place] [phone] Aug, [facility] [address] [id number] [address] [place] [phone] Aug, Other chronic pain G89.29 an d Pain in left shoulder M25.512 [facility] [address] [id number] [address] [place] [phone] Aug, Physical deconditioning R53. 81 ; Pain in right shoulder M25.511 and Other chronic pain G89.29 [facility] [address] [id number] [address] [place] [id number] Aug, [facility] [address] [id number] [address] [place] [id number] 30 Jul, 2015 Type 1 diabetes mellitus wit h other specified complication E10.69 ; Diabetic peripheral neuropathy E11.42 and Physical deconditioning R53.81 [facility] [address] [id number] [address] [place] [phone] Jul, [facility] [address] [id number] [address] [place] [phone] Jul, [facility] [address] [id number] [address] [place] [id number] Jun, [facility] [address] [facility] [id number] [address] [place] [phone] Jun, Type 1 diabetes mellitus wit h other specified complication E10.69 ; Insomnia G47.00 and Diabetic peripheral neuropathy E11.42 [facility] [address] [id number] [address] [place] [phone] Jun, [facility] [address] [id number] [address] [place] [phone] Jun, Physical deconditioning R53. 81 [facility] [address] [id number] [address] [place] [phone] Jun, [facility] [address] [id number] [address] [place] [phone] May, [facility] [address] [id number] [address] [place] [id number] May, [facility] [address] [facility] [id number] [address] [place] [phone] May, [facility] [address] [facility] [id number] [address] [place] [phone] May, [facility] [address] [id number] [address] [place] [phone] May, [facility] [address] [facility] [id number] [address] [place] [phone] May, Adjustment disorder with dep ressed mood F43.21 [facility] [address] [facility] [id number] [address] [place] [phone] 18 May, 2015 Type 1 diabetes mellitus wit h other specified complication E10.69 ; Anemia, unspecified type D64.9 ; Gastric peptic ulcer, acute K25.3 and Physical deconditioning R53.81 [facility] [address] [facility] [id number] [address] [place] [phone] May, [facility] [address] [facility] [id number] [address] [place] [phone] May, Type 1 diabetes mellitus wit h other specified complication E10.69 [facility] [address] [place] [id number] [address] [place] [phone] May, [facility] [address] [facility] [id number] [address] [place] [phone] May, [facility] [address] [facility] [id number] [address] [place] [phone] May, [facility] [address] [facility] [id number] [address] [place] [phone] May, [facility] [address] [facility] [id number] [address] [place] [phone] May, Type 1 diabetes mellitus wit h other specified complication E10.69 ; Depression, unspecified depression type F32.9 ; Anemia, unspecified type D64.9 ; Diabetic peripheral neuropathy E11.42 ; Gastric peptic ulcer, acute K25.3 ; Primary insomnia F51.01 and Pneumonia J18.9 [facility] [address] [facility] [id number] [address] [place] [phone] May, [facility] [address] [facility] [id number] [address] [place] [phone] May, IMMUNIZATIONS No Known Immunizations SOCIAL HISTORY Never Assessed REASON FOR VISIT Controlled Med Refill PLAN OF CARE VITAL SIGNS MEDICATIONS Medication Instructions Dosage Frequency Start Date End Date Duration S quincy Lyrica 75 MG Orally Three times a [...]
--- OUTSIDE RECORDS SUMMARY | 2019-09-28 08:56 | XMS REPORT ---
Author Author Stef HARRELL Organization [facility] Address [address] [place] [address] Care Team Providers Care Acid Changer Name Role Phone SARI HARRELL Unavailable PROBLEMS Type Condition ICD9-CM Code EIT52-UK Code Onset Dates Condition S tatus SNOMED Code Problem Diabetic peripheral neuropathy E11.42 Active 307416254 Problem Type 1 diabetes mellitus with other specified complication E10.69 Active 80650907 Problem Primary insomnia F51.01 Active 397 2004 Problem Depression, unspecified depression type F32.9 Active 67200665 Problem Anemia, unspecified type D64.9 Activ e 018749800 Problem Falls frequently R29.6 Active 279 624007 Problem Bilateral hearing loss, unspecified hearing loss type H91.93 Active 59036622 Problem Other chronic pain G89.29 Active 8 9078892 Problem End stage renal disease N18.6 Active 05987566 Problem Major depression, chronic F34.1 Acti ve 680271674 Problem Chronic GERD K21.9 Active 9575455 09 ALLERGIES No Information ENCOUNTERS Encounter Location Date Diagnosis [facility] [address] [facility] [id number] [address] [place] [phone] Dec, Primary insomnia F51.01 [facility] [address] [facility] [id number] [address] [place] [phone] Dec, [facility] [address] [facility] [id number] [address] [place] [phone] Nov, [facility] [address] [facility] [id number] [address] [place] [phone] Nov, Diabetic peripheral neuropat hy E11.42 [facility] [address] [facility] [id number] [address] [place] [phone] Oct, Type 1 diabetes mellitus wit h other specified complication E10.69 ; Diabetic peripheral neuropathy E11.42 and End stage renal disease N18.6 [facility] [address] [id number] [address] [place] [phone] Oct, [facility] [address] [facility] [id number] [address] [place] [phone] September, [facility] [address] [facility] [id number] [address] [place] [phone] Aug, Effusion of right elbow M25. 421 [facility] [address] [facility] [id number] [address] [place] [phone] Aug, Diabetic peripheral neuropat hy E11.42 [facility] [address] [facility] [id number] [address] [place] [phone] Jul, [facility] [address] [facility] [id number] [address] [place] [id number] Jul, Medicare annual wellness vis it, initial Z00.00 ; Diabetic peripheral neuropathy E11.42 ; End stage renal disease N18.6 ; Type 1 diabetes mellitus with other specified complication E10.69 ; Anemia, unspecified type D64.9 ; Falls frequently R29.6 ; Chronic GERD K21.9 ; Major depression, chronic F34.1 and Bilateral hearing loss, unspecified hearing loss type H91.93 [facility] [address] [facility] [id number] [address] [place] [phone] Jun, [facility] [address] [facility] [id number] [address] [place] [phone] Jun, Low back pain M54.5 and Prim linwood insomnia F51.01 [facility] [address] [facility] [id number] [address] [place] [phone] May, Diabetic peripheral neuropat hy E11.42 [facility] [address] [facility] [id number] [address] [place] [phone] May, [facility] [address] [facility] [id number] [address] [place] [phone] May, [facility] [address] [place] [id number] [address] [place] [phone] May, [facility] [address] [place] [id number] [address] [place] [address] May, Diabetic peripheral neuropat hy E11.42 ; Type 1 diabetes mellitus with other specified complication E10.69 ; Primary insomnia F51.01 ; Depression, unspecified depression type F32.9 ; End stage renal disease N18.6 ; Left foot drop M21.372 and Foot drop, right foot M21.371 [place] [address] [place] [id number] [address] [place] [phone] Apr, [place] [address] [place] [id number] [place] [phone] Apr, [place] [address] [place] [id number] [place] [phone] Mar, Foot drop, left M21.372 and Foot drop, right M21.371 [place] [address] [place] [id number] [address] [place] [phone] Mar, [place] [address] [place] [id number] [address] [place] [address] Feb, Type 1 diabetes mellitus wit h other specified complication E10.69 and Olecranon bursitis, unspecified laterality M70.20 [place] [address] [place] [id number] [address] [place] [phone] Feb, [place] [address] [place] [id number] [address] [place] [address] Feb, Diabetic peripheral neuropat hy E11.42 [place] [address] [place] [id number] [address] [place] [phone] Jan, Type 1 diabetes mellitus wit h other specified complication E10.69 [place] [address] [place] [id number] [address] [place] [address] Dec, Type 1 diabetes mellitus wit h other specified complication E10.69 ; Primary insomnia F51.01 ; End stage renal disease N18.6 and Chronic GERD K21.9 [facility] [address] [id number] [address] [place] [phone] Dec, [facility] [address] [id number] [address] [place] [phone] Nov, [facility] [address] [id number] [address] [place] [phone] Oct, Diabetic peripheral neuropat hy E11.42 [facility] [address] [id number] [address] [place] [address] Oct, [facility] [address] [id number] [address] [place] [phone] September, Type 1 diabetes mellitus wit h other specified complication E10.69 [facility] [address] [id number] [address] [place] [address] September, Diabetic peripheral neuropat hy E11.42 [facility] [address] [id number] [address] [place] [phone] September, Diabetic peripheral neuropat hy E11.42 ; Type 1 diabetes mellitus with other specified complication E10.69 and End stage renal disease N18.6 [facility] [address] [id number] [address] [place] [phone] September, [facility] [address] [id number] [address] [place] [phone] September, [facility] [address] [id number] [address] [place] [phone] Aug, [facility] [address] [id number] [address] [place] [phone] Aug, Low back pain, unspecified b ack pain laterality, unspecified chronicity, with sciatica presence unspecified M54.5 [facility] [address] [id number] [address] [place] [phone] Aug, [facility] [address] [id number] [address] [place] [phone] Jul, [facility] [address] [facility] [id number] [address] [place] [phone] Jul, Low back pain M54.5 ; Other chronic pain G89.29 ; Type 1 diabetes mellitus with other specified complication E10.69 ; Diabetic peripheral neuropathy E11.42 ; Left foot drop M21.372 and Foot drop, right foot M21.371 [facility] [address] [facility] [id number] [address] [place] [phone] Jul, [facility] [address] [place] [id number] [address] [place] [phone] Jul, [facility] [address] [place] [id number] [place] [phone] Jun, Low back pain, unspecified b ack pain laterality, unspecified chronicity, with sciatica presence unspecified M54.5 [place] [id number] [place] [id number] [address] [place] [phone] Jun, [facility] [address] [place] [id number] [address] [place] [phone] Jun, [facility] [address] [place] [id number] [address] [place] [phone] Jun, [facility] [address] [place] [id number] [address] [place] [address] May, Type 1 diabetes mellitus wit h other specified complication E10.69 ; Diabetic peripheral neuropathy E11.42 and End stage renal disease N18.6 [facility] [address] [facility] [id number] [address] [place] [phone] Apr, Bronchitis J40 [facility] [address] [place] [id number] [address] [place] [phone] Apr, Other bursal cyst, left elbo w M71.322 [facility] [address] [place] [id number] [address] [place] [phone] Apr, [facility] [address] [place] [id number] [address] [place] [address] Apr, Other bursal cyst, left elbo w M71.322 [facility] [address] [id number] [address] [place] [phone] Mar, [facility] [address] [id number] [address] [place] [phone] Mar, Rib pain R07.81 and Type 1 d iabetes mellitus with other specified complication E10.69 [facility] [address] [id number] [address] [place] [phone] Feb, [facility] [address] [id number] [address] [place] [phone] Feb, [facility] [address] [id number] [address] [place] [address] Dec, [facility] [address] [id number] [address] [place] [phone] Dec, [facility] [address] [id number] [address] [place] [phone] Nov, Type 1 diabetes mellitus wit h other specified complication E10.69 and End stage renal disease N18.6 [facility] [address] [id number] [address] [place] [phone] Nov, [facility] [address] [id number] [address] [place] [phone] Nov, [facility] [address] [id number] [address] [place] [phone] Nov, [facility] [address] [id number] [address] [place] [phone] Nov, [facility] [address] [id number] [address] [place] [phone] Nov, [facility] [address] [id number] [address] [place] [phone] Oct, [facility] [address] [id number] [address] [place] [phone] Oct, [facility] [address] [id number] [address] [place] [phone] September, [facility] [address] [facility] [id number] [address] [place] [phone] September, Type 1 diabetes mellitus wit h other specified complication E10.69 [facility] [address] [facility] [id number] [address] [place] [address] September, [facility] [address] [id number] [address] [place] [phone] September, Diabetic peripheral neuropat hy E11.42 ; Type 1 diabetes mellitus with other specified complication E10.69 ; Chronic kidney disease, stage 3 (moderate) N18.3 and Incomplete tear of left rotator cuff M75.112 [facility] [address] [facility] [id number] [address] [place] [phone] September, [facility] [address] [facility] [id number] [address] [place] [phone] Aug, [facility] [address] [facility] [id number] [address] [place] [phone] Aug, [facility] [address] [facility] [id number] [address] [place] [address] Aug, Other chronic pain G89.29 an d Pain in left shoulder M25.512 [facility] [address] [facility] [id number] [address] [place] [phone] Aug, Physical deconditioning R53. 81 ; Pain in right shoulder M25.511 and Other chronic pain G89.29 [facility] [address] [facility] [id number] [address] [place] [phone] Aug, [facility] [address] [facility] [id number] [address] [place] [address] Jul, Type 1 diabetes mellitus wit h other specified complication E10.69 ; Diabetic peripheral neuropathy E11.42 and Physical deconditioning R53.81 [facility] [address] [facility] [id number] [address] [place] [phone] Jul, [facility] [address] [facility] [id number] [address] [place] [phone] Jul, [facility] [address] [facility] [id number] [address] [place] [phone] Jun, [facility] [address] [place] [id number] [place] [address] Jun, Type 1 diabetes mellitus wit h other specified complication E10.69 ; Insomnia G47.00 and Diabetic peripheral neuropathy E11.42 [facility] [address] [facility] [id number] [address] [place] [phone] Jun, [facility] [address] [place] [id number] [place] [phone] Jun, Physical deconditioning R53. 81 [facility] [address] [facility] [id number] [address] [place] [phone] Jun, [facility] [address] [facility] [id number] [address] [place] [phone] May, [facility] [address] [place] [id number] [address] [place] [phone] May, [facility] [address] [place] [id number] [address] [place] [phone] May, [facility] [address] [facility] [id number] [address] [place] [phone] May, [facility] [address] [facility] [id number] [address] [place] [phone] May, [facility] [address] [place] [id number] [address] [place] [phone] May, Adjustment disorder with dep ressed mood F43.21 [facility] [address] [facility] [id number] [address] [place] [address] May, Type 1 diabetes mellitus wit h other specified complication E10.69 ; Anemia, unspecified type D64.9 ; Gastric peptic ulcer, acute K25.3 and Physical deconditioning R53.81 [place] [address] [place] [id number] [address] [place] [phone] May, [place] [address] [facility] [id number] [address] [place] [address] May, Type 1 diabetes mellitus wit h other specified complication E10.69 [place] [address] [facility] [id number] [address] [place] [address] May, [place] [address] [facility] [id number] [address] [place] [phone] May, [place] [address] [place] [id number] [address] [place] [phone] May, [place] [id number] [place] [address] May, [place] [address] [place] [id number] [address] [place] [address] May, Type 1 diabetes mellitus wit h other specified complication E10.69 ; Depression, unspecified depression type F32.9 ; Anemia, unspecified type D64.9 ; Diabetic peripheral neuropathy E11.42 ; Gastric peptic ulcer, acute K25.3 ; Primary insomnia F51.01 and Pneumonia J18.9 [place] [id number] [place] [phone] May, [place] [address] [place] [id number] [address] [place] [phone] May, IMMUNIZATIONS No Known Immunizations SOCIAL HISTORY Never Assessed REASON FOR VISIT Refill request PLAN OF CARE VITAL SIGNS MEDICATIONS Medication Instructions Dosage Frequency Start Date End Date Duration S quincy Trazodone HCl 100 mg Orally Once a day 1 tablet at bedtime as neede d 24h Dec, 90 days Active RESULTS No Results PROCEDURES No [...]
--- OUTSIDE RECORDS SUMMARY | 2019-09-28 08:56 | XMS REPORT ---
Author Author Stef HARRELL Organization [facility] Address [address] [place] [address] Care Team Providers Care Bus Inspector Name Role Phone SARI HARRELL Unavailable PROBLEMS Type Condition ICD9-CM Code CPI88-FS Code Onset Dates Condition S tatus SNOMED Code Problem Diabetic peripheral neuropathy E11.42 Active 646464594 Problem Type 1 diabetes mellitus with other specified complication E10.69 Active 59724910 Problem Primary insomnia F51.01 Active 397 2004 Problem Depression, unspecified depression type F32.9 Active 00307621 Problem Anemia, unspecified type D64.9 Activ e 301229230 Problem Falls frequently R29.6 Active 279 938970 Problem Bilateral hearing loss, unspecified hearing loss type H91.93 Active 71192758 Problem Other chronic pain G89.29 Active 8 0682319 Problem End stage renal disease N18.6 Active 72185149 Problem Major depression, chronic F34.1 Acti ve 416683023 Problem Chronic GERD K21.9 Active 1967021 09 ALLERGIES No Information ENCOUNTERS Encounter Location Date Diagnosis [facility] [address] [facility] [id number] [address] [place] [id number] Jan, [facility] [address] [facility] [id number] [address] [place] [phone] Dec, Primary insomnia F51.01 [facility] [address] [facility] [id number] [address] [place] [phone] Dec, [facility] [address] [facility] [id number] [address] [place] [id number] Nov, [facility] [address] [facility] [id number] [address] [place] [phone] Nov, Diabetic peripheral neuropat hy E11.42 [facility] [address] [facility] [id number] [address] [place] [phone] Oct, Type 1 diabetes mellitus wit h other specified complication E10.69 ; Diabetic peripheral neuropathy E11.42 and End stage renal disease N18.6 [facility] [address] [id number] [address] [place] [id number] Oct, [facility] [address] [id number] [address] [place] [id number] September, [facility] [address] [id number] [address] [place] [phone] Aug, Effusion of right elbow M25. 421 [facility] [address] [id number] [address] [place] [phone] Aug, Diabetic peripheral neuropat hy E11.42 [facility] [address] [facility] [id number] [address] [place] [id number] Jul, [place] [address] [facility] [id number] [address] [place] [id number] Jul, Medicare annual wellness vis it, initial Z00.00 ; Diabetic peripheral neuropathy E11.42 ; End stage renal disease N18.6 ; Type 1 diabetes mellitus with other specified complication E10.69 ; Anemia, unspecified type D64.9 ; Falls frequently R29.6 ; Chronic GERD K21.9 ; Major depression, chronic F34.1 and Bilateral hearing loss, unspecified hearing loss type H91.93 [facility] [address] [facility] [id number] [address] [place] [phone] Jun, [facility] [address] [facility] [id number] [address] [place] [phone] Jun, Low back pain M54.5 and Prim linwood insomnia F51.01 [facility] [address] [facility] [id number] [address] [place] [phone] May, Diabetic peripheral neuropat hy E11.42 [facility] [address] [facility] [id number] [address] [place] [phone] May, [facility] [address] [id number] [address] [place] [id number] May, [facility] [address] [facility] [id number] [address] [place] [id number] May, [facility] [address] [place] [id number] [address] [place] [id number] May, Diabetic peripheral neuropat hy E11.42 ; Type 1 diabetes mellitus with other specified complication E10.69 ; Primary insomnia F51.01 ; Depression, unspecified depression type F32.9 ; End stage renal disease N18.6 ; Left foot drop M21.372 and Foot drop, right foot M21.371 [facility] [address] [place] [id number] [address] [place] [phone] Apr, [facility] [address] [place] [id number] [address] [place] [id number] Apr, [facility] [address] [place] [id number] [place] [phone] Mar, Foot drop, left M21.372 and Foot drop, right M21.371 [facility] [address] [place] [id number] [address] [place] [id number] Mar, [facility] [address] [place] [id number] [address] [place] [id number] Feb, Type 1 diabetes mellitus wit h other specified complication E10.69 and Olecranon bursitis, unspecified laterality M70.20 [facility] [address] [place] [id number] [address] [place] [phone] Feb, [facility] [address] [place] [id number] [address] [place] [phone] Feb, Diabetic peripheral neuropat hy E11.42 [facility] [address] [place] [id number] [address] [place] [id number] Jan, Type 1 diabetes mellitus wit h other specified complication E10.69 [facility] [address] [place] [id number] [address] [place] [phone] Dec, Type 1 diabetes mellitus wit h other specified complication E10.69 ; Primary insomnia F51.01 ; End stage renal disease N18.6 and Chronic GERD K21.9 [facility] [address] [id number] [address] [place] [id number] Dec, [facility] [address] [id number] [address] [place] [phone] Nov, [facility] [address] [id number] [address] [place] [phone] Oct, Diabetic peripheral neuropat hy E11.42 [facility] [address] [id number] [address] [place] [phone] Oct, [facility] [address] [id number] [address] [place] [id number] September, Type 1 diabetes mellitus wit h other specified complication E10.69 [facility] [address] [id number] [address] [place] [id number] September, Diabetic peripheral neuropat hy E11.42 [facility] [address] [id number] [address] [place] [id number] September, Diabetic peripheral neuropat hy E11.42 ; Type 1 diabetes mellitus with other specified complication E10.69 and End stage renal disease N18.6 [facility] [address] [id number] [address] [place] [id number] September, [facility] [address] [id number] [address] [place] [phone] September, [facility] [address] [id number] [address] [place] [id number] Aug, [facility] [address] [facility] [id number] [address] [place] [phone] Aug, Low back pain, unspecified b ack pain laterality, unspecified chronicity, with sciatica presence unspecified M54.5 [facility] [address] [id number] [address] [place] [id number] Aug, [facility] [address] [facility] [id number] [address] [place] [phone] Jul, [facility] [address] [facility] [id number] [address] [place] [id number] Jul, Low back pain M54.5 ; Other chronic pain G89.29 ; Type 1 diabetes mellitus with other specified complication E10.69 ; Diabetic peripheral neuropathy E11.42 ; Left foot drop M21.372 and Foot drop, right foot M21.371 [facility] [address] [place] [id number] [address] [place] [id number] Jul, [facility] [address] [place] [id number] [address] [place] [id number] Jul, [facility] [address] [place] [id number] [place] [phone] Jun, Low back pain, unspecified b ack pain laterality, unspecified chronicity, with sciatica presence unspecified M54.5 [facility] [address] [place] [id number] [address] [place] [phone] Jun, [facility] [address] [place] [id number] [address] [place] [id number] Jun, [facility] [address] [place] [id number] [address] [place] [phone] Jun, [facility] [address] [place] [id number] [address] [place] [id number] May, Type 1 diabetes mellitus wit h other specified complication E10.69 ; Diabetic peripheral neuropathy E11.42 and End stage renal disease N18.6 [facility] [address] [facility] [id number] [address] [place] [id number] Apr, Bronchitis J40 [facility] [address] [place] [id number] [address] [place] [phone] Apr, Other bursal cyst, left elbo w M71.322 [facility] [address] [place] [id number] [address] [place] [id number] Apr, [facility] [address] [id number] [address] [place] [id number] Apr, Other bursal cyst, left elbo w M71.322 [facility] [address] [id number] [address] [place] [phone] Mar, [facility] [address] [id number] [address] [place] [id number] Mar, Rib pain R07.81 and Type 1 d iabetes mellitus with other specified complication E10.69 [facility] [address] [id number] [address] [place] [id number] Feb, [facility] [address] [id number] [address] [place] [phone] Feb, [facility] [address] [id number] [address] [place] [id number] Dec, [facility] [address] [id number] [address] [place] [phone] Dec, [facility] [address] [id number] [address] [place] [id number] Nov, Type 1 diabetes mellitus wit h other specified complication E10.69 and End stage renal disease N18.6 [facility] [address] [id number] [address] [place] [phone] Nov, [facility] [address] [id number] [address] [place] [phone] Nov, [facility] [address] [id number] [address] [place] [phone] Nov, [facility] [address] [id number] [address] [place] [phone] Nov, [facility] [address] [id number] [address] [place] [phone] Nov, [facility] [address] [id number] [address] [place] [id number] Oct, [facility] [address] [id number] [address] [place] [id number] Oct, [facility] [address] [id number] [address] [place] [phone] September, [facility] [address] [id number] [address] [place] [phone] September, Type 1 diabetes mellitus wit h other specified complication E10.69 [facility] [address] [id number] [address] [place] [id number] September, [facility] [address] [id number] [address] [place] [id number] September, Diabetic peripheral neuropat hy E11.42 ; Type 1 diabetes mellitus with other specified complication E10.69 ; Chronic kidney disease, stage 3 (moderate) N18.3 and Incomplete tear of left rotator cuff M75.112 [facility] [address] [id number] [address] [place] [phone] September, [facility] [address] [id number] [address] [place] [id number] Aug, [facility] [address] [id number] [address] [place] [id number] Aug, [facility] [address] [id number] [address] [place] [id number] Aug, Other chronic pain G89.29 an d Pain in left shoulder M25.512 [facility] [address] [id number] [address] [place] [phone] 15 Aug, 2015 Physical deconditioning R53. 81 ; Pain in right shoulder M25.511 and Other chronic pain G89.29 [facility] [address] [id number] [address] [place] [phone] Aug, [facility] [address] [id number] [address] [place] [phone] Jul, Type 1 diabetes mellitus wit h other specified complication E10.69 ; Diabetic peripheral neuropathy E11.42 and Physical deconditioning R53.81 [facility] [address] [facility] [id number] [address] [place] [phone] Jul, [facility] [address] [facility] [id number] [address] [place] [phone] Jul, [facility] [address] [facility] [id number] [address] [place] [phone] Jun, [facility] [address] [id number] [address] [place] [id number] Jun, Type 1 diabetes mellitus wit h other specified complication E10.69 ; Insomnia G47.00 and Diabetic peripheral neuropathy E11.42 [facility] [address] [facility] [id number] [address] [place] [id number] Jun, [facility] [address] [facility] [id number] [address] [place] [id number] Jun, Physical deconditioning R53. 81 [facility] [address] [id number] [address] [place] [phone] Jun, [facility] [address] [facility] [id number] [address] [place] [phone] May, [facility] [address] [facility] [id number] [address] [place] [phone] May, [facility] [address] [facility] [id number] [address] [place] [phone] May, [facility] [address] [facility] [id number] [address] [place] [phone] May, [facility] [address] [facility] [id number] [address] [place] [phone] May, [facility] [address] [facility] [id number] [address] [place] [id number] May, Adjustment disorder with dep ressed mood F43.21 [facility] [address] [place] [id number] [address] [place] [phone] May, Type 1 diabetes mellitus wit h other specified complication E10.69 ; Anemia, unspecified type D64.9 ; Gastric peptic ulcer, acute K25.3 and Physical deconditioning R53.81 [place] [address] [facility] [id number] [address] [place] [id number] May, [place] [address] [facility] [id number] [address] [place] [id number] May, Type 1 diabetes mellitus wit h other specified complication E10.69 [place] [address] [facility] [id number] [address] [place] [id number] May, [place] [address] [place] [id number] [address] [place] [id number] May, [place] [address] [place] [id number] [address] [place] [phone] May, [place] [address] [place] [id number] [address] [place] [id number] May, [place] [address] [place] [id number] [address] [place] [id number] May, Type 1 diabetes mellitus wit h other specified complication E10.69 ; Depression, unspecified depression type F32.9 ; Anemia, unspecified type D64.9 ; Diabetic peripheral neuropathy E11.42 ; Gastric peptic ulcer, acute K25.3 ; Primary insomnia F51.01 and Pneumonia J18.9 [place] [address] [place] [id number] [address] [place] [phone] May, [place] [id number] [place] [phone] May, IMMUNIZATIONS No Known Immunizations SOCIAL HISTORY Never Assessed REASON FOR VISIT Medication refill request PLAN OF CARE VITAL SIGNS MEDICATIONS Unknown [...]
--- OUTSIDE RECORDS SUMMARY | 2019-09-28 08:56 | XMS REPORT ---
Author Author Stef HARRELL Organization [facility] Address [address] [place] [address] Care Team Providers Care Sales Trader Name Role Phone SARI HARRELL Unavailable PROBLEMS Type Condition ICD9-CM Code XNN17-SJ Code Onset Dates Condition S tatus SNOMED Code Problem Diabetic peripheral neuropathy E11.42 Active 286641675 Problem Type 1 diabetes mellitus with other specified complication E10.69 Active 14551607 Problem Primary insomnia F51.01 Active 397 2004 Problem Depression, unspecified depression type F32.9 Active 12894621 Problem Anemia, unspecified type D64.9 Activ e 807312033 Problem Falls frequently R29.6 Active 279 437778 Problem Bilateral hearing loss, unspecified hearing loss type H91.93 Active 11285134 Problem Other chronic pain G89.29 Active 8 5326545 Problem End stage renal disease N18.6 Active 90311339 Problem Major depression, chronic F34.1 Acti ve 411792406 Problem Chronic GERD K21.9 Active 7897245 09 ALLERGIES No Information ENCOUNTERS Encounter Location Date Diagnosis [facility] [address] [facility] [id number] [address] [place] [id number] Dec, Primary insomnia F51.01 [facility] [address] [facility] [id number] [address] [place] [phone] Dec, [facility] [address] [facility] [id number] [address] [place] [id number] Nov, [facility] [address] [facility] [id number] [address] [place] [phone] Nov, Diabetic peripheral neuropat hy E11.42 [facility] [address] [facility] [id number] [address] [place] [id number] Oct, Type 1 diabetes mellitus wit h other specified complication E10.69 ; Diabetic peripheral neuropathy E11.42 and End stage renal disease N18.6 [facility] [address] [id number] [address] [place] [id number] Oct, [facility] [address] [facility] [id number] [address] [place] [phone] September, [facility] [address] [facility] [id number] [address] [place] [phone] Aug, Effusion of right elbow M25. 421 [facility] [address] [facility] [id number] [address] [place] [id number] Aug, Diabetic peripheral neuropat hy E11.42 [facility] [address] [facility] [id number] [address] [place] [id number] Jul, [facility] [address] [facility] [id number] [address] [place] [phone] Jul, Medicare annual wellness vis it, initial Z00.00 ; Diabetic peripheral neuropathy E11.42 ; End stage renal disease N18.6 ; Type 1 diabetes mellitus with other specified complication E10.69 ; Anemia, unspecified type D64.9 ; Falls frequently R29.6 ; Chronic GERD K21.9 ; Major depression, chronic F34.1 and Bilateral hearing loss, unspecified hearing loss type H91.93 [facility] [address] [facility] [id number] [address] [place] [phone] Jun, [facility] [address] [facility] [id number] [address] [place] [phone] Jun, Low back pain M54.5 and Prim linwood insomnia F51.01 [facility] [address] [facility] [id number] [address] [place] [phone] May, Diabetic peripheral neuropat hy E11.42 [facility] [address] [facility] [id number] [address] [place] [phone] May, [facility] [address] [facility] [id number] [address] [place] [phone] May, [facility] [address] [place] [id number] [address] [place] [phone] May, [facility] [address] [place] [id number] [address] [place] [address] May, Diabetic peripheral neuropat hy E11.42 ; Type 1 diabetes mellitus with other specified complication E10.69 ; Primary insomnia F51.01 ; Depression, unspecified depression type F32.9 ; End stage renal disease N18.6 ; Left foot drop M21.372 and Foot drop, right foot M21.371 [place] [address] [place] [id number] [address] [place] [phone] Apr, [place] [address] [place] [id number] [place] [phone] Apr, [place] [address] [place] [id number] [place] [id number] Mar, Foot drop, left M21.372 and Foot drop, right M21.371 [place] [address] [place] [id number] [address] [place] [id number] Mar, [place] [address] [place] [id number] [address] [place] [phone] Feb, Type 1 diabetes mellitus wit h other specified complication E10.69 and Olecranon bursitis, unspecified laterality M70.20 [place] [address] [place] [id number] [address] [place] [id number] Feb, [place] [address] [place] [id number] [address] [place] [phone] Feb, Diabetic peripheral neuropat hy E11.42 [place] [address] [place] [id number] [address] [place] [phone] Jan, Type 1 diabetes mellitus wit h other specified complication E10.69 [place] [address] [place] [id number] [address] [place] [id number] Dec, Type 1 diabetes mellitus wit h other specified complication E10.69 ; Primary insomnia F51.01 ; End stage renal disease N18.6 and Chronic GERD K21.9 [facility] [address] [id number] [address] [place] [id number] Dec, [facility] [address] [id number] [address] [place] [id number] Nov, [facility] [address] [id number] [address] [place] [id number] Oct, Diabetic peripheral neuropat hy E11.42 [facility] [address] [id number] [address] [place] [id number] Oct, [facility] [address] [id number] [address] [place] [id number] September, Type 1 diabetes mellitus wit h other specified complication E10.69 [facility] [address] [id number] [address] [place] [id number] September, Diabetic peripheral neuropat hy E11.42 [facility] [address] [id number] [address] [place] [id number] September, Diabetic peripheral neuropat hy E11.42 ; Type 1 diabetes mellitus with other specified complication E10.69 and End stage renal disease N18.6 [facility] [address] [id number] [address] [place] [phone] September, [facility] [address] [id number] [address] [place] [id number] September, [facility] [address] [id number] [address] [place] [phone] Aug, [facility] [address] [id number] [address] [place] [id number] Aug, Low back pain, unspecified b ack pain laterality, unspecified chronicity, with sciatica presence unspecified M54.5 [facility] [address] [id number] [address] [place] [id number] Aug, [facility] [address] [id number] [address] [place] [id number] Jul, [facility] [address] [facility] [id number] [address] [place] [address] Jul, Low back pain M54.5 ; Other chronic pain G89.29 ; Type 1 diabetes mellitus with other specified complication E10.69 ; Diabetic peripheral neuropathy E11.42 ; Left foot drop M21.372 and Foot drop, right foot M21.371 [facility] [address] [facility] [id number] [address] [place] [phone] Jul, [facility] [address] [place] [id number] [address] [place] [id number] Jul, [facility] [address] [place] [id number] [place] [phone] Jun, Low back pain, unspecified b ack pain laterality, unspecified chronicity, with sciatica presence unspecified M54.5 [place] [id number] [place] [id number] [address] [place] [phone] Jun, [facility] [address] [place] [id number] [address] [place] [phone] Jun, [facility] [address] [place] [id number] [address] [place] [id number] Jun, [facility] [address] [place] [id number] [address] [place] [address] May, Type 1 diabetes mellitus wit h other specified complication E10.69 ; Diabetic peripheral neuropathy E11.42 and End stage renal disease N18.6 [facility] [address] [facility] [id number] [address] [place] [id number] Apr, Bronchitis J40 [facility] [address] [place] [id number] [address] [place] [id number] Apr, Other bursal cyst, left elbo w M71.322 [facility] [address] [place] [id number] [address] [place] [id number] Apr, [facility] [address] [place] [id number] [address] [place] [id number] Apr, Other bursal cyst, left elbo w M71.322 [facility] [address] [id number] [address] [place] [id number] Mar, [facility] [address] [id number] [address] [place] [id number] Mar, Rib pain R07.81 and Type 1 d iabetes mellitus with other specified complication E10.69 [facility] [address] [id number] [address] [place] [id number] Feb, [facility] [address] [id number] [address] [place] [phone] Feb, [facility] [address] [id number] [address] [place] [id number] Dec, [facility] [address] [id number] [address] [place] [id number] Dec, [facility] [address] [id number] [address] [place] [phone] Nov, Type 1 diabetes mellitus wit h other specified complication E10.69 and End stage renal disease N18.6 [facility] [address] [id number] [address] [place] [phone] Nov, [facility] [address] [id number] [address] [place] [phone] Nov, [facility] [address] [id number] [address] [place] [phone] Nov, [facility] [address] [id number] [address] [place] [phone] Nov, [facility] [address] [id number] [address] [place] [id number] Nov, [facility] [address] [id number] [address] [place] [phone] Oct, [facility] [address] [id number] [address] [place] [id number] Oct, [facility] [address] [id number] [address] [place] [id number] September, [facility] [address] [facility] [id number] [address] [place] [id number] September, Type 1 diabetes mellitus wit h other specified complication E10.69 [facility] [address] [facility] [id number] [address] [place] [id number] September, [facility] [address] [id number] [address] [place] [id number] September, Diabetic peripheral neuropat hy E11.42 ; Type 1 diabetes mellitus with other specified complication E10.69 ; Chronic kidney disease, stage 3 (moderate) N18.3 and Incomplete tear of left rotator cuff M75.112 [facility] [address] [facility] [id number] [address] [place] [phone] September, [facility] [address] [facility] [id number] [address] [place] [phone] Aug, [facility] [address] [facility] [id number] [address] [place] [id number] Aug, [facility] [address] [facility] [id number] [address] [place] [id number] Aug, Other chronic pain G89.29 an d Pain in left shoulder M25.512 [facility] [address] [facility] [id number] [address] [place] [id number] Aug, Physical deconditioning R53. 81 ; Pain in right shoulder M25.511 and Other chronic pain G89.29 [facility] [address] [facility] [id number] [address] [place] [id number] Aug, [facility] [address] [facility] [id number] [address] [place] [id number] Jul, Type 1 diabetes mellitus wit h other specified complication E10.69 ; Diabetic peripheral neuropathy E11.42 and Physical deconditioning R53.81 [facility] [address] [facility] [id number] [address] [place] [phone] Jul, [facility] [address] [facility] [id number] [address] [place] [id number] Jul, [facility] [address] [facility] [id number] [address] [place] [phone] Jun, [facility] [address] [place] [id number] [place] [id number] Jun, Type 1 diabetes mellitus wit h other specified complication E10.69 ; Insomnia G47.00 and Diabetic peripheral neuropathy E11.42 [facility] [address] [facility] [id number] [address] [place] [id number] Jun, [facility] [address] [place] [id number] [place] [address] Jun, Physical deconditioning R53. 81 [facility] [address] [facility] [id number] [address] [place] [phone] Jun, [facility] [address] [facility] [id number] [address] [place] [phone] May, [facility] [address] [place] [id number] [address] [place] [phone] May, [facility] [address] [place] [id number] [address] [place] [phone] May, [facility] [address] [facility] [id number] [address] [place] [phone] May, [facility] [address] [facility] [id number] [address] [place] [id number] May, [facility] [address] [place] [id number] [address] [place] [id number] May, Adjustment disorder with dep ressed mood F43.21 [facility] [address] [facility] [id number] [address] [place] [phone] May, Type 1 diabetes mellitus wit h other specified complication E10.69 ; Anemia, unspecified type D64.9 ; Gastric peptic ulcer, acute K25.3 and Physical deconditioning R53.81 [place] [address] [place] [id number] [address] [place] [id number] May, [place] [address] [facility] [id number] [address] [place] [id number] May, Type 1 diabetes mellitus wit h other specified complication E10.69 [place] [address] [facility] [id number] [address] [place] [phone] May, [place] [address] [facility] [id number] [address] [place] [id number] May, [place] [address] [place] [id number] [address] [place] [phone] May, [place] [id number] [place] [phone] May, [place] [address] [place] [id number] [address] [place] [address] May, Type 1 diabetes mellitus wit h other specified complication E10.69 ; Depression, unspecified depression type F32.9 ; Anemia, unspecified type D64.9 ; Diabetic peripheral neuropathy E11.42 ; Gastric peptic ulcer, acute K25.3 ; Primary insomnia F51.01 and Pneumonia J18.9 [place] [id number] [place] [address] May, [place] [address] [place] [id number] [address] [place] [id number] May, IMMUNIZATIONS No Known Immunizations SOCIAL HISTORY Never Assessed REASON FOR VISIT Controlled Med Refill 12/01/17 PLAN OF CARE VITAL SIGNS MEDICATIONS Medication [...]
--- OUTSIDE RECORDS SUMMARY | 2019-09-28 08:56 | XMS REPORT ---
Author Author Stef HARRELL Organization [facility] Address [address] [place] [address] Care Team Providers Care Targeting Acquisition Officer Name Role Phone SARI HARRELL Unavailable PROBLEMS Type Condition ICD9-CM Code [id number] Code Onset Dates Condition S tatus SNOMED Code Problem Diabetic peripheral neuropathy E11.42 Active 560590711 Problem Type 1 diabetes mellitus with other specified complication E10.69 Active 76903555 Problem Primary insomnia F51.01 Active 397 2004 Problem Depression, unspecified depression type F32.9 Active 74893351 Problem Anemia, unspecified type D64.9 Activ e 229305859 Problem Falls frequently R29.6 Active 279 805682 Problem Bilateral hearing loss, unspecified hearing loss type H91.93 Active 04146064 Problem Other chronic pain G89.29 Active 8 0652955 Problem End stage renal disease N18.6 Active 30719232 Problem Major depression, chronic F34.1 Acti ve 906960890 Problem Chronic GERD K21.9 Active 8398678 09 ALLERGIES No Information ENCOUNTERS Encounter Location Date Diagnosis [facility] [address] [facility] [id number] [address] [place] [address] Dec, Primary insomnia F51.01 [facility] [address] [facility] [id number] [address] [place] [address] Dec, [facility] [address] [facility] [id number] [address] [place] [address] Nov, [facility] [address] [facility] [id number] [address] [place] [address] Nov, Diabetic peripheral neuropat hy E11.42 [facility] [address] [facility] [id number] [address] [place] [address] Oct, Type 1 diabetes mellitus wit h other specified complication E10.69 ; Diabetic peripheral neuropathy E11.42 and End stage renal disease N18.6 [facility] [address] [id number] [address] [place] [address] Oct, [facility] [address] [facility] [id number] [address] [place] [address] September, [facility] [address] [facility] [id number] [address] [place] [address] Aug, Effusion of right elbow M25. 421 [facility] [address] [facility] [id number] [address] [place] [address] Aug, Diabetic peripheral neuropat hy E11.42 [facility] [address] [facility] [id number] [address] [place] [address] Jul, [facility] [address] [facility] [id number] [address] [place] [address] Jul, Medicare annual wellness vis it, initial Z00.00 ; Diabetic peripheral neuropathy E11.42 ; End stage renal disease N18.6 ; Type 1 diabetes mellitus with other specified complication E10.69 ; Anemia, unspecified type D64.9 ; Falls frequently R29.6 ; Chronic GERD K21.9 ; Major depression, chronic F34.1 and Bilateral hearing loss, unspecified hearing loss type H91.93 [facility] [address] [facility] [id number] [address] [place] [address] Jun, [facility] [address] [facility] [id number] [address] [place] [address] Jun, Low back pain M54.5 and Prim linwood insomnia F51.01 [facility] [address] [facility] [id number] [address] [place] [address] May, Diabetic peripheral neuropat hy E11.42 [facility] [address] [facility] [id number] [address] [place] [address] May, [facility] [address] [facility] [id number] [address] [place] [address] May, [facility] [address] [place] [id number] [address] [place] [address] May, [facility] [address] [place] [id number] [address] [place] [address] May, Diabetic peripheral neuropat hy E11.42 ; Type 1 diabetes mellitus with other specified complication E10.69 ; Primary insomnia F51.01 ; Depression, unspecified depression type F32.9 ; End stage renal disease N18.6 ; Left foot drop M21.372 and Foot drop, right foot M21.371 [place] [address] [place] [id number] [address] [place] [address] Apr, [place] [address] [place] [id number] [place] [address] Apr, [place] [address] [place] [id number] [place] [address] Mar, Foot drop, left M21.372 and Foot drop, right M21.371 [place] [address] [place] [id number] [address] [place] [address] Mar, [place] [address] [place] [id number] [address] [place] [address] Feb, Type 1 diabetes mellitus wit h other specified complication E10.69 and Olecranon bursitis, unspecified laterality M70.20 [place] [address] [place] [id number] [address] [place] [address] Feb, [place] [address] [place] [id number] [address] [place] [address] Feb, Diabetic peripheral neuropat hy E11.42 [place] [address] [place] [id number] [address] [place] [address] Jan, Type 1 diabetes mellitus wit h other specified complication E10.69 [place] [address] [place] [id number] [address] [place] [address] Dec, Type 1 diabetes mellitus wit h other specified complication E10.69 ; Primary insomnia F51.01 ; End stage renal disease N18.6 and Chronic GERD K21.9 [facility] [address] [id number] [address] [place] [address] Dec, [facility] [address] [id number] [address] [place] [address] Nov, [facility] [address] [id number] [address] [place] [address] Oct, Diabetic peripheral neuropat hy E11.42 [facility] [address] [id number] [address] [place] [address] Oct, [facility] [address] [id number] [address] [place] [address] September, Type 1 diabetes mellitus wit h other specified complication E10.69 [facility] [address] [id number] [address] [place] [address] September, Diabetic peripheral neuropat hy E11.42 [facility] [address] [id number] [address] [place] [address] September, Diabetic peripheral neuropat hy E11.42 ; Type 1 diabetes mellitus with other specified complication E10.69 and End stage renal disease N18.6 [facility] [address] [id number] [address] [place] [address] September, [facility] [address] [id number] [address] [place] [address] September, [facility] [address] [id number] [address] [place] [address] Aug, [facility] [address] [id number] [address] [place] [address] Aug, Low back pain, unspecified b ack pain laterality, unspecified chronicity, with sciatica presence unspecified M54.5 [facility] [address] [id number] [address] [place] [address] Aug, [facility] [address] [id number] [address] [place] [address] Jul, [facility] [address] [facility] [id number] [address] [place] [address] Jul, Low back pain M54.5 ; Other chronic pain G89.29 ; Type 1 diabetes mellitus with other specified complication E10.69 ; Diabetic peripheral neuropathy E11.42 ; Left foot drop M21.372 and Foot drop, right foot M21.371 [facility] [address] [facility] [id number] [address] [place] [address] Jul, [facility] [address] [place] [id number] [address] [place] [address] Jul, [facility] [address] [place] [id number] [place] [address] Jun, Low back pain, unspecified b ack pain laterality, unspecified chronicity, with sciatica presence unspecified M54.5 [place] [address] [place] [id number] [address] [place] [address] Jun, [facility] [address] [place] [id number] [address] [place] [address] Jun, [facility] [address] [place] [id number] [address] [place] [address] Jun, [facility] [address] [place] [id number] [address] [place] [address] May, Type 1 diabetes mellitus wit h other specified complication E10.69 ; Diabetic peripheral neuropathy E11.42 and End stage renal disease N18.6 [facility] [address] [facility] [id number] [address] [place] [address] Apr, Bronchitis J40 [facility] [address] [place] [id number] [address] [place] [address] Apr, Other bursal cyst, left elbo w M71.322 [facility] [address] [place] [id number] [address] [place] [address] Apr, [facility] [address] [place] [id number] [address] [place] [address] Apr, Other bursal cyst, left elbo w M71.322 [facility] [address] [id number] [address] [place] [address] Mar, [facility] [address] [id number] [address] [place] [address] Mar, Rib pain R07.81 and Type 1 d iabetes mellitus with other specified complication E10.69 [facility] [address] [id number] [address] [place] [address] Feb, [facility] [address] [id number] [address] [place] [address] Feb, [facility] [address] [id number] [address] [place] [address] Dec, [facility] [address] [id number] [address] [place] [address] Dec, [facility] [address] [id number] [address] [place] [address] Nov, Type 1 diabetes mellitus wit h other specified complication E10.69 and End stage renal disease N18.6 [facility] [address] [id number] [address] [place] [address] Nov, [facility] [address] [id number] [address] [place] [address] Nov, [facility] [address] [id number] [address] [place] [address] Nov, [facility] [address] [id number] [address] [place] [address] Nov, [facility] [address] [id number] [address] [place] [address] Nov, [facility] [address] [id number] [address] [place] [address] Oct, [facility] [address] [id number] [address] [place] [address] Oct, [facility] [address] [id number] [address] [place] [address] September, [facility] [address] [facility] [id number] [address] [place] [address] September, Type 1 diabetes mellitus wit h other specified complication E10.69 [facility] [address] [facility] [id number] [address] [place] [address] September, [facility] [address] [id number] [address] [place] [address] September, Diabetic peripheral neuropat hy E11.42 ; Type 1 diabetes mellitus with other specified complication E10.69 ; Chronic kidney disease, stage 3 (moderate) N18.3 and Incomplete tear of left rotator cuff M75.112 [facility] [address] [facility] [id number] [address] [place] [address] September, [facility] [address] [facility] [id number] [address] [place] [address] Aug, [facility] [address] [facility] [id number] [address] [place] [address] Aug, [facility] [address] [facility] [id number] [address] [place] [address] Aug, Other chronic pain G89.29 an d Pain in left shoulder M25.512 [facility] [address] [facility] [id number] [address] [place] [address] Aug, Physical deconditioning R53. 81 ; Pain in right shoulder M25.511 and Other chronic pain G89.29 [facility] [address] [facility] [id number] [address] [place] [address] Aug, [facility] [address] [facility] [id number] [address] [place] [address] Jul, Type 1 diabetes mellitus wit h other specified complication E10.69 ; Diabetic peripheral neuropathy E11.42 and Physical deconditioning R53.81 [facility] [address] [facility] [id number] [address] [place] [address] Jul, [facility] [address] [facility] [id number] [address] [place] [address] Jul, [facility] [address] [facility] [id number] [address] [place] [address] Jun, [facility] [address] [place] [id number] [place] [address] Jun, Type 1 diabetes mellitus wit h other specified complication E10.69 ; Insomnia G47.00 and Diabetic peripheral neuropathy E11.42 [facility] [address] [facility] [id number] [address] [place] [address] Jun, [facility] [address] [place] [id number] [place] [address] Jun, Physical deconditioning R53. 81 [facility] [address] [facility] [id number] [address] [place] [address] Jun, [facility] [address] [facility] [id number] [address] [place] [address] May, [facility] [address] [place] [id number] [address] [place] [address] May, [facility] [address] [place] [id number] [address] [place] [address] May, [facility] [address] [facility] [id number] [address] [place] [address] May, [facility] [address] [facility] [id number] [address] [place] [address] May, [facility] [address] [place] [id number] [address] [place] [address] May, Adjustment disorder with dep ressed mood F43.21 [facility] [address] [facility] [id number] [address] [place] [address] May, Type 1 diabetes mellitus wit h other specified complication E10.69 ; Anemia, unspecified type D64.9 ; Gastric peptic ulcer, acute K25.3 and Physical deconditioning R53.81 [place] [address] [place] [id number] [address] [place] [address] May, [place] [address] [facility] [id number] [address] [place] [address] May, Type 1 diabetes mellitus wit h other specified complication E10.69 [place] [address] [facility] [id number] [address] [place] [address] May, [place] [address] [facility] [id number] [address] [place] [address] May, [place] [address] [place] [id number] [address] [place] [address] May, [place] [address] [place] [id number] [address] [place] [address] May, [place] [address] [place] [id number] [address] [place] [address] May, Type 1 diabetes mellitus wit h other specified complication E10.69 ; Depression, unspecified depression type F32.9 ; Anemia, unspecified type D64.9 ; Diabetic peripheral neuropathy E11.42 ; Gastric peptic ulcer, acute K25.3 ; Primary insomnia F51.01 and Pneumonia J18.9 [place] [address] [place] [id number] [address] [place] [address] May, [place] [address] [place] [id number] [address] [place] [address] May, IMMUNIZATIONS No Known Immunizations SOCIAL HISTORY Never Assessed REASON FOR VISIT [facility] Admission PLAN OF CARE VITAL SIGNS MEDICATIONS Unknown [...]
--- OUTSIDE RECORDS SUMMARY | 2019-09-28 08:57 | XMS REPORT ---
Author Author Stef HARRELL Organization [facility] Address [address] [place] [address] Care Team Providers Care Marketing Clerk Name Role Phone SARI HARRELL Unavailable PROBLEMS Type Condition ICD9-CM Code TNI59-DO Code Onset Dates Condition S tatus SNOMED Code Problem Diabetic peripheral neuropathy E11.42 Active 226169467 Problem Type 1 diabetes mellitus with other specified complication E10.69 Active 68329858 Problem Primary insomnia F51.01 Active 397 2004 Problem Depression, unspecified depression type F32.9 Active 93750665 Problem Anemia, unspecified type D64.9 Activ e 190470744 Problem Falls frequently R29.6 Active 279 562580 Problem Bilateral hearing loss, unspecified hearing loss type H91.93 Active 94004270 Problem Other chronic pain G89.29 Active 8 0583085 Problem End stage renal disease N18.6 Active 02080605 Problem Major depression, chronic F34.1 Acti ve 988244974 Problem Chronic GERD K21.9 Active 2662993 09 ALLERGIES No Information ENCOUNTERS Encounter Location Date Diagnosis [facility] [address] [facility] [id number] [address] [place] [phone] Dec, [facility] [address] [facility] [id number] [address] [place] [phone] Nov, [facility] [address] [facility] [id number] [address] [place] [id number] Nov, Diabetic peripheral neuropat hy E11.42 [facility] [address] [facility] [id number] [address] [place] [phone] Oct, Type 1 diabetes mellitus wit h other specified complication E10.69 ; Diabetic peripheral neuropathy E11.42 and End stage renal disease N18.6 [facility] [address] [facility] [id number] [address] [place] [id number] Oct, [facility] [address] [facility] [id number] [address] [place] [phone] September, [facility] [address] [facility] [id number] [address] [place] [id number] Aug, Effusion of right elbow M25. 421 [facility] [address] [place] [id number] [address] [place] [id number] Aug, Diabetic peripheral neuropat hy E11.42 [facility] [address] [facility] [id number] [address] [place] [id number] Jul, [facility] [address] [facility] [id number] [address] [place] [id number] Jul, Medicare annual wellness vis it, initial Z00.00 ; Diabetic peripheral neuropathy E11.42 ; End stage renal disease N18.6 ; Type 1 diabetes mellitus with other specified complication E10.69 ; Anemia, unspecified type D64.9 ; Falls frequently R29.6 ; Chronic GERD K21.9 ; Major depression, chronic F34.1 and Bilateral hearing loss, unspecified hearing loss type H91.93 [facility] [address] [facility] [id number] [address] [place] [phone] Jun, [facility] [address] [place] [id number] [address] [place] [phone] Jun, Low back pain M54.5 and Prim linwood insomnia F51.01 [facility] [address] [facility] [id number] [address] [place] [phone] May, Diabetic peripheral neuropat hy E11.42 [facility] [address] [facility] [id number] [address] [place] [phone] May, [facility] [address] [facility] [id number] [address] [place] [phone] May, [facility] [address] [facility] [id number] [address] [place] [id number] May, [facility] [address] [facility] [id number] [address] [place] [id number] May, Diabetic peripheral neuropat hy E11.42 ; Type 1 diabetes mellitus with other specified complication E10.69 ; Primary insomnia F51.01 ; Depression, unspecified depression type F32.9 ; End stage renal disease N18.6 ; Left foot drop M21.372 and Foot drop, right foot M21.371 [facility] [address] [facility] [id number] [address] [place] [phone] Apr, [facility] [address] [facility] [id number] [address] [place] [id number] Apr, [facility] [address] [facility] [id number] [address] [place] [id number] Mar, Foot drop, left M21.372 and Foot drop, right M21.371 [place] [address] [place] [id number] [address] [place] [id number] Mar, [facility] [address] [facility] [id number] [address] [place] [id number] Feb, Type 1 diabetes mellitus wit h other specified complication E10.69 and Olecranon bursitis, unspecified laterality M70.20 [facility] [address] [facility] [id number] [address] [place] [id number] Feb, [place] [address] [facility] [id number] [address] [place] [phone] Feb, Diabetic peripheral neuropat hy E11.42 [facility] [address] [facility] [id number] [address] [place] [phone] Jan, Type 1 diabetes mellitus wit h other specified complication E10.69 [facility] [address] [facility] [id number] [address] [place] [id number] Dec, Type 1 diabetes mellitus wit h other specified complication E10.69 ; Primary insomnia F51.01 ; End stage renal disease N18.6 and Chronic GERD K21.9 [facility] [address] [facility] [id number] [address] [place] [phone] Dec, [place] [address] [id number] [address] [place] [phone] Nov, [facility] [address] [id number] [address] [place] [id number] Oct, Diabetic peripheral neuropat hy E11.42 [facility] [address] [id number] [address] [place] [phone] Oct, [facility] [address] [id number] [address] [place] [phone] September, Type 1 diabetes mellitus wit h other specified complication E10.69 [facility] [address] [id number] [address] [place] [id number] September, Diabetic peripheral neuropat hy E11.42 [facility] [address] [id number] [address] [place] [phone] September, Diabetic peripheral neuropat hy E11.42 ; Type 1 diabetes mellitus with other specified complication E10.69 and End stage renal disease N18.6 [facility] [address] [id number] [address] [place] [phone] September, [facility] [address] [id number] [address] [place] [phone] September, [facility] [address] [id number] [address] [place] [phone] Aug, [facility] [address] [id number] [address] [place] [phone] Aug, Low back pain, unspecified b ack pain laterality, unspecified chronicity, with sciatica presence unspecified M54.5 [facility] [address] [id number] [address] [place] [phone] Aug, [facility] [address] [id number] [address] [place] [phone] Jul, [facility] [address] [id number] [address] [place] [phone] Jul, Low back pain M54.5 ; Other chronic pain G89.29 ; Type 1 diabetes mellitus with other specified complication E10.69 ; Diabetic peripheral neuropathy E11.42 ; Left foot drop M21.372 and Foot drop, right foot M21.371 [facility] [address] [facility] [id number] [address] [place] [id number] Jul, [facility] [address] [facility] [id number] [address] [place] [id number] Jul, [facility] [address] [facility] [id number] [address] [place] [phone] Jun, Low back pain, unspecified b ack pain laterality, unspecified chronicity, with sciatica presence unspecified M54.5 [facility] [address] [facility] [id number] [address] [place] [id number] Jun, [facility] [address] [place] [id number] [address] [place] [phone] Jun, [facility] [address] [place] [id number] [address] [place] [phone] Jun, [facility] [address] [place] [id number] [address] [place] [id number] May, Type 1 diabetes mellitus wit h other specified complication E10.69 ; Diabetic peripheral neuropathy E11.42 and End stage renal disease N18.6 [facility] [address] [facility] [id number] [address] [place] [phone] Apr, Bronchitis J40 [facility] [address] [facility] [id number] [address] [place] [phone] Apr, Other bursal cyst, left elbo w M71.322 [facility] [address] [place] [id number] [address] [place] [id number] Apr, [facility] [address] [facility] [id number] [address] [place] [phone] Apr, Other bursal cyst, left elbo w M71.322 [facility] [address] [place] [id number] [address] [place] [phone] Mar, [facility] [address] [id number] [address] [place] [id number] Mar, Rib pain R07.81 and Type 1 d iabetes mellitus with other specified complication E10.69 [facility] [address] [id number] [address] [place] [id number] Feb, [facility] [address] [id number] [address] [place] [phone] Feb, [facility] [address] [id number] [address] [place] [phone] Dec, [facility] [address] [id number] [address] [place] [id number] Dec, [facility] [address] [id number] [address] [place] [id number] Nov, Type 1 diabetes mellitus wit h other specified complication E10.69 and End stage renal disease N18.6 [facility] [address] [id number] [address] [place] [phone] Nov, [facility] [address] [id number] [address] [place] [id number] Nov, [facility] [address] [id number] [address] [place] [phone] Nov, [facility] [address] [id number] [address] [place] [phone] Nov, [facility] [address] [id number] [address] [place] [id number] Nov, [facility] [address] [id number] [address] [place] [id number] Oct, [facility] [address] [id number] [address] [place] [phone] Oct, [facility] [address] [id number] [address] [place] [phone] September, [facility] [address] [id number] [address] [place] [id number] September, Type 1 diabetes mellitus wit h other specified complication E10.69 [facility] [address] [id number] [address] [place] [id number] September, [facility] [address] [id number] [address] [place] [phone] September, Diabetic peripheral neuropat hy E11.42 ; Type 1 diabetes mellitus with other specified complication E10.69 ; Chronic kidney disease, stage 3 (moderate) N18.3 and Incomplete tear of left rotator cuff M75.112 [facility] [address] [id number] [address] [place] [phone] September, [facility] [address] [id number] [address] [place] [id number] Aug, [facility] [address] [id number] [address] [place] [phone] Aug, [facility] [address] [id number] [address] [place] [id number] Aug, Other chronic pain G89.29 an d Pain in left shoulder M25.512 [facility] [address] [id number] [address] [place] [phone] Aug, Physical deconditioning R53. 81 ; Pain in right shoulder M25.511 and Other chronic pain G89.29 [facility] [address] [id number] [address] [place] [id number] Aug, [facility] [address] [id number] [address] [place] [phone] Jul, Type 1 diabetes mellitus wit h other specified complication E10.69 ; Diabetic peripheral neuropathy E11.42 and Physical deconditioning R53.81 [facility] [address] [id number] [address] [place] [phone] Jul, [facility] [address] [place] [id number] [address] [place] [phone] Jul, [facility] [address] [address] Jun, [facility] [address] [id number] Jun, Type 1 diabetes mellitus wit h other specified complication E10.69 ; Insomnia G47.00 and Diabetic peripheral neuropathy E11.42 [facility] [address] [address] Jun, [facility] [address] [phone] Jun, Physical deconditioning R53. 81 [facility] [address] [address] Jun, [facility] [address] [phone] May, [facility] [address] [phone] May, [facility] [address] [id number] May, [facility] [address] [id number] May, [facility] [address] [id number] May, [facility] [address] [address] May, Adjustment disorder with dep ressed mood F43.21 [facility] [address] [place] [id number] [address] [place] [id number] May, Type 1 diabetes mellitus wit h other specified complication E10.69 ; Anemia, unspecified type D64.9 ; Gastric peptic ulcer, acute K25.3 and Physical deconditioning R53.81 [facility] [address] [facility] [id number] [address] [place] [id number] May, [facility] [address] [facility] [id number] [address] [place] [id number] May, Type 1 diabetes mellitus wit h other specified complication E10.69 [facility] [address] [facility] [id number] [address] [place] [phone] May, [facility] [address] [facility] [id number] [address] [place] [phone] May, [facility] [address] [facility] [id number] [address] [place] [phone] May, [place] [address] [facility] [id number] [address] [place] [id number] May, [facility] [address] [facility] [id number] [address] [place] [address] May, Type 1 diabetes mellitus wit h other specified complication E10.69 ; Depression, unspecified depression type F32.9 ; Anemia, unspecified type D64.9 ; Diabetic peripheral neuropathy E11.42 ; Gastric peptic ulcer, acute K25.3 ; Primary insomnia F51.01 and Pneumonia J18.9 [place] [address] [facility] [id number] [address] [place] [phone] May, [facility] [address] [facility] [id number] [address] [place] [id number] May, IMMUNIZATIONS No Known Immunizations SOCIAL HISTORY [...]
--- OUTSIDE RECORDS SUMMARY | 2019-09-28 08:57 | XMS REPORT ---
Author Author Stef HARRELL Organization [facility] Address [address] [place] [address] Care Team Providers Care Burner Machine Operator Name Role Phone SARI HARRELL Unavailable PROBLEMS Type Condition ICD9-CM Code [id number] Code Onset Dates Condition S tatus SNOMED Code Problem Diabetic peripheral neuropathy E11.42 Active 500535830 Problem Type 1 diabetes mellitus with other specified complication E10.69 Active 10828225 Problem Primary insomnia F51.01 Active 397 2004 Problem Depression, unspecified depression type F32.9 Active 05727043 Problem Anemia, unspecified type D64.9 Activ e 685413012 Problem Falls frequently R29.6 Active 279 530849 Problem Bilateral hearing loss, unspecified hearing loss type H91.93 Active 40435315 Problem Other chronic pain G89.29 Active 8 8875273 Problem End stage renal disease N18.6 Active 54220003 Problem Major depression, chronic F34.1 Acti ve 473832045 Problem Chronic GERD K21.9 Active 9918697 09 ALLERGIES Substance Reaction Event Type Date Status Penicillin V Potassium Unknown Drug Allergy Jul, Activ e Codeine Sulfate Unknown Drug Allergy Jul, Active ENCOUNTERS Encounter Location Date Diagnosis [facility] [address] [facility] [place] [id number] [address] [place] [address] Oct, Type 1 diabetes mellitus wit h other specified complication E10.69 ; Diabetic peripheral neuropathy E11.42 and End stage renal disease N18.6 [facility] [address] [facility] [place] [id number] [address] [place] [address] Oct, [facility] [address] [facility] [place] [id number] [address] [place] [address] September, [facility] [address] [facility] [place] [id number] [address] [place] [address] Aug, Effusion of right elbow M25. 421 [facility] [address] [facility] [place] [id number] [address] [place] [address] Aug, Diabetic peripheral neuropat hy E11.42 [facility] [address] [facility] [place] [id number] [address] [place] [address] Jul, [facility] [address] [facility] [place] [id number] [address] [place] [address] Jul, Medicare annual wellness vis it, initial Z00.00 ; Diabetic peripheral neuropathy E11.42 ; End stage renal disease N18.6 ; Type 1 diabetes mellitus with other specified complication E10.69 ; Anemia, unspecified type D64.9 ; Falls frequently R29.6 ; Chronic GERD K21.9 ; Major depression, chronic F34.1 and Bilateral hearing loss, unspecified hearing loss type H91.93 [place] [address] [facility] [place] [id number] [address] [place] [address] Jun, [place] [address] [place] [id number] [address] [place] [address] Jun, Low back pain M54.5 and Prim linwood insomnia F51.01 [place] [address] [facility] [place] [id number] [address] [place] [address] May, Diabetic peripheral neuropat hy E11.42 [facility] [address] [facility] [place] [id number] [address] [place] [address] May, [place] [address] [facility] [place] [id number] [address] [place] [address] May, [facility] [address] [facility] [place] [id number] [address] [place] [address] May, [place] [address] [facility] [place] [id number] [address] [place] [address] May, Diabetic peripheral neuropat hy E11.42 ; Type 1 diabetes mellitus with other specified complication E10.69 ; Primary insomnia F51.01 ; Depression, unspecified depression type F32.9 ; End stage renal disease N18.6 ; Left foot drop M21.372 and Foot drop, right foot M21.371 [facility] [address] [id number] [address] [place] [address] Apr, [facility] [address] [id number] [address] [place] [address] Apr, [facility] [address] [id number] [address] [place] [address] Mar, Foot drop, left M21.372 and Foot drop, right M21.371 [facility] [address] [id number] [address] [place] [address] Mar, [facility] [address] [id number] [address] [place] [address] Feb, Type 1 diabetes mellitus wit h other specified complication E10.69 and Olecranon bursitis, unspecified laterality M70.20 [facility] [address] [facility] [place] [id number] [address] [place] [address] Feb, [facility] [address] [id number] [address] [place] [address] Feb, Diabetic peripheral neuropat hy E11.42 [facility] [address] [id number] [address] [place] [address] Jan, Type 1 diabetes mellitus wit h other specified complication E10.69 [facility] [address] [id number] [address] [place] [address] Dec, Type 1 diabetes mellitus wit h other specified complication E10.69 ; Primary insomnia F51.01 ; End stage renal disease N18.6 and Chronic GERD K21.9 [facility] [address] [id number] [address] [place] [address] Dec, [facility] [address] [id number] [address] [place] [address] Nov, [facility] [address] [id number] [address] [place] [address] Oct, Diabetic peripheral neuropat hy E11.42 [facility] [address] [id number] [address] [place] [address] Oct, [facility] [address] [id number] [address] [place] [address] September, Type 1 diabetes mellitus wit h other specified complication E10.69 [facility] [address] [id number] [address] [place] [address] September, Diabetic peripheral neuropat hy E11.42 [facility] [address] [id number] [address] [place] [address] September, Diabetic peripheral neuropat hy E11.42 ; Type 1 diabetes mellitus with other specified complication E10.69 and End stage renal disease N18.6 [facility] [address] [id number] [address] [place] [address] September, [facility] [address] [facility] [place] [id number] [address] [place] [address] September, [facility] [address] [facility] [place] [id number] [address] [place] [address] Aug, [facility] [address] [id number] [address] [place] [address] Aug, Low back pain, unspecified b ack pain laterality, unspecified chronicity, with sciatica presence unspecified M54.5 [facility] [address] [facility] [place] [id number] [address] [place] [address] Aug, [facility] [address] [facility] [place] [id number] [address] [place] [address] Jul, [facility] [address] [facility] [place] [id number] [address] [place] [address] Jul, Low back pain M54.5 ; Other chronic pain G89.29 ; Type 1 diabetes mellitus with other specified complication E10.69 ; Diabetic peripheral neuropathy E11.42 ; Left foot drop M21.372 and Foot drop, right foot M21.371 [facility] [address] [facility] [place] [id number] [address] [place] [address] Jul, [facility] [address] [facility] [place] [id number] [address] [place] [address] Jul, [facility] [address] [facility] [place] [id number] [address] [place] [address] Jun, Low back pain, unspecified b ack pain laterality, unspecified chronicity, with sciatica presence unspecified M54.5 [facility] [address] [facility] [place] [id number] [address] [place] [address] Jun, [facility] [address] [facility] [place] [id number] [address] [place] [address] Jun, [facility] [address] [facility] [place] [id number] [address] [place] [address] Jun, [facility] [address] [place] [id number] [address] [place] [address] May, Type 1 diabetes mellitus wit h other specified complication E10.69 ; Diabetic peripheral neuropathy E11.42 and End stage renal disease N18.6 [facility] [id number] [place] [address] Apr, Bronchitis J40 [facility] [address] [facility] [place] [id number] [address] [place] [address] Apr, Other bursal cyst, left elbo w M71.322 [facility] [id number] [place] [address] Apr, [facility] [address] [facility] [place] [id number] [address] [place] [address] Apr, Other bursal cyst, left elbo w M71.322 [facility] [address] [place] [id number] [address] [place] [address] Mar, [facility] [address] [facility] [place] [id number] [address] [place] [address] Mar, Rib pain R07.81 and Type 1 d iabetes mellitus with other specified complication E10.69 [facility] [address] [id number] [address] [place] [address] Feb, [facility] [address] [id number] [address] [place] [address] Feb, [facility] [address] [id number] [address] [place] [address] Dec, [facility] [address] [id number] [address] [place] [address] Dec, [facility] [address] [id number] [address] [place] [address] Nov, Type 1 diabetes mellitus wit h other specified complication E10.69 and End stage renal disease N18.6 [facility] [address] [id number] [address] [place] [address] Nov, [facility] [address] [id number] [address] [place] [address] Nov, [facility] [address] [id number] [address] [place] [address] Nov, [facility] [address] [id number] [address] [place] [address] Nov, [facility] [address] [id number] [address] [place] [address] Nov, [facility] [address] [id number] [address] [place] [address] Oct, [facility] [address] [id number] [address] [place] [address] Oct, [facility] [address] [id number] [address] [place] [address] September, [facility] [address] [id number] [address] [place] [address] September, Type 1 diabetes mellitus wit h other specified complication E10.69 [facility] [address] [id number] [address] [place] [address] September, [facility] [address] [id number] [address] [place] [address] September, Diabetic peripheral neuropat hy E11.42 ; Type 1 diabetes mellitus with other specified complication E10.69 ; Chronic kidney disease, stage 3 (moderate) N18.3 and Incomplete tear of left rotator cuff M75.112 [facility] [address] [id number] [address] [place] [address] September, [facility] [address] [id number] [address] [place] [address] Aug, [facility] [address] [id number] [address] [place] [address] Aug, [facility] [address] [id number] [address] [place] [address] Aug, Other chronic pain G89.29 an d Pain in left shoulder M25.512 [facility] [address] [id number] [address] [place] [address] Aug, Physical deconditioning R53. 81 ; Pain in right shoulder M25.511 and Other chronic pain G89.29 [facility] [address] [id number] [address] [place] [address] Aug, [facility] [address] [id number] [address] [place] [address] Jul, Type 1 diabetes mellitus wit h other specified complication E10.69 ; Diabetic peripheral neuropathy E11.42 and Physical deconditioning R53.81 [facility] [address] [id number] [address] [place] [address] Jul, [facility] [address] [id number] [address] [place] [address] Jul, [facility] [address] [id number] [address] [place] [address] Jun, [facility] [address] [id number] [address] [place] [phone] 15 Jun, 2015 Type 1 diabetes mellitus wit h other specified complication E10.69 ; Insomnia G47.00 and Diabetic peripheral neuropathy E11.42 [facility] [address] [facility] [place] [id number] [address] [place] [phone] 04 Jun, 2015 [facility] [address] [facility] [place] [id number] [address] [place] [address] Jun, Physical deconditioning R53. 81 [facility] [address] [facility] [place] [id number] [address] [place] [address] Jun, [facility] [address] [facility] [place] [id number] [address] [place] [phone] May, [facility] [address] [place] [id number] [address] [place] [address] May, [facility] [address] [address] May, [facility] [address] [place] [id number] [address] [place] [address] May, [facility] [address] [place] [id number] [address] [place] [address] May, [facility] [address] [place] [id number] [address] [place] [address] May, Adjustment disorder with dep ressed mood F43.21 [facility] [address] [place] [id number] [address] [place] [address] May, Type 1 diabetes mellitus wit h other specified complication E10.69 ; Anemia, unspecified type D64.9 ; Gastric peptic ulcer, acute K25.3 and Physical deconditioning R53.81 [facility] [address] [facility] [place] [id number] [address] [place] [address] May, [facility] [address] [place] [id number] [address] [place] [address] May, Type 1 diabetes mellitus wit h other specified complication E10.69 [facility] [address] [facility] [place] [id number] [address] [place] [address] May, [place] [address] [facility] [place] [id number] [address] [place] [address] May, [facility] [address] [facility] [place] [id number] [address] [place] [address] May, [place] [address] [facility] [place] [id number] [address] [place] [phone] May, [place] [address] [facility] [place] [id number] [address] [place] [address] May, Type 1 diabetes mellitus wit h other specified complication E10.69 ; Depression, unspecified depression type F32.9 ; Anemia, unspecified type D64.9 ; Diabetic peripheral neuropathy E11.42 ; Gastric peptic ulcer, acute K25.3 ; Primary insomnia F51.01 and Pneumonia J18.9 [place] [address] [facility] [place] [id number] [address] [place] [address] May, [place] [address] [facility] [place] [id number] [address] [place] [address] May, IMMUNIZATIONS No Known Immunizations SOCIAL HISTORY Never Assessed REASON FOR VISIT Medicare AW - Initial Visit - JAIME Sanchez PLAN OF CARE Activity Details Follow Up 1 Year Reason: VITAL SIGNS Height 66 in 2017-08-03 Weight 216.5 lbs 2017-08-03 Temperature 97.8 degrees Fahrenheit 2017-08-03 Heart Rate 88 bpm 2017-08-03 Respiratory Rate 20 2017-08-03 BMI 34.94 kg/m2 2017-08-03 Blood pressure systolic 130 mmHg 2017-08-03 Blood pressure diastolic 68 mmHg 2017-08-03 MEDICATIONS Medication Instructions Dosage Frequency Start Date End Date Duration S tatus Prozac 20 MG Orally Once a day 1 capsule in the morning 24h Active Claritin 10 mg Orally Once a day 1 tablet 24h May, 9 0 days Not-Taking Bumetanide 2 MG Orally Once a day 1 tablet 24h Active Ventolin HFA 108 (90 Base) MCG/ACT Inhalation every 6 hrs 2 puffs a s needed 6h Apr, Not-Taking Tramadol HCl 50 mg Orally 3 times a day 1 tablet as needed 8h 2 7 Jul, 2016 28 days Active Test strips as directed Feb, Feb, 90 day s Not-Taking Glucocard Expression Monitor w/Device as directed Mar Not-Taking Lyrica 75 MG Orally Three times a day 1 capsule 8h 30 days Active Omeprazole 40 mg Orally Once a day 1 capsule 24h 90 days Active Trazodone HCl 100 MG Orally Once a day 1 tablet at bedtime as neede d 24h Dec, 90 days Active Stool Softener 100 MG Orally Once a day 1 capsule as needed 24h Active NovoLog 100 UNIT/ML per pump May, Active Calcium Acetate (Phos Binder) 667 MG Orally Three times a day 1 tablet 8 h Active Glucocard Expression Test - test blood sugar 8h Mar, 6 Not-Taking Glucagon Emergency 1 MG Injection one time as directed September, 017 1 dose Not-Taking RESULTS No Results PROCEDURES Procedure Date Ordered Result Body Site ANNUAL [facility] VST; PERSNL PPS INIT August 03, 2017 FALL RISK ASSESSMENT DOCD August 03, 2017 CLIN DEPRESSION SCREEN DOC August 03, 2017 PT TOBACCO SCREEN RCVD TLK August 03, 2017 INSTRUCTIONS MEDICATIONS ADMINISTERED No Known Medications MEDICAL [...]
--- OUTSIDE RECORDS SUMMARY | 2019-09-28 08:57 | XMS REPORT ---
Author Author Stef BAILEY Organization [facility] Address [address] [place] [address] Care Team Providers Care Digital Marketing Apprentice Name Role Phone DOUGLAS BAILEY Unavailable PROBLEMS Type Condition ICD9-CM Code CZN93-TH Code Onset Dates Condition S tatus SNOMED Code Problem Diabetic peripheral neuropathy E11.42 Active 411508245 Problem Type 1 diabetes mellitus with other specified complication E10.69 Active 91182901 Problem Primary insomnia F51.01 Active 397 2004 Problem Depression, unspecified depression type F32.9 Active 96971363 Problem Anemia, unspecified type D64.9 Activ e 349363488 Problem Falls frequently R29.6 Active 279 773415 Problem Bilateral hearing loss, unspecified hearing loss type H91.93 Active 02668195 Problem Other chronic pain G89.29 Active 8 1805054 Problem End stage renal disease N18.6 Active 17680432 Problem Major depression, chronic F34.1 Acti ve 176743922 Problem Chronic GERD K21.9 Active 8448200 09 ALLERGIES Substance Reaction Event Type Date Status Penicillin V Potassium Unknown Drug Allergy Aug, Activ e Codeine Sulfate Unknown Drug Allergy Aug, Active ENCOUNTERS Encounter Location Date Diagnosis [facility] [address] [facility] [id number] [address] [place] [id number] Nov, [facility] [address] [facility] [id number] [address] [place] [id number] Nov, Diabetic peripheral neuropat hy E11.42 [facility] [address] [facility] [id number] [address] [place] [id number] Oct, Type 1 diabetes mellitus wit h other specified complication E10.69 ; Diabetic peripheral neuropathy E11.42 and End stage renal disease N18.6 [facility] [address] [facility] [id number] [address] [place] [id number] Oct, [facility] [address] [facility] [id number] [address] [place] [id number] September, [facility] [address] [facility] [id number] [address] [place] [id number] Aug, Effusion of right elbow M25. 421 [facility] [address] [facility] [id number] [address] [place] [id number] Aug, Diabetic peripheral neuropat hy E11.42 [facility] [address] [place] [id number] [address] [place] [id number] Jul, [facility] [address] [place] [id number] [address] [place] [id number] Jul, Medicare annual wellness vis it, initial Z00.00 ; Diabetic peripheral neuropathy E11.42 ; End stage renal disease N18.6 ; Type 1 diabetes mellitus with other specified complication E10.69 ; Anemia, unspecified type D64.9 ; Falls frequently R29.6 ; Chronic GERD K21.9 ; Major depression, chronic F34.1 and Bilateral hearing loss, unspecified hearing loss type H91.93 [facility] [id number] [place] [address] Jun, [facility] [address] [place] [id number] [address] [place] [id number] Jun, Low back pain M54.5 and Prim linwood insomnia F51.01 [facility] [address] [place] [id number] [address] [place] [id number] May, Diabetic peripheral neuropat hy E11.42 [facility] [address] [facility] [id number] [address] [place] [phone] May, [facility] [address] [place] [id number] [address] [place] [id number] May, [facility] [address] [place] [id number] [address] [place] [id number] May, [facility] [address] [place] [id number] [address] [place] [address] May, Diabetic peripheral neuropat hy E11.42 ; Type 1 diabetes mellitus with other specified complication E10.69 ; Primary insomnia F51.01 ; Depression, unspecified depression type F32.9 ; End stage renal disease N18.6 ; Left foot drop M21.372 and Foot drop, right foot M21.371 [facility] [address] [id number] [address] [place] [id number] Apr, [facility] [address] [id number] [address] [place] [id number] Apr, [facility] [address] [id number] [address] [place] [address] Mar, Foot drop, left M21.372 and Foot drop, right M21.371 [facility] [address] [facility] [id number] [address] [place] [id number] Mar, [facility] [address] [id number] [address] [place] [id number] Feb, Type 1 diabetes mellitus wit h other specified complication E10.69 and Olecranon bursitis, unspecified laterality M70.20 [place] [address] [id number] [address] [place] [id number] Feb, [facility] [address] [facility] [id number] [address] [place] [id number] Feb, Diabetic peripheral neuropat hy E11.42 [facility] [address] [id number] [address] [place] [address] Jan, Type 1 diabetes mellitus wit h other specified complication E10.69 [facility] [address] [id number] [address] [place] [address] Dec, Type 1 diabetes mellitus wit h other specified complication E10.69 ; Primary insomnia F51.01 ; End stage renal disease N18.6 and Chronic GERD K21.9 [facility] [address] [id number] [address] [place] [id number] Dec, [facility] [address] [id number] [address] [place] [id number] Nov, [facility] [address] [id number] [address] [place] [address] Oct, Diabetic peripheral neuropat hy E11.42 [facility] [address] [id number] [address] [place] [address] Oct, [facility] [address] [id number] [address] [place] [address] September, Type 1 diabetes mellitus wit h other specified complication E10.69 [facility] [address] [id number] [address] [place] [id number] September, Diabetic peripheral neuropat hy E11.42 [facility] [address] [id number] [address] [place] [address] September, Diabetic peripheral neuropat hy E11.42 ; Type 1 diabetes mellitus with other specified complication E10.69 and End stage renal disease N18.6 [facility] [address] [id number] [address] [place] [address] September, [facility] [address] [id number] [address] [place] [id number] September, [facility] [address] [id number] [address] [place] [id number] Aug, [facility] [address] [id number] [address] [place] [id number] Aug, Low back pain, unspecified b ack pain laterality, unspecified chronicity, with sciatica presence unspecified M54.5 [facility] [address] [id number] [address] [place] [address] Aug, [facility] [address] [id number] [address] [place] [id number] Jul, [facility] [address] [id number] [address] [place] [id number] Jul, Low back pain M54.5 ; Other chronic pain G89.29 ; Type 1 diabetes mellitus with other specified complication E10.69 ; Diabetic peripheral neuropathy E11.42 ; Left foot drop M21.372 and Foot drop, right foot M21.371 [facility] [address] [facility] [id number] [address] [place] [id number] Jul, [facility] [address] [facility] [id number] [address] [place] [id number] Jul, [facility] [address] [facility] [id number] [address] [place] [id number] Jun, Low back pain, unspecified b ack pain laterality, unspecified chronicity, with sciatica presence unspecified M54.5 [facility] [address] [facility] [id number] [address] [place] [id number] Jun, [facility] [address] [place] [id number] [address] [place] [id number] Jun, [facility] [address] [place] [id number] [address] [place] [id number] Jun, [facility] [address] [facility] [id number] [address] [place] [id number] May, Type 1 diabetes mellitus wit h other specified complication E10.69 ; Diabetic peripheral neuropathy E11.42 and End stage renal disease N18.6 [facility] [address] [facility] [id number] [address] [place] [id number] Apr, Bronchitis J40 [facility] [address] [facility] [id number] [address] [place] [id number] Apr, Other bursal cyst, left elbo w M71.322 [facility] [address] [facility] [id number] [address] [place] [id number] Apr, [facility] [address] [facility] [id number] [address] [place] [id number] Apr, Other bursal cyst, left elbo w M71.322 [facility] [address] [place] [id number] [address] [place] [id number] Mar, [facility] [address] [id number] [address] [place] [id number] Mar, Rib pain R07.81 and Type 1 d iabetes mellitus with other specified complication E10.69 [facility] [address] [id number] [address] [place] [phone] Feb, [facility] [address] [id number] [address] [place] [id number] Feb, [facility] [address] [id number] [address] [place] [id number] Dec, [facility] [address] [id number] [address] [place] [id number] Dec, [facility] [address] [id number] [address] [place] [id number] Nov, Type 1 diabetes mellitus wit h other specified complication E10.69 and End stage renal disease N18.6 [facility] [address] [id number] [address] [place] [id number] Nov, [facility] [address] [id number] [address] [place] [id number] Nov, [facility] [address] [id number] [address] [place] [phone] Nov, [facility] [address] [id number] [address] [place] [id number] Nov, [facility] [address] [id number] [address] [place] [id number] Nov, [facility] [address] [id number] [address] [place] [phone] Oct, [facility] [address] [id number] [address] [place] [id number] Oct, [facility] [address] [id number] [address] [place] [id number] September, [facility] [address] [id number] [address] [place] [id number] September, Type 1 diabetes mellitus wit h other specified complication E10.69 [facility] [address] [id number] [address] [place] [id number] September, [facility] [address] [id number] [address] [place] [address] September, Diabetic peripheral neuropat hy E11.42 ; Type 1 diabetes mellitus with other specified complication E10.69 ; Chronic kidney disease, stage 3 (moderate) N18.3 and Incomplete tear of left rotator cuff M75.112 [facility] [address] [id number] [address] [place] [id number] September, [facility] [address] [id number] [address] [place] [id number] Aug, [facility] [address] [id number] [address] [place] [id number] Aug, [facility] [address] [id number] [address] [place] [address] Aug, Other chronic pain G89.29 an d Pain in left shoulder M25.512 [facility] [address] [id number] [address] [place] [id number] Aug, Physical deconditioning R53. 81 ; Pain in right shoulder M25.511 and Other chronic pain G89.29 [facility] [address] [id number] [address] [place] [id number] Aug, [facility] [address] [id number] [address] [place] [id number] Jul, Type 1 diabetes mellitus wit h other specified complication E10.69 ; Diabetic peripheral neuropathy E11.42 and Physical deconditioning R53.81 [facility] [address] [id number] [address] [place] [id number] Jul, [facility] [address] [id number] [address] [place] [id number] Jul, [facility] [address] [facility] [id number] [address] [place] [id number] Jun, [facility] [address] [facility] [id number] [address] [place] [id number] Jun, Type 1 diabetes mellitus wit h other specified complication E10.69 ; Insomnia G47.00 and Diabetic peripheral neuropathy E11.42 [facility] [address] [facility] [id number] [address] [place] [id number] Jun, [facility] [address] [facility] [id number] [address] [place] [address] Jun, Physical deconditioning R53. 81 [facility] [address] [place] [id number] [address] [place] [address] Jun, [facility] [address] [place] [id number] [address] [place] [address] May, [facility] [address] [place] [id number] [address] [place] [address] May, [facility] [address] [place] [id number] [address] [place] [address] May, [facility] [address] [place] [id number] [address] [place] [id number] May, [facility] [id number] [place] [address] May, [facility] [address] [place] [id number] [address] [place] [address] May, Adjustment disorder with dep ressed mood F43.21 [facility] [address] [place] [id number] [address] [place] [address] May, Type 1 diabetes mellitus wit h other specified complication E10.69 ; Anemia, unspecified type D64.9 ; Gastric peptic ulcer, acute K25.3 and Physical deconditioning R53.81 [facility] [address] [place] [id number] [address] [place] [id number] May, [facility] [address] [id number] [address] [place] [phone] May, Type 1 diabetes mellitus wit h other specified complication E10.69 [facility] [address] [id number] [address] [place] [id number] May, [facility] [address] [facility] [id number] [address] [place] [phone] May, [facility] [address] [id number] [address] [place] [id number] May, [facility] [address] [facility] [id number] [address] [place] [id number] May, [facility] [address] [facility] [id number] [address] [place] [id number] May, Type 1 diabetes mellitus wit h other specified complication E10.69 ; Depression, unspecified depression type F32.9 ; Anemia, unspecified type D64.9 ; Diabetic peripheral neuropathy E11.42 ; Gastric peptic ulcer, acute K25.3 ; Primary insomnia F51.01 and Pneumonia J18.9 [facility] [address] [facility] [id number] [address] [place] [phone] May, [facility] [address] [facility] [id number] [address] [place] [id number] May, IMMUNIZATIONS No Known Immunizations SOCIAL HISTORY Never Assessed REASON FOR VISIT Elbow Drainage WB-MA PLAN OF CARE Activity Details Future/Pending Procedure ASPIRATE/INJ GANGLION CYST VITAL SIGNS Height 66 in 2017-08-23 Weight 215 lbs 2017-08-23 Temperature 98.2 degrees Fahrenheit 2017-08-23 Heart Rate 84 bpm 2017-08-23 Respiratory Rate 20 2017-08-23 BMI 34.70 kg/m2 2017-08-23 Blood pressure systolic 138 mmHg 2017-08-23 Blood pressure diastolic 78 mmHg 2017-08-23 MEDICATIONS Medication Instructions Dosage Frequency Start Date End Date Duration S tatus Flomax 0.4 MG Orally Once a day 1 capsule 24h Active Glucocard Expression Monitor w/Device as directed Mar Not-Taking Ventolin HFA 108 (90 Base) MCG/ACT Inhalation every 6 hrs 2 puffs a s needed 6h Apr, Not-Taking Lyrica 75 MG Orally Three times a day 1 capsule 8h 30 days Active Test strips as directed Feb, Feb, 90 day s Not-Taking NovoLog 100 UNIT/ML per pump May, Active Tramadol HCl 50 mg Orally 3 times a day 1 tablet as needed 8h 2 7 Jul, 2016 28 days Active Glucocard Expression Test - test blood sugar 8h Mar, 6 Not-Taking Glucagon Emergency 1 MG Injection one time as directed September, 017 1 dose Not-Taking Stool Softener 100 MG Orally Once a day 1 capsule as needed 24h Active Prozac 20 MG Orally Once a day 1 capsule in the morning 24h Active Claritin 10 mg Orally Once a day 1 tablet 24h May, 9 0 days Not-Taking Bumetanide 2 MG Orally Once a day 1 tablet 24h Not-Taking Trazodone HCl 100 MG Orally Once a day 1 tablet at bedtime as neede d 24h Dec, 90 days Active Omeprazole 40 mg Orally Once a day 1 capsule 24h 90 days Active Calcium Acetate (Phos Binder) 667 MG Orally Three times a day 1 tablet 8 h Active RESULTS No Results PROCEDURES Procedure Date Ordered Result Body Site ASPIRATE/INJ GANGLION CYST August 23, 2017 [facility] VISIT ESTABLISHED PATIENT August 23, 2017 [facility] [employer] August 23, 2017 INSTRUCTIONS MEDICATIONS ADMINISTERED No Known Medications [...]
--- OUTSIDE RECORDS SUMMARY | 2019-09-28 08:57 | XMS REPORT ---
Author Author Stef HARRELL Organization [facility] Address [address] [place] [address] Care Team Providers Care Devops Consultant Name Role Phone SARI HARRELL Unavailable PROBLEMS Type Condition ICD9-CM Code HOM11-JU Code Onset Dates Condition S tatus SNOMED Code Problem Diabetic peripheral neuropathy E11.42 Active 366342773 Problem Type 1 diabetes mellitus with other specified complication E10.69 Active 82930706 Problem Primary insomnia F51.01 Active 397 2004 Problem Depression, unspecified depression type F32.9 Active 56581680 Problem Anemia, unspecified type D64.9 Activ e 047802412 Problem Falls frequently R29.6 Active 279 339185 Problem Bilateral hearing loss, unspecified hearing loss type H91.93 Active 65911561 Problem Other chronic pain G89.29 Active 8 4428410 Problem End stage renal disease N18.6 Active 82636811 Problem Major depression, chronic F34.1 Acti ve 419268023 Problem Chronic GERD K21.9 Active 4372696 09 ALLERGIES No Information ENCOUNTERS Encounter Location Date Diagnosis [facility] [address] [facility] [id number] [address] [place] [id number] Dec, [facility] [address] [facility] [id number] [address] [place] [id number] Nov, [facility] [address] [facility] [id number] [address] [place] [id number] Nov, Diabetic peripheral neuropat hy E11.42 [facility] [address] [facility] [id number] [address] [place] [id number] Oct, Type 1 diabetes mellitus wit h other specified complication E10.69 ; Diabetic peripheral neuropathy E11.42 and End stage renal disease N18.6 [facility] [address] [facility] [id number] [address] [place] [id number] Oct, [facility] [address] [facility] [id number] [address] [place] [phone] September, [facility] [address] [facility] [id number] [address] [place] [address] Aug, Effusion of right elbow M25. 421 [facility] [address] [place] [id number] [address] [place] [id number] Aug, Diabetic peripheral neuropat hy E11.42 [facility] [address] [facility] [id number] [address] [place] [id number] Jul, [facility] [address] [facility] [id number] [address] [place] [id number] Jul, Medicare annual wellness vis it, initial Z00.00 ; Diabetic peripheral neuropathy E11.42 ; End stage renal disease N18.6 ; Type 1 diabetes mellitus with other specified complication E10.69 ; Anemia, unspecified type D64.9 ; Falls frequently R29.6 ; Chronic GERD K21.9 ; Major depression, chronic F34.1 and Bilateral hearing loss, unspecified hearing loss type H91.93 [facility] [address] [facility] [id number] [address] [place] [phone] Jun, [facility] [address] [place] [id number] [address] [place] [phone] Jun, Low back pain M54.5 and Prim linwood insomnia F51.01 [facility] [address] [facility] [id number] [address] [place] [phone] May, Diabetic peripheral neuropat hy E11.42 [facility] [address] [facility] [id number] [address] [place] [phone] May, [facility] [address] [facility] [id number] [address] [place] [phone] May, [facility] [address] [facility] [id number] [address] [place] [phone] May, [facility] [address] [facility] [id number] [address] [place] [id number] May, Diabetic peripheral neuropat hy E11.42 ; Type 1 diabetes mellitus with other specified complication E10.69 ; Primary insomnia F51.01 ; Depression, unspecified depression type F32.9 ; End stage renal disease N18.6 ; Left foot drop M21.372 and Foot drop, right foot M21.371 [facility] [address] [facility] [id number] [address] [place] [id number] Apr, [facility] [address] [facility] [id number] [address] [place] [id number] Apr, [facility] [address] [facility] [id number] [address] [place] [id number] Mar, Foot drop, left M21.372 and Foot drop, right M21.371 [place] [address] [place] [id number] [address] [place] [id number] Mar, [facility] [address] [facility] [id number] [address] [place] [id number] Feb, Type 1 diabetes mellitus wit h other specified complication E10.69 and Olecranon bursitis, unspecified laterality M70.20 [facility] [address] [facility] [id number] [address] [place] [id number] Feb, [place] [address] [facility] [id number] [address] [place] [id number] Feb, Diabetic peripheral neuropat hy E11.42 [facility] [address] [facility] [id number] [address] [place] [id number] Jan, Type 1 diabetes mellitus wit h other specified complication E10.69 [facility] [address] [facility] [id number] [address] [place] [id number] Dec, Type 1 diabetes mellitus wit h other specified complication E10.69 ; Primary insomnia F51.01 ; End stage renal disease N18.6 and Chronic GERD K21.9 [facility] [address] [facility] [id number] [address] [place] [phone] Dec, [place] [address] [id number] [address] [place] [id number] Nov, [facility] [address] [id number] [address] [place] [id number] Oct, Diabetic peripheral neuropat hy E11.42 [facility] [address] [id number] [address] [place] [id number] Oct, [facility] [address] [id number] [address] [place] [address] September, Type 1 diabetes mellitus wit h other specified complication E10.69 [facility] [address] [id number] [address] [place] [id number] September, Diabetic peripheral neuropat hy E11.42 [facility] [address] [id number] [address] [place] [id number] September, Diabetic peripheral neuropat hy E11.42 ; Type 1 diabetes mellitus with other specified complication E10.69 and End stage renal disease N18.6 [facility] [address] [id number] [address] [place] [phone] September, [facility] [address] [id number] [address] [place] [phone] September, [facility] [address] [id number] [address] [place] [id number] Aug, [facility] [address] [id number] [address] [place] [id number] Aug, Low back pain, unspecified b ack pain laterality, unspecified chronicity, with sciatica presence unspecified M54.5 [facility] [address] [id number] [address] [place] [phone] Aug, [facility] [address] [id number] [address] [place] [id number] Jul, [facility] [address] [id number] [address] [place] [id number] Jul, Low back pain M54.5 ; Other chronic pain G89.29 ; Type 1 diabetes mellitus with other specified complication E10.69 ; Diabetic peripheral neuropathy E11.42 ; Left foot drop M21.372 and Foot drop, right foot M21.371 [facility] [address] [facility] [id number] [address] [place] [id number] Jul, [facility] [address] [facility] [id number] [address] [place] [id number] Jul, [facility] [address] [facility] [id number] [address] [place] [phone] Jun, Low back pain, unspecified b ack pain laterality, unspecified chronicity, with sciatica presence unspecified M54.5 [facility] [address] [facility] [id number] [address] [place] [phone] Jun, [facility] [address] [place] [id number] [address] [place] [id number] Jun, [facility] [address] [place] [id number] [address] [place] [id number] Jun, [facility] [address] [place] [id number] [address] [place] [id number] May, Type 1 diabetes mellitus wit h other specified complication E10.69 ; Diabetic peripheral neuropathy E11.42 and End stage renal disease N18.6 [facility] [address] [facility] [id number] [address] [place] [id number] Apr, Bronchitis J40 [facility] [address] [facility] [id number] [address] [place] [id number] Apr, Other bursal cyst, left elbo w M71.322 [facility] [address] [place] [id number] [address] [place] [id number] Apr, [facility] [address] [facility] [id number] [address] [place] [address] Apr, Other bursal cyst, left elbo w M71.322 [facility] [address] [place] [id number] [address] [place] [id number] Mar, [facility] [address] [id number] [address] [place] [id number] Mar, Rib pain R07.81 and Type 1 d iabetes mellitus with other specified complication E10.69 [facility] [address] [id number] [address] [place] [id number] Feb, [facility] [address] [id number] [address] [place] [phone] Feb, [facility] [address] [id number] [address] [place] [id number] Dec, [facility] [address] [id number] [address] [place] [id number] Dec, [facility] [address] [id number] [address] [place] [phone] Nov, Type 1 diabetes mellitus wit h other specified complication E10.69 and End stage renal disease N18.6 [facility] [address] [id number] [address] [place] [id number] Nov, [facility] [address] [id number] [address] [place] [id number] Nov, [facility] [address] [id number] [address] [place] [id number] Nov, [facility] [address] [id number] [address] [place] [phone] Nov, [facility] [address] [id number] [address] [place] [phone] Nov, [facility] [address] [id number] [address] [place] [id number] Oct, [facility] [address] [id number] [address] [place] [id number] Oct, [facility] [address] [id number] [address] [place] [phone] September, [facility] [address] [id number] [address] [place] [phone] September, Type 1 diabetes mellitus wit h other specified complication E10.69 [facility] [address] [id number] [address] [place] [id number] September, [facility] [address] [id number] [address] [place] [id number] September, Diabetic peripheral neuropat hy E11.42 ; Type 1 diabetes mellitus with other specified complication E10.69 ; Chronic kidney disease, stage 3 (moderate) N18.3 and Incomplete tear of left rotator cuff M75.112 [facility] [address] [id number] [address] [place] [address] September, [facility] [address] [id number] [address] [place] [id number] Aug, [facility] [address] [id number] [address] [place] [phone] Aug, [facility] [address] [id number] [address] [place] [phone] Aug, Other chronic pain G89.29 an d Pain in left shoulder M25.512 [facility] [address] [id number] [address] [place] [id number] Aug, Physical deconditioning R53. 81 ; Pain in right shoulder M25.511 and Other chronic pain G89.29 [facility] [address] [id number] [address] [place] [phone] Aug, [facility] [address] [id number] [address] [place] [id number] Jul, Type 1 diabetes mellitus wit h other specified complication E10.69 ; Diabetic peripheral neuropathy E11.42 and Physical deconditioning R53.81 [facility] [address] [id number] [address] [place] [id number] Jul, [facility] [address] [place] [id number] [address] [place] [address] Jul, [facility] [address] [id number] Jun, [facility] [address] [id number] Jun, Type 1 diabetes mellitus wit h other specified complication E10.69 ; Insomnia G47.00 and Diabetic peripheral neuropathy E11.42 [facility] [address] [address] Jun, [facility] [address] [address] Jun, Physical deconditioning R53. 81 [facility] [address] [id number] Jun, [facility] [address] [address] May, [facility] [address] [address] May, [facility] [address] [id number] May, [facility] [address] [address] May, [facility] [address] [id number] May, [facility] [address] [address] May, Adjustment disorder with dep ressed mood F43.21 [facility] [address] [place] [id number] [address] [place] [id number] May, Type 1 diabetes mellitus wit h other specified complication E10.69 ; Anemia, unspecified type D64.9 ; Gastric peptic ulcer, acute K25.3 and Physical deconditioning R53.81 [facility] [address] [facility] [id number] [address] [place] [address] May, [facility] [address] [facility] [id number] [address] [place] [address] May, Type 1 diabetes mellitus wit h other specified complication E10.69 [facility] [address] [facility] [id number] [address] [place] [id number] May, [facility] [address] [facility] [id number] [address] [place] [address] May, [facility] [address] [facility] [id number] [address] [place] [phone] May, [place] [address] [facility] [id number] [address] [place] [id number] May, [facility] [address] [facility] [id number] [address] [place] [id number] May, Type 1 diabetes mellitus wit h other specified complication E10.69 ; Depression, unspecified depression type F32.9 ; Anemia, unspecified type D64.9 ; Diabetic peripheral neuropathy E11.42 ; Gastric peptic ulcer, acute K25.3 ; Primary insomnia F51.01 and Pneumonia J18.9 [place] [id number] [facility] [id number] [address] [place] [address] May, [facility] [address] [facility] [id number] [address] [place] [id number] May, IMMUNIZATIONS No Known Immunizations SOCIAL HISTORY Never Assessed REASON FOR VISIT Hospital Admission PLAN OF CARE VITAL SIGNS [...]
--- OUTSIDE RECORDS SUMMARY | 2019-09-28 08:57 | XMS REPORT ---
Author Author Stef HARRELL Organization [facility] Address [address] [place] [address] Care Team Providers Care Mail Carrier And Clerk Name Role Phone SARI HARRELL Unavailable PROBLEMS Type Condition ICD9-CM Code [id number] Code Onset Dates Condition S tatus SNOMED Code Problem Diabetic peripheral neuropathy E11.42 Active 602335784 Problem Type 1 diabetes mellitus with other specified complication E10.69 Active 27086026 Problem Primary insomnia F51.01 Active 397 2004 Problem Depression, unspecified depression type F32.9 Active 67795422 Problem Anemia, unspecified type D64.9 Activ e 327940016 Problem Falls frequently R29.6 Active 279 774202 Problem Bilateral hearing loss, unspecified hearing loss type H91.93 Active 44216282 Problem Other chronic pain G89.29 Active 8 4082940 Problem End stage renal disease N18.6 Active 26783776 Problem Major depression, chronic F34.1 Acti ve 127248717 Problem Chronic GERD K21.9 Active 3331274 09 ALLERGIES No Information ENCOUNTERS Encounter Location Date Diagnosis [facility] [address] [facility] [id number] [address] [place] [phone] Nov, [facility] [address] [facility] [id number] [address] [place] [phone] Nov, Diabetic peripheral neuropat hy E11.42 [facility] [address] [facility] [id number] [address] [place] [phone] Oct, Type 1 diabetes mellitus wit h other specified complication E10.69 ; Diabetic peripheral neuropathy E11.42 and End stage renal disease N18.6 [facility] [address] [facility] [id number] [address] [place] [phone] Oct, [facility] [address] [facility] [id number] [address] [place] [phone] September, [facility] [address] [facility] [id number] [address] [place] [phone] Aug, Effusion of right elbow M25. 421 [facility] [address] [facility] [id number] [address] [place] [phone] Aug, Diabetic peripheral neuropat hy E11.42 [facility] [address] [facility] [id number] [address] [place] [phone] Jul, [facility] [address] [place] [id number] [address] [place] [phone] Jul, Medicare annual wellness vis it, initial Z00.00 ; Diabetic peripheral neuropathy E11.42 ; End stage renal disease N18.6 ; Type 1 diabetes mellitus with other specified complication E10.69 ; Anemia, unspecified type D64.9 ; Falls frequently R29.6 ; Chronic GERD K21.9 ; Major depression, chronic F34.1 and Bilateral hearing loss, unspecified hearing loss type H91.93 [place] [address] [facility] [id number] [address] [place] [phone] Jun, [place] [address] [facility] [id number] [address] [place] [phone] Jun, Low back pain M54.5 and Prim linwood insomnia F51.01 [facility] [address] [facility] [id number] [address] [place] [phone] May, Diabetic peripheral neuropat hy E11.42 [place] [address] [facility] [id number] [address] [place] [phone] May, [facility] [address] [facility] [id number] [address] [place] [phone] May, [facility] [address] [facility] [id number] [address] [place] [phone] May, [facility] [address] [facility] [id number] [address] [place] [phone] May, Diabetic peripheral neuropat hy E11.42 ; Type 1 diabetes mellitus with other specified complication E10.69 ; Primary insomnia F51.01 ; Depression, unspecified depression type F32.9 ; End stage renal disease N18.6 ; Left foot drop M21.372 and Foot drop, right foot M21.371 [place] [address] [facility] [id number] [address] [place] [phone] Apr, [facility] [address] [facility] [id number] [address] [place] [phone] Apr, [facility] [address] [facility] [id number] [address] [place] [address] Mar, Foot drop, left M21.372 and Foot drop, right M21.371 [place] [address] [place] [id number] [address] [place] [phone] Mar, [place] [address] [place] [id number] [address] [place] [phone] Feb, Type 1 diabetes mellitus wit h other specified complication E10.69 and Olecranon bursitis, unspecified laterality M70.20 [place] [address] [place] [id number] [address] [place] [phone] Feb, [place] [address] [place] [id number] [address] [place] [phone] Feb, Diabetic peripheral neuropat hy E11.42 [place] [address] [place] [id number] [address] [place] [phone] Jan, Type 1 diabetes mellitus wit h other specified complication E10.69 [place] [address] [facility] [id number] [address] [place] [phone] Dec, Type 1 diabetes mellitus wit h other specified complication E10.69 ; Primary insomnia F51.01 ; End stage renal disease N18.6 and Chronic GERD K21.9 [facility] [address] [facility] [id number] [address] [place] [phone] Dec, [place] [address] [place] [id number] [address] [place] [phone] Nov, [place] [address] [id number] [address] [place] [phone] Oct, Diabetic peripheral neuropat hy E11.42 [facility] [address] [id number] [address] [place] [phone] Oct, [facility] [address] [id number] [address] [place] [id number] September, Type 1 diabetes mellitus wit h other specified complication E10.69 [facility] [address] [id number] [address] [place] [phone] September, Diabetic peripheral neuropat hy E11.42 [facility] [address] [id number] [address] [place] [phone] September, Diabetic peripheral neuropat hy E11.42 ; Type 1 diabetes mellitus with other specified complication E10.69 and End stage renal disease N18.6 [facility] [address] [id number] [address] [place] [phone] September, [facility] [address] [id number] [address] [place] [phone] September, [facility] [address] [id number] [address] [place] [phone] Aug, [facility] [address] [id number] [address] [place] [phone] Aug, Low back pain, unspecified b ack pain laterality, unspecified chronicity, with sciatica presence unspecified M54.5 [facility] [address] [id number] [address] [place] [phone] Aug, [facility] [address] [id number] [address] [place] [phone] Jul, [facility] [address] [facility] [id number] [address] [place] [phone] Jul, Low back pain M54.5 ; Other chronic pain G89.29 ; Type 1 diabetes mellitus with other specified complication E10.69 ; Diabetic peripheral neuropathy E11.42 ; Left foot drop M21.372 and Foot drop, right foot M21.371 [facility] [address] [facility] [id number] [address] [place] [phone] Jul, [facility] [address] [facility] [id number] [address] [place] [phone] Jul, [facility] [address] [facility] [id number] [address] [place] [phone] Jun, Low back pain, unspecified b ack pain laterality, unspecified chronicity, with sciatica presence unspecified M54.5 [facility] [address] [facility] [id number] [address] [place] [phone] Jun, [facility] [address] [place] [id number] [address] [place] [phone] Jun, [facility] [address] [place] [id number] [address] [place] [phone] Jun, [facility] [address] [place] [id number] [address] [place] [phone] May, Type 1 diabetes mellitus wit h other specified complication E10.69 ; Diabetic peripheral neuropathy E11.42 and End stage renal disease N18.6 [facility] [address] [place] [id number] [address] [place] [phone] Apr, Bronchitis J40 [facility] [address] [facility] [id number] [address] [place] [phone] Apr, Other bursal cyst, left elbo w M71.322 [facility] [address] [facility] [id number] [address] [place] [phone] Apr, [facility] [address] [place] [id number] [address] [place] [id number] Apr, Other bursal cyst, left elbo w M71.322 [facility] [address] [place] [id number] [address] [place] [phone] Mar, [facility] [address] [place] [id number] [address] [place] [phone] Mar, Rib pain R07.81 and Type 1 d iabetes mellitus with other specified complication E10.69 [facility] [address] [id number] [address] [place] [phone] Feb, [facility] [address] [id number] [address] [place] [phone] Feb, [facility] [address] [id number] [address] [place] [phone] Dec, [facility] [address] [id number] [address] [place] [phone] Dec, [facility] [address] [id number] [address] [place] [phone] Nov, Type 1 diabetes mellitus wit h other specified complication E10.69 and End stage renal disease N18.6 [facility] [address] [id number] [address] [place] [id number] Nov, [facility] [address] [id number] [address] [place] [phone] Nov, [facility] [address] [id number] [address] [place] [phone] Nov, [facility] [address] [id number] [address] [place] [phone] Nov, [facility] [address] [id number] [address] [place] [phone] Nov, [facility] [address] [id number] [address] [place] [phone] Oct, [facility] [address] [id number] [address] [place] [phone] Oct, [facility] [address] [id number] [address] [place] [phone] September, [facility] [address] [id number] [address] [place] [phone] September, Type 1 diabetes mellitus wit h other specified complication E10.69 [facility] [address] [id number] [address] [place] [phone] September, [facility] [address] [id number] [address] [place] [phone] September, Diabetic peripheral neuropat hy E11.42 ; Type 1 diabetes mellitus with other specified complication E10.69 ; Chronic kidney disease, stage 3 (moderate) N18.3 and Incomplete tear of left rotator cuff M75.112 [facility] [address] [id number] [address] [place] [phone] September, [facility] [address] [id number] [address] [place] [phone] Aug, [place] [address] [id number] [address] [place] [phone] Aug, [facility] [address] [id number] [address] [place] [phone] Aug, Other chronic pain G89.29 an d Pain in left shoulder M25.512 [facility] [address] [id number] [address] [place] [phone] Aug, Physical deconditioning R53. 81 ; Pain in right shoulder M25.511 and Other chronic pain G89.29 [facility] [address] [id number] [address] [place] [phone] Aug, [facility] [address] [id number] [address] [place] [phone] Jul, Type 1 diabetes mellitus wit h other specified complication E10.69 ; Diabetic peripheral neuropathy E11.42 and Physical deconditioning R53.81 [facility] [address] [id number] [address] [place] [phone] Jul, [facility] [address] [id number] [address] [place] [phone] Jul, [facility] [address] [id number] [address] [place] [phone] Jun, [facility] [address] [facility] [id number] [address] [place] [phone] Jun, Type 1 diabetes mellitus wit h other specified complication E10.69 ; Insomnia G47.00 and Diabetic peripheral neuropathy E11.42 [facility] [address] [facility] [id number] [address] [place] [phone] Jun, [facility] [address] [facility] [id number] [address] [place] [phone] Jun, Physical deconditioning R53. 81 [facility] [address] [place] [id number] [address] [place] [phone] Jun, [facility] [address] [place] [id number] [address] [place] [phone] May, [facility] [address] [place] [id number] [address] [place] [phone] May, [facility] [address] [facility] [id number] [address] [place] [phone] May, [facility] [address] [place] [id number] [address] [place] [phone] May, [facility] [address] [place] [id number] [address] [place] [phone] May, [facility] [address] [place] [id number] [address] [place] [phone] May, Adjustment disorder with dep ressed mood F43.21 [facility] [address] [facility] [id number] [address] [place] [phone] May, Type 1 diabetes mellitus wit h other specified complication E10.69 ; Anemia, unspecified type D64.9 ; Gastric peptic ulcer, acute K25.3 and Physical deconditioning R53.81 [facility] [address] [place] [id number] [address] [place] [phone] May, [facility] [address] [facility] [id number] [address] [place] [phone] May, Type 1 diabetes mellitus wit h other specified complication E10.69 [facility] [address] [facility] [id number] [address] [place] [phone] May, [facility] [address] [facility] [id number] [address] [place] [phone] May, [facility] [address] [facility] [id number] [address] [place] [phone] May, [facility] [address] [facility] [id number] [address] [place] [phone] May, [facility] [address] [facility] [id number] [address] [place] [phone] May, Type 1 diabetes mellitus wit h other specified complication E10.69 ; Depression, unspecified depression type F32.9 ; Anemia, unspecified type D64.9 ; Diabetic peripheral neuropathy E11.42 ; Gastric peptic ulcer, acute K25.3 ; Primary insomnia F51.01 and Pneumonia J18.9 [facility] [address] [facility] [id number] [address] [place] [phone] May, [facility] [address] [facility] [id number] [address] [place] [phone] May, IMMUNIZATIONS No Known Immunizations SOCIAL HISTORY Never Assessed REASON FOR VISIT Controlled Refill 08/22/17 PLAN OF CARE VITAL SIGNS MEDICATIONS Medication [...]
--- OUTSIDE RECORDS SUMMARY | 2019-09-28 08:57 | XMS REPORT ---
Author Author Stef BAILEY Organization [facility] Address [address] [place] [address] Care Team Providers Care Staff Nurse Anesthetist Name Role Phone DOUGLAS BAILEY Unavailable PROBLEMS Type Condition ICD9-CM Code [id number] Code Onset Dates Condition S tatus SNOMED Code Problem Diabetic peripheral neuropathy E11.42 Active 927537515 Problem Type 1 diabetes mellitus with other specified complication E10.69 Active 70925820 Problem Primary insomnia F51.01 Active 397 2004 Problem Depression, unspecified depression type F32.9 Active 15441967 Problem Anemia, unspecified type D64.9 Activ e 495263145 Problem Falls frequently R29.6 Active 279 241815 Problem Bilateral hearing loss, unspecified hearing loss type H91.93 Active 11873283 Problem Other chronic pain G89.29 Active 8 9750230 Problem End stage renal disease N18.6 Active 47290752 Problem Major depression, chronic F34.1 Acti ve 311940844 Problem Chronic GERD K21.9 Active 4412304 09 ALLERGIES No Information ENCOUNTERS Encounter Location Date Diagnosis [facility] [address] [facility] [id number] [address] [place] [address] 20 Oct, 2017 Type 1 diabetes mellitus wit h other specified complication E10.69 ; Diabetic peripheral neuropathy E11.42 and End stage renal disease N18.6 [facility] [address] [facility] [id number] [address] [place] [address] Oct, [facility] [address] [facility] [id number] [address] [place] [id number] September, [facility] [address] [facility] [id number] [address] [place] [address] Aug, Effusion of right elbow M25. 421 [facility] [address] [facility] [id number] [address] [place] [address] 13 Apr, 2018 Diabetic peripheral neuropat hy E11.42 [facility] [address] [facility] [id number] [address] [place] [address] Jul, [facility] [address] [place] [address] Jul, Medicare annual wellness vis it, initial Z00.00 ; Diabetic peripheral neuropathy E11.42 ; End stage renal disease N18.6 ; Type 1 diabetes mellitus with other specified complication E10.69 ; Anemia, unspecified type D64.9 ; Falls frequently R29.6 ; Chronic GERD K21.9 ; Major depression, chronic F34.1 and Bilateral hearing loss, unspecified hearing loss type H91.93 [place] [address] [facility] [id number] [address] [place] [address] Jun, [place] [address] [place] [id number] [place] [address] Jun, Low back pain M54.5 and Prim linwood insomnia F51.01 [place] [address] [place] [id number] [address] [place] [address] May, Diabetic peripheral neuropat hy E11.42 [place] [address] [place] [id number] [address] [place] [address] May, [place] [address] [place] [id number] [address] [place] [address] May, [place] [address] [place] [address] May, [place] [address] [place] [id number] [address] [place] [address] May, Diabetic peripheral neuropat hy E11.42 ; Type 1 diabetes mellitus with other specified complication E10.69 ; Primary insomnia F51.01 ; Depression, unspecified depression type F32.9 ; End stage renal disease N18.6 ; Left foot drop M21.372 and Foot drop, right foot M21.371 [place] [address] [place] [id number] [address] [place] [address] Apr, [facility] [address] [id number] [address] [place] [address] Apr, [facility] [address] [facility] [id number] [address] [place] [address] Mar, Foot drop, left M21.372 and Foot drop, right M21.371 [facility] [address] [facility] [id number] [address] [place] [address] Mar, [facility] [address] [facility] [id number] [address] [place] [address] Feb, Type 1 diabetes mellitus wit h other specified complication E10.69 and Olecranon bursitis, unspecified laterality M70.20 [facility] [address] [facility] [id number] [address] [place] [address] Feb, [facility] [address] [facility] [id number] [address] [place] [address] Feb, Diabetic peripheral neuropat hy E11.42 [facility] [address] [facility] [id number] [address] [place] [address] Jan, Type 1 diabetes mellitus wit h other specified complication E10.69 [facility] [address] [facility] [id number] [address] [place] [address] Dec, Type 1 diabetes mellitus wit h other specified complication E10.69 ; Primary insomnia F51.01 ; End stage renal disease N18.6 and Chronic GERD K21.9 [facility] [address] [facility] [id number] [address] [place] [address] Dec, [facility] [address] [facility] [id number] [address] [place] [address] Nov, [facility] [address] [facility] [id number] [address] [place] [address] Oct, Diabetic peripheral neuropat hy E11.42 [facility] [address] [facility] [id number] [address] [place] [address] Oct, [facility] [address] [place] [id number] [address] [place] [address] September, Type 1 diabetes mellitus wit h other specified complication E10.69 [facility] [address] [id number] [address] [place] [address] September, Diabetic peripheral neuropat hy E11.42 [facility] [address] [id number] [address] [place] [address] September, Diabetic peripheral neuropat hy E11.42 ; Type 1 diabetes mellitus with other specified complication E10.69 and End stage renal disease N18.6 [facility] [address] [id number] [address] [place] [address] September, [facility] [address] [id number] [address] [place] [address] September, [facility] [address] [id number] [address] [place] [address] Aug, [facility] [address] [id number] [address] [place] [address] Aug, Low back pain, unspecified b ack pain laterality, unspecified chronicity, with sciatica presence unspecified M54.5 [facility] [address] [id number] [address] [place] [address] Aug, [facility] [address] [id number] [address] [place] [phone] Jul, [facility] [address] [facility] [id number] [address] [place] [address] Jul, Low back pain M54.5 ; Other chronic pain G89.29 ; Type 1 diabetes mellitus with other specified complication E10.69 ; Diabetic peripheral neuropathy E11.42 ; Left foot drop M21.372 and Foot drop, right foot M21.371 [facility] [address] [id number] [address] [place] [address] Jul, [facility] [address] [facility] [id number] [address] [place] [address] Jul, [facility] [address] [facility] [id number] [address] [place] [address] Jun, Low back pain, unspecified b ack pain laterality, unspecified chronicity, with sciatica presence unspecified M54.5 [facility] [address] [facility] [id number] [address] [place] [address] Jun, [facility] [address] [facility] [id number] [address] [place] [address] Jun, [facility] [address] [facility] [id number] [address] [place] [address] Jun, [facility] [address] [place] [id number] [address] [place] [address] May, Type 1 diabetes mellitus wit h other specified complication E10.69 ; Diabetic peripheral neuropathy E11.42 and End stage renal disease N18.6 [facility] [address] [place] [id number] [address] [place] [address] Apr, Bronchitis J40 [facility] [address] [facility] [id number] [address] [place] [address] Apr, Other bursal cyst, left elbo w M71.322 [facility] [address] [place] [id number] [address] [place] [address] Apr, [facility] [address] [facility] [id number] [address] [place] [address] Apr, Other bursal cyst, left elbo w M71.322 [facility] [address] [facility] [id number] [address] [place] [address] Mar, [facility] [address] [place] [id number] [address] [place] [address] Mar, Rib pain R07.81 and Type 1 d iabetes mellitus with other specified complication E10.69 [facility] [address] [facility] [id number] [address] [place] [address] Feb, [facility] [address] [id number] [address] [place] [address] Feb, [facility] [address] [id number] [address] [place] [address] Dec, [facility] [address] [id number] [address] [place] [address] Dec, [facility] [address] [id number] [address] [place] [address] Nov, Type 1 diabetes mellitus wit h other specified complication E10.69 and End stage renal disease N18.6 [facility] [address] [id number] [address] [place] [address] Nov, [facility] [address] [id number] [address] [place] [address] Nov, [facility] [address] [id number] [address] [place] [address] Nov, [facility] [address] [id number] [address] [place] [address] Nov, [facility] [address] [id number] [address] [place] [address] Nov, [facility] [address] [id number] [address] [place] [address] Oct, [facility] [address] [id number] [address] [place] [id number] Oct, [facility] [address] [id number] [address] [place] [address] September, [facility] [address] [id number] [address] [place] [address] September, Type 1 diabetes mellitus wit h other specified complication E10.69 [facility] [address] [id number] [address] [place] [address] September, [facility] [address] [id number] [address] [place] [address] September, Diabetic peripheral neuropat hy E11.42 ; Type 1 diabetes mellitus with other specified complication E10.69 ; Chronic kidney disease, stage 3 (moderate) N18.3 and Incomplete tear of left rotator cuff M75.112 [facility] [address] [id number] [address] [place] [address] September, [facility] [address] [id number] [address] [place] [address] Aug, [facility] [address] [id number] [address] [place] [address] Aug, [facility] [address] [id number] [address] [place] [address] Aug, Other chronic pain G89.29 an d Pain in left shoulder M25.512 [facility] [address] [id number] [address] [place] [address] Aug, Physical deconditioning R53. 81 ; Pain in right shoulder M25.511 and Other chronic pain G89.29 [facility] [address] [id number] [address] [place] [address] Aug, [facility] [address] [id number] [address] [place] [address] Jul, Type 1 diabetes mellitus wit h other specified complication E10.69 ; Diabetic peripheral neuropathy E11.42 and Physical deconditioning R53.81 [facility] [address] [id number] [address] [place] [address] Jul, [facility] [address] [id number] [address] [place] [address] Jul, [facility] [address] [id number] [address] [place] [address] Jun, [facility] [address] [id number] [address] [place] [address] Jun, Type 1 diabetes mellitus wit h other specified complication E10.69 ; Insomnia G47.00 and Diabetic peripheral neuropathy E11.42 [facility] [address] [id number] [address] [place] [address] 04 Jun, 2015 [facility] [address] [facility] [id number] [address] [place] [address] 03 Jun, 2015 Physical deconditioning R53. 81 [facility] [address] [facility] [id number] [address] [place] [address] Jun, [facility] [address] [facility] [id number] [address] [place] [address] May, [facility] [address] [facility] [id number] [address] [place] [address] May, [facility] [address] [facility] [id number] [address] [place] [address] May, [facility] [address] [facility] [id number] [address] [place] [address] May, [facility] [address] [facility] [id number] [address] [place] [address] May, [facility] [address] [facility] [id number] [address] [place] [address] May, Adjustment disorder with dep ressed mood F43.21 [facility] [address] [facility] [id number] [address] [place] [address] May, Type 1 diabetes mellitus wit h other specified complication E10.69 ; Anemia, unspecified type D64.9 ; Gastric peptic ulcer, acute K25.3 and Physical deconditioning R53.81 [facility] [address] [facility] [id number] [address] [place] [address] May, [facility] [address] [facility] [id number] [address] [place] [address] May, Type 1 diabetes mellitus wit h other specified complication E10.69 [facility] [address] [facility] [id number] [address] [place] [address] May, [facility] [address] [facility] [id number] [address] [place] [address] May, [facility] [address] [facility] [id number] [address] [place] [address] May, [facility] [address] [facility] [id number] [address] [place] [address] May, [facility] [address] [facility] [id number] [address] [place] [address] May, Type 1 diabetes mellitus wit h other specified complication E10.69 ; Depression, unspecified depression type F32.9 ; Anemia, unspecified type D64.9 ; Diabetic peripheral neuropathy E11.42 ; Gastric peptic ulcer, acute K25.3 ; Primary insomnia F51.01 and Pneumonia J18.9 [place] [id number] [facility] [id number] [address] [place] [address] May, [place] [id number] [facility] [id number] [address] [place] [address] May, IMMUNIZATIONS No Known Immunizations SOCIAL HISTORY Never Assessed REASON FOR VISIT Requests return call PLAN OF CARE VITAL SIGNS MEDICATIONS No Known Medications RESULTS No Results PROCEDURES No Known [...]
--- OUTSIDE RECORDS SUMMARY | 2019-09-28 08:57 | XMS REPORT ---
Author Author Stef HARRELL Organization [facility] Address [address] [place] [address] Care Team Providers Care Synthetic Filament Spinner Name Role Phone SARI HARRELL Unavailable PROBLEMS Type Condition ICD9-CM Code [id number] Code Onset Dates Condition S tatus SNOMED Code Problem Diabetic peripheral neuropathy E11.42 Active 991190282 Problem Type 1 diabetes mellitus with other specified complication E10.69 Active 09739064 Problem Primary insomnia F51.01 Active 397 2004 Problem Depression, unspecified depression type F32.9 Active 10220616 Problem Anemia, unspecified type D64.9 Activ e 470119173 Problem Falls frequently R29.6 Active 279 129229 Problem Bilateral hearing loss, unspecified hearing loss type H91.93 Active 08932092 Problem Other chronic pain G89.29 Active 8 2563346 Problem End stage renal disease N18.6 Active 69158713 Problem Major depression, chronic F34.1 Acti ve 489217849 Problem Chronic GERD K21.9 Active 7630449 09 ALLERGIES Substance Reaction Event Type Date Status Penicillin V Potassium Unknown Drug Allergy Oct, Activ e Codeine Sulfate Unknown Drug Allergy Oct, Active ENCOUNTERS Encounter Location Date Diagnosis [facility] [address] [facility] [id number] [address] [place] [phone] Dec, Primary insomnia F51.01 [facility] [address] [facility] [id number] [address] [place] [phone] Dec, [facility] [address] [facility] [id number] [address] [place] [phone] Nov, [facility] [address] [facility] [id number] [address] [place] [phone] Nov, Diabetic peripheral neuropat hy E11.42 [facility] [address] [facility] [id number] [address] [place] [phone] Oct, Type 1 diabetes mellitus wit h other specified complication E10.69 ; Diabetic peripheral neuropathy E11.42 and End stage renal disease N18.6 [facility] [address] [facility] [id number] [address] [place] [phone] Oct, [facility] [address] [id number] [address] [place] [phone] September, [facility] [address] [facility] [id number] [address] [place] [phone] Aug, Effusion of right elbow M25. 421 [facility] [address] [id number] [address] [place] [phone] Aug, Diabetic peripheral neuropat hy E11.42 [facility] [address] [facility] [id number] [address] [place] [phone] Jul, [place] [address] [place] [id number] [address] [place] [phone] Jul, Medicare annual wellness vis it, initial Z00.00 ; Diabetic peripheral neuropathy E11.42 ; End stage renal disease N18.6 ; Type 1 diabetes mellitus with other specified complication E10.69 ; Anemia, unspecified type D64.9 ; Falls frequently R29.6 ; Chronic GERD K21.9 ; Major depression, chronic F34.1 and Bilateral hearing loss, unspecified hearing loss type H91.93 [facility] [address] [facility] [id number] [address] [place] [phone] Jun, [facility] [address] [facility] [id number] [address] [place] [phone] Jun, Low back pain M54.5 and Prim linwood insomnia F51.01 [place] [address] [facility] [id number] [address] [place] [phone] May, Diabetic peripheral neuropat hy E11.42 [facility] [address] [facility] [id number] [address] [place] [phone] May, [facility] [address] [facility] [id number] [address] [place] [phone] May, [facility] [address] [id number] [address] [place] [phone] May, [facility] [address] [facility] [id number] [address] [place] [phone] May, Diabetic peripheral neuropat hy E11.42 ; Type 1 diabetes mellitus with other specified complication E10.69 ; Primary insomnia F51.01 ; Depression, unspecified depression type F32.9 ; End stage renal disease N18.6 ; Left foot drop M21.372 and Foot drop, right foot M21.371 [facility] [address] [id number] [address] [place] [phone] Apr, [facility] [address] [facility] [id number] [address] [place] [phone] Apr, [facility] [address] [facility] [id number] [address] [place] [address] Mar, Foot drop, left M21.372 and Foot drop, right M21.371 [facility] [address] [facility] [id number] [address] [place] [phone] Mar, [facility] [address] [facility] [id number] [address] [place] [phone] Feb, Type 1 diabetes mellitus wit h other specified complication E10.69 and Olecranon bursitis, unspecified laterality M70.20 [facility] [address] [facility] [id number] [address] [place] [phone] Feb, [facility] [address] [id number] [address] [place] [phone] Feb, Diabetic peripheral neuropat hy E11.42 [facility] [address] [id number] [address] [place] [phone] Jan, Type 1 diabetes mellitus wit h other specified complication E10.69 [facility] [address] [facility] [id number] [address] [place] [phone] Dec, Type 1 diabetes mellitus wit h other specified complication E10.69 ; Primary insomnia F51.01 ; End stage renal disease N18.6 and Chronic GERD K21.9 [facility] [address] [id number] [address] [place] [phone] Dec, [facility] [address] [id number] [address] [place] [phone] Nov, [facility] [address] [id number] [address] [place] [phone] Oct, Diabetic peripheral neuropat hy E11.42 [facility] [address] [id number] [address] [place] [phone] Oct, [facility] [address] [id number] [address] [place] [address] September, Type 1 diabetes mellitus wit h other specified complication E10.69 [facility] [address] [id number] [address] [place] [address] September, Diabetic peripheral neuropat hy E11.42 [facility] [address] [id number] [address] [place] [phone] September, Diabetic peripheral neuropat hy E11.42 ; Type 1 diabetes mellitus with other specified complication E10.69 and End stage renal disease N18.6 [facility] [address] [id number] [address] [place] [phone] September, [facility] [address] [id number] [address] [place] [phone] September, [facility] [address] [id number] [address] [place] [phone] Aug, [facility] [address] [facility] [id number] [address] [place] [phone] Aug, Low back pain, unspecified b ack pain laterality, unspecified chronicity, with sciatica presence unspecified M54.5 [facility] [address] [id number] [address] [place] [phone] Aug, [facility] [address] [place] [id number] [address] [place] [phone] Jul, [facility] [address] [place] [id number] [address] [place] [phone] Jul, Low back pain M54.5 ; Other chronic pain G89.29 ; Type 1 diabetes mellitus with other specified complication E10.69 ; Diabetic peripheral neuropathy E11.42 ; Left foot drop M21.372 and Foot drop, right foot M21.371 [facility] [address] [place] [id number] [address] [place] [phone] Jul, [facility] [address] [place] [id number] [address] [place] [phone] Jul, [facility] [address] [place] [id number] [place] [address] Jun, Low back pain, unspecified b ack pain laterality, unspecified chronicity, with sciatica presence unspecified M54.5 [facility] [address] [place] [id number] [address] [place] [id number] Jun, [facility] [address] [place] [id number] [address] [place] [phone] Jun, [facility] [address] [place] [id number] [address] [place] [phone] Jun, [facility] [address] [place] [id number] [address] [place] [phone] May, Type 1 diabetes mellitus wit h other specified complication E10.69 ; Diabetic peripheral neuropathy E11.42 and End stage renal disease N18.6 [facility] [address] [place] [id number] [address] [place] [address] Apr, Bronchitis J40 [facility] [address] [place] [id number] [address] [place] [phone] Apr, Other bursal cyst, left elbo w M71.322 [facility] [address] [place] [id number] [address] [place] [phone] Apr, [facility] [address] [id number] [address] [place] [address] Apr, Other bursal cyst, left elbo w M71.322 [facility] [address] [id number] [address] [place] [phone] Mar, [facility] [address] [id number] [address] [place] [address] Mar, Rib pain R07.81 and Type 1 d iabetes mellitus with other specified complication E10.69 [facility] [address] [id number] [address] [place] [phone] Feb, [facility] [address] [id number] [address] [place] [phone] Feb, [facility] [address] [id number] [address] [place] [phone] Dec, [facility] [address] [id number] [address] [place] [phone] Dec, [facility] [address] [id number] [address] [place] [id number] Nov, Type 1 diabetes mellitus wit h other specified complication E10.69 and End stage renal disease N18.6 [facility] [address] [id number] [address] [place] [phone] Nov, [facility] [address] [id number] [address] [place] [phone] Nov, [facility] [address] [id number] [address] [place] [phone] Nov, [facility] [address] [id number] [address] [place] [id number] Nov, [facility] [address] [id number] [address] [place] [phone] Nov, [facility] [address] [id number] [address] [place] [phone] Oct, [facility] [address] [id number] [address] [place] [phone] Oct, [facility] [address] [id number] [address] [place] [phone] September, [facility] [address] [id number] [address] [place] [phone] September, Type 1 diabetes mellitus wit h other specified complication E10.69 [facility] [address] [id number] [address] [place] [address] September, [facility] [address] [id number] [address] [place] [phone] September, Diabetic peripheral neuropat hy E11.42 ; Type 1 diabetes mellitus with other specified complication E10.69 ; Chronic kidney disease, stage 3 (moderate) N18.3 and Incomplete tear of left rotator cuff M75.112 [facility] [address] [id number] [address] [place] [phone] September, [facility] [address] [id number] [address] [place] [phone] Aug, [facility] [address] [id number] [address] [place] [phone] Aug, [facility] [address] [id number] [address] [place] [phone] Aug, Other chronic pain G89.29 an d Pain in left shoulder M25.512 [facility] [address] [id number] [address] [place] [phone] 15 Aug, 2015 Physical deconditioning R53. 81 ; Pain in right shoulder M25.511 and Other chronic pain G89.29 [facility] [address] [id number] [address] [place] [phone] Aug, [facility] [address] [id number] [address] [place] [address] Jul, Type 1 diabetes mellitus wit h other specified complication E10.69 ; Diabetic peripheral neuropathy E11.42 and Physical deconditioning R53.81 [facility] [address] [id number] [address] [place] [phone] Jul, [facility] [address] [id number] [address] [place] [phone] Jul, [facility] [address] [id number] [address] [place] [phone] Jun, [facility] [address] [id number] [address] [place] [id number] Jun, Type 1 diabetes mellitus wit h other specified complication E10.69 ; Insomnia G47.00 and Diabetic peripheral neuropathy E11.42 [facility] [address] [id number] [address] [place] [phone] Jun, [facility] [address] [facility] [id number] [address] [place] [phone] Jun, Physical deconditioning R53. 81 [facility] [address] [id number] [address] [place] [phone] Jun, [facility] [address] [id number] [address] [place] [phone] May, [facility] [address] [facility] [id number] [address] [place] [phone] May, [facility] [address] [id number] [address] [place] [phone] May, [facility] [address] [id number] [address] [place] [phone] May, [facility] [address] [facility] [id number] [address] [place] [phone] May, [facility] [address] [facility] [id number] [address] [place] [phone] May, Adjustment disorder with dep ressed mood F43.21 [facility] [address] [id number] [address] [place] [address] May, Type 1 diabetes mellitus wit h other specified complication E10.69 ; Anemia, unspecified type D64.9 ; Gastric peptic ulcer, acute K25.3 and Physical deconditioning R53.81 [facility] [address] [facility] [id number] [address] [place] [phone] May, [place] [address] [facility] [id number] [address] [place] [phone] May, Type 1 diabetes mellitus wit h other specified complication E10.69 [place] [address] [facility] [id number] [address] [place] [phone] May, [place] [address] [facility] [id number] [address] [place] [phone] May, [place] [address] [place] [id number] [address] [place] [phone] May, [place] [address] [facility] [id number] [address] [place] [phone] May, [place] [address] [facility] [id number] [address] [place] [phone] May, Type 1 diabetes mellitus wit h other specified complication E10.69 ; Depression, unspecified depression type F32.9 ; Anemia, unspecified type D64.9 ; Diabetic peripheral neuropathy E11.42 ; Gastric peptic ulcer, acute K25.3 ; Primary insomnia F51.01 and Pneumonia J18.9 [place] [address] [facility] [id number] [address] [place] [phone] May, [place] [address] [place] [id number] [address] [place] [phone] May, IMMUNIZATIONS No Known Immunizations SOCIAL HISTORY Never Assessed REASON FOR VISIT Jose Luis SANDHU PT was in the hospital the past week and was informed he iniguez d a form of Staph on the left foot and it was removed PLAN OF CARE Activity Details Follow Up 3 Months Reason:DMT1/ESRD VITAL SIGNS Height 66 in 2017-10-26 Weight 207 lbs 2017-10-26 Temperature 98.4 degrees Fahrenheit 2017-10-26 Heart Rate 78 bpm 2017-10-26 Respiratory Rate 20 2017-10-26 BMI 33.41 kg/m2 2017-10-26 Blood pressure systolic 116 mmHg 2017-10-26 Blood pressure diastolic 58 mmHg 2017-10-26 MEDICATIONS Medication Instructions Dosage Frequency Start Date End Date Duration S tatus Lyrica 75 MG Orally Three times a day 1 capsule 8h 30 days Active Ventolin HFA 108 (90 Base) MCG/ACT Inhalation every 6 hrs 2 puffs a s needed 6h Apr, Not-Taking NovoLog 100 UNIT/ML per pump May, Active Calcium Acetate (Phos Binder) 667 MG Orally Three times a day 1 tablet 8 h Active Claritin 10 mg Orally Once a day 1 tablet 24h May, 9 0 days Not-Taking Glucagon Emergency 1 MG Injection one time as directed September, 017 1 dose Not-Taking Glucocard Expression Monitor w/Device as directed Mar Not-Taking Flomax 0.4 MG Orally Once a day 1 capsule 24h Active Bumetanide 2 MG Orally Once a day 1 tablet 24h Active Prozac 20 MG Orally Once a day 1 capsule in the morning 24h Not-Taking Test strips as directed Feb, Feb, 90 day s Not-Taking Tramadol HCl 50 mg Orally 3 times a day 1 tablet as needed 8h 2 7 Jul, 2016 28 days Active Trazodone HCl 100 MG Orally Once a day 1 tablet at bedtime as neede d 24h 17 Dec, 2016 90 days Active Glucocard Expression Test - test blood sugar 8h 10 Mar, 6 Not-Taking Stool Softener 100 MG Orally Once a day 1 capsule as needed 24h Active Omeprazole 40 mg Orally Once a day 1 capsule 24h 90 days Active RESULTS No Results PROCEDURES Procedure Date Ordered Result Body Site [facility] VISIT ESTABLISHED PATIENT October 26, 2017 INSTRUCTIONS MEDICATIONS ADMINISTERED No Known Medications [...]
--- OUTSIDE RECORDS SUMMARY | 2019-09-28 08:58 | XMS REPORT ---
Author Author Stef HARRELL Organization [employer] Address Unknown Phone Unavailable Care Team Providers Care Director Call Center Sales Name Role Phone SARI HARRELL CP Unavailable Allergies No Known Allergies Problems Problem Type Condition Code Onset Dates Condition Statu s Problem Anemia, unspecified type D64.9 Act lamar Problem Neuropathy G62.9 Active Problem Depression, unspecified depression type F32.9 Active Problem Pain in right shoulder M25.511 Activ e Problem Other chronic pain G89.29 Active Problem Pain in left shoulder M25.512 Active Problem Diabetic peripheral neuropathy E11.42 Active Problem Type 1 diabetes mellitus with other specified complica tion E10.69 Active Problem Physical deconditioning R53.81 Acti ve Problem Adjustment disorder with depressed mood F43.21 Active Problem Pneumonia J18.9 Active Problem Primary insomnia F51.01 Active Problem Gastric peptic ulcer, acute K25.3 Active Medications Medication Code System Code Instructions Start Date End Date Status Dosage Glucocard Expression Test NDC 0 - 3 times a day Mar 18, 2016 test blood sugar Glucocard Expression Monitor [facility] [id number] w/Device Mar 18, 2016 as directed Results No Known Results Summary Purpose [employer] Submission
--- OUTSIDE RECORDS SUMMARY | 2019-09-28 08:58 | XMS REPORT ---
Author Author Stef HARRELL Organization [facility] Address [address] [place] [address] Care Team Providers Care Billet Shearer Name Role Phone SARI HARRELL Unavailable PROBLEMS Type Condition ICD9-CM Code [id number] Code Onset Dates Condition S tatus SNOMED Code Problem Anemia, unspecified type D64.9 Activ e 752675323 Problem Depression, unspecified depression type F32.9 Active 61915062 Problem Chronic GERD K21.9 Active 0045370 09 Problem Other chronic pain G89.29 Active 8 4628671 Problem Primary insomnia F51.01 Active 397 2004 Problem Diabetic peripheral neuropathy E11.42 Active 035317394 Problem End stage renal disease N18.6 Active 57489534 Problem Type 1 diabetes mellitus with other specified complication E10.69 Active 12429916 ALLERGIES No Information SOCIAL HISTORY Never Assessed PLAN OF CARE VITAL SIGNS MEDICATIONS Medication Instructions Dosage Frequency Start Date End Date Duration S tatus Lyrica 75 MG Orally Three times a day 1 capsule 8h 30 days Active RESULTS No Results PROCEDURES No Known procedures IMMUNIZATIONS No Known Immunizations MEDICAL (GENERAL) HISTORY Type Description Date Medical History Diabetes Type I Medical History Dialysis-Stage 5 kidney failure Surgical History right knee meniscus repair Surgical History hernia repair Surgical History cholecystectomy Surgical History tonsillectomy Hospitalization History surgeries Hospitalization History DKA 02/23/15 Hospitalization History Dyspnea, Acute Exacerbation CHF, Chronic Renal Failure--[facility] [place] 11/23/15 Hospitalization History Peritonitis 12/2016
--- OUTSIDE RECORDS SUMMARY | 2019-09-28 08:58 | XMS REPORT ---
Author Author Stef HARRELL Organization [facility] Address [address] [place] [address] Care Team Providers Care Big Data Platform Architect Name Role Phone SARI HARRELL Unavailable PROBLEMS Type Condition ICD9-CM Code QPS70-OK Code Onset Dates Condition S tatus SNOMED Code Problem Anemia, unspecified type D64.9 Activ e 725412385 Problem Depression, unspecified depression type F32.9 Active 42666274 Problem Chronic GERD K21.9 Active 4206726 09 Problem Other chronic pain G89.29 Active 8 2940511 Problem Primary insomnia F51.01 Active 397 2004 Problem Diabetic peripheral neuropathy E11.42 Active 692401479 Problem End stage renal disease N18.6 Active 37724574 Problem Type 1 diabetes mellitus with other specified complication E10.69 Active 30475734 ALLERGIES No Information SOCIAL HISTORY Never Assessed PLAN OF CARE VITAL SIGNS MEDICATIONS Unknown [...]
--- OUTSIDE RECORDS SUMMARY | 2019-09-28 08:58 | XMS REPORT ---
Author Author Stef HARRELL Organization [facility] Address [address] [place] [address] Care Team Providers Care Mortgage Originator Name Role Phone SARI HARRELL Unavailable PROBLEMS Type Condition ICD9-CM Code DOU63-KO Code Onset Dates Condition S tatus SNOMED Code Problem Diabetic peripheral neuropathy E11.42 Active 880211443 Problem Type 1 diabetes mellitus with other specified complication E10.69 Active 84498883 Problem Primary insomnia F51.01 Active 397 2004 Problem Depression, unspecified depression type F32.9 Active 10869414 Problem Anemia, unspecified type D64.9 Activ e 510593796 Problem Falls frequently R29.6 Active 279 427337 Problem Bilateral hearing loss, unspecified hearing loss type H91.93 Active 18893799 Problem Other chronic pain G89.29 Active 8 1368889 Problem End stage renal disease N18.6 Active 66777137 Problem Major depression, chronic F34.1 Acti ve 498961919 Problem Chronic GERD K21.9 Active 6383267 09 ALLERGIES No Information ENCOUNTERS Encounter Location Date Diagnosis [place] [address] [place] [id number] [address] [place] [phone] 17 Aug, 2017 Effusion of right elbow M25. 421 [place] [address] [facility] [id number] [address] [place] [phone] 13 Aug, 2017 Diabetic peripheral neuropat hy E11.42 [facility] [address] [facility] [id number] [address] [place] [phone] Jul, [place] [address] [facility] [id number] [address] [place] [phone] 28 Jul, 2017 Medicare annual wellness vis it, initial Z00.00 ; Diabetic peripheral neuropathy E11.42 ; End stage renal disease N18.6 ; Type 1 diabetes mellitus with other specified complication E10.69 ; Anemia, unspecified type D64.9 ; Falls frequently R29.6 ; Chronic GERD K21.9 ; Major depression, chronic F34.1 and Bilateral hearing loss, unspecified hearing loss type H91.93 [facility] [address] [place] [id number] [address] [place] [address] Jun, [facility] [address] [place] [id number] [address] [place] [address] Jun, Low back pain M54.5 and Prim linwood insomnia F51.01 [facility] [address] [facility] [id number] [address] [place] [phone] May, Diabetic peripheral neuropat hy E11.42 [place] [address] [place] [id number] [place] [phone] May, [place] [address] [place] [id number] [place] [phone] May, [place] [address] [place] [id number] [address] [place] [phone] May, [facility] [address] [place] [id number] [address] [place] [address] May, Diabetic peripheral neuropat hy E11.42 ; Type 1 diabetes mellitus with other specified complication E10.69 ; Primary insomnia F51.01 ; Depression, unspecified depression type F32.9 ; End stage renal disease N18.6 ; Left foot drop M21.372 and Foot drop, right foot M21.371 [place] [address] [place] [id number] [address] [place] [phone] Apr, [place] [address] [facility] [id number] [address] [place] [phone] Apr, [place] [address] [place] [id number] [place] [address] Mar, Foot drop, left M21.372 and Foot drop, right M21.371 [place] [address] [place] [id number] [address] [place] [phone] Mar, [place] [address] [id number] [address] [place] [phone] 18 Feb, 2017 Type 1 diabetes mellitus wit h other specified complication E10.69 and Olecranon bursitis, unspecified laterality M70.20 [facility] [address] [id number] [address] [place] [phone] 06 Feb, 2017 [facility] [address] [id number] [address] [place] [phone] 04 Feb, 2017 Diabetic peripheral neuropat hy E11.42 [facility] [address] [id number] [address] [place] [address] Jan, Type 1 diabetes mellitus wit h other specified complication E10.69 [facility] [address] [id number] [address] [place] [phone] Dec, Type 1 diabetes mellitus wit h other specified complication E10.69 ; Primary insomnia F51.01 ; End stage renal disease N18.6 and Chronic GERD K21.9 [facility] [address] [id number] [address] [place] [phone] Dec, [facility] [address] [id number] [address] [place] [phone] Nov, [facility] [address] [facility] [id number] [address] [place] [address] Oct, Diabetic peripheral neuropat hy E11.42 [facility] [address] [id number] [address] [place] [address] Oct, [facility] [address] [id number] [address] [place] [address] September, Type 1 diabetes mellitus wit h other specified complication E10.69 [facility] [address] [id number] [address] [place] [address] September, Diabetic peripheral neuropat hy E11.42 [facility] [address] [id number] [address] [place] [address] September, Diabetic peripheral neuropat hy E11.42 ; Type 1 diabetes mellitus with other specified complication E10.69 and End stage renal disease N18.6 [facility] [address] [id number] [address] [place] [address] September, [facility] [address] [id number] [address] [place] [phone] September, [facility] [address] [id number] [address] [place] [phone] Aug, [facility] [address] [id number] [address] [place] [phone] Aug, Low back pain, unspecified b ack pain laterality, unspecified chronicity, with sciatica presence unspecified M54.5 [facility] [address] [id number] [address] [place] [address] Aug, [facility] [address] [id number] [address] [place] [phone] Jul, [facility] [address] [id number] [address] [place] [address] Jul, Low back pain M54.5 ; Other chronic pain G89.29 ; Type 1 diabetes mellitus with other specified complication E10.69 ; Diabetic peripheral neuropathy E11.42 ; Left foot drop M21.372 and Foot drop, right foot M21.371 [facility] [address] [id number] [address] [place] [phone] Jul, [facility] [address] [id number] [address] [place] [phone] Jul, [facility] [address] [id number] [address] [place] [phone] Jun, Low back pain, unspecified b ack pain laterality, unspecified chronicity, with sciatica presence unspecified M54.5 [facility] [address] [id number] [address] [place] [phone] Jun, [facility] [address] [id number] [address] [place] [address] Jun, [facility] [address] [id number] [address] [place] [address] Jun, [facility] [address] [facility] [id number] [address] [place] [address] May, Type 1 diabetes mellitus wit h other specified complication E10.69 ; Diabetic peripheral neuropathy E11.42 and End stage renal disease N18.6 [facility] [address] [id number] [address] [place] [address] Apr, Bronchitis J40 [facility] [address] [facility] [id number] [address] [place] [address] Apr, Other bursal cyst, left elbo w M71.322 [facility] [address] [facility] [id number] [address] [place] [address] Apr, [facility] [address] [facility] [id number] [address] [place] [address] Apr, Other bursal cyst, left elbo w M71.322 [facility] [address] [id number] [address] [place] [phone] Mar, [facility] [address] [facility] [id number] [address] [place] [address] Mar, Rib pain R07.81 and Type 1 d iabetes mellitus with other specified complication E10.69 [facility] [address] [id number] [address] [place] [phone] Feb, [facility] [address] [id number] [address] [place] [address] Feb, [facility] [address] [facility] [id number] [address] [place] [address] Dec, [facility] [address] [facility] [id number] [address] [place] [address] Dec, [facility] [address] [facility] [id number] [address] [place] [address] Nov, Type 1 diabetes mellitus wit h other specified complication E10.69 and End stage renal disease N18.6 [facility] [address] [id number] [address] [place] [phone] Nov, [facility] [address] [id number] [address] [place] [address] Nov, [facility] [address] [id number] [address] [place] [address] Nov, [facility] [address] [id number] [address] [place] [phone] Nov, [facility] [address] [id number] [address] [place] [address] Nov, [facility] [address] [id number] [address] [place] [address] Oct, [facility] [address] [id number] [address] [place] [address] Oct, [facility] [address] [id number] [address] [place] [phone] September, [facility] [address] [id number] [address] [place] [address] September, Type 1 diabetes mellitus wit h other specified complication E10.69 [facility] [address] [id number] [address] [place] [address] September, [facility] [address] [id number] [address] [place] [address] September, Diabetic peripheral neuropat hy E11.42 ; Type 1 diabetes mellitus with other specified complication E10.69 ; Chronic kidney disease, stage 3 (moderate) N18.3 and Incomplete tear of left rotator cuff M75.112 [facility] [address] [id number] [address] [place] [address] September, [facility] [address] [id number] [address] [place] [address] Aug, [facility] [address] [id number] [address] [place] [address] Aug, [facility] [address] [id number] [address] [place] [address] Aug, Other chronic pain G89.29 an d Pain in left shoulder M25.512 [facility] [address] [id number] [address] [place] [address] Aug, Physical deconditioning R53. 81 ; Pain in right shoulder M25.511 and Other chronic pain G89.29 [facility] [address] [id number] [address] [place] [address] Aug, [facility] [address] [id number] [address] [place] [address] Jul, Type 1 diabetes mellitus wit h other specified complication E10.69 ; Diabetic peripheral neuropathy E11.42 and Physical deconditioning R53.81 [facility] [address] [id number] [address] [place] [address] Jul, [facility] [address] [id number] [address] [place] [address] Jul, [facility] [address] [id number] [address] [place] [phone] Jun, [facility] [address] [id number] [address] [place] [address] Jun, Type 1 diabetes mellitus wit h other specified complication E10.69 ; Insomnia G47.00 and Diabetic peripheral neuropathy E11.42 [facility] [address] [id number] [address] [place] [address] Jun, [facility] [address] [id number] [address] [place] [address] Jun, Physical deconditioning R53. 81 [facility] [address] [id number] [address] [place] [address] Jun, [facility] [address] [facility] [id number] [address] [place] [phone] May, [facility] [address] [id number] [address] [place] [address] May, [facility] [address] [id number] [address] [place] [address] May, [facility] [address] [facility] [id number] [address] [place] [address] May, [facility] [address] [facility] [id number] [address] [place] [address] May, [facility] [address] [facility] [id number] [address] [place] [address] May, Adjustment disorder with dep ressed mood F43.21 [facility] [address] [facility] [id number] [address] [place] [address] May, Type 1 diabetes mellitus wit h other specified complication E10.69 ; Anemia, unspecified type D64.9 ; Gastric peptic ulcer, acute K25.3 and Physical deconditioning R53.81 [facility] [address] [id number] [address] [place] [address] May, [facility] [address] [facility] [id number] [address] [place] [address] May, Type 1 diabetes mellitus wit h other specified complication E10.69 [facility] [address] [facility] [id number] [address] [place] [address] May, [facility] [address] [id number] [address] [place] [phone] May, [facility] [address] [facility] [id number] [address] [place] [phone] May, [facility] [address] [facility] [id number] [address] [place] [address] May, [facility] [address] [facility] [id number] [address] [place] [phone] May, Type 1 diabetes mellitus wit h other specified complication E10.69 ; Depression, unspecified depression type F32.9 ; Anemia, unspecified type D64.9 ; Diabetic peripheral neuropathy E11.42 ; Gastric peptic ulcer, acute K25.3 ; Primary insomnia F51.01 and Pneumonia J18.9 [facility] [address] [facility] [id number] [address] [place] [address] May, [facility] [address] [facility] [id number] [address] [place] [address] May, IMMUNIZATIONS No Known Immunizations SOCIAL HISTORY Never Assessed REASON FOR VISIT eye exam PLAN OF CARE VITAL SIGNS MEDICATIONS Unknown [...]
--- OUTSIDE RECORDS SUMMARY | 2019-09-28 08:58 | XMS REPORT ---
Author Author Stef HARRELL Organization [facility] Address [address] [place] [address] Care Team Providers Care Manual Training Teacher Name Role Phone SARI HARRELL Unavailable PROBLEMS Type Condition ICD9-CM Code AMP05-GK Code Onset Dates Condition S tatus SNOMED Code Problem Anemia, unspecified type D64.9 Activ e 300159733 Problem Depression, unspecified depression type F32.9 Active 48643582 Problem Chronic GERD K21.9 Active 6548336 09 Problem Other chronic pain G89.29 Active 8 7330414 Problem Primary insomnia F51.01 Active 397 2004 Problem Diabetic peripheral neuropathy E11.42 Active 168908980 Problem End stage renal disease N18.6 Active 24037654 Problem Type 1 diabetes mellitus with other specified complication E10.69 Active 00372023 ALLERGIES No Information SOCIAL HISTORY Never Assessed PLAN OF CARE VITAL SIGNS MEDICATIONS Medication Instructions Dosage Frequency Start Date End Date Duration S tatus Lyrica 75 MG 1 capsule 8h 30 days Active RESULTS [...]
--- OUTSIDE RECORDS SUMMARY | 2019-09-28 08:58 | XMS REPORT ---
Author Author Stef DA SILVA Organization [employer] Address Unknown Phone Unavailable Care Team Providers Care Licensed Clinical Psychologist Name Role Phone WEST DA SILVA CP Unavailable Allergies No Known Allergies Problems Problem Type Condition Code Onset Dates Condition Statu s Problem Pneumonia J18.9 Active Problem Type 1 diabetes mellitus with other specified complica tion E10.69 Active Problem Neuropathy G62.9 Active Problem Diabetic peripheral neuropathy E11.42 Active Problem Gastric peptic ulcer, acute K25.3 Active Problem Primary insomnia F51.01 Active Problem Depression, unspecified depression type F32.9 Active Problem Anemia, unspecified type D64.9 Act lamar Medications No Known Medications Results No Known Results Summary Purpose [employer] Submission
--- OUTSIDE RECORDS SUMMARY | 2019-09-28 08:58 | XMS REPORT ---
Author Author Stef HARRELL Organization [employer] Address Unknown Phone Unavailable Care Team Providers Care Delivery Architect Name Role Phone SARI HARRELL CP Unavailable [...] Gastric peptic ulcer, acute K25.3 Active Medications No Known Medications Results No Known Results Summary Purpose [employer] Submission
--- OUTSIDE RECORDS SUMMARY | 2019-09-28 08:58 | XMS REPORT ---
Author Author Stef DA SILVA Organization [employer] Address Unknown Phone Unavailable Care Team Providers Care Drop Hammer Set Up Operator Name Role Phone WEST DA SILVA CP Unavailable Allergies No Known Allergies Problems No Known Problems Medications No Known Medications Results No Known Results Summary Purpose [employer] Submission
--- OUTSIDE RECORDS SUMMARY | 2019-09-28 08:58 | XMS REPORT ---
Author Author Stef DAVIS Organization [employer] Address Unknown Phone Unavailable Care Team Providers Care Regional Truck Driver Name Role Phone SARI DAVIS CP Unavailable Allergies No Known Allergies Problems [...] Instructions Start Date End Date Status Dosage Lyrica [facility] [id number] 75 MG TAKE ONE CAP JERONIMO BY MOUTH THREE TIMES DAILY Results No Known Results Summary Purpose [employer] Submission
--- OUTSIDE RECORDS SUMMARY | 2019-09-28 08:58 | XMS REPORT ---
Author Author Stef HARRELL Organization [facility] [place] Address [address] [place] [address] Care Team Providers Care Margin Analyst Name Role Phone SARI HARRELL Unavailable PROBLEMS Type Condition ICD9-CM Code BUL61-BG Code Onset Dates Condition S tatus SNOMED Code Problem Depression, unspecified depression type F32.9 Active 77807274 Problem Type 1 diabetes mellitus with other specified complication E10.69 Active 24700164 Problem Neuropathy G62.9 Active 779361395 Problem Pain in left shoulder M25.512 Active 76662823 Problem Pain in right shoulder M25.511 Active 37167296 Problem Adjustment disorder with depressed mood F43.21 Active 81277254 Problem Diabetic peripheral neuropathy E11.42 Active 036905908 Problem Other chronic pain G89.29 Active 8 7504920 Problem Physical deconditioning R53.81 Active 429836297 Problem Pneumonia J18.9 Active 125149815 Problem Primary insomnia F51.01 Active 397 2004 Assessment Type 1 diabetes mellitus with other specified complica tion E10.69 Mar, Active 058558919 Problem Gastric peptic ulcer, acute K25.3 Ac tive 987456190 Assessment Rib pain R07.81 Mar, Active 118098 002 Problem Anemia, unspecified type D64.9 Activ e 300282140 ALLERGIES Unknown Allergies SOCIAL HISTORY No smoking Hx information available PLAN OF CARE VITAL SIGNS Height 66 in 2016-03-17 Weight 204.8 lbs 2016-03-17 Heart Rate 90 bpm 2016-03-17 Respiratory Rate 18 2016-03-17 BMI 33.05 kg/m2 2016-03-17 Blood pressure systolic 116 mmHg 2016-03-17 Blood pressure diastolic 90 mmHg 2016-03-17 MEDICATIONS Medication Instructions Dosage Frequency Start Date End Date Duration S tatus Metoprolol Succinate ER 25 MG Orally Once a day 1 tablet 24h Nov, Active Omeprazole 40 MG Orally Once a day 1 tablet 24h 90 Active Allopurinol 100 MG Orally Once a day 1 tablet 24h Active NovoLog 100 UNIT/ML 8 units tid AC and to correct May Active NovoLog Flexpen 100 UNIT/ML Subcutaneous 3 times a day 8-8-7 units tidAC 8h Jun, Active Bumetanide 2 MG Orally Once a day 1 tablet 24h Active Blood Glucose Test Strip 1 as directed September, Active Blood Glucose Meter May, Active Lyrica 75 MG TAKE ONE CAPSULE BY MOUTH THREE TIMES DAILY 30 Active Blood Glucose Monitor System w/Device as directed September Active Levemir 100 UNIT/ML Subcutaneous 2 times a day 6 unitsAM and 14 units PM 12h Active RESULTS Name Result Date Reference Range A1C (IN HOUSE) 2016-03-17 A1C IN HOUSE 8.4 4.3 - 5.6 % Previous A1c 11.4 Lot [id number] Exp date PROCEDURES Procedure Date Ordered Related Diagnosis Body Site Office Visit, Est Pt., Level 4 Mar 17, 2016 CHEST X-RAY Mar 17, 2016 GLYCATED HEMOGLOBIN TEST Mar 17, 2016 IMMUNIZATIONS No Known Immunizations
--- OUTSIDE RECORDS SUMMARY | 2019-09-28 08:58 | XMS REPORT ---
Author Author Stef HARRELL [facility] [employer] Address Unknown Phone Unavailable Care Team Providers Care Circuit Rider Name Role Phone SARI HARRELL Unavailable Allergies No Known Allergies Problems Problem [...] Instructions Start Date End Date Status Dosage Lasix [facility] [place] [address]-27 40 mg Orally Once a day as directed by backup sawyer September 17, 2015 1 tablet Sodium Polystyrene Sulfonate [facility] [place] [address]-02 15 GM/60ML Orally Once a day November 25, 2015 60 ml Metoprolol Succinate ER [facility] [place] [address]-81 25 MG Orally Once a day November 25, 2015 1 tablet Blood Glucose Meter ND 0 May 26, 2015 not defined NovoLog Flexpen [facility] [place] [address]-68 100 UNIT/ML Subcutaneous 3 times a day Jun 23, 2015 8-8-7 units tidAC Blood Glucose Test Strip ND 0 1 6 times a day . E10.69. Dispense per insurance October 02, 2015 as directed Omeprazole [facility] [place] 58977396057 40 MG Orally Once a day 1 tablet Lyrica [facility] [place] 01124845485 75 MG TAKE ONE CAP JERONIMO BY MOUTH THREE TIMES DAILY Levemir [facility] [place] [address]-94 100 UNIT/ML Subcutaneous 2 times a day 6 unitsAM and 14 units PM NovoLog [facility] [place] [address]-45 100 UNIT/ML Subcutaneous May 26, 2015 8 units tid AC and to correct Blood Glucose Monitor System [facility] [place] [address] w/D patricia DX: E10.69. Dispense per insurance October 02, 2015 as directed Results No Known Results Summary Purpose [employer] Submission
--- OUTSIDE RECORDS SUMMARY | 2019-09-28 08:58 | XMS REPORT ---
Author Author Stef DAVIS Organization [employer] Address Unknown Phone Unavailable Care Team Providers Care Grain Mill Worker Name Role Phone SARI DAVIS CP Unavailable Allergies No Known Allergies Problems Problem Type Condition Code Onset Dates Condition Statu s Problem Pneumonia J18.9 Active Problem Gastric peptic ulcer, acute K25.3 Active Problem Primary insomnia F51.01 Active Problem Adjustment disorder with depressed mood F43.21 Active Problem Diabetic peripheral neuropathy E11.42 Active Problem Physical deconditioning R53.81 Acti ve Problem Depression, unspecified depression type F32.9 Active Problem Anemia, unspecified type D64.9 Act lamar Problem Type 1 diabetes mellitus with other specified complica tion E10.69 Active Problem Neuropathy G62.9 Active Medications No Known Medications Results No Known Results Summary Purpose [employer] Submission
--- OUTSIDE RECORDS SUMMARY | 2019-09-28 08:58 | XMS REPORT ---
Author Author Stef HARRELL Organization [facility] Address [address] [place] [address] Care Team Providers Care Technician'S Helper Name Role Phone SARI HARRELL Unavailable PROBLEMS Type Condition ICD9-CM Code LEV68-CY Code Onset Dates Condition S tatus SNOMED Code Problem Diabetic peripheral neuropathy E11.42 Active 460912298 Problem Type 1 diabetes mellitus with other specified complication E10.69 Active 82822620 Problem Primary insomnia F51.01 Active 397 2004 Problem Depression, unspecified depression type F32.9 Active 60107016 Problem Anemia, unspecified type D64.9 Activ e 879375813 Problem Falls frequently R29.6 Active 279 656812 Problem Bilateral hearing loss, unspecified hearing loss type H91.93 Active 45225116 Problem Other chronic pain G89.29 Active 8 1877767 Problem End stage renal disease N18.6 Active 04190616 Problem Major depression, chronic F34.1 Acti ve 262666132 Problem Chronic GERD K21.9 Active 1817025 09 ALLERGIES No Information ENCOUNTERS Encounter Location Date Diagnosis [facility] [address] [place] [id number] [address] [place] [phone] Oct, [facility] [address] [facility] [id number] [address] [place] [phone] Oct, [facility] [address] [facility] [id number] [address] [place] [phone] September, [facility] [address] [facility] [id number] [address] [place] [phone] Aug, Effusion of right elbow M25. 421 [facility] [address] [facility] [id number] [address] [place] [phone] 13 Aug, 2017 Diabetic peripheral neuropat hy E11.42 [facility] [address] [facility] [id number] [address] [place] [id number] Jul, [facility] [address] [facility] [id number] [address] [place] [id number] Jul, Medicare annual wellness vis it, initial Z00.00 ; Diabetic peripheral neuropathy E11.42 ; End stage renal disease N18.6 ; Type 1 diabetes mellitus with other specified complication E10.69 ; Anemia, unspecified type D64.9 ; Falls frequently R29.6 ; Chronic GERD K21.9 ; Major depression, chronic F34.1 and Bilateral hearing loss, unspecified hearing loss type H91.93 [place] [address] [facility] [id number] [address] [place] [phone] Jun, [place] [address] [facility] [id number] [address] [place] [phone] Jun, Low back pain M54.5 and Prim linwood insomnia F51.01 [place] [address] [facility] [id number] [address] [place] [phone] May, Diabetic peripheral neuropat hy E11.42 [place] [address] [facility] [id number] [address] [place] [phone] May, [facility] [address] [facility] [id number] [address] [place] [phone] May, [facility] [address] [facility] [id number] [address] [place] [id number] May, [facility] [address] [facility] [id number] [address] [place] [phone] May, Diabetic peripheral neuropat hy E11.42 ; Type 1 diabetes mellitus with other specified complication E10.69 ; Primary insomnia F51.01 ; Depression, unspecified depression type F32.9 ; End stage renal disease N18.6 ; Left foot drop M21.372 and Foot drop, right foot M21.371 [facility] [address] [facility] [id number] [address] [place] [phone] Apr, [facility] [address] [facility] [id number] [address] [place] [phone] Apr, [facility] [address] [facility] [id number] [address] [place] [id number] Mar, Foot drop, left M21.372 and Foot drop, right M21.371 [facility] [address] [facility] [id number] [address] [place] [id number] Mar, [facility] [address] [facility] [id number] [address] [place] [id number] Feb, Type 1 diabetes mellitus wit h other specified complication E10.69 and Olecranon bursitis, unspecified laterality M70.20 [facility] [address] [facility] [id number] [address] [place] [id number] Feb, [facility] [address] [facility] [id number] [address] [place] [phone] Feb, Diabetic peripheral neuropat hy E11.42 [place] [address] [facility] [id number] [address] [place] [phone] Jan, Type 1 diabetes mellitus wit h other specified complication E10.69 [facility] [address] [id number] [address] [place] [id number] Dec, Type 1 diabetes mellitus wit h other specified complication E10.69 ; Primary insomnia F51.01 ; End stage renal disease N18.6 and Chronic GERD K21.9 [facility] [address] [facility] [id number] [address] [place] [id number] Dec, [facility] [address] [facility] [id number] [address] [place] [phone] Nov, [facility] [address] [facility] [id number] [address] [place] [id number] Oct, Diabetic peripheral neuropat hy E11.42 [facility] [address] [facility] [id number] [address] [place] [id number] Oct, [facility] [address] [facility] [id number] [address] [place] [id number] September, Type 1 diabetes mellitus wit h other specified complication E10.69 [facility] [address] [id number] [address] [place] [id number] September, Diabetic peripheral neuropat hy E11.42 [facility] [address] [id number] [address] [place] [id number] September, Diabetic peripheral neuropat hy E11.42 ; Type 1 diabetes mellitus with other specified complication E10.69 and End stage renal disease N18.6 [facility] [address] [id number] [address] [place] [id number] September, [facility] [address] [id number] [address] [place] [phone] September, [facility] [address] [id number] [address] [place] [phone] Aug, [facility] [address] [id number] [address] [place] [phone] Aug, Low back pain, unspecified b ack pain laterality, unspecified chronicity, with sciatica presence unspecified M54.5 [facility] [address] [id number] [address] [place] [phone] Aug, [facility] [address] [id number] [address] [place] [id number] Jul, [facility] [address] [id number] [address] [place] [id number] Jul, Low back pain M54.5 ; Other chronic pain G89.29 ; Type 1 diabetes mellitus with other specified complication E10.69 ; Diabetic peripheral neuropathy E11.42 ; Left foot drop M21.372 and Foot drop, right foot M21.371 [facility] [address] [id number] [address] [place] [phone] Jul, [facility] [address] [id number] [address] [place] [phone] Jul, [facility] [address] [id number] [address] [place] [phone] Jun, Low back pain, unspecified b ack pain laterality, unspecified chronicity, with sciatica presence unspecified M54.5 [facility] [address] [facility] [id number] [address] [place] [phone] Jun, [facility] [address] [facility] [id number] [address] [place] [phone] Jun, [facility] [address] [facility] [id number] [address] [place] [phone] Jun, [facility] [address] [facility] [id number] [address] [place] [id number] May, Type 1 diabetes mellitus wit h other specified complication E10.69 ; Diabetic peripheral neuropathy E11.42 and End stage renal disease N18.6 [facility] [address] [facility] [id number] [address] [place] [phone] Apr, Bronchitis J40 [facility] [address] [facility] [id number] [address] [place] [id number] Apr, Other bursal cyst, left elbo w M71.322 [facility] [address] [id number] [address] [place] [phone] Apr, [facility] [address] [facility] [id number] [address] [place] [phone] Apr, Other bursal cyst, left elbo w M71.322 [facility] [address] [facility] [id number] [address] [place] [phone] Mar, [facility] [address] [facility] [id number] [address] [place] [phone] Mar, Rib pain R07.81 and Type 1 d iabetes mellitus with other specified complication E10.69 [facility] [address] [facility] [id number] [address] [place] [phone] Feb, [facility] [address] [id number] [address] [place] [phone] Feb, [facility] [address] [id number] [address] [place] [phone] Dec, [facility] [address] [id number] [address] [place] [phone] Dec, [facility] [address] [id number] [address] [place] [phone] Nov, Type 1 diabetes mellitus wit h other specified complication E10.69 and End stage renal disease N18.6 [facility] [address] [id number] [address] [place] [phone] Nov, [facility] [address] [id number] [address] [place] [phone] Nov, [facility] [address] [id number] [address] [place] [phone] Nov, [facility] [address] [id number] [address] [place] [phone] Nov, [facility] [address] [id number] [address] [place] [phone] Nov, [facility] [address] [id number] [address] [place] [phone] Oct, [facility] [address] [id number] [address] [place] [phone] Oct, [facility] [address] [id number] [address] [place] [phone] September, [facility] [address] [id number] [address] [place] [id number] September, Type 1 diabetes mellitus wit h other specified complication E10.69 [facility] [address] [id number] [address] [place] [phone] September, [facility] [address] [id number] [address] [place] [phone] September, Diabetic peripheral neuropat hy E11.42 ; Type 1 diabetes mellitus with other specified complication E10.69 ; Chronic kidney disease, stage 3 (moderate) N18.3 and Incomplete tear of left rotator cuff M75.112 [facility] [address] [id number] [address] [place] [id number] September, [facility] [address] [id number] [address] [place] [phone] Aug, [facility] [address] [id number] [address] [place] [phone] Aug, [facility] [address] [id number] [address] [place] [phone] Aug, Other chronic pain G89.29 an d Pain in left shoulder M25.512 [facility] [address] [facility] [id number] [address] [place] [phone] Aug, Physical deconditioning R53. 81 ; Pain in right shoulder M25.511 and Other chronic pain G89.29 [facility] [address] [id number] [address] [place] [phone] Aug, [facility] [address] [id number] [address] [place] [id number] Jul, Type 1 diabetes mellitus wit h other specified complication E10.69 ; Diabetic peripheral neuropathy E11.42 and Physical deconditioning R53.81 [facility] [address] [id number] [address] [place] [id number] Jul, [facility] [address] [id number] [address] [place] [phone] Jul, [facility] [address] [id number] [address] [place] [phone] Jun, [facility] [address] [facility] [id number] [address] [place] [phone] Jun, Type 1 diabetes mellitus wit h other specified complication E10.69 ; Insomnia G47.00 and Diabetic peripheral neuropathy E11.42 [facility] [address] [facility] [id number] [address] [place] [id number] 04 Jun, 2015 [facility] [address] [facility] [id number] [address] [place] [id number] Jun, Physical deconditioning R53. 81 [facility] [address] [id number] [address] [place] [phone] Jun, [facility] [address] [facility] [id number] [address] [place] [phone] May, [facility] [address] [facility] [id number] [address] [place] [phone] May, [facility] [address] [facility] [id number] [address] [place] [phone] May, [facility] [address] [facility] [id number] [address] [place] [phone] May, [facility] [address] [facility] [id number] [address] [place] [phone] May, [facility] [address] [facility] [id number] [address] [place] [phone] May, Adjustment disorder with dep ressed mood F43.21 [facility] [address] [facility] [id number] [address] [place] [id number] May, Type 1 diabetes mellitus wit h other specified complication E10.69 ; Anemia, unspecified type D64.9 ; Gastric peptic ulcer, acute K25.3 and Physical deconditioning R53.81 [facility] [address] [facility] [id number] [address] [place] [phone] May, [facility] [address] [facility] [id number] [address] [place] [phone] May, Type 1 diabetes mellitus wit h other specified complication E10.69 [facility] [address] [facility] [id number] [address] [place] [phone] May, [facility] [address] [facility] [id number] [address] [place] [phone] May, [facility] [address] [facility] [id number] [address] [place] [phone] May, [facility] [address] [facility] [id number] [address] [place] [phone] May, [facility] [address] [facility] [id number] [address] [place] [id number] May, Type 1 diabetes mellitus wit h other specified complication E10.69 ; Depression, unspecified depression type F32.9 ; Anemia, unspecified type D64.9 ; Diabetic peripheral neuropathy E11.42 ; Gastric peptic ulcer, acute K25.3 ; Primary insomnia F51.01 and Pneumonia J18.9 [place] [address] [facility] [id number] [address] [place] [id number] May, [facility] [address] [facility] [id number] [address] [place] [id number] May, IMMUNIZATIONS No Known Immunizations SOCIAL HISTORY Never Assessed REASON FOR VISIT [facility] PLAN OF CARE VITAL SIGNS MEDICATIONS Unknown [...]
--- OUTSIDE RECORDS SUMMARY | 2019-09-28 08:58 | XMS REPORT ---
Author Author Stef HARRELL Organization [facility] Address [address] [place] [address] Care Team Providers Care Video Control Operator Name Role Phone SARI HARRELL Unavailable PROBLEMS Type Condition ICD9-CM Code [id number] Code Onset Dates Condition S tatus SNOMED Code Problem Anemia, unspecified type D64.9 Activ e 077469344 Problem Depression, unspecified depression type F32.9 Active 55691825 Problem Chronic GERD K21.9 Active 5433417 09 Problem Other chronic pain G89.29 Active 8 6349807 Problem Primary insomnia F51.01 Active 397 2004 Problem Diabetic peripheral neuropathy E11.42 Active 648245775 Problem End stage renal disease N18.6 Active 73276897 Problem Type 1 diabetes mellitus with other specified complication E10.69 Active 15197164 ALLERGIES Unknown Allergies SOCIAL HISTORY No smoking Hx information available PLAN OF CARE VITAL SIGNS MEDICATIONS Medication Instructions Dosage Frequency Start Date End Date Duration S tatus Bumetanide 2 MG Orally Once a day 1 tablet 24h 30 da ys Active RESULTS No Results PROCEDURES No Known procedures IMMUNIZATIONS No Known Immunizations
--- OUTSIDE RECORDS SUMMARY | 2019-09-28 08:58 | XMS REPORT ---
Author Author Stef HARRELL Organization [facility] Address [address] [place] [address] Care Team Providers Care Vc++ Developer Name Role Phone SARI HARRELL Unavailable PROBLEMS Type Condition ICD9-CM Code [id number] Code Onset Dates Condition S tatus SNOMED Code Problem Diabetic peripheral neuropathy E11.42 Active 235830085 Problem Type 1 diabetes mellitus with other specified complication E10.69 Active 79252646 Problem Primary insomnia F51.01 Active 397 2004 Problem Depression, unspecified depression type F32.9 Active 18885769 Problem Anemia, unspecified type D64.9 Activ e 836822324 Problem Falls frequently R29.6 Active 279 189298 Problem Bilateral hearing loss, unspecified hearing loss type H91.93 Active 42384749 Problem Other chronic pain G89.29 Active 8 5460977 Problem End stage renal disease N18.6 Active 83666877 Problem Major depression, chronic F34.1 Acti ve 415427467 Problem Chronic GERD K21.9 Active 4405786 09 ALLERGIES No Information ENCOUNTERS Encounter Location Date Diagnosis [facility] [address] [facility] [id number] [address] [place] [address] 20 Oct, 2017 Type 1 diabetes mellitus wit h other specified complication E10.69 ; Diabetic peripheral neuropathy E11.42 and End stage renal disease N18.6 [facility] [address] [facility] [id number] [address] [place] [address] Oct, [facility] [address] [facility] [id number] [address] [place] [address] September, [facility] [address] [facility] [id number] [address] [place] [address] Aug, Effusion of right elbow M25. 421 [facility] [address] [facility] [id number] [address] [place] [address] Aug, Diabetic peripheral neuropat hy E11.42 [facility] [address] [facility] [id number] [address] [place] [address] Jul, [facility] [address] [facility] [id number] [address] [place] [address] Jul, Medicare annual wellness vis it, initial Z00.00 ; Diabetic peripheral neuropathy E11.42 ; End stage renal disease N18.6 ; Type 1 diabetes mellitus with other specified complication E10.69 ; Anemia, unspecified type D64.9 ; Falls frequently R29.6 ; Chronic GERD K21.9 ; Major depression, chronic F34.1 and Bilateral hearing loss, unspecified hearing loss type H91.93 [place] [address] [facility] [id number] [address] [place] [address] Jun, [place] [address] [place] [id number] [address] [place] [address] Jun, Low back pain M54.5 and Prim linwood insomnia F51.01 [place] [address] [facility] [id number] [address] [place] [address] May, Diabetic peripheral neuropat hy E11.42 [place] [address] [place] [id number] [address] [place] [address] May, [place] [address] [place] [id number] [address] [place] [address] May, [place] [address] [place] [id number] [address] [place] [address] May, [place] [address] [facility] [id number] [address] [place] [address] May, Diabetic peripheral neuropat hy E11.42 ; Type 1 diabetes mellitus with other specified complication E10.69 ; Primary insomnia F51.01 ; Depression, unspecified depression type F32.9 ; End stage renal disease N18.6 ; Left foot drop M21.372 and Foot drop, right foot M21.371 [place] [address] [place] [id number] [address] [place] [address] Apr, [facility] [address] [facility] [id number] [address] [place] [address] Apr, [facility] [address] [facility] [id number] [address] [place] [address] Mar, Foot drop, left M21.372 and Foot drop, right M21.371 [facility] [address] [facility] [id number] [address] [place] [address] Mar, [facility] [address] [facility] [id number] [address] [place] [address] Feb, Type 1 diabetes mellitus wit h other specified complication E10.69 and Olecranon bursitis, unspecified laterality M70.20 [facility] [address] [place] [id number] [address] [place] [address] Feb, [facility] [address] [place] [id number] [address] [place] [address] Feb, Diabetic peripheral neuropat hy E11.42 [facility] [address] [facility] [id number] [address] [place] [address] Jan, Type 1 diabetes mellitus wit h other specified complication E10.69 [facility] [address] [facility] [id number] [address] [place] [address] Dec, Type 1 diabetes mellitus wit h other specified complication E10.69 ; Primary insomnia F51.01 ; End stage renal disease N18.6 and Chronic GERD K21.9 [facility] [address] [facility] [id number] [address] [place] [address] Dec, [facility] [address] [facility] [id number] [address] [place] [address] Nov, [facility] [address] [facility] [id number] [address] [place] [address] Oct, Diabetic peripheral neuropat hy E11.42 [facility] [address] [facility] [id number] [address] [place] [address] Oct, [facility] [address] [id number] [address] [place] [address] September, Type 1 diabetes mellitus wit h other specified complication E10.69 [facility] [address] [id number] [address] [place] [address] September, Diabetic peripheral neuropat hy E11.42 [facility] [address] [id number] [address] [place] [address] September, Diabetic peripheral neuropat hy E11.42 ; Type 1 diabetes mellitus with other specified complication E10.69 and End stage renal disease N18.6 [facility] [address] [id number] [address] [place] [address] September, [facility] [address] [id number] [address] [place] [address] September, [facility] [address] [id number] [address] [place] [address] Aug, [facility] [address] [id number] [address] [place] [address] Aug, Low back pain, unspecified b ack pain laterality, unspecified chronicity, with sciatica presence unspecified M54.5 [facility] [address] [id number] [address] [place] [address] Aug, [facility] [address] [id number] [address] [place] [address] Jul, [facility] [address] [facility] [id number] [address] [place] [address] Jul, Low back pain M54.5 ; Other chronic pain G89.29 ; Type 1 diabetes mellitus with other specified complication E10.69 ; Diabetic peripheral neuropathy E11.42 ; Left foot drop M21.372 and Foot drop, right foot M21.371 [facility] [address] [id number] [address] [place] [address] Jul, [facility] [address] [facility] [id number] [address] [place] [address] Jul, [facility] [address] [facility] [id number] [address] [place] [address] Jun, Low back pain, unspecified b ack pain laterality, unspecified chronicity, with sciatica presence unspecified M54.5 [facility] [address] [facility] [id number] [address] [place] [address] Jun, [facility] [address] [facility] [id number] [address] [place] [address] Jun, [facility] [address] [place] [id number] [address] [place] [address] Jun, [facility] [address] [place] [id number] [address] [place] [address] May, Type 1 diabetes mellitus wit h other specified complication E10.69 ; Diabetic peripheral neuropathy E11.42 and End stage renal disease N18.6 [place] [address] [facility] [id number] [address] [place] [address] Apr, Bronchitis J40 [facility] [address] [place] [id number] [address] [place] [address] Apr, Other bursal cyst, left elbo w M71.322 [facility] [address] [place] [id number] [address] [place] [address] Apr, [facility] [address] [place] [id number] [address] [place] [address] Apr, Other bursal cyst, left elbo w M71.322 [facility] [address] [place] [id number] [address] [place] [address] Mar, [facility] [address] [place] [id number] [address] [place] [address] Mar, Rib pain R07.81 and Type 1 d iabetes mellitus with other specified complication E10.69 [facility] [address] [place] [id number] [address] [place] [address] Feb, [facility] [address] [id number] [address] [place] [phone] Feb, [facility] [address] [id number] [address] [place] [address] Dec, [facility] [address] [id number] [address] [place] [address] Dec, [facility] [address] [id number] [address] [place] [address] Nov, Type 1 diabetes mellitus wit h other specified complication E10.69 and End stage renal disease N18.6 [facility] [address] [id number] [address] [place] [address] Nov, [facility] [address] [id number] [address] [place] [address] Nov, [facility] [address] [id number] [address] [place] [address] Nov, [facility] [address] [id number] [address] [place] [address] Nov, [facility] [address] [id number] [address] [place] [address] Nov, [facility] [address] [id number] [address] [place] [address] Oct, [facility] [address] [id number] [address] [place] [phone] Oct, [facility] [address] [id number] [address] [place] [address] September, [facility] [address] [id number] [address] [place] [address] September, Type 1 diabetes mellitus wit h other specified complication E10.69 [facility] [address] [id number] [address] [place] [address] September, [facility] [address] [id number] [address] [place] [address] September, Diabetic peripheral neuropat hy E11.42 ; Type 1 diabetes mellitus with other specified complication E10.69 ; Chronic kidney disease, stage 3 (moderate) N18.3 and Incomplete tear of left rotator cuff M75.112 [facility] [address] [id number] [address] [place] [address] September, [facility] [address] [id number] [address] [place] [address] Aug, [facility] [address] [id number] [address] [place] [address] Aug, [facility] [address] [id number] [address] [place] [address] Aug, Other chronic pain G89.29 an d Pain in left shoulder M25.512 [facility] [address] [id number] [address] [place] [address] Aug, Physical deconditioning R53. 81 ; Pain in right shoulder M25.511 and Other chronic pain G89.29 [facility] [address] [id number] [address] [place] [address] Aug, [facility] [address] [id number] [address] [place] [address] Jul, Type 1 diabetes mellitus wit h other specified complication E10.69 ; Diabetic peripheral neuropathy E11.42 and Physical deconditioning R53.81 [facility] [address] [id number] [address] [place] [address] Jul, [facility] [address] [id number] [address] [place] [address] Jul, [facility] [address] [id number] [address] [place] [address] Jun, [facility] [address] [id number] [address] [place] [address] Jun, Type 1 diabetes mellitus wit h other specified complication E10.69 ; Insomnia G47.00 and Diabetic peripheral neuropathy E11.42 [facility] [address] [id number] [address] [place] [address] 04 Jun, 2015 [facility] [address] [facility] [id number] [address] [place] [address] 03 Jun, 2015 Physical deconditioning R53. 81 [facility] [address] [id number] [address] [place] [address] Jun, [facility] [address] [id number] [address] [place] [address] May, [facility] [address] [id number] [address] [place] [address] May, [facility] [address] [facility] [id number] [address] [place] [address] May, [facility] [address] [facility] [id number] [address] [place] [address] May, [facility] [address] [facility] [id number] [address] [place] [address] May, [facility] [address] [facility] [id number] [address] [place] [address] May, Adjustment disorder with dep ressed mood F43.21 [facility] [address] [facility] [id number] [address] [place] [address] May, Type 1 diabetes mellitus wit h other specified complication E10.69 ; Anemia, unspecified type D64.9 ; Gastric peptic ulcer, acute K25.3 and Physical deconditioning R53.81 [facility] [address] [facility] [id number] [address] [place] [address] May, [facility] [address] [facility] [id number] [address] [place] [address] May, Type 1 diabetes mellitus wit h other specified complication E10.69 [facility] [address] [facility] [id number] [address] [place] [address] May, [facility] [address] [facility] [id number] [address] [place] [address] May, [facility] [address] [facility] [id number] [address] [place] [address] May, [facility] [address] [facility] [id number] [address] [place] [address] May, [place] [address] [facility] [id number] [address] [place] [address] May, Type 1 diabetes mellitus wit h other specified complication E10.69 ; Depression, unspecified depression type F32.9 ; Anemia, unspecified type D64.9 ; Diabetic peripheral neuropathy E11.42 ; Gastric peptic ulcer, acute K25.3 ; Primary insomnia F51.01 and Pneumonia J18.9 [place] [address] [facility] [id number] [address] [place] [address] May, [place] [address] [facility] [id number] [address] [place] [address] May, IMMUNIZATIONS No Known Immunizations SOCIAL HISTORY Never Assessed REASON FOR VISIT refill request PLAN OF CARE VITAL SIGNS MEDICATIONS Medication Instructions Dosage Frequency Start Date End Date Duration S mayus Omeprazole 40 mg Orally Once a day [...]
--- OUTSIDE RECORDS SUMMARY | 2019-09-28 08:58 | XMS REPORT ---
Author Author Stef HARRELL Organization [employer] Address Unknown Phone Unavailable Care Team Providers Care Fruit Or Nut Crops Farm Manager Name Role Phone SARI HARRELL CP Unavailable [...] Start Date End Date Status Dosage Lyrica [facility] [id number] 75 MG TAKE ONE CAP JERONIMO BY MOUTH THREE TIMES DAILY Results No Known Results Summary Purpose [employer] Submission
--- OUTSIDE RECORDS SUMMARY | 2019-09-28 08:58 | XMS REPORT ---
Author Author Stef HOLLIS Organization [facility] Address [address] [place] [address] Care Team Providers Care Stationary Engineer Refrigeration Name Role Phone SHARAD HOLLIS Unavailable PROBLEMS Type Condition ICD9-CM Code [id number] Code Onset Dates Condition S tatus SNOMED Code Problem Anemia, unspecified type D64.9 Activ e 119843449 Problem Primary insomnia F51.01 Active 397 2004 Problem Chronic GERD K21.9 Active 1416277 09 Problem Other chronic pain G89.29 Active 8 4444717 Problem Type 1 diabetes mellitus with other specified complication E10.69 Active 19736991 Problem Depression, unspecified depression type F32.9 Active 73903507 Problem End stage renal disease N18.6 Active 28401620 Problem Diabetic peripheral neuropathy E11.42 Active 966241717 ALLERGIES Substance Reaction Event Type Date Status Penicillin V Potassium Unknown Drug Allergy Apr, Activ e Codeine Sulfate Unknown Drug Allergy Apr, Active SOCIAL HISTORY No smoking Hx information available PLAN OF CARE Activity Details Follow Up prn Reason: VITAL SIGNS Height 66 in 2016-05-03 Weight 222.8 lbs 2016-05-03 Temperature 97.6 degrees Fahrenheit 2016-05-03 Heart Rate 94 bpm 2016-05-03 Respiratory Rate 18 2016-05-03 Oximetry 97 % 2016-05-03 BMI 35.96 kg/m2 2016-05-03 Blood pressure systolic 136 mmHg 2016-05-03 Blood pressure diastolic 80 mmHg 2016-05-03 MEDICATIONS Medication Instructions Dosage Frequency Start Date End Date Duration S tatus Metoprolol Succinate ER 25 MG Orally Once a day 1 tablet 24h Nov, Active Omeprazole 40 MG Orally Once a day 1 tablet 24h 90 Active Glucocard Expression Test - test blood sugar 8h 10 Mar, 201 6 Active Ventolin HFA 108 (90 Base) MCG/ACT Inhalation every 6 hrs 2 puffs a s needed 6h Apr, Active Levemir 100 UNIT/ML Subcutaneous 2 times a day 6 unitsAM and 16 units PM 12h Active NovoLog Flexpen 100 UNIT/ML Subcutaneous 3 times a day 8-8-7 units tidAC 8h 15 Jun, 2015 Active Lasix 80 MG Orally twice a day 1 tablet 12h Active Lyrica 75 MG TAKE ONE CAPSULE BY MOUTH THREE TIMES DAILY 30 Active NovoLog 100 UNIT/ML 8 units tid AC and to correct May Active Glucocard Expression Monitor w/Device as directed Mar Active Zithromax Z-Zhang 250 MG Orally Once a day 2 tablets on the first day, then 1 tablet daily for 4 days 24h Apr, Apr, 5 day(s) Acti ve RESULTS No Results PROCEDURES Procedure Date Ordered Related Diagnosis Body Site MEASURE BLOOD OXYGEN LEVEL May 03, 2016 Office Visit, Est Pt., Level 3 May 03, 2016 IMMUNIZATIONS No Known Immunizations
--- OUTSIDE RECORDS SUMMARY | 2019-09-28 08:58 | XMS REPORT ---
Author Author Stef HARRELL Organization [employer] Address Unknown Phone Unavailable Care Team Providers Care Contract Technical Writer Name Role Phone SARI HARRELL CP Unavailable [...] Instructions Start Date End Date Status Dosage Omeprazole [facility] [id number] 40 MG Orally Once a day 1 tablet Metoprolol Succinate ER [facility] [address]-62 25 MG Orally Once a day December 02, 2015 1 tablet Results No Known Results Summary Purpose [employer] Submission
--- OUTSIDE RECORDS SUMMARY | 2019-09-28 08:58 | XMS REPORT ---
Author Author Stef DAVIS Organization [employer] Address Unknown Phone Unavailable Care Team Providers Care Compressor Repairer Name Role Phone SARI DAVIS Unavailable Allergies No Known Allergies Problems Problem Type Condition Code Onset Dates Condition Statu s Problem Primary insomnia F51.01 Active Problem Pneumonia J18.9 Active Problem Diabetic peripheral neuropathy E11.42 Active Problem Type 1 diabetes mellitus with other specified complica tion E10.69 Active Problem Adjustment disorder with depressed mood F43.21 Active Problem Anemia, unspecified type D64.9 Act lamar Problem Gastric peptic ulcer, acute K25.3 Active Problem Neuropathy G62.9 Active Problem Depression, unspecified depression type F32.9 Active Medications Medication Code System Code Instructions Start Date End Date Status Dosage Lorazepam [facility] [address]-71 0.5 MG Orally Once a day 1 tablet at bedtime Gabapentin [facility] [address]-33 600 MG Orally 3 times a day 1 capsule Results No Known Results Summary Purpose [employer] Submission
--- OUTSIDE RECORDS SUMMARY | 2019-09-28 08:59 | XMS REPORT ---
Author Author Stef DA SILVA Organization [employer] Address Unknown Phone Unavailable Care Team Providers Care Shank Turner Name Role Phone WEST DA SILVA CP [...]
--- OUTSIDE RECORDS SUMMARY | 2019-09-28 08:59 | XMS REPORT ---
Author Author Stef ECHEVERRIA Organization [facility] Address [address] [place] [address] Care Team Providers Care Memorandum Statement Clerk Name Role Phone DAYNA ECHEVERRIA Unavailable PROBLEMS Type Condition ICD9-CM Code [id number] Code Onset Dates Condition S tatus SNOMED Code Problem Anemia, unspecified type D64.9 Activ e 305953022 Problem Depression, unspecified depression type F32.9 Active 87998080 Problem Chronic GERD K21.9 Active 5460452 09 Problem Other chronic pain G89.29 Active 8 5763006 Problem Primary insomnia F51.01 Active 397 2004 Problem Diabetic peripheral neuropathy E11.42 Active 912119366 Problem End stage renal disease N18.6 Active 73111366 Problem Type 1 diabetes mellitus with other specified complication E10.69 Active 60728919 ALLERGIES Substance Reaction Event Type Date Status Penicillin V Potassium Unknown Drug Allergy Jun, Activ e Codeine Sulfate Unknown Drug Allergy Jun, Active SOCIAL HISTORY Never Assessed PLAN OF CARE Activity Details Follow Up prn Reason: VITAL SIGNS Height 66 in 2016-07-01 Weight 225 lbs 2016-07-01 Temperature 98.9 degrees Fahrenheit 2016-07-01 Heart Rate 88 bpm 2016-07-01 Respiratory Rate 20 2016-07-01 BMI 36.31 kg/m2 2016-07-01 Blood pressure systolic 138 mmHg 2016-07-01 Blood pressure diastolic 78 mmHg 2016-07-01 MEDICATIONS Medication Instructions Dosage Frequency Start Date End Date Duration S tatus Stool Softener 100 MG Orally Once a day 1 capsule as needed 24h Active Metoprolol Succinate ER 25 MG Orally Once a day 1 tablet 24h Nov, 90 days Active Lyrica 75 MG 1 tablet 12h Active Levemir 100 UNIT/ML Subcutaneous 2 times a day 6 unitsAM and 18 units PM 12h Active Glucocard Expression Monitor w/Device as directed Mar Active Ventolin HFA 108 (90 Base) MCG/ACT Inhalation every 6 hrs 2 puffs a s needed 6h Apr, Active Bumetanide 2 MG Orally Once a day 1 tablet 24h Active Glucocard Expression Test - test blood sugar 8h Mar, 6 Active NovoLog 100 UNIT/ML 8 units tid AC and to correct May Active NovoLog Flexpen 100 UNIT/ML Subcutaneous 3 times a day 8-8-7 units tidAC 8h 15 Jun, 2015 90 days Active RESULTS Name Result Date Reference Range UA LONG DIP (IN HOUSE) 2016-07-01 Lot # [id number] Exp date 06/08/2017 Clarity clear Color yellow Odor none GLU Negative LEA Negative KET Negative SG 1.025 BLO 2+ pH 5.5 Protein 3+ URO 0.2 NIT Negative JOSEFA Negative Lot # Exp date PROCEDURES Procedure Date Ordered Result Body Site URINALYSIS, AUTO, W/O SCOPE Jul 01, 2016 FQ VISIT ESTABLISHED PATIENT Jul 01, 2016 IMMUNIZATIONS No Known Immunizations MEDICAL (GENERAL) HISTORY Type Description Date Medical History Diabetes Type I Medical History Dialysis-Stage 5 kidney failure Surgical History right knee meniscus repair Surgical History hernia repair Surgical History cholecystectomy Surgical History tonsillectomy Hospitalization History surgeries Hospitalization History DKA 02/23/15 Hospitalization History Dyspnea, Acute Exacerbation CHF, Chronic Renal Failure--[facility]ia [facility] 11/23/15
--- OUTSIDE RECORDS SUMMARY | 2019-09-28 08:59 | XMS REPORT ---
Author Author Stef HARRELL Organization [facility] Address [address] [place] [address] Care Team Providers Care Gaming Associate Name Role Phone SARI HARRELL Unavailable PROBLEMS Type Condition ICD9-CM Code [id number] Code Onset Dates Condition S tatus SNOMED Code Problem Diabetic peripheral neuropathy E11.42 Active 701786847 Problem Type 1 diabetes mellitus with other specified complication E10.69 Active 86670179 Problem Primary insomnia F51.01 Active 397 2004 Problem Depression, unspecified depression type F32.9 Active 56995644 Problem Anemia, unspecified type D64.9 Activ e 703312579 Problem Falls frequently R29.6 Active 279 897600 Problem Bilateral hearing loss, unspecified hearing loss type H91.93 Active 65820915 Problem Other chronic pain G89.29 Active 8 8302115 Problem End stage renal disease N18.6 Active 39575286 Problem Major depression, chronic F34.1 Acti ve 860182867 Problem Chronic GERD K21.9 Active 5566671 09 ALLERGIES No Information ENCOUNTERS Encounter Location Date Diagnosis [facility] [address] [id number] [address] [place] [phone] Oct, [facility] [address] [facility] [place] [id number] [address] [place] [phone] Oct, [facility] [address] [facility] [place] [id number] [address] [place] [phone] September, [facility] [address] [facility] [place] [id number] [address] [place] [phone] Aug, Effusion of right elbow M25. 421 [facility] [address] [facility] [place] [id number] [address] [place] [phone] 13 Aug, 2017 Diabetic peripheral neuropat hy E11.42 [facility] [address] [facility] [place] [id number] [address] [place] [phone] Jul, [facility] [address] [facility] [place] [id number] [address] [place] [phone] Jul, Medicare annual wellness vis it, initial Z00.00 ; Diabetic peripheral neuropathy E11.42 ; End stage renal disease N18.6 ; Type 1 diabetes mellitus with other specified complication E10.69 ; Anemia, unspecified type D64.9 ; Falls frequently R29.6 ; Chronic GERD K21.9 ; Major depression, chronic F34.1 and Bilateral hearing loss, unspecified hearing loss type H91.93 [place] [id number] [facility] [place] [id number] [address] [place] [phone] Jun, [place] [address] [facility] [place] [id number] [address] [place] [phone] Jun, Low back pain M54.5 and Prim linwood insomnia F51.01 [place] [address] [facility] [place] [id number] [address] [place] [address] May, Diabetic peripheral neuropat hy E11.42 [place] [address] [facility] [place] [id number] [address] [place] [phone] May, [facility] [address] [facility] [place] [id number] [address] [place] [phone] May, [facility] [address] [facility] [place] [id number] [address] [place] [phone] May, [facility] [address] [facility] [place] [id number] [address] [place] [address] May, Diabetic peripheral neuropat hy E11.42 ; Type 1 diabetes mellitus with other specified complication E10.69 ; Primary insomnia F51.01 ; Depression, unspecified depression type F32.9 ; End stage renal disease N18.6 ; Left foot drop M21.372 and Foot drop, right foot M21.371 [facility] [address] [facility] [place] [id number] [address] [place] [phone] Apr, [facility] [address] [facility] [place] [id number] [address] [place] [phone] Apr, [facility] [address] [facility] [place] [id number] [address] [place] [address] Mar, Foot drop, left M21.372 and Foot drop, right M21.371 [facility] [address] [facility] [place] [id number] [address] [place] [phone] Mar, [facility] [address] [facility] [place] [id number] [address] [place] [phone] Feb, Type 1 diabetes mellitus wit h other specified complication E10.69 and Olecranon bursitis, unspecified laterality M70.20 [facility] [address] [facility] [place] [id number] [address] [place] [phone] Feb, [facility] [address] [facility] [place] [id number] [address] [place] [address] Feb, Diabetic peripheral neuropat hy E11.42 [place] [address] [facility] [place] [id number] [address] [place] [phone] Jan, Type 1 diabetes mellitus wit h other specified complication E10.69 [facility] [address] [id number] [address] [place] [address] Dec, Type 1 diabetes mellitus wit h other specified complication E10.69 ; Primary insomnia F51.01 ; End stage renal disease N18.6 and Chronic GERD K21.9 [facility] [address] [facility] [place] [id number] [address] [place] [phone] Dec, [facility] [address] [facility] [place] [id number] [address] [place] [phone] Nov, [facility] [address] [facility] [place] [id number] [address] [place] [phone] Oct, Diabetic peripheral neuropat hy E11.42 [facility] [address] [facility] [place] [id number] [address] [place] [phone] Oct, [facility] [address] [facility] [place] [id number] [address] [place] [phone] September, Type 1 diabetes mellitus wit h other specified complication E10.69 [facility] [address] [id number] [address] [place] [address] September, Diabetic peripheral neuropat hy E11.42 [facility] [address] [id number] [address] [place] [address] September, Diabetic peripheral neuropat hy E11.42 ; Type 1 diabetes mellitus with other specified complication E10.69 and End stage renal disease N18.6 [facility] [address] [id number] [address] [place] [phone] September, [facility] [address] [id number] [address] [place] [phone] September, [facility] [address] [id number] [address] [place] [phone] Aug, [facility] [address] [id number] [address] [place] [phone] Aug, Low back pain, unspecified b ack pain laterality, unspecified chronicity, with sciatica presence unspecified M54.5 [facility] [address] [id number] [address] [place] [phone] Aug, [facility] [address] [id number] [address] [place] [phone] Jul, [facility] [address] [id number] [address] [place] [address] Jul, Low back pain M54.5 ; Other chronic pain G89.29 ; Type 1 diabetes mellitus with other specified complication E10.69 ; Diabetic peripheral neuropathy E11.42 ; Left foot drop M21.372 and Foot drop, right foot M21.371 [facility] [address] [id number] [address] [place] [phone] Jul, [facility] [address] [id number] [address] [place] [phone] Jul, [facility] [address] [id number] [address] [place] [phone] Jun, Low back pain, unspecified b ack pain laterality, unspecified chronicity, with sciatica presence unspecified M54.5 [facility] [address] [facility] [place] [id number] [address] [place] [phone] Jun, [facility] [address] [facility] [place] [id number] [address] [place] [phone] Jun, [facility] [address] [facility] [place] [id number] [address] [place] [phone] Jun, [facility] [address] [facility] [place] [id number] [address] [place] [phone] May, Type 1 diabetes mellitus wit h other specified complication E10.69 ; Diabetic peripheral neuropathy E11.42 and End stage renal disease N18.6 [facility] [address] [facility] [place] [id number] [address] [place] [phone] Apr, Bronchitis J40 [facility] [address] [facility] [place] [id number] [address] [place] [phone] Apr, Other bursal cyst, left elbo w M71.322 [facility] [address] [id number] [address] [place] [phone] Apr, [facility] [address] [facility] [place] [id number] [address] [place] [phone] Apr, Other bursal cyst, left elbo w M71.322 [facility] [address] [facility] [place] [id number] [address] [place] [phone] Mar, [facility] [address] [facility] [place] [id number] [address] [place] [phone] Mar, Rib pain R07.81 and Type 1 d iabetes mellitus with other specified complication E10.69 [facility] [address] [facility] [place] [id number] [address] [place] [phone] Feb, [facility] [address] [id number] [address] [place] [phone] Feb, [facility] [address] [id number] [address] [place] [phone] Dec, [facility] [address] [id number] [address] [place] [phone] Dec, [facility] [address] [id number] [address] [place] [phone] Nov, Type 1 diabetes mellitus wit h other specified complication E10.69 and End stage renal disease N18.6 [facility] [address] [id number] [address] [place] [phone] Nov, [facility] [address] [id number] [address] [place] [phone] Nov, [facility] [address] [id number] [address] [place] [phone] Nov, [facility] [address] [id number] [address] [place] [phone] Nov, [facility] [address] [id number] [address] [place] [phone] Nov, [facility] [address] [id number] [address] [place] [phone] Oct, [facility] [address] [id number] [address] [place] [phone] Oct, [facility] [address] [id number] [address] [place] [phone] September, [facility] [address] [id number] [address] [place] [phone] September, Type 1 diabetes mellitus wit h other specified complication E10.69 [facility] [address] [id number] [address] [place] [phone] September, [facility] [address] [id number] [address] [place] [address] September, Diabetic peripheral neuropat hy E11.42 ; Type 1 diabetes mellitus with other specified complication E10.69 ; Chronic kidney disease, stage 3 (moderate) N18.3 and Incomplete tear of left rotator cuff M75.112 [facility] [address] [id number] [address] [place] [phone] September, [facility] [address] [id number] [address] [place] [phone] Aug, [facility] [address] [id number] [address] [place] [phone] Aug, [facility] [address] [id number] [address] [place] [phone] Aug, Other chronic pain G89.29 an d Pain in left shoulder M25.512 [facility] [address] [facility] [place] [id number] [address] [place] [phone] Aug, Physical deconditioning R53. 81 ; Pain in right shoulder M25.511 and Other chronic pain G89.29 [facility] [address] [id number] [address] [place] [phone] Aug, [facility] [address] [id number] [address] [place] [phone] Jul, Type 1 diabetes mellitus wit h other specified complication E10.69 ; Diabetic peripheral neuropathy E11.42 and Physical deconditioning R53.81 [facility] [address] [id number] [address] [place] [phone] Jul, [facility] [address] [id number] [address] [place] [phone] Jul, [facility] [address] [id number] [address] [place] [phone] Jun, [facility] [address] [facility] [place] [id number] [address] [place] [address] Jun, Type 1 diabetes mellitus wit h other specified complication E10.69 ; Insomnia G47.00 and Diabetic peripheral neuropathy E11.42 [facility] [address] [facility] [place] [id number] [address] [place] [phone] 04 Jun, 2015 [facility] [address] [facility] [place] [id number] [address] [place] [phone] Jun, Physical deconditioning R53. 81 [facility] [address] [id number] [address] [place] [phone] Jun, [facility] [address] [facility] [place] [id number] [address] [place] [phone] May, [facility] [address] [facility] [place] [id number] [address] [place] [phone] May, [facility] [address] [facility] [place] [id number] [address] [place] [phone] May, [facility] [address] [facility] [place] [id number] [address] [place] [phone] May, [facility] [address] [facility] [place] [id number] [address] [place] [phone] May, [facility] [address] [facility] [place] [id number] [address] [place] [address] May, Adjustment disorder with dep ressed mood F43.21 [facility] [address] [facility] [place] [id number] [address] [place] [phone] May, Type 1 diabetes mellitus wit h other specified complication E10.69 ; Anemia, unspecified type D64.9 ; Gastric peptic ulcer, acute K25.3 and Physical deconditioning R53.81 [facility] [address] [facility] [place] [id number] [address] [place] [address] May, [facility] [address] [facility] [place] [id number] [address] [place] [phone] May, Type 1 diabetes mellitus wit h other specified complication E10.69 [facility] [address] [facility] [place] [id number] [address] [place] [phone] May, [facility] [address] [facility] [place] [id number] [address] [place] [phone] May, [facility] [address] [facility] [place] [id number] [address] [place] [phone] May, [facility] [address] [facility] [place] [id number] [address] [place] [phone] May, [facility] [address] [facility] [place] [id number] [address] [place] [phone] May, Type 1 diabetes mellitus wit h other specified complication E10.69 ; Depression, unspecified depression type F32.9 ; Anemia, unspecified type D64.9 ; Diabetic peripheral neuropathy E11.42 ; Gastric peptic ulcer, acute K25.3 ; Primary insomnia F51.01 and Pneumonia J18.9 [place] [id number] [facility] [place] [id number] [address] [place] [phone] May, [facility] [address] [facility] [place] [id number] [address] [place] [phone] May, IMMUNIZATIONS No Known Immunizations SOCIAL HISTORY Never Assessed REASON FOR VISIT Requesting return call PLAN OF CARE VITAL SIGNS [...]
--- OUTSIDE RECORDS SUMMARY | 2019-09-28 08:59 | XMS REPORT ---
Author Author Stef DA SILVA Organization [employer] Address Unknown Phone Unavailable Care Team Providers Care Bioinformatics Research Technician Name Role Phone WEST AD SILVA CP Unavailable Allergies No Known Allergies [...]
--- OUTSIDE RECORDS SUMMARY | 2019-09-28 08:59 | XMS REPORT ---
Author Author Stef DAVIS Organization [employer] Address Unknown Phone Unavailable Care Team Providers Care Window Installation Subcontractor Name Role Phone SARI DAVIS CP Unavailable [...]
--- OUTSIDE RECORDS SUMMARY | 2019-09-28 08:59 | XMS REPORT ---
Author Author Stef DAVIS Organization [employer] Address Unknown Phone Unavailable Care Team Providers Care Route Sales Associate Name Role Phone SARI DAVIS Unavailable Allergies [...] Instructions Start Date End Date Status Dosage Levemir [facility] [id number] 100 UNIT/ML Subcutaneous 2 times a day 5 units Blood Glucose Meter ND 0 May 26, 2015 not defined NovoLog [facility] [id number] 100 UNIT/ML Subcutaneous May 26, 2015 8 units tid AC and to correct Results No Known Results Summary Purpose [employer] Submission
--- OUTSIDE RECORDS SUMMARY | 2019-09-28 08:59 | XMS REPORT ---
Author Author Stef HARRELL Organization [facility] Address [address] [place] [address] Care Team Providers Care Reimbursement Analyst Name Role Phone SARI HARRELL Unavailable PROBLEMS Type Condition ICD9-CM Code YCI30-OV Code Onset Dates Condition S tatus SNOMED Code Problem Diabetic peripheral neuropathy E11.42 Active 362640353 Problem Type 1 diabetes mellitus with other specified complication E10.69 Active 96084255 Problem Primary insomnia F51.01 Active 397 2004 Problem Depression, unspecified depression type F32.9 Active 41529203 Problem Anemia, unspecified type D64.9 Activ e 177950119 Problem Falls frequently R29.6 Active 279 210828 Problem Bilateral hearing loss, unspecified hearing loss type H91.93 Active 05879612 Problem Other chronic pain G89.29 Active 8 7638364 Problem End stage renal disease N18.6 Active 18303694 Problem Major depression, chronic F34.1 Acti ve 738503910 Problem Chronic GERD K21.9 Active 3805541 09 ALLERGIES No Information ENCOUNTERS Encounter Location Date Diagnosis [facility] [address] [facility]] [id number] [address] [place] [phone] September, [facility] [address] [facility]] [id number] [address] [place] [phone] Aug, Effusion of right elbow M25. 421 [facility] [address] [facility]] [id number] [address] [place] [phone] Aug, Diabetic peripheral neuropat hy E11.42 [facility] [address] [facility]] [id number] [address] [place] [phone] Jul, [facility] [address] [facility]] [id number] [address] [place] [phone] Jul, Medicare annual wellness vis it, initial Z00.00 ; Diabetic peripheral neuropathy E11.42 ; End stage renal disease N18.6 ; Type 1 diabetes mellitus with other specified complication E10.69 ; Anemia, unspecified type D64.9 ; Falls frequently R29.6 ; Chronic GERD K21.9 ; Major depression, chronic F34.1 and Bilateral hearing loss, unspecified hearing loss type H91.93 [place] [address] [place] [id number] [address] [place] [phone] Jun, [place] [address] [facility]] [id number] [address] [place] [phone] Jun, Low back pain M54.5 and Prim linwood insomnia F51.01 [place] [address] [facility]] [id number] [address] [place] [phone] May, Diabetic peripheral neuropat hy E11.42 [place] [address] [place] [id number] [place] [phone] May, [place] [address] [place] [id number] [address] [place] [phone] May, [place] [address] [place] [id number] [address] [place] [phone] May, [place] [address] [place] [id number] [place] [phone] May, Diabetic peripheral neuropat hy E11.42 ; Type 1 diabetes mellitus with other specified complication E10.69 ; Primary insomnia F51.01 ; Depression, unspecified depression type F32.9 ; End stage renal disease N18.6 ; Left foot drop M21.372 and Foot drop, right foot M21.371 [place] [address] [place] [id number] [address] [place] [phone] Apr, [place] [address] [place] [id number] [place] [phone] Apr, [place] [address] [facility]] [id number] [address] [place] [id number] Mar, Foot drop, left M21.372 and Foot drop, right M21.371 [place] [address] [id number] [address] [place] [phone] Mar, [facility] [address] [id number] [address] [place] [phone] Feb, Type 1 diabetes mellitus wit h other specified complication E10.69 and Olecranon bursitis, unspecified laterality M70.20 [facility] [address] [id number] [address] [place] [id number] Feb, [facility] [address] [id number] [address] [place] [id number] Feb, Diabetic peripheral neuropat hy E11.42 [facility] [address] [id number] [address] [place] [phone] Jan, Type 1 diabetes mellitus wit h other specified complication E10.69 [facility] [address] [id number] [address] [place] [phone] Dec, Type 1 diabetes mellitus wit h other specified complication E10.69 ; Primary insomnia F51.01 ; End stage renal disease N18.6 and Chronic GERD K21.9 [facility] [address] [id number] [address] [place] [phone] Dec, [facility] [address] [id number] [address] [place] [id number] Nov, [facility] [address] [id number] [address] [place] [phone] Oct, Diabetic peripheral neuropat hy E11.42 [facility] [address] [id number] [address] [place] [phone] Oct, [facility] [address] [id number] [address] [place] [phone] September, Type 1 diabetes mellitus wit h other specified complication E10.69 [facility] [address] [id number] [address] [place] [id number] September, Diabetic peripheral neuropat hy E11.42 [facility] [address] [id number] [address] [place] [id number] September, Diabetic peripheral neuropat hy E11.42 ; Type 1 diabetes mellitus with other specified complication E10.69 and End stage renal disease N18.6 [facility] [address] [facility]] [id number] [address] [place] [phone] September, [facility] [address] [id number] [address] [place] [phone] September, [facility] [address] [id number] [address] [place] [phone] Aug, [facility] [address] [id number] [address] [place] [phone] Aug, Low back pain, unspecified b ack pain laterality, unspecified chronicity, with sciatica presence unspecified M54.5 [facility] [address] [facility]] [id number] [address] [place] [phone] Aug, [facility] [address] [facility]] [id number] [address] [place] [id number] Jul, [facility] [address] [facility]] [id number] [address] [place] [phone] Jul, Low back pain M54.5 ; Other chronic pain G89.29 ; Type 1 diabetes mellitus with other specified complication E10.69 ; Diabetic peripheral neuropathy E11.42 ; Left foot drop M21.372 and Foot drop, right foot M21.371 [facility] [address] [facility]] [id number] [address] [place] [phone] Jul, [facility] [address] [facility]] [id number] [address] [place] [phone] Jul, [facility] [address] [facility]] [id number] [address] [place] [id number] Jun, Low back pain, unspecified b ack pain laterality, unspecified chronicity, with sciatica presence unspecified M54.5 [facility] [address] [facility]] [id number] [address] [place] [phone] Jun, [facility] [address] [id number] [address] [place] [phone] Jun, [facility] [address] [id number] [address] [place] [phone] Jun, [facility] [address] [facility]] [id number] [address] [place] [phone] May, Type 1 diabetes mellitus wit h other specified complication E10.69 ; Diabetic peripheral neuropathy E11.42 and End stage renal disease N18.6 [facility] [address] [id number] [address] [place] [phone] Apr, Bronchitis J40 [facility] [address] [facility]] [id number] [address] [place] [id number] Apr, Other bursal cyst, left elbo w M71.322 [facility] [address] [facility]] [id number] [address] [place] [phone] Apr, [facility] [address] [id number] [address] [place] [id number] Apr, Other bursal cyst, left elbo w M71.322 [facility] [address] [id number] [address] [place] [phone] Mar, [facility] [address] [facility]] [id number] [address] [place] [phone] Mar, Rib pain R07.81 and Type 1 d iabetes mellitus with other specified complication E10.69 [facility] [address] [id number] [address] [place] [phone] Feb, [facility] [address] [facility]] [id number] [address] [place] [phone] Feb, [facility] [address] [facility]] [id number] [address] [place] [phone] Dec, [facility] [address] [facility]] [id number] [address] [place] [phone] Dec, [facility] [address] [id number] [address] [place] [phone] Nov, Type 1 diabetes mellitus wit h other specified complication E10.69 and End stage renal disease N18.6 [facility] [address] [id number] [address] [place] [phone] Nov, [facility] [address] [id number] [address] [place] [id number] Nov, [facility] [address] [id number] [address] [place] [id number] Nov, [facility] [address] [id number] [address] [place] [phone] Nov, [facility] [address] [id number] [address] [place] [phone] Nov, [facility] [address] [id number] [address] [place] [phone] Oct, [facility] [address] [id number] [address] [place] [phone] Oct, [facility] [address] [id number] [address] [place] [phone] September, [facility] [address] [id number] [address] [place] [phone] September, Type 1 diabetes mellitus wit h other specified complication E10.69 [facility] [address] [id number] [address] [place] [phone] September, [facility] [address] [id number] [address] [place] [phone] September, Diabetic peripheral neuropat hy E11.42 ; Type 1 diabetes mellitus with other specified complication E10.69 ; Chronic kidney disease, stage 3 (moderate) N18.3 and Incomplete tear of left rotator cuff M75.112 [facility] [address] [id number] [address] [place] [id number] September, [facility] [address] [id number] [address] [place] [phone] Aug, [facility] [address] [id number] [address] [place] [phone] Aug, [facility] [address] [id number] [address] [place] [phone] Aug, Other chronic pain G89.29 an d Pain in left shoulder M25.512 [facility] [address] [id number] [address] [place] [phone] Aug, Physical deconditioning R53. 81 ; Pain in right shoulder M25.511 and Other chronic pain G89.29 [facility] [address] [id number] [address] [place] [phone] Aug, [facility] [address] [id number] [address] [place] [id number] Jul, Type 1 diabetes mellitus wit h other specified complication E10.69 ; Diabetic peripheral neuropathy E11.42 and Physical deconditioning R53.81 [facility] [address] [id number] [address] [place] [id number] Jul, [facility] [address] [id number] [address] [place] [phone] Jul, [facility] [address] [id number] [address] [place] [phone] Jun, [facility] [address] [id number] [address] [place] [phone] Jun, Type 1 diabetes mellitus wit h other specified complication E10.69 ; Insomnia G47.00 and Diabetic peripheral neuropathy E11.42 [facility] [address] [id number] [address] [place] [phone] Jun, [facility] [address] [id number] [address] [place] [phone] Jun, Physical deconditioning R53. 81 [facility] [address] [id number] [address] [place] [phone] Jun, [facility] [address] [facility]] [id number] [address] [place] [phone] May, [facility] [address] [facility]] [id number] [address] [place] [phone] May, [facility] [address] [facility]] [id number] [address] [place] [phone] May, [facility] [address] [facility]] [id number] [address] [place] [phone] May, [facility] [address] [facility]] [id number] [address] [place] [phone] May, [facility] [address] [place] [id number] [address] [place] [phone] May, Adjustment disorder with dep ressed mood F43.21 [facility] [address] [place] [id number] [address] [place] [id number] May, Type 1 diabetes mellitus wit h other specified complication E10.69 ; Anemia, unspecified type D64.9 ; Gastric peptic ulcer, acute K25.3 and Physical deconditioning R53.81 [facility] [address] [facility]] [id number] [address] [place] [id number] May, [facility] [address] [facility]] [id number] [address] [place] [phone] May, Type 1 diabetes mellitus wit h other specified complication E10.69 [facility] [address] [facility]] [id number] [address] [place] [phone] May, [facility] [address] [place] [id number] [address] [place] [phone] May, [facility] [address] [place] [id number] [address] [place] [phone] May, [facility] [address] [place] [id number] [address] [place] [phone] May, [facility] [address] [facility]] [id number] [address] [place] [phone] May, Type 1 diabetes mellitus wit h other specified complication E10.69 ; Depression, unspecified depression type F32.9 ; Anemia, unspecified type D64.9 ; Diabetic peripheral neuropathy E11.42 ; Gastric peptic ulcer, acute K25.3 ; Primary insomnia F51.01 and Pneumonia J18.9 [place] [address] [facility]] [id number] [address] [place] [phone] May, [place] [address] [facility]] [id number] [address] [place] [phone] May, IMMUNIZATIONS No Known Immunizations SOCIAL HISTORY Never Assessed REASON FOR VISIT PLAN OF CARE VITAL SIGNS MEDICATIONS Medication Instructions Dosage Frequency Start Date End Date Duration S tatus NovoLog Flexpen 100 UNIT/ML Sliding scale Active RESULTS No Results PROCEDURES No Known [...]
--- OUTSIDE RECORDS SUMMARY | 2019-09-28 08:59 | XMS REPORT ---
Author Author Stef HARRELL Organization [facility] Address [address] [place] [address] Care Team Providers Care Zigzag Appliquer Name Role Phone SARI HARRELL Unavailable PROBLEMS Type Condition ICD9-CM Code JRW06-PC Code Onset Dates Condition S tatus SNOMED Code Problem Anemia, unspecified type D64.9 Activ e [id number] Problem Depression, unspecified depression type F32.9 Active 13913973 Problem Chronic GERD K21.9 Active 6784675 09 Problem Other chronic pain G89.29 Active 8 1842178 Problem Primary insomnia F51.01 Active 397 2004 Problem Diabetic peripheral neuropathy E11.42 Active 973857967 Problem End stage renal disease N18.6 Active 10522796 Problem Type 1 diabetes mellitus with other specified complication E10.69 Active 25108398 ALLERGIES Substance Reaction Event Type Date Status Penicillin V Potassium Unknown Drug Allergy May, Activ e Codeine Sulfate Unknown Drug Allergy May, Active SOCIAL HISTORY No smoking Hx information available PLAN OF CARE Activity Details Follow Up 3 Months Reason: VITAL SIGNS Height 66 in 2016-05-24 Weight 223 lbs 2016-05-24 Temperature 97.8 degrees Fahrenheit 2016-05-24 Heart Rate 80 bpm 2016-05-24 Respiratory Rate 18 2016-05-24 BMI 35.99 kg/m2 2016-05-24 Blood pressure systolic 140 mmHg 2016-05-24 Blood pressure diastolic 80 mmHg 2016-05-24 MEDICATIONS Medication Instructions Dosage Frequency Start Date End Date Duration S tatus Metoprolol Succinate ER 25 MG Orally Once a day 1 tablet 24h Nov, 90 days Active Levemir 100 UNIT/ML Subcutaneous 2 times a day 6 unitsAM and 18 units PM 12h Active NovoLog Flexpen 100 UNIT/ML Subcutaneous 3 times a day 8-8-7 units tidAC 8h 15 Jun, 2015 90 days Active Lyrica 75 MG TAKE ONE CAPSULE BY MOUTH THREE TIMES DAILY 30 Active Metolazone 5 MG 1 tablet Active Stool Softener 100 MG Orally Once a day 1 capsule as needed 24h Active Omeprazole 40 mg Orally Once a day 1 tablet 24h 90 d ays Active Glucocard Expression Monitor w/Device as directed Mar Active Bumetanide 2 MG Orally Once a day 1 tablet 24h Active Glucocard Expression Test - test blood sugar 8h Mar, 6 Active Ventolin HFA 108 (90 Base) MCG/ACT Inhalation every 6 hrs 2 puffs a s needed 6h Apr, Active RESULTS No Results PROCEDURES Procedure Date Ordered Related Diagnosis Body Site [facility] VISIT ESTABLISHED PATIENT May 24, 2016 Office Visit, Est Pt., Level 4 May 24, 2016 IMMUNIZATIONS No Known Immunizations
--- OUTSIDE RECORDS SUMMARY | 2019-09-28 08:59 | XMS REPORT ---
Author Author Stfe HARRELL Organization [facility] Address [address] [place] [address] Care Team Providers Care Hris Specialist Name Role Phone SARI HARRELL Unavailable PROBLEMS Type Condition ICD9-CM Code [id number] Code Onset Dates Condition S tatus SNOMED Code Problem Diabetic peripheral neuropathy E11.42 Active 725656368 Problem Type 1 diabetes mellitus with other specified complication E10.69 Active 13740919 Problem Primary insomnia F51.01 Active 397 2004 Problem Depression, unspecified depression type F32.9 Active 63949000 Problem Anemia, unspecified type D64.9 Activ e 367223319 Problem Falls frequently R29.6 Active 279 854010 Problem Bilateral hearing loss, unspecified hearing loss type H91.93 Active 10954283 Problem Other chronic pain G89.29 Active 8 4994835 Problem End stage renal disease N18.6 Active 01339717 Problem Major depression, chronic F34.1 Acti ve 699946422 Problem Chronic GERD K21.9 Active 7904471 09 ALLERGIES No Information ENCOUNTERS Encounter Location Date Diagnosis [facility] [address] [facility] [id number] [address] [place] [phone] September, [facility] [address] [facility] [id number] [address] [place] [phone] Aug, Effusion of right elbow M25. 421 [facility] [address] [facility] [id number] [address] [place] [id number] Aug, Diabetic peripheral neuropat hy E11.42 [facility] [address] [facility] [id number] [address] [place] [address] Jul, [facility] [address] [facility] [id number] [address] [place] [address] Jul, Medicare annual wellness vis it, initial Z00.00 ; Diabetic peripheral neuropathy E11.42 ; End stage renal disease N18.6 ; Type 1 diabetes mellitus with other specified complication E10.69 ; Anemia, unspecified type D64.9 ; Falls frequently R29.6 ; Chronic GERD K21.9 ; Major depression, chronic F34.1 and Bilateral hearing loss, unspecified hearing loss type H91.93 [place] [address] [place] [id number] [address] [place] [phone] Jun, [place] [address] [facility] [id number] [address] [place] [phone] Jun, Low back pain M54.5 and Prim linwood insomnia F51.01 [place] [address] [facility] [id number] [address] [place] [address] May, Diabetic peripheral neuropat hy E11.42 [place] [address] [place] [id number] [place] [phone] May, [place] [address] [place] [id number] [address] [place] [phone] May, [place] [address] [place] [id number] [address] [place] [phone] May, [place] [address] [place] [id number] [place] [address] May, Diabetic peripheral neuropat hy E11.42 ; Type 1 diabetes mellitus with other specified complication E10.69 ; Primary insomnia F51.01 ; Depression, unspecified depression type F32.9 ; End stage renal disease N18.6 ; Left foot drop M21.372 and Foot drop, right foot M21.371 [place] [address] [place] [id number] [address] [place] [address] Apr, [place] [address] [place] [id number] [place] [phone] Apr, [place] [address] [facility] [id number] [address] [place] [address] Mar, Foot drop, left M21.372 and Foot drop, right M21.371 [place] [address] [id number] [address] [place] [id number] Mar, [facility] [address] [id number] [address] [place] [phone] Feb, Type 1 diabetes mellitus wit h other specified complication E10.69 and Olecranon bursitis, unspecified laterality M70.20 [facility] [address] [id number] [address] [place] [phone] Feb, [facility] [address] [id number] [address] [place] [phone] Feb, Diabetic peripheral neuropat hy E11.42 [facility] [address] [id number] [address] [place] [address] Jan, Type 1 diabetes mellitus wit h other specified complication E10.69 [facility] [address] [id number] [address] [place] [address] Dec, Type 1 diabetes mellitus wit h other specified complication E10.69 ; Primary insomnia F51.01 ; End stage renal disease N18.6 and Chronic GERD K21.9 [facility] [address] [id number] [address] [place] [phone] Dec, [facility] [address] [id number] [address] [place] [address] Nov, [facility] [address] [id number] [address] [place] [id number] Oct, Diabetic peripheral neuropat hy E11.42 [facility] [address] [id number] [address] [place] [address] Oct, [facility] [address] [id number] [address] [place] [address] September, Type 1 diabetes mellitus wit h other specified complication E10.69 [facility] [address] [id number] [address] [place] [address] September, Diabetic peripheral neuropat hy E11.42 [facility] [address] [id number] [address] [place] [address] September, Diabetic peripheral neuropat hy E11.42 ; Type 1 diabetes mellitus with other specified complication E10.69 and End stage renal disease N18.6 [facility] [address] [facility] [id number] [address] [place] [address] September, [facility] [address] [id number] [address] [place] [phone] September, [facility] [address] [id number] [address] [place] [address] Aug, [facility] [address] [id number] [address] [place] [address] Aug, Low back pain, unspecified b ack pain laterality, unspecified chronicity, with sciatica presence unspecified M54.5 [facility] [address] [facility] [id number] [address] [place] [phone] Aug, [facility] [address] [facility] [id number] [address] [place] [id number] Jul, [facility] [address] [facility] [id number] [address] [place] [address] Jul, Low back pain M54.5 ; Other chronic pain G89.29 ; Type 1 diabetes mellitus with other specified complication E10.69 ; Diabetic peripheral neuropathy E11.42 ; Left foot drop M21.372 and Foot drop, right foot M21.371 [facility] [address] [facility] [id number] [address] [place] [phone] Jul, [facility] [address] [facility] [id number] [address] [place] [phone] Jul, [facility] [address] [facility] [id number] [address] [place] [phone] Jun, Low back pain, unspecified b ack pain laterality, unspecified chronicity, with sciatica presence unspecified M54.5 [facility] [address] [facility] [id number] [address] [place] [phone] Jun, [facility] [address] [id number] [address] [place] [phone] Jun, [facility] [address] [id number] [address] [place] [phone] Jun, [facility] [address] [facility] [id number] [address] [place] [address] May, Type 1 diabetes mellitus wit h other specified complication E10.69 ; Diabetic peripheral neuropathy E11.42 and End stage renal disease N18.6 [facility] [address] [id number] [address] [place] [address] Apr, Bronchitis J40 [facility] [address] [facility] [id number] [address] [place] [address] Apr, Other bursal cyst, left elbo w M71.322 [facility] [address] [facility] [id number] [address] [place] [id number] Apr, [facility] [address] [id number] [address] [place] [address] Apr, Other bursal cyst, left elbo w M71.322 [facility] [address] [id number] [address] [place] [id number] Mar, [facility] [address] [facility] [id number] [address] [place] [address] Mar, Rib pain R07.81 and Type 1 d iabetes mellitus with other specified complication E10.69 [facility] [address] [id number] [address] [place] [phone] Feb, [facility] [address] [facility] [id number] [address] [place] [phone] Feb, [facility] [address] [facility] [id number] [address] [place] [id number] Dec, [facility] [address] [facility] [id number] [address] [place] [phone] Dec, [facility] [address] [id number] [address] [place] [address] Nov, Type 1 diabetes mellitus wit h other specified complication E10.69 and End stage renal disease N18.6 [facility] [address] [id number] [address] [place] [phone] Nov, [facility] [address] [id number] [address] [place] [address] Nov, [facility] [address] [id number] [address] [place] [phone] Nov, [facility] [address] [id number] [address] [place] [phone] Nov, [facility] [address] [id number] [address] [place] [phone] Nov, [facility] [address] [id number] [address] [place] [phone] Oct, [facility] [address] [id number] [address] [place] [address] Oct, [facility] [address] [id number] [address] [place] [phone] September, [facility] [address] [id number] [address] [place] [address] September, Type 1 diabetes mellitus wit h other specified complication E10.69 [facility] [address] [id number] [address] [place] [id number] September, [facility] [address] [id number] [address] [place] [address] September, Diabetic peripheral neuropat hy E11.42 ; Type 1 diabetes mellitus with other specified complication E10.69 ; Chronic kidney disease, stage 3 (moderate) N18.3 and Incomplete tear of left rotator cuff M75.112 [facility] [address] [id number] [address] [place] [id number] September, [facility] [address] [id number] [address] [place] [phone] Aug, [facility] [address] [id number] [address] [place] [id number] Aug, [facility] [address] [id number] [address] [place] [address] Aug, Other chronic pain G89.29 an d Pain in left shoulder M25.512 [facility] [address] [id number] [address] [place] [address] Aug, Physical deconditioning R53. 81 ; Pain in right shoulder M25.511 and Other chronic pain G89.29 [facility] [address] [id number] [address] [place] [address] Aug, [facility] [address] [id number] [address] [place] [address] Jul, Type 1 diabetes mellitus wit h other specified complication E10.69 ; Diabetic peripheral neuropathy E11.42 and Physical deconditioning R53.81 [facility] [address] [id number] [address] [place] [phone] Jul, [facility] [address] [id number] [address] [place] [address] Jul, [facility] [address] [id number] [address] [place] [phone] Jun, [facility] [address] [id number] [address] [place] [id number] Jun, Type 1 diabetes mellitus wit h other specified complication E10.69 ; Insomnia G47.00 and Diabetic peripheral neuropathy E11.42 [facility] [address] [id number] [address] [place] [id number] Jun, [facility] [address] [id number] [address] [place] [address] Jun, Physical deconditioning R53. 81 [facility] [address] [id number] [address] [place] [phone] Jun, [facility] [address] [facility] [id number] [address] [place] [id number] May, [facility] [address] [facility] [id number] [address] [place] [phone] May, [facility] [address] [facility] [id number] [address] [place] [id number] May, [facility] [address] [facility] [id number] [address] [place] [phone] May, [facility] [address] [facility] [id number] [address] [place] [phone] May, [facility] [address] [place] [id number] [address] [place] [address] May, Adjustment disorder with dep ressed mood F43.21 [facility] [address] [place] [id number] [address] [place] [id number] May, Type 1 diabetes mellitus wit h other specified complication E10.69 ; Anemia, unspecified type D64.9 ; Gastric peptic ulcer, acute K25.3 and Physical deconditioning R53.81 [facility] [address] [facility] [id number] [address] [place] [id number] May, [facility] [address] [facility] [id number] [address] [place] [address] May, Type 1 diabetes mellitus wit h other specified complication E10.69 [facility] [address] [facility] [id number] [address] [place] [phone] May, [facility] [address] [place] [id number] [address] [place] [address] May, [facility] [address] [place] [id number] [address] [place] [id number] May, [facility] [address] [place] [id number] [address] [place] [id number] May, [facility] [address] [facility] [id number] [address] [place] [address] May, Type 1 diabetes mellitus wit h other specified complication E10.69 ; Depression, unspecified depression type F32.9 ; Anemia, unspecified type D64.9 ; Diabetic peripheral neuropathy E11.42 ; Gastric peptic ulcer, acute K25.3 ; Primary insomnia F51.01 and Pneumonia J18.9 [place] [address] [facility] [id number] [address] [place] [phone] May, [place] [address] [facility] [id number] [address] [place] [phone] May, IMMUNIZATIONS No Known Immunizations SOCIAL HISTORY Never Assessed REASON FOR VISIT Letter PLAN OF CARE VITAL SIGNS MEDICATIONS Unknown [...]
--- OUTSIDE RECORDS SUMMARY | 2019-09-28 08:59 | XMS REPORT ---
Author Author Stef HARRELL Organization [facility] Address [address] [place] [address] Care Team Providers Care Immunologist Name Role Phone SARI HARRELL Unavailable PROBLEMS Type Condition ICD9-CM Code JFH07-TV Code Onset Dates Condition S tatus SNOMED Code Problem Diabetic peripheral neuropathy E11.42 Active 587475793 Problem Type 1 diabetes mellitus with other specified complication E10.69 Active 91794285 Problem Primary insomnia F51.01 Active 397 2004 Problem Depression, unspecified depression type F32.9 Active 65121889 Problem Anemia, unspecified type D64.9 Activ e 595075573 Problem Falls frequently R29.6 Active 279 471643 Problem Bilateral hearing loss, unspecified hearing loss type H91.93 Active 87721591 Problem Other chronic pain G89.29 Active 8 9575039 Problem End stage renal disease N18.6 Active 33261602 Problem Major depression, chronic F34.1 Acti ve 524476123 Problem Chronic GERD K21.9 Active 0072765 09 ALLERGIES Substance Reaction Event Type Date Status Penicillin V Potassium Unknown Drug Allergy May, Activ e Codeine Sulfate Unknown Drug Allergy May, Active ENCOUNTERS Encounter Location Date Diagnosis [facility] [address] [facility] [id number] [address] [place] [phone] Oct, [facility] [address] [facility] [id number] [address] [place] [phone] Oct, [facility] [address] [facility] [id number] [address] [place] [phone] September, [facility] [address] [facility] [id number] [address] [place] [phone] Aug, Effusion of right elbow M25. 421 [facility] [address] [facility] [id number] [address] [place] [address] Aug, Diabetic peripheral neuropat hy E11.42 [facility] [address] [facility] [id number] [address] [place] [phone] Jul, [place] [address] [facility] [id number] [address] [place] [phone] Jul, Medicare annual wellness vis it, initial Z00.00 ; Diabetic peripheral neuropathy E11.42 ; End stage renal disease N18.6 ; Type 1 diabetes mellitus with other specified complication E10.69 ; Anemia, unspecified type D64.9 ; Falls frequently R29.6 ; Chronic GERD K21.9 ; Major depression, chronic F34.1 and Bilateral hearing loss, unspecified hearing loss type H91.93 [place] [address] [facility] [id number] [address] [place] [phone] Jun, [place] [address] [place] [id number] [place] [phone] Jun, Low back pain M54.5 and Prim linwood insomnia F51.01 [place] [address] [facility] [id number] [address] [place] [phone] May, Diabetic peripheral neuropat hy E11.42 [place] [address] [place] [id number] [address] [place] [phone] May, [place] [address] [place] [id number] [address] [place] [phone] May, [place] [address] [place] [id number] [address] [place] [phone] May, [place] [address] [facility] [id number] [address] [place] [address] May, Diabetic peripheral neuropat hy E11.42 ; Type 1 diabetes mellitus with other specified complication E10.69 ; Primary insomnia F51.01 ; Depression, unspecified depression type F32.9 ; End stage renal disease N18.6 ; Left foot drop M21.372 and Foot drop, right foot M21.371 [place] [address] [place] [id number] [address] [place] [id number] Apr, [facility] [address] [facility] [id number] [address] [place] [phone] Apr, [facility] [address] [facility] [id number] [address] [place] [phone] Mar, Foot drop, left M21.372 and Foot drop, right M21.371 [facility] [address] [facility] [id number] [address] [place] [phone] Mar, [facility] [address] [facility] [id number] [address] [place] [phone] Feb, Type 1 diabetes mellitus wit h other specified complication E10.69 and Olecranon bursitis, unspecified laterality M70.20 [facility] [address] [place] [id number] [address] [place] [phone] Feb, [facility] [address] [place] [id number] [address] [place] [id number] Feb, Diabetic peripheral neuropat hy E11.42 [facility] [address] [facility] [id number] [address] [place] [phone] Jan, Type 1 diabetes mellitus wit h other specified complication E10.69 [facility] [address] [facility] [id number] [address] [place] [phone] Dec, Type 1 diabetes mellitus wit h other specified complication E10.69 ; Primary insomnia F51.01 ; End stage renal disease N18.6 and Chronic GERD K21.9 [facility] [address] [facility] [id number] [address] [place] [phone] Dec, [facility] [address] [facility] [id number] [address] [place] [phone] Nov, [facility] [address] [facility] [id number] [address] [place] [phone] Oct, Diabetic peripheral neuropat hy E11.42 [facility] [address] [facility] [id number] [address] [place] [phone] Oct, [facility] [address] [id number] [address] [place] [phone] September, Type 1 diabetes mellitus wit h other specified complication E10.69 [facility] [address] [id number] [address] [place] [address] September, Diabetic peripheral neuropat hy E11.42 [facility] [address] [id number] [address] [place] [address] September, Diabetic peripheral neuropat hy E11.42 ; Type 1 diabetes mellitus with other specified complication E10.69 and End stage renal disease N18.6 [facility] [address] [id number] [address] [place] [phone] September, [facility] [address] [id number] [address] [place] [phone] September, [facility] [address] [id number] [address] [place] [address] Aug, [facility] [address] [id number] [address] [place] [phone] Aug, Low back pain, unspecified b ack pain laterality, unspecified chronicity, with sciatica presence unspecified M54.5 [facility] [address] [facility] [id number] [address] [place] [phone] Aug, [facility] [address] [facility] [id number] [address] [place] [phone] Jul, [facility] [address] [facility] [id number] [address] [place] [address] Jul, Low back pain M54.5 ; Other chronic pain G89.29 ; Type 1 diabetes mellitus with other specified complication E10.69 ; Diabetic peripheral neuropathy E11.42 ; Left foot drop M21.372 and Foot drop, right foot M21.371 [facility] [address] [id number] [address] [place] [phone] Jul, [facility] [address] [facility] [id number] [address] [place] [phone] Jul, [facility] [address] [facility] [id number] [address] [place] [phone] Jun, Low back pain, unspecified b ack pain laterality, unspecified chronicity, with sciatica presence unspecified M54.5 [facility] [address] [facility] [id number] [address] [place] [phone] Jun, [facility] [address] [facility] [id number] [address] [place] [phone] Jun, [facility] [address] [facility] [id number] [address] [place] [phone] Jun, [facility] [address] [place] [id number] [address] [place] [phone] May, Type 1 diabetes mellitus wit h other specified complication E10.69 ; Diabetic peripheral neuropathy E11.42 and End stage renal disease N18.6 [facility] [address] [facility] [id number] [address] [place] [address] Apr, Bronchitis J40 [facility] [address] [facility] [id number] [address] [place] [phone] Apr, Other bursal cyst, left elbo w M71.322 [facility] [address] [place] [id number] [address] [place] [id number] Apr, [facility] [address] [facility] [id number] [address] [place] [phone] Apr, Other bursal cyst, left elbo w M71.322 [facility] [address] [facility] [id number] [address] [place] [phone] Mar, [facility] [address] [place] [id number] [address] [place] [address] Mar, Rib pain R07.81 and Type 1 d iabetes mellitus with other specified complication E10.69 [facility] [address] [facility] [id number] [address] [place] [phone] Feb, [facility] [address] [id number] [address] [place] [phone] Feb, [facility] [address] [id number] [address] [place] [phone] Dec, [facility] [address] [id number] [address] [place] [address] Dec, [facility] [address] [id number] [address] [place] [phone] Nov, Type 1 diabetes mellitus wit h other specified complication E10.69 and End stage renal disease N18.6 [facility] [address] [id number] [address] [place] [phone] Nov, [facility] [address] [id number] [address] [place] [phone] Nov, [facility] [address] [id number] [address] [place] [id number] Nov, [facility] [address] [id number] [address] [place] [phone] Nov, [facility] [address] [id number] [address] [place] [phone] Nov, [facility] [address] [id number] [address] [place] [phone] Oct, [facility] [address] [id number] [address] [place] [phone] Oct, [facility] [address] [id number] [address] [place] [phone] September, [facility] [address] [id number] [address] [place] [phone] September, Type 1 diabetes mellitus wit h other specified complication E10.69 [facility] [address] [id number] [address] [place] [phone] September, [facility] [address] [id number] [address] [place] [address] September, Diabetic peripheral neuropat hy E11.42 ; Type 1 diabetes mellitus with other specified complication E10.69 ; Chronic kidney disease, stage 3 (moderate) N18.3 and Incomplete tear of left rotator cuff M75.112 [facility] [address] [id number] [address] [place] [phone] September, [facility] [address] [id number] [address] [place] [phone] Aug, [facility] [address] [id number] [address] [place] [phone] Aug, [facility] [address] [id number] [address] [place] [id number] Aug, Other chronic pain G89.29 an d Pain in left shoulder M25.512 [facility] [address] [id number] [address] [place] [address] Aug, Physical deconditioning R53. 81 ; Pain in right shoulder M25.511 and Other chronic pain G89.29 [facility] [address] [id number] [address] [place] [phone] Aug, [facility] [address] [id number] [address] [place] [phone] Jul, Type 1 diabetes mellitus wit h other specified complication E10.69 ; Diabetic peripheral neuropathy E11.42 and Physical deconditioning R53.81 [facility] [address] [id number] [address] [place] [address] Jul, [facility] [address] [id number] [address] [place] [id number] Jul, [facility] [address] [id number] [address] [place] [address] Jun, [facility] [address] [id number] [address] [place] [id number] Jun, Type 1 diabetes mellitus wit h other specified complication E10.69 ; Insomnia G47.00 and Diabetic peripheral neuropathy E11.42 [facility] [address] [id number] [address] [place] [phone] 04 Jun, 2015 [facility] [address] [facility] [id number] [address] [place] [phone] Jun, Physical deconditioning R53. 81 [facility] [address] [id number] [address] [place] [phone] Jun, [facility] [address] [id number] [address] [place] [phone] May, [facility] [address] [id number] [address] [place] [id number] May, [facility] [address] [facility] [id number] [address] [place] [phone] May, [facility] [address] [facility] [id number] [address] [place] [phone] May, [facility] [address] [facility] [id number] [address] [place] [phone] May, [facility] [address] [facility] [id number] [address] [place] [phone] May, Adjustment disorder with dep ressed mood F43.21 [facility] [address] [facility] [id number] [address] [place] [id number] May, Type 1 diabetes mellitus wit h other specified complication E10.69 ; Anemia, unspecified type D64.9 ; Gastric peptic ulcer, acute K25.3 and Physical deconditioning R53.81 [facility] [address] [facility] [id number] [address] [place] [id number] May, [facility] [address] [facility] [id number] [address] [place] [phone] May, Type 1 diabetes mellitus wit h other specified complication E10.69 [facility] [address] [facility] [id number] [address] [place] [phone] May, [place] [address] [facility] [id number] [address] [place] [phone] May, [place] [address] [facility] [id number] [address] [place] [phone] May, [place] [address] [facility] [id number] [address] [place] [phone] May, [place] [address] [facility] [id number] [address] [place] [address] May, Type 1 diabetes mellitus wit h other specified complication E10.69 ; Depression, unspecified depression type F32.9 ; Anemia, unspecified type D64.9 ; Diabetic peripheral neuropathy E11.42 ; Gastric peptic ulcer, acute K25.3 ; Primary insomnia F51.01 and Pneumonia J18.9 [place] [address] [place] [id number] [address] [place] [phone] May, [place] [address] [facility] [id number] [address] [place] [phone] May, IMMUNIZATIONS No Known Immunizations SOCIAL HISTORY Never Assessed REASON FOR VISIT Depression f/u----DBennettRN, foot drop, needing script and letter of medical ne cessity for insurance PLAN OF CARE Activity Details Follow Up 3 Months Reason:DMT1/ESRD VITAL SIGNS Height 66 in 2017-05-11 Weight 215 lbs 2017-05-11 Temperature 98.6 degrees Fahrenheit 2017-05-11 Heart Rate 60 bpm 2017-05-11 Respiratory Rate 20 2017-05-11 BMI 34.70 kg/m2 2017-05-11 Blood pressure systolic 132 mmHg 2017-05-11 Blood pressure diastolic 70 mmHg 2017-05-11 MEDICATIONS Medication Instructions Dosage Frequency Start Date End Date Duration S tatus Metolazone 5 MG 1 tablet Not-Parag ing Prozac 20 MG Orally Once a day 1 capsule in the morning 24h Active Stool Softener 100 MG Orally Once a day 1 capsule as needed 24h Active Caltrate 600 1500 (600 Ca) MG Not-Taking Lyrica 75 MG Orally Three times a day 1 capsule 8h 30 days Active NovoLog Flexpen 100 UNIT/ML Sliding scale Not-Taking Glucagon Emergency 1 MG Injection one time as directed September, 017 1 dose Not-Taking Glucocard Expression Monitor w/Device as directed Mar Not-Taking Omeprazole 40 MG Orally Once a day 1 tablet 24h 30 Active Bumetanide 2 MG Orally Once a day 1 tablet 24h Active Metoprolol Succinate ER 25 MG Orally Once a day 1 tablet 24h Nov, 90 days Active Levemir FlexTouch 100 UNIT/ML Subcutaneous Once a day inject 14 uni ts at HS 24h Not-Taking Ventolin HFA 108 (90 Base) MCG/ACT Inhalation every 6 hrs 2 puffs a s needed 6h Apr, Active Calcium Acetate (Phos Binder) 667 MG Orally Three times a day 1 tablet 8 h Active Trazodone HCl 100 MG Orally Once a day 1 tablet at bedtime as neede d 24h Dec, 90 days Active Glucocard Expression Test - test blood sugar 8h Mar, 6 Not-Taking Test strips as directed Feb, Feb, 90 day s Not-Taking NovoLog 100 UNIT/ML per pump May, Active RESULTS No Results PROCEDURES Procedure Date Ordered Result Body Site FQ VISIT ESTABLISHED PATIENT May 11, 2017 F[facility]HC VISIT ESTABLISHED PATIENT May 11, 2017 INSTRUCTIONS MEDICATIONS ADMINISTERED No Known Medications [...]
--- OUTSIDE RECORDS SUMMARY | 2019-09-28 08:59 | XMS REPORT ---
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 Role Phone MAITE ZHANG CP Unavailable Allergies No Known Allergies Problems Problem Type Condition Code Onset Dates Condition Statu s Assessment Adjustment disorder with depressed mood F43.21 Active Problem Primary insomnia F51.01 Active Problem Pneumonia J18.9 Active Problem Diabetic peripheral neuropathy E11.42 Active Problem Type 1 diabetes mellitus with other specified complica tion E10.69 Active Problem Adjustment disorder with depressed mood F43.21 Active Problem Anemia, unspecified type D64.9 Act lamar Problem Gastric peptic ulcer, acute K25.3 Active Problem Neuropathy G62.9 Active Problem Depression, unspecified depression type F32.9 Active Medications No Known Medications Procedures Procedure Coding System Code Date Psych diagnostic evaluation, established patient CPT-4 [id number] May 26, 2015 Results No Known Results Summary Purpose [employer] Submission
--- OUTSIDE RECORDS SUMMARY | 2019-09-28 08:59 | XMS REPORT ---
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
--- OUTSIDE RECORDS SUMMARY | 2019-09-28 08:59 | XMS REPORT ---
Author Author Stef HARRELL Organization [facility] Address [address] [place] [address] Care Team Providers Care Refinish Technician Name Role Phone SARI HARRELL Unavailable PROBLEMS Type Condition ICD9-CM Code UJJ31-JJ Code Onset Dates Condition S tatus SNOMED Code Problem Diabetic peripheral neuropathy E11.42 Active 855957266 Problem Type 1 diabetes mellitus with other specified complication E10.69 Active 79481154 Problem Primary insomnia F51.01 Active 397 2004 Problem Depression, unspecified depression type F32.9 Active 24165948 Problem Anemia, unspecified type D64.9 Activ e 048882090 Problem Falls frequently R29.6 Active 279 117471 Problem Bilateral hearing loss, unspecified hearing loss type H91.93 Active 24428742 Problem Other chronic pain G89.29 Active 8 4172416 Problem End stage renal disease N18.6 Active 71435923 Problem Major depression, chronic F34.1 Acti ve 747964881 Problem Chronic GERD K21.9 Active 2762396 09 ALLERGIES No Information ENCOUNTERS Encounter Location Date Diagnosis [facility] [address] [facility] [id number] [address] [place] [phone] 20 Oct, 2017 Type 1 diabetes mellitus wit h other specified complication E10.69 ; Diabetic peripheral neuropathy E11.42 and End stage renal disease N18.6 [facility] [address] [facility] [id number] [address] [place] [phone] Oct, [facility] [address] [facility] [id number] [address] [place] [address] September, [facility] [address] [facility] [id number] [address] [place] [address] Aug, Effusion of right elbow M25. 421 [facility] [address] [facility] [id number] [address] [place] [phone] Aug, Diabetic peripheral neuropat hy E11.42 [facility] [address] [facility] [id number] [address] [place] [phone] Jul, [facility] [address] [facility] [id number] [address] [place] [phone] Jul, Medicare annual wellness vis it, initial Z00.00 ; Diabetic peripheral neuropathy E11.42 ; End stage renal disease N18.6 ; Type 1 diabetes mellitus with other specified complication E10.69 ; Anemia, unspecified type D64.9 ; Falls frequently R29.6 ; Chronic GERD K21.9 ; Major depression, chronic F34.1 and Bilateral hearing loss, unspecified hearing loss type H91.93 [place] [address] [facility] [id number] [address] [place] [phone] Jun, [place] [address] [place] [id number] [address] [place] [phone] Jun, Low back pain M54.5 and Prim linwood insomnia F51.01 [place] [address] [facility] [id number] [address] [place] [phone] May, Diabetic peripheral neuropat hy E11.42 [place] [address] [place] [id number] [address] [place] [phone] May, [place] [address] [place] [id number] [address] [place] [phone] May, [place] [address] [place] [id number] [address] [place] [phone] May, [place] [address] [facility] [id number] [address] [place] [address] May, Diabetic peripheral neuropat hy E11.42 ; Type 1 diabetes mellitus with other specified complication E10.69 ; Primary insomnia F51.01 ; Depression, unspecified depression type F32.9 ; End stage renal disease N18.6 ; Left foot drop M21.372 and Foot drop, right foot M21.371 [place] [address] [place] [id number] [address] [place] [phone] Apr, [facility] [address] [facility] [id number] [address] [place] [phone] Apr, [facility] [address] [facility] [id number] [address] [place] [phone] Mar, Foot drop, left M21.372 and Foot drop, right M21.371 [facility] [address] [facility] [id number] [address] [place] [phone] Mar, [facility] [address] [facility] [id number] [address] [place] [phone] Feb, Type 1 diabetes mellitus wit h other specified complication E10.69 and Olecranon bursitis, unspecified laterality M70.20 [facility] [address] [place] [id number] [address] [place] [phone] Feb, [facility] [address] [place] [id number] [address] [place] [phone] Feb, Diabetic peripheral neuropat hy E11.42 [facility] [address] [facility] [id number] [address] [place] [phone] Jan, Type 1 diabetes mellitus wit h other specified complication E10.69 [facility] [address] [facility] [id number] [address] [place] [phone] Dec, Type 1 diabetes mellitus wit h other specified complication E10.69 ; Primary insomnia F51.01 ; End stage renal disease N18.6 and Chronic GERD K21.9 [facility] [address] [facility] [id number] [address] [place] [phone] Dec, [facility] [address] [facility] [id number] [address] [place] [phone] Nov, [facility] [address] [facility] [id number] [address] [place] [phone] Oct, Diabetic peripheral neuropat hy E11.42 [facility] [address] [facility] [id number] [address] [place] [phone] Oct, [facility] [address] [id number] [address] [place] [phone] September, Type 1 diabetes mellitus wit h other specified complication E10.69 [facility] [address] [id number] [address] [place] [phone] September, Diabetic peripheral neuropat hy E11.42 [facility] [address] [id number] [address] [place] [phone] September, Diabetic peripheral neuropat hy E11.42 ; Type 1 diabetes mellitus with other specified complication E10.69 and End stage renal disease N18.6 [facility] [address] [id number] [address] [place] [phone] September, [facility] [address] [id number] [address] [place] [phone] September, [facility] [address] [id number] [address] [place] [phone] Aug, [facility] [address] [id number] [address] [place] [phone] Aug, Low back pain, unspecified b ack pain laterality, unspecified chronicity, with sciatica presence unspecified M54.5 [facility] [address] [id number] [address] [place] [phone] Aug, [facility] [address] [id number] [address] [place] [phone] Jul, [facility] [address] [facility] [id number] [address] [place] [phone] Jul, Low back pain M54.5 ; Other chronic pain G89.29 ; Type 1 diabetes mellitus with other specified complication E10.69 ; Diabetic peripheral neuropathy E11.42 ; Left foot drop M21.372 and Foot drop, right foot M21.371 [facility] [address] [id number] [address] [place] [phone] Jul, [facility] [address] [facility] [id number] [address] [place] [phone] Jul, [facility] [address] [facility] [id number] [address] [place] [phone] Jun, Low back pain, unspecified b ack pain laterality, unspecified chronicity, with sciatica presence unspecified M54.5 [facility] [address] [facility] [id number] [address] [place] [phone] Jun, [facility] [address] [facility] [id number] [address] [place] [phone] Jun, [facility] [address] [place] [id number] [address] [place] [phone] Jun, [facility] [address] [place] [id number] [address] [place] [phone] May, Type 1 diabetes mellitus wit h other specified complication E10.69 ; Diabetic peripheral neuropathy E11.42 and End stage renal disease N18.6 [place] [address] [facility] [id number] [address] [place] [phone] Apr, Bronchitis J40 [facility] [address] [place] [id number] [address] [place] [phone] Apr, Other bursal cyst, left elbo w M71.322 [facility] [address] [place] [id number] [address] [place] [phone] Apr, [facility] [address] [place] [id number] [address] [place] [phone] Apr, Other bursal cyst, left elbo w M71.322 [facility] [address] [place] [id number] [address] [place] [phone] Mar, [facility] [address] [place] [id number] [address] [place] [phone] Mar, Rib pain R07.81 and Type 1 d iabetes mellitus with other specified complication E10.69 [facility] [address] [place] [id number] [address] [place] [phone] Feb, [facility] [address] [id number] [address] [place] [phone] Feb, [facility] [address] [id number] [address] [place] [phone] Dec, [facility] [address] [id number] [address] [place] [phone] Dec, [facility] [address] [id number] [address] [place] [phone] Nov, Type 1 diabetes mellitus wit h other specified complication E10.69 and End stage renal disease N18.6 [facility] [address] [id number] [address] [place] [phone] Nov, [facility] [address] [id number] [address] [place] [phone] Nov, [facility] [address] [id number] [address] [place] [phone] Nov, [facility] [address] [id number] [address] [place] [phone] Nov, [facility] [address] [id number] [address] [place] [phone] Nov, [facility] [address] [id number] [address] [place] [phone] Oct, [facility] [address] [id number] [address] [place] [phone] Oct, [facility] [address] [id number] [address] [place] [phone] September, [facility] [address] [id number] [address] [place] [phone] September, Type 1 diabetes mellitus wit h other specified complication E10.69 [facility] [address] [id number] [address] [place] [phone] September, [facility] [address] [id number] [address] [place] [phone] September, Diabetic peripheral neuropat hy E11.42 ; Type 1 diabetes mellitus with other specified complication E10.69 ; Chronic kidney disease, stage 3 (moderate) N18.3 and Incomplete tear of left rotator cuff M75.112 [facility] [address] [id number] [address] [place] [phone] September, [facility] [address] [id number] [address] [place] [phone] Aug, [facility] [address] [id number] [address] [place] [phone] Aug, [facility] [address] [id number] [address] [place] [phone] Aug, Other chronic pain G89.29 an d Pain in left shoulder M25.512 [facility] [address] [id number] [address] [place] [phone] Aug, Physical deconditioning R53. 81 ; Pain in right shoulder M25.511 and Other chronic pain G89.29 [facility] [address] [id number] [address] [place] [phone] Aug, [facility] [address] [id number] [address] [place] [phone] Jul, Type 1 diabetes mellitus wit h other specified complication E10.69 ; Diabetic peripheral neuropathy E11.42 and Physical deconditioning R53.81 [facility] [address] [id number] [address] [place] [phone] Jul, [facility] [address] [id number] [address] [place] [phone] Jul, [facility] [address] [id number] [address] [place] [phone] Jun, [facility] [address] [id number] [address] [place] [phone] Jun, Type 1 diabetes mellitus wit h other specified complication E10.69 ; Insomnia G47.00 and Diabetic peripheral neuropathy E11.42 [facility] [address] [id number] [address] [place] [phone] 04 Jun, 2015 [facility] [address] [facility] [id number] [address] [place] [phone] 03 Jun, 2015 Physical deconditioning R53. 81 [facility] [address] [id number] [address] [place] [phone] Jun, [facility] [address] [id number] [address] [place] [phone] May, [facility] [address] [id number] [address] [place] [phone] May, [facility] [address] [facility] [id number] [address] [place] [phone] May, [facility] [address] [facility] [id number] [address] [place] [phone] May, [facility] [address] [facility] [id number] [address] [place] [phone] May, [facility] [address] [facility] [id number] [address] [place] [phone] May, Adjustment disorder with dep ressed mood F43.21 [facility] [address] [facility] [id number] [address] [place] [phone] May, Type 1 diabetes mellitus wit h other specified complication E10.69 ; Anemia, unspecified type D64.9 ; Gastric peptic ulcer, acute K25.3 and Physical deconditioning R53.81 [facility] [address] [facility] [id number] [address] [place] [phone] May, [facility] [address] [facility] [id number] [address] [place] [phone] May, Type 1 diabetes mellitus wit h other specified complication E10.69 [facility] [address] [facility] [id number] [address] [place] [phone] May, [facility] [address] [facility] [id number] [address] [place] [phone] May, [facility] [address] [facility] [id number] [address] [place] [phone] May, [facility] [address] [facility] [id number] [address] [place] [phone] May, [place] [address] [facility] [id number] [address] [place] [phone] May, Type 1 diabetes mellitus wit h other specified complication E10.69 ; Depression, unspecified depression type F32.9 ; Anemia, unspecified type D64.9 ; Diabetic peripheral neuropathy E11.42 ; Gastric peptic ulcer, acute K25.3 ; Primary insomnia F51.01 and Pneumonia J18.9 [place] [address] [facility] [id number] [address] [place] [phone] May, [place] [address] [facility] [id number] [address] [place] [phone] May, IMMUNIZATIONS No Known Immunizations SOCIAL HISTORY Never Assessed REASON FOR VISIT medication refill PLAN OF CARE VITAL SIGNS MEDICATIONS Medication Instructions Dosage Frequency Start Date End Date Duration S tatus Trazodone HCl 100 MG Orally Once a day 1 tablet at bedtime as neede d 24h Dec, 90 days Active Tramadol HCl 50 mg Orally 3 times a day 1 tablet as needed 8h 2 7 Jul, 2016 28 days Active RESULTS No Results PROCEDURES No [...]
--- OUTSIDE RECORDS SUMMARY | 2019-09-28 09:00 | XMS REPORT ---
Author Author Stef HARRELL Organization [employer] Address Unknown Phone Unavailable Care Team Providers Care Finance Business Manager Name Role Phone SARI HARRELL CP [...]
--- OUTSIDE RECORDS SUMMARY | 2019-09-28 09:00 | XMS REPORT ---
Author Author Stef HARRELL Organization [facility] Address [address] [place] [address] Care Team Providers Care Lead Neurodiagnostic Technologist Name Role Phone SARI HARRELL Unavailable PROBLEMS Type Condition ICD9-CM Code SYB34-DC Code Onset Dates Condition S tatus SNOMED Code Problem Anemia, unspecified type D64.9 Activ e [id number] Problem Depression, unspecified depression type F32.9 Active 90012649 Problem Chronic GERD K21.9 Active 2748089 09 Problem Other chronic pain G89.29 Active 8 0313358 Problem Primary insomnia F51.01 Active 397 2004 Problem Diabetic peripheral neuropathy E11.42 Active 353337956 Problem End stage renal disease N18.6 Active 95492794 Problem Type 1 diabetes mellitus with other specified complication E10.69 Active 41104635 ALLERGIES No Information SOCIAL HISTORY Never Assessed PLAN OF CARE VITAL SIGNS MEDICATIONS Medication Instructions Dosage Frequency Start Date End Date Duration S tatus Glucagon Emergency 1 MG Injection one time as directed 21 September, 2 017 1 dose Active RESULTS No Results PROCEDURES No Known [...]
--- OUTSIDE RECORDS SUMMARY | 2019-09-28 09:00 | XMS REPORT ---
Author Author Stef HARRELL Organization [employer] Address Unknown Phone Unavailable Care Team Providers Care Soiled Linen Distributor Name Role Phone SARI HARRELL CP Unavailable [...] Instructions Start Date End Date Status Dosage Metoprolol Tartrate [facility] [address]-00 25 MG Orally Twice a day J [facility] 2015 1/2 tablet Results No Known Results Summary Purpose [employer] Submission
--- OUTSIDE RECORDS SUMMARY | 2019-09-28 09:00 | XMS REPORT ---
Author Author Stef HARRELL Organization [facility] Address [address] [place] [address] Care Team Providers Care Churner Name Role Phone SARI HARRELL Unavailable PROBLEMS Type Condition ICD9-CM Code XXU84-QY Code Onset Dates Condition S tatus SNOMED Code Problem Anemia, unspecified type D64.9 Activ e 706761283 Problem Depression, unspecified depression type F32.9 Active 63081422 Problem Chronic GERD K21.9 Active 3108254 09 Problem Other chronic pain G89.29 Active 8 8631284 Problem Primary insomnia F51.01 Active 397 2004 Problem Diabetic peripheral neuropathy E11.42 Active 281658225 Problem End stage renal disease N18.6 Active 51299492 Problem Type 1 diabetes mellitus with other specified complication E10.69 Active 28812601 ALLERGIES Substance Reaction Event Type Date Status Penicillin V Potassium Unknown Drug Allergy September, Activ e Codeine Sulfate Unknown Drug Allergy September, Active SOCIAL HISTORY Never Assessed PLAN OF CARE Activity Details Follow Up 3 Months Reason: VITAL SIGNS Height 66 in 2016-09-21 Weight 239.1 lbs 2016-09-21 Temperature 97.4 degrees Fahrenheit 2016-09-21 Heart Rate 76 bpm 2016-09-21 Respiratory Rate 20 2016-09-21 BMI 38.59 kg/m2 2016-09-21 Blood pressure systolic 132 mmHg 2016-09-21 Blood pressure diastolic 80 mmHg 2016-09-21 MEDICATIONS Medication Instructions Dosage Frequency Start Date End Date Duration S tatus Glucocard Expression Test - test blood sugar 8h 10 Mar, 6 Active Lyrica 75 MG Orally Three times a day 1 capsule 8h Active Metoprolol Succinate ER 25 MG Orally Once a day 1 tablet 24h Nov, 90 days Active Levemir FlexTouch 100 UNIT/ML INJECT 16 UNITS SUBCUTANEOUSLY IN THE MORNING AND 30 UNITS IN THE EVENING 30 Active Glucocard Expression Monitor w/Device as directed Mar Active Glucagon Emergency 1 MG Injection one time as directed September, 017 1 dose Active Caltrate 600 1500 (600 Ca) MG Active Stool Softener 100 MG Orally Once a day 1 capsule as needed 24h Active Bumetanide 2 MG Orally Once a day 1 tablet 24h Active NovoLog Flexpen 100 UNIT/ML INJECT 8 UNI TS SUBCUTANEOUSLY WITH BREAKFAST, 8 UNITS WITH LUNCH, AND 7 UNITS WITH DINNER. 31 Active RESULTS No Results PROCEDURES Procedure Date Ordered Result Body Site [facility] VISIT ESTABLISHED PATIENT September 21, 2016 IMMUNIZATIONS No Known Immunizations MEDICAL (GENERAL) [...]
--- OUTSIDE RECORDS SUMMARY | 2019-09-28 09:00 | XMS REPORT ---
Author Author Stef DA SILVA Organization [employer] Address Unknown Phone Unavailable Care Team Providers Care Sack Repairer Name Role Phone WEST DA SILVA CP [...]
--- OUTSIDE RECORDS SUMMARY | 2019-09-28 09:00 | XMS REPORT ---
Author Author Stef DA SILVA Organization [employer] Address Unknown Phone Unavailable Care Team Providers Care Health Science Instructor Name Role Phone WEST DA SILVA CP [...]
--- OUTSIDE RECORDS SUMMARY | 2019-09-28 09:00 | XMS REPORT ---
Author Author Stef DA SILVA Organization [employer] Address Unknown Phone Unavailable Care Team Providers Care Supply Chain Specialist Name Role Phone WEST DA SILVA CP Unavailable Allergies No Known Allergies Problems Problem Type Condition Code Onset Dates Condition Statu s Problem Pneumonia J18.9 Active Assessment Type 1 diabetes mellitus with other specified complica tion E10.69 Active Problem Type 1 diabetes mellitus with other specified complica tion E10.69 Active Problem Neuropathy G62.9 Active Problem Diabetic peripheral neuropathy E11.42 Active Problem Gastric peptic ulcer, acute K25.3 Active Problem Primary insomnia F51.01 Active Problem Depression, unspecified depression type F32.9 Active Problem Anemia, unspecified type D64.9 Act lamar Medications Medication Code System Code Instructions Start Date End Date Status Dosage NovoLog Mix 70/30 [facility] [address]-97 (70-30) 100 UN IT/ML Subcutaneous before meals and at bedtime sliding sca le, takes between 6-8 units Levemir [facility] [address]-37 100 UNIT/ML Subcutaneous at bedtime 10 units Results No Known Results Summary Purpose [employer] Submission
--- OUTSIDE RECORDS SUMMARY | 2019-09-28 09:00 | XMS REPORT ---
Author Author Stef DAVIS Organization [employer] Address Unknown Phone Unavailable Care Team Providers Care Medical Records Analyst Name Role Phone SARI DAVIS CP Unavailable [...]
--- OUTSIDE RECORDS SUMMARY | 2019-09-28 09:00 | XMS REPORT ---
Author Author Stef DAVIS Organization [employer] Address Unknown Phone Unavailable Care Team Providers Care Clerk General Name Role Phone SARI DAVIS CP Unavailable [...] Start Date End Date Status Dosage Lyrica [facility] [id number] 75 MG TAKE ONE CAP JERONIMO BY MOUTH THREE TIMES DAILY Results No Known Results Summary Purpose [employer] Submission
--- OUTSIDE RECORDS SUMMARY | 2019-09-28 09:00 | XMS REPORT ---
Author Author Stef HARRELL Organization [facility] Address [address] [place] [address] Care Team Providers Care Religious Educator Name Role Phone SARI HARRELL Unavailable PROBLEMS Type Condition ICD9-CM Code AXX19-JZ Code Onset Dates Condition S tatus SNOMED Code Problem Anemia, unspecified type D64.9 Activ e 642155271 Problem Depression, unspecified depression type F32.9 Active 10333817 Problem Chronic GERD K21.9 Active 9269968 09 Problem Other chronic pain G89.29 Active 8 4978169 Problem Primary insomnia F51.01 Active 397 2004 Problem Diabetic peripheral neuropathy E11.42 Active 835423952 Problem End stage renal disease N18.6 Active 86914667 Problem Type 1 diabetes mellitus with other specified complication E10.69 Active 09116202 ALLERGIES No Information SOCIAL HISTORY Never Assessed PLAN OF CARE VITAL SIGNS MEDICATIONS Medication Instructions Dosage Frequency Start Date End Date Duration S tatus Bumetanide 2 MG Orally Once a day 1 tablet 24h Active RESULTS No Results PROCEDURES No Known [...]
--- OUTSIDE RECORDS SUMMARY | 2019-09-28 09:00 | XMS REPORT ---
Author Stef Fonseca [facility] eClinicalWorks Address Unknown Phone Unavailable Care Team Providers Care Blade Changer Name Role Phone [facility] CP Unavailable Allergies, Adverse Reactions, Alerts Substance Reaction Event Type Penicillin V Potassium Info Not Available Drug Allergy Codeine Sulfate Info Not Available Drug Allergy Problems Problem Type Condition Code Onset Dates Condition Statu s Assessment Depression, unspecified depression type F32.9 Active Problem Pneumonia J18.9 Active Assessment Type 1 [...] Problem Anemia, unspecified type D64.9 Act lamar Assessment Primary insomnia F51.01 Active Assessment Gastric peptic ulcer, acute K25.3 Active Assessment Diabetic peripheral neuropathy E11.42 Active Assessment Pneumonia J18.9 Active Assessment Anemia, unspecified type D64.9 Act lamar Medications Medication Code System Code Instructions Start Date End Date Status Dosage Levemir [facility] [address]-51 100 UNIT/ML Subcutaneous at bedtime 10 units NovoLog Mix 70/30 [facility] [address]-97 (70-30) 100 UN IT/ML Subcutaneous before meals and at bedtime sliding sca le Floranex [facility] [address]-70 1 tablet Orally Four times a day November 12, 2015 chew one tablet Levofloxacin [facility] [address]-84 750 MG Orally Once a day MayMay 26, 2015 1 tablet Sucralfate [facility] [address]-99 1 GM Orally Before meals and at b edtime July 14, 2015 1 tablet on an empty stomach Zantac 150 Maximum Strength [facility] [address]-51 150 MG Orall y Twice a day May 15, 2015 1 tablet Mupirocin [facility] [address]-19 2 % Externally Twice a day 1 application to affected area Tramadol HCl [facility] [address]-66 50 MG Orally every 6 hrs 1 tablet as needed Mucinex [facility] [address]-88 600 MG Orally every 12 hrs 1 tablet as needed Gabapentin [facility] [address]-16 300 MG Orally 3 times a day Repository 1 capsule Lorazepam [facility] [address]-88 0.5 MG Orally Once a day 1 tablet at bedtime Citalopram Hydrobromide [facility] [address]-32 20 MG Orally Once a day 1 tablet Procedures Procedure Coding System Code Date Office Visit, New Pt., Level 4 CPT-4 34537 J 2015 MEASURE BLOOD OXYGEN LEVEL CPT-4 09192 May Vital Signs Date/Time: May 15, 2015 Temperature 98.7 F Weight 192.8 lbs Height 66 in Oximetry 92 % Blood Pressure Diastolic 76 mmHg Blood Pressure Systolic 144 mmHg Cardiac Monitoring Heart Rate 100 bpm BMI 31.12 Index Results No Known Results Summary Purpose eClinicalWorks Submission
--- OUTSIDE RECORDS SUMMARY | 2019-09-28 09:00 | XMS REPORT ---
Author Author Stef DAVIS Organization e[employer] Address Unknown Phone Unavailable Care Team Providers Care Sales And Business Development Manager Name Role Phone SARI DAVIS Unavailable Allergies [...] Instructions Start Date End Date Status Dosage Sodium Polystyrene Sulfonate [facility] [address]-42 15 GM/60ML Orally Once a day November 25, 2015 60 ml Metoprolol Succinate ER [facility] [address]-28 25 MG Orally Once a day November 25, 2015 1 tablet Results No Known Results Summary Purpose eClinicalWorks Submission
--- OUTSIDE RECORDS SUMMARY | 2019-09-28 09:00 | XMS REPORT ---
Author Author Stef DAVIS Organization [employer] Address Unknown Phone Unavailable Care Team Providers Care Power And Recovery Superintendent Name Role Phone SARI DAVIS Unavailable Allergies, Adverse Reactions, Alerts Substance Reaction [...] Adjustment disorder with depressed mood F43.21 Active Assessment Incomplete tear of left rotator cuff M75.112 Active Assessment Diabetic peripheral neuropathy E11.42 Active Problem Pneumonia J18.9 Active Assessment Chronic kidney disease, stage 3 (moderate) N18.3 Active Problem Primary insomnia F51.01 Active Assessment Type 1 diabetes mellitus with other specified complica tion E10.69 Active Problem Gastric peptic ulcer, acute K25.3 Active Medications Medication Code System Code Instructions Start Date End Date Status Dosage Omeprazole [facility] [address]-08 40 MG Orally Once a day Jun 23, 2015 1 tablet Citalopram Hydrobromide [facility] [address]-51 20 MG Orally Once a day 1 tablet Blood Glucose Meter [facility] 0 May 26, 2015 not defined Lasix [facility] [address]-03 40 mg Orally Once a day as directed by supervisor mattress and boxsprings September 17, 2015 1 tablet NovoLog Flexpen [facility] [address]-70 100 UNIT/ML Subcutaneous 3 times a day Jun 23, 2015 8-8-7 units tidAC NovoLog [facility] [address]-04 100 UNIT/ML Subcutaneous May 26, 2015 8 units tid AC and to correct Trazodone HCl [facility] 85694865356 50 MG Orally Once a day 1 tablet at bedtime as needed Lyrica [facility] 47673836529 75 MG TAKE ONE CAP JERONIMO BY MOUTH THREE TIMES DAILY Levemir [facility] [address]-94 100 UNIT/ML Subcutaneous 2 times a day 6 unitsAM and 12 units PM Procedures Procedure Coding System Code Date Office Visit, Est Pt., Level 4 CPT-4 35208 M 2015 Vital Signs Date/Time: September 17, 2015 Cardiac Monitoring Heart Rate 86 bpm Weight 196.6 lbs Height 66 in Blood Pressure Diastolic 96 mmHg Blood Pressure Systolic 148 mmHg Results No Known Results Summary Purpose eClinicalWorks Submission
--- OUTSIDE RECORDS SUMMARY | 2019-09-28 09:00 | XMS REPORT ---
Author Author Stef HARRELL Organization [facility] Address [address] [place] [address] Care Team Providers Care Pleater Hand Name Role Phone SARI HARRELL Unavailable PROBLEMS Type Condition ICD9-CM Code ZFI06-ZP Code Onset Dates Condition S tatus SNOMED Code Problem Diabetic peripheral neuropathy E11.42 Active 844120354 Problem Type 1 diabetes mellitus with other specified complication E10.69 Active 22452931 Problem Primary insomnia F51.01 Active 397 2004 Problem Depression, unspecified depression type F32.9 Active 28439147 Problem Anemia, unspecified type D64.9 Activ e 936581375 Problem Falls frequently R29.6 Active 279 736431 Problem Bilateral hearing loss, unspecified hearing loss type H91.93 Active 72066777 Problem Other chronic pain G89.29 Active 8 8131420 Problem End stage renal disease N18.6 Active 20167262 Problem Major depression, chronic F34.1 Acti ve 493039274 Problem Chronic GERD K21.9 Active 5338467 09 ALLERGIES No Information ENCOUNTERS Encounter Location Date Diagnosis [facility] [address] [id number] [place] [phone] Oct, [facility] [address] [facility] [id number] [address] [place] [address] Oct, [facility] [address] [facility] [id number] [address] [place] [address] September, [facility] [address] [facility] [id number] [address] [place] [address] Aug, Effusion of right elbow M25. 421 [facility] [address] [facility] [id number] [address] [place] [address] 13 Aug, 2017 Diabetic peripheral neuropat hy E11.42 [facility] [address] [facility] [id number] [address] [place] [address] Jul, [facility] [address] [facility] [id number] [address] [place] [address] Jul, Medicare annual wellness vis it, initial Z00.00 ; Diabetic peripheral neuropathy E11.42 ; End stage renal disease N18.6 ; Type 1 diabetes mellitus with other specified complication E10.69 ; Anemia, unspecified type D64.9 ; Falls frequently R29.6 ; Chronic GERD K21.9 ; Major depression, chronic F34.1 and Bilateral hearing loss, unspecified hearing loss type H91.93 [place] [address] [facility] [id number] [address] [place] [address] Jun, [place] [address] [facility] [id number] [address] [place] [address] Jun, Low back pain M54.5 and Prim linwood insomnia F51.01 [place] [address] [facility] [id number] [address] [place] [address] May, Diabetic peripheral neuropat hy E11.42 [place] [address] [facility] [id number] [address] [place] [address] May, [facility] [address] [facility] [id number] [address] [place] [address] May, [facility] [address] [facility] [id number] [address] [place] [address] May, [facility] [address] [facility] [id number] [address] [place] [address] May, Diabetic peripheral neuropat hy E11.42 ; Type 1 diabetes mellitus with other specified complication E10.69 ; Primary insomnia F51.01 ; Depression, unspecified depression type F32.9 ; End stage renal disease N18.6 ; Left foot drop M21.372 and Foot drop, right foot M21.371 [facility] [address] [facility] [id number] [address] [place] [address] Apr, [facility] [address] [facility] [id number] [address] [place] [address] Apr, [facility] [address] [facility] [id number] [address] [place] [address] Mar, Foot drop, left M21.372 and Foot drop, right M21.371 [facility] [address] [facility] [id number] [address] [place] [address] Mar, [facility] [address] [facility] [id number] [address] [place] [address] Feb, Type 1 diabetes mellitus wit h other specified complication E10.69 and Olecranon bursitis, unspecified laterality M70.20 [facility] [address] [facility] [id number] [address] [place] [address] Feb, [facility] [address] [facility] [id number] [address] [place] [address] Feb, Diabetic peripheral neuropat hy E11.42 [place] [address] [facility] [id number] [address] [place] [address] Jan, Type 1 diabetes mellitus wit h other specified complication E10.69 [facility] [address] [id number] [address] [place] [address] Dec, Type 1 diabetes mellitus wit h other specified complication E10.69 ; Primary insomnia F51.01 ; End stage renal disease N18.6 and Chronic GERD K21.9 [facility] [address] [facility] [id number] [address] [place] [address] Dec, [facility] [address] [facility] [id number] [address] [place] [address] Nov, [facility] [address] [facility] [id number] [address] [place] [address] Oct, Diabetic peripheral neuropat hy E11.42 [facility] [address] [facility] [id number] [address] [place] [address] Oct, [facility] [address] [facility] [id number] [address] [place] [address] September, Type 1 diabetes mellitus wit h other specified complication E10.69 [facility] [address] [id number] [address] [place] [address] September, Diabetic peripheral neuropat hy E11.42 [facility] [address] [id number] [address] [place] [address] September, Diabetic peripheral neuropat hy E11.42 ; Type 1 diabetes mellitus with other specified complication E10.69 and End stage renal disease N18.6 [facility] [address] [id number] [address] [place] [address] September, [facility] [address] [id number] [address] [place] [address] September, [facility] [address] [id number] [address] [place] [address] Aug, [facility] [address] [id number] [address] [place] [address] Aug, Low back pain, unspecified b ack pain laterality, unspecified chronicity, with sciatica presence unspecified M54.5 [facility] [address] [id number] [address] [place] [address] Aug, [facility] [address] [id number] [address] [place] [address] Jul, [facility] [address] [id number] [address] [place] [address] Jul, Low back pain M54.5 ; Other chronic pain G89.29 ; Type 1 diabetes mellitus with other specified complication E10.69 ; Diabetic peripheral neuropathy E11.42 ; Left foot drop M21.372 and Foot drop, right foot M21.371 [facility] [address] [id number] [address] [place] [address] Jul, [facility] [address] [id number] [address] [place] [address] Jul, [facility] [address] [id number] [address] [place] [phone] Jun, Low back pain, unspecified b ack pain laterality, unspecified chronicity, with sciatica presence unspecified M54.5 [facility] [address] [facility] [id number] [address] [place] [address] Jun, [facility] [address] [facility] [id number] [address] [place] [address] Jun, [facility] [address] [facility] [id number] [address] [place] [address] Jun, [facility] [address] [facility] [id number] [address] [place] [address] May, Type 1 diabetes mellitus wit h other specified complication E10.69 ; Diabetic peripheral neuropathy E11.42 and End stage renal disease N18.6 [facility] [address] [facility] [id number] [address] [place] [address] Apr, Bronchitis J40 [facility] [address] [facility] [id number] [address] [place] [address] Apr, Other bursal cyst, left elbo w M71.322 [facility] [address] [id number] [address] [place] [address] Apr, [facility] [address] [facility] [id number] [address] [place] [address] Apr, Other bursal cyst, left elbo w M71.322 [facility] [address] [facility] [id number] [address] [place] [address] Mar, [facility] [address] [facility] [id number] [address] [place] [address] Mar, Rib pain R07.81 and Type 1 d iabetes mellitus with other specified complication E10.69 [facility] [address] [facility] [id number] [address] [place] [address] Feb, [facility] [id number] [address] [place] [phone] Feb, [facility] [address] [id number] [address] [place] [address] Dec, [facility] [address] [id number] [address] [place] [address] Dec, [facility] [address] [id number] [address] [place] [address] Nov, Type 1 diabetes mellitus wit h other specified complication E10.69 and End stage renal disease N18.6 [facility] [address] [id number] [address] [place] [address] Nov, [facility] [address] [id number] [address] [place] [address] Nov, [facility] [address] [id number] [address] [place] [address] Nov, [facility] [address] [id number] [address] [place] [address] Nov, [facility] [address] [id number] [address] [place] [address] Nov, [facility] [address] [id number] [address] [place] [address] Oct, [facility] [address] [id number] [address] [place] [address] Oct, [facility] [address] [id number] [address] [place] [address] September, [facility] [address] [id number] [address] [place] [address] September, Type 1 diabetes mellitus wit h other specified complication E10.69 [facility] [address] [id number] [address] [place] [address] September, [facility] [address] [id number] [address] [place] [address] September, Diabetic peripheral neuropat hy E11.42 ; Type 1 diabetes mellitus with other specified complication E10.69 ; Chronic kidney disease, stage 3 (moderate) N18.3 and Incomplete tear of left rotator cuff M75.112 [facility] [address] [id number] [address] [place] [address] September, [facility] [address] [id number] [address] [place] [address] Aug, [facility] [address] [id number] [address] [place] [address] Aug, [facility] [address] [id number] [address] [place] [address] Aug, Other chronic pain G89.29 an d Pain in left shoulder M25.512 [facility] [address] [facility] [id number] [address] [place] [address] Aug, Physical deconditioning R53. 81 ; Pain in right shoulder M25.511 and Other chronic pain G89.29 [facility] [address] [id number] [address] [place] [address] Aug, [facility] [address] [id number] [address] [place] [address] Jul, Type 1 diabetes mellitus wit h other specified complication E10.69 ; Diabetic peripheral neuropathy E11.42 and Physical deconditioning R53.81 [facility] [address] [id number] [address] [place] [address] Jul, [facility] [address] [id number] [address] [place] [phone] Jul, [facility] [address] [id number] [address] [place] [address] Jun, [facility] [address] [facility] [id number] [address] [place] [address] Jun, Type 1 diabetes mellitus wit h other specified complication E10.69 ; Insomnia G47.00 and Diabetic peripheral neuropathy E11.42 [facility] [address] [facility] [id number] [address] [place] [address] 04 Jun, 2015 [facility] [address] [facility] [id number] [address] [place] [address] Jun, Physical deconditioning R53. 81 [facility] [address] [id number] [address] [place] [address] Jun, [facility] [address] [facility] [id number] [address] [place] [address] May, [facility] [address] [facility] [id number] [address] [place] [address] May, [facility] [address] [facility] [id number] [address] [place] [address] May, [facility] [address] [facility] [id number] [address] [place] [address] May, [facility] [address] [facility] [id number] [address] [place] [address] May, [facility] [address] [facility] [id number] [address] [place] [address] May, Adjustment disorder with dep ressed mood F43.21 [facility] [address] [facility] [id number] [address] [place] [address] May, Type 1 diabetes mellitus wit h other specified complication E10.69 ; Anemia, unspecified type D64.9 ; Gastric peptic ulcer, acute K25.3 and Physical deconditioning R53.81 [facility] [address] [facility] [id number] [address] [place] [address] May, [facility] [address] [facility] [id number] [address] [place] [address] May, Type 1 diabetes mellitus wit h other specified complication E10.69 [facility] [address] [facility] [id number] [address] [place] [address] May, [facility] [address] [facility] [id number] [address] [place] [address] May, [facility] [address] [facility] [id number] [address] [place] [address] May, [facility] [address] [facility] [id number] [address] [place] [address] May, [facility] [address] [facility] [id number] [address] [place] [address] May, Type 1 diabetes mellitus wit h other specified complication E10.69 ; Depression, unspecified depression type F32.9 ; Anemia, unspecified type D64.9 ; Diabetic peripheral neuropathy E11.42 ; Gastric peptic ulcer, acute K25.3 ; Primary insomnia F51.01 and Pneumonia J18.9 [place] [address] [facility] [id number] [address] [place] [address] May, [place] [address] [facility] [id number] [address] [place] [address] May, IMMUNIZATIONS No Known Immunizations SOCIAL HISTORY Never Assessed REASON FOR VISIT medication PLAN OF CARE VITAL SIGNS MEDICATIONS Medication Instructions Dosage Frequency Start Date End Date Duration S tatus Claritin 10 mg Orally Once a day 1 tablet 24h May, 9 0 days Active RESULTS No Results PROCEDURES No [...]
--- OUTSIDE RECORDS SUMMARY | 2019-09-28 09:00 | XMS REPORT ---
Author Author Stef HARRELL Organization [facility] Address [address] [place] [address] Care Team Providers Care Flight Superintendent Name Role Phone SARI HARRELL Unavailable PROBLEMS Type Condition ICD9-CM Code VTT93-YL Code Onset Dates Condition S tatus SNOMED Code Problem Diabetic peripheral neuropathy E11.42 Active 710475009 Problem Type 1 diabetes mellitus with other specified complication E10.69 Active 83580613 Problem Primary insomnia F51.01 Active 397 2004 Problem Depression, unspecified depression type F32.9 Active 62431202 Problem Anemia, unspecified type D64.9 Activ e 604354195 Problem Falls frequently R29.6 Active 279 896325 Problem Bilateral hearing loss, unspecified hearing loss type H91.93 Active 01335883 Problem Other chronic pain G89.29 Active 8 8922352 Problem End stage renal disease N18.6 Active 19997883 Problem Major depression, chronic F34.1 Acti ve 816281795 Problem Chronic GERD K21.9 Active 7049268 09 ALLERGIES No Information ENCOUNTERS Encounter Location Date Diagnosis [facility] [address] [facility] [id number] [address] [place] [phone] September, [facility] [address] [facility] [id number] [address] [place] [address] Aug, Effusion of right elbow M25. 421 [facility] [address] [facility] [id number] [address] [place] [phone] Aug, Diabetic peripheral neuropat hy E11.42 [facility] [address] [facility] [id number] [address] [place] [phone] Jul, [facility] [address] [facility] [id number] [address] [place] [phone] Jul, Medicare annual wellness vis it, initial Z00.00 ; Diabetic peripheral neuropathy E11.42 ; End stage renal disease N18.6 ; Type 1 diabetes mellitus with other specified complication E10.69 ; Anemia, unspecified type D64.9 ; Falls frequently R29.6 ; Chronic GERD K21.9 ; Major depression, chronic F34.1 and Bilateral hearing loss, unspecified hearing loss type H91.93 [place] [address] [place] [id number] [address] [place] [address] Jun, [place] [address] [facility] [id number] [address] [place] [phone] Jun, Low back pain M54.5 and Prim linwood insomnia F51.01 [place] [address] [facility] [id number] [address] [place] [phone] May, Diabetic peripheral neuropat hy E11.42 [place] [address] [place] [id number] [place] [phone] May, [place] [address] [place] [id number] [address] [place] [phone] May, [place] [address] [place] [id number] [address] [place] [phone] May, [place] [address] [place] [id number] [place] [address] May, Diabetic peripheral neuropat hy E11.42 ; Type 1 diabetes mellitus with other specified complication E10.69 ; Primary insomnia F51.01 ; Depression, unspecified depression type F32.9 ; End stage renal disease N18.6 ; Left foot drop M21.372 and Foot drop, right foot M21.371 [place] [address] [place] [id number] [address] [place] [phone] Apr, [place] [address] [place] [id number] [place] [phone] Apr, [place] [address] [facility] [id number] [address] [place] [address] Mar, Foot drop, left M21.372 and Foot drop, right M21.371 [place] [address] [id number] [address] [place] [phone] Mar, [facility] [address] [id number] [address] [place] [phone] Feb, Type 1 diabetes mellitus wit h other specified complication E10.69 and Olecranon bursitis, unspecified laterality M70.20 [facility] [address] [id number] [address] [place] [phone] Feb, [facility] [address] [id number] [address] [place] [phone] Feb, Diabetic peripheral neuropat hy E11.42 [facility] [address] [id number] [address] [place] [phone] Jan, Type 1 diabetes mellitus wit h other specified complication E10.69 [facility] [address] [id number] [address] [place] [phone] Dec, Type 1 diabetes mellitus wit h other specified complication E10.69 ; Primary insomnia F51.01 ; End stage renal disease N18.6 and Chronic GERD K21.9 [facility] [address] [id number] [address] [place] [phone] Dec, [facility] [address] [id number] [address] [place] [phone] Nov, [facility] [address] [id number] [address] [place] [phone] Oct, Diabetic peripheral neuropat hy E11.42 [facility] [address] [id number] [address] [place] [phone] Oct, [facility] [address] [id number] [address] [place] [phone] September, Type 1 diabetes mellitus wit h other specified complication E10.69 [facility] [address] [id number] [address] [place] [address] September, Diabetic peripheral neuropat hy E11.42 [facility] [address] [id number] [address] [place] [address] September, Diabetic peripheral neuropat hy E11.42 ; Type 1 diabetes mellitus with other specified complication E10.69 and End stage renal disease N18.6 [facility] [address] [facility] [id number] [address] [place] [phone] September, [facility] [address] [id number] [address] [place] [address] September, [facility] [address] [id number] [address] [place] [phone] Aug, [facility] [address] [id number] [address] [place] [phone] Aug, Low back pain, unspecified b ack pain laterality, unspecified chronicity, with sciatica presence unspecified M54.5 [facility] [address] [facility] [id number] [address] [place] [address] Aug, [facility] [address] [facility] [id number] [address] [place] [phone] Jul, [facility] [address] [facility] [id number] [address] [place] [address] Jul, Low back pain M54.5 ; Other chronic pain G89.29 ; Type 1 diabetes mellitus with other specified complication E10.69 ; Diabetic peripheral neuropathy E11.42 ; Left foot drop M21.372 and Foot drop, right foot M21.371 [facility] [address] [facility] [id number] [address] [place] [phone] Jul, [facility] [address] [facility] [id number] [address] [place] [phone] Jul, [facility] [address] [facility] [id number] [address] [place] [phone] Jun, Low back pain, unspecified b ack pain laterality, unspecified chronicity, with sciatica presence unspecified M54.5 [facility] [address] [facility] [id number] [address] [place] [phone] Jun, [facility] [address] [id number] [address] [place] [phone] Jun, [facility] [address] [id number] [address] [place] [phone] Jun, [facility] [address] [facility] [id number] [address] [place] [address] May, Type 1 diabetes mellitus wit h other specified complication E10.69 ; Diabetic peripheral neuropathy E11.42 and End stage renal disease N18.6 [facility] [address] [id number] [address] [place] [address] Apr, Bronchitis J40 [facility] [address] [facility] [id number] [address] [place] [address] Apr, Other bursal cyst, left elbo w M71.322 [facility] [address] [facility] [id number] [address] [place] [address] Apr, [facility] [address] [id number] [address] [place] [address] Apr, Other bursal cyst, left elbo w M71.322 [facility] [address] [id number] [address] [place] [phone] Mar, [facility] [address] [facility] [id number] [address] [place] [address] Mar, Rib pain R07.81 and Type 1 d iabetes mellitus with other specified complication E10.69 [facility] [address] [id number] [address] [place] [phone] Feb, [facility] [address] [facility] [id number] [address] [place] [phone] Feb, [facility] [address] [facility] [id number] [address] [place] [phone] Dec, [facility] [address] [facility] [id number] [address] [place] [phone] Dec, [facility] [address] [id number] [address] [place] [phone] Nov, Type 1 diabetes mellitus wit h other specified complication E10.69 and End stage renal disease N18.6 [facility] [address] [id number] [address] [place] [phone] Nov, [facility] [address] [id number] [address] [place] [phone] Nov, [facility] [address] [id number] [address] [place] [phone] Nov, [facility] [address] [id number] [address] [place] [phone] Nov, [facility] [address] [id number] [address] [place] [phone] Nov, [facility] [address] [id number] [address] [place] [phone] Oct, [facility] [address] [id number] [address] [place] [phone] Oct, [facility] [address] [id number] [address] [place] [phone] September, [facility] [address] [id number] [address] [place] [address] September, Type 1 diabetes mellitus wit h other specified complication E10.69 [facility] [address] [id number] [address] [place] [phone] September, [facility] [address] [id number] [address] [place] [phone] September, Diabetic peripheral neuropat hy E11.42 ; Type 1 diabetes mellitus with other specified complication E10.69 ; Chronic kidney disease, stage 3 (moderate) N18.3 and Incomplete tear of left rotator cuff M75.112 [facility] [address] [id number] [address] [place] [phone] September, [facility] [address] [id number] [address] [place] [phone] Aug, [facility] [address] [id number] [address] [place] [phone] Aug, [facility] [address] [id number] [address] [place] [address] Aug, Other chronic pain G89.29 an d Pain in left shoulder M25.512 [facility] [address] [id number] [address] [place] [address] Aug, Physical deconditioning R53. 81 ; Pain in right shoulder M25.511 and Other chronic pain G89.29 [facility] [address] [id number] [address] [place] [phone] Aug, [facility] [address] [id number] [address] [place] [phone] Jul, Type 1 diabetes mellitus wit h other specified complication E10.69 ; Diabetic peripheral neuropathy E11.42 and Physical deconditioning R53.81 [facility] [address] [id number] [address] [place] [address] Jul, [facility] [address] [id number] [address] [place] [phone] Jul, [facility] [address] [id number] [address] [place] [address] Jun, [facility] [address] [id number] [address] [place] [phone] Jun, Type 1 diabetes mellitus wit h other specified complication E10.69 ; Insomnia G47.00 and Diabetic peripheral neuropathy E11.42 [facility] [address] [id number] [address] [place] [address] Jun, [facility] [address] [id number] [address] [place] [id number] Jun, Physical deconditioning R53. 81 [facility] [address] [id number] [address] [place] [phone] Jun, [facility] [address] [facility] [id number] [address] [place] [phone] May, [facility] [address] [facility] [id number] [address] [place] [phone] May, [facility] [address] [facility] [id number] [address] [place] [phone] May, [facility] [address] [facility] [id number] [address] [place] [phone] May, [facility] [address] [facility] [id number] [address] [place] [phone] May, [facility] [address] [place] [id number] [address] [place] [phone] May, Adjustment disorder with dep ressed mood F43.21 [facility] [address] [place] [id number] [address] [place] [address] May, Type 1 diabetes mellitus wit h other specified complication E10.69 ; Anemia, unspecified type D64.9 ; Gastric peptic ulcer, acute K25.3 and Physical deconditioning R53.81 [facility] [address] [facility] [id number] [address] [place] [phone] May, [facility] [address] [facility] [id number] [address] [place] [address] May, Type 1 diabetes mellitus wit h other specified complication E10.69 [facility] [address] [facility] [id number] [address] [place] [address] May, [facility] [address] [place] [id number] [address] [place] [address] May, [facility] [address] [place] [id number] [place] [phone] May, [facility] [address] [place] [id number] [address] [place] [phone] May, [facility] [address] [facility] [id number] [address] [place] [address] May, Type 1 diabetes mellitus wit h other specified complication E10.69 ; Depression, unspecified depression type F32.9 ; Anemia, unspecified type D64.9 ; Diabetic peripheral neuropathy E11.42 ; Gastric peptic ulcer, acute K25.3 ; Primary insomnia F51.01 and Pneumonia J18.9 [place] [address] [facility] [id number] [address] [place] [address] May, [place] [address] [facility] [id number] [address] [place] [address] May, IMMUNIZATIONS No Known Immunizations SOCIAL HISTORY [...]
--- OUTSIDE RECORDS SUMMARY | 2019-09-28 09:00 | XMS REPORT ---
Author Author Stef DAVIS Organization [employer] Address Unknown Phone Unavailable Care Team Providers Care Scrap Breaker Name Role Phone SARI DAVIS CP Unavailable [...] type F32.9 Active Medications No Known Medications Results No Known Results Summary Purpose [employer] Submission
--- OUTSIDE RECORDS SUMMARY | 2019-09-28 09:00 | XMS REPORT ---
Author Author Stef DAVIS Organization [employer] Address Unknown Phone Unavailable Care Team Providers Care Flanging Roll Operator Name Role Phone SARI DAVIS CP Unavailable [...]
--- OUTSIDE RECORDS SUMMARY | 2019-09-28 09:01 | XMS REPORT ---
Author Author Stef DAVIS [facility] [place] [employer] Address Unknown Phone Unavailable Care Team Providers Care Manager Income Tax Name Role Phone SARI DAVIS Unavailable Allergies, [...] tion E10.69 Active Problem Neuropathy G62.9 Active Assessment Physical deconditioning R53.81 Acti ve Assessment Diabetic peripheral neuropathy E11.42 Active Assessment Type 1 diabetes mellitus with other specified complica tion E10.69 Active Medications Medication Code System Code Instructions Start Date End Date Status Dosage Levemir [facility] [address]-07 100 UNIT/ML Subcutaneous 2 times a day 6 unitsAM and 12 units PM Lyrica [facility] [address]-56 75 MG Orally 3 times a day July 31, 2015 1 capsule Blood Glucose Meter [facility] 0 May 26, 2015 not defined NovoLog Flexpen [facility] [address]-55 100 UNIT/ML Subcutaneous 3 times a day Jun 23, 2015 8-8-7 units tidAC Trazodone HCl [facility] [address]-47 50 MG Orally Once a day Jun 23, 2015 1 tablet at bedtime as needed NovoLog [facility] [address]-89 100 UNIT/ML Subcutaneous May 26, 2015 8 units tid AC and to correct Gabapentin [facility] [address]-58 600 MG Orally 3 times a day 1 capsule Citalopram Hydrobromide [facility] [address]-51 20 MG Orally Once a day 1 tablet Omeprazole [facility] [address]-68 40 MG Orally Once a day Jun 23, 2015 1 tablet Procedures Procedure Coding System Code Date MICROALBUMIN, SEMIQUANT CPT-4 27995 July Office Visit, Est Pt., Level 4 CPT-4 71435 M 2015 [facility] NOB[facility] July 092015 Vital Signs Date/Time: August 06, 2015 Temperature 98.2 F Weight 188.0 lbs Height 66 in BMI 30.34 Index Blood Pressure Diastolic 84 mmHg Blood Pressure Systolic 130 mmHg Cardiac Monitoring Heart Rate 96 bpm Results Name Result Date Reference Range Unit Abnormali ty Flag CMP ----Calcium, Serum 9.3 09443021 8.7-10.2 mg/dL ----Carbon Dioxide, Total 23 03586877 18-29 mmol/L ----ALT (SGPT) 16 90585733 0-44 IU/L ----Creatinine, Serum 2.69 91640040 0.76-1.27 mg/dL H ----AST (SGOT) 19 01053385 0-40 IU/L ----eGFR If NonAfricn Am 28 56660416 >59 mL/min/1.73 L ----Alkaline Phosphatase, S 83 11502250 39-117 IU/L ----eGFR If Africn Am 32 28902581 >59 mL/min/1.73 L ----Bilirubin, Total 0.4 59916671 0.0-1.2 mg/dL ----BUN/Creatinine Ratio 19 41074050 9-20 ----A/G Ratio 1.8 00510562 1.1-2.5 ----Sodium, Serum 139 47187153 134-144 mmol/L ----Globulin, Total 2.2 89001444 1.5-4.5 g/dL ----Potassium, Serum 5.1 92267018 3.5-5.2 mmol/L ----Glucose, Serum 71 67359231 65-99 mg/dL ----Chloride, Serum 100 77582028 97-108 mmol/L ----Albumin, Serum 4.0 95612714 3.5-5.5 g/dL ----BUN 50 64694130 6-24 mg/dL H ----Protein, Total, Serum 6.2 08049833 6.0-8.5 g/dL CBC w/ MANUAL DIFF ----Basos 0 39596696 % ----MCV 82 69996820 79-97 fL ----Hematocrit 32.3 65010428 37.5-51.0 % L ----Eos 5 27451269 % ----MCHC 34.1 68283039 31.5-35.7 g/dL ----Monocytes 10 83697077 % ----MCH 28.1 74154693 26.6-33.0 pg ----Lymphs 19 73454167 % ----Eos (Absolute Value) 0.3 79535182 0.0-0.4 X10E3/uL ----WBC 5.2 99087585 3.4-10.8 x10E3/uL ----Monocytes(Absolute) 0.5 00774856 0.1-0.9 X10E3/uL ----Lymphs (Absolute) 1.0 14727559 0.7-3.1 X10E3/uL ----Hemoglobin 11.0 68148563 12.6-17.7 g/dL L ----Neutrophils Absolute 3.4 84633793 1.4-7.0 X10E3/uL ----RBC 3.92 13404548 4.14-5.80 x10E6/uL L ----Platelet Comment Note: [id number] Adequate ----RBC Comment Note: 76784537 Normal ----Neutrophils 66 94118204 % ----Baso(Absolute) 0.0 86598575 0.0-0.2 X10E3/uL ----RDW 17.2 43842259 12.3-15.4 % H ----Platelets 239 41699874 150-379 x10E3/uL MICROALBUMIN, URINE (IN HOUSE) ----Control + [id number] ----A:C (IN HOUSE) >300 [id number] ----CRE 100 [id number] ----ALB 150 [id number] ----Color Yellow [id number] ----Lot # [id number] ----MICROALBUMIN HIGH ABNORMAL [id number] ----Control - [id number] ----Lot # [id number] ----Exp date [id number] ----Exp date [id number] ----Clarity Clear [id number] MICROALBUMIN/CREATININE RATIO, URINE ----Microalbumin, Urine 884.3 09261714 0.0-17.0 ug/mL H ----Microalb/Creat Ratio 2227.5 56025021 0.0-30.0 mg/g creat H ----Creatinine, Urine 39.7 77500451 22.0-328.0 mg/dL Summary Purpose [employer] Submission
--- OUTSIDE RECORDS SUMMARY | 2019-09-28 09:01 | XMS REPORT ---
Author Author Stef DAVIS Organization [employer] Address Unknown Phone Unavailable Care Team Providers Care Auto Design Checker Name Role Phone SARI DAVIS CP Unavailable Allergies No Known Allergies Problems Problem Type Condition Code Onset Dates Condition Statu s Problem Gastric peptic ulcer, acute K25.3 Active Problem Depression, unspecified depression type F32.9 Active Problem Anemia, unspecified type D64.9 Act lamar Problem Other chronic pain G89.29 Active Problem Physical deconditioning R53.81 Acti ve Problem Pain in right shoulder M25.511 Activ e Problem Type 1 diabetes mellitus with other specified complica tion E10.69 Active Problem Neuropathy G62.9 Active Problem Adjustment disorder with depressed mood F43.21 Active Problem Diabetic peripheral neuropathy E11.42 Active Assessment Pain in right shoulder M25.511 Activ e Assessment Physical deconditioning R53.81 Acti ve Problem Pneumonia J18.9 Active Assessment Other chronic pain G89.29 Active Problem Primary insomnia F51.01 Active Medications No Known Medications Results No Known Results Summary Purpose [employer] Submission
--- OUTSIDE RECORDS SUMMARY | 2019-09-28 09:01 | XMS REPORT ---
Author Author Stef HARRELL [facility] [place] eClinicalWorks Address Unknown Phone Unavailable Care Team Providers Care Stratigraphy Teacher Name Role Phone SARI HARRELL Unavailable Allergies, Adverse Reactions, Alerts Substance Reaction [...] disorder with depressed mood F43.21 Active Assessment Type 1 diabetes mellitus with other specified complica tion E10.69 Active Problem Pneumonia J18.9 Active Problem Primary insomnia F51.01 Active Assessment End stage renal disease N18.6 Acti ve Problem Gastric peptic ulcer, acute K25.3 Active Medications Medication Code System Code Instructions Start Date End Date Status Dosage Allopurinol [facility] [address]-88 100 MG Orally Once a day 1 tablet NovoLog [facility] [address]-08 100 UNIT/ML Subcutaneous May 26, 2015 8 units tid AC and to correct Blood Glucose Meter [facility] 0 May 26, 2015 not defined NovoLog Flexpen [facility] [address]-91 100 UNIT/ML Subcutaneous 3 times a day Jun 23, 2015 8-8-7 units tidAC Bumetanide [facility] [address]-94 2 MG Orally Once a day 1 tablet Levemir [facility] [address]-45 100 UNIT/ML Subcutaneous 2 times a day 6 unitsAM and 14 units PM Metoprolol Succinate ER [facility] [address]-39 25 MG Orally Once a day December 02, 2015 1 tablet Blood Glucose Monitor System [facility] [address] w/D patricia DX: E10.69. Dispense per insurance October 02, 2015 as directed Blood Glucose Test Strip ND 0 1 6 times a day . E10.69. Dispense per insurance October 02, 2015 as directed Lyrica [facility] [id number] 75 MG TAKE ONE CAP JERONIMO BY MOUTH THREE TIMES DAILY Omeprazole [facility] 25299895007 40 MG Orally Once a day 1 tablet Procedures Procedure Coding System Code Date Office Visit, Est Pt., Level 4 CPT-4 21043 [facility] 2015 GLYCATED HEMOGLOBIN TEST CPT-4 53879 November Vital Signs Date/Time: December 02, 2015 Cardiac Monitoring Heart Rate 90 bpm Weight 204.7 lbs Height 66 in BMI 33.04 Index Blood Pressure Diastolic 98 mmHg Blood Pressure Systolic 154 mmHg Results No Known Results Summary Purpose eClinicalWorks Submission
--- OUTSIDE RECORDS SUMMARY | 2019-09-28 09:01 | XMS REPORT ---
Author Author Stef HARRELL Organization [facility] Address [address] [place] [address] Care Team Providers Care Chemical Laboratory Chief Name Role Phone SARI HARRELL Unavailable PROBLEMS Type Condition ICD9-CM Code FRF54-AC Code Onset Dates Condition S tatus SNOMED Code Problem Diabetic peripheral neuropathy E11.42 Active 196566553 Problem Type 1 diabetes mellitus with other specified complication E10.69 Active 86331263 Problem Primary insomnia F51.01 Active 397 2004 Problem Depression, unspecified depression type F32.9 Active 83092562 Problem Anemia, unspecified type D64.9 Activ e 742068548 Problem Falls frequently R29.6 Active 279 417550 Problem Bilateral hearing loss, unspecified hearing loss type H91.93 Active 59701863 Problem Other chronic pain G89.29 Active 8 4468144 Problem End stage renal disease N18.6 Active 05566581 Problem Major depression, chronic F34.1 Acti ve 182899928 Problem Chronic GERD K21.9 Active 8699795 09 ALLERGIES Substance Reaction Event Type Date Status Penicillin V Potassium Unknown Drug Allergy Feb, Activ e Codeine Sulfate Unknown Drug Allergy Feb, Active ENCOUNTERS Encounter Location Date Diagnosis [facility] [address] [facility] [id number] [address] [place] [phone] September, [facility] [address] [facility] [id number] [address] [phone] Aug, Effusion of right elbow M25. 421 [facility] [address] [facility] [id number] [address] [phone] Aug, Diabetic peripheral neuropat hy E11.42 [facility] [address] [facility] [id number] [address] [phone] Jul, [facility] [address] [facility] [id number] [address] [place] [phone] Jul, Medicare annual wellness vis it, initial Z00.00 ; Diabetic peripheral neuropathy E11.42 ; End stage renal disease N18.6 ; Type 1 diabetes mellitus with other specified complication E10.69 ; Anemia, unspecified type D64.9 ; Falls frequently R29.6 ; Chronic GERD K21.9 ; Major depression, chronic F34.1 and Bilateral hearing loss, unspecified hearing loss type H91.93 [facility] [address] [facility] [id number] [address] [place] [phone] Jun, [place] [address] [facility] [id number] [address] [phone] Jun, Low back pain M54.5 and Prim linwood insomnia F51.01 [place] [address] [facility] [id number] [address] [phone] May, Diabetic peripheral neuropat hy E11.42 [place] [address] [place] [id number] [address] [place] [phone] May, [place] [address] [facility] [id number] [address] [place] [phone] May, [place] [address] [place] [id number] [address] [place] [phone] May, [place] [address] [facility] [id number] [address] [place] [address] May, Diabetic peripheral neuropat hy E11.42 ; Type 1 diabetes mellitus with other specified complication E10.69 ; Primary insomnia F51.01 ; Depression, unspecified depression type F32.9 ; End stage renal disease N18.6 ; Left foot drop M21.372 and Foot drop, right foot M21.371 [place] [address] [place] [id number] [address] [place] [phone] Apr, [place] [address] [facility] [id number] [address] [place] [phone] Apr, [facility] [address] [place] [id number] [address] [phone] Mar, Foot drop, left M21.372 and Foot drop, right M21.371 [facility] [address] [place] [id number] [address] [place] [phone] Mar, [facility] [address] [place] [id number] [address] [place] [phone] Feb, Type 1 diabetes mellitus wit h other specified complication E10.69 and Olecranon bursitis, unspecified laterality M70.20 [facility] [address] [place] [id number] [address] [place] [phone] Feb, [facility] [address] [place] [id number] [address] [place] [phone] Feb, Diabetic peripheral neuropat hy E11.42 [place] [address] [place] [id number] [address] [place] [id number] Jan, Type 1 diabetes mellitus wit h other specified complication E10.69 [place] [address] [place] [id number] [address] [place] [id number] Dec, Type 1 diabetes mellitus wit h other specified complication E10.69 ; Primary insomnia F51.01 ; End stage renal disease N18.6 and Chronic GERD K21.9 [place] [address] [place] [id number] [address] [place] [phone] Dec, [place] [address] [place] [id number] [address] [place] [phone] Nov, [facility] [address] [place] [id number] [address] [place] [id number] Oct, Diabetic peripheral neuropat hy E11.42 [facility] [address] [place] [id number] [address] [place] [id number] Oct, [place] [address] [place] [id number] [address] [phone] September, Type 1 diabetes mellitus wit h other specified complication E10.69 [facility] [address] [place] [id number] [address] [place] [phone] September, Diabetic peripheral neuropat hy E11.42 [facility] [address] [id number] [address] [place] [phone] September, Diabetic peripheral neuropat hy E11.42 ; Type 1 diabetes mellitus with other specified complication E10.69 and End stage renal disease N18.6 [facility] [address] [id number] [address] [place] [id number] September, [facility] [address] [id number] [address] [place] [phone] September, [facility] [address] [id number] [address] [phone] Aug, [facility] [address] [id number] [address] [phone] Aug, Low back pain, unspecified b ack pain laterality, unspecified chronicity, with sciatica presence unspecified M54.5 [facility] [address] [id number] [address] [place] [phone] Aug, [facility] [address] [id number] [address] [id number] Jul, [facility] [address] [id number] [address] [place] [id number] Jul, Low back pain M54.5 ; Other chronic pain G89.29 ; Type 1 diabetes mellitus with other specified complication E10.69 ; Diabetic peripheral neuropathy E11.42 ; Left foot drop M21.372 and Foot drop, right foot M21.371 [facility] [address] [id number] [address] [place] [id number] Jul, [facility] [address] [id number] [address] [place] [phone] Jul, [facility] [address] [id number] [address] [phone] Jun, Low back pain, unspecified b ack pain laterality, unspecified chronicity, with sciatica presence unspecified M54.5 [facility] [address] [id number] [address] [place] [phone] Jun, [facility] [address] [facility] [id number] [address] [phone] Jun, [facility] [address] [facility] [id number] [address] [phone] Jun, [facility] [address] [facility] [id number] [address] [place] [phone] May, Type 1 diabetes mellitus wit h other specified complication E10.69 ; Diabetic peripheral neuropathy E11.42 and End stage renal disease N18.6 [facility] [address] [facility] [id number] [address] [phone] Apr, Bronchitis J40 [facility] [address] [facility] [id number] [address] [phone] Apr, Other bursal cyst, left elbo w M71.322 [facility] [address] [facility] [id number] [address] [phone] Apr, [facility] [address] [facility] [id number] [address] [phone] Apr, Other bursal cyst, left elbo w M71.322 [facility] [address] [facility] [id number] [address] [id number] Mar, [facility] [address] [facility] [id number] [address] [phone] Mar, Rib pain R07.81 and Type 1 d iabetes mellitus with other specified complication E10.69 [facility] [address] [facility] [id number] [address] [phone] Feb, [facility] [address] [facility] [id number] [address] [phone] Feb, [facility] [address] [facility] [id number] [address] [place] [id number] Dec, [facility] [address] [id number] [address] [place] [id number] Dec, [facility] [address] [id number] [address] [phone] Nov, Type 1 diabetes mellitus wit h other specified complication E10.69 and End stage renal disease N18.6 [facility] [address] [id number] [address] [place] [phone] Nov, [facility] [address] [id number] [address] [place] [phone] Nov, [facility] [address] [id number] [address] [place] [phone] Nov, [facility] [address] [id number] [address] [place] [phone] Nov, [facility] [address] [id number] [address] [place] [phone] Nov, [facility] [address] [id number] [address] [place] [phone] Oct, [facility] [address] [id number] [address] [phone] Oct, [facility] [address] [id number] [address] [phone] September, [facility] [address] [id number] [address] [place] [phone] September, Type 1 diabetes mellitus wit h other specified complication E10.69 [facility] [address] [id number] [address] [place] [id number] September, [facility] [address] [id number] [address] [place] [phone] September, Diabetic peripheral neuropat hy E11.42 ; Type 1 diabetes mellitus with other specified complication E10.69 ; Chronic kidney disease, stage 3 (moderate) N18.3 and Incomplete tear of left rotator cuff M75.112 [facility] [address] [id number] [address] [place] [phone] September, [facility] [address] [id number] [address] [place] [phone] Aug, [facility] [address] [id number] [address] [place] [phone] Aug, [facility] [address] [id number] [address] [phone] Aug, Other chronic pain G89.29 an d Pain in left shoulder M25.512 [facility] [address] [id number] [address] [place] [phone] Aug, Physical deconditioning R53. 81 ; Pain in right shoulder M25.511 and Other chronic pain G89.29 [facility] [address] [id number] [address] [place] [phone] Aug, [facility] [address] [id number] [address] [place] [id number] Jul, Type 1 diabetes mellitus wit h other specified complication E10.69 ; Diabetic peripheral neuropathy E11.42 and Physical deconditioning R53.81 [facility] [address] [id number] [address] [place] [phone] Jul, [facility] [address] [id number] [address] [place] [id number] Jul, [facility] [address] [id number] [address] [phone] Jun, [facility] [address] [id number] [address] [place] [phone] Jun, Type 1 diabetes mellitus wit h other specified complication E10.69 ; Insomnia G47.00 and Diabetic peripheral neuropathy E11.42 [facility] [address] [id number] [address] [phone] Jun, [facility] [address] [facility] [id number] [address] [place] [phone] Jun, Physical deconditioning R53. 81 [facility] [address] [facility] [id number] [address] [phone] Jun, [facility] [address] [facility] [id number] [address] [phone] May, [facility] [address] [facility] [id number] [address] [place] [phone] May, [facility] [address] [facility] [id number] [address] [phone] May, [facility] [address] [facility] [id number] [address] [id number] May, [facility] [address] [facility] [id number] [address] [phone] May, [facility] [address] [facility] [id number] [address] [place] [phone] May, Adjustment disorder with dep ressed mood F43.21 [facility] [address] [facility] [id number] [address] [place] [phone] May, Type 1 diabetes mellitus wit h other specified complication E10.69 ; Anemia, unspecified type D64.9 ; Gastric peptic ulcer, acute K25.3 and Physical deconditioning R53.81 [facility] [address] [facility] [id number] [address] [place] [phone] May, [facility] [address] [facility] [id number] [address] [place] [phone] May, Type 1 diabetes mellitus wit h other specified complication E10.69 [facility] [address] [facility] [id number] [address] [phone] May, [facility] [address] [facility] [id number] [address] [place] [phone] May, [facility] [address] [facility] [id number] [address] [phone] May, [place] [id number] [facility] [id number] [address] [place] [phone] May, [place] [address] [facility] [id number] [address] [place] [phone] May, Type 1 diabetes mellitus wit h other specified complication E10.69 ; Depression, unspecified depression type F32.9 ; Anemia, unspecified type D64.9 ; Diabetic peripheral neuropathy E11.42 ; Gastric peptic ulcer, acute K25.3 ; Primary insomnia F51.01 and Pneumonia J18.9 [place] [address] [facility] [id number] [address] [place] [phone] May, [place] [address] [facility] [id number] [address] [place] [phone] May, IMMUNIZATIONS No Known Immunizations SOCIAL HISTORY Never Assessed REASON FOR VISIT fluid in elbow--tcuppettRN, -Fluid present on right elbow, -Pt reports is checki ng blood sugars 4-5 x at least daily so rx for test strips pt wants sig changed since insurance wont cover for pt since using more than current sig, -A1c 8.9 le ss than month ago PLAN OF CARE Activity Details Follow Up 2 Months Reason:DTM2 VITAL SIGNS Height 66 in 2017-02-23 Weight 217.5 lbs 2017-02-23 Temperature 98.0 degrees Fahrenheit 2017-02-23 Heart Rate 80 bpm 2017-02-23 Respiratory Rate 18 2017-02-23 BMI 35.10 kg/m2 2017-02-23 Blood pressure systolic 148 mmHg 2017-02-23 Blood pressure diastolic 84 mmHg 2017-02-23 MEDICATIONS Medication Instructions Dosage Frequency Start Date End Date Duration S tatus Calcium Acetate (Phos Binder) 667 MG Orally Three times a day 1 tablet 8 h Active Trazodone HCl 50 mg Orally Once a day 1 tablet at bedtime as needed 24h Dec, 30 day(s) Active Bumetanide 2 MG Orally Once a day 1 tablet 24h Active Metoprolol Succinate ER 25 MG Orally Once a day 1 tablet 24h Nov, 90 days Active Prozac 20 MG Orally Once a day 1 capsule in the morning 24h Active NovoLog 100 UNIT/ML 6 units tid AC and to correct May Active Lyrica 75 MG Orally Three times a day 1 capsule 8h 30 days Active NovoLog Flexpen 100 UNIT/ML INJECT 6 UNI TS SUBCUTANEOUSLY WITH BREAKFAST, 8 UNITS WITH LUNCH, AND then sliding scale two hours after. 9units before dinner then Active Glucagon Emergency 1 MG Injection one time as directed September, 017 1 dose Active Omeprazole 40 MG Orally Once a day 1 tablet 24h 30 Active Glucocard Expression Test - test blood sugar 8h Mar, 6 Active Test strips as directed Feb, Feb, 90 day s Active Glucocard Expression Monitor w/Device as directed Mar Active Levemir FlexTouch 100 UNIT/ML Subcutaneous Once a day inject 14 uni ts at HS 24h Active Stool Softener 100 MG Orally Once a day 1 capsule as needed 24h Active Ventolin HFA 108 (90 Base) MCG/ACT Inhalation every 6 hrs 2 puffs a s needed 6h Apr, Active RESULTS No Results PROCEDURES Procedure Date Ordered Result Body Site [facility] VISIT ESTABLISHED PATIENT Feb 23, 2017 INSTRUCTIONS MEDICATIONS ADMINISTERED No Known [...]
--- OUTSIDE RECORDS SUMMARY | 2019-09-28 09:01 | XMS REPORT ---
Author Author Stef HARRELL Organization [facility] [place] Address [address] [place] [address] Care Team Providers Care Water Safety Instructor Name Role Phone SARI HARRELL Unavailable PROBLEMS Type Condition ICD9-CM Code ZUH80-LW Code Onset Dates Condition S tatus SNOMED Code Problem Anemia, unspecified type D64.9 Activ e 906194788 Problem Depression, unspecified depression type F32.9 Active 41926693 Problem Chronic GERD K21.9 Active 5182746 09 Problem Other chronic pain G89.29 Active 8 2578325 Problem Primary insomnia F51.01 Active 397 2004 Problem Diabetic peripheral neuropathy E11.42 Active 463939406 Problem End stage renal disease N18.6 Active 56890938 Problem Type 1 diabetes mellitus with other specified complication E10.69 Active 79216464 ALLERGIES No Information SOCIAL HISTORY Never Assessed PLAN OF CARE VITAL SIGNS MEDICATIONS Medication Instructions Dosage Frequency Start Date End Date Duration S tatus Lyrica 75 MG 1 capsule 12h 30 days Active RESULTS No Results PROCEDURES [...]
--- OUTSIDE RECORDS SUMMARY | 2019-09-28 09:01 | XMS REPORT ---
Author Author Stef HARRELL Organization [facility] Address [address] [place] [address] Care Team Providers Care Data Coordinator Name Role Phone SARI HARRELL Unavailable PROBLEMS Type Condition ICD9-CM Code DUC25-RJ Code Onset Dates Condition S tatus SNOMED Code Problem Diabetic peripheral neuropathy E11.42 Active 378910899 Problem Type 1 diabetes mellitus with other specified complication E10.69 Active 24005760 Problem Primary insomnia F51.01 Active 397 2004 Problem Depression, unspecified depression type F32.9 Active 01980447 Problem Anemia, unspecified type D64.9 Activ e 016001343 Problem Falls frequently R29.6 Active 279 690630 Problem Bilateral hearing loss, unspecified hearing loss type H91.93 Active 97982103 Problem Other chronic pain G89.29 Active 8 5640737 Problem End stage renal disease N18.6 Active 13169352 Problem Major depression, chronic F34.1 Acti ve 763909731 Problem Chronic GERD K21.9 Active 0142575 09 ALLERGIES No Information ENCOUNTERS Encounter Location Date Diagnosis [place] [id number] [place] [id number] [address] [place] [phone] 17 Aug, 2017 Effusion of right elbow M25. 421 [place] [address] [facility] [id number] [address] [place] [phone] 13 Aug, 2017 Diabetic peripheral neuropat hy E11.42 [facility] [address] [facility] [id number] [address] [place] [phone] Jul, [place] [address] [facility] [id number] [address] [place] [phone] 28 Jul, 2017 Medicare annual wellness vis it, initial Z00.00 ; Diabetic peripheral neuropathy E11.42 ; End stage renal disease N18.6 ; Type 1 diabetes mellitus with other specified complication E10.69 ; Anemia, unspecified type D64.9 ; Falls frequently R29.6 ; Chronic GERD K21.9 ; Major depression, chronic F34.1 and Bilateral hearing loss, unspecified hearing loss type H91.93 [facility] [address] [place] [id number] [address] [place] [phone] Jun, [facility] [address] [place] [id number] [address] [place] [phone] Jun, Low back pain M54.5 and Prim linwood insomnia F51.01 [facility] [address] [facility] [id number] [address] [place] [phone] May, Diabetic peripheral neuropat hy E11.42 [place] [address] [place] [id number] [place] [phone] May, [place] [address] [place] [id number] [place] [phone] May, [place] [address] [place] [id number] [address] [place] [phone] May, [facility] [address] [place] [id number] [address] [place] [phone] May, Diabetic peripheral neuropat hy E11.42 ; Type 1 diabetes mellitus with other specified complication E10.69 ; Primary insomnia F51.01 ; Depression, unspecified depression type F32.9 ; End stage renal disease N18.6 ; Left foot drop M21.372 and Foot drop, right foot M21.371 [place] [address] [place] [id number] [address] [place] [id number] Apr, [place] [address] [facility] [id number] [address] [place] [phone] Apr, [place] [address] [place] [id number] [place] [phone] Mar, Foot drop, left M21.372 and Foot drop, right M21.371 [place] [address] [place] [id number] [address] [place] [phone] Mar, [place] [address] [id number] [address] [place] [id number] 18 Feb, 2017 Type 1 diabetes mellitus wit h other specified complication E10.69 and Olecranon bursitis, unspecified laterality M70.20 [facility] [address] [id number] [address] [place] [id number] 06 Feb, 2017 [facility] [address] [id number] [address] [place] [id number] 04 Feb, 2017 Diabetic peripheral neuropat hy E11.42 [facility] [address] [id number] [address] [place] [phone] Jan, Type 1 diabetes mellitus wit h other specified complication E10.69 [facility] [address] [id number] [address] [place] [phone] Dec, Type 1 diabetes mellitus wit h other specified complication E10.69 ; Primary insomnia F51.01 ; End stage renal disease N18.6 and Chronic GERD K21.9 [facility] [address] [id number] [address] [place] [phone] Dec, [facility] [address] [id number] [address] [place] [phone] Nov, [facility] [address] [facility] [id number] [address] [place] [id number] Oct, Diabetic peripheral neuropat hy E11.42 [facility] [address] [id number] [address] [place] [phone] Oct, [facility] [address] [id number] [address] [place] [id number] September, Type 1 diabetes mellitus wit h other specified complication E10.69 [facility] [address] [id number] [address] [place] [id number] September, Diabetic peripheral neuropat hy E11.42 [facility] [address] [id number] [address] [place] [phone] September, Diabetic peripheral neuropat hy E11.42 ; Type 1 diabetes mellitus with other specified complication E10.69 and End stage renal disease N18.6 [facility] [address] [id number] [address] [place] [phone] September, [facility] [address] [id number] [address] [place] [phone] September, [facility] [address] [id number] [address] [place] [phone] Aug, [facility] [address] [id number] [address] [place] [id number] Aug, Low back pain, unspecified b ack pain laterality, unspecified chronicity, with sciatica presence unspecified M54.5 [facility] [address] [id number] [address] [place] [phone] Aug, [facility] [address] [id number] [address] [place] [id number] Jul, [facility] [address] [id number] [address] [place] [address] Jul, Low back pain M54.5 ; Other chronic pain G89.29 ; Type 1 diabetes mellitus with other specified complication E10.69 ; Diabetic peripheral neuropathy E11.42 ; Left foot drop M21.372 and Foot drop, right foot M21.371 [facility] [address] [id number] [address] [place] [phone] Jul, [facility] [address] [id number] [address] [place] [phone] Jul, [facility] [address] [id number] [address] [place] [phone] Jun, Low back pain, unspecified b ack pain laterality, unspecified chronicity, with sciatica presence unspecified M54.5 [facility] [address] [id number] [address] [place] [phone] Jun, [facility] [address] [id number] [address] [place] [phone] Jun, [facility] [address] [id number] [address] [place] [id number] Jun, [facility] [address] [facility] [id number] [address] [place] [phone] May, Type 1 diabetes mellitus wit h other specified complication E10.69 ; Diabetic peripheral neuropathy E11.42 and End stage renal disease N18.6 [facility] [address] [id number] [address] [place] [id number] Apr, Bronchitis J40 [facility] [address] [facility] [id number] [address] [place] [phone] Apr, Other bursal cyst, left elbo w M71.322 [facility] [address] [facility] [id number] [address] [place] [id number] Apr, [facility] [address] [facility] [id number] [address] [place] [phone] Apr, Other bursal cyst, left elbo w M71.322 [facility] [address] [id number] [address] [place] [phone] Mar, [facility] [address] [facility] [id number] [address] [place] [phone] Mar, Rib pain R07.81 and Type 1 d iabetes mellitus with other specified complication E10.69 [facility] [address] [id number] [address] [place] [phone] Feb, [facility] [address] [id number] [address] [place] [phone] Feb, [facility] [address] [facility] [id number] [address] [place] [id number] Dec, [facility] [address] [facility] [id number] [address] [place] [id number] Dec, [facility] [address] [facility] [id number] [address] [place] [phone] Nov, Type 1 diabetes mellitus wit h other specified complication E10.69 and End stage renal disease N18.6 [facility] [address] [id number] [address] [place] [phone] Nov, [facility] [address] [id number] [address] [place] [phone] Nov, [facility] [address] [id number] [address] [place] [phone] Nov, [facility] [address] [id number] [address] [place] [phone] Nov, [facility] [address] [id number] [address] [place] [phone] Nov, [facility] [address] [id number] [address] [place] [phone] Oct, [facility] [address] [id number] [address] [place] [phone] Oct, [facility] [address] [id number] [address] [place] [phone] September, [facility] [address] [id number] [address] [place] [phone] September, Type 1 diabetes mellitus wit h other specified complication E10.69 [facility] [address] [id number] [address] [place] [phone] September, [facility] [address] [id number] [address] [place] [id number] September, Diabetic peripheral neuropat hy E11.42 ; Type 1 diabetes mellitus with other specified complication E10.69 ; Chronic kidney disease, stage 3 (moderate) N18.3 and Incomplete tear of left rotator cuff M75.112 [facility] [address] [id number] [address] [place] [phone] September, [facility] [address] [id number] [address] [place] [id number] Aug, [facility] [address] [id number] [address] [place] [phone] Aug, [facility] [address] [id number] [address] [place] [id number] Aug, Other chronic pain G89.29 an d Pain in left shoulder M25.512 [facility] [address] [id number] [address] [place] [phone] Aug, Physical deconditioning R53. 81 ; Pain in right shoulder M25.511 and Other chronic pain G89.29 [facility] [address] [id number] [address] [place] [id number] Aug, [facility] [address] [id number] [address] [place] [id number] Jul, Type 1 diabetes mellitus wit h other specified complication E10.69 ; Diabetic peripheral neuropathy E11.42 and Physical deconditioning R53.81 [facility] [address] [id number] [address] [place] [id number] Jul, [facility] [address] [id number] [address] [place] [id number] Jul, [facility] [address] [id number] [address] [place] [id number] Jun, [facility] [address] [id number] [address] [place] [id number] Jun, Type 1 diabetes mellitus wit h other specified complication E10.69 ; Insomnia G47.00 and Diabetic peripheral neuropathy E11.42 [facility] [address] [id number] [address] [place] [id number] Jun, [facility] [address] [id number] [address] [place] [phone] Jun, Physical deconditioning R53. 81 [facility] [address] [id number] [address] [place] [phone] Jun, [facility] [address] [facility] [id number] [address] [place] [id number] May, [facility] [address] [id number] [address] [place] [phone] May, [facility] [address] [id number] [address] [place] [phone] May, [facility] [address] [facility] [id number] [address] [place] [id number] May, [facility] [address] [facility] [id number] [address] [place] [id number] May, [facility] [address] [facility] [id number] [address] [place] [id number] May, Adjustment disorder with dep ressed mood F43.21 [facility] [address] [facility] [id number] [address] [place] [phone] May, Type 1 diabetes mellitus wit h other specified complication E10.69 ; Anemia, unspecified type D64.9 ; Gastric peptic ulcer, acute K25.3 and Physical deconditioning R53.81 [facility] [address] [id number] [address] [place] [phone] May, [facility] [address] [facility] [id number] [address] [place] [id number] May, Type 1 diabetes mellitus wit h other specified complication E10.69 [facility] [address] [facility] [id number] [address] [place] [phone] May, [facility] [address] [id number] [address] [place] [phone] May, [facility] [address] [facility] [id number] [address] [place] [phone] May, [facility] [address] [facility] [id number] [address] [place] [phone] May, [facility] [address] [facility] [id number] [address] [place] [id number] May, Type 1 diabetes mellitus wit h other specified complication E10.69 ; Depression, unspecified depression type F32.9 ; Anemia, unspecified type D64.9 ; Diabetic peripheral neuropathy E11.42 ; Gastric peptic ulcer, acute K25.3 ; Primary insomnia F51.01 and Pneumonia J18.9 [facility] [address] [facility] [id number] [address] [place] [id number] May, [facility] [address] [facility] [id number] [address] [place] [id number] May, IMMUNIZATIONS No Known Immunizations SOCIAL HISTORY [...]
--- OUTSIDE RECORDS SUMMARY | 2019-09-28 09:01 | XMS REPORT ---
Author Author Stef HARRELL Organization [facility] Address [address] [place] [address] Care Team Providers Care Stock Taker Name Role Phone SARI HARRELL Unavailable PROBLEMS Type Condition ICD9-CM Code [id number] Code Onset Dates Condition S tatus SNOMED Code Problem Diabetic peripheral neuropathy E11.42 Active 370677850 Problem Type 1 diabetes mellitus with other specified complication E10.69 Active 95142400 Problem Primary insomnia F51.01 Active 397 2004 Problem Depression, unspecified depression type F32.9 Active 70142018 Problem Anemia, unspecified type D64.9 Activ e [id number] Problem Falls frequently R29.6 Active 279 802337 Problem Bilateral hearing loss, unspecified hearing loss type H91.93 Active 26418162 Problem Other chronic pain G89.29 Active 8 5917180 Problem End stage renal disease N18.6 Active 64835423 Problem Major depression, chronic F34.1 Acti ve 801277662 Problem Chronic GERD K21.9 Active 8899127 09 ALLERGIES No Information ENCOUNTERS Encounter Location Date Diagnosis [facility] [address] [facility] [id number] [address] [place] [address] September, [facility] [address] [facility] [id number] [address] [place] [address] Aug, Effusion of right elbow M25. 421 [facility] [address] [facility] [id number] [address] [place] [address] Aug, Diabetic peripheral neuropat hy E11.42 [facility] [address] [facility] [id number] [address] [place] [address] Jul, [facility] [address] [facility] [id number] [address] [place] [address] Jul, Medicare annual wellness vis it, initial Z00.00 ; Diabetic peripheral neuropathy E11.42 ; End stage renal disease N18.6 ; Type 1 diabetes mellitus with other specified complication E10.69 ; Anemia, unspecified type D64.9 ; Falls frequently R29.6 ; Chronic GERD K21.9 ; Major depression, chronic F34.1 and Bilateral hearing loss, unspecified hearing loss type H91.93 [place] [address] [place] [id number] [address] [place] [address] Jun, [place] [address] [facility] [id number] [address] [place] [address] Jun, Low back pain M54.5 and Prim linwood insomnia F51.01 [place] [address] [facility] [id number] [address] [place] [address] May, Diabetic peripheral neuropat hy E11.42 [place] [address] [place] [id number] [place] [address] May, [place] [address] [place] [id number] [address] [place] [address] May, [place] [address] [place] [id number] [address] [place] [address] May, [place] [address] [place] [id number] [place] [address] May, Diabetic peripheral neuropat hy E11.42 ; Type 1 diabetes mellitus with other specified complication E10.69 ; Primary insomnia F51.01 ; Depression, unspecified depression type F32.9 ; End stage renal disease N18.6 ; Left foot drop M21.372 and Foot drop, right foot M21.371 [place] [address] [place] [id number] [address] [place] [address] Apr, [place] [address] [place] [id number] [place] [address] Apr, [place] [address] [facility] [id number] [address] [place] [address] Mar, Foot drop, left M21.372 and Foot drop, right M21.371 [place] [address] [id number] [address] [place] [address] Mar, [facility] [address] [id number] [address] [place] [address] Feb, Type 1 diabetes mellitus wit h other specified complication E10.69 and Olecranon bursitis, unspecified laterality M70.20 [facility] [address] [id number] [address] [place] [address] Feb, [facility] [address] [id number] [address] [place] [address] Feb, Diabetic peripheral neuropat hy E11.42 [facility] [address] [id number] [address] [place] [address] Jan, Type 1 diabetes mellitus wit h other specified complication E10.69 [facility] [address] [id number] [address] [place] [address] Dec, Type 1 diabetes mellitus wit h other specified complication E10.69 ; Primary insomnia F51.01 ; End stage renal disease N18.6 and Chronic GERD K21.9 [facility] [address] [id number] [address] [place] [address] Dec, [facility] [address] [id number] [address] [place] [address] Nov, [facility] [address] [id number] [address] [place] [address] Oct, Diabetic peripheral neuropat hy E11.42 [facility] [address] [id number] [address] [place] [address] Oct, [facility] [address] [id number] [address] [place] [address] September, Type 1 diabetes mellitus wit h other specified complication E10.69 [facility] [address] [id number] [address] [place] [address] September, Diabetic peripheral neuropat hy E11.42 [facility] [address] [id number] [address] [place] [address] September, Diabetic peripheral neuropat hy E11.42 ; Type 1 diabetes mellitus with other specified complication E10.69 and End stage renal disease N18.6 [facility] [address] [facility] [id number] [address] [place] [address] September, [facility] [address] [id number] [address] [place] [address] September, [facility] [address] [id number] [address] [place] [address] Aug, [facility] [address] [id number] [address] [place] [address] Aug, Low back pain, unspecified b ack pain laterality, unspecified chronicity, with sciatica presence unspecified M54.5 [facility] [address] [facility] [id number] [address] [place] [address] Aug, [facility] [address] [facility] [id number] [address] [place] [address] Jul, [facility] [address] [facility] [id number] [address] [place] [address] Jul, Low back pain M54.5 ; Other chronic pain G89.29 ; Type 1 diabetes mellitus with other specified complication E10.69 ; Diabetic peripheral neuropathy E11.42 ; Left foot drop M21.372 and Foot drop, right foot M21.371 [facility] [address] [facility] [id number] [address] [place] [address] Jul, [facility] [address] [facility] [id number] [address] [place] [address] Jul, [facility] [address] [facility] [id number] [address] [place] [address] Jun, Low back pain, unspecified b ack pain laterality, unspecified chronicity, with sciatica presence unspecified M54.5 [facility] [address] [facility] [id number] [address] [place] [address] Jun, [facility] [address] [id number] [address] [place] [address] Jun, [facility] [address] [id number] [address] [place] [address] Jun, [facility] [address] [facility] [id number] [address] [place] [address] May, Type 1 diabetes mellitus wit h other specified complication E10.69 ; Diabetic peripheral neuropathy E11.42 and End stage renal disease N18.6 [facility] [address] [id number] [address] [place] [address] Apr, Bronchitis J40 [facility] [address] [facility] [id number] [address] [place] [address] Apr, Other bursal cyst, left elbo w M71.322 [facility] [address] [facility] [id number] [address] [place] [address] Apr, [facility] [address] [id number] [address] [place] [address] Apr, Other bursal cyst, left elbo w M71.322 [facility] [address] [id number] [address] [place] [address] Mar, [facility] [address] [facility] [id number] [address] [place] [address] Mar, Rib pain R07.81 and Type 1 d iabetes mellitus with other specified complication E10.69 [facility] [address] [id number] [address] [place] [address] Feb, [facility] [address] [facility] [id number] [address] [place] [address] Feb, [facility] [address] [facility] [id number] [address] [place] [address] Dec, [facility] [address] [facility] [id number] [address] [place] [address] Dec, [facility] [address] [id number] [address] [place] [address] Nov, Type 1 diabetes mellitus wit h other specified complication E10.69 and End stage renal disease N18.6 [facility] [address] [id number] [address] [place] [address] Nov, [facility] [address] [id number] [address] [place] [address] Nov, [facility] [address] [id number] [address] [place] [address] Nov, [facility] [address] [id number] [address] [place] [address] Nov, [facility] [address] [id number] [address] [place] [address] Nov, [facility] [address] [id number] [address] [place] [address] Oct, [facility] [address] [id number] [address] [place] [address] Oct, [facility] [address] [id number] [address] [place] [address] September, [facility] [address] [id number] [address] [place] [address] September, Type 1 diabetes mellitus wit h other specified complication E10.69 [facility] [address] [id number] [address] [place] [address] September, [facility] [address] [id number] [address] [place] [address] September, Diabetic peripheral neuropat hy E11.42 ; Type 1 diabetes mellitus with other specified complication E10.69 ; Chronic kidney disease, stage 3 (moderate) N18.3 and Incomplete tear of left rotator cuff M75.112 [facility] [address] [id number] [address] [place] [address] September, [facility] [address] [id number] [address] [place] [address] Aug, [facility] [address] [id number] [address] [place] [address] Aug, [facility] [address] [id number] [address] [place] [address] Aug, Other chronic pain G89.29 an d Pain in left shoulder M25.512 [facility] [address] [id number] [address] [place] [address] Aug, Physical deconditioning R53. 81 ; Pain in right shoulder M25.511 and Other chronic pain G89.29 [facility] [address] [id number] [address] [place] [address] Aug, [facility] [address] [id number] [address] [place] [address] Jul, Type 1 diabetes mellitus wit h other specified complication E10.69 ; Diabetic peripheral neuropathy E11.42 and Physical deconditioning R53.81 [facility] [address] [id number] [address] [place] [address] Jul, [facility] [address] [id number] [address] [place] [address] Jul, [facility] [address] [id number] [address] [place] [address] Jun, [facility] [address] [id number] [address] [place] [address] Jun, Type 1 diabetes mellitus wit h other specified complication E10.69 ; Insomnia G47.00 and Diabetic peripheral neuropathy E11.42 [facility] [address] [id number] [address] [place] [address] Jun, [facility] [address] [id number] [address] [place] [address] Jun, Physical deconditioning R53. 81 [facility] [address] [id number] [address] [place] [address] Jun, [facility] [address] [facility] [id number] [address] [place] [address] May, [facility] [address] [facility] [id number] [address] [place] [address] May, [facility] [address] [facility] [id number] [address] [place] [address] May, [facility] [address] [facility] [id number] [address] [place] [address] May, [facility] [address] [facility] [id number] [address] [place] [address] May, [facility] [address] [place] [id number] [address] [place] [address] May, Adjustment disorder with dep ressed mood F43.21 [facility] [address] [place] [id number] [address] [place] [address] May, Type 1 diabetes mellitus wit h other specified complication E10.69 ; Anemia, unspecified type D64.9 ; Gastric peptic ulcer, acute K25.3 and Physical deconditioning R53.81 [facility] [address] [facility] [id number] [address] [place] [address] May, [facility] [address] [facility] [id number] [address] [place] [address] May, Type 1 diabetes mellitus wit h other specified complication E10.69 [facility] [address] [facility] [id number] [address] [place] [address] May, [facility] [address] [place] [id number] [address] [place] [address] May, [facility] [address] [place] [id number] [address] [place] [address] May, [facility] [address] [place] [id number] [address] [place] [address] May, [facility] [address] [facility] [id number] [address] [place] [address] May, Type 1 diabetes mellitus wit h other specified complication E10.69 ; Depression, unspecified depression type F32.9 ; Anemia, unspecified type D64.9 ; Diabetic peripheral neuropathy E11.42 ; Gastric peptic ulcer, acute K25.3 ; Primary insomnia F51.01 and Pneumonia J18.9 [facility] [address] [facility] [id number] [address] [place] [address] May, [facility] [address] [facility] [id number] [address] [place] [address] May, IMMUNIZATIONS No Known Immunizations SOCIAL HISTORY Never Assessed REASON FOR VISIT Requests order for Braces PLAN OF CARE VITAL SIGNS MEDICATIONS Unknown Medications RESULTS No Results PROCEDURES Procedure Date Ordered Result Body Site AFO MOLDED TO PATIENT PLASTI 2017-03-30 N/A ANK FT ORTHOS PLSTC/OTH MATL CSTM Mar 30, 2017 INSTRUCTIONS MEDICATIONS ADMINISTERED No Known Medications [...]
--- OUTSIDE RECORDS SUMMARY | 2019-09-28 09:01 | XMS REPORT ---
Author Author Stef HARRELL Organization [facility] Address [address] [place] [address] Care Team Providers Care Cook Helper Preserves Name Role Phone SARI HARRELL Unavailable PROBLEMS Type Condition ICD9-CM Code MQD28-WF Code Onset Dates Condition S tatus SNOMED Code Problem Anemia, unspecified type D64.9 Activ e 467304981 Problem Depression, unspecified depression type F32.9 Active 41206551 Problem Chronic GERD K21.9 Active 3754911 09 Problem Other chronic pain G89.29 Active 8 3395051 Problem Primary insomnia F51.01 Active 397 2004 Problem Diabetic peripheral neuropathy E11.42 Active 808914375 Problem End stage renal disease N18.6 Active 48098062 Problem Type 1 diabetes mellitus with other specified complication E10.69 Active 35280370 ALLERGIES No Information SOCIAL HISTORY Never Assessed [...]
--- OUTSIDE RECORDS SUMMARY | 2019-09-28 09:01 | XMS REPORT ---
Author Author Stef HARRELL Organization [facility] Address [address] [place] [address] Care Team Providers Care Pension Administrator Name Role Phone SARI HARRELL Unavailable PROBLEMS Type Condition ICD9-CM Code [id number] Code Onset Dates Condition S tatus SNOMED Code Problem Diabetic peripheral neuropathy E11.42 Active 818977619 Problem Type 1 diabetes mellitus with other specified complication E10.69 Active 07123819 Problem Primary insomnia F51.01 Active 397 2004 Problem Depression, unspecified depression type F32.9 Active 42157581 Problem Anemia, unspecified type D64.9 Activ e 039371124 Problem Falls frequently R29.6 Active 279 806057 Problem Bilateral hearing loss, unspecified hearing loss type H91.93 Active 03661216 Problem Other chronic pain G89.29 Active 8 7971073 Problem End stage renal disease N18.6 Active 22965659 Problem Major depression, chronic F34.1 Acti ve 048970242 Problem Chronic GERD K21.9 Active 3907374 09 ALLERGIES No Information ENCOUNTERS Encounter Location Date Diagnosis [facility] [address] [id number] [address] [place] [id number] Oct, [facility] [address] [facility] [id number] [address] [place] [phone] Oct, [facility] [address] [facility] [id number] [address] [place] [phone] September, [facility] [address] [facility] [id number] [address] [place] [id number] 17 Aug, 2017 Effusion of right elbow M25. 421 [facility] [address] [facility] [id number] [address] [place] [phone] 13 Aug, 2017 Diabetic peripheral neuropat hy E11.42 [facility] [address] [facility] [id number] [address] [place] [phone] Jul, [facility] [address] [facility] [id number] [address] [place] [phone] Jul, Medicare annual wellness vis it, initial Z00.00 ; Diabetic peripheral neuropathy E11.42 ; End stage renal disease N18.6 ; Type 1 diabetes mellitus with other specified complication E10.69 ; Anemia, unspecified type D64.9 ; Falls frequently R29.6 ; Chronic GERD K21.9 ; Major depression, chronic F34.1 and Bilateral hearing loss, unspecified hearing loss type H91.93 [place] [address] [facility] [id number] [address] [place] [phone] Jun, [place] [address] [facility] [id number] [address] [place] [phone] Jun, Low back pain M54.5 and Prim linwood insomnia F51.01 [place] [address] [facility] [id number] [address] [place] [phone] May, Diabetic peripheral neuropat hy E11.42 [place] [address] [facility] [id number] [address] [place] [phone] May, [facility] [address] [facility] [id number] [address] [place] [id number] May, [facility] [address] [facility] [id number] [address] [place] [phone] May, [facility] [address] [facility] [id number] [address] [place] [phone] May, Diabetic peripheral neuropat hy E11.42 ; Type 1 diabetes mellitus with other specified complication E10.69 ; Primary insomnia F51.01 ; Depression, unspecified depression type F32.9 ; End stage renal disease N18.6 ; Left foot drop M21.372 and Foot drop, right foot M21.371 [facility] [address] [facility] [id number] [address] [place] [phone] Apr, [facility] [address] [facility] [id number] [address] [place] [phone] Apr, [facility] [address] [facility] [id number] [address] [place] [id number] Mar, Foot drop, left M21.372 and Foot drop, right M21.371 [facility] [address] [facility] [id number] [address] [place] [phone] Mar, [facility] [address] [facility] [id number] [address] [place] [phone] Feb, Type 1 diabetes mellitus wit h other specified complication E10.69 and Olecranon bursitis, unspecified laterality M70.20 [facility] [address] [facility] [id number] [address] [place] [id number] Feb, [facility] [address] [facility] [id number] [address] [place] [phone] Feb, Diabetic peripheral neuropat hy E11.42 [place] [address] [facility] [id number] [address] [place] [id number] Jan, Type 1 diabetes mellitus wit h other specified complication E10.69 [facility] [address] [id number] [address] [place] [id number] Dec, Type 1 diabetes mellitus wit h other specified complication E10.69 ; Primary insomnia F51.01 ; End stage renal disease N18.6 and Chronic GERD K21.9 [facility] [address] [facility] [id number] [address] [place] [phone] Dec, [facility] [address] [facility] [id number] [address] [place] [phone] Nov, [facility] [address] [facility] [id number] [address] [place] [phone] Oct, Diabetic peripheral neuropat hy E11.42 [facility] [address] [facility] [id number] [address] [place] [phone] Oct, [facility] [address] [facility] [id number] [address] [place] [phone] September, Type 1 diabetes mellitus wit h other specified complication E10.69 [facility] [address] [id number] [address] [place] [phone] September, Diabetic peripheral neuropat hy E11.42 [facility] [address] [id number] [address] [place] [id number] September, Diabetic peripheral neuropat hy E11.42 ; Type 1 diabetes mellitus with other specified complication E10.69 and End stage renal disease N18.6 [facility] [address] [id number] [address] [place] [phone] September, [facility] [address] [id number] [address] [place] [phone] September, [facility] [address] [id number] [address] [place] [phone] Aug, [facility] [address] [id number] [address] [place] [phone] Aug, Low back pain, unspecified b ack pain laterality, unspecified chronicity, with sciatica presence unspecified M54.5 [facility] [address] [id number] [address] [place] [id number] Aug, [facility] [address] [id number] [address] [place] [phone] Jul, [facility] [address] [id number] [address] [place] [id number] Jul, Low back pain M54.5 ; Other chronic pain G89.29 ; Type 1 diabetes mellitus with other specified complication E10.69 ; Diabetic peripheral neuropathy E11.42 ; Left foot drop M21.372 and Foot drop, right foot M21.371 [facility] [address] [id number] [address] [place] [id number] Jul, [facility] [address] [id number] [address] [place] [id number] Jul, [facility] [address] [id number] [address] [place] [id number] Jun, Low back pain, unspecified b ack pain laterality, unspecified chronicity, with sciatica presence unspecified M54.5 [facility] [address] [facility] [id number] [address] [place] [phone] Jun, [facility] [address] [facility] [id number] [address] [place] [phone] Jun, [facility] [address] [facility] [id number] [address] [place] [phone] Jun, [facility] [address] [facility] [id number] [address] [place] [phone] May, Type 1 diabetes mellitus wit h other specified complication E10.69 ; Diabetic peripheral neuropathy E11.42 and End stage renal disease N18.6 [facility] [address] [facility] [id number] [address] [place] [phone] Apr, Bronchitis J40 [facility] [address] [facility] [id number] [address] [place] [phone] Apr, Other bursal cyst, left elbo w M71.322 [facility] [id number] [address] [place] [id number] Apr, [facility] [address] [facility] [id number] [address] [place] [id number] Apr, Other bursal cyst, left elbo w M71.322 [facility] [address] [facility] [id number] [address] [place] [id number] Mar, [facility] [address] [facility] [id number] [address] [place] [phone] Mar, Rib pain R07.81 and Type 1 d iabetes mellitus with other specified complication E10.69 [facility] [address] [facility] [id number] [address] [place] [phone] Feb, [facility] [address] [id number] [address] [place] [phone] Feb, [facility] [address] [id number] [address] [place] [phone] Dec, [facility] [address] [id number] [address] [place] [phone] Dec, [facility] [address] [id number] [address] [place] [phone] Nov, Type 1 diabetes mellitus wit h other specified complication E10.69 and End stage renal disease N18.6 [facility] [address] [id number] [address] [place] [phone] Nov, [facility] [address] [id number] [address] [place] [phone] Nov, [facility] [address] [id number] [address] [place] [phone] Nov, [facility] [address] [id number] [address] [place] [id number] Nov, [facility] [address] [id number] [address] [place] [phone] Nov, [facility] [address] [id number] [address] [place] [id number] Oct, [facility] [address] [id number] [address] [place] [phone] Oct, [facility] [address] [id number] [address] [place] [phone] September, [facility] [address] [id number] [address] [place] [id number] September, Type 1 diabetes mellitus wit h other specified complication E10.69 [facility] [address] [id number] [address] [place] [id number] September, [facility] [address] [id number] [address] [place] [phone] September, Diabetic peripheral neuropat hy E11.42 ; Type 1 diabetes mellitus with other specified complication E10.69 ; Chronic kidney disease, stage 3 (moderate) N18.3 and Incomplete tear of left rotator cuff M75.112 [facility] [address] [id number] [address] [place] [phone] September, [facility] [address] [id number] [address] [place] [phone] Aug, [facility] [address] [id number] [address] [place] [id number] Aug, [facility] [address] [id number] [address] [place] [id number] Aug, Other chronic pain G89.29 an d Pain in left shoulder M25.512 [facility] [address] [facility] [id number] [address] [place] [id number] Aug, Physical deconditioning R53. 81 ; Pain in right shoulder M25.511 and Other chronic pain G89.29 [facility] [address] [id number] [address] [place] [id number] Aug, [facility] [address] [id number] [address] [place] [id number] Jul, Type 1 diabetes mellitus wit h other specified complication E10.69 ; Diabetic peripheral neuropathy E11.42 and Physical deconditioning R53.81 [facility] [address] [id number] [address] [place] [id number] Jul, [facility] [address] [id number] [address] [place] [id number] Jul, [facility] [address] [id number] [address] [place] [phone] Jun, [facility] [address] [facility] [id number] [address] [place] [id number] Jun, Type 1 diabetes mellitus wit h other specified complication E10.69 ; Insomnia G47.00 and Diabetic peripheral neuropathy E11.42 [facility] [address] [facility] [id number] [address] [place] [phone] 04 Jun, 2015 [facility] [address] [facility] [id number] [address] [place] [id number] Jun, Physical deconditioning R53. 81 [facility] [address] [id number] [address] [place] [id number] Jun, [facility] [address] [facility] [id number] [address] [place] [phone] May, [facility] [address] [facility] [id number] [address] [place] [id number] May, [facility] [address] [facility] [id number] [address] [place] [phone] May, [facility] [address] [facility] [id number] [address] [place] [id number] May, [facility] [address] [facility] [id number] [address] [place] [phone] May, [facility] [address] [facility] [id number] [address] [place] [id number] May, Adjustment disorder with dep ressed mood F43.21 [facility] [address] [facility] [id number] [address] [place] [id number] May, Type 1 diabetes mellitus wit h other specified complication E10.69 ; Anemia, unspecified type D64.9 ; Gastric peptic ulcer, acute K25.3 and Physical deconditioning R53.81 [facility] [address] [facility] [id number] [address] [place] [phone] May, [facility] [address] [facility] [id number] [address] [place] [id number] May, Type 1 diabetes mellitus wit h other specified complication E10.69 [facility] [address] [facility] [id number] [address] [place] [phone] May, [facility] [address] [facility] [id number] [address] [place] [id number] May, [facility] [address] [facility] [id number] [address] [place] [phone] May, [facility] [address] [facility] [id number] [address] [place] [phone] May, [facility] [address] [facility] [id number] [address] [place] [phone] May, Type 1 diabetes mellitus wit h other specified complication E10.69 ; Depression, unspecified depression type F32.9 ; Anemia, unspecified type D64.9 ; Diabetic peripheral neuropathy E11.42 ; Gastric peptic ulcer, acute K25.3 ; Primary insomnia F51.01 and Pneumonia J18.9 [place] [address] [facility] [id number] [address] [place] [phone] May, [facility] [address] [facility] [id number] [address] [place] [id number] May, IMMUNIZATIONS No Known Immunizations SOCIAL HISTORY Never Assessed REASON FOR VISIT Lyrica Refill PLAN OF CARE VITAL SIGNS MEDICATIONS [...]
--- OUTSIDE RECORDS SUMMARY | 2019-09-28 09:01 | XMS REPORT ---
Author Author Stef FRANCISCO Organization [facility] Address [address] [place] [address] Care Team Providers Care Special Education Science Teacher Name Role Phone GHASSAN RFANCISCO Unavailable PROBLEMS Type Condition ICD9-CM Code NYP53-BK Code Onset Dates Condition S tatus SNOMED Code Problem Anemia, unspecified type D64.9 Activ e [id number] Problem Depression, unspecified depression type F32.9 Active 95459079 Problem Chronic GERD K21.9 Active 8437476 09 Problem Other chronic pain G89.29 Active 8 5812887 Problem Primary insomnia F51.01 Active 397 2004 Problem Diabetic peripheral neuropathy E11.42 Active 294736365 Problem End stage renal disease N18.6 Active 66736383 Problem Type 1 diabetes mellitus with other specified complication E10.69 Active 31834121 ALLERGIES No Information SOCIAL HISTORY Never Assessed PLAN OF CARE VITAL SIGNS MEDICATIONS Medication Instructions Dosage Frequency Start Date End Date Duration S tatus Levemir FlexTouch 100 UNIT/ML INJECT 16 UNITS SUBCUTANEOUSLY IN THE MORNING AND 30 UNITS IN THE EVENING 30 Active RESULTS No Results PROCEDURES No Known [...]
--- OUTSIDE RECORDS SUMMARY | 2019-09-28 09:01 | XMS REPORT ---
Author Author Stef DAVIS Organization [employer] Address Unknown Phone Unavailable Care Team Providers Care Paper Machine Backtender Name Role Phone SARI DAVIS CP Unavailable [...] disorder with depressed mood F43.21 Active Assessment Other chronic pain G89.29 Active Problem Pneumonia J18.9 Active Problem Primary insomnia F51.01 Active Assessment Pain in left shoulder M25.512 Active Problem Gastric peptic ulcer, acute K25.3 Active Medications No Known Medications Results No Known Results Summary Purpose [employer] Submission
--- OUTSIDE RECORDS SUMMARY | 2019-09-28 09:04 | XMS REPORT | Continuity of Care Document ---
Demographics Preferred Language Unknown Marital Status Unknown Episcopalian Affiliation Unknown Race Unknown Ethnic Group Unknown Author Organization Unknown Address Unknown Phone Unavailable Allergies Active Description Code Type Severity Reaction Onset Reported/Identified Relationship to Patient Clinical Status Yes CODEINE SULFATE M ODERATE MODERATE Yes CODEINE SULFATE M ODERATE OTHER Yes PENICILLINS MODERATE MODERATE Yes PENICILLINS MODERATE OTHER Yes PCN PCN Moderate N/A 04/18/2015 Yes Penicillins [id number] Drug Aller gy Mild N/A 04/24/2015 Yes codeine [id number] Drug Allergy Moderate NAUSEA 04/27/2015 Yes hydrocodone [id number] Drug Aller gy Unknown NAUSEA 11/22/2015 Yes oxycodone [id number] Drug Allergy Unknown N/A 11/22/2015 Medications Medication Packaging Start Date St op Date Route Dosage Sig D5W 250CC IV BAG INJ ml 08/04/2018 08/07/2018 EVERY 8 Hour&0450,1250,2050 Piperacillin-tazobactam) 2.2 5 Gm IV Vial (Zosyn) GM 08/04/2018 08/04/2018 ONCE&2050 IPRATROPIUM/ALBUTEROL INH SO LN (DUO-NEB INH SOLN) MLS 08/04/2018 08/04/2018 ONCE&210 NORMAL SALINE 1000CC IV BAG INJ 0.9 % (NS 1000CC IV BAG) ml 08/04/2018 08/19/2018 CONTINUOUSEVERY 0 Hour LACTATED RINGERS 1000CC IV BAG INJ ml 08/04/2018 08/04/2018 ONCE&211 LORAZEPAM 1CC VIAL INJ 2 MG/CC (ATIVAN VIA L) MG 08/04/2018 08/04/2018 ONCE&2124 Normal SALINE 0.9 % (NS 100cc) (plain bag) ml 08/04/2018 08/04/2018 ONCE&2130 SUCCINYL CHOLINE VIAL INJ 20 MG/CC (ANECTINE VIAL) MG 08/04/2018 08/04/2018 ONCE&2150 MIDAZOLAM INJ 5 MG/5CC (VERSED) MG 08/04/2018 08/04/2018 ONCE&2150 Etomidate (Amidate) IV solution 2mg/ml MPF vial MG 08/04/2018 08/04/2018 ONCE&2150 VECURONIUM VIAL INJ 10 MG (NORCURON VIAL) MG 08/04/2018 08/04/2018 ONCE&215 ACETAMINOPHEN SUPPOS SUP 650 MG (TYLENOL) MG 08/04/2018 08/11/2018 PRN Q4H Meropenem-0.9% sodium chlori de IV piggyback 1 Gm GM 08/05/2018 08/14/2018 Q12H&0600,1800 LIDOCAINE 1% W/PRESV W/EPI I NJ (XYLOCAINE W/EPI T PRESERV) ml 05/22/2019 05/22/2019 ONCE&2015 POLY/BACI/NEOM OINT OINT (NEOSPORIN) [place] 05/22/2019 05/22/2019 ONCE&2036 EPOETIN ALPHA VIAL INJ 20 K/ 1CC (PROCRIT [id number] UNIT VIAL 1CC) UNITS 08/02/2019 08/02/2019 ONCE&1316 EPOETIN ALPHA VIAL INJ 20 K/ 1CC (PROCRIT [id number] UNIT VIAL 1CC) UNITS 08/10/2019 08/10/2019 Q1WK&0950 EPOETIN ALPHA VIAL INJ 20 K/ 1CC (PROCRIT [id number] UNIT VIAL 1CC) UNITS 08/16/2019 08/16/2019 ONCE&1032 Problems Date Dx Coded Attending Type Code Diagnosis Diagnosed By 04/07/1104 CARLOS ENRIQUE PADGETT MD Ot E87.5 HYPERKALEMIA 04/07/1104 CARLOS ENRIQUE PADGETT MD Ot N17.9 ACUTE KIDNEY FAILURE, UNSPECIFIED 04/07/1104 CARLOS ENRIQUE PADGETT MD Ot N18.9 CHRONIC KIDNEY DISEASE, UNSPECIFIED 04/07/1104 CARLOS ENRIQUE PADGETT MD Ot R60.9 EDEMA, UNSPECIFIED 04/07/1104 CARLOS ENRIQUE PADGETT MD Ot R80.9 PROTEINURIA, UNSPECIFIED 04/07/1108 CARLOS ENRIQUE PADGETT MD Ot E87.5 HYPERKALEMIA 04/07/1108 CARLOS ENRIQUE PADGETT MD Ot N17.9 ACUTE KIDNEY FAILURE, UNSPECIFIED 04/07/1108 CARLOS ENRIQUE PADGETT MD Ot N18.9 CHRONIC KIDNEY DISEASE, UNSPECIFIED 04/07/1108 DAYRON REYES TALAL A Ot R60.9 EDEMA, UNSPECIFIED 04/07/1108 DAYRON REYES TALAL A Ot R80.9 PROTEINURIA, UNSPECIFIED 04/23/2015 MONICA REYES, NIKI E Ot B02.9 04/23/2015 MONICA REYES, NIKI E Ot D64.9 04/23/2015 MONICA REYES, NIKI E Ot E10.4 0 04/23/2015 MONICA REYES, NIKI E Ot G62.8 1 04/23/2015 MONICA REYES, NIKI E Ot I25.2 04/23/2015 MONICA REYES, NIKI E Ot M21.3 79 04/23/2015 MONICA REYES, NIKI E Ot M25.5 12 04/23/2015 MONICA REYES, NIKI E Ot N17.9 04/23/2015 MONICA REYES, NIKI E Ot Z23 04/23/2015 MONICA REYES, NIKI E Ot Z93.0 04/24/2015 MONICA REYES, NIKI E Ot B02.9 04/24/2015 MONICA REYES, NIKI E Ot D64.9 04/24/2015 MONICA REYES, NIKI E Ot E10.4 0 04/24/2015 MONICA REYES, NIKI E Ot G62.8 1 04/24/2015 MONICA REYES, NIKI E Ot I25.2 04/24/2015 MONICA REYES, NIKI E Ot M21.3 71 04/24/2015 MONICA REYES, NIKI E Ot M21.3 72 04/24/2015 MONICA REYES, NIKI E Ot M25.5 12 04/24/2015 MONICA REYES, NIKI E Ot N17.9 04/24/2015 MONICA REYES, NIKI E Ot Z23 04/24/2015 MONICA REYES, NIKI E Ot Z93.0 04/24/2015 MONICA REYES, NIKI E Ot B02.9 04/24/2015 MONICA REYES, NIKI E Ot D64.9 04/24/2015 MONICA REYES, NIKI E Ot E10.4 0 04/24/2015 MONICA REYES, NIKI E Ot G62.8 1 04/24/2015 MONICA REYES, NIKI E Ot I25.2 04/24/2015 MONICA REYES, NIKI E Ot M21.3 71 04/24/2015 MONICA REYES, NIKI E Ot M21.3 72 04/24/2015 MONICA REYES, NIKI E Ot M25.5 12 04/24/2015 MONICA REYES, NIKI E Ot N17.9 04/24/2015 MONICA REYES, NIKI E Ot Z23 04/24/2015 MONICA REYES, NIKI E Ot Z93.0 04/25/2015 MONICA REYES, NIKI E Ot B02.9 04/25/2015 MONICA REYES, NIKI E Ot D64.9 04/25/2015 MONICA REYES, NIKI E Ot E10.4 0 04/25/2015 MONICA REYES, NIKI E Ot G62.8 1 04/25/2015 MONICA REYES, NIKI E Ot I25.2 04/25/2015 MONICA REYES, NIKI E Ot M21.3 71 04/25/2015 MONICA REYES, NIKI E Ot M21.3 72 04/25/2015 MONICA REYES, NIKI E Ot M25.5 12 04/25/2015 MONICA REYES, NIKI E Ot N17.9 04/25/2015 MONICA REYES, NIKI E Ot Z23 04/25/2015 MONICA REYES, NIKI E Ot Z93.0 04/27/2015 MONICA REYES, NIKI E Ot B02.9 04/27/2015 MONICA REYES, NIKI E Ot D64.9 04/27/2015 MONICA REYES, NIKI E Ot E10.4 0 04/27/2015 MONICA REYES, NIKI E Ot G62.8 1 04/27/2015 MONICA REYES, NIKI E Ot I25.2 04/27/2015 MONICA REYES, NIKI E Ot M21.3 71 04/27/2015 MONICA REYES, NIKI E Ot M21.3 72 04/27/2015 MONICA REYES, NIKI E Ot M25.5 12 04/27/2015 MONICA REYES, NIKI E Ot N17.9 04/27/2015 MONICA REYES, NIKI E Ot Z23 04/27/2015 MONICA REYES, NIKI E Ot Z93.0 05/02/2015 MONICA REYES, NIKI E Ot B02.9 05/02/2015 MONICA REYES, NIKI E Ot D64.9 05/02/2015 MONICA REYES, NIKI E Ot E10.4 0 05/02/2015 MONICA REYES, NIKI E Ot G62.8 1 05/02/2015 MONICA REYES, NIKI E Ot I25.2 05/02/2015 MONICA REYES, NIKI E Ot M21.3 71 05/02/2015 MONICA REYES, NIKI E Ot M21.3 72 05/02/2015 MONICA REYES, NIKI E Ot M25.5 12 05/02/2015 MONICA REYES, NIKI E Ot N17.9 05/02/2015 MONICA REYES, NIKI E Ot Z23 05/02/2015 MONICA REYES, NIKI E Ot Z93.0 05/03/2015 MONICA REYES, NIKI E Ot B02.9 05/03/2015 MONICA REYES, NIKI E Ot D64.9 05/03/2015 MONICA REYES, NIKI E Ot E10.4 0 05/03/2015 MONICA REYES, NIKI E Ot G62.8 1 05/03/2015 MONICA REYES, NIKI E Ot I25.2 05/03/2015 MONICA REYES, NIKI E Ot M21.3 71 05/03/2015 MONICA REYES, NIKI E Ot M21.3 72 05/03/2015 MONICA REYES, NIKI E Ot M25.5 12 05/03/2015 MONICA REYES, NIKI E Ot N17.9 05/03/2015 MONICA REYES, NIKI E Ot Z23 05/03/2015 MONICA REYES, NIKI E Ot Z93.0 05/07/2015 MONICA REYES, NIKI E Ot B02.9 05/07/2015 MONICA REYES, NIKI E Ot D64.9 05/07/2015 MONICA REYES, NIKI E Ot E10.4 0 05/07/2015 MONICA REYES, NIKI E Ot G62.8 1 05/07/2015 MONICA REYES, NIKI E Ot I25.2 05/07/2015 MONICA REYES, NIKI E Ot M21.3 71 05/07/2015 MONICA REYES, NIKI E Ot M21.3 72 05/07/2015 MONICA REYES, NIKI E Ot M25.5 12 05/07/2015 MONICA REYES, NIKI E Ot N17.9 05/07/2015 MONICA REYES, NIKI E Ot Z23 05/07/2015 MONICA REYES, NIKI E Ot Z93.0 05/10/2015 MONICA REYES, NIKI E Ot B02.9 05/10/2015 MONICA REYES, NIKI E Ot D64.9 05/10/2015 MONICA REYES, NIKI E Ot E10.4 0 05/10/2015 MONICA REYES NIKI E Ot G62.8 1 05/10/2015 MONICA REYES NIKI E Ot I25.2 05/10/2015 MONICA REYES NIKI E Ot M21.3 71 05/10/2015 MONICA REYES NIKI E Ot M21.3 72 05/10/2015 MONICA REYES NIKI E Ot M25.5 12 05/10/2015 MONICA REYES NIKI E Ot N17.9 05/10/2015 MONICA REYES NIKI E Ot Z23 05/10/2015 MONICA RYEES NIKI E Ot Z93.0 05/12/2015 MONICA REYES NIKI E Ot B02.9 05/12/2015 MONICA REYES NIKI E Ot D64.9 05/12/2015 MONICA REYES NIKI E Ot E10.4 0 05/12/2015 MONICA REYES NIKI E Ot G62.8 1 05/12/2015 MONICA REYES NIKI E Ot I25.2 05/12/2015 MONICA REYES NIKI E Ot M21.3 71 05/12/2015 MONICA REYES NIKI E Ot M21.3 72 05/12/2015 MONICA REYES NIKI E Ot M25.5 12 05/12/2015 MONICA REYES NIKI E Ot N17.9 05/12/2015 MNOICA REYES NIKI E Ot Z23 05/12/2015 MONICA REYES NIKI E Ot Z93.0 05/13/2015 MONICA REYES NIKI E Ot A49.8 OTHER BACTERIAL INFECTIONS OF UNSPECIFIE 05/13/2015 MONICA REYES NIKI E Ot B02.9 ZOSTER WITHOUT COMPLICATIONS 05/13/2015 MONICA REYES NIKI E Ot D64.9 ANEMIA, UNSPECIFIED 05/13/2015 MONICA REYES NIKI E Ot E10.4 0 TYPE 1 DIABETES MELLITUS WITH DIABETIC N 05/13/2015 MONICA REYES NIKI E Ot E10.6 5 TYPE 1 DIABETES MELLITUS WITH HYPERGLYCE 05/13/2015 MONICA REYES NIKI E Ot E87.1 HYPO-OSMOLALITY AND HYPONATREMIA 05/13/2015 MONICA REYES NIKI E Ot E87.6 HYPOKALEMIA 05/13/2015 MONICA REYES NIKI E Ot G62.8 1 CRITICAL ILLNESS POLYNEUROPATHY 05/13/2015 MONICA REYES NIKI E Ot I25.2 OLD MYOCARDIAL INFARCTION 05/13/2015 NIKI ANDERSON MD Ot J18.9 PNEUMONIA, UNSPECIFIED ORGANISM 05/13/2015 NIKI ANDERSON MD Ot M21.3 71 FOOT DROP, RIGHT FOOT 05/13/2015 NIKI ANDERSON MD Ot M21.3 72 FOOT DROP, LEFT FOOT 05/13/2015 NIKI ANDERSON MD Ot M25.5 12 PAIN IN LEFT SHOULDER 05/13/2015 NIKI ANDERSON MD Ot N17.9 ACUTE KIDNEY FAILURE, UNSPECIFIED 05/13/2015 NIKI ANDERSON MD Ot R78.8 1 BACTEREMIA 05/13/2015 NIKI ANDERSON MD Ot Z23 ENCOUNTER FOR IMMUNIZATION 05/13/2015 NIKI ANDERSON MD Ot Z93.0 TRACHEOSTOMY STATUS 05/22/2015 ESQUIVEL DO, ELKE K Ot D64.9 05/22/2015 ESQUIVEL DO, ELKE K Ot E11.9 05/22/2015 ESQUIVEL DO, ELKE K Ot N17.9 05/22/2015 ESQUIVEL DO, ELKE K Ot Z79.89 9 06/05/2015 ESQUIVEL DO, ELKE K Ot D64.9 06/05/2015 ESQUIVEL DO, ELKE K Ot E11.9 06/05/2015 ESQUIVEL DO, ELKE K Ot N17.9 06/05/2015 ESQUIVEL DO, ELKE K Ot Z79.89 9 06/05/2015 EITAN CROUCH DO Ot J90 06/05/2015 EITAN CROUCH DO M Ot R06. 00 06/05/2015 EITAN CROUCH DO Ot R09. 02 06/05/2015 EITAN CROUCH DO Ot R06. 00 06/05/2015 EITAN CROUCH DO Ot R09. 02 06/05/2015 EITAN CROUCH DO Ot E11. 9 06/05/2015 EITAN CROUCH DO M Ot R09. 02 06/05/2015 ESQUIVEL DO, ELKE K Ot D64.9 06/05/2015 ESQUIVEL DO, ELKE K Ot E11.9 06/05/2015 ESQUIVEL DO, ELKE K Ot N17.9 06/05/2015 ESQUIVEL DO, ELKE K Ot Z79.89 9 06/05/2015 EITAN CROUCH DO Ot J90 06/05/2015 EITAN CROUCH DO Ot R06. 00 06/05/2015 WILLA HOANG EITAN M Ot R09. 02 06/05/2015 WILLA DO, EITAN M Ot R06. 00 06/05/2015 WILLA DO, EITAN M Ot R09. 02 06/05/2015 WILLA DO, EITAN M Ot E11. 9 06/05/2015 WILLA DO, EITAN M Ot R09. 02 06/05/2015 WILLA DO, EITAN M Ot E11. 9 06/05/2015 WILLA DO, EITAN M Ot R09. 02 06/05/2015 WILLA DO, EITAN M Ot J90 06/05/2015 WILLA DO, EITAN M Ot R06. 00 06/05/2015 WILLA DO, EITAN M Ot R09. 02 06/05/2015 WILLA DO, EITAN M Ot R06. 00 06/05/2015 WILLA DO, EITAN M Ot R09. 02 06/13/2015 ESQUIVEL DO, ELKE K Ot D64.9 06/13/2015 ESQUIVEL DO, ELKE K Ot E11.9 06/13/2015 ESQUIVEL DO, ELKE K Ot N17.9 06/13/2015 ESQUIVEL DO, ELKE K Ot Z79.89 9 06/13/2015 WILLA DO, EITAN M Ot J90 06/13/2015 WILLA DO, EITAN M Ot R06. 00 06/13/2015 WILLA DO, EITAN M Ot R09. 02 06/13/2015 WILLA DO, EITAN M Ot E11. 9 06/13/2015 WILLA DO, EITAN M Ot R09. 02 06/16/2015 WILLA DO, EITAN M Ot R06. 00 06/16/2015 WILLA DO, EITAN M Ot R09. 02 06/16/2015 WILLA DO, EITAN M Ot E66. 9 06/16/2015 WILLA DO, EITAN M Ot R06. 00 06/16/2015 WILLA DO, EITAN M Ot R09. 02 06/19/2015 WILLA DO, EITAN M Ot G47. 33 OBSTRUCTIVE SLEEP APNEA (ADULT) (PEDIATR 06/20/2015 SABIHA ESCALONA Ot D64.9 06/20/2015 SABIHA ESCALONA Ot R06.02 06/20/2015 SABIHA ESCALONA Ot R20.2 06/20/2015 SABIHA ESCALONA N Ot R53.1 06/20/2015 SABIHA ESCALONA N Ot R63.0 06/20/2015 SABIHA ESCALONA N Ot R63.4 06/20/2015 SABIHA ESCALONA N Ot R68.83 06/20/2015 SABIHA ESCALONA N Ot Z87.891 07/04/2015 DAYRON REYES, CARLOS ENRIQUE A Ot N17.9 07/04/2015 DAYRON REYES, LISETAL A Ot N17.9 07/08/2015 DAYRON REYES, LISETAL A Ot N17.9 07/14/2015 EL[facility] REYES [facility] Ot E11.22 07/14/2015 ELVER REYES [facility], [facility] Ot I50.21 07/14/2015 ELVER REYES [facility], [facility] CCDS Ot N18.3 07/16/2015 SARAHI MARION ECM[employer] SPECIALIST Ot D63.1 07/16/2015 SARAHI MARION ECMO SPECIALIST Ot N18.3 07/16/2015 SARAHI MARION ECMO SPECIALIST Ot Z79.899 07/16/2015 SARAHI MARION ECMO SPECIALIST Ot Z87.891 07/16/2015 CARLOS ENRIQUE PADGETT MD A Ot N17.9 07/18/2015 EITAN CROUCH DO Ot J90 07/18/2015 EITAN CROUCH DO Ot R06. 00 07/18/2015 EITAN CROUCH DO Ot R09. 02 07/18/2015 EITAN CROUCH DO Ot R06. 00 07/18/2015 EITAN CROUCH DO Ot R09. 02 07/18/2015 Ot D64.9 07/18/2015 Ot E11.29 07/18/2015 Ot N18.3 07/18/2015 Ot R60.9 07/21/2015 Ot D64.9 07/21/2015 Ot E11.29 07/21/2015 Ot N18.3 07/21/2015 Ot R60.9 07/22/2015 EITAN CROUCH DO Ot J90 07/22/2015 EITAN CROUCH DO Ot R06. 00 07/22/2015 EITAN CROUCH DO Ot R09. 02 07/22/2015 EITAN CROUCH DO Ot J90 07/22/2015 EITAN CROUCH DO Ot R06. 00 07/22/2015 EITAN CROUCH DO Ot R09. 02 07/22/2015 EITAN CROUCH DO Ot R06. 00 07/22/2015 EITAN CROUCH DO Ot R09. 02 07/29/2015 Ot D64.9 07/29/2015 Ot E11.29 07/29/2015 Ot N18.3 07/29/2015 Ot R60.9 08/15/2015 SARAHI MARION ECMO SPECIALIST Ot D63.1 08/15/2015 SARAHI MARION ECMO SPECIALIST Ot N18.3 08/15/2015 SARAHI MARION ECMO SPECIALIST Ot Z79.899 08/15/2015 SARAHI MARION ECMO SPECIALIST Ot Z87.891 08/26/2015 SARAHI MARION ECMO SPECIALIST Ot D63.1 ANEMIA IN CHRONIC KIDNEY DISEASE 08/26/2015 SARAHI MARION ECMO SPECIALIST Ot N18.3 CHRONIC KIDNEY DISEASE, STAGE 3 (MODERAT 08/26/2015 SARAHI MARION ECMO SPECIALIST Ot Z79.899 OTHER [facility] (CURRENT) DRUG THERAPY 08/26/2015 SARAHI MARION ECMO SPECIALIST Ot Z87.891 PERSONAL HISTORY OF NICOTINE DEPENDENCE 08/28/2015 CHELI ANTON APRN Ot R06.00 DYSPNEA, UNSPECIFIED 09/03/2015 SABIHA ESCALONA Ot D64.9 ANEMIA, UNSPECIFIED 09/03/2015 SABIHA ESCALONA Ot R06.02 SHORTNESS OF BREATH 09/03/2015 SABIHA ESCALONA Ot R20.2 PARESTHESIA OF SKIN 09/03/2015 SABIHA ESCALONA Ot R53.1 WEAKNESS 09/03/2015 SABIHA ESCALONA Ot R63.0 ANOREXIA 09/03/2015 SABIHA ESCALONA Ot R63.4 ABNORMAL WEIGHT LOSS 09/03/2015 SABIHA ESCALONA Ot R68.83 CHILLS (WITHOUT FEVER) 09/03/2015 SABIHA ESCALONA Ot Z87.891 PERSONAL HISTORY OF NICOTINE DEPENDENCE 09/03/2015 ESQUIVEL SIDNEY HOANGA Jenelle Ot D64.9 ANEMIA, UNSPECIFIED 09/03/2015 ELKE ESQUIVEL DO Ot E11.9 TYPE 2 DIABETES MELLITUS WITHOUT COMPLIC 09/03/2015 ELKE ESQUIVEL DO Ot N17.9 ACUTE KIDNEY FAILURE, UNSPECIFIED 09/03/2015 ELKE ESQUIVEL DO Ot 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 00 DYSPNEA, UNSPECIFIED 09/03/2015 WILLA HOANG EITAN Murray Ot R09. 02 HYPOXEMIA 09/03/2015 WILLA HOANG EITAN Murray Ot R06. 00 DYSPNEA, UNSPECIFIED 09/03/2015 WILLA HOANG EITAN M Ot R09. 02 HYPOXEMIA 09/03/2015 WILLA HOANG EITAN M Ot E11. 9 TYPE 2 DIABETES MELLITUS WITHOUT COMPLIC 09/03/2015 EITAN CROUCH DO Ot R09. 02 HYPOXEMIA 09/03/2015 SABIHA ESCALONA Ot D64.9 ANEMIA, UNSPECIFIED 09/03/2015 SABIHA ESCALONA Ot R06.02 SHORTNESS OF BREATH 09/03/2015 SABIHA ESCALONA Ot R20.2 PARESTHESIA OF SKIN 09/03/2015 SABIHA ESCALONA Ot R53.1 WEAKNESS 09/03/2015 SABIHA ESCALONA Ot R63.0 ANOREXIA 09/03/2015 SABIHA ESCALONA Ot R63.4 ABNORMAL WEIGHT LOSS 09/03/2015 SABIHA ESCALONA Ot R68.83 CHILLS (WITHOUT FEVER) 09/03/2015 SABIHA ESCALONA Ot Z87.891 PERSONAL HISTORY OF NICOTINE DEPENDENCE 09/03/2015 EITAN CROUCH DO Ot E66. 9 OBESITY, UNSPECIFIED 09/03/2015 EITAN CROUCH DO Ot R06. 00 DYSPNEA, UNSPECIFIED 09/03/2015 EITAN CROUCH DO Ot R09. 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 09/03/2015 ELVER REYES FACC, ALI [facility] CCDS Ot I50.21 ACUTE SYSTOLIC (CONGESTIVE) HEART FAILUR 09/03/2015 ELVER REYES FAC, [facility] Ot N18.3 CHRONIC KIDNEY DISEASE, STAGE 3 (MODERAT 09/03/2015 DAYRON REYES, CARLOS ENRIQUE A Ot N17.9 ACUTE KIDNEY FAILURE, UNSPECIFIED 09/03/2015 Ot D64.9 ANEM IA, UNSPECIFIED 09/03/2015 Ot E11.29 TYP E 2 DIABETES MELLITUS W OTH DIABETIC 09/03/2015 Ot N18.3 WELL DRILL OPERATOR ROTARY DRILL RAJESH KIDNEY DISEASE, STAGE 3 (MODERAT 09/03/2015 Ot R60.9 REDDY A, UNSPECIFIED 09/03/2015 SARAHI MARION ECMO SPECIALIST Ot D63.1 ANEMIA IN CHRONIC KIDNEY DISEASE 09/03/2015 SARAHI MARION ECMO SPECIALIST Ot N18.3 CHRONIC KIDNEY DISEASE, STAGE 3 (MODERAT 09/03/2015 SARAHI MARION ECMO SPECIALIST Ot 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 09/03/2015 SARAHI MARION ECMO SPECIALIST Ot Z87.891 PERSONAL HISTORY OF NICOTINE DEPENDENCE 09/03/2015 CHELI ANTON APRN Ot R06.00 DYSPNEA, UNSPECIFIED 09/05/2015 RYAN REYES, SARI Andrea Ot M25.512 PAIN IN LEFT SHOULDER 09/05/2015 CHELI ANTON APRN Ot R06.00 DYSPNEA, UNSPECIFIED 09/05/2015 SABIHA ESCALONA N Ot D64.9 ANEMIA, UNSPECIFIED 09/05/2015 SABIHA ESCALONA N Ot R06.02 SHORTNESS OF BREATH 09/05/2015 SABIHA ESCALONA Ot R20.2 PARESTHESIA OF SKIN 09/05/2015 SABIHA ESCALONA N Ot R53.1 WEAKNESS 09/05/2015 SABIHA ESCALONA N Ot R63.0 ANOREXIA 09/05/2015 SABIHA ESCALONA Ot R63.4 ABNORMAL WEIGHT LOSS 09/05/2015 SABIHA ESCALONA N Ot R68.83 CHILLS (WITHOUT FEVER) 09/05/2015 SABIHA ESCALONA Ot Z87.891 PERSONAL HISTORY OF NICOTINE DEPENDENCE 09/09/2015 SABIHA ESCALONA N Ot D64.9 ANEMIA, UNSPECIFIED 09/09/2015 SABIHA ESCALONA N Ot R06.02 SHORTNESS OF BREATH 09/09/2015 SABIHA ESCALONA N Ot R20.2 PARESTHESIA OF SKIN 09/09/2015 SABIHA ESCALONA N Ot R53.1 WEAKNESS 09/09/2015 SABIHA ESCALONA N Ot R63.0 ANOREXIA 09/09/2015 SABIHA ESCALONA N Ot R63.4 ABNORMAL WEIGHT LOSS 09/09/2015 SABIHA ESCALONA N Ot R68.83 CHILLS (WITHOUT FEVER) 09/09/2015 SABIHA ESCALONA Ot Z87.891 PERSONAL HISTORY OF NICOTINE DEPENDENCE 09/09/2015 CHELI ANTON APRN Ot R06.00 DYSPNEA, UNSPECIFIED 09/10/2015 SARI DAVIS MD Ot M25.512 PAIN IN LEFT SHOULDER 09/10/2015 SARI DAVIS MD Ot M25.512 PAIN IN LEFT SHOULDER 09/10/2015 CHELI ANTON APRN Ot R06.00 DYSPNEA, UNSPECIFIED 09/10/2015 SARI DAVIS MD Ot M25.512 PAIN IN LEFT SHOULDER 09/17/2015 CHELI ANTON APRN Ot R06.00 DYSPNEA, UNSPECIFIED 09/23/2015 SABIHA ESCALONA Ot D63.1 ANEMIA IN CHRONIC KIDNEY DISEASE 09/23/2015 SABIHA ESCALONA N Ot N18.3 CHRONIC KIDNEY DISEASE, STAGE 3 (MODERAT 09/23/2015 SABIHA ESCALONA N Ot Z79.899 OTHER [facility] (CURRENT) DRUG THERAPY 09/24/2015 SARI DAVIS MD Ot M25.512 PAIN IN LEFT SHOULDER 09/26/2015 CARLOS ENRIQUE PADGETT MD Ot E87.5 HYPERKALEMIA 09/26/2015 CARLOS ENRIQUE PADGETT MD Ot N17.9 ACUTE KIDNEY FAILURE, UNSPECIFIED 09/26/2015 CARLOS ENRIQUE PADGETT MD Ot N18.9 CHRONIC KIDNEY DISEASE, UNSPECIFIED 09/26/2015 CARLOS ENRIQUE PADGETT MD Ot R60.9 EDEMA, UNSPECIFIED 09/26/2015 PADGETT MD, TALAL A Ot R80.9 PROTEINURIA, UNSPECIFIED 10/07/2015 RYAN REYES, SARI A Ot M25.512 PAIN IN LEFT SHOULDER 10/08/2015 DAYRON REYES, TALAL A Ot E87.5 HYPERKALEMIA 10/08/2015 DAYRON REYES, TALAL A Ot N17.9 ACUTE KIDNEY FAILURE, UNSPECIFIED 10/08/2015 DAYRON REYES, LISETAL A Ot N18.9 CHRONIC KIDNEY DISEASE, UNSPECIFIED 10/08/2015 DAYRON REYES, LISETAL A Ot R60.9 EDEMA, UNSPECIFIED 10/08/2015 DAYRON REYES, LISETAL A Ot R80.9 PROTEINURIA, UNSPECIFIED 10/22/2015 SARAHI MARION ECMO SPECIALIST Ot D63.1 ANEMIA IN CHRONIC KIDNEY DISEASE 10/22/2015 SARAHI MARION ECMO SPECIALIST Ot N18.3 CHRONIC KIDNEY DISEASE, STAGE 3 (MODERAT 10/22/2015 SARAHI MARION ECMO SPECIALIST Ot 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 10/22/2015 LISET PADGETT MDAL A Ot E87.5 HYPERKALEMIA 10/22/2015 LISET PADGETT MDAL A Ot N17.9 ACUTE KIDNEY FAILURE, UNSPECIFIED 10/22/2015 LISET PADGETT MDAL A Ot R60.9 EDEMA, UNSPECIFIED 10/22/2015 DAYRON REYES, LISETAL A Ot R80.9 PROTEINURIA, UNSPECIFIED 10/23/2015 DAYRON REYES, TALAL A Ot E87.5 HYPERKALEMIA 10/23/2015 LISET PADGETT MDAL A Ot N17.9 ACUTE KIDNEY FAILURE, UNSPECIFIED 10/23/2015 LISET PADGETT MDAL A Ot R60.9 EDEMA, UNSPECIFIED 10/23/2015 DAYRON REYES, LISETAL A Ot R80.9 PROTEINURIA, UNSPECIFIED 10/23/2015 DAYRON REYES TALAL A Ot E87.5 HYPERKALEMIA 10/23/2015 LISET PADGETT MDAL A Ot N17.9 ACUTE KIDNEY FAILURE, UNSPECIFIED 10/23/2015 DAYRON REYES, LISETAL A Ot R60.9 EDEMA, UNSPECIFIED 10/23/2015 DAYRON REYES, TALAL A Ot R80.9 PROTEINURIA, UNSPECIFIED 10/24/2015 DAYRON REYES TALAL A Ot E87.5 HYPERKALEMIA 10/24/2015 CARLOS ENRIQUE PADGETT MD Ot N17.9 ACUTE KIDNEY FAILURE, UNSPECIFIED 10/24/2015 CARLOS ENRIQUE PADGETT MD Ot R60.9 EDEMA, UNSPECIFIED 10/24/2015 CARLOS ENRIQUE PADGETT MD Ot R80.9 PROTEINURIA, UNSPECIFIED 10/30/2015 ELKE ESQUIVEL DO Ot D64.9 ANEMIA, UNSPECIFIED 10/30/2015 SIDNEY ESQUIVEL DOA K Ot E11.9 TYPE 2 DIABETES MELLITUS WITHOUT COMPLIC 10/30/2015 SIDNEY ESQUIVEL DOA K Ot N17.9 ACUTE KIDNEY FAILURE, UNSPECIFIED 10/30/2015 SIDNEY ESQUIVEL DOA K Ot Z79.89 9 OTHER [facility] (CURRENT) DRUG THERAPY 10/30/2015 EITAN CROUCH DO Ot J90 PLEURAL EFFUSION, NOT ELSEWHERE CLASSIFI 10/30/2015 EITAN CROUCH DO Ot R06. 00 DYSPNEA, UNSPECIFIED 10/30/2015 EITAN CROUCH DO Ot R09. 02 HYPOXEMIA 10/30/2015 EITAN CROUCH DO Ot R06. 00 DYSPNEA, UNSPECIFIED 10/30/2015 EITAN CROUCH DO Ot R09. 02 HYPOXEMIA 10/30/2015 EITAN CROUCH DO Ot E11. 9 TYPE 2 DIABETES MELLITUS WITHOUT COMPLIC 10/30/2015 EITAN CROUCH DO Ot R09. 02 HYPOXEMIA 10/30/2015 EITAN CROUCH DO Ot E66. 9 OBESITY, UNSPECIFIED 10/30/2015 EITAN CROUCH DO Ot R06. 00 DYSPNEA, UNSPECIFIED 10/30/2015 EITAN CROUCH DO Ot R09. 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 DRILL 10/30/2015 ELVER REYES FACC, ALI FACP CCDS Ot I50.21 ACUTE SYSTOLIC (CONGESTIVE) HEART FAILUR 10/30/2015 ELVER REYES [facility], ALI [facility] CCDS Ot N18.3 CHRONIC KIDNEY DISEASE, STAGE 3 (MODERAT 10/30/2015 CARLOS ENRIQUE PADGETT MD Ot N17.9 ACUTE KIDNEY FAILURE, UNSPECIFIED 10/30/2015 Ot D64.9 ANEM IA, UNSPECIFIED 10/30/2015 Ot E11.29 TYP E 2 DIABETES MELLITUS W OTH DIABETIC 10/30/2015 Ot N18.3 WELL DRILL OPERATOR ROTARY DRILL RAJESH KIDNEY DISEASE, STAGE 3 (MODERAT 10/30/2015 Ot R60.9 REDDY A, UNSPECIFIED 10/30/2015 SARAHI MARION ECMO SPECIALIST Ot D63.1 ANEMIA IN CHRONIC KIDNEY DISEASE 10/30/2015 SARAHI MARION ECMO SPECIALIST Ot N18.3 CHRONIC KIDNEY DISEASE, STAGE 3 (MODERAT 10/30/2015 SARAHI MARION ECMO SPECIALIST Ot 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 10/30/2015 SARAHI MARION ECMO SPECIALIST Ot Z87.891 PERSONAL HISTORY OF NICOTINE DEPENDENCE 10/30/2015 SARI DAVIS MD Ot M25.512 PAIN IN LEFT SHOULDER 10/30/2015 CHELI ANTON APRN Ot R06.00 DYSPNEA, UNSPECIFIED 10/30/2015 CHELI ANTON APRN Ot R06.00 DYSPNEA, UNSPECIFIED 10/30/2015 SARI DAVIS MD Ot M25.512 PAIN IN LEFT SHOULDER 10/30/2015 SABIHA ESCALONA Ot D63.1 ANEMIA IN CHRONIC KIDNEY DISEASE 10/30/2015 SABIHA ESCALONA Ot N18.3 CHRONIC KIDNEY DISEASE, STAGE 3 (MODERAT 10/30/2015 SABIHA ESCALONA Ot Z79.899 OTHER [facility] (CURRENT) DRUG THERAPY 10/30/2015 CARLOS ENRIQUE PADGETT MD Ot E87.5 HYPERKALEMIA 10/30/2015 CARLOS ENRIQUE PADGETT MD Ot N17.9 ACUTE KIDNEY FAILURE, UNSPECIFIED 10/30/2015 CARLOS ENRIQUE PADGETT MD Ot N18.9 CHRONIC KIDNEY DISEASE, UNSPECIFIED 10/30/2015 CARLOS ENRIQUE PADGETT MD Ot R60.9 EDEMA, UNSPECIFIED 10/30/2015 PADGETT MD, TALAL A Ot R80.9 PROTEINURIA, UNSPECIFIED 10/30/2015 CARLOS MARIONELIAS Kristin ECMO SPECIALIST Ot D63.1 ANEMIA IN CHRONIC KIDNEY DISEASE 10/30/2015 SARAHI MARION ECMO SPECIALIST Ot N18.3 CHRONIC KIDNEY DISEASE, STAGE 3 (MODERAT 10/30/2015 CARLOS MARIONELIAS Kristin ECMO SPECIALIST Ot 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 10/30/2015 LISET PADGETT MDAL A Ot E87.5 HYPERKALEMIA 10/30/2015 LISET PADGETT MDAL A Ot N17.9 ACUTE KIDNEY FAILURE, UNSPECIFIED 10/30/2015 LISET PADGETT MDAL A Ot R60.9 EDEMA, UNSPECIFIED 10/30/2015 LISET PADGETT MDAL A Ot R80.9 PROTEINURIA, UNSPECIFIED 10/30/2015 LISET PADGETT MDAL A Ot E87.5 HYPERKALEMIA 10/30/2015 CARLOS ENRIQUE PADGETT MD A Ot N17.9 ACUTE KIDNEY FAILURE, UNSPECIFIED 10/30/2015 LISET PADGETT MDAL A Ot R60.9 EDEMA, UNSPECIFIED 10/30/2015 LISET PADGETT MDAL A Ot R80.9 PROTEINURIA, UNSPECIFIED 10/30/2015 MONICA HOLCOMB MD Ot S43.432A SUPERIOR GLENOID LABRUM LESION OF LEFT S 10/30/2015 MONICA HOLCOMB MD Ot Z01.818 ENCOUNTER FOR OTHER PREPROCEDURAL EXAMIN 10/30/2015 MONICA HOLCOMB MD Ot Z11.2 ENCOUNTER FOR SCREENING FOR OTHER BACTER 10/31/2015 MONICA HOLCOMB MD Ot S43.432A SUPERIOR GLENOID LABRUM LESION OF LEFT S 10/31/2015 MONICA HOLCOMB MD Ot Z01.818 ENCOUNTER FOR OTHER PREPROCEDURAL EXAMIN 10/31/2015 MONICA HOLCOMB MD Ot Z11.2 ENCOUNTER FOR SCREENING FOR OTHER BACTER 10/31/2015 LISET PADGETT MDAL A Ot E87.5 HYPERKALEMIA 10/31/2015 CARLOS ENRIQUE PADGETT MD A Ot N17.9 ACUTE KIDNEY FAILURE, UNSPECIFIED 10/31/2015 CARLOS ENRIQUE PADGETT MD A Ot R60.9 EDEMA, UNSPECIFIED 10/31/2015 LISET PADGETT MDAL A Ot R80.9 PROTEINURIA, UNSPECIFIED 11/05/2015 MONICA HOLCOMB MD Ot S43.432A SUPERIOR GLENOID LABRUM LESION OF LEFT S 11/05/2015 MONICA HOLCOMB MD Ot Z01.818 ENCOUNTER FOR OTHER PREPROCEDURAL EXAMIN 11/05/2015 MONICA HOLCOMB MD Ot Z11.2 ENCOUNTER FOR SCREENING FOR OTHER BACTER 11/05/2015 MONICA HOLCOMB MD Ot M25.812 OTHER SPECIFIED JOINT DISORDERS, LEFT SH 11/05/2015 MONICA HOLCOMB MD Ot S43.432A SUPERIOR GLENOID LABRUM LESION OF LEFT S 11/06/2015 MONICA HOLCOMB MD Ot M25.812 OTHER SPECIFIED JOINT DISORDERS, LEFT SH 11/06/2015 MONICA HOLCOMB MD Ot S43.432A SUPERIOR GLENOID LABRUM LESION OF LEFT S 11/07/2015 CARLOS ENRIQUE PADGETT MD A Ot E87.5 HYPERKALEMIA 11/07/2015 CARLOS ENRIQUE PADGETT MD A Ot N17.9 ACUTE KIDNEY FAILURE, UNSPECIFIED 11/07/2015 LISET PADGETT MDAL A Ot R60.9 EDEMA, UNSPECIFIED 11/07/2015 CARLOS ENRIQUE PADGETT MD A Ot R80.9 PROTEINURIA, UNSPECIFIED 11/11/2015 MONICA HOLCOMB MD Ot M25.812 OTHER SPECIFIED JOINT DISORDERS, LEFT SH 11/11/2015 MONICA HOLCOMB MD Ot S43.432A SUPERIOR GLENOID LABRUM LESION OF LEFT S 11/18/2015 CARLOS ENRIQUE PADGETT MD A Ot E87.5 HYPERKALEMIA 11/18/2015 CARLOS ENRIQUE PADGETT MD A Ot N17.9 ACUTE KIDNEY FAILURE, UNSPECIFIED 11/18/2015 LISET PADGETT MDAL A Ot R60.9 EDEMA, UNSPECIFIED 11/18/2015 LISET PADGETT MDAL A Ot R80.9 PROTEINURIA, UNSPECIFIED 11/25/2015 SARI DAVIS MD Ot E10.65 TYPE 1 DIABETES MELLITUS WITH HYPERGLYCE 11/25/2015 SARI DAVIS MD Ot E87 .2 ACIDOSIS 11/25/2015 SARI DAVIS MD Ot E87 .5 HYPERKALEMIA 11/25/2015 SARI DAVIS MD Ot F32 .9 MAJOR DEPRESSIVE DISORDER, SINGLE EPISOD 11/25/2015 SARI DAVIS MD Ot I50.43 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 11/25/2015 SARI DAVIS MD Ot K21 .9 GASTRO-ESOPHAGEAL REFLUX DISEASE WITHOUT 11/25/2015 SARI DAVIS MD Ot N18 .4 CHRONIC KIDNEY DISEASE, STAGE 4 (SEVERE) 11/25/2015 SARI DAVIS MD Ot Q23 .1 CONGENITAL INSUFFICIENCY OF AORTIC VALVE 11/25/2015 SARI DAVIS MD Ot Z79 .4 MCC (CURRENT) USE OF INSULIN 11/25/2015 SARI DAVIS MD Ot Z87.891 PERSONAL HISTORY OF NICOTINE DEPENDENCE 11/25/2015 SARI DAVIS MD Ot D64 .9 ANEMIA, UNSPECIFIED 11/25/2015 SARI DAVIS MD Ot E10.21 TYPE 1 DIABETES MELLITUS WITH DIABETIC N 11/25/2015 SARI DAVIS MD Ot E10.65 TYPE 1 DIABETES MELLITUS WITH HYPERGLYCE 11/25/2015 SARI DAVIS MD Ot E87 .2 ACIDOSIS 11/25/2015 SARI DAVIS MD Ot E87 .5 HYPERKALEMIA 11/25/2015 SARI DAVIS MD Ot F32 .9 MAJOR DEPRESSIVE DISORDER, SINGLE EPISOD 11/25/2015 SARI DAVIS MD Ot I50.43 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 11/25/2015 SARI DAVIS MD Ot K21 .9 GASTRO-ESOPHAGEAL REFLUX DISEASE WITHOUT 11/25/2015 SARI DAVIS MD Ot N18 .4 CHRONIC KIDNEY DISEASE, STAGE 4 (SEVERE) 11/25/2015 SARI DAVIS MD Ot Q23 .1 CONGENITAL INSUFFICIENCY OF AORTIC VALVE 11/25/2015 SARI DAVIS MD Ot Z79 .4 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 11/25/2015 SARI DAVIS MD Ot Z87.891 PERSONAL HISTORY OF NICOTINE DEPENDENCE 12/02/2015 CARLOS ENRIQUE PADGETT MD Ot E87.5 HYPERKALEMIA 12/02/2015 CARLOS ENRIQUE PADGETT MD Ot N17.9 ACUTE KIDNEY FAILURE, UNSPECIFIED 12/02/2015 CARLOS ENRIQUE PADGETT MD Ot N18.9 CHRONIC KIDNEY DISEASE, UNSPECIFIED 12/02/2015 CARLOS ENRIQUE PADGETT MD Ot R60.9 EDEMA, UNSPECIFIED 12/02/2015 PADGETT MD, TALAL A Ot R80.9 PROTEINURIA, UNSPECIFIED 12/03/2015 POLA, BOBAN N Ot D63.1 ANEMIA IN CHRONIC KIDNEY DISEASE 12/03/2015 POLA, BOBAN N Ot N18.3 CHRONIC KIDNEY DISEASE, STAGE 3 (MODERAT 12/03/2015 POLA BOBAN N Ot 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 12/05/2015 POLA BOBAN N Ot D63.1 ANEMIA IN CHRONIC KIDNEY DISEASE 12/05/2015 POLA BOBAN N Ot N18.3 CHRONIC KIDNEY DISEASE, STAGE 3 (MODERAT 12/05/2015 POLA BOBAN N Ot Z79.899 OTHER [facility] (CURRENT) DRUG THERAPY 12/05/2015 DAYRON REYES TALAL A Ot E87.5 HYPERKALEMIA 12/05/2015 DAYRON REYES TALAL A Ot N17.9 ACUTE KIDNEY FAILURE, UNSPECIFIED 12/05/2015 DAYRON REYES TALAL A Ot R60.9 EDEMA, UNSPECIFIED 12/05/2015 DAYRON REYES TALAL A Ot R80.9 PROTEINURIA, UNSPECIFIED 01/16/2016 DAYRON REYES, TALAL A Ot E87.5 HYPERKALEMIA 01/16/2016 DAYRON REYES TALAL A Ot N17.9 ACUTE KIDNEY FAILURE, UNSPECIFIED 01/16/2016 DAYRON REYES TALAL A Ot N18.9 CHRONIC KIDNEY DISEASE, UNSPECIFIED 01/16/2016 DAYRON REYES TALAL A Ot R60.9 EDEMA, UNSPECIFIED 01/16/2016 DAYRON REYES TALAL A Ot R80.9 PROTEINURIA, UNSPECIFIED 01/16/2016 SABIHA ESCALONA N Ot D63.1 ANEMIA IN CHRONIC KIDNEY DISEASE 01/16/2016 POLA BOBAN N Ot N18.3 CHRONIC KIDNEY DISEASE, STAGE 3 (MODERAT 01/16/2016 POLA BOBAN N Ot 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 01/22/2016 OLIVIA ROBERTSON BILLING SPECIALIST Ot D63 .1 ANEMIA IN CHRONIC KIDNEY DISEASE 01/22/2016 OLIVIA ROBERTSON BILLING SPECIALIST Ot E11.40 TYPE 2 DIABETES MELLITUS WITH DIABETIC N 01/22/2016 OLIVIA ROBERTSON BILLING SPECIALIST Ot E11.649 TYPE 2 DIABETES MELLITUS WITH HYPOGLYCEM 01/22/2016 ROBERTSONOLIVIA GRAHAM APRN Ot N18 .6 END STAGE RENAL DISEASE 01/22/2016 OLIVIA ROBERTSON BILLING SPECIALIST Ot R61 GENERALIZED HYPERHIDROSIS 01/22/2016 OLIVIA ROBERTSON BILLING SPECIALIST Ot Z79 .4 MCC (CURRENT) USE OF INSULIN 02/09/2016 CARLOS ENRIQUE PADGETT MD Ot E87.5 HYPERKALEMIA 02/09/2016 LISET PADGETT MDAL A Ot N17.9 ACUTE KIDNEY FAILURE, UNSPECIFIED 02/09/2016 CARLOS ENRIQUE PADGETT MD A Ot N18.9 CHRONIC KIDNEY DISEASE, UNSPECIFIED 02/09/2016 CARLOS ENRIQUE PADGETT MD A Ot R60.9 EDEMA, UNSPECIFIED 02/09/2016 CARLOS ENRIQUE PADGETT MD Ot R80.9 PROTEINURIA, UNSPECIFIED 02/09/2016 SABIHA ESCALONA Ot D63.1 ANEMIA IN CHRONIC KIDNEY DISEASE 02/09/2016 SABIHA ESCALONA Ot N18.3 CHRONIC KIDNEY DISEASE, STAGE 3 (MODERAT 02/09/2016 SABIHA ESCALONA Ot Z79.899 OTHER M[facility] (CURRENT) DRUG THERAPY 02/12/2016 ESQUIVEL DO ELKE K Ot D64.9 ANEMIA, UNSPECIFIED 02/12/2016 ESQUIVEL DO ELKE K Ot E11.9 TYPE 2 DIABETES MELLITUS WITHOUT COMPLIC 02/12/2016 ALVIN DO ELKE K Ot N17.9 ACUTE KIDNEY FAILURE, UNSPECIFIED 02/12/2016 ALVIN DO ELKE K Ot Z79.89 9 OTHER CONVEYOR LINE BAKERY WORKER (CURRENT) DRUG THERAPY 02/12/2016 EITAN CROUCH DO Ot J90 PLEURAL EFFUSION, NOT ELSEWHERE CLASSIFI 02/12/2016 EITAN CROUCH DO Ot R06. 00 DYSPNEA, UNSPECIFIED 02/12/2016 EITAN CROUCH DO Ot R09. 02 HYPOXEMIA 02/12/2016 EITAN CROUCH DO Ot R06. 00 DYSPNEA, UNSPECIFIED 02/12/2016 EITAN CROUCH DO Ot R09. 02 HYPOXEMIA 02/12/2016 EITAN CROUCH DO Ot E11. 9 TYPE 2 DIABETES MELLITUS WITHOUT COMPLIC 02/12/2016 EITAN CROUCH DO Ot R09. 02 HYPOXEMIA 02/12/2016 EITAN CROUCH DO Ot E66. 9 OBESITY, UNSPECIFIED 02/12/2016 EITAN CROUCH DO Ot R06. 00 DYSPNEA, UNSPECIFIED 02/12/2016 EITAN CROUCH DO Ot R09. 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 DRILL 02/12/2016 ELVER REYES FAC, ALI FACP CCDS Ot I50.21 ACUTE SYSTOLIC (CONGESTIVE) HEART FAILUR 02/12/2016 ELVER REYES FAC, ALI FACP CCDS Ot N18.3 CHRONIC KIDNEY DISEASE, STAGE 3 (MODERAT 02/12/2016 CARLOS ENRIQUE PADGETT MD Ot N17.9 ACUTE KIDNEY FAILURE, UNSPECIFIED 02/12/2016 Ot D64.9 ANEM IA, UNSPECIFIED 02/12/2016 Ot E11.29 TYP E 2 DIABETES MELLITUS W OTH DIABETIC 02/12/2016 Ot N18.3 WELL DRILL OPERATOR ROTARY DRILL RAJESH KIDNEY DISEASE, STAGE 3 (MODERAT 02/12/2016 Ot R60.9 REDDY A, UNSPECIFIED 02/12/2016 DONI SARAHI Foster ECMO SPECIALIST Ot D63.1 ANEMIA IN CHRONIC KIDNEY DISEASE 02/12/2016 SARAHI MARION rKistin ECMO SPECIALIST Ot N18.3 CHRONIC KIDNEY DISEASE, STAGE 3 (MODERAT 02/12/2016 CARLOS MARIONELIAS S ECMO SPECIALIST Ot 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 02/12/2016 DONI SARAHI S ECMO SPECIALIST Ot Z87.891 PERSONAL HISTORY OF NICOTINE DEPENDENCE 02/12/2016 RYAN REYES, SARI Andrea Ot M25.512 PAIN IN LEFT SHOULDER 02/12/2016 CHELI ANTON BILLING SPECIALIST Ot R06.00 DYSPNEA, UNSPECIFIED 02/12/2016 CHELI ANTON BILLING SPECIALIST Ot R06.00 DYSPNEA, UNSPECIFIED 02/12/2016 SARI DAVIS MD Ot M25.512 PAIN IN LEFT SHOULDER 02/12/2016 PADGETT MD, TALAL A Ot E87.5 HYPERKALEMIA 02/12/2016 DAYRON REYES TALAL A Ot N17.9 ACUTE KIDNEY FAILURE, UNSPECIFIED 02/12/2016 DAYRON REYES TALAL A Ot N18.9 CHRONIC KIDNEY DISEASE, UNSPECIFIED 02/12/2016 LISET PADGETT MDAL A Ot R60.9 EDEMA, UNSPECIFIED 02/12/2016 LISET PADGETT MDAL A Ot R80.9 PROTEINURIA, UNSPECIFIED 02/12/2016 SARAHI MARION ECMO SPECIALIST Ot D63.1 ANEMIA IN CHRONIC KIDNEY DISEASE 02/12/2016 SARAHI MARION ECMO SPECIALIST Ot N18.3 CHRONIC KIDNEY DISEASE, STAGE 3 (MODERAT 02/12/2016 SARAHI MARION ECMO SPECIALIST Ot Z79.899 OTHER MCC (CURRENT) DRUG THERAPY 02/12/2016 LISET PADGETT MDAL A Ot E87.5 HYPERKALEMIA 02/12/2016 LISET PADGETT MDAL A Ot N17.9 ACUTE KIDNEY FAILURE, UNSPECIFIED 02/12/2016 LISET PADGETT MDAL A Ot R60.9 EDEMA, UNSPECIFIED 02/12/2016 DAYRON REYES TALAL A Ot R80.9 PROTEINURIA, UNSPECIFIED 02/12/2016 DAYRON REYES TALAL A Ot E87.5 HYPERKALEMIA 02/12/2016 LISET PADGETT MDAL A Ot N17.9 ACUTE KIDNEY FAILURE, UNSPECIFIED 02/12/2016 LISET PADGETT MDAL A Ot R60.9 EDEMA, UNSPECIFIED 02/12/2016 LISET PADGETT MDAL A Ot R80.9 PROTEINURIA, UNSPECIFIED 02/12/2016 DAYRON REYES TALAL A Ot E87.5 HYPERKALEMIA 02/12/2016 LISET PADGETT MDAL A Ot N17.9 ACUTE KIDNEY FAILURE, UNSPECIFIED 02/12/2016 LISET PADGETT MDAL A Ot R60.9 EDEMA, UNSPECIFIED 02/12/2016 DAYRON REYES TALAL A Ot R80.9 PROTEINURIA, UNSPECIFIED 02/12/2016 SABIHA ESCALONA Ot D63.1 ANEMIA IN CHRONIC KIDNEY DISEASE 02/12/2016 SABIHA ESCALONA N Ot N18.3 CHRONIC KIDNEY DISEASE, STAGE 3 (MODERAT 02/12/2016 SABIHA ESCALONA Ot Z79.899 OTHER MCC (CURRENT) DRUG THERAPY 02/13/2016 SABIHA ESCALONA N Ot D63.1 ANEMIA IN CHRONIC KIDNEY DISEASE 02/13/2016 SABIHA ESCALONA N Ot N18.3 CHRONIC KIDNEY DISEASE, STAGE 3 (MODERAT 02/13/2016 SABIHA ESCALONA N Ot 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 02/13/2016 DAYRON REYES, LISETAL A Ot E87.5 HYPERKALEMIA 02/13/2016 DAYRON REYES TALAL A Ot N17.9 ACUTE KIDNEY FAILURE, UNSPECIFIED 02/13/2016 DAYRON REYES TALAL A Ot N18.9 CHRONIC KIDNEY DISEASE, UNSPECIFIED 02/13/2016 DAYRON REYES TALAL A Ot R60.9 EDEMA, UNSPECIFIED 02/13/2016 DAYRON REYES, TALAL A Ot R80.9 PROTEINURIA, UNSPECIFIED 02/20/2016 DAYRON REYES TALAL A Ot E87.5 HYPERKALEMIA 02/20/2016 LISET PADGETT MDAL A Ot N17.9 ACUTE KIDNEY FAILURE, UNSPECIFIED 02/20/2016 DAYRON REYES TALAL A Ot N18.9 CHRONIC KIDNEY DISEASE, UNSPECIFIED 02/20/2016 DAYRON REYES TALAL A Ot R60.9 EDEMA, UNSPECIFIED 02/20/2016 DAYRON REYES TALAL A Ot R80.9 PROTEINURIA, UNSPECIFIED 02/20/2016 DAYRON REYES TALAL A Ot E87.5 HYPERKALEMIA 02/20/2016 LISET PADGETT MDAL A Ot N17.9 ACUTE KIDNEY FAILURE, UNSPECIFIED 02/20/2016 DAYRON REYES TALAL A Ot N18.9 CHRONIC KIDNEY DISEASE, UNSPECIFIED 02/20/2016 DAYRON REYES TALAL A Ot R60.9 EDEMA, UNSPECIFIED 02/20/2016 DAYRON REYES, TALAL A Ot R80.9 PROTEINURIA, UNSPECIFIED 02/20/2016 DAYRON REYES, TALAL A Ot E87.5 HYPERKALEMIA 02/20/2016 DAYRON REYES TALAL A Ot N17.9 ACUTE KIDNEY FAILURE, UNSPECIFIED 02/20/2016 LISET PADGETT MDAL A Ot N18.9 CHRONIC KIDNEY DISEASE, UNSPECIFIED 02/20/2016 DAYRON REYES TALAL A Ot R60.9 EDEMA, UNSPECIFIED 02/20/2016 CARLOS ENRIQUE PADGETT MD Ot R80.9 PROTEINURIA, UNSPECIFIED 03/22/2016 SABIHA ESCALONA Ot D63.1 ANEMIA IN CHRONIC KIDNEY DISEASE 03/22/2016 SABIHA ESCALONA Ot N18.3 CHRONIC KIDNEY DISEASE, STAGE 3 (MODERAT 03/22/2016 SABIHA ESCALONA Ot 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 03/22/2016 CARLOS ENRIQUE PADGETT MD Ot E87.5 HYPERKALEMIA 03/22/2016 CARLOS ENRIQUE PADGETT MD Ot N17.9 ACUTE KIDNEY FAILURE, UNSPECIFIED 03/22/2016 CARLOS ENRIQUE PADGETT MD Ot N18.9 CHRONIC KIDNEY DISEASE, UNSPECIFIED 03/22/2016 CARLOS ENRIQUE PADGETT MD Ot R60.9 EDEMA, UNSPECIFIED 03/22/2016 CARLOS ENRIQUE PADGETT MD Ot R80.9 PROTEINURIA, UNSPECIFIED 04/19/2016 JERRY DO, ALYSIA K Ot E11.649 TYPE 2 DIABETES MELLITUS WITH HYPOGLYCEM 04/19/2016 JERRY DO, ALYSIA K Ot I12.0 HYP CHR KIDNEY DISEASE W STAGE 5 CHR KID 04/19/2016 JERRY DO, ALYSIA K Ot N18.6 END STAGE RENAL DISEASE 04/19/2016 JERRY DO, ALYSIA K Ot R56.9 UNSPECIFIED CONVULSIONS 04/19/2016 JERRY DO, ALYSIA K Ot Z79.4 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 04/19/2016 JERRY DO, ALYSIA K Ot Z87.891 PERSONAL HISTORY OF NICOTINE DEPENDENCE 04/19/2016 JERRY DO ALYSIA K Ot Z99.2 DEPENDENCE ON RENAL DIALYSIS 04/20/2016 SABIHA ESCALONA Ot D63.1 ANEMIA IN CHRONIC KIDNEY DISEASE 04/20/2016 SABIHA ESCALONA Ot N18.3 CHRONIC KIDNEY DISEASE, STAGE 3 (MODERAT 04/20/2016 SABIHA ESCALONA Ot Z79.899 OTHER M[facility] (CURRENT) DRUG THERAPY 04/20/2016 CARLOS ENRIQUE PADGETT MD Ot E87.5 HYPERKALEMIA 04/20/2016 CARLOS ENRIQUE PADGETT MD Ot N17.9 ACUTE KIDNEY FAILURE, UNSPECIFIED 04/20/2016 CARLOS ENRIQUE PADGETT MD Ot N18.9 CHRONIC KIDNEY DISEASE, UNSPECIFIED 04/20/2016 CARLOS ENRIQUE PADGETT MD Ot R60.9 EDEMA, UNSPECIFIED 04/20/2016 CARLOS ENRIQUE PADGETT MD Ot R80.9 PROTEINURIA, UNSPECIFIED 04/21/2016 JERRY HERO HOANGA K Ot E11.649 TYPE 2 DIABETES MELLITUS WITH HYPOGLYCEM 04/21/2016 JERRY , ALYSIA K Ot I12.0 HYP CHR KIDNEY DISEASE W STAGE 5 CHR KID 04/21/2016 JERRY DO ALYSIA K Ot N18.6 END STAGE RENAL DISEASE 04/21/2016 JERRY , ALYSIA K Ot R56.9 UNSPECIFIED CONVULSIONS 04/21/2016 JERRY DO ALYSIA K Ot Z79.4 MCC (CURRENT) USE OF INSULIN 04/21/2016 JERRY DO ALYSIA K Ot Z87.891 PERSONAL HISTORY OF NICOTINE DEPENDENCE 04/21/2016 JERRY HERO HOANGA K Ot Z99.2 DEPENDENCE ON RENAL DIALYSIS 05/06/2016 ALVIN HOANG ELKE K Ot D64.9 ANEMIA, UNSPECIFIED 05/06/2016 ALVIN HOANG ELKE K Ot E11.9 TYPE 2 DIABETES MELLITUS WITHOUT COMPLIC 05/06/2016 ESQUIVEL DO ELKE K Ot N17.9 ACUTE KIDNEY FAILURE, UNSPECIFIED 05/06/2016 ESQUIVEL ELKE K Ot Z79.89 9 OTHER CONVEYOR LINE BAKERY WORKER (CURRENT) DRUG THERAPY 05/06/2016 ETIAN CROUCH DO Ot J90 PLEURAL EFFUSION, NOT ELSEWHERE CLASSIFI 05/06/2016 EITAN CROUCH DO Ot R06. 00 DYSPNEA, UNSPECIFIED 05/06/2016 EITAN CROUCH DO Ot R09. 02 HYPOXEMIA 05/06/2016 EITAN CROUCH DO Ot R06. 00 DYSPNEA, UNSPECIFIED 05/06/2016 EITAN CROUCH DO Ot R09. 02 HYPOXEMIA 05/06/2016 EITAN CROUCH DO Ot E11. 9 TYPE 2 DIABETES MELLITUS WITHOUT COMPLIC 05/06/2016 EITAN CROUCH DO Ot R09. 02 HYPOXEMIA 05/06/2016 EITAN CROUCH DO Ot E66. 9 OBESITY, UNSPECIFIED 05/06/2016 EITAN CROUCH DO Ot R06. 00 DYSPNEA, UNSPECIFIED 05/06/2016 EITAN CROUCH DO Ot R09. 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 05/06/2016 ELVER REYES FAC, ALI FACP CCDS Ot I50.21 ACUTE SYSTOLIC (CONGESTIVE) HEART FAILUR 05/06/2016 ELVER REYES FAC, ALI FACP CCDS Ot N18.3 CHRONIC KIDNEY DISEASE, STAGE 3 (MODERAT 05/06/2016 CARLOS ENRIQUE PADGETT MD Ot N17.9 ACUTE KIDNEY FAILURE, UNSPECIFIED 05/06/2016 Ot D64.9 ANEM IA, UNSPECIFIED 05/06/2016 Ot E11.29 TYP E 2 DIABETES MELLITUS W OTH DIABETIC 05/06/2016 Ot N18.3 WELL DRILL OPERATOR ROTARY DRILL RAJESH KIDNEY DISEASE, STAGE 3 (MODERAT 05/06/2016 Ot R60.9 REDDY A, UNSPECIFIED 05/06/2016 DONI SARAHI Foster ECMO SPECIALIST Ot D63.1 ANEMIA IN CHRONIC KIDNEY DISEASE 05/06/2016 DONI SARAHI Foster ECMO SPECIALIST Ot N18.3 CHRONIC KIDNEY DISEASE, STAGE 3 (MODERAT 05/06/2016 DONI SARAHI Fostre ECMO SPECIALIST Ot Z79.899 OTHER M[facility] (CURRENT) DRUG THERAPY 05/06/2016 DONI SARAHI Foster ECMO SPECIALIST Ot Z87.891 PERSONAL HISTORY OF NICOTINE DEPENDENCE 05/06/2016 SARI DAVIS MD Ot M25.512 PAIN IN LEFT SHOULDER 05/06/2016 CHELI ANTON APRN Ot R06.00 DYSPNEA, UNSPECIFIED 05/06/2016 CHELI ANTON APRN Ot R06.00 DYSPNEA, UNSPECIFIED 05/06/2016 SARI DAVIS MD Ot M25.512 PAIN IN LEFT SHOULDER 05/06/2016 CARLOS ENRIQUE PADGETT MD Ot E87.5 HYPERKALEMIA 05/06/2016 CARLOS ENRIQUE PADGETT MD Ot N17.9 ACUTE KIDNEY FAILURE, UNSPECIFIED 05/06/2016 DAYRON REYES, TALAL A Ot N18.9 CHRONIC KIDNEY DISEASE, UNSPECIFIED 05/06/2016 DAYRON REYES, TALAL A Ot R60.9 EDEMA, UNSPECIFIED 05/06/2016 DAYRON REYES, TALAL A Ot R80.9 PROTEINURIA, UNSPECIFIED 05/06/2016 SARAHI MARION ECMO SPECIALIST Ot D63.1 ANEMIA IN CHRONIC KIDNEY DISEASE 05/06/2016 SARAHI MARION ECMO SPECIALIST Ot N18.3 CHRONIC KIDNEY DISEASE, STAGE 3 (MODERAT 05/06/2016 SARAHI MARION ECMO SPECIALIST Ot 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 05/06/2016 LISET PADGETT MDAL A Ot E87.5 HYPERKALEMIA 05/06/2016 LISET PADGETT MDAL A Ot N17.9 ACUTE KIDNEY FAILURE, UNSPECIFIED 05/06/2016 LISET PADGETT MDAL A Ot R60.9 EDEMA, UNSPECIFIED 05/06/2016 DAYRON REYES, TALAL A Ot R80.9 PROTEINURIA, UNSPECIFIED 05/06/2016 DAYRON REYES, TALAL A Ot E87.5 HYPERKALEMIA 05/06/2016 DAYRON REYES TALAL A Ot N17.9 ACUTE KIDNEY FAILURE, UNSPECIFIED 05/06/2016 DAYRON REYES, TALAL A Ot R60.9 EDEMA, UNSPECIFIED 05/06/2016 DAYRON REYES, TALAL A Ot R80.9 PROTEINURIA, UNSPECIFIED 05/06/2016 DAYRON REYES, TALAL A Ot E87.5 HYPERKALEMIA 05/06/2016 DAYRON REYES TALAL A Ot N17.9 ACUTE KIDNEY FAILURE, UNSPECIFIED 05/06/2016 DAYRON REYES, TALAL A Ot R60.9 EDEMA, UNSPECIFIED 05/06/2016 DAYRON REYES, TALAL A Ot R80.9 PROTEINURIA, UNSPECIFIED 05/06/2016 SABIHA ESCALONA N Ot D63.1 ANEMIA IN CHRONIC KIDNEY DISEASE 05/06/2016 SABIHA ESCALONA N Ot N18.3 CHRONIC KIDNEY DISEASE, STAGE 3 (MODERAT 05/06/2016 SABIHA ESCALONA Ot Z79.899 OTHER [facility] (CURRENT) DRUG THERAPY 05/06/2016 LISET PADGETT MDAL A Ot E87.5 HYPERKALEMIA 05/06/2016 DAYRON REYES, TALAL A Ot N17.9 ACUTE KIDNEY FAILURE, UNSPECIFIED 05/06/2016 DAYRON REYES, LISETAL A Ot N18.9 CHRONIC KIDNEY DISEASE, UNSPECIFIED 05/06/2016 DAYRON REYES, LISETAL A Ot R60.9 EDEMA, UNSPECIFIED 05/06/2016 DAYRON REYES, LISETAL A Ot R80.9 PROTEINURIA, UNSPECIFIED 05/06/2016 LISET PADGETT MDAL A Ot E87.5 HYPERKALEMIA 05/06/2016 DAYRON REYES, LISETAL A Ot N17.9 ACUTE KIDNEY FAILURE, UNSPECIFIED 05/06/2016 DAYRON REYES, LISETAL A Ot N18.9 CHRONIC KIDNEY DISEASE, UNSPECIFIED 05/06/2016 LISET PADGETT MDAL A Ot R60.9 EDEMA, UNSPECIFIED 05/06/2016 LISET PADGETT MDAL A Ot R80.9 PROTEINURIA, UNSPECIFIED 05/12/2016 SABIHA ESCALONA Ot D63.1 ANEMIA IN CHRONIC KIDNEY DISEASE 05/12/2016 SABIHA ESCALONA Ot N18.3 CHRONIC KIDNEY DISEASE, STAGE 3 (MODERAT 05/12/2016 SABIHA ESCALONA Ot Z79.899 OTHER [facility] (CURRENT) DRUG THERAPY 05/12/2016 LISET PADGETT MDAL A Ot E87.5 HYPERKALEMIA 05/12/2016 LISET PADGETT MDAL A Ot N17.9 ACUTE KIDNEY FAILURE, UNSPECIFIED 05/12/2016 LISET PADGETT MDAL A Ot N18.9 CHRONIC KIDNEY DISEASE, UNSPECIFIED 05/12/2016 LISET PADGETT MDAL A Ot R60.9 EDEMA, UNSPECIFIED 05/12/2016 LISET PADGETT MDAL A Ot R80.9 PROTEINURIA, UNSPECIFIED 05/13/2016 LISET PADGETT MDAL A Ot E87.5 HYPERKALEMIA 05/13/2016 LISET PADGETT MDAL A Ot N17.9 ACUTE KIDNEY FAILURE, UNSPECIFIED 05/13/2016 LISET PADGETT MDAL A Ot N18.9 CHRONIC KIDNEY DISEASE, UNSPECIFIED 05/13/2016 LISET PADGETT MDAL A Ot R60.9 EDEMA, UNSPECIFIED 05/13/2016 LISET PADGETT MDAL A Ot R80.9 PROTEINURIA, UNSPECIFIED 05/17/2016 SABIHA ESCALONA Ot D63.1 ANEMIA IN CHRONIC KIDNEY DISEASE 05/17/2016 POLA BOBDAMARIS N Ot N18.3 CHRONIC KIDNEY DISEASE, STAGE 3 (MODERAT 05/17/2016 SABIHA ESCALONA N Ot Z79.899 OTHER [facility] (CURRENT) DRUG THERAPY 05/22/2016 SABIHA ESCALONA N Ot D63.1 ANEMIA IN CHRONIC KIDNEY DISEASE 05/22/2016 POLA BOBDAMARIS N Ot N18.3 CHRONIC KIDNEY DISEASE, STAGE 3 (MODERAT 05/22/2016 POLA BOBDAMARIS N Ot Z79.899 OTHER [facility] (CURRENT) DRUG THERAPY 05/28/2016 DAYRON REYES, TALAL A Ot E87.5 HYPERKALEMIA 05/28/2016 DAYRON REYES, TALAL A Ot N17.9 ACUTE KIDNEY FAILURE, UNSPECIFIED 05/28/2016 DAYRON REYES, TALAL A Ot N18.9 CHRONIC KIDNEY DISEASE, UNSPECIFIED 05/28/2016 DAYRON REYES, TALAL A Ot R60.9 EDEMA, UNSPECIFIED 05/28/2016 DAYRON REYES, TALAL A Ot R80.9 PROTEINURIA, UNSPECIFIED 05/28/2016 DAYRON REYES, TALAL A Ot E87.5 HYPERKALEMIA 05/28/2016 DAYRON REYES, TALAL A Ot N17.9 ACUTE KIDNEY FAILURE, UNSPECIFIED 05/28/2016 DAYRON REYES, TALAL A Ot N18.9 CHRONIC KIDNEY DISEASE, UNSPECIFIED 05/28/2016 DAYRON REYES, TALAL A Ot R60.9 EDEMA, UNSPECIFIED 05/28/2016 DAYRON REYES, TALAL A Ot R80.9 PROTEINURIA, UNSPECIFIED 05/31/2016 DAYRON REYES, TALAL A Ot E87.5 HYPERKALEMIA 05/31/2016 DAYRON REYES, TALAL A Ot N17.9 ACUTE KIDNEY FAILURE, UNSPECIFIED 05/31/2016 DAYRON REYES, TALAL A Ot N18.9 CHRONIC KIDNEY DISEASE, UNSPECIFIED 05/31/2016 DAYRON REYES, TALAL A Ot R60.9 EDEMA, UNSPECIFIED 05/31/2016 DAYRON REYES, TALAL A Ot R80.9 PROTEINURIA, UNSPECIFIED 06/12/2016 POLASABIHA FLOYD N Ot D63.1 ANEMIA IN CHRONIC KIDNEY DISEASE 06/12/2016 POLA, BOBDAMARIS N Ot N18.3 CHRONIC KIDNEY DISEASE, STAGE 3 (MODERAT 06/12/2016 SABIHA ESCALONA N Ot 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 06/30/2016 SABIHA ESCALONA N Ot D63.1 ANEMIA IN CHRONIC KIDNEY DISEASE 06/30/2016 SABIHA ESCALONA N Ot N18.3 CHRONIC KIDNEY DISEASE, STAGE 3 (MODERAT 06/30/2016 SABIHA ESCALONA N Ot 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 07/02/2016 DAYRON REYES, TALAL A Ot E87.5 HYPERKALEMIA 07/02/2016 DAYRON REYES, TALAL A Ot N17.9 ACUTE KIDNEY FAILURE, UNSPECIFIED 07/02/2016 DAYRON REYES, TALAL A Ot N18.9 CHRONIC KIDNEY DISEASE, UNSPECIFIED 07/02/2016 DAYRON REYES TALAL A Ot R60.9 EDEMA, UNSPECIFIED 07/02/2016 DAYRON REYES TALAL A Ot R80.9 PROTEINURIA, UNSPECIFIED 08/06/2016 SABIHA ESCALONA N Ot D63.1 ANEMIA IN CHRONIC KIDNEY DISEASE 08/06/2016 SABIHA ESCALONA N Ot N18.3 CHRONIC KIDNEY DISEASE, STAGE 3 (MODERAT 08/06/2016 SABIHA ESCALONA N Ot 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 08/12/2016 SABIHA ESCALONA N Ot D63.1 ANEMIA IN CHRONIC KIDNEY DISEASE 08/12/2016 SABIHA ESCALONA N Ot N18.3 CHRONIC KIDNEY DISEASE, STAGE 3 (MODERAT 08/12/2016 SABIHA ESCALONA N Ot 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 09/01/2016 LEISURE, LYNIETA W G62.9 POLYNEUROPATHY, UNSPECIFIED 09/01/2016 LEISURE, LYNIETA W M21.37 1 FOOT DROP, RIGHT FOOT 09/01/2016 LEISURE, LYNIETA W M21.37 2 FOOT DROP, LEFT FOOT 09/01/2016 LEISURE, LYNIETA W R26.2 DIFFICULTY IN WALKING, NOT ELSEWHERE CLASSIFIED 09/01/2016 LEISURE, LYNIETA W R53.1 WEAKNESS 09/01/2016 Brown, Jayy W G62.9 POLYNEUROPATHY, UNSPECIFIED 09/01/2016 Brown, Jayy W M21.371 FOOT DROP, RIGHT FOOT 09/01/2016 Brown, Jayy W M21.372 FOOT DROP, LEFT FOOT 09/01/2016 Jayy Rendon W R26.2 DIFFICULTY IN WALKING, NOT ELSEWHERE CLASSIFIED 09/01/2016 Jayy Rendon W R53.1 WEAKNESS 09/01/2016 Jayy Rendon W G62.9 POLYNEUROPATHY, UNSPECIFIED 09/01/2016 Jayy Rendon W M21.371 FOOT DROP, RIGHT FOOT 09/01/2016 Jayy Rendon W M21.372 FOOT DROP, LEFT FOOT 09/01/2016 Jayy Rendon W R26.2 DIFFICULTY IN WALKING, NOT ELSEWHERE CLASSIFIED 09/01/2016 Jayy Rendon W R53.1 WEAKNESS 09/01/2016 ABOUL-MAGD, DIAZ W 357. 9 UNSPECIFIED INFLAMMATORY AND TOXIC NEUROPATHIES 09/01/2016 ABOUL-MAGD, DIAZ W 719. 7 DIFFICULTY IN WALKING 09/01/2016 ABOUL-MAGD, DIAZ W 736. 79 OTHER ACQUIRED DEFORMITIES OF ANKLE AND FOOT 09/01/2016 ABOUL-MAGD, DIAZ A 780. 79 09/01/2016 ABOUL-MAGD, DIAZ W G62. 9 POLYNEUROPATHY, UNSPECIFIED 09/01/2016 ABOUL-MAGD, DIAZ W M21. 371 FOOT DROP, RIGHT FOOT 09/01/2016 ABOUL-MAGD, DIAZ W M21. 372 FOOT DROP, LEFT FOOT 09/01/2016 ABOUL-MAGD, DIAZ W R26. 2 DIFFICULTY IN WALKING, NOT ELSEWHERE CLASSIFIED 09/01/2016 ABOUL-MAGD, DIAZ A R53. 1 WEAKNESS 09/29/2016 SHARAD HOLLIS Ot M47.816 SPONDYLOSIS W/O MYELOPATHY OR RADICULOPA 10/06/2016 SHARAD HOLLISP Ot M47.816 SPONDYLOSIS W/O MYELOPATHY OR RADICULOPA 10/11/2016 SHARAD HOLLIS Ot M47.816 SPONDYLOSIS W/O MYELOPATHY OR RADICULOPA 06/07/2017 OLIVIA ROBERTSON APRN Ot E11 .9 TYPE 2 DIABETES MELLITUS WITHOUT COMPLIC 06/07/2017 OLIVIA ROBERTSON APRN Ot F32 .9 MAJOR DEPRESSIVE DISORDER, SINGLE EPISOD 06/07/2017 OLIVIA ROBERTSON APRN Ot G47.30 SLEEP APNEA, UNSPECIFIED 06/07/2017 OLIVIA ROBERTSON APRN Ot I10 ESSENTIAL (PRIMARY) HYPERTENSION 06/07/2017 OLIVIA ROBERTSON APRN Ot I25 .2 OLD MYOCARDIAL INFARCTION 06/07/2017 OLIVIA ROBERTSON APRN Ot K21 .9 GASTRO-ESOPHAGEAL REFLUX DISEASE WITHOUT 06/07/2017 OLIVIA ROBERTSON APRN Ot M25.532 PAIN IN LEFT WRIST 06/07/2017 OLIVIA ROBERTSON APRN Ot S63.501A UNSPECIFIED SPRAIN OF RIGHT WRIST, INITI 06/07/2017 OLIVIA ROBERTSON APRN Ot W11.XXXA FALL ON AND FROM LADDER, INITIAL ENCOUNT 06/07/2017 OLIVIA ROBERTSON APRN Ot Z79 .4 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 06/07/2017 OLIVIA ROBERTSON APRN Ot Z87.01 PERSONAL HISTORY OF PNEUMONIA (RECURRENT 06/07/2017 OLIVIA ROBERTSON APRN Ot Z87.19 PERSONAL HISTORY OF OTHER DISEASES OF TH 06/07/2017 OLIVIA ROBERTSON APRN Ot Z87.448 PERSONAL HISTORY OF OTHER DISEASES OF UR 06/07/2017 OLIVIA ROBERTSON APRN Ot Z87.891 PERSONAL HISTORY OF NICOTINE DEPENDENCE 06/07/2017 OLIVIA ROBERTSON APRN Ot Z88 .0 ALLERGY STATUS TO PENICILLIN 06/07/2017 OLIVIA ROBERTSON APRN Ot Z88 .5 ALLERGY STATUS TO NARCOTIC AGENT STATUS 06/07/2017 OLIVIA ROBERTSON APRN Ot Z90.89 ACQUIRED ABSENCE OF OTHER ORGANS 06/07/2017 OLIVIA ROBERTSON APRN Ot Z93 .0 TRACHEOSTOMY STATUS 06/09/2017 OLIVIA ROBERTSON APRN Ot E11 .9 TYPE 2 DIABETES MELLITUS WITHOUT COMPLIC 06/09/2017 OLIVIA ROBERTSON APRN Ot F32 .9 MAJOR DEPRESSIVE DISORDER, SINGLE EPISOD 06/09/2017 OLIVIA ROBERTSON APRN Ot G47.30 SLEEP APNEA, UNSPECIFIED 06/09/2017 OLIVIA ROBERTSON APRN Ot I10 ESSENTIAL (PRIMARY) HYPERTENSION 06/09/2017 OLIVIA ROBERTSON APRN Ot I25 .2 OLD MYOCARDIAL INFARCTION 06/09/2017 OLIVIA ROBERTSON APRN Ot K21 .9 GASTRO-ESOPHAGEAL REFLUX DISEASE WITHOUT 06/09/2017 OLIVIA ROBERTSON APRN Ot M25.532 PAIN IN LEFT WRIST 06/09/2017 OLIVIA ROBERTSON APRN Ot S63.501A UNSPECIFIED SPRAIN OF RIGHT WRIST, INITI 06/09/2017 OLIVIA ROBERTSON APRN Ot W11.XXXA FALL ON AND FROM LADDER, INITIAL ENCOUNT 06/09/2017 OLIVIA ROBERTSON APRN Ot Z79 .4 MCC (CURRENT) USE OF INSULIN 06/09/2017 OLIVIA ROBERTSON APRN Ot Z87.01 PERSONAL HISTORY OF PNEUMONIA (RECURRENT 06/09/2017 OLIVIA ROBERTSON APRN Ot Z87.19 PERSONAL HISTORY OF OTHER DISEASES OF TH 06/09/2017 OLIVIA ROBERTSON APRN Ot Z87.448 PERSONAL HISTORY OF OTHER DISEASES OF UR 06/09/2017 OLIVIA ROBERTSON APRN Ot Z87.891 PERSONAL HISTORY OF NICOTINE DEPENDENCE 06/09/2017 OLIVIA ROBERTSON APRN Ot Z88 .0 ALLERGY STATUS TO PENICILLIN 06/09/2017 OLIVIA ROBERTSON APRN Ot Z88 .5 ALLERGY STATUS TO NARCOTIC AGENT STATUS 06/09/2017 OLIVIA ROBERTSON APRN Ot Z90.89 ACQUIRED ABSENCE OF OTHER ORGANS 06/09/2017 OLIVIA ROBERTSON APRN Ot Z93 .0 TRACHEOSTOMY STATUS 10/16/2017 ROXANNA RENEE MD, Ot E11. 22 TYPE 2 DIABETES MELLITUS W DIABETIC WELL DRILL OPERATOR ROTARY DRILL 10/16/2017 ROXANNA RENEE MD, Ot E11.621 TYPE 2 DIABETES MELLITUS WITH FOOT ULCER 10/16/2017 ROXANNA RENEE MD Ot L03.116 CELLULITIS OF LEFT LOWER LIMB 10/16/2017 ROXANNA RENEE MD, Ot L97.529 NON-PRESSURE CHRONIC ULCER OTH PRT LEFT 10/16/2017 ROXANNA RENEE MD, Ot N18. 6 END STAGE RENAL DISEASE 10/16/2017 ROXANNA RENEE MD, Ot Z79. 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 2 DEPENDENCE ON RENAL DIALYSIS 12/23/2017 Francisco Posadas 585.6 END STAGE RENAL DISEASE 12/23/2017 Francisco Posadas N18.6 END STAGE RENAL DISEASE 12/23/2017 Francisco Posadas V45.11 RENAL DIALYSIS STATUS 12/23/2017 Francisco Posadas Z99.2 DEPENDENCE ON RENAL DIALYSIS 07/26/2018 W 728.87 MUS EPI WEAKNESS (GENERALIZED) 07/26/2018 W M62.81 MUS EPI WEAKNESS (GENERALIZED) 08/04/2018 Francisco Posadas 038.8 OTHER SPECIFIED SEPTICEMIAS 08/04/2018 Francisco Posadas 518.81 ACUTE RESPIRATORY FAILURE 08/04/2018 Francisco Posadas A41.89 OTHER SPECIFIED SEPSIS 08/04/2018 Francisco Posadas J96.90 RESPIRATORY FAILURE, UNSPECIFIED, UNSPECIFIED WHETHER WITH HYPOXIA OR HYPERCAPNIA 08/04/2018 Francisco Posadas 038.8 OTHER SPECIFIED SEPTICEMIAS 08/04/2018 Francisco Posadas 518.81 ACUTE RESPIRATORY FAILURE 08/04/2018 Francisco Posadas A41.89 OTHER SPECIFIED SEPSIS 08/04/2018 Francisco Posadas J96.90 RESPIRATORY FAILURE, UNSPECIFIED, UNSPECIFIED WHETHER WITH HYPOXIA OR HYPERCAPNIA 08/04/2018 Francisco Posadas 038.8 OTHER SPECIFIED SEPTICEMIAS 08/04/2018 Francisco Posadas 038.9 UNSPECIFIED SEPTICEMIA 08/04/2018 Francisco Posadas 518.51 ACUTE RESPIRATORY FAILURE FOLLOWING TRAUMA AND SURGERY 08/04/2018 Francisco Posadas 585.5 CHRONIC KIDNEY DISEASE, STAGE V 08/04/2018 Francisco Posadas 780.60 FEVER, UNSPECIFIED 08/04/2018 Francisco Posadas A41.89 OTHER SPECIFIED SEPSIS 08/04/2018 Francisco Posadas A41.9 SEPSIS, UNSPECIFIED ORGANISM 08/04/2018 Francisco Posadas J96.01 ACUTE RESPIRATORY FAILURE WITH HYPOXIA 08/04/2018 Francisco Posadas N18.5 CHRONIC KIDNEY DISEASE, STAGE 5 08/04/2018 Francisco Posadas R50.9 FEVER, UNSPECIFIED 10/26/2018 CHELI ANTON APRN Ot G47.33 OBSTRUCTIVE SLEEP APNEA (ADULT) (PEDIATR 10/31/2018 CHELI ANTON APRN Ot G47.33 OBSTRUCTIVE SLEEP APNEA (ADULT) (PEDIATR 11/01/2018 CHELI ANTON APRN Ot G47.33 OBSTRUCTIVE SLEEP APNEA (ADULT) (PEDIATR 11/01/2018 CHELI ANTON APRN Ot G47.33 OBSTRUCTIVE SLEEP APNEA (ADULT) (PEDIATR 11/02/2018 CHELI ANTON APRN Ot G47.33 OBSTRUCTIVE SLEEP APNEA (ADULT) (PEDIATR 11/02/2018 CHELI ANTON APRN Ot R09.02 HYPOXEMIA 11/02/2018 ESQUIVEL SIDNEY HOANGA K Ot D64.9 ANEMIA, UNSPECIFIED 11/02/2018 ESQUIVEL DOSIDNEYA K Ot E11.9 TYPE 2 DIABETES MELLITUS WITHOUT COMPLIC 11/02/2018 ESQUIVEL DO ELKE K Ot N17.9 ACUTE KIDNEY FAILURE, UNSPECIFIED 11/02/2018 ESQUIVEL DO ELKE K Ot Z79.89 9 OTHER [facility] (CURRENT) DRUG THERAPY 11/02/2018 EITAN CROUCH DO Ot J90 PLEURAL EFFUSION, NOT ELSEWHERE CLASSIFI 11/02/2018 EITAN CROUCH DO Ot R06. 00 DYSPNEA, UNSPECIFIED 11/02/2018 EITAN CROUCH DO Ot R09. 02 HYPOXEMIA 11/02/2018 EITAN CROUCH DO Ot R06. 00 DYSPNEA, UNSPECIFIED 11/02/2018 EITAN CROUCH DO Ot R09. 02 HYPOXEMIA 11/02/2018 EITAN CROUCH DO Ot E11. 9 TYPE 2 DIABETES MELLITUS WITHOUT COMPLIC 11/02/2018 EITAN CROUCH DO Ot R09. 02 HYPOXEMIA 11/02/2018 EITAN CROUCH DO Ot E66. 9 OBESITY, UNSPECIFIED 11/02/2018 EITAN CROUCH DO Ot R06. 00 DYSPNEA, UNSPECIFIED 11/02/2018 EITAN CROUCH DO Ot R09. 02 HYPOXEMIA 11/02/2018 SARAHI MARION Ot D63.1 ANEMIA IN CHRONIC KIDNEY DISEASE 11/02/2018 SARAHI MARION Ot N18.3 CHRONIC KIDNEY DISEASE, STAGE 3 (MODERAT 11/02/2018 SARAHI MARION Ot 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 11/02/2018 SARAHI MARION Ot Z87.891 PERSONAL HISTORY OF NICOTINE DEPENDENCE 11/02/2018 ELVER REYES FACC, JAIMIE JEFFERY CCDS Ot E11.22 TYPE 2 DIABETES MELLITUS W DIABETIC WELL DRILL OPERATOR ROTARY DRILL 11/02/2018 ELVER REYES FACC, JAIMIE FACP CCDS Ot I50.21 ACUTE SYSTOLIC (CONGESTIVE) HEART FAILUR 11/02/2018 ELVER REYES FAC, JAIMIE FACP CCDS Ot N18.3 CHRONIC KIDNEY DISEASE, STAGE 3 (MODERAT 11/02/2018 DAYRON REYES, CARLOS ENRIQUE A Ot N17.9 ACUTE KIDNEY FAILURE, UNSPECIFIED 11/02/2018 Ot D64.9 ANEM IA, UNSPECIFIED 11/02/2018 Ot E11.29 TYP E 2 DIABETES MELLITUS W OTH DIABETIC 11/02/2018 Ot N18.3 WELL DRILL OPERATOR ROTARY DRILL RAJESH KIDNEY DISEASE, STAGE 3 (MODERAT 11/02/2018 Ot R60.9 REDDY A, UNSPECIFIED 11/02/2018 SARAHI MARIONP Ot D63.1 ANEMIA IN CHRONIC KIDNEY DISEASE 11/02/2018 SARAHI MARIONP Ot N18.3 CHRONIC KIDNEY DISEASE, STAGE 3 (MODERAT 11/02/2018 SARAHI MARIONP Ot Z79.899 OTHER [facility] (CURRENT) DRUG THERAPY 11/02/2018 SARAHI MARIONP Ot Z87.891 PERSONAL HISTORY OF NICOTINE DEPENDENCE 11/02/2018 RYAN REYES, SARI Andrea Ot M25.512 PAIN IN LEFT SHOULDER 11/02/2018 CHELI ANTON APRN Ot R06.00 DYSPNEA, UNSPECIFIED 11/02/2018 CHELI ANTON APRN Ot R06.00 DYSPNEA, UNSPECIFIED 11/02/2018 RYAN REYES, SARI Andrea Ot M25.512 PAIN IN LEFT SHOULDER 11/02/2018 CARLOS ENRIQUE PADGETT MD Ot E87.5 HYPERKALEMIA 11/02/2018 CARLOS ENRIQUE PADGETT MD A Ot N17.9 ACUTE KIDNEY FAILURE, UNSPECIFIED 11/02/2018 CARLOS ENRIQUE PADGETT MD A Ot N18.9 CHRONIC KIDNEY DISEASE, UNSPECIFIED 11/02/2018 CARLOS ENRIQUE PADGETT MD Ot R60.9 EDEMA, UNSPECIFIED 11/02/2018 CARLOS ENRIQUE PADGETT MD Ot R80.9 PROTEINURIA, UNSPECIFIED 11/02/2018 SARAHI MARIONP Ot D63.1 ANEMIA IN CHRONIC KIDNEY DISEASE 11/02/2018 SARAHI MARIONP Ot N18.3 CHRONIC KIDNEY DISEASE, STAGE 3 (MODERAT 11/02/2018 SARAHI MARIONP Ot 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 11/02/2018 DAYRON REYES, TALAL A Ot E87.5 HYPERKALEMIA 11/02/2018 DAYRON REYES, TALAL A Ot N17.9 ACUTE KIDNEY FAILURE, UNSPECIFIED 11/02/2018 DAYRON REYES, TALAL A Ot R60.9 EDEMA, UNSPECIFIED 11/02/2018 DAYRON REYES, TALAL A Ot R80.9 PROTEINURIA, UNSPECIFIED 11/02/2018 DAYRON REYES, TALAL A Ot E87.5 HYPERKALEMIA 11/02/2018 DAYRON REYES, TALAL A Ot N17.9 ACUTE KIDNEY FAILURE, UNSPECIFIED 11/02/2018 DAYRON REYES, TALAL A Ot R60.9 EDEMA, UNSPECIFIED 11/02/2018 DAYRON REYES, TALAL A Ot R80.9 PROTEINURIA, UNSPECIFIED 11/02/2018 DAYRON REYES, TALAL A Ot E87.5 HYPERKALEMIA 11/02/2018 DAYRON REYES, TALAL A Ot N17.9 ACUTE KIDNEY FAILURE, UNSPECIFIED 11/02/2018 DAYRON REYES, TALAL A Ot R60.9 EDEMA, UNSPECIFIED 11/02/2018 DAYRON REYES, TALAL A Ot R80.9 PROTEINURIA, UNSPECIFIED 11/02/2018 SHARAD HOLLIS ECMO SPECIALIST Ot M47.816 SPONDYLOSIS W/O MYELOPATHY OR RADICULOPA 11/03/2018 CHELI ANTON BILLING SPECIALIST Ot G47.33 OBSTRUCTIVE SLEEP APNEA (ADULT) (PEDIATR 11/03/2018 CHELI ANTON BILLING SPECIALIST Ot R09.02 HYPOXEMIA 12/11/2018 CHELI ANTON BILLING SPECIALIST Ot G47.33 OBSTRUCTIVE SLEEP APNEA (ADULT) (PEDIATR 12/11/2018 CHELI ANTON BILLING SPECIALIST Ot G47.36 SLEEP RELATED HYPOVENTILATION IN CONDITI 12/11/2018 CHELI ANTON BILLING SPECIALIST Ot J98.4 OTHER DISORDERS OF LUNG 12/11/2018 CHELI ANTON BILLING SPECIALIST Ot N18.6 END STAGE RENAL DISEASE 12/13/2018 CHELI ANTON BILLING SPECIALIST Ot G47.33 OBSTRUCTIVE SLEEP APNEA (ADULT) (PEDIATR 12/13/2018 CHELI ANTON BILLING SPECIALIST Ot G47.36 SLEEP RELATED HYPOVENTILATION IN CONDITI 12/13/2018 CHELI ANTON BILLING SPECIALIST Ot J98.4 OTHER DISORDERS OF LUNG 12/13/2018 CHELI ANTON BILLING SPECIALIST Ot N18.6 END STAGE RENAL DISEASE 12/13/2018 CHELI ANTON BILLING SPECIALIST Ot G47.33 OBSTRUCTIVE SLEEP APNEA (ADULT) (PEDIATR 12/13/2018 DESEANJENNIE HDZINE E BILLING SPECIALIST Ot G47.36 SLEEP RELATED HYPOVENTILATION IN CONDITI 12/13/2018 JENNIE ANTONINE E BILLING SPECIALIST Ot J98.4 OTHER DISORDERS OF LUNG 12/13/2018 DESEAN, CEHLI E BILLING SPECIALIST Ot N18.6 END STAGE RENAL DISEASE 12/28/2018 DESEANJENNIE HDZINE E BILLING SPECIALIST Ot G47.33 OBSTRUCTIVE SLEEP APNEA (ADULT) (PEDIATR 12/28/2018 DESEANJENNIE HDZINE E BILLING SPECIALIST Ot G47.36 SLEEP RELATED HYPOVENTILATION IN CONDITI 12/28/2018 CHELI ANTON BILLING SPECIALIST Ot J98.4 OTHER DISORDERS OF LUNG 12/28/2018 CHELI ANTON E BILLING SPECIALIST Ot N18.6 END STAGE RENAL DISEASE 05/22/2019 LEISURE, VALERI Burt 883.0 OPEN WOUND OF FINGERS, WITHOUT MENTION OF COMPLICATION 05/22/2019 LEISURE, VALERI Burt 883.1 OPEN WOUND OF FINGERS, COMPLICATED 05/22/2019 LEISURE, VALERI Burt A41.9 SEPSIS, UNSPECIFIED ORGANISM 05/22/2019 LEISURE, VALERI Burt J96.01 ACUTE RESPIRATORY FAILURE WITH HYPOXIA 05/22/2019 LEISURE, VALERI Burt M62.81 MUSCLE WEAKNESS (GENERALIZED) 05/22/2019 LEISURE, VALERI W N18.5 CHRONIC KIDNEY DISEASE, STAGE 5 05/22/2019 LEISURE, JIMIA W N18.6 END STAGE RENAL DISEASE 05/22/2019 LEISURE, VALERI Burt R50.9 FEVER, UNSPECIFIED 05/22/2019 LEISURE, VALERI Burt S61.01 1A LACERATION W/O FB OF RIGHT THUMB W/O DAMAGE TO NAIL, INIT 05/22/2019 LEISURE, VALERI Burt S61.01 9D LACERATION WITHOUT FOREIGN BODY OF UNSPECIFIED THUMB WITHOUT DAMAGE TO NAIL, SUBSEQUENT ENCOUNTER 05/22/2019 LEISURE, VALERI Burt Z99.2 DEPENDENCE ON RENAL DIALYSIS 05/22/2019 LEISURE, LYNIETA W 883.0 OPEN WOUND OF FINGERS, WITHOUT MENTION OF COMPLICATION 05/22/2019 LEISURE, VALERI Burt S61.01 9D LACERATION WITHOUT FOREIGN BODY OF UNSPECIFIED THUMB WITHOUT DAMAGE TO NAIL, SUBSEQUENT ENCOUNTER 05/22/2019 VALERI MIRANDA 883.0 OPEN WOUND OF FINGERS, WITHOUT MENTION OF COMPLICATION 05/22/2019 LEISUREVALERI S61.01 9D LACERATION WITHOUT FOREIGN BODY OF UNSPECIFIED THUMB WITHOUT DAMAGE TO NAIL, SUBSEQUENT ENCOUNTER 07/11/2019 AD HER MD Ot Z01.818 ENCOUNTER FOR OTHER PREPROCEDURAL EXAMIN 07/24/2019 CHELI ANTON APRN Ot R06.00 DYSPNEA, UNSPECIFIED 07/24/2019 CHELI ANTON APRN Ot R91.8 OTHER NONSPECIFIC ABNORMAL FINDING OF MARY 07/26/2019 Jayy Rendon W 279.9 UNSPECIFIED DISORDER OF IMMUNE MECHANISM 07/26/2019 Jayy Rendon W A41.9 SEPSIS, UNSPECIFIED ORGANISM 07/26/2019 Jayy Rendon W 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, UNSPECIFIED 07/26/2019 Jayy Rendon W J96.01 ACUTE RESPIRATORY FAILURE WITH HYPOXIA 07/26/2019 Jayy Rendon W M62.81 MUSCLE WEAKNESS (GENERALIZED) 07/26/2019 JusticeJayy W N18.5 CHRONIC KIDNEY DISEASE, STAGE 5 07/26/2019 Jayy Rendon W N18.6 END STAGE RENAL DISEASE 07/26/2019 Jayy Rendon W R50.9 FEVER, UNSPECIFIED 07/26/2019 Jayy Rendon W S61.019D LACERATION W/O FOREIGN BODY OF THMB W/O DAMAGE TO NAIL, SUBS 07/26/2019 JusticeJayy W V42.0 KIDNEY REPLACED BY TRANSPLANT 07/26/2019 JusticeHenrryJayy W V58.69 LONG- TERM (CURRENT) USE OF OTHER MEDICATIONS 07/26/2019 Justice Jayy W Z79.899 OTHER [facility] (CURRENT) DRUG THERAPY 07/26/2019 Justice Jayy W Z94.0 KIDNEY TRANSPLANT STATUS 07/26/2019 Justice Jayy W Z99.2 DEPENDENCE ON RENAL DIALYSIS 08/01/2019 CHELI ANTON APRN Ot G47.33 OBSTRUCTIVE SLEEP APNEA (ADULT) (PEDIATR 08/01/2019 DESEAN, CHELI E BILLING SPECIALIST Ot G47.36 SLEEP RELATED HYPOVENTILATION IN CONDITI 08/01/2019 CHELI ANTON BILLING SPECIALIST Ot J98.4 OTHER DISORDERS OF LUNG 08/01/2019 CHELI ANTON BILLING SPECIALIST Ot R06.00 DYSPNEA, UNSPECIFIED 08/01/2019 CHELI ANTON BILLING SPECIALIST Ot Z94.0 KIDNEY TRANSPLANT STATUS 08/02/2019 Jayy Rendon W 279.9 UNSPECIFIED DISORDER OF IMMUNE MECHANISM 08/02/2019 Jayy Rendon W A41.9 SEPSIS, UNSPECIFIED ORGANISM 08/02/2019 Jayy Rendon W 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, UNSPECIFIED 08/02/2019 Jayy Rnedon W J96.01 ACUTE RESPIRATORY FAILURE WITH HYPOXIA 08/02/2019 Jayy Rendon W M62.81 MUSCLE WEAKNESS (GENERALIZED) 08/02/2019 Jayy Rendon W N18.5 CHRONIC KIDNEY DISEASE, STAGE 5 08/02/2019 Jayy Rendon W N18.6 END STAGE RENAL DISEASE 08/02/2019 Jayy Rendon W R50.9 FEVER, UNSPECIFIED 08/02/2019 Jayy Rendon W S61.019D LACERATION W/O FOREIGN BODY OF THMB W/O DAMAGE TO NAIL, SUBS 08/02/2019 Jayy Rendon W Z99.2 DEPENDENCE ON RENAL DIALYSIS 08/15/2019 CHELI ANTON BILLING SPECIALIST Ot R06.00 DYSPNEA, UNSPECIFIED 08/15/2019 CHELI ANTON BILLING SPECIALIST Ot R91.8 OTHER NONSPECIFIC ABNORMAL FINDING OF MARY 08/16/2019 CHELI ANTON BILLING SPECIALIST Ot G47.33 OBSTRUCTIVE SLEEP APNEA (ADULT) (PEDIATR 08/16/2019 CHELI ANTON BILLING SPECIALIST Ot G47.36 SLEEP RELATED HYPOVENTILATION IN CONDITI 08/16/2019 CHELI ANTON BILLING SPECIALIST Ot J98.4 OTHER DISORDERS OF LUNG 08/16/2019 CHELI ANTON BILLING SPECIALIST Ot R06.00 DYSPNEA, UNSPECIFIED 08/16/2019 CHELI ANTON BILLING SPECIALIST Ot Z94.0 KIDNEY TRANSPLANT STATUS 08/23/2019 CHELI ANTON BILLING SPECIALIST Ot R06.00 DYSPNEA, UNSPECIFIED 08/23/2019 CHELI ANTON BILLING SPECIALIST Ot R91.8 OTHER NONSPECIFIC ABNORMAL FINDING OF MARY 08/23/2019 DESEAN, CHELI E BILLING SPECIALIST Ot G47.33 OBSTRUCTIVE SLEEP APNEA (ADULT) (PEDIATR 08/23/2019 DESEAN, CHELI E BILLING SPECIALIST Ot G47.36 SLEEP RELATED HYPOVENTILATION IN CONDITI 08/23/2019 DESEAN, CHELI E BILLING SPECIALIST Ot J98.4 OTHER DISORDERS OF LUNG 08/23/2019 DESEAN CHELI E BILLING SPECIALIST Ot R06.00 DYSPNEA, UNSPECIFIED 08/23/2019 DESEAN, CHELI E BILLING SPECIALIST Ot Z94.0 KIDNEY TRANSPLANT STATUS 09/11/2019 DESEAN, CHELI E BILLING SPECIALIST Ot R06.00 DYSPNEA, UNSPECIFIED 09/11/2019 DESEAN, CHELI E BILLING SPECIALIST Ot R91.8 OTHER NONSPECIFIC ABNORMAL FINDING OF MARY 09/13/2019 DESEAN, CHELI E BILLING SPECIALIST Ot G47.33 OBSTRUCTIVE SLEEP APNEA (ADULT) (PEDIATR 09/13/2019 DESEAN, CHELI E BILLING SPECIALIST Ot G47.36 SLEEP RELATED HYPOVENTILATION IN CONDITI 09/13/2019 DESEAN, CHELI E BILLING SPECIALIST Ot J98.4 OTHER DISORDERS OF LUNG 09/13/2019 DESEAN CHELI E BILLING SPECIALIST Ot R06.00 DYSPNEA, UNSPECIFIED 09/13/2019 DESEAN, CHELI E BILLING SPECIALIST Ot Z94.0 KIDNEY TRANSPLANT STATUS Procedures Code Description Performed By Per formed On [id number] RE MOVAL OF FEEDING DEVICE FROM STOMACH, 04/18/2015 Results Test Result Range Serum or plasma renal function panel (Na , K, Cl, CO2, BUN, Cr, glucose,Ca, phos, alb) - 12/04/15 11:25 Serum or plasma sodium measurement (moles/volume) 133 mmol/L 135-145 Serum or plasma potassium measurement (moles/volume) 4.6 mmol/L 3.6-5.0 Serum or plasma chloride measurement (moles/volume) 101 mmol/L 98-107 Carbon dioxide 23 mmol/L 21-32 Serum or plasma anion gap determination (moles/volume) 9 mmol/L 5-14 Serum or plasma urea nitrogen measurement (mass/volume ) 88 mg/dL 7-18 Serum or plasma creatinine measurement (mass/volume) 4.26 mg/dL 0.60-1.30 Serum or plasma urea nitrogen/creatinine mass ratio 21 NRG Serum or plasma creatinine measurement w ith calculation of estimated glomerular filtration rate 15 NRG Serum or plasma glucose measurement (mass/volume) 328 mg/dL 70-105 Serum or plasma calcium measurement (mass/volume) 8.8 mg/dL 8.5-10.1 Serum or plasma albumin measurement (mass/volume) 3.4 g/dL 3.2-4.5 Serum or plasma phosphate measurement (mass/volume) 4.7 mg/dL 2.3-4.7 Serum or plasma renal function panel (Na , K, Cl, CO2, BUN, Cr, glucose,Ca, phos, alb) - 12/17/15 11:51 Serum or plasma sodium measurement (moles/volume) 133 mmol/L 135-145 Serum or plasma potassium measurement (moles/volume) 4.2 mmol/L 3.6-5.0 Serum or plasma chloride measurement (moles/volume) 97 mmol/L 98-107 Carbon dioxide 23 mmol/L 21-32 Serum or plasma anion gap determination (moles/volume) 13 mmol/L 5-14 Serum or plasma urea nitrogen measurement (mass/volume ) 116 mg/dL 7-18 Serum or plasma creatinine measurement (mass/volume) 5.66 mg/dL 0.60-1.30 Serum or plasma urea nitrogen/creatinine mass ratio 20 NRG Serum or plasma creatinine measurement w ith calculation of estimated glomerular filtration rate 11 NRG Serum or plasma glucose measurement (mass/volume) 257 mg/dL 70-105 Serum or plasma calcium measurement (mass/volume) 9.2 mg/dL 8.5-10.1 Serum or plasma albumin measurement (mass/volume) 3.1 g/dL 3.2-4.5 Serum or plasma phosphate measurement (mass/volume) 5.4 mg/dL 2.3-4.7 Serum or plasma renal function panel (Na , K, Cl, CO2, BUN, Cr, glucose,Ca, phos, alb) - 01/08/16 12:19 Serum or plasma sodium measurement (moles/volume) 139 mmol/L 135-145 Serum or plasma potassium measurement (moles/volume) 3.5 mmol/L 3.6-5.0 Serum or plasma chloride measurement (moles/volume) 96 mmol/L 98-107 Carbon dioxide 33 mmol/L 21-32 Serum or plasma anion gap determination (moles/volume) 10 mmol/L 5-14 Serum or plasma urea nitrogen measurement (mass/volume ) 16 mg/dL 7-18 Serum or plasma creatinine measurement (mass/volume) 2.71 mg/dL 0.60-1.30 Serum or plasma urea nitrogen/creatinine mass ratio 6 NRG Serum or plasma creatinine measurement w ith calculation of estimated glomerular filtration rate 26 NRG Serum or plasma glucose measurement (mass/volume) 124 mg/dL 70-105 Serum or plasma calcium measurement (mass/volume) 8.5 mg/dL 8.5-10.1 Serum or plasma albumin measurement (mass/volume) 3.2 g/dL 3.2-4.5 Serum or plasma phosphate measurement (mass/volume) 2.5 mg/dL 2.3-4.7 Serum or plasma renal function panel (Na , K, Cl, CO2, BUN, Cr, glucose,Ca, phos, alb) - 01/22/16 13:11 Serum or plasma sodium measurement (moles/volume) 145 mmol/L 135-145 Serum or plasma potassium measurement (moles/volume) 3.0 mmol/L 3.6-5.0 Serum or plasma chloride measurement (moles/volume) 101 mmol/L 98-107 Carbon dioxide 33 mmol/L 21-32 Serum or plasma anion gap determination (moles/volume) 11 mmol/L 5-14 Serum or plasma urea nitrogen measurement (mass/volume ) 17 mg/dL 7-18 Serum or plasma creatinine measurement (mass/volume) 2.88 mg/dL 0.60-1.30 Serum or plasma urea nitrogen/creatinine mass ratio 6 NRG Serum or plasma creatinine measurement w ith calculation of estimated glomerular filtration rate 24 NRG Serum or plasma glucose measurement (mass/volume) 21 mg/dL 70-105 Serum or plasma calcium measurement (mass/volume) 9.0 mg/dL 8.5-10.1 Serum or plasma albumin measurement (mass/volume) 3.7 g/dL 3.2-4.5 Serum or plasma phosphate measurement (mass/volume) 2.9 mg/dL 2.3-4.7 Capillary blood glucose measurement by g lucometer (mass/volume) - 01/22/16 13:40 Capillary blood glucose measurement by glucometer (mas s/volume) 37 mg/dL 70-110 Capillary blood glucose measurement by g lucometer (mass/volume) - 01/22/16 14:50 Capillary blood glucose measurement by glucometer (mas s/volume) 82 mg/dL 70-110 Serum or plasma renal function panel (Na , K, Cl, CO2, BUN, Cr, glucose,Ca, phos, alb) - 01/29/16 13:16 Serum or plasma sodium measurement (moles/volume) 137 mmol/L 135-145 Serum or plasma potassium measurement (moles/volume) 3.4 mmol/L 3.6-5.0 Serum or plasma chloride measurement (moles/volume) 100 mmol/L 98-107 Carbon dioxide 28 mmol/L 21-32 Serum or plasma anion gap determination (moles/volume) 9 mmol/L 5-14 Serum or plasma urea nitrogen measurement (mass/volume ) 23 mg/dL 7-18 Serum or plasma creatinine measurement (mass/volume) 3.23 mg/dL 0.60-1.30 Serum or plasma urea nitrogen/creatinine mass ratio 7 NRG Serum or plasma creatinine measurement w ith calculation of estimated glomerular filtration rate 21 NRG Serum or plasma glucose measurement (mass/volume) 358 mg/dL 70-105 Serum or plasma calcium measurement (mass/volume) 8.5 mg/dL 8.5-10.1 Serum or plasma albumin measurement (mass/volume) 3.5 g/dL 3.2-4.5 Serum or plasma phosphate measurement (mass/volume) 2.4 mg/dL 2.3-4.7 Serum or plasma renal function panel (Na , K, Cl, CO2, BUN, Cr, glucose,Ca, phos, alb) - 02/05/16 08:54 Serum or plasma sodium measurement (moles/volume) 141 mmol/L 135-145 Serum or plasma potassium measurement (moles/volume) 3.2 mmol/L 3.6-5.0 Serum or plasma chloride measurement (moles/volume) 99 mmol/L 98-107 Carbon dioxide 30 mmol/L -32 Serum or plasma anion gap determination (moles/volume) 12 mmol/L 5-14 Serum or plasma urea nitrogen measurement (mass/volume ) 19 mg/dL 7-18 Serum or plasma creatinine measurement (mass/volume) 2.81 mg/dL 0.60-1.30 Serum or plasma urea nitrogen/creatinine mass ratio 7 NRG Serum or plasma creatinine measurement w ith calculation of estimated glomerular filtration rate 25 NRG Serum or plasma glucose measurement (mass/volume) 149 mg/dL 70-105 Serum or plasma calcium measurement (mass/volume) 8.4 mg/dL 8.5-10.1 Serum or plasma albumin measurement (mass/volume) 3.5 g/dL 3.2-4.5 Serum or plasma phosphate measurement (mass/volume) 3.9 mg/dL 2.3-4.7 Serum or plasma renal function panel (Na , K, Cl, CO2, BUN, Cr, glucose,Ca, phos, alb) - 02/19/16 12:20 Serum or plasma sodium measurement (moles/volume) 140 mmol/L 135-145 Serum or plasma potassium measurement (moles/volume) 3.3 mmol/L 3.6-5.0 Serum or plasma chloride measurement (moles/volume) 96 mmol/L 98-107 Carbon dioxide 33 mmol/L 21-32 Serum or plasma anion gap determination (moles/volume) 11 mmol/L 5-14 Serum or plasma urea nitrogen measurement (mass/volume ) 27 mg/dL 7-18 Serum or plasma creatinine measurement (mass/volume) 3.06 mg/dL 0.60-1.30 Serum or plasma urea nitrogen/creatinine mass ratio 9 NRG Serum or plasma creatinine measurement w ith calculation of estimated glomerular filtration rate 22 NRG Serum or plasma glucose measurement (mass/volume) 101 mg/dL 70-105 Serum or plasma calcium measurement (mass/volume) 8.6 mg/dL 8.5-10.1 Serum or plasma albumin measurement (mass/volume) 3.6 g/dL 3.2-4.5 Serum or plasma phosphate measurement (mass/volume) 3.8 mg/dL 2.3-4.7 Serum or plasma renal function panel (Na , K, Cl, CO2, BUN, Cr, glucose,Ca, phos, alb) - 02/26/16 13:29 Serum or plasma sodium measurement (moles/volume) 139 mmol/L 135-145 Serum or plasma potassium measurement (moles/volume) 3.2 mmol/L 3.6-5.0 Serum or plasma chloride measurement (moles/volume) 99 mmol/L 98-107 Carbon dioxide 32 mmol/L 21-32 Serum or plasma anion gap determination (moles/volume) 8 mmol/L 5-14 Serum or plasma urea nitrogen measurement (mass/volume ) 25 mg/dL 7-18 Serum or plasma creatinine measurement (mass/volume) 3.34 mg/dL 0.60-1.30 Serum or plasma urea nitrogen/creatinine mass ratio 7 NRG Serum or plasma creatinine measurement w ith calculation of estimated glomerular filtration rate 20 NRG Serum or plasma glucose measurement (mass/volume) 89 mg/dL 70-105 Serum or plasma calcium measurement (mass/volume) 8.6 mg/dL 8.5-10.1 Serum or plasma albumin measurement (mass/volume) 3.6 g/dL 3.2-4.5 Serum or plasma phosphate measurement (mass/volume) 3.6 mg/dL 2.3-4.7 Serum or plasma renal function panel (Na , K, Cl, CO2, BUN, Cr, glucose,Ca, phos, alb) - 03/11/16 13:01 Serum or plasma sodium measurement (moles/volume) 141 mmol/L 135-145 Serum or plasma potassium measurement (moles/volume) 3.3 mmol/L 3.6-5.0 Serum or plasma chloride measurement (moles/volume) 98 mmol/L 98-107 Carbon dioxide 34 mmol/L 21-32 Serum or plasma anion gap determination (moles/volume) 9 mmol/L 5-14 Serum or plasma urea nitrogen measurement (mass/volume ) 24 mg/dL 7-18 Serum or plasma creatinine measurement (mass/volume) 3.41 mg/dL 0.60-1.30 Serum or plasma urea nitrogen/creatinine mass ratio 7 NRG Serum or plasma creatinine measurement w ith calculation of estimated glomerular filtration rate 20 NRG Serum or plasma glucose measurement (mass/volume) 43 mg/dL 70-105 Serum or plasma calcium measurement (mass/volume) 8.5 mg/dL 8.5-10.1 Serum or plasma albumin measurement (mass/volume) 3.6 g/dL 3.2-4.5 Serum or plasma phosphate measurement (mass/volume) 4.8 mg/dL 2.3-4.7 Serum or plasma renal function panel (Na , K, Cl, CO2, BUN, Cr, glucose,Ca, phos, alb) - 04/15/16 08:56 Serum or plasma sodium measurement (moles/volume) 138 mmol/L 135-145 Serum or plasma potassium measurement (moles/volume) 3.8 mmol/L 3.6-5.0 Serum or plasma chloride measurement (moles/volume) 97 mmol/L 98-107 Carbon dioxide 29 mmol/L 21-32 Serum or plasma anion gap determination (moles/volume) 12 mmol/L 5-14 Serum or plasma urea nitrogen measurement (mass/volume ) 36 mg/dL 7-18 Serum or plasma creatinine measurement (mass/volume) 4.64 mg/dL 0.60-1.30 Serum or plasma urea nitrogen/creatinine mass ratio 8 NRG Serum or plasma creatinine measurement w ith calculation of estimated glomerular filtration rate 14 NRG Serum or plasma glucose measurement (mass/volume) 395 mg/dL 70-105 Serum or plasma calcium measurement (mass/volume) 8.9 mg/dL 8.5-10.1 Serum or plasma albumin measurement (mass/volume) 3.8 g/dL 3.2-4.5 Serum or plasma phosphate measurement (mass/volume) 3.5 mg/dL 2.3-4.7 Capillary blood glucose measurement by g lucometer (mass/volume) - 04/19/16 20:14 Capillary blood glucose measurement by glucometer (mas s/volume) 69 mg/dL 70-110 Complete blood count (CBC) with automate d white blood cell (WBC) differential - 04/19/16 20:18 Blood leukocytes automated count (number/volume) 7.1 10*3/uL 4.3-11.0 Blood erythrocytes automated count (number/volume) 4.07 10*6/uL 4.35-5.85 Venous blood hemoglobin measurement (mass/volume) 11.6 g/dL 13.3-17.7 Blood hematocrit (volume fraction) 34 % 40-54 Automated erythrocyte mean corpuscular volume 83 [ foz_us] 80-99 Automated erythrocyte mean corpuscular h emoglobin (mass per erythrocyte) 29 pg 25-34 Automated erythrocyte mean corpuscular h emoglobin concentration measurement (mass/volume) 35 g/dL 32-36 Automated erythrocyte distribution width ratio 13. 0 % 10.0- 14.5 Automated blood platelet count (count/volume) 174 10*3/uL 130-400 Automated blood platelet mean volume measurement 11.1 [foz_us] 7.4-10.4 Automated blood neutrophils/100 leukocytes 78 % 42-75 Automated blood lymphocytes/100 leukocytes 11 % 12-44 Blood monocytes/100 leukocytes 9 % 0-12 Automated blood eosinophils/100 leukocytes 2 % 0-10 Automated blood basophils/100 leukocytes 0 % 0-10 Blood neutrophils automated count (number/volume) 5.5 10*3 1.8-7.8 Blood lymphocytes automated count (number/volume) 0.7 10*3 1.0-4.0 Blood monocytes automated count (number/volume) 0. 6 10*3 0.0-1.0 Automated eosinophil count 0.1 10*3/uL 0 .0-0.3 Automated blood basophil count (count/volume) 0.0 10*3/uL 0.0-0.1 Comprehensive metabolic panel - 04/19/16 20:18 Serum or plasma sodium measurement (moles/volume) 139 mmol/L 135-145 Serum or plasma potassium measurement (moles/volume) 2.7 mmol/L 3.6-5.0 Serum or plasma chloride measurement (moles/volume) 97 mmol/L 98-107 Carbon dioxide 27 mmol/L 21-32 Serum or plasma anion gap determination (moles/volume) 15 mmol/L 5-14 Serum or plasma urea nitrogen measurement (mass/volume ) 24 mg/dL 7-18 Serum or plasma creatinine measurement (mass/volume) 2.58 mg/dL 0.60-1.30 Serum or plasma urea nitrogen/creatinine mass ratio 9 NRG Serum or plasma creatinine measurement w ith calculation of estimated glomerular filtration rate 27 NRG Serum or plasma glucose measurement (mass/volume) 63 mg/dL 70-105 Serum or plasma calcium measurement (mass/volume) 8.1 mg/dL 8.5-10.1 Serum or plasma total bilirubin measurement (mass/volu me) 0.4 mg/dL 0.1-1.0 Serum or plasma alkaline phosphatase vivi surement (enzymatic activity/volume) 138 U/L 40-136 Serum or plasma aspartate aminotransfera se measurement (enzymatic activity/volume) 26 U/L 5-34 Serum or plasma alanine aminotransferase measurement (enzymatic activity/volume) 31 U/L 0-55 Serum or plasma protein measurement (mass/volume) 6.1 g/dL 6.4-8.2 Serum or plasma albumin measurement (mass/volume) 3.8 g/dL 3.2-4.5 Magnesium - 04/19/16 20:18 Magnesium 1.9 mg/dL 1.8-2.4 Capillary blood glucose measurement by g lucometer (mass/volume) - 12/12/16 21:20 Capillary blood glucose measurement by glucometer (mas s/volume) 146 mg/dL 70-110 Serum or plasma renal function panel (Na , K, Cl, CO2, BUN, Cr, glucose,Ca, phos, alb) - 04/29/16 08:48 Serum or plasma sodium measurement (moles/volume) 141 mmol/L 135-145 Serum or plasma potassium measurement (moles/volume) 4.7 mmol/L 3.6-5.0 Serum or plasma chloride measurement (moles/volume) 108 mmol/L 98-107 Carbon dioxide 23 mmol/L 21-32 Serum or plasma anion gap determination (moles/volume) 10 mmol/L 5-14 Serum or plasma urea nitrogen measurement (mass/volume ) 86 mg/dL 7-18 Serum or plasma creatinine measurement (mass/volume) 6.22 mg/dL 0.60-1.30 Serum or plasma urea nitrogen/creatinine mass ratio 14 NRG Serum or plasma creatinine measurement w ith calculation of estimated glomerular filtration rate 10 NRG Serum or plasma glucose measurement (mass/volume) 90 mg/dL 70-105 Serum or plasma calcium measurement (mass/volume) 8.2 mg/dL 8.5-10.1 Serum or plasma albumin measurement (mass/volume) 3.5 g/dL 3.2-4.5 Serum or plasma phosphate measurement (mass/volume) 5.1 mg/dL 2.3-4.7 Serum or plasma phosphate measurement (m ass/volume) - 05/06/16 10:44 Serum or plasma phosphate measurement (mass/volume) 5.7 mg/dL 2.3-4.7 Serum or plasma renal function panel (Na , K, Cl, CO2, BUN, Cr, glucose,Ca, phos, alb) - 06/11/16 10:43 Serum or plasma sodium measurement (moles/volume) 138 mmol/L 135-145 Serum or plasma potassium measurement (moles/volume) 4.1 mmol/L 3.6-5.0 Serum or plasma chloride measurement (moles/volume) 103 mmol/L 98-107 Carbon dioxide 21 mmol/L 21-32 Serum or plasma anion gap determination (moles/volume) 14 mmol/L 5-14 Serum or plasma urea nitrogen measurement (mass/volume ) 70 mg/dL 7-18 Serum or plasma creatinine measurement (mass/volume) 6.01 mg/dL 0.60-1.30 Serum or plasma urea nitrogen/creatinine mass ratio 12 NRG Serum or plasma creatinine measurement w ith calculation of estimated glomerular filtration rate 10 NRG Serum or plasma glucose measurement (mass/volume) 59 mg/dL 70-105 Serum or plasma calcium measurement (mass/volume) 8.0 mg/dL 8.5-10.1 Serum or plasma albumin measurement (mass/volume) 3.3 g/dL 3.2-4.5 Serum or plasma phosphate measurement (mass/volume) 5.4 mg/dL 2.3-4.7 C-Peptide, Serum - 02/17/17 08:39 C-Peptide, Serum <0.1 ng/mL 1.1-4.4 Glucose - 02/17/17 08:39 Glucose 170 mg/dL 70-110 Lipid Panel - 02/17/17 08:39 C/HDL 5.9 3.7-6.7 Cholesterol 183 mg/dL 100-240 HDL 31 mg/dL 30-85 LDL-Calculated 111 mg/dL 0-100 Trig 204 mg/dL 35-160 VLDL 41 mg/dL 0-42 C-Peptide, Serum - 02/17/17 08:39 C-Peptide, Serum <0.1 NG/ML 1.1-4.4 Complete blood count (CBC) with automate d white blood cell (WBC) differential - 10/14/17 21:09 Blood leukocytes automated count (number/volume) 11.8 10*3/uL 4.3-11.0 Blood erythrocytes automated count (number/volume) 3.52 10*6/uL 4.35-5.85 Venous blood hemoglobin measurement (mass/volume) 11.1 g/dL 13.3-17.7 Blood hematocrit (volume fraction) 31 % 40-54 Automated erythrocyte mean corpuscular volume 88 [ foz_us] 80-99 Automated erythrocyte mean corpuscular h emoglobin (mass per erythrocyte) 32 pg 25-34 Automated erythrocyte mean corpuscular h emoglobin concentration measurement (mass/volume) 36 g/dL 32-36 Automated erythrocyte distribution width ratio 14. 2 % 10.0- 14.5 Automated blood platelet count (count/volume) 138 10*3/uL 130-400 Automated blood platelet mean volume measurement 11.6 [foz_us] 7.4-10.4 Automated blood neutrophils/100 leukocytes 85 % 42-75 Automated blood lymphocytes/100 leukocytes 5 % 12-44 Blood monocytes/100 leukocytes 10 % 0-12 Automated blood eosinophils/100 leukocytes 1 % 0-10 Automated blood basophils/100 leukocytes 0 % 0-10 Blood neutrophils automated count (number/volume) 10.0 10*3 1.8-7.8 Blood lymphocytes automated count (number/volume) 0.5 10*3 1.0-4.0 Blood monocytes automated count (number/volume) 1. 2 10*3 0.0-1.0 Automated eosinophil count 0.1 10*3/uL 0 .0-0.3 Automated blood basophil count (count/volume) 0.0 10*3/uL 0.0-0.1 PT panel in platelet poor plasma by coag ulation assay - 10/14/17 21:09 Prothrombin time (PT) in platelet poor plasma by coagu lation assay 14.0 s 12.2-14.7 INR in platelet poor plasma or blood by coagulation as say 1.1 0.8-1.4 Activated partial thromboplastin time (a PTT) in platelet poor plasma bycoagulation assay - 10/14/17 21:09 Activated partial thromboplastin time (a PTT) in platelet poor plasma bycoagulation assay 49 s 24-35 Blood manual differential performed dete ction - 10/14/17 21:09 Blood monocytes/100 leukocytes 8 % NRG Manual blood segmented neutrophils/100 leukocytes 87 % NRG Blood band neutrophils/100 leukocytes 3 % NRG Manual blood lymphocytes/100 leukocytes 2 % NRG Manual eosinophils/100 leukocytes in nose 0 % NRG Manual blood basophils/100 leukocytes 0 % NRG Blood erythrocyte morphology finding identification NORMAL NRG Erythrocyte sedimentation rate by omari gren method - 10/14/17 21:09 Erythrocyte sedimentation rate by westergren method 34 mm 0- 15 Comprehensive metabolic panel - 10/14/17 21:09 Serum or plasma sodium measurement (moles/volume) 132 mmol/L 135-145 Serum or plasma potassium measurement (moles/volume) 3.1 mmol/L 3.6-5.0 Serum or plasma chloride measurement (moles/volume) 92 mmol/L 98-107 Carbon dioxide 26 mmol/L 21-32 Serum or plasma anion gap determination (moles/volume) 14 mmol/L 5-14 Serum or plasma urea nitrogen measurement (mass/volume ) 31 mg/dL 7-18 Serum or plasma creatinine measurement (mass/volume) 5.28 mg/dL 0.60-1.30 Serum or plasma urea nitrogen/creatinine mass ratio 6 NRG Serum or plasma creatinine measurement w ith calculation of estimated glomerular filtration rate 12 NRG Serum or plasma glucose measurement (mass/volume) 193 mg/dL 70-105 Serum or plasma calcium measurement (mass/volume) 10.3 mg/dL 8.5-10.1 Serum or plasma total bilirubin measurement (mass/volu me) 0.5 mg/dL 0.1-1.0 Serum or plasma alkaline phosphatase vivi surement (enzymatic activity/volume) 93 U/L 40-136 Serum or plasma aspartate aminotransfera se measurement (enzymatic activity/volume) 19 U/L 5-34 Serum or plasma alanine aminotransferase measurement (enzymatic activity/volume) 17 U/L 0-55 Serum or plasma protein measurement (mass/volume) 6.8 g/dL 6.4-8.2 Serum or plasma albumin measurement (mass/volume) 3.8 g/dL 3.2-4.5 Serum or plasma C reactive protein measu rement (mass/volume) - 10/14/17 21:09 Serum or plasma C reactive protein measurement (mass/v olume) 10.38 mg/dL 0.00-0.50 Blood lactic acid measurement (moles/vol ume) - 10/14/17 21:20 Blood lactic acid measurement (moles/volume) 0.90 mmol/L 0.50-2.00 Bacterial blood culture - 10/14/17 21:20 Bacterial blood culture NG NRG Bacterial blood culture - 10/14/17 21:49 Bacterial blood culture NG NRG Complete blood count (CBC) with automate d white blood cell (WBC) differential - 10/15/17 05:25 Blood leukocytes automated count (number/volume) 7.9 10*3/uL 4.3-11.0 Blood erythrocytes automated count (number/volume) 3.41 10*6/uL 4.35-5.85 Venous blood hemoglobin measurement (mass/volume) 10.5 g/dL 13.3-17.7 Blood hematocrit (volume fraction) 30 % 40-54 Automated erythrocyte mean corpuscular volume 89 [ foz_us] 80-99 Automated erythrocyte mean corpuscular h emoglobin (mass per erythrocyte) 31 pg 25-34 Automated erythrocyte mean corpuscular h emoglobin concentration measurement (mass/volume) 35 g/dL 32-36 Automated erythrocyte distribution width ratio 14. 5 % 10.0- 14.5 Automated blood platelet count (count/volume) 140 10*3/uL 130-400 Automated blood platelet mean volume measurement 12.4 [foz_us] 7.4-10.4 Automated blood neutrophils/100 leukocytes 75 % 42-75 Automated blood lymphocytes/100 leukocytes 9 % 12-44 Blood monocytes/100 leukocytes 14 % 0-12 Automated blood eosinophils/100 leukocytes 2 % 0-10 Automated blood basophils/100 leukocytes 0 % 0-10 Blood neutrophils automated count (number/volume) 6.0 10*3 1.8-7.8 Blood lymphocytes automated count (number/volume) 0.7 10*3 1.0-4.0 Blood monocytes automated count (number/volume) 1. 1 10*3 0.0-1.0 Automated eosinophil count 0.1 10*3/uL 0 .0-0.3 Automated blood basophil count (count/volume) 0.0 10*3/uL 0.0-0.1 Comprehensive metabolic panel - 10/15/17 05:25 Serum or plasma sodium measurement (moles/volume) 133 mmol/L 135-145 Serum or plasma potassium measurement (moles/volume) 3.0 mmol/L 3.6-5.0 Serum or plasma chloride measurement (moles/volume) 94 mmol/L 98-107 Carbon dioxide 26 mmol/L 21-32 Serum or plasma anion gap determination (moles/volume) 13 mmol/L 5-14 Serum or plasma urea nitrogen measurement (mass/volume ) 36 mg/dL 7-18 Serum or plasma creatinine measurement (mass/volume) 5.81 mg/dL 0.60-1.30 Serum or plasma urea nitrogen/creatinine mass ratio 6 NRG Serum or plasma creatinine measurement w ith calculation of estimated glomerular filtration rate 11 NRG Serum or plasma glucose measurement (mass/volume) 174 mg/dL 70-105 Serum or plasma calcium measurement (mass/volume) 9.7 mg/dL 8.5-10.1 Serum or plasma total bilirubin measurement (mass/volu me) 0.4 mg/dL 0.1-1.0 Serum or plasma alkaline phosphatase vivi surement (enzymatic activity/volume) 84 U/L 40-136 Serum or plasma aspartate aminotransfera se measurement (enzymatic activity/volume) 16 U/L 5-34 Serum or plasma alanine aminotransferase measurement (enzymatic activity/volume) 15 U/L 0-55 Serum or plasma protein measurement (mass/volume) 6.2 g/dL 6.4-8.2 Serum or plasma albumin measurement (mass/volume) 3.4 g/dL 3.2-4.5 Capillary blood glucose measurement by g lucometer (mass/volume) - 10/15/17 06:15 Capillary blood glucose measurement by glucometer (mas s/volume) 211 mg/dL 70-110 Capillary blood glucose measurement by g lucometer (mass/volume) - 10/15/17 11:00 Capillary blood glucose measurement by glucometer (mas s/volume) 180 mg/dL 70-110 Capillary blood glucose measurement by g lucometer (mass/volume) - 10/15/17 15:54 Capillary blood glucose measurement by glucometer (mas s/volume) 76 mg/dL 70-110 Vancomycin trough - 10/15/17 19:59 Vancomycin trough 16.1 ug/mL 10.0-20.0 Capillary blood glucose measurement by g lucometer (mass/volume) - 10/15/17 21:32 Capillary blood glucose measurement by glucometer (mas s/volume) 148 mg/dL 70-110 Complete blood count (CBC) with automate d white blood cell (WBC) differential - 10/16/17 05:40 Blood leukocytes automated count (number/volume) 6.9 10*3/uL 4.3-11.0 Blood erythrocytes automated count (number/volume) 3.18 10*6/uL 4.35-5.85 Venous blood hemoglobin measurement (mass/volume) 10.0 g/dL 13.3-17.7 Blood hematocrit (volume fraction) 28 % 40-54 Automated erythrocyte mean corpuscular volume 89 [ foz_us] 80-99 Automated erythrocyte mean corpuscular h emoglobin (mass per erythrocyte) 31 pg 25-34 Automated erythrocyte mean corpuscular h emoglobin concentration measurement (mass/volume) 35 g/dL 32-36 Automated erythrocyte distribution width ratio 14. 4 % 10.0- 14.5 Automated blood platelet count (count/volume) 137 10*3/uL 130-400 Automated blood platelet mean volume measurement 12.0 [foz_us] 7.4-10.4 Automated blood neutrophils/100 leukocytes 77 % 42-75 Automated blood lymphocytes/100 leukocytes 9 % 12-44 Blood monocytes/100 leukocytes 12 % 0-12 Automated blood eosinophils/100 leukocytes 2 % 0-10 Automated blood basophils/100 leukocytes 0 % 0-10 Blood neutrophils automated count (number/volume) 5.4 10*3 1.8-7.8 Blood lymphocytes automated count (number/volume) 0.6 10*3 1.0-4.0 Blood monocytes automated count (number/volume) 0. 8 10*3 0.0-1.0 Automated eosinophil count 0.1 10*3/uL 0 .0-0.3 Automated blood basophil count (count/volume) 0.0 10*3/uL 0.0-0.1 Whole blood basic metabolic panel - 10/07 05:40 Serum or plasma sodium measurement (moles/volume) 134 mmol/L 135-145 Serum or plasma potassium measurement (moles/volume) 3.3 mmol/L 3.6-5.0 Serum or plasma chloride measurement (moles/volume) 95 mmol/L 98-107 Carbon dioxide 24 mmol/L 21-32 Serum or plasma anion gap determination (moles/volume) 15 mmol/L 5-14 Serum or plasma urea nitrogen measurement (mass/volume ) 46 mg/dL 7-18 Serum or plasma creatinine measurement (mass/volume) 7.15 mg/dL 0.60-1.30 Serum or plasma urea nitrogen/creatinine mass ratio 6 NRG Serum or plasma creatinine measurement w ith calculation of estimated glomerular filtration rate 8 NRG Serum or plasma glucose measurement (mass/volume) 150 mg/dL 70-105 Serum or plasma calcium measurement (mass/volume) 9.6 mg/dL 8.5-10.1 Capillary blood glucose measurement by g lucometer (mass/volume) - 10/16/17 12:54 Capillary blood glucose measurement by glucometer (mas s/volume) 88 mg/dL 70-110 Capillary blood glucose measurement by g lucometer (mass/volume) - 10/16/17 16:01 Capillary blood glucose measurement by glucometer (mas s/volume) 74 mg/dL 70-110 Vancomycin trough - 10/16/17 19:52 Vancomycin trough 30.6 ug/mL 10.0-20.0 Capillary blood glucose measurement by g lucometer (mass/volume) - 10/16/17 20:42 Capillary blood glucose measurement by glucometer (mas s/volume) 145 mg/dL 70-110 Thyroid Stimulating Hormone - 05/17/18 1 8:05 TSH 1.48 mIU/mL 0.32-5.00 C-Peptide, Serum - 05/29/18 10:02 C-Peptide, Serum <0.1 ng/mL 1.1-4.4 Glucose - 05/29/18 10:02 Glucose 103 mg/dL 70-110 C-Peptide, Serum - 05/29/18 10:02 C-Peptide, Serum <0.1 NG/ML 1.1-4.4 Comprehensive Metabolic Panel - 08/04/18 20:40 Albumin 4.2 g/dL 3.6-5.1 ALP 150 U/L 35-130 ALT 32 U/L 6-45 Anion Gap 22 6-14 AST 33 U/L 2-40 BUN 47 mg/dL 5-25 Calcium 9.1 mg/dL 8.3-10.4 Chloride 97 mmol/L 95-114 CO2 22 mEq/L 22-33 Creat 8.16 Result Verified by Repeat Analysis mg/dL 0.50- 1.50 eGFR 7 mL/min/1.73m2 >59 Globulin 3.2 g/dL 2.3-3.5 Glucose 310 mg/dL 70-110 Osmo 307 280-295 Potassium 3.4 mmol/L 3.5-5.3 Sodium 138 mmol/L 134-148 TBil 0.5 mg/dL 0.2-1.2 TP 7.4 g/dL 6.0-8.3 Blood Culture - 08/04/18 20:50 PRELIM CULTURE RESULTS Blood Culture Negativ e, No Growth Day 1 FINAL CULTURE RESULTS Blood Culture Negative , No Growth Day 5 MEDIA PLATED Setup at 21:12 on 08/04/2018X [id number] Culture Media Position B39 CULTURE SOURCE Right Wrist, IV start Blood Culture - 08/04/18 20:50 PRELIM CULTURE RESULTS Blood Culture Negativ e, No Growth Day 1 MEDIA PLATED Setup at 21:12 on 08/04/2018X [id number] Culture Media Position B39 CULTURE SOURCE Right Wrist, IV start Influenza - 08/04/18 21:00 Influenza NEGATIVE FOR A and B 0.00-0.0 0 Arterial Blood Gas - 08/04/18 21:35 Base -2.00 mmol/L 1.80-4.20 HCO3 24 mmol/L 20-31 O2 Sat 83 Venous blood sample. % 95-1 00 pCO2 47 mm/Hg 35-45 pH 7.31 7.35-7.45 PO2 52 mm/Hg 80-95 Urinalysis - 08/04/18 22:10 Icotest N/A Negative Urine Crystals Amorphous material: Few/HPF Urine Volume Urine Volume Sufficient (10mL) Urine-Appearance Slightly Cloudy Clear Urine-Bacteria Trace Urine-Bilirubin Negative Negative Urine-Blood 2+ Negative Urine-Color Yellow Colorless-Lt. [place]s ow Urine-Epithelial Cells 0-5/HPF Urine-Glucose 2+ Negative Urine-Ketones Trace Negative Urine-Leukocytes Negative Negative Urine-Nitrite Negative Negative Urine-Other Culture to follow Urine-pH 5.5 5-8.5 Urine-Protein 3+ Negative Urine-RBC 2-5/HPF Urine-Specific [place] 1.020 1.000-1 .030 Urine-WBC 5-10/HPF Urobilinogen 0.2 0.2-1.0 Urine Culture - 08/04/18 22:10 PRELIM CULTURE RESULTS No Growth 24 hours FINAL CULTURE RESULTS No Growth 48 hours MEDIA PLATED Setup at 22:22 on 08/04/2018 CULTURE SOURCE cath urine CBC - 01/03/19 13:40 WHITE BLOOD CELL COUNT 6.9 Thousand/uL 3 .8-10.8 RED BLOOD CELL COUNT 4.24 Million/uL 4.2 0-5.80 HEMOGLOBIN 13.3 g/dL 13.2-17.1 HEMATOCRIT 38.8 % 38.5-50.0 MCV 91.5 fL 80.0-100.0 MCH 31.4 pg 27.0-33.0 MCHC 34.3 g/dL 32.0-36.0 RDW 13.5 % 11.0-15.0 PLATELET COUNT 215 Thousand/uL 140-400 MPV 10.9 fL 7.5-12.5 ABSOLUTE NEUTROPHILS 5341 cells/uL 1500- 7800 ABSOLUTE LYMPHOCYTES 842 cells/uL 850-39 00 ABSOLUTE MONOCYTES 566 cells/uL 200-950 ABSOLUTE EOSINOPHILS 110 cells/uL 15-500 ABSOLUTE BASOPHILS 41 cells/uL 0-200 NEUTROPHILS 77.4 % NRG LYMPHOCYTES 12.2 % NRG MONOCYTES 8.2 % NRG EOSINOPHILS 1.6 % NRG BASOPHILS 0.6 % NRG ESR/SED RATE - 01/03/19 13:40 SED RATE BY MODIFIED WESTERGREN 19 mm/h < OR = 15 CRP - 01/03/19 13:40 C-REACTIVE PROTEIN 35.5 mg/L <8.0 BK Quant PCR (Plasma/Serum) - 06/18/19 0 7:49 BK Quantitation PCR Negative copies/mL N egative log10 BK Qn PCR TNP [id number] CMV Quant DNA PCR (Plasma) - 06/18/19 07 :49 CMV Quant DNA PCR (Plasma) Negative IU/mL Negative log10 CMV Qn DNA Pl TNP log10 IU/mL Tacrolimus (FK506), Blood - 06/18/19 07: 49 Tacrolimus (FK506), Blood 9.9 ng/mL 2.0- 20.0 Urine Protein/Creat - 06/18/19 07:49 MTP 69 mg/dL 0-20 Urine Creatinine 151.9 mg/dl 0.0-50.0 Urine Protein/Creat Ratio 0.45 mg/dL Urine Culture - 06/18/19 07:49 PRELIM CULTURE RESULTS <10,000 Gram Positive Mixed Aida [id number] Skin Contaminant FINAL CULTURE RESULTS 20,000-50,000 Gram Pos itive Mixed Aida [id number] Skin Contaminant [id number] Further Workup done MEDIA PLATED Setup at 08:17 on 06/18/2019 CULTURE SOURCE clean BK Quant PCR (Plasma/Serum) - 06/18/19 0 7:49 BK Quantitation PCR NEGATIVE COPIES/ML N EGATIVE log10 BK Qn PCR TEST NOT PERFORMED. [id number] CMV Quant DNA PCR (Plasma) - 06/18/19 07 :49 CMV QUANT DNA PCR (PLASMA) NEGATIVE IU/ML NEGATIVE LOG10 CMV QN DNA PL TEST NOT PERFORMED. LOG10 IU/M L Tacrolimus (FK506), Blood - 06/18/19 07: 49 TACROLIMUS (FK506), BLOOD 9.9 NG/ML 2.0- 20.0 Tacrolimus (FK506), Blood - 06/21/19 07: 57 Tacrolimus (FK506), Blood 13.0 ng/mL 2.0 -20.0 Uric Acid - 06/21/19 07:57 Uric Acid 5.9 mg/dL 2.6-7.2 Urine Culture - 06/21/19 07:57 PRELIM CULTURE RESULTS No Growth 24 hours FINAL CULTURE RESULTS No Growth 48 hours CULTURE SOURCE clean Tacrolimus (FK506), Blood - 06/21/19 07: 57 TACROLIMUS (FK506), BLOOD 13.0 NG/ML 2.0 -20.0 Tacrolimus (FK506), Blood - 06/25/19 08: 39 Tacrolimus (FK506), Blood 21.0 ng/mL 2.0 -20.0 Uric Acid - 06/25/19 08:39 Uric Acid 5.8 mg/dL 2.6-7.2 Urine Culture - 06/25/19 08:39 PRELIM CULTURE RESULTS <10,000 Gram Positive Mixed Aida [id number] Skin Contaminant FINAL CULTURE RESULTS <10,000 Gram Positive Mixed Aida [id number] Skin Contaminant [id number] Further Workup done MEDIA PLATED Setup at 08:58 on 06/25/2019 CULTURE SOURCE [id number] Tacrolimus (FK506), Blood - 06/25/19 08: 39 TACROLIMUS (FK506), BLOOD 21.0 NG/ML 2.0 -20.0 Tacrolimus (FK506), Blood - 07/02/19 08: 54 Tacrolimus (FK506), Blood 11.8 ng/mL 2.0 -20.0 Uric Acid - 07/02/19 08:54 Uric Acid 6.8 mg/dL 2.6-7.2 Urine Culture - 07/02/19 08:54 PRELIM CULTURE RESULTS No Growth 24 hours FINAL CULTURE RESULTS No Growth 48 hours MEDIA PLATED Setup at 10:10 on 07/02/2019 CULTURE SOURCE CC Tacrolimus (FK506), Blood - 07/02/19 08: 54 TACROLIMUS (FK506), BLOOD 11.8 NG/ML 2.0 -20.0 Tacrolimus (FK506), Blood - 07/05/19 07: 46 Tacrolimus (FK506), Blood 11.9 ng/mL 2.0 -20.0 Comprehensive Metabolic Panel - 07/05/19 07:46 Albumin 3.9 g/dL 3.6-5.1 ALP 110 U/L 35-130 ALT 14 U/L 6-45 Anion Gap 12 6-14 AST 14 U/L 2-40 BUN 30 mg/dL 5-25 Calcium 8.8 mg/dL 8.3-10.4 Chloride 114 mmol/L 95-114 CO2 17 mEq/L 22-33 Creat 3.77 mg/dL 0.50-1.50 eGFR 17 mL/min/1.73m2 >59 Globulin 2.0 g/dL 2.3-3.5 Glucose 78 mg/dL 70-110 Osmo 290 280-295 Potassium 4.9 mmol/L 3.5-5.3 Sodium 138 mmol/L 134-148 TBil 0.2 mg/dL 0.2-1.2 TP 5.9 g/dL 6.0-8.3 Urine Culture - 07/05/19 07:46 PRELIM CULTURE RESULTS No Growth 24 hours FINAL CULTURE RESULTS No Growth 48 hours MEDIA PLATED Setup at 0750 on 07/05/2019 CULTURE SOURCE clean catch Tacrolimus (FK506), Blood - 07/05/19 07: 46 TACROLIMUS (FK506), BLOOD 11.9 NG/ML 2.0 -20.0 Urinalysis - 07/12/19 07:54 Icotest N/A Negative Urine Casts None Seen Urine Crystals 3+ Amorphous Urine Volume Urine Volume Sufficient (10mL) Urine Yeast No Yeast present Urine-Appearance Clear Clear Urine-Bacteria Negative Urine-Bilirubin Negative Negative Urine-Blood 1+ Negative Urine-Color Yellow Colorless-Lt. Stearns ow Urine-Epithelial Cells None Urine-Glucose Trace Negative Urine-Ketones Negative Negative Urine-Leukocytes Negative Negative Urine-Mucus 1+ Urine-Nitrite Negative Negative Urine-Other Urine Saved if Culture Need ed (48hrs from time of collection) Urine-pH 5.5 5-8.5 Urine-Protein 1+ Negative Urine-RBC Negative Urine-Specific Beaver 1.025 1.000-1 .030 Urine-WBC 2-5/HPF Urobilinogen 0.2 E.U./dL 0.2-1.0 Urine Protein/Creat - 07/12/19 07:54 MTP 57 mg/dL 0-20 Urine Creatinine 160.9 mg/dl 0.0-50.0 Urine Protein/Creat Ratio 0.36 mg/dL Tacrolimus (FK506), Blood - 07/16/19 07: 55 Tacrolimus (FK506), Blood 12.3 ng/mL 2.0 -20.0 Phosphorus - 07/16/19 07:55 Phosphorus 2.8 mg/dL 2.5-4.8 Uric Acid - 07/16/19 07:55 Uric Acid 5.8 mg/dL 2.6-7.2 Urine Protein/Creat - 07/16/19 07:55 MTP 51 mg/dL 0-20 Urine Creatinine 140.7 mg/dl 0.0-50.0 Urine Protein/Creat Ratio 0.36 mg/dL Urine Culture - 07/16/19 07:55 PRELIM CULTURE RESULTS <10,000 Gram Positive Mixed Aida [id number] Skin Contaminant FINAL CULTURE RESULTS No Further Workup done MEDIA PLATED Setup at 08:34 on 07/16/2019 CULTURE SOURCE clean Tacrolimus (FK506), Blood - 07/16/19 07: 55 TACROLIMUS (FK506), BLOOD 12.3 NG/ML 2.0 -20.0 Uric Acid - 07/19/19 09:39 Uric Acid 5.8 mg/dL 2.6-7.2 Tacrolimus (FK506), Blood - 07/19/19 09: 39 TACROLIMUS (FK506), BLOOD 8.4 ng/mL 2.0- 20.0 Tacrolimus (FK506), Blood - 07/26/19 09: 10 Tacrolimus (FK506), Blood 14.4 ng/mL 2.0 -20.0 Urine Protein/Creat - 07/26/19 09:10 MTP 81 mg/dL 0-20 Urine Creatinine 229.5 mg/dl 0.0-50.0 Urine Protein/Creat Ratio 0.35 mg/dL Uric Acid - 07/26/19 09:10 Uric Acid 6.2 mg/dL 2.6-7.2 Tacrolimus (FK506), Blood - 07/26/19 09: 10 TACROLIMUS (FK506), BLOOD 14.4 NG/ML 2.0 -20.0 Tacrolimus (FK506), Blood - 07/30/19 07: 51 Tacrolimus (FK506), Blood 20.7 ng/mL 2.0 -20.0 BK Quant PCR (Plasma/Serum) - 07/30/19 0 7:51 BK Quantitation PCR Negative copies/mL N egative log10 BK Qn PCR TNP [id number]/mL CMV Quant DNA PCR (Plasma) - 07/30/19 07 :51 CMV Quant DNA PCR (Plasma) Negative IU/mL Negative log10 CMV Qn DNA Pl TNP log10 IU/mL Phosphorus - 07/30/19 07:51 Phosphorus 2.7 mg/dL 2.5-4.8 Urine Protein/Creat - 07/30/19 07:51 MTP 61 mg/dL 0-20 Urine Creatinine 146.6 mg/dl 0.0-50.0 Urine Protein/Creat Ratio 0.42 mg/dL Uric Acid - 07/30/19 07:51 Uric Acid 6.4 mg/dL 2.6-7.2 Tacrolimus (FK506), Blood - 07/30/19 07: 51 TACROLIMUS (FK506), BLOOD 20.7 NG/ML 2.0 -20.0 BK Quant PCR (Plasma/Serum) - 07/30/19 0 7:51 BK Quantitation PCR NEGATIVE COPIES/ML N EGATIVE log10 BK Qn PCR TEST NOT PERFORMED. [id number] CMV Quant DNA PCR (Plasma) - 07/30/19 07 :51 CMV QUANT DNA PCR (PLASMA) NEGATIVE IU/ML NEGATIVE LOG10 CMV QN DNA PL TEST NOT PERFORMED. LOG10 IU/M L Magnesium - 08/02/19 11:11 Mg++ 1.9 mg/dL 1.6-2.6 Phosphorus - 08/02/19 11:11 Phosphorus 2.4 mg/dL 2.5-4.8 Uric Acid - 08/02/19 11:11 Uric Acid 6.4 mg/dL 2.6-7.2 Tacrolimus (FK506), Blood - 08/02/19 11: 11 TACROLIMUS (FK506), BLOOD 19.7 NG/ML 2.0 -20.0 Tacrolimus (FK506), Blood - 08/06/19 07: 36 Tacrolimus (FK506), Blood 11.6 ng/mL 2.0 -20.0 Uric Acid - 08/06/19 07:36 Uric Acid 5.6 mg/dL 2.6-7.2 Tacrolimus (FK506), Blood - 08/06/19 07: 36 TACROLIMUS (FK506), BLOOD 11.6 NG/ML 2.0 -20.0 Magnesium - 08/09/19 09:38 Mg++ 1.7 mg/dL 1.6-2.6 Phosphorus - 08/09/19 09:38 Phosphorus 2.9 mg/dL 2.5-4.8 Urine Protein/Creat - 08/09/19 09:38 MTP 37 mg/dL 0-20 Urine Creatinine 96.5 mg/dl 0.0-50.0 Urine Protein/Creat Ratio 0.39 mg/dL Uric Acid - 08/09/19 09:38 Uric Acid 5.4 mg/dL 2.6-7.2 Tacrolimus (FK506), Blood - 08/09/19 09: 38 TACROLIMUS (FK506), BLOOD 10.0 NG/ML 2.0 -20.0 Urine Protein/Creat - 08/13/19 07:45 MTP 43 mg/dL 0-20 Urine Creatinine 128.4 mg/dl 0.0-50.0 Urine Protein/Creat Ratio 0.33 mg/dL Uric Acid - 08/13/19 07:45 Uric Acid 5.7 mg/dL 2.6-7.2 Tacrolimus (FK506), Blood - 08/13/19 07: 45 TACROLIMUS (FK506), BLOOD 19.4 NG/ML 2.0 -20.0 Tacrolimus (FK506), Blood - 08/13/19 07: 45 Tacrolimus (FK506), Blood 19.4 ng/mL 2.0 -20.0 Tacrolimus (FK506), Blood - 08/16/19 09: 30 Tacrolimus (FK506), Blood 14.0 ng/mL 2.0 -20.0 Uric Acid - 08/16/19 09:30 Uric Acid 5.4 mg/dL 2.6-7.2 Tacrolimus (FK506), Blood - 08/16/19 09: 30 TACROLIMUS (FK506), BLOOD 14.0 NG/ML 2.0 -20.0 Uric Acid - 08/23/19 09:37 Uric Acid 5.4 mg/dL 2.6-7.2 Tacrolimus (FK506), Blood - 08/23/19 09: 37 TACROLIMUS (FK506), BLOOD 8.2 NG/ML 2.0- 20.0 Tacrolimus (FK506), Blood - 08/23/19 09: 37 Tacrolimus (FK506), Blood 8.2 ng/mL 2.0- 20.0 BK Quant PCR (Plasma/Serum) - 08/28/19 0 8:30 BK Quantitation PCR Negative copies/mL N egative log10 BK Qn PCR TNP [id number]/mL CMV Quant DNA PCR (Plasma) - 08/28/19 08 :30 CMV Quant DNA PCR (Plasma) Negative IU/mL Negative log10 CMV Qn DNA Pl TNP log10 IU/mL Tacrolimus (FK506), Blood - 08/28/19 08: 30 Tacrolimus (FK506), Blood 10.1 ng/mL 2.0 -20.0 Urine Protein/Creat - 08/28/19 08:30 MTP 51 mg/dL 0-20 Urine Creatinine 130.5 mg/dl 0.0-50.0 Urine Protein/Creat Ratio 0.39 mg/dL Tacrolimus (FK506), Blood - 08/28/19 08: 30 TACROLIMUS (FK506), BLOOD 10.1 NG/ML 2.0 -20.0 BK Quant PCR (Plasma/Serum) - 08/28/19 0 8:30 BK Quantitation PCR NEGATIVE COPIES/ML N EGATIVE log10 BK Qn PCR TEST NOT PERFORMED. [id number]/ML CMV Quant DNA PCR (Plasma) - 08/28/19 08 :30 CMV QUANT DNA PCR (PLASMA) NEGATIVE IU/ML NEGATIVE LOG10 CMV QN DNA PL TEST NOT PERFORMED. LOG10 IU/M L Tacrolimus (FK506), Blood - 08/30/19 09: 54 Tacrolimus (FK506), Blood 5.1 ng/mL 2.0- 20.0 Uric Acid - 08/30/19 09:54 Uric Acid 5.7 mg/dL 2.6-7.2 Tacrolimus (FK506), Blood - 08/30/19 09: 54 TACROLIMUS (FK506), BLOOD 5.1 NG/ML 2.0- 20.0 Tacrolimus (FK506), Blood - 09/04/19 07: 47 Tacrolimus (FK506), Blood 7.8 ng/mL 2.0- 20.0 Magnesium - 09/04/19 07:47 Mg++ 1.9 mg/dL 1.6-2.6 Phosphorus - 09/04/19 07:47 Phosphorus 3.6 mg/dL 2.5-4.8 Uric Acid - 09/04/19 07:47 Uric Acid 5.4 mg/dL 2.6-7.2 Tacrolimus (FK506), Blood - 09/04/19 07: 47 TACROLIMUS (FK506), BLOOD 7.8 NG/ML 2.0- 20.0 Uric Acid - 09/06/19 09:19 Uric Acid 6.0 mg/dL 2.6-7.2 Tacrolimus (FK506), Blood - 09/06/19 09: 19 TACROLIMUS (FK506), BLOOD 10.3 NG/ML 2.0 -20.0 Tacrolimus (FK506), Blood - 09/10/19 09: 52 Tacrolimus (FK506), Blood 9.8 ng/mL 2.0- 20.0 Uric Acid - 09/10/19 09:52 Uric Acid 6.4 mg/dL 2.6-7.2 Tacrolimus (FK506), Blood - 09/10/19 09: 52 TACROLIMUS (FK506), BLOOD 9.8 NG/ML 2.0- 20.0 Urinalysis - 09/13/19 08:25 Icotest N/A Negative Urine Volume Urine Volume Sufficient (10mL) Urine-Appearance Clear Clear Urine-Bilirubin Negative Negative Urine-Blood 1+ Negative Urine-Color Yellow Colorless-Lt. Stearns ow Urine-Glucose Negative Negative Urine-Ketones Negative Negative Urine-Leukocytes Negative Negative Urine-Nitrite Negative Negative Urine-pH 5.5 5-8.5 Urine-Protein 2+ Negative Urine-RBC 2-5/HPF Urine-Specific Beaver 1.020 1.000-1 .030 Urine-WBC 0-2/HPF Urobilinogen 0.2 0.2-1.0 Tacrolimus (FK506), Blood - 09/13/19 08: 25 TACROLIMUS (FK506), BLOOD 8.8 NG/ML 2.0- 20.0 Uric Acid - 09/17/19 08:16 Uric Acid 5.5 mg/dL 2.6-7.2 Tacrolimus (FK506), Blood - 09/17/19 08: 16 TACROLIMUS (FK506), BLOOD 8.4 NG/ML 2.0- 20.0 Tacrolimus (FK506), Blood - 09/17/19 08: 16 Tacrolimus (FK506), Blood 8.4 ng/mL 2.0- 20.0 Tacrolimus (FK506), Blood - 09/20/19 07: 31 Tacrolimus (FK506), Blood 7.0 ng/mL 2.0- 20.0 Magnesium - 09/20/19 07:31 Mg++ 1.9 mg/dL 1.6-2.6 Phosphorus - 09/20/19 07:31 Phosphorus 2.5 mg/dL 2.5-4.8 Tacrolimus (FK506), Blood - 09/20/19 07: 31 TACROLIMUS (FK506), BLOOD 7.0 NG/ML 2.0- 20.0 Tacrolimus (FK506), Blood - 09/24/19 08: 18 Tacrolimus (FK506), Blood 8.4 ng/mL 2.0- 20.0 Uric Acid - 09/24/19 08:18 Uric Acid 5.3 mg/dL 2.6-7.2 Tacrolimus (FK506), Blood - 09/24/19 08: 18 TACROLIMUS (FK506), BLOOD 8.4 NG/ML 2.0- 20.0 Coronavirus SARS-CoV-2 SO 2019 - 0 13:45 Coronavirus Ab [Units/volume] in Serum Negative Negative Phosphorus - 09/27/19 08:16 Phosphorus 2.8 mg/dL 2.5-4.8 Uric Acid - 09/27/19 08:16 Uric Acid 6.1 mg/dL 2.6-7.2 Encounters ACCT No. Visit Date/Time Discharge Status Pt. Type Provider Facility Loc./Unit Complaint [id number] 05/30/2018 12:19:00 Document Registration [id number] 09/24/2019 09:42:00 15:08:00 DIS Outpatient AD HER MD [facility] PREOP CATARACT RIGHT EYE [id number] 07/26/2019 07:57:00 23:59:59 CLS Outpatient CHELI ANTON APRN [facility] RAD OTHER DISORDERS OF LUNG [id number] 07/23/2019 10:39:00 23:59:59 CLS Outpatient CHELI ANTON APRN [facility] RAD DYSPNEA [id number] 07/13/2019 11:30:00 23:59:59 CLS Preadmit AD HER MD [facility] SDC CATARACT RIGHT EYE [id number] 07/10/2019 05:52:00 23:59:59 CLS Outpatient AD HER MD [facility] PREOP CATARACT RIGHT EYE [id number] 12/07/2018 11:54:00 23:59:59 CLS Outpatient CHELI ANTON APRN [facility] RT DYSPNEA,HYPOXIA [id number] 11/01/2018 19:49:00 06:31:00 DIS Outpatient CHELI ANTON APRN [facility] SLEEP GREGORY [id number] 01/27/2018 10:24:00 018 23:59:59 CLS Preadmit BALDEMAR REYES, MONICA Landa [facility] WOUNDCARE [id number] 10/17/2017 12:54:00 018 23:59:59 CLS Preadmit ALBARO HERNANDEZ DO LEFT FOOT CELLULITIS [id number] 10/14/2017 22:15:00 018 22:06:00 DIS Inpatient VÍCTOR REYES, ROXANNA Armendariz [facility] 4TH CELLULITIS L FOOT,IDDM, DIABETIC FOOT ULCER,PERIPHE [id number] 06/07/2017 18:19:00 018 20:06:00 DIS Emergency OLIVIA ROBERTSON APRN [facility] ER L WRIST/PALM INJ [id number] 09/07/2016 10:19:00 017 23:59:59 CLS Outpatient SHARAD HOLLIS [facility] RAD M54.5 [id number] 08/13/2016 00:11:00 017 23:59:59 CLS Preadmit SABIHA ESCALONA [facility] ONC [id number] 07/01/2016 13:21:00 017 00:01:00 DIS Outpatient SABIHA ESCALONA V [facility] ONC [id number] 06/11/2016 02:45:00 017 11:05:00 DIS Outpatient CARLOS ENRIQUE PADGETT MD [facility] LAB [id number] 05/07/2016 12:09:00 017 00:01:00 DIS Outpatient CARLOS ENRIQUE PADGETT MD [facility] LAB [id number] 05/06/2016 10:35:00 017 00:01:00 DIS Outpatient SABIHA ESCALONA V [facility] ONC [id number] 04/19/2016 20:05:00 016 21:35:00 DIS Emergency ALYSIA EDWARDS DO [facility] ER LOW BLOOD SUGAR [id number] 02/05/2016 08:50:00 11:09:00 DIS Outpatient SABIHA ESCALONA V [facility] ONC [id number] 01/29/2016 13:13:00 11:09:00 DIS Outpatient CARLOS ENRIQUE PADGETT MD [facility] LAB [id number] 01/22/2016 13:22:00 14:57:00 DIS Emergency OLIVIA ROBERTSON APRN [facility] ER POSS LOW BLOOD SUGAR/CL BHAVIK [id number] 11/27/2015 13:41:00 00:01:00 DIS Outpatient SABIHA ESCALONA [facility] ONC [id number] 11/23/2015 00:33:00 18:12:00 DIS Inpatient SARI DAVIS MD [facility] 4TH DYSPNEA, ACUTE EXACERBA TION CHF, CRF [id number] 11/06/2015 14:13:00 23:59:59 CLS Outpatient CARLOS ENRIQUE PADGETT MD [facility] LAB [id number] 11/05/2015 07:41:00 14:12:00 DIS Outpatient MONICA HOLCOMB MD [facility] SDC LEFT SHOULDER TEAR AND CYST [id number] 10/30/2015 12:05:00 016 12:35:00 DIS Outpatient MONICA HOLCOMB MD [facility] PREOP LEFT SHOULDER TEAR AND CYST [id number] 10/23/2015 09:09:00 016 23:59:59 CLS Outpatient CARLOS ENRIQUE PADGETT MD [facility] LAB [id number] 10/16/2015 13:43:00 016 23:59:59 CLS Outpatient CARLOS ENRIQUE PADGETT MD [facility] LAB [id number] 10/13/2015 10:41:00 10:41:00 CAN Preadmit CARLOS ENRIQUE PADGETT MD a [facility] LAB [id number] 10/09/2015 13:00:00 23:59:59 CLS Outpatient SARAHI MARION [facility] ONC [id number] 09/25/2015 15:27:00 23:59:59 CLS Outpatient CARLOS ENRIQUE PADGETT MD [facility] LAB [id number] 09/09/2015 10:14:00 23:59:59 CLS Outpatient SARI DAVIS MD [facility] RAD PHYSICAL DECONDITIONING [id number] 09/03/2015 16:56:00 23:59:59 CLS Outpatient CHELI ANTON APRN [facility] RT DYSPNEA [id number] 09/03/2015 16:45:00 23:59:59 CLS Outpatient SARI DAVIS MD [facility] RAD PAIN IN LEFT SHOULDER [id number] 08/28/2015 09:34:00 00:01:00 DIS Outpatient SABIHA ESCALONA [facility] ONC [id number] 08/27/2015 13:54:00 23:59:59 CLS Outpatient CHELI ANTON APRN [facility] RAD DYSPNEA [id number] 08/14/2015 12:55:00 23:59:59 CLS Outpatient SARAHI MARION [facility] ONC [id number] 07/03/2015 10:14:00 23:59:59 CLS Outpatient CARLOS ENRIQUE PADGETT MD [facility] LAB [id number] 07/03/2015 10:12:00 23:59:59 CLS Outpatient SARAHI MARION [facility] ONC [id number] 06/30/2015 11:08:00 23:59:59 CLS Outpatient ELVER REYES FACC, JAIMIE JEFFERY CC DS [facility] LAB CHF, DM, CK D [id number] 06/18/2015 21:06:00 06:40:00 DIS Outpatient EITAN CROUCH DO [facility] SLEEP CHOKING/GASPING DURING SLEEP,ARRHYTHMIAS [id number] 06/05/2015 15:52:00 016 23:59:59 CLS Outpatient EITAN CROUCH DO [facility] RAD HYPOXIA,DYSPNEA [id number] 05/26/2015 09:50:00 016 23:59:59 CLS Outpatient EITAN CROUCH DO [facility] CARD HYPOXIA,DYSPNEA [id number] 05/23/2015 11:40:00 016 23:59:59 CLS Outpatient EITAN CROUCH DO [facility] RAD HYPOXIA,DYSPNEA [id number] 05/22/2015 08:43:00 016 23:59:59 CLS Outpatient EITAN CROUCH DO [facility] HH HYPOXIA [id number] 05/19/2015 13:05:00 016 23:59:59 CLS Outpatient ELKE ESQUIVEL DO [facility] HH DIABETES,ANEMIA,ACUTE K IDNEY FAILURE [id number] 04/18/2015 17:15:00 13:30:00 DIS Inpatient NIKI ANDERSON MD [facility] IRF RESP ARREST [id number] 10/05/2019 08:00:00 P EN Preadmit AD HER MD [facility] CATARACT LEFT EYE [id number] 09/28/2019 06:41:[address] Outpatient AD HER MD [facility] CATARACT RIGHT EYE [id number] 07/18/2015 09:15:00 Document Registration [id number] 09/06/2019 15:08:00 Document Registration [id number] 08/01/2019 13:08:00 Document Registration [id number] 08/31/2019 11:08:00 Document Registration [id number] 08/08/2019 16:09:00 Document Registration [id number] 08/16/2019 00:06:00 Document Registration [id number] 07/08/2019 09:31:00 Document Registration [id number] 09/26/2019 18:08:00 Document Registration [id number] 08/18/2019 03:06:00 Document Registration [id number] 07/18/2019 11:10:00 Document Registration [id number] 08/04/2018 20:20:00 Document Registration [id number] 09/13/2019 11:09:00 Document Registration [id number] 09/23/2019 10:08:00 Document Registration [id number] 06/21/2019 00:07:00 Document Registration [id number] 08/30/2019 10:08:00 Document Registration [id number] 06/21/2019 10:10:00 Document Registration [id number] 06/23/2019 09:10:00 Document Registration [id number] 07/28/2019 06:08:00 Document Registration [id number] 02/18/2017 13:15:00 Document Registration [id number] 06/28/2019 08:14:00 Document Registration [id number] 07/04/2019 20:08:00 Document Registration [id number] 09/01/2019 09:09:00 Document Registration [id number] 06/18/2019 10:20:00 06/18/2019 23:59: 59 CLS Outpatient SARI DAVIS MD [id number] 01/03/2019 11:40:00 Document Registration [id number] 09/27/2019 08:11:00 09/27/2019 23:59 :00 DIS Outpatient Berta Denis [id number] 09/24/2019 08:10:00 09/24/2019 23:59 :00 DIS Outpatient Berta Denis [id number] 09/20/2019 07:20:00 09/20/2019 23:59 :00 DIS Outpatient Berta Denis [id number] 09/17/2019 08:11:00 09/17/2019 23:59 :00 DIS Outpatient Berta Denis [id number] 09/13/2019 08:19:00 09/13/2019 23:59 :00 DIS Outpatient Berta Denis [id number] 09/10/2019 09:47:00 09/10/2019 23:59 :00 DIS Outpatient Denis, Berta [id number] 09/06/2019 09:08:00 09/06/2019 23:59 :00 DIS Outpatient Denis, Berta [id number] 09/04/2019 07:41:00 09/04/2019 23:59 :00 DIS Outpatient Denis, Berta [id number] 08/30/2019 09:44:00 08/30/2019 23:59 :00 DIS Outpatient DENIS, ANDREA [id number] 08/28/2019 08:20:00 08/28/2019 23:59 :00 DIS Outpatient DENIS, BANNER [id number] 08/23/2019 09:31:00 08/23/2019 23:59 :00 DIS Outpatient DENIS, ANDREA [id number] 08/16/2019 00:00:00 08/16/2019 10:07 :00 DIS Outpatient Denis, Berta [id number] 08/13/2019 07:41:00 08/13/2019 23:59 :00 DIS Outpatient Denis, Berta [id number] 08/09/2019 09:32:00 08/09/2019 09:50 :00 DIS Outpatient Denis, Berta [id number] 08/06/2019 00:00:00 08/06/2019 23:59 :00 DIS Outpatient Denis, Berat [id number] 08/02/2019 11:04:00 08/02/2019 23:59 :00 DIS Outpatient Denis, Berta [id number] 08/02/2019 11:20:00 08/02/2019 11:50 :00 DIS Outpatient Jayy Rendon [id number] 07/30/2019 07:42:00 07/30/2019 23:59 :00 DIS Outpatient Denis, Berta [id number] 07/26/2019 00:00:00 07/26/2019 23:59 :00 DIS Outpatient Denis, Berta [id number] 07/26/2019 09:12:00 07/26/2019 09:35 :00 DIS Outpatient Jayy Rendon [id number] 07/19/2019 09:35:00 07/19/2019 23:59 :00 DIS Outpatient Denis, Berta [id number] 07/16/2019 07:51:00 07/16/2019 23:59 :00 DIS Outpatient Denis, Berta [id number] 07/12/2019 07:51:00 07/12/2019 23:59 :00 DIS Outpatient Denis, Berta [id number] 07/05/2019 07:42:00 07/05/2019 23:59 :00 DIS Outpatient Denis, Berta [id number] 07/02/2019 08:50:00 07/02/2019 23:59 :00 DIS Outpatient Denis, Berta [id number] 06/25/2019 08:34:00 06/25/2019 23:59 :00 DIS Outpatient Denis, Berta [id number] 06/21/2019 07:53:00 06/21/2019 23:59 :00 DIS Outpatient Denis, Berta [id number] 06/18/2019 07:42:00 06/18/2019 23:59 :00 DIS Outpatient UNLISTED, UNLISTED [id number] 05/22/2019 20:04:00 05/22/2019 20:32 :00 DIS Outpatient RUBEN, [facility] ER [id number] 08/04/2018 20:20:00 08/04/2018 23:20: 00 DIS Outpatient Howayek, [facility] ER [id number] 07/10/2018 13:55:00 07/10/2018 23:59: 00 DIS Outpatient UNLISTED, UNLISTED [id number] 05/29/2018 09:56:00 05/29/2018 23:59: 00 DIS Outpatient JOSE MANUELJEREMIAH [id number] 05/17/2018 17:58:00 05/17/2018 23:59: 00 DIS Outpatient JOSE MANUELJEREMIAH [id number] 12/23/2017 11:48:00 12/23/2017 12:23: 00 DIS Outpatient Howayek, [facility] ER [id number] 02/17/2017 08:31:00 02/17/2017 23:59: 00 DIS Outpatient JOSE MANUELJEREMIAH [id number] 09/08/2016 13:36:00 11/18/2016 16:00: 00 DIS Outpatient ABOUL-MAGDDIAZ [id number] 10/01/2016 14:09:00 10/01/2016 23:59: 00 DIS Outpatient JEREMIASUL-DIAZ DUFF [id number] 09/02/2016 11:53:00 09/02/2016 23:59: 00 DIS Outpatient ABOUL-MAGD DIAZ [id number] 08/04/2018 20:56:02 Document Registration [id number] 07/25/2018 09:51:33 Document Registration [id number] 08/15/2019 08:09:00 Document Registration [id number] 08/25/2019 23:06:00 Document Registration [id number] 09/19/2019 19:08:00 Document Registration
--- NOTE | 2019-09-28 11:20 | Anesthesia-General Post-Op ---
MAC Patient Condition Mental Status/LOC: Same as Preop Cardiovascular: Satisfactory Nausea/Vomiting: Absent Respiratory: Satisfactory Pain: Controlled Complications: Absent Post Op Complications Complications None Follow Up Care/Instructions Patient Instructions None needed. Anesthesiology Discharge Order Discharge Order Patient is doing well, no complaints, stable vital signs, no apparent adverse anesthesia problems. No complications reported per nursing. ELIAS PINEDA CRNA September 28, 2019 11:20
== END 2019-09-28 08:55 | disposition home or self-care (01) ==
LOC: SDC 06:41
PROVIDERS: ATTEND Specialist
DX: H25.11 Age-related nuclear cataract, right eye (principal); I10 Essential (primary) hypertension; G47.33 Obstructive sleep apnea (adult) (pediatric); E11.36 Type 2 diabetes mellitus with diabetic cataract; Z94.0 Kidney transplant status; Z79.82 Long term (current) use of aspirin; Z88.0 Allergy status to penicillin; Z88.5 Allergy status to narcotic agent; Z87.891 Personal history of nicotine dependence; Z99.89 Dependence on other enabling machines and devices; Z79.4 Long term (current) use of insulin; Z79.899 Other long term (current) drug therapy

== ENCOUNTER 2019-10-05 06:30 | Day surgery (SDC) | payer MEDICARE, MEDICAID ==
[~2019-10-05] VITALS: Ht 167.7 cm; Wt 90.9 kg
[2019-10-05 06:40] VITALS: BP 147/91
[2019-10-05] MEDS ORDERED: TIMOLOL MALEATE 0.5% 5 ML (TIMOPTIC) BTL OU PRN (06:45)
[2019-10-05] MEDS ORDERED: MOXIFLOXACIN OPHTH SOLN 5 MG/ML 0.3 ML SYRINGE OP ONE (06:45)
[2019-10-05] MEDS ORDERED: LIDOCAINE PF 1% 2 ML VIAL IR PRN (06:45)
[2019-10-05] MEDS ORDERED: POVIDONE (BETADINE) OPHTH SOLN 5% 30 ML OP ONE (06:45)
[2019-10-05] MEDS: TETRACAINE 0.5% OPHTH SOLN 4 ML BTL (SINGLE DOSE ONLY) OU PRN ×4 (06:46→07:08)
[2019-10-05] MEDS: CYCLOPENTOLATE 1% (CYCLOGYL) 2 ML DROPS OP SCH ×3 (06:56→07:08)
[2019-10-05] MEDS: PHENYLEPHRINE 10% OPHTH (NEO-SYN) 5 ML BTL OU SCH ×3 (06:56→07:08)
[2019-10-05] MEDS ORDERED: MIDAZOLAM 2 MG/2 ML (VERSED) VIAL ONE (07:47)
--- NOTE | 2019-10-05 07:57 | Ophthalmologist Pre-Op Note ---
Pre-Operative Progress Note H&P Reviewed The H&P was reviewed, patient examined and no changes noted. Date H&P Reviewed: October 05, 2019 Time H&P Reviewed: 07:56 Pre-Op Dx Cataract, Left Eye AD HER MD October 05, 2019 07:57
[2019-10-05] MEDS ORDERED: acetaZOLAMIDE ER 500 MG CAP (DIAMOX SEQUELS) PO ONE (08:00)
--- NOTE | 2019-10-05 08:21 | Ophthalmology Operative Report ---
Cataract removal/placement IOL PREOPERATIVE DIAGNOSIS: Cataract Left Eye POSTOPERATIVE DIAGNOSIS: Cataract Left Eye PROCEDURE: Cataract removal and placement of posterior chamber implant, left eye SURGEON: Holland Her ANESTHESIA: Topical with sedation COMPLICATIONS: None ESTIMATED BLOOD LOSS: Minimal DESCRIPTION OF PROCEDURE: After proper informed consent was obtained, the patient, a 49 male, was taken to the Operating Room and the left eye was anesthetized with tetracaine. The left eye was then prepped and draped in the usual manner. A wire lid speculum was placed. A paracentesis was made at the left hand position. Preservative free lidocaine was injected into the anterior chamber followed by viscoelastic. A clear corneal incision was made in the temporal position. A capsulorrhexis was preformed and the central nuclear and cortical material were removed. The posterior capsule was polished and an Aditya 20.0 AU00T0 was placed into the capsular bag. The residual viscoelastic was aspirated and balanced saline solution was injected into the anterior chamber. Moxifloxacin was injected into the anterior chamber. The wound was checked and found to be water tight. The patient tolerated the procedure well without complications. HOLLAND HER MD October 05, 2019 08:21
[2019-10-05 08:30] VITALS: BP 159/81
--- NOTE | 2019-10-05 12:37 | Anesthesia-General Post-Op ---
MAC Patient Condition Mental Status/LOC: Same as Preop Cardiovascular: Satisfactory Nausea/Vomiting: Absent Respiratory: Satisfactory Pain: Controlled Complications: Absent Post Op Complications Complications None Follow Up Care/Instructions Patient Instructions None needed. Anesthesiology Discharge Order Discharge Order Patient is doing well, no complaints, stable vital signs, no apparent adverse anesthesia problems. No complications reported per nursing. YONIS APODACA CRNA October 05, 2019 12:37
== END 2019-10-05 08:30 | disposition home or self-care (01) ==
LOC: SDC 06:30
PROVIDERS: ATTEND Specialist
DX: H25.12 Age-related nuclear cataract, left eye (principal); E11.36 Type 2 diabetes mellitus with diabetic cataract; I10 Essential (primary) hypertension; G47.33 Obstructive sleep apnea (adult) (pediatric); Z79.4 Long term (current) use of insulin; Z88.0 Allergy status to penicillin; Z88.5 Allergy status to narcotic agent; Z99.89 Dependence on other enabling machines and devices; Z79.899 Other long term (current) drug therapy; Z87.891 Personal history of nicotine dependence

== ENCOUNTER 2020-07-08 06:22 | Outpatient (RCR) | payer MEDICARE, MEDICAID ==
[~2020-07-08] VITALS: Ht 167.7 cm; Wt 83.2 kg
== END 2020-07-08 12:18 | disposition home or self-care (01) ==
LOC: PREOP 06:22
PROVIDERS: ATTEND Specialist
DX: Z01.818 Encounter for other preprocedural examination (principal)

== ENCOUNTER 2020-07-11 07:04 | Day surgery (SDC) | payer MEDICARE, MEDICAID ==
[~2020-07-11] VITALS: Ht 167 cm; Wt 83.2 kg
[2020-07-11 07:15] VITALS: BP 133/72
[2020-07-11] MEDS ORDERED: PHENYLEPHRINE 10% OPHTH (NEO-SYN) 5 ML BTL OU PRN (07:30)
[2020-07-11] MEDS ORDERED: TROPICAMIDE 1% OPH SOLN (MYDRIACYL) 15 ML BTL OU PRN (07:30)
[2020-07-11] MEDS ORDERED: TETRACAINE 0.5% OPHTH SOLN 4 ML BTL (SINGLE DOSE ONLY) OU PRN (07:30)
--- NOTE | 2020-07-11 07:57 | Ophthalmologist Pre-Op Note ---
Pre-Operative Progress Note H&P Reviewed The H&P was reviewed, patient examined and no changes noted. Date H&P Reviewed: Jul 11, 2020 Time H&P Reviewed: 07:45 Pre-Op Dx Secondary Cataract, Bilateral Eyes AD HER MD Jul 11, 2020 07:57
--- NOTE | 2020-07-11 07:58 | Ophthalmology Operative Report ---
YAG Capsulotomy PREOPERATIVE DIAGNOSIS: Secondary Cataract Bilateral POSTOPERATIVE DIAGNOSIS: Secondary Cataract Bilateral PROCEDURE: YAG Capsulotomy, Bilateral SURGEON: Holland Her ANESTHESIA: Topical anesthesia COMPLICATIONS: None ESTIMATED BLOOD LOSS: Minimal DESCRIPTION OF PROCEDURE: After proper informed consent was obtained, the patient's, a 50 male , received one drop of Tropicamide and one drop of Tetracaine in each eye. The patient was then placed at the YAG laser and using a power of [4.1 ] millijoules and bursts [ 16] right eye and [ 17] left eye were used to fashion a central capsulotomy. The patient tolerated the procedure well without complications. HOLLAND HER MD Jul 11, 2020 07:58
== END 2020-07-11 08:05 ==
LOC: SDC 07:04
PROVIDERS: ATTEND Specialist
DX: H26.493 Other secondary cataract, bilateral (principal); Z88.0 Allergy status to penicillin; Z88.5 Allergy status to narcotic agent; Z87.891 Personal history of nicotine dependence

== ENCOUNTER → 2020-08-19 | Outpatient (CLI) | payer MEDICARE, MEDICAID ==
--- NOTE | 2020-08-19 09:28 | Diagnostic Imaging Report ---
INDICATION: Bone mineral density analysis COMPARISON: None FINDINGS: The bone mineral density of the hips, spine and femoral necks was measured. There are no prior studies available for comparison. The total T score for the spine is 1.2. The total T score for the left hip is -0.8 and for the right hip -0.9. Furthermore, the T score for left femoral neck is -1.0. All of these values are within normal limits. However, the T score for the right femoral neck is -1.4. This does indicate osteopenia. AP Spine L1-L4: [BMD (g/cm2): 1.985] [T-Score: 1.2] [Z-Score: 0.6] [BMD Previous: NA] [BMD % Change: NA] LT Hip Neck: [BMD (g/cm2): 0.942] [T-Score: -1.0] [Z-Score: -0.9] LT Hip Total: [BMD (g/cm2):0.987] [T-Score:-0.8] [Z-Score: -0.9] [BMD Previous: NA] [BMD % Change: NA] RT Hip Neck: [BMD (g/cm2):0.888] [T-Score:-1.4] [Z-Score:-1.3] RT Hip Total: [BMD (g/cm2):0.968] [T-score:-0.9] [Z-Score:-1.1] [BMD Previous:NA] [BMD % Change:NA] *Indicates significant change from prior examination based on 95% confidence level. World Health Organization criteria for BMD interpretation classify patients as Normal (T-score at or above -1.0), Osteopenic (T-score between -1.0 and -2.5) or Osteoporotic (T-score at or below -2.5). LIMITATIONS AND MODIFICATION: None. FRACTURE RISK (FRAX SCORE): The ten year probability of (%): Major Osteoporotic Fracture: [NA] Hip Fracture: [NA] IMPRESSION: 1. There is osteopenia of the right femoral neck. 2. The bone mineral density of the spine, hips and left femoral neck is within normal limits. 3. See below National Osteoporosis Foundation guidelines on when to potentially initiate pharmacologic therapy. Based on the National Osteoporosis Foundation Guidelines, pharmacologic treatment should be initiated in any of the following, unless clinical conditions suggest otherwise: * Any patient with prior fragility fracture of the hip or vertebrae. A spine fracture indicates 5X risk for subsequent spine fracture and 2X risk for subsequent hip fracture. * Osteoporosis (T-score <-2.5). * Postmenopausal women and men age 50 and older with low bone mass/osteopenia (T-score between -1.0 and -2.5) by DXA and 10-year major osteoporotic fracture greater than 20% or a 10-year probability of hip fracture greater than 3%. These fracture risks are supplied above in the FRAX score, if applicable. * Clinician judgement and/or patient preferences may indicate treatment for people with 10-year fracture probabilities above or below these levels. Dictated by: Dictated on workstation # [id number]
== END ==
LOC: RAD 08:30
PROVIDERS: ATTEND Pediatrics
DX: D84.9 Immunodeficiency, unspecified (principal); M85.852 Other specified disorders of bone density and structure, left thigh; M85.851 Other specified disorders of bone density and structure, right thigh; Z78.0 Asymptomatic menopausal state
CPT/HCPCS: 77080

== ENCOUNTER 2020-10-08 10:20 | Emergency (ER) | payer MEDICARE, MEDICAID ==
[~2020-10-08] VITALS: Ht 167.6 cm; Wt 85.7 kg
[2020-10-08 10:51] LABS: BASOPHILS % (AUTO) 0 % (0-10); EOSINOPHILS # (AUTO) 0.1 10^3/uL (0.0-0.3); EOSINOPHILS % (AUTO) 1 % (0-10); HEMATOCRIT 36 % (40-54); HEMOGLOBIN 11.9 g/dL (13.3-17.7); LYMPHOCYTES # (AUTO) 0.2 10^3/uL (1.0-4.0); LYMPHOCYTES % (AUTO) 2 % (12-44); MEAN CORPUSCULAR HEMOGLOBIN 29 pg (25-34); MEAN CORPUSCULAR HGB CONC 33 g/dL (32-36); MEAN CORPUSCULAR VOLUME 89 fL (80-99); MEAN PLATELET VOLUME 11.7 fL (9.0-12.2); MONOCYTES # (AUTO) 0.8 10^3/uL (0.0-1.0); MONOCYTES % (AUTO) 7 % (0-12); NEUTROPHILS # (AUTO) 9.5 10^3/uL (1.8-7.8); NEUTROPHILS % (AUTO) 89 % (42-75); PLATELET COUNT 146 10^3/uL (130-400); WHITE BLOOD COUNT 10.6 10^3/uL (4.3-11.0)
[2020-10-08 10:59] LABS: ALBUMIN 3.9 GM/DL (3.2-4.5); POTASSIUM 4.5 MMOL/L (3.6-5.0)
[2020-10-08 11:00] LABS: CALCIUM 8.7 MG/DL (8.5-10.1)
[2020-10-08 11:03] LABS: BILIRUBIN,TOTAL 0.4 MG/DL (0.1-1.0)
[2020-10-08 11:05] LABS: CREATININE SERUM 2.06 MG/DL (0.60-1.30)
[2020-10-08 11:15] LABS: BAND NEUTROPHILS 1 %; BASOPHILS % (MANUAL) 0 %; EOSINOPHILS % (MANUAL) 0 %; LYMPHOCYTES % (MANUAL) 4 %; MONOCYTES % (MANUAL) 10 %; NEUTROPHILS % (MANUAL) 85 %
[2020-10-08 11:16] LABS: RBC MORPH NORMAL
--- NOTE | 2020-10-08 11:18 | Diagnostic Imaging Report ---
INDICATION: Sepsis. PA and lateral views of the chest are obtained with comparison made to study of 07/23/2019. There has been development of rounded focal airspace disease in lateral aspect of the right upper lobe. Pulmonary vascularity is at the upper limits of normal. There is no evidence of pneumothorax. No significant pleural fluid is seen. IMPRESSION: Focal airspace disease in the lateral basilar aspect of right upper lobe likely represents pneumonia. Clinical correlation and radiographic follow-up would be useful. Dictated by: Dictated on workstation # [id number]
[2020-10-08 11:37] LABS: INR 1.1 (0.8-1.4); PROTHROMBIN TIME PATIENT 14.3 SEC (12.2-14.7)
--- NOTE | 2020-10-08 11:40 | ED General ---
General Chief Complaint: Fever-Adult/Adol Stated Complaint: FEVER Nursing Triage Note: Pt sent to ED from Dr. Sari Harrell's office. Pt is a kidney transplant pt and has had low grade fever pf 99.3 and cough and SOB this morning. Pt reports sore/scratchy throat for five days. Dr. Morris reports pt is negative for COVID and strep throat from Dr. Harrell's office. Nursing Sepsis Screen: No Definite Risk Source of Information: Patient, Other (Dr. Sari Harrell) Exam Limitations: No Limitations History of Present Illness Date Seen by Provider: Oct 08, 2020 Time Seen by Provider: 10:25 Initial Comments This 50-year-old gentleman with history of type 1 diabetes on insulin pump and history of renal transplant presents to the emergency room at the direction of Dr. Sari Harrell from the office. He has had mild elevation in temperature, cough, shortness of breath and sore throat. Symptoms started with scratchy sore throat about 5 days ago and progressed with a cough and shortness of breath this morning. Blood sugar was high this morning as well. Pneumonia was suspected on chest x-ray in the clinic. Influenza and Covid swabs were negative. Allergies and Home Medications Allergies Coded Allergies: codeine (Verified Allergy, Intermediate, NAUSEA, 04/27/15) pt states he has nausea and vomiting from Codeine Penicillins (Unverified Allergy, Mild, 04/24/15) hydrocodone (Verified Adverse Reaction, Unknown, NAUSEA, 11/22/15) oxycodone (Unverified Adverse Reaction, Unknown, 11/22/15) Home Medications Aspirin 81 Mg Tablet.dr, 81 MG PO DAILY, (Reported) Doxycycline Hyclate 100 Mg Tablet, 100 MG PO BID Prescribed by: ONDINA MENDEZ on 10/08/20 1423 Ergocalciferol (Vitamin D2) 1,250 Mcg Capsule, 1,250 MCG PO Fr, (Reported) Fluoxetine HCl 40 Mg Capsule, 40 MG PO DAILY, (Reported) Insulin Aspart 100 Unit/1 Ml Susp, per pump, (Reported) Metoprolol Tartrate 25 Mg Tablet, 12.5 MG PO BID, (Reported) take 1/2 of 25mg tab Mycophenolate Sodium 180 Mg Tablet.dr, 720 MG PO BID, (Reported) take 4 (180mg) tabs Nystatin 100,000 Unit/1 Ml Oral.susp, 5 ML PO PCHS, (Reported) Omeprazole 40 Mg Capsule.dr, 40 MG PO DAILY, (Reported) Polyethylene Glycol 3350 119 Gm Powder, 17 GM PO DAILY PRN for CONSTIPATION-1ST LINE, (Reported) Prednisone 5 Mg Tablet, 5 MG PO DAILY, (Reported) Pregabalin 75 Mg Capsule, 75 MG PO TID, (Reported) Sulfamethoxazole/Trimethoprim 1 Each Tablet, 1 EACH PO MoWeFr, (Reported) Tacrolimus 1 Mg Capsule, 5 MG PO BID, (Reported) take 5 (1mg) Tamsulosin HCl 0.4 Mg Cap, 0.4 MG PO HS, (Reported) Tramadol HCl 50 Mg Tablet, 50 MG PO Q6H PRN for PAIN-MILD (1-4), (Reported) Trazodone HCl 100 Mg Tablet, 100 MG PO HS, (Reported) Valganciclovir HCl 450 Mg Tab, 450 MG PO MoTh, (Reported) Patient Home Medication List Home Medication List Reviewed: Yes Review of Systems Review of Systems Constitutional: see HPI EENTM: no symptoms reported Respiratory: see HPI Cardiovascular: no symptoms reported Gastrointestinal: no symptoms reported Genitourinary: see HPI Musculoskeletal: no symptoms reported Skin: no symptoms reported Psychiatric/Neurological: No Symptoms Reported Hematologic/Lymphatic: No Symptoms Reported Immunological/Allergic: see HPI Past Ibtvnon-Epfjxv-Jheihi Hx Past Med/Social Hx: Reviewed Nursing Past Med/Soc Hx Patient Social History Alcohol Use: Denies Use Smoking Status: Former Smoker Type Used: Cigarettes Former Smoker, Quit: Nov 23, 2003 Recent Infectious Disease Expo: No Recent Hopitalizations: No Immunizations Up To Date Tetanus Booster (TDap): Less than 5yrs PED Vaccines UTD: Yes Date of Pneumonia Vaccine: May 25, 2015 Date of Influenza Vaccine: Apr 20, 2015 Seasonal Allergies Seasonal Allergies: No Past Medical History Surgeries: Yes (Fistula left upper arm) Abdominal, Gallbladder, Kidney Transplant, Orthopedic, Tonsillectomy, Tracheostomy, Vascular Surgery Respiratory: Yes (ON VENT AND TRACH WITH SEVERE DKA IN 2015) Pneumonia, Sleep Apnea Currently Using CPAP: Yes Currently Using BIPAP: No Cardiac: Yes Chronic Edema/Swelling, Heart Murmur, Hypertension, Peripheral Vascular, Valvular Heart Disease Neurological: Yes (BILATERAL FOOT DROP) Neuropathy Reproductive Disorders: No Sexually Transmitted Disease: No HIV/AIDS: No Genitourinary: Yes Renal Failure, Dialysis Gastrointestinal: Yes (PERITONITIS; HAD FEEDING TUBE WITH SEVERE DKA IN 2015) Abdominal Hernia, Gastroesophageal Reflux, Gall Bladder Disease Musculoskeletal: Yes (BILATERAL FOOT DROP) Chronic Back Pain Endocrine: Yes Diabetes, Insulin dep HEENT: Yes Loss of Vision: Left Hearing Impairment: Denies Cancer: No Psychosocial: Yes Depression Integumentary: Yes (DIABETIC FOOT ULCER) Blood Disorders: No Adverse Reaction/Blood Tranf: No Family Medical History FHx: emphysema 19 FATHER Physical Exam Vital Signs Vital Signs - First Documented 10/08/20 10/08/20 10:24 10:25 Temp 37.1 Pulse 81 Resp 20 B/P (MAP) 124/67 (86) Pulse Ox 98 O2 Delivery Room Air O2 Flow Rate 2.00 Capillary Refill : Less Than 3 Seconds Height, Weight, BMI Height: 5'6.00" Weight: 201lbs. 7.0oz. 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 Norm as Tested Skin: Normal Color, Warm/Dry Focused Exam Lactate Level 10/08/20 10:38: Lactic Acid Level 1.08 Lactic Acid Level Laboratory Tests Test 10/08/20 10:38 Lactic Acid Level 1.08 MMOL/L (0.50-2.00) Progress/Results/Core Measures Suspected Sepsis Recent Fever Within 48 Hours: Yes Infection Criteria Present: Suspected New Infection New/Unexplained Altered Menta: No Sepsis Screen: No Definite Risk SIRS Temperature: Pulse: 81 Respiratory Rate: 20 Laboratory Tests 10/08/20 10:38: White Blood Count 10.6 Blood Pressure 124 /67 Mean: 86 10/08/20 10:38: Lactic Acid Level 1.08 Laboratory Tests 10/08/20 10:38: Creatinine 2.06H, Platelet Count 146, Total Bilirubin 0.4 10/08/20 11:13: INR Comment 1.1 Results/Orders Lab Results Laboratory Tests Test 10/08/20 10:38 10/08/20 11:13 10/08/20 11:55 10/08/20 14:07 Range/Units White Blood Count 10.6 4.3-11.0 10^3/uL Red Blood Count 4.09 L 4.30-5.52 10^6/uL Hemoglobin 11.9 L 13.3-17.7 g/dL Hematocrit 36 L 40-54 % Mean Corpuscular Volume 89 80-99 fL Mean Corpuscular Hemoglobin 29 25-34 pg Mean Corpuscular Hemoglobin Concent 33 32-36 g/dL Red Cell Distribution Width 14.0 10.0-14.5 % Platelet Count 146 130-400 10^3/uL Mean Platelet Volume 11.7 9.0-12.2 fL Immature Granulocyte % (Auto) 0 % Neutrophils (%) (Auto) 89 H 42-75 % Lymphocytes (%) (Auto) 2 L 12-44 % Monocytes (%) (Auto) 7 0-12 % Eosinophils (%) (Auto) 1 0-10 % Basophils (%) (Auto) 0 0-10 % Neutrophils # (Auto) 9.5 H 1.8-7.8 10^3/uL Lymphocytes # (Auto) 0.2 L 1.0-4.0 10^3/uL Monocytes # (Auto) 0.8 0.0-1.0 10^3/uL Eosinophils # (Auto) 0.1 0.0-0.3 10^3/uL Basophils # (Auto) 0.0 0.0-0.1 10^3/uL Immature Granulocyte # (Auto) 0.0 0.0-0.1 10^3/uL Neutrophils % (Manual) 85 % Lymphocytes % (Manual) 4 % Monocytes % (Manual) 10 % Eosinophils % (Manual) 0 % Basophils % (Manual) 0 % Band Neutrophils 1 % Blood Morphology Comment NORMAL Sodium Level 134 L 135-145 MMOL/L Potassium Level 4.5 3.6-5.0 MMOL/L Chloride Level 102 98-107 MMOL/L Carbon Dioxide Level 21 21-32 MMOL/L Anion Gap 11 5-14 MMOL/L Blood Urea Nitrogen 32 H 7-18 MG/DL Creatinine 2.06 H 0.60-1.30 MG/DL Estimat Glomerular Filtration Rate 34 BUN/Creatinine Ratio 16 Glucose Level 290 H 70-105 MG/DL Lactic Acid Level 1.08 0.50-2.00 MMOL/L Calcium Level 8.7 8.5-10.1 MG/DL Corrected Calcium 8.8 8.5-10.1 MG/DL Total Bilirubin 0.4 0.1-1.0 MG/DL Aspartate Amino Transf (AST/SGOT) 22 5-34 U/L Alanine Aminotransferase (ALT/SGPT) 19 0-55 U/L Alkaline Phosphatase 82 40-136 U/L C-Reactive Protein High Sensitivity 1.64 H 0.00-0.50 MG/DL Total Protein 6.0 L 6.4-8.2 GM/DL Albumin 3.9 3.2-4.5 GM/DL Procalcitonin 0.64 H <0.10 NG/ML Prothrombin Time 14.3 12.2-14.7 SEC INR Comment 1.1 0.8-1.4 Activated Partial Thromboplast Time 35 24-35 SEC Urine Color YELLOW Urine Clarity CLEAR Urine pH 6.0 5-9 Urine Specific [place] 1.025 H 1.016-1.022 Urine Protein 1+ H NEGATIVE Urine Glucose (UA) TRACE H NEGATIVE Urine Ketones NEGATIVE NEGATIVE Urine Nitrite NEGATIVE NEGATIVE Urine Bilirubin NEGATIVE NEGATIVE Urine Urobilinogen 0.2 < = 1.0 MG/DL Urine Leukocyte Esterase NEGATIVE NEGATIVE Urine RBC (Auto) TRACE-I NEGATIVE Urine RBC RARE /HPF Urine WBC NONE /HPF Urine Squamous Epithelial Cells NONE /HPF Urine Crystals NONE /LPF Urine Bacteria NEGATIVE /HPF Urine Casts NONE /LPF Urine Mucus NEGATIVE /LPF Urine Culture Indicated CULTURE PENDING Glucometer 223 H 70-110 MG/DL My Orders Orders - ONDINA HARPER MD Cbc With Automated Diff (10/08/20 10:24) Comprehensive Metabolic Panel (10/08/20 10:24) Blood Culture (10/08/20 10:24) Sputum Culture (10/08/20 10:24) Urinalysis (10/08/20 10:24) Urine Culture (10/08/20 10:24) Protime With Inr (10/08/20 10:24) Partial Thromboplastin Time (10/08/20 10:24) Ed Iv/Invasive Line Start (10/08/20 10:24) Ed Iv/Invasive Line Start (10/08/20 10:24) Vital Signs Adult Sepsis Patie Q15M (10/08/20 10:24) O2 (10/08/20 10:24) Remove Rings In Anticipation O (10/08/20 10:24) Lactic Acid Analyzer (10/08/20 10:24) Chest Pa/Lat (2 View) (10/08/20 10:24) Hs C Reactive Protein (10/08/20 10:24) Procalcitonin (Pct) (10/08/20 10:24) Manual Differential (10/08/20 10:38) Meropenem (Merrem 1000 Mg) (10/08/20 13:30) Albuterol/Ipra Inhalation Soln (Duoneb I (10/08/20 13:30) Svn Small Volume Nebulizer (10/08/20 13:19) Medications Given in ED Current Medications Medications Dose Ordered Sig/Chiquis Route Start Time Stop Time Status Last Admin Dose Admin Albuterol/ Ipratropium 3 ml ONCE ONCE INH 10/08/20 13:30 10/08/20 13:31 DC 10/08/20 13:30 3 ML Meropenem 1000 mg/ Sterile Water 20 ml @ 240 mls/hr ONCE ONCE IV 10/08/20 13:30 10/08/20 13:34 DC 10/08/20 13:31 240 MLS/HR Vital Signs/I&O 10/08/20 10/08/20 10/08/20 10:24 10:25 15:06 Temp 37.1 37.1 Pulse 81 100 Resp 20 20 B/P (MAP) 124/67 (86) 123/66 (86) Pulse Ox 98 94 100 O2 Delivery Room Air Nasal Cannula Nasal Cannula O2 Flow Rate 2.00 4.00 Capillary Refill : Less Than 3 Seconds Blood Pressure Mean: 86 Progress Note : Progress Note Covid and influenza screens were unremarkable. Patient did exhibit some hypoxia after walking to the exam room and when sleeping. He otherwise did not require oxygen supplementation. He did require 2 to 4 L while asleep. He normally uses BiPAP with supplemental oxygen when he sleeps at home, so this oxygen requirement is not new to him. His work-up did not reveal sepsis criteria. I discussed the case with Dr. Mccoy with the transplant team at [facility]. She did not believe patient required transfer to [facility]. I discussed options with the patient including admission for observation overnight to monitor his status more closely versus monitoring status closely at home. Patient wishes to return home and monitor his oxygen saturations there. He has bronchodilators and supplemental oxygen as well as his BiPAP machine at home. He thinks he can manage well there. He was given a dose of meropenem (selected due to penicillin allergy) and was prescribed doxycycline to continue at home. See discharge instructions for further discussion. Dr. Harrell was updated with status. Diagnostic Imaging Diagonstic Imaging: Xray Plain Films/CT/US/NM/MRI: chest Comments Chest x-ray viewed by me and report reviewed. See report below: NAME: VIRGINIA SORTO [facility] REC#: [id number] PT STATUS: REG ER : 1970 PHYSICIAN: ONDINA HARPER MD ADMIT DATE: 10/08/20/ER Draft Date of Exam:10/08/20 CHEST PA/LAT (2 VIEW) INDICATION: Sepsis. PA and lateral views of the chest are obtained with comparison made to study of 07/23/2019. There has been development of rounded focal airspace disease in lateral aspect of the right upper lobe. Pulmonary vascularity is at the upper limits of normal. There is no evidence of pneumothorax. No significant pleural fluid is seen. IMPRESSION: Focal airspace disease in the lateral basilar aspect of right upper lobe likely represents pneumonia. Clinical correlation and radiographic follow-up would be useful. Dictated on workstation # [id number] Dict: 10/08/20 1116 Trans: 10/08/20 1118 [facility] [id number] Interpreted by: JOSHUA AVILES MD Departure Impression Primary Impression: Right upper lobe pneumonia Qualified Codes: J18.9 - Pneumonia, unspecified organism Additional Impression: History of renal transplant Disposition: 01 HOME, SELF-CARE Condition: Improved Departure-Patient Inst. Decision time for Depature: 14:16 Referrals: SARI HARRELL MD (PCP/Family) Primary Care Physician Patient Instructions: Community-Acquired Pneumonia, Adult (DC) Add. Discharge Instructions: Use your oxygen continuously at 2 L/min. You may increase to 4 L/min, but return to the emergency room if you are requiring more than 4 L/min to keep your oxygen saturations greater than 92%. Use your albuterol inhaler at least 4 times daily and up to 2 puffs every 4 hours as needed for shortness of air or wheezing. Return to the ER if you are requiring more inhaler treatments to manage your symptoms. Be sure to use your BiPAP machine anytime you are sleeping, even if it is for a brief nap. Check your oxygen saturations frequently at home, especially if you feel short of air. Follow-up with your primary care provider soon as possible. You will also need to arrange follow-up x-rays to ensure that the findings on your x-ray clear. Drink plenty of clear liquids to stay well-hydrated. Remain on your previously prescribed medications. Complete the entire course of doxycycline as prescribed. Return to care if you are having worsening symptoms. Call with questions or concerns. All discharge instructions reviewed with patient and/or family. Voiced understanding. Scripts Doxycycline Hyclate (Doxycycline Hyclate) 100 Mg Tablet 100 MG PO BID, #20 TAB 0 Refills Prov: ONDINA HARPER MD 10/08/20 Copy Copies To 1: ASRI HARRELL MD, JOSHUA T MD Oct 08, 2020 11:40
[2020-10-08 12:02] LABS: BILIRUBIN,URINE NEGATIVE (NEGATIVE); CLARITY,URINE CLEAR; COLOR,URINE YELLOW; GLUCOSE, URINE (UA) TRACE (NEGATIVE); KETONES,URINE NEGATIVE (NEGATIVE); LEUKOCYTE ESTERASE ,URINE NEGATIVE (NEGATIVE); NITRITE,URINE NEGATIVE (NEGATIVE); PROTEIN,URINE 1+ (NEGATIVE)
[2020-10-08 12:14] LABS: BACTERIA,URINE NEGATIVE /HPF; RBC,URINE RARE /HPF
[2020-10-08] MEDS ORDERED: MEROPENEM 1,000 MG in WATER (STERILE) FOR INJECTION 20 ML IV ONE (13:30)
[2020-10-08] MEDS ORDERED: RT-ALBUTEROL/IPRATROPIUM 3 ML (DUONEB) VIAL INH ONE (13:30)
[2020-10-08] MEDS ORDERED: DOXY100T2 PO (14:23)
[2020-10-08 15:06] VITALS: BP 123/66
== END 2020-10-08 15:10 | disposition home or self-care (01) ==
LOC: EDUNIT# 10:20 → ER 10:22
DX: J18.9 Pneumonia, unspecified organism (principal); I10 Essential (primary) hypertension; F32.9 Major depressive disorder, single episode, unspecified; K21.9 Gastro-esophageal reflux disease without esophagitis; E10.9 Type 1 diabetes mellitus without complications; Z96.41 Presence of insulin pump (external) (internal); Z88.5 Allergy status to narcotic agent; Z88.0 Allergy status to penicillin; Z94.0 Kidney transplant status; Z87.891 Personal history of nicotine dependence; Z79.82 Long term (current) use of aspirin; Z79.52 Long term (current) use of systemic steroids
CPT/HCPCS: 36415; 71046; 80053; 81000; 82947; 83605; 84145; 85007; 85027; 85610; 85730; 86141; 87040; 87088

== ENCOUNTER 2020-11-27 05:57 | Emergency (ER) | payer MEDICARE, MEDICAID ==
[~2020-11-27] VITALS: Ht 167.7 cm; Wt 85.7 kg
[~2020-11-27 05:57] MED LIST changes: +DOXY100T2 PO; +ERGO1250 PO; -ERGO50006 PO; -OMEP40CA27 PO; +OMEP40CA6 PO
[2020-11-27] MEDS ORDERED: ASPIRIN 81 MG CHEW (CHILDREN'S ASA) PO ONE (06:45)
--- NOTE | 2020-11-27 06:47 | ED Chest Pain ---
General Chief Complaint: Chest Wall Stated Complaint: LEFT SIDE PAIN,FELL AT HOME YESTERDAY Source: patient Exam Limitations: no limitations History of Present Illness Date Seen by Provider: Nov 27, 2020 Time Seen by Provider: 06:26 Initial Comments Patient to the ER by private conveyance from home with his with chief complaint that yesterday when he was out working on the chicken coop his came out to check on him and found him sitting on the ground. He was not responsive and his blood sugar monitor read low. He was brought in to the house given some glucagon. When he started to come to he was complaining of left- sided chest pain. No cough shortness of air. He says is worse with movement or lifting his left arm. He does not recall falling. He denies a history of heart disease. Is been told over the last visit he has some COPD but does not take anything for it. He is not having any shortness of air or wheezing or fevers. Is not having any nausea sweats or diarrhea. He is a brittle diabetic with an insulin pump and history of kidney transplant secondary to diabetes. He quit smoking 16+ years ago. He has not taken anything for the pain. EF of 50% on echocardiogram from 2016. History of bicuspid aortic valve. Diabetes type 2, followed by Dr. Charles and Jose Luis and cardiology at [place]. Catheterization [address] [place] [address] Pang showed normal coronary arteries. Chronic heart failure. Allergies and Home Medications Allergies Coded Allergies: codeine (Verified Allergy, Intermediate, NAUSEA, 04/27/15) pt states he has nausea and vomiting from Codeine Penicillins (Unverified Allergy, Mild, 04/24/15) hydrocodone (Verified Adverse Reaction, Unknown, NAUSEA, 11/22/15) oxycodone (Unverified Adverse Reaction, Unknown, 11/22/15) Home Medications Aspirin 81 Mg Tablet., 81 MG PO DAILY, (Reported) Doxycycline Hyclate 100 Mg Tablet, 100 MG PO BID Prescribed by: ONDINA MENDEZ on 10/08/20 1423 Ergocalciferol (Vitamin D2) 1,250 Mcg Capsule, 1,250 MCG PO Fr, (Reported) Fluoxetine HCl 40 Mg Capsule, 40 MG PO DAILY, (Reported) Insulin Aspart 100 Unit/1 Ml Susp, per pump, (Reported) Metoprolol Tartrate 25 Mg Tablet, 12.5 MG PO BID, (Reported) take 1/2 of 25mg tab Mycophenolate Sodium 180 Mg Tablet.dr, 720 MG PO BID, (Reported) take 4 (180mg) tabs Nystatin 100,000 Unit/1 Ml Oral.susp, 5 ML PO PCHS, (Reported) Omeprazole 40 Mg Capsule.dr, 40 MG PO DAILY, (Reported) Polyethylene Glycol 3350 119 Gm Powder, 17 GM PO DAILY PRN for CONSTIPATION-1ST LINE, (Reported) Prednisone 5 Mg Tablet, 5 MG PO DAILY, (Reported) Pregabalin 75 Mg Capsule, 75 MG PO TID, (Reported) Sulfamethoxazole/Trimethoprim 1 Each Tablet, 1 EACH PO MoWeFr, (Reported) Tacrolimus 1 Mg Capsule, 5 MG PO BID, (Reported) take 5 (1mg) Tamsulosin HCl 0.4 Mg Cap, 0.4 MG PO HS, (Reported) Tramadol HCl 50 Mg Tablet, 50 MG PO Q6H PRN for PAIN-MILD (1-4), (Reported) Trazodone HCl 100 Mg Tablet, 100 MG PO HS, (Reported) Valganciclovir HCl 450 Mg Tab, 450 MG PO MoTh, (Reported) Patient Home Medication List Home Medication List Reviewed: Yes Review of Systems Review of Systems Constitutional: No chills, No diaphoresis EENTM: No Blurred Vision, No Double Vision Respiratory: Denies Cough, Denies Shortness of Air Cardiovascular: Chest Pain; Denies Lightheadedness Gastrointestinal: Denies Abdominal Pain, Denies Constipated, Denies Diarrhea, Denies Nausea Genitourinary: Denies Burning, Denies Discharge Musculoskeletal: No back pain, No joint pain Skin: No pruritus, No rash Psychiatric/Neurological: Denies Anxiety, Denies Depressed All Other Systems Reviewed Negative Unless Noted: Yes Past Owivlqo-Iyuylh-Vbcjsd Hx Patient Social History Tobacco Use?: No Smoking Status: Former Smoker Use of E-Cig and/or Vaping dev: No Substance use?: No Alcohol Use?: No Pt feels they are or have been: No Immunizations Up To Date Tetanus Booster (TDap): Less than 5yrs PED Vaccines UTD: Yes Seasonal Allergies Seasonal Allergies: No Past Medical History Surgeries: Yes (Fistula left upper arm) Abdominal, Gallbladder, Kidney Transplant, Orthopedic, Tonsillectomy, Tracheostomy, Vascular Surgery Respiratory: Yes (ON VENT AND TRACH WITH SEVERE DKA IN 2015) Pneumonia, Sleep Apnea Currently Using CPAP: Yes Currently Using BIPAP: No Cardiac: Yes Chronic Edema/Swelling, Heart Murmur, Hypertension, Peripheral Vascular, Valvular Heart Disease Neurological: Yes (BILATERAL FOOT DROP) Neuropathy Reproductive Disorders: No Sexually Transmitted Disease: No HIV/AIDS: No Genitourinary: Yes Renal Failure, Dialysis Gastrointestinal: Yes (PERITONITIS; HAD FEEDING TUBE WITH SEVERE DKA IN 2014) Abdominal Hernia, Gastroesophageal Reflux, Gall Bladder Disease Musculoskeletal: Yes (BILATERAL FOOT DROP) Chronic Back Pain Endocrine: Yes Diabetes, Insulin dep HEENT: Yes Loss of Vision: Left Hearing Impairment: Denies Cancer: No Psychosocial: Yes Depression Integumentary: Yes (DIABETIC FOOT ULCER) Blood Disorders: No Adverse Reaction/Blood Tranf: No Family Medical History FHx: emphysema 19 FATHER Physical Exam Vital Signs Vital Signs - First Documented 11/27/20 06:08 Temp 36.9 Pulse 87 Resp 16 B/P (MAP) 145/100 (115) O2 Delivery Room Air Capillary Refill : Height, Weight, BMI Height: 5'6.00" Weight: 201lbs. 7.0oz. 91.352309xl; 30.00 BMI Method:Stated General Appearance: Anxious, Chronically ill, Mild Distress HEENT: PERRL/EOMI, Pharynx Normal, Moist Mucous Membranes Neck: Full Range of Motion, Normal Inspection, Non Tender, Supple Respiratory: No Chest Non Tender (Left anterior chest reproduces some mild pain); Lungs Clear, Normal Breath Sounds, No Accessory Muscle Use, No Respiratory Distress Cardiovascular: Regular Rate, Rhythm, No Edema, Normal Peripheral Pulses Gastrointestinal: Normal Bowel Sounds, Non Tender, Soft Extremity: Non Tender, No Pedal Edema Neurologic/Psychiatric: Alert, Oriented x3, No Motor/Sensory Deficits Skin: Normal Color, Warm/Dry Progress/Results/Core Measures Results/Orders Lab Results Laboratory Tests Test 11/27/20 06:11 11/27/20 06:45 11/27/20 09:33 Range/Units Glucometer 113 H 70-110 MG/DL White Blood Count 6.4 4.3-11.0 10^3/uL Red Blood Count 4.38 4.30-5.52 10^6/uL Hemoglobin 12.4 L 13.3-17.7 g/dL Hematocrit 39 L 40-54 % Mean Corpuscular Volume 89 80-99 fL Mean Corpuscular Hemoglobin 28 25-34 pg Mean Corpuscular Hemoglobin Concent 32 32-36 g/dL Red Cell Distribution Width 14.7 H 10.0-14.5 % Platelet Count 169 130-400 10^3/uL Mean Platelet Volume 10.9 9.0-12.2 fL Immature Granulocyte % (Auto) 0 % Neutrophils (%) (Auto) 80 H 42-75 % Lymphocytes (%) (Auto) 8 L 12-44 % Monocytes (%) (Auto) 10 0-12 % Eosinophils (%) (Auto) 1 0-10 % Basophils (%) (Auto) 0 0-10 % Neutrophils # (Auto) 5.1 1.8-7.8 10^3/uL Lymphocytes # (Auto) 0.5 L 1.0-4.0 10^3/uL Monocytes # (Auto) 0.7 0.0-1.0 10^3/uL Eosinophils # (Auto) 0.1 0.0-0.3 10^3/uL Basophils # (Auto) 0.0 0.0-0.1 10^3/uL Immature Granulocyte # (Auto) 0.0 0.0-0.1 10^3/uL Prothrombin Time 13.3 12.2-14.7 SEC INR Comment 1.0 0.8-1.4 Activated Partial Thromboplast Time 32 24-35 SEC D-Dimer 0.51 H 0.00-0.49 UG/ML Sodium Level 139 135-145 MMOL/L Potassium Level 5.1 H 3.6-5.0 MMOL/L Chloride Level 107 98-107 MMOL/L Carbon Dioxide Level 23 21-32 MMOL/L Anion Gap 9 5-14 MMOL/L Blood Urea Nitrogen 44 H 7-18 MG/DL Creatinine 2.36 H 0.60-1.30 MG/DL Estimat Glomerular Filtration Rate 29 BUN/Creatinine Ratio 19 Glucose Level 116 H 70-105 MG/DL Calcium Level 9.4 8.5-10.1 MG/DL Corrected Calcium 9.2 8.5-10.1 MG/DL Magnesium Level 2.3 1.6-2.4 MG/DL Total Bilirubin 0.4 0.1-1.0 MG/DL Aspartate Amino Transf (AST/SGOT) 21 5-34 U/L Alanine Aminotransferase (ALT/SGPT) 23 0-55 U/L Alkaline Phosphatase 97 40-136 U/L Myoglobin 294.6 H 10.0-92.0 NG/ML Troponin I < 0.028 < 0.028 <0.028 NG/ML B-Type Natriuretic Peptide 268.3 H <100.0 PG/ML Total Protein 6.9 6.4-8.2 GM/DL Albumin 4.2 3.2-4.5 GM/DL My Orders Orders - NOE MUNOZ Ekg Tracing (11/27/20 06:19) Continuous Ekg Monitoring (11/27/20 06:19) Accucheck Stat ONCE (11/27/20 06:34) Cbc With Automated Diff (11/27/20 06:38) Magnesium (11/27/20 06:38) Comprehensive Metabolic Panel (11/27/20 06:38) Myoglobin Serum (11/27/20 06:38) Protime With Inr (11/27/20 06:38) Partial Thromboplastin Time (11/27/20 06:38) O2 (11/27/20 06:38) Lipid Panel (11/28/20 06:00) Ed Iv/Invasive Line Start (11/27/20 06:38) BNP (11/27/20 06:38) Fibrin Degradation Products (11/27/20 06:38) Troponin I (11/27/20 06:38) Nitroglycerin 0.4 Mg Btl 25's (Nitrostat (11/27/20 06:45) Aspirin Chewable Tablet (Baby Aspirin Ch (11/27/20 06:45) Ribs, Left 2-3 Views (11/27/20 06:38) Troponin I (11/27/20 09:45) Hydrocodone/Apap 5/325 Tablet (Lortab 5 (11/27/20 08:00) Medications Given in ED Current Medications Medications Dose Ordered Sig/Chiquis Route Start Time Stop Time Status Last Admin Dose Admin Acetaminophen/ Hydrocodone Bitart 1 ea ONCE ONCE PO 11/27/20 08:00 11/27/20 08:01 DC 11/27/20 08:13 1 EA Aspirin 324 mg ONCE ONCE PO 11/27/20 06:45 11/27/20 06:46 DC 7/22/21 07:11 324 MG Nitroglycerin 0.4 mg UD PRN SL 11/27/20 06:45 11/27/20 07:27 0.4 MG Vital Signs/I&O 11/27/20 06:08 Temp 36.9 Pulse 87 Resp 16 B/P (MAP) 145/100 (115) O2 Delivery Room Air FSBG Bedside Testing Finger Stick Blood Glucose: 113 Blood Glucose Action Taken: DR. MUNOZ NOTIFIED. Progress Progress Note #1: Time: 06:48 Progress Note We will start with some aspirin and nitroglycerin. We will get some x-rays focusing on the ribs looking for fracture. Given his hypoglycemic episode would like to rule out possibility of an MO 12 hours later. Progress Note #2: Time: 07:48 Progress Note The patient has had no improvement with 2 doses of nitroglycerin. We will give him some [place] 5 x 325. We will do a delta troponin after discussing the case with Dr. 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 Initial ECG Impression Date: Nov 27, 2020 Initial ECG Impression Time: :22 Initial ECG Rate: 85 Initial ECG Rhythm: Normal Sinus Initial ECG Intervals: Normal Initial ECG Impression: Normal, Nonspecific Changes Initial ECG Comparisson: Unchanged Comment Normal sinus rhythm with some nondiagnostic ST elevation in lead V2, V3. These findings are preserved from 2016 EKG. Diagnostic Imaging Diagonstic Imaging: Xray Plain Films/CT/US/NM/MRI: chest Comments [facility] [place] [place] NAME: [facility] REC#: [id number] PT STATUS: REG ER : 1970 PHYSICIAN: NOE MUNOZ MD ADMIT DATE: 11/27/20/ER Draft Date of Exam:11/27/20 RIBS, LEFT 2-3 VIEWS Exam: Left rib radiographs Exam date: 11/27/2000 COMPARISON: Chest radiograph 10/08/2020 HISTORY: Injury to the left ribs with pain. TECHNIQUE: 3 views of left ribs. FINDINGS: There is no acute fracture, dislocation, or destructive osseous process. Specifically, no displaced rib fracture is seen. Visualized lungs are clear. IMPRESSION: No displaced rib fracture. Dictated on workstation # [id number] Dict: 11/27/2014 Trans: 11/27/20 0719 [facility] [id number] Interpreted by: JUSTEN MANZO DO Electronically signed by: Reviewed: Reviewed by Me Departure Impression Primary Impression: Hypoglycemia associated with diabetes Additional Impression: Bruised ribs Qualified Codes: S20.212A - Contusion of left front wall of thorax, initial encounter Disposition: HOME, SELF-CARE Condition: Stable Departure-Patient Inst. Decision time for Depature: 10:28 Referrals: SARI HARRELL MD (PCP/Family) Primary Care Physician Patient Instructions: Minor Contusion ED, Low Blood Sugar, Adult ED Add. Discharge Instructions: Tylenol 1000 mg every 8 hours as necessary for pain. Muscle creams and heat applied to your left ribs. If not seeing some improvement in the first week then follow-up with your primary care doctor. Call your heart doctor and request a follow-up appointment in the next 1 to 2 weeks for recheck.. All discharge instructions reviewed with patient and/or family. Voiced understanding. NOE MUNOZ Nov 27, 2020 06:47
[2020-11-27 06:53] LABS: BASOPHILS % (AUTO) 0 % (0-10); EOSINOPHILS # (AUTO) 0.1 10^3/uL (0.0-0.3); EOSINOPHILS % (AUTO) 1 % (0-10); HEMATOCRIT 39 % (40-54); HEMOGLOBIN 12.4 g/dL (13.3-17.7); LYMPHOCYTES # (AUTO) 0.5 10^3/uL (1.0-4.0); LYMPHOCYTES % (AUTO) 8 % (12-44); MEAN CORPUSCULAR HEMOGLOBIN 28 pg (25-34); MEAN CORPUSCULAR HGB CONC 32 g/dL (32-36); MEAN CORPUSCULAR VOLUME 89 fL (80-99); MEAN PLATELET VOLUME 10.9 fL (9.0-12.2); MONOCYTES # (AUTO) 0.7 10^3/uL (0.0-1.0); MONOCYTES % (AUTO) 10 % (0-12); NEUTROPHILS # (AUTO) 5.1 10^3/uL (1.8-7.8); NEUTROPHILS % (AUTO) 80 % (42-75); PLATELET COUNT 169 10^3/uL (130-400); WHITE BLOOD COUNT 6.4 10^3/uL (4.3-11.0)
[2020-11-27 07:01] LABS: ALBUMIN 4.2 GM/DL (3.2-4.5); POTASSIUM 5.1 MMOL/L (3.6-5.0)
[2020-11-27 07:03] LABS: CALCIUM 9.4 MG/DL (8.5-10.1)
[2020-11-27 07:04] LABS: TOTAL PROTEIN 6.9 GM/DL (6.4-8.2)
[2020-11-27 07:06] LABS: BILIRUBIN,TOTAL 0.4 MG/DL (0.1-1.0)
[2020-11-27 07:08] LABS: CREATININE SERUM 2.36 MG/DL (0.60-1.30)
[2020-11-27 07:10] LABS: PROTHROMBIN TIME PATIENT 13.3 SEC (12.2-14.7)
[2020-11-27 07:11] LABS: MAGNESIUM 2.3 MG/DL (1.6-2.4)
[2020-11-27] MEDS: NITROGLYCERIN 0.4 MG SL TABS BTL 25'S SL PRN ×2 (07:12→07:27)
--- NOTE | 2020-11-27 07:20 | Diagnostic Imaging Report ---
Exam: Left rib radiographs Exam date: 11/27/2000 COMPARISON: Chest radiograph 10/08/2020 HISTORY: Injury to the left ribs with pain. TECHNIQUE: 3 views of left ribs. FINDINGS: There is no acute fracture, dislocation, or destructive osseous process. Specifically, no displaced rib fracture is seen. Visualized lungs are clear. IMPRESSION: No displaced rib fracture. Dictated by: Dictated on workstation # [id number]
[2020-11-27] MEDS ORDERED: HYDROcodone/APAP 5 MG/325 MG (LORTAB) TAB PO ONE (08:00)
[2020-11-27 10:50] VITALS: BP 127/58
== END 2020-11-27 10:51 | disposition home or self-care (01) ==
LOC: EDUNIT# 05:57 → ER 06:01
DX: S20.212A Contusion of left front wall of thorax, initial encounter (principal); E11.649 Type 2 diabetes mellitus with hypoglycemia without coma; G47.30 Sleep apnea, unspecified; I10 Essential (primary) hypertension; K21.9 Gastro-esophageal reflux disease without esophagitis; F32.9 Major depressive disorder, single episode, unspecified; Z87.891 Personal history of nicotine dependence; Z79.52 Long term (current) use of systemic steroids; Z79.82 Long term (current) use of aspirin; Z79.4 Long term (current) use of insulin; Z79.899 Other long term (current) drug therapy; X50.1XXA Overexertion from prolonged static or awkward postures, initial encounter
CPT/HCPCS: 36415; 71100; 80053; 82947; 83735; 83874; 83880; 84484; 85025; 85379; 85610; 85730; 93005

== ENCOUNTER 2020-12-31 11:14 | Emergency (ER) | payer MEDICARE, MEDICAID ==
[~2020-12-31] VITALS: Ht 167 cm; Wt 83.9 kg
--- NOTE | 2020-12-31 11:55 | ED General ---
General Stated Complaint: ABD LABS, U/S FOR KIDNEY History of Present Illness Date Seen by Provider: Dec 31, 2020 Time Seen by Provider: 11:43 Initial Comments Stef is a 50-year-old with a history of insulin-dependent diabetes mellitus who presents to the emergency department today with a chief complaint of abnormal laboratory evaluation earlier at [facility]. Patient has a history of end-stage renal disease on hemodialysis, last dialysis was about 18 months ago. He follows at for his renal failure with Dr. Harrison. Reportedly he went to [facility] this morning to have labs drawn and was found to have a creatinine of about 4. Patient states his normal is 1.5-2. He states he has had a little less urinary flow today than normal but denies any dysuria, urgency or freque ncy. He tells me he has 1 functioning kidney, his right kidney. No recent fevers, chills, cough or congestion. No known Covid exposures. He is vaccinated. Has had quite a bit of diarrhea he states today. No abdominal pain. No leg swelling. No other complaints of illness or injury. Patient reports that requested he have a renal ultrasound today to further evaluate you wait the blood flow to his right kidney as he had a procedure last to "open the blood flow to my right kidney". All other review of systems reviewed and negative except as stated above. Associated Systoms: Denies Symptoms Allergies and Home Medications Allergies Coded Allergies: codeine (Verified Allergy, Intermediate, NAUSEA, 04/27/15) pt states he has nausea and vomiting from Codeine Penicillins (Unverified Allergy, Mild, 04/24/15) hydrocodone (Verified Adverse Reaction, Unknown, NAUSEA, 11/22/15) oxycodone (Unverified Adverse Reaction, Unknown, 11/22/15) Home Medications Aspirin 81 Mg Tablet., 81 MG PO DAILY, (Reported) Doxycycline Hyclate 100 Mg Tablet, 100 MG PO BID Prescribed by: ONDINA MENDEZ on 10/08/20 1423 Ergocalciferol (Vitamin D2) 1,250 Mcg Capsule, 1,250 MCG PO Fr, (Reported) Fluoxetine HCl 40 Mg Capsule, 40 MG PO DAILY, (Reported) Insulin Aspart 100 Unit/1 Ml Susp, per pump, (Reported) Metoprolol Tartrate 25 Mg Tablet, 12.5 MG PO BID, (Reported) take 1/2 of 25mg tab Mycophenolate Sodium 180 Mg Tablet.dr, 720 MG PO BID, (Reported) take 4 (180mg) tabs Nystatin 100,000 Unit/1 Ml Oral.susp, 5 ML PO PCHS, (Reported) Omeprazole 40 Mg Capsule.dr, 40 MG PO DAILY, (Reported) Polyethylene Glycol 3350 119 Gm Powder, 17 GM PO DAILY PRN for CONSTIPATION-1ST LINE, (Reported) Prednisone 5 Mg Tablet, 5 MG PO DAILY, (Reported) Pregabalin 75 Mg Capsule, 75 MG PO TID, (Reported) Sulfamethoxazole/Trimethoprim 1 Each Tablet, 1 EACH PO MoWeFr, (Reported) Tacrolimus 1 Mg Capsule, 5 MG PO BID, (Reported) take 5 (1mg) Tamsulosin HCl 0.4 Mg Cap, 0.4 MG PO HS, (Reported) Tramadol HCl 50 Mg Tablet, 50 MG PO Q6H PRN for PAIN-MILD (1-4), (Reported) Trazodone HCl 100 Mg Tablet, 100 MG PO HS, (Reported) Valganciclovir HCl 450 Mg Tab, 450 MG PO MoTh, (Reported) Patient Home Medication List Home Medication List Reviewed: Yes Review of Systems Review of Systems Constitutional: see HPI EENTM: no symptoms reported Respiratory: no symptoms reported Cardiovascular: no symptoms reported Gastrointestinal: no symptoms reported Genitourinary: decreased output Musculoskeletal: no symptoms reported Skin: no symptoms reported All Other Systems Reviewed Negative Unless Noted: Yes Past Kbhjpjv-Ugpxlc-Tvgbbd Hx Immunizations Up To Date Tetanus Booster (TDap): Less than 5yrs PED Vaccines UTD: Yes Seasonal Allergies Seasonal Allergies: No Past Medical History Surgeries: Yes (Fistula left upper arm) Abdominal, Gallbladder, Kidney Transplant, Orthopedic, Tonsillectomy, Tracheostomy, Vascular Surgery Respiratory: Yes (ON VENT AND TRACH WITH SEVERE DKA IN 2015) Pneumonia, Sleep Apnea Currently Using CPAP: Yes Currently Using BIPAP: No Cardiac: Yes Chronic Edema/Swelling, Heart Murmur, Hypertension, Peripheral Vascular, Valvular Heart Disease Neurological: Yes (BILATERAL FOOT DROP) Neuropathy Reproductive Disorders: No Sexually Transmitted Disease: No HIV/AIDS: No Genitourinary: Yes Renal Failure, Dialysis Gastrointestinal: Yes (PERITONITIS; HAD FEEDING TUBE WITH SEVERE DKA IN 2015) Abdominal Hernia, Gastroesophageal Reflux, Gall Bladder Disease Musculoskeletal: Yes (BILATERAL FOOT DROP) Chronic Back Pain Endocrine: Yes Diabetes, Insulin dep HEENT: Yes Loss of Vision: Left Hearing Impairment: Denies Cancer: No Psychosocial: Yes Depression Integumentary: Yes (DIABETIC FOOT ULCER) Blood Disorders: No Adverse Reaction/Blood Tranf: No Family Medical History FHx: emphysema 19 FATHER Physical Exam Vital Signs Vital Signs - First Documented 12/31/20 11:56 Temp 36.0 Pulse 74 Resp 18 B/P (MAP) 107/67 (80) Pulse Ox 98 Capillary Refill : Height, Weight, BMI Height: 5'6.00" Weight: 201lbs. 7.0oz. 91.864897va; 30.00 BMI Method:Stated General Appearance: No Apparent Distress, WD/WN HEENT: PERRL/EOMI Respiratory: Lungs Clear, Normal Breath Sounds, No Accessory Muscle Use, No Respiratory Distress Cardiovascular: Regular Rate, Rhythm, Gallop/S3 Gastrointestinal: Non Tender, Soft Extremity: Normal Inspection, Normal Range of Motion Neurologic/Psychiatric: Alert, Oriented x3, No Motor/Sensory Deficits Progress/Results/Core Measures Suspected Sepsis SIRS Temperature: Pulse: Respiratory Rate: Laboratory Tests 12/31/20 11:57: White Blood Count 5.6 Blood Pressure / Mean: Laboratory Tests 12/31/20 11:57: Creatinine 4.34H, Platelet Count 180 Results/Orders Lab Results Laboratory Tests Test 12/31/20 11:57 Range/Units White Blood Count 5.6 4.3-11.0 10^3/uL Red Blood Count 4.33 4.30-5.52 10^6/uL Hemoglobin 12.6 L 13.3-17.7 g/dL Hematocrit 39 L 40-54 % Mean Corpuscular Volume 89 80-99 fL Mean Corpuscular Hemoglobin 29 25-34 pg Mean Corpuscular Hemoglobin Concent 33 32-36 g/dL Red Cell Distribution Width 14.6 H 10.0-14.5 % Platelet Count 180 130-400 10^3/uL Mean Platelet Volume 11.5 9.0-12.2 fL Immature Granulocyte % (Auto) 0 % Neutrophils (%) (Auto) 81 H 42-75 % Lymphocytes (%) (Auto) 9 L 12-44 % Monocytes (%) (Auto) 9 0-12 % Eosinophils (%) (Auto) 1 0-10 % Basophils (%) (Auto) 0 0-10 % Neutrophils # (Auto) 4.6 1.8-7.8 10^3/uL Lymphocytes # (Auto) 0.5 L 1.0-4.0 10^3/uL Monocytes # (Auto) 0.5 0.0-1.0 10^3/uL Eosinophils # (Auto) 0.1 0.0-0.3 10^3/uL Basophils # (Auto) 0.0 0.0-0.1 10^3/uL Immature Granulocyte # (Auto) 0.0 0.0-0.1 10^3/uL Sodium Level 134 L 135-145 MMOL/L Potassium Level 4.1 3.6-5.0 MMOL/L Chloride Level 107 98-107 MMOL/L Carbon Dioxide Level 17 L 21-32 MMOL/L Anion Gap 10 5-14 MMOL/L Blood Urea Nitrogen 52 H 7-18 MG/DL Creatinine 4.34 H 0.60-1.30 MG/DL Estimat Glomerular Filtration Rate 15 BUN/Creatinine Ratio 12 Glucose Level 191 H 70-105 MG/DL Calcium Level 9.0 8.5-10.1 MG/DL My Orders Orders - PAULINE DENNIS MD Renal Bilateral [id number] (12/31/20 11:51) Ekg Tracing (12/31/20 13:14) Ns Iv 500 Ml (Sodium Chloride 0.9%) (12/31/20 13:30) Vital Signs/I&O 12/31/20 11:56 Temp 36.0 Pulse 74 Resp 18 B/P (MAP) 107/67 (80) Pulse Ox 98 Capillary Refill : Progress Note : Time: 13:26 Progress Note Case discussed with CLAUDIA Myers transplant center nurse. She recommends half a liter of normal saline. She will discuss with the on-call phone specialist and if there are any changes to be made will contact me back. She will call Stef and speak with him about getting repeat renal function studies tomorrow. I have talked to him and conveyed this information. He is comfortable with the plan of care. All questions are sought and answered. Patient is stable for discharge. ECG Initial ECG Impression Date: Dec 31, 2020 Initial ECG Impression Time: 11:59 Initial ECG Rate: 70 Initial ECG Rhythm: Normal Sinus Initial ECG Intervals: Normal Initial ECG Impression: Normal Departure Impression Primary Impression: Acute on chronic renal failure Qualified Codes: N17.9 - Acute kidney failure, unspecified; N18.9 - Chronic kidney disease, unspecified Disposition: 01 HOME, SELF-CARE Condition: Stable Departure-Patient Inst. Decision time for Depature: 13:27 Referrals: SARI HARRELL MD (PCP/Family) Primary Care Physician Patient Instructions: Kidney Disease Diet (For People Not on Dialysis) Add. Discharge Instructions: Continue your home medications as previously prescribed. Drink fluids to stay well-hydrated. Lucia will contact you later today or in the morning with further instructions on repeating labs tomorrow. If you develop any fever, pain, vomiting or any other emergent concerning symptoms please come back to the emergency room for reevaluation. PAULINE DENNIS MD Dec 31, 2020 11:55
[2020-12-31 12:00] LABS: BASOPHILS % (AUTO) 0 % (0-10); EOSINOPHILS # (AUTO) 0.1 10^3/uL (0.0-0.3); EOSINOPHILS % (AUTO) 1 % (0-10); HEMATOCRIT 39 % (40-54); HEMOGLOBIN 12.6 g/dL (13.3-17.7); LYMPHOCYTES # (AUTO) 0.5 10^3/uL (1.0-4.0); LYMPHOCYTES % (AUTO) 9 % (12-44); MEAN CORPUSCULAR HEMOGLOBIN 29 pg (25-34); MEAN CORPUSCULAR HGB CONC 33 g/dL (32-36); MEAN CORPUSCULAR VOLUME 89 fL (80-99); MEAN PLATELET VOLUME 11.5 fL (9.0-12.2); MONOCYTES # (AUTO) 0.5 10^3/uL (0.0-1.0); MONOCYTES % (AUTO) 9 % (0-12); NEUTROPHILS # (AUTO) 4.6 10^3/uL (1.8-7.8); NEUTROPHILS % (AUTO) 81 % (42-75); PLATELET COUNT 180 10^3/uL (130-400); WHITE BLOOD COUNT 5.6 10^3/uL (4.3-11.0)
[2020-12-31 12:14] LABS: POTASSIUM 4.1 MMOL/L (3.6-5.0)
[2020-12-31 12:20] LABS: CREATININE SERUM 4.34 MG/DL (0.60-1.30)
[2020-12-31] MEDS ORDERED: NS IV 500 ML 500 ML IV SCH (13:30)
[2020-12-31 13:54] LABS: BILIRUBIN,URINE NEGATIVE (NEGATIVE); CLARITY,URINE CLEAR; COLOR,URINE YELLOW; GLUCOSE, URINE (UA) NEGATIVE (NEGATIVE); KETONES,URINE NEGATIVE (NEGATIVE); LEUKOCYTE ESTERASE ,URINE TRACE (NEGATIVE); NITRITE,URINE NEGATIVE (NEGATIVE); PH,URINE 5.5 (5-9); PROTEIN,URINE 1+ (NEGATIVE)
--- NOTE | 2020-12-31 13:58 | Diagnostic Imaging Report ---
PROCEDURE: US Renal Bilateral. TECHNIQUE: Multiple real-time grayscale images were obtained over the kidneys in various projections bilaterally. INDICATION: Recent renal procedure at [facility]. Patient has renal transplant. FINDINGS: The cahto right kidney measures 7.7 x 4.1 x 4.7 cm, and the cahto left kidney measures 8.7 x 3.8 x 4.6 cm. Both cahto kidneys are small and show some cortical thinning. No hydronephrosis is seen. There is a renal transplant in the right iliac fossa measuring 9.4 x 3.9 x 4.0 cm. The renal transplant shows normal cortical thickness and echogenicity. No calculi or hydronephrosis is seen. Bladder is unremarkable. The ureteral jets were not visualized. IMPRESSION: 1. Atrophic cahto kidneys. 2. Right iliac fossa renal transplant. No significant abnormality is seen. Dictated by: Dictated on workstation # [id number]
[2020-12-31 14:05] LABS: RBC,URINE RARE /HPF
[2020-12-31 14:06] LABS: BACTERIA,URINE NEGATIVE /HPF; HYALINE CASTS, URINE RARE /LPF; SQUAMOUS EPITHELIAL CELL,UR RARE /HPF
[2020-12-31 14:40] VITALS: BP 147/83
== END 2020-12-31 14:40 | disposition home or self-care (01) ==
LOC: EDUNIT# 11:14 → ER 11:16
DX: N17.9 Acute kidney failure, unspecified (principal); I12.9 Hypertensive chronic kidney disease with stage 1 through stage 4 chronic kidney disease, or unspecified chronic kidney disease; E11.22 Type 2 diabetes mellitus with diabetic chronic kidney disease; N18.9 Chronic kidney disease, unspecified; G47.30 Sleep apnea, unspecified; K21.9 Gastro-esophageal reflux disease without esophagitis; F32.9 Major depressive disorder, single episode, unspecified; Z79.4 Long term (current) use of insulin; Z79.82 Long term (current) use of aspirin; Z79.899 Other long term (current) drug therapy; Z79.52 Long term (current) use of systemic steroids
CPT/HCPCS: 36415; 76770; 80048; 81000; 85025; 87088; 93005

== ENCOUNTER 2021-02-20 13:32 | Emergency (ER) | payer MEDICARE, MEDICAID ==
[~2021-02-20] VITALS: Ht 167.7 cm; Wt 82.7 kg
[2021-02-20 14:08] LABS: BASOPHILS % (AUTO) 0 % (0-10); EOSINOPHILS # (AUTO) 0.1 10^3/uL (0.0-0.3); EOSINOPHILS % (AUTO) 1 % (0-10); HEMATOCRIT 36 % (40-54); HEMOGLOBIN 11.5 g/dL (13.3-17.7); LYMPHOCYTES # (AUTO) 0.4 10^3/uL (1.0-4.0); LYMPHOCYTES % (AUTO) 6 % (12-44); MEAN CORPUSCULAR HEMOGLOBIN 29 pg (25-34); MEAN CORPUSCULAR HGB CONC 32 g/dL (32-36); MEAN CORPUSCULAR VOLUME 92 fL (80-99); MONOCYTES # (AUTO) 0.5 10^3/uL (0.0-1.0); MONOCYTES % (AUTO) 8 % (0-12); NEUTROPHILS # (AUTO) 5.3 10^3/uL (1.8-7.8); NEUTROPHILS % (AUTO) 84 % (42-75); PLATELET COUNT 186 10^3/uL (130-400); WHITE BLOOD COUNT 6.4 10^3/uL (4.3-11.0)
--- NOTE | 2021-02-20 14:08 | ED Upper Extremity ---
General Chief Complaint: Upper Extremity Stated Complaint: R PINKY SWOLLEN/PURPLE Source: patient (SOMEWHAT LIMITED HISTORIAN) History of Present Illness Date Seen by Provider: Feb 20, 2021 Time Seen by Provider: 13:46 Initial Comments PT ARRIVES VIA POV--SENT HERE FROM [facility] C/O PAIN TO RIGHT HAND AND 5TH FINGER , AND 5TH FINGER HAS BEEN PURPLE FOR THE SEVERAL DAYS, BUT HAS BEEN HAVING PAIN TO THE AREA FOR 2 WEEKS PT DENIES ANY INJURY SYMPTOMS ARE NO DIFFERENT TODAY HAS NOT TAKEN ANYTHING FOR PAIN AT ANY TIME RATES PAIN 4/10 AT REST, BUT 7-9 WITH ANY BUMPING OF IT PT WITH LONGSTANDING POORLY CONTROLLED DIABETES, AND HAS NEUROPATHY IN BOTH OF HIS HANDS AND FEET NUMBNESS/TINGLING IS NOT ANY WORSE THAN NORMAL PT ALSO HAS SIGNFICANT ASVD AND WEARS FOOT/ANKLE BRACES FOR BILATERAL FOOT DROP, HAS HAD LEFT GREAT TOE AMPUTATION FOR OSTEOMYELITIS ADDITIONALLY, PT HAS HAD RENAL TRANSPLANT. HAD PRIOR DIALYSIS AV GRAFT ON LEFT ARM--NO PRIOR SURGERY TO RIGHT ARM PT IS ON PLAVIX AND ASPIRIN PT WAS STARTED ON CLINDAMYCIN YESTERDAY BY DR. DO, AVIONICS SYSTEM ENGINEER. PCP: [facility] Allergies and Home Medications Allergies Coded Allergies: codeine (Verified Allergy, Intermediate, NAUSEA, 04/27/15) pt states he has nausea and vomiting from Codeine Penicillins (Unverified Allergy, Mild, 04/24/15) hydrocodone (Verified Adverse Reaction, Unknown, NAUSEA, 11/22/15) oxycodone (Unverified Adverse Reaction, Unknown, 11/22/15) Patient Home Medication List Home Medication List Reviewed: Yes Aspirin (Aspir 81) 81 Mg Tablet., 81 MG PO DAILY, (Reported) Entered as Reported by: GABRIEL OLIVAREZ on 09/21/19 1031 Doxycycline Hyclate (Doxycycline Hyclate) 100 Mg Tablet, 100 MG PO BID Prescribed by: ONDINA MENDEZ on 10/08/20 1423 Ergocalciferol (Vitamin D2) (Vitamin D2) 1,250 Mcg Capsule, 1,250 MCG PO Fr, (Reported) Entered as Reported by: GABRIEL OLIVAREZ on 09/21/19 1031 Fluoxetine HCl (Fluoxetine HCl) 40 Mg Capsule, 40 MG PO DAILY, (Reported) Entered as Reported by: GABRIEL OLIVAREZ on 09/21/19 1031 Insulin Aspart (Novolog) 100 Unit/1 Ml Susp, per pump, (Reported) Entered as Reported by: JUDY COMBS on 10/14/17 194 Metoprolol Tartrate (Metoprolol Tartrate) 25 Mg Tablet, 12.5 MG PO BID, (Reported) Entered as Reported by: GABRIEL OLIVAREZ on 09/21/19 1031 Mycophenolate Sodium (Myfortic) 180 Mg Tablet.dr, 720 MG PO BID, (Reported) Entered as Reported by: GABRIEL OLIVAREZ on 09/21/19 1031 Nystatin (Nystatin) 100,000 Unit/1 Ml Oral.susp, 5 ML PO PCHS, (Reported) Entered as Reported by: GABRIEL OLIVAREZ on 09/21/19 1031 Omeprazole (Omeprazole) 40 Mg Capsule.dr, 40 MG PO DAILY, (Reported) Entered as Reported by: GABRIEL OLIVAREZ on 09/21/19 1031 Polyethylene Glycol 3350 (Miralax) 119 Gm Powder, 17 GM PO DAILY PRN for CONSTIPATION-1ST LINE, (Reported) Entered as Reported by: GABRIEL OLIVAREZ on 09/21/19 1031 Prednisone (Prednisone) 5 Mg Tablet, 5 MG PO DAILY, (Reported) Entered as Reported by: GABRIEL OLIVAREZ on 09/21/19 1031 Pregabalin (Lyrica) 75 Mg Capsule, 75 MG PO TID, (Reported) Entered as Reported by: GABRIEL OLIVAREZ on 10/30/15 1218 Sulfamethoxazole/Trimethoprim (Bactrim 400-80 mg Tablet) 1 Each Tablet, 1 EACH PO MoWeFr, (Reported) Entered as Reported by: GABRIEL OLIVAREZ on 09/21/19 1031 Tacrolimus (Prograf) 1 Mg Capsule, 5 MG PO BID, (Reported) Entered as Reported by: GABRIEL OLIVAREZ on 09/21/19 1031 Tamsulosin HCl (Flomax) 0.4 Mg Cap, 0.4 MG PO HS, (Reported) Entered as Reported by: GABRIEL OLIVAREZ on 09/21/19 1031 Tramadol HCl (Tramadol HCl) 50 Mg Tablet, 50 MG PO Q6H PRN for PAIN-MILD (1-4), (Reported) Entered as Reported by: GABRIEL OLIVAREZ on 09/21/19 1031 Trazodone HCl (Trazodone HCl) 100 Mg Tablet, 100 MG PO HS, (Reported) Entered as Reported by: JUDY COMBS on 10/14/171945 Valganciclovir HCl (Valcyte) 450 Mg Tab, 450 MG PO MoTh, (Reported) Entered as Reported by: GABRIEL OLIVAREZ on 09/21/19 1031 Review of Systems Constitutional: no symptoms reported Cardiovascular: see HPI Musculoskeletal: see HPI Skin: see HPI Psychiatric/Neurological: See HPI Past Vbohghe-Ioqavp-Jhrxca Hx Patient Social History Tobacco Use?: No Use of E-Cig and/or Vaping dev: No Substance use?: No Alcohol Use?: No Immunizations Up To Date Tetanus Booster (TDap): Less than 5yrs PED Vaccines UTD: Yes First/Initial COVID19 Vaccinat: MAY 2020 Second COVID19 Vaccination Luis Miguel: JUNE 2020 COVID19 Vaccine Research Program Internship: [employer] Seasonal Allergies Seasonal Allergies: No Past Medical History Surgery/Hospitalization HX: PMH: KIDNEY FAILURE, DIALYSIS, KIDNEY TRANSPLANT SX: R KNEE, GALLBLADDER, R KIDNEY STENT/BALLOON, DIALYSIS SHUNT L ARM, KIDNEY TRANSPLANT, LEFT GREAT TOE AMPUTATION FOR OSTEOMYELITIS Surgeries: Yes (Fistula left upper arm) Abdominal, Amputation, Gallbladder, Kidney Transplant, Orthopedic, Tonsillectomy, Tracheostomy, Vascular Surgery Respiratory: Yes (ON VENT AND TRACH WITH SEVERE DKA IN 2015) Pneumonia, Sleep Apnea Currently Using CPAP: Yes Currently Using BIPAP: No Cardiac: Yes Chronic Edema/Swelling, Heart Murmur, Hypertension, Peripheral Vascular, Valvular Heart Disease Neurological: Yes (BILATERAL FOOT DROP; NEUROPATHY BILAT HANDS AND FEET) Neuropathy Reproductive Disorders: No Sexually Transmitted Disease: No HIV/AIDS: No Genitourinary: Yes (RENAL TRANSPLANT) Renal Failure, Dialysis Gastrointestinal: Yes (PERITONITIS; HAD FEEDING TUBE WITH SEVERE DKA IN 2014) Abdominal Hernia, Gastroesophageal Reflux, Gall Bladder Disease Musculoskeletal: Yes (BILATERAL FOOT DROP;LEFT GREAT TOE AMPUTATION FOR OSTEOMYELITIS) Amputee, Foot Drop, Chronic Back Pain Endocrine: Yes (POOR CONTROL) Diabetes, Insulin dep HEENT: Yes Loss of Vision: Left Hearing Impairment: Denies Cancer: No Psychosocial: Yes Depression Integumentary: Yes (DIABETIC FOOT ULCER; OSTEOMYELITIS) Blood Disorders: No Adverse Reaction/Blood Tranf: No Family Medical History FHx: emphysema 19 FATHER Physical Exam Vital Signs Vital Signs - First Documented 02/20/21 13:45 Temp 36.8 Pulse 74 Resp 18 B/P (MAP) 109/69 (82) Pulse Ox 98 O2 Delivery Room Air Capillary Refill : Height, Weight, BMI Height: 5'6.00" Weight: 201lbs. 7.0oz. 91.106681ob; 30.00 BMI Method:Stated General Appearance: WD/WN, no apparent distress Hand: Right (RIGHT 5TH FINGER--DISTAL PHALANX IS CYANOTIC AND COLD, WITH PATCHY DUSKINESS TO MEDIAL ASPECT OF HAND. MARKEDLY EXAGGERATED PAIN RESPONSE TO LIGHT PALPATION OF THESE AREAS, WITH DECREASED SENSATION TO ALL OTHER FINGERS --PT STATES IS NORMAL FOR OTHER FINGERS TO HAVE DECREASED SENSATION. HAS A RADIAL PULSE. BUT UNABLE TO PALPATE ULNAR PULSE. DOES HAVE A FAINT BRACHIAL PULSE ON RIGHT. ), soft tissue tenderness Neurologic/Tendon: normal tendon functions Neurologic/Psychiatric: alert, normal mood/affect Skin: warm/dry, other (CYANOSIS TO FINGER NOTED ABOVE. ) Progress/Results/Core Measures Results/Orders Lab Results My Orders Vital Signs/I&O Progress Progress Note : Progress Note NO DETERIORATION IN PT'S CONDITION DURING ER STAY PT DECLINED ANY PAIN MEDICATION IN ER Diagnostic Imaging Comments ARTERIAL DOPPLER/ULTRASOUND RIGHT UPPER EXTREMITY--PER TECH REPORT AT 1433 AND RADIOLOGIST REPORT AT 1507 FINDINGS: Minimal plaque is seen throughout the upper extremity arterial system. There is dampened monophasic flow in the ulnar artery. No critical stenosis or acute occlusion is identified. The remainder of the arterial system of the right upper extremity is unremarkable. IMPRESSION: Abnormal monophasic dampened flow in the ulnar artery compatible with diffuse atherosclerotic pattern. Reviewed: Reviewed by Ok Departure Communication (Admissions) 1435--CALLED [facility]. ULTRASOUND IMAGES CLOUDED. THEY WILL CALL BACK 1501--[facility] CALLED BACK, ADDITIONAL INFORMATION GIVEN. THEY HAVE RECEIVED CLOUDED IMAGES, THEY WILL DISCUSS WITH VASCULAR SURGEON AND CALL BACK. 1545--[facility] CALLED BACK, SPOKE WITH DR. GRANGER, VASCULAR SURGEON, ACCEPTS PT FOR TRANSFER, AND ADVISES HEPARIN BOLUS AND DRIP. Impression Primary Impression: RIGHT ULNAR ARTERY OCCLUSION Additional Impressions: Peripheral arterial disease Peripheral neuropathy IDDM (insulin dependent diabetes mellitus) History of renal transplant Disposition: XFER SHT-TRM HOSP Condition: Stable Transfer Transfer Reason: Exceeds level of care Transfer Facility: Method of Transfer: EMS Departure-Patient Inst. Referrals: SARI HARRELL MD (PCP/Family) Primary Care Physician ALYSIA EDWARDS DO Feb 20, 2021 14:08
[2021-02-20 14:27] LABS: BAND NEUTROPHILS 1 %; BASOPHILS % (MANUAL) 0 %; EOSINOPHILS % (MANUAL) 1 %; ERYTHROCYTE SEDIMENTATION RATE 2 MM/HR (0-15); LYMPHOCYTES % (MANUAL) 7 %; MONOCYTES % (MANUAL) 7 %; NEUTROPHILS % (MANUAL) 84 %; RBC MORPH NORMAL
[2021-02-20 14:30] LABS: ALBUMIN 3.9 GM/DL (3.2-4.5); BILIRUBIN,TOTAL 0.4 MG/DL (0.1-1.0); CALCIUM 9.3 MG/DL (8.5-10.1); CREATININE SERUM 1.8 MG/DL (0.60-1.30); POTASSIUM 4.2 MMOL/L (3.6-5.0); TOTAL PROTEIN 6.4 GM/DL (6.4-8.2)
[2021-02-20 14:31] LABS: FIBRIN DEGRADATION PRODUCTS 0.5 UG/ML (0.00-0.49)
--- NOTE | 2021-02-20 15:05 | Diagnostic Imaging Report ---
INDICATION: Cyanotic digits. COMPARISON: None. TECHNIQUE: Real-time spectral and color Doppler study of the right upper extremity arterial system was obtained. FINDINGS: Minimal plaque is seen throughout the upper extremity arterial system. There is dampened monophasic flow in the ulnar artery. No critical stenosis or acute occlusion is identified. The remainder of the arterial system of the right upper extremity is unremarkable. IMPRESSION: Abnormal monophasic dampened flow in the ulnar artery compatible with diffuse atherosclerotic pattern. Dictated by: Dictated on workstation # [id number]
[2021-02-20] MEDS ORDERED: HEParin 1000 UNIT/ML (10ML VIAL) FOR BOLUS IV ONE (15:47)
[2021-02-20] MEDS ORDERED: HEParin DRIP 25000 UNIT/500ML 500 ML IV ONE (16:00)
[2021-02-20 17:27] VITALS: BP 168/84
== END 2021-02-20 17:27 | disposition short-term general hospital (02) ==
LOC: EDUNIT# 13:32 → ER 13:33
DX: I70.208 Unspecified atherosclerosis of native arteries of extremities, other extremity (principal); G62.9 Polyneuropathy, unspecified; E11.9 Type 2 diabetes mellitus without complications; G47.30 Sleep apnea, unspecified; K21.9 Gastro-esophageal reflux disease without esophagitis; I10 Essential (primary) hypertension; F32.9 Major depressive disorder, single episode, unspecified; Z94.0 Kidney transplant status; Z79.52 Long term (current) use of systemic steroids; Z79.82 Long term (current) use of aspirin; Z79.899 Other long term (current) drug therapy; Z79.4 Long term (current) use of insulin; Z79.01 Long term (current) use of anticoagulants
CPT/HCPCS: 36415; 80053; 82947; 85007; 85027; 85379; 85610; 85652; 85730; 86141; 93931

== ENCOUNTER 2021-02-26 15:57 | Emergency (ER) | payer MEDICARE, MEDICAID ==
[~2021-02-26] VITALS: Ht 167.7 cm; Wt 75.0 kg
--- NOTE | 2021-02-26 16:20 | ED Upper Extremity ---
General Chief Complaint: Upper Extremity Stated Complaint: R WRIST BLOCKED ARTERY Source: patient Exam Limitations: no limitations (OLIVIA ROBERTSON APRN) History of Present Illness Date Seen by Provider: Feb 26, 2021 Time Seen by Provider: 16:16 Initial Comments to ER by private vehicle with reports of pain spreading from the pinky finger up the ulnar side of the left arm at the wrist. He was seen here about a week ago for the same and found to have an ulnar artery stenosis. He was transferred to the [facility] for peripheral angiogram. He had monophasic flow in the ulnar artery with no critical stenosis. Ulnar artery angioplasty was minimally successful on 02/21/2021. The artery was not able to be opened. The artery was noted to have severe atherosclerotic disease. There was no appreciable medial fifth digital artery runoff. The lateral fifth digital artery and the digital arteries of digits one through four were supplied by the radial artery. He was started on hydrocodone and Eliquis. Onset: just prior to arrival Severity: moderate Pain/Injury Location: left shoulder Method of Injury: unknown Modifying Factors: Worse With Movement (OLIVIA ROBERTSON APRN) Allergies and Home Medications Allergies Coded Allergies: codeine (Verified Allergy, Intermediate, NAUSEA, 04/27/15) pt states he has nausea and vomiting from Codeine Penicillins (Unverified Allergy, Mild, 04/24/15) oxycodone (Unverified Adverse Reaction, Unknown, 11/22/15) Patient Home Medication List Home Medication List Reviewed: Yes (OLIVIA ROBERTSON APRN) Aspirin (Aspir 81) 81 Mg Tablet.dr, 81 MG PO DAILY, (Reported) Entered as Reported by: GABRIEL OLIVAREZ on 09/21/19 1031 Doxycycline Hyclate (Doxycycline Hyclate) 100 Mg Tablet, 100 MG PO BID Prescribed by: ONDINA MENDEZ on 10/08/20 1423 Ergocalciferol (Vitamin D2) (Vitamin D2) 1,250 Mcg Capsule, 1,250 MCG PO Fr, (Reported) Entered as Reported by: GABRIEL OLIVAREZ on 09/21/19 1031 Fluoxetine HCl (Fluoxetine HCl) 40 Mg Capsule, 40 MG PO DAILY, (Reported) Entered as Reported by: GABRIEL OLIVAREZ on 09/21/19 1031 Hydrocodone/Acetaminophen (Hydrocodone-Acetamin 10-325 mg) 1 Each Tablet, 1 EACH PO Q6H PRN for PAIN-SEVERE (8-10) Prescribed by: OLIVIA ROBERTSON on 02/26/211816 Insulin Aspart (Novolog) 100 Unit/1 Ml Susp, per pump, (Reported) Entered as Reported by: JUDY COMBS on 10/14/171945 Metoprolol Tartrate (Metoprolol Tartrate) 25 Mg Tablet, 12.5 MG PO BID, (Reported) Entered as Reported by: GABRIEL OLIVAREZ on 09/21/19 1031 Mycophenolate Sodium (Myfortic) 180 Mg Tablet.dr, 720 MG PO BID, (Reported) Entered as Reported by: GABRIEL OLIVAREZ on 09/21/19 1031 Nystatin (Nystatin) 100,000 Unit/1 Ml Oral.susp, 5 ML PO PCHS, (Reported) Entered as Reported by: GABRIEL OLIVAREZ on 09/21/19 1031 Omeprazole (Omeprazole) 40 Mg Capsule.dr, 40 MG PO DAILY, (Reported) Entered as Reported by: GABRIEL OLIVAREZ on 09/21/19 1031 Polyethylene Glycol 3350 (Miralax) 119 Gm Powder, 17 GM PO DAILY PRN for CONSTIPATION-1ST LINE, (Reported) Entered as Reported by: GABRIEL OLIVAREZ on 09/21/19 103 Prednisone (Prednisone) 5 Mg Tablet, 5 MG PO DAILY, (Reported) Entered as Reported by: GABRIEL OLIVAREZ on 09/21/19 1031 Pregabalin (Lyrica) 75 Mg Capsule, 75 MG PO TID, (Reported) Entered as Reported by: GABRIEL OLIVAREZ on 10/30/15 1218 Sulfamethoxazole/Trimethoprim (Bactrim 400-80 mg Tablet) 1 Each Tablet, 1 EACH PO MoWeFr, (Reported) Entered as Reported by: GABRIEL OLIVAREZ on 09/21/19 103 Tacrolimus (Prograf) 1 Mg Capsule, 5 MG PO BID, (Reported) Entered as Reported by: GABRIEL OLIVAREZ on 09/21/19 1031 Tamsulosin HCl (Flomax) 0.4 Mg Cap, 0.4 MG PO HS, (Reported) Entered as Reported by: GABRIEL OLIVAREZ on 09/21/19 1031 Tramadol HCl (Tramadol HCl) 50 Mg Tablet, 50 MG PO Q6H PRN for PAIN-MILD (1-4), (Reported) Entered as Reported by: GABRIEL OLIVAREZ on 09/21/19 1031 Trazodone HCl (Trazodone HCl) 100 Mg Tablet, 100 MG PO HS, (Reported) Entered as Reported by: JUDY COMBS on 10/14/17 194 Valganciclovir HCl (Valcyte) 450 Mg Tab, 450 MG PO MoTh, (Reported) Entered as Reported by: GABRIEL OLIVAREZ on 09/21/19 1031 Review of Systems Constitutional: see HPI EENTM: see HPI Respiratory: no symptoms reported Genitourinary: no symptoms reported Musculoskeletal: see HPI Skin: no symptoms reported Psychiatric/Neurological: No Symptoms Reported (OLIVIA ROBERTSON APRN) Past Snhiedg-Qifqzh-Droekh Hx Immunizations Up To Date Tetanus Booster (TDap): Less than 5yrs PED Vaccines UTD: Yes First/Initial COVID19 Vaccinat: MAY 2020 Second COVID19 Vaccination Luis Miguel: JUNE 2020 Third COVID19 Vaccination Date: 2020 (OLIVIA ROBERTSON APRN) Seasonal Allergies Seasonal Allergies: No (OLIVIA ROBERTSON APRN) Past Medical History Surgery/Hospitalization HX: PMH: KIDNEY FAILURE, DIALYSIS, KIDNEY TRANSPLANT SX: R KNEE, GALLBLADDER, R KIDNEY STENT/BALLOON, DIALYSIS SHUNT L ARM, KIDNEY TRANSPLANT, LEFT GREAT TOE AMPUTATION FOR OSTEOMYELITIS Surgeries: Yes (Fistula left upper arm) Abdominal, Amputation, Gallbladder, Kidney Transplant, Orthopedic, Tonsillectomy, Tracheostomy, Vascular Surgery Respiratory: Yes (ON VENT AND TRACH WITH SEVERE DKA IN 2015) Pneumonia, Sleep Apnea Currently Using CPAP: Yes Currently Using BIPAP: No Cardiac: Yes Chronic Edema/Swelling, Heart Murmur, Hypertension, Peripheral Vascular, Valvul ar Heart Disease Neurological: Yes (BILATERAL FOOT DROP; NEUROPATHY BILAT HANDS AND FEET) Neuropathy Reproductive Disorders: No Sexually Transmitted Disease: No HIV/AIDS: No Genitourinary: Yes (RENAL TRANSPLANT) Renal Failure, Dialysis Gastrointestinal: Yes (PERITONITIS; HAD FEEDING TUBE WITH SEVERE DKA IN 2015) Abdominal Hernia, Gastroesophageal Reflux, Gall Bladder Disease Musculoskeletal: Yes (BILATERAL FOOT DROP;LEFT GREAT TOE AMPUTATION FOR OSTEOMYELITIS) Amputee, Foot Drop, Chronic Back Pain Endocrine: Yes (POOR CONTROL) Diabetes, Insulin dep HEENT: Yes Loss of Vision: Left Hearing Impairment: Denies Cancer: No Psychosocial: Yes Depression Integumentary: Yes (DIABETIC FOOT ULCER; OSTEOMYELITIS) Blood Disorders: No Adverse Reaction/Blood Tranf: No (OLIVIA ROBERTSON APRN) Family Medical History FHx: emphysema 19 FATHER Physical Exam Vital Signs Vital Signs - First Documented 02/26/21 16:12 Temp 36.7 Pulse 74 Resp 16 B/P (MAP) 118/63 (81) Pulse Ox 98 O2 Delivery Room Air (ONDINA HARPER MD) Vital Signs Capillary Refill : (OLIVIA ROBERTSON APRN) Height, Weight, BMI Height: 5'6.00" Weight: 201lbs. 7.0oz. 91.303907fq; 29.00 BMI Method:Stated General Appearance: WD/WN, no apparent distress Neck: non-tender, full range of motion Cardiovascular: regular rate, rhythm, no murmur Respiratory: no respiratory distress, no accessory muscle use Gastrointestinal: normal bowel sounds, non tender, soft Elbow/Forearm: normal inspection, non-tender Wrist: Yes normal inspection, Yes non-tender Hand: normal inspection, non-tender, laceration (There is a vasculitis type rash with very delayed capillary refill at the tip of the pinky finger. I am not sure that there is anything to do for this since this is not amenable to intervention at .) Neurologic/Psychiatric: alert, normal mood/affect, oriented x 3 Skin: normal color, warm/dry (OLIVIA ROBERTSON APRN) Departure Communication (Admissions) Family Conversation Spoke with [facility] at 1807 who relayed the message to the patient's physician Dr. Maddox who actually cared for him last week when he was there. They recommend continuing the Eliquis, additional pain control as needed and follow-up as scheduled. Does not warrant transfer there or any other intervention today. NAME: VIRGINIA SORTO [facility] REC#: [id number] PT STATUS: REG ER : 1970 PHYSICIAN: OLIVIA ROBERTSON APRN ADMIT DATE: 02/26/21/ER Draft Date of Exam:02/26/21 US LEFT UP EXT ARTERIAL [id number] PROCEDURE: US left up ext arterial [id number]. TECHNIQUE: Multiple realtime grayscale images were obtained over the left upper extremity in various projections. Duplex Doppler and color Doppler images were also obtained. INDICATION: Recent procedure in the upper extremity at an outside institution. Pinky finger pain which is worsening since. Evaluate ulnar artery. FINDINGS: Limited sonographic evaluation of the upper extremity arterial structures was performed. There is triphasic flow seen within the visualized aspects of the axillary and brachial arteries. Triphasic flow seen in the proximal ulnar artery. No blood flow is seen in the distal ulnar artery which could be secondary to occlusion. The mid ulnar artery demonstrates monophasic flow with decreased velocity as compared to the more proximal ulnar artery. IMPRESSION: No blood flow seen within the distal ulnar artery suggesting occlusion. Other findings as above. 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 Decision time for Depature: 18:08 (OLIVIA ROBERTSON APRN) Referrals: SARI HARRELL MD (PCP/Family) Primary Care Physician Patient Instructions: Peripheral Artery Disease and Claudication Add. Discharge Instructions: 1. Try to keep the finger warm. Take the pain medication as directed and continue your blood thinner. This is the most important thing. Follow-up with [facility] as scheduled. All discharge instructions reviewed with patient and/or family. Voiced understanding. Scripts Hydrocodone/Acetaminophen (Hydrocodone-Acetamin 10-325 mg) 1 Each Tablet 1 EACH PO Q6H PRN for PAIN-SEVERE (8-10), #20 TAB Prov: OLIVIA ROBERTSON APRN 02/26/21 ATTENDING PHYSICIAN NOTE: I was physically present as attending physician in the emergency department during the care of this patient, but I was not directly involved in the decision making or delivery of care for this patient. (ONDINA HARPER MD) OLIVIA ROBERTSON APRN Feb 26, 2021 16:20 ONDINA HARPER MD Feb 27, 2021 11:18
--- NOTE | 2021-02-26 17:47 | Diagnostic Imaging Report ---
PROCEDURE: US left up ext arterial [id number]. TECHNIQUE: Multiple realtime grayscale images were obtained over the left upper extremity in various projections. Duplex Doppler and color Doppler images were also obtained. INDICATION: Recent procedure in the upper extremity at an outside institution. Pinky finger pain which is worsening since. Evaluate ulnar artery. FINDINGS: Limited sonographic evaluation of the upper extremity arterial structures was performed. There is triphasic flow seen within the visualized aspects of the axillary and brachial arteries. Triphasic flow seen in the proximal ulnar artery. No blood flow is seen in the distal ulnar artery which could be secondary to occlusion. The mid ulnar artery demonstrates monophasic flow with decreased velocity as compared to the more proximal ulnar artery. IMPRESSION: No blood flow seen within the distal ulnar artery suggesting occlusion. Other findings as above. Dictated by: Dictated on workstation # [id number]
[2021-02-26] MEDS ORDERED: HYDR-3820 PO (18:17)
[2021-02-26 18:22] VITALS: BP 123/76
== END 2021-02-26 18:15 | disposition home or self-care (01) ==
LOC: EDUNIT# 15:57 → ER 15:59
DX: I74.2 Embolism and thrombosis of arteries of the upper extremities (principal); I10 Essential (primary) hypertension; E11.42 Type 2 diabetes mellitus with diabetic polyneuropathy; K21.9 Gastro-esophageal reflux disease without esophagitis; F32.A Depression, unspecified; G89.29 Other chronic pain; M54.9 Dorsalgia, unspecified; G47.33 Obstructive sleep apnea (adult) (pediatric); Z99.89 Dependence on other enabling machines and devices; Z79.82 Long term (current) use of aspirin; Z79.4 Long term (current) use of insulin; Z79.891 Long term (current) use of opiate analgesic; Z88.5 Allergy status to narcotic agent; Z79.899 Other long term (current) drug therapy
CPT/HCPCS: 93931

== ENCOUNTER 2022-01-16 15:33 | Emergency (ER) | payer MEDICARE, MEDICAID ==
[~2022-01-16] VITALS: Ht 167 cm; Wt 86.0 kg
[~2022-01-16 15:33] MED LIST changes: -FLUO20CA46 PO; +FLUO20CA48 PO; +HYDR-3820 PO; +LEVO750T PO; -LEVO750T39 PO
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
--- NOTE | 2022-01-16 16:42 | Diagnostic Imaging Report ---
INDICATION: Punched a wall. FINDINGS: There is a slightly impacted mildly comminuted fracture of the distal 5th metacarpal. There is no other fracture or dislocation. Soft tissues are unremarkable. IMPRESSION: Comminuted slightly impacted fracture of the distal 5th metacarpal. There is some volar angulation of the distal fracture fragment. Dictated by: Dictated on workstation # [id number]
[2022-01-16 17:02] VITALS: BP 141/78
== END 2022-01-16 17:02 | disposition home or self-care (01) ==
LOC: EDUNIT# 15:33 → ER 15:39
DX: S62.91XA Unspecified fracture of right hand, initial encounter for closed fracture (principal); E11.9 Type 2 diabetes mellitus without complications; G47.30 Sleep apnea, unspecified; Z99.89 Dependence on other enabling machines and devices; Z79.4 Long term (current) use of insulin; W18.00XA Striking against unspecified object with subsequent fall, initial encounter
CPT/HCPCS: 29125; 73130

== ENCOUNTER 2022-03-29 13:10 | Outpatient (CLI) | payer MEDICARE, MEDICAID ==
[~2022-03-29] VITALS: Ht 167.6 cm; Wt 87.5 kg
[2022-03-29] MEDS ORDERED: DOCU100C37 PO (13:54)
[2022-03-29] MEDS ORDERED: BUPR75FI3 BC (13:54)
[2022-03-29] MEDS ORDERED: CLOP75TA28 PO (13:54)
[2022-03-29] MEDS ORDERED: BUPR150F3 BC (13:54)
[2022-03-29] MEDS ORDERED: RT-ALBUINH INH ×2 (13:54→13:55)
[2022-03-29] MEDS ORDERED: BUPR300F3 BC (13:54)
[2022-03-29] MEDS ORDERED: APIX5TAB PO (13:55)
[2022-03-29] MEDS ORDERED: OSEL30CA2 PO (13:55)
[2022-03-29] MEDS ORDERED: NIFE-25 PO (13:55)
[2022-03-29] MEDS ORDERED: TACR1TAB PO (13:55)
[2022-03-29] MEDS ORDERED: LIRA0.6P SQ (13:55)
[2022-03-29] MEDS ORDERED: APIX2.5T PO (13:55)
== END 2022-03-29 14:02 | disposition home or self-care (01) ==
LOC: PREOP 13:10
PROVIDERS: ATTEND Surgery
DX: Z01.818 Encounter for other preprocedural examination (principal); Z12.11 Encounter for screening for malignant neoplasm of colon

== ENCOUNTER 2022-04-05 08:03 | Day surgery (SDC) | payer MEDICARE, MEDICAID ==
[~2022-04-05] VITALS: Ht 167.6 cm; Wt 87.5 kg
[2022-04-05] VITALS (7 sets, daily range): BP systolic 124–162; BP diastolic 63–77
[~2022-04-05 08:03] MED LIST changes: +APIX2.5T PO; +APIX5TAB PO; +BUPR150F3 BC; +BUPR300F3 BC; +BUPR75FI3 BC; +CLOP75TA28 PO; +LIRA0.6P SQ; +NIFE-25 PO; +OSEL30CA2 PO; +RT-ALBUINH INH; +TACR1TAB PO
[2022-04-05] MEDS ORDERED: LACTATED RINGERS 1,000 ML IV STA (08:06)
--- NOTE | 2022-04-05 08:21 | Progress Note-Pre Operative ---
Pre-Operative Progress Note Date of Available H&P: Mar 18, 2022 Date H&P Reviewed: Apr 05, 2022 Time H&P Reviewed: 08:13 History & Physical: H&P Reviewed, Patient Examed, No changes noted Pre-Operative Diagnosis: Screening colonoscopy NIKI GARRETT DO Apr 05, 2022 08:20
[2022-04-05] MEDS ORDERED: D5 LR IV SOLUTION 1,000 ML IV ONE ×2 (08:28→08:30)
[2022-04-05] MEDS ORDERED: PROPOFOL INJECTION 50 ML IV ONE (08:56)
[2022-04-05] MEDS ORDERED: MIDAZOLAM 2 MG/2 ML (VERSED) VIAL ONE (08:56)
--- NOTE | 2022-04-05 09:41 | Progress Note-Post Operative ---
Post-Operative Progess Note Surgeon (s)/Bore Miner Operator (s) Surgeon NIKI GARRETT DO Bore Miner Operator: none Pre-Operative Diagnosis Screening colonoscopy Post-Operative Diagnosis Polyps internal hemorrhoids poor prep Procedure & Operative Findings Date of Procedure 04/05/22 Procedure Performed/Findings Colonoscopy with snare polypectomy Indications: Screening Colonoscopy Findings: polyps, hemorrhoids, very poor prep.....pt told nurse he ate a whole bowl of brett jurado yesterday at noon PROCEDURE NOTE: After informed consent was obtained, the patient was brought to the endoscopy suite, placed in bed in left lateral decubitus position. He was administered IV sedation by the ELECTRICIAN MAINTENANCE who then monitored his vitals the entire time, heart rate, blood pressure and pulse ox and the scope was inserted, pushed all the way to about 130 cm and then able to pull back a little to get into the cecum; was at 100cm when I took a picture of the appendiceal orifice. Unfortunately, the entire way in the galvez were covered with fecal material. I used almost 2 liters of saline to flush the galvez, but unable to clear all of it; pictures taken. Once in the cecum I was able to get into the terminal ileum and took a picture. I then slowly withdrew the scope insufflating to look circumferentially at the galvez; starting in the cecum, up the ascending colon to the hepatic flexure, then down the transverse colon to the splenic flexure and into the descending colon. I found two large polyps in the chaitanya cending colon that I elected to remove with snare polypectomy. Continued down into the sigmoid and then into the rectum; where I found another polyp, took a picture and removed it with the snare. In the rectal vault I retroflexed the scope and took a picture of the internal hemorrhoids. The patient tolerated the procedure. He was recovered in endoscopy suite. Recommended for repeat colonoscopy in 5 years. Anesthesia Type IV sedation by ELECTRICIAN MAINTENANCE Estimated Blood Loss Estimated blood loss (mL): scant Specimens/Packing Specimens Removed descending colon polyp x 2 rectal polyp NIKI GARRETT DO Apr 05, 2022 09:41
--- NOTE | 2022-04-05 09:41 | Anesthesia-General Post-Op ---
MAC Patient Condition Mental Status/LOC: Same as Preop Cardiovascular: Satisfactory Nausea/Vomiting: Absent Respiratory: Satisfactory Pain: Controlled Complications: Absent Post Op Complications Complications None Follow Up Care/Instructions Patient Instructions None needed. Anesthesiology Discharge Order Discharge Order Patient is doing well, no complaints, stable vital signs, no apparent adverse anesthesia problems. No complications reported per nursing. YONIS APODACA CRNA Apr 05, 2022 09:41
--- NOTE | 2022-04-05 09:42 | Endoscopy Discharge Instruct ---
Endo Procedure/Findings Findings 1.: Polyp 2.: Internal Hemorrhoids 3.: Other Findings (poor prep) Discharge Instructions - Activity: You might feel a little sleepy until tomorrow. This is due to the medicine you received to relax you. Until tomorrow, you should: NOT drive a car, operate machinery or power tools. NOT drink any alcoholic beverages. NOT make any important decisions or sign importortant papers. Do not return to work until tomorrow, unless otherwise instructed. Resume previous activities tomorrow. Diet: Start by taking liquids. If you tolerate liquids, advance to solid food. 1.: Colonscopy in 5 years Notify Physician - If you experience excessive bleeding, unusual abdominal pain, fever, or chest pain, contact your doctor immediately. NIKI GARRETT DO Apr 05, 2022 09:42
== END 2022-04-05 10:30 | disposition home or self-care (01) ==
LOC: ENDO 08:03
PROVIDERS: ATTEND Surgery
DX: Z12.11 Encounter for screening for malignant neoplasm of colon (principal); D12.4 Benign neoplasm of descending colon; D12.8 Benign neoplasm of rectum; K63.5 Polyp of colon; K64.8 Other hemorrhoids; E11.40 Type 2 diabetes mellitus with diabetic neuropathy, unspecified; E11.22 Type 2 diabetes mellitus with diabetic chronic kidney disease; Z79.4 Long term (current) use of insulin; E66.9 Obesity, unspecified; Z68.31 Body mass index [BMI] 31.0-31.9, adult; Z87.891 Personal history of nicotine dependence; Z79.01 Long term (current) use of anticoagulants; Z79.02 Long term (current) use of antithrombotics/antiplatelets; Z99.2 Dependence on renal dialysis; N18.6 End stage renal disease
CPT/HCPCS: 88305

== ENCOUNTER 2022-07-14 15:46 | Emergency (ER) | payer MEDICARE, MEDICAID ==
[~2022-07-14] VITALS: Ht 168 cm; Wt 88.0 kg
[2022-07-14 15:53] VITALS: BP 124/68
--- NOTE | 2022-07-14 16:22 | Diagnostic Imaging Report ---
CLINICAL INDICATION: Patient with sternal trauma and laceration to the chest. EXAM: Chest x-ray PA and lateral views. COMPARISON: Chest x-ray dated 10/08/2020. FINDINGS: Lungs/pleura: There is minimal discoid atelectasis involving the left lower lung field region. There is interval resolution of the previously seen right upper lobe infiltrate. Lungs are otherwise clear. There is no pneumothorax. There is no pleural effusion. Mediastinum: Unremarkable. Pulmonary vasculature: Unremarkable. Heart: Unremarkable. Bones/extrathoracic soft tissue: There are small degenerative spurs involving the thoracic spine. There is no fracture seen. IMPRESSION: 1: There is minimal atelectasis in left lung base. There is no radiographic evidence of acute cardiopulmonary process. There is no fracture seen. Dictated by: Dictated on workstation # [id number]
--- NOTE | 2022-07-14 16:25 | ED General ---
General Chief Complaint: Laceration Stated Complaint: CHEST LAC Nursing Triage Note: pATIENT AMBULATORY TO ROOM 3 W C/O CHEST LACERATION. pATIENT WAS LOADING POLES IN THE BACK OF TRUCK AND ANGLE IRON CAME BACK AND HIT HIM IN THE CHEST. pATIENT LISA HITTING HEAD. Source of Information: Patient Exam Limitations: No Limitations History of Present Illness Date Seen by Provider: Jul 14, 2022 Time Seen by Provider: 15:51 Initial Comments Here with report of laceration to the mid upper chest over the sternum below the area of the clavicles. This is a vertically oriented laceration abrasion. States he was working on getting telephone poles off a trailer and was using the ramp as a lever to move the fall when a piece of angle iron from the ramp swung and hit him in the chest. He did fall to the ground but did not injure anything. Did note laceration to the central chest. He has complicated medical history including diabetes and kidney transplant but has been very stable with respect to those. Denies fever or chills. Tetanus is up-to-date 2-1/2 years ago. Bleeding is controlled. Timing/Duration: 1 Hour Severity: Mild Associated Systoms: Chest Pain (Near wound and laceration that is mild); No Headaches, No Nausea/Vomiting, No Shortness of Air Allergies and Home Medications Allergies Coded Allergies: codeine (Verified Allergy, Intermediate, NAUSEA, 04/27/15) pt states he has nausea and vomiting from Codeine Penicillins (Unverified Allergy, Mild, 04/24/15) oxycodone (Unverified Adverse Reaction, Unknown, 11/22/15) Patient Home Medication List Home Medication List Reviewed: Yes Albuterol Sulfate (Ventolin Hfa) 1 Puff Puff, 1 PUFF INH Q4H, (Reported) Entered as Reported by: PEDRO ALCANTAR on 03/29/22 1354 Albuterol Sulfate (Ventolin Hfa) 1 Puff Puff, 2 PUFF INH Q4H, (Reported) Entered as Reported by: PEDRO ALCANTAR on 03/29/22 1355 Apixaban (Eliquis) 2.5 Mg Tablet, 2.5 MG PO BID, (Reported) Entered as Reported by: PEDRO ALCANTAR on 03/29/22 1355 Apixaban (Eliquis) 5 Mg Tablet, 5 MG PO BID, (Reported) Entered as Reported by: PEDRO ALCANTAR on 03/29/22 1355 Aspirin (Aspir 81) 81 Mg Tablet.dr, 81 MG PO DAILY, (Reported) Entered as Reported by: GABRIEL OLIVAREZ on 09/21/19 1031 Buprenorphine HCl (Belbuca) 75 Mcg Film, 75 MCG BC DAILY, (Reported) Entered as Reported by: PEDRO ALCANTAR on 03/29/22 1354 Buprenorphine HCl (Belbuca) 150 Mcg Film, 150 MCG BC DAILY, (Reported) Entered as Reported by: PEDRO ALCANTAR on 03/29/22 1354 Buprenorphine HCl (Belbuca) 300 Mcg Film, 300 MCG BC DAILY, (Reported) Entered as Reported by: PEDRO ALCANTAR on 03/29/22 135 Docusate Sodium (Docusate Sodium) 100 Mg Capsule, 100 MG PO DAILY, (Reported) Entered as Reported by: PEDRO ALCANTAR on 03/29/22 1354 Ergocalciferol (Vitamin D2) (Vitamin D2) 1,250 Mcg Capsule, 1,250 MCG PO Fr, (Reported) Entered as Reported by: GABRIEL OLIVAREZ on 09/21/19 1031 Fluoxetine HCl (Fluoxetine HCl) 40 Mg Capsule, 40 MG PO DAILY, (Reported) Entered as Reported by: GABRIEL OLIVAREZ on 09/21/19 1031 Hydrocodone/Acetaminophen (Hydrocodone-Acetamin 10-325 mg) 1 Each Tablet, 1 EACH PO Q6H PRN for PAIN-SEVERE (8-10) Prescribed by: OLIVIA ROBERTSON on 02/26/211816 Insulin Aspart (Novolog) 100 Unit/1 Ml Susp, per pump, (Reported) Entered as Reported by: JUDY COMBS on 10/14/17 194 Liraglutide (Victoza 2-Zhang) 0.6 Mg/0.1 Ml (18 Mg/3 Ml) Pen.injctr, 0.6 MG SQ DA ESPINOZA, (Reported) Entered as Reported by: PEDRO ALCANTAR on 03/29/22 1355 Mycophenolate Sodium (Myfortic) 180 Mg Tablet.dr, 720 MG PO BID, (Reported) Entered as Reported by: GABRIEL OLIVAREZ on 09/21/19 1031 Nifedipine (Nifedipine ER) 30 Mg Tab.er.24, 30 MG PO DAILY, (Reported) Entered as Reported by: PEDRO ALCANTAR on 03/29/22 1355 Omeprazole (Omeprazole) 40 Mg Capsule.dr, 40 MG PO DAILY, (Reported) Entered as Reported by: GABRIEL OLIVAREZ on 09/21/19 1031 Oseltamivir Phosphate (Oseltamivir Phosphate) 30 Mg Capsule, 30 MG PO DAILY, (Reported) Entered as Reported by: PEDRO ALCANTAR on 03/29/22 1355 Prednisone (Prednisone) 5 Mg Tablet, 5 MG PO DAILY, (Reported) Entered as Reported by: GABRIEL OLIVAREZ on 09/21/19 1031 Pregabalin (Lyrica) 75 Mg Capsule, 75 MG PO TID, (Reported) Entered as Reported by: GABRIEL OLIVAREZ on 10/30/15 1218 Tacrolimus (Prograf) 1 Mg Capsule, 5 MG PO BID, (Reported) Entered as Reported by: GABRIEL OLIVAREZ on 09/21/19 1031 Tacrolimus (Envarsus Xr) 1 Mg Tab.er.24h, 1 MG PO DAILY, (Reported) Entered as Reported by: PEDRO ALCANTAR on 03/29/22 1355 Tamsulosin HCl (Flomax) 0.4 Mg Cap, 0.4 MG PO HS, (Reported) Entered as Reported by: GABRIEL OLIVAREZ on 09/21/19 1031 Tramadol HCl (Tramadol HCl) 50 Mg Tablet, 50 MG PO Q6H PRN for PAIN-MILD (1-4), (Reported) Entered as Reported by: GABRIEL OLIVAREZ on 09/21/19 1031 Trazodone HCl (Trazodone HCl) 100 Mg Tablet, 100 MG PO HS, (Reported) Entered as Reported by: JUDY COMBS on 10/14/17 194 Valganciclovir HCl (Valcyte) 450 Mg Tab, 450 MG PO MoTh, (Reported) Entered as Reported by: GABRIEL OLIVAREZ on 09/21/19 1031 Review of Systems Review of Systems Constitutional: see HPI; No chills, No fever Respiratory: No cough, No short of breath Cardiovascular: see HPI; No edema Skin: change in color (Contusion around area of laceration/abrasion), lesions Past Fqdokdj-Lrbzrt-Wmibll Hx Patient Social History Tobacco Use?: No Substance use?: No Alcohol Use?: No Immunizations Up To Date Tetanus Booster (TDap): Less than 5yrs PED Vaccines UTD: Yes First/Initial COVID19 Vaccinat: 2020 Second COVID19 Vaccination Luis Miguel: 2020 Third COVID19 Vaccination Date: 2020 COVID19 Vaccine Merchandise Coordinator: MODERNEmre Seasonal Allergies Seasonal Allergies: No Past Medical History Surgery/Hospitalization HX: PMH: KIDNEY FAILURE, DIALYSIS, KIDNEY TRANSPLANTSX: R KNEE, GALLBLADDER, R KIDNEY STENT/BALLOON, DIALYSIS SHUNT L ARM,KIDNEY TRANSPLANT, LEFT GREAT TOE AMPUTATION FOR OSTEOMYELITIS Surgeries: Yes (Fistula left upper arm) Abdominal, Amputation, Gallbladder, Kidney Transplant, Orthopedic, Tonsillectomy, Tracheostomy, Vascular Surgery Respiratory: Yes (ON VENT AND TRACH WITH SEVERE DKA IN 2014) Pneumonia, Sleep Apnea, COPD Currently Using CPAP: Yes Currently Using BIPAP: Yes Cardiac: Yes Chronic Edema/Swelling, Heart Murmur, Hypertension, Peripheral Vascular, Valvular Heart Disease Neurological: Yes (BILATERAL FOOT DROP; NEUROPATHY BILAT HANDS AND FEET) Neuropathy Reproductive Disorders: No Sexually Transmitted Disease: No HIV/AIDS: No Genitourinary: Yes (RENAL TRANSPLANT) Renal Failure, Dialysis Gastrointestinal: Yes (PERITONITIS; HAD FEEDING TUBE WITH SEVERE DKA IN 2014) Abdominal Hernia, Gastroesophageal Reflux, Gall Bladder Disease Musculoskeletal: Yes (BILATERAL FOOT DROP;LEFT GREAT TOE AMPUTATION FOR OSTEOMYELITIS) Amputee, Foot Drop, Chronic Back Pain Endocrine: Yes (POOR CONTROL) Diabetes, Insulin dep HEENT: Yes Loss of Vision: Left Hearing Impairment: Denies Cancer: No Psychosocial: Yes Depression Integumentary: Yes (DIABETIC FOOT ULCER; OSTEOMYELITIS) Blood Disorders: No Adverse Reaction/Blood Tranf: No Family Medical History Reviewed Nursing Family Hx FHx: emphysema 19 FATHER Physical Exam Vital Signs Vital Signs - First Documented 07/14/22 15:53 Temp 35.9 Pulse 93 Resp 16 B/P (MAP) 124/68 (86) Pulse Ox 95 O2 Delivery Room Air Capillary Refill : Less Than 3 Seconds Height, Weight, BMI Height: 5'6.00" Weight: 201lbs. 7.0oz. 91.627498ep; 31.00 BMI Method:Stated General Appearance: No Apparent Distress, WD/WN Neck: Non Tender, Supple Respiratory: Lungs Clear, Normal Breath Sounds, No Accessory Muscle Use Cardiovascular: Regular Rate, Rhythm, No Murmur Extremity: Normal Range of Motion, Non Tender, No Calf Tenderness Neurologic/Psychiatric: Alert, Oriented x3 Skin: Warm/Dry, Ecchymosis (Upper sternum just below the level of the clavicles there is a 5 x 5 centimeter area of ecchymosis with 4 cm vertically oriented abrasion/superficial laceration with bleeding controlled.) Progress/Results/Core Measures Suspected Sepsis SIRS Temperature: Pulse: 93 Respiratory Rate: 16 Blood Pressure 124 /68 Mean: 86 Results/Orders My Orders Orders - ELIZABETH NICOLAS MD Chest Pa/Lat (2 View) (07/14/22 15:59) Vital Signs/I&O 07/14/22 15:53 Temp 35.9 Pulse 93 Resp 16 B/P (MAP) 124/68 (86) Pulse Ox 95 O2 Delivery Room Air Capillary Refill : Less Than 3 Seconds Blood Pressure Mean: 86 Progress Note : Progress Note Seen and evaluated. Wound will be cleaned by nursing. The abrasion/laceration is superficial enough that it does not require suturing but we will clean that and apply antibiotic ointment. Patient is high risk for infection due to his diabetes and his transplant state. At a minimum we will use antibiotic ointment but we are considering oral. IM awaiting chest x-ray results. 1620: Chest x- ray complete. I do not see any obvious pneumothorax or fracture on my interpretation pending radiology review. Monitor patient. 05/15/2003: No obvious fracture. We will initiate outpatient doxycycline for few days given his diabetes history and potential for dirty wound. Discharged home with return precautions. Patient verbalized understanding instructions and agreement with plan. Diagnostic Imaging Diagonstic Imaging: Xray Plain Films/CT/US/NM/MRI: chest Comments [facility]. [place], [place] NAME: VIRGINIA SORTO [facility] REC#: [id number] PT STATUS: REG ER : 1970 PHYSICIAN: ELIZABETH NICOLAS MD ADMIT DATE: 07/14/22/ER Draft Date of Exam:07/14/22 CHEST PA/LAT (2 VIEW) CLINICAL INDICATION: Patient with sternal trauma and laceration to the chest. EXAM: Chest x-ray PA and lateral views. COMPARISON: Chest x-ray dated 10/08/2020. FINDINGS: Lungs/pleura: There is minimal discoid atelectasis involving the left lower lung field region. There is interval resolution of the previously seen right upper lobe infiltrate. Lungs are otherwise clear. There is no pneumothorax. There is no pleural effusion. Mediastinum: Unremarkable. Pulmonary vasculature: Unremarkable. Heart: Unremarkable. Bones/extrathoracic soft tissue: There are small degenerative spurs involving the thoracic spine. There is no fracture seen. IMPRESSION: 1: There is minimal atelectasis in left lung base. There is no radiographic evidence of acute cardiopulmonary process. There is no fracture seen. Dictated on workstation # [id number] Dict: 07/14/22 1617 Trans: 07/14/22 1621 [id number] Interpreted by: COMPA ORTIZ MD Electronically signed by: Departure Impression Primary Impression: Abrasion of chest wall Qualified Codes: S20.319A - Abrasion of unspecified front wall of thorax, initial encounter Additional Impression: Contusion of chest wall Qualified Codes: S20.219A - Contusion of unspecified front wall of thorax, initial encounter Disposition: HOME, SELF-CARE Condition: Improved Departure-Patient Inst. Decision time for Depature: 17:06 Referrals: SRAI HARRELL MD (PCP/Family) Primary Care Physician Patient Instructions: Skin Abrasions, Contusion (DC) Add. Discharge Instructions: All discharge instructions reviewed with patient and/or family. Voiced understanding. Use antibiotic ointment and dressing over wound changing once to twice daily for the next several days and then as needed. Take antibiotics as directed. May take Tylenol/acetaminophen 1000 mg every 6-8 hours as needed for pain. Return for worse pain, swelling, weakness, breathing problems, fever, increasing redness, foul-smelling drainage or other concerns as needed. Scripts Doxycycline Hyclate (Doxycycline Hyclate) 100 Mg Tablet 100 MG PO BID, #10 TAB 0 Refills Prov: ELIZABETH NICOLAS MD 07/14/22 ELIZABETH NICOLAS MD Jul 14, 2022 16:25
[2022-07-14] MEDS ORDERED: DOXY100T2 PO (17:06)
== END 2022-07-14 17:30 | disposition home or self-care (01) ==
LOC: EDUNIT# 15:46 → ER 15:47
DX: S20.219A Contusion of unspecified front wall of thorax, initial encounter (principal); E11.621 Type 2 diabetes mellitus with foot ulcer; L97.509 Non-pressure chronic ulcer of other part of unspecified foot with unspecified severity; Z79.4 Long term (current) use of insulin; Z88.0 Allergy status to penicillin; W20.8XXA Other cause of strike by thrown, projected or falling object, initial encounter; W18.30XA Fall on same level, unspecified, initial encounter; Y92.812 Truck as the place of occurrence of the external cause; Y99.0 Civilian activity done for income or pay
CPT/HCPCS: 71046

== ENCOUNTER 2022-09-17 11:21 | Emergency (ER) | payer MEDICARE, MEDICAID ==
[~2022-09-17] VITALS: Ht 167 cm; Wt 100.0 kg
[~2022-09-17 11:21] MED LIST changes: -INSU100I29 SQ; +INSU100I30 SQ
[2022-09-17 11:26] VITALS: BP 149/91
--- NOTE | 2022-09-17 11:48 | ED Integumentary General ---
General Chief Complaint: Skin/Wound Problems Stated Complaint: ABD INFECTION Nursing Triage Note: PT AMB TO RM 5 PT CO OF POSSIBLE WOUND INFECTION FROM INFUSION SET FOR INSULIN PUMP. PT HAS AREA ON ABD REDDEND, PAINFUL AND WARM TO TOUCH. PT DENIES DRAINAGE AT THIS X. Source: patient Exam Limitations: no limitations History of Present Illness Date Seen by Provider: September 17, 2022 Time Seen by Provider: 11:30 Initial Comments 52-year-old male presents the ED with reports of redness, swelling, pain to right abdomen. He uses an insulin pump, states that he accidentally left the pump in place for 6 days instead of 3 days. He removed it 3 days ago after had been in place for 6 days, states it was painful, noticed redness as soon as he removed it. Denies drainage from the area. States that it is painful even when his T-shirt touches it. Denies fevers, chest pain, shortness of air, nausea, vomiting. He is also requesting that I assess his ears. States that he feels like there is fluid in the left ear, hears a popping sound at times. Denies any drainage from the ear or pain. He is a type I diabetic, and has had a kidney transplant. Allergies and Home Medications Allergies Coded Allergies: codeine (Verified Allergy, Intermediate, NAUSEA, 04/27/15) pt states he has nausea and vomiting from Codeine Penicillins (Unverified Allergy, Mild, 04/24/15) oxycodone (Unverified Adverse Reaction, Unknown, 11/22/15) Patient Home Medication List Home Medication List Reviewed: Yes Albuterol Sulfate (Ventolin Hfa) 1 Puff Puff, 1 PUFF INH Q4H, (Reported) Entered as Reported by: PEDRO ALCANTAR on 03/29/22 1354 Albuterol Sulfate (Ventolin Hfa) 1 Puff Puff, 2 PUFF INH Q4H, (Reported) Entered as Reported by: PEDRO ALCANTAR on 03/29/22 1355 Apixaban (Eliquis) 2.5 Mg Tablet, 2.5 MG PO BID, (Reported) Entered as Reported by: PEDRO ALCANTAR on 03/29/22 1355 Apixaban (Eliquis) 5 Mg Tablet, 5 MG PO BID, (Reported) Entered as Reported by: PEDRO ALCANTAR on 03/29/22 1355 Aspirin (Aspir 81) 81 Mg Tablet.dr, 81 MG PO DAILY, (Reported) Entered as Reported by: GABRIEL OLIVAREZ on 09/21/19 1031 Buprenorphine HCl (Belbuca) 75 Mcg Film, 75 MCG BC DAILY, (Reported) Entered as Reported by: PEDRO ALCANTAR on 03/29/22 1354 Buprenorphine HCl (Belbuca) 150 Mcg Film, 150 MCG BC DAILY, (Reported) Entered as Reported by: PEDRO ALCANTAR on 03/29/22 1354 Buprenorphine HCl (Belbuca) 300 Mcg Film, 300 MCG BC DAILY, (Reported) Entered as Reported by: PEDRO ALCANTAR on 03/29/22 1354 Docusate Sodium (Docusate Sodium) 100 Mg Capsule, 100 MG PO DAILY, (Reported) Entered as Reported by: PEDRO ALCANTAR on 03/29/22 1354 Doxycycline Hyclate (Doxycycline Hyclate) 100 Mg Tablet, 100 MG PO BID Prescribed by: ELIZABETH NICOLAS on 07/14/22 1706 Ergocalciferol (Vitamin D2) (Vitamin D2) 1,250 Mcg Capsule, 1,250 MCG PO Fr, (Reported) Entered as Reported by: GABRIEL OLIVAREZ on 09/21/19 1031 Fluoxetine HCl (Fluoxetine HCl) 40 Mg Capsule, 40 MG PO DAILY, (Reported) Entered as Reported by: GABRIEL OLIVAREZ on 09/21/19 1031 Hydrocodone/Acetaminophen (Hydrocodone-Acetamin 10-325 mg) 1 Each Tablet, 1 EACH PO Q6H PRN for PAIN-SEVERE (8-10) Prescribed by: OLIVIA ROBERTSON on 02/26/211816 Insulin Aspart (Novolog) 100 Unit/1 Ml Susp, per pump, (Reported) Entered as Reported by: JUDY COMBS on 10/14/17 194 Liraglutide (Victoza 2-Zhang) 0.6 Mg/0.1 Ml (18 Mg/3 Ml) Pen.injctr, 0.6 MG SQ DAILY, (Reported) Entered as Reported by: PEDRO ALCANTAR on 03/29/22 1355 Mycophenolate Sodium (Myfortic) 180 Mg Tablet.dr, 720 MG PO BID, (Reported) Entered as Reported by: GABRIEL OLIVAREZ on 09/21/19 1031 Nifedipine (Nifedipine ER) 30 Mg Tab.er.24, 30 MG PO DAILY, (Reported) Entered as Reported by: EPDRO ALCANTAR on 03/29/22 1355 Omeprazole (Omeprazole) 40 Mg Capsule.dr, 40 MG PO DAILY, (Reported) Entered as Reported by: GABRIEL OLIVAREZ on 09/21/19 1031 Oseltamivir Phosphate (Oseltamivir Phosphate) 30 Mg Capsule, 30 MG PO DAILY, (Reported) Entered as Reported by: PEDRO ALCANTAR on 03/29/22 1355 Prednisone (Prednisone) 5 Mg Tablet, 5 MG PO DAILY, (Reported) Entered as Reported by: GABRIEL OLIVAREZ on 09/21/19 1031 Pregabalin (Lyrica) 75 Mg Capsule, 75 MG PO TID, (Reported) Entered as Reported by: GABRIEL OLIVAREZ on 10/30/15 1218 Sulfamethoxazole/Trimethoprim (Bactrim Ds Tablet) 1 Each Tablet, 1 EACH PO BID Prescribed by: Tameka Monahan on 09/17/22 1149 Tacrolimus (Prograf) 1 Mg Capsule, 5 MG PO BID, (Reported) Entered as Reported by: GABRIEL OLIVAREZ on 09/21/19 1031 Tacrolimus (Envarsus Xr) 1 Mg Tab.er.24h, 1 MG PO DAILY, (Reported) Entered as Reported by: PEDRO ALCANTAR on 03/29/22 1355 Tamsulosin HCl (Flomax) 0.4 Mg Cap, 0.4 MG PO HS, (Reported) Entered as Reported by: GABRIEL OLIVAREZ on 09/21/19 1031 Tramadol HCl (Tramadol HCl) 50 Mg Tablet, 50 MG PO Q6H PRN for PAIN-MILD (1-4), (Reported) Entered as Reported by: GABRIEL OLIVAREZ on 09/21/19 1031 Trazodone HCl (Trazodone HCl) 100 Mg Tablet, 100 MG PO HS, (Reported) Entered as Reported by: JUDY COMBS on 10/14/17 1946 Valganciclovir HCl (Valcyte) 450 Mg Tab, 450 MG PO MoTh, (Reported) Entered as Reported by: GABRIEL OLIVAREZ on 09/21/19 1031 Review of Systems Review of Systems Constitutional: see HPI Past Zmiulsj-Qngsnu-Gmwsnj Hx Patient Social History Tobacco Use?: No Substance use?: No Alcohol Use?: No Pt feels they are or have been: No Immunizations Up To Date Tetanus Booster (TDap): Less than 5yrs PED Vaccines UTD: Yes Influenza Vaccine Up-to-Date: No; Not Current First/Initial COVID19 Vaccinat: 2020 Second COVID19 Vaccination Luis Miguel: 2020 Third COVID19 Vaccination Date: 2020 Seasonal Allergies Seasonal Allergies: No Past Medical History Surgery/Hospitalization HX: PMH: KIDNEY FAILURE, , KIDNEY TRANSPLANTSX: R KNEE, GALLBLADDER, R KIDNEY STENT/BALLOON, DIALYSIS SHUNT L ARM,KIDNEY TRANSPLANT, LEFT GREAT TOE AMPUTATION FOR OSTEOMYELITIS Surgeries: Yes (Fistula left upper arm) Abdominal, Amputation, Gallbladder, Kidney Transplant, Orthopedic, Tonsillectomy, Tracheostomy, Vascular Surgery Respiratory: Yes (ON VENT AND TRACH WITH SEVERE DKA IN 2014) Pneumonia, Sleep Apnea, COPD Currently Using CPAP: Yes Currently Using BIPAP: Yes Cardiac: Yes Chronic Edema/Swelling, Heart Murmur, Hypertension, Peripheral Vascular, Valvular Heart Disease Neurological: Yes (BILATERAL FOOT DROP; NEUROPATHY BILAT HANDS AND FEET) Neuropathy Reproductive Disorders: No Sexually Transmitted Disease: No HIV/AIDS: No Genitourinary: Yes (RENAL TRANSPLANT) Renal Failure, Dialysis Gastrointestinal: Yes (PERITONITIS; HAD FEEDING TUBE WITH SEVERE DKA IN 2014) Abdominal Hernia, Gastroesophageal Reflux, Gall Bladder Disease Musculoskeletal: Yes (BILATERAL FOOT DROP;LEFT GREAT TOE AMPUTATION FOR OSTEOMYELITIS) Amputee, Foot Drop, Chronic Back Pain Endocrine: Yes (POOR CONTROL) Diabetes, Insulin dep HEENT: Yes Loss of Vision: Left Hearing Impairment: Denies Cancer: No Psychosocial: Yes Depression Integumentary: Yes (DIABETIC FOOT ULCER; OSTEOMYELITIS) Blood Disorders: No Adverse Reaction/Blood Tranf: No Family Medical History FHx: emphysema 19 FATHER Physical Exam Vital Signs Vital Signs - First Documented 09/17/22 11:26 Temp 36.5 Pulse 88 Resp 16 B/P (MAP) 149/91 (110) Pulse Ox 98 Capillary Refill : Less Than 3 Seconds General Appearance: WD/WN, no apparent distress HEENT: TM abnormal (R) (Mildly red, landmarks visible, does not appear infected, fluid behind TM), TM abnormal (L) (Mildly red, landmarks visible, does not appear infected, fluid behind TM) Neck: supple, normal inspection Cardiovascular: regular rate, rhythm Respiratory: lungs clear, normal breath sounds, no respiratory distress, no accessory muscle use Extremities: normal range of motion, normal inspection Neurologic/Psychiatric: alert, normal mood/affect Skin: warm/dry, other (Abscess to right abdomen, large area of erythema, no area of fluctuation, large area of induration. Ultrasound used to assess abscess, no area of drainable fluid collection.) Skin Problem Location: torso Skin Problem Character: abscess Progress/Results/Core Measures Results/Orders Vital Signs/I&O 09/17/22 11:26 Temp 36.5 Pulse 88 Resp 16 B/P (MAP) 149/91 (110) Pulse Ox 98 Blood Pressure Mean: 110 Progress Progress Note : Progress Note Patient seen and evaluated, resting comfortably in bed, no acute distress. Based on exam and symptoms, this is likely an abscess. Ultrasound was used to assess for drainable collection of fluid, none was observed under ultrasound. Will start patient on antibiotic and have him return in 2 to 3 days or see his primary on Tuesday to have it reevaluated. The complaint of fluid on patient's ears is likely due to allergies. Patient instructed to get nmdg-bqv-jigokkn Claritin or Zyrtec and Flonase. Discharge instructions return precautions provided. Departure Impression Primary Impression: Abscess Additional Impression: Seasonal allergies Disposition: 01 HOME, SELF-CARE Condition: Stable Departure-Patient Inst. Decision time for Depature: 11:47 Referrals: SARI HARRELL MD (PCP/Family) Primary Care Physician Patient Instructions: Skin Abscess Add. Discharge Instructions: Complete full course of antibiotic as directed, even if symptoms improve. Do warm compresses to wound several times a day. Return in 2 to 3 days or see your primary on Tuesday for reevaluation of your wound. Obtain uueo-uye-tikavci Claritin or Zyrtec and take once daily for allergies. Obtain Flonase etap-csg-uaqwzio and use once daily. Return for fever, increasing redness, or any other new, concerning, or worsening symptoms. All discharge instructions reviewed with patient and/or family. Voiced unde rstanding. Scripts Sulfamethoxazole/Trimethoprim (Bactrim Ds Tablet) 1 Each Tablet 1 EACH PO BID for 7 Days, #14 TAB 0 Refills Prov: TAMEKA MONAHAN APRN 09/17/22 TAMEKA MONAHAN APRN September 17, 2022 11:48
[2022-09-17] MEDS ORDERED: SULF1TAB38 PO (11:49)
== END 2022-09-17 11:58 | disposition home or self-care (01) ==
LOC: EDUNIT# 11:21 → ER 11:23
DX: L02.211 Cutaneous abscess of abdominal wall (principal); J30.2 Other seasonal allergic rhinitis; E10.621 Type 1 diabetes mellitus with foot ulcer; L97.509 Non-pressure chronic ulcer of other part of unspecified foot with unspecified severity; Z88.0 Allergy status to penicillin
CPT/HCPCS: 99282